=== PATIENT | female | born 1950 | race Caucasian/White ===

== ENCOUNTER 2021-10-03 06:30 | Outpatient (CLI) | payer MEDICARE, OTHER, SELFPAY | END 2021-10-03 06:31 | disposition home or self-care (01) | PROVIDERS: PCP Internal Medicine; Visit Provider Family Medicine | DX: M54.16 Radiculopathy, lumbar region (principal); M51.36 Other intervertebral disc degeneration, lumbar region | CPT/HCPCS: 64483; J1100; Q9966 ==

== ENCOUNTER 2021-10-13 13:42 | Outpatient (CLI) | payer MEDICARE, OTHER, SELFPAY ==
[2021-10-13 15:04] LABS: Cholesterol* 183 mg/dL (90-199)
[2021-10-13 15:05] LABS: HDL Cholesterol* 56 mg/dL (>=50); LDL Cholesterol Calculated 109 mg/dL (<100); Triglycerides* 91 mg/dL (40-149)
== END 2021-10-13 13:43 | disposition home or self-care (01) ==
LOC: NFLDREF 13:42
PROVIDERS: PCP Internal Medicine; Visit Provider Internal Medicine
DX: Z13.6 Encounter for screening for cardiovascular disorders (principal)
CPT/HCPCS: 80061

== ENCOUNTER 2021-12-29 12:54 | Outpatient (CLI) | payer MEDICARE, OTHER, SELFPAY ==
--- OUTSIDE RECORDS SUMMARY | 2022-01-02 14:24 | XMS_ITS | Encounter Summary ---
:1950 Author Organization [facility] Address [address] [place] [address] Care Team Providers Name Role Phone Unavailable Primary Care Provider Unavailable Reason for Visit Radiation Therapy (Routine) - Closed Specialty Diagnoses / Procedures Referred By Contact Refer red To Contact Diagnoses Malignant Neoplasm Of Lung Upper Lobe Or Bronchus Left (HCC) Aleta Santana M.D. [facility] Procedures Prior Auth Rad Tx [place] IMRT COMPLEX [address] [place] [phone] Referral ID Status Reason Start Date Expiration Date Visits Requ ested Visits Authorized [id number] Closed 12/23/2020 12/11/2021 30 30 Encounter Details Date Type Department Care Team Description 01/23/2021 Hospital Encounter Department of Radiation John Santana I., Oncology [place] [address] [place] [address] 1821 [place] [phone] [phone] Social History Tobacco Use Types Packs/Day Years Used Date Smoking Tobacco: Never Assessed Alcohol Habits Answer Date Recorded How often do you have a drink containing alcohol? Never 12/24/2020 How many drinks containing alcohol do you have on a typical Not asked day when you are drinking? How often do you have six or more drinks on one occasion? No t asked Social Isolation Answer Date Recorded In a typical week, how many times do you More than three josé es a week 12/24/2020 talk on the phone with family, friends, or neighbors? How often do you get together with friends Once a week 12/24/2020 or relatives? How often do you attend temple or More than 4 times per year 12/24/2020 episcopalian services? Do you belong to any clubs or No 12/24/2020 organizations such as temple groups, unions, fraternal or athletic groups, or school groups? How often do you attend meetings of the Never 12/24/2020 clubs or organizations you belong to? Are you now , , , 12/24/2020 , never or living with a partner? Physical Activity Answer Date Recorded On average, how many days per week do you engage in moderate to 3 days 12/24/2020 strenuous exercise (like walking fast, running, jogging, dancing, swimming, biking, or other activities that cause a light or heavy sweat)? On average, how many minutes do you engage in exercise at th is 20 min 12/24/2020 level? Stress Answer Date Recorded Do you feel stress - tense, restless, nervous, or anxious, N ot at all 12/24/2020 or unable to sleep at night because your mind is troubled all the time - these days? Financial Resource Strain Answer Date Recorded How hard is it for you to pay for the very basics like Not h noreen at all 12/24/2020 food, housing, medical care, and heating? Food Insecurity Answer Date Recorded Within the past 12 months, you worried that your food would Never true 12/24/2020 run out before you got money to buy more. Within the past 12 months, the food you bought just didn't N ever true 12/24/2020 last and you didn't have money to get more. Transportation Needs Answer Date Recorded In the past 12 months, has lack of transportation kept you f rom No 12/24/2020 medical appointments or from getting medications? In the past 12 months, has lack of transportation kept you f rom No 12/24/2020 meetings, work, or getting things needed for daily living? Housing Stability Answer Date Recorded In the last 12 months, was there a time when you were not ab le No 12/24/2020 to pay the mortgage or rent on time? In the last 12 months, how many places have you lived? 1 12/24/2020 In the last 12 months, was there a time when you did not hav e a No 12/24/[address] to sleep or slept in a half-way (including now)? Education Answer Date Recorded What is the highest level of school Associate degree: [employer], 12/20/2020 you have completed or the highest technical, or vocational p heather degree you have received? Sex Assigned at Date Recorded Female 12/06/2020 4:25 PM CDT documented as of this encounter Medications at Time of Discharge Medication Sig Dispensed Refills Start Date End Date amoxicillin (AMOXIL) 500 mg 0 12/13/19 21 capsule dexAMETHasone (DECADRON) 4 Currently taking qd 0 12/19/2020 mg tablet odstfvqoqdtmamy-btmazqjhp-f Apply 15 mL to the 480 mL 0 01/16/2021 ntacid (MAGIC MOUTHWASH) mouth or throat 4 1:1:1 (four) times a day before meals and bedtime. Swish and swallow. ibuprofen (ADVIL,MOTRIN) Take 800 mg by 0 014 200 mg tablet mouth. lidocaine-prilocaine (EMLA) 0 12/25/19 21 2.5-2.5 % cream LORazepam (ATIVAN) 0.5 mg 0 12/18/2020 tablet multivitamin (multivitamin) Take 1 tablet by 0 tablet mouth daily. prochlorperazine 0 12/18/2020 (COMPAZINE) 5 mg tablet sennosides (senna) 8.6 mg Take 8.6 mg by mouth 0 tablet daily. documented as of this encounter Plan of Treatment Not on filedocumented as of this encounter Visit Diagnoses Not on filedocumented in this encounter
--- OUTSIDE RECORDS SUMMARY | 2022-01-02 14:24 | XMS_ITS | Encounter Summary ---
:1950 Author Organization [facility] Address [address] [place] [address] Care Team Providers Name Role Phone Unavailable Primary Care Provider Unavailable Reason for Visit Radiation Therapy (Routine) - Closed Specialty Diagnoses / Procedures Referred By Contact Refer red To Contact Diagnoses Malignant Neoplasm Of Lung Upper Lobe Or Bronchus Left (HCC) Aleta Santana M.D. [facility] Procedures Prior Auth Rad Tx [place] IMRT COMPLEX [address] [place] [phone] Referral ID Status Reason Start Date Expiration Date Visits Requ ested Visits Authorized [id number] Closed 12/23/2020 12/11/2021 30 30 Encounter Details Date Type Department Care Team Description 01/14/2021 Hospital Encounter Department of Radiation John Santana I., [place]cology [place] [address] [place] [address] 1821 [place] [phone] Social History Tobacco Use Types Packs/Day Years [...] or relatives? How often do you attend voodoo or More than 4 times per year 12/24/2020 moravian services? Do you belong to any clubs or No 12/24/2020 organizations such as voodoo groups, unions, fraternal or athletic groups, or [...] place to sleep or slept in a assisted (including now)? Education Answer Date Recorded What [...] Currently taking qd 0 12/19/2020 mg tablet ibuprofen (ADVIL,MOTRIN) Take 800 mg by 0 [...]
--- OUTSIDE RECORDS SUMMARY | 2022-01-02 14:24 | XMS_ITS | Encounter Summary ---
:1950 Author Organization [facility] Address [address] [place] [address] Care Team Providers Name Role Phone Unavailable Primary Care Provider Unavailable Reason for Visit Radiation Therapy (Routine) - Closed Specialty Diagnoses / Procedures Referred By Contact Refer red To Contact Diagnoses Malignant Neoplasm Of Lung Upper Lobe Or Bronchus Left (HCC) Aleta Santana M.D. [facility] Procedures Prior Auth Rad Tx [place] IMRT COMPLEX [address] [place] [phone] Referral ID Status Reason Start Date Expiration Date Visits Requ ested Visits Authorized [id number] Closed 12/23/2020 12/11/2021 30 30 Encounter Details Date Type Department Care Team Description 01/29/2021 Hospital Encounter Department of Radiation John Santana I., [place]cology [place] [address] [place] [address] 1821 [place] [phone] Social History Tobacco Use Types Packs/Day Years [...] or relatives? How often do you attend adventism or More than 4 times per year 12/24/2020 christian services? Do you belong to any clubs or No 12/24/2020 organizations such as adventism groups, unions, fraternal or athletic groups, or [...] place to sleep or slept in a retirement (including now)? Education Answer Date Recorded What [...] Currently taking qd 0 12/19/2020 mg tablet xxfinutyeuxhbfv-kcumlqjdh-h Apply 15 mL to the 480 mL [...]
--- OUTSIDE RECORDS SUMMARY | 2022-01-02 14:24 | XMS_ITS | Encounter Summary ---
:1950 Author Organization [facility] Address [address] [place] [address] Care Team Providers Name Role Phone Unavailable Primary Care Provider Unavailable Reason for Visit Radiation Therapy (Routine) - Closed Specialty Diagnoses / Procedures Referred By Contact Refer red To Contact Diagnoses Malignant Neoplasm Of Lung Upper Lobe Or Bronchus Left (HCC) Aleta Santana M.D. [facility] Procedures Prior Auth Rad Tx [place] IMRT COMPLEX [address] [place] [phone] Referral ID Status Reason Start Date Expiration Date Visits Requ ested Visits Authorized [id number] Closed 12/23/2020 12/11/2021 30 30 Encounter Details Date Type Department Care Team Description 01/31/2021 Hospital Encounter Department of Radiation John Santana I., [place]cology [place] [address] [place] [address] 1821 [place] [phone] [phone] Social History Tobacco Use Types Packs/Day Years [...] or relatives? How often do you attend anabaptist or More than 4 times per year 12/24/2020 jew services? Do you belong to any clubs or No 12/24/2020 organizations such as anabaptist groups, unions, fraternal or athletic groups, or [...] place to sleep or slept in a intermediate (including now)? Education Answer Date Recorded What [...] Currently taking qd 0 12/19/2020 mg tablet csucdbzykecxgmt-tblsikkae-g Apply 15 mL to the 480 mL [...]
--- OUTSIDE RECORDS SUMMARY | 2022-01-02 14:24 | XMS_ITS | Encounter Summary ---
:1950 Author Organization [facility] Address [address] [place] [address] Care Team Providers Name Role Phone Unavailable Primary Care Provider Unavailable Reason for Referral Radiation Therapy (Routine) - Closed Specialty Diagnoses / Procedures Referred By Contact Refer red To Contact Diagnoses Malignant Neoplasm Of Lung Upper Lobe Or Bronchus Left (HCC) Aleta Santana M.D. [facility] Procedures Management Visit [address] [place] [phone] Referral ID Status Reason Start Date Expiration Date Visits Requ ested Visits Authorized [id number] Closed 12/11/2020 12/11/2021 10 10 Reason for Visit Radiation Therapy (Routine) - Closed Specialty Diagnoses / Procedures Referred By Contact Refer red To Contact Diagnoses Malignant Neoplasm Of Lung Upper Lobe Or Bronchus Left (HCC) Altea Santana M.D. [facility] Procedures Management Visit [address] [place] [phone] Referral ID Status Reason Start Date Expiration Date Visits Requ ested Visits Authorized [id number] Closed 12/11/2020 12/11/2021 10 10 Encounter Details Date Type Department Care Team Description 01/16/2021 Hospital Encounter Department of Aleta Santana Neoplasm Radiation Oncology [place] Of Lung Upper Lobe in [place], [address] [facility] Or Bronchus Left [place], [place] (HCC) [address] [facility] [address] [place], [place] [phone] (Work) [phone] Social History Tobacco Use Types Packs/Day Years [...] or relatives? How often do you attend mosque or More than 4 times per year 12/24/2020 mormon services? Do you belong to any clubs or No 12/24/2020 organizations such as mosque groups, unions, fraternal or athletic groups, or [...] place to sleep or slept in a nursing home (including now)? Education Answer Date Recorded What [...] Currently taking qd 0 12/19/2020 mg tablet tllkpobnazqdexq-xtknzbjca-x Apply 15 mL to the 480 mL [...] tablet daily. documented as of this encounter Progress Notes Aleta Santana M.D. - 01/16/2021 3:30 PM CDT ATTESTATION FOR MANAGEMENT VISIT I saw and evaluated the patient and participated in the hayes portions of the service as noted below. I reviewed the documentation of Ms. Minnie Love RN and agree with the findings and plan. The patient appears well on exam. We will continue with radiation as planned and monitor weekly. She will try Magic Mouthwash and if this doesn't help she will let us know tomorrow. Aleta Santana M.D., 01/16/2021 SUBJECTIVE REASON FOR VISIT Evaluation for side effects while receiving radiation treatment for 1. 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 Santana HISTORY OF PRESENT ILLNESS Maria Del Carmen Wells is a 70 y.o. female with metastatic non small cell lung cancer, metastatic to brain. She is now undergoing radiotherapy to the tumor in the left upper lung and hilum. She is receiving concurrent paclitaxel and carboplatin weekly under the care of Dr. Box at [facility]. Treatment Course: 1x L lung Plan ID Fractions Dose / Fraction (cGy) Dose Treated (cGy) Dose Planned (cGy) First Treatment Last Treatment Elapsed Days F1 L lung 200 3800 6000 12/23/2020 01/16/2021 Course Summary 12/23/2020 01/16/2021 24 The patient was seen and examined today with Dr. Santana. The patient reports an increase in heart burn that is keeping her from getting a good night rest. When she is awake in the night she tries to take TUMS but has noticed that this is not helping any longer. She does not know how many TUMS she takes and reports that she has a bowl at her bedside and takes them as needed. She continues to have hiccups with the heartburn as well. She rates esophagal pain at a 4 out of 10. She denies nausea, vomiting, neurological changes, shortness of breath, fevers or chills. She is taking tylenol once in the morning for back/shoulder pain. She has started a soft blanddiet and is now adding protein shakes. PATIENT REPORTED SYMPTOM SCREEN PAIN (Scale: 0 = no pain; 10 = worst pain you can imagine): 4 OBJECTIVE PHYSICAL EXAM General: Alert and oriented in no apparent distress. 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 Santana to help with the heartburn. Dr. Santana will send prescription for Magic Mouthwash to patients preferred pharmacy. Patient was encouraged to take the Magic Mouthwash prior to meals and at bedtime to help with the heartburn as well. She can trial 1000 mg of Extra Strength Tylenol every 6 hours as needed (wait 30 minutes and then have her meal) for more optimal pain improvement. She was encouaged to continue to drink fluids throughout the day and supplemental shakes as needed to meet caloric needs. Patient was also encouraged to continue light exercise for 30 minutes a day and limit length of naps to help with more restful night time sleep. Chemotherapy was administered today. She will contact us with any questions or concerns. We will continue with radiation treatment as planned. Signed by: Minnie Love R.N. 01/16/2021 4:15 PM CDT documented in this encounter Plan of Treatment Scheduled Orders Name Type Priority Associated Diagnoses Order S chedule Management Visit Radiation Oncology Routine Malignant Neoplasm Once for 1 Of Lung Upper Lobe Occurrenc es starting Or Bronchus Left 01/16/2021 until (HCC) 01/16/2021 documented as of this encounter Visit Diagnoses Diagnosis 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
--- OUTSIDE RECORDS SUMMARY | 2022-01-02 14:24 | XMS_ITS ---
:1950 Author Organization [facility] Address [address] [place] [address] Care Team Providers Name Role Phone Unavailable Primary Care Provider Unavailable Active Problems Problem Noted Date Malignant Neoplasm Of Lung Upper Lobe Or Bronchus Left 12/10/2020 Cancer Staging: Clinical stage from 11/05: Stage IV (cT2a, cN2, cM1) - Unsigned Current Oncology Plans No current plan information found. Past Plans No past plan information found. Radiation Treatments Plan Last Treated Elapsed Days Fractions Prescribed Prescribed Total On Treated Fraction Dose Dose F1 L lung 01/31/2021 39 30 of 30 200 cGy 6,000 cGy Reference Point Last Treated On Elapsed Days Session Dose Total Dos e [id number] 01/31/2021 39 200 cGy 6,000 cGy
--- OUTSIDE RECORDS SUMMARY | 2022-01-02 14:24 | XMS_ITS | Encounter Summary ---
:1950 Author Organization [facility] Address [address] [place] [address] Care Team Providers Name Role Phone Unavailable Primary Care Provider Unavailable Reason for Visit Radiation Therapy (Routine) - Closed Specialty Diagnoses / Procedures Referred By Contact Refer red To Contact Diagnoses Malignant Neoplasm Of Lung Upper Lobe Or Bronchus Left (HCC) Aleta Santana M.D. [facility] Procedures Prior Auth Rad Tx [place] IMRT COMPLEX [address] [place] [phone] Referral ID Status Reason Start Date Expiration Date Visits Requ ested Visits Authorized [id number] Closed 12/23/2020 12/11/2021 30 30 Encounter Details Date Type Department Care Team Description 01/24/2021 Hospital Encounter Department of Radiation John Santana I., [place]cology [place] [address] [place] [address] 1821 [place] [phone] [phone] Social History Tobacco Use Types Packs/Day Years [...] or relatives? How often do you attend confucianist or More than 4 times per year 12/24/2020 baptist services? Do you belong to any clubs or No 12/24/2020 organizations such as confucianist groups, unions, fraternal or athletic groups, or [...] Currently taking qd 0 12/19/2020 mg tablet waicpwxtkbptgbv-vzgejafup-v Apply 15 mL to the 480 mL [...]
--- OUTSIDE RECORDS SUMMARY | 2022-01-02 14:24 | XMS_ITS | Encounter Summary ---
:1950 Author Organization [facility] Address [address] [place] [address] Care Team Providers Name Role Phone Unavailable Primary Care Provider Unavailable Reason for Visit Radiation Therapy (Routine) - Closed Specialty Diagnoses / Procedures Referred By Contact Refer red To Contact Diagnoses Malignant Neoplasm Of Lung Upper Lobe Or Bronchus Left (HCC) Aleta Santana M.D. [facility] Procedures Prior Auth Rad Tx [place] IMRT COMPLEX [address] [place] [phone] Referral ID Status Reason Start Date Expiration Date Visits Requ ested Visits Authorized [id number] Closed 12/23/2020 12/11/2021 30 30 Encounter Details Date Type Department Care Team Description 01/17/2021 Hospital Encounter Department of Radiation John Santana I., [place] [address] [place] [address] 1821 [place] [phone] [phone] Social History Tobacco Use Types Packs/Day Years [...] or relatives? How often do you attend zoroastrianism or More than 4 times per year 12/24/2020 sabianist services? Do you belong to any clubs or No 12/24/2020 organizations such as zoroastrianism groups, unions, fraternal or athletic groups, or [...] place to sleep or slept in a long-term (including now)? Education Answer Date Recorded What [...] Currently taking qd 0 12/19/2020 mg tablet [id number]-stqdgqntd-e Apply 15 mL to the 480 mL [...]
--- OUTSIDE RECORDS SUMMARY | 2022-01-02 14:24 | XMS_ITS | Encounter Summary ---
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 [facility] Procedures Prior Auth Rad Tx [place] IMRT COMPLEX [address] [place] [phone] Referral ID Status Reason Start Date Expiration Date Visits Requ ested Visits Authorized [id number] Closed 12/23/2020 12/11/2021 30 30 Encounter Details Date Type Department Care Team Description 01/10/2021 Hospital Encounter Department of Radiation John Santana I., [place] [address] [place] [address] 1821 [place] [phone] [phone] Social History Tobacco Use Types Packs/Day Years [...] or relatives? How often do you attend sabianist or More than 4 times per year 12/24/2020 pentecostalism services? Do you belong to any clubs or No 12/24/2020 organizations such as sabianist groups, unions, fraternal or athletic groups, or [...] place to sleep or slept in a chcf (including now)? Education Answer Date Recorded What [...]
--- OUTSIDE RECORDS SUMMARY | 2022-01-02 14:24 | XMS_ITS | Encounter Summary ---
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 [facility] Procedures Management Visit [address] [place] [phone] Referral ID Status Reason Start Date Expiration Date Visits Requ ested Visits Authorized [id number] Closed 12/11/2020 12/11/2021 10 10 Encounter Details Date Type Department Care Team Description 01/14/2021 Hospital Encounter Department of Aleta Santana Neoplasm Radiation Oncology Catalina Muhammad Of Lung Upper Lobe in [place], [address] [place] [address] Or Bronchus Left [place], [place] (HCC) [address] [facility] [address] [place], [place] [phone] (Work) [phone] Social History Tobacco Use Types Packs/Day Years [...] or relatives? How often do you attend mu-ism or More than 4 times per year 12/24/2020 nondenominational services? Do you belong to any clubs or No 12/24/2020 organizations such as mu-ism groups, unions, fraternal or athletic groups, or [...] place to sleep or slept in a prison (including now)? Education Answer Date Recorded What is the highest level of school Associate degree: [employer], 12/20/2020 you have completed or the highest technical, or vocational p heather degree you have received? Sex Assigned at Date Recorded Female 12/06/2020 4:25 PM CDT documented as of this encounter Last Filed Vital Signs Vital Sign Reading Time Taken Comments Blood Pressure 115/60 01/14/2021 11:04 AM CDT Pulse 57 01/14/2021 11:04 AM CDT Temperature 36.2 ??C (97.1 ??F) 01/14/2021 11:04 AM CDT Respiratory Rate - - Oxygen Saturation - - Inhaled Oxygen Concentration - - Weight 89.2 kg (196 lb 10.4 oz) 01/14/2021 11:04 AM CDT Height - - Body Mass Index 35.06 12/11/2020 2:01 PM CDT documented in this encounter Medications at Time of Discharge [...] encounter Progress Notes Aleta Santana M.D. - 01/14/2021 11:00 AM CDT ATTESTATION FOR MANAGEMENT VISIT I saw and evaluated the patient and participated in the hayes portions of the service as noted below. I reviewed the documentation of Ms. Pat Hendrickson RN and agree with the findings and plan. The patient appears well on exam. We will continue with radiation as planned and monitor weekly. Aleta Santana M.D., 01/14/2021 SUBJECTIVE REASON FOR VISIT Evaluation for side [...] under the care of Dr. Box at [facility]. Treatment Course: 1x L lung Plan ID Fractions Dose / Fraction (cGy) Dose Treated (cGy) Dose Planned (cGy) First Treatment Last Treatment Elapsed Days F1 L lung 200 3400 6000 12/23/2020 01/14/2021 Course Summary 12/23/2020 01/14/2021 The patient was seen and examined today with Dr. Santana. The patient reports 0 out of 10 headache that is focused behind the right eye. Headache has improvedoverall since starting Dexamethasone. She is now down 2 mg daily. She denies nausea, vomiting, neurological changes, shortness of breath, fevers or chills.. She notices occasional heartburn/hiccups that is being well managed with TUMS. She rates esophagal pain at a 3 out of 10. She is not taking pain medicine at this time. She is cutting her food well, chewing well and taking in softer foods. She does report decrease in bilateral hand strength over the past few weeks. PATIENT REPORTED SYMPTOM SCREEN FATIGUE (Scale: 0 = no fatigue; 10 = worst fatigue you can imagine): 3 PAIN (Scale: 0 = no pain; 10 = worst pain you can imagine): ok OVERALL QUALITY OF LIFE (Scale: 0 = as bad as can be; 10 = as good as can be): 10 OBJECTIVE BP 115/60 (BP Location: Right arm, Patient Position: Sitting, Cuff Size: Small) Pulse (!) 57 Temp 36.2 ??C (Temporal) Wt 89.2 kg BMI 35.06 kg/m?? PHYSICAL EXAM General: Alert and oriented in no apparent distress. ASSESSMENT / PLAN #1 Stage IV (cT2a, [...] 2021 along with weekly paclitaxel and carboplatin Patient's weight remains stable. She can trial 1000 mg of Extra Strength Tylenol every 6 hours as needed (wait 30 minutes and then have her meal) for more optimal pain improvement. Chemotherapy is administered on . She will contact us with any questions or concerns. We will continue with radiation treatment as planned. Signed by: Pat Hendrickson R.N. 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
--- OUTSIDE RECORDS SUMMARY | 2022-01-02 14:24 | XMS_ITS | Encounter Summary ---
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 [facility] Procedures Management Visit [address] [place] [address] [phone] Referral ID Status Reason Start Date Expiration Date Visits Requ ested Visits Authorized [id number] Closed 12/11/2020 12/11/2021 10 10 Encounter Details Date Type Department Care Team Description 01/29/2021 Hospital Encounter Department of Aleta Santana Neoplasm Radiation Oncology Catalina Muhammad Of Lung Upper Lobe in [place], [address] [place] [address] Or Bronchus Left [place], [place] (HCC) 1821 [facility] [address] [place], [place] [phone] (Work) [phone] Social History Tobacco Use Types Packs/Day Years [...] or relatives? How often do you attend evangelical or More than 4 times per year 12/24/2020 gnosticism services? Do you belong to any clubs or No 12/24/2020 organizations such as evangelical groups, unions, fraternal or athletic groups, or [...] Sign Reading Time Taken Comments Blood Pressure 131/67 01/29/2021 11:10 AM CINDER CRUSHER OPERATOR Pulse 71 01/29/2021 11:10 AM CINDER CRUSHER OPERATOR Temperature 36.3 ??C (97.3 ??F) 01/29/2021 11:10 AM CINDER CRUSHER OPERATOR Respiratory Rate - - Oxygen Saturation - - Inhaled Oxygen Concentration - - Weight 91.7 kg (202 lb 2.6 oz) 01/29/2021 11:10 AM CINDER CRUSHER OPERATOR Height - - Body Mass Index 36.05 12/11/2020 2:01 PM CDT documented in this encounter Medications at Time of Discharge Medication Sig Dispensed Refills Start Date End Date amoxicillin (AMOXIL) 500 mg 0 12/13/19 21 capsule dexAMETHasone (DECADRON) 4 Currently taking qd 0 12/19/2020 mg tablet qlqwcphpggbzoyk-oexojuahu-s Apply 15 mL to the 480 mL [...] encounter Progress Notes Aleta Santana M.D. - 01/29/2021 11:00 AM CST ATTESTATION FOR MANAGEMENT VISIT I saw and evaluated the patient and participated in the hayes portions of the service as noted below. I reviewed the documentation of Ms. Pat Hendrickson RN and agree with the findings and plan. The patient appears well on exam. We will continue with radiation as planned and we anticipate that she will complete this treatment. We anticipate that Maria Del Carmen Wells will complete radiation treatment as planned without interruptions. The course of treatment was tolerated well. The patient experienced toxicities of grade 1 esophagitis and fatigue during radiation treatment. Follow-up will be with Dr. Box. We will leave follow-ups with me on an as needed basis. Their questions were answered, and they were comfortable with this plan. Aleta Santana M.D., 01/29/2021 SUBJECTIVE REASON FOR VISIT Evaluation for side effects while receiving radiation treatment for 1. 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 Santana. HISTORY OF PRESENT ILLNESS Maria Del Carmen Wells is a 70 y.o. female with metastatic non small cell lung cancer, metastatic to brain. She is now undergoing radiotherapy to the tumor in the left upper lung and hilum. She is receiving concurrent paclitaxel and carboplatin weekly under the care of Dr. Box at [facility]. Treatment Course: 1x L lung Plan ID Fractions Dose / Fraction (cGy) Dose Treated (cGy) Dose Planned (cGy) First Treatment Last Treatment Elapsed Days F1 L lung 200 5600 6000 12/23/2020 01/29/2021 37 Course Summary 12/23/2020 01/29/2021 37 Her oncologic history was reviewed with the patient and her son and is as follows: 1. October 03, 2020 through October 06, 2020: ??The patient presented to the [facility] ED with a2 day history of painful red swollen right neck and cheek. ??CT scan of the neck demonstrated findings most compatible with extensive right-sided parotitis. ??There was also a spiculated mass within the left upper lobe measuring 21 x 26 mm, concerning for neoplasm. ??She was treated with IV vancomycinand ceftriaxone. ??She was discharged on oral antibiotics, Augmentin. 2. October 05, 2020: ??CT scan of the chest demonstrated a 2.4 x 2 cm soft tissue density nodule with spiculated margin in the left upper lobe. ??5 mm triangular shaped nodular density along the minor fissure. ??4 mm noncalcified subpleural nodule in the posterior lateral right lower lobe. ??Few mildly enlarged left hilar lymph nodes measuring up to 12 mm. ??No other enlarged lymph nodes. ??2.5 cm left renal cyst. ?? 3. October 11, 2020: ??PET-CT scan demonstrated an FDG avid spiculated nodule in the periphery left upper lobe tethering the visceral pleural measuring 2.2 x 1.5 cm (SUV max 13.2) with FDG avid left interlobar station 11/12L (SUV mas 17.4) and subaortic station 5 (SUV max 11.7) lymph nodes suspicious forleft upper lobe primary lung neoplasm with lymph node metastases. 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 4. October 23, 2020: ??Bronchoscopy was performed by Dr. Sheldon Dominguez. ??The trachea was of normal caliber. ??The bethanie was sharp. ??The tracheobronchial tree was examined and the bronchial mucosa and anatomy were normal. ??There were no lesions or secretions. ??Lymph node survey with EBUS was performed. ??EBUS- TBNA x 3 to a well-defined 1cm station 11R node, EBUS-TBNA x 4 to a 1.5cm oblong station7 node, EBUS-TBNA x 8 to a deep GIANACRLO station 11L node. ??Radial EBUS used to confirm lymph node position and also localize the GIANCARLO mass and BAL GIANCARLO done. ??Cytology of the left upper lobe of the lung demonstrated rare atypical cells, favor reactive bronchial epithelial cells. ??Cytology of the station 11R and station 7 lymph nodes was negative for malignancy. ??Cytology of the station 11L lymph node demonstrated non-small cell carcinoma. ??TTF-1 was negative. ??P40 was positive in a subset of tumor cells. ??Bronoalveolar lavage was negative for malignant cells. 5. November 05, 2020:?Pulmonary function testing demonstrated FEV1 of 2.33 (118% predicted), FVC 3.08 (112% predicted), and DLCO 22.0 (65% predicted). 6. November 05, 2020: ??MRI of the brain demonstrated a ring-enhancing lesion within the posterior aspect of the right superior frontal gyrus which measured up to 12 mm. ??Central cystic/necrotic change.??Mild surrounding vasogenic edema. ??No other enhancing intracranial lesions. 7. November 08, 2020: ??MRI of the brain demonstrated the ring-enhancing lesion within the posterior aspect of the right superior frontal gyrus measuring 13 x 13 x 12 mm, not significantly changed. ??No new enhancing intracranial lesions. ?? 8. November 26, 2020 through November 29, 2020: ??Stereotactic radiation treatment to the right frontal brain lesion to a dose of 2700 cGy in 3 fractions under the care of Dr. Miguel Wei at [facility]. 9. December 04, 2020: ??Medical Oncology appointment with Dr. Oziel Box who discussed that the hypermetabolic lymph node initially read as a station 5 sub aortic lymph node was further reviewed at tumor Board and it appears to be a station 12L lymph node instead. ??Therefore, the patient has T2a N1 disease according to their board ??He felt that the patient would benefit more from definitive chemoradiation followed by adjuvant durvalumab instead of surgery followed by adjuvant chemotherapy. ??Referral to Radiation Oncology in [place]. ??The patient will keep her appointment next week with Dr. Valadez to discuss surgery. ??If chemoradiation is pursued, would offer weekly carbo/Taxol during radiation followed by adjuvant durvalumab x 1 year. ??Would also consider a CT-guided biopsy of the primary tumor to obtain more tissue for PD-L1 and NGS testing. 10. December 09, 2000: Follow-up visit with Dr. Valadez who per patient agreed with a non-surgical approach. I have not seen his note. 11. December 12, 2020: ??PET/CT scan scheduled for tomorrow. 12. December 23, 2020 anticipated through January 31, 2021: Patient treated with intensity modulatedradiotherapy to the tumor in the left tumor in the left upper lung and hilum to a dose of 6000 cGy in 30 fractions. The patient was seen and examined today with Dr. Santana. Patient is taking Magic Mouthwash at bedtime and Prilosec daily and reports that this calms down heartburn significantly. She reports mild dysphagia. Patient denies constipation, diarrhea, esophagitis,fevers, chills, nausea, vomiting, shortness of breath or skin changes to the chest region. She is eating and drinking quite well. Her notices that patient has a dry cough at night time. She hasnoticed nocturia 3-4 times a night that past few weeks. She has increased her fluid intake significantly since starting chemotherapy. She denies hematuria, dysuria or foul smelling urine. She does notice intermittent brief headaches to the back of her head that she manages with 3 Ibuprofen every other day. She notes that Dr. Box discontinued her Dexamethasone last week. Fuentes rates her headache april 5 out of 10. PATIENT REPORTED SYMPTOM SCREEN PAIN (Scale: 0 = no pain; 10 = worst pain you can imagine): 5 FATIGUE: 5 QUALITY OF LIFE: 9 OBJECTIVE Vitals: 01/29/21 1110 BP: 131/67 Pulse: 71 Temp: 36.3 ??C PHYSICAL EXAM General: Alert and oriented in [...] with weekly paclitaxel and carboplatin Patient's weight is stable. She has blood work and chemotherapy administration on . She will have her last dose of chemotherapy and visit with her Medical Oncology team tomorrow. Patient will follow up with Medical Oncology going forward. We will not order formal follow up in Radiation Oncology Clinic. I reviewed potential late term side effect of radiation pneumonitis today with patient. Acute side effects from radiation therapy should start to heal in the coming weeks. She will contact uswith any questions or concerns. We will continue with radiation treatment as planned. Patient stateda full understanding to the plan of care discussed today. Toxicities reviewed with Dr. Santana today. Signed by: Pat Hendrickson R.N. 01/29/2021 12:39 PM CINDER CRUSHER OPERATOR ER CRUSHER OPERATOR documented in this encounter Miscellaneous Notes Addendum Note - Nadira Capone, C.N.A. 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
--- OUTSIDE RECORDS SUMMARY | 2022-01-02 14:24 | XMS_ITS | Encounter Summary ---
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 [facility] Procedures Prior Auth Rad Tx [place] IMRT COMPLEX [address] [place] [phone] Referral ID Status Reason Start Date Expiration Date Visits Requ ested Visits Authorized [id number] Closed 12/23/2020 12/11/2021 30 30 Encounter Details Date Type Department Care Team Description 01/28/2021 Hospital Encounter Department of Radiation John Santana I., [place] [address] [place] [address] 1821 [place] [phone] Social History Tobacco Use Types Packs/Day Years [...] or relatives? How often do you attend sikhism or More than 4 times per year 12/24/2020 adventist services? Do you belong to any clubs or No 12/24/2020 organizations such as sikhism groups, unions, fraternal or athletic groups, or [...] place to sleep or slept in a alf (including now)? Education Answer Date Recorded What [...] Currently taking qd 0 12/19/2020 mg tablet dahtziwbwdkirie-orioyarpy-y Apply 15 mL to the 480 mL [...]
--- OUTSIDE RECORDS SUMMARY | 2022-01-02 14:24 | XMS_ITS | Encounter Summary ---
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 [facility] Procedures Prior Auth Rad Tx [place] IMRT COMPLEX [address] [place] [phone] Referral ID Status Reason Start Date Expiration Date Visits Requ ested Visits Authorized [id number] Closed 12/23/2020 12/11/2021 30 30 Encounter Details Date Type Department Care Team Description 01/21/2021 Hospital Encounter Department of Radiation John Santana I., [place] [address] [place] [address] 1821 [place] [phone] Social History Tobacco Use Types Packs/Day Years [...] or relatives? How often do you attend jewish or More than 4 times per year 12/24/2020 denominational services? Do you belong to any clubs or No 12/24/2020 organizations such as jewish groups, unions, fraternal or athletic groups, or [...] place to sleep or slept in a mcc (including now)? Education Answer Date Recorded What [...] Currently taking qd 0 12/19/2020 mg tablet xgilpgkhxfvvhfb-ojlsbmwhs-n Apply 15 mL to the 480 mL [...]
--- OUTSIDE RECORDS SUMMARY | 2022-01-02 14:24 | XMS_ITS | Encounter Summary ---
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 [facility] Procedures Prior Auth Rad Tx [place] IMRT COMPLEX [address] [place] [phone] Referral ID Status Reason Start Date Expiration Date Visits Requ ested Visits Authorized [id number] Closed 12/23/2020 12/11/2021 30 30 Encounter Details Date Type Department Care Team Description 01/13/2021 Hospital Encounter Department of Radiation John Santana I., [place] [address] [place] [address] 1821 [place] [phone] [phone] Social History Tobacco Use Types Packs/Day Years [...] or relatives? How often do you attend congregation or More than 4 times per year 12/24/2020 restorationism services? Do you belong to any clubs or No 12/24/2020 organizations such as congregation groups, unions, fraternal or athletic groups, or [...]
--- OUTSIDE RECORDS SUMMARY | 2022-01-02 14:24 | XMS_ITS | Encounter Summary ---
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 [facility] Procedures Management Visit [address] [place] [address] [phone] Referral ID Status Reason Start Date Expiration Date Visits Requ ested Visits Authorized [id number] Closed 12/11/2020 12/11/2021 10 10 Encounter Details Date Type Department Care Team Description 01/21/2021 Hospital Encounter Department of Susan Santana M.D. [address] [place] [phone] Malignant Neoplasm Radiation Oncology Jj Sheldon M.D. [address] [place] [address] Of Lung Upper Lobe in [place], Or Bronchus L [place] ([facility]) [address] [place] [address] Social History Tobacco Use Types Packs/Day Years [...] or relatives? How often do you attend worship or More than 4 times per year 12/24/2020 catholic services? Do you belong to any clubs or No 12/24/2020 organizations such as worship groups, unions, fraternal or athletic groups, or [...] or the highest technical, or vocational p [facility] degree you have received? Sex Assigned at Date Recorded Female 12/06/2020 4:25 PM CDT documented as of this encounter Last Filed Vital Signs Vital Sign Reading Time Taken Comments Blood Pressure 111/57 01/21/2021 10:57 AM STRIPPER MACHINE OPERATOR Pulse 68 01/21/2021 10:57 AM STRIPPER MACHINE OPERATOR Temperature 36.6 ??C (97.8 ??F) 01/21/2021 10:57 AM STRIPPER MACHINE OPERATOR Respiratory Rate - - Oxygen Saturation 98% 01/21/2021 10:57 AM STRIPPER MACHINE OPERATOR at res t Inhaled Oxygen Concentration - - Weight 91.8 kg (202 lb 6.1 oz) 01/21/2021 10:57 AM STRIPPER MACHINE OPERATOR Height - - Body Mass Index 36.08 12/11/2020 2:01 PM CDT documented in this encounter Medications at Time of Discharge Medication Sig Dispensed Refills Start Date End Date amoxicillin (AMOXIL) 500 mg 0 12/13/19 21 capsule dexAMETHasone (DECADRON) 4 Currently taking qd 0 12/19/2020 mg tablet [id number]-[id number]-n Apply 15 mL to the 480 mL [...] documented as of this encounter Progress Notes Jj Sheldon M.D. - 01/21/2021 11:00 AM CST SUBJECTIVE REASON FOR VISIT Evaluation for side effects while receiving radiation treatment for 1. 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 Sheldon HISTORY OF PRESENT ILLNESS Maria Del Carmen Wells is a 70 y.o. female with metastatic non small cell lung cancer, metastatic to brain. She is now undergoing radiotherapy to the tumor in the left upper lung and hilum. She is receiving concurrent paclitaxel and carboplatin weekly under the care of Dr. Box at [facility]. Treatment Course: 1x L lung Plan ID Fractions Dose / Fraction (cGy) Dose Treated (cGy) Dose Planned (cGy) First Treatment Last Treatment Elapsed Days F1 L lung 200 4400 6000 12/23/2020 01/21/2021 29 Course Summary 12/23/2020 01/21/2021 The patient was seen and examined today with Dr. Sheldon. Patient is taking Magic Mouthwash at bedtime and reports that she no longer experiences heartburn/esophageal pain at night time. She is not taking Tylenol. She feels her heartburn is completing diet related. She denies fevers, chills, nausea, vomiting, shortness of breath, cough or skin changes to thechest region. She is eating and drinking quite well and notices increase in appetite. PATIENT REPORTED SYMPTOM SCREEN PAIN (Scale: 0 = no pain; 10 = worst pain you can imagine): 0 FATIGUE: 5 QUALITY OF LIFE: 7 OBJECTIVE PHYSICAL EXAM General: Alert and oriented in no apparent distress. Skin: slight erythema toned skin the mid back region. ASSESSMENT / PLAN #1 Stage IV (cT2a, [...] and chemotherapy administration on . She will contact us with any questions or concerns. We will continue with radiation treatment as planned. Signed by: Pat Hendrickson R.N. 01/21/2021 12:15 PM STRIPPER MACHINE OPERATOR I saw and evaluated the patient and participated in the hayes portions of the service. I reviewed the documentation of Pat Hendrickson R.N. and agree with the findings and plan. The patient appears well onexam. She is tolerating treatment well. She will continue with treatment as planned. Signed by: Jj Sheldon M.D. 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
--- OUTSIDE RECORDS SUMMARY | 2022-01-02 14:24 | XMS_ITS | Encounter Summary ---
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 [facility] Procedures Management Visit [address] [place] [phone] Referral ID Status Reason Start Date Expiration Date Visits Requ ested Visits Authorized [id number] Closed 12/11/2020 12/11/2021 10 10 Encounter Details Date Type Department Care Team Description 01/08/2021 - Hospital Encounter Department of Leenstra, Malignan t Neoplasm 01/09/2021 Radiation Oncology Jj Car M.D. Of Lung Upper Lobe in [place], [address] [facility] Or Bronchus Left [place], [place] (HCC) [address] [facility] [address] [place], [place] [phone] (Work) [phone] Social History Tobacco Use Types Packs/Day Years [...] or relatives? How often do you attend protestant or More than 4 times per year 12/24/2020 gnosticist services? Do you belong to any clubs or No 12/24/2020 organizations such as protestant groups, unions, fraternal or athletic groups, or [...] Sign Reading Time Taken Comments Blood Pressure 124/70 01/08/2021 11:35 AM CDT Pulse 62 01/08/2021 11:35 AM CDT Temperature 36.2 ??C (97.2 ??F) 01/08/2021 11:35 AM CDT Respiratory Rate - - Oxygen Saturation - - Inhaled Oxygen Concentration - - Weight 86.9 kg (191 lb 9.3 oz) 01/08/2021 11:35 AM CDT Height - - Body Mass Index 34.16 12/11/2020 2:01 PM CDT documented in this [...] encounter Progress Notes Jj Sheldon M.D. - 01/08/2021 11:15 AM CDT SUBJECTIVE REASON FOR VISIT Evaluation for side [...] under the care of Dr. Box at [facility]. Treatment Course: 1x L lung Plan ID Fractions Dose / Fraction (cGy) Dose Treated (cGy) Dose Planned (cGy) First Treatment Last Treatment Elapsed Days F1 L lung 200 2600 6000 12/23/2020 01/08/2021 16 Course Summary 12/23/2020 01/08/2021 16 The patient was seen and examined today with Dr. Sheldon. The patient reports 0 out of 10 headache that is focused behind the right eye. Headache has improvedsince starting Dexamethasone last Wednesday. She is not taking Tylenol or Ibuprofen. Dr. Box has prescribed 2 mg of Dex twice a day. She denies nausea, vomiting, neurological changes, shortness of breath, fevers or chills or swallowing changes. She notices occasional heartburn/hiccups that is being well managed with TUMS. PATIENT REPORTED SYMPTOM SCREEN FATIGUE (Scale: 0 = no fatigue; 10 = worst fatigue you can imagine): 4 PAIN (Scale: 0 = no pain; 10 = worst pain you can imagine): 0 OVERALL QUALITY OF LIFE (Scale: 0 = as bad as can be; 10 = as good as can be): 9 OBJECTIVE BP 124/70 (BP Location: Right arm, Patient Position: Sitting, Cuff Size: Small) Pulse 62 Temp 36.2 ??C (Temporal) Wt 86.9 kg BMI 34.16 kg/m?? PHYSICAL EXAM General: Alert and oriented [...] 2021 along with weekly paclitaxel and carboplatin Dr. Sheldon and I are encouraged to hear patient's right sided orbital headache has improved. Dr. Santana will review follow up plan with patient when she is back in office. Chemotherapy is administered on . She will contact us with any questions or concerns. We will continue with radiation treatment as planned. Signed by: Pat Hendrickson R.N. 01/08/2021 11:56 AM CDT I saw and evaluated the patient and participated in the hayes portions of the service. I reviewed the documentation of Pat Hendrickson R.N. and agree with the findings and plan. The patient appears well onexam. She is tolerating treatment well. She is remaining abstinent from smoking. I encouraged her inthis regard. She will continue with treatment as planned. Signed by: Jj Sheldon M.D. 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
--- OUTSIDE RECORDS SUMMARY | 2022-01-02 14:24 | XMS_ITS | Clinical Summary ---
:1950 Author Organization [facility] Address [address] [place] [address] Care Team Providers Name Role Phone Unavailable Primary Care Provider Unavailable Source Comments Patient records contain information from all sites at [facility]. For routine questions regarding patient records, call [phone] during business hours, M-F 8:00 AM - 5:00 PM Central Time. Record requests for emergency care only can be directed to [phone] at any time.[facility] Allergies Active Allergy Reactions Severity Noted Date Comments Ciprofloxacin Rash Medium 12/15/2017 Nitrofurantoin Monohyd/M-Cryst Hives Medium 09/09/2020 Penicillins Diarrhea Low 06/09/2006 Medications Medication Sig Dispensed Refills Start Date End Date Status ibuprofen (ADVIL,MOTRIN) Take 800 mg by 0 09/22/2013 Active 200 mg tablet mouth. multivitamin Take 1 tablet by 0 Active (multivitamin) tablet mouth daily. dexAMETHasone (DECADRON) Currently taking 0 12/20/19 21 Active 4 mg tablet qd LORazepam (ATIVAN) 0.5 0 12/18/2020 Active mg tablet prochlorperazine 0 12/18/2020 Ac tive (COMPAZINE) 5 mg tablet amoxicillin (AMOXIL) 500 0 12/12/2020 Active mg capsule lidocaine-prilocaine 0 12/24/2020 Active (EMLA) 2.5-2.5 % cream sennosides (senna) 8.6 Take 8.6 mg by 0 Active mg tablet mouth daily. diphenhydramine-lidocain Apply 15 mL to 480 mL 0 01/16/2021 Active e-antacid (MAGIC the mouth or MOUTHWASH) 1:1:1 throat 4 (four) times a day before meals and bedtime. Swish and swallow. Active Problems Problem Noted Date Malignant Neoplasm Of Lung Upper Lobe Or Bronchus Left 12/10/2020 Cancer Staging: Clinical stage from 11/05: Stage IV (cT2a, cN2, cM1) - Unsigned Social History Tobacco Use Types Packs/Day Years [...] or relatives? How often do you attend catholic or More than 4 times per year 12/24/2020 moravian services? Do you belong to any clubs or No 12/24/2020 organizations such as catholic groups, unions, fraternal or athletic groups, or [...] Date Recorded Female 12/06/2020 4:25 PM CDT Last Filed Vital Signs Vital Sign Reading Time Taken Comments Blood Pressure 131/67 01/29/2021 11:10 AM CHARGE HISTOTECHNOLOGIST Pulse 71 01/29/2021 11:10 AM CHARGE HISTOTECHNOLOGIST Temperature 36.3 ??C (97.3 ??F) 01/29/2021 11:10 AM CHARGE HISTOTECHNOLOGIST Respiratory Rate - - Oxygen Saturation 98% 01/21/2021 10:57 AM CHARGE HISTOTECHNOLOGIST at res t Inhaled Oxygen Concentration - - Weight 91.7 kg (202 lb 2.6 oz) 01/29/2021 11:10 AM CHARGE HISTOTECHNOLOGIST Height 159.5 cm (5' 2.8) 12/11/2020 2:01 PM CDT Body Mass Index 36.05 12/11/2020 2:01 PM CDT Plan of Treatment Health Maintenance Due Date Last Done Comments Bone Density Scan (Osteoporosis 1950 Screen) CT Colonography 1950 Cologuard 1950 Colonoscopy 1950 Colorectal Cancer Screening 1950 FIT 1950 Hepatitis C Screening 1950 Mammogram 1950 Zoster Vaccines (1 of 2) 02/20/1968 Fasting Glucose for Diabetes 12/15/2020 12/15/2017 Screening COVID-19 Vaccine (4 - Booster for 02/11/2021 12/17/2020, , Pfizer series) 05/17/2020 Depression Screening (Annual 03/15/2021 PHQ-2) Fall Risk Screen (Annual) 03/15/2021 Influenza Vaccine (#1) 2021 12/16/2020, 12/28/2019, 12/15/2017, Additional history exists DTaP,Tdap,and Td Vaccines (3 - Td 10/15/2030 10/15/2020, or Tdap) Pneumococcal vaccine (65+ years) Completed 12/15/2017, Insurance Payer Benefit Plan / Subscriber ID Effective Phone Address T ype Group Dates MEDICARE MEDICARE A AND [id number] 2015-Prese [address] [place] [address] MEDICA MEDICA PRIME [id number] 2020-Prese [phone] [address] [employer] [address] [place] [address]
--- OUTSIDE RECORDS SUMMARY | 2022-01-02 14:24 | XMS_ITS | Encounter Summary ---
:1950 Author Organization [facility] Address [address] [place] [address] Care Team Providers Name Role Phone Unavailable Primary Care Provider Unavailable Encounter Details Date Type Department Care Team Description 01/31/2021 Documentation Department of Radiation Aleta Santana I., [facility] [place] [address] [facility] [address] [place] [phone] (Wo rk) Social History Tobacco Use Types Packs/Day Years [...] or relatives? How often do you attend hinduism or More than 4 times per year 12/24/2020 protestant services? Do you belong to any clubs or No 12/24/2020 organizations such as hinduism groups, unions, fraternal or athletic groups, or [...] place to sleep or slept in a correction (including now)? Education Answer Date Recorded What is the highest level of school Associate degree: bear jorge, 12/20/2020 you have completed or the highest technical, or vocational p heather degree you have received? Sex Assigned at Date Recorded Female 12/06/2020 4:25 PM CDT documented as of this encounter Miscellaneous Notes Radiation Completion Notes - Julissa Ornelas, R.N. - 01/31/2021 11:59 PM SOLDER TECHNICIAN DIAGNOSIS: 1. 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 Treatment Intent: Curative Concomitant Therapy: Chemotherapy Single Plan Treatment Course: 1x L lung Plan ID Fractions Dose / Fraction (cGy) Dose Treated (cGy) Dose Planned (cGy) First Treatment Last Treatment Elapsed Days F1 L lung 200 6000 6000 12/23/2020 01/31/2021 39 Course Summary 12/23/2020 01/31/2021 39 Radiation Modality: Photons CLINICAL SUMMARY Maria Del Carmen Wells completed radiation treatment as planned without interruptions. The course of treatment was tolerated well. The patient experienced toxicities of grade 1 esophagitis and fatigue duringradiation treatment. TREATMENT RESPONSE: Response to treatment will be determined by post-treatment imaging and/or laboratory work. RECOMMENDED FOLLOW UP: Primary Medical Oncologist. Follow-up will be with Dr. 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
--- OUTSIDE RECORDS SUMMARY | 2022-01-02 14:24 | XMS_ITS | Encounter Summary ---
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 [facility] Procedures Prior Auth Rad Tx [place] IMRT COMPLEX [address] [place] [phone] Referral ID Status Reason Start Date Expiration Date Visits Requ ested Visits Authorized [id number] Closed 12/23/2020 12/11/2021 30 30 Encounter Details Date Type Department Care Team Description 01/15/2021 Hospital Encounter Department of Radiation John Santana I., [place] [address] [place] [address] 1821 [place] [phone] [phone] Social History Tobacco Use Types Packs/Day Years [...] More than 4 times per year 12/24/2020 samaritan services? Do you belong to any clubs [...]
--- OUTSIDE RECORDS SUMMARY | 2022-01-02 14:24 | XMS_ITS | Encounter Summary ---
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 [facility] Procedures Prior Auth Rad Tx [place] IMRT COMPLEX [address] [place] [phone] Referral ID Status Reason Start Date Expiration Date Visits Requ ested Visits Authorized [id number] Closed 12/23/2020 12/11/2021 30 30 Encounter Details Date Type Department Care Team Description 01/30/2021 Hospital Encounter Department of Radiation John Santana I., [place]cology [place] [address] [place] [address] 1821 [place] [phone] [phone] Social History Tobacco Use Types Packs/Day Years [...] or relatives? How often do you attend denominational or More than 4 times per year 12/24/2020 latter-day services? Do you belong to any clubs or No 12/24/2020 organizations such as denominational groups, unions, fraternal or athletic groups, or [...] place to sleep or slept in a residential (including now)? Education Answer Date Recorded What [...] Currently taking qd 0 12/19/2020 mg tablet [id number]-[id number]-[id number] Apply 15 mL to the 480 mL [...]
--- OUTSIDE RECORDS SUMMARY | 2022-01-02 14:24 | XMS_ITS | Encounter Summary ---
:[address] 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 [facility] Procedures Prior Auth Rad Tx [place] IMRT COMPLEX [address] [place] [phone] Referral ID Status Reason Start Date Expiration Date Visits Requ ested Visits Authorized [id number] Closed 12/23/2020 12/11/2021 30 30 Encounter Details Date Type Department Care Team Description 01/09/2021 Hospital Encounter Department of Radiation John Santana I., [place] [address] [place] [address] 1821 [place] [phone] [phone] Social History Tobacco Use Types Packs/Day Years [...] or relatives? How often do you attend yarsani or More than 4 times per year 12/24/2020 congregation services? Do you belong to any clubs or No 12/24/2020 organizations such as yarsani groups, unions, fraternal or athletic groups, or [...] place to sleep or slept in a fci (including now)? Education Answer Date Recorded What [...]
--- OUTSIDE RECORDS SUMMARY | 2022-01-02 14:24 | XMS_ITS | Encounter Summary ---
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 [facility] Procedures Prior Auth Rad Tx [place] IMRT COMPLEX [address] [place] [phone] Referral ID Status Reason Start Date Expiration Date Visits Requ ested Visits Authorized [id number] Closed 12/23/2020 12/11/2021 30 30 Encounter Details Date Type Department Care Team Description 01/16/2021 Hospital Encounter Department of Radiation John Santana I., [place] [address] [place] [address] 1821 [place] [phone] [phone] Social History Tobacco Use Types Packs/Day Years [...] More than 4 times per year 12/24/2020 restoration services? Do you belong to any clubs [...] place to sleep or slept in a usp (including now)? Education Answer Date Recorded What [...]
--- OUTSIDE RECORDS SUMMARY | 2022-01-02 14:24 | XMS_ITS | Encounter Summary ---
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 [facility] Procedures Prior Auth Rad Tx [place] IMRT COMPLEX [address] [place] [phone] Referral ID Status Reason Start Date Expiration Date Visits Requ ested Visits Authorized [id number] Closed 12/23/2020 12/11/2021 30 30 Encounter Details Date Type Department Care Team Description 01/20/2021 Hospital Encounter Department of Radiation John Santana I., Oncology in [place] [address] [place] [address] 1821 [place] [phone] [phone] Social History Tobacco Use Types Packs/Day Years [...] or relatives? How often do you attend latter-day or More than 4 times per year 12/24/2020 gnosticist services? Do you belong to any clubs or No 12/24/2020 organizations such as latter-day groups, unions, fraternal or athletic groups, or [...] Currently taking qd 0 12/19/2020 mg tablet udpsuynckawghfw-qqieevrpk-m Apply 15 mL to the 480 mL [...]
--- OUTSIDE RECORDS SUMMARY | 2022-01-02 14:24 | XMS_ITS | Encounter Summary ---
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 [facility] Procedures Prior Auth Rad Tx [place] IMRT COMPLEX [address] [place] [phone] Referral ID Status Reason Start Date Expiration Date Visits Requ ested Visits Authorized [id number] Closed 12/23/2020 12/11/2021 30 30 Encounter Details Date Type Department Care Team Description 01/22/2021 Hospital Encounter Department of Radiation John Santana I., Oncology in [place] [address] [place] [address] 1821 [place] [phone] [phone] Social History Tobacco Use Types Packs/Day Years [...] or relatives? How often do you attend cheondoism or More than 4 times per year 12/24/2020 confucianist services? Do you belong to any clubs or No 12/24/2020 organizations such as cheondoism groups, unions, fraternal or athletic groups, or [...] Currently taking qd 0 12/19/2020 mg tablet aejbwvmnyltywfg-nslgpgqum-b Apply 15 mL to the 480 mL [...]
--- OUTSIDE RECORDS SUMMARY | 2022-01-02 14:24 | XMS_ITS | Encounter Summary ---
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 [facility] Procedures Prior Auth Rad Tx [place] IMRT COMPLEX [address] [place] [phone] Referral ID Status Reason Start Date Expiration Date Visits Requ ested Visits Authorized [id number] Closed 12/23/2020 12/11/2021 30 30 Encounter Details Date Type Department Care Team Description 01/27/2021 Hospital Encounter Department of Radiation John Santana I., [place]cology [place] [address] [place] [address] 1821 [place] [phone] [phone] Social History Tobacco Use Types Packs/Day Years [...] More than 4 times per year 12/24/2020 bahai services? Do you belong to any clubs [...] Currently taking qd 0 12/19/2020 mg tablet qyrxfiyahxssmse-bormhpbvh-r Apply 15 mL to the 480 mL [...]
--- OUTSIDE RECORDS SUMMARY | 2022-01-02 14:25 | XMS_ITS | Encounter Summary ---
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 [facility] Procedures Prior Auth Rad Tx [place] IMRT COMPLEX [address] [place] [phone] Referral ID Status Reason Start Date Expiration Date Visits Requ ested Visits Authorized [id number] Closed 12/23/2020 12/11/2021 30 30 Encounter Details Date Type Department Care Team Description 12/31/2020 Hospital Encounter Department of Radiation John Santana I., Oncology in [place] [address] [place] [address] 1821 [place] [phone] [phone] Social History Tobacco Use Types Packs/Day Years [...] or relatives? How often do you attend lutheran or More than 4 times per year 12/24/2020 restorationism services? Do you belong to any clubs or No 12/24/2020 organizations such as lutheran groups, unions, fraternal or athletic groups, or [...]
--- OUTSIDE RECORDS SUMMARY | 2022-01-02 14:25 | XMS_ITS | Encounter Summary ---
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 [facility] Procedures Prior Auth Rad Tx [place] IMRT COMPLEX [address] [place] [phone] Referral ID Status Reason Start Date Expiration Date Visits Requ ested Visits Authorized [id number] Closed 12/23/2020 12/11/2021 30 30 Encounter Details Date Type Department Care Team Description 12/27/2020 Hospital Encounter Department of Radiation John Santana I., [place]cology [place] [address] [place] [address] 1821 [place] [phone] [phone] Social History Tobacco Use Types Packs/Day Years [...] or relatives? How often do you attend scientology or More than 4 times per year 12/24/2020 yazdanism services? Do you belong to any clubs or No 12/24/2020 organizations such as scientology groups, unions, fraternal or athletic groups, or [...] the highest level of school Associate degree: uriahgi jorge, 12/20/2020 you have completed or the [...] prochlorperazine 0 12/18/2020 (COMPAZINE) 5 mg tablet documented as of this encounter Plan of Treatment Not on filedocumented as of this encounter Visit Diagnoses Not on filedocumented in this encounter
--- OUTSIDE RECORDS SUMMARY | 2022-01-02 14:25 | XMS_ITS | Encounter Summary ---
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 [facility] Procedures Prior Auth Rad Tx [place] IMRT COMPLEX [address] [place] [phone] Referral ID Status Reason Start Date Expiration Date Visits Requ ested Visits Authorized [id number] Closed 12/23/2020 12/11/2021 30 30 Encounter Details Date Type Department Care Team Description 12/30/2020 Hospital Encounter Department of Radiation John Santana I., Oncology in [place] [address] [place] [address] 1821 [place] [phone] Social History Tobacco Use Types Packs/Day Years [...] or relatives? How often do you attend nondenominational or More than 4 times per year 12/24/2020 islam services? Do you belong to any clubs or No 12/24/2020 organizations such as nondenominational groups, unions, fraternal or athletic groups, or [...]
--- OUTSIDE RECORDS SUMMARY | 2022-01-02 14:25 | XMS_ITS | Encounter Summary ---
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 [facility] Procedures Prior Auth Rad Tx [place] IMRT COMPLEX [address] [place] [phone] Referral ID Status Reason Start Date Expiration Date Visits Requ ested Visits Authorized [id number] Closed 12/23/2020 12/11/2021 30 30 Encounter Details Date Type Department Care Team Description 12/26/2020 Hospital Encounter Department of Radiation John Santana I., Oncology in [place] [address] [place] [address] 1821 [place] [phone] Social History Tobacco Use Types Packs/Day Years [...]
--- OUTSIDE RECORDS SUMMARY | 2022-01-02 14:25 | XMS_ITS | Encounter Summary ---
:1950 Author Organization [facility] Address [address] [place] [address] Care Team Providers Name Role Phone Unavailable Primary Care Provider Unavailable Reason for Referral Specialty Diagnoses / Procedures Referred By Contact Refer red To Contact Aleta Santana M.D. [facility] Region [address] [place] [address] [phone] Referral ID Status Reason Start Date Expiration Date Visits Requ ested Visits Authorized Encounter Details Date Type Department Care Team Description 12/27/2020 Hospital Encounter Department of Susan Santana M.D. [address] [place] [phone] Malignant Neoplasm Radiation Oncology Pat Hendrickson RMariel [address] [place] [address] [phone] Of Lung Upper Lobe in [place], Or Bronchus L [facility] ([facility]) 1821 [place] [address] Social History Tobacco Use Types Packs/Day Years [...] or relatives? How often do you attend roman catholic or More than 4 times per year 12/24/2020 adventist services? Do you belong to any clubs or No 12/24/2020 organizations such as roman catholic groups, unions, fraternal or athletic groups, [...] place to sleep or slept in a custodial (including now)? Education Answer Date Recorded What is the highest level of school Associate degree: bear jorge, 12/20/2020 you have completed or the highest technical, or vocational p heather degree you have received? Sex Assigned at Date Recorded Female 12/06/2020 4:25 PM CDT documented as of this encounter Last Filed Vital Signs Vital Sign Reading Time Taken Comments Blood Pressure - - Pulse - - Temperature - - Respiratory Rate - - Oxygen Saturation - - Inhaled Oxygen Concentration - - Weight 86.4 kg (190 lb 7.6 oz) 12/27/2020 1:00 PM CDT Height - - Body Mass Index 33.96 12/11/2020 2:01 PM CDT documented in this [...] as of this encounter Plan of Treatment Scheduled Referrals Name Type Priority Associated Order Schedule Diagnoses Radiation Oncology Outpatient Referral Routine Malignant Neopl asm Once for 1 - Nurse education Of Lung Upper Lobe Occu rrences starting visit (clinic) Or Bronchus Left until (HCC) 12/27/2020 documented as of this encounter Visit Diagnoses Diagnosis 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
--- OUTSIDE RECORDS SUMMARY | 2022-01-02 14:25 | XMS_ITS | Encounter Summary ---
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 [facility] Procedures Prior Auth Rad Tx [place] IMRT COMPLEX [address] [place] [phone] Referral ID Status Reason Start Date Expiration Date Visits Requ ested Visits Authorized [id number] Closed 12/23/2020 12/11/2021 30 30 Encounter Details Date Type Department Care Team Description 01/01/2021 Hospital Encounter Department of Radiation John Santana I., Oncology in [place] [address] [place] [address] 1821 [place] [phone] [phone] Social History Tobacco Use Types Packs/Day Years [...] More than 4 times per year 12/24/2020 jain services? Do you belong to any clubs [...] place to sleep or slept in a senior living (including now)? Education Answer Date Recorded What [...]
--- OUTSIDE RECORDS SUMMARY | 2022-01-02 14:25 | XMS_ITS | Encounter Summary ---
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 [facility] Region Procedures Management Visit [address] [place] [phone] Referral ID Status Reason Start Date Expiration Date Visits Requ ested Visits Authorized [id number] Closed 12/11/2020 12/11/2021 10 10 Encounter Details Date Type Department Care Team Description 12/24/2020 Hospital Encounter Department of Aleta Santana Neoplasm Radiation Oncology [place] Of Lung Upper Lobe in [place], 200 [facility] [facility] Or Bronchus Left [place], [place] (HCC) 1821 [facility] [address] [place], [place] [phone] (Work) [phone] Social History Tobacco Use Types Packs/Day Years [...] or relatives? How often do you attend bahai or More than 4 times per year 12/24/2020 taoist services? Do you belong to any clubs or No 12/24/2020 organizations such as bahai groups, unions, fraternal or athletic groups, or [...] Pressure - - Pulse - - Temperature 36 ??C (96.8 ??F) 12/24/2020 3:07 PM CDT Respiratory Rate - - Oxygen Saturation - - Inhaled Oxygen Concentration - - Weight 88 kg (194 lb 0.1 oz) 12/24/2020 3:07 PM CDT Height - - Body Mass Index 34.59 12/11/2020 2:01 PM CDT documented in this encounter Medications at Time of Discharge Medication Sig Dispensed Refills Start Date End Date dexAMETHasone (DECADRON) 4 Currently taking qd 0 12/19/2020 mg tablet ibuprofen (ADVIL,MOTRIN) Take 800 mg by 0 014 200 mg tablet mouth. LORazepam (ATIVAN) 0.5 mg 0 12/18/2020 tablet multivitamin (multivitamin) Take 1 tablet by 0 tablet mouth daily. prochlorperazine 0 12/18/2020 (COMPAZINE) 5 mg tablet amoxicillin (AMOXIL) 500 mg 0 12/13/19 21 capsule lidocaine-prilocaine (EMLA) 0 12/25/19 21 2.5-2.5 % cream documented as of this encounter Progress Notes Aleta Santana M.D. - 12/24/2020 3:30 PM CDT ATTESTATION FOR MANAGEMENT VISIT I saw and evaluated the patient and participated in the hayes portions of the service as noted below. I reviewed the documentation of Ms. Pat Hendricksno RN and agree with the findings and plan. The patient appears well on exam. We will continue with radiation as planned and monitor weekly. Aleta Santana M.D., 12/24/2020 SUBJECTIVE REASON FOR VISIT Evaluation for side effects while receiving radiation treatment for 1. 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 HISTORY OF PRESENT ILLNESS Maria Del Carmen [place] is a 70 y.o. female with metastatic non small cell lung cancer, metastatic to brain. She is now undergoing radiotherapy to the tumor in the left upper lung and hilum. She is receiving concurrent paclitaxel and carboplatin weekly under the care of Dr. Box at [facility]. Treatment Course: 1x L lung Plan ID Fractions Dose / Fraction (cGy) Dose Treated (cGy) Dose Planned (cGy) First Treatment Last Treatment Elapsed Days F1 L lung [phone] 12/23/2020 12/24/2020 1 Course Summary 12/23/2020 12/24/2020 1 The patient was seen and examined today with Dr. Santana. The patient reports feeling that her a tooth to the right upper mouth has broken and is now scheduled to see her Dentist this afternoon. Medical Oncology nursing staff instructed patient that tooth should not be pulled. Patient denies vision or hearing changes, sore throat, fevers, chills, memory changes or seizure activity. She does report intermittent 10 second headache type pain behind right eye that last for 10 seconds. This pain seems to have increased in the last week. Currently the pain is rated at a 0 out of 10. PATIENT REPORTED SYMPTOM SCREEN FATIGUE (Scale: 0 = no fatigue; 10 = worst fatigue you can imagine): PAIN (Scale: 0 = no pain; 10 = worst pain you can imagine): 0 OVERALL QUALITY OF LIFE (Scale: 0 = as bad as can be; 10 = as good as can be): OBJECTIVE Temp 36 ??C (Temporal) Wt 88 kg BMI 34.59 kg/m?? PHYSICAL EXAM General: Alert and oriented [...] hilum initiated on December 23, 2020; anticipated date of completion is on January 31, 2021 along with weekly paclitaxel and carboplatin The patient is tolerating radiation treatment well overall. Patient plans to follow up with Dr. Wei([facility]) to further discuss headache symptoms. Patient has Dentist appointment later this afternoon. Chemotherapy was administered earlier today. She will contact us with any que stions or concerns. We will continue with radiation treatment as planned. Signed by: Pat Hendrickson R.N. 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
--- OUTSIDE RECORDS SUMMARY | 2022-01-02 14:25 | XMS_ITS | Encounter Summary ---
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 [facility] Procedures Prior Auth Rad Tx [place] IMRT COMPLEX [address] [place] [phone] Referral ID Status Reason Start Date Expiration Date Visits Requ ested Visits Authorized [id number] Closed 12/23/2020 12/11/2021 30 30 Encounter Details Date Type Department Care Team Description 01/08/2021 Hospital Encounter Department of Radiation John Santana I., Oncology in [place] [address] [place] [address] 1821 [place] [phone] [phone] Social History Tobacco Use Types Packs/Day Years [...] or relatives? How often do you attend pentecostalism or More than 4 times per year 12/24/2020 pentecostal services? Do you belong to any clubs or No 12/24/2020 organizations such as pentecostalism groups, unions, fraternal or athletic groups, or [...]
--- OUTSIDE RECORDS SUMMARY | 2022-01-02 14:25 | XMS_ITS | Encounter Summary ---
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 [facility] Procedures Prior Auth Rad Tx [place] IMRT COMPLEX [address] [place] [phone] Referral ID Status Reason Start Date Expiration Date Visits Requ ested Visits Authorized [id number] Closed 12/23/2020 12/11/2021 30 30 Encounter Details Date Type Department Care Team Description 01/02/2021 Hospital Encounter Department of Radiation John Santana I., Oncology [place] [address] [place] [address] 1821 [place] [phone] [phone] Social History Tobacco Use Types Packs/Day Years [...] or relatives? How often do you attend episcopalian or More than 4 times per year 12/24/2020 mormon services? Do you belong to any clubs or No 12/24/2020 organizations such as episcopalian groups, unions, fraternal or athletic groups, or [...] place to sleep or slept in a care home (including now)? Education Answer Date Recorded [...]
--- OUTSIDE RECORDS SUMMARY | 2022-01-02 14:25 | XMS_ITS | Encounter Summary ---
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 [facility] Procedures Prior Auth Rad Tx [place] IMRT COMPLEX [address] [place] [phone] Referral ID Status Reason Start Date Expiration Date Visits Requ ested Visits Authorized [id number] Closed 12/23/2020 12/11/2021 30 30 Encounter Details Date Type Department Care Team Description 12/25/2020 Hospital Encounter Department of Radiation John Santana I., [place]cology [place] [address] [place] [address] 1821 [place] [phone] [phone] Social History Tobacco Use Types Packs/Day Years [...] More than 4 times per year 12/24/2020 methodist services? Do you belong to any clubs [...]
--- OUTSIDE RECORDS SUMMARY | 2022-01-02 14:25 | XMS_ITS | Encounter Summary ---
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 [facility] Procedures Prior Auth Rad Tx [place] IMRT COMPLEX [address] [place] [phone] Referral ID Status Reason Start Date Expiration Date Visits Requ ested Visits Authorized [id number] Closed 12/23/2020 12/11/2021 30 30 Encounter Details Date Type Department Care Team Description 01/07/2021 Hospital Encounter Department of Radiation John Santana I., [place] [address] [place] [address] 1821 [place] [phone] Social History Tobacco Use Types Packs/Day Years [...] or relatives? How often do you attend methodist or More than 4 times per year 12/24/2020 adventist services? Do you belong to any clubs or No 12/24/2020 organizations such as methodist groups, unions, fraternal or athletic groups, or [...] place to sleep or slept in a jail (including now)? Education Answer Date Recorded What [...]
--- OUTSIDE RECORDS SUMMARY | 2022-01-02 14:25 | XMS_ITS | Encounter Summary ---
:1950 Author Organization [facility] Address [address] [place] [address] Care Team Providers Name Role Phone Unavailable Primary Care Provider Unavailable Reason for Referral Outpatient (Routine) - Closed Specialty Diagnoses / Procedures Referred By Contact Refer red To Contact Radiation Oncology Aleta Santana [facility] [address] [place] [phone] Referral ID Status Reason Start Date Expiration Date Visits Requ ested Visits Authorized [id number] Closed 12/11/2020 12/11/2021 10 10 Specialty Diagnoses / Procedures Referred By Contact Refer red To Contact Aleta Santana M.D. [facility] [address] [place] [phone] Referral ID Status Reason Start Date Expiration Date Visits Requ ested Visits Authorized Outpatient (Routine) - Closed Specialty Diagnoses / Procedures Referred By Contact Refer red To Contact Social Work Aleta Santana M.D. [facility] [address] [place] [phone] Referral ID Status Reason Start Date Expiration Date Visits Requ ested Visits Authorized [id number] Closed 12/11/2020 12/11/2021 1 1 Radiation Therapy (Routine) - Closed Specialty Diagnoses / Procedures Referred By Contact Refer red To Contact Diagnoses Malignant Neoplasm Of Lung Upper Lobe Or Bronchus Left (HCC) Aleta Santana M.D. [facility] Procedures Management Visit [address] [place] [phone] Referral ID Status Reason Start Date Expiration Date Visits Requ ested Visits Authorized [id number] Closed 12/11/2020 12/11/2021 10 10 Radiation Therapy (Routine) - Closed Specialty Diagnoses / Procedures Referred By Contact Refer red To Contact Diagnoses Malignant Neoplasm Of Lung Upper Lobe Or Bronchus Left (HCC) Aleta Santana M.D. [facility] Procedures Prior Auth Rad Tx [place] IMRT COMPLEX [address] [place] [phone] Referral ID Status Reason Start Date Expiration Date Visits Requ ested Visits Authorized [id number] Closed 12/23/2020 12/11/2021 30 30 Radiation Therapy (Routine) - Closed Specialty Diagnoses / Procedures Referred By Contact Refer red To Contact Diagnoses Malignant Neoplasm Of Lung Upper Lobe Or Bronchus Left (HCC) Aleta Santana M.D. [facility] Procedures Initial Rad Onc Treatment Planning CT Simulation [address] [place] [phone] Referral ID Status Reason Start Date Expiration Date Visits Requ ested Visits Authorized [id number] Closed 12/11/2020 12/11/2021 1 1 Reason for Visit Appointment Request (Routine) - Closed Specialty Diagnoses / Procedures Referred By Contact Refer red To Contact Radiation Oncology Diagnoses Malignant Neoplasm Of Lung Upper Lobe Or Bronchus Left (HCC) Oziel Box M.D. [address] [place] [address] Referral ID Status Reason Start Date Expiration Date Visits Requ ested Visits Authorized [id number] Closed 12/05/2020 12/05/2021 1 1 Encounter Details Date Type Department Care Team Description 12/11/2020 Hospital Encounter Department of Aleta Santana Neoplasm Radiation Oncology [place] Of Lung Upper Lobe in [address] Or Bronchus Left [place], [place] (HCC) (Primary Dx) [address] [facility] [address] [place], [place] [phone] (Work) [phone] Social History Tobacco Use Types Packs/Day Years [...] or relatives? How often do you attend christianity or More than 4 times per year 12/24/2020 amish services? Do you belong to any clubs or No 12/24/2020 organizations such as christianity groups, unions, fraternal or athletic groups, or [...] or slept in a intermediate (including now)? Sex Assigned at Date Recorded Female 12/06/2020 4:25 PM CDT documented as of this encounter Last Filed Vital Signs Vital Sign Reading Time Taken Comments Blood Pressure 116/79 12/11/2020 2:01 PM CDT Pulse 71 12/11/2020 2:01 PM CDT Temperature 36.5 ??C (97.7 ??F) 12/11/2020 2:01 PM CDT Respiratory Rate - - Oxygen Saturation 99% 12/11/2020 2:01 PM CDT at rest Inhaled Oxygen Concentration - - Weight 84.6 kg (186 lb 8.2 oz) 12/11/2020 2:01 PM CDT Height 159.5 cm (5' 2.8) 12/11/2020 2:01 PM CDT Body Mass Index 33.25 12/11/2020 2:01 PM CDT documented in this encounter Medications at Time of Discharge Medication Sig Dispensed Refills Start Date End Date ibuprofen (ADVIL,MOTRIN) Take 800 mg by 0 014 200 mg tablet mouth. multivitamin (multivitamin) Take 1 tablet by 0 tablet mouth daily. documented as of this encounter Consult Notes Aleta Santana M.D. - 12/11/2020 2:00 PM CDT RADIATION ONCOLOGY CONSULTATION SUBJECTIVE REQUESTING PROVIDER Oziel Box M.D., Medical Oncology PRIMARY PROVIDER Dr. Annie Worthington REASON FOR CONSULT Asked to see patient by Dr. Box to render an opinion regarding radiation therapy options for her metastatic non-small cell lung cancer, metastatic to brain. HISTORY OF PRESENT ILLNESS 1. Metastatic non-small cell lung cancer, metastatic to brain Ms. Wells is a very pleasant 70 year old current smoker with a recently diagnosed metastatic non-small cell lung cancer to the brain who has undergone SRT to the solitary brain metastasis and now presents to discuss thoracic radiation therapy options. Her oncologic history was reviewed with the patient and her son and is as follows: 1. October 03, 2020 through October 06, 2020: The patient presented to the [facility] ED with a 2day history of painful red swollen right neck and cheek. CT scan of the neck demonstrated findings most compatible with extensive right- sided parotitis. There was also a spiculated mass within the leftupper lobe measuring 21 x 26 mm, concerning for neoplasm. She was treated with IV vancomycin and ceftriaxone. She was discharged on oral antibiotics, Augmentin. 2. October 05, 2020: CT scan of the chest demonstrated a 2.4 x 2 cm soft tissue density nodule with spiculated margin in the left upper lobe. 5 mm triangular shaped nodular density along the minor fissure. 4 mm noncalcified subpleural nodule in the posterior lateral right lower lobe. Few mildly enlarged left hilar lymph nodes measuring up to 12 mm. No other enlarged lymph nodes. 2.5 cm left renal cyst. 3. October 11, 2020: PET-CT scan demonstrated an FDG avid spiculated nodule in the periphery left upperlobe tethering the visceral pleural measuring 2.2 x 1.5 cm (SUV max 13.2) with FDG avid left interlobar station 11/12L (SUV mas 17.4) and subaortic station 5 (SUV max 11.7) lymph nodes suspicious for left upper lobe primary lung neoplasm with lymph node metastases. FDG avid nodule in the right inferior superficial parotid gland (SUV max 5.3) likely representing a benign parotid neoplasm such as a Warthin's tumor. 4. October 23, 2020: Bronchoscopy was performed by Dr. Sheldon Dominguez. The trachea was of normal caliber. The bethanie was sharp. The tracheobronchial tree was examined and the bronchial mucosa and anatomy were normal. There were no lesions or secretions. Lymph node survey with EBUS was performed. EBUS-TBNA x 3 to a well-defined 1cm station 11R node, EBUS-TBNA x 4 to a 1.5cm oblong station 7 node, EBUS-TBNA x 8 to a deep GIANCARLO station 11L node. Radial EBUS used to confirm lymph node position and also localize the GIANCARLO mass and BAL GIANCARLO done. Cytology of the left upper lobe of the lung demonstrated rare atypical cells, favor reactive bronchial epithelial cells. Cytology of the station 11R and station 7 lymph nodes was negative for malignancy. Cytology of the station 11L lymph node demonstrated non-small cell carcinoma. TTF-1 was negative. P40 was positive in a subset of tumor cells. Bronoalveolar lavagewas negative for malignant cells. 5. November 05, 2020: Pulmonary function testing demonstrated FEV1 of 2.33 (118% predicted), FVC 3.08 (112% predicted), and DLCO 22.0 (65% predicted). 6. November 05, 2020: MRI of the brain demonstrated a ring-enhancing lesion within the posterior aspect of the right superior frontal gyrus which measured up to 12 mm. Central cystic/necrotic change. Mild surrounding vasogenic edema. No other enhancing intracranial lesions. 7. November 08, 2020: MRI of the brain demonstrated the ring-enhancing lesion within the posterior aspect of the right superior frontal gyrus measuring 13 x 13 x 12 mm, not significantly changed. No new enhancing intracranial lesions. 8. November 26, 2020 through November 29, 2020: Stereotactic radiation treatment to the right frontal brain lesion to a dose of 2700 cGy in 3 fractions under the care of Dr. Miguel Wei at [facility] [place]. 9. December 04, 2020: Medical Oncology appointment with Dr. Oziel Box who discussed that the hypermetabolic lymph node initially read as a station 5 sub aortic lymph node [facility] and it appears to be a station 12L lymph node instead. Therefore, the patient has T2a N1 disease according to their board He felt that the patient would benefit more from definitive chemoradiation followed by adjuvant durvalumab instead of surgery followed by adjuvant chemotherapy. Referral to Radiation Oncology in [place]. The patient will keep her appointment next week with Dr. Valadez to discuss surgery. If chemoradiation is pursued, would offer weekly carbo/Taxol during radiation followed by adjuvant durvalumab x 1 year. Would also consider a CT- guided biopsy of the primary tumor to obtain more tissue for PD-L1 and NGS testing. 10. December 09, 2000: Follow-up visit with Dr. Valadez who per patient agreed with a non-surgical approach. I have not seen his note. 10. December 12, 2020: PET/CT scan scheduled for tomorrow. INTERVAL HISTORY The patient reports that she is doing reasonably well. She states that she had no head symptoms prior to the SRT brain treatment. Since the brain treatment she has had 4-5 times daily of a 10-15 sec dull throbbing headache. It is in various places in her head and then goes away. Last evening she had it above her right eye. She hasn't had headaches before. She denies nausea/vomiting, seizures, loss ofconsciousness or focal weakness/numbnes besides a right foot drop which is new for her also. She drags her right foot. She also has noticed that her hand writing is worse. She lives with her son and hehas noticed that her speech isn't the same as it used to be. Her weight has been stable. She has a normal occasional cough with no hemoptysis or fevers/chills. She denies abdominal pain, bowel/bladder changes, or blood in her urine or stool. She has arthritis which mostly bothers her in her knees and hands. The patient has a history of prior radiation therapy as outlined above with her recent SRT brain. Her ECOG performance status is 0. REVIEW OF SYSTEMS Review of systems was negative except as documented above. PATIENT REPORTED SYMPTOM SCREEN FATIGUE (Scale: 0 = no fatigue; 10 = worst fatigue you can imagine): 4 PAIN (Scale: 0 = no pain; 10 = worst pain you can imagine): 2 OVERALL QUALITY OF LIFE (Scale: 0 = as bad as can be; 10 = as good as can be): 10 PAST MEDICAL HISTORY 1. Arthritis, bilateral thumbs 2. Bursitis, hips 3. Salivary duct calculi 4. Urge incontinence 5. Parotitis 6. Non-small cell lung cancer with oligometastatic disease to the brain, as per HPI PAST SURGICAL HISTORY 1. Appendectomy, 1968 2. Cataract removal, bilateral, 2008 3. Cholecystectomy, 1968 4. Knee arthroscopy, right 5. Tonsillectomy, 1960 SOCIAL HISTORY She lives in [place], [place]. She is . She has 4 children. She has 5 grandchildren. She is a current smoker of 5 cigarettes/day. FAMILY HISTORY No family history of cancer in any first degree relatives. OBJECTIVE BP 116/79 (BP Location: Left arm, Patient Position: Sitting, Cuff Size: Regular) Pulse 71 Temp 36.5 ??C (Temporal) Ht 159.5 cm Wt 84.6 kg SpO2 99% Comment: at rest BMI 33.25 kg/m?? PHYSICAL EXAM General: Well-developed, well-nourished and in no apparent distress. Neck: Supple. Lymph: No palpable cervical, supraclavicular, infraclavicular, or axillary adenopathy. Spine: There is no tenderness to palpation of the spine. Lungs: Clear to auscultation bilaterally. Heart: Regular rate and rhythm. Extremities: No clubbing, cyanosis, or edema. Neuro: Alert and oriented X3. CN II-XII grossly intact. Normal strength. Finger to nose and rapid alternating movements intact. She is dragging the right foot. DIAGNOSTICS I have reviewed the available imaging, operative and pathology reports as described above. 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 We had a wilmar,yet compassionate, discussion regarding radiation options for lung cancer. We discussed options assuming that her PET/CT tomorrow shows no evidence of metastatic disease. We discussed her treatment alternatives. My feeling is that it is N2, but it is on the borderline, and I staged her as such. Dr. Talamantes mentioned additional sampling for genetics/PDL1 testing. I would leave this up to Dr. Box. It would not change the radiation recommendations. She will talk more with him on Wednesday about this. I explained to her that some patients with isolated brain metastasis can do better, but usually correlates to the lauryn status and disease burden in the chest. My preference would be for induction chemotherapy prior to definitive radiation therapy, to make sure she does not rapidly develop other metastatic or recurrent other brain metastases in the short term. This would help her avoid the effects ofchest radiotherapy should she rapidly develop other metastatic disease following treatments. If she responds to induction chemotherapy treatment and does not develop other metastatic disease, then we could certainly consider local radiation and/or chemotherapy at that time. She has been offered up front chemo/radiotherapy and I am willing to do this if this is what she ultimately decides to go with given the [facility] board recommendation. I was able to review her casewith our [place] daily lung tumor board meeting on Wednesday and they agreed with my recommendation too. Of course, her PET/CT tomorrow will also help determine her course. I would be happy to see her back when needed. After a full discussion, she is leaning more towards upfront chemotherapy and radiation. We will schedule a simulation for her for early next week with tentative plans to start radiation on December 23, again assuming the PET/CT is negative for new metastatic disease. The patient???s clinical and pathologic scenario was reviewed with the patient in detail. The rationale for radiotherapy was reviewed with the patient and their family. The logistics of radiotherapy simulation were reviewed with the patient utilizing the simulation booklet. We discussed treatment planning and potential strategies for minimizing dose to critical structures. The logistics of radiotherapy treatment were reviewed with the patient. Treatments are administered daily Wednesday through Wednesday,with each treatment lasting approximately 10-20 minutes. Our team approach was reviewed with the patient. We discussed the acute as well as skilled nursing risks, including, but not limited to fatigue, skin erythema, sore throat or esophagitis, blood count changes, small risks of bone fracture, radiation pneumonitis (10-15% risk with a 1% mortality), cardiac disease, and secondary malignancies. We discussed possibly utilizing a breath hold technique if she is able and this improves her plan. I would be happy to see her back for further discussion following the PET/CT. If we decide to go with upfront treatment, I would see her back right away. If she decides to get induction chemotherapy, then I would be happy to see her back after that and restaging. Again, we have tentatively scheduled areturn with me next week. She will get her third COVID booster soon. Her son, with whom she lives, has not been vaccinated butdid have the infection in July. We discussed taking precautions while she is going through treatmentsif he is not willing to get the vaccine. Their questions were answered, and they were comfortable with this plan. My thanks to Eriberto Branham Jacques, Hovda and Elin for the opportunity to participate in this patient's care. EDUCATION Ready to learn, no apparent learning barriers were identified; learning preferences include listening. Explained diagnosis and treatment plan; patient expressed understanding of the content. CONSENT Discussed the risks, benefits, alternatives, and the necessity of other members of the healthcare team participating in the procedure. All questions answered and consent given. I personally spent 75 minutes in care of the patient today. Time includes both non face to face and face to face patient care. Signed by: Aleta Santana M.D. 12/11/2020 3:42 PM CDT Radiation Oncology [facility] [address] [place] [address] documented in this encounter Miscellaneous Notes Addendum Note - Yas Madrigal - 12/11/2020 2:00 PM CDT Encounter addended by: Yas Madrigal on: 12/12/2020 7:46 AM Actions taken: Letter saved documented in this encounter Plan of Treatment Scheduled Orders Name Type Priority Associated Order Schedule Diagnoses Prior Auth Rad Tx Radiation Oncology Routine Malignant Neoplas m Ordered: 12/11/2020 Of Lung Upper Lobe Or Bronchus Left (HCC) Management Visit Radiation Oncology Routine Malignant Neoplasm 10 Occurrences Of Lung Upper Lobe starting 12/11/2020 Or Bronchus Left until 12/11 (HCC) Scheduled Referrals Name Type Priority Associated Order Schedule Diagnoses Social Work office Outpatient Referral Routine Ex pected: 12/11/2020 visit (clinic) (Approximate) , Expires: 2021 Radiation Oncology Outpatient Referral Routine Malignant Neopl asm Expected: 12/11/2020 - Nurse education Of Lung Upper Lobe (Negro roximate), visit (clinic) Or Bronchus Left Expires: 12/11/2021 (HCC) Radiation Oncology Outpatient Referral Routine 10 Occurrences nurse visit starting 2020 (clinic) until 4 documented as of this encounter Results Initial Rad Onc Treatment Planning CT Simulation (12/17/2020 1:54 PM CDT) Specimen (Source) Anatomical Location Collection Method / Collectio n Time Received Time / Laterality Volume Narrative CAMILA CAMPO - 12/17/2020 1:54 PM CDT Sarina Sellers, KUSHAL ? 12/17/2020 ??1:55 PM Initial Rad Onc Treatment Planning CT Si mulation Date/Time: 12/17/2020 1:54 PM Performed by: Aleta Santana M.D. Authorized by: Aleta Santana M.D. Aleta Santana M.D. RADIATION ONCOLOGY ORDERABLE S Performing Organization Address City/State/ZIP Code Phon e Number [facility] na documented in this encounter Visit Diagnoses Diagnosis Malignant Neoplasm Of Lung Upper Lobe Or Bronchus Left (HCC) - Primary 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
--- OUTSIDE RECORDS SUMMARY | 2022-01-02 14:25 | XMS_ITS | Encounter Summary ---
:1950 Author Organization [facility] Address [address] [place] [address] Care Team Providers Name Role Phone Unavailable Primary Care Provider Unavailable Reason for Visit Radiation Therapy (Routine) - Closed Specialty Diagnoses / Procedures Referred By Contact Refer red To Contact Diagnoses Malignant Neoplasm Of Lung Upper Lobe Or Bronchus Left (HCC) Aleta Santana M.D. [facility] Procedures Prior Auth Rad Tx [place] IMRT COMPLEX [address] [place] [phone] Referral ID Status Reason Start Date Expiration Date Visits Requ ested Visits Authorized [id number] Closed 12/23/2020 12/11/2021 30 30 Encounter Details Date Type Department Care Team Description 01/06/2021 Hospital Encounter Department of Radiation John Santana I., [place] [address] [place] [address] 1821 [place] [phone] [phone] Social History Tobacco Use Types Packs/Day Years [...] More than 4 times per year 12/24/2020 anabaptist services? Do you belong to any clubs [...]
--- OUTSIDE RECORDS SUMMARY | 2022-01-02 14:25 | XMS_ITS | Encounter Summary ---
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 [facility] Region Procedures Management Visit [address] [place] [phone] Referral ID Status Reason Start Date Expiration Date Visits Requ ested Visits Authorized [id number] Closed 12/11/2020 12/11/2021 10 10 Encounter Details Date Type Department Care Team Description 12/31/2020 Hospital Encounter Department of Jj Sheldon Neoplasm Radiation Oncology [place] Car Of Lung Upper Lobe in [place], [address] [place] [address] Or Bronchus Left [place], [place] (HCC) 1821 [facility] [address] [place], [place] [phone] [address] (Work) [phone] Social History Tobacco Use Types Packs/Day Years [...] or relatives? How often do you attend orthodoxy or More than 4 times per year 12/24/2020 druze services? Do you belong to any clubs or No 12/24/2020 organizations such as orthodoxy groups, unions, fraternal or athletic groups, or [...] place to sleep or slept in a penitentiary (including now)? Education Answer Date Recorded What is the highest level of school Associate degree: bear jorge, 12/20/2020 you have completed or the highest technical, or vocational nati romero degree you have received? Sex Assigned at Date Recorded Female 12/06/2020 4:25 PM CDT documented as of this encounter Last Filed Vital Signs Vital Sign Reading Time Taken Comments Blood Pressure 122/54 12/31/2020 9:12 AM CDT Pulse 58 12/31/2020 9:12 AM CDT Temperature 35.8 ??C (96.5 ??F) 12/31/2020 9:12 AM CDT Respiratory Rate - - Oxygen Saturation - - Inhaled Oxygen Concentration - - Weight 86.5 kg (190 lb 11.2 oz) 12/31/2020 9:12 AM CDT Height - - Body Mass Index 34 12/11/2020 2:01 PM CDT documented in this [...] mg tablet documented as of this encounter Progress Notes Jj Sheldon M.D. - 12/31/2020 9:00 AM CDT SUBJECTIVE REASON FOR VISIT Evaluation [...] under the care of Dr. Box at [facility]. Treatment Course: 1x L lung Plan ID Fractions Dose / Fraction (cGy) Dose Treated (cGy) Dose Planned (cGy) First Treatment Last Treatment Elapsed Days F1 L lung 200 1200 6000 12/23/2020 12/30/2020 7 Course Summary 12/23/2020 12/30/2020 7 The patient was seen and examined today with Dr. Sheldon. The patient reports 6 out of 10 headache that is focused behind the right eye. Headache is occasional and does not occur everyday. She is not taking any pain medications. She denies nausea, vomiting, neurological changes, vision or hearing changes, shortness of breath, fevers or chills or swallowing changes. She notices an occasional cough with phlegm. PATIENT REPORTED SYMPTOM SCREEN FATIGUE (Scale: 0 = no fatigue; 10 = worst fatigue you can imagine): 5 PAIN (Scale: 0 = no pain; 10 = worst pain you can imagine): 6 OVERALL QUALITY OF LIFE (Scale: 0 = as bad as can be; 10 = as good as can be): 9 OBJECTIVE BP (!) 122/54 (BP Location: Right arm, Patient Position: Sitting, Cuff Size: Small) Pulse (!) 58 Temp (!) 35.8 ??C (Temporal) Wt 86.5 kg BMI 34.00 kg/m?? PHYSICAL EXAM General: Alert and oriented [...] 2021 along with weekly paclitaxel and carboplatin Patient plans to follow up with Dr. Wei ([facility]) to further discuss headache symptoms. Chemotherapy is administered on . She will contact us with any questions or concerns. We will continue with radiation treatment as planned. Signed by: Pat Hendrickson R.N. 12/31/2020 9:29 AM CDT I saw and evaluated the patient and participated in the hayes portions of the service. I reviewed the documentation of Pat Hendrickson R.N. and agree with the findings and plan. The patient appears well onexam. Is experiencing a retro- orbital headache. She is not taking any medications for this. I recommended that she alternate Tylenol and ibuprofen (as long as Dr. Box is okay with her taking ibuprofen). If her headaches persist, we may need to proceed with some imaging. He will continue with treatments as planned Signed by: Jj Sheldon M.D. 12/31/2020 3:54 PM CDT [facility] [address] [place] [address] documented in this encounter Miscellaneous Notes Addendum Note - Jj Sheldon M.D. - 12/31/2020 9:00 AM CDT Encounter addended by: Jj Sheldon M.D. 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
--- OUTSIDE RECORDS SUMMARY | 2022-01-02 14:25 | XMS_ITS | Encounter Summary ---
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 [facility] [place] Procedures Initial Rad Onc Treatment Planning CT Simulation [address] [place] [address] [phone] Referral ID Status Reason Start Date Expiration Date Visits Requ ested Visits Authorized [id number] Closed 12/11/2020 12/11/2021 1 1 Encounter Details Date Type Department Care Team Description 12/17/2020 Hospital Encounter Department of Aleta Santana Neoplasm Radiation Oncology [place] Muhammad Of Lung Upper Lobe in [place], [address] [place] [address] Or Bronchus Left [place], [place] (HCC) 18[address] [facility] [address] [place], [place] [phone] [address] (Work) [phone] Social History Tobacco Use Types Packs/Day Years [...] or relatives? How often do you attend rastafari or More than 4 times per year 12/24/2020 christian services? Do you belong to any clubs or No 12/24/2020 organizations such as rastafari groups, unions, fraternal or athletic groups, or [...] or slept in a penitentiary (including now)? Sex Assigned at Date Recorded Female 12/06/2020 4:25 PM CDT documented as of this encounter Medications at Time of Discharge Medication Sig Dispensed Refills Start Date End Date amoxicillin (AMOXIL) 500 mg 0 12/13/19 21 capsule ibuprofen (ADVIL,MOTRIN) Take 800 mg by 0 014 200 mg tablet mouth. multivitamin (multivitamin) Take 1 tablet by 0 tablet mouth daily. 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 Authorized by: Aleta Santana M.D. Simulation was performed under physician supervision based on physician order in preparation for radiation therapy. Physician was immediately available to provide assistance and direction throughout the procedure. Written consent for treatment was completed or confirmed. The patient was appropriately identified and placed in the treatment position using the necessary immobilization to ensure a reproducible treatment position. Reference gilbert were placed to facilitate marking of isocenter. Area scanned:Chest Contrast used for the simulation procedure: None Patient position:head first supine and arms up Custom immobilization: Vac-sawyer Motion management: 4D CT scan Bolus: No CT guidance: Following positioning of the patient, a series of slices was obtained to be utilized intreatment planning. CT images were transferred to the Eclipse treatment planning system, after a reference isocenter was determined and marked. Segmentation and treatment planning will take place priorto treatment delivery. Patient set up and imaging was appropriate and completed without incident. Assembler Plastic Boat use:No documented in this encounter Plan of Treatment Not on filedocumented as of this encounter Procedures Procedure Name Priority Date/Time Associated Comments Diagnosis INITIAL RAD ONC Routine 12/17/2020 1:54 PM Malignant Neoplasm Results for this TREATMENT PLANNING CDT Of Lung Upper Lobe pro cedure are in CT SIMULATION Or Bronchus Left the result s (HCC) section. documented in this encounter Results Initial Rad Onc Treatment Planning CT Simulation (12/17/2020 1:54 PM CDT) Specimen (Source) Anatomical Location Collection Method / Collectio n Time Received Time / Laterality Volume Narrative JENSEN JAHAIRA - 12/17/2020 1:54 PM CDT Sarina Sellers RTT ? 12/17/2020 ??1:55 PM Initial Rad Onc Treatment Planning CT Si mulation Date/Time: 12/17/2020 1:54 PM Performed by: Aleta Santana M.D. Authorized by: Aleta Santana M.D. Aleta Santana M.D. 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
--- OUTSIDE RECORDS SUMMARY | 2022-01-02 14:25 | XMS_ITS | Encounter Summary ---
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 [facility] Procedures Prior Auth Rad Tx [place] IMRT COMPLEX [address] [place] [phone] Referral ID Status Reason Start Date Expiration Date Visits Requ ested Visits Authorized [id number] Closed 12/23/2020 12/11/2021 30 30 Encounter Details Date Type Department Care Team Description 12/24/2020 Hospital Encounter Department of Radiation John Santana I., [place] [address] [place] [address] 1821 [place] [phone] [phone] Social History Tobacco Use Types Packs/Day Years [...] or relatives? How often do you attend mormonism or More than 4 times per year 12/24/2020 jain services? Do you belong to any clubs or No 12/24/2020 organizations such as mormonism groups, unions, fraternal or athletic groups, or [...]
--- OUTSIDE RECORDS SUMMARY | 2022-01-02 14:25 | XMS_ITS | Encounter Summary ---
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 [facility] Procedures Prior Auth Rad Tx [place] IMRT COMPLEX [address] [place] [phone] Referral ID Status Reason Start Date Expiration Date Visits Requ ested Visits Authorized [id number] Closed 12/23/2020 12/11/2021 30 30 Encounter Details Date Type Department Care Team Description 01/03/2021 Hospital Encounter Department of Radiation John Santana I., [place] [address] [place] [address] 1821 [place] [phone] [phone] Social History Tobacco Use Types Packs/Day Years [...] More than 4 times per year 12/24/2020 cheondoism services? Do you belong to any clubs [...]
--- OUTSIDE RECORDS SUMMARY | 2022-01-02 14:25 | XMS_ITS | Encounter Summary ---
:1950 Author Organization [facility] Address [address] [place] [address] Care Team Providers Name Role Phone Unavailable Primary Care Provider Unavailable Reason for Referral Outpatient (Routine) - Closed Specialty Diagnoses / Procedures Referred By Contact Refer red To Contact Aleta Yo M.D. [facility] Region [address] [place] [phone] Referral ID Status Reason Start Date Expiration Date Visits Requ ested Visits Authorized [id number] Closed 12/11/2020 12/11/2021 1 1 Reason for Visit Outpatient (Routine) - Closed Specialty Diagnoses / Procedures Referred By Contact Refer red To Contact Aleta Yo M.D. [facility] Region [address] [place] [phone] Referral ID Status Reason Start Date Expiration Date Visits Requ ested Visits Authorized [id number] Closed 12/11/2020 12/11/2021 1 1 Encounter Details Date Type Department Care Team Description 12/30/2020 Hospital Encounter Department of Ruby Benavides Malign ant Neoplasm Of Radiation Oncology L.G.S.W. Lung Upper Lobe Or in [place], Bronchus Left (HCC) [place] (Work) (Primary Dx) 18[address] [place] [address] Social History Tobacco Use Types [...] or the highest technical, or vocational p deeram degree you have received? Sex Assigned at [...] mg tablet documented as of this encounter Consult Notes Ruby Benavides L.G.S.W. - 12/30/2020 9:00 AM CDT Psychosocial Assessment SUBJECTIVE DEMOGRAPHIC INFORMATION Referral by: Dr. Santana Person(s) present during interview: [place] Primary care clinic and provider: No primary care provider on file. Primary Language: Croatian REASON FOR CONSULT Initial social work consult for assessment of psychosocial strengths and concerns while undergoing radiation therapy for Malignant Neoplasm of Lung, upper lobe or bronchus left. No past medical history on file. No past surgical history on file. SOCIAL HISTORY Marital Status / Family / Household Status: Support Systems: 5-6 good friends, 4 children and 5 grandchildren Primary caregiver: Son (Shiraz) We have not received permission to contact them. Spirituality / Restoration / Culture: Alfonso Em Employment: retired from [employer] after 20 years employment there Psychosocial Risk Factors impacting the patient: none reported Abuse, Neglect, Maltreatment, Trauma: Current: None reported. Past: None reported. ENVIRONMENTAL SUPPORTS Current Living Situation: Ms. Wells resides in [facility] where son is currently living with her Patient's Home Environment: basement is being remodeled by son FUNCTIONAL STATUS (ADL's and IADL's) It is anticipated that the patient will need assistance with tasks appropriate to the patient's age/development. 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 FINANCES/INSURANCE Primary insurance: MEDICARE A AND B Secondary insurance: MEDICA ADVANCE DIRECTIVES A health care directive has been completed and provided to hospital and health care agent (dtr-Syndi) OBJECTIVE MENTAL HEALTH Mental Health History: Patient reports no mental health history and no current concerns Mental Status Exam: Appearance: Dressed appropriately in street clothing. Well groomed. Good eye contact. Appears statedage. Behavior: Calm and interactive. Cooperation: Cooperative and forthcoming. Appears reliable. Consciousness/Orientation: Alert and oriented to person, place and time. Memory/Attention: Conversationally intact. Fund of knowledge: Consistent with education and experiences as evidenced by vocabulary. Insight: Good. Judgment: Good. Safety: Denies current suicidal or homicidal ideation. No safety concerns. Motivation to pursue treatment: Good. Current psychological symptoms: None noted Other Mental Health Assessments PHQ 2 Score: 0 SUBSTANCE USE Alcohol: no Tobacco: yes currently smoking Ms. Wells reports no history of nor present concerns related to alcohol or other substance use. Current Stressors: none noted Coping skills/strengths: Raya, Family support, Time with friends and Motivation Discussion: Ms. Wells met with this psychiatric social worker supervisor today for an initial social work consult and psychosocial assessment. She was open and forthright in sharing her overall life context and current experience with radiation therapy. She has lived in [place] for many years. Ms. Wells states she is well supported,is feeling as well as possible through her treatment, and is not currently in need of any additionalresources or information. She was receptive to the packet of information offered and intends to review the materials. IMPRESSION Ms. Wells understands her diagnosis, prognosis and recommended treatment, and demonstrates motivation to comply with her treatment plan. She is self- sufficient and able to communicate her own wishes, questions, and concerns. INTERVENTIONS Introduction to medical social work services, assessment of coping, support, and resources, reflective listening, and supportive counseling were provided. Patient is coping well with treatment, is well-supported by family and community resources, and identifies no gaps in resources or need for added services, assistance, or information. She is aware of the availability of social work assistance throughout radiation treatment, and is aware how to request this assistance if any needs or concerns arise. PLAN Written materials regarding medical social work services, online information and support resources, adjustment/coping with treatment, and caregiving were provided. 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
--- OUTSIDE RECORDS SUMMARY | 2022-01-02 14:25 | XMS_ITS | Encounter Summary ---
:1950 Author Organization [facility] Address [address] [place] [address] Care Team Providers Name Role Phone Unavailable Primary Care Provider Unavailable Encounter Details Date Type Department Care Team Description 12/09/2020 Clinical Communication Department of Aleta Santana Radiation Oncology in [place] [facility] 200 [address] [facility] 1821 [place] [phone] Social History Tobacco Use Types Packs/Day Years [...] or relatives? How often do you attend uatsdin or More than 4 times per year 12/24/2020 yazidi services? Do you belong to any clubs or No 12/24/2020 organizations such as uatsdin groups, unions, fraternal or athletic groups, or [...] or slept in a assisted (including now)? Sex Assigned at Date Recorded Female 12/06/2020 4:25 PM CDT documented as of this encounter Miscellaneous Notes Telephone Encounter - Aleta Santana M.D. - 12/09/2020 1:05 PM CDT I received a phone call from Dr. Box about Ms. Wells who I will meet on Wednesday. 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 The subaortic node is now beingcalled a 12R node. He would like to consider CHAR CONVEYOR TENDER followed by [facility]. We discussed obtaining a more recent PET/CT before we embark on curative therapy in the chest. She is still being considered for surgery. I look forward to meeting the patient later this week. documented in this encounter Plan of Treatment Not on filedocumented as of this encounter Visit Diagnoses Not on filedocumented in this encounter
--- OUTSIDE RECORDS SUMMARY | 2022-01-02 14:25 | XMS_ITS | Clinical Summary ---
:1950 Author Organization [facility] ian Affiliates [place] [address] Care Team Providers Name Role Phone Alvino Tracey MD Unavailable Dheeraj Valero Unavailable Staff, Other Clinical Unavailable Unavailable Annie Worthington MD Primary Care Provider Allergies Active Allergy Reactions Severity Noted Date Comments Ciprofloxacin Rash 12/15/2017 Nitrofurantoin Monohyd/M-Cryst Hives 09/09/2020 Penicillins Diarrhea 06/09/2006 Medications Medication Sig Dispensed Refills Start Date End Date Status ibuprofen (ADVIL; Take 4 tablets by 0 09/22/2013 Active MOTRIN) 200 mg tablet mouth every 8 hours if needed. Active Problems Problem Noted Date Osteoarthritis of both hands 12/15/2017 Other bursitis disorders 06/09/2006 Overview: HIPS Urge incontinence 06/09/2006 Encounters Date Type Specialty Care Team Description 10/30/2021 Lab Requisition Antoinette Hsu MD 10/03/2021 Office Visit Ender Adams, Adoreu re (Right L5-S1 TFESI) from Last 3 Months Immunizations Name Administration Dates Next Due COVID-19 vaccine ([employer] 30mcg/0.3mL) PF, 1, 05/17/2020 MDV Influenza, High-dose Inactivated 12/24/2014 Influenza, High-dose Quadrivalent Inactivated 12/28/2019 Influenza, Inactivated IIV3 (Age 65+ Years) Preserv 12/16/19 18 Free Pneumococcal Poly,23-Valent (Pneumovax) 12/15/2017 Pneumococcal conj 13-Valent (Prevnar 13) 11/26/2016 Td (Age >=7 Years) 03/15/1998 Tdap 08/24/2008, 08/24/2008 Family History Medical History Relation Name Comments Hyperlipidemia Brother Alcohol/Drug Father Allergies Father Arthritis Father osteoarthritis Heart Disease Father [place] Hypertension Father Other Father MIGRAINES Cancer-breast Maternal Grandmother Allergies Mother food, colonoscop y with polyps Arthritis Mother RA Osteoporosis Mother Other Sister Crohn's Relation Name Status Comments Brother Father Maternal Grandmother Mother Alive Sister Social History Tobacco Use Types Packs/Day Years Used Date Current Some Day Smoker Cigarettes Smokeless Tobacco: Never Used Tobacco Cessation: Ready to Quit: No; Co unseling Given: Yes Comments: 5 a day Alcohol Use Standard Drinks/Week Comments No 1.7 (1 standard drink = 0.6 oz pure alco hol) Sex Assigned at Date Recorded Not on file Obstetrics History Para Term AB IAB SAB Ectopic Multiple Living Live Births 4 4 4 1 4 Date Outcome GA Total Labor/2nd/3rd Weight Sex Delivery Anes PTL Kathy A 1 A5 Name Clin Labor Term Term Term Term Last Filed Vital Signs Vital Sign Reading Time Taken Comments Blood Pressure 113/56 10/23/2020 10:45 AM CDT Pulse 60 10/23/2020 10:45 AM CDT Temperature 36.4 ??C (97.6 ??F) 10/23/2020 9:35 AM CDT Respiratory Rate 16 10/23/2020 10:45 AM CDT Oxygen Saturation 99% 10/23/2020 10:45 AM CDT Inhaled Oxygen Concentration - - Weight 84.8 kg (187 lb) 10/23/2020 7:45 AM CDT Height 165.1 cm (5' 5) 10/23/2020 7:45 AM CDT Body Mass Index 31.12 10/23/2020 7:45 AM CDT Plan of Treatment Health Maintenance Due Date Last Done Comments Hepatitis C screening for age 1202/19/1967 18-79 Zoster (shingles) series for age 1202/20/1968 50+ (1 of 2) Tetanus booster 08/24/2018 08/24/2008, 08/24/2008, 03/15/1998 BMI (ht and wt on same day) for 12/15/2018 12/15/2017, 01/13, age 18+ 11/26/2016, Additional history exists Depression screening for age 12+ 12/15/2018 12/15/2017, Medicare Wellness for age 65+ 12/15/2018 12/15/2017, 2016 Fecal testing non-DNA 12/20/2018 12/20/2017, 11/27/2016, (FIT,FOBT,iFOBT) for age 45-75 10/05/2014, Addit ional history exists Mammogram for age 45-75 12/21/2018 12/21/2017, 12/15/2017, 11/26/2016, Additional history exists COVID-19 vaccine series (4 - 02/11/2021 12/17/2020, 021, Booster for Pfizer series) 05/17/2020 Influenza for age 65+ 11/13/2021 12/28/2019, 12/15/2017, 12/24/2014 Lipids for age 45-75 11/26/2021 11/26/2016, 08/04/2012, 08/22/2007 Tdap Completed 08/24/2008, 08/24/2008 DEXA/DXA scan for age 65+ Completed 10/05/2014, 06/16/2005 Pneumococcal series for age 65+ Completed 12/15/2017, 11/13 Procedures Procedure Name Priority Date/Time Associated Diagnosis Comme nts LAB TRACKING EVENT Routine 10/29/2021 12:00 PM CDT PATH TISSUE EXAM Routine 10/29/2021 12:00 PM Resu lts for this CDT procedure are i n the results section. AMB EPIDURAL Routine 10/03/2021 12:00 AM Foot drop, r ight Results for this STEROID INJECTION CDT Low back pain, procedur e are in unspecified back the results pain laterality, section. unspecified chronicity, unspecified whether sciatica present from Last 3 Months Results LAB TRACKING EVENT (10/29/2021 12:00 PM CDT) Specimen Anatomical Collection Method Collection Time Receive d Time (Source) Location / / Volume Laterality Other (Other) Client Collect / 10/29/2021 12:00 2021 3:58 Unknown PM CDT PM CDT Antoinette Hsu MD LAB BILL ONLY Performing Organization Address City/State/ZIP Code Phon e Number [employer] [address] [place] [address] LABORATORY-CENTRAL 2000 LABORATORY PATH TISSUE EXAM (10/29/2021 12:00 PM CDT) Component Value Ref Test Analysis Performed At [facility] gist Range Method Time Signature Case Report Pathology Report ?Case: [id number] ? 10/31/2021 [facility] Authorizing Provider: ??Antoinette Hernandez MD ?Collected: ? 10/29/2021 1200 ? 12:14 PM HEALTH Ordering Location: ? [facility] CENTRAL LAB ?Received: ?10/30/2021 1621 ? CDT [place] [facility] Pathologist: ? Itzel Carter MD ? ENTRAL Specimen: ?Left Arm ? LABORATORY Final SKIN, POSTERIOR LEFT UPPER ARM, EXCISION: 10/31/2021 [facility] Electronically Diagnosis 1. Nevus lipomatosus superficialis 12:14 PM HEALTH signed by 2. Negative for malignancy CDT LAB Itzel Levine MD on LABORATORY 10/31/2021 at 12:14 PM Clinical Enlarging mass 10/31/2021 [facility] Information 12:14 PM HEALTH CDT LABORATORY-C ENTRAL LABORATORY Gross A) Received in formalin, lab eled with the patient's name and date of , is a 2.0 x 1.0 x 0.5 cm oriented skin ellipse with a single suture designating superior and a double stich designating post 10/31/2021 [facility] Description erior. The single stitch wi ll be redesignated as 12:00 and the double stitch will be redesignated as 3:00. The skin surface displays a 0.8 x 0.7 cm raised ramires lesion that is less than 0.1 cm from the 3:00 margin. 12:14 PM HEALTH CDT LABORATORY-C The specimen is inked as follows: ENTRAL 12-3 o'clock: Blue LABORATORY 3-6 o'clock: Green 6-9 o'clock: Red 9-12 o'clock: Yellow The specimen is entirely submitted as follows: 1. ??12:00 and 6:00 tips 2-3. Cross sections, lesion in cassette 2 SSS 10/30/2021 Microscopic The final diagnosis is based on microscopic examination of appropriate sections of all specimens. 10/31/2021 [facility] Description 12:14 PM HEALTH CDT LABORATORY-C The epidermis is unremarkabl e. Within the upper dermis there are lobules of mature adipocytes located preferentially around small blood vessels. The presence of multicolored ink is confirmed on tissue sections. ENTRDE LABORATORY Additional 10/31/2021 [facility] Information Interpreted at [facility], Central Laboratory - [address], [place] [address] 12:14 PM HEALTH CDT LABORATORY-C [facility] LABORATORY Specimen Anatomical Collection Method Collection Time Receive d Time (Source) Location / / Volume Laterality Other (Left Arm) 10/29/2021 12:00 022 4:21 PM CDT PM CDT Antoinette Hsu MD PATHOLOGY/CYTOLOGY Performing Organization Address City/State/ZIP Code Phon e Number [employer] [address] [place] [address] LABORATORY-CENTRAL 2000 LABORATORY AMB EPIDURAL STEROID INJECTION (10/03/2021 12:00 AM CDT) Narrative This result has an attachment that is no t available. Ender Adams MD NEUROLOGY ORD from Last 3 Months Insurance Payer Benefit Plan / Subscriber ID Effective Dates Phone Addre ss Type Group MEDICARE PART A MEDICARE PART A [id number] 2014-Present ATTN: CLAIMS - HB USE ONLY HB ONLY [address] [place] [address] MEDICARE PART B MEDICARE PART B [id number] 2015-Present ATTN: CLAIMS - HB USE ONLY HB ONLY [address] [place] [address] MEDICA MR MEDICA PRIME [id number] 2020-Present [address] [address] [place] [address] MEDICA MEDICA PRIME [id number] 2020-Present [address] [address] [place] [address] Advance Directives Documents on File Type Date Recorded Patient Ham Doctor Explanati on Healthcare Directive 10/02/2010 IN HEALTH C ARE DIRECTIVE, [facility], 09/26/10 Latest Code Status on File Code Status Date Activated Date Inactivated Comments Full Code 10/23/2020 8:13 AM 10/23/2020 1:08 PM Code Status Discussion: Per Existing Order Care Teams Dice Spotter Relationship Specialty Start Date End Date Annie Worthington MD PCP - General Internal Medicine 10/16/201999 [place] [address] Alvino Tracey MD Surgery - Orthopedics 09/22/13 Dheeraj Valero Welt Sole Layer 09/22/[address] [place] [address] Staff, Other Clinical Dentistry - General 11/26/16 .
--- OUTSIDE RECORDS SUMMARY | 2022-01-02 14:25 | XMS_ITS | Encounter Summary ---
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 [facility] Procedures Prior Auth Rad Tx [place] IMRT COMPLEX [address] [place] [phone] Referral ID Status Reason Start Date Expiration Date Visits Requ ested Visits Authorized [id number] Closed 12/23/2020 12/11/2021 30 30 Encounter Details Date Type Department Care Team Description 12/23/2020 Hospital Encounter Department of Radiation John Santana I., [place]cology [place] [address] [place] [address] 1821 [place] [phone] [phone] Social History Tobacco Use Types Packs/Day Years [...] or relatives? How often do you attend tenriism or More than 4 times per year 12/24/2020 uatsdin services? Do you belong to any clubs or No 12/24/2020 organizations such as tenriism groups, unions, fraternal or athletic groups, or [...] place to sleep or slept in a halfway (including now)? Education Answer Date Recorded What [...]
== END 2021-12-29 12:55 | disposition home or self-care (01) ==
LOC: NFLDUCREF 01-02 14:22
PROVIDERS: PCP Internal Medicine; Visit Provider Student in an Organized Health Care Education/Training Program
DX: R39.89 Other symptoms and signs involving the genitourinary system (principal); R35.0 Frequency of micturition; N39.0 Urinary tract infection, site not specified
CPT/HCPCS: 87086

== ENCOUNTER 2021-12-31 09:30 | Outpatient (RCR) | payer MEDICARE, OTHER, SELFPAY ==
--- NOTE | 2021-11-04 16:42 | PT.OPEX ---
PT [facility] Out[facility] Eval PT [facility] Outpatient Eval Start: 11/04/21 12:51 Freq: Status: Active Protocol: Document 11/04/21 12:51 GABRIEL (Rec: 11/04/21 16:25 GABRIEL [id number]) E-signed By Nany Kirkland, PT Physical Therapy Outpatient Evaluation Insurance Information Insurance Name Medicare B,[employer] Medical Diagnosis Radiculopathy, low back pain Treating Diagnosis Low back pain, lumbar radiculopathy R side, R sided weakness, antalgic gait, foot drop, impaired balance Referring Emmanuel Bateman Subjective Subjective Maria Del Carmen reports to PT with primary complaint of low back pain with R sided radiculopathy. She received cortisone injection at R L5-S1 on 10/03/21 which provided minimal relief. Currently she is having difficulty sitting or standing for extended periods d/t flare up of low back pain and R LE pain. Pain is usually short lived that she can transition into different positions and not have to rely on pain medication. She is currently not using AD but frequently finds herself furniture walking around the house. She is nervous to have to transition to using a cane. She notes some neuropathy in B feet (R>L) possibly d/t chemotherapy treatments. She is having most amount of pain in the mornings getting out of bed. She reports no falls since initial onset of symptoms about 2 years ago. Goals are to improve walking and balance, standing tolerance, and walking with minimal pain. PMH: R TKA, small cell lung cancer, hypothyroidism, esophageal stricture MRI results indicated: At L5- S1 there is narrowing bilaterally with impingement of the L5 nerve. At L4-L5 on the left side there is also impingement. Date of Last Physician Visit 10/20/21 Date of Next Physician Visit 12/04/21 Precautions Therapy Limitations/Systems Review Not Limited Objective Other/Pertinent Objective Gait: small step length R LE, minimal toe clearance R LE with toe drag ~75% of the time , minimal hip flexion, limited stance time R LE, mid foot strike R LE. Significant improvement in foot clearance and stability with use of SEC Sensation: intact to light touch B LE SL stance: -6 sec L LE level pelvic -4 sec R LE with pelvic drop Hip and knee ROM: WNL and pain free B LE Strength (R/L): -Knee Ext: R: 4-/5, L: 4+/5 -Knee Flex: R: 4/5, L: 4+/5 -Hip Abd: R: 3+/5, L: 4/5 -Hip Ext: R: 4-/5, L: 4+/5 -Hip Flx: R: 4-/5, L: 4+/5 Ankle Strength (R/L): -DF: R: 4+/5, L: 5/5 -PF (uni heel raise): R: unable reps, L: 2 reps -Inv: R: 4/5, L: 5/5 -Chaya: R: 4/5, L: 5/5 SLR: - today Pelvic tilt: minimal pelvic mobility/dissociation initially however improves with cuing Functional Test Performed & Score Oswestry: 18, 36% Assessment Assessment/Impression Patient is a 71 year old female presenting to physical therapy for evaluation and treatment of low back pain with radiculopathy and associated R foot drop. Patient presents with Low back pain, lumbar radiculopathy R side, R sided weakness, antalgic gait, foot drop, impaired balance. These impairments are limiting the patients ability to walk in community safely without AD, sit for as long as she likes, wake without pain, stand for greater than 10 minutes. Patient appears motivated to participate in PT and presents with good prognosis to improve mobility, strength, proprioception and return to functional activities with skilled physical therapy intervention. Primary Functional Limitations walk in community safely without AD, sit for as long as she likes, wake without pain, stand for greater than 10 minutes Plan of Care Rehabilitation Potential Good Physical Therapy Goals In 6 weeks (12/16/21) Pt will be able to stand for > 15 min with <3/10 low back pain in order to cook/do dishes Patient will walk for 15 min, reporting pain < 2/10 in order to ambulate in home and in community. Patient will wake with <3/10 pain in order to improve ability to ambulate to restroom In 12 weeks (01/27/22) Pt will demonstrate at least 4 +/5 strength MMT in R ankle, knee, glut max & glut med to improve dynamic control with SLS activities and gait. Patient will walk for 30 min, reporting pain < 2/10 in order to ambulate in home and in community. Pt will be able to stand for > 30 min with <1/10 low back pain in order to cook/do dishes Pt will exhibit 20% improvement on the Modified Oswestry Outcome measure to demonstrate functional improvement and progress towards goals. Patient will wake with <1/10 pain in order to improve ability to ambulate to restroom Treatment Plan/Direct Interventions Gait Training,Joint Mobilization,Manual Therapy, Neuromuscular Re-ed,Self-Care/ Home Management,Therapeutic Activities,Therapeutic Exercises Frequency/Duration 2x/wk for 4 weeks with additional 1x/wk for 8 weeks prn Patient Will Be Discharged From Therapy Completion of LTG(s), Independent w/HEP, Independently Progressing Evaluation Billing Untimed Code Treatment Minutes 25 Complexity Moderate Certification Information Initial Certification Date 11/04/21 Ending Certification Date 01/27/22 Provider Signature Shows Agreement With POC & Medical Necessity Physician Comment/Change Comment or Changes Physician NPI Number #
== END 2021-12-31 13:54 | disposition home or self-care (01) ==
PROVIDERS: PCP Internal Medicine; Visit Provider Family Medicine
DX: M54.50 Low back pain, unspecified (principal); Z51.89 Encounter for other specified aftercare
CPT/HCPCS: 97110; 97112; 97162; 97535

== ENCOUNTER 2022-01-12 10:03 | Outpatient (CLI) | payer MEDICARE, OTHER, SELFPAY ==
--- OUTSIDE RECORDS SUMMARY | 2022-01-12 10:06 | XMS_ITS ---
:1950 Author Organization [facility] Address [address] [place] [address] Care Team Providers Name Role Phone Unavailable [...] Elapsed Days Session Dose Total Dos e [id number] 01/31/2021 39 200 cGy 6,000 cGy
--- OUTSIDE RECORDS SUMMARY | 2022-01-12 10:06 | XMS_ITS | Encounter Summary ---
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 [facility] Procedures Prior Auth Rad Tx [place] IMRT COMPLEX [address] [place] [phone] Referral ID Status Reason Start Date Expiration Date Visits Requ ested Visits Authorized [id number] Closed 12/23/2020 12/11/2021 30 30 Encounter Details Date Type Department Care Team Description 01/27/2021 Hospital Encounter Department of Radiation John Santana I., Oncology in [place] [address] [place] [address] 1821 [place] [phone] [phone] Social History Tobacco Use Types Packs/Day Years [...] More than 4 times per year 12/24/2020 adventism services? Do you belong to any clubs [...] Currently taking qd 0 12/19/2020 mg tablet tebihgiiqsdqlms-ckjkwcgun-p Apply 15 mL to the 480 mL [...]
--- OUTSIDE RECORDS SUMMARY | 2022-01-12 10:06 | XMS_ITS | Encounter Summary ---
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 [facility] Procedures Prior Auth Rad Tx [place] IMRT COMPLEX [address] [place] [phone] Referral ID Status Reason Start Date Expiration Date Visits Requ ested Visits Authorized [id number] Closed 12/23/2020 12/11/2021 30 30 Encounter Details Date Type Department Care Team Description 01/22/2021 Hospital Encounter Department of Radiation John Santana I., Oncology in [place] [address] [place] [address] 1821 [place] [phone] [phone] Social History Tobacco Use Types Packs/Day Years [...] More than 4 times per year 12/24/2020 orthodoxy services? Do you belong to any clubs [...] place to sleep or slept in a longterm (including now)? Education Answer Date Recorded What [...] Currently taking qd 0 12/19/2020 mg tablet svcmamazgduclqb-lqsgmnemc-f Apply 15 mL to the 480 mL [...]
--- OUTSIDE RECORDS SUMMARY | 2022-01-12 10:06 | XMS_ITS | Encounter Summary ---
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 [facility] Procedures Prior Auth Rad Tx [place] IMRT COMPLEX [address] [place] [phone] Referral ID Status Reason Start Date Expiration Date Visits Requ ested Visits Authorized [id number] Closed 12/23/2020 12/11/2021 30 30 Encounter Details Date Type Department Care Team Description 01/30/2021 Hospital Encounter Department of Radiation John Santana I., [place]cology [place] [address] [place] [address] 1821 [place] [phone] [phone] Social History Tobacco Use Types Packs/Day Years [...] More than 4 times per year 12/24/2020 mosque services? Do you belong to any clubs [...] place to sleep or slept in a group home (including now)? Education Answer Date Recorded [...] Currently taking qd 0 12/19/2020 mg tablet zgzmwudsqxjbqaz-cksrhbkuh-u Apply 15 mL to the 480 mL [...]
--- OUTSIDE RECORDS SUMMARY | 2022-01-12 10:06 | XMS_ITS | Encounter Summary ---
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 [facility] Procedures Prior Auth Rad Tx [place] IMRT COMPLEX [address] [place] [phone] Referral ID Status Reason Start Date Expiration Date Visits Requ ested Visits Authorized [id number] Closed 12/23/2020 12/11/2021 30 30 Encounter Details Date Type Department Care Team Description 01/21/2021 Hospital Encounter Department of Radiation John Santana I., Oncology [place] [address] [place] [address] 1821 [place] [phone] [phone] Social History Tobacco Use Types Packs/Day Years [...] or relatives? How often do you attend christian or More than 4 times per year 12/24/2020 baptism services? Do you belong to any clubs or No 12/24/2020 organizations such as christian groups, unions, fraternal or athletic groups, or [...] Currently taking qd 0 12/19/2020 mg tablet zfsfdxzkfmbadxz-cuhbubssp-z Apply 15 mL to the 480 mL [...]
--- OUTSIDE RECORDS SUMMARY | 2022-01-12 10:06 | XMS_ITS | Encounter Summary ---
:1950 Author Organization [facility] Address [address] [place] [address] Care Team Providers Name Role Phone Unavailable Primary Care Provider Unavailable Encounter Details Date Type Department Care Team Description 01/31/2021 Documentation Department of Radiation [facility] I[facility] [place] 200 [address] [facility] [address] [place] [address] [phone] (Wo rk) Social History Tobacco Use Types [...] More than 4 times per year 12/24/2020 yazidism services? Do you belong to any clubs [...] encounter Miscellaneous Notes Radiation Completion Notes - Julisas Ornelas, R.N. - 01/31/2021 11:59 PM FRAME ASSEMBLER DIAGNOSIS: 1. 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
--- OUTSIDE RECORDS SUMMARY | 2022-01-12 10:06 | XMS_ITS | Encounter Summary ---
:[address] 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 [facility] Procedures Prior Auth Rad Tx [place] IMRT COMPLEX [address] [place] [phone] Referral ID Status Reason Start Date Expiration Date Visits Requ ested Visits Authorized [id number] Closed 12/23/2020 12/11/2021 30 30 Encounter Details Date Type Department Care Team Description 01/28/2021 Hospital Encounter Department of Radiation John Santana I., [place]cology [place] [address] [place] [address] 1821 [place] [phone] [phone] Social History Tobacco Use Types Packs/Day Years [...] Currently taking qd 0 12/19/2020 mg tablet bnunovenhkijpkp-wclkzovso-o Apply 15 mL to the 480 mL [...]
--- OUTSIDE RECORDS SUMMARY | 2022-01-12 10:06 | XMS_ITS | Encounter Summary ---
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 [facility] Procedures Prior Auth Rad Tx [place] IMRT COMPLEX [address] [place] [phone] Referral ID Status Reason Start Date Expiration Date Visits Requ ested Visits Authorized [id number] Closed 12/23/2020 12/11/2021 30 30 Encounter Details Date Type Department Care Team Description 01/24/2021 Hospital Encounter Department of Radiation John Santana I., [place]cology [place] [address] [place] [address] 1821 [place] [phone] [phone] Social History Tobacco Use Types Packs/Day Years [...] Currently taking qd 0 12/19/2020 mg tablet pyccmwynkegmfjy-solgvtilw-s Apply 15 mL to the 480 mL [...]
--- OUTSIDE RECORDS SUMMARY | 2022-01-12 10:06 | XMS_ITS | Clinical Summary ---
:1950 Author Organization [facility] Address [address] [place] [address] Care Team Providers Name Role Phone Unavailable Primary Care Provider Unavailable Source Comments Patient records contain information from all sites at [facility]. For routine questions regarding patient records, call [phone] during business hours, M-F 8:00 AM - 5:00 PM Central Time. Record requests for emergency care only can be directed to [phone] at any time.[facility] Allergies Active Allergy Reactions Severity Noted Date [...] Comments Blood Pressure 131/67 01/29/2021 11:10 AM AIR INTELLIGENCE SPECIALIST Pulse 71 01/29/2021 11:10 AM AIR INTELLIGENCE SPECIALIST Temperature 36.3 ??C (97.3 ??F) 01/29/2021 11:10 AM AIR INTELLIGENCE SPECIALIST Respiratory Rate - - Oxygen Saturation 98% 01/21/2021 10:57 AM AIR INTELLIGENCE SPECIALIST at res t Inhaled Oxygen Concentration - - Weight 91.7 kg (202 lb 2.6 oz) 01/29/2021 11:10 AM AIR INTELLIGENCE SPECIALIST Height 159.5 cm (5' 2.8) 12/11/2020 2:01 [...] ype Group Dates MEDICARE MEDICARE A AND [id number] 2015-Prese [id number] [place] [address] MEDICA MEDICA PRIME [id number] 2020-Prese [phone] [address] [employer] [place] [address]
--- OUTSIDE RECORDS SUMMARY | 2022-01-12 10:06 | XMS_ITS | Encounter Summary ---
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 [facility] Procedures Prior Auth Rad Tx [place] IMRT COMPLEX [address] [place] [phone] Referral ID Status Reason Start Date Expiration Date Visits Requ ested Visits Authorized [id number] Closed 12/23/2020 12/11/2021 30 30 Encounter Details Date Type Department Care Team Description 01/29/2021 Hospital Encounter Department of Radiation John Santana I., [place]cology [place] [address] [place] [address] 1821 [place] [address] [phone] Social History Tobacco Use Types Packs/Day Years [...] More than 4 times per year 12/24/2020 voodoo services? Do you belong to any clubs [...] Currently taking qd 0 12/19/2020 mg tablet jslhhvoyhoizmnh-qkkmphzbm-p Apply 15 mL to the 480 mL [...]
--- OUTSIDE RECORDS SUMMARY | 2022-01-12 10:06 | XMS_ITS | Encounter Summary ---
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 [facility] Procedures Management Visit [address] [place] [address] [phone] Referral ID Status Reason Start Date Expiration Date Visits Requ ested Visits Authorized [id number] Closed 12/11/2020 12/11/2021 10 10 Encounter Details Date Type Department Care Team Description 01/29/2021 Hospital Encounter Department of Aleta Santana Neoplasm Radiation Oncology Catalina Muhammad Of Lung Upper Lobe in [place], [address] [place] [address] Or Bronchus Left [place], [place] (HCC) 1821 [facility] [address] [place], [place] [phone] (Work) [phone] Social History Tobacco Use Types Packs/Day Years [...] More than 4 times per year 12/24/2020 muslim services? Do you belong to any clubs [...] Comments Blood Pressure 131/67 01/29/2021 11:10 AM LIFT SUPERVISOR Pulse 71 01/29/2021 11:10 AM LIFT SUPERVISOR Temperature 36.3 ??C (97.3 ??F) 01/29/2021 11:10 AM LIFT SUPERVISOR Respiratory Rate - - Oxygen Saturation - - Inhaled Oxygen Concentration - - Weight 91.7 kg (202 lb 2.6 oz) 01/29/2021 11:10 AM LIFT SUPERVISOR Height - - Body Mass Index 36.05 12/11/2020 2:01 PM CDT documented in this encounter Medications at Time of Discharge Medication Sig Dispensed Refills Start Date End Date amoxicillin (AMOXIL) 500 mg 0 12/13/19 21 capsule fctwljqbfvxqmtb-jiudmoswt-z Apply 15 mL to the 480 mL [...] 8.6 mg by mouth 0 tablet daily. dexAMETHasone (DECADRON) 4 Currently taking qd 0 12/19/2020 mg tablet documented as of this encounter [...] under the care of Dr. Box at [facility]. Treatment Course: 1x L lung Plan ID [...] 06, 2020: ??The patient presented to the [facility] ED with a2 day history of painful [...] to a deep GIANCARLO station 11L node. ??Radial EBUS used to [...] the care of Dr. Miguel Wei at [facility] [place]. 9. December 04, 2020: ??Medical Oncology appointment [...] adjuvant chemotherapy. ??Referral to Radiation Oncology in [place]. ??The patient will keep her appointment next [...] by: Pat Hendrickson R.N. 01/29/2021 12:39 PM LIFT SUPERVISOR SUPERVISOR documented in this encounter Miscellaneous Notes Addendum Note - Nadira Capone, C.N.A. - 01/29/2021 11:00 AM LIFT SUPERVISOR Encounter addended by: Nadira Capone C.N.AJhony on: 01/30/2021 7:02 AM Actions taken: Letter saved SUPERVISOR documented in this encounter Plan of Treatment [...]
--- OUTSIDE RECORDS SUMMARY | 2022-01-12 10:06 | XMS_ITS | Encounter Summary ---
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 [facility] Procedures Prior Auth Rad Tx [place] IMRT COMPLEX [address] [place] [phone] Referral ID Status Reason Start Date Expiration Date Visits Requ ested Visits Authorized [id number] Closed 12/23/2020 12/11/2021 30 30 Encounter Details Date Type Department Care Team Description 01/20/2021 Hospital Encounter Department of Radiation John Santana I., [place]cology [place] [address] [place] [address] 1821 [place] [phone] [phone] Social History Tobacco Use Types Packs/Day Years [...] or relatives? How often do you attend restorationist or More than 4 times per year 12/24/2020 sabianist services? Do you belong to any clubs or No 12/24/2020 organizations such as restorationist groups, unions, fraternal or athletic groups, or [...] place to sleep or slept in a long term (including now)? Education Answer Date Recorded What [...] Currently taking qd 0 12/19/2020 mg tablet migehwlckqcapga-tpqnuodcp-j Apply 15 mL to the 480 mL [...]
--- OUTSIDE RECORDS SUMMARY | 2022-01-12 10:06 | XMS_ITS | Encounter Summary ---
:1950 Author Organization 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 [facility] Procedures Management Visit [address] [place] [phone] Referral ID Status Reason Start Date Expiration Date Visits Requ ested Visits Authorized [id number] Closed 12/11/2020 12/11/2021 10 10 Encounter Details Date Type Department Care Team Description 01/16/2021 Hospital Encounter Department of Aleta Santana Neoplasm Radiation Oncology Catalina Muhammad Of Lung Upper Lobe in [place], [address] [facility] Or Bronchus Left [place], [place] (HCC) 1821 [facility] [address] [place], [place] [phone] (Work) [phone] Social History Tobacco Use Types Packs/Day Years [...] More than 4 times per year 12/24/2020 sabianism services? Do you belong to any clubs [...] to sleep or slept in a senior care (including now)? Education Answer Date Recorded What [...] Currently taking qd 0 12/19/2020 mg tablet qkeavvvvondejxj-ngwiuxldo-s Apply 15 mL to the 480 mL [...] under the care of Dr. Box at [facility]. Treatment Course: 1x L lung Plan ID [...]
--- OUTSIDE RECORDS SUMMARY | 2022-01-12 10:06 | XMS_ITS | Encounter Summary ---
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 [facility] Procedures Prior Auth Rad Tx [place] IMRT COMPLEX [address] [place] [phone] Referral ID Status Reason Start Date Expiration Date Visits Requ ested Visits Authorized [id number] Closed 12/23/2020 12/11/2021 30 30 Encounter Details Date Type Department Care Team Description 01/31/2021 Hospital Encounter Department of Radiation John Santana I., [place] [address] [place] [address] 1821 [place] [phone] [phone] Social History Tobacco Use Types Packs/Day Years [...] or relatives? How often do you attend jehovah's witness or More than 4 times per year 12/24/2020 sikh services? Do you belong to any clubs or No 12/24/2020 organizations such as jehovah's witness groups, unions, fraternal or athletic groups, or [...] Currently taking qd 0 12/19/2020 mg tablet yrrlduvzspiybcs-hoencrlyt-z Apply 15 mL to the 480 mL [...]
--- OUTSIDE RECORDS SUMMARY | 2022-01-12 10:06 | XMS_ITS | Encounter Summary ---
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 [facility] Procedures Prior Auth Rad Tx [place] IMRT COMPLEX [address] [place] [phone] Referral ID Status Reason Start Date Expiration Date Visits Requ ested Visits Authorized [id number] Closed 12/23/2020 12/11/2021 30 30 Encounter Details Date Type Department Care Team Description 01/16/2021 Hospital Encounter Department of Radiation John Santana I., [place]cology in [place] [address] [place] [address] 1821 [place] [phone] [phone] Social History Tobacco Use Types Packs/Day Years [...] More than 4 times per year 12/24/2020 jehovah's witness services? Do you belong to any clubs [...]
--- OUTSIDE RECORDS SUMMARY | 2022-01-12 10:06 | XMS_ITS | Encounter Summary ---
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 [facility] Procedures Management Visit [address] [place] [address] [phone] Referral ID Status Reason Start Date Expiration Date Visits Requ ested Visits Authorized [id number] Closed 12/11/2020 12/11/2021 10 10 Encounter Details Date Type Department Care Team Description 01/21/2021 Hospital Encounter Department of Susan Santana M.D. [address] [place] [phone] Malignant Neoplasm Radiation Oncology Jj Sheldon M.D. [address] [place] [address] Of Lung Upper Lobe in [place], Or Bronchus L t [place] ([facility]) 1821 [place] [address] Social History Tobacco Use Types Packs/Day Years [...] or the highest technical, or vocational p [facility] degree you have received? Sex Assigned at Date Recorded Female 12/06/2020 4:25 PM CDT documented as of this encounter Last Filed Vital Signs Vital Sign Reading Time Taken Comments Blood Pressure 111/57 01/21/2021 10:57 AM PHYSICIAN EXECUTIVE Pulse 68 01/21/2021 10:57 AM PHYSICIAN EXECUTIVE Temperature 36.6 ??C (97.8 ??F) 01/21/2021 10:57 AM PHYSICIAN EXECUTIVE Respiratory Rate - - Oxygen Saturation 98% 01/21/2021 10:57 AM PHYSICIAN EXECUTIVE at res t Inhaled Oxygen Concentration - - Weight 91.8 kg (202 lb 6.1 oz) 01/21/2021 10:57 AM PHYSICIAN EXECUTIVE Height - - Body Mass Index 36.08 12/11/2020 2:01 PM CDT documented in this encounter Medications at Time of Discharge Medication Sig Dispensed Refills Start Date End Date amoxicillin (AMOXIL) 500 mg 0 12/13/19 21 capsule dexAMETHasone (DECADRON) 4 Currently taking qd 0 12/19/2020 mg tablet edgnssneldkbinz-ptidnbmal-e Apply 15 mL to the 480 mL [...] under the care of Dr. Box at [facility] [place]. Treatment Course: 1x L lung Plan ID [...] by: Pat Hendrickson R.N. 01/21/2021 12:15 PM PHYSICIAN EXECUTIVE I saw and evaluated the patient and participated in the hayes portions of the service. I reviewed the documentation of Pat Hendrickson R.N. and agree with the findings and plan. The patient appears well onexam. She is tolerating treatment well. She will continue with treatment as planned. Signed by: Jj Sheldon M.D. 01/21/2021 2:36 PM PHYSICIAN EXECUTIVE [facility] [address] [place] [address] ICIAN EXECUTIVE documented in this encounter Plan of Treatment [...]
--- OUTSIDE RECORDS SUMMARY | 2022-01-12 10:06 | XMS_ITS | Encounter Summary ---
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 [facility] Procedures Prior Auth Rad Tx [place] IMRT COMPLEX [address] [place] [phone] Referral ID Status Reason Start Date Expiration Date Visits Requ ested Visits Authorized [id number] Closed 12/23/2020 12/11/2021 30 30 Encounter Details Date Type Department Care Team Description 01/23/2021 Hospital Encounter Department of Radiation John Santana I., [place]cology [place] [address] [place] [address] 1821 [place] [phone] [phone] Social History Tobacco Use Types Packs/Day Years [...] or relatives? How often do you attend synagogue or More than 4 times per year 12/24/2020 congregation services? Do you belong to any clubs or No 12/24/2020 organizations such as synagogue groups, unions, fraternal or athletic groups, or [...] place to sleep or slept in a detention (including now)? Education Answer Date Recorded What [...] Currently taking qd 0 12/19/2020 mg tablet mybxhsjszamcwyy-aylfjhivz-j Apply 15 mL to the 480 mL [...]
--- OUTSIDE RECORDS SUMMARY | 2022-01-12 10:06 | XMS_ITS | Encounter Summary ---
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 [facility] Procedures Prior Auth Rad Tx [place] IMRT COMPLEX [address] [place] [phone] Referral ID Status Reason Start Date Expiration Date Visits Requ ested Visits Authorized [id number] Closed 12/23/2020 12/11/2021 30 30 Encounter Details Date Type Department Care Team Description 01/17/2021 Hospital Encounter Department of Radiation John Santana I., [place]cology [place] [address] [place] [address] 1821 [place] [phone] [phone] Social History Tobacco Use Types Packs/Day Years [...] or relatives? How often do you attend mormon or More than 4 times per year 12/24/2020 congregational services? Do you belong to any clubs or No 12/24/2020 organizations such as mormon groups, unions, fraternal or athletic groups, or [...] or the highest technical, or vocational p heathre degree you have received? Sex Assigned at Date Recorded Female 12/06/2020 4:25 PM CDT documented as of this encounter Medications at Time of Discharge Medication Sig Dispensed Refills Start Date End Date amoxicillin (AMOXIL) 500 mg 0 12/13/19 21 capsule dexAMETHasone (DECADRON) 4 Currently taking qd 0 12/19/2020 mg tablet vkjfhaqxpcxhwpj-gtgawsgov-d Apply 15 mL to the 480 mL [...]
--- OUTSIDE RECORDS SUMMARY | 2022-01-12 10:06 | XMS_ITS | Encounter Summary ---
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 [facility] Procedures Prior Auth Rad Tx [place] IMRT COMPLEX [address] [place] [phone] Referral ID Status Reason Start Date Expiration Date Visits Requ ested Visits Authorized [id number] Closed 12/23/2020 12/11/2021 30 30 Encounter Details Date Type Department Care Team Description 01/15/2021 Hospital Encounter Department of Radiation John Santana I., [place]cology in [place] [address] [place] [address] 1821 [place] [phone] [phone] Social History Tobacco Use Types Packs/Day Years [...] or relatives? How often do you attend holiness or More than 4 times per year 12/24/2020 gnosticism services? Do you belong to any clubs or No 12/24/2020 organizations such as holiness groups, unions, fraternal or athletic groups, or [...]
--- OUTSIDE RECORDS SUMMARY | 2022-01-12 10:07 | XMS_ITS | Encounter Summary ---
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 [facility] Procedures Prior Auth Rad Tx [place] IMRT COMPLEX [address] [place] [phone] Referral ID Status Reason Start Date Expiration Date Visits Requ ested Visits Authorized [id number] Closed 12/23/2020 12/11/2021 30 30 Encounter Details Date Type Department Care Team Description 12/26/2020 Hospital Encounter Department of Radiation John Santana I., [place]cology [place] [address] [place] [address] 1821 [place] [phone] [phone] Social History Tobacco Use Types Packs/Day Years [...] More than 4 times per year 12/24/2020 buddhism services? Do you belong to any clubs [...]
--- OUTSIDE RECORDS SUMMARY | 2022-01-12 10:07 | XMS_ITS | Encounter Summary ---
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 [facility] Procedures Prior Auth Rad Tx [place] IMRT COMPLEX [address] [place] [phone] Referral ID Status Reason Start Date Expiration Date Visits Requ ested Visits Authorized [id number] Closed 12/23/2020 12/11/2021 30 30 Encounter Details Date Type Department Care Team Description 12/30/2020 Hospital Encounter Department of Radiation John Santana I., [place]cology [place] [address] [place] [address] 1821 [place] [phone] [phone] Social History Tobacco Use Types Packs/Day Years [...] More than 4 times per year 12/24/2020 taoism services? Do you belong to any clubs [...]
--- OUTSIDE RECORDS SUMMARY | 2022-01-12 10:07 | XMS_ITS | Encounter Summary ---
:[address] 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 [facility] Procedures Management Visit [address] [place] [phone] Referral ID Status Reason Start Date Expiration Date Visits Requ ested Visits Authorized [id number] Closed 12/11/2020 12/11/2021 10 10 Encounter Details Date Type Department Care Team Description 12/24/2020 Hospital Encounter Department of Aleta Santana Neoplasm Radiation Oncology Catalina Muhammad Of Lung Upper Lobe in [place], 200 [address] [facility] Or Bronchus Left [place], [place] (HCC) 1821 [facility] [address] [place], [place] [phone] (Work) [phone] Social History Tobacco Use Types Packs/Day Years [...] More than 4 times per year 12/24/2020 holiness services? Do you belong to any clubs [...] under the care of Dr. Box at [place] [facility] [place]. Treatment Course: 1x L lung Plan ID Fractions Dose / Fraction (cGy) Dose Treated (cGy) Dose Planned (cGy) First Treatment Last Treatment Elapsed Days F1 L lung [phone] 12/23/2020 12/24/2020 1 Course Summary 12/23/2020 12/24/2020 [...] Patient plans to follow up with Dr. Wei([facility]) to further discuss headache symptoms. [...]
--- OUTSIDE RECORDS SUMMARY | 2022-01-12 10:07 | XMS_ITS | Encounter Summary ---
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 [facility] Procedures Prior Auth Rad Tx [place] IMRT COMPLEX [address] [place] [phone] Referral ID Status Reason Start Date Expiration Date Visits Requ ested Visits Authorized [id number] Closed 12/23/2020 12/11/2021 30 30 Encounter Details Date Type Department Care Team Description 12/25/2020 Hospital Encounter Department of Radiation John Santana I., [place]cology in [place] [address] [place] [address] 1821 [place] [phone] [phone] Social History Tobacco Use Types Packs/Day Years [...] place to sleep or slept in a skilled nursing (including now)? Education Answer Date Recorded What [...]
--- OUTSIDE RECORDS SUMMARY | 2022-01-12 10:07 | XMS_ITS | Encounter Summary ---
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 [facility] Procedures Initial Rad Onc Treatment Planning CT Simulation [address] [place] [address] [phone] Referral ID Status Reason Start Date Expiration Date Visits Requ ested Visits Authorized [id number] Closed 12/11/2020 12/11/2021 1 1 Encounter Details Date Type Department Care Team Description 12/17/2020 Hospital Encounter Department of Aleta Santana Neoplasm Radiation Oncology [place] Of Lung Upper Lobe in [place], [address] [place] [address] Or Bronchus Left [place], [place] (HCC) 1821 [facility] [address] [place], [place] [phone] [address] (Work) [phone] Social History Tobacco Use Types Packs/Day Years [...] or relatives? How often do you attend restorationism or More than 4 times per year 12/24/2020 roman catholic services? Do you belong to any clubs or No 12/24/2020 organizations such as restorationism groups, unions, fraternal or athletic groups, or [...] place to sleep or slept in a fpc (including now)? Sex Assigned at Date Recorded [...] imaging was appropriate and completed without incident. 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
--- OUTSIDE RECORDS SUMMARY | 2022-01-12 10:07 | XMS_ITS | Encounter Summary ---
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 [facility] Procedures Prior Auth Rad Tx [place] IMRT COMPLEX [address] [place] [phone] Referral ID Status Reason Start Date Expiration Date Visits Requ ested Visits Authorized [id number] Closed 12/23/2020 12/11/2021 30 30 Encounter Details Date Type Department Care Team Description 01/07/2021 Hospital Encounter Department of Radiation John Santana I., Oncology [place] [address] [place] [address] 1821 [place] [phone] [phone] Social History Tobacco Use Types Packs/Day Years [...] More than 4 times per year 12/24/2020 caodaism services? Do you belong to any clubs [...]
--- OUTSIDE RECORDS SUMMARY | 2022-01-12 10:07 | XMS_ITS | Encounter Summary ---
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 [facility] Procedures Prior Auth Rad Tx [place] IMRT COMPLEX [address] [place] [phone] Referral ID Status Reason Start Date Expiration Date Visits Requ ested Visits Authorized [id number] Closed 12/23/2020 12/11/2021 30 30 Encounter Details Date Type Department Care Team Description 01/08/2021 Hospital Encounter Department of Radiation John Santana I., [place]cology [place] [address] [place] [address] 1821 [place] [phone] [phone] Social History Tobacco Use Types Packs/Day Years [...] or relatives? How often do you attend adventist or More than 4 times per year 12/24/2020 worship services? Do you belong to any clubs or No 12/24/2020 organizations such as adventist groups, unions, fraternal or athletic groups, or [...]
--- OUTSIDE RECORDS SUMMARY | 2022-01-12 10:07 | XMS_ITS | Encounter Summary ---
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 [facility] Procedures Prior Auth Rad Tx [place] IMRT COMPLEX [address] [place] [phone] Referral ID Status Reason Start Date Expiration Date Visits Requ ested Visits Authorized [id number] Closed 12/23/2020 12/11/2021 30 30 Encounter Details Date Type Department Care Team Description 01/03/2021 Hospital Encounter Department of Radiation John Santana I., [place]cology [place] [address] [place] [address] 1821 [place] [phone] [phone] Social History Tobacco Use Types Packs/Day Years [...] or relatives? How often do you attend scientologist or More than 4 times per year 12/24/2020 oriental orthodox services? Do you belong to any clubs or No 12/24/2020 organizations such as scientologist groups, unions, fraternal or athletic groups, or [...] or slept in a fpc (including now)? Education Answer Date Recorded What [...]
--- OUTSIDE RECORDS SUMMARY | 2022-01-12 10:07 | XMS_ITS | Encounter Summary ---
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 [facility] Procedures Prior Auth Rad Tx [place] IMRT COMPLEX [address] [place] [phone] Referral ID Status Reason Start Date Expiration Date Visits Requ ested Visits Authorized [id number] Closed 12/23/2020 12/11/2021 30 30 Encounter Details Date Type Department Care Team Description 12/24/2020 Hospital Encounter Department of Radiation John Santana I., Oncology in [place] [address] [place] [address] 1821 [place] [phone] [phone] Social History Tobacco Use Types Packs/Day Years [...]
--- OUTSIDE RECORDS SUMMARY | 2022-01-12 10:07 | XMS_ITS | Encounter Summary ---
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 [facility] Procedures Prior Auth Rad Tx [place] IMRT COMPLEX [address] [place] [phone] Referral ID Status Reason Start Date Expiration Date Visits Requ ested Visits Authorized [id number] Closed 12/23/2020 12/11/2021 30 30 Encounter Details Date Type Department Care Team Description 01/02/2021 Hospital Encounter Department of Radiation John Santana I., Oncology in [place] [address] [place] [address] 1821 [place] [phone] [phone] Social History Tobacco Use Types Packs/Day Years [...] More than 4 times per year 12/24/2020 restorationist services? Do you belong to any clubs [...]
--- OUTSIDE RECORDS SUMMARY | 2022-01-12 10:07 | XMS_ITS | Encounter Summary ---
:1950 Author Organization [facility] Address [address] [place] [address] Care Team Providers Name Role Phone Unavailable Primary Care Provider Unavailable Encounter Details Date Type Department Care Team Description 12/09/2020 Clinical Communication Department of Aleta Santana Radiation Oncology in [place] [facility] 200 [address] [facility] 1821 [place] [phone] Social History Tobacco Use Types Packs/Day Years [...] or relatives? How often do you attend mandaen or More than 4 times per year 12/24/2020 hindu services? Do you belong to any clubs or No 12/24/2020 organizations such as mandaen groups, unions, fraternal or athletic groups, or [...] or slept in a long-term (including now)? Sex Assigned at Date Recorded [...] 12R node. 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 We discussed obtaining a [...]
--- OUTSIDE RECORDS SUMMARY | 2022-01-12 10:07 | XMS_ITS | Encounter Summary ---
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 [facility] Procedures Prior Auth Rad Tx [place] IMRT COMPLEX [address] [place] [phone] Referral ID Status Reason Start Date Expiration Date Visits Requ ested Visits Authorized [id number] Closed 12/23/2020 12/11/2021 30 30 Encounter Details Date Type Department Care Team Description 01/06/2021 Hospital Encounter Department of Radiation John Santana I., Oncology in [place] [address] [place] [address] 1821 [place] [phone] [phone] Social History Tobacco Use Types Packs/Day Years [...] place to sleep or slept in a [place] [facility] [place] (including now)? Education Answer Date Recorded What [...]
--- OUTSIDE RECORDS SUMMARY | 2022-01-12 10:07 | XMS_ITS | Encounter Summary ---
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 [facility] Region Procedures Management Visit [address] [place] [phone] Referral ID Status Reason Start Date Expiration Date Visits Requ ested Visits Authorized [id number] Closed 12/11/2020 12/11/2021 10 10 Encounter Details Date Type Department Care Team Description 12/31/2020 Hospital Encounter Department of Jj Sheldon Neoplasm Radiation Oncology [place] Car Of Lung Upper Lobe in [place], [address] [place] [address] Or Bronchus Left [place], [place] (HCC) 1821 [facility] [address] [place], [place] [phone] (Work) [phone] Social History Tobacco Use Types Packs/Day Years [...] or relatives? How often do you attend jew or More than 4 times per year 12/24/2020 synagogue services? Do you belong to any clubs or No 12/24/2020 organizations such as jew groups, unions, fraternal or athletic groups, or [...] under the care of Dr. Box at [facility] [place]. Treatment Course: 1x L lung Plan ID Fractions Dose / Fraction (cGy) Dose Treated (cGy) Dose Planned (cGy) First Treatment Last Treatment Elapsed Days F1 L lung 200 1200 6000 12/23/2020 12/30/2020 7 Course Summary 12/23/2020 12/30/2020 7 The patient was seen and examined today with Dr. Shedlon. The patient reports 6 out of 10 [...] Patient plans to follow up with Dr. Wie ([facility]) to further discuss headache symptoms. [...] Jj Sheldon M.D. 12/31/2020 3:54 PM CDT [facility] Radiation Therapy Center [address] [place] [address] documented in this encounter Miscellaneous Notes Addendum [...]
--- OUTSIDE RECORDS SUMMARY | 2022-01-12 10:07 | XMS_ITS | Encounter Summary ---
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 [facility] Procedures Prior Auth Rad Tx [place] IMRT COMPLEX [address] [place] [phone] Referral ID Status Reason Start Date Expiration Date Visits Requ ested Visits Authorized [id number] Closed 12/23/2020 12/11/2021 30 30 Encounter Details Date Type Department Care Team Description 01/13/2021 Hospital Encounter Department of Radiation John Santana I., Oncology in [place] [address] [place] [address] 1821 [place] [phone] [phone] Social History Tobacco Use Types Packs/Day Years [...] or relatives? How often do you attend presybeterian or More than 4 times per year 12/24/2020 roman catholic services? Do you belong to any clubs or No 12/24/2020 organizations such as presybeterian groups, unions, fraternal or athletic groups, or [...]
--- OUTSIDE RECORDS SUMMARY | 2022-01-12 10:07 | XMS_ITS | Encounter Summary ---
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 [facility] Procedures Management Visit [address] [place] [phone] Referral ID Status Reason Start Date Expiration Date Visits Requ ested Visits Authorized [id number] Closed 12/11/2020 12/11/2021 10 10 Encounter Details Date Type Department Care Team Description 01/08/2021 - Hospital Encounter Department of Leenstra, Malignan t Neoplasm 01/09/2021 Radiation Oncology Jj Car M.D. Of Lung Upper Lobe in [place], [address] [facility] Or Bronchus Left [place], [place] (HCC) 1821 [facility] [address] [place], [place] [phone] (Work) [phone] Social History Tobacco Use Types Packs/Day Years [...] More than 4 times per year 12/24/2020 mandaeism services? Do you belong to any clubs [...] under the care of Dr. Box at [facility] [place]. Treatment Course: 1x L lung Plan ID [...] Jj Sheldon M.D. 01/09/2021 6:31 AM CDT [facility] Radiation Therapy Center [address] [place] [address] documented in this encounter Plan of Treatment [...]
--- OUTSIDE RECORDS SUMMARY | 2022-01-12 10:07 | XMS_ITS | Encounter Summary ---
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 [facility] Procedures Prior Auth Rad Tx [place] IMRT COMPLEX [address] [place] [phone] Referral ID Status Reason Start Date Expiration Date Visits Requ ested Visits Authorized [id number] Closed 12/23/2020 12/11/2021 30 30 Encounter Details Date Type Department Care Team Description 12/23/2020 Hospital Encounter Department of Radiation John Santana I., Oncology in [place] [address] [place] [address] 1821 [place] [phone] [phone] Social History Tobacco Use Types Packs/Day Years [...]
--- OUTSIDE RECORDS SUMMARY | 2022-01-12 10:07 | XMS_ITS | Encounter Summary ---
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 [facility] Procedures Prior Auth Rad Tx [place] IMRT COMPLEX [address] [place] [phone] Referral ID Status Reason Start Date Expiration Date Visits Requ ested Visits Authorized [id number] Closed 12/23/2020 12/11/2021 30 30 Encounter Details Date Type Department Care Team Description 12/31/2020 Hospital Encounter Department of Radiation John Santana I., Oncology in [place] [address] [place] [address] 1821 [place] [phone] [phone] Social History Tobacco Use Types Packs/Day Years [...]
--- OUTSIDE RECORDS SUMMARY | 2022-01-12 10:07 | XMS_ITS | Encounter Summary ---
:1950 Author Organization [facility] Address [address] [place] [address] Care Team Providers Name Role Phone Unavailable Primary Care Provider Unavailable Reason for Referral Specialty Diagnoses / Procedures Referred By Contact Refer red To Contact Aleta Santana M.D. [facility] Region [address] [place] [address] [phone] Referral ID Status Reason Start Date Expiration Date Visits Requ ested Visits Authorized Encounter Details Date Type Department Care Team Description 12/27/2020 Hospital Encounter Department of Susan Santana M.D. [address] [place] [address] [phone] Malignant Neoplasm Radiation Oncology Pat Hendrickson [facility] [address] [place] [address] [phone] Of Lung Upper Lobe in [place], Or Bronchus L [facility] 1821 [place] [address] Social History Tobacco Use Types [...] or relatives? How often do you attend judaism or More than 4 times per year 12/24/2020 mosque services? Do you belong to any clubs or No 12/24/2020 organizations such as judaism groups, unions, fraternal or athletic groups, or [...]
--- OUTSIDE RECORDS SUMMARY | 2022-01-12 10:07 | XMS_ITS | Encounter Summary ---
:1950 Author Organization [facility] Address [address] [place] [address] Care Team Providers Name Role Phone Unavailable Primary Care Provider Unavailable Reason for Referral Outpatient (Routine) - Closed Specialty Diagnoses / Procedures Referred By Contact Refer red To Contact Radiation Oncology Aleta Santana [facility] [place] [address] [place] [phone] Referral ID Status Reason Start Date Expiration Date Visits Requ ested Visits Authorized [id number] Closed 12/11/2020 12/11/2021 10 10 Specialty Diagnoses / Procedures Referred By Contact Refer red To Contact Aleta Santana M.D. [facility] [address] [place] [phone] Referral ID Status Reason Start Date Expiration Date Visits Requ ested Visits Authorized Outpatient (Routine) - Closed Specialty Diagnoses / Procedures Referred By Contact Refer red To Contact Social Work Aleta Santana M.D. 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 [address] [place] [address] Referral ID Status Reason Start Date Expiration Date Visits Requ ested Visits Authorized [id number] Closed 12/05/2020 12/05/2021 1 1 Encounter Details Date Type Department Care Team Description 12/11/2020 Hospital Encounter Department of Aleta Santana Neoplasm Radiation Oncology [place] Muhammad Of Lung Upper Lobe in [address] Or Bronchus Left [place], [place] (HCC) (Primary Dx) [address] [facility] [address] [place], [place] [phone] [address] (Work) [phone] Social History Tobacco Use Types Packs/Day Years [...] More than 4 times per year 12/24/2020 faith services? Do you belong to any clubs [...] or slept in a prison (including now)? Sex Assigned at Date Recorded [...] 06, 2020: The patient presented to the [facility] ED with a 2day history [...] the care of Dr. Miguel Wei at [facility] [place]. 9. December 04, 2020: Medical Oncology appointment with Dr. Oziel Box who discussed that the hypermetabolic lymph node initially read as a station 5 sub aortic lymph node [facility] and it appears to be a station 12L lymph node instead. Therefore, the patient has T2a N1 disease according to their board He felt that the patient would benefit more from definitive chemoradiation followed by adjuvant durvalumab instead of surgery followed by adjuvant chemotherapy. Referral to Radiation Oncology in [place]. The patient will keep her appointment next [...] Tonsillectomy, 1961 SOCIAL HISTORY She lives in [place], [place]. She is . She has 4 [...] was able to review her casewith our [facility] daily lung tumor board meeting on Wednesday [...] We discussed the acute as well as assisted risks, including, but not limited to fatigue, [...] M.D. 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
--- OUTSIDE RECORDS SUMMARY | 2022-01-12 10:07 | XMS_ITS | Encounter Summary ---
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 [facility] Procedures Prior Auth Rad Tx [place] IMRT COMPLEX [address] [place] [phone] Referral ID Status Reason Start Date Expiration Date Visits Requ ested Visits Authorized [id number] Closed 12/23/2020 12/11/2021 30 30 Encounter Details Date Type Department Care Team Description 12/27/2020 Hospital Encounter Department of Radiation John Santana I., Oncology in [place] [address] [place] [address] 1821 [place] [phone] [phone] Social History Tobacco Use Types Packs/Day Years [...] or relatives? How often do you attend gnosticist or More than 4 times per year 12/24/2020 pentecostal services? Do you belong to any clubs or No 12/24/2020 organizations such as gnosticist groups, unions, fraternal or athletic groups, or [...]
--- OUTSIDE RECORDS SUMMARY | 2022-01-12 10:07 | XMS_ITS | Encounter Summary ---
:1950 Author Organization [facility] Address [address] [place] [address] Care Team Providers Name Role Phone Unavailable Primary Care Provider Unavailable Reason for Referral Outpatient (Routine) - Closed Specialty Diagnoses / Procedures Referred By Contact Refer red To Contact Aleta Yo M.D. [facility] [address] [place] [phone] Referral ID Status Reason Start Date Expiration Date Visits Requ ested Visits Authorized [id number] Closed 12/11/2020 12/11/2021 1 1 Reason for Visit Outpatient (Routine) - Closed Specialty Diagnoses / Procedures Referred By Contact Refer red To Contact Aleta Yo M.D. [facility] Region [address] [place] [phone] Referral ID Status Reason Start Date Expiration Date Visits Requ ested Visits Authorized [id number] Closed 12/11/2020 12/11/2021 1 1 Encounter Details Date Type Department Care Team Description 12/30/2020 Hospital Encounter Department of Ruby Benavides Malign ant Neoplasm Of Radiation Oncology [facility] Lung Upper Lobe Or in [place], Bronchus Left (HCC) [place] (Work) (Primary Dx) [address] [place] [address] Social History Tobacco Use Types [...] or relatives? How often do you attend buddhist or More than 4 times per year 12/24/2020 advent services? Do you belong to any clubs or No 12/24/2020 organizations such as buddhist groups, unions, fraternal or athletic groups, or [...] primary care provider on file. Primary Language: Estonian REASON FOR CONSULT Initial social work consult [...] received permission to contact them. Spirituality / Congregation / Culture: Alfonso Em Employment: retired from [employer] after 20 years employment there Psychosocial Risk Factors impacting the patient: none reported Abuse, Neglect, Maltreatment, Trauma: Current: None reported. Past: None reported. ENVIRONMENTAL SUPPORTS Current Living Situation: Ms. Wells resides in [facility] where son is currently living with her Patient's Home Environment: basement is being remodeled by son FUNCTIONAL STATUS (ADL's and IADL's) It is anticipated that the patient will need assistance with tasks appropriate to the patient's age/development. 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 Wells met with this dialysis social worker today for an initial social work consult and psychosocial assessment. She was open and forthright in sharing her overall life context and current experience with radiation therapy. She has lived in [place] for many years. Ms. 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
--- OUTSIDE RECORDS SUMMARY | 2022-01-12 10:07 | XMS_ITS | Encounter Summary ---
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 [facility] Procedures Prior Auth Rad Tx [place] IMRT COMPLEX [address] [place] [phone] Referral ID Status Reason Start Date Expiration Date Visits Requ ested Visits Authorized [id number] Closed 12/23/2020 12/11/2021 30 30 Encounter Details Date Type Department Care Team Description 01/01/2021 Hospital Encounter Department of Radiation John Santana I., Oncology in [place] [address] [place] [address] 1821 [place] [phone] [phone] Social History Tobacco Use Types Packs/Day Years [...] More than 4 times per year 12/24/2020 temple services? Do you belong to any clubs [...]
--- OUTSIDE RECORDS SUMMARY | 2022-01-12 10:07 | XMS_ITS | Encounter Summary ---
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 [facility] Region Procedures Management Visit [address] [place] [phone] Referral ID Status Reason Start Date Expiration Date Visits Requ ested Visits Authorized [id number] Closed 12/11/2020 12/11/2021 10 10 Encounter Details Date Type Department Care Team Description 01/14/2021 Hospital Encounter Department of Aleta Santana Neoplasm Radiation Oncology [place] Muhammad Of Lung Upper Lobe in [place], [address] [place] [address] Or Bronchus Left [place], [place] (HCC) [address] [facility] [address] [place], [place] [phone] (Work) [phone] Social History Tobacco Use Types Packs/Day Years [...] under the care of Dr. Box at [facility] [place]. Treatment Course: 1x L lung Plan ID [...]
--- OUTSIDE RECORDS SUMMARY | 2022-01-12 10:07 | XMS_ITS | Encounter Summary ---
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 [facility] Procedures Prior Auth Rad Tx [place] IMRT COMPLEX [address] [place] [phone] Referral ID Status Reason Start Date Expiration Date Visits Requ ested Visits Authorized [id number] Closed 12/23/2020 12/11/2021 30 30 Encounter Details Date Type Department Care Team Description 01/09/2021 Hospital Encounter Department of Radiation John Santana I., Oncology in [place] [address] [place] [address] 1821 [place] [phone] [phone] Social History Tobacco Use Types Packs/Day Years [...] More than 4 times per year 12/24/2020 jainism services? Do you belong to any clubs [...]
--- OUTSIDE RECORDS SUMMARY | 2022-01-12 10:07 | XMS_ITS | Encounter Summary ---
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 [facility] Procedures Prior Auth Rad Tx [place] IMRT COMPLEX [address] [place] [phone] Referral ID Status Reason Start Date Expiration Date Visits Requ ested Visits Authorized [id number] Closed 12/23/2020 12/11/2021 30 30 Encounter Details Date Type Department Care Team Description 01/10/2021 Hospital Encounter Department of Radiation John Santana I., Oncology in [place] [address] [place] [address] 1821 [place] [phone] [phone] Social History Tobacco Use Types Packs/Day Years [...] or relatives? How often do you attend baptism or More than 4 times per year 12/24/2020 scientology services? Do you belong to any clubs or No 12/24/2020 organizations such as baptism groups, unions, fraternal or athletic groups, or [...]
--- OUTSIDE RECORDS SUMMARY | 2022-01-12 10:07 | XMS_ITS | Encounter Summary ---
:[address] 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 [facility] Procedures Prior Auth Rad Tx [place] IMRT COMPLEX [address] [place] [phone] Referral ID Status Reason Start Date Expiration Date Visits Requ ested Visits Authorized [id number] Closed 12/23/2020 12/11/2021 30 30 Encounter Details Date Type Department Care Team Description 01/14/2021 Hospital Encounter Department of Radiation John Santana I., Oncology in [place] [address] [place] [address] 1821 [place] [phone] [phone] Social History Tobacco Use Types Packs/Day Years [...] More than 4 times per year 12/24/2020 rastafari services? Do you belong to any clubs [...]
--- OUTSIDE RECORDS SUMMARY | 2022-01-12 10:07 | XMS_ITS | Clinical Summary ---
:1950 Author Organization [facility] [place] [address] Care Team Providers Name Role Phone Alvino [...] Encounters Date Type Specialty Care Team Description 01/02/2022 Lab Requisition Lupis Edwards PA 10/30/2021 Lab Requisition Antoinette Hsu MD from Last 3 Months Immunizations Name Administration Dates Next Due COVID-19 vaccine (Signaturit 30mcg/0.3mL) PF, 1, 05/17/2020 MDV Influenza, High-dose Inactivated 12/24/2014 Influenza, High-dose Quadrivalent Inactivated 12/28/2019 Influenza, Inactivated IIV3 (Age 65+ Years) Preserv 12/16/19 18 Free Pneumococcal Poly,23-Valent (Pneumovax) 12/15/2017 Pneumococcal conj 13-Valent (Prevnar 13) 11/26/2016 Td (Age >=7 Years) 03/15/1998 Tdap 08/24/2008, 08/24/2008 Family History Medical History Relation Name Comments Hyperlipidemia Brother Alcohol/Drug Father Allergies Father Arthritis Father osteoarthritis Heart Disease Father [place] Hypertension Father Other Father MIGRAINES Cancer-breast Maternal [...] Name Priority Date/Time Associated Diagnosis Comme nts REFERRAL ID/SUSC, Routine 12/29/2021 12:54 PM Res ults for this URINE CDT procedure are i n the results section. LAB TRACKING EVENT Routine 10/29/2021 12:00 PM CDT PATH TISSUE EXAM Routine 10/29/2021 12:00 PM Resu lts for this CDT procedure are i n the results section. from Last 3 Months Results (ABNORMAL) REFERRAL ID/SUSC, URINE (12/29/2021 12:54 PM CDT) [facility] gist Method Time Signature CULTURE RESULT (A) 01/04/2022 [facility] 12:18 PM CDT LABORATORY-JOSE TRAL LABORATORY CULTURE Salmonella 01/04/2022 [facility] species 12:18 PM CDT LABORATORY-JOSE TRAL LABORATORY Specimen Anatomical Collection Method Collection Time Receive d Time (Source) Location / / Volume Laterality Urine Client Collect / 12/29/2021 12:54 022 3:52 Unknown PM CDT PM CDT Organism Antibiotic Method Susceptibility Salmonella species TRIMETHOPRIM/SULF <=1/19: S Salmonella species AMPICILLIN <=2: S Salmonella species CEFTRIAXONE <=1: S Salmonella species CEFTAZIDIME <=1: S Salmonella species CIPROFLOXACIN I Lupis Edwards PA MICROBIOLOGY Performing Organization Address [facility] Phon e Number [facility] [address] [place] [address] LABORATORY-CENTRAL 2000 LABORATORY LAB TRACKING EVENT (10/29/2021 12:00 PM CDT) Specimen Anatomical Collection Method Collection Time Receive d Time (Source) Location / / Volume Laterality Other (Other) Client Collect / 10/29/2021 12:00 2021 3:58 Unknown PM CDT PM CDT Antoinette Hsu MD LAB BILL ONLY Performing Organization Address [facility] Phon e Number [facility] [address] [place] [address] LABORATORY-CENTRAL 2000 LABORATORY PATH TISSUE EXAM (10/29/2021 12:00 PM CDT) Component Value Ref Test Analysis Performed At [facility] gist Range Method Time Signature Case Report Pathology Report ?Case: [id number] ? 10/31/2021 MARIA ANTONIA Authorizing Provider: ??Antoinette Hernandez MD ?Collected: ? 10/29/2021 1200 ? 12:14 PM HEALTH Ordering Location: ? [facility] CENTRAL LAB ?Received: ?10/30/2021 1621 ? CDT LENCHO ARIZMENDIC Pathologist: ? Itzel Carter MD ? ENTRAL Specimen: ?Left Arm ? LABORATORY Final SKIN, POSTERIOR LEFT UPPER ARM, EXCISION: 10/31/2021 [facility] Electronically Diagnosis 1. Nevus lipomatosus superficialis 12:14 PM HEALTH signed by 2. Negative for malignancy CDT LAB ORATORY-C Itzel Carter MD on LABORATORY 10/31/2021 at 12:14 PM [...] multicolored ink is confirmed on tissue sections. ENTRAL LABORATORY Additional 10/31/2021 MARIA ANTONIA Information Interpreted at [facility], Central Laboratory - [address] [place] [address], [place] [address] 12:14 PM HEALTH CDT LABORATORY-C ENTRAL LABORATORY Specimen Anatomical Collection Method Collection Time Receive d Time (Source) Location / / Volume Laterality Other (Left Arm) 10/29/2021 12:00 022 4:21 PM CDT PM CDT Antoinette Hsu MD PATHOLOGY/CYTOLOGY Performing Organization Address City/State/ZIP Code Phon e Number [facility] [address] [place] [address] LABORATORY-CENTRAL 2000 LABORATORY from Last 3 Months Insurance Payer Benefit Plan / Subscriber ID Effective Dates Phone Addre ss Type Group MEDICARE PART A MEDICARE PART A [id number] 2014-Present ATTN: CLAIMS - HB USE ONLY HB ONLY [address] [place] [address] MEDICARE PART B MEDICARE PART B [id number] 2015-Present ATTN: CLAIMS - HB USE ONLY HB ONLY [address] [place] [address] MEDICA MR MEDICA PRIME [id number] 2020-Present [address] [address] [place] [address] MEDICA MEDICA PRIME [id number] 2020-Present [address] [address] [place] [address] Advance Directives Documents on File Type Date 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 10/02/2010 [place] [facility], 09/26/10 Latest Code Status on File Code Status Date Activated Date Inactivated Comments Full Code 10/23/2020 8:13 AM 10/23/2020 1:08 PM Code Status Discussion: Per Existing Order Care Teams Staffing Executive Relationship Specialty Start Date End Date Annie Worthington MD PCP - General Internal Medicine 10/16/[address] [place] [address] Alvino Tracey MD Surgery - Orthopedics 09/22/13 Dheeraj [employer] Traffic Controller 09/22/[address] [place] [address] Staff, Other Clinical Dentistry - General 11/26/16 .
--- NOTE | 2022-01-12 10:15 | CRLHL7_ITS ---
For Patients: As a result of the Century Cures Act, medical imaging exams and procedure reports are released immediately into your electronic medical record. You may view this report before your referring provider. If you have questions, please contact your health care provider. INDICATION: Non-small cell lung cancer follow-up. TECHNIQUE: Brain MRI with contrast. The following sequences were obtained: Sagittal T1 weighted sequence. DWI and ADC mapping sequences. Axial FLAIR and JEANMARIE T2 weighted sequences. Susceptibility weighted or GRE sequence. T1 weighted post-contrast sequence(s). 15 cc of Dotarem gadolinium based contrast agent was used. COMPARISON: Brain MRI from 07/14/2021. FINDINGS: No evidence of acute ischemia. Focus of susceptibility/FLAIR hyperintensity/trace enhancement within the high right posterior frontal convexity, reflecting sequela of prior treated metastasis. No mass or pathologic intracranial enhancement. Scattered FLAIR hyperintensities within the supratentorial white matter and brainstem, typical for chronic microvascular ischemic changes. No hydrocephalus or extra-axial collections. The pituitary gland, parasellar structures and optic chiasm are normal. Tiny focus of encephalomalacia left medial cerebellum, possibly a chronic infarct. All the major intracranial vascular structures demonstrate normal flow-related signal. The orbital contents are normal. No calvarial or skull base marrow signal abnormality. No obstructive sinus disease. No extracranial soft tissue findings. IMPRESSION: 1. No evidence of active intracranial metastatic disease. 2. No acute infarction or other acute intracranial pathology. 3. Treated metastasis within the high right posterior frontal convexity is unchanged in appearance. Dictated by Uvaldo Palm MD @ 01/12/2022 11:52:07 AM (Electronically Signed)
== END 2022-01-12 10:04 | disposition home or self-care (01) ==
LOC: MRI 10:04
PROVIDERS: PCP Internal Medicine; Visit Provider Internal Medicine Hematology & Oncology
DX: C34.12 Malignant neoplasm of upper lobe, left bronchus or lung (principal); R30.0 Dysuria
CPT/HCPCS: 70553; 87086; 87186; A9575

== ENCOUNTER 2022-04-17 09:58 | Outpatient (CLI) | payer MEDICARE, OTHER, SELFPAY ==
--- NOTE | 2022-04-17 10:15 | CRLHL7_ITS ---
For Patients: As a result of the Century Cures Act, medical imaging exams and procedure reports are released immediately into your electronic medical record. You may view this report before your referring provider. If you have questions, please contact your health care provider. Indication: non-small cell lung cancer, brain metastasis Technique: Noncontrast sagittal T1, axial and sagittal FLAIR, T2 turbo spine echo, and diffusion weighted images. Supplemental post contrast T1 weighted axial and coronal sequences are provided after administration of 15 mL gadolinium-based IV contrast. Comparison: 01/12/2022 MRI Findings: The ventricles, sulci and gyri are normal size, shape and contour for age. The midline structures are centrally located with no evidence of shift. There are no suspicious intra or extra-axial fluid collections. No evidence of restricted diffusion to suggest acute ischemia. Stable nonenhancing treated metastasis in the right superior frontal gyrus. Nonenhancing T2 prolongation in the central brian is nonspecific. Expected flow voids in the cavernous carotids and basilar artery. No abnormal contrast enhancement involving the brain parenchyma, meninges, calvarium or skull base. Thinning of the ocular lenses likely due to cataract surgery. Impression: 1. No acute intracranial abnormality. 2. Stable nonenhancing treated metastasis in the right superior frontal gyrus. 3. Stable foci of T2 prolongation in the central brian likely representing chronic microangiopathy changes. 4. No pathologic enhancement to suggest intracranial metastases. Dictated by Melquiades Harvey MD @ 04/17/2022 12:49:05 PM (Electronically Signed)
== END 2022-04-17 09:59 | disposition home or self-care (01) ==
LOC: MRI 09:59
PROVIDERS: PCP Internal Medicine; Visit Provider Internal Medicine Hematology & Oncology
DX: C34.12 Malignant neoplasm of upper lobe, left bronchus or lung (principal); C79.31 Secondary malignant neoplasm of brain
CPT/HCPCS: 70553; A9575

== ENCOUNTER 2022-04-21 13:03 | Outpatient (CLI) | payer MEDICARE, OTHER, SELFPAY ==
--- NOTE | 2022-04-21 13:00 | CRLHL7_ITS ---
For Patients: As a result of the Century Cures Act, medical imaging exams and procedure reports are released immediately into your electronic medical record. You may view this report before your referring provider. If you have questions, please contact your health care provider. Indication: Non-small cell lung cancer. Worsening back pain Technique: Multiplanar, multisequence MRI of the thoracic spine was performed without and with the use of 15 cc Dotarem intravenous contrast. Comparison: None relevant available at the time of interpretation. Findings: The thoracic vertebral body heights are maintained without evidence of fracture. Mild multilevel disc height loss and desiccation. There is no discrete T1 hypointense infiltrative process. Slightly exaggerated upper thoracic kyphosis. No abnormal cord signal. No abnormal enhancement. T7-8: There is a small central disc protrusion with minimal spinal canal narrowing. No neural foraminal narrowing. Mild multilevel spondylosis, without overt evidence of spinal canal or neuroforaminal compromise throughout the remaining thoracic spine. Abnormal signal within the left lung upper lobe may correspond to patient`s reported history of non-small cell lung cancer. Correlate with any prior chest imaging. Impression: 1. No findings to suggest thoracic spine metastases. 2. Mild spondylosis without high-grade spinal canal or neural foraminal narrowing. 3. No abnormal cord signal. No abnormal enhancement. Dictated by Timoteo Perla MD @ 04/22/2022 9:12:10 AM (Electronically Signed) ----- ADDENDUM ----- Addendum Report: Thoracic aorta measurements. : At request of the ordering provider measurements of the thoracic aorta are provided. Measurements are performed on sagittal T2 weighted imaging (series 3). The proximal descending thoracic aorta distal to the origin of the great vessels appears mildly prominent measuring up to 3.1 cm. The distal thoracic aorta measures up to 2.4 cm at the level of T11-T12. Measurements of the ascending aorta and aortic arch are suboptimal due to pulsation artifact and saturation band. Dictated by Timoteo Perla MD @ Apr 22 2022 9:12AM Signed by:Renetta Perla MD @04/22/2022 9:20:46 AM (Electronic Signature)
--- NOTE | 2022-04-21 14:00 | CRLHL7_ITS ---
For Patients: As a result of the Century Cures Act, medical imaging exams and procedure reports are released immediately into your electronic medical record. You may view this report before your referring provider. If you have questions, please contact your health care provider. Indication: [id number] lung carcinoma. Worsening back pain. Technique: Multiplanar, multisequence MRI of the lumbar spine was performed without and with intravenous contrast. Contrast: 15 cc Dotarem. Comparison: Lumbar spine MRI 09/08/2021. Findings: There are 5 lumbar type vertebral segments identified. The vertebral body heights appear maintained without evidence of fracture. There is no discrete T1 hypointense marrow infiltrating process. The conus medullaris terminates at L1-2, normal. Cauda equina appears unremarkable. T12-L1: Minimal disc bulge without spinal canal or neural foraminal narrowing. L1-2: No spinal canal or neural foraminal stenosis. L2-3: Moderate disc height loss and desiccation. Disc bulge coupled with facet hypertrophy resulting in mild spinal canal narrowing. Moderate right and mild left neural foraminal narrowing. Stable. L3-4: Minimal disc bulge without spinal canal narrowing. Moderate left and mild to moderate right neural foraminal narrowing secondary to disc bulge and facet hypertrophy. Ctyl-lp-fznpkjwc facet arthropathy. Stable. L4-5: Grade 1 anterolisthesis, with minimal spine canal narrowing. Moderate to severe left and moderate right neural foraminal narrowing secondary to anterolisthesis, disc bulge and facet hypertrophy. Potential impingement of the exiting left L4 nerve. Severe facet arthropathy. Stable. L5-S1: Moderate disc height loss and desiccation. Disc bulge with superimposed central disc protrusion without spinal canal narrowing. Moderately severe neural foraminal narrowing secondary to disc bulge and facet hypertrophy. Potential impingement of the exiting L5 nerves. Severe facet arthropathy. Stable. Perifacet edema and enhancement at the L3-4 and L4-5 levels. Mild sacroiliac joint osteoarthritis. Extrarenal pelves. Impression: 1. No findings to suggest lumbar spine metastases. 2. At L5-S1, stable moderately severe neural foraminal stenosis with potential impingement of the exiting L5 nerves. 3. At L4-5, stable grade 1 anterolisthesis with moderate to severe left and moderate right neural foraminal narrowing. Potential impingement of the exiting left L4 nerve. 4. At L3-4, stable moderate left and ehvs-ts-wxfbyzjd right neural foraminal narrowing. 5. At L2-3, stable well-defined canal with moderate right and mild left neural foraminal narrowing. 6. Stable multilevel moderate to severe facet arthropathy. Reactive/inflammatory facet arthropathy at the L3-4 and L4-5. Dictated by Timoteo Perla MD @ 04/22/2022 9:20:29 AM (Electronically Signed)
== END 2022-04-21 13:04 | disposition home or self-care (01) ==
PROVIDERS: PCP Internal Medicine; Visit Provider Internal Medicine Hematology & Oncology
DX: C34.12 Malignant neoplasm of upper lobe, left bronchus or lung (principal); M47.814 Spondylosis without myelopathy or radiculopathy, thoracic region; M51.26 Other intervertebral disc displacement, lumbar region; M54.9 Dorsalgia, unspecified
CPT/HCPCS: 72157; 72158; A9575

== ENCOUNTER 2022-09-02 14:36 | Outpatient (CLI) | payer MEDICARE, SELFPAY | END 2022-09-02 14:37 | disposition home or self-care (01) | PROVIDERS: PCP Internal Medicine; Visit Provider Family Medicine | DX: R53.1 Weakness (principal); E03.9 Hypothyroidism, unspecified; E66.9 Obesity, unspecified; R35.0 Frequency of micturition; R53.83 Other fatigue; R25.1 Tremor, unspecified | CPT/HCPCS: 80053; 84443; 87086 ==

== ENCOUNTER 2022-09-30 07:11 | Emergency (ER) | payer MEDICARE, SELFPAY ==
[2022-09-30 07:19] VITALS: BP 130/55; PULSE 61; RESP 20; O2SAT 98; BMI 33.4
--- NOTE | 2022-09-30 07:47 | ED_ITS ---
HPI - General Adult General Chief complaint: Extremity Pain/Injury, Upper Stated complaint: possible broken right arm Time Seen by Provider: 09/30/22 07:27 History of Present Illness HPI narrative: comes to ed with concerns of an injury to right upper arm. was reaching for something in her dresser drawer to get underwear out and fell on the hardwood floor . son lives in the basement, and he immediately came to her aid . he does not think there was any loc. Maria Del Carmen has poor recall of situation and son stated to me what had happened as she had told soon after the event . unable to use right arm. has recent diagnosis of Parkinson's?yesterday 72-year-old woman presenting to the emergency department with a concern of injury. Apparently had been reaching for something in her dresser drawer and fell to the hardwood floor. She was assisted quickly by her son lives in the basement. Right arm pain demonstrating mid right humerus. She denies hitting her head. She does admit she has little bit of a headache. Denies neck or back pain or belly pain. Denies pop palpitations or loss of consciousness. Says she did not sleep very well last night noting yesterday having received a formal diagnosis of Parkinson's. Sounds like this might be related to some tumbling t houghts overnight. Has been falling a little more lately it sounds like particularly on her right knee couple of times. This is postoperative total knee. She thinks she is fine in this regard noting that she ambulated into the emergency department without significant difficulty. Related Data Home Medications Medication Instructions Recorded Confirmed omeprazole 40 mg capsule,delayed 40 mg PO QDAY 10/20/21 09/02/22 release levothyroxine 75 mcg tablet 75 mcg PO DAILY 07/07/22 09/02/22 oxycodone 5 mg tablet 5 mg PO PRN 07/07/22 09/02/22 duloxetine 20 mg capsule,delayed 80 mg PO QDAY 09/02/22 09/02/22 release Allergies Allergy/AdvReac Type Severity Reaction Status Date / Time amoxicillin Allergy Severe Hives Verified 09/02/22 14:14 ciprofloxacin Allergy Mild Hives Verified 09/02/22 14:14 nitrofurantoin Allergy Mild Hives Verified 09/02/22 14:14 penicillin V Allergy Mild Unknown Verified 09/02/22 14:14 Review of Systems Status of ROS: Reports: 6 or more systems reviewed and unremarkable except as noted in History and below [facility] Medical History History of esophageal stricture ?Z87.19 - Personal history of other diseases of the digestive system (ICD-10) History of parotitis ?Z87.19 - Personal history of other diseases of the digestive system (ICD-10) Surgical History 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) ?Z96.659 - Presence of unspecified artificial knee joint (ICD-10) History of tonsillectomy (1960) ?Z90.89 - Acquired absence of other organs (ICD-10) History of bilateral cataract extraction (2008) ?Z98.41 - Cataract extraction status, right eye (ICD-10) ?Z98.42 - Cataract extraction status, left eye (ICD-10) History of cholecystectomy ?Z90.49 - Acquired absence of other specified parts of digestive tract (ICD- 10) H/O right breast biopsy ?Z98.890 - Other specified postprocedural states (ICD-10) History of appendectomy ?Z90.49 - Acquired absence of other specified parts of digestive tract (ICD- 10) Social History Smoking Status: Current some day smoker Do you use any of these nicotine containing products: Vaping Products Second hand tobacco smoke exposure: No How often do you have a drink containing alcohol: never How often do you have six or more drinks on one occasion: Never AUDIT-C Alcohol total score: 0 Non-prescribed substance use: denies use Little interest or pleasure in doing things: not at all Feeling down, depressed, or hopeless: not at all service: No Exam Narrative: Exam Narrative: Pleasant. NAD. Answers questions quickly easily. Head is atraumatic. Cranial nerves 2-12 look to be intact. Neck is supple nontender. Back nontender to palpation. Moving all extremities except for the right arm without apparent difficulty she is well-perfused peripherally. Postoperative scar the anterior right knee. There is no erythema or swelling here. She is quite tender to palpation about the right shoulder and mid humerus. No clavicular tenderness. Good pulses peripherally in the right arm as well. Const: Vital Signs, click to edit/add: Vital Signs - 24 hr 09/30/22 07:19 Pulse Rate [Pulse Oximeter] 61 Respiratory Rate 20 Blood Pressure [Le ft Forearm] 130/55 L Pulse Oximetry 98 Oxygen Delivery Me thod Room Air Documenting provider has reviewed patient's vital signs: yes Course Vital Signs Vital signs: Initial Vital Signs Temperature Source Temporal Artery Scan 09/30/22 07:19 Pulse Rate 61 09/30/22 07:19 Pulse Rhythm Regular 09/30/22 07:19 Respiratory Rate 20 09/30/22 07:19 Blood Pressure 130/55 L 09/30/22 07:19 Blood Pressure Mean 80 09/30/22 07:19 Blood Pressure Position Supine 09/30/22 07:19 Pulse Oximetry 98 09/30/22 07:19 Oxygen Delivery Method Room Air 09/30/22 07:19 Vital Signs Pulse Rate 61 09/30/22 07:19 Respiratory Rate 20 09/30/22 07:19 Blood Pressure 130/55 L 09/30/22 07:19 Pulse Oximetry 98 09/30/22 07:19 Oxygen Delivery Method Room Air 09/30/22 07:19 Pulse Rate 61 09/30/22 07:19 Respiratory Rate 20 09/30/22 07:19 Blood Pressure 130/55 L 09/30/22 07:19 Pulse Oximetry 98 09/30/22 07:19 Oxygen Delivery Method Room Air 09/30/22 07:19 Medical Decision Making MDM Narrative Medical decision making narrative: It appears likely has a humeral head or neck fracture given physical exam. Imaging is pending. She would like something for pain. I would doubt surgical intervention here today and could probably tolerate orals but I would like to give her some pain medication prior to imaging. Ordered for half a mg of Dilaudid IM. It sounds like this was a fall just related to balance difficulty. Given degree of pain demonstrated I am surprised to see on my read that the x- ray is actually unremarkable. Re-examination by myself still has point of maximal pain around the humeral head. No AC joint tenderness no scapular tenderness. Over-read by radiology concurs that x-ray is negative. She has received also 2 tabs of ITS KOOL now as well. Has not quite been long enough where I would assess affectively of Rimforest however still with a great deal of pain. Perhaps she bruised the glenohumeral joint. Offered joint injection. She and her son would like to proceed with that. Cleansed right posterior shoulder for posterior approach with Betadine. Injected with 5 mL Marcaine. Placed in arm sling. Will need to reassess though also for rotator cuff. Today is simply too tender to do a good exam. See patient discharge plan Discharge Plan Discharge Clinical Impression: Acute pain of right shoulder, Fall Patient Disposition: Home w/ Parent or Adult Condition: Stable Additional Instructions: Wear this arm sling for comfort over this next week. Be seen for uncontrolled pain. I would expect your pain to improve over the next couple of days. I would ice your shoulder 2-3 times daily as discussed over the next few days. Can augment your pain medication with Rimforest from [facility] or ibuprofen or napro xen. Follow-up if not improved markedly in a week. Prescriptions: No Action omeprazole 40 mg capsule,delayed release(DR/EC) 40 mg PO QDAY levothyroxine 75 mcg tablet 75 mcg PO DAILY oxycodone 5 mg tablet 5 mg PO PRN duloxetine 20 mg capsule,delayed release(DR/EC) 80 mg PO QDAY Follow Up/Referrals: Annie Worthington MD [Primary Care Provider] - Stand Alone Forms: [email or web address] Info Instructions
--- NOTE | 2022-09-30 07:54 | CRLHL7_ITS ---
For Patients: As a result of the Century Cures Act, medical imaging exams and procedure reports are released immediately into your electronic medical record. You may view this report before your referring provider. If you have questions, please contact your health care provider. INDICATION: Trauma. Fall. Pain. TECHNIQUE: Two views of the right shoulder. FINDINGS: No acute fracture or dislocation. Right-sided Port-A-Cath with its lead tip in the expected location in the superior vena cava. IMPRESSION: Negative right shoulder. Right-sided Port-A-Cath. Dictated by Lucho Danielle MD @ 09/30/2022 8:55:49 AM (Electronically Signed)
[2022-09-30] MEDS: HYDROmorphone 0.5 mg/0.5 ml inj IM (07:59)
[2022-09-30] MEDS: HYDROCODONE-ACETAMIN 5-325 MG 1 TAB 2 TAB PO (08:29)
[2022-09-30] MEDS: BUPIVACAINE 0.25% 30 ML INJECTION (09:09)
== END 2022-09-30 09:32 | disposition home or self-care (01) ==
PROVIDERS: Emergency Provider Family Medicine; PCP Internal Medicine
DX: M25.511 Pain in right shoulder (principal); W19.XXXA Unspecified fall, initial encounter
CPT/HCPCS: 20610; 73030; 96372; 99284; A9270; J0665; J1170

== ENCOUNTER 2022-11-03 14:16 | Outpatient (CLI) | payer MEDICARE, SELFPAY ==
--- NOTE | 2022-11-03 14:30 | CRLHL7_ITS ---
For Patients: As a result of the Century Cures Act, medical imaging exams and procedure reports are released immediately into your electronic medical record. You may view this report before your referring provider. If you have questions, please contact your health care provider. Indication: Lung cancer with intracranial metastases. Technique: Multisequence multiplanar MRI of the head before and following administration of 15 ml of gadolinium-based intravenous contrast. Comparison: None available. Findings: Diffusion weighted imaging demonstrates no evidence of acute or subacute ischemia.Stable nonenhancing treated metastasis in the right superior frontal gyrus. Unchanged T2 prolongation in the central brian, nonspecific but typical small-vessel ischemic change. The ventricles are unchanged in caliber. Flow voids of the larger intracranial arteries are patent. Bone marrow signal intensity of the calvarium is within normal limits. There is evidence of bilateral cataract surgery. The paranasal sinuses and mastoid air cells are predominantly clear. Impression: 1. No acute intracranial abnormality. 2. Stable nonenhancing treated metastasis in the right superior frontal gyrus. 3. No pathologic intracranial enhancement. Dictated by Vlad Nolasco MD @ 11/04/2022 1:16:18 PM (Electronically Signed)
== END 2022-11-03 14:17 | disposition home or self-care (01) ==
LOC: MRI 14:17
PROVIDERS: PCP Internal Medicine; Visit Provider Internal Medicine Hematology & Oncology
DX: C34.12 Malignant neoplasm of upper lobe, left bronchus or lung (principal); C79.31 Secondary malignant neoplasm of brain
CPT/HCPCS: 70553; A9575

== ENCOUNTER 2023-06-07 08:14 | Emergency (ER) | payer MEDICARE, SELFPAY ==
[2023-06-07] VITALS (14 sets, daily range): BP systolic 126–143; BP diastolic 75–83; PULSE 49–57; RESP 18; TEMP 36.5; O2SAT 98–100; BMI 33.3
--- NOTE | 2023-06-07 08:25 | ED.GENADULT ---
HPI - General Adult General Time Seen by Provider: 08:25 Date Seen: 06/07/23 Chief complaint: Shortness of Breath/Dyspnea Stated complaint: shortness of breath/back pain Time Seen by Provider: 06/07/23 08:20 Source: patient, family and RN notes reviewed Mode of arrival: ambulatory Limitations: no limitations History of Present Illness HPI narrative: This 73-year-old female is ambulatory into the ED accompanied by family member with concern of not feeling well, back pain with breathing that has developed. She was in [place] for vacation. On arrival back, she was not feeling well. This has been about 3-4 days per report. When she got home from the airport she was feeling extremely tired and chilled. She karoline a hot bath and then fell asleep. She has had some low-grade fevers, has been monitoring her temperature and the highest it has been is 100.2? F. she has had a dry cough, running a humidifier. She has had some slight diarrhea but no nausea vomiting, no abdominal pain, no urinary symptoms. She denies any sore throat. She has had some sense of nasal congestion. There is a more remote possible exposure to influenza. She certainly could have had exposures traveling that she is unaware of. She has had a history of non-small cell lung cancer that is considered in remission. She denies any history of blood clots. She has felt short of breath with these symptoms, she feels mid back pain with breathing now. She has not felt any chest pain that she is thought was cardiac, no left-sided chest pain. Symptoms are discomfort with breathing. She does admit she feels short of breath. Patient does also have underlying Parkinson's syndrome, does have a routine follow-up with her neurologist in 2 days. Related Data Home Medications Medication Instructions Recorded Confirmed omeprazole 40 mg capsule,delayed 40 mg PO QDAY 10/20/21 06/07/23 release levothyroxine 75 mcg tablet 75 mcg PO DAILY 07/07/22 06/07/23 carbidopa 25 mg-levodopa 100 mg tab PO 06/07/23 tablet carbidopa ER 50 mg-levodopa 200 mg 1 tab PO QPM 06/07/23 06/07/23 tablet,extended release Previous Rx's Medication Instructions Recorded doxycycline monohydrate 100 mg 100 mg PO BID #20 tabs 06/07/23 tablet oxycodone 5 mg tablet 5 mg PO QHS PRN pain #7 tabs 06/07/23 Allergies Allergy/AdvReac Type Severity Reaction Status Date / Time amoxicillin Allergy Severe Hives Verified 06/07/23 10:41 ciprofloxacin Allergy Mild Hives Verified 06/07/23 10:41 nitrofurantoin Allergy Mild Hives Verified 06/07/23 10:41 penicillin V Allergy Mild Unknown Verified 06/07/23 10:41 Review of Systems Status of ROS: Reports: 6 or more systems reviewed and unremarkable except as noted in History and below [facility] History History of esophageal stricture ?Z87.19 - Personal history of other diseases of the digestive system (ICD-10) History of parotitis ?Z87.19 - Personal history of other diseases of the digestive system (ICD-10) Surgical History 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) ?Z96.659 - Presence of unspecified artificial knee joint (ICD-10) History of tonsillectomy (1960) ?Z90.89 - Acquired absence of other organs (ICD-10) History of bilateral cataract extraction (2008) ?Z98.41 - Cataract extraction status, right eye (ICD-10) ?Z98.42 - Cataract extraction status, left eye (ICD-10) History of cholecystectomy ?Z90.49 - Acquired absence of other specified parts of digestive tract (ICD-10) H/O right breast biopsy ?Z98.890 - Other specified postprocedural states (ICD-10) History of appendectomy ?Z90.49 - Acquired absence of other specified parts of digestive tract (ICD-10) Social History Smoking Status: Current some day smoker Do you use any of these nicotine containing products: Vaping Products Second hand tobacco smoke exposure: No How often do you have a drink containing alcohol: never How often do you have six or more drinks on one occasion: Never AUDIT-C Alcohol total score: 0 Non-prescribed substance use: denies use Little interest or pleasure in doing things: not at all Feeling down, depressed, or hopeless: not at all service: No Exam Const: Vital Signs, click to edit/add: Vital Signs - 24 hr 06/07/23 08:17 06/07/23 08:32 06/07/23 08:34 Temperature 97.7 F Pulse Rate 55 L Pulse Rate [Pulse Oximeter] 53 L Respiratory Rate 18 Blood Pressure 126/77 Blood Pressure [Ri ght Upper Arm] 133/75 Pulse Oximetry 98 100 99 Oxygen Delivery Me thod Room Air 06/07/23 08:35 06/07/23 09:00 06/07/23 09:30 Temperature Pulse Rate 53 L 55 L 51 L Pulse Rate [Pulse Oximeter] Respiratory Rate Blood Pressure Blood Pressure [Ri ght Upper Arm] Pulse Oximetry 99 100 100 Oxygen Delivery Me thod 06/07/23 09:32 06/07/23 10:00 06/07/23 10:02 Temperature Pulse Rate 51 L 49 L 50 L Pulse Rate [Pulse Oximeter] Respiratory Rate Blood Pressure 128/83 136/76 Blood Pressure [Ri ght Upper Arm] Pulse Oximetry 100 99 99 Oxygen Delivery Me thod 06/07/23 10:03 06/07/23 10:38 06/07/23 11:00 Temperature Pulse Rate 50 L 57 L 49 L Pulse Rate [Pulse Oximeter] Respiratory Rate Blood Pressure Blood Pressure [Ri ght Upper Arm] Pulse Oximetry 98 99 99 Oxygen Delivery Me thod 06/07/23 11:02 Temperature Pulse Rate 49 L Pulse Rate [Pulse Oximeter] Respiratory Rate Blood Pressure 143/80 H Blood Pressure [Ri ght Upper Arm] Pulse Oximetry 98 Oxygen Delivery Me thod She is a 73-year-old female that it was observed ambulating into exam room 3 with normal gait, no difficulties noted. She is alert, interactive, no apparent distress. Does not appear tachypneic, able to speak in complete sentences, voice sounds normal, no hoarseness noted. Conjugate gaze, pupils are equal round, sclera clear. Symmetrical facial function. Neck supple, no adenopathy, no jugular venous distension noted. Lungs are clear, good air entry, no wheezing crackles. No midline tenderness over back. No rash noted. CV regular rate in rhythm, no murmur, normal S1-S2, no S3-S4. Abdomen is soft, nondistended, nontender, no appreciable organomegaly. She has no lower extremity edema, calves are nontender. Documenting provider has reviewed patient's vital signs: yes Course Course ED Course: This patient is presenting with some shortness of breath, pleuritic type lower thoracic back pain where she points to with breathing on both sides. She has had some low-grade fevers. This would suggest a respiratory infection. We have discussed doing the triple viral swab which will look for COVID, RSV and influenza. Will start with a portable chest x-ray to see if we see any infiltrative type processes such as lobar pneumonia. This will certainly show pleural effusions if there are any. Other cardiac pulmonary manifestations certainly will be considered. She understands we may need to proceed with chest CT. If her D-dimer is significantly elevated, consideration for thromboembolic disease such as pulmonary embolus needs to be entertained. Will do a troponin, monitor her on pulse oximetry here. She is not currently hypoxic. She does look quite stable. Reevaluation(s) Time of Reevaluation #1: 09:42 Reevaluation #1: Did review with patient that her D-dimer is elevated, we reviewed the a infiltrative area seen on the chest x-ray. We did discuss that we will be proceeding with chest CT PE protocol, rule out pulmonary embolus, better define this area on the chest x-ray. Is likely will treat for community-acquired pneumonia but will await the chest CT to confirm this. Still awaiting on labs but we do know that her D-dimer is elevated. We did discuss that infectious etiology could increase inflammation and cause the elevated D-dimer but we need the chest CT PE protocol to rule out pulmonary emboli. She is feeling short of breath. She did have me elevate the head of the bed a little higher, is feeling some discomfort with breathing. We will try a 1000 mg Tylenol, she has tried nothing for her discomfort. We will start here and see if this does help her at all. She is not hypoxic. Time of Reevaluation #2: 11:20 Reevaluation #2: Did review the CT report and brought patient a copy of this. She is to make sure that she provides this to her oncologist. Interval follow-up imaging should be done. However given her fevers, her suppressed white blood count, do think we should treat clinically. She has had radiation to this area of her long and thus the tissue certainly can have some scarring putting her at risk for community-acquired pneumonia. We will cover with antibiotics, give her oral doxycycline as she has a penicillin allergy. She does not require hospitalization, can treat outpatient at this time. Vital Signs Vital signs: Initial Vital Signs Temperature 97.7 F 06/07/23 08:17 Temperature Source Temporal Artery Scan 06/07/23 08:17 Pulse Rate 53 L 06/07/23 08:17 Respiratory Rate 18 06/07/23 08:17 Blood Pressure 133/75 06/07/23 08:17 Blood Pressure Mean 94 06/07/23 08:17 Blood Pressure Position Supine 06/07/23 08:17 Pulse Oximetry 98 06/07/23 08:17 Oxygen Delivery Method Room Air 06/07/23 08:17 Vital Signs Temperature 97.7 F 06/07/23 08:17 Pulse Rate 53 L 06/07/23 08:17 Respiratory Rate 18 06/07/23 08:17 Blood Pressure 133/75 06/07/23 08:17 Pulse Oximetry 98 06/07/23 08:17 Oxygen Delivery Method Room Air 06/07/23 08:17 Temperature 97.7 F 06/07/23 08:17 Pulse Rate 49 L 06/07/23 11:02 Respiratory Rate 18 06/07/23 08:17 Blood Pressure 143/80 H 06/07/23 11:02 Pulse Oximetry 98 06/07/23 11:02 Oxygen Delivery Method Room Air 06/07/23 08:17 Medications Administered Medications: Discontinued Medications Generic Name Dose Route Start Last Admin Trade Name Leonq PRN Reason Stop Dose Admin Acetaminophen 1,000 mg 06/07/23 10:14 06/07/23 10:41 Acetaminophen 500 Mg Tablet PO 06/07/23 10:15 1,000 mg ONCE ONE Administration Medical Decision Making Lab Data Lab results reviewed: Yes I reviewed the patient's lab results Labs: Lab Results 06/07/23 06/07/23 Range/Units 08:33 09:00 WBC 2.68 L (4.50-11.00) K/uL RBC 3.37 L (4.00-5.20) m/uL Hgb 11.2 L (12.0-16.0) gm/dL Hct 33.8 (33.0-51.0) % MCV 100 (80-100) fL MCH 33 (26-34) pg MCHC 33 (32-36) gm/dL RDW Coeff of Cristian 14.0 (11.5-15.5) % Plt Count 181 (140-440) K/uL Neut % (Auto) 35.8 L (42.0-72.0) % Lymph % (Auto) 53.0 H (20-44) % [place] % (Auto) 8.6 (0.0-11.0) % Eos % (Auto) 2.2 (0.0-7.0) % Baso % (Auto) 0.4 (0.0-3.0) % Neut # (Auto) 1.00 L (1.7-7.0) K/uL Lymph # (Auto) 1.40 (0.90-2.90) K/uL [place] # (Auto) 0.20 (0.00-0.90) K/UL Eos # (Auto) 0.10 (0.00-0.50) K/uL Baso # (Auto) 0.00 (0.00-0.30) K/uL Abs Immat Gran (auto) 0.00 (0.00-0.30) K/uL Imm/Tot Granulo (auto) 0.0 % Diff Slide Review Acceptable Review (Acceptable) D-Dimer Quant (PE/DVT) 1.67 H (0.00-0.50) ug/ml VBG pH 7.406 (7.32-7.43) VBG pCO2 41 (40-50) mmHG VBG pO2 31.4 (25-47) mmHG VBG HCO3 26 (21-28) mmol/L Sodium 137 (135-149) mmol/L Potassium 4.1 (3.6-5.1) mmol/L Chloride 107 (96-114) mmol/L Carbon Dioxide 25 (20-32) mmol/L Anion Gap 5 L (7-15) mEq/L BUN 18 (7-30) mg/dL Creatinine 0.7 (0.5-1.5) mg/dL Estimated Creat Clear 44.41 Estimated GFR 91 ml/min Glucose 98 (60-115) mg/dL Lactate 0.7 (0.5-1.9) mmol/L Calcium 8.8 (8.4-10.6) mg/dL Total Bilirubin 0.5 (0.1-1.5) mg/dL AST 22 (12-35) U/L ALT 5 (4-35) U/L Alkaline Phosphatase 59 (40-150) U/L Troponin I < 0.01 L (0.01-0.04) ng/mL C-Reactive Protein 1.1 H (0.5-1.0) mg/dL NT-Pro-B Natriuret Pep 169 pg/mL Total Protein 6.3 (6.0-8.3) g/dL Albumin 3.5 (3.3-5.0) g/dL Procalcitonin 0.07 (<0.50) ng/mL SARS-CoV-2 (PCR) Negative SARS-CoV-2 (Negative) Influenza Type A (PCR) Negative PCR FLU A (Negative) Influenza Type B (PCR) Negative PCR FLU B (Negative) RSV (PCR) Negative PCR RSV (Negative) Imaging Data Chest x-ray: Attestation: I have reviewed the pertinent imaging results. My impression: Do not appreciate any effusion but do see a left upper lobe small consolidative area. No prior chest x-ray to compare to. Will await Radiology over-read. Radiologist's impression: Patient: MARISELA HANNAH Facility:?[facility] Patient ID:?[id number] Site Patient ID:?[id number]. Site :?[id number] Study:?XRay Chest 1 VIEW PORTABLE-06/07/2023 8:45:41 AM Ordering Physician:ROE Final Report: INDICATION: Short of breath, cough, history of lung cancer, possible fever TECHNIQUE: 1 view chest radiograph COMPARISON: None. FINDINGS: Devices: Right IJ chest port distal tip mid SVC. Lung volumes are good. Focal opacity in the left upper lobe. No pleural effusion. No pneumothorax. Heart size is normal. Suspect small hiatal hernia. Normal upper mediastinal contours. IMPRESSION: Small left upper lobe opacity is probably pneumonia with the appropriate clinical symptoms. Recommend follow-up to resolution and patient with a history of lung cancer. Dictated by Sarina Waldron MD @ 06/07/2023 9:02:12 AM (Electronic Signature) Discharge Plan Discharge Clinical Impression: Pneumonia Qualifiers: Pneumonia type: due to unspecified organism Laterality: left Lung location: upper lobe of lung Qualified Code(s): J18.9 - Pneumonia, unspecified organism Patient Disposition: Home, Self-Care Condition: Stable Instructions: Community Acquired Pneumonia (ED) Additional Instructions: Start antibiotic as soon as possible and take as prescribed. Have written for few tablets of oxycodone to help you at bedtime with sleep for discomfort. During the day, can use Tylenol 1000 mg 3 times a day. Need to bring this report of your CT to your oncologist, they can decide if they want to change the timing of your upcoming CTs at all. In the meantime, should you have worsening symptoms such as increasing cough, worsening fevers, becoming more ill, increased shortness of breath or difficulty breathing, do need to be re-evaluated. Activity Level: Activity as Tolerated Prescriptions: New doxycycline monohydrate 100 mg tablet 100 mg PO BID Qty: 20 0RF oxycodone 5 mg tablet 5 mg PO QHS PRN (Reason: pain) Qty: 7 0RF No Action omeprazole 40 mg capsule,delayed release(DR/EC) 40 mg PO QDAY levothyroxine 75 mcg tablet 75 mcg PO DAILY carbidopa-levodopa 50-200 mg tablet extended release 1 tab PO QPM carbidopa-levodopa 25-100 mg tablet PO Follow Up/Referrals: Annie Worthington MD [Primary Care Provider] - Stand Alone Forms: [employer] Info Instructions
--- NOTE | 2023-06-07 08:33 | XR_ITS ---
Patient: MARISELA HANNAH Facility:?[facility] Patient ID:?[id number] Site Patient ID:?[id number]. Site :?1950 Study:?XRay-Chest 1 VIEW PORTABLE-06/07/2023 8:45:41 AM Ordering Physician:ROE Final Report: INDICATION: Short of breath, cough, history of lung cancer, possible fever TECHNIQUE: 1 view chest radiograph COMPARISON: None. FINDINGS: Devices: Right IJ chest port distal tip mid SVC. Lung volumes are good. Focal opacity in the left upper lobe. No pleural effusion. No pneumothorax. Heart size is normal. Suspect small hiatal hernia. Normal upper mediastinal contours. IMPRESSION: Small left upper lobe opacity is probably pneumonia with the appropriate clinical symptoms. Recommend follow-up to resolution and patient with a history of lung cancer. Dictated by Sarina Waldron MD @ 06/07/2023 9:02:12 AM Signed by:?Sarina Waldron MD @06/07/2023 9:02:12 AM (Electronic Signature)
[2023-06-07 09:05] LABS: HCO3 VBG 26 mmol/L (21-28); PCO2 VBG 41 mmHG (40-50); PO2 VBG 31.4 mmHG (25-47); pH VBG 7.406 (7.32-7.43)
[2023-06-07 09:07] LABS: Lactate* 0.7 mmol/L (0.5-1.9)
[2023-06-07 09:14] LABS: Basophils Percent Auto 0.4 % (0.0-3.0); Eosinophils Percent Auto 2.2 % (0.0-7.0); Hematocrit 33.8 % (33.0-51.0); Hemoglobin* 11.2 gm/dL (12.0-16.0); Mean Corpuscular HGB Conc 33 gm/dL (32-36); Mean Corpuscular Hemoglobin 33 pg (26-34); Mean Corpuscular Volume 100 fL (80-100); Monocytes Percent Auto 8.6 % (0.0-11.0); Neutrophils Percent Auto 35.8 % (42.0-72.0); Platelet Count* 181 K/uL (140-440); Red Blood Count 3.37 m/uL (4.00-5.20); White Blood Count* 2.68 K/uL (4.50-11.00)
[2023-06-07 09:24] LABS: Albumin* 3.5 g/dL (3.3-5.0); Chloride* 107 mmol/L (96-114)
[2023-06-07 09:25] LABS: Potassium* 4.1 mmol/L (3.6-5.1); Sodium* 137 mmol/L (135-149)
[2023-06-07 09:27] LABS: Bilirubin Total* 0.5 mg/dL (0.1-1.5); Creatinine* 0.7 mg/dL (0.5-1.5); Est. Creatinine Clearance* 44.41; Estimated Glomerular Filt Rate 91 ml/min
[2023-06-07 09:28] LABS: Alanine Aminotransferase* 5 U/L (4-35); Alkaline Phosphatase* 59 U/L (40-150); Anion Gap 5 mEq/L (7-15); Aspartate Amino Transferase* 22 U/L (12-35); Blood Urea Nitrogen* 18 mg/dL (7-30); Calcium* 8.8 mg/dL (8.4-10.6); Carbon Dioxide* 25 mmol/L (20-32); D Dimer Quantitative* 1.67 ug/ml (0.00-0.50); Glucose* 98 mg/dL (60-115); Total Protein* 6.3 g/dL (6.0-8.3)
[2023-06-07 09:31] LABS: C Reactive Protein* 1.1 mg/dL (0.5-1.0)
--- NOTE | 2023-06-07 09:38 | CT_ITS ---
Patient: MARISELA HANNAH Facility:?[facility] Patient ID:?[id number] Site Patient ID:?[id number]. Site :?06/07/2023 Study:?CT-Chest PE 95CC ISOVUE 370-06/07/2023 10:39:49 AM Ordering Physician:ROE Final Report: INDICATION: Short of breath with elevated D-dimer abnormal chest x-ray COMPARISON: Same-day radiograph, CT 08/20/2021 TECHNIQUE: CT angiogram of the chest, pulmonary embolus protocol. Multiplanar and MIP reformats are included. Contrast: 95 mL Isovue 370 FINDINGS: PE: Well timed bolus. No pulmonary emboli. The main pulmonary artery has a normal caliber. Normal size right heart chambers. No reflux below the diaphragm. Lungs: Expiratory phase imaging. Area of opacification in the left upper lobe corresponds to the abnormality seen radiographically. Extends from the hilum almost all the way to the periphery of the lung and measures 4.8 x 3.2 centimeters on the axial images, but is very flat and linear on sagittal and coronal images. This is the site of a previously treated lung cancer. Soft tissue component has increased substantially compared to this previous examination. Could still be radiation fibrosis but pneumonia and recurrence are both in the differential. Generally low lung volumes with bibasilar atelectasis. 5 millimeter nodule right lower lobe appear similar compared to prior. Limited sensitivity for very small pulmonary nodules due to expiratory phase imaging and volumes. Pleura: No pleural effusion. No pneumothorax. Lymph nodes: No adenopathy. Mediastinum: Normal cardiac chamber size. Scattered atherosclerotic plaques. No pericardial effusion. No mass. Bones: No fracture. No worrisome focal bone lesion. Chest wall: Normal. Upper abdomen: Moderate hiatal hernia. Partially exophytic left renal cyst. Hyperdense contrast excreted into both collecting systems. IMPRESSION: 1. No pulmonary embolism. 2. Favor scarring in the left upper lobe at the site of a previously treated cancer. However there is increased soft tissue since the exam in 2021 and focal recurrence or focal infection are not entirely excluded. Recommend correlation with patient`s symptoms. Consider short interval follow-up. Please note that all CT scans at this facility use dose modulation, iterative reconstruction, and/or weight-based dosing when appropriate to reduce radiation dose to as low as reasonably achievable. Dictated by Sarina Waldron MD @ 06/07/2023 10:56:49 AM Signed by:?Sarina Waldron MD @06/07/2023 10:56:49 AM (Electronic Signature)
[2023-06-07 09:45] LABS: Procalcitonin* 0.07 ng/mL (<0.50)
[2023-06-07 09:49] LABS: NT Pro B Type NatriureticPept* 169 pg/mL; Troponin I* < 0.01 ng/mL (0.01-0.04)
[2023-06-07 09:50] LABS: PCR FLU A Negative PCR FLU A (Negative); PCR FLU B Negative PCR FLU B (Negative); PCR RSV Negative PCR RSV (Negative); SARS PCR* Negative SARS-CoV-2 (Negative)
[2023-06-07 09:59] LABS: Slide Review Reflex Yes
[2023-06-07 10:00] LABS: Slide Review Acceptable Review (Acceptable)
[2023-06-07] MEDS: ACETAMINOPHEN 500 MG TABLET 1000 MG PO (10:41)
[2023-06-07] MEDS: HEPARIN 500 UNIT/5 ML SYRINGE IVF (11:28)
== END 2023-06-07 11:42 | disposition home or self-care (01) ==
PROVIDERS: Emergency Provider Family Medicine; PCP Internal Medicine
DX: J18.9 Pneumonia, unspecified organism (principal)
CPT/HCPCS: 36415; 71045; 71275; 80053; 82803; 83605; 83880; 84145; 84484; 85025; 85379; 86140; 87631; 94761; 99284; 99285; A9270; J1642; Q9967

== ENCOUNTER 2024-02-16 08:44 | Outpatient (CLI) | payer MEDICARE, SELFPAY ==
--- NOTE | 2024-02-16 08:45 | CRLHL7_ITS ---
For Patients: As a result of the Cures Act, medical imaging exams and procedure reports are released immediately into your electronic medical record. You may view this report before your referring provider. If you have questions, please contact your health care provider. INDICATION: Pain and weakness right leg. TECHNIQUE: Four-views study right femur. FINDINGS: Total knee arthroplasty on the right. No evidence of acute fracture involving the femur. No abnormalities involving the right hip. IMPRESSION: 1. Total knee arthroplasty on the right. 2. Normal radiographic examination of the right femur. Dictated by Kenia Quinones MD @ 02/17/2024 8:53:09 AM (Electronically Signed)
--- OUTSIDE RECORDS SUMMARY | 2024-02-16 08:46 | XMS_ITS | Clinical Summary ---
Author Organization [facility] Address [place], [place] [address] Care Team Providers Care Tubing Supervisor Name Role Phone Alvino Tracey MD Unavailable Dheeraj Valero Unavailable [phone] Staff, Other Clinical Unavailable UnavailAnnie Frey MD Primary Care Provider [phone] Allergies Active Allergy Reactions Criticality Noted Date Comments Ciprofloxacin Rash 12/15/2017 Nitrofurantoin Monohyd/M-Cryst Hives 09/09 Penicillins Diarrhea 06/09/2006 Medications Medication Sig Dispensed Refills Start Date End Date Status ibuprofen (ADVIL; MOTRIN) 200 mg tablet Take 4 tablets by mouth every 8 hours if needed. 0 09/22/2013 Active Active Problems Problem Noted Date Diagnosed Date Osteoarthritis of both hands 12/15/2017 Other bursitis disorders 06/09/2006 Overview (06/09/2006): HIPS Urge incontinence 06/09/2006 Immunizations Name Administration Dates Next Due COVID-19 vaccine ([employer] 30mcg/0.3mL) P F, MDV 06/07/2020,05/17/2020 Influenza, High-dose Inactivated 12/24/2014 Influenza, High-dose Quadrivalent Inactivated Influenza, Inactivated IIV3 (Age 65+ Years) Preserv Free 12/15/2017 Pneumococcal Poly,23-Valent (Pneumovax) 12/16/19 18 Pneumococcal conj 13-Valent (Prevnar 13) 017 Td (Age >=7 Years) 03/15/1998 Tdap 08/24/2008,08/24/2008 Family History Medical History Relation Name Comments Hyperlipidemia Brother Alcohol/Drug Father Allergies Father Arthritis Father osteoarthritis Heart Disease Father DE Hypertension Father Other Father MIGRAINES Cancer-breast Maternal Grandmother Allergies Mother food, colonosco py with polyps Arthritis Mother RA Osteoporosis Mother Other Sister Crohn's Relation Name Status Comments Brother Father Maternal Grandmother Mother Alive Sister Social History Tobacco Use Types Packs/Day Years Used Date Smoking Tobacco: Some Days Cigarettes Smokeless Tobacco: Never Tobacco Cessation:Ready to Q uit: No; Counseling Given: Yes Comments:5 a day Alcohol Use Standard Drinks/Week Comments No 1.7 (1 standard drink = 0.6 oz p ure alcohol) PHQ-2 Answer Date Recorded PHQ-2 Score 0 05/14/2018 Social Connections Answer Date Recorded Frequency of Communication with Friends and Fami ly Not on file 03/15/2021 Financial Resource Strain Answer Date R ecorded Difficulty of Paying Living Expenses Not on file 03/15/2021 Difficulty of Paying Living Expenses Not on file 03/15/2021 Sex and Gender Information Value Date Recorded Sex Assigned at Not on file Gender Identity Not on file Sexual Orientation Not on file Obstetrics History Para Term AB IAB SAB Ectopic Multiple Livin g Live Births 4 4 4 1 4 Date Outcome GA Total Labor Labor/2nd/3rd Weight Sex Type Anes PTL Kathy A1 A5 Name Clin Term Term Term Term Last Filed Vital Signs Vital Sign Reading Time Taken Comments Blood Pressure 113/56 10/23/2020 10:45 AM CDT Pulse 60 10/23/2020 10:45 AM CDT Temperature 36.4 C (97.6 F) 10/23/2020 9:35 AM CDT Respiratory Rate 16 10/23/2020 10:45 AM CDT Oxygen Saturation 99% 10/23/2020 10:45 AM CDT Inhaled Oxygen Concentration - - Weight 84.8 kg (187 lb) 10/23/2020 7:45 AM CDT Height 165.1 cm (5' 5) 10/23/2020 7:45 AM CDT Body Mass Index 31.12 10/23/2020 7:45 AM CDT Plan of Treatment Health Maintenance Due Date Last Done Comments Hepatitis C screening for ag e 18-79 1967 Zoster (shingles) series for age 50+ (1 of 2) 1999 Tetanus booster 08/24/2018 08/24/2008, 08/13, 03/15/1998 BMI (ht and wt on same day) for age 18+ 12/15/2018 12/15/2017, 01/25/2017, 11/26/2016, Additional history exists Depression screening for age 12+ 12/15/2018 12/16/19 18, 11/26/2016 Medicare Wellness for age 65+ 12/16/2018 12/15/2017, 11/26/2016 Fecal testing non-DNA (FIT,FOBT,iFOBT) for age 45-75 12/20/2018 12/20/2017, 11/27/2016, 10/05/2014, Additional history exists Mammogram for age 45-75 12/21/2018 12/22/19 18, 12/15/2017, 11/26/2016, Additional history exists Lipids for age 45-75 11/26/2021 11/26/2016, 08/04/2012, 08/22/2007 COVID-19 vaccine series (2023- season) 2023 12/17/2020, 06/07/2020, 05/17/2020 Influenza for age 65+ 11/14/2023 12/28/2019 , 12/15/2017, 12/24/2014 Tdap Completed 08/24/2008, 08/24/2008 DEXA/DXA scan for age 65+ Completed 10/05/2014, 06/2005 Pneumococcal series for age 65+ Completed 8, 11/26/2016 Procedures Procedure Name Priority Date/Time Associated Diagnosis Comments XR MAMMO UNI ADDL VIEWS LEFT Routine 12/21/2017 2:25 PM CDT Abnormal mammogram OCCULT BLOOD IFOBT STOOL Routine 12/20/2017 9:30 AM CDT Screening for colon cancer LIPID PANEL W REFLEX MEASURED LDL Routine 11/26/2016 10:46 AM CDT Lipid screening XR DXA BONE DENSITY 2 SITES AXIAL Routine 10/05/2014 9:10 AM CDT Screening for osteoporosis from Last 3 Months or Most Recently Relevant to Health Maintenance Results * XR MAMMO UNI ADDL VIEWS LEFT (12/21/2017 2:25 PM CDT) Anatomical Region Laterality Modality BREASTS, Breast Left Mammography Impressions 12/22/2017 6:57 AM CDT BI-RADS Category 0: Incomplete: Need Additional Imaging Evaluation and/or Prior Mammograms for Comparison RECOMMENDATION: LEFT breast ultrasound. Sean Kong D.O. Diagnostic Radiologist [email or web address]/nelson / Narrative 12/22/2017 6:57 AM CDT ADDITIONAL VIEWS LEFT BREAST 12/21/2017 CLINICAL HISTORY: Recall for further evaluation of a focal asymmetry at the 3 o'clock anterior to mid-position on screening mammogram 12/15/2017. TECHNIQUE: Spot compression CC (x two), spot compression MLO and ML projections. BREAST COMPOSITION: Fatty. FINDINGS: There is a 5-6 mm mass at the 3 o'clock anterior to mid-position of the LEFT breast. Shani Burrell INSPECTOR RADAR AND ELECTRONICS MAMMO * (ABNORMAL) OCCULT BLOOD IFOBT STOOL [[id number]] (12/20/2017 9:30 AM CDT) STOOL BLOOD ,IFOBT Positive(A ) Negative 12/21/2017 2:24 PM CDT [facility] Stool STOOL SPECIMEN / Unknown Non-Blood / Unknown 12/20/2017 9:30 AM CDT 12/21/2017 2:18 PM CDT Shani Burrell NP LABORATOR Y [facility] [address] [place] [address], * (ABNORMAL) LIPID PANEL W REFLEX MEASURED LDL (11/26/2016 10:46 AM CDT) CHOLESTEROL,TOTAL 202(H) 100 - 199 mg/dL 11/26/2016 5:51 PM CDT [facility]AT[facility] TRIGLYCERIDES 92 <150 mg/dL 11/26/2016 5:[address] [facility] HDL CHOLESTEROL 60 >40 mg/dL 7 5:[address] [facility] NON-HDL CHOLESTEROL 142 <145 mg/dl 11/26/2016 5:[address] [facility] CHOL/HDL RATIO 3.37 <4.50 11/26/2016 5:51 PM CDT [facility] LDL CHOLESTEROL 124 <=130 mg/dL 11/26/2016 5:[address] [facility] PATIENT STATUS FASTING 11/26/2016 5:51 PM CDT [facility] Blood BLOOD SPECIMEN / Unknown Venipuncture / Unknown 11/26/2016 10:46 AM CDT 11/26/2016 10:46 AM CDT Shani Burrell NP CHEMISTRY [facility] [address] [place] [address], * XR DXA BONE DENSITY 2 SITES (10/05/2014 9:10 AM CDT) Anatomical Region Laterality Modality Spine, HIPS, HIPL, HIPR Other Narrative 10/10/2014 9:27 AM CDT Please see scanned document for results of this study. Shani Burrell NP DEXA from Last 3 Months or Most Recently Relevant to Health Maintenance Advance Directives Documents on File Type Date Recorded Patient Recruiting Team Lead Expl anation Healthcare Directive 10/02/2010 [place] [facility] DIRECTIVE, [facility], 09/26/10 * Full Code (Latest Code Status on File) Date Activated Date Inactivated Comments 10/23/2020 8:13 AM 10/23/2020 1:08 PM Question Answer Comments Code Status Discussion: Per Existing Order Care Teams Tubing Supervisor Relationship Specialty Start Date End Date Annie Worthington MD [address] [place] [address] PCP - General Internal Medicine 10/16/20 Alvino Tracey MD Surgery - Orthopedics 09/22/13 Dheeraj Valero [address] [place] [address] Emulsion Operator 09/22/13 Staff, Other Clinical . Dentistry - General 11/26/16
== END 2024-02-16 08:45 | disposition home or self-care (01) ==
PROVIDERS: PCP Internal Medicine; Visit Provider Internal Medicine Hematology & Oncology
DX: M79.604 Pain in right leg (principal); C34.12 Malignant neoplasm of upper lobe, left bronchus or lung; M62.81 Muscle weakness (generalized)
CPT/HCPCS: 73552

== ENCOUNTER 2024-04-03 16:54 | Outpatient (REF) | payer MEDICARE, SELFPAY ==
[2024-04-03 18:21] LABS: Basophils Absolute Auto 0.02 K/uL (0.00-0.30); Basophils Percent Auto 0.4 % (0.0-3.0); Eosinophils Absolute Auto 0.15 K/uL (0.00-0.50); Eosinophils Percent Auto 2.8 % (0.0-7.0); Hematocrit 35.8 % (33.0-51.0); Hemoglobin* 11.6 gm/dL (12.0-16.0); Immature Granulocytes Abs Auto 0.01 K/uL (0.00-0.30); Immature Granulocytes Pct Auto 0.2 %; Lymphocytes Absolute Auto 1.22 K/uL (0.90-2.90); Lymphocytes Percent Auto 22.9 % (20-44); Mean Corpuscular HGB Conc 32 gm/dL (32-36); Mean Corpuscular Hemoglobin 32 pg (26-34); Mean Corpuscular Volume 98 fL (80-100); Monocytes Percent Auto 6.2 % (0.0-11.0); Neutrophils Absolute Auto 3.59 K/uL (1.7-7.0); Neutrophils Percent Auto 67.5 % (42.0-72.0); Platelet Count* 263 K/uL (140-440); RDW Coefficient of Variation % 14.1 % (11.5-15.5); Red Blood Count 3.66 m/uL (4.00-5.20); White Blood Count* 5.32 K/uL (4.50-11.00)
[2024-04-03 18:24] LABS: Slide Review Reflex No
== END 2024-04-03 16:55 | disposition home or self-care (01) ==
LOC: NPINS 16:54
PROVIDERS: PCP Internal Medicine; Referring Provider Internal Medicine Hematology & Oncology; Visit Provider Internal Medicine Hematology & Oncology
DX: C34.12 Malignant neoplasm of upper lobe, left bronchus or lung (principal)
CPT/HCPCS: 85025

== ENCOUNTER 2024-04-27 14:42 | Outpatient (CLI) | payer MEDICARE, SELFPAY | END 2024-04-27 14:43 | disposition home or self-care (01) | PROVIDERS: PCP Internal Medicine; Visit Provider Internal Medicine | DX: R06.09 Other forms of dyspnea (principal); E03.9 Hypothyroidism, unspecified; E66.9 Obesity, unspecified; Z01.818 Encounter for other preprocedural examination | CPT/HCPCS: 80053; 84443; 84484; 85379 ==

== ENCOUNTER 2024-04-28 15:31 | Outpatient (CLI) | payer MEDICARE, SELFPAY | END 2024-04-28 15:32 | disposition home or self-care (01) | LOC: CT 15:33 | PROVIDERS: PCP Internal Medicine; Visit Provider Internal Medicine | DX: R06.09 Other forms of dyspnea (principal); Z85.118 Personal history of other malignant neoplasm of bronchus and lung | CPT/HCPCS: 71275; Q9967 ==

== ENCOUNTER 2024-05-05 13:40 | Outpatient (CLI) | payer MEDICARE, SELFPAY | END 2024-05-05 13:41 | disposition home or self-care (01) | LOC: RAD 13:41 | PROVIDERS: PCP Internal Medicine; Visit Provider Internal Medicine | DX: R06.09 Other forms of dyspnea (principal) | CPT/HCPCS: 93306 ==

== ENCOUNTER 2024-07-07 08:48 | Outpatient (CLI) | payer MEDICARE, SELFPAY ==
[2024-07-07 10:15] LABS: Free T4 Free Thyroxine* 1.27 ng/dL (0.70-1.85)
[2024-07-07 10:51] LABS: Vitamin B12* > 1000 pg/mL (243-894)
[2024-07-08 17:15] LABS: Folate, Serum 13.7 ng/mL (>=5.9)
[2024-07-08 22:58] LABS: Homocysteine, Total 16 umol/L (0-15)
[2024-07-10 08:58] LABS: MMA Vitamin B12 Status 0.15 umol/L (0.00-0.40)
== END 2024-07-07 08:49 | disposition home or self-care (01) ==
LOC: NPINS 08:50
PROVIDERS: PCP Internal Medicine; Visit Provider Nurse Practitioner
DX: G20.A1 Parkinson's disease without dyskinesia, without mention of fluctuations (principal)
CPT/HCPCS: 82607; 82746; 83090; 84439; 84443

== ENCOUNTER 2024-08-27 13:41 | Emergency (ER) | payer MEDICARE, SELFPAY ==
--- OUTSIDE RECORDS SUMMARY | 2022-08-14 07:45 | XMS_ITS | Continuity of Care Document ---
Author Organization [facility] enter Address [address] [place] [id number] Phone Care Team Providers Care Grid Trimmer Name Role Phone [facility] Unavailable Unava ilable Procedures Procedure Date RF Lumb/Sacral Single Level BILATERAL Ju RF Lumb/Sacral 2nd Level RIGHT RF Lumb/Sacral 2nd Level LEFT 3 RF Lumb/Sacral Single Level BILATERAL Ju MAJOR JOINT OR BURSA INJ WITH ULTRASOUND Facet Jt Inj Lumbar LEFT Facet Jt Inj Lumbar RIGHT Facet Inj Lumbar 2nd Level LEFT 023 Facet Inj Lumbar 2nd Level RIGHT 2022 Facet Jt Inj Lumbar LEFT Facet Jt Inj Lumbar RIGHT Facet Inj Lumbar 2nd Level LEFT 023 Facet Inj Lumbar 2nd Level RIGHT 2022 Advance Directives Directive Yes / No Effective Date File Name No Information Encounters Encounter Description Practice Location Reason(s) For Visit Diagnoses Date Provider Providers Copied on Encounter [facility], [address] [place] [address], [id number], [place] tel:[phone] [facility] No Information 3 [facility]. [address] [place] [address], [id number], [place]. tel:[phone] Referring Provider: Shani Quiles, [address] [facility] [place], [address] . tel:[phone] [facility], [address] [place] [address], [id number], tel:[phone] [place] [address] No Information 3 [facility]. [address] [place] [address], [id number], . tel:[phone] Referring Provider: Shani Quiles, [address] [facility] [place], [address] . tel:[phone] [facility], [address] [place] [address], [id number], tel:[phone] [place] [address] No Information 3 [facility]. [address] [place] [address], [id number], . tel:[phone] Referring Provider: Shani Quiles, [address] [facility] [place], [address] . tel:[phone] [facility], [address] [place] [address], [id number], tel:[phone] [place] [address] No Information 3 [facility]. [address] [place] [address], [id number], . tel:[phone] Referring Provider: Shani Quiles, [address] [facility] [place], [address] . tel:[phone] Family History Family Member Type Diagnosis Age At Onset No Information Payers Payer name Insurance type Covered republican ID Jesus moorehaley(s) [facility] MedicareComplete Replacement 16 [id number] Social History Type Description Quantity Date Captured Comments Sex Female Smoking Status No Information Chief Complaint And Reason For Visit No Information Reason For Referral Reason For Referral No Information History Of Present Illness Encounter Date Complaint History Of Prese nt Illness No Information Functional Status Date Functional Assessmen t No Information Instructions Date Instruction Additional Infor mation No Information Assessments Type Assessment Date No Information Patient Care Teams Name Effective Dates (start - stop) Status Members No Information
--- OUTSIDE RECORDS SUMMARY | 2022-08-14 07:45 | XMS_ITS | Continuity of Care Document ---
Author Organization [facility] enter Address [address] [place] [id number] Phone Care Team Providers Care Cutter Brake Lining Name Role Phone [facility] Unavailable Unava ilable Procedures Procedure Date [...] Diagnoses Date Provider Providers Copied on Encounter [facility], [address] [place] [address], [id number], [place] tel:[phone] [facility] No Information 3 [facility]. [address] [place] [address], [id number], [place]. tel:[phone] Referring Provider: Shani Quiles, [address] [facility] [place], [address] . tel:[phone] [facility], [address] [place] [address], [id number], tel:[phone] [place] [address] No Information 3 [facility]. [address] [place] [address], [id number], . tel:[phone] Referring Provider: Shani Quiles, [address] [facility] [place], [address] . tel:[phone] [facility], [address] [place] [address], [id number], tel:[phone] [place] [address] No Information 3 [facility]. [address] [place] [address], [id number], . tel:[phone] Referring Provider: Shani Quiles, [address] [facility] [place], [address] . tel:[phone] [facility], [address] [place] [address], [id number], tel:[phone] [place] [address] No Information 3 [facility]. [address] [place] [address], [id number], . tel:[phone] Referring Provider: Shani Quiles, [address] [facility] [place], [address] . tel:[phone] Family History Family Member Type Diagnosis Age At Onset No Information Payers Payer name Insurance type Covered libertarian ID Jesus moorehaley(s) [facility] MedicareComplete Replacement [id number] Social History Type Description Quantity Date [...]
--- OUTSIDE RECORDS SUMMARY | 2022-08-21 07:44 | XMS_ITS | Continuity of Care Document ---
Author Organization [facility] Address [address] [place] [address] Care Team Providers Care Shift Superintendent Name Role Phone Neo Mena CRNA Unavailable Unavailable Procedures Procedure Date Percutaneous Image guided destruction pr ocedures B Percutaneous Image guided destruction pr ocedures B Percutaneous Image guided destruction pr ocedures B Advance Directives Directive Yes / No Effective Date File Name No Information Encounters Encounter Description Practice Location Reason(s) For Visit Diagnoses Date Provider Providers Copied on Encounter [facility], [address] [place] [address], [id number], [facility] No Information 3 Rajesh Larson. [address] [facility], [place], [place], [id number] , . tel:[phone] Referring Provider: Shani Quiles, [address] [facility] [place], [address] . tel:[phone] [facility], [address] [place] [address], [id number], [facility] No Information 3 Rajesh Larson. [address], [place], [place], [id number] , . [phone] Referring Provider: Shani Quiles, [address] [facility] [place], [address] . tel:[phone] [facility], [address] [place] [address], [id number], [place] [facility] No Information 0 3 Shea Yepez. [facility], [address] [facility] [place], [id number] , . tel:[phone] Referring Provider: Shani Quiles, [address] [facility] [place], [address] . tel:[phone] Family History Family Member Type Diagnosis Age At Onset No Information Payers Payer name Insurance type Covered libertarian ID Authoraudia anupama(s) [employer] MedicareComplete Replacement [id number] Social History Type Description Quantity Date [...]
--- OUTSIDE RECORDS SUMMARY | 2022-08-21 07:44 | XMS_ITS | Continuity of Care Document ---
Author Organization [facility] Address [address] [place] [address] Care Team Providers Care Tire Specialist Name Role Phone Neo Mena CRNA Unavailable Unavailable Procedures Procedure Date Percutaneous Image guided destruction pr ocedures B Percutaneous Image guided destruction pr ocedures B Percutaneous Image guided destruction pr ocedures B Advance Directives Directive Yes / No Effective Date File Name No Information Encounters Encounter Description Practice Location Reason(s) For Visit Diagnoses Date Provider Providers Copied on Encounter [facility], [address] [place] [address], [id number], [facility] No Information 3 Rajesh Larson. [address] [facility], [place], [place], [id number] , . tel:[phone] Referring Provider: Shani Quiles, [address] [facility] [place], [address] . tel:[phone] [facility], [address] [place] [address], [id number], [facility] No Information 3 Rajesh Larson. [address], [place], [place], [id number] , . [phone] Referring Provider: Shani Quiles, [address] [place], [address] . tel:[phone] [facility], [address] [place] [address], [id number], [place] [facility] No Information 0 3 Shea Yepez. [facility], [address] [facility] [place], [id number] , . tel:[phone] Referring Provider: Shani Quiles, [address] [place], [address] . tel:[phone] Family History Family Member Type Diagnosis Age At Onset No Information Payers Payer name Insurance type Covered republican ID Authoraudia anupama(s) A[employer] MedicareComplete Replacement [id number] Social History Type Description Quantity Date [...]
--- OUTSIDE RECORDS SUMMARY | 2022-10-28 04:15 | XMS_ITS | Continuity of Care Document ---
Author Organization [facility] jeanmarie Address [address] [place] [address] Phone Care Team Providers Care Mill Attendant Name Role Phone Will Vlad HERRING Unavailable Unavailabl e Allergies, Adverse Reactions, Alerts Substance Reaction Status Criticality amoxicillin Active No Information ciprofloxacin Active No Information nitrofurantoin Active No Informatio n latex Active No Information PENICILLIN Active No Information Medications Medication Instructions Dosage Effective Dates (start - stop) Status Comments INBRIJA (unknown strength) inhale by inhalation route the contents of 2 capsules (84 mg) as needed, not to exceed a total of 5 doses Not Available - Active carbidopa 25 mg-levodopa 100 mg tablet take 1 tablet by oral route 3 times every day 1 tablet - Active omeprazole 40 mg capsule,delayed release take 1 capsule by oral route every day before a meal 40 MG - Active levothyroxine 50 mcg capsule take 1 capsule by oral route every day 50 MCG - Active duloxetine 20 mg capsule,delayed release TAKE 1 CAPSULE BY MOUTH IN THE MORNING AND 2 CAPSULES IN THE EVENING - No Longer Active oxycodone 5 mg tablet take 1-2 tablet by oral route daily prn - No Longer Active Procedures Procedure Date OFFICE/OUTPATIENT VISIT, EST OFFICE/OUTPATIENT VISIT, EST RF Lumb/Sacral Single Level BILATERAL Ju RF Lumb/Sacral 2nd Level RIGHT 23 RF Lumb/Sacral 2nd Level LEFT 3 RT Major Joint Or Bursa Inj With Ultraso und OFFICE/OUTPATIENT VISIT, EST Facet Jt In Or MBB j Lumbar BILATERAL Ma y Facet Inj Or MBB Lumbar 2nd Level BILATE RAL Facet Jt In Or MBB j Lumbar BILATERAL Ma y- Facet Inj Or MBB Lumbar 2nd Level BILATE RAL Drug Urine Toxology With Chromatography Drug test def 8-14 classes OFFICE/OUTPATIENT VISIT, NEW Advance Directives Directive Yes / No Effective Date File Name No Information Encounters Encounter Description Practice Location Reason(s) For Visit Diagnoses Date Provider Providers Copied on Encounter [facility], [address] [place] [address] [place], [id number] , [place] tel: [phone] [facility] No Information 3 Boris Chu. [address] [place], [id number] , [place]. tel:[phone] OFFICE/OUTPA TIENT VISIT, EST [facility], [address] [place] [address] [place], [id number] , [place] tel:[phone] [facility] Back Pain (chief complaint) CancerDrug-induced polyneuropathyChron ic pain syndromePain in right kneePain in left kneeSpondylosis without myelopathy or radiculopathy, cervical regionSpondylosis without myelopathy or radiculopathy, thoracic regionSpondylosis without myelopathy or radiculopathy, lumbar regionOther snf (current) drug therapyLong term (current) use of opiate analgesicPain in right shoulder 3 [facility] [place]. [address], [place], [id number] , [place]. tel:[phone] Referring Provider: Vlad Chamorro, [address] [place] [address] [place], [address] . tel:[phone] [facility], [address] [place] [address] [place], [id number] , [place] tel:[phone] [facility] [place] No Information 3 Boris Chu. [address] [place], [id number] , [place]. tel: [phone] OFFICE/OUTPA TIENT VISIT, EST [facility], [address], [id number] , [place] tel: [phone] [facility] Back Pain (chief complaint) CancerDrug-induced polyneuropathyChron ic pain syndromePain in right kneePain in left kneeSpondylosis without myelopathy or radiculopathy, cervical regionSpondylosis without myelopathy or radiculopathy, thoracic regionSpondylosis without myelopathy or radiculopathy, lumbar regionOther snf (current) drug therapy 3 Noe Che. [id number] [place] [address] [address], Edwardvaleria coronado [place], [id number] , [place]. tel: [phone] Referring Provider: Vlad Chamorro, [address] [place] [address] [place], [address] . tel:[phone] [facility], [facility] [place], [id number] , [place] tel: [phone] [facility] Spondylosis without myelopathy or radiculopathy, lumbar region 3 Etta Mcleod. [address] [place], [id number] , [place]. tel: [phone] Referring Provider: Vlad Chamorro, [facility] [place], [address] . tel:[phone] [facility], [facility] [place], [id number] , [place] tel: [phone] [facility] Other bursitis of knee, right knee 3 Etta Mcleod. [address] [place], [id number] , [place]. tel: [phone] Referring Provider: Vlad Chamorro, [address] [facility] [place], [address] . tel:[phone] [facility], [address] [place], [id number] , [place] tel: [phone] [facility] [place] Other bursitis of right knee 3 Will Vlad. [address] [place], [id number] , [place]. tel: [phone] OFFICE/OUTPA TIENT VISIT, EST [facility], [facility] [place], [id number] , [place] tel: [phone] [facility] Back Pain (chief complaint) CancerDrug-induced polyneuropathyChron ic pain syndromePain in right kneePain in left kneeSpondylosis without myelopathy or radiculopathy, cervical regionSpondylosis without myelopathy or radiculopathy, thoracic regionSpondylosis without myelopathy or radiculopathy, lumbar regionLong term (current) use of opiate analgesic 3 No[address] Che[address] [place] [address] [address], [place], [id number] , [place]. tel: [phone] Referring Provider: Vlad Chamorro, [address] [place], [place] [address], [address] . tel:[phone] [facility], [address] [place], [id number] , [place] tel: [phone] [facility] Spondylosis without myelopathy or radiculopathy, lumbar region 3 Etta Mcleod. [address] [place], [id number] , [place]. tel: [phone] Referring Provider: Vlad Chamorro, [address] [place] [address] [place], [address] . tel:[phone] [facility], [address] [place], [id number] , [place] tel: [phone] [facility] [place] Spondylosis without myelopathy or radiculopathy, lumbar region 3 Boris Chu. [facility] [place], [id number] , [place]. tel:[phone] [facility], [address] [place] [address] [place], [id number] , [place] tel:[phone] [facility] Spondylosis without myelopathy or radiculopathy, lumbar region May-0 3 Etta Mcleod. [address] [place] [place], [id number] , [place]. tel:[phone] Referring Provider: Vlad Chamorro, [address] [place] [address] [place], [address] . tel:[phone] [facility], [address] [place] [address] [place], [id number] , [place] tel:[phone] [facility] [place] No Information 3 [facility]. [address], [place], [id number] , [place]. tel:[phone] Referring Provider: Vlad Chamorro, [address] [place] [address] [place], [address] . tel:[phone] OFFICE/OUTPA TIENT VISIT, [facility], [facility] [place], [id number] , [place] tel:[phone] [facility] [place] Back Pain (chief complaint) Chronic pain syndromeSpondylosis without myelopathy or radiculopathy, lumbar regionLong term (current) use of opiate analgesicPain in right kneeDrug-induced polyneuropathySpond ylosis without myelopathy or radiculopathy, cervical regionSpondylosis without myelopathy or radiculopathy, thoracic regionPain in left kneeEncounter for therapeutic drug level monitoringCancer 3 [facility]. [address], [place], [id number] , [place]. tel:[phone] Referring Provider: Vlad Chamorro, [address] [place] [address] [place], [address] . tel:[phone] Family History Family Member Type Diagnosis Age At Onset No Information Payers Payer name Insurance type Covered green party ID Jesus altman(s) SCOT MedicareComplete Replacement [id number] Social History Type Description Quantity Date Captured Comments Alcohol Use Details Unknown Caffeine Use Details Unknown Tobacco Use Status No Information Smoking Status No Information Sex Female Chief Complaint And Reason For Visit No Information Reason For Referral Reason For Referral No Information Plan Of Treatment Date Type Action Status Goal LADLE CLEANER Scanned. Due on due Goal TREE PULLER Paperwork. Due on due Goal Creatinine. Due on due Goal Order Annual PT. Due on due Goal OARS. Due on due Goal UDT. Due on due Goal AST (SGOT). Due on due Goal ALT (SGPT). Due on due Goal PHQ-9. Due on du e Goal CT-Colonography. Due on due Goal FIT. Due on due Goal Zoster vaccine ( 1st). Due on due Goal Height. Due on d ue Goal Lipid panel. Due on due Goal Update Social Hi story. Due on due Goal Weight. Due on d ue Goal Review Allergy L ist. Due on due Goal FIT-DNA. Due on due Goal Medication Recon ciliation. Due on due Goal Unhealthy drug u se screening. Due on due Goal Tobacco Use. Due on due Goal Hepatitis C scre ening. Due on due Goal Order Annual PT. Due on due Goal ALT (SGPT). Due on due Goal TREE PULLER Paperwork. Due on due Goal Creatinine. Due on due Goal LADLE CLEANER Scanned. Due on due Goal OARS. Due on due Goal AST (SGOT). Due on due Goal UDT. Due on due Goal Weight. Due on d ue Goal Tobacco Use. Due on due Goal Zoster vaccine ( 1st). Due on due Goal Hepatitis C scre ening. Due on due Goal FIT. Due on due Goal FIT-DNA. Due on due Goal Lipid panel. Due on due Goal CT-Colonography. Due on due Goal Review Allergy L ist. Due on due Goal Update Social Hi story. Due on due Goal Medication Recon ciliation. Due on due Goal Unhealthy drug u se screening. Due on due Goal Height. Due on d ue Goal PHQ-9. Due on du e Goal OARS. Due on due Goal UDT. Due on due Goal TREE PULLER Paperwork. Due on due Goal Creatinine. Due on due Goal ALT (SGPT). Due on due Goal Order Annual PT. Due on due Goal LADLE CLEANER Scanned. Due on due Goal AST (SGOT). Due on due Goal Unhealthy drug u se screening. Due on due Goal Update Social Hi story. Due on due Goal Lipid panel. Due on due Goal FIT. Due on due Goal Review Allergy L ist. Due on due Goal Zoster vaccine ( 1st). Due on due Goal PHQ-9. Due on du e Goal Medication Recon ciliation. Due on due Goal FIT-DNA. Due on due Goal Height. Due on d ue Goal Weight. Due on d ue Goal Tobacco Use. Due on due Goal CT-Colonography. Due on due Goal Hepatitis C scre ening. Due on due Goal TREE PULLER Paperwork. Due on due Goal LADLE CLEANER Scanned. Due on due Goal UDT. Due on due Goal Creatinine. Due on due Goal ALT (SGPT). Due on due Goal Order Annual PT. Due on due Goal OARS. Due on due Goal AST (SGOT). Due on due Goal Zoster vaccine ( 1st). Due on due Goal Medication Recon ciliation. Due on due Goal FIT. Due on due Goal Update Social Hi story. Due on due Goal Hepatitis C scre ening. Due on due Goal CT-Colonography. Due on due Goal Weight. Due on d ue Goal Unhealthy drug u se screening. Due on due Goal PHQ-9. Due on du e Goal Lipid panel. Due on due Goal Tobacco Use. Due on due Goal Review Allergy L ist. Due on due Goal Height. Due on d ue Goal FIT-DNA. Due on due Goal ALT (SGPT). Due on due Goal LADLE CLEANER Scanned. Due on due Goal Order Annual PT. Due on due Goal OARS. Due on due Goal Creatinine. Due on due Goal TREE PULLER Paperwork. Due on due Goal UDT. Due on due Goal AST (SGOT). Due on due Goal FIT-DNA. Due on due Goal Review Allergy L ist. Due on due Goal Height. Due on d ue Goal Update Social Hi story. Due on due Goal Hepatitis C scre ening. Due on due Goal CT-Colonography. Due on due Goal Weight. Due on d ue Goal Zoster vaccine ( 1st). Due on due Goal FIT. Due on due Goal PHQ-9. Due on du e Goal Medication Recon ciliation. Due on due Goal Tobacco Use. Due on due Goal Unhealthy drug u se screening. Due on due Goal Lipid panel. Due on due Goal UDT. Due on due Goal ALT (SGPT). Due on due Goal TREE PULLER Paperwork. Due on due Goal OARS. Due on due Goal AST (SGOT). Due on due Goal LADLE CLEANER Scanned. Due on due Goal Creatinine. Due on due Goal Order Annual PT. Due on due Goal Tobacco Use. Due on due Goal Height. Due on d ue Goal Hepatitis C scre ening. Due on due Goal Zoster vaccine ( 1st). Due on due Goal PHQ-9. Due on du e Goal FIT-DNA. Due on due Goal Medication Recon ciliation. Due on due Goal FIT. Due on due Goal Weight. Due on d ue Goal Review Allergy L ist. Due on due Goal Unhealthy drug u se screening. Due on due Goal Update Social Hi story. Due on due Goal Lipid panel. Due on due Goal CT-Colonography. Due on due Goal ALT (SGPT). Due on due Goal Creatinine. Due on due Goal UDT. Due on due Goal AST (SGOT). Due on due Goal OARS. Due on due Goal LADLE CLEANER Scanned. Due on due Goal Order Annual PT. Due on due Goal TREE PULLER Paperwork. Due on due Goal PHQ-9. Due on du e Goal Height. Due on d ue Goal Hepatitis C scre ening. Due on due Goal Zoster vaccine ( 1st). Due on due Goal Lipid panel. Due on due Goal Unhealthy drug u se screening. Due on due Goal Update Social Hi story. Due on due Goal FIT-DNA. Due on due Goal Weight. Due on d ue Goal Tobacco Use. Due on due Goal Review Allergy L ist. Due on due Goal FIT. Due on due Goal CT-Colonography. Due on due Goal Medication Recon ciliation. Due on due Goal Tobacco Use. Due on due Goal Update Social Hi story. Due on due Goal PHQ-9. Due on du e Goal Lipid panel. Due on due Goal FIT. Due on due Goal Review Allergy L ist. Due on due Goal Unhealthy drug u se screening. Due on due Goal Height. Due on d ue Goal CT-Colonography. Due on due Goal Hepatitis C scre ening. Due on due Goal Zoster vaccine ( 1st). Due on due Goal Weight. Due on d ue Goal Medication Recon ciliation. Due on due Goal FIT-DNA. Due on due Goal ALT (SGPT). Due on due Goal Creatinine. Due on due Goal AST (SGOT). Due on due Goal OARS. Due on due Goal UDT. Due on due Goal TREE PULLER Paperwork. Due on due Goal Order Annual PT. Due on due Goal LADLE CLEANER Scanned. Due on due Goal CT-Colonography. Due on due Goal Hepatitis C scre ening. Due on due Goal Zoster vaccine ( 1st). Due on due Goal Weight. Due on d ue Goal Medication Recon ciliation. Due on due Goal FIT-DNA. Due on due Goal Tobacco Use. Due on due Goal Update Social Hi story. Due on due Goal PHQ-9. Due on du e Goal Lipid panel. Due on due Goal FIT. Due on due Goal Review Allergy L ist. Due on due Goal Unhealthy drug u se screening. Due on due Goal Height. Due on d ue Future Order: Radiology Order X- Ray Exam Of Shoulder Right ([id number]), Ordered on: Ordered History Of Present Illness Encounter Date Complaint History Of Beth nt Illness Back Pain Severity level i s 8. Duration: chronic. The problem is fluctuating. It occurs persistently. The client describes the pain as an ache and sharp. Symptoms are aggravated by lifting, twisting and housework. Symptoms are relieved by ice, lying down, pain meds/drugs, physical therapy, rest, sitting and changing positions. Comments: Maria Del Carmen is a 72 y/o female who presents for follow up and medication refill in the setting of chronic neck, mid back, low back, and BL knee pain (R>L). She is accompanied by her son today who also contributes to her discussion of care. Pain has been fluctuating this month. S/p BL L4-L5, L5-S1 RFA on 08/14/[address] Quiles continues to provide significant benefit. She states she is able to walk better, complete housework easier, and stand for a longer amount of time. Notes increased activity will aggravate the mid back pain.Complains of ongoing headaches which begins behind the R eye and radiates upwards. Reports the episodes occurs 3-4 times a day on some days. Expressed concern with the headaches being related to a possible brain tumor. She states she has an upcoming appointment to obtain an updated Brain MRI at the end of 10/2022.Recently experienced a fall at home which caused pain in the R shoulder. Notes she had difficulty getting up from the floor following the fall along with continued pain afterward. Pain increased to the point where she had to go to the ED. Had obtained an XR with results showing nothing significant and received an injection with minimal relief. According to her son, the injection provided her with enough relief for her to walk out of the ED. Will plan to follow up with her PCP if pain persists. Of note, patient was diagnosed Parkinson's Disease. Have been following up with neurology for further care. Notes she was encouraged by the neurologist to continue taking the Cymbalta. She states she initially wanted to discontinue the medication due to the head sweats but since decreasing the Cymbalta to #2tabs HS, the side effects have improved. Reports current medication regimen provides moderate pain relief and allows for increased functionality. Rates her pain as 10/10 without medications and 8/10 with medications. Continues to utilize Cymbalta 20mg, #1tab in the AM and #2tabs in the PM, with moderate benefit. Denies other side effects from current medication regimen. No other concerns today. Back Pain Severity level i s 6. Duration: chronic. The problem is fluctuating. It occurs persistently. Symptoms are relieved by pain meds/drugs. Comments: Maria Del Carmen is a 72 y/o female who presents for follow up and medication refill in the setting of chronic neck, mid back, low back, and BL knee pain (R>L). She is accompanied by her son today who also contributes to her discussion of care. Pain has been fluctuating this month. Neuropathy in the feet continues to be the most bothersome. Notes she has consulted with oncology regarding the issue and was told the chemotherapy is not causing the neuropathy as it has been awhile since she finished the treatment. Will plan to follow up with neurology.S/p R Pes Anserine Injection on 07/31/[address] Quiles provided 50% relief. Have seen an improvement in tenderness, especially to touch. Her son states her ambulation stays the same despite the decrease in pain. S/p BL L4-L5, L5-S1 RFA on 09/01/[address] Quiles provided significant benefit. Notes her low back pain has improved significantly but BLE pain continues to persist. She states mornings are worse for her with difficulty ambulating and constant stiffness.Patient states worsening of urinary incontinence following the ablation. Have noticed the inability to hold her urge when she sits for a prolonged amount of time or walking to the bathroom. Understands she should follow up with her PCP for the ongoing issue. Reports current medication regimen provides moderate pain relief and allows for increased functionality. Have been utilizing Oxycodone 5mg and Cymbalta 40mg with moderate benefit. Inquires about trialing medications which does not include opioids. Endorses OIC which is managed with stool softeners. Denies other side effects from current medication regimen. No other concerns today. Comments: Maria Del Carmen is a 72 y/o female who presents for follow up after initial consultation and medication refill in the setting of chronic neck, mid back, low back, and BL knee pain (R>L). She is accompanied by her son today who also contributes to her discussion of care. Pain has been fluctuating this month. Neuropathy in the feet with increased burning in the L foot and R knee pain has been the most bothersome. S/p BL L4-L5, L5-S1 Confirmatory RFW on 07/24/[address] Quiles provided significant relief > 80% . Willing to move forward with the RFA at this time in order to see a decrease in low back pain. Per pt report recent CT scan with oncology was negative for cancer ; Brain MRI showed some ischemic changes Reports current medication regimen provides moderate pain relief and allows for increased functionality. Rates her pain as 9/10 without medications and 2/10 with medications. Have been utilizing Percocet 5-325mg and Cymbalta 40mg with moderate benefit. Unsure if the Cymbalta has been effective for her pain. Notes she continues to experience urinary incontinence. Endorses OIC which is managed with stool softeners. Denies other side effects from current medication regimen. No other concerns today. Back Pain Severity level i s 2. Duration: chronic. The problem is worsening. It occurs persistently. The client describes the pain as an ache. Symptoms are relieved by lying down, pain meds/drugs, rest and walking. Comments: Maria Del Carmen is a 72 y/o female who presents in-clinic today for initial consultation in the setting of chronic neck, mid back, low back, and BL knee pain (R>L). She is self-referred. Accompanied by her son, Shiraz, today who also contributes to her discussion of care. Shares the pain began after she received immunotherapy following her treatment of stage 4 metastatic brain cancer. Denies any back pain prior to the therapy. She states she also has R foot drop. Reports history of BL knee replacement which provided relief for several years until after her immunotherapy. Notes imaging for the knees showed nothing significant and was assured by specialists her replacement was intact. She has right knee pain , in medial aspect of the knee. Pain is worse with movement and prolonged standing, and relieved with sitting and medications. Using her walker also helps relieve the pain. Have tried PT through [place] in 2021 with varying degrees of benefit. Notes PT did not help with the R foot drop. She states she was referred to a learning design specialist through [facility] for the ongoing low back pain and was recommended an WILLIAM. Received the injection without any relief for the pain - sounded like an WILLIAM .Currently managed on Oxycodone 5mg (Helpful) and Hydroxyzine with moderate relief. Have been taking the Hydroxyzine for the persistent itching sensation sicne chemo therapy. Notes she typically takes the medication at night and sometimes during the day if the sensation worsens. She states she was previously on Prednisone but was advised to stop it by her oncologist. Reports the Prednisone was extremely beneficial and wished she could still be on it. Patient is interested in medication management through [facility]. She states her oncologist, Dr. Oziel Box, is unwilling to prescribe her Oxycodone long-term as it is not his area of expertise. Notes she is willing to move forward with trying the RFA for better relief of her low back pain. No other concerns today. Back Pain Severity level i s 6. Duration: chronic. The problem is worsening. It occurs persistently. The client describes the pain as an ache, burning and throbbing. Symptoms are aggravated by standing, walking and housework. Symptoms are relieved by heat, lying down, pain meds/drugs, rest and sitting. Functional Status Date Functional Assessmen t No Information Instructions Date Instruction Additional Infor mation No Information Assessments Type Assessment Date No Information Patient Care Teams Name Effective Dates (start - stop) Status Members No Information
--- OUTSIDE RECORDS SUMMARY | 2022-10-28 04:15 | XMS_ITS | Continuity of Care Document ---
Author Organization [facility] jeanmarie Address [address] [place] [address] Phone Care Team Providers Care Tower Watchman Name Role Phone Will Vlad HERRING Unavailable [...] times every day 1 tablet - Active levothyroxine 50 mcg capsule take 1 capsule by oral route every day 50 MCG - Active omeprazole 40 mg capsule,delayed release take 1 capsule by oral route every day before a meal 40 MG - Active oxycodone 5 mg tablet take 1-2 tablet by oral route daily prn - No Longer Active duloxetine 20 mg capsule,delayed release TAKE 1 CAPSULE BY MOUTH IN THE MORNING AND 2 CAPSULES IN THE EVENING - No Longer Active Procedures Procedure Date [...] MBB Lumbar 2nd Level BILATE RAL Drug test def 8-14 classes Drug Urine Toxology With Chromatography OFFICE/OUTPATIENT VISIT, NEW Advance Directives Directive Yes / No Effective Date File Name No Information Encounters Encounter Description Practice Location Reason(s) For Visit Diagnoses Date Provider Providers Copied on Encounter [facility], [address] [place] [address] [place], [id number] , [place] tel: [phone] [facility] [place] No Information 3 Boris Chu. [address] [place], [id number] , [place]. tel:[phone] OFFICE/OUTPA TIENT VISIT, EST [facility], [address] [place] [address] [place], [id number] , [place] tel:[phone] [facility] Back Pain (chief complaint) CancerDrug-induced polyneuropathyChron ic pain syndromePain in right kneePain in left kneeSpondylosis without myelopathy or radiculopathy, cervical regionSpondylosis without myelopathy or radiculopathy, thoracic regionSpondylosis without myelopathy or radiculopathy, lumbar regionOther fpc (current) drug therapyLong term (current) use of opiate analgesicPain in right shoulder 3 [facility] [place]. [address], [place], [id number] , [place]. tel:[phone] Referring Provider: Vlad Chamorro, [address] [place] [address] [place], [address] . tel:[phone] [facility], [address] [place] [address] [place], [id number] , [place] tel:[phone] [facility] [place] No Information 3 Boris Chu. [address] [place], [id number] , [place]. tel: [phone] OFFICE/OUTPA TIENT VISIT, EST [facility], [address], [id number] , [place] tel: [phone] [facility] Back Pain (chief complaint) CancerDrug-induced polyneuropathyChron ic pain syndromePain in right kneePain in left kneeSpondylosis without myelopathy or radiculopathy, cervical regionSpondylosis without myelopathy or radiculopathy, thoracic regionSpondylosis without myelopathy or radiculopathy, lumbar regionOther fpc (current) drug therapy 3 Noe Che. [id number] [place] [address] [address], Edwardvaleria coronado [place], [id number] , [place]. tel: [phone] Referring Provider: Vlad Chamorro, [address] [place] [address] [place], [address] . tel:[phone] [facility], [facility] [place], [id number] , [place] tel: [phone] [facility] Spondylosis without myelopathy or radiculopathy, lumbar region 3 Etta Mcleod. [address] [place], [id number] , [place]. tel: [phone] Referring Provider: Vlad Chamorro, [facility] [place], [address] . tel:[phone] [facility], [facility] [place], [id number] , [place] tel: [phone] [facility] Other bursitis of knee, right knee 3 Etta Mcleod. [address] [place], [id number] , [place]. tel: [phone] Referring Provider: Vlad Chamorro, [address] [facility] [place], [address] . tel:[phone] [facility], [address] [place], [id number] , [place] tel: [phone] [facility] [address] Other bursitis of right knee 3 Will Vlad. [address] [place], [id number] , [place]. tel: [phone] OFFICE/OUTPA TIENT VISIT, EST [facility], [facility] [place], [id number] , [place] tel: [phone] [facility] Back Pain (chief complaint) CancerDrug-induced polyneuropathyChron ic pain syndromePain in right kneePain in left kneeSpondylosis without myelopathy or radiculopathy, cervical regionSpondylosis without myelopathy or radiculopathy, thoracic regionSpondylosis without myelopathy or radiculopathy, lumbar regionLong term (current) use of opiate analgesic 3 No[address] Che[id number] [place] [address] [address], [place], [id number] , [place]. tel: [phone] Referring Provider: Vlad Chamorro, [address] [place], [place] [address], [address] . tel:[phone] [facility], [address] [place], [id number] , [place] tel: [phone] [facility] Spondylosis without myelopathy or radiculopathy, lumbar region 3 Etta Mcleod. [address], [id number] , [place]. tel: [phone] Referring Provider: Vlad Chamorro, [address] [place] [address] [place], [address] . tel:[phone] [facility], [address] [place], [id number] , [place] tel: [phone] [facility] [address] Spondylosis without myelopathy or radiculopathy, lumbar region 3 Boris Chu. [address] [place], [id number] , [place]. tel:[phone] [facility], [address] [place] [address] [place], [id number] , [place] tel:[phone] [facility] Spondylosis without myelopathy or radiculopathy, lumbar region May-0 3 Etta Mcleod. [address] [place], [id number] , [place]. tel:[phone] Referring Provider: Vlad Chamorro, [address] [place] [address] [place], [address] . tel:[phone] [facility], [address] [place] [address] [place], [id number] , [place] tel:[phone] [facility] [place] No Information 3 [facility]. [address], [place], [id number] , [place]. tel:[phone] Referring Provider: Vlad Chamorro, [address] [place] [address] [place], [address] . tel:[phone] OFFICE/OUTPA TIENT VISIT, [facility], [address] [place], [id number] , [place] tel:[phone] [facility] [place] Back Pain (chief complaint) Chronic pain syndromeSpondylosis without myelopathy or radiculopathy, lumbar regionLong term (current) use of opiate analgesicPain in right kneeDrug-induced polyneuropathySpond ylosis without myelopathy or radiculopathy, cervical regionSpondylosis without myelopathy or radiculopathy, thoracic regionPain in left kneeEncounter for therapeutic drug level monitoringCancer 3 [facility]. [address], [place], [id number] , [place]. tel:[phone] Referring Provider: Vlad Chamorro, [address] [place] [address] [place], [address] . tel:[phone] Family History Family Member Type Diagnosis Age At Onset No Information Payers Payer name Insurance type Covered libertarian ID Jesus altman(s) SCOT MedicareComplete Replacement [id number] Social History Type Description Quantity Date Captured Comments Alcohol Use Details Unknown Caffeine Use Details Unknown Tobacco Use Status No Information Smoking Status No Information Sex Female Chief Complaint And Reason For Visit No Information Reason For Referral Reason For Referral No Information Plan Of Treatment Date Type Action Status Goal AST (SGOT). Due on due Goal [...] C scre ening. Due on due Goal UDT. Due on due Goal OARS. Due on due Goal Order Annual PT. Due on due Goal Creatinine. Due on due Goal PASTEURISER OPERATOR Paperwork. Due on due Goal BEATER AND PULPER FEEDER Scanned. Due on due Goal Hepatitis C scre [...] u se screening. Due on due Goal Order Annual PT. Due on due Goal ALT (SGPT). Due on due Goal PASTEURISER OPERATOR Paperwork. Due on due Goal Creatinine. Due on due Goal BEATER AND PULPER FEEDER Scanned. Due on due Goal OARS. Due on due Goal AST (SGOT). Due on due Goal UDT. Due on due Goal Weight. Due on d ue Goal Tobacco Use. Due on due Goal Zoster vaccine ( 1st). Due on due Goal PHQ-9. Due on du e Goal Height. Due on d ue Goal Order Annual PT. Due on due Goal BEATER AND PULPER FEEDER Scanned. Due on due Goal AST (SGOT). Due on due Goal Unhealthy drug u se screening. Due on due Goal Update Social Hi story. Due on due Goal Lipid panel. Due on due Goal FIT. Due on due Goal Review Allergy L ist. Due on due Goal Zoster vaccine ( ). Due on due Goal PHQ-9. Due on du e Goal Medication Recon ciliation. Due on due Goal FIT-DNA. Due on due Goal Height. Due on d ue Goal Weight. Due on d ue Goal Tobacco Use. Due on due Goal CT-Colonography. Due on due Goal Hepatitis C scre ening. Due on due Goal OARS. Due on due Goal UDT. Due on due Goal PASTEURISER OPERATOR Paperwork. Due on due Goal Creatinine. Due on due Goal ALT (SGPT). Due on due Goal PASTEURISER OPERATOR Paperwork. Due on due Goal BEATER AND PULPER FEEDER Scanned. Due on due Goal UDT. Due [...] ue Goal FIT-DNA. Due on due Goal Weight. Due on d ue Goal Unhealthy drug u se screening. Due on due Goal PHQ-9. Due on du e Goal Lipid panel. Due on 023 due Goal Tobacco Use. Due on 023 due Goal Review Allergy L ist. Due [...] Goal Lipid panel. Due on due Goal ALT (SGPT). Due on due Goal BEATER AND PULPER FEEDER Scanned. Due on due Goal Order Annual PT. Due on due Goal OARS. Due on due Goal Creatinine. Due on due Goal PASTEURISER OPERATOR Paperwork. Due on due Goal UDT. Due on due Goal AST (SGOT). Due on due Goal FIT-DNA. Due on due Goal ALT (SGPT). Due on due Goal PASTEURISER OPERATOR Paperwork. Due on due Goal OARS. Due on due Goal AST (SGOT). Due on due Goal BEATER AND PULPER FEEDER Scanned. Due on due Goal Creatinine. Due [...] due Goal CT-Colonography. Due on due Goal UDT. Due on due Goal ALT (SGPT). Due on due Goal UDT. Due on due Goal AST (SGOT). Due on due Goal OARS. Due on due Goal BEATER AND PULPER FEEDER Scanned. Due on due Goal Order Annual PT. Due on due Goal PASTEURISER OPERATOR Paperwork. Due on due Goal PHQ-9. Due [...] Medication Recon ciliation. Due on due Goal Creatinine. Due on due Goal Review Allergy L ist. Due on due Goal Unhealthy drug u se screening. Due on due Goal Height. Due on d ue Goal CT-Colonography. Due on due Goal ALT (SGPT). Due on due Goal Creatinine. Due on due Goal AST (SGOT). Due on due Goal OARS. Due on due Goal UDT. Due on due Goal PASTEURISER OPERATOR Paperwork. Due on due Goal Order Annual PT. Due on due Goal BEATER AND PULPER FEEDER Scanned. Due on due Goal Tobacco Use. Due on due Goal Update Social Hi story. Due on due Goal PHQ-9. Due on du e Goal Lipid panel. Due on due Goal FIT. Due on due Goal Hepatitis C scre ening. Due on due Goal Zoster vaccine ( ). Due on due Goal Weight. Due on d ue Goal Medication Recon ciliation. Due on due Goal FIT-DNA. Due on due Goal Height. Due on d ue Goal Unhealthy drug u se screening. Due on due Goal Review Allergy L ist. Due on due Goal FIT. Due on due Goal Lipid panel. Due on due Goal PHQ-9. Due on du e Goal Update Social Hi story. Due on due Goal Tobacco Use. Due on due Goal FIT-DNA. Due on due Goal Medication Recon ciliation. Due on due Goal Weight. Due on d ue Goal Zoster vaccine ( ). Due on due Goal Hepatitis C scre ening. Due on due Goal CT-Colonography. Due on due Future Order: Radiology Order X- Ray Exam [...] lying down, pain meds/drugs, rest and walking. Back Pain Severity level i s 6. Duration: chronic. The problem is worsening. It occurs persistently. The client describes the pain as an ache, burning and throbbing. Symptoms are aggravated by standing, walking and housework. Symptoms are relieved by heat, lying down, pain meds/drugs, rest and sitting. Comments: Maria Del Carmen is a 72 [...] relieve the pain. Have tried PT through [facility] in 2021 with varying degrees of benefit. Notes PT did not help with the R foot drop. She states she was referred to a human service specialist through [facility] for the ongoing low back pain [...] Patient is interested in medication management through [facility]. She states her oncologist, Dr. Oziel Box, is unwilling to prescribe her Oxycodone long-term as it is not his area of expertise. Notes she is willing to move forward with trying the RFA for better relief of her low back pain. No other concerns today. Functional Status Date Functional Assessmen t No Information Instructions Date Instruction Additional Infor mation No Information Assessments Type Assessment Date No Information Patient Care Teams Name Effective Dates (start - stop) Status Members No Information
--- OUTSIDE RECORDS SUMMARY | 2023-12-29 02:43 | XMS_ITS | Continuity of Care Document ---
Author Organization [facility] Address [address] [address] [place] [address] Phone Care Team Providers Care Pre Algebra Teacher Name Role Phone Raul RUIZ Alyson Unavailable Unavailabl e Allergies, Adverse Reactions, Alerts Substance Reaction Status Criticality amoxicillin Active No Information nitrofurantoin Active No Informatio n adhesive tape Rash Active No Information CIPROFLOXACIN HCL Hives Active No Informa tion PENICILLIN HivesHives Active No Information Medications Medication Instructions Dosage Effective Dates (start - stop) Status Comments omeprazole 40 mg capsule,delayed release take 1 capsule by oral route every day before a meal 40 MG - Active OV needed for refills levothyroxine 50 mcg tablet take 1 tablet by oral route every day 50 MCG - Active Fiber (dextrin) 3 gram/3.5 gram oral powder take 1 dose by oral route every day 1 dose - Active Herbal Medications/Supplemen ts unknown take 2 tablet by oral route every day Prebiotic - Active Procedures Procedure Date Established Level 3 Ugi Endo; W/bx 1/mx Level Iv-surg Path Gross/micro Immunocytochemistry, Each Antibody Ugi Endo; W/insrt Guide Wire New Level 4 Advance Directives Directive Yes / No Effective Date File Name No Information Encounters Encounter Description Practice Location Reason(s) For Visit Diagnoses Date Provider Providers Copied on Encounter [facility], [address] [address], [place], [id number], [place] tel:[phone] [facility] No Information 4 [place] JOSEPH Shields. [address] [facility], [address], [id number], [place]. tel:[phone] [facility], [address] [address], [place], [id number], [place] tel:[phone] [facility] No Information 3 [place] JOSEPH Shields. [address] [facility], [facility] [address], [place], [id number], [place]. tel:[phone] Established Level 3 [facility], [address] [address], [place], [id number], [place] tel:[phone] [facility] GI Symptoms or Concerns (chief complaint) Esophageal dysphagiaGERD without esophagitis 2 [place] JOSEPH Shields. [facility], [address], [id number], [place]. tel:[phone] Oziel Box MD. tel:[phone] erring Provider: Referral Self, USE FOR SELF REFERRALS. [facility], [address] [address], [place], [id number], [place] tel:[phone] [facility] No Information 2 [place] JOSEPH Shields. [address] [place] [address], [address], [id number], [place]. tel:[phone] Oziel Box MD. tel:[phone] [facility], [address] [address], [place], [id number], [place] tel:[phone] [facility] GI Symptoms or Concerns (chief complaint) Schatzki's ringHiatal herniaGastropath yGastritis, unspecified, without bleedingGastriti s, unspecified, without bleedingDiaphrag matic hernia without obstruction or gangreneEsophage al obstruction 2 Lucia Hernandez. [address] [facility], [address], [place], [place], [id number], [place]. tel:[phone] Oziel Box MD. tel:[phone] erring Provider: Referral Self, USE FOR SELF REFERRALS. New Level 4 [facility], [address] [address], [place], [place], [id number], tel:[phone] [facility] GI Symptoms or Concerns (chief complaint) Esophageal dysphagiaOdynoph agia 2 Raul Shields. [address] [facility], [address], [place], [place], [id number], [place]. tel:[phone] Oziel Box MD. tel:[phone] erring Provider: Oziel Box MD, [email or web address], [place], [address]. tel:[phone] [facility], [address] [address], [place], [place], [id number], [place] tel:[phone] No Information No Information Referring Provider: Oziel Box MD, [email or web address], [place], [address]. tel:[phone] Family History Family Member Type Diagnosis Age At Onset Sister Problem (finding) Irritable bowel syndrom e Mother Problem (finding) Alcoholism Sister Problem (finding) Gallbladder disease Daughter Problem (finding) Thyroid disorder Daughter Problem (finding) Gallbladder disease Father Problem (finding) Diverticular disease Mother Problem (finding) GERD Father Problem (finding) Irritable bowel syndrom e Father Problem (finding) Alcoholism Father Problem (finding) Pancreatitis Son Problem (finding) Alcoholism Father Problem (finding) Crohn's disease Sister Problem (finding) Crohn's disease Daughter Problem (finding) Alcoholism Father Problem (finding) Celiac disease Sister Problem (finding) Celiac disease Father Problem (finding) Gallbladder disease Daughter Problem (finding) GERD Sister Problem (finding) Family history of Ulcer ative colitis Immunizations Vaccine Date Status Comments SARS-COV-2 (COVID-19) vaccin e, mRNA, spike protein, LNP, preservative free, 30 mcg/0.3mL dose administered Note: [facility] bi-direct ional interface ; Source: Other Registry influenza, high-dose seasona l, quadrivalent, .7mL dose, preservative free administered Note: [facility] bi-direct ional interface ; Source: Other Registry tetanus toxoid, reduced diphtheria toxoid, and acellular pertussis vaccine, adsorbed administered Note: [employer] b i-directional interface ; Source: Other Registry SARS-COV-2 (COVID-19) vaccin e, mRNA, spike protein, LNP, preservative free, 30 mcg/0.3mL dose administered Note: [facility] bi-direct ional interface ; Source: Other Registry SARS-COV-2 (COVID-19) vaccin e, mRNA, spike protein, LNP, preservative free, 30 mcg/0.3mL dose administered Note: [facility] bi-direct ional interface ; Source: Other Registry influenza, high-dose seasona l, quadrivalent, .7mL dose, preservative free administered Note: [facility] bi-direct ional interface ; Source: Other Registry Seasonal trivalent influenza vaccine, adjuvanted, preservative free administered Note: [facility] bi-direct ional interface ; Source: Other Registry Pneumovax 23 administered Note: [facility] bi-d irectional interface ; Source: Other Registry influenza, high dose seasona l, preservative-free administered Note: [facility] bi-direct ional interface ; Source: Other Registry Prevnar 13 administered Note: [facility] bi-d irectional interface ; Source: Other Registry Influenza, seasonal, injecta ble, preservative free administered Note: [facility] bi-direct ional interface ; Source: Other Registry tetanus toxoid, reduced diphtheria toxoid, and acellular pertussis vaccine, adsorbed administered Note: [employer] b i-directional interface ; Source: Other Registry Payers Payer name Insurance type Covered green party ID Authoriza tion(s) No Information Social History Type Description Quantity Date Captured Comments Sex Female Smoking Status No Information Chief Complaint And Reason For Visit No Information Reason For Referral Reason For Referral No Information Plan Of Treatment Date Type Action Status Referral Ordered: follow-up visit 6 Weeks Appointment date/timeframe: 6 Weeks ordered History Of Present Illness Encounter Date Complaint History Of Prese nt Illness GI Symptoms or Concerns This beata glover is a 71-year-old female seen today for follow-up of reflux and esophageal dysphagia. Past medical history is significant for metastatic lung cancer requiring chest radiation and chemotherapy. 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 She was alone in a private location I last saw patient on September 11, 2021 as a consultation for concern of dysphagia. At that time she had endorse an occasional sore throat with sensation food sticking in the midchest and odynophagia. She had also endorsed heartburn for which she was taking omeprazole to 20 milligrams daily. Following last visit patient underwent upper endoscopy on September [address] Myers. Benign appearing Schatzki ring at the GE junction as well as benign-appearing ring in the upper esophagus were noted. Esophagus was dilated with a 39 [place] savary dilator. Small hiatal hernia was noted and antral erythema was GI Symptoms or Concerns GI Symptoms or Concerns This beata glover is a 71-year-old female seen today at the request of Dr. Oziel Box for concern of dysphagia. Patient was advised of the limitations of a virtual visit and consented to proceed as scheduled. Patient verified that they were in a private place and no other parties were present for the visit. Visit started at 1:46pm and ended at 2:07pm. A total of 21 minutes were spent in conversation. Past medical history is significant for metastatic lung cancer , arthritis and diverticulosis. Patient reports a history of metastatic lung cancer for which she underwent chemo and radiation. She notes she completed radiation in January of 2021. She did developed radiation related esophagitis. She is currently on Imfinzi immunotherapy at this time. She notes she has had several doses of this and she did this developed oral lichen planus and a rash after the 2nd dose. Recently patient reports she has been having an occasional sore throat that comes and goes throughout the day as well as intermittent dysphagia and sensation of food sticking in the mid chest. Also notes some odynophagia that always seems to occur with drinking soda but at other times as well although she has not identified clear triggers. Since her diagnosis of lung cancer she notes she has had more issues with heartburn which is relieved by omeprazole. 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 Regarding the sensation of food sticking in her midchest she notes this happens with both liquids and solids but is intermittent. Changes to her position do not seem to change this symptom. She has not needed to vomit to get food to pass. Patient reports her weight has been a struggle for most of her life. She her weight increased 20 pounds with chemotherapy she subsequently watch what she was eating and was able to drop 30 pounds and recently has gained about 10 pounds. She reports she has had some issues with constipation but notes she is currently managing well with probiotics fiber supplement as well as other homeopathic remedies. She is having a bowel movement daily and denies any melena or hematochezia. She has not had a colonoscopy but states she has has had multiple PET scans so she does not feel this is necessary. Family history is significant for a history of colon cancer in her maternal grandfather although age of diagnosis was unclear. Denies any history of any other GI cancers in her family. Patient is a former smoker she quit in November of 2020. Denies any use of alcohol. She likes to keep herself busy with crocheting. Functional Status Date Functional Assessmen t No Information Instructions Date Instruction Additional Infor aguilar Hiatal Hernia Related to Schat zki's ring NSAIDS List Related to Schat zki's ring Schatzki's Ring Related to Schat zki's ring Assessments Type Assessment Date No Information Patient Care Teams Name Effective Dates (start - stop) Status Members No Information
--- OUTSIDE RECORDS SUMMARY | 2023-12-29 02:43 | XMS_ITS | Continuity of Care Document ---
Author Organization [facility] Address [address] [address] [place] [address] Phone Care Team Providers Care Missile Control Pilot Name Role Phone Raul RUIZ Alyson Unavailable [...] Encounter [facility], [address] [address], [place], [id number], [place] tel:[phone] [facility] No Information 4 [place] JOSEPH Shields. [address] [facility], [address], [id number], [place]. tel:[phone] [facility], [address] [address], [place], [id number], [place] tel:[phone] [facility] No Information 3 [place] JOSEPH Shields. [address] [facility], [facility] [address], [place], [id number], [place]. tel:[phone] Established Level 3 [facility], [address] [address], [place], [id number], [place] tel:[phone] [facility] GI Symptoms or Concerns (chief complaint) Esophageal dysphagiaGERD without esophagitis 2 [place] JOSEPH Shields. [facility], [address], [id number], [place]. tel:[phone] Oziel Box MD. tel:[phone] erring Provider: Referral Self, USE FOR SELF REFERRALS. [facility], [address] [address], [place], [id number], [place] tel:[phone] [facility] No Information 2 [place] JOSEPH Shields. [address] [place] [address], [address], [id number], [place]. tel:[phone] Oizel Box MD. tel:[phone] [facility], [address] [address], [place], [id number], [place] tel:[phone] [facility] GI Symptoms or Concerns (chief complaint) Schatzki's ringHiatal herniaGastropath yGastritis, unspecified, without bleedingGastriti s, unspecified, without bleedingDiaphrag matic hernia without obstruction or gangreneEsophage al obstruction 2 Lucia Hernandez. [address] [facility], [address], [place], [place], [id number], [place]. tel:[phone] Oziel Box MD. tel:[phone] erring Provider: Referral Self, USE FOR SELF REFERRALS. New Level 4 [facility], [address] [address], [place], [place], [id number], tel:[phone] [facility] GI Symptoms or Concerns (chief complaint) Esophageal dysphagiaOdynoph agia 2 Raul Shields. [address] [facility], [address], [place], [place], [id number], [place]. tel:[phone] Oziel Box MD. tel:[phone] erring Provider: Oziel Box MD, [address], [place], [address]. tel:[phone] [facility], [address] [address], [place], [place], [id number], [place] tel:[phone] No Information No Information Referring Provider: Oziel Box MD, [address], [place], [address]. tel:[phone] Family History Family Member Type Diagnosis Age [...] and acellular pertussis vaccine, adsorbed administered Note: [employer] b i-directional interface ; Source: Other Registry [...] and acellular pertussis vaccine, adsorbed administered Note: [employer] b i-directional interface ; Source: Other Registry Payers Payer name Insurance type Covered libertarian ID Authoriza tion(s) No Information Social History [...] noted. Esophagus was dilated with a 39 Nauruan savary dilator. Small hiatal hernia was noted [...]
--- OUTSIDE RECORDS SUMMARY | 2024-07-26 14:15 | XMS_ITS | Encounter Summary ---
Author Organization [facility] Address [address] [place] [id number] Care Team Providers Care Road Crew Member Name Role Phone Annie Worthington Primary Care Provider Feroz Arthur MD Unavailable [phone] Reason for Visit * Reason Comments Follow up Gait imbalance Encounter Details Date Type Department Care Team (Late st Contact Info) Description 07/26/2024 2:15 PM CDT Office Visit [facility] [[email or web address] of Neurology - [address] [place] [phone] Feroz Arthur MD [address] [place] [address] [place] [phone] Parkinson's disease without dyskinesia or fluctuating manifestations (HCC) (Primary Dx); Restless legs syndrome; Abnormality of gait and mobility Social History Tobacco Use Types Packs/Day Years Used Date Smoking Tobacco: Former Cigarettes 1 40 Smokeless Tobacco: Never Alcohol Use Standard Drinks/Week Comments Never 0 (1 standard drink = 0.6 oz pur e alcohol) Comments Unknown Sex and Gender Information Value Date Recorded Sex Assigned at Not on file Legal Sex Female 9:14 AM CDT Gender Identity Not on file Sexual Orientation Not on file documented as of this encounter Progress Notes * Feroz Arthur MD - 07/26/2024 2:15 PM CDT 07/26/2024 Neurology Follow-up Note 2:38 PM ~~~~~~~~~~~~ Feroz Arthur MD Neurology ~~~~~~~~~~~ REPORT OF CONSULTATION Patient Name: Maria Del Carmen Wells : 1950 Primary Care Physician: Annie Worthington Consulting Physician: Feroz Arthur MD History of Present Illness Maria Del Carmen Wells is a 74 year old female with Parkinson's disease who presents with worsening balanceand mobility issues. She experiences increased difficulty with balance and mobility, with a diminished ability to stand for extended periods, often resulting in swaying and a 'bobbling' sensation. Tasks requiring prolonged standing, such as doing dishes, are particularly challenging. Her balance issues have led to increased use of a walker, although she sometimes relies on friends for support when going out. Symptomsworsen as the day progresses, with mornings being relatively better. As the day goes on, she experiences increased fatigue and emotional changes, including feeling 'crabby' and frustrated due to her limitations. She also feels sad when unable to perform tasks she used to do easily. No tremors are reported, but she mentions stiffness and discomfort, particularly in her neck, whichsometimes requires her to take Aleve. Neck pain varies, sometimes requiring up to three doses of Aleve a day. She has been experiencing issues with body temperature regulation, feeling excessively cold or hot, particularly in humid conditions, impacting her ability to spend time outdoors during such weather. Her sleep has improved with the use of melatonin, averaging six hours per night. However, she struggles with getting comfortable in bed or in a chair, affecting her ability to relax and fall asleep. She reports a recent fall, attributed to environmental factors, describing difficulty navigating steps on her patio. She has concerns about her breathing, noting shortness of breath during physical activities like walking to the grocery store. She sometimes needs to stop and take deep breaths or rest. She has been prescribed carbidopa-levodopa four times a day, with an extended-release dose at night, and gabapentin at bedtime. She also takes levothyroxine, melatonin, vitamin D3, vitamin B12, and calcium with vitamin D. PAST MEDICAL HISTORY Past Medical History: Diagnosis Date Arthritis Cancer (HCC) Heartburn Thyroid disorder PAST SURGICAL HISTORY Past Surgical History: Procedure Laterality Date HX EYE SURGERY 2019 HX ORTHOPEDIC SURGERY 2017 ALLERGIES/SENSITIVITIES Allergies Allergen Reactions Ciprofloxacin Rash Nitrofurantoin Monohyd/M-Cryst Hives Penicillins Diarrhea and Hives CURRENT MEDS Current Outpatient Medications: carbidopa-levodopa (SINEMET CR) 50-200 mg oral extended release tablet, TAKE ONE TABLET BY MOUTH EVERY DAY AT BEDTIME., Disp: 90 tablet, Rfl: 3 carbidopa-levodopa (SINEMET) 25-100 mg oral tablet, TAKE 1 tablet BY MOUTH AT 6 am, 10 am, 2 pm, and 6 pm., Disp: 370 tablet, Rfl: 3 escitalopram oxalate (LEXAPRO) 10 mg oral tablet, Take 1 tablet (10 mg) by mouth once daily., Disp:90 tablet, Rfl: 3 gabapentin (NEURONTIN) 300 mg oral capsule, Take 2 capsules (600 mg) by mouth at bedtime, Disp: 180capsule, Rfl: 3 levothyroxine (SYNTHROID) 75 mcg oral tablet, , Disp: , Rfl: SOCIAL HISTORY Social History Socioeconomic History Marital status: Spouse name: Not on file Number of children: Not on file Years of education: Not on file Highest education level: Not on file Occupational History Not on file Tobacco Use Smoking status: Former Current packs/day: 1.00 Average packs/day: 1 pack/day for 40.0 years (40.0 ttl pk-yrs) Types: Cigarettes Smokeless tobacco: Never Vaping Use Vaping status: Never Used Substance and Sexual Activity Alcohol use: Never Drug use: Never Sexual activity: Not Currently Other Topics Concern Not on file Social History Narrative Not on file Social Drivers of Health Financial Resource Strain: High Risk (03/15/2021) Received from [facility] Financial Resource Strain Difficulty of Paying Living Expenses: Not on file Difficulty of Paying Living Expenses: Not on file Food Insecurity: Not on file Transportation Needs: Not on file Physical Activity: Not on file Stress: Not on file Social Connections: Unknown (03/15/2021) Received from [facility] Social Connections Frequency of Communication with Friends and Family: Not on file Intimate Partner Violence: Not on file Housing Stability: Not on file FAMILY HISTORY Family History Problem Relation Name Age of Onset Arthritis Mother Rheumatoid Alcohol Abuse Father Daddy REVIEW OF SYSTEMS: 10 point ROS was otherwise negative. There were no vitals taken for this visit. Physical Exam Patient was well groomed and appeared of appropriate age. HEENT: Pupils were equal and reactive to light and accommodation. Extraocular movements were intact. No mucosal congestion. Neck: The neck was supple. . Neurological examination: Higher mental functions: The patient was awake alert and oriented x3. Speech and language functionswere normal. Cranial nerves examination: Pupils were equal and reactive to light and accommodation. Extraocular movements were intact. There was no disconjugate gaze. There were no facial sensory deficits. There was no facial asymmetry. The tongue and uvula were in the midline. The shoulder shrug was normal. CNII- XII normal. Motor examination: The tone was normal. There is no pronator drift. The strength in the proximal and distal muscle groups in both upper and lower extremities was normal at 5/5. Reflexes were 2/5 bilaterally symmetrical in both upper and lower extremities. Coordination: Finger to nose -normal. There was no dysmetria. Gait: The patient walked with a narrow-based gait. Results DIAGNOSTIC [facility]: (09/2023) No results found for this or any previous visit. No results found. Assessment and Plan: Assessment & Plan Idiopathic Parkinson's disease Symptoms include increased use of walker, balance issues, and fatigue, worsening as the day progresses with stress exacerbating symptoms. No tremors observed. Current medication regimen effectively controls stiffness and tremors. Dyskinesia noted, possibly related to medication timing or stress. Recent fall attributed to environmental factors rather than disease progression. - Continue current carbidopa-levodopa regimen. - Monitor symptoms in relation to medication timing and stress. - Start baclofen at night for neck muscle relaxation and pain relief. - Adjust gabapentin timing to 4-4:30 PM to manage evening symptoms. - Consider Botox injections for cervical dystonia if symptoms persist. Cervical dystonia Neck pain and excessive movement likely due to cervical dystonia, causing pain and discomfort in the neck area. - Start baclofen at night for muscle relaxation and pain relief. - Consider Botox injections if symptoms persist. Mild anxiety and depression Mild anxiety and depression likely exacerbated by Parkinson's disease. Concerns about Lexapro side effects addressed, explaining that side effects are often pre-existing symptoms in study participants, not necessarily caused by the medication. Lexapro expected to help with mood stabilization and anxiety reduction. - Start Lexapro 10 mg daily in the morning after breakfast. - Practice deep breathing exercises for anxiety management. [facility] 2024: Documentation of current mediations reviewed every visit 2. Does patient use tobacco? No 3. Patient has had no falls in calendar year 4. Does patient have Dementia? No I am the single focal point of care for a condition that requires longitudinal relationship and personalized care for condition(s) specified within this medical record. I spent 32 minutes on 07/26/2024 with this patient consisting of activities before, during and after the encounter including time spent: Preparing to see the patient including review of the chart, tests, and/or outside records. Reviewing and verifying information regarding the chief complaint and history already recorded by ancillary staff and/or the patient. Obtaining history and performing medically appropriate evaluation. Counseling the patient regarding the diagnosis, additional diagnostic considerations, possible diagnostic testing, and any potential options for therapy, including conservative/lifestyle measures and pharmacotherapy including risks/benefits, side effects and adverse effects. I also counseled the patient on how to contact me with any questions or concerns, new or worsening symptoms. Ordering medications, tests, and/or procedures, and documenting the chart. Feroz Arthur MD Neurology documented in this encounter Plan of Treatment Not on file documented as of this encounter Visit Diagnoses Diagnosis Parkinson's disease without dyskinesia or fluctuating manifestations (HCC)- Primary Restless legs syndrome Restless legs syndrome (RLS) Abnormality of gait and mobility Abnormality of gait documented in this encounter Care Teams Road Crew Member Relationship Specialty Start Date End Date Annie Worthington [address] [place] [address] PCP - General 09/03/22 Feroz Arthur MD [address] [place] [address] [place] [id number] Neurology 09/03/22 documented as of this encounter
--- OUTSIDE RECORDS SUMMARY | 2024-08-27 13:43 | XMS_ITS ---
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 Name Role Phone Lia Delgado Unavailable Unavailable Allergies and Adverse Reactions Medication/Group Name Reaction Severity Date amoxicillin 08/16/2023 Penicillins 08/16/2023 nitrofurantoin Hives 08/16/2023 ciprofloxacin Hives 08/16/2023 Plan Date Type Value 09/04/2024 APPOINTMENT OV 20 MIN 08/21/2024 APPOINTMENT OUTSIDE TEST 5 M IN 08/14/2024 APPOINTMENT LAB 15 MIN 08/14/2024 APPOINTMENT PORT DRAW 15 MIN 05/01/2024 APPOINTMENT OUTSIDE TEST 5 M IN 02/18/2024 APPOINTMENT OV 20 MIN 02/14/2024 APPOINTMENT OUTSIDE TEST 5 M IN 02/14/2024 APPOINTMENT PORT DRAW 15 MIN 08/16/2023 APPOINTMENT OV 20 MIN 08/11/2023 APPOINTMENT OUTSIDE TEST 5 M IN 08/10/2023 APPOINTMENT OUTSIDE TEST 5 M IN 08/10/2023 APPOINTMENT PORT DRAW 15 MIN 02/12/2023 APPOINTMENT OV 20 MIN 02/08/2023 APPOINTMENT OUTSIDE TEST 5 M IN 02/08/2023 APPOINTMENT OUTSIDE TEST 5 M IN 02/08/2023 APPOINTMENT PORT DRAW 15 MIN 11/13/2022 APPOINTMENT OV 20 MIN 11/03/2022 APPOINTMENT OUTSIDE TEST 5 M IN 11/03/2022 APPOINTMENT PORT DRAW 15 MIN 11/03/2022 APPOINTMENT OUTSIDE TEST 5 M IN 11/03/2022 APPOINTMENT PORT DRAW 15 MIN 08/13/2022 APPOINTMENT OV 20 MIN 07/31/2022 APPOINTMENT OV 20 MIN 07/31/2022 APPOINTMENT OV 20 MIN 05/13/2022 APPOINTMENT CHART CHECK 5 IA N 05/08/2022 APPOINTMENT OV 20 MIN 05/08/2022 APPOINTMENT PORT DRAW 15 MIN 05/06/2022 APPOINTMENT PORT DRAW 15 MIN 05/06/2022 APPOINTMENT OV 30 MIN 04/30/2022 APPOINTMENT PORT DRAW 15 MIN 04/30/2022 APPOINTMENT OV 20 MIN 04/24/2022 APPOINTMENT PORT DRAW 15 MIN 04/24/2022 APPOINTMENT OV 20 MIN 04/23/2022 APPOINTMENT OUTSIDE TEST 5 M IN 04/22/2022 APPOINTMENT OUTSIDE TEST 5 M IN 04/21/2022 APPOINTMENT OUTSIDE TEST 5 M IN 04/21/2022 APPOINTMENT OUTSIDE TEST 5 M IN 04/20/2022 APPOINTMENT OUTSIDE TEST 5 M IN 02/20/2022 APPOINTMENT PORT DRAW 15 MIN 02/20/2022 APPOINTMENT CHART CHECK 5 IA N 01/16/2022 APPOINTMENT PORT DRAW 15 MIN 01/16/2022 APPOINTMENT TREATMENT 2 HR 01/16/2022 APPOINTMENT OV 20 MIN 12/19/2021 APPOINTMENT PORT DRAW 15 MIN 12/19/2021 APPOINTMENT TREATMENT 2 HR 12/19/2021 APPOINTMENT OV 20 MIN 12/16/2021 APPOINTMENT OUTSIDE TEST 5 M IN 11/21/2021 APPOINTMENT TREATMENT 2 HR 11/21/2021 APPOINTMENT OV 20 MIN 11/21/2021 APPOINTMENT PORT DRAW 15 MIN 10/24/2021 APPOINTMENT TREATMENT 2 HR 10/24/2021 APPOINTMENT PORT DRAW 15 MIN 10/24/2021 APPOINTMENT OV 30 MIN 10/02/2021 APPOINTMENT CHART CHECK 5 IA N 10/01/2021 APPOINTMENT OUTSIDE TEST 5 M IN 09/26/2021 APPOINTMENT TREATMENT 2 HR 09/26/2021 APPOINTMENT PORT DRAW 15 MIN 09/26/2021 APPOINTMENT OV 30 MIN 09/26/2021 LABORDER TSH w/ reflex to free T4 09/26/2021 LABORDER CMP 09/26/2021 LABORDER CBC w/ auto diff 10/24/2021 LABORDER CBC w/ auto diff 10/24/2021 LABORDER CMP 10/24/2021 LABORDER TSH w/ reflex to free T4 11/21/2021 LABORDER CMP 11/21/2021 LABORDER TSH w/ reflex to free T4 11/21/2021 LABORDER CBC w/ auto diff 12/19/2021 LABORDER CMP 12/19/2021 LABORDER PET/CT scan, sku ll base/mid thigh 12/19/2021 LABORDER TSH w/ reflex to free T4 12/19/2021 LABORDER CBC w/ auto diff 01/09/2022 LABORDER MRI brain w/ & w /o contrast 01/16/2022 LABORDER CBC w/ auto diff 01/16/2022 LABORDER TSH w/ reflex to free T4 01/16/2022 LABORDER CMP 02/20/2022 LABORDER TSH w/ reflex to free T4 04/18/2022 LABORDER MRI brain w/ & w /o contrast 04/21/2022 LABORDER MRI thoracic spi ne w/ contrast 04/21/2022 LABORDER MRI lumbar spine w/ & w/o contrast 04/23/2022 LABORDER PET/CT scan, sku ll base/mid thigh 05/08/2022 LABORDER CMP 05/08/2022 LABORDER TSH w/ reflex to free T4 05/08/2022 LABORDER CBC w/ auto diff 07/23/2022 LABORDER TSH w/ reflex to free T4 07/23/2022 LABORDER CBC w/ auto diff 07/23/2022 LABORDER MRI brain w/ & w /o contrast 07/23/2022 LABORDER CMP 07/24/2022 LABORDER PET/CT scan, sku ll base/mid thigh 11/02/[address] chest/abdomen /pelvis w/ IV contrast 11/03/2022 LABORDER CMP 11/03/2022 LABORDER CBC w/ auto diff 11/03/2022 LABORDER PET/CT scan, sku ll base/mid thigh 11/03/2022 LABORDER MRI brain w/ & w /o contrast 02/08/[address] chest/abdomen /pelvis w/ IV contrast 02/08/2023 LABORDER CMP 02/08/2023 LABORDER TSH w/ reflex to free T4 02/08/2023 LABORDER MRI brain w/ & w /o contrast 02/08/2023 LABORDER CBC w/ auto diff 08/10/2023 LABORDER CBC w/ auto diff 08/10/2023 LABORDER MRI brain w/ & w /o contrast 08/10/2023 LABORDER CMP 08/10/2023 LABORDER TSH w/ reflex to free T4 08/14/[address] chest/abdomen /pelvis w/ IV contrast 08/27/2023 LABORDER PET/CT scan, sku ll base/mid thigh 01/20/2024 LABORDER X-ray femur, rig ht 02/14/2024 LABORDER CMP 02/14/2024 LABORDER MRI brain w/ & w /o contrast 02/14/[address] chest/abdomen /pelvis w/ IV contrast 02/14/2024 LABORDER CBC w/ auto diff 03/23/2024 LABORDER CBC w/ auto diff 05/01/2024 LABORDER Port removal 07/26/[address] chest/abdomen /pelvis w/ IV contrast 08/14/2024 LABORDER CMP 08/14/2024 LABORDER CBC w/ auto diff 08/18/2024 LABORDER MRI brain w/ & w /o contrast Reason for Visit OUTSIDE TEST 5 MIN Encounters Date Name 09/26/2021 Anemia 09/26/2021 Brain metastasis 09/26/2021 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 09/26/2021 Dysphagia 09/26/2021 Midback pain 09/26/2021 Non-small cell lung cancer (disorder) 09/26/2021 Rash 09/26/2021 Rash Immunizations Date Name Route Dose Instructions Refusal Reason Stat us Flu vaccine - Adult Patient declined/rejected Not Administered Flu vaccine - Adult Patient declined/rejected Not Administered Flu vaccine - Adult Patient declined/rejected Not Administered Diagnostic Results Date Type Test Units Lower Limit Upper Limit Result Flag Comments Status Ordered By Specimen Source Lab Address 09/26 TSH w/ refle x to free T4 TSH uIU/ml 0.32 5.0 1.33 Test performed at [facility] on a [employer] Immunoass ay Analyzer that uses an immunoenz ymometric sandwich assay for analysis. Patient testing should not be performed using multiple methodolo ginaun due to analytica l variation seen between test methodharley amador. FINAL [facility] - [place], [address] [facility] [phone] 0 Phone: () - 09/26 CBC w/ auto diff WBC K/uL 3.0 8.9 4.1 FINAL [facility] - [facility], [address] [facility] [phone] 0 Phone: () - 09/26 CBC w/ auto diff HGB g/dL 11.3 15.2 11.3 FINAL [facility] - [place], [address] [place] [phone] 0 Phone: () - 09/26 CBC w/ auto diff PLT K/uL 113.0 364.0 210 FINAL [facility] - [place], [address] [place] [phone] 0 Phone: () - 09/26 CBC w/ auto diff Dave # (ANC) K/uL 1.6 6.6 2.4 FINAL [facility] - [place], [address] [place] [phone] 0 Phone: () - 09/26 CBC w/ auto diff Dave % % 43.0 74.0 58.2 FINAL [facility] - [place], [address] [place] [id number] 0 Phone: () - 09/26 CBC w/ auto diff IG % % 0.0 0.5 0.2 FINAL [facility] - [place], [address] [place] [phone] 0 Phone: () - 09/26 CBC w/ auto diff IG # K/uL 0.0 0.03 0.01 FINAL [facility] - [place], [address] [place] [id number] 0 Phone: () - 09/26 CBC w/ auto diff LY % % 14.0 41.0 27.0 FINAL [facility] - [place], [address] [place] [phone] 0 Phone: () - 09/26 CBC w/ auto diff MO % % 6.0 15.0 10.5 FINAL [facility] - [place], [address] [place] [phone] 0 Phone: () - 09/26 CBC w/ auto diff EO % % 0.0 7.0 3.6 FINAL [facility] - [place], [address] [place] [phone] 0 Phone: () - 09/26 CBC w/ auto diff BA % % 0.0 2.0 0.5 FINAL [facility] - [place], [address] [place] [phone] 0 Phone: () - 09/26 CBC w/ auto diff LY # K/uL 0.4 3.6 1.1 FINAL [facility] - [place], [address] [place] [id number] 0 Phone: () - 09/26 CBC w/ auto diff MO # K/uL 0.2 1.3 0.4 FINAL [facility] - [place], [address] [place] [id number] 0 Phone: () - 09/26 CBC w/ auto diff EO # K/uL 0.0 0.6 0.2 FINAL [facility] - [place], [address] [place] [phone] 0 Phone: () - 09/26 CBC w/ auto diff BA # K/uL 0.0 0.2 0.0 FINAL [facility] - [place], [address] [place] [id number] 0 Phone: () - 09/26 CBC w/ auto diff NRBC % #/100W BC 0.0 0.2 0.0 FINAL [facility] - [place], [address] [place] [id number] 0 Phone: () - 09/26 CBC w/ auto diff RBC M/uL 3.9 5.1 3.38 Low FINAL [facility] - [place], [address] [place] [id number] 0 Phone: () - 09/26 CBC w/ auto diff HCT % 35.0 48.0 34.3 Low FINAL Oziel angelo [facility] - [place], [facility] [address] [place] [id number] 0 Phone: () - 09/26 CBC w/ auto diff MCV fL 80.0 104.0 101.5 FINAL [facility] angelo [facility] - [place], [facility] [address] [place] [phone] 0 Phone: () - 09/26 CBC w/ auto diff MCH pg 26.0 35.0 33.4 FINAL [facility] - [place], [facility] [address] [place] [phone] 0 Phone: () - 09/26 CBC w/ auto diff MCHC g/dL 30.0 35.0 32.9 FINAL Oziel angelo [facility] - [place], [facility] [address] [place] [phone] 0 Phone: () - 09/26 CBC w/ auto diff MPV fL 9.5 13.4 8.9 Low FINAL Oziel angelo [facility] - [place], [facility] [address] [facility] [place] [phone] 0 Phone: () - 09/26 CBC w/ auto diff RDW % 11.4 16.1 12.60 FINAL Oziel angelo [facility] - [place], [facility] [address] [place] [id number] 0 Phone: () - 09/26 CMP Album in g/dL 3.2 5.2 4.3 FINAL [facility] - [place], [address] [place] [phone] 0 Phone: () - 09/26 CMP Alkal ine phosp hatas e U/L 46.0 116.0 65 FINAL [facility] - [place], [address] [place] [phone] 0 Phone: () - 09/26 CMP ALT/S GPT U/L 7.0 40.0 8 FINAL Oziel angelo [facility], [address] [phone] 0 Phone: () - 09/26 CMP AST/S GOT U/L 13.0 40.0 17 FINAL Oziel angelo [facility] [address] [facility] [address] [phone] 0 Phone: () - 09/26 CMP BUN mg/dL 9.0 23.0 21 FINAL Oziel angelo [place] [address] [id number] 0 Phone: () - 09/26 CMP Calci um mg/dL 8.7 10.4 9.2 FINAL Oziel angelo [place] [address] [id number] 0 Phone: () - 09/26 CMP Chlor vipin mmol/L 96.0 114.0 111 FINAL Oziel angelo [place] [address] [phone] 0 Phone: () - 09/26 CMP CO2 mmol/L 20.0 31.0 23 The expected total allowable error for CO2 is 5.6%. We have seen up to 10% differenc e in values if reported at the end of the 96 hour stability window. Please consider the clinical significa nce of a 2.0-2.5 mmol/L lower reported CO2 value if reported at the end of the 96 hour stability window. FINAL Oziel angelo [facility], [facility] [address] [phone] 0 Phone: () - 09/26 CMP Creat inine mg/dL 0.5 1.2 0.79 FINAL Oziel angelo [place] [address] [phone] 0 Phone: () - 09/26 CMP GFR estim ate ml/min /1.73m ^2 79.1 GFR is calculate d using the CKD-EPI equation. FINAL Oziel angelo [place] [address] [phone] 0 Phone: () - 09/26 CMP Gluco se mg/dL 73.0 126.0 83 FINAL Oziel Box [place] [address] [address] [facility] [address] [facility] [id number] 0 Phone: () - 09/26 CMP Potas sium mmol/L 3.5 5.1 4.4 [facility] [address] [facility] [address] [facility] [phone] 0 Phone: () - 09/26 CMP Sodiu m mmol/L 136.0 145.0 143 FINAL Oziel Box [place] [address] [address] [facility] [address] [facility] [phone] 0 Phone: () - 09/26 CMP Bilir ubin, total mg/dL 0.3 1.2 0.3 FINAL Oziel Box [place] [address] [address] [facility] [address] [phone] 0 Phone: () - 09/26 CMP Total prote in g/dL 5.7 8.2 6.3 FINAL Oziel Box [place] [address] [address] [facility] [address] [phone] 0 Phone: () - 10/24 T4, free panel T4, free ng/dL 0.7 1.8 1.62 Test performed at [facility] on a [employer] Immunoass ay Analyzer that uses an immunoenz ymometric sandwich assay for analysis. Patient testing should not be performed using multiple methodolo ginaun due to analytica l variation seen between test methodharley amador. FINAL Lia Delgado [place] [address] [address] [facility] [address] [place] [phone] 0 Phone: () - 10/24 CMP Album in g/dL 3.2 5.2 4.3 FINAL Lia [place] [address] [address] [facility] [address] [phone] 0 Phone: () - 10/24 CMP Alkal ine phosp hatas e U/L 46.0 116.0 59 FINAL Lia [facility] [address] [facility] [address] [facility] [id number] 0 Phone: () - 10/24 CMP ALT/S GPT U/L 7.0 40.0 12 FINAL [facility], [address] [facility] 100 [facility] [id number] 0 Phone: () - 10/24 CMP AST/S GOT U/L 13.0 40.0 22 FINAL [facility] [address] [facility] [address] [id number] 0 Phone: () - 10/24 CMP BUN mg/dL 9.0 23.0 16 [place] [address] [address] [facility] [address] [phone] 0 Phone: () - 10/24 CMP Calci um mg/dL 8.7 10.4 9.7 [place] [address] [phone] 0 Phone: () - 10/24 CMP Chlor vipin mmol/L 96.0 114.0 110 FINAL [place] [address] [id number] 0 Phone: () - 10/24 CMP CO2 mmol/L 20.0 31.0 23 The expected total allowable error for CO2 is 5.6%. We have seen up to 10% differenc e in values if reported at the end of the 96 hour stability window. Please consider the clinical significa nce of a 2.0-2.5 mmol/L lower reported CO2 value if reported at the end of the 96 hour stability window. FINAL [facility], [facility] [address] [phone] 0 Phone: () - 10/24 CMP Creat inine mg/dL 0.5 1.2 0.83 [place] [address] [phone] 0 Phone: () - 10/24 CMP GFR estim ate ml/min /1.73m ^2 74.5 GFR is calculate d using the CKD-EPI equation. FINAL [place] [address] [address] [facility] [address] [id number] 0 Phone: () - 10/24 CMP Gluco se mg/dL 73.0 126.0 87 FINAL [facility], [address] [facility] [id number] 0 Phone: () - 10/24 CMP Potas sium mmol/L 3.5 5.1 4.4 FINAL [facility] [address] [facility] [id number] 0 Phone: () - 10/24 CMP Sodiu m mmol/L 136.0 145.0 145 FINAL [facility], [address] [facility] [id number] 0 Phone: () - 10/24 CMP Bilir ubin, total mg/dL 0.3 1.2 0.4 FINAL [facility], [address] [facility] [id number] 0 Phone: () - 10/24 CMP Total prote in g/dL 5.7 8.2 6.4 FINAL [facility], [address] [facility] [phone] 0 Phone: () - 10/24 TSH w/ refle x to free T4 TSH uIU/ml 0.32 5.0 0.05 Low Test performed at [facility] on a [employer] Immuno[employer] ay Analyzer that uses an immunoenz ymometric sandwich assay for analysis. Patient testing should not be performed using multiple kathi amador due to analytica l variation seen between test kathi amador. FINAL [facility], [address] [facility] [phone] 0 Phone: () - 10/24 CBC w/ auto diff WBC K/uL 3.0 8.9 5.5 FINAL [facility] [place], [address] [facility] [place] [phone] 0 Phone: () - 10/24 CBC w/ auto diff HGB g/dL 11.3 15.2 12.0 FINAL [facility] [place], [address] [place] [phone] 0 Phone: () - 10/24 CBC w/ auto diff PLT K/uL 113.0 364.0 211 FINAL [facility] - [place], [address] [place] [phone] 0 Phone: () - 10/24 CBC w/ auto diff Dave # (ANC) K/uL 1.6 6.6 3.4 FINAL [facility] - [place], [address] [place] [id number] 0 Phone: () - 10/24 CBC w/ auto diff Dave % % 43.0 74.0 62.4 FINAL [facility] - [place], [address] [place] [id number] 0 Phone: () - 10/24 CBC w/ auto diff IG % % 0.0 0.5 1.1 High FINAL [facility] - [place], [address] [place] [phone] 0 Phone: () - 10/24 CBC w/ auto diff IG # K/uL 0.0 0.03 0.06 High FINAL [facility] - [place], [address] [place] [phone] 0 Phone: () - 10/24 CBC w/ auto diff LY % % 14.0 41.0 22.2 FINAL [facility] - [place], [address] [place] [id number] 0 Phone: () - 10/24 CBC w/ auto diff MO % % 6.0 15.0 10.1 FINAL [facility] - [place], [address] [place] [id number] 0 Phone: () - 10/24 CBC w/ auto diff EO % % 0.0 7.0 3.8 FINAL [facility] - [place], [address] [place] [phone] 0 Phone: () - 10/24 CBC w/ auto diff BA % % 0.0 2.0 0.4 FINAL [facility] - [place], [address] [place] [id number] 0 Phone: () - 10/24 CBC w/ auto diff LY # K/uL 0.4 3.6 1.2 FINAL Lia Tolbert a [facility] - [place], [address] [place] [id number] 0 Phone: () - 10/24 CBC w/ auto diff MO # K/uL 0.2 1.3 0.6 FINAL Lia [facility] - [place], [address] [place] [phone] 0 Phone: () - 10/24 CBC w/ auto diff EO # K/uL 0.0 0.6 0.2 FINAL Lia [facility] - [place], [address] [place] [id number] 0 Phone: () - 10/24 CBC w/ auto diff BA # K/uL 0.0 0.2 0.0 FINAL [facility] - [place], [address] [place] [id number] 0 Phone: () - 10/24 CBC w/ auto diff NRBC % #/100W BC 0.0 0.2 0.0 FINAL [facility] - [place], [address] [place] [phone] 0 Phone: () - 10/24 CBC w/ auto diff RBC M/uL 3.9 5.1 3.62 Low FINAL [facility] - [place], [address] [place] [phone] 0 Phone: () - 10/24 CBC w/ auto diff HCT % 35.0 48.0 35.7 FINAL [facility] - [place], [address] [place] [id number] 0 Phone: () - 10/24 CBC w/ auto diff MCV fL 80.0 104.0 98.6 FINAL [facility] - [place], [address] [place] [phone] 0 Phone: () - 10/24 CBC w/ auto diff MCH pg 26.0 35.0 33.1 FINAL [facility] - [place], [address] [place] [id number] 0 Phone: () - 10/24 CBC w/ auto diff MCHC g/dL 30.0 35.0 33.6 FINAL [facility] - [place], [address] [place] [id number] 0 Phone: () - 10/24 CBC w/ auto diff MPV fL 9.5 13.4 9.1 Low FINAL Lia Tolbert a [facility] - [place], [address] [place] [id number] 0 Phone: () - 10/24 CBC w/ auto diff RDW % 11.4 16.1 12.20 FINAL Lia Tolbert a [facility] - [place], [address] [place] [id number] 0 Phone: () - 11/21 CMP Album in g/dL 3.2 5.2 4.1 FINAL Lia Tilley a [facility], [address] [place] [phone] 0 Phone: () - 11/21 CMP Alkal ine phosp hatas e U/L 46.0 116.0 52 FINAL Lia Tilley a [facility] - [place], [address] [place] [id number] 0 Phone: () - 11/21 CMP ALT/S GPT U/L 7.0 40.0 17 FINAL [facility], [address] [facility] [address] [id number] 0 Phone: () - 11/21 CMP AST/S GOT U/L 13.0 40.0 24 FINAL [facility] [address] [facility] [address] [id number] 0 Phone: () - 11/21 CMP BUN mg/dL 9.0 23.0 14 FINAL [place] [address] [address] [facility] [address] [phone] 0 Phone: () - 11/21 CMP Calci um mg/dL 8.7 10.4 9.3 FINAL [place] [address] [id number] 0 Phone: () - 11/21 CMP Chlor vipin mmol/L 96.0 114.0 111 FINAL [place] [address] [phone] 0 Phone: () - 11/21 CMP CO2 mmol/L 20.0 31.0 24 The expected total allowable error for CO2 is 5.6%. We have seen up to 10% differenc e in values if reported at the end of the 96 hour stability window. Please consider the clinical significa nce of a 2.0-2.5 mmol/L lower reported CO2 value if reported at the end of the 96 hour stability window. FINAL [facility], [facility] [address] [phone] 0 Phone: () - 11/21 CMP Creat inine mg/dL 0.5 1.2 0.79 FINAL [place] [address] [id number] 0 Phone: () - 11/21 CMP GFR estim ate ml/min /1.73m ^2 79.1 GFR is calculate d using the CKD-EPI equation. FINAL [place] [address] [address] [facility] [address] [phone] 0 Phone: () - 11/21 CMP Gluco se mg/dL 73.0 126.0 86 FINAL [facility] [address] [place] [address] [phone] 0 Phone: () - 11/21 CMP Potas sium mmol/L 3.5 5.1 4.5 FINAL [facility] [address] [id number] 0 Phone: () - 11/21 CMP Sodiu m mmol/L 136.0 145.0 144 FINAL [facility] [address] [place] [address] [phone] 0 Phone: () - 11/21 CMP Bilir ubin, total mg/dL [address] [facility] [address] [facility] [address] [phone] 0 Phone: () - 11/21 CMP Total prote in g/dL 5.7 8.2 6.2 FINAL [facility] [address] [facility] [address] [phone] 0 Phone: () - 11/21 T4, free panel T4, free ng/dL 0.7 1.8 1.13 Test performed at [facility] on a [employer] Immun[employer] ay Analyzer that uses an immunoenz ymometric sandwich assay for analysis. Patient testing should not be performed using multiple methodolo gies due to analytica l variation seen between test methodolo gies. FINAL [facility] [address] [facility] [address] [phone] 0 Phone: () - 11/21 TSH w/ refle x to free T4 TSH uIU/ml 0.32 5.0 0.16 Low Test performed at [facility] on a [employer] Immun[employer] Analyzer that uses an immunoenz ymometric sandwich assay for analysis. Patient testing should not be performed using multiple methodolo gies due to analytica l variation seen between test methodolo gies. FINAL [facility], [address] [facility] [address] [place] [address] [phone] 0 Phone: () - 11/21 CBC w/ auto diff WBC K/uL 3.0 8.9 4.1 FINAL Lia Tolbert [facility] - [place], [address] [place] [phone] 0 Phone: () - 11/21 CBC w/ auto diff HGB g/dL 11.3 15.2 11.8 FINAL Lia Tolbert [facility] - [place], [address] [place] [id number] 0 Phone: () - 11/21 CBC w/ auto diff PLT K/uL 113.0 364.0 223 FINAL Lia Tolbert a [facility] - [place], [address] [place] [phone] 0 Phone: () - 11/21 CBC w/ auto diff Dave # (ANC) K/uL 1.6 6.6 2.3 FINAL Lia angelo [facility] - [place] le, [address] [place] [id number] 0 Phone: () - 11/21 CBC w/ auto diff Dave % % 43.0 74.0 56.3 FINAL Lia [facility] [place], [address] [place] [id number] 0 Phone: () - 11/21 CBC w/ auto diff IG % % 0.0 0.5 0.2 FINAL Lia Tolbert a [facility] - [place], [address] [place] [id number] 0 Phone: () - 11/21 CBC w/ auto diff IG # K/uL 0.0 0.03 0.01 FINAL Lia Tolbert [facility] - [place], [address] [place] [id number] 0 Phone: () - 11/21 CBC w/ auto diff LY % % 14.0 41.0 29.0 FINAL Lia Tilleyot a [facility] - [place], [address] [place] [id number] 0 Phone: () - 11/21 CBC w/ auto diff MO % % 6.0 15.0 10.4 FINAL Lia Tolbert a [facility] - [place], [address] [facility] [address] [place] [id number] 0 Phone: () - 11/21 CBC w/ auto diff EO % % 0.0 7.0 3.9 FINAL Lia Tolbert a [facility] - [place], [address] [facility] [address] [place] [id number] 0 Phone: () - 11/21 CBC w/ auto diff BA % % 0.0 2.0 0.2 FINAL Lia Tolbert [facility] - [place], [address] [facility] [address] [place] [id number] 0 Phone: () - 11/21 CBC w/ auto diff LY # K/uL 0.4 3.6 1.2 FINAL [facility] - [place], [address] [facility] [address] [place] [id number] 0 Phone: () - 11/21 CBC w/ auto diff MO # K/uL 0.2 1.3 0.4 FINAL [facility]ia angel[facility] - [place], [address] [facility] [address] [place] [id number] 0 Phone: () - 11/21 CBC w/ auto diff EO # K/uL 0.0 0.6 0.2 FINAL Lia Tolbert a [facility] - [place], [address] [facility] [address] [place] [id number] 0 Phone: () - 11/21 CBC w/ auto diff BA # K/uL 0.0 0.2 0.0 FINAL [facility] - [place], [address] [facility] [address] [place] [id number] 0 Phone: () - 11/21 CBC w/ auto diff NRBC % #/100W BC 0.0 0.2 0.0 FINAL Lia [facility]bert [facility] - [place], [address] [place] [id number] 0 Phone: () - 11/21 CBC w/ auto diff RBC M/uL 3.9 5.1 3.69 Low FINAL [facility] angel[facility] - [place], [address] [place] [id number] 0 Phone: () - 11/21 CBC w/ auto diff HCT % 35.0 48.0 35.6 FINAL [facility] - [place], [address] [place] [id number] 0 Phone: () - 11/21 CBC w/ auto diff MCV fL 80.0 104.0 96.5 FINAL [facility] - [place], [address] [place] [id number] 0 Phone: () - 11/21 CBC w/ auto diff MCH pg 26.0 35.0 32.0 FINAL [facility] - [place], [address] [place] [id number] 0 Phone: () - 11/21 CBC w/ auto diff MCHC g/dL 30.0 35.0 33.1 FINAL [facility] - [place], [address] [place] [id number] 0 Phone: () - 11/21 CBC w/ auto diff MPV fL 9.5 13.4 9.0 Low FINAL [facility] - [place], [address] [place] [id number] 0 Phone: () - 11/21 CBC w/ auto diff RDW % 11.4 16.1 12.40 FINAL [facility] - [place], [address] [place] [id number] 0 Phone: () - 12/19 CBC w/ auto diff WBC K/uL 3.0 8.9 4.9 FINAL Oziel [facility] - [place], [address] [place] [id number] 0 Phone: () - 12/19 CBC w/ auto diff HGB g/dL 11.3 15.2 11.8 FINAL Oziel Tol[facility] - [place], [address] [place] [id number] 0 Phone: () - 12/19 CBC w/ auto diff PLT K/uL 113.0 364.0 218 FINAL Oziel [facility] - [place], [address] [place] [id number] 0 Phone: () - 12/19 CBC w/ auto diff Dave # (ANC) K/uL 1.6 6.6 2.7 FINAL Oziel angel[facility] - [place], [address] [place] [id number] 0 Phone: () - 12/19 CBC w/ auto diff Dave % % 43.0 74.0 55.3 FINAL Oziel [facility]bert [facility] - [place], [address] [place] [id number] 0 Phone: () - 12/19 CBC w/ auto diff IG % % 0.0 0.5 0.2 FINAL Oziel [facility] - [place], [address] [place] [id number] 0 Phone: () - 12/19 CBC w/ auto diff IG # K/uL 0.0 0.03 0.01 FINAL Oziel Tolbert [facility] - [place], [address] [place] [id number] 0 Phone: () - 12/19 CBC w/ auto diff LY % % 14.0 41.0 30.6 FINAL Oziel [facility] - [place], [address] [place] [id number] 0 Phone: () - 12/19 CBC w/ auto diff MO % % 6.0 15.0 9.3 FINAL Oziel Tolbert [facility] - [place], [address] [place] [id number] 0 Phone: () - 12/19 CBC w/ auto diff EO % % 0.0 7.0 4.0 FINAL Oziel [facility] - [place], [address] [place] [id number] 0 Phone: () - 12/19 CBC w/ auto diff BA % % 0.0 2.0 0.6 FINAL [facility] - [place], [address] [place] [id number] 0 Phone: () - 12/19 CBC w/ auto diff LY # K/uL 0.4 3.6 1.5 FINAL [facility] - [place], [address] [place] [id number] 0 Phone: () - 12/19 CBC w/ auto diff MO # K/uL 0.2 1.3 0.5 FINAL Oz[facility] angel[facility] - [place], [address] [place] [id number] 0 Phone: () - 12/19 CBC w/ auto diff EO # K/uL 0.0 0.6 0.2 FINAL Oz[facility] - [place], [address] [place] [id number] 0 Phone: () - 12/19 CBC w/ auto diff BA # K/uL 0.0 0.2 0.0 FINAL Oz[facility] angel[facility] - [place], [address] [place] [id number] 0 Phone: () - 12/19 CBC w/ auto diff NRBC % #/100W BC 0.0 0.2 0.0 FINAL Oziel Tol[facility] - [place], [address] [place] [id number] 0 Phone: () - 12/19 CBC w/ auto diff RBC M/uL 3.9 5.1 3.68 Low FINAL Oz[facility] - [place], [address] [place] [id number] 0 Phone: () - 12/19 CBC w/ auto diff HCT % 35.0 48.0 35.3 FINAL Oz[facility] - [place], [address] [place] [id number] 0 Phone: () - 12/19 CBC w/ auto diff MCV fL 80.0 104.0 95.9 FINAL Oz[facility] - [place], [address] [place] [id number] 0 Phone: () - 12/19 CBC w/ auto diff MCH pg 26.0 35.0 32.1 FINAL Oziel Tolbert [facility] - [place], [address] [place] [id number] 0 Phone: () - 12/19 CBC w/ auto diff MCHC g/dL 30.0 35.0 33.4 FINAL Oziel [facility]il[facility] - [place], [address] [place] [id number] 0 Phone: () - 12/19 CBC w/ auto diff MPV fL 9.5 13.4 9.1 Low FINAL Oziel [facility] - [place], [address] [place] [id number] 0 Phone: () - 12/19 CBC w/ auto diff RDW % 11.4 16.1 13.30 FINAL Oziel [facility] - [place], [address] [place] [id number] 0 Phone: () - 12/19 CMP Album in g/dL 3.2 5.2 4.0 FINAL Oziel Tilleyot a [facility] - [place], [address] [place] [id number] 0 Phone: () - 12/19 CMP Alkal ine phosp hatas e U/L 46.0 116.0 58 FINAL Oziel angelo [facility], [address] [facility] 100 [facility] [id number] 0 Phone: () - 12/19 CMP ALT/S GPT U/L 7.0 40.0 13 FINAL Oziel angelo [facility] [address] [facility] 100 [facility] [id number] 0 Phone: () - 12/19 CMP AST/S GOT U/L 13.0 40.0 24 FINAL Oziel angelo [place] [address] [address] [facility] [address] [id number] 0 Phone: () - 12/19 CMP BUN mg/dL 9.0 23.0 18 FINAL Oziel angelo [place] [address] [id number] 0 Phone: () - 12/19 CMP Calci um mg/dL 8.7 10.4 9.7 FINAL Oziel angelo [place] [address] [id number] 0 Phone: () - 12/19 CMP Chlor vipin mmol/L 96.0 114.0 111 FINAL Oziel angelo [place] [address] [id number] 0 Phone: () - 12/19 CMP CO2 mmol/L 20.0 31.0 23 The expected total allowable error for CO2 is 5.6%. We have seen up to 10% differenc e in values if reported at the end of the 96 hour stability window. Please consider the clinical significa nce of a 2.0-2.5 mmol/L lower reported CO2 value if reported at the end of the 96 hour stability window. FINAL Oziel angelo [facility], [facility] [address] [facility] [address] [id number] 0 Phone: () - 12/19 CMP Creat inine mg/dL 0.5 1.2 0.82 FINAL Oziel angelo [place] [address] [address] [facility] 100 [facility] [id number] 0 Phone: () - 12/19 CMP GFR estim ate ml/min /1.73m ^2 75.6 GFR is calculate d using the CKD-EPI equation. FINAL Oziel angelo [facility], [address] [facility] 100 [facility] [id number] 0 Phone: () - 12/19 CMP Gluco se mg/dL 73.0 126.0 81 FINAL Oziel angelo [facility] [address] [facility] 100 [facility] [id number] 0 Phone: () - 12/19 CMP Potas sium mmol/L 3.5 5.1 4.4 FINAL Oziel angelo [place] [address] [address] [facility] [address] [id number] 0 Phone: () - 12/19 CMP Sodiu m mmol/L 136.0 145.0 144 FINAL Oziel angelo [place] [address] [address] [facility] 100 [facility] [id number] 0 Phone: () - 12/19 CMP Bilir ubin, total mg/dL 0.3 1.2 0.4 FINAL Oziel angelo [place] [address] [address] [facility] [address] [id number] 0 Phone: () - 12/19 CMP Total prote in g/dL 5.7 8.2 6.3 FINAL Oziel angelo [place] [address] [id number] 0 Phone: () - 12/19 TSH w/ refle x to free T4 TSH uIU/ml 0.32 5.0 2.75 Test performed at [facility] on a [employer] Immunoass ay Analyzer that uses an immunoenz ymometric sandwich assay for analysis. Patient testing should not be performed using multiple methodharley amador due to analytica l variation seen between test methodharley amador. FINAL Oziel angelo [place] [address] [address] [facility] [address] [phone] 0 Phone: () - 01/12 [facility] [place] See pin attacher d 01/16 CMP Album in g/dL 3.2 5.2 4.3 FINAL Oziel angelo [place] [address] [address] [facility] [address] [id number] 0 Phone: () - 11/04 /2022 CMP Alkal ine phosp hatas e U/L 46.0 116.0 64 FINAL Oziel angelo [facility], [address] [facility] 100 [facility] [id number] 0 Phone: () - 01/16 CMP ALT/S GPT U/L 7.0 40.0 12 FINAL Oziel angelo [facility] [address] [facility] 100 [facility] [id number] 0 Phone: () - 01/16 CMP AST/S GOT U/L 13.0 40.0 23 FINAL Oziel angelo [place] [address] [address] [facility] [address] [id number] 0 Phone: () - 01/16 CMP BUN mg/dL 9.0 23.0 17 FINAL Oziel angelo [place] [address] [id number] 0 Phone: () - 01/16 CMP Calci um mg/dL 8.7 10.4 9.4 FINAL Oziel angelo [place] [address] [address] [facility] [address] [id number] 0 Phone: () - 01/16 CMP Chlor vipin mmol/L 96.0 114.0 108 FINAL Oziel angelo [place] [address] [id number] 0 Phone: () - 01/16 CMP CO2 mmol/L 20.0 31.0 22 The expected total allowable error for CO2 is 5.6%. We have seen up to 10% differenc e in values if reported at the end of the 96 hour stability window. Please consider the clinical significa nce of a 2.0-2.5 mmol/L lower reported CO2 value if reported at the end of the 96 hour stability window. FINAL Oziel angelo [facility], [facility] [address] [facility] [address] [id number] 0 Phone: () - 01/16 CMP Creat inine mg/dL 0.5 1.2 1.07 FINAL Oziel angelo [facility] [address] [facility] [address] [id number] 0 Phone: () - 01/16 CMP GFR estim ate ml/min /1.73m ^2 54.9 Low GFR is calculate d using the CKD-EPI equation. FINAL Oziel angelo [address] [id number] 0 Phone: () - 01/16 CMP Gluco se mg/dL 73.0 126.0 84 FINAL Oziel angelo [place] [address] [id number] 0 Phone: () - 01/16 CMP Potas sium mmol/L 3.5 5.1 4.4 FINAL Oziel angelo [place] [address] [id number] 0 Phone: () - 01/16 CMP Sodiu m mmol/L 136.0 145.0 141 FINAL Oziel angelo [place] [address] [id number] 0 Phone: () - 01/16 CMP Bilir ubin, total mg/dL 0.3 1.2 0.4 FINAL Oziel angelo [place] [address] [id number] 0 Phone: () - 01/16 CMP Total prote in g/dL 5.7 8.2 6.6 FINAL Oziel angelo [place] [address] [id number] 0 Phone: () - 01/16 TSH w/ refle x to free T4 TSH uIU/ml 0.32 5.0 14.74 High Provider Alert. Notified Vicki by Lynne Flannery on 01/19/2022 at 2:55 PM.Test performed at [facility] on a [employer] ay Analyzer that uses an immunoenz ymometric sandwich assay for analysis. Patient testing should not be performed using multiple kathi amador due to analytica l variation seen between test kathi amador. FINAL Oziel angelo [place] [address] [phone] 0 Phone: () - 01/16 T4, free panel T4, free ng/dL 0.7 1.8 0.75 Test performed at [facility] on a [employer] 2000 Immunoass ay Analyzer that uses an immunoenz ymometric sandwich assay for analysis. Patient testing should not be performed using multiple methodharley amador due to analytica l variation seen between test methodharley amador. FINAL Oziel angelo [facility] - [place], [address] [place] [id number] 0 Phone: () - 01/16 CBC w/ auto diff WBC K/uL 3.0 8.9 4.4 FINAL Oziel angelo [facility] - [place], [address] [place] [id number] 0 Phone: () - 01/16 CBC w/ auto diff HGB g/dL 11.3 15.2 11.9 FINAL Oz[facility] angel[facility] - [place], [address] [place] [id number] 0 Phone: () - 01/16 CBC w/ auto diff PLT K/uL 113.0 364.0 231 FINAL Oziel angel[facility] - [place], [address] [place] [id number] 0 Phone: () - 01/16 CBC w/ auto diff Dave # (ANC) K/uL 1.6 6.6 2.4 FINAL Oz[facility] angel[facility] - [place], [address] [place] [id number] 0 Phone: () - 01/16 CBC w/ auto diff Dave % % 43.0 74.0 54.7 FINAL Oz[facility] angel[facility] - [place], [address] [place] [id number] 0 Phone: () - 01/16 CBC w/ auto diff IG % % 0.0 0.5 0.2 FINAL Oz[facility] angel[facility] - [place], [address] [place] [id number] 0 Phone: () - 01/16 CBC w/ auto diff IG # K/uL 0.0 0.03 0.01 FINAL Oz[facility] angel[facility] - [place], [address] [place] [id number] 0 Phone: () - 01/16 CBC w/ auto diff LY % % 14.0 41.0 31.8 FINAL Oziel Tilleyot a [facility] - [place], [address] [place] [id number] 0 Phone: () - 01/16 CBC w/ auto diff MO % % 6.0 15.0 8.9 FINAL Oziel Tilley[facility] - [place], [address] [place] [id number] 0 Phone: () - 01/16 CBC w/ auto diff EO % % 0.0 7.0 3.9 FINAL Oziel [facility]illey[facility] - [place], [address] [facility] [address] [place] [id number] 0 Phone: () - 01/16 CBC w/ auto diff BA % % 0.0 2.0 0.5 FINAL Oziel [facility] - [place], [address] [facility] [address] [place] [id number] 0 Phone: () - 01/16 CBC w/ auto diff LY # K/uL 0.4 3.6 1.4 FINAL Oz[facility] angel[facility] - [place], [address] [facility] [facility] [address] [place] [id number] 0 Phone: () - 01/16 CBC w/ auto diff MO # K/uL 0.2 1.3 0.4 FINAL Oziel Tilley[facility] - [place], [address] [place] [id number] 0 Phone: () - 01/16 CBC w/ auto diff EO # K/uL 0.0 0.6 0.2 FINAL Oziel Tilley[facility] - [place], [address] [place] [id number] 0 Phone: () - 01/16 CBC w/ auto diff BA # K/uL 0.0 0.2 0.0 FINAL Oziel Tilley[facility] - [place], [address] [place] [id number] 0 Phone: () - 01/16 CBC w/ auto diff NRBC % #/100W BC 0.0 0.2 0.0 FINAL Oziel [facility] - [place], [address] [place] [id number] 0 Phone: () - 01/16 CBC w/ auto diff RBC M/uL 3.9 5.1 3.69 Low FINAL Oziel T[facility] - [place], [address] [place] [id number] 0 Phone: () - 01/16 CBC w/ auto diff HCT % 35.0 48.0 35.0 FINAL Oziel [facility] - [place], [address] [place] [id number] 0 Phone: () - 01/16 CBC w/ auto diff MCV fL 80.0 104.0 94.9 FINAL Oziel Til[facility] - [place], [address] [place] [id number] 0 Phone: () - 01/16 CBC w/ auto diff MCH pg 26.0 35.0 32.2 FINAL Oziel [facility] - [place], [address] [place] [id number] 0 Phone: () - 01/16 CBC w/ auto diff MCHC g/dL 30.0 35.0 34.0 FINAL Oziel Til[facility] - [place], [address] [place] [id number] 0 Phone: () - 01/16 CBC w/ auto diff MPV fL 9.5 13.4 8.8 Low FINAL Oziel Tilley[facility] - [place], [address] [place] [id number] 0 Phone: () - 01/16 CBC w/ auto diff RDW % 11.4 16.1 13.90 FINAL Oziel Tilleyot a [facility] - [place], [address] [facility] [address] [place] [id number] 0 Phone: () - 02/20 TSH w/ refle x to free T4 TSH uIU/ml 0.32 5.0 Sent to Referen ce Lab. Hard copy results availab le only. Test performed at [facility] on a [employer] 2000 Immunoass ay Analyzer that uses an immunoenz ymometric sandwich assay for analysis. Patient testing should not be performed using multiple methodolo gies due to analytica l variation seen between test methodolo gies. FINAL Oziel Tolbert a [facility] - [place], [address] [place] [id number] 0 Phone: () - 02/20 TSH uIU/mL 0.35 4.94 8.74 High In Adults, TSH values between 5.00 and 10.00 uIU/ml do notnecess arily indicate the presence of Hypothyro idism.Cor relation with clinical findings such as presence of goiterand /or Thyropero xidase (TPO) Antibody may be helpful. Formore informati on please refer to MAYELA 2004; 291: 228-238.T est Performed by:[facility] [address] - [facility], [place], [facility] [place] [id number] e : FINAL Oziel Box 02/20 T4, free panel T4, free ng/dL 0.7 1.8 1.01 Test Performed by:[facility] [address] - [facility], [place], [facility], [place] [id number] e [phone] FINAL Oziel Box 05/08 CBC w/ auto diff WBC K/uL 3.0 8.9 7.3 FINAL Oziel angelo [facility] - [place], [address] [facility] [address] [place] [id number] 0 Phone: () - 05/08 CBC w/ auto diff HGB g/dL 11.3 15.2 11.0 Low FINAL Oziel angelo [facility] - [place], [address] [facility] [address] [place] [id number] 0 Phone: () - 05/08 CBC w/ auto diff PLT K/uL 113.0 364.0 210 FINAL Oziel Tilley[facility] a [facility] - [place], [address] [place] [id number] 0 Phone: () - 05/08 CBC w/ auto diff Dave # (ANC) K/uL 1.6 6.6 3.7 FINAL Oziel Tilley[facility] - [place], [address] [place] [id number] 0 Phone: () - 05/08 CBC w/ auto diff Dave % % 43.0 74.0 51.1 FINAL Oziel [facility] - [place], [address] [place] [id number] 0 Phone: () - 05/08 CBC w/ auto diff IG % % 0.0 0.5 0.3 FINAL Oz[facility] - [place], [address] [place] [id number] 0 Phone: () - 05/08 CBC w/ auto diff IG # K/uL 0.0 0.03 0.02 FINAL Oziel [facility] - [place], [address] [place] [id number] 0 Phone: () - 05/08 CBC w/ auto diff LY % % 14.0 41.0 37.9 FINAL [facility] - [place], [address] [place] [id number] 0 Phone: () - 05/08 CBC w/ auto diff MO % % 6.0 15.0 9.2 FINAL Oziel [facility] - [place], [address] [place] [id number] 0 Phone: () - 05/08 CBC w/ auto diff EO % % 0.0 7.0 1.2 FINAL [facility] - [place], [address] [place] [id number] 0 Phone: () - 05/08 CBC w/ auto diff BA % % 0.0 2.0 0.3 FINAL [facility] - [place], [address] [place] [id number] 0 Phone: () - 05/08 CBC w/ auto diff LY # K/uL 0.4 3.6 2.8 FINAL [facility] - [place], [address] [place] [id number] 0 Phone: () - 05/08 CBC w/ auto diff MO # K/uL 0.2 1.3 0.7 FINAL [facility] - [place], [address] [place] [id number] 0 Phone: () - 05/08 CBC w/ auto diff EO # K/uL 0.0 0.6 0.1 FINAL [facility] - [place], [address] [place] [id number] 0 Phone: () - 05/08 CBC w/ auto diff BA # K/uL 0.0 0.2 0.0 FINAL [facility] - [place], [address] [place] [id number] 0 Phone: () - 05/08 CBC w/ auto diff NRBC % #/100W BC 0.0 0.2 0.0 FINAL [facility] - [place], [address] [place] [id number] 0 Phone: () - 05/08 CBC w/ auto diff RBC M/uL 3.9 5.1 3.27 Low FINAL Oziel [facility] - [place], [address] [place] [id number] 0 Phone: () - 05/08 CBC w/ auto diff HCT % 35.0 48.0 32.1 Low FINAL [facility] - [place], [address] [place] [id number] 0 Phone: () - 05/08 CBC w/ auto diff MCV fL 80.0 104.0 98.2 FINAL Oziel angelo [facility] - [place], [address] [place] [id number] 0 Phone: () - 05/08 CBC w/ auto diff MCH pg 26.0 35.0 33.6 FINAL Oz[facility] angel[facility] - [place], [address] [place] [id number] 0 Phone: () - 05/08 CBC w/ auto diff MCHC g/dL 30.0 35.0 34.3 FINAL Oziel angelo [facility] - [place], [address] [place] [id number] 0 Phone: () - 05/08 CBC w/ auto diff MPV fL 9.5 13.4 9.4 Low FINAL Oziel angel[facility] - [place], [address] [place] [id number] 0 Phone: () - 05/08 CBC w/ auto diff RDW % 11.4 16.1 13.10 FINAL Oz[facility] angel[facility] - [place], [address] [place] [id number] 0 Phone: () - 05/08 CMP Album in g/dL 3.2 5.2 4.0 FINAL Oziel angelo [facility], [address] [place] [id number] 0 Phone: () - 05/08 CMP Alkal ine phosp hatas e U/L 46.0 116.0 56 FINAL Oziel angelo [facility], [address] [place] [id number] 0 Phone: () - 05/08 CMP ALT/S GPT U/L 7.0 40.0 17 FINAL Oziel angelo [facility], [address] [place] [id number] 0 Phone: () - 05/08 CMP AST/S GOT U/L 13.0 40.0 21 FINAL Oziel angelo [facility], [address] [facility] 100 [facility] [id number] 0 Phone: () - 05/08 CMP BUN mg/dL 9.0 23.0 22 FINAL Oziel angelo [place] [address] [address] [facility] 100 [facility] [id number] 0 Phone: () - 05/08 CMP Calci um mg/dL 8.7 10.4 9.3 FINAL Oziel angelo [place] [address] [address] [facility] 100 [facility] [id number] 0 Phone: () - 05/08 CMP Chlor vipin mmol/L 96.0 114.0 112 FINAL Oziel angelo [place] [address] [address] [facility] 100 [facility] [id number] 0 Phone: () - 05/08 CMP CO2 mmol/L 20.0 31.0 23 The expected total allowable error for CO2 is 5.6%. We have seen up to 10% differenc e in values if reported at the end of the 96 hour stability window. Please consider the clinical significa nce of a 2.0-2.5 mmol/L lower reported CO2 value if reported at the end of the 96 hour stability window. FINAL Oziel angelo [place] [address] [id number] 0 Phone: () - 05/08 CMP Creat inine mg/dL 0.5 1.2 0.86 FINAL Oziel angelo [place] [address] [id number] 0 Phone: () - 05/08 CMP GFR estim ate ml/min /1.73m ^2 71.2 GFR is calculate d using the CKD-EPI equation. FINAL Oziel angelo [place] [address] [id number] 0 Phone: () - 05/08 CMP Gluco se mg/dL 73.0 126.0 77 FINAL Oziel angelo [facility] [address] [facility] 100 [facility] [id number] 0 Phone: () - 05/08 CMP Potas sium mmol/L 3.5 5.1 3.9 FINAL Oziel angelo [facility], [address] [facility] [facility] [facility] [id number] 0 Phone: () - 05/08 CMP Sodiu m mmol/L 136.0 145.0 148 High FINAL Oziel angelo [facility], [address] [facility] 100 [facility] [id number] 0 Phone: () - 05/08 CMP Bilir ubin, total mg/dL 0.3 1.2 0.4 FINAL Oziel angelo [facility], [address] [facility] [facility] [address] [facility] [id number] 0 Phone: () - 05/08 CMP Total prote in g/dL 5.7 8.2 6.1 FINAL Oziel angelo [facility] [address] [facility] 100 [facility] [id number] 0 Phone: () - 05/08 TSH w/ refle x to free T4 TSH uIU/ml 0.32 5.0 1.36 Test performed at [facility] on a [employer] Immunoass ay Analyzer that uses an immunoenz ymometric sandwich assay for analysis. Patient testing should not be performed using multiple methodolo ginaun due to analytica l variation seen between test methodolo marjorie. FINAL Oziel angelo [facility], [address] [facility] 100 [facility] [id number] 0 Phone: () - 07/23 [facility] [place] See pin attacher d 07/23 [facility] [place] See pin attacher d 11/03 CBC w/ auto diff WBC K/uL 3.0 8.9 4.7 FINAL Oziel angelo [facility] [place] , [address] [facility] [address] [facility] [place] [id number] 0 Phone: () - 11/03 CBC w/ auto diff HGB g/dL 11.3 15.2 11.6 FINAL Oziel angelo [facility] [place] , [address] [facility] [address] [facility] [place] [id number] 0 Phone: () - 11/03 CBC w/ auto diff PLT K/uL 113.0 364.0 248 FINAL Oziel angelo [facility] [place] , [address] [place] [id number] 0 Phone: () - 11/03 CBC w/ auto diff Dave # (ANC) K/uL 1.6 6.6 2.9 FINAL Oziel Tilleyot a [facility] [place], [address] [place] [id number] 0 Phone: () - 11/03 CBC w/ auto diff Dave % % 43.0 74.0 60.9 FINAL Oziel Tilleyot a [facility] [place], [address] [place] [id number] 0 Phone: () - 11/03 CBC w/ auto diff IG % % 0.0 0.5 0.4 FINAL Oziel Tilleyot a [facility] [place], [address] [place] [id number] 0 Phone: () - 11/03 CBC w/ auto diff IG # K/uL 0.0 0.03 0.02 FINAL Oziel Tilleyot a [facility] [place], [address] [place] [id number] 0 Phone: () - 11/03 CBC w/ auto diff LY % % 14.0 41.0 26.8 FINAL Oziel Tilleyot a [facility] [place], [address] [place] [id number] 0 Phone: () - 11/03 CBC w/ auto diff MO % % 6.0 15.0 8.5 FINAL Oziel Tilleyot a [facility] [place], [address] [place] [id number] 0 Phone: () - 11/03 CBC w/ auto diff EO % % 0.0 7.0 3.0 FINAL Oziel [facility]ley[facility] a [facility] [place], [address] [place] [id number] 0 Phone: () - 11/03 CBC w/ auto diff BA % % 0.0 2.0 0.4 FINAL Oziel T[facility]ley[facility] a [facility] [place], [address] [place] [id number] 0 Phone: () - 11/03 CBC w/ auto diff LY # K/uL 0.4 3.6 1.3 FINAL Oziel Tilleyot a [facility] [place], [address] [place] [id number] 0 Phone: () - 11/03 CBC w/ auto diff MO # K/uL 0.2 1.3 0.4 FINAL Oziel Tilleyot a [facility] [place], [address] [place] [id number] 0 Phone: () - 11/03 CBC w/ auto diff EO # K/uL 0.0 0.6 0.1 FINAL Oziel Tilleyot a [facility] - [place], [address] [place] [id number] 0 Phone: () - 11/03 CBC w/ auto diff BA # K/uL 0.0 0.2 0.0 FINAL Oziel Tolbert a [facility] - [place], [address] [place] [id number] 0 Phone: () - 11/03 CBC w/ auto diff NRBC % #/100W BC 0.0 0.2 0.0 FINAL Oziel angelo [facility] [place], [address] [place] [id number] 0 Phone: () - 11/03 CBC w/ auto diff RBC M/uL 3.9 5.1 3.52 Low FINAL Oziel Tilleyot a [facility] [place], [address] [place] [id number] 0 Phone: () - 11/03 CBC w/ auto diff HCT % 35.0 48.0 34.2 Low FINAL Oziel Tilleyot a [facility] - [place], [address] [place] [id number] 0 Phone: () - 11/03 CBC w/ auto diff MCV fL 80.0 104.0 97.2 FINAL Oziel Box [place] [facility] [place], [address] [place] [id number] 0 Phone: () - 11/03 CBC w/ auto diff MCH pg 26.0 35.0 33.0 FINAL Oziel angelo [facility] [place], [address] [place] [id number] 0 Phone: () - 11/03 CBC w/ auto diff MCHC g/dL 30.0 35.0 33.9 FINAL Oziel angelo [facility] [place], [address] [place] [id number] 0 Phone: () - 11/03 CBC w/ auto diff MPV fL 9.5 13.4 8.7 Low FINAL Oziel angelo [facility] [place], [address] [place] [id number] 0 Phone: () - 11/03 CBC w/ auto diff RDW % 11.4 16.1 14.40 FINAL Oziel angelo [facility] [place], [address] [place] [id number] 0 Phone: () - 11/03 CMP Album in g/dL 3.2 5.2 4.1 FINAL Oziel angelo [facility], [address] [place] [id number] 0 Phone: () - 11/03 CMP Alkal ine phosp hatas e U/L 46.0 116.0 59 FINAL Oziel angelo [facility], [address] [place] [id number] 0 Phone: () - 11/03 CMP ALT/S GPT U/L 7.0 40.0 <7 FINAL Oziel angelo [facility], [address] [place] [id number] 0 Phone: () - 11/03 CMP AST/S GOT U/L 13.0 40.0 24 FINAL Oziel angelo [facility], [address] [place] [id number] 0 Phone: () - 11/03 CMP BUN mg/dL 9.0 23.0 16.0 FINAL Oziel angelo [place] [address] [address] [facility] 100 [facility] [id number] 0 Phone: () - 11/03 CMP Calci um mg/dL 8.7 10.4 9.1 FINAL Oziel angelo [facility] [address] [facility] 100 [facility] [id number] 0 Phone: () - 11/03 CMP Chlor vipin mmol/L 96.0 114.0 105 FINAL Oziel angelo [place] [address] [address] [facility] 100 [facility] [id number] 0 Phone: () - 11/03 CMP CO2 mmol/L 20.0 31.0 24 The expected total allowable error for CO2 is 5.6%. We have seen up to 10% differenc e in values if reported at the end of the 96 hour stability window. Please consider the clinical significa nce of a 2.0-2.5 mmol/L lower reported CO2 value if reported at the end of the 96 hour stability window. FINAL Oziel angelo [place] [address] [id number] 0 Phone: () - 11/03 CMP Creat inine mg/dL 0.5 1.2 0.88 FINAL Oziel angelo [place] [address] [id number] Phone: () - 11/03 CMP GFR estim ate ml/min /1.73m ^2 69.0 GFR is calculate d using the CKD-EPI equation. FINAL Oziel angelo [place] [address] [address] [facility] 100 [facility] [id number] 0 Phone: () - 11/03 CMP Gluco se mg/dL 73.0 126.0 105 FINAL Oziel angelo [place] [address] [address] [facility] 100 [facility] [id number] 0 Phone: () - 11/03 CMP Potas sium mmol/L 3.5 5.1 4.4 FINAL Oziel angelo [place] [address] [facility] [address] [facility] [id number] 0 Phone: () - 11/03 CMP Sodiu m mmol/L 136.0 145.0 139 FINAL Oziel angelo [facility] [place], [address] [facility] [id number] 0 Phone: () - 11/03 CMP Bilir ubin, total mg/dL 0.3 1.2 0.6 FINAL Oziel angelo [facility], [address] [facility] [id number] 0 Phone: () - 11/03 CMP Total prote in g/dL 5.7 8.2 6.6 FINAL Oziel angelo [facility], [address] [facility] [id number] 0 Phone: () - 02/08 CBC w/ auto diff WBC K/uL 3.0 8.9 4.7 FINAL Oziel angelo [facility] [place], [address] [facility] [id number] 0 Phone: () - 02/08 CBC w/ auto diff HGB g/dL 11.3 15.2 11.0 Low FINAL Oziel angelo [facility] [place], [address] [place] [id number] 0 Phone: () - 02/08 CBC w/ auto diff PLT K/uL 113.0 364.0 194 FINAL Oziel angelo [facility] [place], [address] [place] [id number] 0 Phone: () - 02/08 CBC w/ auto diff Dave # (ANC) K/uL 1.6 6.6 2.7 FINAL Oziel angelo [facility] [place], [address] [place] [id number] 0 Phone: () - 02/08 CBC w/ auto diff Dave % % 43.0 74.0 57.2 FINAL Oziel angelo [facility] [place], [address] [place] [id number] 0 Phone: () - 02/08 CBC w/ auto diff IG % % 0.0 0.5 0.4 FINAL Oziel Tilleyot a [facility] [place], [address] [place] [id number] 0 Phone: () - 02/08 CBC w/ auto diff IG # K/uL 0.0 0.03 0.02 FINAL Oziel Tilleyot a [facility] - [place], [address] [place] [id number] 0 Phone: () - 02/08 CBC w/ auto diff LY % % 14.0 41.0 31.6 FINAL Oziel Tilleyot a [facility] [place], [address] [place] [id number] 0 Phone: () - 02/08 CBC w/ auto diff MO % % 6.0 15.0 8.0 FINAL Oziel Tilleyot a [facility] - [place], [address] [place] [id number] 0 Phone: () - 02/08 CBC w/ auto diff EO % % 0.0 7.0 2.2 FINAL Oziel Tilleyot a [facility] - [place], [address] [place] [id number] 0 Phone: () - 02/08 CBC w/ auto diff BA % % 0.0 2.0 0.6 FINAL Oziel Tilleyot a [facility] - [place], [address] [place] [id number] 0 Phone: () - 02/08 CBC w/ auto diff LY # K/uL 0.4 3.6 1.5 FINAL Oziel Tilleyot a [facility] - [place], [address] [place] [id number] 0 Phone: () - 02/08 CBC w/ auto diff MO # K/uL 0.2 1.3 0.4 FINAL Oziel T[facility]ley[facility] a [facility] [place], [address] [place] [id number] 0 Phone: () - 02/08 CBC w/ auto diff EO # K/uL 0.0 0.6 0.1 FINAL Oziel Tilleyot a [facility] - [place], [address] [place] [id number] 0 Phone: () - 02/08 CBC w/ auto diff BA # K/uL 0.0 0.2 0.0 FINAL Oziel Tilleyot a [facility] - [place], [address] [place] [id number] 0 Phone: () - 02/08 CBC w/ auto diff NRBC % #/100W BC 0.0 0.2 0.0 FINAL Oziel Tilleyot a [facility] - [place], [address] [place] [id number] 0 Phone: () - 02/08 CBC w/ auto diff RBC M/uL 3.9 5.1 3.26 Low FINAL Oziel Tilleyot gi [facility] - [place], [address] [place] [id number] 0 Phone: () - 02/08 CBC w/ auto diff HCT % 35.0 48.0 32.9 Low FINAL Oziel angelo [facility] [place], [address] [place] [id number] 0 Phone: () - 02/08 CBC w/ auto diff MCV fL 80.0 104.0 100.9 FINAL Oziel Tilleyot gi [facility] - [place], [address] [place] [id number] 0 Phone: () - 02/08 CBC w/ auto diff MCH pg 26.0 35.0 33.7 FINAL Oziel Tilleyot gi [facility] - [place], [address] [place] [id number] 0 Phone: () - 02/08 CBC w/ auto diff MCHC g/dL 30.0 35.0 33.4 FINAL Oziel Tilleyot a [facility] - [place], [address] [place] [id number] 0 Phone: () - 02/08 CBC w/ auto diff MPV fL 9.5 13.4 9.0 Low FINAL [facility], [address] [facility] [address] [facility] [place] [id number] 0 Phone: () - 02/08 CBC w/ auto diff RDW % 11.4 16.1 13.70 FINAL Oziel angelo [facility] [place], [address] [facility] [address] [facility] [place] [id number] 0 Phone: () - 02/08 TSH w/ refle x to free T4 TSH uIU/ml 0.32 5.0 3.61 Test performed at [facility] on a [employer] Immun[employer] ay Analyzer that uses an immunoenz ymometric sandwich assay for analysis. Patient testing should not be performed using multiple methodolo gies due to analytica l variation seen between test methodolo gies. FINAL Oziel angelo [facility], [address] [facility] [address] [place] [address] [id number] 0 Phone: () - 02/08 CMP Album in g/dL 3.2 5.2 4.0 FINAL Oziel angelo [facility] [address] [facility] [address] [place] [address] [id number] 0 Phone: () - 02/08 CMP Alkal ine phosp hatas e U/L 46.0 116.0 83 FINAL Oziel angelo [place] [address] [address] [facility] [address] [place] [address] [id number] 0 Phone: () - 02/08 CMP ALT/S GPT U/L 7.0 40.0 <7 FINAL Oziel angelo [place] [address] [facility] [id number] 0 Phone: () - 02/08 CMP AST/S GOT U/L 13.0 40.0 23 FINAL Oziel angelo [facility] [address] [place] [address] [id number] 0 Phone: () - 02/08 CMP BUN mg/dL 9.0 23.0 17.0 FINAL Oziel angelo [place] [address] [facility] [id number] 0 Phone: () - 02/08 CMP Calci um mg/dL 8.7 10.4 8.8 FINAL Oziel angelo [facility] [address] [id number] 0 Phone: () - 02/08 CMP Chlor vipin mmol/L 96.0 114.0 109 FINAL Oziel angelo [place] [address] [id number] 0 Phone: () - 02/08 CMP CO2 mmol/L 20.0 31.0 25 The expected total allowable error for CO2 is 5.6%. We have seen up to 10% differenc e in values if reported at the end of the 96 hour stability window. Please consider the clinical significa nce of a 2.0-2.5 mmol/L lower reported CO2 value if reported at the end of the 96 hour stability window. FINAL Oziel angelo [place] [address] [id number] 0 Phone: () - 02/08 CMP Creat inine mg/dL 0.5 1.2 0.86 FINAL Oziel angelo [place] [address] [id number] 0 Phone: () - 02/08 CMP GFR estim ate ml/min /1.73m ^2 70.9 GFR is calculate d using the CKD-EPI equation. FINAL Oziel angelo [place] [address] [id number] 0 Phone: () - 02/08 CMP Gluco se mg/dL 73.0 126.0 84 FINAL Oziel angelo [facility] [address] [facility] [address] [id number] 0 Phone: () - 02/08 CMP Potas sium mmol/L 3.5 5.1 4.5 FINAL Oziel angelo [facility] [address] [facility] [address] [id number] 0 Phone: () - 02/08 CMP Sodiu m mmol/L 136.0 145.0 141 FINAL Oziel angelo [facility] [address] [facility] [id number] 0 Phone: () - 02/08 CMP Bilir ubin, total mg/dL 0.3 1.2 0.3 FINAL Oziel Tolbert a [facility], [address] [facility] [facility] [facility] [id number] 0 Phone: () - 02/08 CMP Total prote in g/dL 5.7 8.2 6.1 FINAL Oziel Tilley a [facility], [address] [facility] [facility] [address] [facility] [id number] 0 Phone: () - 06/06 Misc other lab See pin attacher d 08/09 CMP Album in g/dL 3.5 5.0 4.1 FINAL Oziel Box * [facility], [address] [facility] [id number] 08/09 CMP Alkal ine phosp hatas e U/L 36.0 125.0 66 FINAL Oziel Box * [facility] [address] [facility] [id number] 0 08/09 CMP ALT/S GPT U/L 0.0 34.0 6 FINAL Oziel Box * [facility], [address] [facility] [id number] 0 08/09 CMP AST/S GOT U/L 14.0 36.0 28 FINAL Oziel Box * [facility], [address] [facility] [id number] 0 08/09 CMP BUN mg/dL 7.0 17.0 17.0 FINAL Oziel Box * [facility], [address] [facility] [id number] 0 08/09 CMP Calci um mg/dL 8.4 10.2 9.4 FINAL Oziel Box * [facility], [address] [facility] [id number] 0 08/09 CMP Chlor vipin mmol/L 96.0 107.0 106 [facility], [address] [facility] [id number] 0 08/09 CMP CO2 mmol/L 22.0 30.0 24 The expected total allowable error for CO2 is 5.6%. We have seen up to 10% differenc e in values if reported at the end of the 96 hour stability window. Please consider the clinical significa nce of a 2.0-2.5 mmol/L lower reported CO2 value if reported at the end of the 96 hour stability window. [facility]AL [facility], [facility] [address] [id number] 0 08/09 CMP Creat inine mg/dL 0.66 1.25 0.70 FINAL Oziel Tilley gi [facility], [address] [facility] [id number] 0 08/09 CMP GFR estim ate ml/min /1.73m ^2 90.4 GFR is calculate d using the CKD-EPI equation. [facility], [address] [facility] [id number] 0 08/09 CMP Gluco se mg/dL 74.0 100.0 87 [facility], [address] [facility] [id number] 0 08/09 CMP Potas sium mmol/L 3.5 5.1 4.2 [facility], [address] [facility] [id number] 0 08/09 CMP Sodiu m mmol/L 137.0 145.0 139 FINAL Oziel Box * [facility] [place], [address] [facility] [id number] 0 08/09 CMP Bilir ubin, total mg/dL 0.2 1.3 0.3 FINAL Oziel Box * [facility] [place], [address] [facility] [id number] 0 08/09 CMP Total prote in g/dL 6.3 8.2 6.7 FINAL Oziel Box * [place] [facility] [place], [address] [facility] [id number] 0 08/09 CBC w/ auto diff WBC K/uL 3.0 8.9 3.5 FINAL Oziel Tilleyot a [facility] - [place], [address] [place] [id number] 0 Phone: () - 08/09 CBC w/ auto diff HGB g/dL 11.3 15.2 11.7 FINAL Oziel T[facility]ley[facility] a [facility] - [place], [address] [place] [id number] 0 Phone: () - 08/09 CBC w/ auto diff PLT K/uL 113.0 364.0 196 FINAL Oziel T[facility]ley[facility] a [facility] - [place], [address] [place] [id number] 0 Phone: () - 08/09 CBC w/ auto diff Dave # (ANC) K/uL 1.6 6.6 1.9 FINAL Oziel Tilley[facility] a [facility] [place], [address] [place] [id number] 0 Phone: () - 08/09 CBC w/ auto diff Dave % % 43.0 74.0 52.2 FINAL Oziel T[facility] - [place], [address] [place] [id number] 0 Phone: () - 08/09 CBC w/ auto diff IG % % 0.0 0.5 0.3 FINAL Oziel T[facility]ley[facility] a [facility] - [place], [address] [place] [id number] 0 Phone: () - 08/09 CBC w/ auto diff IG # K/uL 0.0 0.03 0.01 FINAL Oziel Tilley[facility] a [facility] - [place], [address] [place] [id number] 0 Phone: () - 08/09 CBC w/ auto diff LY % % 14.0 41.0 35.0 FINAL Oziel T[facility] a [facility] - [place], [address] [place] [id number] 0 Phone: () - 08/09 CBC w/ auto diff MO % % 6.0 15.0 9.6 FINAL Oziel [facility] - [place], [address] [place] [id number] 0 Phone: () - 08/09 CBC w/ auto diff EO % % 0.0 7.0 2.3 FINAL Oziel [facility] - [place], [address] [place] [id number] 0 Phone: () - 08/09 CBC w/ auto diff BA % % 0.0 2.0 0.6 FINAL Oziel [facility] - [place], [address] [place] [id number] 0 Phone: () - 08/09 CBC w/ auto diff LY # K/uL 0.4 3.6 1.2 FINAL Oziel [facility] - [place], [address] [place] [id number] 0 Phone: () - 08/09 CBC w/ auto diff MO # K/uL 0.2 1.3 0.3 FINAL Oziel [facility] - [place], [address] [place] [id number] 0 Phone: () - 08/09 CBC w/ auto diff EO # K/uL 0.0 0.6 0.1 FINAL Oziel angelo [facility] - [place], [address] [place] [id number] 0 Phone: () - 08/09 CBC w/ auto diff BA # K/uL 0.0 0.2 0.0 FINAL Oziel angelo [facility] - [place], [address] [place] [id number] 0 Phone: () - 08/09 CBC w/ auto diff NRBC % #/100W BC 0.0 0.2 0.0 FINAL Oziel angelo [facility] - [place], [address] [place] [id number] 0 Phone: () - 08/09 CBC w/ auto diff RBC M/uL 3.9 5.1 3.51 Low FINAL Oziel angelo [facility] - [place], [address] [place] [id number] 0 Phone: () - 08/09 CBC w/ auto diff HCT % 35.0 48.0 35.6 FINAL Oziel angelo [facility] - [place], [address] [place] [id number] 0 Phone: () - 08/09 CBC w/ auto diff MCV fL 80.0 104.0 101.4 FINAL Oziel angelo [facility] - [place], [address] [place] [id number] 0 Phone: () - 08/09 CBC w/ auto diff MCH pg 26.0 35.0 33.3 FINAL Oziel Tilley[facility] - [place], [address] [place] [id number] 0 Phone: () - 08/09 CBC w/ auto diff MCHC g/dL 30.0 35.0 32.9 FINAL Oziel [facility] - [place], [address] [place] [id number] 0 Phone: () - 08/09 CBC w/ auto diff MPV fL 9.5 13.4 9.3 Low FINAL Oziel Box [facility] [place], [address] [place] [id number] 0 Phone: () - 08/09 CBC w/ auto diff RDW % 11.4 16.1 13.20 FINAL Oziel Box [facility] [place], [address] [place] [id number] 0 Phone: () - 08/09 TSH w/ refle x to free T4 TSHR- v mIU/ml 0.47 4.68 0.74 FINAL Oziel Box * [facility] [place], [address] [facility] [place] [id number] 0 02/13 CBC w/ auto diff WBC K/uL 3.0 8.9 4.7 FINAL Oziel [facility] - [place], [address] [place] [id number] 0 02/13 CBC w/ auto diff HGB g/dL 11.3 15.2 10.4 Low FINAL Oziel [facility] - [place], [address] [place] [id number] 0 02/13 CBC w/ auto diff PLT K/uL 113.0 364.0 252 FINAL Oziel [facility] - [place], [address] [place] [id number] 0 02/13 CBC w/ auto diff Dave # (ANC) K/uL 1.6 6.6 2.4 FINAL Oziel [facility] - [place], [address] [place] [id number] 0 02/13 CBC w/ auto diff Dave % % 43.0 74.0 51.3 FINAL Oziel [facility] - [place], [address] [place] [id number] 0 02/13 CBC w/ auto diff IG % % 0.0 0.5 0.2 FINAL Oziel [facility] - [place], [address] [place] [id number] 0 02/13 CBC w/ auto diff IG # K/uL 0.0 0.03 0.01 FINAL Oziel [facility] - [place], [address] [place] [id number] 0 02/13 CBC w/ auto diff LY % % 14.0 41.0 33.5 FINAL Oziel [facility] - [place], [address] [place] [id number] 0 02/13 CBC w/ auto diff MO % % 6.0 15.0 8.8 FINAL Oziel [facility] - [place], [address] [place] [id number] 0 02/13 CBC w/ auto diff EO % % 0.0 7.0 5.6 FINAL Oziel [facility] - [place], [address] [place] [id number] 0 02/13 CBC w/ auto diff BA % % 0.0 2.0 0.6 FINAL [facility] [place], [address] [place] [id number] 0 02/13 CBC w/ auto diff LY # K/uL 0.4 3.6 1.6 FINAL [facility] [place], [address] [place] [id number] 0 02/13 CBC w/ auto diff MO # K/uL 0.2 1.3 0.4 FINAL [facility] [place], [address] [place] [id number] 0 02/13 CBC w/ auto diff EO # K/uL 0.0 0.6 0.3 FINAL [facility] [place], [address] [place] [id number] 0 02/13 CBC w/ auto diff BA # K/uL 0.0 0.2 0.0 FINAL [facility] [place], [address] [place] [id number] 0 02/13 CBC w/ auto diff NRBC % #/100W BC 0.0 0.2 0.0 FINAL [facility] [place], [address] [place] [id number] 0 02/13 CBC w/ auto diff RBC M/uL 3.9 5.1 3.24 Low FINAL [facility] [place], [address] [place] [id number] 0 02/13 CBC w/ auto diff HCT % 35.0 48.0 32.3 Low FINAL [facility] [place], [address] [place] [id number] 0 02/13 CBC w/ auto diff MCV fL 80.0 104.0 99.7 FINAL [facility] [place], [address] [place] [id number] 0 02/13 CBC w/ auto diff MCH pg 26.0 35.0 32.1 FINAL [facility] [place], [address] [place] [id number] 0 02/13 CBC w/ auto diff MCHC g/dL 30.0 35.0 32.2 FINAL [facility] [place], [address] [place] [id number] 0 02/13 CBC w/ auto diff MPV fL 9.5 13.4 9.1 Low FINAL [facility] [place], [address] [place] [id number] 0 02/13 CBC w/ auto diff RDW % 11.4 16.1 13.70 FINAL [facility] [place], [address] [place] [id number] 0 02/13 CMP Album in g/dL 3.5 5.0 3.5 FINAL Oziel Box * [place] [facility] [place], [address] [facility] [id number] 0 02/13 CMP Alkal ine phosp hatas e U/L 36.0 125.0 75 FINAL Oziel Box * [place] [facility] [place], [address] [facility] [id number] 0 02/13 CMP ALT/S GPT U/L 0.0 34.0 <4 Repeate d FINAL Oziel Box * [place] [facility] [place], [address] [facility] [id number] 0 02/13 CMP AST/S GOT U/L 14.0 36.0 17 FINAL Oziel Box * [place] [facility] [place], [address] [facility] [id number] 0 02/13 CMP BUN mg/dL 7.0 17.0 18.0 High FINAL [facility] Card [place] [facility], [address] [facility] [id number] 0 02/13 CMP Calci um mg/dL 8.4 10.2 9.2 FINAL [facility], [address] [facility] [id number] 0 02/13 CMP Chlor vipin mmol/L 96.0 107.0 109 High FINAL [facility] [place] [facility], [address] [facility] [id number] 0 02/13 CMP CO2 mmol/L 22.0 30.0 26 The expected total allowable error for CO2 is 5.6%. We have seen up to 10% differenc e in values if reported at the end of the 96 hour stability window. Please consider the clinical significa nce of a 2.0-2.5 mmol/L lower reported CO2 value if reported at the end of the 96 hour stability window. FINAL [facility], [address] [facility] [id number] 0 02/13 CMP Creat inine mg/dL 0.66 1.25 0.80 FINAL [facility] [place] [facility], [address] [facility] [id number] 0 02/13 CMP GFR estim ate ml/min /1.73m ^2 76.8 GFR is calculate d using the CKD-EPI equation. FINAL [facility] [place] [facility], [address] [facility] [id number] 0 02/13 CMP Gluco se mg/dL 74.0 100.0 84 FINAL [facility] [place] [facility], [address] [facility] [id number] 0 02/13 CMP Potas sium mmol/L 3.5 5.1 4.4 FINAL Oziel Box * [place] [facility] [place], [address] [facility] [id number] 0 02/13 CMP Sodiu m mmol/L 137.0 145.0 137 FINAL Oziel Box * [place] [facility] [place], [address] [facility] [id number] 0 02/13 CMP Bilir ubin, total mg/dL 0.2 1.3 0.5 FINAL Oziel Box * [place] [facility] [place], [address] [facility] [id number] 0 02/13 CMP Total prote in g/dL 6.3 8.2 6.2 Low FINAL Oziel Box * [place] [facility] [place], [address] [facility] [id number] 0 04/03 [facility] [place] See pin attacher d 08/14 CMP Album in g/dL 3.5 5.0 3.7 FINAL Oziel Box * [facility] , [address] [facility] [id number] 0 08/14 CMP Alkal ine phosp hatas e U/L 36.0 125.0 68 FINAL Oziel Box * [place] [facility] [place] [facility] , [address] [facility] [id number] 0 08/14 CMP ALT/S GPT U/L 0.0 34.0 10 FINAL Oziel Box * [place] [facility] [place] [facility] , [address] [facility] [id number] 0 08/14 CMP AST/S GOT U/L 14.0 36.0 28 FINAL Oziel Box * [facility] , [address] [facility] [id number] 0 08/14 CMP BUN mg/dL 7.0 17.0 25.0 High FINAL Oziel Box * [facility] , [address] [facility] [address] [id number] 0 08/14 CMP Calci um mg/dL 8.4 10.2 8.7 FINAL Oziel Box * [facility] , [address] [facility] [address] [id number] 0 08/14 CMP Chlor vipin mmol/L 96.0 107.0 109 High FINAL Oziel Box * [facility] , [facility] [address] [id number] 0 08/14 CMP CO2 mmol/L 22.0 30.0 24 The expected total allowable error for CO2 is 5.6%. We have seen up to 10% differenc e in values if reported at the end of the 96 hour stability window. Please consider the clinical significa nce of a 2.0-2.5 mmol/L lower reported CO2 value if reported at the end of the 96 hour stability window. FINAL Oziel Box * [facility] , [facility]0 [facility] [address] [id number] 0 08/14 CMP Creat inine mg/dL 0.66 1.25 0.90 FINAL Oziel Box * [facility] , [address] [facility] [address] [id number] 0 08/14 CMP GFR estim ate ml/min /1.73m ^2 66.5 GFR is calculate d using the CKD-EPI equation. FINAL Oziel Box * [facility] , [facility]0 [facility] [address] [id number] 0 08/14 CMP Gluco se mg/dL 74.0 100.0 95 FINAL Oziel Box * [facility] , [address] [facility] [address] [id number] 0 08/14 CMP Potas sium mmol/L 3.5 5.1 4.5 FINAL Oziel Box * [facility] , [address] [facility] [id number] 0 08/14 CMP Sodiu m mmol/L 137.0 145.0 137 FINAL Oziel Box * [facility] , [address] [facility] [id number] 0 08/14 CMP Bilir ubin, total mg/dL 0.2 1.3 0.8 FINAL Oziel Box * [facility] , [address] [facility] [id number] 0 08/14 CMP Total prote in g/dL 6.3 8.2 6.5 FINAL Oziel Box * [facility] , [address] [facility] [id number] 0 08/14 CBC w/ auto diff WBC K/uL 3.0 8.9 4.7 FINAL [facility]iel [facility] [place] [facility] , [address] [facility] [id number] 0 08/14 CBC w/ auto diff HGB g/dL 11.3 15.2 11.5 FINAL Oziel Box [place] [facility] [place] [facility] , [address] [facility] [id number] 0 08/14 CBC w/ auto diff PLT K/uL 113.0 364.0 211 FINAL Oziel Box [place] [facility] [place] [facility] , [address] [facility] [id number] 0 08/14 CBC w/ auto diff Dave # (ANC) K/uL 1.6 6.6 2.9 FINAL Oziel Box [place] [facility] [place] [facility] , [address] [place] [id number] 0 08/14 CBC w/ auto diff Dave % % 43.0 74.0 61.3 FINAL Oziel Box [place] [facility] [place] [facility] , [address] [place] [id number] 0 08/14 CBC w/ auto diff IG % % 0.0 0.5 0.2 FINAL Oziel Box [place] [facility] [place] [facility] , [address] [place] [id number] 0 08/14 CBC w/ auto diff IG # K/uL 0.0 0.03 0.01 FINAL Oziel Box [place] [facility] [place] [facility] , [address] [place] [id number] 0 08/14 CBC w/ auto diff LY % % 14.0 41.0 25.6 FINAL Oziel Box [place] [facility] [place] [facility] , [address] [place] [id number] 0 08/14 CBC w/ auto diff MO % % 6.0 15.0 8.7 FINAL Oziel Box [place] [facility] [place] [facility] , [address] [place] [id number] 0 08/14 CBC w/ auto diff EO % % 0.0 7.0 3.8 FINAL Oziel Box [place] [facility] [place] [facility] , [address] [place] [id number] 0 08/14 CBC w/ auto diff BA % % 0.0 2.0 0.4 FINAL Oziel Box [place] [facility] [place] [facility] , [address] [place] [id number] 0 08/14 CBC w/ auto diff LY # K/uL 0.4 3.6 1.2 FINAL Oziel Box [place] [facility] [place] [facility] , [address] [place] [id number] 0 08/14 CBC w/ auto diff MO # K/uL 0.2 1.3 0.4 FINAL Oziel Box [place] [facility] [place] [facility] , [address] [place] [id number] 0 08/14 CBC w/ auto diff EO # K/uL 0.0 0.6 0.2 FINAL Oziel Box [place] [facility] [place] [facility] , [address] [place] [id number] 0 08/14 CBC w/ auto diff BA # K/uL 0.0 0.2 0.0 FINAL Oziel Box [place] [facility] [place] [facility] , [address] [place] [id number] 0 08/14 CBC w/ auto diff NRBC % #/100W BC 0.0 0.2 0.0 FINAL Oziel Box [place] [facility] [place] [facility] , [address] [place] [id number] 0 08/14 CBC w/ auto diff RBC M/uL 3.9 5.1 3.60 Low FINAL Oziel Box [place] [facility] [place] [facility] , [address] [place] [id number] 0 08/14 CBC w/ auto diff HCT % 35.0 48.0 35.2 FINAL Oziel Box [place] [facility] [place] [facility] , [address] [place] [id number] 0 08/14 CBC w/ auto diff MCV fL 80.0 104.0 97.8 FINAL Oziel Box [place] [facility] [place] [facility] , [address] [place] [id number] 0 08/14 CBC w/ auto diff MCH pg 26.0 35.0 31.9 [facility] , [address] [facility] [address] [place] [id number] 0 08/14 CBC w/ auto diff MCHC g/dL 30.0 35.0 32.7 [facility] , [address] [facility] [address] [facility] [id number] 0 08/14 CBC w/ auto diff MPV fL 9.5 13.4 9.0 Low [facility] , [address] [facility] [address] [facility] [id number] 0 08/14 CBC w/ auto diff RDW % 11.4 16.1 13.60 [facility] , [address] [facility] [address] [facility] [id number] 0 Medications Date Name Route Dose Frequency Instructions Start Date End Date Status Vitamin [id number] Acid Oral 500 mcg-400 mcg daily active Docusate Sodium Oral QD active Cholecalcifer ol Oral QD active Calcium Carbonate Oral QD active Carbidopa-Lev odopa Oral 25 mg-100 mg PO 1.5 tablet TID active Gabapentin Oral QD active 09/25 levothyroxine sodium 0.075 MG Oral Tablet 2023 active 01/11 levothyroxine sodium 0.075 MG Oral Tablet 2022 active 05/21 levothyroxine sodium 0.075 MG Oral Tablet 2022 active 04/03 levothyroxine sodium 0.075 MG Oral Tablet 2022 active 01/16 Hydrocortison e IV intravenously 100.0 mg Re-initiate treatment only upon physician approval. 2021 active 01/16 diphenhydrami ne hydrochloride 0.5 MG/ML Injectable Solution intravenously 50.0 mg Re-initiate treatment only upon physician approval. 2021 active 01/16 1 ML epinephrine 1 MG/ML Injection intramuscular ly 0.3 mg once Re-initiate treatment only upon physician approval. 2021 active 01/16 famotidine 10 MG/ML Injectable Solution intravenously 20.0 mg Re-initiate treatment only upon physician approval. 2021 active 01/16 Methylprednis olone IV intravenously 125.0 mg Re-initiate treatment only upon physician approval. 2021 active 12/19 1 ML epinephrine 1 MG/ML Injection intramuscular ly 0.3 mg once Re-initiate treatment only upon physician approval. 2021 active 12/19 famotidine 10 MG/ML Injectable Solution intravenously 20.0 mg Re-initiate treatment only upon physician approval. 2021 active 12/19 diphenhydrami ne hydrochloride 0.5 MG/ML Injectable Solution intravenously 50.0 mg Re-initiate treatment only upon physician approval. 2021 active 12/19 Hydrocortison e IV intravenously 100.0 mg Re-initiate treatment only upon physician approval. 2021 active 12/19 Methylprednis olone IV intravenously 125.0 mg Re-initiate treatment only upon physician approval. 2021 active 11/21 famotidine 10 MG/ML Injectable Solution intravenously 20.0 mg Re-initiate treatment only upon physician approval. 2021 active 11/21 diphenhydrami ne hydrochloride 0.5 MG/ML Injectable Solution intravenously 50.0 mg Re-initiate treatment only upon physician approval. 2021 active 11/21 Hydrocortison e IV intravenously 100.0 mg Re-initiate treatment only upon physician approval. 2021 active 11/21 1 ML epinephrine 1 MG/ML Injection intramuscular ly 0.3 mg once Re-initiate treatment only upon physician approval. 2021 active 11/21 Methylprednis olone IV intravenously 125.0 mg Re-initiate treatment only upon physician approval. 2021 active 10/24 Methylprednis olone IV intravenously 125.0 mg Re-initiate treatment only upon physician approval. 2021 active 10/24 Hydrocortison e IV intravenously 100.0 mg Re-initiate treatment only upon physician approval. 2021 active 10/24 1 ML epinephrine 1 MG/ML Injection intramuscular ly 0.3 mg once Re-initiate treatment only upon physician approval. 2021 active 10/24 famotidine 10 MG/ML Injectable Solution intravenously 20.0 mg Re-initiate treatment only upon physician approval. 2021 active 10/24 diphenhydrami ne hydrochloride 0.5 MG/ML Injectable Solution intravenously 50.0 mg Re-initiate treatment only upon physician approval. 2021 active 09/26 1 ML epinephrine 1 MG/ML Injection intramuscular ly 0.3 mg once Re-initiate treatment only upon physician approval. 2021 active 09/26 Hydrocortison e IV intravenously 100.0 mg Re-initiate treatment only upon physician approval. 2021 active 09/26 famotidine 10 MG/ML Injectable Solution intravenously 20.0 mg Re-initiate treatment only upon physician approval. 2021 active 09/26 Methylprednis olone IV intravenously 125.0 mg Re-initiate treatment only upon physician approval. 2021 active 09/26 diphenhydrami ne hydrochloride 0.5 MG/ML Injectable Solution intravenously 50.0 mg Re-initiate treatment only upon physician approval. 2021 active 08/27 diphenhydrami ne hydrochloride 0.5 MG/ML Injectable Solution intravenously 50.0 mg Re-initiate treatment only upon physician approval. 2021 active 08/27 famotidine 10 MG/ML Injectable Solution intravenously 20.0 mg Re-initiate treatment only upon physician approval. 2021 active 08/27 Methylprednis olone IV intravenously 125.0 mg Re-initiate treatment only upon physician approval. 2021 active 08/27 Hydrocortison e IV intravenously 100.0 mg Re-initiate treatment only upon physician approval. 2021 active 08/27 1 ML epinephrine 1 MG/ML Injection intramuscular ly 0.3 mg once Re-initiate treatment only upon physician approval. 2021 active 07/30 Methylprednis olone IV intravenously 125.0 mg Re-initiate treatment only upon physician approval. 2021 active 07/30 famotidine 10 MG/ML Injectable Solution intravenously 20.0 mg Re-initiate treatment only upon physician approval. 2021 active 07/30 diphenhydrami ne hydrochloride 0.5 MG/ML Injectable Solution intravenously 50.0 mg Re-initiate treatment only upon physician approval. 2021 active 07/30 Hydrocortison e IV intravenously 100.0 mg Re-initiate treatment only upon physician approval. 2021 active 07/30 1 ML epinephrine 1 MG/ML Injection intramuscular ly 0.3 mg once Re-initiate treatment only upon physician approval. 2021 active 07/02 famotidine 10 MG/ML Injectable Solution intravenously 20.0 mg Re-initiate treatment only upon physician approval. 2021 active 07/02 Hydrocortison e IV intravenously 100.0 mg Re-initiate treatment only upon physician approval. 2021 active 07/02 1 ML epinephrine 1 MG/ML Injection intramuscular ly 0.3 mg once Re-initiate treatment only upon physician approval. 2021 active 07/02 diphenhydrami ne hydrochloride 0.5 MG/ML Injectable Solution intravenously 50.0 mg Re-initiate treatment only upon physician approval. 2021 active 07/02 Methylprednis olone IV intravenously 125.0 mg Re-initiate treatment only upon physician approval. 2021 active 05/28 Methylprednis olone IV intravenously 125.0 mg Re-initiate treatment only upon physician approval. 2021 active 05/28 1 ML epinephrine 1 MG/ML Injection intramuscular ly 0.3 mg once Re-initiate treatment only upon physician approval. 2021 active 05/28 Hydrocortison e IV intravenously 100.0 mg Re-initiate treatment only upon physician approval. 2021 active 05/28 famotidine 10 MG/ML Injectable Solution intravenously 20.0 mg Re-initiate treatment only upon physician approval. 2021 active 05/28 2.4 ML durvalumab 50 MG/ML Injection [Imfinzi] intravenously 1500.0 mg once Dilute with NS or D5W to a final concentration of 1 to 15 mg/mL. Administer through a 0.2 or 0.22 micron, low-protein binding filter. 2021 active 05/28 diphenhydrami ne hydrochloride 0.5 MG/ML Injectable Solution intravenously 50.0 mg Re-initiate treatment only upon physician approval. 2021 active 04/30 famotidine 10 MG/ML Injectable Solution intravenously 20.0 mg Re-initiate treatment only upon physician approval. 2021 active 04/30 diphenhydrami ne hydrochloride 0.5 MG/ML Injectable Solution intravenously 50.0 mg Re-initiate treatment only upon physician approval. 2021 active 04/30 Hydrocortison e IV intravenously 100.0 mg Re-initiate treatment only upon physician approval. 2021 active 04/30 Methylprednis olone IV intravenously 125.0 mg Re-initiate treatment only upon physician approval. 2021 active 04/30 1 ML epinephrine 1 MG/ML Injection intramuscular ly 0.3 mg once Re-initiate treatment only upon physician approval. 2021 active 03/17 diphenhydrami ne hydrochloride 0.5 MG/ML Injectable Solution intravenously 50.0 mg Re-initiate treatment only upon physician approval. 2021 active 03/17 1 ML epinephrine 1 MG/ML Injection intramuscular ly 0.3 mg once Re-initiate treatment only upon physician approval. 2021 active 03/17 famotidine 10 MG/ML Injectable Solution intravenously 20.0 mg Re-initiate treatment only upon physician approval. 2021 active 03/17 Hydrocortison e IV intravenously 100.0 mg Re-initiate treatment only upon physician approval. 2021 active 03/17 Methylprednis olone IV intravenously 125.0 mg Re-initiate treatment only upon physician approval. 2021 active 02/17 1 ML epinephrine 1 MG/ML Injection intramuscular ly 0.3 mg once Re-initiate treatment only upon physician approval. 2020 active 02/17 famotidine 10 MG/ML Injectable Solution intravenously 20.0 mg Re-initiate treatment only upon physician approval. 2020 active 02/17 Hydrocortison e IV intravenously 100.0 mg Re-initiate treatment only upon physician approval. 2020 active 02/17 diphenhydrami ne hydrochloride 0.5 MG/ML Injectable Solution intravenously 50.0 mg Re-initiate treatment only upon physician approval. 2020 active 02/17 Methylprednis olone IV intravenously 125.0 mg Re-initiate treatment only upon physician approval. 2020 active 02/06 1 ML epinephrine 1 MG/ML Injection intramuscular ly 0.3 mg once Re-initiate treatment only upon physician approval. 02/06 on hold 02/06 Famotidine IV intravenously 20.0 mg once 02/06 on hold 02/06 methylprednis olone 2000 MG Injection intravenously 125.0 mg Re-initiate treatment only upon physician approval. 02/06 on hold 02/06 Palonosetron IV intravenously 0.25 mg once 02/06 on hold 02/06 famotidine 10 MG/ML Injectable Solution intravenously 20.0 mg Re-initiate treatment only upon physician approval. 02/06 on hold 02/06 carboplatin 10 MG/ML Injectable Solution intravenously 190.0 mg once Dilute in D5W or NS.Carboplatin is an irritant. 02/06 on hold 02/06 diphenhydrami ne hydrochloride 0.5 MG/ML Injectable Solution intravenously 25.0 mg once 02/06 on hold 02/06 paclitaxel 6 MG/ML Injectable Solution intravenously 78.0 mg once Final product concentration must be 0.3-1.2 mg/mL.Administ er using [id number] ining equipment and through an in-line 0.22 micron filter.Paclita xel is a vascular irritant. 02/06 on hold 02/06 hydrocortison e 100 MG Injection intravenously 100.0 mg Re-initiate treatment only upon physician approval. 02/06 on hold 02/06 diphenhydrami ne hydrochloride 0.5 MG/ML Injectable Solution intravenously 50.0 mg Re-initiate treatment only upon physician approval. 02/06 on hold 01/30 1 ML epinephrine 1 MG/ML Injection intramuscular ly 0.3 mg once Re-initiate treatment only upon physician approval. 2020 active 01/30 diphenhydrami ne hydrochloride 0.5 MG/ML Injectable Solution intravenously 50.0 mg Re-initiate treatment only upon physician approval. 2020 active 01/30 famotidine 10 MG/ML Injectable Solution intravenously 20.0 mg Re-initiate treatment only upon physician approval. 2020 active 01/30 methylprednis olone 2000 MG Injection intravenously 125.0 mg Re-initiate treatment only upon physician approval. 2020 active 01/30 hydrocortison e 100 MG Injection intravenously 100.0 mg Re-initiate treatment only upon physician approval. 2020 active 01/23 hydrocortison e 100 MG Injection intravenously 100.0 mg Re-initiate treatment only upon physician approval. 2020 active 01/23 1 ML epinephrine 1 MG/ML Injection intramuscular ly 0.3 mg once Re-initiate treatment only upon physician approval. 2020 active 01/23 diphenhydrami ne hydrochloride 0.5 MG/ML Injectable Solution intravenously 50.0 mg Re-initiate treatment only upon physician approval. 2020 active 01/23 famotidine 10 MG/ML Injectable Solution intravenously 20.0 mg Re-initiate treatment only upon physician approval. 2020 active 01/23 methylprednis olone 2000 MG Injection intravenously 125.0 mg Re-initiate treatment only upon physician approval. 2020 active 01/16 hydrocortison e 100 MG Injection intravenously 100.0 mg Re-initiate treatment only upon physician approval. 2020 active 01/16 famotidine 10 MG/ML Injectable Solution intravenously 20.0 mg Re-initiate treatment only upon physician approval. 2020 active 01/16 diphenhydrami ne hydrochloride 0.5 MG/ML Injectable Solution intravenously 50.0 mg Re-initiate treatment only upon physician approval. 2020 active 01/16 methylprednis olone 2000 MG Injection intravenously 125.0 mg Re-initiate treatment only upon physician approval. 2020 active 01/16 1 ML epinephrine 1 MG/ML Injection intramuscular ly 0.3 mg once Re-initiate treatment only upon physician approval. 2020 active 01/09 1 ML epinephrine 1 MG/ML Injection intramuscular ly 0.3 mg once Re-initiate treatment only upon physician approval. 2020 active 01/09 famotidine 10 MG/ML Injectable Solution intravenously 20.0 mg Re-initiate treatment only upon physician approval. 2020 active 01/09 hydrocortison e 100 MG Injection intravenously 100.0 mg Re-initiate treatment only upon physician approval. 2020 active 01/09 methylprednis olone 2000 MG Injection intravenously 125.0 mg Re-initiate treatment only upon physician approval. 2020 active 01/09 diphenhydrami ne hydrochloride 0.5 MG/ML Injectable Solution intravenously 50.0 mg Re-initiate treatment only upon physician approval. 2020 active 01/02 famotidine 10 MG/ML Injectable Solution intravenously 20.0 mg Re-initiate treatment only upon physician approval. 2020 active 01/02 methylprednis olone 2000 MG Injection intravenously 125.0 mg Re-initiate treatment only upon physician approval. 2020 active 01/02 hydrocortison e 100 MG Injection intravenously 100.0 mg Re-initiate treatment only upon physician approval. 2020 active 01/02 diphenhydrami ne hydrochloride 0.5 MG/ML Injectable Solution intravenously 50.0 mg Re-initiate treatment only upon physician approval. 2020 active 01/02 1 ML epinephrine 1 MG/ML Injection intramuscular ly 0.3 mg once Re-initiate treatment only upon physician approval. 2020 active 12/24 lidocaine 25 MG/ML / prilocaine 25 MG/ML Topical Cream topically 1.0 application once 2020 active 12/24 1 ML epinephrine 1 MG/ML Injection intramuscular ly 0.3 mg once Re-initiate treatment only upon physician approval. 2020 active 12/24 hydrocortison e 100 MG Injection intravenously 100.0 mg Re-initiate treatment only upon physician approval. 2020 active 12/24 methylprednis olone 2000 MG Injection intravenously 125.0 mg Re-initiate treatment only upon physician approval. 2020 active 12/24 famotidine 10 MG/ML Injectable Solution intravenously 20.0 mg Re-initiate treatment only upon physician approval. 2020 active 12/24 diphenhydrami ne hydrochloride 0.5 MG/ML Injectable Solution intravenously 50.0 mg Re-initiate treatment only upon physician approval. 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 Hypothyroidism (disorder) Active Dysphagia Active Rash Active Rash Active Midback pain Active Vital Signs Date Type Value 09/26/2021 BMI 33.28 09/26/2021 Height 65.00 09/26/2021 Weight 200.00 09/26/2021 Pain Scale 0.00 09/26/2021 BSA 1.98 09/26/2021 Oxygen Saturation 98.00 09/26/2021 Respiratory Rate 16.00 09/26/2021 Heart Beat 62.00 09/26/2021 Body Temperature 96.70 09/26/2021 Intravascular Systolic 114 09/26/2021 Intravascular Diastolic 78 10/24/2021 BMI 33.28 10/24/2021 BSA 1.98 10/24/2021 Height 65.00 10/24/2021 Weight 200.00 10/24/2021 Pain Scale 0.00 10/24/2021 Intravascular Systolic 138 10/24/2021 Intravascular Diastolic 84 10/24/2021 Oxygen Saturation 97.00 10/24/2021 Respiratory Rate 20.00 10/24/2021 Heart Beat 65.00 10/24/2021 Body Temperature 96.90 11/21/2021 BSA 2.00 11/21/2021 BMI 34.28 11/21/2021 Height 65.00 11/21/2021 Weight 206.00 11/21/2021 Body Temperature 97.30 11/21/2021 Intravascular Systolic 158 11/21/2021 Intravascular Diastolic 88 11/21/2021 Oxygen Saturation 98.00 11/21/2021 Respiratory Rate 16.00 11/21/2021 Heart Beat 68.00 11/21/2021 Pain Scale 0.00 12/19/2021 BSA 2.02 12/19/2021 BMI 34.88 12/19/2021 Height 65.00 12/19/2021 Weight 209.60 12/19/2021 Pain Scale 0.00 12/19/2021 Intravascular Systolic 118 12/19/2021 Intravascular Diastolic 82 12/19/2021 Oxygen Saturation 97.00 12/19/2021 Respiratory Rate 16.00 12/19/2021 Body Temperature 96.70 12/19/2021 Heart Beat 64.00 01/16/2022 BMI 35.25 01/16/2022 Height 65.00 01/16/2022 Weight 211.80 01/16/2022 Pain Scale 0.00 01/16/2022 BSA 2.03 01/16/2022 Oxygen Saturation 95.00 01/16/2022 Respiratory Rate 16.00 01/16/2022 Heart Beat 63.00 01/16/2022 Body Temperature 97.70 01/16/2022 Intravascular Systolic 118 01/16/2022 Intravascular Diastolic 82 05/08/2022 BSA 2.03 05/08/2022 BMI 35.58 05/08/2022 Height 65.00 05/08/2022 Weight 213.80 05/08/2022 Pain Scale 5.00 05/08/2022 Intravascular Systolic 138 05/08/2022 Intravascular Diastolic 86 05/08/2022 Oxygen Saturation 98.00 05/08/2022 Respiratory Rate 16.00 05/08/2022 Body Temperature 100.20 05/08/2022 Heart Beat 68.00 08/13/2022 Body Temperature 96.80 08/13/2022 Heart Beat 67.00 08/13/2022 Respiratory Rate 16.00 08/13/2022 Oxygen Saturation 98.00 08/13/2022 Intravascular Systolic 118 08/13/2022 Intravascular Diastolic 76 08/13/2022 Pain Scale 0.00 08/13/2022 Weight 213.40 08/13/2022 Height 65.00 08/13/2022 BMI 35.51 08/13/2022 BSA 2.03 11/13/2022 Body Temperature 96.90 11/13/2022 Heart Beat 77.00 11/13/2022 Respiratory Rate 16.00 11/13/2022 Oxygen Saturation 98.00 11/13/2022 BSA 2.06 11/13/2022 Pain Scale 0.00 11/13/2022 Weight 220.80 11/13/2022 Height 65.00 11/13/2022 BMI 36.74 11/13/2022 Intravascular Systolic 126 11/13/2022 Intravascular Diastolic 72 02/12/2023 BSA 2.09 02/12/2023 BMI 37.81 02/12/2023 Height 65.00 02/12/2023 Weight 227.20 02/12/2023 Pain Scale 0.00 02/12/2023 Intravascular Systolic 158 02/12/2023 Intravascular Diastolic 68 02/12/2023 Oxygen Saturation 99.00 02/12/2023 Respiratory Rate 16.00 02/12/2023 Body Temperature 96.40 02/12/2023 Heart Beat 70.00 08/16/2023 Body Temperature 98.00 08/16/2023 Heart Beat 82.00 08/16/2023 BSA 1.98 08/16/2023 BMI 33.28 08/16/2023 Height 65.00 08/16/2023 Weight 200.00 08/16/2023 Pain Scale 5.00 08/16/2023 Intravascular Systolic 110 08/16/2023 Intravascular Diastolic 70 08/16/2023 Oxygen Saturation 99.00 08/16/2023 Respiratory Rate 16.00 02/18/2024 BMI 32.28 02/18/2024 Body Temperature 96.60 02/18/2024 Heart Beat 81.00 02/18/2024 Respiratory Rate 16.00 02/18/2024 BSA 1.95 02/18/2024 Intravascular Systolic 134 02/18/2024 Intravascular Diastolic 82 02/18/2024 Pain Scale 0.00 02/18/2024 Weight 194.00 02/18/2024 Height 65.00 02/18/2024 Oxygen Saturation 98.00
--- OUTSIDE RECORDS SUMMARY | 2024-08-27 13:43 | XMS_ITS | Referral Summary ---
Author Organization [facility] Address [address] [place] [id number] Care Team Providers Care Bar Examiner Name Role Phone Annie Worthington Primary Care Provider Feroz Arthur MD Unavailable [phone] Encounters Date Type Department Care Team Description 07/26/2024 2:15 PM CDT Office Visit [address] [place] [address] [phone] Feroz Arthur MD Parkinson's disease without dyskinesia or fluctuating manifestations (HCC) (Primary Dx); Restless legs syndrome; Abnormality of gait and mobility 07/11/2024 Order-Scan [address] [place] [address] [phone] Renetta Parsons APRN, SOLUTION ARCHITECT 07/07/2024 Order-Scan [address] [place] [phone] Renetta Parsons APRN, SOLUTION ARCHITECT 06/05/2024 3:30 PM CDT Office Visit [address] [place] [address] [phone] Renetta Parsons APRN, SOLUTION ARCHITECT Parkinson's disease without dyskinesia or fluctuating manifestations (HCC) (Primary Dx) from Last 3 Months Allergies Active Allergy Reactions Criticality Noted Date Comments Ciprofloxacin Rash Medium 12/15/2017 Nitrofurantoin Monohyd/M-Cryst Hives Medium 09/09 Penicillins Diarrhea,Hives Low 06/09/2006 Medications levothyroxine (SYNTHROID) 75 mcg oral tablet 07/30/2022 Act charles gabapentin (NEURONTIN) 300 mg oral capsule Take 2 capsules (600 mg) by mouth at bedtime 180 capsule 3 06/05/2024 Active carbidopa-levod opa (SINEMET) 25-100 mg oral tablet TAKE 1 tablet BY MOUTH AT 6 am, 10 am, 2 pm, and 6 pm. 370 tablet 3 06/21/2024 Active carbidopa-levod opa (SINEMET CR) 50-200 mg oral extended release tablet TAKE ONE TABLET BY MOUTH EVERY DAY AT BEDTIME. 90 tablet 3 06/21/2024 Active escitalopram oxalate (LEXAPRO) 10 mg oral tablet Take 1 tablet (10 mg) by mouth once daily. 90 tablet 3 07/17/2024 Active baclofen (LIORESAL) 10 mg oral tablet Take 1 tablet at night 90 tablet 3 07/26/2024 Active Active Problems Problem Noted Date Diagnosed Date Anemia 06/05/2024 Unspecified mental disorder due to known physiological condition 11/09/2023 Pain in thoracic spine 11/09/2023 Lower urinary tract infectious disease Dysphagia 11/09/2023 Drug-induced neutropenia 11/09/2023 Rash 11/09/2023 Dermatitis medicamentosa 11/09/2023 Counseling, unspecified 11/09/2023 Lichen planus 09/23/2023 Neck pain 09/23/2023 Hypothyroidism 09/29/2022 Hilar lymphadenopathy 09/29/2022 Lung mass 09/29/2022 Osteoarthritis of both hands 12/15/2017 Urge incontinence 06/09/2006 Resolved Problems Problem Noted Date Diagnosed Date Resolved Date Non-small cell lung cancer 09/23/2023 0 09/23/2023 Malignant neoplasm metastatic to brain 09/29/2022 11/30/2022 Social History Tobacco Use Types Packs/Day Years Used Date Smoking Tobacco: Former Cigarettes 1 40 Smokeless Tobacco: Never Tobacco Cessation:Counseling Given: Not Answered Alcohol Use Standard Drinks/Week Comments Never 0 (1 standard drink = 0.6 oz pur e alcohol) Comments Unknown Sex and Gender Information Value Date Recorded Sex Assigned at Not on file Legal Sex Female 9:14 AM CDT Gender Identity Not on file Sexual Orientation Not on file Last Filed Vital Signs Vital Sign Reading Time Taken Comments Blood Pressure - - Pulse - - Temperature - - Respiratory Rate - - Oxygen Saturation - - Inhaled Oxygen Concentration - - Weight 91.2 kg (201 lb) 09/29/2022 11:21 AM CDT Height 165.1 cm (5' 5) 09/29/2022 11:21 AM CDT Body Mass Index 33.45 09/29/2022 11:21 AM CDT Plan of Treatment Not on file Procedures Procedure Name Priority Date/Time Associated Diagnosis Comments SCANNED LAB Routine 07/07/2024 2:15 PM CDT SCANNED LAB Routine 07/07/2024 1:16 PM CDT from Last 3 Months Results * SCANNED LAB (07/07/2024 2:15 PM CDT) Only the most recent of2 resultswithin the time period is included. us Renetta Parsons APRN, SOLUTION ARCHITECT MICROBIOLOGY ORDERA BLE Final Result from Last 3 Months Insurance [employer] Care Teams Bar Examiner Relationship Specialty Start Date End Date Annie Worthington [address] [place] [address] PCP - General 09/03/22 Feroz Arthur MD [address] [facility] [address] [place] [address] Neurology 09/03/22
--- OUTSIDE RECORDS SUMMARY | 2024-08-27 13:43 | XMS_ITS | CCD ---
Author Name Interface, [id number] lity Address [address] [facility] [address] [address] Organization [facility] Address [address] 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 Name Role Phone Oziel Box Unavailable Care Plan Date Type Value 09/04/2024 APPOINTMENT OV 20 MIN 08/21/2024 APPOINTMENT OUTSIDE TEST 5 M IN 08/14/2024 APPOINTMENT PORT DRAW 15 MIN 08/14/2024 APPOINTMENT LAB 15 MIN 05/01/2024 APPOINTMENT OUTSIDE TEST 5 M IN 02/18/2024 APPOINTMENT OV 20 MIN 02/14/2024 APPOINTMENT PORT DRAW 15 MIN 02/14/2024 APPOINTMENT OUTSIDE TEST 5 M IN 10/09/2020 LABORDER PET/CT scan, sku ll base/mid thigh 11/04/2020 LABORDER MRI brain w/ & w /o contrast 11/06/2020 LABORDER Chest x-ray, PA and lateral 11/08/2020 LABORDER MRI brain w/ & w /o contrast 12/09/2020 LABORDER PET/CT scan, sku ll base/mid thigh 12/09/2020 LABORDER PET/CT scan, who le body 09/24/2021 LABORDER MRI brain w/ & w /o contrast 01/20/2024 LABORDER X-ray femur, rig ht 02/14/[address] chest/abdomen /pelvis w/ IV contrast 02/14/2024 LABORDER CMP 02/14/2024 LABORDER CBC w/ auto diff 02/14/2024 LABORDER MRI brain w/ & w /o contrast 03/23/2024 LABORDER CBC w/ auto diff 05/01/2024 LABORDER Port removal 07/26/[address] chest/abdomen /pelvis w/ IV contrast 08/14/2024 LABORDER CBC w/ auto diff 08/14/2024 LABORDER CMP 08/18/2024 LABORDER MRI brain w/ & w /o contrast Reason for Visit OUTSIDE TEST 5 MIN Encounters Date Name 08/14/2024 Non-small cell lung cancer (disorder) 09/04/2024 OV 20 MIN 08/21/2024 OUTSIDE TEST 5 MIN 08/14/2024 LAB 15 MIN Functional Status Date Name Score 10/24/2021 ECOG performance status - grade 0 0 09/26/2021 ECOG performance status - grade 0 0 07/02/2021 Karnofsky performance status 100 04/14/2021 ECOG performance status - grade 0 0 01/30/2021 ECOG performance status - grade 0 0 01/16/2021 ECOG performance status - grade 0 0 01/02/2021 ECOG performance status - grade 0 0 Immunizations Date Name Route Dose Instructions Refusal Reason Stat us Flu vaccine - Adult Patient declined/rejected Not Administered Diagnostic Results Date Type Test Units Lower Limit Upper Limit Result Flag Comments Status Ordered By Specimen Source Lab Address 04/03 [facility] other lab See veterinary practitioner d 08/14 CBC w/ auto diff Dave # (ANC) K/uL 1.6 6.6 2.9 [facility] , [address] [place] [phone] 08/14 CBC w/ auto diff IG % % 0.0 0.5 0.2 [facility] [place] [facility] , [address] [place] [phone] 08/14 CBC w/ auto diff MO # K/uL 0.2 1.3 0.4 [facility] [place] [facility] , [address] [place] [phone] 08/14 CBC w/ auto diff MCV fL 80.0 104.0 97.8 [facility] [place] [facility] , [address] [place] [id number] 0 08/14 CBC w/ auto diff IG # K/uL 0.0 0.03 0.01 FINAL Oziel Box [place] [facility] [place] [facility] , [address] [place] [id number] 0 08/14 CBC w/ auto diff MO % % 6.0 15.0 8.7 FINAL Oziel Box [place] [facility] [place] [facility] , [address] [place] [phone] 0 08/14 CBC w/ auto diff EO # K/uL 0.0 0.6 0.2 FINAL Oziel Box [place] [facility] [place] [facility] , [address] [place] [id number] 0 08/14 CBC w/ auto diff EO % % 0.0 7.0 3.8 FINAL Oziel Box [place] [facility] [place] [facility] , [address] [place] [id number] 0 08/14 CBC w/ auto diff RBC M/uL 3.9 5.1 3.60 Low FINAL Oziel Box [place] [facility] [place] [facility] , [address] [place] [id number] 0 08/14 CBC w/ auto diff MPV fL 9.5 13.4 9.0 Low FINAL Oziel Box [place] [facility] [place] [facility] , [address] [place] [id number] 0 08/14 CBC w/ auto diff WBC K/uL 3.0 8.9 4.7 FINAL Oziel Box [place] [facility] [place] [facility] , [address] [place] [id number] 0 08/14 CBC w/ auto diff PLT K/uL 113.0 364.0 211 FINAL Oziel Box [place] [facility] [place] [facility] , [address] [place] [id number] 0 08/14 CBC w/ auto diff BA % % 0.0 2.0 0.4 FINAL Oziel Box [place] [facility] [place] [facility] , [address] [place] [id number] 0 08/14 CBC w/ auto diff BA # K/uL 0.0 0.2 0.0 FINAL Oziel Box [place] [facility] [place] [facility] , [address] [place] [id number] 0 08/14 CBC w/ auto diff HGB g/dL 11.3 15.2 11.5 FINAL Oziel Box [place] [facility] [place] [facility] , [address] [place] [id number] 0 08/14 CBC w/ auto diff RDW % 11.4 16.1 13.60 FINAL Oziel Box [place] [facility] [place] [facility] , [address] [place] [id number] 0 08/14 CBC w/ auto diff LY % % 14.0 41.0 25.6 FINAL Oziel Box [place] [facility] [place] [facility] , [address] [place] [id number] 0 08/14 CBC w/ auto diff LY # K/uL 0.4 3.6 1.2 FINAL Oziel Box [place] [facility] [place] [facility] , [address] [place] [id number] 0 08/14 CBC w/ auto diff MCH pg 26.0 35.0 31.9 FINAL Oziel Box [place] [facility] [place] [facility] , [address] [place] [id number] 0 08/14 CBC w/ auto diff MCHC g/dL 30.0 35.0 32.7 FINAL Oziel Box [facility] , [address] [facility] [phone] 0 08/14 CBC w/ auto diff NRBC % #/100W BC 0.0 0.2 0.0 FINAL Oziel Box [facility] , [address] [facility] [id number] 08/14 CBC w/ auto diff HCT % 35.0 48.0 35.2 FINAL Oziel Box [facility] , [address] [facility] [id number] 08/14 CBC w/ auto diff Dave % % 43.0 74.0 61.3 FINAL Oziel Box [facility] , [address] [facility] [id number] 0 08/14 CMP Alkal ine phosp hatas e U/L 36.0 125.0 68 FINAL Oziel Box * [facility] , [address] [facility] [address] [facility] [address] [facility] [address] [facility] [address] [id number] 08/14 CMP ALT/S GPT U/L 0.0 34.0 10 FINAL Oziel Box * [facility] , [address] [facility] [address] [facility] [address] [id number] 08/14 CMP Calci um mg/dL 8.4 10.2 8.7 FINAL Oziel Box * [facility] , [address] [facility] [address] [facility] [address] [facility] [address] [facility] [address] [id number] 0 08/14 CMP GFR estim ate ml/min /1.73m ^2 66.5 GFR is calculate d using the CKD-EPI equation. FINAL Oziel Box * [facility] , [address] [facility] [address] [id number] 0 08/14 CMP CO2 mmol/L 22.0 30.0 [...] hour stability window. FINAL Oziel Box * [facility] , [facility] [facility] [address] [id number] 0 08/14 CMP Gluco se mg/dL 74.0 100.0 95 FINAL Oziel Box * [facility] , [facility] [facility] [address] [id number] 0 08/14 CMP Chlor vipin mmol/L 96.0 107.0 109 High FINAL Oziel Box * [facility] , [facility] [facility] [address] [id number] 08/14 CMP Total prote in g/dL 6.3 8.2 6.5 FINAL Oziel Box * [facility] , [facility] [facility] [address] [id number] 08/14 CMP BUN mg/dL 7.0 17.0 25.0 High FINAL Oziel Box * [facility] , [address] [facility] [address] [id number] 08/14 CMP Creat inine mg/dL 0.66 1.25 0.90 FINAL Oziel Box * [facility] , [facility] [facility] [address] [id number] 0 08/14 CMP AST/S GOT U/L 14.0 36.0 28 FINAL Oziel Box * [facility] , [facility] [facility] [address] [id number] 08/14 CMP Album in g/dL 3.5 5.0 3.7 FINAL Oziel Box * [facility] , [facility] [facility] [address] [id number] 08/14 CMP Bilir ubin, total mg/dL 0.2 1.3 0.8 FINAL Oziel Box * [facility] , [facility] [facility] [address] [id number] 0 08/14 CMP Sodiu m mmol/L 137.0 145.0 137 FINAL Oziel Box * [facility] , [facility] [facility] [address] [id number] 0 08/14 CMP Potas sium mmol/L 3.5 5.1 4.5 FINAL Oizel Box * [facility] , [facility] [address] [id number] Medications Date Name Route Dose Frequency Instructions Start Date End Date Status Vitamin E83-Yrodj Acid Oral 500 mcg-400 mcg daily active Sennosides Oral orally 1.0 tablet daily inactive Zinc Oral po 1.0 daily inactiv e Cephalexin Oral Star ting for 10 days for UTI inactive Gabapentin Oral QD a ctive Calcium Carbonate Oral QD active Clindamycin Oral BID inactive Multivitamins Oral Tablet daily inactive Prednisone Oral daily 40mg daily stopped Magnesium Oxide Oral daily stopped Probiotics Oral daily i nactive Ascorbic Acid Oral 1.0 daily inactive Carbidopa-Levodop a Oral 25 mg-100 mg PO 1.5 tablet TID active Cholecalciferol Oral QD active Docusate Sodium Oral QD active Omeprazole Oral Delayed Release Capsule po daily stopped Cholecalciferol Oral 50.0 hcristos;ly inactive Duloxetine Oral Delayed Release PO 1.0 capsule,d elayed release(D R/EC) daily inactive Multivitamins Oral Tablet inactive Nicotine Transdermal Patch 21 mg/24 hr inactive Magnesium Citrate Oral 800.0 mg daily inactive Turmeric (Curcumin) Oral 1000.0 inac tive Trazodone Oral 100.0 mg daily @HS inactive Omeprazole Oral Delayed Release Tablet po 1.0 daily 40mg. inactive Probiotics Oral i nactive Acetaminophen Oral capsule Q8H prn stopped Ibuprofen Oral po prn st opped Diphenhydramine Oral PRN inactive 2023 levothyroxine sodium 0.075 MG Oral Tablet 024 active 2013 Ibuprofen Oral Oral 800.0 mg 014 active Problems Diagnosis Status Date of Diagnosi [...] Rash Active Rash Active Midback pain Active Procedures Date Category Name Instructions Status 01/20/2024 Physician Order X-ray femur, right New pa in and weakness in her right leg. Ordered 02/14/2024 Physician Order MRI brain w/ & w /o contrast h/o brain metastasis due to lung cancer, compare to Brain MRI from 07/2023 Ordered 02/14/[address] chest/abdomen/pelvis w/ IV contrast oligometastatic lung cancer treated with chemoradiation, compare to PET from 07/[address] from 05/2023 Ordered 02/18/2024 Physician Order RTC MD Ordered 05/01/2024 Physician Order Port removal Ordered 07/26/[address] chest/abdomen/pelvis w/ IV contrast metastatic lung cancer surveillance currently GI Ordered 08/18/2024 Physician Order RTC MD Ordered 08/18/2024 Physician Order MRI brain w/ & w /o contrast metastatic lung cancer, [employer] surveillance Ordered Social History Date Name Value 02/18/2024 Smoking Status Former smoker 08/14/2024 Sex Female Vital Signs Date Type Value 02/18/2024 Height 65.00 02/18/2024 Weight 194.00 02/18/2024 Intravascular Systolic 134 02/18/2024 Intravascular Diastolic 82 02/18/2024 Respiratory Rate 16.00 02/18/2024 Heart Beat 81.00 02/18/2024 Body Temperature 96.60 02/18/2024 Pain Scale 0.00 02/18/2024 Oxygen Saturation 98.00 02/18/2024 BMI 32.28
--- OUTSIDE RECORDS SUMMARY | 2024-08-27 13:43 | XMS_ITS ---
Author Name Interface, [id number] lity Address [address] [place] [address] [address] [address] [facility] Address [address] [facility] [address] [address] Care Team Providers Care Glucose And Syrup Weigher Name Role Phone Oziel Box Unavailable Allergies and Adverse Reactions Medication/Group Name Reaction Severity Date amoxicillin 08/16/2023 Penicillins 08/16/2023 nitrofurantoin Hives 08/16/2023 ciprofloxacin Hives 08/16/2023 Plan Date Type Value 09/04/2024 APPOINTMENT OV 20 MIN 08/21/2024 APPOINTMENT OUTSIDE TEST 5 M IN 08/14/2024 APPOINTMENT LAB 15 MIN 08/14/2024 APPOINTMENT PORT DRAW 15 MIN 05/01/2024 APPOINTMENT OUTSIDE TEST 5 M IN 02/18/2024 APPOINTMENT OV 20 MIN 03/23/2024 LABORDER CBC w/ auto diff 05/01/2024 LABORDER Port removal 07/26/[address] chest/abdomen /pelvis w/ IV contrast 08/14/2024 LABORDER CMP 08/14/2024 LABORDER CBC w/ auto diff 08/18/2024 LABORDER MRI brain w/ & w /o contrast Reason for Visit OUTSIDE TEST 5 MIN Encounters Date Name 02/18/2024 Anemia 02/18/2024 Brain metastasis 02/18/2024 Drug-induced rash 02/18/2024 Hypothyroidism (diso rder) 02/18/2024 Non-small cell lung cancer (disorder) Immunizations Date Name Route Dose Instructions Refusal Reason Stat us Flu vaccine - Adult Patient declined/rejected Not Administered Diagnostic Results Date Type Test Units Lower Limit Upper Limit Result Flag Comments Status Ordered By Specimen Source Lab Address 04/03 Misc other lab See director of planning d 08/14 CBC w/ auto diff WBC K/uL 3.0 8.9 4.7 FINAL Oziel Box [place] [facility] [place] [facility] , [address] [place] [phone] 0 08/14 CBC w/ auto diff HGB g/dL 11.3 15.2 11.5 FINAL Oziel Box [place] [facility] [place] [facility] , [address] [place] [phone] 0 08/14 CBC w/ auto diff PLT K/uL 113.0 364.0 211 FINAL Oziel Box [place] [facility] [place] [facility] , [address] [place] [phone] 0 08/14 CBC w/ auto diff Dave # (ANC) K/uL 1.6 6.6 2.9 FINAL Oziel Box [place] [facility] [place] [facility] , [address] [place] [phone] 0 08/14 CBC w/ auto diff Dave % % 43.0 74.0 61.3 FINAL Oziel Box [place] [facility] [place] [facility] , [address] [place] [phone] 0 08/14 CBC w/ auto diff IG % % 0.0 0.5 0.2 FINAL Oziel Box [place] [facility] [place] [facility] , [address] [place] [phone] 0 08/14 CBC w/ auto diff IG # K/uL 0.0 0.03 0.01 FINAL Oziel Box [place] [facility] [place] [facility] , [address] [place] [id number] 0 08/14 CBC w/ auto diff LY % % 14.0 41.0 25.6 FINAL Oziel Box [place] [facility] [place] [facility] , [address] [place] [phone] 0 08/14 CBC w/ auto diff MO % % 6.0 15.0 8.7 FINAL Oziel Box [place] [facility] [place] [facility] , [address] [place] [id number] 0 08/14 CBC w/ auto diff EO % % 0.0 7.0 3.8 FINAL Oziel Box [place] [facility] [place] [facility] , [address] [place] [id number] 0 08/14 CBC w/ auto diff BA % % 0.0 2.0 0.4 FINAL Oziel Box [place] [facility] [place] [facility] , [address] [place] [id number] 0 08/14 CBC w/ auto diff LY # K/uL 0.4 3.6 1.2 FINAL Oziel Box [place] [facility] [place] [facility] , [address] [place] [id number] 0 08/14 CBC w/ auto diff MO # K/uL 0.2 1.3 0.4 FINAL Oziel Box [place] [facility] [place] [facility] , [address] [place] [id number] 0 08/14 CBC w/ auto diff EO # K/uL 0.0 0.6 0.2 FINAL Oziel Box [place] [facility] [place] [facility] , [address] [place] [id number] 0 08/14 CBC w/ auto diff BA # K/uL 0.0 0.2 0.0 FINAL Oziel Box [place] [facility] [place] [facility] , [address] [place] [id number] 0 08/14 CBC w/ auto diff NRBC % #/100W BC 0.0 0.2 0.0 FINAL Oziel Box [place] [facility] [place] [facility] , [address] [place] [phone] 0 08/14 CBC w/ auto diff RBC M/uL 3.9 5.1 3.60 Low FINAL Oziel Box [place] [facility] [place] [facility] , [address] [place] [phone] 0 08/14 CBC w/ auto diff HCT % 35.0 48.0 35.2 FINAL Oziel Box [place] [facility] [place] [facility] , [address] [place] [phone] 0 08/14 CBC w/ auto diff MCV fL 80.0 104.0 97.8 FINAL Oziel Box [place] [facility] [place] [facility] , [address] [place] [id number] 0 08/14 CBC w/ auto diff MCH pg 26.0 35.0 31.9 FINAL Oziel Box [place] [facility] [place] [facility] , [address] [place] [id number] 0 08/14 CBC w/ auto diff MCHC g/dL 30.0 35.0 32.7 FINAL Oziel Box [place] [facility] [place] [facility] , [address] [place] [phone] 0 08/14 CBC w/ auto diff MPV fL 9.5 13.4 9.0 Low FINAL Oziel Box [place] [facility] [place] [facility] , [address] [place] [id number] 0 08/14 CBC w/ auto diff RDW % 11.4 16.1 13.60 FINAL Oziel Box [place] [facility] [place] [facility] , [address] [place] [id number] 0 08/14 CMP Album in g/dL 3.5 5.0 3.7 FINAL Oziel Box * [facility] , [address] [facility] [id number] 0 08/14 CMP Alkal ine phosp hatas e U/L 36.0 125.0 68 FINAL Oziel Box * [facility] , [address] [facility] [id number] 0 08/14 CMP ALT/S GPT U/L 0.0 34.0 10 FINAL Oziel Box * [facility] , [address] [facility] [address] [id number] 0 08/14 CMP AST/S GOT U/L 14.0 36.0 28 FINAL Oziel Box * [facility] , [address] [id number] 0 08/14 CMP BUN mg/dL 7.0 17.0 25.0 High FINAL Oziel Box * [facility] , [address] [facility] [address] [facility] [id number] 0 08/14 CMP Calci um mg/dL 8.4 10.2 8.7 FINAL Oziel Box * [facility] , [address] [facility] [address] [id number] 0 08/14 CMP Chlor vipin mmol/L 96.0 107.0 109 High FINAL Oziel Box * [facility] , [address] [facility] [address] [facility] [id number] 0 08/14 CMP CO2 mmol/L 22.0 30.0 [...] hour stability window. FINAL Oziel Box * [facility] , [facility] [address] [id number] 0 08/14 CMP Creat inine mg/dL 0.66 1.25 0.90 FINAL Oziel Box * [facility] , [facility] [address] [id number] 0 08/14 CMP GFR estim ate ml/min /1.73m ^2 66.5 GFR is calculate d using the CKD-EPI equation. FINAL Oziel Box * [facility] , [facility] [address] [id number] 0 08/14 CMP Gluco se mg/dL 74.0 100.0 95 FINAL Oziel Box * [facility] , [facility] [address] [id number] 0 08/14 CMP Potas sium mmol/L 3.5 5.1 4.5 FINAL Oziel Box * [facility] , [facility] [address] [id number] 0 08/14 CMP Sodiu m mmol/L 137.0 145.0 137 FINAL Oziel Box * [facility] , [address] [facility] [address] [id number] 0 08/14 CMP Bilir ubin, total mg/dL 0.2 1.3 0.8 FINAL Oziel Box * [facility] , [facility] [address] [id number] 0 08/14 CMP Total prote in g/dL 6.3 8.2 6.5 FINAL Oziel Box * [facility] , [facility] [address] [phone] 0 Medications Date Name Route Dose Frequency Instructions Start Date End Date Status Vitamin J17-Iaqsq Acid Oral 500 mcg-400 mcg daily active [...] concentration must be 0.3-1.2 mg/mL.Administ er using Tkq-RJEE-kuaob ining equipment and through an in-line 0.22 [...] pain Active Vital Signs Date Type Value 02/18/2024 Body Temperature 96.60 02/18/2024 Heart Beat 81.00 02/18/2024 Respiratory Rate 16.00 02/18/2024 Oxygen Saturation 98.00 02/18/2024 BSA 1.95 02/18/2024 Pain Scale 0.00 02/18/2024 Weight 194.00 02/18/2024 Height 65.00 02/18/2024 BMI 32.28 02/18/2024 Intravascular Systolic 134 02/18/2024 Intravascular Diastolic 82 Notes Section * Med Onc Follow-up Note (Amended) Patient Name: MARISELA HANNAH Date Of : 1950 Today's Provider:?Oziel Box MD Date of Service:?02/18/2024 Attending Physician:?Oziel Box (Hematology/Oncology) Referring Provider: ? HEMATOLOGY/ MEDICAL ONCOLOGY FOLLOW UP VISIT Reason for Visit Surveillance visit for oligometastatic non-small cell lung cancer Assessment 1.?? Non-small cell lung cancer - Biopsy-proven hilar lymph node metastases and a solitary brain metastasis not causing any neurologic symptoms. -??Her solitary brain metastasis was treated with stereotactic radiation therapy, completed November 29, 2020. - NGS testing showed no targetable mutation.?? PD-L1 expression 20% -Started chemoradiation with weekly carboplatin/paclitaxel on December 23. Completed January 31, 2021.? -Started adjuvant durvalumab in early February 2021, completed January 2022. -CT scan from 01/2024 negative for recurrent disease - Brain MRI 01/2024 also negative - 3 years out from completing chemoradiation 2.?? Solitary brain metastasis???treated with stereotactic radiation therapy, completed November 29, 2020 -Brain MRI 01/2024 showed no recurrent disease 3. Tobacco abuse - Quit in 09/2020 4. Dysphagia - Started after completing radiation therapy - likely due to esophagitis/esophageal stricture caused by radiation - (09/11/21) seen by [facility]??and underwent??upper endoscopy with dilatation, much improvement with eating and drinking. ??She was also found to have gastritis, for which she was started on a PPI 5. Hypothyroidism - Could be immunotherapy induced - On Synthroid 6. Parkinson's disease - Now on Sinemet 7.?? Right lateral hip pain/right leg pain - Right femur X-ray negative - Tenderness over trochanteric bursa concerning for trochanteric bursitis 8.?? Anemia - Incidentally noted - Hgb 10.4, unclear etiology Plan 1.?? Continue with surveillance from lung cancer standpoint 2.?? Return to clinic in 6 months for follow-up 3.?? Brain MRI prior to return 4.?? CT CAP prior to return 5.?? Continue Synthroid for hypothyroidism.?? Defer to PCP for further management. 6.?? Continue to follow up with neurology for Parkinson's disease 7.?The patient's right hip pain and right leg pain are unrelated to??history of metastatic lung cancer.?? She does have??trochanteric bursitis based on exam. ??Would defer to??PCP for management. ??May benefit from??steroid injection 8.?? PORT removal 9.?? Will ask her PCP to recheck CBC w/ diff in 1 mo.?? If still anemic, would perform further workup at that time. Advanced Care Planning Not discussed at this visit. Pain Scale on Today's Visit Not recorded on today's visit Pain Plan on Today's Visit No pain plan indicated for today's visit Smoking Status Smoking Tobacco : Former smoker; Smokeless Tobacco : Never used smokeless tobacco; Vaping : Never vaped Depression Screening Tool Status Was not screened Reason: Patient Refused; Screening Date: 02/18/2024 History of Present Illness This is a very pleasant 73-year-old lady who was admitted to the hospital in late September 2020 for recurrent right-sided parotitis. Through imaging studies, she was incidentally found to have a 2.4 cm mass in the left upper lobe tethering the visceral pleura, as well as additional small pulmonary nodules up to 5 mm in the right lung. In addition, there was mild left hilar adenopathy. Her parotitis resolved with antibiotics, and she was referred to me for evaluation. We performed a PET/CT for further evaluation, which demonstrated the left upper lobe lung nodule was hypermetabolic, with SUV max of 13.2. 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 The station 7 and station 11 R lymph nodes were negative for malignancy. Biopsy of the primary tumor was attempted during the procedure, and this showed rare atypical cells, likely from poor sampling.?? Station 12 LN was not sampled. Met with Dr. Valadez, and decided to pursue surgery which would involve pneumonectomy Surgery was already scheduled, but unfortunately her brain MRI performed on November 05, 2020 showed a ring-enhancing lesion within the posterior aspect of the right superior frontal gyrus measuring 12mm. The patient was asymptomatic. Surgery was aborted.?Discussed case with neurosurgery. The brain metastasis was very close to the motor cortex, and therefore radiation therapy was preferred over surgery. She went on to receive right frontal brain SRT, 2700 cGy over 3 fractions, completed November 29, 2020. PET/CT 12/12/2020 shows stable findings compared to September 2020 The patient started chemoradiation with weekly carboplatin and paclitaxel on December 23, 2020.?Completed chemoradiation January 30, 2021 Started Durvalumab in early February 2021. Repeat CT CAP 04/2021 showed an excellent response in the primary tumor and resolution of hilar adenopathy. ??No new metastatic disease. ??Brain metastasis has responded very well to stereotactic radiation therapy. ??No new brain metastasis. Repeat CT CAP 07/2021 showed mild enlargement of the primary tumor as well as 2 new opacities aroundthe primary tumor--radiation pneumonitis vs disease progression. ??Brain MRI negative.?? Decided toobserve and obtain short interval repeat CT. CT CAP 08/2021 continues to show evolving radiographic changes in the left lung, which could still be evolving radiation changes, but cannot rule out recurrent disease. PET/CT 12/2021 showed no new findings.?? Brain MRI negative PET/CT 04/2022 negative.?? Brain MRI showed no new findings.?? Interval History The patient returns to clinic today for a follow-up visit.?? She has been experiencing??right lateral hip pain??as well as right leg pain. ??This has??made it more difficult for her to walk.?? She has also been experiencing??more balance issues.?? Energy level and appetite are relatively stable. Review of Systems Remaining 14 point comprehensive review of systems within normal limits. NCCN Distress Thermometer and Problem List were collected and documented in the patient chart.?? Remarkable symptoms and concerns were discussed with the patient.?? Any additional follow-up is indicated in the plan. Past Medical and Surgical History Unremarkable except for recurrent parotitis Current Medications Medication List Name Date Ibuprofen Oral 02/18/2024 Calcium Carbonate Oral 02/18/2024 Docusate Sodium Oral 02/18/2024 Vitamin P00-Bwgca Acid Oral 500 mcg-400 mcg 11/13/2022 Levothyroxine 09/26/2023 Gabapentin Oral 02/18/2024 Vitamin D3 (Cholecalciferol Oral) 2023 Lidocaine-Prilocaine Topical Cream 2.5 % -2.5 % 12/24/2020 Carbidopa-Levodopa Oral 25 mg-100 mg 03/2022 Allergies Penicillins, amoxicillin, ciprofloxacin and nitrofurantoin Family History Maternal grandparents with pancreatic cancer and colon cancer Social History Current smoker, trying to quit. Currently smoking half a pack a day Vital Signs Blood pressure: Not recorded on visit, Pulse: Not recorded on visit, Temperature: Not recorded on visit, Respirations: Not recorded on visit, O2 sat: Not recorded on visit, Pain Scale: Not recorded on visit, Height: Not recorded on visit, Weight: Not recorded on visit, BSA: Not recorded on visit, BMI: Not recorded on visit Covid-19 vaccine (Pfizer) (04/14/2021), Elsewhere; Covid-19 vaccine (Pfizer) (12/18/2020), Elsewhere; Covid-19 vaccine (Pfizer) (10/09/2020), Elsewhere; Flu vaccine - Adult (02/18/2024), Patient declined/rejected; Flu vaccine - Adult (05/08/2022), Patient declined/rejected; Flu vaccine - Adult (02/12/2023), Patient declined/rejected; Flu vaccine - Adult (12/18/2020), Elsewhere Performance Status ECOG or Karnofsky ECO Normal activity. Fully active, able to carry on all pre-disease performance without restriction. (Date: 10/24/2021) Karnofsky: 100% Normal, no complaints, no evidence of disease. (Date: 07/02/2021) Physical Exam General: Awake, alert, and oriented. ?? Skin: No rash noted Eyes: ?? Sclera anicteric. ?? Lymphatics: No palpable lymphadenopathy Lungs: Clear Heart: Regular rate and rhythm. ??No murmurs Abdomen: ??Soft, nontender, nondistended. ?? Extremities: ??Well perfused, trace edema MSK: Tenderness over right trochanteric bursa Genetics/Molecular/Biomarkers * Non-small cell lung cancer (disorder) ( Stage Date: Unknown, Stage IIIB (N2, M0) Histopathologic Type: Adenocarcinoma; ) Additional Labs, Imaging, and Other Studies Lab Results CBC Lab Results 02/14/2024 08/10/2023 06/07/2023 02/08/2023 11/04/1907/23/2022 CBC WBC x 10^3/uL 4.7 3.5 4.7 4.7 RBC x 10^6/uL 3.24 (L) 3.51 (L) 3.26 (L) 3.52 (L) NRBC % /100 wbc 0.0 0.0 0.0 0.0 HGB g/dL 10.4 (L) 11.7 11.0 (L) 11.6 HCT % 32.3 (L) 35.6 32.9 (L) 34.2 (L) MCV fL 99.7 101.4 100.9 97.2 MCH pg 32.1 33.3 33.7 33.0 MCHC g/dL 32.2 32.9 33.4 33.9 RDW % 13.70 13.20 13.70 14.40 PLT x 10^3/uL 252 196 194 248 MPV fL 9.1 (L) 9.3 (L) 9.0 (L) 8.7 (L) Dave % 51.3 52.2 57.2 60.9 LY % 33.5 35.0 31.6 26.8 MO % 8.8 9.6 8.0 8.5 EO % 5.6 2.3 2.2 3.0 IG % 0.2 0.3 0.4 0.4 Dave # (ANC) x 10^3/uL 2.4 1.9 2.7 2.9 BA % 0.6 0.6 0.6 0.4 MO # x 10^3/uL 0.4 0.3 0.4 0.4 EO # x 10^3/uL 0.3 0.1 0.1 0.1 BA # x 10^3/uL 0.0 0.0 0.0 0.0 IG # x 10^3/uL 0.01 0.01 0.02 0.02 LY # x 10^3/uL 1.6 1.2 1.5 1.3 Chemistries Lab Results 02/14/2024 08/10/2023 06/07/2023 02/08/2023 11/04/1907/23/2022 Chemistries Glucose mg/dL 84 87 84 105 BUN mg/dL 18.0 (H) 17.0 17.0 16.0 Creatinine mg/dL 0.80 0.70 0.86 0.88 Sodium mmol/L 137 139 141 139 Potassium mmol/L 4.4 4.2 4.5 4.4 Chloride mmol/L 109 (H) 106 109 105 CO2 mmol/L 26 24 25 24 Calcium mg/dL 9.2 9.4 8.8 9.1 Albumin g/dL 3.5 4.1 4.0 4.1 Total protein g/dL 6.2 (L) 6.7 6.1 6.6 Bilirubin, total mg/dL 0.5 0.3 0.3 0.6 Alkaline phosphatase U/L 75 66 83 59 AST/SGOT U/L 17 28 23 24 ALT/SGPT U/L <4 Repeated 6 <7 <7 GFR estimate mL/min/1.73m2 76.8 90.4 70.9 69.0 ? Surveys/Consents/Other Discussions Oziel Box MD CC: FAX Annie Santana MD Electronically signed by Oziel Box MD 02/21/2024 11:02 PERFUSIONIST
--- OUTSIDE RECORDS SUMMARY | 2024-08-27 13:43 | XMS_ITS | Clinical Summary ---
Author Organization [facility] Address [address] [place] [address] Care Team Providers Care Highway Inspector Name Role Phone Annie Worthington Primary Care Provider Feroz Arthur MD Unavailable [phone] Allergies Active Allergy Reactions Criticality Noted Date [...] Malignant neoplasm metastatic to brain 09/29/2022 11/30/2022 Encounters Date Type Department Care Team Description 07/26/2024 2:15 PM CDT Office Visit [address] [phone] Feroz Arthur MD Parkinson's disease without dyskinesia or fluctuating manifestations (HCC) (Primary Dx); Restless legs syndrome; Abnormality of gait and mobility 07/11/2024 Order-Scan [address] [phone] Renetta Parsons APRN, SPINDLE PLUMBER 07/07/2024 Order-Scan [address] [phone] Renetta Parsons APRN, SPINDLE PLUMBER 06/05/2024 3:30 PM CDT Office Visit [address] [place] [phone] Renetta Parsons APRN, [employer]LE [employer]UMBER Parkinson's disease without dyskinesia or fluctuating manifestations (HCC) (Primary Dx) from Last 3 Months Family History Medical History Relation Comments Alcohol Abuse Father Arthritis Mother Relation Status Comments Father Mother Social History Tobacco Use Types Packs/Day Years [...] 09/29/2022 11:21 AM CDT Plan of Treatment Health Maintenance Due Date Last Done Comments Colonoscopy 1950 Hepatitis C Screening 1950 Lipid Screening 1950 Medicare Wellness Visit 1950 Depression Assessment (PHQ-2) 1951 Yearly Review of HCD 1999 Zoster Vaccine (1 of 2) 1999 Osteoporosis Screening 10/05/2016 10/05/2014 Mammogram Screening 12/22/2019 12/21/2017, 12/15/2017, 11/26/2016, Additional history exists Thyroid-Stimulating Hormone (TSH) 02/20/2023 02/20/2022 COVID-19 Vaccine ( season) 2023 12/17/2020, 06/07/2020, 05/17/2020 RSV Vaccines (1 - 1-dose 75+ series) 02/20/2024 Influenza Vaccine (Season Ended) 2024 12/16/2020, 12/28/2019, 12/15/2017, Additional history exists Adult Tetanus Booster 10/15/2030 10/15/2020 , 08/24/2008, 03/15/1998 Pneumococcal 50+ Years Completed 12/15/2017, 2016 Meningococcal B Vaccine Aged Out No l onger eligible based on patient's age to complete this topic Procedures Procedure Name Priority Date/Time Associated Diagnosis Comments SCANNED LAB Routine 07/07/2024 2:15 PM CDT SCANNED LAB Routine 07/07/2024 1:16 PM CDT from Last 3 Months Results * SCANNED LAB (07/07/2024 2:15 PM CDT) Only the most recent of2 resultswithin the time period is included. us Renetta Parsons APRN, SPINDLE PLUMBER MICROBIOLOGY ORDERA BLE Final Result from Last 3 Months Insurance [facility] MEDICARE ADVANTAGE Care Teams Highway Inspector Relationship Specialty Start Date End Date Annie [address] [place] [address] PCP - General 09/03/22 Feroz Arthur MD [address] [place] [address] [address] [place] [address] Neurology 09/03/22
--- OUTSIDE RECORDS SUMMARY | 2024-08-27 13:44 | XMS_ITS ---
Author Name Interface, [id number] lity Address [address] [address] [facility] Oncology Address [address] [address] Care Team Providers Care Harness Builder Name Role Phone Diane Ramon Unavailable Allergies and Adverse Reactions Medication/Group Name [...] 20 MIN 05/13/2022 APPOINTMENT CHART CHECK 5 ND N 05/08/2022 APPOINTMENT OV 20 MIN 05/08/2022 [...] 15 MIN 02/20/2022 APPOINTMENT CHART CHECK 5 ND N 01/16/2022 APPOINTMENT PORT DRAW 15 MIN [...] 15 MIN 10/24/2021 APPOINTMENT OV 30 MIN 10/24/2021 LABORDER TSH w/ reflex to free T4 10/24/2021 LABORDER CBC w/ auto diff 10/24/2021 LABORDER CMP 11/21/2021 LABORDER CBC w/ auto diff 11/21/2021 LABORDER CMP 11/21/2021 LABORDER TSH w/ reflex to free T4 12/19/2021 LABORDER CMP 12/19/2021 LABORDER PET/CT scan, [...] scan, sku ll base/mid thigh 05/08/2022 LABORDER TSH w/ reflex to free T4 05/08/2022 LABORDER CMP 05/08/2022 LABORDER CBC w/ auto diff 07/23/2022 LABORDER CMP 07/23/2022 LABORDER MRI brain w/ & w /o contrast 07/23/2022 LABORDER CBC w/ auto diff 07/23/2022 LABORDER TSH w/ reflex to free T4 07/24/2022 LABORDER PET/CT scan, sku ll base/mid thigh 11/02/[address] chest/abdomen /pelvis w/ IV contrast 11/03/2022 LABORDER MRI brain w/ & w /o contrast 11/03/2022 LABORDER PET/CT scan, sku ll base/mid thigh 11/03/2022 LABORDER CMP 11/03/2022 LABORDER CBC w/ auto diff 02/08/[address] chest/abdomen /pelvis w/ IV contrast 02/08/2023 LABORDER CMP 02/08/2023 LABORDER TSH w/ reflex to free T4 02/08/2023 LABORDER MRI brain w/ & w /o contrast 02/08/2023 LABORDER CBC w/ auto diff 08/10/2023 LABORDER MRI brain w/ & w /o contrast 08/10/2023 LABORDER CBC w/ auto diff 08/10/2023 LABORDER TSH w/ reflex to free T4 08/10/2023 LABORDER CMP 08/14/[address] chest/abdomen /pelvis w/ IV contrast 08/27/2023 LABORDER PET/CT scan, sku ll base/mid thigh 01/20/2024 LABORDER X-ray femur, rig ht 02/14/2024 LABORDER MRI brain w/ & w /o contrast 02/14/2024 LABORDER CBC w/ auto diff 02/14/[address] chest/abdomen /pelvis w/ IV contrast 02/14/2024 LABORDER CMP 03/23/2024 LABORDER CBC w/ auto diff 05/01/2024 LABORDER Port removal 07/26/[address] chest/abdomen /pelvis w/ IV contrast 08/14/2024 LABORDER CBC w/ auto diff 08/14/2024 LABORDER CMP 08/18/2024 LABORDER MRI brain w/ & w /o contrast Reason for Visit OUTSIDE TEST 5 MIN Encounters Date Name 10/24/2021 Anemia 10/24/2021 Midback pain 10/24/2021 Non-small cell lung cancer (disorder) 10/24/2021 Rash 10/24/2021 Rash Immunizations Date Name Route Dose Instructions Refusal Reason Stat us Flu vaccine - Adult Patient declined/rejected Not Administered Flu vaccine - Adult Patient declined/rejected Not Administered Flu vaccine - Adult Patient declined/rejected Not Administered Diagnostic Results Date Type Test Units Lower Limit Upper Limit Result Flag Comments Status Ordered By Specimen Source Lab Address 10/24 CBC w/ auto diff WBC K/uL 3.0 8.9 5.5 FINAL [facility] [place], [address] [facility] [address] [facility] [phone] 0 Phone: () - 10/24 CBC w/ auto diff HGB g/dL 11.3 15.2 12.0 FINAL [facility]ia [facility] - [place], [address] [place] [address] d [address] [facility] [phone] 0 Phone: () - 10/24 CBC w/ auto diff PLT K/uL 113.0 364.0 211 FINAL [facility]ia [facility] - [place], [address] [facility] [address] [facility] [id number] 0 Phone: () - 10/24 CBC w/ auto diff Dave # (ANC) K/uL 1.6 6.6 3.4 FINAL [facility] - [place], [address] [facility] [address] [facility] [phone] 0 Phone: () - 10/24 CBC w/ auto diff Dave % % 43.0 74.0 62.4 FINAL [facility] - [place], [address] [place] [phone] 0 Phone: () - 10/24 CBC w/ auto diff IG % % 0.0 0.5 1.1 High FINAL [facility] - [place], [address] [facility] [address] [place] [phone] 0 Phone: () - 10/24 CBC w/ auto diff IG # K/uL 0.0 0.03 0.06 High FINAL [facility] - [place], [address] [facility] [address] [place] [phone] 0 Phone: () - 10/24 CBC w/ auto diff LY % % 14.0 41.0 22.2 FINAL [facility] - [place], [address] [facility] [address] [place] [id number] 0 Phone: () - 10/24 CBC w/ auto diff MO % % 6.0 15.0 10.1 FINAL [facility] - [place], [address] [facility] [address] [place] [id number] 0 Phone: () - 10/24 CBC w/ auto diff EO % % 0.0 7.0 3.8 FINAL [facility] - [place], [address] [facility] [address] [place] [phone] 0 Phone: () - 10/24 CBC w/ auto diff BA % % 0.0 2.0 0.4 FINAL [facility] - [place], [address] [facility] [address] [place] [phone] 0 Phone: () - 10/24 CBC w/ auto diff LY # K/uL 0.4 3.6 1.2 FINAL [facility] - [place], [address] [facility] [address] [place] [phone] 0 Phone: () - 10/24 CBC w/ auto diff MO # K/uL 0.2 1.3 0.6 FINAL [facility] - [place], [address] [place] [phone] 0 Phone: () - 10/24 CBC w/ auto diff EO # K/uL 0.0 0.6 0.2 FINAL [facility] - [place], [address] [place] [phone] 0 Phone: () - 10/24 CBC w/ auto diff BA # K/uL 0.0 0.2 0.0 FINAL [facility] - [place], [address] [place] [id number] 0 Phone: () - 10/24 CBC w/ auto diff NRBC % #/100W BC 0.0 0.2 0.0 FINAL [facility] - [place], [address] [place] [phone] 0 Phone: () - 10/24 CBC w/ auto diff RBC M/uL 3.9 5.1 3.62 Low FINAL [facility] - [place], [address] [place] [phone] 0 Phone: () - 10/24 CBC w/ auto diff HCT % 35.0 48.0 35.7 FINAL [facility] - [place], [address] [place] [phone] 0 Phone: () - 10/24 CBC w/ auto diff MCV fL 80.0 104.0 98.6 FINAL [facility] - [place], [address] [place] [phone] 0 Phone: () - 10/24 CBC w/ auto diff MCH pg 26.0 35.0 33.1 FINAL [facility] - [place], [address] [place] [phone] 0 Phone: () - 10/24 CBC w/ auto diff MCHC g/dL 30.0 35.0 33.6 FINAL Lia angelo [facility] - [place], [address] [place] [phone] 0 Phone: () - 10/24 CBC w/ auto diff MPV fL 9.5 13.4 9.1 Low FINAL Lia angelo [facility] - [place], [address] [place] [id number] 0 Phone: () - 10/24 CBC w/ auto diff RDW % 11.4 16.1 12.20 FINAL Lia angelo [facility] - [place], [address] [place] [phone] 0 Phone: () - 10/24 TSH w/ refle x to free T4 TSH uIU/ml 0.32 5.0 0.05 Low Test performed at [facility] on a Ign[employer] Immunoass ay Analyzer that uses an immunoenz ymometric sandwich assay for analysis. Patient testing should not be performed using multiple methodolo ginaun due to analytica l variation seen between test methodharley amador. FINAL Lia Delgado [facility], [address] [place] [phone] 0 Phone: () - 10/24 CMP Album in g/dL 3.2 5.2 4.3 FINAL Lia [facility] [address] [facility] [id number] 0 Phone: () - 10/24 CMP Alkal ine phosp hatas e U/L 46.0 116.0 59 FINAL [facility], [address] [place] [id number] 0 Phone: () - 10/24 CMP ALT/S GPT U/L 7.0 40.0 12 FINAL [facility] [address] [facility] [id number] 0 Phone: () - 10/24 CMP AST/S GOT U/L 13.0 40.0 22 FINAL [facility], [address] [place] [id number] 0 Phone: () - 10/24 CMP BUN mg/dL 9.0 23.0 16 FINAL [place] [address] [address] [facility] 100 [facility] [phone] 0 Phone: () - 10/24 CMP Calci um mg/dL 8.7 10.4 9.7 FINAL [place] [address] [address] [facility] 100 [facility] [id number] 0 Phone: () - 10/24 CMP Chlor vipin mmol/L 96.0 114.0 110 FINAL [place] [address] [address] [facility] 100 [facility] [phone] 0 Phone: () - 10/24 CMP CO2 [...] of the 96 hour stability window. FINAL [place] [address] [phone] 0 Phone: () - 10/24 CMP Creat inine mg/dL 0.5 1.2 0.83 FINAL [place] [address] [address] [facility] 100 [facility] [id number] 0 Phone: () - 10/24 CMP GFR estim ate ml/min /1.73m ^2 74.5 GFR is calculate d using the CKD-EPI equation. FINAL [place] [address] [address] [facility] [address] [facility] [id number] 0 Phone: () - 10/24 CMP Gluco se mg/dL 73.0 126.0 87 [facility] [address] [facility] 100 [facility] [id number] 0 Phone: () - 10/24 CMP Potas sium mmol/L 3.5 5.1 4.4 [place] [address] [address] [facility] [address] [facility] [id number] 0 Phone: () - 10/24 CMP Sodiu m mmol/L 136.0 145.0 145 FINAL Lia [facility], [address] [facility] 100 [facility] [phone] 0 Phone: () - 10/24 CMP Bilir ubin, total mg/dL 0.3 1.2 0.4 FINAL [facility] [address] [facility] [address] [facility] [id number] 0 Phone: () - 10/24 CMP Total prote in g/dL 5.7 8.2 6.4 FINAL [place] [address] [facility] 100 [facility] [phone] 0 Phone: () - 10/24 T4, free panel T4, free ng/dL 0.7 1.8 1.62 Test performed at [facility] on a Venustech 2000 Immunoass ay Analyzer that uses an immunoenz ymometric sandwich assay for analysis. Patient testing should not be performed using multiple methodolo gies due to analytica l variation seen between test methodolo gies. FINAL [facility] [address] [facility] [address] [facility] [id number] 0 Phone: () - 11/21 TSH w/ refle x to free T4 TSH uIU/ml 0.32 5.0 0.16 Low Test performed at [facility] on a [employer] 2000 Immunoass ay Analyzer that uses an immunoenz ymometric sandwich assay for analysis. Patient testing should not be performed using multiple methodolo gies due to analytica l variation seen between test methodolo gies. FINAL [facility], [address] [facility] [address] [facility] [phone] 0 Phone: () - 11/21 CBC w/ auto diff WBC K/uL 3.0 8.9 4.1 [facility] le, [address] [facility] [phone] 0 Phone: () - 11/21 CBC w/ auto diff HGB g/dL 11.3 15.2 11.8 FINAL [facility] - [place], [address] [place] [id number] 0 Phone: () - 11/21 CBC w/ auto diff PLT K/uL 113.0 364.0 223 FINAL [facility] - [place], [address] [place] [id number] 0 Phone: () - 11/21 CBC w/ auto diff Dave # (ANC) K/uL 1.6 6.6 2.3 FINAL [facility] - [place], [address] [place] [phone] 0 Phone: () - 11/21 CBC w/ auto diff Dave % % 43.0 74.0 56.3 FINAL [facility] - [place], [address] [place] [id number] 0 Phone: () - 11/21 CBC w/ auto diff IG % % 0.0 0.5 0.2 FINAL [facility] - [place], [address] [place] [id number] 0 Phone: () - 11/21 CBC w/ auto diff IG # K/uL 0.0 0.03 0.01 FINAL [facility] - [place], [address] [place] [id number] 0 Phone: () - 11/21 CBC w/ auto diff LY % % 14.0 41.0 29.0 FINAL [facility] - [place], [address] [place] [id number] 0 Phone: () - 11/21 CBC w/ auto diff MO % % 6.0 15.0 10.4 FINAL [facility] - [place], [address] [place] [phone] 0 Phone: () - 09/09 /2022 CBC w/ auto diff EO % % 0.0 7.0 3.9 FINAL [facility] [place], [address] [place] [id number] 0 Phone: () - 11/21 CBC w/ auto diff BA % % 0.0 2.0 0.2 FINAL [facility] - [place], [address] [place] [id number] 0 Phone: () - 11/21 CBC w/ auto diff LY # K/uL 0.4 3.6 1.2 FINAL [facility] - [place], [address] [place] [id number] 0 Phone: () - 11/21 CBC w/ auto diff MO # K/uL 0.2 1.3 0.4 FINAL [facility] - [place], [address] [place] [id number] 0 Phone: () - 11/21 CBC w/ auto diff EO # K/uL 0.0 0.6 0.2 FINAL [facility] - [place], [address] [place] [phone] 0 Phone: () - 11/21 CBC w/ auto diff BA # K/uL 0.0 0.2 0.0 FINAL [facility] - [place], [address] [place] [id number] 0 Phone: () - 11/21 CBC w/ auto diff NRBC % #/100W BC 0.0 0.2 0.0 FINAL [facility] - [place], [address] [place] [id number] 0 Phone: () - 11/21 CBC w/ auto diff RBC M/uL 3.9 5.1 3.69 Low FINAL [facility] - [place], [address] [place] [id number] 0 Phone: () - 11/21 CBC w/ auto diff HCT % 35.0 48.0 35.6 FINAL Lia angelo [facility] - [place], [address] [facility] [address] [place] [id number] 0 Phone: () - 11/21 CBC w/ auto diff MCV fL 80.0 104.0 96.5 FINAL Lia angelo [facility] - [place], [address] [facility] [address] [place] [id number] 0 Phone: () - 11/21 CBC w/ auto diff MCH pg 26.0 35.0 32.0 FINAL Lia angelo [facility] - [place], [address] [place] [address] [address] [place] [phone] 0 Phone: () - 11/21 CBC w/ auto diff MCHC g/dL 30.0 35.0 33.1 FINAL Lia angelo [facility] - [place], [address] [facility] [address] [facility] [place] [id number] 0 Phone: () - 11/21 CBC w/ auto diff MPV fL 9.5 13.4 9.0 Low FINAL Lia angelo [facility] - [place], [address] [facility] [address] [facility] [place] [phone] 0 Phone: () - 11/21 CBC w/ auto diff RDW % 11.4 16.1 12.40 FINAL Lia angelo [facility] - [place], [address] [facility] [address] [facility] [place] [phone] 0 Phone: () - 11/21 CMP Album in g/dL 3.2 5.2 4.1 FINAL Lia Tilley gi Oncology [facility], [address] [facility] [address] [place] [address] [place] [phone] 0 Phone: () - 11/21 CMP Alkal ine phosp hatas e U/L 46.0 116.0 52 FINAL [facility], [address] [place] [address] [place] [id number] 0 Phone: () - 11/21 CMP ALT/S GPT U/L 7.0 40.0 17 FINAL [place] [address] [id number] 0 Phone: () - 11/21 CMP AST/S GOT U/L 13.0 40.0 24 FINAL [facility] [address] [facility] [address] [phone] 0 Phone: () - 11/21 CMP BUN mg/dL 9.0 23.0 14 FINAL [place] [address] [facility] 100 [facility] [phone] 0 Phone: () - 11/21 CMP Calci um mg/dL 8.7 10.4 9.3 [place] [address] [address] [facility] [address] [phone] 0 Phone: () - 11/21 CMP Chlor vipin mmol/L 96.0 114.0 111 FINAL [place] [address] [address] [facility] [address] [id number] 0 Phone: () - 11/21 CMP CO2 [...] of the 96 hour stability window. FINAL [facility], [facility] [address] [facility] [address] [phone] 0 Phone: () - 11/21 CMP Creat inine mg/dL 0.5 1.2 0.79 FINAL [place] [address] [address] [facility] [address] [phone] 0 Phone: () - 11/21 CMP GFR estim ate ml/min /1.73m ^2 79.1 GFR is calculate d using the CKD-EPI equation. [place] [address] [address] [facility] [address] [phone] 0 Phone: () - 11/21 CMP Gluco se mg/dL 73.0 126.0 86 FINAL [facility], [address] [facility] 100 [facility] [id number] 0 Phone: () - 11/21 CMP Potas sium mmol/L 3.5 5.1 4.5 FINAL [facility] [address] [facility] 100 [facility] [id number] 0 Phone: () - 11/21 CMP Sodiu m mmol/L 136.0 145.0 144 FINAL [place] [address] [address] [facility] 100 [facility] [id number] 0 Phone: () - 11/21 CMP Bilir ubin, total mg/dL 0.3 1.2 0.3 FINAL [place] [address] [id number] 0 Phone: () - 11/21 CMP Total prote in g/dL 5.7 8.2 6.2 FINAL [place] [address] [id number] 0 Phone: () - 11/21 T4, free panel T4, free ng/dL 0.7 1.8 1.13 Test performed at [facility] on a [employer] 2000 Immunoass ay Analyzer that uses an immunoenz ymometric sandwich assay for analysis. Patient testing should not be performed using multiple methodharley amador due to analytica l variation seen between test kathi amador. FINAL [facility], [facility] N [facility] [address] [place] [address] [phone] 0 Phone: () - 12/19 CBC w/ auto diff WBC K/uL 3.0 8.9 4.9 FINAL [facility] [employer] [address] [facility] [phone] 0 Phone: () - 12/19 CBC w/ auto diff HGB g/dL 11.3 15.2 11.8 FINAL [facility] [employer] [facility] - [place], [address] [place] [phone] 0 Phone: () - 12/19 CBC w/ auto diff PLT K/uL 113.0 364.0 218 FINAL Oziel Tolbert [facility] - [place], [address] [place] [id number] 0 Phone: () - 12/19 CBC w/ auto diff Dave # (ANC) K/uL 1.6 6.6 2.7 FINAL Oz[facility] - [place], [address] [place] [id number] 0 Phone: () - 12/19 CBC w/ auto diff Dave % % 43.0 74.0 55.3 FINAL Oz[facility] - [place], [address] [place] [id number] 0 Phone: () - 12/19 CBC w/ auto diff IG % % 0.0 0.5 0.2 FINAL Oziel Tolbert [facility] - [place], [address] [place] [id number] 0 Phone: () - 12/19 CBC w/ auto diff IG # K/uL 0.0 0.03 0.01 FINAL Oziel Tolbert [facility] - [place], [address] [place] [phone] 0 Phone: () - 12/19 CBC w/ auto diff LY % % 14.0 41.0 30.6 FINAL Oziel Tol[facility] - [place], [address] [place] [phone] 0 Phone: () - 12/19 CBC w/ auto diff MO % % 6.0 15.0 9.3 FINAL Oziel Tolbert [facility] - [place], [address] [place] [id number] 0 Phone: () - 12/19 CBC w/ auto diff EO % % 0.0 7.0 4.0 FINAL [facility] - [place], [address] [place] [phone] 0 Phone: () - 12/19 CBC w/ auto diff BA % % 0.0 2.0 0.6 FINAL [facility] - [place], [address] [place] [id number] 0 Phone: () - 12/19 CBC w/ auto diff LY # K/uL 0.4 3.6 1.5 FINAL [facility] - [place], [address] [place] [id number] 0 Phone: () - 12/19 CBC w/ auto diff MO # K/uL 0.2 1.3 0.5 FINAL [facility] - [place], [address] [place] [id number] 0 Phone: () - 12/19 CBC w/ auto diff EO # K/uL 0.0 0.6 0.2 FINAL Oziel Tolbert [facility] - [place], [address] [place] [id number] 0 Phone: () - 12/19 CBC w/ auto diff BA # K/uL 0.0 0.2 0.0 FINAL Oziel angelo [facility] - [place], [address] [place] [phone] 0 Phone: () - 12/19 CBC w/ auto diff NRBC % #/100W BC 0.0 0.2 0.0 FINAL Oziel angelo [facility] - [place], [address] [place] [phone] 0 Phone: () - 12/19 CBC w/ auto diff RBC M/uL 3.9 5.1 3.68 Low FINAL Oziel angelo [facility] - [place], [address] [place] [id number] 0 Phone: () - 12/19 CBC w/ auto diff HCT % 35.0 48.0 35.3 FINAL Oziel angelo [facility] - [place], [address] [place] [id number] 0 Phone: () - 12/19 CBC w/ auto diff MCV fL 80.0 104.0 95.9 FINAL Oziel angelo [facility] - [place], [address] [place] [id number] 0 Phone: () - 12/19 CBC w/ auto diff MCH pg 26.0 35.0 32.1 FINAL Oziel angelo [facility] - [place], [address] [place] [phone] 0 Phone: () - 12/19 CBC w/ auto diff MCHC g/dL 30.0 35.0 33.4 FINAL Oziel angelo [facility] - [place], [address] [place] [id number] 0 Phone: () - 12/19 CBC w/ auto diff MPV fL 9.5 13.4 9.1 Low FINAL Oziel angel[facility] - [place], [address] [place] [id number] 0 Phone: () - 12/19 CBC w/ auto diff RDW % 11.4 16.1 13.30 FINAL Oziel angelo [facility] - [place], [address] [place] [id number] 0 Phone: () - 12/19 CMP Album in g/dL 3.2 5.2 4.0 FINAL Oziel angelo [facility] - [place], [address] [place] [id number] 0 Phone: () - 12/19 CMP Alkal ine phosp hatas e U/L 46.0 116.0 58 FINAL Oziel angel[facility] - [place], [address] [place] [id number] 0 Phone: () - 12/19 CMP ALT/S GPT U/L 7.0 40.0 13 FINAL Oziel angelo Oncology [facility], [address] [facility] [phone] 0 Phone: () - 12/19 CMP AST/S GOT U/L 13.0 40.0 24 FINAL Oziel angelo [facility], [address] [facility] 100 [facility] [phone] 0 Phone: () - 12/19 CMP BUN mg/dL 9.0 23.0 18 FINAL Oziel angelo [place] [address] [facility] 100 [facility] [phone] 0 Phone: () - 12/19 CMP Calci um mg/dL 8.7 10.4 9.7 FINAL Oziel angelo [place] [address] [id number] 0 Phone: () - 12/19 CMP Chlor vipin mmol/L 96.0 114.0 111 FINAL Oziel angelo [place] [address] [id number] 0 Phone: () - 12/19 CMP CO2 [...] 96 hour stability window. FINAL Oziel angelo [facility], [facility] [address] [phone] 0 Phone: () - 12/19 CMP Creat inine mg/dL 0.5 1.2 0.82 FINAL Oziel angelo [place] [address] [phone] 0 Phone: () - 12/19 CMP GFR estim ate ml/min /1.73m ^2 75.6 GFR is calculate d using the CKD-EPI equation. FINAL Oziel angelo [place] [address] [phone] 0 Phone: () - 12/19 CMP Gluco se mg/dL 73.0 126.0 81 FINAL Oziel angelo [facility] [address] [facility] 100 [facility] [phone] 0 Phone: () - 12/19 CMP Potas sium mmol/L 3.5 5.1 4.4 FINAL Oziel angelo [facility] [address] [facility] 100 [facility] [phone] 0 Phone: () - 12/19 CMP Sodiu m mmol/L 136.0 145.0 144 FINAL Oziel angelo [facility] [address] [facility] 100 [facility] [phone] 0 Phone: () - 12/19 CMP Bilir ubin, total mg/dL 0.3 1.2 0.4 FINAL Oziel angelo [place] [address] [phone] 0 Phone: () - 12/19 CMP Total prote in g/dL 5.7 8.2 6.3 FINAL Oziel angelo [place] [address] [address] [facility] [address] [id number] 0 Phone: () - 12/19 TSH w/ refle x to free T4 TSH uIU/ml 0.32 5.0 2.75 Test performed at [facility] on a Ignyta Immunoass ay Analyzer that uses an immunoenz ymometric sandwich assay for analysis. Patient testing should not be performed using multiple methodolo ginaun due to analytica l variation seen between test methodharley amador. FINAL Oziel angelo [place] [address] [id number] 0 Phone: () - 01/12 [facility] other lab See pin attacher d 01/16 CMP Album in g/dL 3.2 5.2 4.3 FINAL Oziel angel[place] [address] [address] [facility] [address] [id number] 0 Phone: () - 01/16 CMP Alkal ine phosp hatas e U/L 46.0 116.0 64 FINAL Oziel angelo [facility] [address] [facility] [address] [place] [address] [id number] 0 Phone: () - 01/16 CMP ALT/S GPT U/L 7.0 40.0 12 FINAL Oziel angelo [facility], [address] [facility] [address] [id number] 0 Phone: () - 01/16 CMP AST/S GOT U/L 13.0 40.0 23 FINAL Oziel angelo [facility] [address] [facility] [address] [id number] 0 Phone: () - 01/16 CMP BUN mg/dL 9.0 23.0 17 FINAL Oziel angelo [place] [address] [id number] 0 Phone: () - 01/16 CMP Calci um mg/dL 8.7 10.4 9.4 FINAL Oziel angelo [place] [address] [id number] 0 Phone: () - 01/16 CMP Chlor vipin mmol/L 96.0 114.0 108 FINAL Oziel angelo [place] [address] [id number] 0 Phone: () - 01/16 CMP CO2 [...] 96 hour stability window. FINAL Oziel angelo [place] [address] [id number] 0 Phone: () - 01/16 CMP Creat inine mg/dL 0.5 1.2 1.07 FINAL Oziel angel[place] [address] [address] [facility] [address] [id number] 0 Phone: () - 01/16 CMP GFR estim ate ml/min /1.73m ^2 54.9 Low GFR is calculate d using the CKD-EPI equation. FINAL Oziel angelo [facility], [facility] [address] [id number] 0 Phone: () - 01/16 CMP Gluco se mg/dL 73.0 126.0 84 FINAL Oziel angelo [facility], [address] [facility] [id number] 0 Phone: () - 01/16 CMP Potas sium mmol/L 3.5 5.1 4.4 FINAL Oziel angelo [facility], [address] [facility] [id number] 0 Phone: () - 01/16 CMP Sodiu m mmol/L 136.0 145.0 141 FINAL Oziel angelo [facility] [address] [facility] [id number] 0 Phone: () - 01/16 CMP Bilir ubin, total mg/dL 0.3 1.2 0.4 FINAL Oziel angelo [facility] [address] [facility] [address] [facility] [id number] 0 Phone: () - 01/16 CMP Total prote in g/dL 5.7 8.2 6.6 FINAL Oziel angelo [facility] [address] [facility] [address] [facility] [id number] 0 Phone: () - 01/16 TSH w/ refle x to free T4 TSH uIU/ml 0.32 5.0 14.74 High Provider Alert. Notified Vicki by Lynne Flannery on 01/19/2022 at 2:55 PM.Test performed at [facility] on a Venustech 2000 Immunoass ay Analyzer that uses an immunoenz ymometric sandwich assay for analysis. Patient testing should not be performed using multiple kathi amador due to analytica l variation seen between test kathi amador. FINAL Oziel angelo [facility], [address] [facility] [address] [facility] [id number] 0 Phone: () - 01/16 CBC w/ auto diff WBC K/uL 3.0 8.9 4.4 FINAL Oziel angelo [facility] [place], [address] [facility] [id number] 0 Phone: () - 01/16 CBC w/ auto diff HGB g/dL 11.3 15.2 11.9 FINAL Oziel angelo [facility] [place], [address] [place] [id number] 0 Phone: () - 01/16 CBC w/ auto diff PLT K/uL 113.0 364.0 231 FINAL Oziel T[facility]ley[facility] a [facility] [place], [address] [place] [id number] 0 Phone: () - 01/16 CBC w/ auto diff Dave # (ANC) K/uL 1.6 6.6 2.4 FINAL Oziel Tilley[facility] a [facility] [place], [address] [place] [id number] 0 Phone: () - 01/16 CBC w/ auto diff Dave % % 43.0 74.0 54.7 FINAL Oziel [facility] [place], [address] [place] [id number] 0 Phone: () - 01/16 CBC w/ auto diff IG % % 0.0 0.5 0.2 FINAL Oziel [facility] - [place], [address] [place] [id number] 0 Phone: () - 01/16 CBC w/ auto diff IG # K/uL 0.0 0.03 0.01 FINAL Oziel [facility] [place], [address] [place] [id number] 0 Phone: () - 01/16 CBC w/ auto diff LY % % 14.0 41.0 31.8 FINAL Oziel [facility] - [place], [address] [place] [id number] 0 Phone: () - 01/16 CBC w/ auto diff MO % % 6.0 15.0 8.9 FINAL Oziel [facility] [place], [address] [place] [id number] 0 Phone: () - 01/16 CBC w/ auto diff EO % % 0.0 7.0 3.9 FINAL Oziel [facility] - [place], [address] [place] [id number] 0 Phone: () - 01/16 CBC w/ auto diff BA % % 0.0 2.0 0.5 FINAL Oziel [facility] - [place], [address] [place] [id number] 0 Phone: () - 01/16 CBC w/ auto diff LY # K/uL 0.4 3.6 1.4 FINAL Oziel [facility]ley[facility] - [place], [address] [place] [id number] 0 Phone: () - 01/16 CBC w/ auto diff MO # K/uL 0.2 1.3 0.4 FINAL Oziel T[facility]ley[facility] a [facility] - [place], [address] [place] [id number] 0 Phone: () - 01/16 CBC w/ auto diff EO # K/uL 0.0 0.6 0.2 FINAL Oziel angelo [facility] - [place], [address] [place] [id number] 0 Phone: () - 01/16 CBC w/ auto diff BA # K/uL 0.0 0.2 0.0 FINAL Oziel Tilleyot gi [facility] - [place], [address] [place] [id number] 0 Phone: () - 01/16 CBC w/ auto diff NRBC % #/100W BC 0.0 0.2 0.0 FINAL Oziel Tilley[facility] a [facility] - [place], [address] [place] [id number] 0 Phone: () - 01/16 CBC w/ auto diff RBC M/uL 3.9 5.1 3.69 Low FINAL Oziel angelo [facility] [place], [address] [place] [id number] 0 Phone: () - 01/16 CBC w/ auto diff HCT % 35.0 48.0 35.0 FINAL [facility]iel [facility] [place] [facility] [place], [address] [place] [id number] 0 Phone: () - 01/16 CBC w/ auto diff MCV fL 80.0 104.0 94.9 FINAL Oziel angelo [facility] [place], [address] [place] [id number] 0 Phone: () - 01/16 CBC w/ auto diff MCH pg 26.0 35.0 32.2 FINAL Oziel angelo [facility] [place], [address] [place] [id number] 0 Phone: () - 01/16 CBC w/ auto diff MCHC g/dL 30.0 35.0 34.0 FINAL Oziel angelo [facility] [place], [address] [place] [id number] 0 Phone: () - 01/16 CBC w/ auto diff MPV fL 9.5 13.4 8.8 Low FINAL Oziel angelo [facility] [place], [address] [place] [id number] 0 Phone: () - 01/16 CBC w/ auto diff RDW % 11.4 16.1 13.90 FINAL Oziel angelo [facility] [place], [address] [place] [id number] 0 Phone: () - 01/16 T4, free panel T4, free ng/dL 0.7 1.8 0.75 Test performed at [facility] on a Ignyta Immunoass ay Analyzer that uses an immunoenz ymometric sandwich assay for analysis. Patient testing should not be performed using multiple methodharley amador due to analytica l variation seen between test kathi amador. FINAL Oziel angelo [facility] [place], [address] [place] [id number] 0 Phone: () - 02/20 TSH w/ refle x to free T4 TSH uIU/ml 0.32 5.0 Sent to Refer ce Lab. Hard copy results availab le only. Test performed at [facility] on a Venustech 2000 Immunoass ay Analyzer that uses an immunoenz ymometric sandwich assay for analysis. Patient testing should not be performed using multiple kathi amador due to analytica l variation seen between test kathi amador. FINAL Oziel angelo [facility] [place], [address] [facility] [address] [place] [id number] 0 Phone: () - 02/20 TSH uIU/mL 0.35 4.94 8.74 High In Adults, TSH values between 5.00 and 10.00 uIU/ml do notnecess arily indicate the presence of Hypothyro idism.Cor relation with clinical findings such as presence of goiterand /or Thyropero xidase (TPO) Antibody may be helpful. Formore informati on please refer to MAYELA 2004; 291: 228-238.T est Performed by:[facility] [address] - [facility] [place] [address]Izht e : FINAL Oziel Box 02/20 T4, free panel T4, free ng/dL 0.7 1.8 1.01 Test Performed by:[facility] [address] - [facility] [place], [place] [address]Lqaq e [phone] FINAL Oziel Box 05/08 CBC w/ auto diff WBC K/uL 3.0 8.9 7.3 FINAL Oziel angelo [facility] - [place], [address] [facility] [address] [facility] [place] [id number] 0 Phone: () - 05/08 CBC w/ auto diff HGB g/dL 11.3 15.2 11.0 Low FINAL Oziel angelo [facility] [place], [address] [facility] [address] [place] [id number] 0 Phone: () - 05/08 CBC w/ auto diff PLT K/uL 113.0 364.0 210 FINAL Oziel angelo [facility] [place], [address] [facility] [address] [place] [id number] 0 Phone: () - 05/08 CBC w/ auto diff Dave # (ANC) K/uL 1.6 6.6 3.7 FINAL Oziel [facility] [place] [facility] [place], [address] [place] [id number] 0 Phone: () - 05/08 CBC w/ auto diff Dave % % 43.0 74.0 51.1 FINAL Oziel [facility] - [place], [address] [place] [id number] 0 Phone: () - 05/08 CBC w/ auto diff IG % % 0.0 0.5 0.3 FINAL Oziel [facility] - [place], [address] [place] [id number] 0 Phone: () - 05/08 CBC w/ auto diff IG # K/uL 0.0 0.03 0.02 FINAL Oziel [facility] - [place], [address] [place] [id number] 0 Phone: () - 05/08 CBC w/ auto diff LY % % 14.0 41.0 37.9 FINAL Oziel [facility] - [place], [address] [place] [id number] 0 Phone: () - 05/08 CBC w/ auto diff MO % % 6.0 15.0 9.2 FINAL Oziel [facility] - [place], [address] [place] [id number] 0 Phone: () - 05/08 CBC w/ auto diff EO % % 0.0 7.0 1.2 FINAL Oziel [facility] - [place], [address] [place] [id number] 0 Phone: () - 05/08 CBC w/ auto diff BA % % 0.0 2.0 0.3 FINAL Oziel [facility] - [place], [address] [place] [id number] 0 Phone: () - 05/08 CBC w/ auto diff LY # K/uL 0.4 3.6 2.8 FINAL Oziel angelo [facility] [place], [address] [place] [id number] 0 Phone: () - 05/08 CBC w/ auto diff MO # K/uL 0.2 1.3 0.7 FINAL Oziel [facility] - [place], [address] [place] [id number] 0 Phone: () - 05/08 CBC w/ auto diff EO # K/uL 0.0 0.6 0.1 FINAL Oziel [facility] - [place], [address] [place] [id number] 0 Phone: () - 05/08 CBC w/ auto diff BA # K/uL 0.0 0.2 0.0 FINAL Oziel [facility] - [place], [address] [place] [id number] 0 Phone: () - 05/08 CBC w/ auto diff NRBC % #/100W BC 0.0 0.2 0.0 FINAL Oziel angelo [facility] [place], [address] [place] [id number] 0 Phone: () - 05/08 CBC w/ auto diff RBC M/uL 3.9 5.1 3.27 Low FINAL Oziel angelo [facility] [place], [address] [place] [id number] 0 Phone: () - 05/08 CBC w/ auto diff HCT % 35.0 48.0 32.1 Low FINAL Oziel Tolbert a [facility] - [place], [address] [place] [id number] 0 Phone: () - 05/08 CBC w/ auto diff MCV fL 80.0 104.0 98.2 FINAL Oziel T[facility] - [place], [address] [place] [id number] 0 Phone: () - 05/08 CBC w/ auto diff MCH pg 26.0 35.0 33.6 FINAL Oziel angelo [facility] - [place], [address] [place] [id number] 0 Phone: () - 05/08 CBC w/ auto diff MCHC g/dL 30.0 35.0 34.3 FINAL Oziel angelo [facility] - [place], [address] [place] [id number] 0 Phone: () - 05/08 CBC w/ auto diff MPV fL 9.5 13.4 9.4 Low FINAL Oziel angelo [facility] - [place], [address] [place] [id number] 0 Phone: () - 05/08 CBC w/ auto diff RDW % 11.4 16.1 13.10 FINAL Oziel angelo [facility] - [place], [address] [place] [id number] 0 Phone: () - 05/08 CMP Album in g/dL 3.2 5.2 4.0 FINAL Oziel angelo [facility], [address] [place] [id number] 0 Phone: () - 05/08 CMP Alkal ine phosp hatas e U/L 46.0 116.0 56 FINAL Oziel angelo [facility], [address] [place] [id number] 0 Phone: () - 05/08 CMP ALT/S GPT U/L 7.0 40.0 17 FINAL Oziel angelo [facility], [address] [place] [id number] 0 Phone: () - 05/08 CMP AST/S GOT U/L 13.0 40.0 21 FINAL Oziel angelo [facility], [address] [place] [id number] 0 Phone: () - 05/08 CMP BUN mg/dL 9.0 23.0 22 FINAL Oziel angelo [facility], [address] [place] [id number] 0 Phone: () - 05/08 CMP Calci um mg/dL 8.7 10.4 9.3 FINAL Oziel angelo [place] [address] [id number] 0 Phone: () - 05/08 CMP Chlor vipin mmol/L 96.0 114.0 112 FINAL Oziel angelo [place] [address] [id number] 0 Phone: () - 05/08 CMP CO2 [...] 96 hour stability window. FINAL Oziel angelo [place] [address] [id number] 0 Phone: () - 05/08 CMP Creat inine mg/dL 0.5 1.2 0.86 FINAL Oziel angelo [place] [address] [id number] 0 Phone: () - 05/08 CMP GFR estim ate ml/min /1.73m ^2 71.2 GFR is calculate d using the CKD-EPI equation. FINAL Oziel angelo [place] [address] [id number] 0 Phone: () - 05/08 CMP Gluco se mg/dL 73.0 126.0 77 FINAL Oziel angelo [place] [address] [id number] 0 Phone: () - 05/08 CMP Potas sium mmol/L 3.5 5.1 3.9 FINAL Oziel angelo [place] [address] [id number] 0 Phone: () - 05/08 CMP Sodiu m mmol/L 136.0 145.0 148 High FINAL Oziel angelo [place] [address] [id number] 0 Phone: () - 05/08 CMP Bilir ubin, total mg/dL 0.3 1.2 0.4 FINAL Oziel angelo [place] [address] [id number] 0 Phone: () - 05/08 CMP Total prote in g/dL 5.7 8.2 6.1 FINAL Oziel angelo [place] [address] [id number] 0 Phone: () - 05/08 TSH w/ refle x to free T4 TSH uIU/ml 0.32 5.0 1.36 Test performed at [facility] on a Ignyta Immunoass ay Analyzer that uses an immunoenz ymometric sandwich assay for analysis. Patient testing should not be performed using multiple methodolo gies due to analytica l variation seen between test methodolo ginaun. FINAL Oziel angelo [place] [address] [id number] 0 Phone: () - 07/23 [facility] other lab See pin attacher d 07/23 [facility] other lab See pin attacher d 11/03 CMP Album in g/dL 3.2 5.2 4.1 FINAL Oziel angelo [place] [address] [id number] 0 Phone: () - 11/03 CMP Alkal ine phosp hatas e U/L 46.0 116.0 59 FINAL Oziel angelo [place] [address] [id number] 0 Phone: () - 11/03 CMP ALT/S GPT U/L 7.0 40.0 <7 FINAL Oziel angelo [place] [address] [id number] 0 Phone: () - 11/03 CMP AST/S GOT U/L 13.0 40.0 24 FINAL Oziel angelo [place] [address] [address] [facility] [address] [id number] 0 Phone: () - 11/03 CMP BUN mg/dL 9.0 23.0 16.0 FINAL Oziel angelo [place] [address] [facility] [address] [facility] [id number] 0 Phone: () - 11/03 CMP Calci um mg/dL 8.7 10.4 9.1 FINAL Oziel angelo [place] [address] [id number] 0 Phone: () - 11/03 CMP Chlor vipin mmol/L 96.0 114.0 105 FINAL Oziel angelo [place] [address] [id number] 0 Phone: () - 11/03 CMP CO2 [...] 96 hour stability window. FINAL Oziel angelo [place] [address] [id number] 0 Phone: () - 11/03 CMP Creat inine mg/dL 0.5 1.2 0.88 FINAL Oziel angelo [address] [id number] 0 Phone: () - 11/03 CMP GFR estim ate ml/min /1.73m ^2 69.0 GFR is calculate d using the CKD-EPI equation. FINAL Oziel angelo [place] [address] [id number] 0 Phone: () - 11/03 CMP Gluco se mg/dL 73.0 126.0 105 FINAL Oziel angelo [place] [address] [id number] 0 Phone: () - 11/03 CMP Potas sium mmol/L 3.5 5.1 4.4 FINAL Oziel angelo [place] [address] [id number] 0 Phone: () - 11/03 CMP Sodiu m mmol/L 136.0 145.0 139 FINAL Oziel angelo [facility] - [place], [address] [place] [id number] 0 Phone: () - 11/03 CMP Bilir ubin, total mg/dL 0.3 1.2 0.6 FINAL Oziel angelo [facility] - [place], [address] [place] [id number] 0 Phone: () - 11/03 CMP Total prote in g/dL 5.7 8.2 6.6 FINAL Oziel angelo [facility] - [place], [address] [place] [id number] 0 Phone: () - 11/03 CBC w/ auto diff WBC K/uL 3.0 8.9 4.7 FINAL Oziel angelo [facility] - [place], [address] [facility] [place] [id number] 0 Phone: () - 11/03 CBC w/ auto diff HGB g/dL 11.3 15.2 11.6 FINAL Oziel angelo [facility] - [place], [address] [place] [id number] 0 Phone: () - 11/03 CBC w/ auto diff PLT K/uL 113.0 364.0 248 FINAL Oziel angelo [facility] [place], [address] [place] [id number] 0 Phone: () - 11/03 CBC w/ auto diff Dave # (ANC) K/uL 1.6 6.6 2.9 FINAL Oziel angelo [facility] - [place], [address] [place] [id number] 0 Phone: () - 11/03 CBC w/ auto diff Dave % % 43.0 74.0 60.9 FINAL Oziel angelo [facility] - [place], [address] [place] [id number] 0 Phone: () - 11/03 CBC w/ auto diff IG % % 0.0 0.5 0.4 FINAL [facility] [place] [facility] [place], [address] [place] [id number] 0 Phone: () - 11/03 CBC w/ auto diff IG # K/uL 0.0 0.03 0.02 FINAL Oziel [facility] - [place], [address] [place] [id number] 0 Phone: () - 11/03 CBC w/ auto diff LY % % 14.0 41.0 26.8 FINAL Oziel [facility] - [place], [address] [place] [id number] 0 Phone: () - 11/03 CBC w/ auto diff MO % % 6.0 15.0 8.5 FINAL Oziel [facility] - [place], [address] [place] [id number] 0 Phone: () - 11/03 CBC w/ auto diff EO % % 0.0 7.0 3.0 FINAL Oziel [facility] - [place], [address] [place] [id number] 0 Phone: () - 11/03 CBC w/ auto diff BA % % 0.0 2.0 0.4 FINAL Oziel [facility] - [place], [address] [place] [id number] 0 Phone: () - 11/03 CBC w/ auto diff LY # K/uL 0.4 3.6 1.3 FINAL Oziel [facility] - [place], [address] [place] [id number] 0 Phone: () - 11/03 CBC w/ auto diff MO # K/uL 0.2 1.3 0.4 FINAL Oziel [facility] - [place], [address] [place] [id number] 0 Phone: () - 11/03 CBC w/ auto diff EO # K/uL 0.0 0.6 0.1 FINAL Oziel angelo [facility] - [place], [address] [place] [id number] 0 Phone: () - 11/03 CBC w/ auto diff BA # K/uL 0.0 0.2 0.0 FINAL Oziel Tolbert a [facility] - [place], [address] [place] [id number] 0 Phone: () - 11/03 CBC w/ auto diff NRBC % #/100W BC 0.0 0.2 0.0 FINAL Oziel [facility] - [place], [address] [place] [id number] 0 Phone: () - 11/03 CBC w/ auto diff RBC M/uL 3.9 5.1 3.52 Low FINAL Oziel Tolbert a [facility] - [place], [address] [place] [id number] 0 Phone: () - 11/03 CBC w/ auto diff HCT % 35.0 48.0 34.2 Low FINAL Oziel angelo [facility] - [place], [address] [place] [id number] 0 Phone: () - 11/03 CBC w/ auto diff MCV fL 80.0 104.0 97.2 FINAL Oziel angelo [facility] - [place], [address] [place] [id number] 0 Phone: () - 11/03 CBC w/ auto diff MCH pg 26.0 35.0 33.0 FINAL Oziel angelo [facility] - [place], [address] [place] [id number] 0 Phone: () - 11/03 CBC w/ auto diff MCHC g/dL 30.0 35.0 33.9 FINAL Oziel [facility] - [place], [address] [place] [id number] 0 Phone: () - 11/03 CBC w/ auto diff MPV fL 9.5 13.4 8.7 Low FINAL Oizel angelo [facility] - [place], [address] [place] [id number] 0 Phone: () - 11/03 CBC w/ auto diff RDW % 11.4 16.1 14.40 FINAL Oziel angelo [facility] - [place], [address] [place] [id number] 0 Phone: () - 02/08 TSH w/ refle x to free T4 TSH uIU/ml 0.32 5.0 3.61 Test performed at [facility] on a [employer] Immunoass ay Analyzer that uses an immunoenz ymometric sandwich assay for analysis. Patient testing should not be performed using multiple methodharley amador due to analytica l variation seen between test methodharley amador. FINAL Oziel angelo [facility] [place], [address] [place] [id number] 0 Phone: () - 02/08 CBC w/ auto diff WBC K/uL 3.0 8.9 4.7 FINAL Oziel angelo [facility] - [place], [address] [place] [id number] 0 Phone: () - 02/08 CBC w/ auto diff HGB g/dL 11.3 15.2 11.0 Low FINAL Oziel angelo [facility] - [place], [address] [place] [id number] 0 Phone: () - 02/08 CBC w/ auto diff PLT K/uL 113.0 364.0 194 FINAL Oziel angelo [facility] - [place], [address] [place] [id number] 0 Phone: () - 02/08 CBC w/ auto diff Dave # (ANC) K/uL 1.6 6.6 2.7 FINAL Oziel angelo [facility] - [place], [address] [place] [id number] 0 Phone: () - 02/08 CBC w/ auto diff Dave % % 43.0 74.0 57.2 FINAL [facility] [place] [facility] [place], [address] [place] [id number] 0 Phone: () - 02/08 CBC w/ auto diff IG % % 0.0 0.5 0.4 FINAL Oziel [facility] [place], [address] [place] [id number] 0 Phone: () - 02/08 CBC w/ auto diff IG # K/uL 0.0 0.03 0.02 FINAL Oziel [facility] [place], [address] [place] [id number] 0 Phone: () - 02/08 CBC w/ auto diff LY % % 14.0 41.0 31.6 FINAL Oz[facility] - [place], [address] [place] [id number] 0 Phone: () - 02/08 CBC w/ auto diff MO % % 6.0 15.0 8.0 FINAL [facility] - [place], [address] [place] [id number] 0 Phone: () - 02/08 CBC w/ auto diff EO % % 0.0 7.0 2.2 FINAL Oz[facility] - [place], [address] [place] [id number] 0 Phone: () - 02/08 CBC w/ auto diff BA % % 0.0 2.0 0.6 FINAL [facility] - [place], [address] [place] [id number] 0 Phone: () - 02/08 CBC w/ auto diff LY # K/uL 0.4 3.6 1.5 FINAL Oziel [facility] - [place], [address] [place] [id number] 0 Phone: () - 02/08 CBC w/ auto diff MO # K/uL 0.2 1.3 0.4 [facility]AL [facility] [place], [address] [place] [id number] [phone] Phone: () - 02/08 CBC w/ auto diff EO # K/uL 0.0 0.6 0.1 FINAL [facility] [place], [address] [place] [phone] 0 Phone: () - 02/08 CBC w/ auto diff BA # K/uL 0.0 0.2 0.0 FINAL [facility] [place], [address] [place] [phone] Phone: () - 02/08 CBC w/ auto diff NRBC % #/100W BC 0.0 0.2 0.0 FINAL [facility] [place], [address] [place] [id number] 0 Phone: () - 02/08 CBC w/ auto diff RBC M/uL 3.9 5.1 3.26 Low FINAL Oziel angelo [facility] [place], [address] [place] [id number] 0 Phone: () - 02/08 CBC w/ auto diff HCT % 35.0 48.0 32.9 Low FINAL Oziel angel[facility] [place], [address] [place] [id number] 0 Phone: () - 02/08 CBC w/ auto diff MCV fL 80.0 104.0 100.9 FINAL [facility] [place], [address] [place] [id number] 0 Phone: () - 02/08 CBC w/ auto diff MCH pg 26.0 35.0 33.7 FINAL [facility] [place], [address] [place] [id number] 0 Phone: () - 02/08 CBC w/ auto diff MCHC g/dL 30.0 35.0 33.4 FINAL Oziel angel[facility] [place], [address] [place] [id number] 0 Phone: () - 02/08 CBC w/ auto diff MPV fL 9.5 13.4 9.0 Low FINAL Oziel angel[facility] [place], [address] [place] [id number] 0 Phone: () - 02/08 CBC w/ auto diff RDW % 11.4 16.1 13.70 FINAL Oziel angel[facility] [place], [address] [facility] [address] [place] [id number] 0 Phone: () - 02/08 CMP Album in g/dL 3.2 5.2 4.0 FINAL Oziel angelo [facility], [address] [place] [id number] 0 Phone: () - 02/08 CMP Alkal ine phosp hatas e U/L 46.0 116.0 83 FINAL Oziel angelo [facility], [address] [place] [id number] 0 Phone: () - 02/08 CMP ALT/S GPT U/L 7.0 40.0 <7 FINAL Oziel angelo [facility], [address] [place] [id number] 0 Phone: () - 02/08 CMP AST/S GOT U/L 13.0 40.0 23 FINAL Oziel angelo [facility], [address] [place] [id number] 0 Phone: () - 02/08 CMP BUN mg/dL 9.0 23.0 17.0 FINAL Oziel angelo [facility], [address] [place] [id number] 0 Phone: () - 02/08 CMP Calci um mg/dL 8.7 10.4 8.8 FINAL Oziel angelo [facility], [address] [facility] [id number] 0 Phone: () - 02/08 CMP Chlor vipin mmol/L 96.0 114.0 109 FINAL Oziel angelo [facility], [address] [facility] [address] [id number] 0 Phone: () - 02/08 CMP CO2 [...] 96 hour stability window. FINAL Oziel angelo [place] [address] [id number] 0 Phone: () - 02/08 CMP Creat inine mg/dL 0.5 1.2 0.86 FINAL Oziel angelo [place] [address] [id number] 0 Phone: () - 02/08 CMP GFR estim ate ml/min /1.73m ^2 70.9 GFR is calculate d using the CKD-EPI equation. FINAL Oziel angelo [place] [address] [address] [facility] [address] [id number] 0 Phone: () - 02/08 CMP Gluco se mg/dL 73.0 126.0 84 FINAL Oziel angelo [facility] [address] [facility] [address] [id number] 0 Phone: () - 02/08 CMP Potas sium mmol/L 3.5 5.1 4.5 FINAL Oziel angelo [facility] [address] [facility] [address] [id number] 0 Phone: () - 02/08 CMP Sodiu m mmol/L 136.0 145.0 141 FINAL Oziel angelo [place] [address] [address] [facility] [address] [id number] 0 Phone: () - 02/08 CMP Bilir ubin, total mg/dL 0.3 1.2 0.3 FINAL Oziel angelo [facility] [address] [facility] [address] [id number] 0 Phone: () - 02/08 CMP Total prote in g/dL 5.7 8.2 6.1 FINAL [facility] [place], [address] [place] [id number] 0 Phone: () - 06/06 [facility] other lab See pin attacher d 08/09 CBC w/ auto diff WBC K/uL 3.0 8.9 3.5 FINAL [facility]iel Tolbert [facility] [place], [address] [place] [id number] 0 Phone: () - 08/09 CBC w/ auto diff HGB g/dL 11.3 15.2 11.7 FINAL [facility] [place], [address] [place] [id number] 0 Phone: () - 08/09 CBC w/ auto diff PLT K/uL 113.0 364.0 196 FINAL Oziel angel[facility] [place], [address] [place] [id number] 0 Phone: () - 08/09 CBC w/ auto diff Dave # (ANC) K/uL 1.6 6.6 1.9 FINAL Oziel angel[facility] [place], [address] [place] [id number] 0 Phone: () - 08/09 CBC w/ auto diff Dave % % 43.0 74.0 52.2 FINAL Oziel angel[facility] [place], [address] [place] [id number] 0 Phone: () - 08/09 CBC w/ auto diff IG % % 0.0 0.5 0.3 FINAL [facility] [place], [address] [place] [id number] 0 Phone: () - 08/09 CBC w/ auto diff IG # K/uL 0.0 0.03 0.01 FINAL [facility] [place], [address] [place] [id number] 0 Phone: () - 08/09 CBC w/ auto diff LY % % 14.0 41.0 35.0 FINAL [facility] [place], [address] [place] [id number] 0 Phone: () - 08/09 CBC w/ auto diff MO % % 6.0 15.0 9.6 FINAL [facility] [place], [address] [place] [id number] 0 Phone: () - 08/09 CBC w/ auto diff EO % % 0.0 7.0 2.3 FINAL [facility] [place], [address] [place] [id number] 0 Phone: () - 08/09 CBC w/ auto diff BA % % 0.0 2.0 0.6 FINAL Oziel angel[facility] [place], [address] [place] [id number] 0 Phone: () - 08/09 CBC w/ auto diff LY # K/uL 0.4 3.6 1.2 FINAL Oziel angel[facility] [place], [address] [place] [id number] 0 Phone: () - 08/09 CBC w/ auto diff MO # K/uL 0.2 1.3 0.3 FINAL [facility] [place], [address] [place] [id number] 0 Phone: () - 08/09 CBC w/ auto diff EO # K/uL 0.0 0.6 0.1 FINAL Oziel angel[facility] [place], [address] [place] [id number] 0 Phone: () - 08/09 CBC w/ auto diff BA # K/uL 0.0 0.2 0.0 FINAL [facility] [place], [address] [place] [id number] 0 Phone: () - 08/09 CBC w/ auto diff NRBC % #/100W BC 0.0 0.2 0.0 FINAL [facility] [place], [address] [place] [id number] 0 Phone: () - 08/09 CBC w/ auto diff RBC M/uL 3.9 5.1 3.51 Low FINAL [facility] [place], [address] [place] [id number] 0 Phone: () - 08/09 CBC w/ auto diff HCT % 35.0 48.0 35.6 FINAL [facility] [place], [address] [place] [id number] 0 Phone: () - 08/09 CBC w/ auto diff MCV fL 80.0 104.0 101.4 FINAL [facility] [place], [address] [place] [id number] 0 Phone: () - 08/09 CBC w/ auto diff MCH pg 26.0 35.0 33.3 FINAL [facility] [place], [address] [place] [id number] 0 Phone: () - 08/09 CBC w/ auto diff MCHC g/dL 30.0 35.0 32.9 FINAL [facility] [place], [address] [place] [id number] 0 Phone: () - 08/09 CBC w/ auto diff MPV fL 9.5 13.4 9.3 Low FINAL [facility] [place], [address] [place] [id number] 0 Phone: () - 08/09 CBC w/ auto diff RDW % 11.4 16.1 13.20 FINAL [facility] [place], [address] [facility] [place] [id number] 0 Phone: 08/09 CMP Album in g/dL 3.5 5.0 4.1 FINAL Oziel Box * [facility], [address] [facility] [id number] 0 08/09 CMP Alkal ine phosp hatas e U/L 36.0 125.0 66 FINAL Oziel Box * [facility], [address] [facility] [id number] 0 08/09 CMP ALT/S GPT U/L 0.0 34.0 6 FINAL Oziel Box * [facility], [address] [facility] [id number] 0 08/09 CMP AST/S GOT U/L 14.0 36.0 28 FINAL Oziel Box * [facility], [address] [facility] [id number] 0 08/09 CMP BUN mg/dL 7.0 17.0 17.0 FINAL Oziel Box * [facility], [address] [facility] [id number] 0 08/09 CMP Calci um mg/dL 8.4 10.2 9.4 FINAL Oziel Box * [facility], [address] [facility] [id number] 0 08/09 CMP Chlor vipin mmol/L 96.0 107.0 106 FINAL Oziel Isauro * [facility], [address] [facility] [id number] 0 08/09 CMP CO2 mmol/L 22.0 30.0 [...] the 96 hour stability window. FINAL Oziel Tilleyot a [facility], [address] [id number] 0 08/09 CMP Creat inine mg/dL 0.66 1.25 0.70 FINAL Oziel Tilleyot a [facility], [address] [id number] 0 08/09 CMP GFR estim ate ml/min /1.73m ^2 90.4 GFR is calculate d using the CKD-EPI equation. [facility] [address] [id number] 0 08/09 CMP Gluco se mg/dL 74.0 100.0 87 FINAL Oziel Tilleyot a [facility], [address] [id number] 0 08/09 CMP Potas sium mmol/L 3.5 5.1 4.2 FINAL Oziel Tilleyot a [facility], [address] [id number] 0 08/09 CMP Sodiu m mmol/L 137.0 145.0 139 FINAL Oziel Tilleyot a [facility], [address] [id number] 0 08/09 CMP Bilir ubin, total mg/dL 0.2 1.3 0.3 FINAL Oziel Tilleyot a [facility], [address] [id number] 0 08/09 CMP Total prote in g/dL 6.3 8.2 6.7 FINAL Oziel Box * [place] [facility] [place], [address] [facility] [id number] 0 08/09 TSH w/ refle x to free T4 TSHR- v mIU/ml 0.47 4.68 0.74 FINAL Oziel Box * [place] [facility] [place], [address] [facility] [id number] 0 02/13 CBC w/ auto diff WBC K/uL 3.0 8.9 4.7 FINAL Oziel FREEMAN [facility] [place], [address] [place] [id number] 0 02/13 CBC w/ auto diff HGB g/dL 11.3 15.2 10.4 Low FINAL [facility]iel [facility] [place], [address] [place] [id number] 0 02/13 CBC w/ auto diff PLT K/uL 113.0 364.0 252 FINAL Oziel [facility] [place], [address] [place] [id number] 0 02/13 CBC w/ auto diff Dave # (ANC) K/uL 1.6 6.6 2.4 FINAL Oziel [facility] [place], [address] [place] [id number] 0 02/13 CBC w/ auto diff Dave % % 43.0 74.0 51.3 FINAL Oziel [facility] [place], [address] [place] [id number] 0 02/13 CBC w/ auto diff IG % % 0.0 0.5 0.2 FINAL Oziel Box [place] [facility] - [place], [address] [place] [id number] 0 02/13 CBC w/ auto diff IG # K/uL 0.0 0.03 0.01 FINAL Oziel F[facility] [place], [address] [place] [id number] 0 02/13 CBC w/ auto diff LY % % 14.0 41.0 33.5 FINAL Oziel [facility] [place], [address] [place] [id number] 0 02/13 CBC w/ auto diff MO % % 6.0 15.0 8.8 FINAL Oziel [facility] [place], [address] [place] [id number] 0 02/13 CBC w/ auto diff EO % % 0.0 7.0 5.6 FINAL Oziel [facility] [place], [address] [place] [id number] 0 02/13 CBC w/ auto diff BA % % 0.0 2.0 0.6 FINAL Oziel [facility] [place], [address] [place] [id number] 0 02/13 CBC w/ auto diff LY # K/uL 0.4 3.6 1.6 FINAL Oziel [facility] [place], [address] [place] [id number] 0 02/13 CBC w/ auto diff MO # K/uL 0.2 1.3 0.4 FINAL Oziel [facility] [place], [address] [place] [id number] 0 02/13 CBC w/ auto diff EO # K/uL 0.0 0.6 0.3 FINAL Oziel [facility] [place], [address] [place] [id number] 0 02/13 CBC w/ auto diff BA # K/uL 0.0 0.2 0.0 FINAL Oziel [facility] [place], [address] [place] [id number] 0 02/13 CBC w/ auto diff NRBC % #/100W BC 0.0 0.2 0.0 FINAL Oziel [facility] [place], [address] [place] [id number] 0 02/13 CBC w/ auto diff RBC M/uL 3.9 5.1 3.24 Low FINAL Oziel [facility] [place], [address] [place] [id number] 0 02/13 CBC w/ auto diff HCT % 35.0 48.0 32.3 Low FINAL Oziel [facility] [place], [address] [place] [id number] 0 02/13 CBC w/ auto diff MCV fL 80.0 104.0 99.7 FINAL Oziel [facility] [place], [address] [place] [id number] 0 02/13 CBC w/ auto diff MCH pg 26.0 35.0 32.1 FINAL Oziel [facility] [place], [address] [place] [id number] 0 02/13 CBC w/ auto diff MCHC g/dL 30.0 35.0 32.2 FINAL Oziel [facility] [place], [address] [place] [id number] 0 02/13 CBC w/ auto diff MPV fL 9.5 13.4 9.1 Low FINAL Oziel [facility] [place], [address] [place] [id number] 0 02/13 CBC w/ auto diff RDW % 11.4 16.1 13.70 FINAL Oziel [facility] [place], [address] [place] [id number] 0 02/13 CMP Album in g/dL 3.5 5.0 3.5 FINAL Oziel Box * [place] [facility], [address] [facility] [id number] 0 02/13 CMP Alkal ine phosp hatas e U/L 36.0 125.0 75 FINAL Oziel Box * [place] [facility], [address] [facility] [id number] 0 02/13 CMP ALT/S GPT U/L 0.0 34.0 <4 Repeate d FINAL Oziel Box * [place] [facility], [address] [facility] [id number] 0 02/13 CMP AST/S GOT U/L 14.0 36.0 17 FINAL Oziel Box * [place] [facility], [address] [facility] [id number] 0 02/13 CMP BUN mg/dL 7.0 17.0 18.0 High FINAL Oziel Box * [place] [facility], [address] [facility] [id number] 0 02/13 CMP Calci um mg/dL 8.4 10.2 9.2 FINAL Oziel Card [place] [facility], [address] [facility] [id number] 0 02/13 CMP Chlor vipin mmol/L 96.0 107.0 109 High FINAL Oziel Card [place] [facility], [address] [facility] [id number] 0 02/13 CMP CO2 mmol/L 22.0 30.0 [...] the 96 hour stability window. FINAL Oziel Card [facility], [address] [facility] [id number] 0 02/13 CMP Creat inine mg/dL 0.66 1.25 0.80 FINAL Oziel Card [place] [facility], [address] [facility] [id number] 0 02/13 CMP GFR estim ate ml/min /1.73m ^2 76.8 GFR is calculate d using the CKD-EPI equation. FINAL Oziel Card [facility], [address] [facility] [id number] 0 02/13 CMP Gluco se mg/dL 74.0 100.0 84 FINAL Oziel Card [place] [facility], [address] [facility] [id number] 0 02/13 CMP Potas sium mmol/L 3.5 5.1 4.4 FINAL Oziel Card [place] [facility], [address] [facility] [id number] 0 02/13 CMP Sodiu m mmol/L 137.0 145.0 137 FINAL Oziel Box * [place] [facility] [place], [address] [facility] [id number] 0 02/13 CMP Bilir ubin, total mg/dL 0.2 1.3 0.5 FINAL Oziel Box * [place] [facility] [place], [address] [facility] [id number] 02/13 CMP Total prote in g/dL 6.3 8.2 6.2 Low FINAL Oziel Box * [place] [facility] [place], [address] [facility] [id number] 0 04/03 Misc other lab See pin attacher d 08/14 CMP Album in g/dL 3.5 5.0 3.7 FINAL Oziel Box * [facility] , [address] [facility] [id number] 0 08/14 CMP Alkal ine phosp hatas e U/L 36.0 125.0 68 FINAL Oziel Box * [facility] , [address] [facility] [id number] 0 08/14 CMP ALT/S GPT U/L 0.0 34.0 10 FINAL Oziel Box * [place] [facility] , [address] [facility] [id number] 0 08/14 CMP AST/S GOT U/L 14.0 36.0 28 FINAL Oziel Box * [facility] , [address] [facility] [id number] 0 08/14 CMP BUN mg/dL 7.0 17.0 25.0 High FINAL Oziel Box * [facility] , [address] [facility] [id number] 0 08/14 CMP Calci um mg/dL 8.4 10.2 8.7 FINAL Oziel Box * [facility] , [address] [facility] [address] [facility] [id number] 0 08/14 CMP Chlor vipin mmol/L 96.0 107.0 109 High FINAL Oziel Box * [facility] , [address] [facility] [address] [facility] [id number] 0 08/14 CMP CO2 mmol/L 22.0 30.0 [...] hour stability window. FINAL Oziel Box * [facility] , [address] [facility] [address] [facility] [id number] 0 08/14 CMP Creat inine mg/dL 0.66 1.25 0.90 FINAL Oziel Box * [facility] , [address] [id number] 0 08/14 CMP GFR estim ate ml/min /1.73m ^2 66.5 GFR is calculate d using the CKD-EPI equation. FINAL Oziel Box * [facility] , [address] [id number] 0 08/14 CMP Gluco se mg/dL 74.0 100.0 95 FINAL Oziel Box * [facility] , [address] [id number] 0 08/14 CMP Potas sium mmol/L 3.5 5.1 4.5 FINAL Oziel Box * [facility] , [address] [facility] [address] [id number] 0 08/14 CMP Sodiu m mmol/L 137.0 145.0 137 FINAL Oziel Box * [facility] , [address] [facility] [id number] 0 08/14 CMP Bilir ubin, total mg/dL 0.2 1.3 0.8 FINAL Oziel Box * [facility] , [address] [facility] [id number] 0 08/14 CMP Total prote in g/dL 6.3 8.2 6.5 FINAL Oziel Box * [facility] , [address] [facility] [id number] 08/14 CBC w/ auto diff WBC K/uL 3.0 8.9 4.7 FINAL Oziel Box [place] [facility] , [address] [place] [facility] [id number] 0 08/14 CBC w/ auto diff HGB g/dL 11.3 15.2 11.5 FINAL Oziel Box [place] [facility] , [address] [place] [facility] [id number] 0 08/14 CBC w/ auto diff PLT K/uL 113.0 364.0 211 FINAL Oziel Box [place] [facility] [place] [facility] , [address] [place] [facility] [id number] 0 08/14 CBC w/ auto diff Dave # (ANC) K/uL 1.6 6.6 2.9 FINAL Oziel Box [place] [facility] [place] [facility] , [address] [place] [facility] [id number] 0 08/14 CBC w/ auto diff Dave % % 43.0 74.0 61.3 FINAL Oziel Box [place] [facility] [place] [facility] , [address] [place] [id number] 0 08/14 CBC w/ auto diff IG % % 0.0 0.5 0.2 FINAL Oziel Box [place] [facility] [place] [facility] , [address] [place] [id number] 0 08/14 CBC w/ auto diff IG # K/uL 0.0 0.03 0.01 FINAL Oziel Box [place] [facility] [place] [facility] , [address] [place] [id number] 0 08/14 CBC w/ auto diff LY % % 14.0 41.0 25.6 FINAL Oziel Box [place] [facility] , [address] [place] [id number] 0 08/14 CBC w/ auto diff MO % % 6.0 15.0 8.7 FINAL Oziel Box [place] [facility] , [address] [place] [id number] 0 08/14 CBC w/ auto diff EO % % 0.0 7.0 3.8 FINAL Oziel Box [place] [facility] , [address] [place] [id number] 0 08/14 CBC w/ auto diff BA % % 0.0 2.0 0.4 FINAL Oziel Box [place] [facility] [place] [facility] , [address] [place] [id number] 0 08/14 CBC w/ auto diff LY # K/uL 0.4 3.6 1.2 FINAL Oziel Box [place] [facility] [place] [facility] , [address] [place] [id number] 0 08/14 CBC w/ auto diff MO # K/uL 0.2 1.3 0.4 FINAL Oziel Box [place] [facility] [place] [facility] , [address] [place] [id number] 0 08/14 CBC w/ auto diff EO # K/uL 0.0 0.6 0.2 FINAL Oziel Box [place] [facility] [place] [facility] , [address] [place] [id number] 0 08/14 CBC w/ auto diff BA # K/uL 0.0 0.2 0.0 FINAL Oziel Box [place] [facility] [place] [facility] , [address] [place] [id number] 0 08/14 CBC w/ auto diff NRBC % #/100W BC 0.0 0.2 0.0 FINAL Oziel Box [place] [facility] [place] [facility] , [address] [place] [id number] 0 08/14 CBC w/ auto diff RBC M/uL 3.9 5.1 3.60 Low FINAL Oziel Box [place] [facility] [place] [facility] , [address] [place] [id number] 0 08/14 CBC w/ auto diff HCT % 35.0 48.0 35.2 FINAL Oziel Box [place] [facility] [place] [facility] , [address] [place] [id number] 0 08/14 CBC w/ auto diff MCV fL 80.0 104.0 97.8 FINAL Oziel Box [place] [facility] [place] [facility] , [address] [place] [id number] 0 08/14 CBC w/ auto diff MCH pg 26.0 35.0 31.9 FINAL Oziel Box [place] [facility] [place] [facility] , [address] [place] [id number] 0 08/14 CBC w/ auto diff MCHC g/dL 30.0 35.0 32.7 [facility]AL [facility] , [address] [facility] [address] [facility] [id number] 0 08/14 CBC w/ auto diff MPV fL 9.5 13.4 9.0 Low FINAL Oziel Ryan [facility] , [address] [facility] [address] [facility] [id number] 0 08/14 CBC w/ auto diff RDW % 11.4 16.1 13.60 [facility]AL [facility] , [address] [facility] [address] [facility] [id number] 0 Medications Date Name Route Dose Frequency Instructions Start Date End Date Status Vitamin [id number] Acid Oral 500 mcg-400 mcg daily active [...] concentration must be 0.3-1.2 mg/mL.Administ er using [id number] ining equipment and through an in-line 0.22 [...] pain Active Vital Signs Date Type Value 10/24/2021 BMI 33.28 10/24/2021 Height 65.00 10/24/2021 BSA 1.98 10/24/2021 Body Temperature 96.90 10/24/2021 Heart Beat 65.00 10/24/2021 Respiratory Rate 20.00 10/24/2021 Oxygen Saturation 97.00 10/24/2021 Intravascular Systolic 138 10/24/2021 Intravascular Diastolic 84 10/24/2021 Pain Scale 0.00 10/24/2021 Weight 200.00 11/21/2021 Body Temperature 97.30 11/21/2021 BMI 34.28 11/21/2021 Height 65.00 11/21/2021 Weight 206.00 11/21/2021 BSA 2.00 11/21/2021 Intravascular Systolic 158 11/21/2021 Intravascular Diastolic [...]
--- OUTSIDE RECORDS SUMMARY | 2024-08-27 13:44 | XMS_ITS | Clinical Summary ---
Author Organization [facility] Address [address] [place] [id number] Care Team Providers Care Insurance Auditor Name Role Phone Alvino Tracey MD Unavailable Dheeraj Valero Unavailable [phone] Staff, Other Clinical Unavailable UnavailAnnie Frey MD Primary Care Provider [phone] Allergies Active Allergy Reactions Criticality Noted Date Comments Ciprofloxacin Rash 12/15/2017 Nitrofurantoin Monohyd/M-Cryst Hives 09/09 Penicillins Diarrhea 06/09/2006 Medications ibuprofen (ADVIL; MOTRIN) 200 mg tablet Take 4 tablets by mouth every 8 hours if needed. 0 09/22/2013 Active Active Problems Problem Noted Date Diagnosed Date Osteoarthritis of both hands 12/15/2017 Other bursitis disorders 06/09/2006 Overview (06/09/2006): HIPS Urge incontinence 06/09/2006 Immunizations Immunization Administration Dates Next Due COVID-19 vaccine ([employer] 30mcg/0.3mL) [place] Greg[place] 06/07/2020,05/17/2020 Influenza, High-dose Inactivated 12/24/2014 Influenza, High-dose Quadrivalent Inactivated Influenza, Inactivated IIV3 (Age 65+ Years) Preserv Free 12/15/2017 Pneumococcal Poly,23-Valent (Pneumovax) 12/16/19 18 Pneumococcal conj 13-Valent (Prevnar 13) 017 Td (Age >=7 Years) 03/15/1998 Tdap 08/24/2008,08/24/2008 Family History Medical History Relation Name Comments Hyperlipidemia Brother Alcohol/Drug Father Allergies Father Arthritis Father osteoarthritis Heart Disease Father IN Hypertension Father Other Father MIGRAINES Cancer-breast Maternal [...] Paying Living Expenses Not on file 03/15/2021 Comments No Sex and Gender Information Value Date Recorded Sex Assigned at Not on file 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 Gender Identity Not on file Sexual Orientation Not on file Occupation Industry Job Start Date Job End Date Not on file Not on file Not on file Not on file Not on file Not on file Not on file Not on file Obstetrics History Para Term [...] Done Comments Hepatitis C screening for age 18-79 1967 Zoster (shingles) series for age 50+ (1 of 2) 1999 Tetanus booster 08/24/2018 08/24/2008, 08/13, 03/15/1998 BMI (ht and wt on same day) for age 18+ 12/15/2018 12/15/2017, 01/25/2017, 11/26/2016, Additional history exists Depression screening for age 12+ 12/15/2018 12/15/2017, 11/26/2016 Medicare Wellness for age 65+ 12/16/2018 12/15/2017, 11/26/2016 Fecal testing non-DNA (FIT,FOBT,iFOBT) for age 45-75 12/20/2018 12/20/2017, 11/27/2016, 10/05/2014, Additional history exists Lipids for age 45-75 11/26/2021 11/26/2016, 08/04/2012, 08/22/2007 COVID-19 vaccine series ( season) 2023 12/17/2020, 06/07/2020, 05/17/2020 RSV vaccine for adults or (1 - 1-dose 75+ series) 02/20/2024 Influenza Vaccine (Season Ended) 2024 12/15/2017, 12/24/2014 Tdap Completed 08/24/2008, 08/24/2008 DEXA/DXA scan for age 65+ Completed 10/05/2014, 06/2005 Pneumococcal series for age 50+ Completed 12/15/2017, 11/26/2016 Hepatitis B series for 19+ Aged Out N o longer eligible based on patient's age to complete this topic Procedures Procedure Name Priority Date/Time Associated Diagnosis Comments OCCULT BLOOD IFOBT STOOL Routine 12/20/2017 9:30 AM CDT Screening for colon cancer LIPID PANEL W REFLEX MEASURED LDL Routine 11/26/2016 10:46 AM CDT Lipid screening XR DXA BONE DENSITY 2 SITES AXIAL Routine 10/05/2014 9:10 AM CDT Screening for osteoporosis from Last 3 Months or Most Recently Relevant to Health Maintenance Results * (ABNORMAL) OCCULT BLOOD IFOBT STOOL [[id number]] (12/20/2017 9:30 AM CDT) STOOL BLOOD ,IFOBT Positive(A ) Negative 12/21/2017 2:24 PM CDT [facility] Stool STOOL SPECIMEN / Unknown Non-Blood / Unknown 12/20/2017 9:30 AM CDT 12/21/2017 2:18 PM CDT Shani Burrell NP LABORATORY F inal Result [facility] [address] [place] [address], [place] [phone] * (ABNORMAL) LIPID PANEL W REFLEX MEASURED LDL (11/26/2016 10:46 AM CDT) CHOLESTEROL,TOTAL 202(H) 100 - 199 mg/dL 11/26/2016 5:51 PM CDT [facility] TRIGLYCERIDES 92 <150 mg/dL 11/26/2016 5:51 PM CDT [facility] HDL CHOLESTEROL 60 >40 mg/dL 7 5:51 PM CDT [facility] NON-HDL CHOLESTEROL 142 <145 mg/dl 11/26/2016 5:51 PM CDT [facility] CHOL/HDL RATIO 3.37 <4.50 11/26/2016 5:51 PM CDT [facility] LDL CHOLESTEROL 124 <=130 mg/dL 11/26/2016 5:51 PM CDT [facility] PATIENT STATUS FASTING 11/26/2016 5:51 PM CDT [facility] Blood BLOOD SPECIMEN / Unknown Venipuncture / Unknown 11/26/2016 10:46 AM CDT 11/26/2016 10:46 AM CDT us Shani Burrell NP CHEMISTRY F inal Result [facility] [address] [place] [address], [place] * XR DXA BONE DENSITY 2 SITES (10/05/2014 9:10 AM CDT) Anatomical Region Laterality Modality Spine, HIPS, HIPL, HIPR Other Narrative 10/10/2014 9:27 AM CDT Please see scanned document for results of this study. 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, 09/26/10 * Full Code (Latest Code Status on File) Date Activated Date Inactivated Comments 10/23/2020 8:13 AM 10/23/2020 1:08 PM Question Answer Comments Code Status Discussion: Per Existing Order Care Teams Insurance Auditor Relationship Specialty Start Date End Date Annie Worthington MD [address] [place] [phone] PCP - General Internal Medicine 10/16/20 Alvino Tracey MD Surgery - Orthopedics 09/22/13 Dheeraj Valero [address] [place] [id number] Molecular Geneticist 09/22/13 Staff, Other Clinical . Dentistry - General 11/26/16
--- OUTSIDE RECORDS SUMMARY | 2024-08-27 13:45 | XMS_ITS ---
Author Name Interface, I2Whrbvrd lity Address [address] [facility] [address] [address] [facility] Address [address] [facility] [address] [address] Care Team Providers Care Consulting Hr Professional Name Role Phone Jignesh Valadez Unavailable Allergies and Adverse Reactions Medication/Group Name [...] 20 MIN 05/13/2022 APPOINTMENT CHART CHECK 5 AZ N 05/08/2022 APPOINTMENT OV 20 MIN 05/08/2022 [...] 15 MIN 02/20/2022 APPOINTMENT CHART CHECK 5 AZ N 01/16/2022 APPOINTMENT PORT DRAW 15 MIN [...] 30 MIN 10/02/2021 APPOINTMENT CHART CHECK 5 AZ N 10/01/2021 APPOINTMENT OUTSIDE TEST 5 M IN 09/26/2021 APPOINTMENT TREATMENT 2 HR 09/26/2021 APPOINTMENT PORT DRAW 15 MIN 09/26/2021 APPOINTMENT OV 30 MIN 09/08/2021 APPOINTMENT OFFICE FU 20 MIN NO TREATMENT 09/05/2021 APPOINTMENT OUTSIDE TEST 5 M IN 08/27/2021 APPOINTMENT OV 20 MIN 08/27/2021 APPOINTMENT PORT DRAW 15 MIN 08/27/2021 APPOINTMENT TREATMENT 2 HR 07/30/2021 APPOINTMENT TREATMENT 2 HR 07/30/2021 APPOINTMENT PORT DRAW 15 MIN 07/30/2021 APPOINTMENT OV 20 MIN 07/02/2021 APPOINTMENT TREATMENT 4 HR 07/02/2021 APPOINTMENT PORT DRAW 15 MIN 07/02/2021 APPOINTMENT OV 20 MIN 06/25/2021 APPOINTMENT TREATMENT 4 HR 06/25/2021 APPOINTMENT OV 20 MIN 06/25/2021 APPOINTMENT PORT DRAW 15 MIN 05/28/2021 APPOINTMENT TREATMENT 2 HR 05/28/2021 APPOINTMENT OV 20 MIN 05/28/2021 APPOINTMENT PORT DRAW 15 MIN 05/28/2021 APPOINTMENT PBR 15 MIN 04/30/2021 APPOINTMENT TREATMENT 2 HR 04/23/2021 APPOINTMENT OV 20 MIN 04/23/2021 APPOINTMENT TREATMENT 2 HR 04/15/2021 APPOINTMENT OUTSIDE TEST 5 M IN 04/14/2021 APPOINTMENT TREATMENT 2 HR 04/14/2021 APPOINTMENT PORT DRAW 15 MIN 04/14/2021 APPOINTMENT OV 30 MIN 04/14/2021 APPOINTMENT TREATMENT 2 HR 04/14/2021 APPOINTMENT OV 20 MIN 04/14/2021 APPOINTMENT PORT DRAW 15 MIN 04/08/2021 APPOINTMENT CHART CHECK 5 AZ N 04/07/2021 APPOINTMENT OUTSIDE TEST 5 M IN 03/17/2021 APPOINTMENT PORT DRAW 15 MIN 03/17/2021 APPOINTMENT OV 20 MIN 03/17/2021 APPOINTMENT TREATMENT 2 HR 02/17/2021 APPOINTMENT TREATMENT 2 HR 02/17/2021 APPOINTMENT CONVERSION ANCIL MARTY 15 MIN 02/17/2021 APPOINTMENT OV 20 MIN 02/07/2021 APPOINTMENT RCT3 - 156 PD RC CARBO TAXOL - PUSHED D/T HOLIDAY 02/07/2021 APPOINTMENT RCT3 - 156 PD RC CARBO TAXOL - PUSHED D/T HOLIDAY 02/07/2021 APPOINTMENT RCT3 - 156 PD RC CARBO TAXOL - PUSHED D/T HOLIDAY 01/30/2021 APPOINTMENT RCT3 - 156 PD RC CARBO TAXOL - 156 PD RC CARBO TAXOL 01/30/2021 APPOINTMENT RCT3 - 156 PD RC CARBO TAXOL - 156 PD RC CARBO TAXOL 01/30/2021 APPOINTMENT RCT3 - 156 PD RC CARBO TAXOL - 156 PD RC CARBO TAXOL 01/23/2021 APPOINTMENT RCT3 - 156 PD RC CARBO TAXOL - 156 PD RC CARBO TAXOL 01/23/2021 APPOINTMENT RCT3 - 156 PD RC CARBO TAXOL - 156 PD RC CARBO TAXOL 01/23/2021 APPOINTMENT RCT3 - 156 PD RC CARBO TAXOL - 156 PD RC CARBO TAXOL 01/16/2021 APPOINTMENT RCT3 - 156 PD RC CARBO TAXOL - 156 PD RC CARBO TAXOL 01/16/2021 APPOINTMENT RCT3 - 156 PD RC CARBO TAXOL - 156 PD RC CARBO TAXOL 01/16/2021 APPOINTMENT RCT3 - 156 PD RC CARBO TAXOL - 156 PD RC CARBO TAXOL 01/09/2021 APPOINTMENT RCT3 - 156 PD RC CARBO TAXOL - 156 PD RC CARBO TAXOL 01/09/2021 APPOINTMENT RCT3 - 156 PD RC CARBO TAXOL - 156 PD RC CARBO TAXOL 01/09/2021 APPOINTMENT RCT3 - 156 PD RC CARBO TAXOL - 156 PD RC CARBO TAXOL 01/02/2021 APPOINTMENT RCT3 - 156 PD RC CARBO TAXOL - MOVING TO 01/02/2021 APPOINTMENT RCT3 - 156 PD RC CARBO TAXOL - MOVING TO 01/02/2021 APPOINTMENT RCT3 - 156 PD RC CARBO TAXOL - MOVING TO 12/24/2020 APPOINTMENT RCT3 - 156 PD RC CARBO TAXOL - 1ST TX; BUPD FULL 12/24/2020 APPOINTMENT RCT3 - 156 PD RC CARBO TAXOL - 1ST TX; BUPD FULL 12/24/2020 APPOINTMENT RCT3 - 156 PD RC CARBO TAXOL - 1ST TX; BUPD FULL 12/18/2020 APPOINTMENT TMSV - 156 SV VS EE - 156 SV VSEE 12/13/2020 APPOINTMENT RC - 156 RC - 15 6 RC 12/12/2020 APPOINTMENT PET - 156 PET - 12:15 CK-IN 12/10/2020 APPOINTMENT PET - 156 PET - 12:45 CK-IN 12/09/2020 APPOINTMENT RC - 66 S/P BRAI N RADIATION - 66 S/P BRAIN RADIATION 12/09/2020 LABORDER PET/CT scan, who le body 12/09/2020 LABORDER PET/CT scan, sku ll base/mid thigh 12/24/2020 LABORDER CMP 12/24/2020 LABORDER iSTAT creatinine panel 12/24/2020 LABORDER CBC w/ auto diff 01/02/2021 LABORDER CBC w/ auto diff 01/02/2021 LABORDER CMP 01/02/2021 LABORDER iSTAT creatinine panel 01/09/2021 LABORDER CMP 01/09/2021 LABORDER iSTAT creatinine panel 01/09/2021 LABORDER CBC w/ auto diff 01/16/2021 LABORDER CMP 01/16/2021 LABORDER iSTAT creatinine panel 01/16/2021 LABORDER CBC w/ auto diff 01/16/2021 LABORDER CBC w/ auto diff 01/16/2021 LABORDER CMP 01/23/2021 LABORDER CBC w/ auto diff 01/23/2021 LABORDER CMP 01/23/2021 LABORDER CMP 01/23/2021 LABORDER CBC w/ auto diff 01/23/2021 LABORDER iSTAT creatinine panel 01/30/2021 LABORDER iSTAT creatinine panel 01/30/2021 LABORDER CBC w/ auto diff 01/30/2021 LABORDER CBC w/ auto diff 01/30/2021 LABORDER CMP 01/30/2021 LABORDER iSTAT creatinine panel 02/07/2021 LABORDER CBC w/ auto diff 02/07/2021 LABORDER CMP 02/07/2021 LABORDER iSTAT creatinine panel 02/17/2021 LABORDER TSH w/ reflex to free T4 02/17/2021 LABORDER CBC w/ auto diff 02/17/2021 LABORDER CMP 03/17/2021 LABORDER CMP 03/17/2021 LABORDER TSH w/ reflex to free T4 03/17/2021 LABORDER CBC w/ auto diff 04/07/2021 LABORDER MRI cervical spi ne w/ contrast 04/14/2021 LABORDER TSH w/ reflex to free T4 04/14/2021 LABORDER CBC w/ auto diff 04/14/2021 LABORDER CMP 04/15/[address] chest/abdomen /pelvis w/ IV contrast 04/15/2021 LABORDER MRI brain w/ & w /o contrast 04/30/2021 LABORDER Urinalysis with Reflex Panel 05/28/2021 LABORDER TSH w/ reflex to free T4 05/28/2021 LABORDER CBC w/ auto diff 05/28/2021 LABORDER CMP 05/28/2021 LABORDER Herpes simplex v irus type 1/2 qualitative DNA PCR panel 05/30/2021 LABORDER Urinalysis with Reflex Panel 07/02/2021 LABORDER CMP 07/02/2021 LABORDER TSH w/ reflex to free T4 07/02/2021 LABORDER CBC w/ auto diff 07/28/[address] chest/abdomen /pelvis w/ IV contrast 07/28/2021 LABORDER MRI brain w/ & w /o contrast 07/30/2021 LABORDER Hepatitis C anti body panel 07/30/2021 LABORDER TSH w/ reflex to free T4 07/30/2021 LABORDER CBC w/ auto diff 07/30/2021 LABORDER CMP 08/27/2021 LABORDER TSH w/ reflex to free T4 08/27/2021 LABORDER CMP 08/27/[address] chest/abdomen /pelvis w/ IV contrast 08/27/2021 LABORDER CBC w/ auto diff 09/05/2021 LABORDER PET/CT scan, sku ll base/mid thigh 09/24/2021 LABORDER MRI brain w/ & w /o contrast 09/26/2021 LABORDER CBC w/ auto diff 09/26/2021 LABORDER TSH w/ reflex to free T4 09/26/2021 LABORDER CMP 10/24/2021 LABORDER TSH w/ reflex to free T4 10/24/2021 LABORDER CMP 10/24/2021 LABORDER CBC w/ auto diff 11/21/2021 LABORDER CBC w/ auto diff 11/21/2021 LABORDER CMP 11/21/2021 LABORDER TSH w/ reflex to free T4 12/19/2021 LABORDER CBC w/ auto diff 12/19/2021 LABORDER TSH w/ reflex to free T4 12/19/2021 LABORDER CMP 12/19/2021 LABORDER PET/CT scan, sku ll base/mid thigh 01/09/2022 LABORDER MRI brain w/ & w /o contrast 01/16/2022 LABORDER CMP 01/16/2022 LABORDER TSH w/ reflex to free T4 01/16/2022 LABORDER CBC w/ auto diff 02/20/2022 LABORDER TSH w/ reflex to free T4 04/18/2022 LABORDER MRI brain w/ & w /o contrast 04/21/2022 LABORDER MRI thoracic spi ne w/ contrast 04/21/2022 LABORDER MRI lumbar spine w/ & w/o contrast 04/23/2022 LABORDER PET/CT scan, sku ll base/mid thigh 05/08/2022 LABORDER CBC w/ auto diff 05/08/2022 LABORDER CMP 05/08/2022 LABORDER TSH w/ reflex to free T4 07/23/2022 LABORDER TSH w/ reflex to free T4 07/23/2022 LABORDER CBC w/ auto diff 07/23/2022 LABORDER CMP 07/23/2022 LABORDER MRI brain w/ & w /o contrast 07/24/2022 LABORDER PET/CT scan, sku ll base/mid thigh 11/02/[address] chest/abdomen /pelvis w/ IV contrast 11/03/2022 LABORDER CBC w/ auto diff 11/03/2022 LABORDER MRI brain w/ & w /o contrast 11/03/2022 LABORDER CMP 11/03/2022 LABORDER PET/CT scan, sku ll base/mid thigh 02/08/2023 LABORDER CBC w/ auto diff 02/08/2023 LABORDER TSH w/ reflex to free T4 02/08/2023 LABORDER CMP 02/08/2023 LABORDER MRI brain w/ & w /o contrast 02/08/[address] chest/abdomen /pelvis w/ IV contrast 08/10/2023 LABORDER CBC w/ auto diff [...] OUTSIDE TEST 5 MIN Encounters Date Name 12/09/2020 Anemia 12/09/2020 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 12/09/2020 Counseling 12/09/2020 Drug-induced neutrop enia (disorder) 12/09/2020 Drug-induced rash 12/09/2020 Dysphagia 12/09/2020 Hypothyroidism (diso rder) 12/09/2020 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 Midback pain 12/09/2020 Neck pain 12/09/2020 Non-small cell lung cancer (disorder) 12/09/2020 Rash 12/09/2020 Rash 12/09/2020 UTI - Lower urinary tract infection Immunizations Date Name Route Dose Instructions Refusal Reason Stat us Flu vaccine - Adult Patient declined/rejected Not Administered Covid-19 vaccine (Pfizer) Completed Flu vaccine - Adult Comp leted Covid-19 vaccine (Pfizer) Completed Flu vaccine - Adult Patient declined/rejected Not Administered Flu vaccine - Adult Patient declined/rejected Not Administered Diagnostic Results Date Type Test Units Lower Limit Upper Limit Result Flag Comments Status Ordered By Specimen Source Lab Address 12/24 iSTAT creat inine panel Creat inine , iSTAT mg/dl 0.6 1.3 0.7 FINAL [facility], [address] [place] [address] [place] [address] [phone] Phone: () - 12/24 iSTAT creat inine panel GFR estim ate ml/min /1.73m ^2 86.7 GFR is calculate d using the CKD-EPI equation. FINAL Oziel angelo [facility], [address] [place] [address] [address] [facility] [phone] Phone: () - 12/24 CMP Album in g/dL 3.2 5.2 4.3 FINAL Oziel angelo [facility], [facility] [address] [facility] [address] [place] [address] [phone] Phone: () - 12/24 CMP Alkal ine phosp hatas e U/L 46.0 116.0 68 FINAL Oziel angelo [facility], [address] [facility] [address] [place] [address] [phone] Phone: () - 12/24 CMP ALT/S GPT U/L 7.0 40.0 12 FINAL Oziel angelo [facility], [address] [facility] [address] [place] [address] [phone] 0 Phone: () - 12/24 CMP AST/S GOT U/L 13.0 40.0 19 FINAL Oziel angelo [place] [address] [phone] 0 Phone: () - 12/24 CMP BUN mg/dL 9.0 23.0 17 FINAL Oziel angelo [facility] [address] [phone] 0 Phone: () - 12/24 CMP Calci um mg/dL 8.7 10.4 10.0 FINAL Oziel angelo [place] [address] [phone] 0 Phone: () - 12/24 CMP Chlor vipin mmol/L 96.0 114.0 107 FINAL Oziel angelo [place] [address] [phone] 0 Phone: () - 12/24 CMP CO2 mmol/L 20.0 31.0 20 The expected total allowable error for CO2 is 5.6%. We have seen up to 10% differenc e in values if reported at the end of the 96 hour stability window. Please consider the clinical significa nce of a 2.0-2.5 mmol/L lower reported CO2 value if reported at the end of the 96 hour stability window. FINAL Oziel angelo [facility], [facility] [address] [phone] 0 Phone: () - 12/24 CMP Creat inine mg/dL 0.5 1.2 0.85 FINAL Oziel angelo [place] [address] [phone] Phone: () - 12/24 CMP GFR estim ate ml/min /1.73m ^2 68.5 GFR is calculate d using the CKD-EPI equation. FINAL Oziel angelo [place] [address] [phone] 0 Phone: () - 12/24 CMP Gluco se mg/dL 73.0 126.0 207 High FINAL Oziel angelo [place] [address] [phone] 0 Phone: () - 12/24 CMP Potas sium mmol/L 3.5 5.1 4.3 FINAL [facility]iel angelo [facility], [address] [facility] [phone] Phone: () - 12/24 CMP Sodiu m mmol/L 136.0 145.0 139 FINAL Oziel angelo [facility], [address] [facility] [phone] 0 Phone: () - 12/24 CMP Bilir ubin, total mg/dL 0.3 1.2 0.2 Low FINAL [facility]iel angelo [facility], [address] [place] [phone] Phone: () - 12/24 CMP Total prote in g/dL 5.7 8.2 7.1 FINAL Oziel angelo [facility], [address] [facility] [phone] 0 Phone: () - 12/24 CBC w/ auto diff WBC K/uL 3.0 8.9 5.3 FINAL Oziel angelo [facility] - [place], [address] [facility] [place] [phone] 0 Phone: () - 12/24 CBC w/ auto diff HGB g/dL 11.3 15.2 12.5 FINAL [facility] - [place], [address] [facility] [place] [phone] 0 Phone: () - 12/24 CBC w/ auto diff PLT K/uL 113.0 364.0 212 FINAL [facility] - [place], [address] [place] [phone] 0 Phone: () - 12/24 CBC w/ auto diff Dave # (ANC) K/uL 1.6 6.6 4.7 FINAL [facility] - [place], [address] [place] [phone] 0 Phone: () - 12/24 CBC w/ auto diff Dave % % 43.0 74.0 88.2 High FINAL [facility] [facility] - [place], [address] [place] [phone] 0 Phone: () - 12/24 CBC w/ auto diff IG % % 0.0 0.5 0.8 High FINAL [facility] - [place], [address] [place] [phone] 0 Phone: () - 12/24 CBC w/ auto diff IG # K/uL 0.0 0.03 0.04 High FINAL [facility] - [place], [address] [place] [phone] 0 Phone: () - 12/24 CBC w/ auto diff LY % % 14.0 41.0 10.0 Low FINAL [facility] - [place], [address] [place] [phone] 0 Phone: () - 12/24 CBC w/ auto diff MO % % 6.0 15.0 0.8 Low FINAL [facility] - [place], [address] [place] [phone] 0 Phone: () - 12/24 CBC w/ auto diff EO % % 0.0 7.0 0.0 FINAL [facility] - [place], [address] [place] [phone] 0 Phone: () - 12/24 CBC w/ auto diff BA % % 0.0 2.0 0.2 FINAL [facility] - [place], [address] [place] [phone] 0 Phone: () - 12/24 CBC w/ auto diff LY # K/uL 0.4 3.6 0.5 FINAL [facility] - [place], [address] [place] [phone] 0 Phone: () - 12/24 CBC w/ auto diff MO # K/uL 0.2 1.3 0.0 Low FINAL [facility] - [place], [address] [place] [phone] 0 Phone: () - 12/24 CBC w/ auto diff EO # K/uL 0.0 0.6 0.0 FINAL [facility] - [place], [address] [place] [phone] 0 Phone: () - 12/24 CBC w/ auto diff BA # K/uL 0.0 0.2 0.0 FINAL [facility] - [place], [address] [place] [phone] 0 Phone: () - 12/24 CBC w/ auto diff NRBC % #/100W BC 0.0 0.2 0.0 FINAL [facility] - [place], [address] [place] [phone] 0 Phone: () - 12/24 CBC w/ auto diff RBC M/uL 3.9 5.1 3.82 Low FINAL [facility] - [place], [address] [place] [phone] 0 Phone: () - 12/24 CBC w/ auto diff HCT % 35.0 48.0 36.9 FINAL [facility] - [place], [address] [place] [phone] 0 Phone: () - 12/24 CBC w/ auto diff MCV fL 80.0 104.0 96.6 FINAL [facility] - [place], [address] [place] [phone] 0 Phone: () - 12/24 CBC w/ auto diff MCH pg 26.0 35.0 32.7 FINAL [facility] - [place], [address] [place] [phone] 0 Phone: () - 12/24 CBC w/ auto diff MCHC g/dL 30.0 35.0 33.9 FINAL [facility] - [place], [address] [place] [phone] 0 Phone: () - 12/24 CBC w/ auto diff MPV fL 9.5 13.4 9.6 FINAL [facility] - [place], [address] [place] [phone] 0 Phone: () - 12/24 CBC w/ auto diff RDW % 11.4 16.1 12.90 FINAL [facility] - [place], [address] [place] [phone] 0 Phone: () - 01/02 CBC w/ auto diff WBC K/uL 3.0 8.9 4.4 FINAL [facility] - [place], [address] [place] [phone] 0 Phone: () - 01/02 CBC w/ auto diff HGB g/dL 11.3 15.2 11.7 FINAL [facility] - [place], [address] [place] [phone] 0 Phone: () - 01/02 CBC w/ auto diff PLT K/uL 113.0 364.0 209 FINAL [facility] - [place], [address] [place] [phone] 0 Phone: () - 01/02 CBC w/ auto diff Dave # (ANC) K/uL 1.6 6.6 4.0 FINAL [facility] - [place], [address] [place] [phone] 0 Phone: () - 01/02 CBC w/ auto diff Dave % % 43.0 74.0 91.7 High FINAL L[facility] - [place], [address] [place] [phone] 0 Phone: () - 01/02 CBC w/ auto diff IG % % 0.0 0.5 0.7 High FINAL Lia [facility] - [place], [address] [place] [phone] 0 Phone: () - 01/02 CBC w/ auto diff IG # K/uL 0.0 0.03 0.03 FINAL L[facility] - [place], [address] [place] [phone] 0 Phone: () - 01/02 CBC w/ auto diff LY % % 14.0 41.0 6.7 Low FINAL L[facility] - [place], [address] [place] [phone] 0 Phone: () - 01/02 CBC w/ auto diff MO % % 6.0 15.0 0.7 Low FINAL Lia [facility] - [place], [address] [place] [phone] 0 Phone: () - 01/02 CBC w/ auto diff EO % % 0.0 7.0 0.0 FINAL [facility] - [place], [address] [place] [phone] 0 Phone: () - 01/02 CBC w/ auto diff BA % % 0.0 2.0 0.2 FINAL [facility] - [place], [address] [place] [phone] 0 Phone: () - 01/02 CBC w/ auto diff LY # K/uL 0.4 3.6 0.3 Low FINAL [facility] - [place], [address] [place] [phone] 0 Phone: () - 01/02 CBC w/ auto diff MO # K/uL 0.2 1.3 0.0 Low FINAL [facility] - [place], [address] [place] [phone] 0 Phone: () - 01/02 CBC w/ auto diff EO # K/uL 0.0 0.6 0.0 FINAL Lia [facility] - [place], [address] [facility] [address] [place] [phone] 0 Phone: () - 01/02 CBC w/ auto diff BA # K/uL 0.0 0.2 0.0 FINAL Lia [facility] - [place], [address] [facility] [address] [place] [phone] 0 Phone: () - 01/02 CBC w/ auto diff NRBC % #/100W BC 0.0 0.2 0.0 FINAL Lia [facility] - [place], [address] [facility] [address] [place] [phone] 0 Phone: () - 01/02 CBC w/ auto diff RBC M/uL 3.9 5.1 3.56 Low FINAL Lia angelo [facility] - [place], [address] [facility] [address] [place] [phone] 0 Phone: () - 01/02 CBC w/ auto diff HCT % 35.0 48.0 34.2 Low FINAL Lia [facility] - [place], [address] [facility] [address] [place] [phone] 0 Phone: () - 01/02 CBC w/ auto diff MCV fL 80.0 104.0 96.1 FINAL Lia [facility] - [place], [address] [facility] [address] [place] [phone] 0 Phone: () - 01/02 CBC w/ auto diff MCH pg 26.0 35.0 32.9 FINAL Lia [facility] - [place], [address] [facility] [address] [place] [phone] 0 Phone: () - 01/02 CBC w/ auto diff MCHC g/dL 30.0 35.0 34.2 FINAL L[facility] - [place], [address] [place] [phone] 0 Phone: () - 01/02 CBC w/ auto diff MPV fL 9.5 13.4 9.5 FINAL Lia angel[facility] - [place], [address] [place] [phone] 0 Phone: () - 01/02 CBC w/ auto diff RDW % 11.4 16.1 12.80 FINAL [facility]ia angel[facility] - [place], [address] [place] [phone] 0 Phone: () - 01/02 iSTAT creat inine panel Creat inine , iSTAT mg/dl 0.6 1.3 0.8 FINAL Lia angel[facility] - [place], [address] [facility] [address] [place] [phone] 0 Phone: () - 01/02 iSTAT creat inine panel GFR estim ate ml/min /1.73m ^2 73.7 GFR is calculate d using the CKD-EPI equation. FINAL Lia angel[facility] - [place], [address] [facility] [address] [place] [phone] 0 Phone: () - 01/02 CMP Album in g/dL 3.2 5.2 4.2 FINAL Lia angelo [facility], [address] [facility] [address] [facility] [phone] 0 Phone: () - 01/02 CMP Alkal ine phosp hatas e U/L 46.0 116.0 58 FINAL Lia angelo [facility], [address] [facility] [phone] 0 Phone: () - 01/02 CMP ALT/S GPT U/L 7.0 40.0 13 FINAL Lia angelo [facility], [address] [facility] [phone] 0 Phone: () - 01/02 CMP AST/S GOT U/L 13.0 40.0 20 FINAL [place] [address] [phone] 0 Phone: () - 01/02 CMP BUN mg/dL 9.0 23.0 17 FINAL [place] [address] [phone] 0 Phone: () - 01/02 CMP Calci um mg/dL 8.7 10.4 10.7 High FINAL [place] [address] [phone] 0 Phone: () - 01/02 CMP Chlor vipin mmol/L 96.0 114.0 109 FINAL [place] [address] [phone] 0 Phone: () - 01/02 CMP CO2 mmol/L 20.0 31.0 24 The expected total allowable error for CO2 is 5.6%. We have seen up to 10% differenc e in values if reported at the end of the 96 hour stability window. Please consider the clinical significa nce of a 2.0-2.5 mmol/L lower reported CO2 value if reported at the end of the 96 hour stability window. FINAL [place] [address] [phone] 0 Phone: () - 01/02 CMP Creat inine mg/dL 0.5 1.2 0.76 FINAL [place] [address] [phone] 0 Phone: () - 01/02 CMP GFR estim ate ml/min /1.73m ^2 78.4 GFR is calculate d using the CKD-EPI equation. FINAL [place] [address] [phone] 0 Phone: () - 01/02 CMP Gluco se mg/dL 73.0 126.0 122 FINAL [place] [address] [phone] 0 Phone: () - 01/02 CMP Potas sium mmol/L 3.5 5.1 4.4 FINAL Lia Tilley a [facility], [address] [place] [phone] 0 Phone: () - 01/02 CMP Sodiu m mmol/L 136.0 145.0 140 FINAL Lia angelo [facility], [address] [place] [phone] 0 Phone: () - 01/02 CMP Bilir ubin, total mg/dL 0.3 1.2 0.3 FINAL Lia angelo [facility], [address] [place] [phone] 0 Phone: () - 01/02 CMP Total prote in g/dL 5.7 8.2 6.8 FINAL Lia Tilley gi [facility], [address] [place] [phone] 0 Phone: () - 01/09 Smear revie w panel CBC Smear revie w comme nts Consist ent with reporte d results FINAL Lia angel[facility] - [place], [address] [facility] [place] [phone] 0 Phone: () - 01/09 CBC w/ auto diff WBC K/uL 3.0 8.9 4.8 FINAL Lia angel[facility] - [place], [address] [facility] [place] [phone] 0 Phone: () - 01/09 CBC w/ auto diff HGB g/dL 11.3 15.2 11.8 FINAL Lia [facility] - [place], [address] [place] [phone] 0 Phone: () - 01/09 CBC w/ auto diff PLT K/uL 113.0 364.0 165 FINAL Lia [facility] - [place], [address] [place] [phone] 0 Phone: () - 01/09 CBC w/ auto diff Dave # (ANC) K/uL 1.6 6.6 4.4 FINAL [facility] [place], [address] [place] [phone] 0 Phone: () - 01/09 CBC w/ auto diff Dave % % 43.0 74.0 91.5 High FINAL [facility] - [place], [address] [place] [id number] 0 Phone: () - 01/09 CBC w/ auto diff IG % % 0.0 0.5 1.5 High FINAL [facility] [place], [address] [place] [phone] 0 Phone: () - 01/09 CBC w/ auto diff IG # K/uL 0.0 0.03 0.07 High FINAL [facility] [place], [address] [place] [id number] 0 Phone: () - 01/09 CBC w/ auto diff LY % % 14.0 41.0 5.5 Low FINAL [facility] [place], [address] [place] [id number] 0 Phone: () - 01/09 CBC w/ auto diff MO % % 6.0 15.0 1.3 Low FINAL [facility] [place], [address] [place] [id number] 0 Phone: () - 01/09 CBC w/ auto diff EO % % 0.0 7.0 0.0 FINAL [facility] [place], [address] [place] [id number] 0 Phone: () - 01/09 CBC w/ auto diff BA % % 0.0 2.0 0.2 FINAL [facility] [place], [address] [place] [id number] 0 Phone: () - 01/09 CBC w/ auto diff LY # K/uL 0.4 3.6 0.3 Low FINAL [facility] [place], [address] [place] [id number] 0 Phone: () - 01/09 CBC w/ auto diff MO # K/uL 0.2 1.3 0.1 Low FINAL [facility] [place], [address] [place] [id number] 0 Phone: () - 01/09 CBC w/ auto diff EO # K/uL 0.0 0.6 0.0 FINAL [facility] [place], [address] [place] [id number] 0 Phone: () - 01/09 CBC w/ auto diff BA # K/uL 0.0 0.2 0.0 FINAL [facility] [place], [address] [place] [id number] 0 Phone: () - 01/09 CBC w/ auto diff NRBC % #/100W BC 0.0 0.2 0.0 FINAL [facility] [place], [address] [place] [id number] 0 Phone: () - 01/09 CBC w/ auto diff RBC M/uL 3.9 5.1 3.56 Low FINAL [facility] [place], [address] [place] [id number] 0 Phone: () - 01/09 CBC w/ auto diff HCT % 35.0 48.0 34.2 Low FINAL [facility] [place], [address] [place] [id number] 0 Phone: () - 01/09 CBC w/ auto diff MCV fL 80.0 104.0 96.1 FINAL [facility] [place], [address] [place] [id number] 0 Phone: () - 01/09 CBC w/ auto diff MCH pg 26.0 35.0 33.1 FINAL [facility] [place], [address] [facility] [address] [place] [id number] 0 Phone: () - 01/09 CBC w/ auto diff MCHC g/dL 30.0 35.0 34.5 FINAL [facility] [place], [address] [facility] [address] [place] [id number] 0 Phone: () - 01/09 CBC w/ auto diff MPV fL 9.5 13.4 9.4 Low FINAL [facility] [place], [address] [place] [address] [address] [place] [id number] 0 Phone: () - 01/09 CBC w/ auto diff RDW % 11.4 16.1 12.90 FINAL [facility] [place], [address] [facility] [address] [place] [id number] 0 Phone: () - 01/09 CBC w/ auto diff Auto CBC comme nts Slide review to follow FINAL [facility] [place], [address] [place] [address] [address] [place] [id number] 0 Phone: () - 01/09 CMP Album in g/dL 3.2 5.2 4.2 [facility] [address] [place] [address] [id number] 0 Phone: () - 01/09 CMP Alkal ine phosp hatas e U/L 46.0 116.0 65 [facility], [address] [place] [id number] 0 Phone: () - 01/09 CMP ALT/S GPT U/L 7.0 40.0 16 [facility], [address] [place] [id number] 0 Phone: () - 01/09 CMP AST/S GOT U/L 13.0 40.0 19 FINAL [place] [address] [id number] 0 Phone: () - 01/09 CMP BUN mg/dL 9.0 23.0 19 FINAL [place] [address] [id number] 0 Phone: () - 01/09 CMP Calci um mg/dL 8.7 10.4 10.4 FINAL [place] [address] [id number] 0 Phone: () - 01/09 CMP Chlor vipin mmol/L 96.0 114.0 106 FINAL [place] [address] [id number] 0 Phone: () - 01/09 CMP CO2 mmol/L 20.0 31.0 22 The expected total allowable error for CO2 is 5.6%. We have seen up to 10% differenc e in values if reported at the end of the 96 hour stability window. Please consider the clinical significa nce of a 2.0-2.5 mmol/L lower reported CO2 value if reported at the end of the 96 hour stability window. FINAL [place] [address] [phone] 0 Phone: () - 01/09 CMP Creat inine mg/dL 0.5 1.2 0.78 FINAL [place] [address] [id number] 0 Phone: () - 01/09 CMP GFR estim ate ml/min /1.73m ^2 76.0 GFR is calculate d using the CKD-EPI equation. FINAL [place] [address] [id number] 0 Phone: () - 01/09 CMP Gluco se mg/dL 73.0 126.0 129 High FINAL [place] [address] [id number] 0 Phone: () - 01/09 CMP Potas sium mmol/L 3.5 5.1 4.5 FINAL Lia angelo [facility], [address] [facility] [id number] 0 Phone: () - 01/09 CMP Sodiu m mmol/L 136.0 145.0 139 FINAL Lia angelo [facility], [address] [place] [address] [id number] 0 Phone: () - 01/09 CMP Bilir ubin, total mg/dL 0.3 1.2 0.4 FINAL Lia angelo [facility], [address] [facility] [id number] 0 Phone: () - 01/09 CMP Total prote in g/dL 5.7 8.2 6.7 FINAL Lia angelo [facility], [address] [place] [address] [id number] 0 Phone: () - 01/09 iSTAT creat inine panel Creat inine , iSTAT mg/dl 0.6 1.3 0.7 FINAL [facility] [place] , [address] [place] [address] [place] [address] [id number] 0 Phone: () - 01/09 iSTAT creat inine panel GFR estim ate ml/min /1.73m ^2 86.6 GFR is calculate d using the CKD-EPI equation. FINAL [facility] [place] , [address] [place] [address] [id number] 0 Phone: () - 01/16 iSTAT creat inine panel Creat inine , iSTAT mg/dl 0.6 1.3 0.8 FINAL [facility] [place] , [address] [place], [place] [address] [phone] 0 Phone: () - 01/16 iSTAT creat inine panel GFR estim ate ml/min /1.73m ^2 73.7 GFR is calculate d using the CKD-EPI equation. FINAL [facility] [place], [address] [place] [id number] 0 Phone: () - 01/16 Smear revie w panel CBC Smear revie w comme nts Consist ent with reporte d results FINAL [facility] [place], [address] [place] [id number] 0 Phone: () - 01/16 CBC w/ auto diff LY % % 14.0 41.0 4.0 Low FINAL [facility] [place], [address] [place] [id number] 0 Phone: () - 01/16 CBC w/ auto diff MO % % 6.0 15.0 1.6 Low FINAL [facility] [place], [address] [place] [id number] 0 Phone: () - 01/16 CBC w/ auto diff EO % % 0.0 7.0 0.0 FINAL [facility] [place], [address] [place] [id number] 0 Phone: () - 01/16 CBC w/ auto diff BA % % 0.0 2.0 0.2 FINAL [facility] [place], [address] [place] [id number] 0 Phone: () - 01/16 CBC w/ auto diff LY # K/uL 0.4 3.6 0.2 Low FINAL [facility] [place], [address] [place] [id number] 0 Phone: () - 01/16 CBC w/ auto diff MO # K/uL 0.2 1.3 0.1 Low FINAL [facility] [place], [address] [place] [id number] 0 Phone: () - 01/16 CBC w/ auto diff EO # K/uL 0.0 0.6 0.0 FINAL [facility] [place], [address] [place] [id number] 0 Phone: () - 01/16 CBC w/ auto diff BA # K/uL 0.0 0.2 0.0 FINAL [facility] [place], [address] [place] [id number] 0 Phone: () - 01/16 CBC w/ auto diff NRBC % #/100W BC 0.0 0.2 0.0 FINAL [facility] [place], [address] [place] [id number] 0 Phone: () - 01/16 CBC w/ auto diff RBC M/uL 3.9 5.1 3.30 Low FINAL [facility] [place], [address] [place] [id number] 0 Phone: () - 01/16 CBC w/ auto diff HCT % 35.0 48.0 32.8 Low FINAL [facility] [place], [address] [place] [id number] 0 Phone: () - 01/16 CBC w/ auto diff MCV fL 80.0 104.0 99.4 FINAL [facility] [place], [address] [place] [id number] 0 Phone: () - 01/16 CBC w/ auto diff MCH pg 26.0 35.0 33.3 FINAL [facility] [place], [address] [place] [id number] 0 Phone: () - 01/16 CBC w/ auto diff MCHC g/dL 30.0 35.0 33.5 FINAL [facility] [place], [address] [place] [id number] 0 Phone: () - 01/16 CBC w/ auto diff MPV fL 9.5 13.4 9.2 Low FINAL [facility] [place], [address] [place] [id number] 0 Phone: () - 01/16 CBC w/ auto diff RDW % 11.4 16.1 13.90 FINAL [facility] [place], [address] [place] [id number] 0 Phone: () - 01/16 CBC w/ auto diff Auto CBC comme nts Slide review to follow FINAL [facility] [place], [address] [facility] [address] [place] [id number] 0 Phone: () - 01/16 CBC w/ auto diff HGB g/dL 11.3 15.2 11.0 Low FINAL [facility] [place], [address] [facility] [address] [place] [id number] 0 Phone: () - 01/16 CBC w/ auto diff PLT K/uL 113.0 364.0 144 FINAL [facility] [place], [address] [facility] [address] [place] [id number] 0 Phone: () - 01/16 CBC w/ auto diff Dave # (ANC) K/uL 1.6 6.6 4.2 FINAL [facility] [place], [address] [place] [id number] 0 Phone: () - 01/16 CBC w/ auto diff Dave % % 43.0 74.0 92.4 High FINAL [facility] [place], [address] [place] [id number] 0 Phone: () - 01/16 CBC w/ auto diff IG % % 0.0 0.5 1.8 High FINAL [facility] [place], [address] [place] [id number] 0 Phone: () - 01/16 CBC w/ auto diff IG # K/uL 0.0 0.03 0.08 High FINAL Lia angel[facility], [address] [facility] [address] [facility] [place] [id number] 0 Phone: () - 01/16 CBC w/ auto diff WBC K/uL 3.0 8.9 4.5 FINAL [facility]ia angel[facility] [place], [address] [facility] [address] [facility] [place] [id number] 0 Phone: () - 01/16 CMP Album in g/dL 3.2 5.2 3.9 FINAL Lia Delgado [place] [address] [place] [address] [id number] 0 Phone: () - 01/16 CMP Alkal ine phosp hatas e U/L 46.0 116.0 62 FINAL [facility] Delgado [place] [address] [facility] [address] [place] [address] [id number] 0 Phone: () - 01/16 CMP ALT/S GPT U/L 7.0 40.0 19 FINAL [place] [address] [address] [facility] [address] [id number] 0 Phone: () - 01/16 CMP AST/S GOT U/L 13.0 40.0 18 FINAL [place] [address] [place] [address] [id number] 0 Phone: () - 01/16 CMP BUN mg/dL 9.0 23.0 21 FINAL [place] [address] [place] [address] [id number] 0 Phone: () - 01/16 CMP Calci um mg/dL 8.7 10.4 10.3 FINAL [place] [address] [place] [address] [id number] 0 Phone: () - 01/16 CMP Chlor vipin mmol/L 96.0 114.0 108 FINAL [place] [address] [id number] 0 Phone: () - 01/16 CMP CO2 mmol/L 20.0 31.0 23 The expected total allowable error for CO2 is 5.6%. We have seen up to 10% differenc e in values if reported at the end of the 96 hour stability window. Please consider the clinical significa nce of a 2.0-2.5 mmol/L lower reported CO2 value if reported at the end of the 96 hour stability window. FINAL Lia Delgado [address] [id number] 0 Phone: () - 01/16 CMP Creat inine mg/dL 0.5 1.2 0.78 FINAL Lia [address] [phone] 0 Phone: () - 01/16 CMP GFR estim ate ml/min /1.73m ^2 76.0 GFR is calculate d using the CKD-EPI equation. FINAL Lia [address] [phone] 0 Phone: () - 01/16 CMP Gluco se mg/dL 73.0 126.0 138 High FINAL Lia [place] [address] [id number] 0 Phone: () - 01/16 CMP Potas sium mmol/L 3.5 5.1 4.2 FINAL Lia [address] [id number] 0 Phone: () - 01/16 CMP Sodiu m mmol/L 136.0 145.0 [address] [id number] 0 Phone: () - 01/16 CMP Bilir ubin, total mg/dL 0.3 1.2 0.3 FINAL Lia [place] [address] [id number] 0 Phone: () - 01/16 CMP Total prote in g/dL 5.7 8.2 6.3 FINAL [facility] [place], [address] [place] [id number] 0 Phone: () - 01/23 Smear revie w panel CBC Smear revie w comme nts Consist ent with reporte d results FINAL [facility] [place], [address] [place] [id number] 0 Phone: () - 01/23 iSTAT creat inine panel Creat inine , iSTAT mg/dl 0.6 1.3 0.8 FINAL [facility] [place], [address] [place] [id number] 0 Phone: () - 01/23 iSTAT creat inine panel GFR estim ate ml/min /1.73m ^2 73.7 GFR is calculate d using the CKD-EPI equation. FINAL [facility] [place], [address] [place] [id number] 0 Phone: () - 01/23 CBC w/ auto diff WBC K/uL 3.0 8.9 2.4 Low FINAL [facility] [place], [address] [place] [id number] 0 Phone: () - 01/23 CBC w/ auto diff HGB g/dL 11.3 15.2 10.4 Low FINAL [facility] [place], [address] [place] [id number] 0 Phone: () - 01/23 CBC w/ auto diff PLT K/uL 113.0 364.0 109 Low FINAL [facility] [place], [address] [place] [id number] 0 Phone: () - 01/23 CBC w/ auto diff Dave # (ANC) K/uL 1.6 6.6 2.2 FINAL [facility] [place], [address] [place] [id number] 0 Phone: () - 01/23 CBC w/ auto diff Dave % % 43.0 74.0 90.0 High FINAL [facility] [place], [address] [place] [id number] 0 Phone: () - 01/23 CBC w/ auto diff IG % % 0.0 0.5 0.8 High FINAL [facility] [place], [address] [place] [id number] 0 Phone: () - 01/23 CBC w/ auto diff IG # K/uL 0.0 0.03 0.02 FINAL [facility] [place], [address] [place] [id number] 0 Phone: () - 01/23 CBC w/ auto diff LY % % 14.0 41.0 7.1 Low FINAL [facility] [place], [address] [place] [id number] 0 Phone: () - 01/23 CBC w/ auto diff MO % % 6.0 15.0 2.1 Low FINAL [facility] [place], [address] [place] [id number] 0 Phone: () - 01/23 CBC w/ auto diff EO % % 0.0 7.0 0.0 FINAL [facility] [place], [address] [place] [id number] 0 Phone: () - 01/23 CBC w/ auto diff BA % % 0.0 2.0 0.0 FINAL [facility] [place], [address] [place] [id number] 0 Phone: () - 01/23 CBC w/ auto diff LY # K/uL 0.4 3.6 0.2 Low FINAL [facility] [place], [address] [place] [id number] 0 Phone: () - 01/23 CBC w/ auto diff MO # K/uL 0.2 1.3 0.1 Low FINAL [facility] [place], [address] [place] [id number] 0 Phone: () - 01/23 CBC w/ auto diff EO # K/uL 0.0 0.6 0.0 FINAL [facility] [place], [address] [place] [id number] 0 Phone: () - 01/23 CBC w/ auto diff BA # K/uL 0.0 0.2 0.0 FINAL [facility] [place], [address] [place] [id number] 0 Phone: () - 01/23 CBC w/ auto diff NRBC % #/100W BC 0.0 0.2 0.0 FINAL [facility] [place], [address] [place] [id number] 0 Phone: () - 01/23 CBC w/ auto diff RBC M/uL 3.9 5.1 3.14 Low FINAL [facility] [place], [address] [place] [id number] 0 Phone: () - 01/23 CBC w/ auto diff HCT % 35.0 48.0 31.4 Low FINAL [facility] [place], [address] [place] [id number] 0 Phone: () - 01/23 CBC w/ auto diff MCV fL 80.0 104.0 100.0 FINAL [facility] [place], [address] [place] [id number] 0 Phone: () - 01/23 CBC w/ auto diff MCH pg 26.0 35.0 33.1 FINAL [facility] [place], [address] [facility] [address] [place] [id number] 0 Phone: () - 01/23 CBC w/ auto diff MCHC g/dL 30.0 35.0 33.1 FINAL [facility] [place], [address] [facility] [address] [place] [id number] 0 Phone: () - 01/23 CBC w/ auto diff MPV fL 9.5 13.4 8.7 Low FINAL [facility] [place], [address] [facility] [address] [place] [id number] 0 Phone: () - 01/23 CBC w/ auto diff RDW % 11.4 16.1 15.00 FINAL [facility] [place], [address] [facility] [address] [place] [id number] 0 Phone: () - 01/23 CBC w/ auto diff Auto CBC comme nts Slide review to follow FINAL [facility] [place], [address] [place] [address] [address] [place] [id number] 0 Phone: () - 01/23 CMP Album in g/dL 3.2 5.2 3.8 FINAL [facility], [address] [facility] [id number] 0 Phone: () - 01/23 CMP Alkal ine phosp hatas e U/L 46.0 116.0 61 FINAL [facility], [address] [place] [id number] 0 Phone: () - 01/23 CMP ALT/S GPT U/L 7.0 40.0 24 FINAL [facility], [address] [place] [id number] 0 Phone: () - 01/23 CMP AST/S GOT U/L 13.0 40.0 21 FINAL [place] [address] [id number] 0 Phone: () - 01/23 CMP BUN mg/dL 9.0 23.0 22 FINAL [facility] [address] [id number] 0 Phone: () - 01/23 CMP Calci um mg/dL 8.7 10.4 9.1 FINAL [place] [address] [id number] 0 Phone: () - 01/23 CMP Chlor vipin mmol/L 96.0 114.0 110 FINAL [place] [address] [id number] 0 Phone: () - 01/23 CMP CO2 mmol/L 20.0 31.0 23 The expected total allowable error for CO2 is 5.6%. We have seen up to 10% differenc e in values if reported at the end of the 96 hour stability window. Please consider the clinical significa nce of a 2.0-2.5 mmol/L lower reported CO2 value if reported at the end of the 96 hour stability window. FINAL [place] [address] [id number] 0 Phone: () - 01/23 CMP Creat inine mg/dL 0.5 1.2 0.74 FINAL [place] [address] [id number] 0 Phone: () - 01/23 CMP GFR estim ate ml/min /1.73m ^2 81.0 GFR is calculate d using the CKD-EPI equation. FINAL [place] [address] [id number] 0 Phone: () - 01/23 CMP Gluco se mg/dL 73.0 126.0 148 High FINAL [place] [address] [id number] 0 Phone: () - 01/23 CMP Potas sium mmol/L 3.5 5.1 4.4 FINAL [facility] [address] [place] [address] [id number] 0 Phone: () - 01/23 CMP Sodiu m mmol/L 136.0 145.0 141 FINAL [facility] [address] [place] [address] [id number] 0 Phone: () - 01/23 CMP Bilir ubin, total mg/dL 0.3 1.2 0.3 FINAL [facility] [address] [place] [address] [id number] 0 Phone: () - 01/23 CMP Total prote in g/dL 5.7 8.2 6.1 FINAL [place] [address] [place] [address] [id number] 0 Phone: () - 01/30 CMP Album in g/dL 3.2 5.2 4.1 FINAL [place] [address] [place] [address] [id number] 0 Phone: () - 01/30 CMP Alkal ine phosp hatas e U/L 46.0 116.0 63 FINAL [place] [address] [place] [address] [id number] 0 Phone: () - 01/30 CMP ALT/S GPT U/L 7.0 40.0 19 FINAL [place] [address] [place] [address] [id number] 0 Phone: () - 01/30 CMP AST/S GOT U/L 13.0 40.0 22 FINAL [place] [address] [place] [address] [id number] 0 Phone: () - 01/30 CMP BUN mg/dL 9.0 23.0 22 FINAL [place] [address] [place] [address] [id number] 0 Phone: () - 01/30 CMP Calci um mg/dL 8.7 10.4 9.8 FINAL [place] [address] [id number] 0 Phone: () - 01/30 CMP Chlor vipin mmol/L 96.0 114.0 111 FINAL [place] [address] [id number] 0 Phone: () - 01/30 CMP CO2 mmol/L 20.0 31.0 21 The expected total allowable error for CO2 is 5.6%. We have seen up to 10% differenc e in values if reported at the end of the 96 hour stability window. Please consider the clinical significa nce of a 2.0-2.5 mmol/L lower reported CO2 value if reported at the end of the 96 hour stability window. FINAL [place] [address] [id number] 0 Phone: () - 01/30 CMP Creat inine mg/dL 0.5 1.2 0.73 FINAL [place] [address] [id number] 0 Phone: () - 01/30 CMP GFR estim ate ml/min /1.73m ^2 82.3 GFR is calculate d using the CKD-EPI equation. FINAL [place] [address] [id number] 0 Phone: () - 01/30 CMP Gluco se mg/dL 73.0 126.0 122 FINAL [place] [address] [id number] 0 Phone: () - 01/30 CMP Potas sium mmol/L 3.5 5.1 4.8 [place] [address] [id number] 0 Phone: () - 01/30 CMP Sodiu m mmol/L 136.0 145.0 140 FINAL [place] [address] [address] [facility] [address] [id number] 0 Phone: () - 01/30 CMP Bilir ubin, total mg/dL 0.3 1.2 0.3 FINAL [facility], [address] [facility] [id number] 0 Phone: () - 01/30 CMP Total prote in g/dL 5.7 8.2 6.7 FINAL [facility], [address] [facility] [id number] 0 Phone: () - 01/30 CBC w/ auto diff WBC K/uL 3.0 8.9 2.3 Low FINAL [facility] [place], [address] [place] [id number] 0 Phone: () - 01/30 CBC w/ auto diff HGB g/dL 11.3 15.2 11.0 Low FINAL [facility] [place], [address] [place] [id number] 0 Phone: () - 01/30 CBC w/ auto diff PLT K/uL 113.0 364.0 103 Low FINAL [facility] [place], [address] [place] [id number] 0 Phone: () - 01/30 CBC w/ auto diff Dave # (ANC) K/uL 1.6 6.6 2.1 FINAL [facility] [place], [address] [place] [id number] 0 Phone: () - 01/30 CBC w/ auto diff Dave % % 43.0 74.0 89.6 High FINAL [facility] [place], [address] [place] [id number] 0 Phone: () - 01/30 CBC w/ auto diff IG % % 0.0 0.5 0.9 High FINAL [facility] [place], [address] [place] [id number] 0 Phone: () - 01/30 CBC w/ auto diff IG # K/uL 0.0 0.03 0.02 FINAL [facility] [place], [address] [place] [id number] 0 Phone: () - 01/30 CBC w/ auto diff LY % % 14.0 41.0 7.3 Low FINAL [facility] [place], [address] [facility] [address] [place] [id number] 0 Phone: () - 01/30 CBC w/ auto diff MO % % 6.0 15.0 2.2 Low FINAL [facility] [place], [address] [facility] [address] [place] [id number] 0 Phone: () - 01/30 CBC w/ auto diff EO % % 0.0 7.0 0.0 FINAL [facility] [place], [address] [facility] [address] [place] [id number] [phone] Phone: () - 01/30 CBC w/ auto diff BA % % 0.0 2.0 0.0 FINAL [facility] - [place], [address] [facility] [address] [place] [id number] 0 Phone: () - 01/30 CBC w/ auto diff LY # K/uL 0.4 3.6 0.2 Low FINAL [facility] - [place], [address] [facility] [address] [place] [phone] 0 Phone: () - 01/30 CBC w/ auto diff MO # K/uL 0.2 1.3 0.1 Low FINAL [facility] - [place], [address] [facility] [address] [place] [id number] 0 Phone: () - 01/30 CBC w/ auto diff EO # K/uL 0.0 0.6 0.0 FINAL [facility] - [place], [address] [place] [id number] 0 Phone: () - 01/30 CBC w/ auto diff BA # K/uL 0.0 0.2 0.0 FINAL [facility] - [place], [address] [place] [id number] 0 Phone: () - 01/30 CBC w/ auto diff NRBC % #/100W BC 0.0 0.2 0.0 FINAL [facility] - [place], [address] [place] [id number] 0 Phone: () - 01/30 CBC w/ auto diff RBC M/uL 3.9 5.1 3.23 Low FINAL [facility] - [place], [address] [place] [id number] 0 Phone: () - 01/30 CBC w/ auto diff HCT % 35.0 48.0 32.4 Low FINAL [facility] - [place], [address] [place] [id number] 0 Phone: () - 01/30 CBC w/ auto diff MCV fL 80.0 104.0 100.3 FINAL [facility] - [place], [address] [place] [id number] 0 Phone: () - 01/30 CBC w/ auto diff MCH pg 26.0 35.0 34.1 FINAL [facility] - [place], [address] [place] [id number] 0 Phone: () - 01/30 CBC w/ auto diff MCHC g/dL 30.0 35.0 34.0 FINAL [facility] - [place], [address] [place] [id number] 0 Phone: () - 01/30 CBC w/ auto diff MPV fL 9.5 13.4 9.2 Low FINAL [facility] - [place], [address] [place] [id number] 0 Phone: () - 01/30 CBC w/ auto diff RDW % 11.4 16.1 14.80 FINAL [facility] - [place], [address] [place] [id number] 0 Phone: () - 01/30 CBC w/ auto diff Auto CBC comme nts Slide review to follow FINAL [facility] - [place], [address] [place] [id number] 0 Phone: () - 01/30 Smear revie w panel CBC Smear revie w comme nts Consist ent with reporte d results FINAL [facility] - [place], [address] [place] [id number] 0 Phone: () - 01/30 iSTAT creat inine panel Creat inine , iSTAT mg/dl 0.6 1.3 0.7 FINAL [facility] - [place], [address] [place] [id number] 0 Phone: () - 01/30 iSTAT creat inine panel GFR estim ate ml/min /1.73m ^2 86.6 GFR is calculate d using the CKD-EPI equation. FINAL [facility] - [place], [address] [place] [id number] 0 Phone: () - 02/17 CMP Album in g/dL 3.2 5.2 3.9 FINAL [facility], [address] [place] [id number] 0 Phone: () - 02/17 CMP Alkal ine phosp hatas e U/L 46.0 116.0 57 FINAL [facility] - [place], [address] [place] [id number] 0 Phone: () - 02/17 CMP ALT/S GPT U/L 7.0 40.0 13 FINAL Oz[facility] [address] [facility] [address] [id number] 0 Phone: () - 02/17 CMP AST/S GOT U/L 13.0 40.0 19 FINAL [facility] [address] [facility] [address] [id number] 0 Phone: () - 02/17 CMP BUN mg/dL 9.0 23.0 13 FINAL Oziel angelo [place] [address] [facility] [address] [id number] 0 Phone: () - 02/17 CMP Calci um mg/dL 8.7 10.4 9.3 FINAL Oziel angelo [place] [address] [id number] 0 Phone: () - 02/17 CMP Chlor vipin mmol/L 96.0 114.0 111 FINAL Oziel angelo [place] [address] [id number] 0 Phone: () - 02/17 CMP CO2 mmol/L 20.0 31.0 22 The [...] 96 hour stability window. FINAL Oziel angelo [place] [address] [id number] 0 Phone: () - 02/17 CMP Creat inine mg/dL 0.5 1.2 0.88 FINAL Oziel angelo [place] [address] [id number] 0 Phone: () - 02/17 CMP GFR estim ate ml/min /1.73m ^2 65.6 GFR is calculate d using the CKD-EPI equation. FINAL Oziel angelo [place] [address] [id number] 0 Phone: () - 02/17 CMP Gluco se mg/dL 73.0 126.0 63 Low FINAL Oziel angelo [facility], [address] [facility] [id number] 0 Phone: () - 02/17 CMP Potas sium mmol/L 3.5 5.1 4.2 FINAL Oziel angelo [facility], [address] [place] [address] [phone] 0 Phone: () - 02/17 CMP Sodiu m mmol/L 136.0 145.0 143 FINAL Oziel angelo [facility], [address] [facility] [id number] 0 Phone: () - 02/17 CMP Bilir ubin, total mg/dL 0.3 1.2 0.3 FINAL Oziel angelo [facility] [address] [place] [address] [id number] 0 Phone: () - 02/17 CMP Total prote in g/dL 5.7 8.2 6.4 FINAL Oziel angelo [facility], [address] [place] [address] [id number] 0 Phone: () - 02/17 TSH w/ refle x to free T4 TSH uIU/ml 0.32 5.0 3.46 Test performed at [facility] on a [employer] Immunoass ay Analyzer that uses an immunoenz ymometric sandwich assay for analysis. Patient testing should not be performed using multiple methodharley amador due to analytica l variation seen between test methodharley amador. FINAL Oziel angelo [facility], [address] [facility] [id number] 0 Phone: () - 02/17 CBC w/ auto diff WBC K/uL 3.0 8.9 3.7 FINAL [facility] - [place], [address] [facility] [place] [id number] 0 Phone: () - 02/17 CBC w/ auto diff HGB g/dL 11.3 15.2 10.2 Low FINAL [facility], [address] [place] [id number] 0 Phone: () - 02/17 CBC w/ auto diff PLT K/uL 113.0 364.0 213 FINAL [facility] - [place], [address] [place] [id number] 0 Phone: () - 02/17 CBC w/ auto diff Dave # (ANC) K/uL 1.6 6.6 2.1 FINAL [facility] - [place], [address] [place] [id number] 0 Phone: () - 02/17 CBC w/ auto diff Dave % % 43.0 74.0 57.4 FINAL Oziel aneglo [facility] - [place], [address] [place] [id number] 0 Phone: () - 02/17 CBC w/ auto diff IG % % 0.0 0.5 0.8 High FINAL [facility] - [place], [address] [place] [id number] 0 Phone: () - 02/17 CBC w/ auto diff IG # K/uL 0.0 0.03 0.03 FINAL [facility] - [place], [address] [place] [id number] 0 Phone: () - 02/17 CBC w/ auto diff LY % % 14.0 41.0 21.7 FINAL [facility] - [place], [address] [place] [id number] 0 Phone: () - 02/17 CBC w/ auto diff MO % % 6.0 15.0 18.5 High FINAL [facility] - [place], [address] [place] [id number] 0 Phone: () - 02/17 CBC w/ auto diff EO % % 0.0 7.0 1.1 FINAL [facility] - [place], [address] [place] [id number] 0 Phone: () - 02/17 CBC w/ auto diff BA % % 0.0 2.0 0.5 FINAL [facility] - [place], [address] [place] [id number] 0 Phone: () - 02/17 CBC w/ auto diff LY # K/uL 0.4 3.6 0.8 FINAL [facility] - [place], [address] [facility] [address] [place] [id number] 0 Phone: () - 02/17 CBC w/ auto diff MO # K/uL 0.2 1.3 0.7 FINAL [facility] - [place], [address] [facility] [address] [place] [id number] 0 Phone: () - 02/17 CBC w/ auto diff EO # K/uL 0.0 0.6 0.0 FINAL [facility] - [place], [address] [facility] [address] [place] [id number] 0 Phone: () - 02/17 CBC w/ auto diff BA # K/uL 0.0 0.2 0.0 FINAL [facility] - [place], [address] [facility] [address] [place] [id number] 0 Phone: () - 02/17 CBC w/ auto diff NRBC % #/100W BC 0.0 0.2 0.0 FINAL [facility] - [place], [address] [place] [id number] 0 Phone: () - 02/17 CBC w/ auto diff RBC M/uL 3.9 5.1 2.96 Low FINAL [facility] - [place], [address] [place] [id number] 0 Phone: () - 02/17 CBC w/ auto diff HCT % 35.0 48.0 30.3 Low FINAL [facility] - [place], [address] [place] [id number] 0 Phone: () - 02/17 CBC w/ auto diff MCV fL 80.0 104.0 102.4 FINAL [facility] - [place], [address] [place] [id number] 0 Phone: () - 02/17 CBC w/ auto diff MCH pg 26.0 35.0 34.5 FINAL [facility] - [place], [address] [place] [id number] 0 Phone: () - 02/17 CBC w/ auto diff MCHC g/dL 30.0 35.0 33.7 FINAL [facility] - [place], [address] [place] [id number] 0 Phone: () - 02/17 CBC w/ auto diff MPV fL 9.5 13.4 8.5 Low FINAL [facility] - [place], [address] [place] [id number] 0 Phone: () - 02/17 CBC w/ auto diff RDW % 11.4 16.1 17.40 High FINAL [facility] - [place], [address] [place] [id number] 0 Phone: () - 03/17 CBC w/ auto diff WBC K/uL 3.0 8.9 4.5 FINAL [facility] - [place], [address] [place] [id number] 0 Phone: () - 03/17 CBC w/ auto diff HGB g/dL 11.3 15.2 11.6 FINAL [facility] - [place], [address] [place] [id number] 0 Phone: () - 03/17 CBC w/ auto diff PLT K/uL 113.0 364.0 213 FINAL [facility] - [place], [address] [place] [id number] 0 Phone: () - 03/17 CBC w/ auto diff Dave # (ANC) K/uL 1.6 6.6 2.6 FINAL [facility] - [place], [address] [place] [id number] 0 Phone: () - 03/17 CBC w/ auto diff Dave % % 43.0 74.0 57.9 FINAL [facility] - [place], [address] [place] [id number] 0 Phone: () - 03/17 CBC w/ auto diff IG % % 0.0 0.5 0.4 FINAL [facility] - [place], [address] [place] [id number] 0 Phone: () - 03/17 CBC w/ auto diff IG # K/uL 0.0 0.03 0.02 FINAL [facility] - [place], [address] [place] [id number] 0 Phone: () - 03/17 CBC w/ auto diff LY % % 14.0 41.0 22.1 FINAL [facility] - [place], [address] [place] [id number] 0 Phone: () - 03/17 CBC w/ auto diff MO % % 6.0 15.0 12.9 FINAL [facility] - [place], [address] [place] [id number] 0 Phone: () - 03/17 CBC w/ auto diff EO % % 0.0 7.0 5.8 FINAL [facility] - [place], [address] [place] [id number] 0 Phone: () - 03/17 CBC w/ auto diff BA % % 0.0 2.0 0.9 FINAL [facility] - [place], [address] [place] [id number] 0 Phone: () - 03/17 CBC w/ auto diff LY # K/uL 0.4 3.6 1.0 FINAL [facility] - [place], [address] [place] [id number] 0 Phone: () - 03/17 CBC w/ auto diff MO # K/uL 0.2 1.3 0.6 FINAL [facility] - [place], [address] [place] [id number] 0 Phone: () - 03/17 CBC w/ auto diff EO # K/uL 0.0 0.6 0.3 FINAL [facility] - [place], [address] [place] [id number] 0 Phone: () - 03/17 CBC w/ auto diff BA # K/uL 0.0 0.2 0.0 FINAL [facility] - [place], [address] [place] [id number] 0 Phone: () - 03/17 CBC w/ auto diff NRBC % #/100W BC 0.0 0.2 0.0 FINAL [facility] - [place], [address] [place] [id number] 0 Phone: () - 03/17 CBC w/ auto diff RBC M/uL 3.9 5.1 3.26 Low FINAL [facility] - [place], [address] [place] [id number] 0 Phone: () - 03/17 CBC w/ auto diff HCT % 35.0 48.0 34.1 Low FINAL [facility] - [place], [address] [place] [id number] 0 Phone: () - 03/17 CBC w/ auto diff MCV fL 80.0 104.0 104.6 High FINAL [facility] - [place], [address] [place] [id number] 0 Phone: () - 03/17 CBC w/ auto diff MCH pg 26.0 35.0 35.6 High FINAL [facility] - [place], [address] [place] [id number] 0 Phone: () - 03/17 CBC w/ auto diff MCHC g/dL 30.0 35.0 34.0 FINAL [facility] - [place], [address] [place] [id number] 0 Phone: () - 03/17 CBC w/ auto diff MPV fL 9.5 13.4 8.6 Low FINAL [facility] - [place], [address] [place] [id number] 0 Phone: () - 03/17 CBC w/ auto diff RDW % 11.4 16.1 15.20 FINAL [facility] - [place], [address] [place] [id number] 0 Phone: () - 03/17 CMP Album in g/dL 3.2 5.2 4.1 FINAL Oziel angelo [facility], [address] [place] [id number] 0 Phone: () - 03/17 CMP Alkal ine phosp hatas e U/L 46.0 116.0 54 FINAL Oz[facility] angel[facility] - [place], [address] [place] [id number] 0 Phone: () - 03/17 CMP ALT/S GPT U/L 7.0 40.0 12 FINAL Oziel angelo [facility], [address] [place] [id number] 0 Phone: () - 03/17 CMP AST/S GOT U/L 13.0 40.0 20 FINAL Oziel angelo [facility], [address] [place] [id number] 0 Phone: () - 03/17 CMP BUN mg/dL 9.0 23.0 20 FINAL Oziel angelo [place] [address] [address] [facility] 100 [facility] [id number] 0 Phone: () - 03/17 CMP Calci um mg/dL 8.7 10.4 9.8 FINAL Oziel angelo [facility] [address] [facility] [facility] 100 [facility] [id number] 0 Phone: () - 03/17 CMP Chlor vipin mmol/L 96.0 114.0 109 FINAL Oziel angelo [facility] [address] [facility] 100 [facility] [id number] 0 Phone: () - 03/17 CMP CO2 mmol/L 20.0 31.0 24 The [...] 96 hour stability window. FINAL Oziel angelo [place] [address] [id number] 0 Phone: () - 03/17 CMP Creat inine mg/dL 0.5 1.2 0.90 FINAL Oziel angelo [place] [address] [id number] 0 Phone: () - 03/17 CMP GFR estim ate ml/min /1.73m ^2 63.8 GFR is calculate d using the CKD-EPI equation. FINAL Oziel angelo [place] [address] [facility] [address] [id number] 0 Phone: () - 03/17 CMP Gluco se mg/dL 73.0 126.0 87 FINAL Oziel angelo [place] [address] [facility] [address] [id number] 0 Phone: () - 03/17 CMP Potas sium mmol/L 3.5 5.1 4.4 FINAL Oziel angelo [place] [address] [facility] [facility] [facility] [id number] 0 Phone: () - 03/17 CMP Sodiu m mmol/L 136.0 145.0 142 FINAL Oziel angelo [facility], [address] [facility] 100 [facility] [id number] 0 Phone: () - 03/17 CMP Bilir ubin, total mg/dL 0.3 1.2 0.5 FINAL Oziel angelo [facility], [address] [facility] 100 [facility] [id number] 0 Phone: () - 03/17 CMP Total prote in g/dL 5.7 8.2 6.7 FINAL Oziel angelo [facility] [address] [id number] 0 Phone: () - 03/17 TSH w/ refle x to free T4 TSH uIU/ml 0.32 5.0 3.06 Test performed at [facility] on a [employer] Immunoass ay Analyzer that uses an immunoenz ymometric sandwich assay for analysis. Patient testing should not be performed using multiple methodolo ginaun due to analytica l variation seen between test methodharley amador. FINAL Oziel angelo [facility], [address] [id number] 0 Phone: () - 04/14 CMP Album in g/dL 3.2 5.2 4.3 FINAL Oziel angel[facility] [address] [facility] [address] [id number] 0 Phone: () - 04/14 CMP Alkal ine phosp hatas e U/L 46.0 116.0 58 FINAL Oziel angelo [facility], [address] [facility] [id number] 0 Phone: () - 04/14 CMP ALT/S GPT U/L 7.0 40.0 10 FINAL Oziel angelo [facility], [address] [facility] 100 [facility] [id number] 0 Phone: () - 04/14 CMP AST/S GOT U/L 13.0 40.0 21 FINAL Oziel angelo [facility], [address] [facility] 100 [facility] [id number] 0 Phone: () - 04/14 CMP BUN mg/dL 9.0 23.0 16 FINAL Oziel angelo [place] [address] [id number] 0 Phone: () - 04/14 CMP Calci um mg/dL 8.7 10.4 10.0 FINAL Oziel angelo [place] [address] [id number] 0 Phone: () - 04/14 CMP Chlor vipin mmol/L 96.0 114.0 109 FINAL Oziel angelo [place] [address] [id number] 0 Phone: () - 04/14 CMP CO2 mmol/L 20.0 31.0 24 The [...] 96 hour stability window. FINAL Oziel angelo [place] [address] [id number] 0 Phone: () - 04/14 CMP Creat inine mg/dL 0.5 1.2 0.88 FINAL Oziel angelo [place] [address] [id number] 0 Phone: () - 04/14 CMP GFR estim ate ml/min /1.73m ^2 65.6 GFR is calculate d using the CKD-EPI equation. FINAL Oziel angelo [place] [address] [id number] 0 Phone: () - 04/14 CMP Gluco se mg/dL 73.0 126.0 92 FINAL Oziel angelo [place] [address] [id number] 0 Phone: () - 04/14 CMP Potas sium mmol/L 3.5 5.1 4.4 FINAL Oziel angelo [place] [address] [place] [id number] 0 Phone: () - 04/14 CMP Sodiu m mmol/L 136.0 145.0 142 FINAL [facility] angel[facility], [address] [facility] [id number] 0 Phone: () - 04/14 CMP Bilir ubin, total mg/dL 0.3 1.2 0.5 FINAL Oziel angelo [facility], [address] [facility] [id number] 0 Phone: () - 04/14 CMP Total prote in g/dL 5.7 8.2 6.9 FINAL Oziel angelo [facility], [address] [facility] [id number] 0 Phone: () - 04/14 CBC w/ auto diff WBC K/uL 3.0 8.9 5.0 FINAL [facility] angel[facility] - [place], [address] [facility] [id number] 0 Phone: () - 04/14 CBC w/ auto diff HGB g/dL 11.3 15.2 12.4 FINAL [facility] - [place], [address] [place] [facility] [id number] 0 Phone: () - 04/14 CBC w/ auto diff PLT K/uL 113.0 364.0 202 FINAL [facility] angel[facility] - [place], [address] [place] [id number] 0 Phone: () - 04/14 CBC w/ auto diff Dave # (ANC) K/uL 1.6 6.6 3.4 FINAL [facility] - [place], [address] [place] [id number] 0 Phone: () - 04/14 CBC w/ auto diff Dave % % 43.0 74.0 67.0 FINAL [facility] - [place], [address] [place] [id number] 0 Phone: () - 04/14 CBC w/ auto diff IG % % 0.0 0.5 0.2 FINAL [facility] - [place], [address] [place] [id number] 0 Phone: () - 04/14 CBC w/ auto diff IG # K/uL 0.0 0.03 0.01 FINAL [facility] - [place], [address] [place] [id number] 0 Phone: () - 04/14 CBC w/ auto diff LY % % 14.0 41.0 22.0 FINAL [facility] - [place], [address] [place] [id number] 0 Phone: () - 04/14 CBC w/ auto diff MO % % 6.0 15.0 8.4 FINAL [facility] - [place], [address] [place] [id number] 0 Phone: () - 04/14 CBC w/ auto diff EO % % 0.0 7.0 2.0 FINAL [facility] - [place], [address] [place] [id number] 0 Phone: () - 04/14 CBC w/ auto diff BA % % 0.0 2.0 0.4 FINAL [facility] - [place], [address] [place] [id number] 0 Phone: () - 04/14 CBC w/ auto diff LY # K/uL 0.4 3.6 1.1 FINAL [facility] - [place], [address] [place] [id number] 0 Phone: () - 04/14 CBC w/ auto diff MO # K/uL 0.2 1.3 0.4 FINAL [facility] - [place], [address] [place] [id number] 0 Phone: () - 04/14 CBC w/ auto diff EO # K/uL 0.0 0.6 0.1 FINAL [facility] angel[facility] - [place], [address] [place] [id number] 0 Phone: () - 04/14 CBC w/ auto diff BA # K/uL 0.0 0.2 0.0 FINAL [facility] - [place], [address] [place] [id number] 0 Phone: () - 04/14 CBC w/ auto diff NRBC % #/100W BC 0.0 0.2 0.0 FINAL [facility] - [place], [address] [place] [id number] 0 Phone: () - 04/14 CBC w/ auto diff RBC M/uL 3.9 5.1 3.58 Low FINAL [facility] - [place], [address] [place] [id number] 0 Phone: () - 04/14 CBC w/ auto diff HCT % 35.0 48.0 36.8 FINAL [facility] - [place], [address] [place] [id number] 0 Phone: () - 04/14 CBC w/ auto diff MCV fL 80.0 104.0 102.8 FINAL [facility] - [place], [address] [place] [id number] 0 Phone: () - 04/14 CBC w/ auto diff MCH pg 26.0 35.0 34.6 FINAL [facility] - [place], [address] [place] [id number] 0 Phone: () - 04/14 CBC w/ auto diff MCHC g/dL 30.0 35.0 33.7 FINAL [facility] - [place], [address] [place] [id number] 0 Phone: () - 04/14 CBC w/ auto diff MPV fL 9.5 13.4 9.4 Low FINAL [facility] - [place], [address] [facility] [address] [place] [id number] 0 Phone: () - 04/14 CBC w/ auto diff RDW % 11.4 16.1 12.10 FINAL [facility] - [place], [address] [place] [address] d [address] [place] [id number] 0 Phone: () - 04/14 TSH w/ refle x to free T4 TSH uIU/ml 0.32 5.0 0.79 Test performed at [facility] on a [employer] Immunoass ay Analyzer that uses an immunoenz ymometric sandwich assay for analysis. Patient testing should not be performed using multiple methodolo ginaun due to analytica l variation seen between test methodharley amador. FINAL [facility] - [place], [address] [place] [id number] 0 Phone: () - 04/14 [facility] other lab See patrol conductor d 04/30 UA Micro scopi c WBC (ua) 0.0 2.0 21-50 Abnor mal FINAL [facility] - [place], [address] [place] [address] d [address] [place] [id number] 0 Phone: () - 04/30 UA Micro scopi c RBC (ua) 0.0 2.0 3-5 Abnor mal FINAL [facility] - [place], [address] [facility] [address] [place] [id number] 0 Phone: () - 04/30 UA Micro scopi c Epith elial cells (ua) Moderat e 6-10 Abnor mal FINAL [facility] - [place], [address] [place], [place] [address]et [facility] [address] [place] [id number] 0 Phone: () - 04/30 UA Micro scopi c Bacte aniya (ua) Few Abnor mal FINAL Oz[facility] angel[facility] - [place], [facility] [address] [place] [id number] 0 Phone: () - 04/30 UA Micro scopi c Mucus (ua) Negativ e FINAL [facility] - [place], [address] [place] [id number] 0 Phone: () - 04/30 UA Micro scopi c Casts , urine None FINAL [facility] - [place], [address] [place] [id number] 0 Phone: () - 04/30 UA Micro scopi c Cryst als (ua) None FINAL [facility] - [place], [address] [place] [id number] 0 Phone: () - 04/30 UA Micro scopi c UA comme nt 1 Micro Positiv e-Cultu re Ordered Microsc opic perform ed on un-spun urine FINAL [facility] - [place], [address] [place] [id number] 0 Phone: () - 04/30 Color (ua) Yellow FINAL [facility] [place], [address] [place] [id number] 0 Phone: () - 04/30 Appea serena (ua) Cloudy Abnor mal FINAL [facility] [place], [address] [place] [id number] 0 Phone: () - 04/30 Gluco se (ua), qual Negativ e FINAL [facility] [place], [address] [place] [id number] 0 Phone: () - 04/30 Bilir ubin (ua) Negativ e FINAL [facility] [place], [address] [place] [id number] 0 Phone: () - 04/30 Urina lysis , aceto ne or keton e rodriguez s measu remen t Negativ e FINAL [facility] [place], [address] [place] [id number] 0 Phone: () - 04/30 Speci fic gravi ty (ua) 1.005 1.02 1.020 FINAL [facility] [place], [address] [place] [id number] 0 Phone: () - 04/30 Blood (ua) 3+-Larg e Abnor mal FINAL [facility] [place], [address] [place] [id number] 0 Phone: () - 04/30 pH (ua) 5.0 8.0 6.0 FINAL [facility] - [place], [address] [place] [id number] 0 Phone: () - 04/30 Prote in (ua) 1+ Abnor mal FINAL [facility] [place], [address] [place] [id number] 0 Phone: () - 04/30 Urobi linog en (ua) 0.2 1.0 0.2 FINAL [facility] [place], [address] [place] [id number] 0 Phone: () - 04/30 Nitri te (ua) Negativ e FINAL [facility] [place], [address] [place] [id number] 0 Phone: () - 04/30 Leuko cyte peter ase (ua), qual 2+-Mode rate Abnor mal FINAL [facility] [place], [address] [place] [id number] 0 Phone: () - 04/30 UA comme nt 1 Dipstic k Positiv e-Micro Ordered FINAL [facility] [place], [address] [place] [id number] 0 Phone: () - 04/30 Urine cultu re panel Final repor t, urine cultu re SEE RESULTS BELOW SOURCE: Urine VoidBacte aniya Identific ation in Isolate by Culture:5 0,000-100 ,000 CFU/mL of multiple organisms , probable contamina ntsTest Performed by:[facility] [address] - [facility] [place], [place] [address]Kone e : FINAL Oziel Box 05/28 CBC w/ auto diff WBC K/uL 3.0 8.9 6.9 FINAL [facility] [place], [address] [place] [id number] 0 Phone: () - 05/28 CBC w/ auto diff HGB g/dL 11.3 15.2 13.0 FINAL [facility] [place], [address] [place] [id number] 0 Phone: () - 05/28 CBC w/ auto diff PLT K/uL 113.0 364.0 183 FINAL [facility] [place], [address] [place] [id number] 0 Phone: () - 05/28 CBC w/ auto diff Dave # (ANC) K/uL 1.6 6.6 6.0 FINAL [facility] [place], [address] [place] [id number] 0 Phone: () - 05/28 CBC w/ auto diff Dave % % 43.0 74.0 86.6 High FINAL [facility] [place], [address] [place] [id number] 0 Phone: () - 05/28 CBC w/ auto diff IG % % 0.0 0.5 0.4 FINAL [facility] [place], [address] [place] [id number] 0 Phone: () - 05/28 CBC w/ auto diff IG # K/uL 0.0 0.03 0.03 FINAL [facility] [place], [address] [place] [id number] 0 Phone: () - 05/28 CBC w/ auto diff LY % % 14.0 41.0 9.1 Low FINAL [facility] [place], [address] [place] [id number] 0 Phone: () - 05/28 CBC w/ auto diff MO % % 6.0 15.0 3.5 Low FINAL [facility] [place], [address] [place] [id number] 0 Phone: () - 05/28 CBC w/ auto diff EO % % 0.0 7.0 0.1 FINAL [facility] [place], [address] [place] [id number] 0 Phone: () - 05/28 CBC w/ auto diff BA % % 0.0 2.0 0.3 FINAL [facility] [place], [address] [place] [id number] 0 Phone: () - 05/28 CBC w/ auto diff LY # K/uL 0.4 3.6 0.6 FINAL [facility] [place], [address] [place] [id number] 0 Phone: () - 05/28 CBC w/ auto diff MO # K/uL 0.2 1.3 0.2 FINAL [facility] [place], [address] [place] [id number] 0 Phone: () - 05/28 CBC w/ auto diff EO # K/uL 0.0 0.6 0.0 FINAL [facility] [place], [address] [place] [id number] 0 Phone: () - 05/28 CBC w/ auto diff BA # K/uL 0.0 0.2 0.0 FINAL [facility] [place], [address] [place] [id number] 0 Phone: () - 05/28 CBC w/ auto diff NRBC % #/100W BC 0.0 0.2 0.0 FINAL [facility] [place], [address] [place] [id number] 0 Phone: () - 05/28 CBC w/ auto diff RBC M/uL 3.9 5.1 3.83 Low FINAL [facility] [place], [address] [place] [id number] 0 Phone: () - 05/28 CBC w/ auto diff HCT % 35.0 48.0 38.6 FINAL [facility] [place], [address] [place] [id number] 0 Phone: () - 05/28 CBC w/ auto diff MCV fL 80.0 104.0 100.8 FINAL [facility] [place], [address] [place] [id number] 0 Phone: () - 05/28 CBC w/ auto diff MCH pg 26.0 35.0 33.9 FINAL [facility] [place], [address] [place] [id number] 0 Phone: () - 05/28 CBC w/ auto diff MCHC g/dL 30.0 35.0 33.7 FINAL [facility] [place], [address] [place] [id number] 0 Phone: () - 05/28 CBC w/ auto diff MPV fL 9.5 13.4 9.0 Low FINAL [facility] [place], [address] [place] [id number] 0 Phone: () - 05/28 CBC w/ auto diff RDW % 11.4 16.1 12.10 FINAL [facility] [place], [address] [facility] [place] [id number] 0 Phone: () - 05/28 CMP Alkal ine phosp hatas e U/L 46.0 116.0 45 Low FINAL [facility] angel[facility], [address] [facility] [id number] 0 Phone: () - 05/28 CMP ALT/S GPT U/L 7.0 40.0 26 FINAL [facility] angel[facility], [address] [facility] [id number] 0 Phone: () - 05/28 CMP AST/S GOT U/L 13.0 40.0 24 FINAL [facility] angel[facility], [address] [facility] [id number] 0 Phone: () - 05/28 CMP BUN mg/dL 9.0 23.0 18 FINAL Oziel angel[facility], [address] [facility] [id number] 0 Phone: () - 05/28 CMP Calci um mg/dL 8.7 10.4 9.8 FINAL Oziel angel[facility], [address] [facility] [id number] 0 Phone: () - 05/28 CMP Chlor vipin mmol/L 96.0 114.0 108 FINAL [facility] angel[facility], [address] [facility] [id number] 0 Phone: () - 05/28 CMP CO2 mmol/L 20.0 31.0 23 The [...] 96 hour stability window. FINAL [facility] angel[facility], [address] [id number] 0 Phone: () - 05/28 CMP Creat inine mg/dL 0.5 1.2 0.98 FINAL [facility] angel[facility] [place] [address] [id number] 0 Phone: () - 05/28 CMP GFR estim ate ml/min /1.73m ^2 61.2 GFR is calculate d using the CKD-EPI equation. FINAL [facility] angel[facility] [place] [address] [id number] 0 Phone: () - 05/28 CMP Gluco se mg/dL 73.0 126.0 111 FINAL [facility] angel[facility] [place] [address] [id number] 0 Phone: () - 05/28 CMP Potas sium mmol/L 3.5 5.1 4.5 FINAL [facility] angelo [place] [address] [id number] 0 Phone: () - 05/28 CMP Sodiu m mmol/L 136.0 145.0 144 FINAL [facility] angelo [place] [address] [id number] 0 Phone: () - 05/28 CMP Bilir ubin, total mg/dL 0.3 1.2 0.4 FINAL [facility] angel[facility] [place] [address] [id number] 0 Phone: () - 05/28 CMP Total prote in g/dL 5.7 8.2 6.3 FINAL [facility] [place] [address] [id number] 0 Phone: () - 05/28 CMP Album in g/dL 3.2 5.2 4.2 FINAL [facility] angel[facility] [place] [address] [id number] 0 Phone: () - 05/28 TSH w/ refle x to free T4 TSH uIU/ml 0.32 5.0 1.08 Test performed at [facility] on a [employer] 2000 Immunoass ay Analyzer that uses an immunoenz ymometric sandwich assay for analysis. Patient testing should not be performed using multiple kathi amador due to analytica l variation seen between test methodharley amador. FINAL [facility]iel angel[facility] [place] [address] [id number] 0 Phone: () - 05/28 Speci men Sourc e Oral FINAL [facility]iel Box 05/28 HSV 1, PCR Negativ e FINAL [facility] Box 05/28 HSV 2, PCR Negativ e --------- --------- -ADDITION AL INFORMATI ON------- --------- ---This test was developed and its performan ce character isticsdet ermined by [facility] in a manner consisten t with CLIArequi rements. This test has not been cleared or approved bythe U.S. Food and Drug Administr ation.Farrah t Performed by:[facility] [place] [id number] Director: Kenneth Alvarenga M.D. Ph.D.; CLIA# [id number] FINAL [facility] Box 05/30 [facility] other lab See attache hughes 07/02 CMP Album in g/dL 3.2 5.2 4.2 FINAL Oziel angelo [place] [address] [id number] 0 Phone: () - 07/02 CMP Alkal ine phosp hatas e U/L 46.0 116.0 52 FINAL [facility] [address] [facility] 100 [facility] [id number] 0 Phone: () - 07/02 CMP ALT/S GPT U/L 7.0 40.0 18 FINAL [facility] angelo [place] [address] [address] [facility] 100 [facility] [id number] 0 Phone: () - 07/02 CMP AST/S GOT U/L 13.0 40.0 22 FINAL Oziel angel[facility] [address] [facility] [id number] 0 Phone: () - 07/02 CMP BUN mg/dL 9.0 23.0 23 FINAL Oziel angelo [place] [address] [id number] 0 Phone: () - 07/02 CMP Calci um mg/dL 8.7 10.4 9.9 FINAL [facility] angel[facility] [address] [id number] 0 Phone: () - 07/02 CMP Chlor vipin mmol/L 96.0 114.0 110 FINAL Oziel angelo [place] [address] [address] [facility] 100 [facility] [id number] 0 Phone: () - 07/02 CMP CO2 mmol/L 20.0 31.0 23 The [...] 96 hour stability window. FINAL [facility]iel angel[facility] [place] [address] [id number] 0 Phone: () - 07/02 CMP Creat inine mg/dL 0.5 1.2 1.02 FINAL [facility] angel[facility] [place] [address] [id number] 0 Phone: () - 07/02 CMP GFR estim ate ml/min /1.73m ^2 58.3 Low GFR is calculate d using the CKD-EPI equation. FINAL Oziel angelo [place] [address] [id number] 0 Phone: () - 07/02 CMP Gluco se mg/dL 73.0 126.0 72 Low FINAL [facility] [place] [address] [address] [facility] 100 [facility] [id number] 0 Phone: () - 07/02 CMP Potas sium mmol/L 3.5 5.1 4.2 FINAL [facility] [place] [address] [address] [facility] [address] [facility] [id number] 0 Phone: () - 07/02 CMP Sodiu m mmol/L 136.0 145.0 145 FINAL [facility], [address] [facility] [id number] 0 Phone: () - 07/02 CMP Bilir ubin, total mg/dL 0.3 1.2 0.5 FINAL [facility], [address] [facility] [id number] 0 Phone: () - 07/02 CMP Total prote in g/dL 5.7 8.2 6.5 FINAL [facility], [address] [facility] [id number] 0 Phone: () - 07/02 CBC w/ auto diff WBC K/uL 3.0 8.9 5.0 FINAL [facility] [place], [address] [facility] [id number] 0 Phone: () - 07/02 CBC w/ auto diff HGB g/dL 11.3 15.2 12.6 FINAL [facility] [place], [address] [place] [id number] 0 Phone: () - 07/02 CBC w/ auto diff PLT K/uL 113.0 364.0 232 FINAL [facility] [place], [address] [place] [id number] 0 Phone: () - 07/02 CBC w/ auto diff Dave # (ANC) K/uL 1.6 6.6 3.2 FINAL [facility] [place], [address] [place] [id number] 0 Phone: () - 07/02 CBC w/ auto diff Dave % % 43.0 74.0 63.5 FINAL [facility] [place], [address] [place] [id number] 0 Phone: () - 07/02 CBC w/ auto diff IG % % 0.0 0.5 0.2 FINAL [facility] [place], [address] [place] [id number] 0 Phone: () - 07/02 CBC w/ auto diff IG # K/uL 0.0 0.03 0.01 FINAL [facility] [place], [address] [place] [id number] 0 Phone: () - 07/02 CBC w/ auto diff LY % % 14.0 41.0 24.1 FINAL [facility] [place], [address] [place] [id number] 0 Phone: () - 07/02 CBC w/ auto diff MO % % 6.0 15.0 9.4 FINAL [facility] [place], [address] [place] [id number] 0 Phone: () - 07/02 CBC w/ auto diff EO % % 0.0 7.0 2.2 FINAL [facility] [place], [address] [place] [id number] 0 Phone: () - 07/02 CBC w/ auto diff BA % % 0.0 2.0 0.6 FINAL [facility] [place], [address] [place] [id number] 0 Phone: () - 07/02 CBC w/ auto diff LY # K/uL 0.4 3.6 1.2 FINAL [facility] [place], [address] [place] [id number] 0 Phone: () - 07/02 CBC w/ auto diff MO # K/uL 0.2 1.3 0.5 FINAL [facility] [place], [address] [place] [id number] 0 Phone: () - 07/02 CBC w/ auto diff EO # K/uL 0.0 0.6 0.1 FINAL [facility] [place], [address] [place] [id number] 0 Phone: () - 07/02 CBC w/ auto diff BA # K/uL 0.0 0.2 0.0 FINAL [facility] [place], [address] [place] [id number] 0 Phone: () - 07/02 CBC w/ auto diff NRBC % #/100W BC 0.0 0.2 0.0 FINAL [facility] [place], [address] [place] [id number] 0 Phone: () - 07/02 CBC w/ auto diff RBC M/uL 3.9 5.1 3.86 Low FINAL [facility] [place], [address] [place] [id number] 0 Phone: () - 07/02 CBC w/ auto diff HCT % 35.0 48.0 37.7 FINAL [facility] [place], [address] [place] [id number] 0 Phone: () - 07/02 CBC w/ auto diff MCV fL 80.0 104.0 97.7 FINAL [facility] [place], [address] [place] [id number] 0 Phone: () - 07/02 CBC w/ auto diff MCH pg 26.0 35.0 32.6 FINAL [facility] [place], [address] [place] [id number] 0 Phone: () - 07/02 CBC w/ auto diff MCHC g/dL 30.0 35.0 33.4 FINAL [facility] [place], [address] [place] [id number] 0 Phone: () - 07/02 CBC w/ auto diff MPV fL 9.5 13.4 9.0 Low FINAL [facility] [place], [address] [facility] [address] [facility] [id number] 0 Phone: () - 07/02 CBC w/ auto diff RDW % 11.4 16.1 13.10 FINAL [facility] [place], [address] [facility] [address] [facility] [place] [id number] 0 Phone: () - 07/02 T4, free panel T4, free ng/dL 0.7 1.8 0.86 Test performed at [facility] on a [employer] 2000 Immunoass ay Analyzer that uses an immunoenz ymometric sandwich assay for analysis. Patient testing should not be performed using multiple methodolo gies due to analytica l variation seen between test methodolo gies. FINAL [facility], [address] [facility] [address] [facility] [id number] 0 Phone: () - 07/02 TSH w/ refle x to free T4 TSH uIU/ml 0.32 5.0 6.12 High Test performed at [facility] on a [employer] 2000 Immunoass ay Analyzer that uses an immunoenz ymometric sandwich assay for analysis. Patient testing should not be performed using multiple methodolo gies due to analytica l variation seen between test methodolo gies. FINAL [facility] angel[facility], [address] [facility] [address] [facility] [id number] 0 Phone: () - 07/30 CBC w/ auto diff WBC K/uL 3.0 8.9 6.0 FINAL [facility] [place], [address] [facility] [address] [facility] [place] [id number] 0 Phone: () - 07/30 CBC w/ auto diff HGB g/dL 11.3 15.2 11.2 Low FINAL [facility] [place], [address] [facility] [address] [facility] [place] [id number] 0 Phone: () - 07/30 CBC w/ auto diff PLT K/uL 113.0 364.0 220 FINAL [facility] [place] [facility] [place], [address] [place] [id number] 0 Phone: () - 07/30 CBC w/ auto diff Dave # (ANC) K/uL 1.6 6.6 5.0 FINAL [facility] [place], [address] [place] [id number] 0 Phone: () - 07/30 CBC w/ auto diff Dave % % 43.0 74.0 84.4 High FINAL [facility] [place], [address] [place] [id number] 0 Phone: () - 07/30 CBC w/ auto diff IG % % 0.0 0.5 0.2 FINAL [facility] [place], [address] [place] [id number] 0 Phone: () - 07/30 CBC w/ auto diff IG # K/uL 0.0 0.03 0.01 FINAL [facility] [place], [address] [place] [id number] 0 Phone: () - 07/30 CBC w/ auto diff LY % % 14.0 41.0 10.4 Low FINAL [facility] [place], [address] [place] [id number] 0 Phone: () - 07/30 CBC w/ auto diff MO % % 6.0 15.0 4.4 Low FINAL [facility] [place], [address] [place] [id number] 0 Phone: () - 07/30 CBC w/ auto diff EO % % 0.0 7.0 0.3 FINAL [facility] [place], [address] [place] [id number] 0 Phone: () - 07/30 CBC w/ auto diff BA % % 0.0 2.0 0.3 FINAL [facility] [place], [address] [place] [id number] 0 Phone: () - 07/30 CBC w/ auto diff LY # K/uL 0.4 3.6 0.6 FINAL [facility] [place], [address] [place] [id number] 0 Phone: () - 07/30 CBC w/ auto diff MO # K/uL 0.2 1.3 0.3 FINAL [facility] [place], [address] [place] [id number] 0 Phone: () - 07/30 CBC w/ auto diff EO # K/uL 0.0 0.6 0.0 FINAL [facility] [place], [address] [place] [id number] 0 Phone: () - 07/30 CBC w/ auto diff BA # K/uL 0.0 0.2 0.0 FINAL [facility] [place], [address] [place] [id number] 0 Phone: () - 07/30 CBC w/ auto diff NRBC % #/100W BC 0.0 0.2 0.0 FINAL [facility] [place], [address] [place] [id number] 0 Phone: () - 07/30 CBC w/ auto diff RBC M/uL 3.9 5.1 3.39 Low FINAL [facility] [place], [address] [place] [id number] 0 Phone: () - 07/30 CBC w/ auto diff HCT % 35.0 48.0 34.0 Low FINAL [facility] [place], [address] [place] [id number] 0 Phone: () - 07/30 CBC w/ auto diff MCV fL 80.0 104.0 100.3 FINAL [facility] angel[facility] - [place], [address] [place] [id number] 0 Phone: () - 07/30 CBC w/ auto diff MCH pg 26.0 35.0 33.0 FINAL [facility] angel[facility] - [place], [address] [place] [id number] 0 Phone: () - 07/30 CBC w/ auto diff MCHC g/dL 30.0 35.0 32.9 FINAL [facility] - [place], [address] [place] [id number] 0 Phone: () - 07/30 CBC w/ auto diff MPV fL 9.5 13.4 9.0 Low FINAL [facility] - [place], [address] [place] [id number] 0 Phone: () - 07/30 CBC w/ auto diff RDW % 11.4 16.1 14.60 FINAL [facility] - [place], [address] [place] [id number] 0 Phone: () - 07/30 TSH w/ refle x to free T4 TSH uIU/ml 0.32 5.0 4.12 Test performed at [facility] on a [employer] 2000 Immunoass ay Analyzer that uses an immunoenz ymometric sandwich assay for analysis. Patient testing should not be performed using multiple methodolo gies due to analytica l variation seen between test methodolo gies. FINAL Oziel angelo On[facility], [address] [place] [id number] 0 Phone: () - 07/30 CMP Album in g/dL 3.2 5.2 4.3 FINAL Oziel angelo [facility], [address] [place] [id number] 0 Phone: () - 07/30 CMP Alkal ine phosp hatas e U/L 46.0 116.0 66 FINAL Oziel angelo [facility], [address] [facility] [address] [facility] [id number] 0 Phone: () - 07/30 CMP ALT/S GPT U/L 7.0 40.0 15 FINAL Oziel angelo [facility], [address] [facility] 100 [facility] [id number] 0 Phone: () - 07/30 CMP AST/S GOT U/L 13.0 40.0 22 FINAL Oziel angelo [place] [address] [address] [facility] 100 [facility] [id number] 0 Phone: () - 07/30 CMP BUN mg/dL 9.0 23.0 18 FINAL Oziel angelo [place] [address] [address] [facility] 100 [facility] [id number] 0 Phone: () - 07/30 CMP Calci um mg/dL 8.7 10.4 9.7 FINAL Oziel angelo [place] [address] [address] [facility] 100 [facility] [id number] 0 Phone: () - 07/30 CMP Chlor vipin mmol/L 96.0 114.0 110 FINAL Oziel angelo [facility], [address] [facility] 100 [facility] [id number] 0 Phone: () - 07/30 CMP CO2 mmol/L 20.0 31.0 24 The [...] 96 hour stability window. FINAL Oziel angelo [facility], [address] [facility] [address] [facility] [id number] 0 Phone: () - 07/30 CMP Creat inine mg/dL 0.5 1.2 0.94 FINAL Oziel angelo [facility] [address] [facility] 100 [facility] [id number] 0 Phone: () - 07/30 CMP GFR estim ate ml/min /1.73m ^2 64.3 GFR is calculate d using the CKD-EPI equation. FINAL Oziel angelo [facility], [address] [id number] 0 Phone: () - 07/30 CMP Gluco se mg/dL 73.0 126.0 108 FINAL Oziel angelo [facility] [address] [facility] 100 [facility] [id number] 0 Phone: () - 07/30 CMP Potas sium mmol/L 3.5 5.1 4.6 FINAL Oziel angelo [facility] [address] [id number] 0 Phone: () - 07/30 CMP Sodiu m mmol/L 136.0 145.0 143 FINAL Oziel angelo [place] [address] [id number] 0 Phone: () - 07/30 CMP Bilir ubin, total mg/dL 0.3 1.2 0.3 FINAL Oziel angelo [facility] [address] [id number] 0 Phone: () - 07/30 CMP Total prote in g/dL 5.7 8.2 6.4 FINAL Oziel angelo [place] [address] [id number] 0 Phone: () - 07/30 Hepat itis C antib taylor panel HCV Ab, S Negativ e Signal-to -cutoff ratio is <1.00.Farrah t Performed by:[address] Director: Kenneth Alvarenga M.D. Ph.D.; CLIA# [id number] FINAL Oziel Box 08/27 TSH w/ refle x to free T4 TSH uIU/ml 0.32 5.0 6.32 High [facility] performed [facility] [facility] on a [employer] ay Analyzer that uses an immunoenz ymometric sandwich assay for analysis. Patient testing should not be performed using multiple methodharley amador due to analytica l variation seen between test methodharley amador. FINAL Oziel angelo [facility], [facility] [address] [phone] 0 Phone: () - 08/27 CBC w/ auto diff WBC K/uL 3.0 8.9 4.4 FINAL Oziel [facility] - [place], [address] [place] [id number] 0 Phone: () - 08/27 CBC w/ auto diff HGB g/dL 11.3 15.2 10.5 Low FINAL Oziel [facility] - [place], [address] [place] [id number] 0 Phone: () - 08/27 CBC w/ auto diff PLT K/uL 113.0 364.0 226 FINAL Oziel Tilleyot a [facility] - [place], [address] [place] [id number] 0 Phone: () - 08/27 CBC w/ auto diff Dave # (ANC) K/uL 1.6 6.6 2.5 FINAL Oziel angelo [facility] - [place], [address] [place] [id number] 0 Phone: () - 08/27 CBC w/ auto diff Dave % % 43.0 74.0 56.5 FINAL Oziel angelo [facility] - [place], [address] [place] [id number] 0 Phone: () - 08/27 CBC w/ auto diff IG % % 0.0 0.5 0.2 FINAL Oziel angelo [facility] - [place], [address] [place] [id number] 0 Phone: () - 08/27 CBC w/ auto diff IG # K/uL 0.0 0.03 0.01 FINAL Oziel [facility] - [place], [address] [place] [id number] 0 Phone: () - 08/27 CBC w/ auto diff LY % % 14.0 41.0 29.6 FINAL Oziel [facility] - [place], [address] [place] [id number] 0 Phone: () - 08/27 CBC w/ auto diff MO % % 6.0 15.0 9.3 FINAL Oziel angelo [facility] - [place], [address] [place] [id number] 0 Phone: () - 08/27 CBC w/ auto diff EO % % 0.0 7.0 3.9 FINAL Oziel angelo [facility] - [place], [address] [place] [id number] 0 Phone: () - 08/27 CBC w/ auto diff BA % % 0.0 2.0 0.5 FINAL Oziel angelo [facility] - [place], [address] [facility] [address] [place] [id number] 0 Phone: () - 08/27 CBC w/ auto diff LY # K/uL 0.4 3.6 1.3 FINAL Oziel angelo [facility] - [place], [address] [facility] [address] [place] [id number] 0 Phone: () - 08/27 CBC w/ auto diff MO # K/uL 0.2 1.3 0.4 FINAL Oziel angelo [facility] - [place], [address] [place] [id number] 0 Phone: () - 08/27 CBC w/ auto diff EO # K/uL 0.0 0.6 0.2 FINAL Oziel angelo [facility] - [place], [address] [place] [id number] 0 Phone: () - 08/27 CBC w/ auto diff BA # K/uL 0.0 0.2 0.0 FINAL Oziel angelo [facility] - [place], [address] [place] [id number] 0 Phone: () - 08/27 CBC w/ auto diff NRBC % #/100W BC 0.0 0.2 0.0 FINAL Oziel angelo [facility] - [place], [address] [place] [id number] 0 Phone: () - 08/27 CBC w/ auto diff RBC M/uL 3.9 5.1 3.17 Low FINAL Oziel Tolbert a [facility] - [place], [address] [place] [id number] 0 Phone: () - 08/27 CBC w/ auto diff HCT % 35.0 48.0 32.0 Low FINAL Oziel [facility] - [place], [address] [facility] [address] [place] [id number] 0 Phone: () - 08/27 CBC w/ auto diff MCV fL 80.0 104.0 100.9 FINAL Oziel angelo [facility] - [place], [address] [facility] [address] [place] [id number] 0 Phone: () - 08/27 CBC w/ auto diff MCH pg 26.0 35.0 33.1 FINAL Oziel angelo [facility] - [place], [address] [facility] [address] [place] [id number] 0 Phone: () - 08/27 CBC w/ auto diff MCHC g/dL 30.0 35.0 32.8 FINAL Oziel angelo [facility] - [place], [address] [facility] [address] [place] [id number] 0 Phone: () - 08/27 CBC w/ auto diff MPV fL 9.5 13.4 9.1 Low FINAL Oziel angelo [facility] - [place], [address] [place] [id number] 0 Phone: () - 08/27 CBC w/ auto diff RDW % 11.4 16.1 13.80 FINAL Oziel angelo [facility] - [place], [address] [place] [id number] 0 Phone: () - 08/27 CMP Album in g/dL 3.2 5.2 4.0 FINAL Oziel Tilley[facility] a [facility] - [place], [address] [place] [id number] 0 Phone: () - 08/27 CMP Alkal ine phosp hatas e U/L 46.0 116.0 71 FINAL Oziel angelo [facility], [address] [facility] [address] [id number] 0 Phone: () - 08/27 CMP ALT/S GPT U/L 7.0 40.0 11 FINAL Oziel angelo [facility] [address] [facility] [address] [id number] 0 Phone: () - 08/27 CMP AST/S GOT U/L 13.0 40.0 18 FINAL Oziel angelo [place] [address] [address] [facility] [address] [id number] 0 Phone: () - 08/27 CMP BUN mg/dL 9.0 23.0 16 FINAL Oziel angelo [place] [address] [id number] 0 Phone: () - 08/27 CMP Calci um mg/dL 8.7 10.4 9.5 FINAL Oziel angelo [place] [address] [address] [facility] [address] [id number] 0 Phone: () - 08/27 CMP Chlor vipin mmol/L 96.0 114.0 110 FINAL Oziel angelo [facility], [facility] N [address] [id number] 0 Phone: () - 08/27 CMP CO2 mmol/L 20.0 31.0 24 The [...] 96 hour stability window. FINAL Oziel angelo [facility], [facility] N [facility] [address] [id number] 0 Phone: () - 08/27 CMP Creat inine mg/dL 0.5 1.2 0.84 FINAL Oziel angelo [facility], [facility] N [facility] [address] [id number] 0 Phone: () - 08/27 CMP GFR estim ate ml/min /1.73m ^2 73.5 GFR is calculate d using the CKD-EPI equation. FINAL Oziel angelo [place] [address] [id number] 0 Phone: () - 08/27 CMP Gluco se mg/dL 73.0 126.0 84 FINAL Oziel angelo [place] [address] [id number] 0 Phone: () - 08/27 CMP Potas sium mmol/L 3.5 5.1 4.4 FINAL Oziel angelo [place] [address] [id number] 0 Phone: () - 08/27 CMP Sodiu m mmol/L 136.0 145.0 142 FINAL Oziel angelo [place] [address] [id number] 0 Phone: () - 08/27 CMP Bilir ubin, total mg/dL 0.3 1.2 0.3 FINAL Oziel angelo [place] [address] [id number] 0 Phone: () - 08/27 CMP Total prote in g/dL 5.7 8.2 6.1 FINAL Oziel angelo [place] [address] [id number] 0 Phone: () - 08/27 T4, free panel T4, free ng/dL 0.7 1.8 0.69 Low Test performed at [facility] on a [employer] Immun[employer] ay Analyzer that uses an immunoenz ymometric sandwich assay for analysis. Patient testing should not be performed using multiple kathi amador due to analytica l variation seen between test kathi amador. FINAL Oziel angelo [place] [address] [id number] 0 Phone: () - 09/26 TSH w/ refle x to free T4 TSH uIU/ml 0.32 5.0 1.33 Test performed at [facility] on a [employer] Immun[employer] ay Analyzer that uses an immunoenz ymometric sandwich assay for analysis. Patient testing should not be performed using multiple methodharley amador due to analytica l variation seen between test methodharley amador. FINAL Oziel angelo [place] [address] [id number] 0 Phone: () - 09/26 CMP Album in g/dL 3.2 5.2 4.3 FINAL Oziel angelo [address] [id number] 0 Phone: () - 09/26 CMP Alkal ine phosp hatas e U/L 46.0 116.0 65 FINAL Oziel angelo [address] [id number] 0 Phone: () - 09/26 CMP ALT/S GPT U/L 7.0 40.0 8 FINAL Oziel angelo [address] [id number] 0 Phone: () - 09/26 CMP AST/S GOT U/L 13.0 40.0 17 FINAL Oziel angelo [place] [address] [id number] 0 Phone: () - 09/26 CMP BUN mg/dL 9.0 23.0 21 FINAL Oziel angelo [place] [address] [id number] 0 Phone: () - 09/26 CMP Calci um mg/dL 8.7 10.4 9.2 FINAL Oziel angelo [place] [address] [id number] 0 Phone: () - 09/26 CMP Chlor vipin mmol/L 96.0 114.0 111 FINAL Oziel angelo [address] [id number] 0 Phone: () - 09/26 CMP CO2 [...] 96 hour stability window. FINAL Oziel angelo [place] [address] [id number] 0 Phone: () - 09/26 CMP Creat inine mg/dL 0.5 1.2 0.79 FINAL Oziel angelo [place] [address] [id number] 0 Phone: () - 09/26 CMP GFR estim ate ml/min /1.73m ^2 79.1 GFR is calculate d using the CKD-EPI equation. FINAL Oziel angelo [address] [id number] 0 Phone: () - 09/26 CMP Gluco se mg/dL 73.0 126.0 83 FINAL Oziel angelo [place] [address] [id number] 0 Phone: () - 09/26 CMP Potas sium mmol/L 3.5 5.1 4.4 FINAL Oziel angelo [place] [address] [id number] 0 Phone: () - 09/26 CMP Sodiu m mmol/L 136.0 145.0 143 FINAL Oziel angelo [place] [address] [id number] 0 Phone: () - 09/26 CMP Bilir ubin, total mg/dL 0.3 1.2 0.3 FINAL Oziel angelo [place] [address] [id number] 0 Phone: () - 09/26 CMP Total prote in g/dL 5.7 8.2 6.3 FINAL Oziel angelo [place] [address] [address] [facility] [address] [id number] 0 Phone: () - 09/26 CBC w/ auto diff WBC K/uL 3.0 8.9 4.1 FINAL Oziel angelo [facility], [address] [place] [id number] 0 Phone: () - 09/26 CBC w/ auto diff HGB g/dL 11.3 15.2 11.3 FINAL Oziel Tilleyot a [facility] - [place], [address] [place] [id number] 0 Phone: () - 09/26 CBC w/ auto diff PLT K/uL 113.0 364.0 210 FINAL Oziel Tilleyot a [facility] - [place], [address] [place] [id number] 0 Phone: () - 09/26 CBC w/ auto diff Dave # (ANC) K/uL 1.6 6.6 2.4 FINAL Oziel angelo [facility] - [place], [address] [place] [id number] 0 Phone: () - 09/26 CBC w/ auto diff Dave % % 43.0 74.0 58.2 FINAL Oziel angelo [facility] - [place], [address] [place] [id number] 0 Phone: () - 09/26 CBC w/ auto diff IG % % 0.0 0.5 0.2 FINAL Oziel angelo [facility] - [place], [address] [place] [id number] 0 Phone: () - 09/26 CBC w/ auto diff IG # K/uL 0.0 0.03 0.01 FINAL Oziel Tilleyot a [facility] - [place], [address] [place] [id number] 0 Phone: () - 09/26 CBC w/ auto diff LY % % 14.0 41.0 27.0 FINAL Oziel Tilleyot a [facility] - [place], [address] [place] [id number] 0 Phone: () - 09/26 CBC w/ auto diff MO % % 6.0 15.0 10.5 FINAL Oziel Tilleyot a [facility] - [place], [address] [place] [id number] 0 Phone: () - 09/26 CBC w/ auto diff EO % % 0.0 7.0 3.6 FINAL Oziel Tilleyot a [facility] - [place], [address] [place] [id number] 0 Phone: () - 09/26 CBC w/ auto diff BA % % 0.0 2.0 0.5 FINAL Oziel Tilleyot a [facility] - [place], [address] [place] [id number] 0 Phone: () - 09/26 CBC w/ auto diff LY # K/uL 0.4 3.6 1.1 FINAL Oziel Tolbert a [facility] - [place], [address] [place] [id number] 0 Phone: () - 09/26 CBC w/ auto diff MO # K/uL 0.2 1.3 0.4 FINAL Oziel Tilleyot a [facility] - [place], [address] [place] [id number] 0 Phone: () - 09/26 CBC w/ auto diff EO # K/uL 0.0 0.6 0.2 FINAL Oziel Tilleyot a [facility] - [place], [address] [place] [id number] 0 Phone: () - 09/26 CBC w/ auto diff BA # K/uL 0.0 0.2 0.0 FINAL Oziel Tilleyot a [facility] - [place], [address] [place] [id number] 0 Phone: () - 09/26 CBC w/ auto diff NRBC % #/100W BC 0.0 0.2 0.0 FINAL Oziel Tilleyot a [facility] - [place], [address] [place] [id number] 0 Phone: () - 09/26 CBC w/ auto diff RBC M/uL 3.9 5.1 3.38 Low FINAL Oziel Box [place] a [facility] - [place], [address] [place] [id number] 0 Phone: () - 09/26 CBC w/ auto diff HCT % 35.0 48.0 34.3 Low FINAL Oziel angelo [facility] - [place], [address] [place] [id number] 0 Phone: () - 09/26 CBC w/ auto diff MCV fL 80.0 104.0 101.5 FINAL Oziel angelo [facility] - [place], [address] [place] [id number] 0 Phone: () - 09/26 CBC w/ auto diff MCH pg 26.0 35.0 33.4 FINAL Oziel angelo [facility] - [place], [address] [place] [id number] 0 Phone: () - 09/26 CBC w/ auto diff MCHC g/dL 30.0 35.0 32.9 FINAL Oziel angelo [facility] - [place], [address] [place] [id number] 0 Phone: () - 09/26 CBC w/ auto diff MPV fL 9.5 13.4 8.9 Low FINAL Oziel angelo [facility] - [place], [address] [place] [id number] 0 Phone: () - 09/26 CBC w/ auto diff RDW % 11.4 16.1 12.60 FINAL Oziel angelo [facility] - [place], [address] [place] [id number] 0 Phone: () - 10/24 T4, free panel T4, free ng/dL 0.7 1.8 1.62 Test performed at [facility] on a [employer] ay Analyzer that uses an immunoenz ymometric sandwich assay for analysis. Patient testing should not be performed using multiple kathi amador due to analytica l variation seen between test methodharley amador. FINAL Lia Delgado [facility] - [place], [address] [id number] 0 Phone: () - 10/24 CMP Album in g/dL 3.2 5.2 4.3 FINAL Lia Delgado [place] [address] [address] [facility] [address] [id number] 0 Phone: () - 10/24 CMP Alkal ine phosp hatas e U/L 46.0 116.0 59 FINAL Lia [place] [address] [address] [facility] [address] [id number] 0 Phone: () - 10/24 CMP ALT/S GPT U/L 7.0 40.0 12 FINAL [place] [address] [address] [facility] [address] [id number] 0 Phone: () - 10/24 CMP AST/S GOT U/L 13.0 40.0 22 FINAL [place] [address] [address] [facility] [address] [id number] 0 Phone: () - 10/24 CMP BUN mg/dL 9.0 23.0 16 FINAL Lia [place] [address] [address] [facility] [address] [id number] 0 Phone: () - 10/24 CMP Calci um mg/dL 8.7 10.4 9.7 FINAL [place] [address] [address] [facility] [address] [id number] 0 Phone: () - 10/24 CMP Chlor vipin mmol/L 96.0 114.0 110 FINAL [facility] [address] [id number] 0 Phone: () - 10/24 CMP CO2 [...] of the 96 hour stability window. FINAL [place] [address] [id number] 0 Phone: () - 10/24 CMP Creat inine mg/dL 0.5 1.2 0.83 FINAL Lia [address] [id number] 0 Phone: () - 10/24 CMP GFR estim ate ml/min /1.73m ^2 74.5 GFR is calculate d using the CKD-EPI equation. FINAL [address] [id number] 0 Phone: () - 10/24 CMP Gluco se mg/dL 73.0 126.0 [address] [id number] 0 Phone: () - 10/24 CMP Potas sium mmol/L 3.5 5.1 4.[address] [id number] 0 Phone: () - 10/24 CMP Sodiu m mmol/L 136.0 145.0 [address]AL [address] [id number] 0 Phone: () - 10/24 CMP Bilir ubin, total mg/dL 0.3 1.2 0.[address] [id number] 0 Phone: () - 10/24 CMP Total prote in g/dL 5.7 8.2 6.[address] [id number] 0 Phone: () - 10/24 TSH w/ refle x to free T4 TSH uIU/ml 0.32 5.0 0.05 Low Test performed at [facility] on a [employer] 2000 Immunoass ay Analyzer that uses an immunoenz ymometric sandwich assay for analysis. Patient testing should not be performed using multiple kathi amador due to analytica l variation seen between test kathi amador. FINAL Lia Tilleyot a [facility] - [place], [address] [place] [id number] 0 Phone: () - 10/24 CBC w/ auto diff WBC K/uL 3.0 8.9 5.5 FINAL Lia T[facility] a [facility] - [place], [address] [place] [id number] 0 Phone: () - 10/24 CBC w/ auto diff HGB g/dL 11.3 15.2 12.0 FINAL Lia Tolbert a [facility] - [place], [address] [place] [id number] 0 Phone: () - 10/24 CBC w/ auto diff PLT K/uL 113.0 364.0 211 FINAL Lia T[facility]leyot a [facility] - [place], [address] [place] [id number] 0 Phone: () - 10/24 CBC w/ auto diff Dave # (ANC) K/uL 1.6 6.6 3.4 FINAL Lia Tolbert a [facility] - [place], [address] [place] [id number] 0 Phone: () - 10/24 CBC w/ auto diff Dave % % 43.0 74.0 62.4 FINAL Lia Tolbert a [facility] - [place], [address] [place] [id number] 0 Phone: () - 10/24 CBC w/ auto diff IG % % 0.0 0.5 1.1 High FINAL Lia T[facility]leyot a [facility] - [place], [address] [place] [id number] 0 Phone: () - 10/24 CBC w/ auto diff IG # K/uL 0.0 0.03 0.06 High FINAL Lia Tilleyot a [facility] - [place], [address] [place] [id number] 0 Phone: () - 10/24 CBC w/ auto diff LY % % 14.0 41.0 22.2 FINAL Lia T[facility]ot a [facility] - [place], [address] [place] [id number] 0 Phone: () - 10/24 CBC w/ auto diff MO % % 6.0 15.0 10.1 FINAL Lia T[facility]ot a [facility] - [place], [address] [place] [id number] 0 Phone: () - 10/24 CBC w/ auto diff EO % % 0.0 7.0 3.8 FINAL Lia T[facility] a [facility] - [place], [address] [place] [id number] 0 Phone: () - 10/24 CBC w/ auto diff BA % % 0.0 2.0 0.4 FINAL Lia T[facility] - [place], [address] [place] [id number] 0 Phone: () - 10/24 CBC w/ auto diff LY # K/uL 0.4 3.6 1.2 FINAL Lia T[facility] a [facility] - [place], [address] [place] [id number] 0 Phone: () - 10/24 CBC w/ auto diff MO # K/uL 0.2 1.3 0.6 FINAL Lia T[facility] a [facility] - [place], [address] [place] [id number] 0 Phone: () - 10/24 CBC w/ auto diff EO # K/uL 0.0 0.6 0.2 FINAL Lia [facility] - [place], [address] [place] [id number] 0 Phone: () - 10/24 CBC w/ auto diff BA # K/uL 0.0 0.2 0.0 FINAL Lia [facility] - [place], [address] [place] [id number] 0 Phone: () - 10/24 CBC w/ auto diff NRBC % #/100W BC 0.0 0.2 0.0 FINAL Lia angelo [facility] - [place], [address] [facility] [address] [place] [id number] 0 Phone: () - 10/24 CBC w/ auto diff RBC M/uL 3.9 5.1 3.62 Low FINAL Lia angelo [facility] - [place], [address] [facility] [facility] [address] [place] [id number] 0 Phone: () - 10/24 CBC w/ auto diff HCT % 35.0 48.0 35.7 FINAL Lia angelo [facility] - [place], [address] [facility] [address] [place] [id number] 0 Phone: () - 10/24 CBC w/ auto diff MCV fL 80.0 104.0 98.6 FINAL Lia angelo [facility] - [place], [address] [facility] [address] [place] [id number] 0 Phone: () - 10/24 CBC w/ auto diff MCH pg 26.0 35.0 33.1 FINAL Lia angelo [facility] - [place], [address] [facility] [address] [place] [id number] 0 Phone: () - 10/24 CBC w/ auto diff MCHC g/dL 30.0 35.0 33.6 FINAL Lia angelo [facility] - [place], [address] [address] [place] [id number] 0 Phone: () - 10/24 CBC w/ auto diff MPV fL 9.5 13.4 9.1 Low FINAL Lia angelo [facility] - [place], [address] [place] [id number] 0 Phone: () - 10/24 CBC w/ auto diff RDW % 11.4 16.1 12.20 FINAL Lia [facility] - [place], [address] [place] [id number] 0 Phone: () - 11/21 TSH w/ refle x to free T4 TSH uIU/ml 0.32 5.0 0.16 Low Test performed at [facility] on a [employer] Immun[employer] ay Analyzer that uses an immunoenz ymometric sandwich assay for analysis. Patient testing should not be performed using multiple methodharley amador due to analytica l variation seen between test methodharley amador. FINAL Lia Tilley gi [facility] - [place], [address] [place] [id number] 0 Phone: () - 11/21 CBC w/ auto diff WBC K/uL 3.0 8.9 4.1 FINAL Lia angelo [facility] - [place], [address] [place] [address] [address] [place] [facility] [id number] 0 Phone: () - 11/21 CBC w/ auto diff HGB g/dL 11.3 15.2 11.8 FINAL Lia angelo [facility] - [place], [address] [place] [address] [address] [place] [facility] [id number] 0 Phone: () - 11/21 CBC w/ auto diff PLT K/uL 113.0 364.0 223 FINAL Lia angelo [facility] - [place], [address] [place] [address] [address] [place] [facility] [id number] 0 Phone: () - 11/21 CBC w/ auto diff Dave # (ANC) K/uL 1.6 6.6 2.3 FINAL Lia angelo [facility] - [place], [address] [place] [address] [facility] [address] [place] [facility] [id number] 0 Phone: () - 11/21 CBC w/ auto diff Dave % % 43.0 74.0 56.3 FINAL Lia angelo [facility] - [place], [address] [place] [address] d [address] [place] [facility] [id number] 0 Phone: () - 11/21 CBC w/ auto diff IG % % 0.0 0.5 0.2 FINAL Lia Tilley gi [facility] - [place], [address] [place] [address] [facility] [address] [place] [facility] [id number] 0 Phone: () - 11/21 CBC w/ auto diff IG # K/uL 0.0 0.03 0.01 FINAL Lia angelo [facility] - [place], [address] [facility] [address] [place] [id number] 0 Phone: () - 11/21 CBC w/ auto diff LY % % 14.0 41.0 29.0 FINAL Lia angelo [facility] - [place], [address] [facility] [address] [place] [id number] 0 Phone: () - 11/21 CBC w/ auto diff MO % % 6.0 15.0 10.4 FINAL Lia angelo [facility] - [place], [address] [facility] [address] [place] [id number] 0 Phone: () - 11/21 CBC w/ auto diff EO % % 0.0 7.0 3.9 FINAL Lia angelo [facility] - [place], [address] [facility] [address] [place] [id number] 0 Phone: () - 11/21 CBC w/ auto diff BA % % 0.0 2.0 0.2 FINAL Lia angelo [facility] - [place], [address] [facility] [address] [place] [id number] 0 Phone: () - 11/21 CBC w/ auto diff LY # K/uL 0.4 3.6 1.2 FINAL Lia Tolbert a [facility] - [place], [address] [facility] [address] [place] [id number] 0 Phone: () - 11/21 CBC w/ auto diff MO # K/uL 0.2 1.3 0.4 FINAL Lia angelo [facility] - [place], [address] [facility] [address] [place] [id number] 0 Phone: () - 11/21 CBC w/ auto diff EO # K/uL 0.0 0.6 0.2 FINAL Lia Tolbert a [facility] - [place], [address] [place] [id number] 0 Phone: () - 11/21 CBC w/ auto diff BA # K/uL 0.0 0.2 0.0 FINAL Lia Tolbert [facility] - [place], [address] [place] [id number] 0 Phone: () - 11/21 CBC w/ auto diff NRBC % #/100W BC 0.0 0.2 0.0 FINAL Lia Tolbert [facility] - [place], [address] [place] [id number] 0 Phone: () - 11/21 CBC w/ auto diff RBC M/uL 3.9 5.1 3.69 Low FINAL Lia Tolbert [facility] - [place], [address] [place] [id number] 0 Phone: () - 11/21 CBC w/ auto diff HCT % 35.0 48.0 35.6 FINAL Lia Tolbert [facility] - [place], [address] [place] [id number] 0 Phone: () - 11/21 CBC w/ auto diff MCV fL 80.0 104.0 96.5 FINAL Lia Tolbert [facility] - [place], [address] [place] [id number] 0 Phone: () - 11/21 CBC w/ auto diff MCH pg 26.0 35.0 32.0 FINAL Lia Tolbert a [facility] - [place], [address] [place] [id number] 0 Phone: () - 11/21 CBC w/ auto diff MCHC g/dL 30.0 35.0 33.1 FINAL Lia Tolbert a [facility] - [place], [address] [place] [id number] 0 Phone: () - 11/21 CBC w/ auto diff MPV fL 9.5 13.4 9.0 Low FINAL [facility] [address] [facility] [place] [id number] 0 Phone: () - 11/21 CBC w/ auto diff RDW % 11.4 16.1 12.40 FINAL [facility], [address] [facility] [place] [id number] 0 Phone: () - 11/21 T4, free panel T4, free ng/dL 0.7 1.8 1.13 Test performed at [facility] on a [employer] ay Analyzer that uses an immunoenz ymometric sandwich assay for analysis. Patient testing should not be performed using multiple methodharley amador due to analytica l variation seen between test methodharley amador. FINAL [facility] [address] [place] [address] [phone] 0 Phone: () - 11/21 CMP Album in g/dL 3.2 5.2 4.1 FINAL [place] [address] [address] [facility] [address] [id number] [phone] Phone: () - 11/21 CMP Alkal ine phosp hatas e U/L 46.0 116.0 52 FINAL [place] [address] [address] [facility] [address] [id number] [phone] Phone: () - 11/21 CMP ALT/S GPT U/L 7.0 40.0 17 FINAL [place] [address] [address] [facility] [address] [place] [address] [id number] [phone] Phone: () - 11/21 CMP AST/S GOT U/L 13.0 40.0 24 FINAL [place] [address] [address] [facility] [address] [place] [address] [id number] 0 Phone: () - 11/21 CMP BUN mg/dL 9.0 23.0 14 FINAL [facility] [address] [place] [address] [id number] 0 Phone: () - 11/21 CMP Calci um mg/dL 8.7 10.4 9.3 FINAL Lia [place] [address] [id number] 0 Phone: () - 11/21 CMP Chlor vipin mmol/L 96.0 114.0 111 [facility] [place] [address] [id number] 0 Phone: () - 11/21 CMP CO2 [...] of the 96 hour stability window. FINAL [place] [address] [id number] 0 Phone: () - 11/21 CMP Creat inine mg/dL 0.5 1.2 0.79 [place] [address] [id number] 0 Phone: () - 11/21 CMP GFR estim ate ml/min /1.73m ^2 79.1 GFR is calculate d using the CKD-EPI equation. [place] [address] [id number] 0 Phone: () - 11/21 CMP Gluco se mg/dL 73.0 126.0 86 [place] [address] [id number] 0 Phone: () - 11/21 CMP Potas sium mmol/L 3.5 5.1 4.5 [place] [address] [id number] 0 Phone: () - 11/21 CMP Sodiu m mmol/L 136.0 145.0 144 [place] [address] [id number] 0 Phone: () - 11/21 CMP Bilir ubin, total mg/dL 0.3 1.2 0.3 FINAL [facility] [place], [address] [place] [id number] 0 Phone: () - 11/21 CMP Total prote in g/dL 5.7 8.2 6.2 FINAL Lia [facility] [place], [address] [place] [id number] 0 Phone: () - 12/19 CBC w/ auto diff WBC K/uL 3.0 8.9 4.9 FINAL Oziel [facility] - [place], [address] [place] [id number] 0 Phone: () - 12/19 CBC w/ auto diff HGB g/dL 11.3 15.2 11.8 FINAL Oziel angelo [facility] - [place], [address] [place] [id number] 0 Phone: () - 12/19 CBC w/ auto diff PLT K/uL 113.0 364.0 218 FINAL Oziel [facility] - [place], [address] [place] [id number] 0 Phone: () - 12/19 CBC w/ auto diff Dave # (ANC) K/uL 1.6 6.6 2.7 FINAL Oziel [facility]ley[facility] gi [facility] - [place], [address] [place] [id number] 0 Phone: () - 12/19 CBC w/ auto diff Dave % % 43.0 74.0 55.3 FINAL Oziel [facility] - [place], [address] [place] [id number] 0 Phone: () - 12/19 CBC w/ auto diff IG % % 0.0 0.5 0.2 FINAL Oziel [facility] - [place], [address] [place] [id number] 0 Phone: () - 12/19 CBC w/ auto diff IG # K/uL 0.0 0.03 0.01 FINAL Oziel [facility] - [place], [address] [place] [id number] 0 Phone: () - 12/19 CBC w/ auto diff LY % % 14.0 41.0 30.6 FINAL Oziel [facility] - [place], [address] [place] [id number] 0 Phone: () - 12/19 CBC w/ auto diff MO % % 6.0 15.0 9.3 FINAL Oziel [facility] - [place], [address] [place] [id number] 0 Phone: () - 12/19 CBC w/ auto diff EO % % 0.0 7.0 4.0 FINAL Oziel [facility] - [place], [address] [place] [id number] 0 Phone: () - 12/19 CBC w/ auto diff BA % % 0.0 2.0 0.6 FINAL Oziel [facility] - [place], [address] [place] [id number] 0 Phone: () - 12/19 CBC w/ auto diff LY # K/uL 0.4 3.6 1.5 FINAL Oziel [facility] - [place], [address] [place] [id number] 0 Phone: () - 12/19 CBC w/ auto diff MO # K/uL 0.2 1.3 0.5 FINAL Oziel [facility] - [place], [address] [place] [id number] 0 Phone: () - 12/19 CBC w/ auto diff EO # K/uL 0.0 0.6 0.2 FINAL Oz[facility] - [place], [address] [place] [id number] 0 Phone: () - 12/19 CBC w/ auto diff BA # K/uL 0.0 0.2 0.0 FINAL Oz[facility] - [place], [address] [place] [id number] 0 Phone: () - 12/19 CBC w/ auto diff NRBC % #/100W BC 0.0 0.2 0.0 FINAL Oz[facility] - [place], [address] [place] [id number] 0 Phone: () - 12/19 CBC w/ auto diff RBC M/uL 3.9 5.1 3.68 Low FINAL Oziel [facility] - [place], [address] [place] [id number] 0 Phone: () - 12/19 CBC w/ auto diff HCT % 35.0 48.0 35.3 FINAL [facility] - [place], [address] [place] [id number] 0 Phone: () - 12/19 CBC w/ auto diff MCV fL 80.0 104.0 95.9 FINAL Oz[facility] - [place], [address] [place] [id number] 0 Phone: () - 12/19 CBC w/ auto diff MCH pg 26.0 35.0 32.1 FINAL Oziel angelo [facility] - [place], [address] [place] [id number] 0 Phone: () - 12/19 CBC w/ auto diff MCHC g/dL 30.0 35.0 33.4 FINAL Oz[facility] - [place], [address] [place] [id number] 0 Phone: () - 12/19 CBC w/ auto diff MPV fL 9.5 13.4 9.1 Low FINAL Oziel [facility] - [place], [address] [place] [id number] 0 Phone: () - 12/19 CBC w/ auto diff RDW % 11.4 16.1 13.30 FINAL Oziel angelo [facility], [address] [facility] [id number] 0 Phone: () - 12/19 TSH w/ refle x to free T4 TSH uIU/ml 0.32 5.0 2.75 Test performed at [facility] on a [employer] Immunoass ay Analyzer that uses an immunoenz ymometric sandwich assay for analysis. Patient testing should not be performed using multiple methodolo gies due to analytica l variation seen between test methodolo gies. FINAL Oziel angelo [place] [address] [address] [facility] [address] [place] [address] [id number] 0 Phone: () - 12/19 CMP Album in g/dL 3.2 5.2 4.0 FINAL Oziel angelo [place] [address] [address] [facility] [address] [place] [address] [id number] 0 Phone: () - 12/19 CMP Alkal ine phosp hatas e U/L 46.0 116.0 58 FINAL Oziel angelo [facility], [address] [facility] [address] [place] [address] [id number] 0 Phone: () - 12/19 CMP ALT/S GPT U/L 7.0 40.0 13 FINAL Oziel angelo [facility] [address] [facility] [address] [place] [address] [id number] 0 Phone: () - 12/19 CMP AST/S GOT U/L 13.0 40.0 24 FINAL Oziel angelo [facility] [address] [facility] [address] [place] [address] [id number] 0 Phone: () - 12/19 CMP BUN mg/dL 9.0 23.0 18 FINAL Oziel angelo [place] [address] [address] [facility] [address] [id number] 0 Phone: () - 12/19 CMP Calci um mg/dL 8.7 10.4 9.7 FINAL Oziel angelo [place] [address] [address] [facility] [address] [place] [address] [id number] 0 Phone: () - 12/19 CMP Chlor vipin mmol/L 96.0 114.0 111 FINAL Oziel angelo [facility] [address] [id number] 0 Phone: () - 12/19 CMP CO2 [...] 96 hour stability window. FINAL Oziel angelo [place] [address] [id number] 0 Phone: () - 12/19 CMP Creat inine mg/dL 0.5 1.2 0.82 FINAL Oizel angelo [place] [address] [id number] 0 Phone: () - 12/19 CMP GFR estim ate ml/min /1.73m ^2 75.6 GFR is calculate d using the CKD-EPI equation. FINAL Oziel angelo [place] [address] [id number] 0 Phone: () - 12/19 CMP Gluco se mg/dL 73.0 126.0 81 FINAL Oziel angelo [facility] [address] [facility] [address] [id number] 0 Phone: () - 12/19 CMP Potas sium mmol/L 3.5 5.1 4.4 FINAL Oziel angelo [place] [address] [address] [facility] [address] [id number] 0 Phone: () - 12/19 CMP Sodiu m mmol/L 136.0 145.0 144 FINAL Oziel angelo [place] [address] [address] [facility] [address] [id number] 0 Phone: () - 12/19 CMP Bilir ubin, total mg/dL 0.3 1.2 0.4 FINAL Oziel angelo [facility] [address] [facility] [address] [id number] 0 Phone: () - 12/19 CMP Total prote in g/dL 5.7 8.2 6.3 FINAL Oziel [facility] [place], [address] [place] [id number] 0 Phone: () - 01/12 [facility] other lab See patrol conductor d 01/16 CBC w/ auto diff WBC K/uL 3.0 8.9 4.4 FINAL Oziel Tolbert [facility] - [place], [address] [place] [id number] 0 Phone: () - 01/16 CBC w/ auto diff HGB g/dL 11.3 15.2 11.9 FINAL Oziel [facility]bert [facility] - [place], [address] [place] [id number] 0 Phone: () - 01/16 CBC w/ auto diff PLT K/uL 113.0 364.0 231 FINAL Oziel angelo [facility] - [place], [address] [place] [id number] 0 Phone: () - 01/16 CBC w/ auto diff Dave # (ANC) K/uL 1.6 6.6 2.4 FINAL Oziel angelo [facility] - [place], [address] [place] [id number] 0 Phone: () - 01/16 CBC w/ auto diff Dave % % 43.0 74.0 54.7 FINAL Oziel angelo [facility] - [place], [address] [place] [id number] 0 Phone: () - 01/16 CBC w/ auto diff IG % % 0.0 0.5 0.2 FINAL Oziel angelo [facility] - [place], [address] [place] [id number] 0 Phone: () - 01/16 CBC w/ auto diff IG # K/uL 0.0 0.03 0.01 FINAL Oziel [facility]bert [facility] - [place], [address] [place] [id number] 0 Phone: () - 01/16 CBC w/ auto diff LY % % 14.0 41.0 31.8 FINAL Oziel [facility] - [place], [address] [place] [id number] 0 Phone: () - 01/16 CBC w/ auto diff MO % % 6.0 15.0 8.9 FINAL Oz[facility] - [place], [address] [place] [id number] 0 Phone: () - 01/16 CBC w/ auto diff EO % % 0.0 7.0 3.9 FINAL [facility] - [place], [address] [place] [id number] 0 Phone: () - 01/16 CBC w/ auto diff BA % % 0.0 2.0 0.5 FINAL Oziel angelo [facility] - [place], [address] [place] [id number] 0 Phone: () - 01/16 CBC w/ auto diff LY # K/uL 0.4 3.6 1.4 FINAL Oziel angelo [facility] - [place], [address] [place] [id number] 0 Phone: () - 01/16 CBC w/ auto diff MO # K/uL 0.2 1.3 0.4 FINAL Oziel angelo [facility] - [place], [address] [place] [id number] 0 Phone: () - 01/16 CBC w/ auto diff EO # K/uL 0.0 0.6 0.2 FINAL Oziel [facility] - [place], [address] [place] [id number] 0 Phone: () - 01/16 CBC w/ auto diff BA # K/uL 0.0 0.2 0.0 FINAL Oziel [facility] - [place], [address] [place] [id number] 0 Phone: () - 01/16 CBC w/ auto diff NRBC % #/100W BC 0.0 0.2 0.0 FINAL Oz[facility] - [place], [address] [place] [id number] 0 Phone: () - 01/16 CBC w/ auto diff RBC M/uL 3.9 5.1 3.69 Low FINAL Oz[facility] - [place], [address] [place] [id number] 0 Phone: () - 01/16 CBC w/ auto diff HCT % 35.0 48.0 35.0 FINAL Oz[facility] - [place], [address] [place] [id number] 0 Phone: () - 01/16 CBC w/ auto diff MCV fL 80.0 104.0 94.9 FINAL [facility] - [place], [address] [place] [id number] 0 Phone: () - 01/16 CBC w/ auto diff MCH pg 26.0 35.0 32.2 FINAL Oz[facility] - [place], [address] [place] [id number] 0 Phone: () - 01/16 CBC w/ auto diff MCHC g/dL 30.0 35.0 34.0 FINAL Oz[facility] - [place], [address] [place] [id number] 0 Phone: () - 01/16 CBC w/ auto diff MPV fL 9.5 13.4 8.8 Low FINAL Oz[facility] - [place], [address] [place] [id number] 0 Phone: () - 01/16 CBC w/ auto diff RDW % 11.4 16.1 13.90 FINAL Oziel [facility] - [place], [address] [facility] [id number] Phone: () - 01/16 CMP Album in g/dL 3.2 5.2 4.3 FINAL Oziel angelo [facility], [address] [facility] [id number] Phone: () - 01/16 CMP Alkal ine phosp hatas e U/L 46.0 116.0 64 FINAL Oziel angelo [facility] [address] [place] [address] [id number] 0 Phone: () - 01/16 CMP ALT/S GPT U/L 7.0 40.0 12 FINAL Oziel angelo [place] [address] [facility] [id number] 0 Phone: () - 01/16 CMP AST/S GOT U/L 13.0 40.0 23 FINAL Oziel angelo [place] [address] [place] [address] [id number] 0 Phone: () - 01/16 CMP BUN mg/dL 9.0 23.0 17 FINAL Oziel angelo [place] [address] [place] [address] [id number] 0 Phone: () - 01/16 CMP Calci um mg/dL 8.7 10.4 9.4 FINAL Oziel angelo [facility] [address] [id number] 0 Phone: () - 01/16 CMP Chlor vipin mmol/L 96.0 114.0 108 FINAL Oziel angelo [facility], [address] [place] [address] [id number] 0 Phone: () - 01/16 CMP CO2 [...] 96 hour stability window. FINAL Oziel [address] [id number] 0 Phone: () - 01/16 CMP Creat inine mg/dL 0.5 1.2 1.07 FINAL Oziel nagelo [address] [id number] 0 Phone: () - 01/16 CMP GFR estim ate ml/min /1.73m ^2 54.9 Low GFR is calculate d using the CKD-EPI equation. FINAL Oziel angelo [address] [id number] 0 Phone: () - 01/16 CMP Gluco se mg/dL 73.0 126.0 84 FINAL Oziel angelo [address] [id number] 0 Phone: () - 01/16 CMP Potas sium mmol/L 3.5 5.1 4.4 FINAL Oziel angelo [address] [id number] 0 Phone: () - 01/16 CMP Sodiu m mmol/L 136.0 145.0 141 FINAL Oziel angelo [address] [id number] 0 Phone: () - 01/16 CMP Bilir ubin, total mg/dL 0.3 1.2 0.4 FINAL Oziel angelo [address] [id number] 0 Phone: () - 01/16 CMP Total prote in g/dL 5.7 8.2 6.6 FINAL Oziel angelo [address] [id number] [phone] Phone: () - 01/16 TSH w/ refle x to free T4 TSH uIU/ml 0.32 5.0 14.74 High Provider Alert. Notified Vicki by Lynne Flannery on 01/19/2022 at 2:55 PM.Test performed at [facility] on a Shay[employer] Foods[employer] ay Analyzer that uses an immunoenz ymometric sandwich assay for analysis. Patient testing should not be performed using multiple methodolo gies due to analytica l variation seen between test methodolo gies. FINAL Oziel angelo [facility] [place], [address] [facility] [id number] 0 Phone: () - 01/16 T4, free panel T4, free ng/dL 0.7 1.8 0.75 Test performed at [facility] on a [employer] 2000 Immunoass ay Analyzer that uses an immunoenz ymometric sandwich assay for analysis. Patient testing should not be performed using multiple methodolo gies due to analytica l variation seen between test methodolo gies. FINAL Oziel angelo [facility] [place], [address] [facility] [id number] 0 Phone: () - 02/20 TSH w/ refle x to free T4 TSH uIU/ml 0.32 5.0 Sent to [facility] Lab. Hard copy results availab le only. Test performed at [facility] on a [employer] 2000 Immunoass ay Analyzer that uses an immunoenz ymometric sandwich assay for analysis. Patient testing should not be performed using multiple methodolo gies due to analytica l variation seen between test methodolo gies. FINAL Oziel angelo [facility] [place], [address] [facility] [id number] 0 Phone: () - 02/20 T4, free panel T4, free ng/dL 0.7 1.8 1.01 Test Performed by:[facility] [address] - [facility] [place] [id number] e [phone] FINAL Oziel Box 02/20 TSH uIU/mL 0.35 4.94 8.74 High In Adults, TSH values between 5.00 and 10.00 uIU/ml do notnecess arily indicate the presence of Hypothyro idism.Cor relation with clinical findings such as presence of goiterand /or Thyropero xidase (TPO) Antibody may be helpful. Formore informati on please refer to MAYELA 2004; 291: 228-238.T est Performed by:[facility] [address] - [facility] [place] [id number] e : FINAL Oziel Box 05/08 CMP Album in g/dL 3.2 5.2 4.0 FINAL Oziel angelo [facility], [address] [place] [address] [id number] 0 Phone: () - 05/08 CMP Alkal ine phosp hatas e U/L 46.0 116.0 56 FINAL Oziel angelo [facility], [address] [facility] [id number] 0 Phone: () - 05/08 CMP ALT/S GPT U/L 7.0 40.0 17 FINAL Oziel angelo [facility] [address] [id number] 0 Phone: () - 05/08 CMP AST/S GOT U/L 13.0 40.0 21 FINAL Oziel angelo [facility] [address] [id number] 0 Phone: () - 05/08 CMP BUN mg/dL 9.0 23.0 22 FINAL Oziel angelo [facility] [address] [facility] [address] [id number] 0 Phone: () - 05/08 CMP Calci um mg/dL 8.7 10.4 9.3 FINAL Oziel angelo [facility] [address] [facility] [address] [id number] 0 Phone: () - 05/08 CMP Chlor vipin mmol/L 96.0 114.0 112 FINAL Oziel angelo [facility] [address] [facility] [address] [id number] 0 Phone: () - 05/08 CMP CO2 [...] 96 hour stability window. FINAL Oziel angelo [facility], [address] [place] [address] [id number] 0 Phone: () - 05/08 CMP Creat inine mg/dL 0.5 1.2 0.86 FINAL Oziel angelo [place] [address] [address] [facility] [address] [place] [address] [id number] 0 Phone: () - 05/08 CMP GFR estim ate ml/min /1.73m ^2 71.2 GFR is calculate d using the CKD-EPI equation. FINAL Oziel angelo [place] [address] [id number] 0 Phone: () - 05/08 CMP Gluco se mg/dL 73.0 126.0 77 FINAL Oziel angelo [place] [address] [address] [facility] [address] [place] [address] [id number] 0 Phone: () - 05/08 CMP Potas sium mmol/L 3.5 5.1 3.9 FINAL Oziel angelo [place] [address] [id number] 0 Phone: () - 05/08 CMP Sodiu m mmol/L 136.0 145.0 148 High FINAL Oziel angelo [place] [address] [address] [facility] [address] [place] [address] [id number] 0 Phone: () - 05/08 CMP Bilir ubin, total mg/dL 0.3 1.2 0.4 FINAL Oziel angelo [place] [address] [address] [facility] [address] [place] [address] [id number] 0 Phone: () - 05/08 CMP Total prote in g/dL 5.7 8.2 6.1 FINAL Oziel angelo [place] [address] [address] [facility] [address] [place] [address] [id number] 0 Phone: () - 05/08 CBC w/ auto diff WBC K/uL 3.0 8.9 7.3 FINAL Oziel angelo [facility] - [place], [address] [place] [id number] 0 Phone: () - 05/08 CBC w/ auto diff HGB g/dL 11.3 15.2 11.0 Low FINAL Oziel angelo [facility] - [place], [address] [place] [id number] 0 Phone: () - 05/08 CBC w/ auto diff PLT K/uL 113.0 364.0 210 FINAL Oziel Tilleyot [facility] - [place], [address] [place] [id number] 0 Phone: () - 05/08 CBC w/ auto diff Dave # (ANC) K/uL 1.6 6.6 3.7 FINAL Oziel [facility] - [place], [address] [place] [id number] 0 Phone: () - 05/08 CBC w/ auto diff Dave % % 43.0 74.0 51.1 FINAL Oziel [facility] - [place], [address] [place] [id number] 0 Phone: () - 05/08 CBC w/ auto diff IG % % 0.0 0.5 0.3 FINAL Oziel angelo [facility] - [place], [address] [place] [id number] 0 Phone: () - 05/08 CBC w/ auto diff IG # K/uL 0.0 0.03 0.02 FINAL Oziel Tolbert a [facility] - [place], [address] [place] [id number] 0 Phone: () - 05/08 CBC w/ auto diff LY % % 14.0 41.0 37.9 FINAL Oziel [facility] - [place], [address] [place] [id number] 0 Phone: () - 05/08 CBC w/ auto diff MO % % 6.0 15.0 9.2 FINAL Oziel [facility] - [place], [address] [place] [id number] 0 Phone: () - 05/08 CBC w/ auto diff EO % % 0.0 7.0 1.2 FINAL Oziel [facility] - [place], [address] [place] [id number] 0 Phone: () - 05/08 CBC w/ auto diff BA % % 0.0 2.0 0.3 FINAL Oziel angelo [facility] - [place], [address] [place] [id number] 0 Phone: () - 05/08 CBC w/ auto diff LY # K/uL 0.4 3.6 2.8 FINAL Oziel angelo [facility] - [place], [address] [place] [id number] 0 Phone: () - 05/08 CBC w/ auto diff MO # K/uL 0.2 1.3 0.7 FINAL Oziel angelo [facility] - [place], [address] [place] [id number] 0 Phone: () - 05/08 CBC w/ auto diff EO # K/uL 0.0 0.6 0.1 FINAL Oziel angelo [facility] - [place], [address] [place] [id number] 0 Phone: () - 05/08 CBC w/ auto diff BA # K/uL 0.0 0.2 0.0 FINAL Oziel angelo [facility] - [place], [address] [place] [id number] 0 Phone: () - 05/08 CBC w/ auto diff NRBC % #/100W BC 0.0 0.2 0.0 FINAL Oziel angelo [facility] - [place], [address] [place] [id number] 0 Phone: () - 05/08 CBC w/ auto diff RBC M/uL 3.9 5.1 3.27 Low FINAL Oziel angelo [facility] - [place], [address] [place] [id number] 0 Phone: () - 05/08 CBC w/ auto diff HCT % 35.0 48.0 32.1 Low FINAL Oziel angelo [facility] - [place], [address] [place] [id number] 0 Phone: () - 05/08 CBC w/ auto diff MCV fL 80.0 104.0 98.2 FINAL Oziel angelo [facility] - [place], [address] [place] [id number] 0 Phone: () - 05/08 CBC w/ auto diff MCH pg 26.0 35.0 33.6 FINAL Oziel angelo [facility] - [place], [address] [place] [id number] 0 Phone: () - 05/08 CBC w/ auto diff MCHC g/dL 30.0 35.0 34.3 FINAL Oziel angelo [facility] - [place], [address] [place] [id number] 0 Phone: () - 05/08 CBC w/ auto diff MPV fL 9.5 13.4 9.4 Low FINAL Oziel angelo [facility] - [place], [address] [place] [id number] 0 Phone: () - 05/08 CBC w/ auto diff RDW % 11.4 16.1 13.10 FINAL Oziel angelo [facility] - [place], [address] [place] [id number] 0 Phone: () - 05/08 TSH w/ refle x to free T4 TSH uIU/ml 0.32 5.0 1.36 Test performed at [facility] on a [employer] Immun[employer] ay Analyzer that uses an immunoenz ymometric sandwich assay for analysis. Patient testing should not be performed using multiple methodharley amador due to analytica l variation seen between test methodharley amador. FINAL Oziel angelo [facility], [address] [place] [phone] 0 Phone: () - 07/23 [facility] other lab See patrol conductor d 07/23 [facility] other lab See patrol conductor d 11/03 CMP Album in g/dL 3.2 5.2 4.1 FINAL Oziel angelo [facility], [address] [facility] [address] [facility] [id number] 0 Phone: () - 11/03 CMP Alkal ine phosp hatas e U/L 46.0 116.0 59 FINAL Oziel angelo [facility], [address] [facility] 100 [facility] [id number] 0 Phone: () - 11/03 CMP ALT/S GPT U/L 7.0 40.0 <7 FINAL Oziel angelo [facility], [address] [facility] [facility] 100 [facility] [id number] 0 Phone: () - 11/03 CMP AST/S GOT U/L 13.0 40.0 24 FINAL Oziel angelo [facility], [address] [facility] 100 [facility] [id number] 0 Phone: () - 11/03 CMP BUN mg/dL 9.0 23.0 16.0 FINAL Oziel angelo [facility] [address] [facility] 100 [facility] [id number] 0 Phone: () - 11/03 CMP Calci um mg/dL 8.7 10.4 9.1 FINAL Oziel angelo [facility], [address] [facility] 100 [facility] [id number] 0 Phone: () - 11/03 CMP Chlor vipin mmol/L 96.0 114.0 105 FINAL Oziel angelo [facility], [address] [id number] 0 Phone: () - 11/03 CMP CO2 [...] 96 hour stability window. FINAL Oziel angelo [facility], [address] [facility] [facility] [facility] [id number] 0 Phone: () - 11/03 CMP Creat inine mg/dL 0.5 1.2 0.88 FINAL Oziel angelo [facility], [address] [facility] [address] [id number] 0 Phone: () - 11/03 CMP GFR estim ate ml/min /1.73m ^2 69.0 GFR is calculate d using the CKD-EPI equation. FINAL Oziel angelo [facility] [address] [id number] 0 Phone: () - 11/03 CMP Gluco se mg/dL 73.0 126.0 105 FINAL Oziel angelo [facility] [address] [id number] 0 Phone: () - 11/03 CMP Potas sium mmol/L 3.5 5.1 4.4 FINAL Oziel angelo [facility] [address] [id number] 0 Phone: () - 11/03 CMP Sodiu m mmol/L 136.0 145.0 139 FINAL Oziel angelo [facility] [address] [id number] 0 Phone: () - 11/03 CMP Bilir ubin, total mg/dL 0.3 1.2 0.6 FINAL Oziel angelo [place] [address] [id number] 0 Phone: () - 11/03 CMP Total prote in g/dL 5.7 8.2 6.6 FINAL Oziel angelo [place] [address] [id number] 0 Phone: () - 11/03 CBC w/ auto diff WBC K/uL 3.0 8.9 4.7 FINAL Oziel angelo [facility] [place], [address] [place] [id number] 0 Phone: () - 11/03 CBC w/ auto diff HGB g/dL 11.3 15.2 11.6 FINAL Oziel nagelo [facility] [place], [address] [facility] [place] [id number] 0 Phone: () - 11/03 CBC w/ auto diff PLT K/uL 113.0 364.0 248 FINAL Oziel Tilleyot a [facility] - [place], [address] [place] [id number] 0 Phone: () - 11/03 CBC w/ auto diff Dave # (ANC) K/uL 1.6 6.6 2.9 FINAL Oziel Tilleyot a [facility] - [place], [address] [place] [id number] 0 Phone: () - 11/03 CBC w/ auto diff Dave % % 43.0 74.0 60.9 FINAL Oziel Tilleyot a [facility] - [place], [address] [place] [id number] 0 Phone: () - 11/03 CBC w/ auto diff IG % % 0.0 0.5 0.4 FINAL Oziel Tilleyot a [facility] - [place], [address] [place] [id number] 0 Phone: () - 11/03 CBC w/ auto diff IG # K/uL 0.0 0.03 0.02 FINAL Oziel Tilleyot a [facility] - [place], [address] [place] [id number] 0 Phone: () - 11/03 CBC w/ auto diff LY % % 14.0 41.0 26.8 FINAL Oziel Tilleyot a [facility] - [place], [address] [place] [id number] 0 Phone: () - 11/03 CBC w/ auto diff MO % % 6.0 15.0 8.5 FINAL Oziel iTlleyot a [facility] - [place], [address] [place] [id number] 0 Phone: () - 11/03 CBC w/ auto diff EO % % 0.0 7.0 3.0 FINAL Oziel Tilleyot a [facility] - [place], [address] [place] [id number] 0 Phone: () - 11/03 CBC w/ auto diff BA % % 0.0 2.0 0.4 FINAL Oziel Tilleyot a [facility] - [place], [address] [place] [id number] 0 Phone: () - 11/03 CBC w/ auto diff LY # K/uL 0.4 3.6 1.3 FINAL Oziel Tilleyot a [facility] - [place], [address] [place] [id number] 0 Phone: () - 11/03 CBC w/ auto diff MO # K/uL 0.2 1.3 0.4 FINAL Oziel Tilleyot a [facility] - [place], [address] [place] [id number] 0 Phone: () - 11/03 CBC w/ auto diff EO # K/uL 0.0 0.6 0.1 FINAL Oziel Tilleyot gi [facility] - [place], [address] [place] [id number] 0 Phone: () - 11/03 CBC w/ auto diff BA # K/uL 0.0 0.2 0.0 FINAL Oziel Tilleyot gi [facility] - [place], [address] [place] [id number] 0 Phone: () - 11/03 CBC w/ auto diff NRBC % #/100W BC 0.0 0.2 0.0 FINAL Oziel Tilleyot gi [facility] - [place], [address] [place] [id number] 0 Phone: () - 11/03 CBC w/ auto diff RBC M/uL 3.9 5.1 3.52 Low FINAL Oziel angelo [facility] [place], [address] [place] [id number] 0 Phone: () - 11/03 CBC w/ auto diff HCT % 35.0 48.0 34.2 Low FINAL Oziel Tilleyot gi [facility] - [place], [address] [place] [id number] 0 Phone: () - 11/03 CBC w/ auto diff MCV fL 80.0 104.0 97.2 FINAL Oziel angelo [facility] [place], [facility] [address] [facility] [address] [facility] [place] [id number] 0 Phone: () - 11/03 CBC w/ auto diff MCH pg 26.0 35.0 33.0 FINAL Oziel angelo [facility] [place], [address] [place] [address] [address] [place] [id number] 0 Phone: () - 11/03 CBC w/ auto diff MCHC g/dL 30.0 35.0 33.9 FINAL Oziel angelo [facility] - [place], [facility] [address] [facility] [address] [place] [id number] 0 Phone: () - 11/03 CBC w/ auto diff MPV fL 9.5 13.4 8.7 Low FINAL Oziel angelo [facility] [place], [address] [place] [address] [address] [place] [id number] 0 Phone: () - 11/03 CBC w/ auto diff RDW % 11.4 16.1 14.40 FINAL Oziel angelo [facility] [place], [address] [place] [address] [address] [facility] [place] [id number] 0 Phone: () - 02/08 CMP Album in g/dL 3.2 5.2 4.0 FINAL Oziel angelo [facility], [address] [place] [address] [id number] 0 Phone: () - 02/08 CMP Alkal ine phosp hatas e U/L 46.0 116.0 83 FINAL Oziel angelo [facility], [address] [facility] [id number] 0 Phone: () - 02/08 CMP ALT/S GPT U/L 7.0 40.0 <7 FINAL Oziel angelo [facility], [address] [facility] [id number] 0 Phone: () - 02/08 CMP AST/S GOT U/L 13.0 40.0 23 FINAL Oziel angelo [facility] [address] [facility] 100 [facility] [id number] 0 Phone: () - 02/08 CMP BUN mg/dL 9.0 23.0 17.0 FINAL Oziel angelo [facility] [address] [facility] 100 [facility] [id number] 0 Phone: () - 02/08 CMP Calci um mg/dL 8.7 10.4 8.8 FINAL Oziel angelo [place] [address] [address] [facility] 100 [facility] [id number] 0 Phone: () - 02/08 CMP Chlor vipin mmol/L 96.0 114.0 109 FINAL Oziel angelo [place] [address] [id number] 0 Phone: () - 02/08 CMP CO2 [...] 96 hour stability window. FINAL Oziel angelo [place] [address] [id number] 0 Phone: () - 02/08 CMP Creat inine mg/dL 0.5 1.2 0.86 FINAL Oziel angelo [place] [address] [id number] 0 Phone: () - 02/08 CMP GFR estim ate ml/min /1.73m ^2 70.9 GFR is calculate d using the CKD-EPI equation. FINAL Oziel angelo [place] [address] [id number] 0 Phone: () - 02/08 CMP Gluco se mg/dL 73.0 126.0 84 FINAL Oziel angelo [place] [address] [id number] 0 Phone: () - 02/08 CMP Potas sium mmol/L 3.5 5.1 4.5 FINAL Oziel angelo [facility], [address] [facility] [id number] 0 Phone: () - 02/08 CMP Sodiu m mmol/L 136.0 145.0 141 FINAL Oziel angelo [facility], [address] [facility] [id number] 0 Phone: () - 02/08 CMP Bilir ubin, total mg/dL 0.3 1.2 0.3 FINAL Oziel angelo [facility], [address] [facility] [id number] 0 Phone: () - 02/08 CMP Total prote in g/dL 5.7 8.2 6.1 FINAL Oziel angelo [facility], [address] [facility] [address] [facility] [id number] 0 Phone: () - 02/08 TSH w/ refle x to free T4 TSH uIU/ml 0.32 5.0 3.61 Test performed at [facility] on a [employer] Immunoass ay Analyzer that uses an immunoenz ymometric sandwich assay for analysis. Patient testing should not be performed using multiple methodharley amador due to analytica l variation seen between test methodharley amador. FINAL Oziel angelo [facility], [address] [facility] [facility] [address] [facility] [id number] 0 Phone: () - 02/08 CBC w/ auto diff WBC K/uL 3.0 8.9 4.7 FINAL Oziel angelo [facility] [place], [address] [facility] [address] [facility] [id number] 0 Phone: () - 02/08 CBC w/ auto diff HGB g/dL 11.3 15.2 11.0 Low FINAL Oziel angelo [facility] - [place], [address] [facility] [id number] 0 Phone: () - 02/08 CBC w/ auto diff PLT K/uL 113.0 364.0 194 FINAL Oziel angelo [facility] [place], [address] [facility] [facility] [address] [facility] [id number] 0 Phone: () - 02/08 CBC w/ auto diff Dave # (ANC) K/uL 1.6 6.6 2.7 FINAL Oziel angelo [facility] - [place], [address] [place] [id number] 0 Phone: () - 02/08 CBC w/ auto diff Dave % % 43.0 74.0 57.2 FINAL Oziel Tilleyot gi [facility] - [place], [address] [place] [id number] 0 Phone: () - 02/08 CBC w/ auto diff IG % % 0.0 0.5 0.4 FINAL Oziel Tolbert a [facility] - [place], [address] [place] [id number] 0 Phone: () - 02/08 CBC w/ auto diff IG # K/uL 0.0 0.03 0.02 FINAL Oziel angelo [facility] [place], [address] [place] [id number] 0 Phone: () - 02/08 CBC w/ auto diff LY % % 14.0 41.0 31.6 FINAL Oziel angelo [facility] - [place], [address] [place] [id number] 0 Phone: () - 02/08 CBC w/ auto diff MO % % 6.0 15.0 8.0 FINAL Oziel angelo [facility] [place], [address] [place] [id number] 0 Phone: () - 02/08 CBC w/ auto diff EO % % 0.0 7.0 2.2 FINAL Oziel Tilleyot a [facility] - [place], [address] [place] [id number] 0 Phone: () - 02/08 CBC w/ auto diff BA % % 0.0 2.0 0.6 FINAL Oziel Tilleyot a [facility] - [place], [address] [place] [id number] 0 Phone: () - 02/08 CBC w/ auto diff LY # K/uL 0.4 3.6 1.5 FINAL Oziel angelo [facility] - [place], [address] [place] [id number] 0 Phone: () - 02/08 CBC w/ auto diff MO # K/uL 0.2 1.3 0.4 FINAL Oziel Tolbert a [facility] - [place], [address] [place] [id number] 0 Phone: () - 02/08 CBC w/ auto diff EO # K/uL 0.0 0.6 0.1 FINAL Oziel angelo [facility] - [place], [address] [place] [id number] 0 Phone: () - 02/08 CBC w/ auto diff BA # K/uL 0.0 0.2 0.0 FINAL Oziel angelo [facility] - [place], [address] [place] [id number] 0 Phone: () - 02/08 CBC w/ auto diff NRBC % #/100W BC 0.0 0.2 0.0 FINAL Oziel angelo [facility] [place], [address] [place] [id number] 0 Phone: () - 02/08 CBC w/ auto diff RBC M/uL 3.9 5.1 3.26 Low FINAL Oziel angelo [facility] - [place], [address] [place] [id number] 0 Phone: () - 02/08 CBC w/ auto diff HCT % 35.0 48.0 32.9 Low FINAL Oziel angelo [facility] - [place], [address] [place] [id number] 0 Phone: () - 02/08 CBC w/ auto diff MCV fL 80.0 104.0 100.9 FINAL Oziel Tilleyot a [facility] - [place], [address] [place] [id number] 0 Phone: () - 02/08 CBC w/ auto diff MCH pg 26.0 35.0 33.7 FINAL Oziel Tilleyot a [facility] - [place], [address] [place] [id number] 0 Phone: () - 02/08 CBC w/ auto diff MCHC g/dL 30.0 35.0 33.4 FINAL Oziel Tilleyot a [facility] - [place], [address] [place] [id number] 0 Phone: () - 02/08 CBC w/ auto diff MPV fL 9.5 13.4 9.0 Low FINAL Oziel Tilleyot a [facility] - [place], [address] [place] [id number] 0 Phone: () - 02/08 CBC w/ auto diff RDW % 11.4 16.1 13.70 FINAL Oziel Tilleyot a [facility] - [place], [address] [facility] [address] [place] [id number] 0 Phone: () - 06/06 [facility] other lab See patrol conductor d 08/09 CMP Album in g/dL 3.5 5.0 4.1 FINAL Oziel Box * [facility] [place], [address] [facility] [place] [id number] 0 08/09 CMP Alkal ine phosp hatas e U/L 36.0 125.0 66 FINAL Oziel Box * [facility] [place], [address] [facility] [place] [id number] 0 08/09 CMP ALT/S GPT U/L 0.0 34.0 6 FINAL Oziel Box * [place] [facility] [place], [address] [facility] [place] [id number] 0 08/09 CMP AST/S GOT U/L 14.0 36.0 28 FINAL Oziel Tilleyot a [facility], [address] [facility] [id number] 0 08/09 CMP BUN mg/dL 7.0 17.0 17.0 FINAL Oziel Tilleyot a [facility], [address] [id number] 0 08/09 CMP Calci um mg/dL 8.4 10.2 9.4 FINAL Oziel Tilleyot a [facility], [address] [id number] 0 08/09 CMP Chlor vipin mmol/L 96.0 107.0 106 [facility], [address] [id number] 0 08/09 CMP CO2 mmol/L 22.0 30.0 [...] the 96 hour stability window. FINAL [facility], [address] [facility] [id number] 0 08/09 CMP Creat inine mg/dL 0.66 1.25 0.70 FINAL Oziel Tilleyot a [facility], [address] [facility] [id number] 0 08/09 CMP GFR estim ate ml/min /1.73m ^2 90.4 GFR is calculate d using the CKD-EPI equation. FINAL Oziel Tilleyot [facility], [address] [facility] [id number] 0 08/09 CMP Gluco se mg/dL 74.0 100.0 87 FINAL Oziel Box * [facility], [address] [id number] 0 08/09 CMP Potas sium mmol/L 3.5 5.1 4.2 FINAL Oziel Box * [facility], [address] [id number] 0 08/09 CMP Sodiu m mmol/L 137.0 145.0 139 FINAL Oziel Box * [place] [facility], [address] [facility] [address] [id number] 0 08/09 CMP Bilir ubin, total mg/dL 0.2 1.3 0.3 FINAL Oziel Box * [facility], [address] [id number] 0 08/09 CMP Total prote in g/dL 6.3 8.2 6.7 FINAL Oziel Box * [facility], [address] [facility] [address] [id number] 0 08/09 CBC w/ auto diff WBC K/uL 3.0 8.9 3.5 FINAL Oziel Tilleyot a [facility] - [place], [address] [place] [facility] [id number] 0 Phone: () - 08/09 CBC w/ auto diff HGB g/dL 11.3 15.2 11.7 FINAL Oziel Tilleyot a [facility] - [place], [address] [place] [id number] 0 Phone: () - 08/09 CBC w/ auto diff PLT K/uL 113.0 364.0 196 FINAL Oziel Tilleyot a [facility] - [place], [address] [place] [id number] 0 Phone: () - 08/09 CBC w/ auto diff Dave # (ANC) K/uL 1.6 6.6 1.9 FINAL Oziel Tilleyot a [facility] - [place], [address] [place] [id number] 0 Phone: () - 08/09 CBC w/ auto diff Dave % % 43.0 74.0 52.2 FINAL Oziel Tilleyot a [facility] - [place], [address] [place] [id number] 0 Phone: () - 08/09 CBC w/ auto diff IG % % 0.0 0.5 0.3 FINAL Oziel Tilleyot a [facility] - [place], [address] [place] [id number] 0 Phone: () - 08/09 CBC w/ auto diff IG # K/uL 0.0 0.03 0.01 FINAL Oziel Tilleyot a [facility] - [place], [address] [place] [id number] 0 Phone: () - 08/09 CBC w/ auto diff LY % % 14.0 41.0 35.0 FINAL Oziel angelo [facility] - [place], [address] [place] [id number] 0 Phone: () - 08/09 CBC w/ auto diff MO % % 6.0 15.0 9.6 FINAL Oziel Tilleyot a [facility] - [place], [address] [place] [id number] 0 Phone: () - 08/09 CBC w/ auto diff EO % % 0.0 7.0 2.3 FINAL Oziel Tilleyot a [facility] - [place], [address] [place] [id number] 0 Phone: () - 08/09 CBC w/ auto diff BA % % 0.0 2.0 0.6 FINAL Oziel Tilleyot a [facility] - [place], [address] [place] [id number] 0 Phone: () - 08/09 CBC w/ auto diff LY # K/uL 0.4 3.6 1.2 FINAL Oziel Tilleyot a [facility] - [place], [address] [place] [id number] 0 Phone: () - 08/09 CBC w/ auto diff MO # K/uL 0.2 1.3 0.3 FINAL Oziel Tilleyot a [facility] - [place], [address] [place] [id number] 0 Phone: () - 08/09 CBC w/ auto diff EO # K/uL 0.0 0.6 0.1 FINAL Oziel Tolbert a [facility] - [place], [address] [place] [id number] 0 Phone: () - 08/09 CBC w/ auto diff BA # K/uL 0.0 0.2 0.0 FINAL Oziel angelo [facility] - [place], [address] [place] [id number] 0 Phone: () - 08/09 CBC w/ auto diff NRBC % #/100W BC 0.0 0.2 0.0 FINAL Oziel angelo [facility] - [place], [address] [place] [id number] 0 Phone: () - 08/09 CBC w/ auto diff RBC M/uL 3.9 5.1 3.51 Low FINAL Oziel Tolbert a [facility] - [place], [address] [place] [id number] 0 Phone: () - 08/09 CBC w/ auto diff HCT % 35.0 48.0 35.6 FINAL Oziel Tillyeot a [facility] - [place], [address] [place] [id number] 0 Phone: () - 08/09 CBC w/ auto diff MCV fL 80.0 104.0 101.4 FINAL Oziel Tilleyot a [facility] - [place], [address] [place] [id number] 0 Phone: () - 08/09 CBC w/ auto diff MCH pg 26.0 35.0 33.3 FINAL Oziel Tilleyot a [facility] - [place], [address] [place] [id number] 0 Phone: () - 08/09 CBC w/ auto diff MCHC g/dL 30.0 35.0 32.9 FINAL Oziel Tilleyot a [facility] - [place], [address] [place] [id number] 0 Phone: () - 08/09 CBC w/ auto diff MPV fL 9.5 13.4 9.3 Low FINAL Oziel Tilleyot a [facility] - [place], [address] [place] [id number] 0 Phone: () - 08/09 CBC w/ auto diff RDW % 11.4 16.1 13.20 FINAL Oziel Tilleyot a [facility] - [place], [address] [place] [id number] 0 Phone: () - 08/09 TSH w/ refle x to free T4 TSHR- v mIU/ml 0.47 4.68 0.74 FINAL Oziel Box * [facility] [place], [address] [facility] [place] [id number] 0 02/13 CBC w/ auto diff WBC K/uL 3.0 8.9 4.7 FINAL Oziel FRE[facility]AN [facility] - [place], [address] [place] [id number] 0 02/13 CBC w/ auto diff HGB g/dL 11.3 15.2 10.4 Low FINAL Oziel FREEMAN [facility] - [place], [address] [place] [id number] 0 02/13 CBC w/ auto diff PLT K/uL 113.0 364.0 252 FINAL Oziel FREEMAN [facility] - [place], [address] [place] [id number] 0 02/13 CBC w/ auto diff Dave # (ANC) K/uL 1.6 6.6 2.4 FINAL Oziel FREEMAN [facility] - [place], [address] [place] [id number] 0 02/13 CBC w/ auto diff Dave % % 43.0 74.0 51.3 FINAL Oziel FREEMAN [facility] - [place], [address] [place] [id number] 0 02/13 CBC w/ auto diff IG % % 0.0 0.5 0.2 FINAL Oziel FREEMAN [facility] - [place], [address] [place] [id number] 0 02/13 CBC w/ auto diff IG # K/uL 0.0 0.03 0.01 FINAL Oziel FRE[facility] - [place], [address] [place] [id number] 0 02/13 CBC w/ auto diff LY % % 14.0 41.0 33.5 FINAL Oziel FREEMAN [facility] - [place], [address] [place] [id number] 0 02/13 CBC w/ auto diff MO % % 6.0 15.0 8.8 FINAL Oziel FREEMAN [facility] - [place], [address] [place] [id number] 0 02/13 CBC w/ auto diff EO % % 0.0 7.0 5.6 FINAL Oziel FRE[facility]AN [facility] - [place], [address] [place] [id number] 0 02/13 CBC w/ auto diff BA % % 0.0 2.0 0.6 FINAL Oziel F[facility]AN [facility] - [place], [address] [place] [id number] 0 02/13 CBC w/ auto diff LY # K/uL 0.4 3.6 1.6 FINAL Oziel FREEMAN [facility] - [place], [address] [place] [id number] 0 02/13 CBC w/ auto diff MO # K/uL 0.2 1.3 0.4 FINAL Oziel [facility] - [place], [address] [place] [id number] 0 02/13 CBC w/ auto diff EO # K/uL 0.0 0.6 0.3 FINAL Oziel [facility] - [place], [address] [place] [id number] 0 02/13 CBC w/ auto diff BA # K/uL 0.0 0.2 0.0 FINAL Oziel FREEMAN [facility] - [place], [address] [place] [id number] 0 02/13 CBC w/ auto diff NRBC % #/100W BC 0.0 0.2 0.0 FINAL Oziel F[facility]EMAN [facility] - [place], [address] [place] [id number] 0 02/13 CBC w/ auto diff RBC M/uL 3.9 5.1 3.24 Low FINAL Oziel FREEMAN [facility] - [place], [address] [place] [id number] 0 02/13 CBC w/ auto diff HCT % 35.0 48.0 32.3 Low FINAL Oziel F[facility]EM[facility] - [place], [address] [place] [id number] 0 02/13 CBC w/ auto diff MCV fL 80.0 104.0 99.7 FINAL Oziel F[facility]EMAN [facility] - [place], [address] [place] [id number] 0 02/13 CBC w/ auto diff MCH pg 26.0 35.0 32.1 FINAL Oziel F[facility] - [place], [address] [place] [id number] 0 02/13 CBC w/ auto diff MCHC g/dL 30.0 35.0 32.2 FINAL Oziel [facility] - [place], [address] [place] [id number] 0 02/13 CBC w/ auto diff MPV fL 9.5 13.4 9.1 Low FINAL Oziel [facility] - [place], [address] [place] [id number] 0 02/13 CBC w/ auto diff RDW % 11.4 16.1 13.70 FINAL Oziel [facility] - [place], [address] [place] [id number] 0 02/13 CMP Album in g/dL 3.5 5.0 3.5 FINAL Oziel Box * [place] [facility] [place], [address] [place] [id number] 0 02/13 CMP Alkal ine phosp hatas e U/L 36.0 125.0 75 FINAL Oziel Box * [place] [facility] [place], [address] [place] [id number] 0 02/13 CMP ALT/S GPT U/L 0.0 34.0 <4 Repeate d FINAL Oziel Box * [place] [facility] [place], [address] [facility] [id number] 0 02/13 CMP AST/S GOT U/L 14.0 36.0 17 FINAL Oziel Box * [facility] [place], [address] [facility] [id number] 0 02/13 CMP BUN mg/dL 7.0 17.0 18.0 High FINAL Oziel Box * [facility] [place], [address] [facility] [id number] 02/13 CMP Calci um mg/dL 8.4 10.2 9.2 FINAL Oziel Box * [facility] [place], [address] [facility] [id number] 02/13 CMP Chlor vipin mmol/L 96.0 107.0 109 High FINAL Oziel Card [facility] On[facility] - [place], [address] [facility] [id number] 0 02/13 CMP CO2 mmol/L 22.0 30.0 [...] hour stability window. FINAL Oziel Box * [facility] - [place], [address] [facility] [id number] 0 02/13 CMP Creat inine mg/dL 0.66 1.25 0.80 FINAL Oziel Box * [facility] - [place], [address] [facility] [id number] 0 02/13 CMP GFR estim ate ml/min /1.73m ^2 76.8 GFR is calculate d using the CKD-EPI equation. FINAL Oziel Box * [facility] - [place], [address] [facility] [id number] 0 02/13 CMP Gluco se mg/dL 74.0 100.0 84 FINAL Oziel Card [facility] - [place], [address] [facility] [id number] 02/13 CMP Potas sium mmol/L 3.5 5.1 4.4 FINAL Oziel Card [facility], [address] [facility] [id number] 0 02/13 CMP Sodiu m mmol/L 137.0 145.0 137 FINAL Oziel Card [facility] - [place], [address] [facility] [id number] 0 02/13 CMP Bilir ubin, total mg/dL 0.2 1.3 0.5 FINAL Oziel Card [place] [facility], [address] [facility] [id number] 0 02/13 CMP Total prote in g/dL 6.3 8.2 6.2 Low FINAL Oziel Box * [place] [facility], [address] [facility] [id number] 0 04/03 Misc other lab See patrol conductor d 08/14 CMP Album in g/dL 3.5 5.0 3.7 FINAL Oziel Box * [place] [facility] , [address] [facility] [id number] 0 08/14 CMP Alkal ine phosp hatas e U/L 36.0 125.0 68 FINAL Oziel Box * [place] [facility] , [address] [facility] [id number] 0 08/14 CMP ALT/S GPT U/L 0.0 34.0 10 FINAL Oziel Box * [facility] , [address] [facility] [id number] 0 08/14 CMP AST/S GOT U/L 14.0 36.0 28 FINAL Oziel Box * [facility] , [address] [facility] [id number] 0 08/14 CMP BUN mg/dL 7.0 17.0 25.0 High FINAL Oziel Box * [facility] , [facility] [address] [id number] 0 08/14 CMP Calci um mg/dL 8.4 10.2 8.7 FINAL Oziel Box * [facility] , [address] [facility] [address] [id number] 0 08/14 CMP Chlor vipin mmol/L 96.0 107.0 109 High FINAL Oziel Box * [facility] , [address] [id number] 0 08/14 CMP CO2 mmol/L 22.0 30.0 [...] hour stability window. FINAL Oziel Box * [facility] , [address] [facility] [address] [id number] 0 08/14 CMP Creat inine mg/dL 0.66 1.25 0.90 FINAL Oziel Box * [facility] , [facility] [facility] [id number] 0 08/14 CMP GFR estim ate ml/min /1.73m ^2 66.5 GFR is calculate d using the CKD-EPI equation. FINAL Oziel Box * [facility] , [address] [facility] [id number] 0 08/14 CMP Gluco se mg/dL 74.0 100.0 95 FINAL Oziel Box * [facility] , [address] [facility] [id number] 0 08/14 CMP Potas sium mmol/L 3.5 5.1 4.5 FINAL Oziel Box * [facility] , [address] [facility] [id number] 0 08/14 CMP Sodiu m mmol/L 137.0 145.0 137 FINAL Oziel Box * [facility] , [address] [facility] [id number] 0 08/14 CMP Bilir ubin, total mg/dL 0.2 1.3 0.8 FINAL Oziel Box * [facility] , [address] [facility] [id number] 0 08/14 CMP Total prote in g/dL 6.3 8.2 6.5 FINAL Oziel Box * [facility] , [address] [facility] [id number] 0 08/14 CBC w/ auto diff WBC K/uL 3.0 8.9 4.7 FINAL Oziel Box [facility] , [address] [place] [address] [facility] [address] [facility] [id number] 0 08/14 CBC w/ auto diff HGB g/dL 11.3 15.2 11.5 FINAL Oziel [place] [facility] , [address] [place] [id number] 0 08/14 CBC w/ auto diff PLT K/uL 113.0 364.0 211 FINAL Oziel Box [place] [facility] , [address] [place] [id number] 0 08/14 CBC w/ auto diff Dave # (ANC) K/uL 1.6 6.6 2.9 FINAL Oziel Box [place] [facility] , [address] [place] [id number] 0 08/14 CBC w/ auto diff Dave % % 43.0 74.0 61.3 FINAL Oziel Box [place] [facility] , [address] [place] [id number] 0 08/14 CBC w/ auto diff IG % % 0.0 0.5 0.2 FINAL Oziel Box [place] [facility] , [address] [place] [id number] 0 08/14 CBC w/ auto diff IG # K/uL 0.0 0.03 0.01 FINAL Oziel Box [place] [facility] , [address] [place] [id number] 0 08/14 CBC w/ auto diff LY % % 14.0 41.0 25.6 FINAL Oziel Box [place] [facility] , [address] [place] [id number] 0 08/14 CBC w/ auto diff MO % % 6.0 15.0 8.7 FINAL Oziel Box [place] [facility] , [address] [place] [id number] 0 08/14 CBC w/ auto diff EO % % 0.0 7.0 3.8 FINAL Oziel Box [place] [facility] , [address] [place] [id number] 0 08/14 CBC w/ auto diff BA % % 0.0 2.0 0.4 FINAL Oziel Box [place] [facility] , [address] [place] [id number] 0 08/14 CBC w/ auto diff LY # K/uL 0.4 3.6 1.2 FINAL Oziel Box [place] [facility] , [address] [place] [id number] 0 08/14 CBC w/ auto diff MO # K/uL 0.2 1.3 0.4 FINAL Oziel Box [place] [facility] , [address] [place] [id number] 0 08/14 CBC w/ auto diff EO # K/uL 0.0 0.6 0.2 FINAL Oziel Box [place] [facility] , [address] [place] [id number] 0 08/14 CBC w/ auto diff BA # K/uL 0.0 0.2 0.0 FINAL Oziel Box [place] [facility] , [address] [place] [id number] 0 08/14 CBC w/ auto diff NRBC % #/100W BC 0.0 0.2 0.0 FINAL Oziel Box [place] [facility] , [address] [place] [id number] 0 08/14 CBC w/ auto diff RBC M/uL 3.9 5.1 3.60 Low FINAL Oziel Box [place] [facility] , [address] [place] [id number] 0 08/14 CBC w/ auto diff HCT % 35.0 48.0 35.2 FINAL Ozile Box [place] [facility] , [address] [place] [id number] 0 08/14 CBC w/ auto diff MCV fL 80.0 104.0 97.8 FINAL Oziel Box [place] [facility] , [address] [place] [id number] 0 08/14 CBC w/ auto diff MCH pg 26.0 35.0 31.9 FINAL Oziel Box [place] [facility] , [address] [place] [id number] 0 08/14 CBC w/ auto diff MCHC g/dL 30.0 35.0 32.7 FINAL Oziel Box [place] [facility] , [address] [place] [id number] 0 08/14 CBC w/ auto diff MPV fL 9.5 13.4 9.0 Low FINAL Oziel Box [place] [facility] , [address] [place] [id number] 0 08/14 CBC w/ auto diff RDW % 11.4 16.1 13.60 FINAL Oziel Box [place] [facility] , [address] [place] [id number] 0 Medications Date Name Route Dose Frequency Instructions Start Date End Date Status Vitamin [id number] Acid Oral 500 mcg-400 mcg daily active [...] concentration must be 0.3-1.2 mg/mL.Administ er using [id number] ining equipment and through an in-line 0.22 [...] pain Active Vital Signs Date Type Value 12/09/2020 Body Temperature 98.40 12/09/2020 Heart Beat 65.00 12/09/2020 Respiratory Rate 16.00 12/09/2020 Oxygen Saturation 96.00 12/09/2020 BSA 1.93 12/09/2020 Pain Scale 0.00 12/09/2020 Weight 187.80 12/09/2020 Height 65.00 12/09/2020 BMI 31.25 12/09/2020 Intravascular Systolic 118 12/09/2020 Intravascular Diastolic 72 12/13/2020 Respiratory Rate 16.00 12/13/2020 Oxygen Saturation 98.00 12/13/2020 Intravascular Systolic 121 12/13/2020 Intravascular Diastolic 71 12/13/2020 Pain Scale 5.00 12/13/2020 Weight 187.00 12/13/2020 Height 65.00 12/13/2020 BMI 31.12 12/13/2020 BSA 1.92 12/13/2020 Body Temperature 96.80 12/13/2020 Heart Beat 62.00 12/18/2020 Pain Scale 0.00 12/18/2020 Height 65.00 12/24/2020 Oxygen Saturation 98.00 12/24/2020 Intravascular Systolic 123 12/24/2020 Intravascular Diastolic 76 12/24/2020 Pain Scale 0.00 12/24/2020 Weight 192.40 12/24/2020 Height 65.00 12/24/2020 BMI 32.02 12/24/2020 BSA 1.95 12/24/2020 Respiratory Rate 18.00 12/24/2020 Body Temperature 98.00 12/24/2020 Heart Beat 71.00 01/02/2021 Weight 195.00 01/02/2021 Pain Scale 3.00 01/02/2021 BMI 32.45 01/02/2021 BSA 1.96 01/02/2021 Body Temperature 96.80 01/02/2021 Heart Beat 63.00 01/02/2021 Oxygen Saturation 99.00 01/02/2021 Intravascular Systolic 118 01/02/2021 Intravascular Diastolic 63 01/02/2021 Height 65.00 01/02/2021 Respiratory Rate 16.00 01/09/2021 Respiratory Rate 16.00 01/09/2021 Oxygen Saturation 97.00 01/09/2021 Intravascular Systolic 121 01/09/2021 Intravascular Diastolic 65 01/09/2021 Pain Scale 2.00 01/09/2021 Body Temperature 97.60 01/09/2021 Height 65.00 01/09/2021 BMI 32.28 01/09/2021 BSA 1.95 01/09/2021 Heart Beat 69.00 01/09/2021 Weight 194.00 01/16/2021 Intravascular Systolic 135 01/16/2021 Intravascular Diastolic 65 01/16/2021 Oxygen Saturation 97.00 01/16/2021 Heart Beat 56.00 01/16/2021 Body Temperature 97.20 01/16/2021 BSA 1.98 01/16/2021 Pain Scale 0.00 01/16/2021 Weight 200.00 01/16/2021 Height 65.00 01/16/2021 BMI 33.28 01/16/2021 Respiratory Rate 16.00 01/23/2021 Oxygen Saturation 98.00 01/23/2021 Respiratory Rate 12.00 01/23/2021 Heart Beat 65.00 01/23/2021 Body Temperature 97.90 01/23/2021 Intravascular Systolic 128 01/23/2021 Intravascular Diastolic 81 01/23/2021 BSA 2.00 01/23/2021 BMI 34.15 01/23/2021 Height 65.00 01/23/2021 Weight 205.20 01/23/2021 Pain Scale 0.00 01/30/2021 Body Temperature 96.50 01/30/2021 Heart Beat 76.00 01/30/2021 Respiratory Rate 16.00 01/30/2021 Oxygen Saturation 98.00 01/30/2021 BSA 1.99 01/30/2021 Height 65.00 01/30/2021 Weight 203.00 01/30/2021 Pain Scale 0.00 01/30/2021 Intravascular Systolic 147 01/30/2021 Intravascular Diastolic 69 01/30/2021 BMI 33.78 02/17/2021 Body Temperature 96.90 02/17/2021 Heart Beat 70.00 02/17/2021 Respiratory Rate 16.00 02/17/2021 Oxygen Saturation 98.00 02/17/2021 Intravascular Systolic 145 02/17/2021 Intravascular Diastolic 71 02/17/2021 Weight 211.00 02/17/2021 Height 65.00 02/17/2021 BMI 35.11 02/17/2021 BSA 2.02 02/17/2021 Pain Scale 0.00 03/17/2021 BSA 2.04 03/17/2021 BMI 35.81 03/17/2021 Height 65.00 03/17/2021 Weight 215.20 03/17/2021 Body Temperature 97.40 03/17/2021 Intravascular Systolic 139 03/17/2021 Intravascular Diastolic 71 03/17/2021 Oxygen Saturation 94.00 03/17/2021 Respiratory Rate 16.00 03/17/2021 Heart Beat 62.00 03/17/2021 Pain Scale 4.00 04/14/2021 BMI 34.61 04/14/2021 BSA 2.01 04/14/2021 Height 65.00 04/14/2021 Weight 208.00 04/14/2021 Pain Scale 5.00 04/14/2021 Intravascular Systolic 138 04/14/2021 Intravascular Diastolic 80 04/14/2021 Oxygen Saturation 98.00 04/14/2021 Respiratory Rate 16.00 04/14/2021 Heart Beat 70.00 04/14/2021 Body Temperature 97.70 04/23/2021 Body Temperature 96.80 04/23/2021 Heart Beat 68.00 04/23/2021 Respiratory Rate 16.00 04/23/2021 Oxygen Saturation 98.00 04/23/2021 BSA 1.98 04/23/2021 Pain Scale 5.00 04/23/2021 Weight 201.00 04/23/2021 Height 65.00 04/23/2021 BMI 33.45 04/23/2021 Intravascular Systolic 112 04/23/2021 Intravascular Diastolic 70 04/30/2021 Body Temperature 97.90 04/30/2021 Heart Beat 61.00 04/30/2021 Respiratory Rate 18.00 04/30/2021 Oxygen Saturation 98.00 04/30/2021 Intravascular Systolic 107 04/30/2021 Intravascular Diastolic 70 04/30/2021 Weight 198.20 04/30/2021 Height 65.00 04/30/2021 BMI 32.98 04/30/2021 BSA 1.97 05/28/2021 BMI 32.88 05/28/2021 Height 65.00 05/28/2021 Weight 197.60 05/28/2021 Pain Scale 0.00 05/28/2021 Body Temperature 98.30 05/28/2021 Intravascular Systolic 128 05/28/2021 Intravascular Diastolic 84 05/28/2021 Oxygen Saturation 98.00 05/28/2021 Respiratory Rate 16.00 05/28/2021 Heart Beat 66.00 05/28/2021 BSA 1.97 07/02/2021 Body Temperature 97.40 07/02/2021 Heart Beat 62.00 07/02/2021 Respiratory Rate 16.00 07/02/2021 Oxygen Saturation 97.00 07/02/2021 Pain Scale 0.00 07/02/2021 Weight 193.00 07/02/2021 Height 65.00 07/02/2021 BMI 32.12 07/02/2021 BSA 1.95 07/02/2021 Intravascular Systolic 116 07/02/2021 Intravascular Diastolic 72 07/30/2021 Body Temperature 98.10 07/30/2021 Heart Beat 63.00 07/30/2021 Respiratory Rate 18.00 07/30/2021 Oxygen Saturation 97.00 07/30/2021 BSA 1.96 07/30/2021 Pain Scale 0.00 07/30/2021 Weight 195.00 07/30/2021 Height 65.00 07/30/2021 BMI 32.45 07/30/2021 Intravascular Systolic 153 07/30/2021 Intravascular Diastolic 70 08/27/2021 BMI 33.38 08/27/2021 Height 65.00 08/27/2021 Weight 200.60 08/27/2021 Pain Scale 5.00 08/27/2021 Intravascular Systolic 110 08/27/2021 Intravascular Diastolic 80 08/27/2021 Oxygen Saturation 99.00 08/27/2021 Respiratory Rate 16.00 08/27/2021 Heart Beat 66.00 08/27/2021 Body Temperature 97.20 08/27/2021 BSA 1.98 09/08/2021 BSA 1.98 09/08/2021 Body Temperature 98.50 09/08/2021 Heart Beat 67.00 09/08/2021 Respiratory Rate 16.00 09/08/2021 Oxygen Saturation 98.00 09/08/2021 Intravascular Systolic 125 09/08/2021 Intravascular Diastolic 82 09/08/2021 Pain Scale 2.00 09/08/2021 Weight 200.60 09/08/2021 Height 65.00 09/08/2021 BMI 33.38 09/26/2021 BSA 1.98 09/26/2021 Body Temperature 96.70 09/26/2021 Heart Beat 62.00 09/26/2021 Respiratory Rate 16.00 09/26/2021 BMI 33.28 09/26/2021 Intravascular Systolic 114 09/26/2021 Intravascular Diastolic 78 09/26/2021 Pain Scale 0.00 09/26/2021 Weight 200.00 09/26/2021 Height 65.00 09/26/2021 Oxygen Saturation 98.00 10/24/2021 Intravascular Systolic 138 10/24/2021 Intravascular Diastolic 84 10/24/2021 Pain Scale 0.00 10/24/2021 Weight 200.00 10/24/2021 Height 65.00 10/24/2021 BMI 33.28 10/24/2021 BSA 1.98 10/24/2021 Body Temperature 96.90 10/24/2021 Heart Beat 65.00 10/24/2021 Respiratory Rate 20.00 10/24/2021 Oxygen Saturation 97.00 11/21/2021 Pain Scale 0.00 11/21/2021 Weight 206.00 11/21/2021 Height 65.00 11/21/2021 BMI 34.28 11/21/2021 BSA 2.00 11/21/2021 Oxygen Saturation 98.00 11/21/2021 Respiratory Rate 16.00 11/21/2021 Heart Beat 68.00 11/21/2021 Body Temperature 97.30 11/21/2021 Intravascular Systolic 158 11/21/2021 Intravascular Diastolic 88 12/19/2021 Oxygen Saturation 97.00 12/19/2021 Respiratory Rate 16.00 12/19/2021 Heart Beat 64.00 12/19/2021 Body Temperature 96.70 12/19/2021 Intravascular Systolic 118 12/19/2021 Intravascular Diastolic 82 12/19/2021 BSA 2.02 12/19/2021 BMI 34.88 12/19/2021 Height 65.00 12/19/2021 Weight 209.60 12/19/2021 Pain Scale 0.00 01/16/2022 BMI 35.25 01/16/2022 Height 65.00 01/16/2022 Weight 211.80 01/16/2022 Pain Scale 0.00 01/16/2022 BSA 2.03 01/16/2022 Heart Beat 63.00 01/16/2022 Respiratory Rate 16.00 01/16/2022 Oxygen Saturation 95.00 01/16/2022 Intravascular Systolic 118 01/16/2022 Intravascular Diastolic 82 01/16/2022 Body Temperature 97.70 05/08/2022 Heart Beat 68.00 05/08/2022 Respiratory Rate 16.00 05/08/2022 Oxygen Saturation 98.00 05/08/2022 Intravascular Systolic 138 05/08/2022 Intravascular Diastolic 86 05/08/2022 Body Temperature 100.20 05/08/2022 Weight 213.80 05/08/2022 Height 65.00 05/08/2022 BMI 35.58 05/08/2022 BSA 2.03 05/08/2022 Pain Scale 5.00 08/13/2022 BSA 2.03 08/13/2022 BMI 35.51 08/13/2022 Height 65.00 08/13/2022 Weight 213.40 08/13/2022 Pain Scale 0.00 08/13/2022 Intravascular Systolic 118 08/13/2022 Intravascular Diastolic 76 08/13/2022 Oxygen Saturation 98.00 08/13/2022 Respiratory Rate 16.00 08/13/2022 Body Temperature 96.80 08/13/2022 Heart Beat 67.00 11/13/2022 BMI 36.74 11/13/2022 BSA 2.06 11/13/2022 Height 65.00 11/13/2022 Weight 220.80 11/13/2022 Pain Scale 0.00 11/13/2022 Intravascular Systolic 126 11/13/2022 Intravascular Diastolic 72 11/13/2022 Oxygen Saturation 98.00 11/13/2022 Respiratory Rate 16.00 11/13/2022 Heart Beat 77.00 11/13/2022 Body Temperature 96.90 02/12/2023 Body Temperature 96.40 02/12/2023 Heart Beat 70.00 02/12/2023 Respiratory Rate 16.00 02/12/2023 Oxygen Saturation 99.00 02/12/2023 BSA 2.09 02/12/2023 Pain Scale 0.00 02/12/2023 Weight 227.20 02/12/2023 Height 65.00 02/12/2023 BMI 37.81 02/12/2023 Intravascular Systolic 158 02/12/2023 Intravascular Diastolic 68 08/16/2023 BMI 33.28 08/16/2023 Height 65.00 08/16/2023 Weight 200.00 08/16/2023 Pain Scale 5.00 08/16/2023 BSA 1.98 08/16/2023 Oxygen Saturation 99.00 08/16/2023 Respiratory Rate 16.00 08/16/2023 Heart Beat 82.00 08/16/2023 Body Temperature 98.00 08/16/2023 Intravascular Systolic 110 08/16/2023 Intravascular Diastolic 70 02/18/2024 BSA 1.95 02/18/2024 BMI 32.28 02/18/2024 Height 65.00 02/18/2024 Weight 194.00 02/18/2024 Pain Scale 0.00 02/18/2024 Intravascular Systolic 134 02/18/2024 Intravascular Diastolic 82 02/18/2024 Oxygen Saturation 98.00 02/18/2024 Respiratory Rate 16.00 02/18/2024 Body Temperature 96.60 02/18/2024 Heart Beat 81.00
[2024-08-27 13:46] VITALS: BP 146/82; PULSE 55; RESP 16; TEMP 36.4; O2SAT 95; BMI 33.3
[2024-08-27 13:58] LABS: Appearance Urine Clear (Clear); Bilirubin Urine Negative (Negative); Blood Urine 1+ (Negative); Color Urine Yellow (Yellow); Glucose Urine Negative (Negative); Ketones Urine Negative (Negative); Leukocyte Esterase Urine 1+ (Negative); Nitrite Urine Negative (Negative); Protein Urine Negative (Negative); Urobilinogen Urine 0.2 (0.2-1.0)
--- NOTE | 2024-08-27 14:01 | ED_ITS ---
HPI - General Adult General Chief complaint: Urogenital Problems, Female Stated complaint: UTI Time Seen by Provider: 08/27/24 13:43 History of Present Illness HPI narrative: This 74-year-old female comes in reporting dysuria symptoms starting about 3 or 4 days ago and worsening recently. She reports increased frequency and pain especially at the end of voiding urine. She does not report any fevers. Related Data Home Medications ?Medication ?Instructions ?Recorded ?Confirmed carbidopa 25 mg-levodopa 100 mg tab PO 06/07/23 tablet carbidopa ER 50 mg-levodopa 200 mg 1 tab PO QPM 04/27/24 tablet,extended release calcium gluconate 60 mg calcium 60 mg PO QDAY 04/27/24 04/27/24 (650 mg) tablet gabapentin 300 mg capsule 300 mg PO QDAY 04/27/2404/15 magnesium 1 tab PO DAILY 04/27/2404/15 mecobalamin (vitamin B12) 1 tab PO DAILY 04/27/2404/15 Previous Rx's ?Medication ?Instructions ?Recorded levothyroxine 75 mcg tablet 75 mcg PO DAILY #90 tabs 0 06/06/24 Allergies Allergy/AdvReac Type Severity Reaction Status Date / Time amoxicillin Allergy Severe Hives Verified 04/27/24 13:58 ciprofloxacin Allergy Mild Hives Verified 04/27/24 13:58 nitrofurantoin Allergy Mild Hives Verified 04/27/24 13:58 penicillin V Allergy Mild Unknown Verified 04/27/24 13:58 Review of Systems Status of ROS: Reports: 10 or more systems reviewed and unremarkable except as noted in History and below Narrative: Constitutional: No fevers, no weight gain or loss. Eyes: No discharge. No vision changes. HENT: No congestion, no sore throat, no ear pain. Cardiovascular: No chest pain, no palpitations. Respiratory: No shortness of breath, no wheezes, no cough. Gastrointestinal: No abdominal pain, no vomiting, no diarrhea. Genitourinary: No hematuria. Dysuria symptoms as described above. Musculoskeletal: Normal range of motion. Skin: No rashes, no pruritis. Neurological: No dizziness, weakness, sensory change, speech change. Endo/Heme/Allergies: No bruising or bleeding. No polydipsia. Pysch: no suicidality, no anxiety, no insomnia. All other systems reviewed and are negative. 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) ?Z96.651 - Presence of right artificial knee joint (ICD-10) History of phacoemulsification of cataract of both eyes with intraocular lens implantation ?Z98.41 - Cataract extraction status, right eye (ICD-10) ?Z98.42 - Cataract extraction status, left eye (ICD-10) ?Z96.1 - Presence of intraocular lens (ICD-10) History of YAG laser capsulotomy of lens of right eye ?Z98.41 - Cataract extraction status, right eye (ICD-10) History of tonsillectomy (1960) ?Z90.89 - Acquired absence of other organs (ICD-10) History of bilateral cataract extraction (2008) ?Z98.41 - Cataract extraction status, right eye (ICD-10) ?Z98.42 - Cataract extraction status, left eye (ICD-10) History of cholecystectomy ?Z90.49 - Acquired absence of other specified parts of digestive tract (ICD- 10) H/O right breast biopsy ?Z98.890 - Other specified postprocedural states (ICD-10) History of appendectomy ?Z90.49 - Acquired absence of other specified parts of digestive tract (ICD- 10) Social History (Updated 04/27/24 @ 15:49 by Annie Guillen ~ [facility]) What is your current living situation?: I presently have a place to live Problems where you live: no known problems In the past 12 months, utilities in danger of being shut off: no In past 12 months, lack of transportation kept you from medical appts, meetings, work, or getting things needed for daily living: no In the past 12 mos, have been you worried that your food would run out before you had money to buy more?: never true In the past 12 mos, the food you bought just didn't last and you didn't have money to buy more?: never true Smoking Status: Current some day smoker Do you use any of these nicotine containing products: Vaping Products Second hand tobacco smoke exposure: No How often do you have a drink containing alcohol: never How often do you have six or more drinks on one occasion: Never AUDIT-C Alcohol total score: 0 Non-prescribed substance use: denies use How often does anyone, including family, friends and others, physically hurt you : never How often does anyone, including family, friends and others, insult or talk down to you: never How often does anyone, including family, friends and others, threaten you with harm: never How often does anyone, including family, friends and others, scream or curse at you: never service: No Exam Narrative: Exam Narrative: Constitutional: Well-developed, well-nourished, no acute distress. HEENT: Normocephalic, atraumatic. Neck: Normal range of motion. Nontender. Supple. Heart: Intact distal pulses. Lungs: No chest discomfort. No wheezes, rhonchi, or rales. Abdomen: Nontender. Back: Normal range of motion. Extremities: Normal range of motion. No injury. Skin: Intact. No rash. Warm. No erythema or pallor. Neurologic: No altered sensation. No weakness. Alert and oriented. Psychiatric: No suicidality. No anxiety or depression. No insomnia. Nursing notes and vitals signs are reviewed. Const: Vital Signs, click to edit/add: Vital Signs - 24 hr 08/27/24 13:46 Temperature 97.5 F L Pulse Rate [Pulse Oximeter] 55 L Respiratory Rate 16 Blood Pressure [Ri ght Upper Arm] 146/82 H Pulse Oximetry 95 Oxygen Delivery Me thod Room Air Course Vital Signs Vital signs: Initial Vital Signs Temperature 97.5 F L 08/27/24 13:46 Temperature Source Temporal Artery Scan 08/27/24 13:46 Pulse Rate 55 L 08/27/24 13:46 Pulse Rhythm Regular 08/27/24 13:46 Respiratory Rate 16 08/27/24 13:46 Blood Pressure 146/82 H 08/27/24 13:46 Blood Pressure Mean 103 08/27/24 13:46 Blood Pressure Position Supine 08/27/24 13:46 Pulse Oximetry 95 08/27/24 13:46 Oxygen Delivery Method Room Air 08/27/24 13:46 Vital Signs Temperature 97.5 F L 08/27/24 13:46 Pulse Rate 55 L 08/27/24 13:46 Respiratory Rate 16 08/27/24 13:46 Blood Pressure 146/82 H 08/27/24 13:46 Pulse Oximetry 95 08/27/24 13:46 Oxygen Delivery Method Room Air 08/27/24 13:46 Temperature 97.5 F L 08/27/24 13:46 Pulse Rate 55 L 08/27/24 13:46 Respiratory Rate 16 08/27/24 13:46 Blood Pressure 146/82 H 08/27/24 13:46 Pulse Oximetry 95 08/27/24 13:46 Oxygen Delivery Method Room Air 08/27/24 13:46 Medical Decision Making [facility] Narrative Medical decision making narrative: This patient has obvious signs of dysuria symptoms with increased frequency and pain when voiding urine. Urinalysis is obtained and shows hematuria and some leukocyte esterase but her white cell count is in normal range and there are no nitrates. The patient's symptoms are strongly suggesting infection that I suspect will show up on the urine culture in the future. The patient did receive [employer] prescription for Keflex. Lab Data Labs: Lab Results 08/27/24 Range/Units 13:54 Urine Color Yellow (Yellow) Urine Appearance Clear (Clear) Urine pH 7.0 (5.0-8.5) Ur Specific [place] 1.020 (1.000-1.030) Urine Protein Negative (Negative) Urine Glucose (UA) Negative (Negative) Urine Ketones Negative (Negative) Urine Blood 1+ A (Negative) Urine Nitrite Negative (Negative) Urine Bilirubin Negative (Negative) Urine Urobilinogen 0.2 (0.2-1.0) Ur Leukocyte Esterase 1+ A (Negative) Urine RBC 10-25 A (0-2) Urine WBC 2-5 (0-5) Ur Squamous Epith Cells None (None-Few) Urine Bacteria Few A (None) Discharge Plan Discharge Clinical Impression: Urinary tract infection Patient Disposition: Home, Self-Care Condition: Stable Additional Instructions: Take medication as prescribed. Drink plenty of fluids. Follow up with MD return persistent or worsening symptoms. Prescriptions: No Action calcium gluconate 60 mg calcium (650 mg) tablet 60 mg PO QDAY mecobalamin (vitamin B12) 1 tab PO DAILY gabapentin 300 mg capsule 300 mg PO QDAY magnesium 1 tab PO DAILY carbidopa-levodopa 50-200 mg tablet extended release 1 tab PO QPM carbidopa-levodopa 25-100 mg tablet PO levothyroxine 75 mcg tablet 75 mcg PO DAILY Qty: 90 3RF Follow Up/Referrals: Annie Worthington MD [Primary Care Provider, Internal Medicine] Stand Alone Forms: [facility] Info Instructions
[2024-08-27 14:10] LABS: Bacteria Urine Few
--- OUTSIDE RECORDS SUMMARY | 2024-08-27 14:31 | XMS_ITS ---
Author Name Interface, S3Wngdcul lity Address [address] [address] [facility] Address [address] [address] Care Team Providers Care Storm Sash Maker Name Role Phone Diane Ramon Unavailable Allergies [...] 20 MIN 05/13/2022 APPOINTMENT CHART CHECK 5 PA N 05/08/2022 APPOINTMENT OV 20 MIN 05/08/2022 [...] 15 MIN 02/20/2022 APPOINTMENT CHART CHECK 5 PA N 01/16/2022 APPOINTMENT PORT DRAW 15 MIN [...] [facility] [place], [address] [facility] [address] [facility] [id number] Phone: () - 10/24 CBC w/ auto diff HGB g/dL 11.3 15.2 12.0 FINAL Lia [facility] [place], [address] [place] [address] d [address] [facility] [id number] 0 Phone: () - 10/24 CBC w/ auto diff PLT K/uL 113.0 364.0 211 FINAL Lia [facility] [place], [address] [facility] [address] [facility] [id number] 0 Phone: () - 10/24 CBC w/ auto diff Dave # (ANC) K/uL 1.6 6.6 3.4 FINAL Lia [facility] [place], [address] [facility] [address] [facility] [id number] 0 Phone: () - 10/24 CBC w/ auto diff Dave % % 43.0 74.0 62.4 FINAL Lia [facility] [place], [address] [place] [id number] 0 Phone: () - 10/24 CBC w/ auto diff IG % % 0.0 0.5 1.1 High FINAL Lia [facility] [place], [address] [facility] [address] [place] [id number] 0 Phone: () - 10/24 CBC w/ auto diff IG # K/uL 0.0 0.03 0.06 High FINAL Lia [facility] [place], [address] [facility] [address] [place] [id number] 0 Phone: () - 10/24 CBC w/ auto diff LY % % 14.0 41.0 22.2 FINAL Lia [facility] [place], [address] [facility] [address] [place] [id number] 0 Phone: () - 10/24 CBC w/ auto diff MO % % 6.0 15.0 10.1 FINAL Lia [facility] [place], [address] [facility] [address] [place] [id number] 0 Phone: () - 10/24 CBC w/ auto diff EO % % 0.0 7.0 3.8 FINAL [facility]ia [facility] [place], [address] [facility] [address] [place] [id number] 0 Phone: () - 10/24 CBC w/ auto diff BA % % 0.0 2.0 0.4 FINAL [facility]ia [facility] [place], [address] [facility] [address] [place] [id number] 0 Phone: () - 10/24 CBC w/ auto diff LY # K/uL 0.4 3.6 1.2 FINAL Lia [facility] - [place], [address] [facility] [address] [place] [id number] 0 Phone: () - 10/24 CBC w/ auto diff MO # K/uL 0.2 1.3 0.6 FINAL Lia [facility] [place], [address] [place] [id number] 0 Phone: () - 10/24 CBC w/ auto diff EO # K/uL 0.0 0.6 0.2 FINAL [facility]ia [facility] [place], [address] [place] [id number] 0 Phone: () - 10/24 CBC w/ auto diff BA # K/uL 0.0 0.2 0.0 FINAL [facility]ia [facility] [place], [address] [place] [id number] 0 Phone: () - 10/24 CBC w/ auto diff NRBC % #/100W BC 0.0 0.2 0.0 FINAL Lia [facility] [place], [address] [place] [id number] 0 Phone: () - 10/24 CBC w/ auto diff RBC M/uL 3.9 5.1 3.62 Low FINAL Lia [facility] - [place], [address] [place] [id number] 0 Phone: () - 10/24 CBC w/ auto diff HCT % 35.0 48.0 35.7 FINAL Lia [facility] [place], [address] [place] [id number] 0 Phone: () - 10/24 CBC w/ auto diff MCV fL 80.0 104.0 98.6 FINAL Lia [facility] [place], [address] [place] [id number] 0 Phone: () - 10/24 CBC w/ auto diff MCH pg 26.0 35.0 33.1 FINAL Lia [facility] [place], [address] [place] [id number] 0 Phone: () - 10/24 CBC w/ auto diff MCHC g/dL 30.0 35.0 33.6 FINAL Lia angelo [facility] - [place], [address] [place] [id number] 0 Phone: () - 10/24 CBC w/ auto diff MPV fL 9.5 13.4 9.1 Low FINAL Lia angelo [facility] - [place], [address] [place] [id number] 0 Phone: () - 10/24 CBC w/ auto diff RDW % 11.4 16.1 12.20 FINAL Lia angelo [facility] - [place], [address] [place] [id number] 0 Phone: () - 10/24 TSH w/ refle x to free T4 TSH uIU/ml 0.32 5.0 0.05 Low Test performed at [facility] on a Cargomatic Immunoass ay Analyzer that uses an immunoenz ymometric sandwich assay for analysis. Patient testing should not be performed using multiple methodolo ginaun due to analytica l variation seen between test methodharley amador. FINAL Lia Delgado [facility], [address] [place] [address] [id number] 0 Phone: () - 10/24 CMP Album in g/dL 3.2 5.2 4.3 FINAL Lia [facility] [address] [facility] [id number] 0 Phone: () - 10/24 CMP Alkal ine phosp hatas e U/L 46.0 116.0 59 FINAL [facility], [address] [place] [id number] 0 Phone: () - 10/24 CMP ALT/S GPT U/L 7.0 40.0 12 FINAL [facility] [address] [facility] [id number] 0 Phone: () - 10/24 CMP AST/S GOT U/L 13.0 40.0 22 FINAL [facility], [address] [place] [id number] 0 Phone: () - 10/24 CMP BUN mg/dL 9.0 23.0 16 FINAL [place] [address] [address] [facility] 100 [facility] [id number] 0 Phone: () - 10/24 CMP Calci um mg/dL 8.7 10.4 9.7 FINAL [place] [address] [address] [facility] 100 [facility] [id number] 0 Phone: () - 10/24 CMP Chlor vipin mmol/L 96.0 114.0 110 FINAL [place] [address] [address] [facility] 100 [facility] [id number] 0 Phone: () - 10/24 CMP CO2 [...] of the 96 hour stability window. FINAL [place] [address] [id number] 0 Phone: () - 10/24 CMP Creat inine mg/dL 0.5 1.2 0.83 FINAL [place] [address] [facility] 100 [facility] [id number] 0 Phone: () - 10/24 CMP GFR estim ate ml/min /1.73m ^2 74.5 GFR is calculate d using the CKD-EPI equation. FINAL [place] [address] [facility] [address] [facility] [id number] 0 Phone: () - 10/24 CMP Gluco se mg/dL 73.0 126.0 87 [facility] [address] [facility] 100 [facility] [id number] 0 Phone: () - 10/24 CMP Potas sium mmol/L 3.5 5.1 4.4 [place] [address] [facility] [address] [facility] [id number] 0 Phone: () - 10/24 CMP Sodiu m mmol/L 136.0 145.0 145 FINAL Lia [facility], [address] [facility] 100 [facility] [id number] 0 Phone: () - 10/24 CMP Bilir ubin, total mg/dL 0.3 1.2 0.4 FINAL [facility] [address] [facility] [address] [facility] [id number] 0 Phone: () - 10/24 CMP Total prote in g/dL 5.7 8.2 6.4 FINAL [place] [address] [address] [facility] 100 [facility] [id number] 0 Phone: () - 10/24 T4, free panel T4, free ng/dL 0.7 1.8 1.62 Test performed at [facility] on a IActionable 2000 Immunoass ay Analyzer that uses an immunoenz ymometric sandwich assay for analysis. Patient testing should not be performed using multiple methodolo gies due to analytica l variation seen between test methodolo gies. FINAL [facility] [address] [facility] [address] [facility] [id number] 0 Phone: () - 11/21 TSH w/ refle x to free T4 TSH uIU/ml 0.32 5.0 0.16 Low Test performed at [facility] on a IActionable 2000 Immunoass ay Analyzer that uses an immunoenz ymometric sandwich assay for analysis. Patient testing should not be performed using multiple methodolo gies due to analytica l variation seen between test methodolo gies. FINAL [facility], [address] [facility] [address] [facility] [id number] 0 Phone: () - 11/21 CBC w/ auto diff WBC K/uL 3.0 8.9 4.1 [facility], [address] [facility] [id number] 0 Phone: () - 11/21 CBC w/ auto diff HGB g/dL 11.3 15.2 11.8 FINAL Lia [facility] [place], [address] [place] [id number] 0 Phone: () - 11/21 CBC w/ auto diff PLT K/uL 113.0 364.0 223 FINAL Lia [facility] [place], [address] [place] [id number] 0 Phone: () - 11/21 CBC w/ auto diff Dave # (ANC) K/uL 1.6 6.6 2.3 FINAL Lia [facility] [place], [address] [place] [id number] 0 Phone: () - 11/21 CBC w/ auto diff Dave % % 43.0 74.0 56.3 FINAL Lia [facility] [place], [address] [place] [id number] 0 Phone: () - 11/21 CBC w/ auto diff IG % % 0.0 0.5 0.2 FINAL [facility] [place], [address] [place] [id number] 0 Phone: () - 11/21 CBC w/ auto diff IG # K/uL 0.0 0.03 0.01 FINAL L[facility] [place], [address] [place] [id number] 0 Phone: () - 11/21 CBC w/ auto diff LY % % 14.0 41.0 29.0 FINAL Lia [facility] [place], [address] [place] [id number] 0 Phone: () - 11/21 CBC w/ auto diff MO % % 6.0 15.0 10.4 FINAL [facility] [place], [address] [place] [id number] 0 Phone: () - 09/09 /2022 CBC w/ auto diff EO % % 0.0 7.0 3.9 FINAL [facility] [place], [address] [place] [id number] 0 Phone: () - 11/21 CBC w/ auto diff BA % % 0.0 2.0 0.2 FINAL Lia [facility] [place], [address] [place] [id number] 0 Phone: () - 11/21 CBC w/ auto diff LY # K/uL 0.4 3.6 1.2 FINAL Lia [facility] [place], [address] [place] [id number] 0 Phone: () - 11/21 CBC w/ auto diff MO # K/uL 0.2 1.3 0.4 FINAL Lia [facility] [place], [address] [place] [id number] 0 Phone: () - 11/21 CBC w/ auto diff EO # K/uL 0.0 0.6 0.2 FINAL Lia [facility] [place], [address] [place] [id number] 0 Phone: () - 11/21 CBC w/ auto diff BA # K/uL 0.0 0.2 0.0 FINAL Lia [facility] [place], [address] [place] [id number] 0 Phone: () - 11/21 CBC w/ auto diff NRBC % #/100W BC 0.0 0.2 0.0 FINAL Lia [facility] [place], [address] [place] [id number] 0 Phone: () - 11/21 CBC w/ auto diff RBC M/uL 3.9 5.1 3.69 Low FINAL Lia [facility] [place], [address] [place] [id number] 0 Phone: () - 11/21 CBC w/ auto diff HCT % 35.0 48.0 35.6 FINAL Lia angelo [facility] - [place], [address] [facility] [address] [place] [id number] 0 Phone: () - 11/21 CBC w/ auto diff MCV fL 80.0 104.0 96.5 FINAL Lia angelo [facility] - [place], [address] [facility] [address] [place] [id number] 0 Phone: () - 11/21 CBC w/ auto diff MCH pg 26.0 35.0 32.0 FINAL Lia angelo [facility] - [place], [address] [place] [address] [address] [place] [id number] 0 Phone: () - 11/21 CBC w/ auto diff MCHC g/dL 30.0 35.0 33.1 FINAL Lia angelo [facility] - [place], [address] [facility] [address] [facility] [place] [id number] 0 Phone: () - 11/21 CBC w/ auto diff MPV fL 9.5 13.4 9.0 Low FINAL Lia angelo [facility] - [place], [address] [facility] [address] [facility] [place] [id number] 0 Phone: () - 11/21 CBC w/ auto diff RDW % 11.4 16.1 12.40 FINAL Lia angelo [facility] - [place], [address] [facility] [address] [facility] [place] [id number] 0 Phone: () - 11/21 CMP Album in g/dL 3.2 5.2 4.1 FINAL Lia Tilley gi On[facility], [address] [facility] [address] [place] [address] [place] [id number] 0 Phone: () - 11/21 CMP Alkal ine phosp hatas e U/L 46.0 116.0 52 [facility], [address] [place] [address] [place] [id number] 0 Phone: () - 11/21 CMP ALT/S GPT U/L 7.0 40.0 17 FINAL [place] [address] [id number] 0 Phone: () - 11/21 CMP AST/S GOT U/L 13.0 40.0 24 FINAL [facility] [address] [facility] [address] [id number] 0 Phone: () - 11/21 CMP BUN mg/dL 9.0 23.0 14 FINAL [place] [address] [facility] 100 [facility] [id number] 0 Phone: () - 11/21 CMP Calci um mg/dL 8.7 10.4 9.3 [place] [address] [address] [facility] [address] [id number] 0 Phone: () - 11/21 CMP Chlor vipin mmol/L 96.0 114.0 111 FINAL [place] [address] [address] [facility] [address] [id number] 0 Phone: () - 11/21 CMP CO2 [...] of the 96 hour stability window. FINAL [facility], [facility] [address] [facility] [address] [id number] 0 Phone: () - 11/21 CMP Creat inine mg/dL 0.5 1.2 0.79 FINAL [place] [address] [address] [facility] [address] [id number] 0 Phone: () - 11/21 CMP GFR estim ate ml/min /1.73m ^2 79.1 GFR is calculate d using the CKD-EPI equation. [place] [address] [address] [facility] [address] [id number] 0 Phone: () - 11/21 CMP Gluco se mg/dL 73.0 126.0 86 FINAL [facility], [address] [facility] 100 [facility] [id number] 0 Phone: () - 11/21 CMP Potas sium mmol/L 3.5 5.1 4.5 FINAL [facility] [address] [facility] 100 [facility] [id number] 0 Phone: () - 11/21 CMP Sodiu m mmol/L 136.0 145.0 144 FINAL [place] [address] [address] [facility] 100 [facility] [id number] 0 Phone: () - 11/21 CMP Bilir ubin, total mg/dL 0.3 1.2 0.3 FINAL [place] [address] [id number] 0 Phone: () - 11/21 CMP Total prote in g/dL 5.7 8.2 6.2 FINAL [place] [address] [id number] 0 Phone: () - 11/21 T4, free panel T4, free ng/dL 0.7 1.8 1.13 Test performed at [facility] on a IActionable 2000 Immunoass ay Analyzer that uses an immunoenz ymometric sandwich assay for analysis. Patient testing should not be performed using multiple methodharley amador due to analytica l variation seen between test kathi amador. FINAL [facility], [facility] [address] [facility] [address] [place] [address] [id number] 0 Phone: () - 12/19 CBC w/ auto diff WBC K/uL 3.0 8.9 4.9 FINAL Oziel Box [facility], [address] [facility] [id number] 0 Phone: () - 12/19 CBC w/ auto diff HGB g/dL 11.3 15.2 11.8 FINAL Oziel Box [facility] - [place], [address] [place] [id number] 0 Phone: () - 12/19 CBC w/ auto diff PLT K/uL 113.0 364.0 218 FINAL Oziel Tolbert [facility] - [place], [address] [place] [id number] 0 Phone: () - 12/19 CBC w/ auto diff Dave # (ANC) K/uL 1.6 6.6 2.7 FINAL Oziel [facility] - [place], [address] [place] [id number] 0 Phone: () - 12/19 CBC w/ auto diff Dave % % 43.0 74.0 55.3 FINAL Oziel [facility] - [place], [address] [place] [id number] 0 Phone: () - 12/19 CBC w/ auto diff IG % % 0.0 0.5 0.2 FINAL Oziel Tolbert [facility] - [place], [address] [place] [id number] 0 Phone: () - 12/19 CBC w/ auto diff IG # K/uL 0.0 0.03 0.01 FINAL Oziel Tolbert [facility] - [place], [address] [place] [id number] 0 Phone: () - 12/19 CBC w/ auto diff LY % % 14.0 41.0 30.6 FINAL Oziel Tolbert [facility] - [place], [address] [place] [id number] 0 Phone: () - 12/19 CBC w/ auto diff MO % % 6.0 15.0 9.3 FINAL Oziel Tolbert [facility] - [place], [address] [place] [id number] 0 Phone: () - 12/19 CBC w/ auto diff EO % % 0.0 7.0 4.0 FINAL Oziel [facility] - [place], [address] [place] [id number] 0 Phone: () - 12/19 CBC w/ auto diff BA % % 0.0 2.0 0.6 FINAL Oziel [facility] - [place], [address] [place] [id number] 0 Phone: () - 12/19 CBC w/ auto diff LY # K/uL 0.4 3.6 1.5 FINAL Oziel [facility] - [place], [address] [place] [id number] 0 Phone: () - 12/19 CBC w/ auto diff MO # K/uL 0.2 1.3 0.5 FINAL Oziel [facility] - [place], [address] [place] [id number] 0 Phone: () - 12/19 CBC w/ auto diff EO # K/uL 0.0 0.6 0.2 FINAL Oziel Tolbert [facility] - [place], [address] [place] [id number] 0 Phone: () - 12/19 CBC w/ auto diff BA # K/uL 0.0 0.2 0.0 FINAL Oziel angelo [facility] - [place], [address] [place] [id number] 0 Phone: () - 12/19 CBC w/ auto diff NRBC % #/100W BC 0.0 0.2 0.0 FINAL Oziel angelo [facility] - [place], [address] [place] [id number] 0 Phone: () - 12/19 CBC w/ auto diff RBC M/uL 3.9 5.1 3.68 Low FINAL Oziel angelo [facility] - [place], [address] [place] [id number] 0 Phone: () - 12/19 CBC w/ auto diff HCT % 35.0 48.0 35.3 FINAL Oziel angelo [facility] - [place], [address] [place] [id number] 0 Phone: () - 12/19 CBC w/ auto diff MCV fL 80.0 104.0 95.9 FINAL Oziel angelo [facility] - [place], [address] [place] [id number] 0 Phone: () - 12/19 CBC w/ auto diff MCH pg 26.0 35.0 32.1 FINAL Oziel angelo [facility] - [place], [address] [place] [id number] 0 Phone: () - 12/19 CBC w/ auto diff MCHC g/dL 30.0 35.0 33.4 FINAL Oziel angelo [facility] - [place], [address] [place] [id number] 0 Phone: () - 12/19 CBC w/ auto diff MPV fL 9.5 13.4 9.1 Low FINAL Oziel angelo [facility] - [place], [address] [place] [id number] 0 Phone: () - 12/19 CBC w/ auto diff RDW % 11.4 16.1 13.30 FINAL Oziel angelo [facility] - [place], [address] [place] [id number] 0 Phone: () - 12/19 CMP Album in g/dL 3.2 5.2 4.0 FINAL Oziel angelo [facility] - [place], [address] [place] [id number] 0 Phone: () - 12/19 CMP Alkal ine phosp hatas e U/L 46.0 116.0 58 FINAL Oziel angelo [facility] - [place], [address] [place] [id number] 0 Phone: () - 12/19 CMP ALT/S GPT U/L 7.0 40.0 13 FINAL Oziel angelo Oncology [facility], [address] [facility] [id number] 0 Phone: () - 12/19 CMP AST/S GOT U/L 13.0 40.0 24 FINAL Oziel angelo [facility], [address] [facility] 100 [facility] [id number] 0 Phone: () - 12/19 CMP BUN mg/dL 9.0 23.0 18 FINAL Oziel angelo [place] [address] [address] [facility] 100 [facility] [id number] 0 Phone: () - 12/19 CMP Calci um mg/dL 8.7 10.4 9.7 FINAL Oziel angelo [place] [address] [id number] 0 Phone: () - 12/19 CMP Chlor vipin mmol/L 96.0 114.0 111 FINAL Oziel angelo [place] [address] [id number] 0 Phone: () - 12/19 CMP CO2 [...] 96 hour stability window. FINAL Oziel angelo [facility], [facility] N [address] [id number] 0 Phone: () - 12/19 CMP Creat inine mg/dL 0.5 1.2 0.82 FINAL Oziel angelo [place] [address] [id number] 0 Phone: () - 12/19 CMP GFR estim ate ml/min /1.73m ^2 75.6 GFR is calculate d using the CKD-EPI equation. FINAL Oziel angelo [place] [address] [id number] 0 Phone: () - 12/19 CMP Gluco se mg/dL 73.0 126.0 81 FINAL Oziel angelo [facility] [address] [facility] 100 [facility] [id number] 0 Phone: () - 12/19 CMP Potas sium mmol/L 3.5 5.1 4.4 FINAL Oziel angelo [facility] [address] [facility] 100 [facility] [id number] 0 Phone: () - 12/19 CMP Sodiu m mmol/L 136.0 145.0 144 FINAL Oziel angelo [facility] [address] [facility] 100 [facility] [id number] 0 Phone: () - 12/19 CMP Bilir ubin, total mg/dL 0.3 1.2 0.4 FINAL Oziel angelo [place] [address] [id number] 0 Phone: () - 12/19 CMP Total prote in g/dL 5.7 8.2 6.3 FINAL Oziel angelo [place] [address] [address] [facility] [address] [id number] 0 Phone: () - 12/19 TSH w/ refle x to free T4 TSH uIU/ml 0.32 5.0 2.75 Test performed at [facility] on a [employer] Immunoass ay Analyzer that uses an immunoenz ymometric sandwich assay for analysis. Patient testing should not be performed using multiple methodolo ginaun due to analytica l variation seen between test methodharley amador. FINAL Oziel angelo [place] [address] [id number] 0 Phone: () - 01/12 [facility] [place] See budget controller d 01/16 CMP Album in g/dL 3.2 5.2 4.3 FINAL Oziel angelo [place] [address] [address] [facility] [address] [id number] 0 Phone: () - 01/16 CMP Alkal ine phosp hatas e U/L 46.0 116.0 64 FINAL Oziel angelo [facility] [address] [facility] [address] [place] [address] [id number] 0 Phone: () - 01/16 CMP ALT/S GPT U/L 7.0 40.0 12 FINAL Oziel angelo [facility], [address] [facility] [address] [id number] 0 Phone: () - 01/16 CMP AST/S GOT U/L 13.0 40.0 23 FINAL Oziel angeol [facility] [address] [facility] [address] [id number] 0 Phone: () - 01/16 CMP BUN mg/dL 9.0 23.0 17 FINAL Oziel angelo [place] [address] [id number] 0 Phone: () - 01/16 CMP Calci um mg/dL 8.7 10.4 9.4 FINAL Oziel angelo [place] [address] [id number] 0 Phone: () - 01/16 CMP Chlor vipin mmol/L 96.0 114.0 108 FINAL Oziel angelo [place] [address] [id number] 0 Phone: () - 01/16 CMP CO2 [...] 96 hour stability window. FINAL Oziel angelo [place] [address] [id number] 0 Phone: () - 01/16 CMP Creat inine mg/dL 0.5 1.2 1.07 FINAL Oziel angelo [place] [address] [address] [facility] [address] [id number] 0 Phone: () - 01/16 CMP GFR estim ate ml/min /1.73m ^2 54.9 Low GFR is calculate d using the CKD-EPI equation. FINAL Oziel angelo [facility], [facility] N [address] [id number] 0 Phone: () - 01/16 CMP Gluco se mg/dL 73.0 126.0 84 FINAL Oziel angelo [facility], [address] [facility] [id number] 0 Phone: () - 01/16 CMP Potas sium mmol/L 3.5 5.1 4.4 FINAL Oziel angelo [facility], [address] [facility] [id number] 0 Phone: () - 01/16 CMP Sodiu m mmol/L 136.0 145.0 141 FINAL Oziel angelo [facility] [address] [facility] [id number] 0 Phone: () - 01/16 CMP Bilir ubin, total mg/dL 0.3 1.2 0.4 FINAL Oziel angelo [facility] [address] [facility] [id number] 0 Phone: () - 01/16 CMP Total prote in g/dL 5.7 8.2 6.6 FINAL Oziel angelo [facility] [address] [facility] [id number] Phone: () - 01/16 TSH w/ refle x to free T4 TSH uIU/ml 0.32 5.0 14.74 High Provider Alert. Notified Vicki by Lynne Flannery on 01/19/2022 at 2:55 PM.Test performed at [facility] on a IActionable 2000 Immunoass ay Analyzer that uses an immunoenz ymometric sandwich assay for analysis. Patient testing should not be performed using multiple kathi amador due to analytica l variation seen between test kathi amador. FINAL Oziel angelo [facility], [address] [facility] [id number] 0 Phone: () - 01/16 CBC w/ auto diff WBC K/uL 3.0 8.9 4.4 FINAL Oziel angelo [facility] [place], [address] [facility] [id number] 0 Phone: () - 01/16 CBC w/ auto diff HGB g/dL 11.3 15.2 11.9 FINAL Oziel angelo [facility] [place], [address] [place] [id number] 0 Phone: () - 01/16 CBC w/ auto diff PLT K/uL 113.0 364.0 231 FINAL Oziel Tilley[facility] [place], [address] [place] [id number] 0 Phone: () - 01/16 CBC w/ auto diff Dave # (ANC) K/uL 1.6 6.6 2.4 FINAL Oziel Tilley[facility] a [facility] [place], [address] [place] [id number] 0 Phone: () - 01/16 CBC w/ auto diff Dave % % 43.0 74.0 54.7 FINAL Oziel Tilley[facility] a [facility] [place], [address] [place] [id number] 0 Phone: () - 01/16 CBC w/ auto diff IG % % 0.0 0.5 0.2 FINAL Oziel T[facility] [place], [address] [place] [id number] 0 Phone: () - 01/16 CBC w/ auto diff IG # K/uL 0.0 0.03 0.01 FINAL Oziel Tilley[facility] a [facility] [place], [address] [place] [id number] 0 Phone: () - 01/16 CBC w/ auto diff LY % % 14.0 41.0 31.8 FINAL Oziel [facility] [place], [address] [place] [id number] 0 Phone: () - 01/16 CBC w/ auto diff MO % % 6.0 15.0 8.9 FINAL Oziel T[facility] [place], [address] [place] [id number] 0 Phone: () - 01/16 CBC w/ auto diff EO % % 0.0 7.0 3.9 FINAL Oziel [facility] [place], [address] [place] [id number] 0 Phone: () - 01/16 CBC w/ auto diff BA % % 0.0 2.0 0.5 FINAL Oziel [facility] [place], [address] [place] [id number] 0 Phone: () - 01/16 CBC w/ auto diff LY # K/uL 0.4 3.6 1.4 FINAL Oziel T[facility] [place], [address] [place] [id number] 0 Phone: () - 01/16 CBC w/ auto diff MO # K/uL 0.2 1.3 0.4 FINAL Oziel T[facility] a [facility] [place], [address] [place] [id number] 0 Phone: () - 01/16 CBC w/ auto diff EO # K/uL 0.0 0.6 0.2 FINAL Oziel angelo [facility] [place], [address] [place] [id number] 0 Phone: () - 01/16 CBC w/ auto diff BA # K/uL 0.0 0.2 0.0 FINAL Oziel Tilleyot gi [facility] [place], [address] [place] [id number] 0 Phone: () - 01/16 CBC w/ auto diff NRBC % #/100W BC 0.0 0.2 0.0 FINAL Oziel Tilley[facility] [place], [address] [place] [id number] 0 Phone: () - 01/16 CBC w/ auto diff RBC M/uL 3.9 5.1 3.69 Low FINAL Oziel angelo [facility] [place], [address] [place] [id number] 0 Phone: () - 01/16 CBC w/ auto diff HCT % 35.0 48.0 35.0 FINAL [facility] [place], [address] [place] [id number] 0 Phone: () - 01/16 CBC w/ auto diff MCV fL 80.0 104.0 94.9 FINAL Oziel angelo [facility] [place], [address] [place] [id number] 0 Phone: () - 01/16 CBC w/ auto diff MCH pg 26.0 35.0 32.2 FINAL Oziel angelo [facility] [place], [address] [place] [id number] 0 Phone: () - 01/16 CBC w/ auto diff MCHC g/dL 30.0 35.0 34.0 FINAL Oziel angelo [facility] [place], [address] [place] [id number] 0 Phone: () - 01/16 CBC w/ auto diff MPV fL 9.5 13.4 8.8 Low FINAL Oziel angelo [facility] [place], [address] [place] [id number] 0 Phone: () - 01/16 CBC w/ auto diff RDW % 11.4 16.1 13.90 FINAL Oziel angelo [facility] [place], [address] [place] [id number] 0 Phone: () - 01/16 T4, free panel T4, free ng/dL 0.7 1.8 0.75 Test performed at [facility] on a Cargomatic Immunoass ay Analyzer that uses an immunoenz ymometric sandwich assay for analysis. Patient testing should not be performed using multiple methodharley amador due to analytica l variation seen between test kathi amador. FINAL Oziel angelo [facility] [place], [address] [place] [id number] 0 Phone: () - 02/20 TSH w/ refle x to free T4 TSH uIU/ml 0.32 5.0 Sent to Refer ce Lab. Hard copy results availab le only. Test performed at [facility] on a IActionable 2000 Immunoass ay Analyzer that uses an immunoenz ymometric sandwich assay for analysis. Patient testing should not be performed using multiple kathi amador due to analytica l variation seen between test kathi amador. FINAL Oziel angelo [facility] [place], [address] [place] [id number] 0 Phone: () - 02/20 TSH uIU/mL 0.35 4.94 8.74 High In Adults, TSH values between 5.00 and 10.00 uIU/ml do notnecess arily indicate the presence of Hypothyro idism.Cor relation with clinical findings such as presence of goiterand /or Thyropero xidase (TPO) Antibody may be helpful. Formore informati on please refer to MAYELA 2004; 291: 228-238.T est Performed by:[facility] [address] - [facility] [place] [address]Ffxy e [phone] FINAL Oziel Box 02/20 T4, free panel T4, free ng/dL 0.7 1.8 1.01 Test Performed by:[facility] [address] - [facility] [place], [place] [address]Uslb e : FINAL Oziel Box 05/08 CBC w/ auto diff WBC K/uL 3.0 8.9 7.3 FINAL Oziel angelo [facility] [place], [address] [facility] [place] [id number] 0 Phone: () - 05/08 CBC w/ auto diff HGB g/dL 11.3 15.2 11.0 Low FINAL Oziel angelo [facility] [place], [address] [address] [place] [id number] 0 Phone: () - 05/08 CBC w/ auto diff PLT K/uL 113.0 364.0 210 FINAL Oziel angelo [facility] [place], [address] [place] [id number] 0 Phone: () - 05/08 CBC w/ auto diff Dave # (ANC) K/uL 1.6 6.6 3.7 FINAL [facility] [place] [facility] [place], [address] [place] [id number] 0 Phone: () - 05/08 CBC w/ auto diff Dave % % 43.0 74.0 51.1 FINAL Oziel [facility] [place], [address] [place] [id number] 0 Phone: () - 05/08 CBC w/ auto diff IG % % 0.0 0.5 0.3 FINAL Oziel [facility] [place], [address] [place] [id number] 0 Phone: () - 05/08 CBC w/ auto diff IG # K/uL 0.0 0.03 0.02 FINAL Oziel [facility] [place], [address] [place] [id number] 0 Phone: () - 05/08 CBC w/ auto diff LY % % 14.0 41.0 37.9 FINAL Oziel [facility] [place], [address] [place] [id number] 0 Phone: () - 05/08 CBC w/ auto diff MO % % 6.0 15.0 9.2 FINAL Oziel [facility] [place], [address] [place] [id number] 0 Phone: () - 05/08 CBC w/ auto diff EO % % 0.0 7.0 1.2 FINAL Oziel [facility] [place], [address] [place] [id number] 0 Phone: () - 05/08 CBC w/ auto diff BA % % 0.0 2.0 0.3 FINAL Oziel [facility] [place], [address] [place] [id number] 0 Phone: () - 05/08 CBC w/ auto diff LY # K/uL 0.4 3.6 2.8 FINAL Oziel angelo [facility] [place], [address] [place] [id number] 0 Phone: () - 05/08 CBC w/ auto diff MO # K/uL 0.2 1.3 0.7 FINAL Oziel [facility] [place], [address] [place] [id number] 0 Phone: () - 05/08 CBC w/ auto diff EO # K/uL 0.0 0.6 0.1 FINAL Oziel [facility] [place], [address] [place] [id number] 0 Phone: () - 05/08 CBC w/ auto diff BA # K/uL 0.0 0.2 0.0 FINAL Oziel [facility] [place], [address] [place] [id number] 0 Phone: () - 05/08 CBC w/ auto diff NRBC % #/100W BC 0.0 0.2 0.0 FINAL Oziel angelo [facility] [place], [address] [place] [id number] 0 Phone: () - 05/08 CBC w/ auto diff RBC M/uL 3.9 5.1 3.27 Low FINAL Oziel angelo [facility] [place], [address] [place] [id number] 0 Phone: () - 05/08 CBC w/ auto diff HCT % 35.0 48.0 32.1 Low FINAL Oziel Tolbert a [facility] - [place], [address] [place] [id number] 0 Phone: () - 05/08 CBC w/ auto diff MCV fL 80.0 104.0 98.2 FINAL Oziel [facility] [place], [address] [place] [id number] 0 Phone: () - 05/08 CBC w/ auto diff MCH pg 26.0 35.0 33.6 FINAL Oziel angelo [facility] [place], [address] [place] [id number] 0 Phone: () - 05/08 CBC w/ auto diff MCHC g/dL 30.0 35.0 34.3 FINAL Oziel angelo [facility] [place], [address] [place] [id number] 0 Phone: () - 05/08 CBC w/ auto diff MPV fL 9.5 13.4 9.4 Low FINAL Oziel angelo [facility] [place], [address] [place] [id number] 0 Phone: () - 05/08 CBC w/ auto diff RDW % 11.4 16.1 13.10 FINAL Oziel angelo [facility] [place], [address] [place] [id number] 0 Phone: () - 05/08 CMP Album in g/dL 3.2 5.2 4.0 FINAL Oziel angelo [facility], [address] [place] [id number] 0 Phone: () - 05/08 CMP Alkal ine phosp hatas e U/L 46.0 116.0 56 FINAL Oziel angelo [facility], [address] [place] [id number] 0 Phone: () - 05/08 CMP ALT/S GPT U/L 7.0 40.0 17 FINAL Oziel angelo [facility], [address] [place] [id number] 0 Phone: () - 05/08 CMP AST/S GOT U/L 13.0 40.0 21 FINAL Oziel angelo [facility], [address] [place] [id number] 0 Phone: () - 05/08 CMP BUN mg/dL 9.0 23.0 22 FINAL Oziel angelo [facility], [address] [place] [id number] 0 Phone: () - 05/08 CMP Calci um mg/dL 8.7 10.4 9.3 FINAL Oziel angelo [place] [address] [id number] 0 Phone: () - 05/08 CMP Chlor vipin mmol/L 96.0 114.0 112 FINAL Oziel angelo [place] [address] [id number] 0 Phone: () - 05/08 CMP CO2 [...] 96 hour stability window. FINAL Oziel angelo [place] [address] [id number] 0 Phone: () - 05/08 CMP Creat inine mg/dL 0.5 1.2 0.86 FINAL Oziel angelo [place] [address] [id number] 0 Phone: () - 05/08 CMP GFR estim ate ml/min /1.73m ^2 71.2 GFR is calculate d using the CKD-EPI equation. FINAL Oziel angelo [place] [address] [id number] 0 Phone: () - 05/08 CMP Gluco se mg/dL 73.0 126.0 77 FINAL Oziel angelo [place] [address] [id number] 0 Phone: () - 05/08 CMP Potas sium mmol/L 3.5 5.1 3.9 FINAL Oziel angelo [place] [address] [id number] 0 Phone: () - 05/08 CMP Sodiu m mmol/L 136.0 145.0 148 High FINAL Oziel angelo [place] [address] [id number] 0 Phone: () - 05/08 CMP Bilir ubin, total mg/dL 0.3 1.2 0.4 FINAL Oziel angelo [place] [address] [id number] 0 Phone: () - 05/08 CMP Total prote in g/dL 5.7 8.2 6.1 FINAL Oziel angelo [place] [address] [id number] 0 Phone: () - 05/08 TSH w/ refle x to free T4 TSH uIU/ml 0.32 5.0 1.36 Test performed at [facility] on a Cargomatic Immunoass ay Analyzer that uses an immunoenz ymometric sandwich assay for analysis. Patient testing should not be performed using multiple methodolo gies due to analytica l variation seen between test methodolo ginaun. FINAL Oziel angelo [place] [address] [id number] 0 Phone: () - 07[place]23 [facility] [place] See budget controller d 07[place]23 [facility] [place] [place] See budget controller d 11/03 CMP Album in g/dL 3.2 5.2 4.1 FINAL Oziel angelo [place] [address] [id number] 0 Phone: () - 11/03 CMP Alkal ine phosp hatas e U/L 46.0 116.0 59 FINAL Oziel angelo [place] [address] [id number] 0 Phone: () - 11/03 CMP ALT/S GPT U/L 7.0 40.0 <7 FINAL Oziel angelo [place] [address] [id number] 0 Phone: () - 11/03 CMP AST/S GOT U/L 13.0 40.0 24 FINAL Oziel angelo [place] [address] [id number] 0 Phone: () - 11/03 CMP BUN mg/dL 9.0 23.0 16.0 FINAL Oziel angelo [place] [address] [address] [facility] [address] [facility] [id number] 0 Phone: () - 11/03 CMP Calci um mg/dL 8.7 10.4 9.1 FINAL Oziel angelo [place] [address] [id number] 0 Phone: () - 11/03 CMP Chlor vipin mmol/L 96.0 114.0 105 FINAL Oziel angelo [place] [address] [id number] 0 Phone: () - 11/03 CMP CO2 [...] 96 hour stability window. FINAL Oziel angelo [place] [address] [id number] 0 Phone: () - 11/03 CMP Creat inine mg/dL 0.5 1.2 0.88 FINAL Oziel angelo [address] [id number] 0 Phone: () - 11/03 CMP GFR estim ate ml/min /1.73m ^2 69.0 GFR is calculate d using the CKD-EPI equation. FINAL Oziel angelo [place] [address] [id number] 0 Phone: () - 11/03 CMP Gluco se mg/dL 73.0 126.0 105 FINAL Oziel angelo [place] [address] [id number] 0 Phone: () - 11/03 CMP Potas sium mmol/L 3.5 5.1 4.4 FINAL Oziel angelo [place] [address] [id number] 0 Phone: () - 11/03 CMP Sodiu m mmol/L 136.0 145.0 139 FINAL Oziel angelo [facility] [place], [address] [place] [id number] 0 Phone: () - 11/03 CMP Bilir ubin, total mg/dL 0.3 1.2 0.6 FINAL Oziel angelo [facility] [place], [address] [place] [id number] 0 Phone: () - 11/03 CMP Total prote in g/dL 5.7 8.2 6.6 FINAL Oziel angelo [facility] [place], [address] [place] [id number] 0 Phone: () - 11/03 CBC w/ auto diff WBC K/uL 3.0 8.9 4.7 FINAL Oziel angelo [facility] [place], [address] [facility] [place] [id number] 0 Phone: () - 11/03 CBC w/ auto diff HGB g/dL 11.3 15.2 11.6 FINAL Oziel angelo [facility] [place], [address] [place] [id number] 0 Phone: () - 11/03 CBC w/ auto diff PLT K/uL 113.0 364.0 248 FINAL Oziel angleo [facility] [place], [address] [place] [id number] 0 Phone: () - 11/03 CBC w/ auto diff Dave # (ANC) K/uL 1.6 6.6 2.9 FINAL Oziel angelo [facility] [place], [address] [place] [id number] 0 Phone: () - 11/03 CBC w/ auto diff Dave % % 43.0 74.0 60.9 FINAL Oziel angelo [facility] [place], [address] [place] [id number] 0 Phone: () - 11/03 CBC w/ auto diff IG % % 0.0 0.5 0.4 FINAL [facility] [place] [facility] [place], [address] [place] [id number] 0 Phone: () - 11/03 CBC w/ auto diff IG # K/uL 0.0 0.03 0.02 FINAL Oziel T[facility]leyot [facility] - [place], [address] [place] [id number] 0 Phone: () - 11/03 CBC w/ auto diff LY % % 14.0 41.0 26.8 FINAL Oziel [facility]ley[facility] [place], [address] [place] [id number] 0 Phone: () - 11/03 CBC w/ auto diff MO % % 6.0 15.0 8.5 FINAL Oziel [facility] [place], [address] [place] [id number] 0 Phone: () - 11/03 CBC w/ auto diff EO % % 0.0 7.0 3.0 FINAL Oziel [facility] [place], [address] [place] [id number] 0 Phone: () - 11/03 CBC w/ auto diff BA % % 0.0 2.0 0.4 FINAL Oziel [facility] [place], [address] [place] [id number] 0 Phone: () - 11/03 CBC w/ auto diff LY # K/uL 0.4 3.6 1.3 FINAL Oziel [facility] - [place], [address] [place] [id number] 0 Phone: () - 11/03 CBC w/ auto diff MO # K/uL 0.2 1.3 0.4 FINAL Oziel [facility] [place], [address] [place] [id number] 0 Phone: () - 11/03 CBC w/ auto diff EO # K/uL 0.0 0.6 0.1 FINAL Oziel angelo [facility] [place], [address] [place] [id number] 0 Phone: () - 11/03 CBC w/ auto diff BA # K/uL 0.0 0.2 0.0 FINAL Oziel Tolbert a [facility] - [place], [address] [place] [id number] 0 Phone: () - 11/03 CBC w/ auto diff NRBC % #/100W BC 0.0 0.2 0.0 FINAL Oizel Tilleyot a [facility] - [place], [address] [place] [id number] 0 Phone: () - 11/03 CBC w/ auto diff RBC M/uL 3.9 5.1 3.52 Low FINAL Oziel Tolbert a [facility] - [place], [address] [place] [id number] 0 Phone: () - 11/03 CBC w/ auto diff HCT % 35.0 48.0 34.2 Low FINAL Oziel angelo [facility] [place], [address] [place] [id number] 0 Phone: () - 11/03 CBC w/ auto diff MCV fL 80.0 104.0 97.2 FINAL Oziel angelo [facility] [place], [address] [place] [id number] 0 Phone: () - 11/03 CBC w/ auto diff MCH pg 26.0 35.0 33.0 FINAL Oziel angelo [facility] [place], [address] [place] [id number] 0 Phone: () - 11/03 CBC w/ auto diff MCHC g/dL 30.0 35.0 33.9 FINAL Oziel T[facility]ley[facility] - [place], [address] [place] [id number] 0 Phone: () - 11/03 CBC w/ auto diff MPV fL 9.5 13.4 8.7 Low FINAL Oziel angelo [facility] [place], [address] [place] [id number] 0 Phone: () - 11/03 CBC w/ auto diff RDW % 11.4 16.1 14.40 FINAL Oziel angelo [facility] [place], [address] [place] [id number] 0 Phone: () - 02/08 TSH w/ refle x to free T4 TSH uIU/ml 0.32 5.0 3.61 Test performed at [facility] on a [employer] Immunoass ay Analyzer that uses an immunoenz ymometric sandwich assay for analysis. Patient testing should not be performed using multiple methodharley amador due to analytica l variation seen between test methodharley amador. FINAL Oziel angelo [facility] - [place], [address] [place] [id number] 0 Phone: () - 02/08 CBC w/ auto diff WBC K/uL 3.0 8.9 4.7 FINAL Oziel angelo [facility] - [place], [address] [place] [id number] 0 Phone: () - 02/08 CBC w/ auto diff HGB g/dL 11.3 15.2 11.0 Low FINAL Oziel angelo [facility] - [place], [address] [place] [id number] 0 Phone: () - 02/08 CBC w/ auto diff PLT K/uL 113.0 364.0 194 FINAL Oziel angelo [facility] - [place], [address] [place] [id number] 0 Phone: () - 02/08 CBC w/ auto diff Dave # (ANC) K/uL 1.6 6.6 2.7 FINAL Oziel angelo [facility] - [place], [address] [place] [id number] 0 Phone: () - 02/08 CBC w/ auto diff Dave % % 43.0 74.0 57.2 FINAL [facility] [place] [facility] [place], [address] [place] [id number] 0 Phone: () - 02/08 CBC w/ auto diff IG % % 0.0 0.5 0.4 FINAL Oziel [facility] - [place], [address] [place] [id number] 0 Phone: () - 02/08 CBC w/ auto diff IG # K/uL 0.0 0.03 0.02 FINAL Oziel [facility] - [place], [address] [place] [id number] 0 Phone: () - 02/08 CBC w/ auto diff LY % % 14.0 41.0 31.6 FINAL Oziel [facility] - [place], [address] [place] [id number] 0 Phone: () - 02/08 CBC w/ auto diff MO % % 6.0 15.0 8.0 FINAL Oziel [facility] - [place], [address] [place] [id number] 0 Phone: () - 02/08 CBC w/ auto diff EO % % 0.0 7.0 2.2 FINAL Oziel T[facility]ley[facility] - [place], [address] [place] [id number] 0 Phone: () - 02/08 CBC w/ auto diff BA % % 0.0 2.0 0.6 FINAL Oziel [facility] - [place], [address] [place] [id number] 0 Phone: () - 02/08 CBC w/ auto diff LY # K/uL 0.4 3.6 1.5 FINAL Oziel T[facility] - [place], [address] [place] [id number] 0 Phone: () - 02/08 CBC w/ auto diff MO # K/uL 0.2 1.3 0.4 FINAL Oziel Tolbert a [facility] - [place], [address] [place] [id number] 0 Phone: () - 02/08 CBC w/ auto diff EO # K/uL 0.0 0.6 0.1 FINAL Oziel T[facility]leyot a [facility] - [place], [address] [place] [id number] 0 Phone: () - 02/08 CBC w/ auto diff BA # K/uL 0.0 0.2 0.0 FINAL zOiel Tilleyot a [facility] - [place], [address] [place] [id number] 0 Phone: () - 02/08 CBC w/ auto diff NRBC % #/100W BC 0.0 0.2 0.0 FINAL Oziel T[facility] - [place], [address] [place] [id number] 0 Phone: () - 02/08 CBC w/ auto diff RBC M/uL 3.9 5.1 3.26 Low FINAL Oziel angelo [facility] - [place], [address] [place] [id number] 0 Phone: () - 02/08 CBC w/ auto diff HCT % 35.0 48.0 32.9 Low FINAL Oziel angelo [facility] - [place], [address] [place] [id number] 0 Phone: () - 02/08 CBC w/ auto diff MCV fL 80.0 104.0 100.9 FINAL Oziel T[facility]ley[facility] - [place], [address] [place] [id number] 0 Phone: () - 02/08 CBC w/ auto diff MCH pg 26.0 35.0 33.7 FINAL Oziel [facility]ley[facility] - [place], [address] [place] [id number] 0 Phone: () - 02/08 CBC w/ auto diff MCHC g/dL 30.0 35.0 33.4 FINAL Oziel angelo [facility] - [place], [address] [place] [id number] 0 Phone: () - 02/08 CBC w/ auto diff MPV fL 9.5 13.4 9.0 Low FINAL Oziel angelo [facility] - [place], [address] [place] [id number] 0 Phone: () - 02/08 CBC w/ auto diff RDW % 11.4 16.1 13.70 FINAL Oziel angeol [facility] - [place], [address] [facility] [address] [place] [id number] 0 Phone: () - 02/08 CMP Album in g/dL 3.2 5.2 4.0 FINAL Oziel angelo [facility], [address] [place] [address] [id number] 0 Phone: () - 02/08 CMP Alkal ine phosp hatas e U/L 46.0 116.0 83 FINAL Oziel angelo [facility], [address] [place] [id number] 0 Phone: () - 02/08 CMP ALT/S GPT U/L 7.0 40.0 <7 FINAL Oziel angelo [facility], [address] [place] [id number] 0 Phone: () - 02/08 CMP AST/S GOT U/L 13.0 40.0 23 FINAL Oziel angelo [facility], [address] [place] [id number] 0 Phone: () - 02/08 CMP BUN mg/dL 9.0 23.0 17.0 FINAL Oziel angelo [facility], [address] [place] [id number] 0 Phone: () - 02/08 CMP Calci um mg/dL 8.7 10.4 8.8 FINAL Oziel angelo [facility], [address] [facility] [id number] 0 Phone: () - 02/08 CMP Chlor vipin mmol/L 96.0 114.0 109 FINAL Oziel angelo [facility], [address] [facility] [address] [id number] 0 Phone: () - 02/08 CMP CO2 [...] 96 hour stability window. FINAL Oziel angelo [place] [address] [id number] 0 Phone: () - 02/08 CMP Creat inine mg/dL 0.5 1.2 0.86 FINAL Oziel angelo [place] [address] [id number] 0 Phone: () - 02/08 CMP GFR estim ate ml/min /1.73m ^2 70.9 GFR is calculate d using the CKD-EPI equation. FINAL Oziel angelo [place] [address] [address] [facility] [address] [id number] 0 Phone: () - 02/08 CMP Gluco se mg/dL 73.0 126.0 84 FINAL Oziel angelo [facility] [address] [facility] [address] [id number] 0 Phone: () - 02/08 CMP Potas sium mmol/L 3.5 5.1 4.5 FINAL Oziel angelo [facility] [address] [facility] [address] [id number] 0 Phone: () - 02/08 CMP Sodiu m mmol/L 136.0 145.0 141 FINAL Oziel angelo [place] [address] [address] [facility] [address] [id number] 0 Phone: () - 02/08 CMP Bilir ubin, total mg/dL 0.3 1.2 0.3 FINAL Oziel angelo [facility] [address] [facility] [address] [id number] 0 Phone: () - 02/08 CMP Total prote in g/dL 5.7 8.2 6.1 FINAL Oziel [facility] [place], [address] [place] [id number] 0 Phone: () - 06/06 [facility] [place] See budget controller d 08/09 CBC w/ auto diff WBC K/uL 3.0 8.9 3.5 FINAL Oziel Tolbert [facility] - [place], [address] [place] [id number] 0 Phone: () - 08/09 CBC w/ auto diff HGB g/dL 11.3 15.2 11.7 FINAL Oziel Tolbert [facility] - [place], [address] [place] [id number] 0 Phone: () - 08/09 CBC w/ auto diff PLT K/uL 113.0 364.0 196 FINAL Oziel angelo [facility] - [place], [address] [place] [id number] 0 Phone: () - 08/09 CBC w/ auto diff Dave # (ANC) K/uL 1.6 6.6 1.9 FINAL Oziel angelo [facility] - [place], [address] [place] [id number] 0 Phone: () - 08/09 CBC w/ auto diff Dave % % 43.0 74.0 52.2 FINAL Oziel angelo [facility] - [place], [address] [place] [id number] 0 Phone: () - 08/09 CBC w/ auto diff IG % % 0.0 0.5 0.3 FINAL Oziel Tolbert [facility] - [place], [address] [place] [id number] 0 Phone: () - 08/09 CBC w/ auto diff IG # K/uL 0.0 0.03 0.01 FINAL Oziel [facility] - [place], [address] [place] [id number] 0 Phone: () - 08/09 CBC w/ auto diff LY % % 14.0 41.0 35.0 FINAL Oziel Tolbert [facility] - [place], [address] [place] [id number] 0 Phone: () - 08/09 CBC w/ auto diff MO % % 6.0 15.0 9.6 FINAL Oziel Tilley[facility] - [place], [address] [place] [id number] 0 Phone: () - 08/09 CBC w/ auto diff EO % % 0.0 7.0 2.3 FINAL Oziel Tolbert [facility] - [place], [address] [place] [id number] 0 Phone: () - 08/09 CBC w/ auto diff BA % % 0.0 2.0 0.6 FINAL Oziel angelo [facility] - [place], [address] [place] [id number] 0 Phone: () - 08/09 CBC w/ auto diff LY # K/uL 0.4 3.6 1.2 FINAL Oziel angelo [facility] - [place], [address] [place] [id number] 0 Phone: () - 08/09 CBC w/ auto diff MO # K/uL 0.2 1.3 0.3 FINAL Oziel Tolbert [facility] - [place], [address] [place] [id number] 0 Phone: () - 08/09 CBC w/ auto diff EO # K/uL 0.0 0.6 0.1 FINAL Oziel angelo [facility] - [place], [address] [place] [id number] 0 Phone: () - 08/09 CBC w/ auto diff BA # K/uL 0.0 0.2 0.0 FINAL Oziel T[facility] - [place], [address] [place] [id number] 0 Phone: () - 08/09 CBC w/ auto diff NRBC % #/100W BC 0.0 0.2 0.0 FINAL Oziel [facility] - [place], [address] [place] [id number] 0 Phone: () - 08/09 CBC w/ auto diff RBC M/uL 3.9 5.1 3.51 Low FINAL Oziel [facility] - [place], [address] [place] [id number] 0 Phone: () - 08/09 CBC w/ auto diff HCT % 35.0 48.0 35.6 FINAL Oziel [facility] - [place], [address] [place] [id number] 0 Phone: () - 08/09 CBC w/ auto diff MCV fL 80.0 104.0 101.4 FINAL Oziel [facility] - [place], [address] [place] [id number] 0 Phone: () - 08/09 CBC w/ auto diff MCH pg 26.0 35.0 33.3 FINAL Oziel [facility] - [place], [address] [place] [id number] 0 Phone: () - 08/09 CBC w/ auto diff MCHC g/dL 30.0 35.0 32.9 FINAL Oziel [facility] - [place], [address] [place] [id number] 0 Phone: () - 08/09 CBC w/ auto diff MPV fL 9.5 13.4 9.3 Low FINAL Oziel [facility] [place], [address] [place] [id number] 0 Phone: () - 08/09 CBC w/ auto diff RDW % 11.4 16.1 13.20 FINAL Oziel [facility] - [place], [address] [facility] [place] [place] [id number] 0 Phone: 08/09 CMP Album in g/dL 3.5 5.0 4.1 FINAL Oziel Box * [facility], [address] [facility] [id number] 0 08/09 CMP Alkal ine phosp hatas e U/L 36.0 125.0 66 FINAL Oziel Box * [place], [address] [facility] [id number] 0 08/09 CMP ALT/S GPT U/L 0.0 34.0 6 FINAL Oziel Box * [facility], [address] [facility] [id number] 0 08/09 CMP AST/S GOT U/L 14.0 36.0 28 FINAL Oziel Box * [place] [facility], [address] [facility] [id number] 0 08/09 CMP BUN mg/dL 7.0 17.0 17.0 FINAL Oziel Box * [facility], [address] [facility] [id number] 0 08/09 CMP Calci um mg/dL 8.4 10.2 9.4 FINAL Oziel Box * [place] [facility], [address] [facility] [id number] 0 08/09 CMP Chlor vipin mmol/L 96.0 107.0 106 FINAL Oziel Isauro * [place] [facility], [address] [facility] [id number] 0 08/09 CMP CO2 mmol/L 22.0 30.0 [...] hour stability window. FINAL Oziel Tilleyot a [facility], [address] [id number] 0 08/09 CMP Creat inine mg/dL 0.66 1.25 0.70 FINAL Oziel Tilleyot a [facility], [address] [id number] 0 08/09 CMP GFR estim ate ml/min /1.73m ^2 90.4 GFR is calculate d using the CKD-EPI equation. [facility] [address] [id number] 0 08/09 CMP Gluco se mg/dL 74.0 100.0 87 FINAL Oziel Tilleyot a [facility], [address] [id number] 0 08/09 CMP Potas sium mmol/L 3.5 5.1 4.2 FINAL Oziel Tilleyot a [facility], [address] [id number] 0 08/09 CMP Sodiu m mmol/L 137.0 145.0 139 FINAL Oziel Tilleyot a [facility], [address] [id number] 0 08/09 CMP Bilir ubin, total mg/dL 0.2 1.3 0.3 FINAL Oziel Tilleyot a [facility], [address] [id number] 0 08/09 CMP Total prote in g/dL 6.3 8.2 6.7 FINAL Oziel Box * [place] [facility] [place], [address] [facility] [id number] 0 08/09 TSH w/ refle x to free T4 TSHR- v mIU/ml 0.47 4.68 0.74 FINAL Oziel Box * [place] [facility] [place], [address] [facility] [id number] 0 02/13 CBC w/ auto diff WBC K/uL 3.0 8.9 4.7 FINAL Oziel FREEMAN [facility] - [place], [address] [place] [id number] 0 02/13 CBC w/ auto diff HGB g/dL 11.3 15.2 10.4 Low FINAL Oziel FREEMAN [facility] - [place], [address] [place] [id number] 0 02/13 CBC w/ auto diff PLT K/uL 113.0 364.0 252 FINAL Oziel FREEMAN [facility] - [place], [address] [place] [id number] 0 02/13 CBC w/ auto diff Dave # (ANC) K/uL 1.6 6.6 2.4 FINAL Oziel FREEMAN [facility] - [place], [address] [place] [id number] 0 02/13 CBC w/ auto diff Dave % % 43.0 74.0 51.3 FINAL Oziel FREEMAN [facility] - [place], [address] [place] [id number] 0 02/13 CBC w/ auto diff IG % % 0.0 0.5 0.2 FINAL Oziel Box [place] [facility] - [place], [address] [place] [id number] 0 02/13 CBC w/ auto diff IG # K/uL 0.0 0.03 0.01 FINAL Oziel FREEMAN [facility] - [place], [address] [place] [id number] 0 02/13 CBC w/ auto diff LY % % 14.0 41.0 33.5 FINAL Oziel FREEMAN [facility] - [place], [address] [place] [id number] 0 02/13 CBC w/ auto diff MO % % 6.0 15.0 8.8 FINAL Oziel FREEMAN [facility] - [place], [address] [place] [id number] 0 02/13 CBC w/ auto diff EO % % 0.0 7.0 5.6 FINAL Oziel FREEMAN [facility] - [place], [address] [place] [id number] 0 02/13 CBC w/ auto diff BA % % 0.0 2.0 0.6 FINAL Oziel FREEMAN [facility] - [place], [address] [place] [id number] 0 02/13 CBC w/ auto diff LY # K/uL 0.4 3.6 1.6 FINAL Oziel FREEMAN [facility] - [place], [address] [place] [id number] 0 02/13 CBC w/ auto diff MO # K/uL 0.2 1.3 0.4 FINAL Oziel FREEMAN [facility] - [place], [address] [place] [id number] 0 02/13 CBC w/ auto diff EO # K/uL 0.0 0.6 0.3 FINAL Oziel FREEMAN [facility] - [place], [address] [place] [id number] 0 02/13 CBC w/ auto diff BA # K/uL 0.0 0.2 0.0 FINAL Oziel FREEMAN [facility] - [place], [address] [place] [id number] 0 02/13 CBC w/ auto diff NRBC % #/100W BC 0.0 0.2 0.0 FINAL Oziel FREEMAN [facility] - [place], [address] [place] [id number] 0 02/13 CBC w/ auto diff RBC M/uL 3.9 5.1 3.24 Low FINAL Oziel FREEMAN [facility] - [place], [address] [place] [id number] 0 02/13 CBC w/ auto diff HCT % 35.0 48.0 32.3 Low FINAL Oziel FREEMAN [facility] - [place], [address] [place] [id number] 0 02/13 CBC w/ auto diff MCV fL 80.0 104.0 99.7 FINAL Oziel FREEMAN [facility] - [place], [address] [place] [id number] 0 02/13 CBC w/ auto diff MCH pg 26.0 35.0 32.1 FINAL Oziel FREEMAN [facility] - [place], [address] [place] [id number] 0 02/13 CBC w/ auto diff MCHC g/dL 30.0 35.0 32.2 FINAL Oziel FREEMAN [facility] - [place], [address] [place] [id number] 0 02/13 CBC w/ auto diff MPV fL 9.5 13.4 9.1 Low FINAL Oziel FREEMAN [facility] - [place], [address] [place] [id number] 0 02/13 CBC w/ auto diff RDW % 11.4 16.1 13.70 FINAL Oziel FREEMAN [facility] - [place], [address] [place] [id number] 0 02/13 CMP Album in g/dL 3.5 5.0 3.5 FINAL Oziel Box * [place] [facility], [address] [facility] [id number] 0 02/13 CMP Alkal ine phosp hatas e U/L 36.0 125.0 75 FINAL Oziel Box * [place] [facility], [address] [facility] [id number] 0 02/13 CMP ALT/S GPT U/L 0.0 34.0 <4 Repeate d FINAL Oziel Box * [place] [facility], [address] [facility] [id number] 0 02/13 CMP AST/S GOT U/L 14.0 36.0 17 FINAL Oziel Box * [place] [facility], [address] [facility] [id number] 0 02/13 CMP BUN mg/dL 7.0 17.0 18.0 High FINAL Oziel Box * [place] [facility], [address] [facility] [id number] 0 02/13 CMP Calci um mg/dL 8.4 10.2 9.2 FINAL Oziel Card [place] [facility], [address] [facility] [id number] 0 02/13 CMP Chlor vipin mmol/L 96.0 107.0 109 High FINAL Oziel Card [place] [facility], [address] [facility] [id number] 0 02/13 CMP CO2 mmol/L 22.0 30.0 [...] 96 hour stability window. FINAL Oziel Card [facility], [address] [facility] [id number] 0 02/13 CMP Creat inine mg/dL 0.66 1.25 0.80 FINAL Oziel Card [place] [facility], [address] [facility] [id number] 0 02/13 CMP GFR estim ate ml/min /1.73m ^2 76.8 GFR is calculate d using the CKD-EPI equation. FINAL Oziel Card [facility], [address] [facility] [id number] 0 02/13 CMP Gluco se mg/dL 74.0 100.0 84 FINAL Oziel Card [place] [facility], [address] [facility] [id number] 0 02/13 CMP Potas sium mmol/L 3.5 5.1 4.4 FINAL Oziel Card [place] [facility], [address] [facility] [id number] 0 02/13 CMP Sodiu m mmol/L 137.0 145.0 137 FINAL Oziel Box * [place] [facility] [place], [address] [facility] [id number] 0 02/13 CMP Bilir ubin, total mg/dL 0.2 1.3 0.5 FINAL Oziel Box * [place] [facility] [place], [address] [facility] [id number] 0 02/13 CMP Total prote in g/dL 6.3 8.2 6.2 Low FINAL Oziel Box * [place] [facility] [place], [address] [facility] [id number] 0 04/03 Misc other lab See budget controller d 08/14 CMP Album in g/dL 3.5 5.0 3.7 FINAL Oziel Box * [facility] , [address] [facility] [id number] 0 08/14 CMP Alkal ine phosp hatas e U/L 36.0 125.0 68 FINAL Oziel Box * [facility] , [address] [facility] [id number] 0 08/14 CMP ALT/S GPT U/L 0.0 34.0 10 FINAL Oziel Box * [place] [facility] , [address] [facility] [id number] 0 08/14 CMP AST/S GOT U/L 14.0 36.0 28 FINAL Oziel Box * [facility] , [address] [facility] [id number] 0 08/14 CMP BUN mg/dL 7.0 17.0 25.0 High FINAL Oziel Box * [facility] , [address] [facility] [id number] 0 08/14 CMP Calci um mg/dL 8.4 10.2 8.7 FINAL Oziel Box * [facility] , [address] [facility] [address] [facility] [id number] 0 08/14 CMP Chlor vipin mmol/L 96.0 107.0 109 High FINAL Oziel Box * [facility] , [address] [facility] [address] [facility] [id number] 0 08/14 CMP CO2 mmol/L 22.0 30.0 [...] hour stability window. FINAL Oziel Box * [facility] , [address] [facility] [address] [facility] [id number] 0 08/14 CMP Creat inine mg/dL 0.66 1.25 0.90 FINAL Oziel Box * [facility] , [address] [id number] 0 08/14 CMP GFR estim ate ml/min /1.73m ^2 66.5 GFR is calculate d using the CKD-EPI equation. FINAL Oziel Box * [facility] , [address] [id number] 0 08/14 CMP Gluco se mg/dL 74.0 100.0 95 FINAL Oziel Box * [facility] , [address] [id number] 0 08/14 CMP Potas sium mmol/L 3.5 5.1 4.5 FINAL Oziel Box * [facility] , [address] [facility] [address] [id number] 0 08/14 CMP Sodiu m mmol/L 137.0 145.0 137 FINAL Oziel Box * [facility] , [address] [facility] [id number] 0 08/14 CMP Bilir ubin, total mg/dL 0.2 1.3 0.8 FINAL Oziel Box * [facility] , [address] [facility] [id number] 0 08/14 CMP Total prote in g/dL 6.3 8.2 6.5 FINAL Oziel Box * [facility] , [address] [facility] [id number] 0 08/14 CBC w/ auto diff WBC K/uL 3.0 8.9 4.7 FINAL Oziel Box [place] [facility] , [address] [place] [facility] [id number] 0 08/14 CBC w/ auto diff HGB g/dL 11.3 15.2 11.5 FINAL Oziel Box [place] [facility] , [address] [place] [facility] [id number] 0 08/14 CBC w/ auto diff PLT K/uL 113.0 364.0 211 FINAL Oziel Box [place] [facility] , [address] [place] [facility] [id number] 0 08/14 CBC w/ auto diff Dave # (ANC) K/uL 1.6 6.6 2.9 FINAL Oziel Box [place] [facility] [place] [facility] , [address] [place] [facility] [id number] 0 08/14 CBC w/ auto diff Dave % % 43.0 74.0 61.3 FINAL Oziel Box [place] [facility] [place] [facility] , [address] [place] [id number] 0 08/14 CBC w/ auto diff IG % % 0.0 0.5 0.2 FINAL Oziel Box [place] [facility] , [address] [place] [id number] 0 08/14 CBC w/ auto diff IG # K/uL 0.0 0.03 0.01 FINAL Oziel Box [place] [facility] , [address] [place] [id number] 0 08/14 CBC w/ auto diff LY % % 14.0 41.0 25.6 FINAL Oziel Box [place] [facility] , [address] [place] [id number] 0 08/14 CBC w/ auto diff MO % % 6.0 15.0 8.7 FINAL Oziel Box [place] [facility] , [address] [place] [id number] 0 08/14 CBC w/ auto diff EO % % 0.0 7.0 3.8 FINAL Oziel Box [place] [facility] , [address] [place] [id number] 0 08/14 CBC w/ auto diff BA % % 0.0 2.0 0.4 FINAL Oziel Box [place] [facility] , [address] [place] [id number] 0 08/14 CBC w/ auto diff LY # K/uL 0.4 3.6 1.2 FINAL Oziel Box [place] [facility] , [address] [place] [id number] 0 08/14 CBC w/ auto diff MO # K/uL 0.2 1.3 0.4 FINAL Oziel Box [place] [facility] , [address] [place] [id number] 0 08/14 CBC w/ auto diff EO # K/uL 0.0 0.6 0.2 FINAL Oziel Box [place] [facility] , [address] [place] [id number] 0 08/14 CBC w/ auto diff BA # K/uL 0.0 0.2 0.0 FINAL Oziel Box [place] [facility] , [address] [place] [id number] 0 08/14 CBC w/ auto diff NRBC % #/100W BC 0.0 0.2 0.0 FINAL Oziel Box [place] [facility] , [address] [place] [id number] 0 08/14 CBC w/ auto diff RBC M/uL 3.9 5.1 3.60 Low FINAL Oziel Box [place] [facility] , [address] [place] [id number] 0 08/14 CBC w/ auto diff HCT % 35.0 48.0 35.2 FINAL Oziel Box [place] [facility] , [address] [place] [id number] 0 08/14 CBC w/ auto diff MCV fL 80.0 104.0 97.8 FINAL Oziel Box [place] [facility] [place] [facility] , [address] [place] [id number] 0 08/14 CBC w/ auto diff MCH pg 26.0 35.0 31.9 FINAL Oziel Box [place] [facility] , [address] [place] [id number] 0 08/14 CBC w/ auto diff MCHC g/dL 30.0 35.0 32.7 [facility] , [address] [address] [facility] [id number] 0 08/14 CBC w/ auto diff MPV fL 9.5 13.4 9.0 Low FINAL Oziel Ryan [facility] , [address] [facility] [address] [facility] [id number] 0 08/14 CBC w/ auto diff RDW % 11.4 16.1 13.60 [facility] , [address] [facility] [address] [facility] [id number] Medications Date Name Route Dose Frequency Instructions Start Date End Date Status Vitamin Z09-Nwnfi Acid Oral 500 mcg-400 mcg daily active [...] concentration must be 0.3-1.2 mg/mL.Administ er using [id number] ining equipment and through an in-line 0.22 [...]
--- OUTSIDE RECORDS SUMMARY | 2024-08-27 14:32 | XMS_ITS ---
Author Name Interface, [id number] lity Address [address] [facility] [address] [address] [facility] Address [address] [facility] [address] [address] Care Team Providers Care Cell Stripper Final Name Role Phone Jignesh Valadez Unavailable Allergies [...] 30 MIN 10/02/2021 APPOINTMENT CHART CHECK 5 PA N 10/01/2021 APPOINTMENT OUTSIDE TEST 5 M [...] 15 MIN 04/08/2021 APPOINTMENT CHART CHECK 5 PA N 04/07/2021 APPOINTMENT OUTSIDE TEST 5 M [...] 0.6 1.3 0.7 FINAL Oziel angelo On[facility], [address] [place] [address] [place] [address] [phone] Phone: () - 12/24 iSTAT creat inine panel GFR estim ate ml/min /1.73m ^2 86.7 GFR is calculate d using the CKD-EPI equation. FINAL Oziel angelo [facility], [address] [place] [address] [address] [facility] [phone] Phone: () - 12/24 CMP Album in g/dL 3.2 5.2 4.3 FINAL Oziel angelo [facility], [facility] [address] [facility] [address] [place] [address] [place] [address] [phone] 0 Phone: () - 12/24 CMP Alkal ine phosp hatas e U/L 46.0 116.0 68 FINAL Oziel angelo [facility], [address] [facility] [address] [place] [address] [place] [address] [phone] 0 Phone: () - 12/24 CMP ALT/S GPT U/L 7.0 40.0 12 FINAL Oziel angelo [facility], [address] [facility] [address] [place] [address] [place] [address] [id number] 0 Phone: () - 12/24 CMP AST/S GOT U/L 13.0 40.0 19 FINAL Oziel angelo [place] [address] [id number] 0 Phone: () - 12/24 CMP BUN mg/dL 9.0 23.0 17 FINAL Oziel angelo [facility] [address] [id number] 0 Phone: () - 12/24 CMP Calci um mg/dL 8.7 10.4 10.0 FINAL Oziel angelo [place] [address] [id number] 0 Phone: () - 12/24 CMP Chlor vipin mmol/L 96.0 114.0 107 FINAL Oziel angelo [place] [address] [id number] 0 Phone: () - 12/24 CMP CO2 [...] 96 hour stability window. FINAL Oziel angelo [facility], [facility] [address] [id number] 0 Phone: () - 12/24 CMP Creat inine mg/dL 0.5 1.2 0.85 FINAL Oziel angelo [place] [address] [id number] 0 Phone: () - 12/24 CMP GFR estim ate ml/min /1.73m ^2 68.5 GFR is calculate d using the CKD-EPI equation. FINAL Oziel angelo [place] [address] [id number] 0 Phone: () - 12/24 CMP Gluco se mg/dL 73.0 126.0 207 High FINAL Oziel angelo [place] [address] [id number] 0 Phone: () - 12/24 CMP Potas sium mmol/L 3.5 5.1 4.3 FINAL Oziel angelo [facility], [address] [facility] [id number] 0 Phone: () - 12/24 CMP Sodiu m mmol/L 136.0 145.0 139 FINAL Oziel angelo [facility], [address] [facility] [id number] 0 Phone: () - 12/24 CMP Bilir ubin, total mg/dL 0.3 1.2 0.2 Low FINAL Oziel angelo [facility], [address] [place] [id number] 0 Phone: () - 12/24 CMP Total prote in g/dL 5.7 8.2 7.1 FINAL Oziel angelo [facility], [address] [facility] [id number] 0 Phone: () - 12/24 CBC w/ auto diff WBC K/uL 3.0 8.9 5.3 FINAL Oziel angelo [facility] - [place], [address] [place] [facility] [place] [phone] 0 Phone: () - 12/24 CBC w/ auto diff HGB g/dL 11.3 15.2 12.5 FINAL Oziel angelo [facility] - [place], [address] [place] [facility] [place] [phone] 0 Phone: () - 12/24 CBC w/ auto diff PLT K/uL 113.0 364.0 212 FINAL Oziel angelo [facility] - [place], [address] [place] [id number] 0 Phone: () - 12/24 CBC w/ auto diff Dave # (ANC) K/uL 1.6 6.6 4.7 FINAL Oziel angelo [facility] - [place], [address] [place] [id number] 0 Phone: () - 12/24 CBC w/ auto diff Dave % % 43.0 74.0 88.2 High FINAL Oziel [facility] [place] [facility] - [place], [address] [place] [id number] 0 Phone: () - 12/24 CBC w/ auto diff IG % % 0.0 0.5 0.8 High FINAL Oziel Tilleyot a [facility] - [place], [address] [place] [id number] 0 Phone: () - 12/24 CBC w/ auto diff IG # K/uL 0.0 0.03 0.04 High FINAL Oziel Tilleyot a [facility] - [place], [address] [place] [id number] 0 Phone: () - 12/24 CBC w/ auto diff LY % % 14.0 41.0 10.0 Low FINAL Oziel Tilleyot a [facility] - [place], [address] [place] [id number] 0 Phone: () - 12/24 CBC w/ auto diff MO % % 6.0 15.0 0.8 Low FINAL Oziel Tilleyot a [facility] - [place], [address] [place] [id number] 0 Phone: () - 12/24 CBC w/ auto diff EO % % 0.0 7.0 0.0 FINAL Oziel Tilleyot a [facility] - [place], [address] [place] [phone] 0 Phone: () - 12/24 CBC w/ auto diff BA % % 0.0 2.0 0.2 FINAL Oziel Tilleyot a [facility] - [place], [address] [place] [id number] 0 Phone: () - 12/24 CBC w/ auto diff LY # K/uL 0.4 3.6 0.5 FINAL Oziel Tilleyot a [facility] - [place], [address] [place] [id number] 0 Phone: () - 12/24 CBC w/ auto diff MO # K/uL 0.2 1.3 0.0 Low FINAL Oziel Tilleyot a [facility] - [place], [address] [place] [id number] 0 Phone: () - 12/24 CBC w/ auto diff EO # K/uL 0.0 0.6 0.0 FINAL Oziel Tilleyot a [facility] - [place], [address] [place] [id number] 0 Phone: () - 12/24 CBC w/ auto diff BA # K/uL 0.0 0.2 0.0 FINAL Oziel T[facility]leyot a [facility] - [place], [address] [place] [id number] 0 Phone: () - 12/24 CBC w/ auto diff NRBC % #/100W BC 0.0 0.2 0.0 FINAL Oziel Tilleyot a [facility] - [place], [address] [place] [id number] 0 Phone: () - 12/24 CBC w/ auto diff RBC M/uL 3.9 5.1 3.82 Low FINAL Oziel Tilleyot a [facility] - [place], [address] [place] [id number] 0 Phone: () - 12/24 CBC w/ auto diff HCT % 35.0 48.0 36.9 FINAL Oziel Tilleyot a [facility] - [place], [address] [place] [id number] 0 Phone: () - 12/24 CBC w/ auto diff MCV fL 80.0 104.0 96.6 FINAL Oziel Tilleyot a [facility] - [place], [address] [place] [phone] 0 Phone: () - 12/24 CBC w/ auto diff MCH pg 26.0 35.0 32.7 FINAL Oziel Tilleyot a [facility] - [place], [address] [place] [phone] 0 Phone: () - 12/24 CBC w/ auto diff MCHC g/dL 30.0 35.0 33.9 FINAL Oziel T[facility]leyot a [facility] - [place], [address] [place] [id number] 0 Phone: () - 12/24 CBC w/ auto diff MPV fL 9.5 13.4 9.6 FINAL Oziel T[facility]leyot a [facility] - [place], [address] [place] [id number] 0 Phone: () - 12/24 CBC w/ auto diff RDW % 11.4 16.1 12.90 FINAL Oziel Tilleyot a [facility] - [place], [address] [place] [phone] 0 Phone: () - 01/02 CBC w/ auto diff WBC K/uL 3.0 8.9 4.4 FINAL Lia Tilleyot a [facility] - [place], [address] [place] [id number] 0 Phone: () - 01/02 CBC w/ auto diff HGB g/dL 11.3 15.2 11.7 FINAL Lia Tilleyot a [facility] - [place], [address] [place] [id number] 0 Phone: () - 01/02 CBC w/ auto diff PLT K/uL 113.0 364.0 209 FINAL Lia Tilleyot a [facility] - [place], [address] [place] [id number] 0 Phone: () - 01/02 CBC w/ auto diff Dave # (ANC) K/uL 1.6 6.6 4.0 FINAL Lia Tilleyot a [facility] - [place], [address] [place] [phone] 0 Phone: () - 01/02 CBC w/ auto diff Dave % % 43.0 74.0 91.7 High FINAL Lia Tilleyot a [facility] - [place], [address] [place] [phone] 0 Phone: () - 01/02 CBC w/ auto diff IG % % 0.0 0.5 0.7 High FINAL Lia Tilleyot a [facility] - [place], [address] [place] [id number] 0 Phone: () - 01/02 CBC w/ auto diff IG # K/uL 0.0 0.03 0.03 FINAL Lia Tilleyot a [facility] - [place], [address] [place] [id number] 0 Phone: () - 01/02 CBC w/ auto diff LY % % 14.0 41.0 6.7 Low FINAL Lia T[facility]leyot a [facility] - [place], [address] [place] [id number] 0 Phone: () - 01/02 CBC w/ auto diff MO % % 6.0 15.0 0.7 Low FINAL Lia Tilleyot a [facility] - [place], [address] [place] [id number] 0 Phone: () - 01/02 CBC w/ auto diff EO % % 0.0 7.0 0.0 FINAL Lia Tilleyot a [facility] - [place], [address] [place] [id number] 0 Phone: () - 01/02 CBC w/ auto diff BA % % 0.0 2.0 0.2 FINAL Lia Tilleyot a [facility] - [place], [address] [place] [id number] 0 Phone: () - 01/02 CBC w/ auto diff LY # K/uL 0.4 3.6 0.3 Low FINAL Lia Tilleyot a [facility] - [place], [address] [place] [id number] 0 Phone: () - 01/02 CBC w/ auto diff MO # K/uL 0.2 1.3 0.0 Low FINAL Lia T[facility]leyot a [facility] - [place], [address] [place] [id number] 0 Phone: () - 01/02 CBC w/ auto diff EO # K/uL 0.0 0.6 0.0 FINAL Lia Tolbert a [facility] - [place], [address] [facility] [address] [place] [id number] 0 Phone: () - 01/02 CBC w/ auto diff BA # K/uL 0.0 0.2 0.0 FINAL Lia Tolbert a [facility] - [place], [address] [facility] [address] [place] [id number] 0 Phone: () - 01/02 CBC w/ auto diff NRBC % #/100W BC 0.0 0.2 0.0 FINAL Lia Tolbert a [facility] - [place], [address] [facility] [address] [place] [id number] 0 Phone: () - 01/02 CBC w/ auto diff RBC M/uL 3.9 5.1 3.56 Low FINAL Lia angelo On[facility] - [place], [address] [facility] [address] [place] [id number] 0 Phone: () - 01/02 CBC w/ auto diff HCT % 35.0 48.0 34.2 Low FINAL Lia Tolbert a [facility] - [place], [address] [facility] [address] [place] [id number] 0 Phone: () - 01/02 CBC w/ auto diff MCV fL 80.0 104.0 96.1 FINAL Lia Tolbert a [facility] - [place], [address] [facility] [address] [place] [phone] 0 Phone: () - 01/02 CBC w/ auto diff MCH pg 26.0 35.0 32.9 FINAL Lia Tolbert a [facility] - [place], [address] [facility] [facility] [address] [place] [id number] 0 Phone: () - 01/02 CBC w/ auto diff MCHC g/dL 30.0 35.0 34.2 FINAL Lia Tilleyot a [facility] - [place], [address] [facility] [address] [place] [id number] 0 Phone: () - 01/02 CBC w/ auto diff MPV fL 9.5 13.4 9.5 FINAL Lia angelo [facility] - [place], [address] [facility] [address] [place] [id number] 0 Phone: () - 01/02 CBC w/ auto diff RDW % 11.4 16.1 12.80 FINAL Lia angelo [facility] - [place], [address] [facility] [address] [place] [id number] 0 Phone: () - 01/02 iSTAT creat inine panel Creat inine , iSTAT mg/dl 0.6 1.3 0.8 FINAL Lia angelo [facility] - [place], [address] [facility] [address] [place] [id number] 0 Phone: () - 01/02 iSTAT creat inine panel GFR estim ate ml/min /1.73m ^2 73.7 GFR is calculate d using the CKD-EPI equation. FINAL Lia angelo [facility] - [place], [address] [facility] [address] [place] [id number] 0 Phone: () - 01/02 CMP Album in g/dL 3.2 5.2 4.2 FINAL Lia angelo [facility], [address] [facility] [address] [place] [address] [facility] [id number] 0 Phone: () - 01/02 CMP Alkal ine phosp hatas e U/L 46.0 116.0 58 FINAL Lia angelo On[facility], [address] [facility] [id number] 0 Phone: () - 01/02 CMP ALT/S GPT U/L 7.0 40.0 13 FINAL Lia angelo [facility], [address] [facility] [id number] 0 Phone: () - 01/02 CMP AST/S GOT U/L 13.0 40.0 20 FINAL [place] [address] [id number] 0 Phone: () - 01/02 CMP BUN mg/dL 9.0 23.0 17 FINAL [place] [address] [id number] 0 Phone: () - 01/02 CMP Calci um mg/dL 8.7 10.4 10.7 High FINAL [place] [address] [id number] 0 Phone: () - 01/02 CMP Chlor vipin mmol/L 96.0 114.0 109 FINAL [place] [address] [id number] 0 Phone: () - 01/02 CMP CO2 [...] of the 96 hour stability window. FINAL [place] [address] [id number] 0 Phone: () - 01/02 CMP Creat inine mg/dL 0.5 1.2 0.76 FINAL [place] [address] [id number] 0 Phone: () - 01/02 CMP GFR estim ate ml/min /1.73m ^2 78.4 GFR is calculate d using the CKD-EPI equation. FINAL [place] [address] [phone] 0 Phone: () - 01/02 CMP Gluco se mg/dL 73.0 126.0 122 FINAL [place] [address] [id number] 0 Phone: () - 01/02 CMP Potas sium mmol/L 3.5 5.1 4.4 FINAL Lia Tilley a On[facility], [address] [place] [id number] 0 Phone: () - 01/02 CMP Sodiu m mmol/L 136.0 145.0 140 FINAL Lia angelo On[facility], [address] [place] [id number] 0 Phone: () - 01/02 CMP Bilir ubin, total mg/dL 0.3 1.2 0.3 FINAL Lia angelo [facility], [address] [place] [id number] 0 Phone: () - 01/02 CMP Total prote in g/dL 5.7 8.2 6.8 FINAL Lia Tilley gi [facility], [address] [place] [id number] 0 Phone: () - 01/09 Smear revie w panel CBC Smear revie w comme nts Consist ent with reporte d results FINAL Lia angelo [facility] - [place], [address] [facility] [place] [id number] 0 Phone: () - 01/09 CBC w/ auto diff WBC K/uL 3.0 8.9 4.8 FINAL Lia angelo [facility] - [place], [address] [facility] [place] [id number] 0 Phone: () - 01/09 CBC w/ auto diff HGB g/dL 11.3 15.2 11.8 FINAL Lia Tolbert a [facility] - [place], [address] [place] [id number] 0 Phone: () - 01/09 CBC w/ auto diff PLT K/uL 113.0 364.0 165 FINAL Lia Tilley a [facility] - [place], [address] [place] [id number] 0 Phone: () - 01/09 CBC w/ auto diff Dave # (ANC) K/uL 1.6 6.6 4.4 FINAL Lia [place] [facility] - [place], [address] [place] [id number] 0 Phone: () - 01/09 CBC w/ auto diff Dave % % 43.0 74.0 91.5 High FINAL Lia Tilleyot a [facility] - [place], [address] [place] [id number] 0 Phone: () - 01/09 CBC w/ auto diff IG % % 0.0 0.5 1.5 High FINAL Lia T[facility]leyot a [facility] - [place], [address] [place] [id number] 0 Phone: () - 01/09 CBC w/ auto diff IG # K/uL 0.0 0.03 0.07 High FINAL Lia T[facility]ley[facility] a [facility] - [place], [address] [place] [id number] 0 Phone: () - 01/09 CBC w/ auto diff LY % % 14.0 41.0 5.5 Low FINAL Lia [facility]ley[facility] a [facility] - [place], [address] [place] [id number] 0 Phone: () - 01/09 CBC w/ auto diff MO % % 6.0 15.0 1.3 Low FINAL Lia T[facility]ley[facility] a [facility] - [place], [address] [place] [id number] 0 Phone: () - 01/09 CBC w/ auto diff EO % % 0.0 7.0 0.0 FINAL Lia Tilleyot a [facility] - [place], [address] [place] [id number] 0 Phone: () - 01/09 CBC w/ auto diff BA % % 0.0 2.0 0.2 FINAL Lia T[facility]leyot a [facility] - [place], [address] [place] [id number] 0 Phone: () - 01/09 CBC w/ auto diff LY # K/uL 0.4 3.6 0.3 Low FINAL Lia T[facility]ley[facility] a [facility] - [place], [address] [place] [id number] 0 Phone: () - 01/09 CBC w/ auto diff MO # K/uL 0.2 1.3 0.1 Low FINAL Lia T[facility]ley[facility] a [facility] - [place], [address] [place] [id number] 0 Phone: () - 01/09 CBC w/ auto diff EO # K/uL 0.0 0.6 0.0 FINAL Lia T[facility]ley[facility] a [facility] - [place], [address] [place] [id number] 0 Phone: () - 01/09 CBC w/ auto diff BA # K/uL 0.0 0.2 0.0 FINAL Lia [facility] a [facility] - [place], [address] [place] [id number] 0 Phone: () - 01/09 CBC w/ auto diff NRBC % #/100W BC 0.0 0.2 0.0 FINAL Lia T[facility]ley[facility] a [facility] - [place], [address] [place] [id number] 0 Phone: () - 01/09 CBC w/ auto diff RBC M/uL 3.9 5.1 3.56 Low FINAL Lia T[facility]ley[facility] a [facility] - [place], [address] [place] [id number] 0 Phone: () - 01/09 CBC w/ auto diff HCT % 35.0 48.0 34.2 Low FINAL Lia T[facility]ley[facility] a [facility] - [place], [address] [place] [id number] 0 Phone: () - 01/09 CBC w/ auto diff MCV fL 80.0 104.0 96.1 FINAL Lia Tilleyot a [facility] - [place], [address] [place] [id number] 0 Phone: () - 01/09 CBC w/ auto diff MCH pg 26.0 35.0 33.1 FINAL Lia angelo [facility] - [place], [address] [facility] [address] [place] [id number] 0 Phone: () - 01/09 CBC w/ auto diff MCHC g/dL 30.0 35.0 34.5 FINAL Lia angelo [facility] - [place], [address] [facility] [address] [place] [id number] 0 Phone: () - 01/09 CBC w/ auto diff MPV fL 9.5 13.4 9.4 Low FINAL Lia angelo [facility] - [place], [address] [place] [address] [address] [place] [id number] 0 Phone: () - 01/09 CBC w/ auto diff RDW % 11.4 16.1 12.90 FINAL Lia angelo [facility] - [place], [address] [facility] [address] [place] [id number] 0 Phone: () - 01/09 CBC w/ auto diff Auto CBC comme nts Slide review to follow FINAL Lia angelo [facility] - [place], [address] [place] [address] [address] [place] [id number] 0 Phone: () - 01/09 CMP Album in g/dL 3.2 5.2 4.2 [facility], [address] [place] [address] [id number] 0 Phone: () - 01/09 CMP Alkal ine phosp hatas e U/L 46.0 116.0 65 [facility], [address] [place] [id number] 0 Phone: () - 01/09 CMP ALT/S GPT U/L 7.0 40.0 16 [facility], [address] [place] [id number] 0 Phone: () - 01/09 CMP AST/S GOT U/L 13.0 40.0 19 FINAL [place] [address] [id number] 0 Phone: () - 01/09 CMP BUN mg/dL 9.0 23.0 19 FINAL [place] [address] [id number] 0 Phone: () - 01/09 CMP Calci um mg/dL 8.7 10.4 10.4 FINAL [place] [address] [id number] 0 Phone: () - 01/09 CMP Chlor vipin mmol/L 96.0 114.0 106 FINAL [place] [address] [id number] 0 Phone: () - 01/09 CMP CO2 [...] of the 96 hour stability window. FINAL [place] [address] [id number] 0 Phone: () - 01/09 CMP Creat inine mg/dL 0.5 1.2 0.78 FINAL [place] [address] [id number] 0 Phone: () - 01/09 CMP GFR estim ate ml/min /1.73m ^2 76.0 GFR is calculate d using the CKD-EPI equation. FINAL [place] [address] [id number] 0 Phone: () - 01/09 CMP Gluco se mg/dL 73.0 126.0 129 High FINAL [place] [address] [id number] 0 Phone: () - 01/09 CMP Potas sium mmol/L 3.5 5.1 4.5 FINAL Lia angelo [facility], [address] [facility] [id number] 0 Phone: () - 01/09 CMP Sodiu m mmol/L 136.0 145.0 139 FINAL Lia angelo [facility], [address] [place] [address] [id number] 0 Phone: () - 01/09 CMP Bilir ubin, total mg/dL 0.3 1.2 0.4 FINAL Lia angelo [facility], [address] [facility] [id number] 0 Phone: () - 01/09 CMP Total prote in g/dL 5.7 8.2 6.7 FINAL Lia angelo [facility], [address] [place] [address] [id number] 0 Phone: () - 01/09 iSTAT creat inine panel Creat inine , iSTAT mg/dl 0.6 1.3 0.7 FINAL Lia angelo [facility] - [place] , [address] [place] [address] [place] [address] [id number] 0 Phone: () - 01/09 iSTAT creat inine panel GFR estim ate ml/min /1.73m ^2 86.6 GFR is calculate d using the CKD-EPI equation. FINAL iLa angelo [facility] - [place] , [address] [facility] [address] [place] [address] [phone] 0 Phone: () - 01/16 iSTAT creat inine panel Creat inine , iSTAT mg/dl 0.6 1.3 0.8 FINAL Lia angelo [facility] - [place] , [address] [place], [place] [address] [id number] 0 Phone: () - 01/16 iSTAT creat inine panel GFR estim ate ml/min /1.73m ^2 73.7 GFR is calculate d using the CKD-EPI equation. FINAL Lia [place] [facility] [place], [address] [place] [id number] 0 Phone: () - 01/16 Smear revie w panel CBC Smear revie w comme nts Consist ent with reporte d results FINAL Lia T[facility]leyot a [facility] - [place], [address] [place] [id number] 0 Phone: () - 01/16 CBC w/ auto diff LY % % 14.0 41.0 4.0 Low FINAL Lia T[facility]ley[facility] a [facility] - [place], [address] [place] [id number] 0 Phone: () - 01/16 CBC w/ auto diff MO % % 6.0 15.0 1.6 Low FINAL Lia T[facility] a [facility] - [place], [address] [place] [id number] 0 Phone: () - 01/16 CBC w/ auto diff EO % % 0.0 7.0 0.0 FINAL Lia [facility] - [place], [address] [place] [id number] 0 Phone: () - 01/16 CBC w/ auto diff BA % % 0.0 2.0 0.2 FINAL Lia [facility] a [facility] - [place], [address] [place] [id number] 0 Phone: () - 01/16 CBC w/ auto diff LY # K/uL 0.4 3.6 0.2 Low FINAL Lia T[facility] a [facility] - [place], [address] [place] [id number] 0 Phone: () - 01/16 CBC w/ auto diff MO # K/uL 0.2 1.3 0.1 Low FINAL Lia [facility] a [facility] - [place], [address] [place] [id number] 0 Phone: () - 01/16 CBC w/ auto diff EO # K/uL 0.0 0.6 0.0 FINAL Lia [facility] - [place], [address] [place] [id number] 0 Phone: () - 01/16 CBC w/ auto diff BA # K/uL 0.0 0.2 0.0 FINAL Lia Tolbert a [facility] - [place], [address] [place] [id number] 0 Phone: () - 01/16 CBC w/ auto diff NRBC % #/100W BC 0.0 0.2 0.0 FINAL Lia Tilleyot a [facility] - [place], [address] [place] [id number] 0 Phone: () - 01/16 CBC w/ auto diff RBC M/uL 3.9 5.1 3.30 Low FINAL Lia T[facility]leyot a [facility] - [place], [address] [place] [id number] 0 Phone: () - 01/16 CBC w/ auto diff HCT % 35.0 48.0 32.8 Low FINAL Lia angelo [facility] - [place], [address] [place] [id number] 0 Phone: () - 01/16 CBC w/ auto diff MCV fL 80.0 104.0 99.4 FINAL Lia T[facility]leyot a [facility] - [place], [address] [place] [id number] 0 Phone: () - 01/16 CBC w/ auto diff MCH pg 26.0 35.0 33.3 FINAL Lia [facility] - [place], [address] [place] [id number] 0 Phone: () - 01/16 CBC w/ auto diff MCHC g/dL 30.0 35.0 33.5 FINAL Lia T[facility]ley[facility] - [place], [address] [place] [id number] 0 Phone: () - 01/16 CBC w/ auto diff MPV fL 9.5 13.4 9.2 Low FINAL Lia T[facility]leyot a [facility] - [place], [address] [facility] [address] [place] [id number] 0 Phone: () - 01/16 CBC w/ auto diff RDW % 11.4 16.1 13.90 FINAL [facility] [place], [address] [facility] [address] [place] [id number] 0 Phone: () - 01/16 CBC w/ auto diff Auto CBC comme nts Slide review to follow FINAL [facility] [place], [address] [facility] [address] [place] [id number] 0 Phone: () - 01/16 CBC w/ auto diff HGB g/dL 11.3 15.2 11.0 Low FINAL [facility] [place], [address] [facility] [address] [place] [id number] 0 Phone: () - 01/16 CBC w/ auto diff PLT K/uL 113.0 364.0 144 FINAL [facility] [place], [address] [facility] [address] [address] [place] [id number] 0 Phone: () - 01/16 CBC w/ auto diff Dave # (ANC) K/uL 1.6 6.6 4.2 FINAL Lia [facility] - [place], [address] [facility] [address] [place] [id number] 0 Phone: () - 01/16 CBC w/ auto diff Dave % % 43.0 74.0 92.4 High FINAL Lia [facility] - [place], [address] [place] [id number] 0 Phone: () - 01/16 CBC w/ auto diff IG % % 0.0 0.5 1.8 High FINAL Lai [facility] - [place], [address] [place] [id number] 0 Phone: () - 01/16 CBC w/ auto diff IG # K/uL 0.0 0.03 0.08 High FINAL Lia angelo [facility], [address] [facility] [address] [facility] [place] [id number] 0 Phone: () - 01/16 CBC w/ auto diff WBC K/uL 3.0 8.9 4.5 FINAL Lia angelo [facility] [place], [address] [facility] [address] [facility] [place] [id number] 0 Phone: () - 01/16 CMP Album in g/dL 3.2 5.2 3.9 FINAL Lia Delgado [place] [address] [place] [address] [id number] 0 Phone: () - 01/16 CMP Alkal ine phosp hatas e U/L 46.0 116.0 62 FINAL Lia Delgado [place] [address] [address] [facility] [address] [place] [address] [place] [address] [id number] 0 Phone: () - 01/16 CMP ALT/S GPT U/L 7.0 40.0 19 FINAL [place] [address] [address] [facility] [address] [place] [address] [id number] 0 Phone: () - 01/16 CMP AST/S GOT U/L 13.0 40.0 18 FINAL [place] [address] [place] [address] [id number] 0 Phone: () - 01/16 CMP BUN mg/dL 9.0 23.0 21 FINAL [place] [address] [place] [address] [id number] 0 Phone: () - 01/16 CMP Calci um mg/dL 8.7 10.4 10.3 FINAL [place] [address] [place] [address] [id number] 0 Phone: () - 01/16 CMP Chlor vipin mmol/L 96.0 114.0 108 FINAL [place] [address] [id number] 0 Phone: () - 01/16 CMP CO2 [...] 96 hour stability window. FINAL Lia Delgado [address] [id number] 0 Phone: () - 01/16 CMP Creat inine mg/dL 0.5 1.2 0.78 FINAL Lia [address] [id number] 0 Phone: () - 01/16 CMP GFR estim ate ml/min /1.73m ^2 76.0 GFR is calculate d using the CKD-EPI equation. FINAL Lia [address] [id number] 0 Phone: () - 01/16 CMP Gluco se mg/dL 73.0 126.0 138 High FINAL Lia [place] [address] [id number] 0 Phone: () - 01/16 CMP Potas sium mmol/L 3.5 5.1 4.2 FINAL Lia [address] [id number] 0 Phone: () - 01/16 CMP Sodiu m mmol/L 136.0 145.0 [address] [id number] 0 Phone: () - 01/16 CMP Bilir ubin, total mg/dL 0.3 1.2 0.3 FINAL Lia [place] [address] [id number] 0 Phone: () - 01/16 CMP Total prote in g/dL 5.7 8.2 6.3 FINAL Lia Tolbert a [facility] - [place], [address] [place] [id number] 0 Phone: () - 01/23 Smear revie w panel CBC Smear revie w comme nts Consist ent with reporte d results FINAL Lia angelo [facility] - [place], [address] [place] [id number] 0 Phone: () - 01/23 iSTAT creat inine panel Creat inine , iSTAT mg/dl 0.6 1.3 0.8 FINAL Lia angelo [facility] - [place], [address] [facility] [address] [place] [id number] 0 Phone: () - 01/23 iSTAT creat inine panel GFR estim ate ml/min /1.73m ^2 73.7 GFR is calculate d using the CKD-EPI equation. FINAL Lia angelo [facility] - [place], [address] [place] [id number] 0 Phone: () - 01/23 CBC w/ auto diff WBC K/uL 3.0 8.9 2.4 Low FINAL Lia angelo [facility] - [place], [address] [place] [id number] 0 Phone: () - 01/23 CBC w/ auto diff HGB g/dL 11.3 15.2 10.4 Low FINAL Lia Tolbert a [facility] - [place], [address] [place] [id number] 0 Phone: () - 01/23 CBC w/ auto diff PLT K/uL 113.0 364.0 109 Low FINAL Lia angelo [facility] - [place], [address] [place] [id number] 0 Phone: () - 01/23 CBC w/ auto diff Dave # (ANC) K/uL 1.6 6.6 2.2 FINAL Lia Danny [place] [facility] - [place], [address] [place] [id number] 0 Phone: () - 01/23 CBC w/ auto diff Dave % % 43.0 74.0 90.0 High FINAL Lia [facility] - [place], [address] [place] [id number] 0 Phone: () - 01/23 CBC w/ auto diff IG % % 0.0 0.5 0.8 High FINAL Lia [facility] - [place], [address] [place] [id number] 0 Phone: () - 01/23 CBC w/ auto diff IG # K/uL 0.0 0.03 0.02 FINAL Lia [facility] - [place], [address] [place] [id number] 0 Phone: () - 01/23 CBC w/ auto diff LY % % 14.0 41.0 7.1 Low FINAL Lia [facility] - [place], [address] [place] [id number] 0 Phone: () - 01/23 CBC w/ auto diff MO % % 6.0 15.0 2.1 Low FINAL Lia [facility] - [place], [address] [place] [id number] 0 Phone: () - 01/23 CBC w/ auto diff EO % % 0.0 7.0 0.0 FINAL Lia [facility] - [place], [address] [place] [id number] 0 Phone: () - 01/23 CBC w/ auto diff BA % % 0.0 2.0 0.0 FINAL Lia [facility] - [place], [address] [place] [id number] 0 Phone: () - 01/23 CBC w/ auto diff LY # K/uL 0.4 3.6 0.2 Low FINAL Lia [facility] - [place], [address] [place] [id number] 0 Phone: () - 01/23 CBC w/ auto diff MO # K/uL 0.2 1.3 0.1 Low FINAL Lia [facility] - [place], [address] [place] [id number] 0 Phone: () - 01/23 CBC w/ auto diff EO # K/uL 0.0 0.6 0.0 FINAL Lia [facility] - [place], [address] [place] [id number] 0 Phone: () - 01/23 CBC w/ auto diff BA # K/uL 0.0 0.2 0.0 FINAL Lia [facility] - [place], [address] [place] [id number] 0 Phone: () - 01/23 CBC w/ auto diff NRBC % #/100W BC 0.0 0.2 0.0 FINAL Lia [facility] - [place], [address] [place] [id number] 0 Phone: () - 01/23 CBC w/ auto diff RBC M/uL 3.9 5.1 3.14 Low FINAL Lia [facility] - [place], [address] [place] [id number] 0 Phone: () - 01/23 CBC w/ auto diff HCT % 35.0 48.0 31.4 Low FINAL Lia [facility] - [place], [address] [place] [id number] 0 Phone: () - 01/23 CBC w/ auto diff MCV fL 80.0 104.0 100.0 FINAL Lia [facility] - [place], [address] [place] [id number] 0 Phone: () - 01/23 CBC w/ auto diff MCH pg 26.0 35.0 33.1 FINAL Lia [facility] - [place], [address] [facility] [address] [place] [id number] 0 Phone: () - 01/23 CBC w/ auto diff MCHC g/dL 30.0 35.0 33.1 FINAL Lia [facility] - [place], [address] [facility] [address] [place] [id number] 0 Phone: () - 01/23 CBC w/ auto diff MPV fL 9.5 13.4 8.7 Low FINAL Lia [facility] - [place], [address] [facility] [address] [place] [id number] 0 Phone: () - 01/23 CBC w/ auto diff RDW % 11.4 16.1 15.00 FINAL Lia [facility] - [place], [address] [facility] [address] [place] [id number] 0 Phone: () - 01/23 CBC w/ auto diff Auto CBC comme nts Slide review to follow FINAL Lia Tolbert a [facility] - [place], [address] [place] [address] [address] [place] [id number] 0 Phone: () - 01/23 CMP Album in g/dL 3.2 5.2 3.8 FINAL Lia Tilley a [facility], [address] [facility] [id number] 0 Phone: () - 01/23 CMP Alkal ine phosp hatas e U/L 46.0 116.0 61 FINAL Lia Tilley a [facility], [address] [place] [id number] 0 Phone: () - 01/23 CMP ALT/S GPT U/L 7.0 40.0 24 FINAL Lia Tilley a [facility], [address] [place] [id number] 0 Phone: () - 01/23 CMP AST/S GOT U/L 13.0 40.0 21 FINAL [place] [address] [id number] 0 Phone: () - 01/23 CMP BUN mg/dL 9.0 23.0 22 FINAL [facility] [address] [id number] 0 Phone: () - 01/23 CMP Calci um mg/dL 8.7 10.4 9.1 FINAL [place] [address] [id number] 0 Phone: () - 01/23 CMP Chlor vipin mmol/L 96.0 114.0 110 FINAL [place] [address] [id number] 0 Phone: () - 01/23 CMP CO2 [...] of the 96 hour stability window. FINAL [place] [address] [id number] 0 Phone: () - 01/23 CMP Creat inine mg/dL 0.5 1.2 0.74 FINAL [place] [address] [id number] 0 Phone: () - 01/23 CMP GFR estim ate ml/min /1.73m ^2 81.0 GFR is calculate d using the CKD-EPI equation. FINAL [place] [address] [id number] 0 Phone: () - 01/23 CMP Gluco se mg/dL 73.0 126.0 148 High FINAL [place] [address] [id number] 0 Phone: () - 01/23 CMP Potas sium mmol/L 3.5 5.1 4.4 FINAL [facility] [address] [place] [address] [id number] 0 Phone: () - 01/23 CMP Sodiu m mmol/L 136.0 145.0 141 FINAL [facility] [address] [place] [address] [id number] 0 Phone: () - 01/23 CMP Bilir ubin, total mg/dL 0.3 1.2 0.3 FINAL [facility] [address] [place] [address] [id number] 0 Phone: () - 01/23 CMP Total prote in g/dL 5.7 8.2 6.1 FINAL [place] [address] [place] [address] [id number] 0 Phone: () - 01/30 CMP Album in g/dL 3.2 5.2 4.1 FINAL [place] [address] [place] [address] [id number] 0 Phone: () - 01/30 CMP Alkal ine phosp hatas e U/L 46.0 116.0 63 FINAL [place] [address] [place] [address] [id number] 0 Phone: () - 01/30 CMP ALT/S GPT U/L 7.0 40.0 19 FINAL [place] [address] [place] [address] [id number] 0 Phone: () - 01/30 CMP AST/S GOT U/L 13.0 40.0 22 FINAL [place] [address] [place] [address] [id number] 0 Phone: () - 01/30 CMP BUN mg/dL 9.0 23.0 22 FINAL [place] [address] [place] [address] [id number] 0 Phone: () - 01/30 CMP Calci um mg/dL 8.7 10.4 9.8 FINAL [place] [address] [id number] 0 Phone: () - 01/30 CMP Chlor vipin mmol/L 96.0 114.0 111 FINAL [place] [address] [id number] 0 Phone: () - 01/30 CMP CO2 [...] of the 96 hour stability window. FINAL [place] [address] [id number] 0 Phone: () - 01/30 CMP Creat inine mg/dL 0.5 1.2 0.73 FINAL [place] [address] [id number] 0 Phone: () - 01/30 CMP GFR estim ate ml/min /1.73m ^2 82.3 GFR is calculate d using the CKD-EPI equation. FINAL [place] [address] [id number] 0 Phone: () - 01/30 CMP Gluco se mg/dL 73.0 126.0 122 FINAL [place] [address] [id number] 0 Phone: () - 01/30 CMP Potas sium mmol/L 3.5 5.1 4.8 [place] [address] [id number] 0 Phone: () - 01/30 CMP Sodiu m mmol/L 136.0 145.0 140 FINAL [place] [address] [address] [facility] [address] [place] [address] [id number] 0 Phone: () - 01/30 CMP Bilir ubin, total mg/dL 0.3 1.2 0.3 FINAL Lia Tilleyot a On[facility], [address] [facility] [id number] 0 Phone: () - 01/30 CMP Total prote in g/dL 5.7 8.2 6.7 FINAL Lia [facility] a [facility], [address] [facility] [id number] 0 Phone: () - 01/30 CBC w/ auto diff WBC K/uL 3.0 8.9 2.3 Low FINAL Lia [facility] - [place], [address] [place] [id number] 0 Phone: () - 01/30 CBC w/ auto diff HGB g/dL 11.3 15.2 11.0 Low FINAL Lia [facility] - [place], [address] [place] [id number] 0 Phone: () - 01/30 CBC w/ auto diff PLT K/uL 113.0 364.0 103 Low FINAL Lia [facility] - [place], [address] [place] [id number] 0 Phone: () - 01/30 CBC w/ auto diff Dave # (ANC) K/uL 1.6 6.6 2.1 FINAL Lia [facility] - [place], [address] [place] [id number] 0 Phone: () - 01/30 CBC w/ auto diff Dave % % 43.0 74.0 89.6 High FINAL Lia [facility] - [place], [address] [place] [id number] 0 Phone: () - 01/30 CBC w/ auto diff IG % % 0.0 0.5 0.9 High FINAL Lia [facility] - [place], [address] [place] [id number] 0 Phone: () - 01/30 CBC w/ auto diff IG # K/uL 0.0 0.03 0.02 FINAL L[facility] - [place], [address] [facility] [address] [place] [id number] 0 Phone: () - 01/30 CBC w/ auto diff LY % % 14.0 41.0 7.3 Low FINAL Lia [facility] - [place], [address] [facility] [address] [place] [id number] 0 Phone: () - 01/30 CBC w/ auto diff MO % % 6.0 15.0 2.2 Low FINAL Lia [facility] - [place], [address] [facility] [address] [place] [id number] 0 Phone: () - 01/30 CBC w/ auto diff EO % % 0.0 7.0 0.0 FINAL Lia [facility] - [place], [address] [facility] [address] [place] [id number] 0 Phone: () - 01/30 CBC w/ auto diff BA % % 0.0 2.0 0.0 FINAL Lia [facility] - [place], [address] [facility] [address] [place] [id number] 0 Phone: () - 01/30 CBC w/ auto diff LY # K/uL 0.4 3.6 0.2 Low FINAL Lia [facility] - [place], [address] [facility] [address] [place] [id number] 0 Phone: () - 01/30 CBC w/ auto diff MO # K/uL 0.2 1.3 0.1 Low FINAL Lia [facility] - [place], [address] [facility] [address] [place] [id number] 0 Phone: () - 01/30 CBC w/ auto diff EO # K/uL 0.0 0.6 0.0 FINAL Lia T[facility] a [facility] - [place], [address] [place] [id number] 0 Phone: () - 01/30 CBC w/ auto diff BA # K/uL 0.0 0.2 0.0 FINAL Lia T[facility] - [place], [address] [place] [id number] 0 Phone: () - 01/30 CBC w/ auto diff NRBC % #/100W BC 0.0 0.2 0.0 FINAL Lia [facility] - [place], [address] [place] [id number] 0 Phone: () - 01/30 CBC w/ auto diff RBC M/uL 3.9 5.1 3.23 Low FINAL Lia Tolbert a [facility] - [place], [address] [place] [id number] 0 Phone: () - 01/30 CBC w/ auto diff HCT % 35.0 48.0 32.4 Low FINAL Lia Tolbert a [facility] - [place], [address] [place] [id number] 0 Phone: () - 01/30 CBC w/ auto diff MCV fL 80.0 104.0 100.3 FINAL Lia Tolbert a [facility] - [place], [address] [place] [id number] 0 Phone: () - 01/30 CBC w/ auto diff MCH pg 26.0 35.0 34.1 FINAL Lia Tolbert a [facility] - [place], [address] [place] [id number] 0 Phone: () - 01/30 CBC w/ auto diff MCHC g/dL 30.0 35.0 34.0 FINAL Lia [facility] - [place], [address] [place] [id number] 0 Phone: () - 01/30 CBC w/ auto diff MPV fL 9.5 13.4 9.2 Low FINAL Lia angelo [facility] - [place], [address] [place] [id number] 0 Phone: () - 01/30 CBC w/ auto diff RDW % 11.4 16.1 14.80 FINAL Lia angelo [facility] - [place], [address] [place] [id number] 0 Phone: () - 01/30 CBC w/ auto diff Auto CBC comme nts Slide review to follow FINAL Lia angelo [facility] - [place], [address] [place] [id number] 0 Phone: () - 01/30 Smear revie w panel CBC Smear revie w comme nts Consist ent with reporte d results FINAL Lia angelo [facility] - [place], [address] [place] [id number] 0 Phone: () - 01/30 iSTAT creat inine panel Creat inine , iSTAT mg/dl 0.6 1.3 0.7 FINAL Lia angelo [facility] - [place], [address] [place] [id number] 0 Phone: () - 01/30 iSTAT creat inine panel GFR estim ate ml/min /1.73m ^2 86.6 GFR is calculate d using the CKD-EPI equation. FINAL Lia angelo [facility] - [place], [address] [facility] [address] [place] [id number] 0 Phone: () - 02/17 CMP Album in g/dL 3.2 5.2 3.9 FINAL Oziel angelo On[facility], [address] [facility] [address] [place] [address] [place] [id number] 0 Phone: () - 02/17 CMP Alkal ine phosp hatas e U/L 46.0 116.0 57 FINAL Oziel Tilleyot a [facility] - [place], [address] [place] [id number] 0 Phone: () - 02/17 CMP ALT/S GPT U/L 7.0 40.0 13 FINAL Oziel angelo [facility] [address] [facility] [address] [place] [address] [id number] 0 Phone: () - 02/17 CMP AST/S GOT U/L 13.0 40.0 19 FINAL Oziel angelo [facility] [address] [facility] [address] [place] [address] [id number] 0 Phone: () - 02/17 CMP BUN mg/dL 9.0 23.0 13 FINAL Oziel angelo [place] [address] [address] [facility] [address] [place] [address] [id number] 0 Phone: () - 02/17 CMP Calci um mg/dL 8.7 10.4 9.3 FINAL Oziel angelo [place] [address] [id number] 0 Phone: () - 02/17 CMP Chlor vipin mmol/L 96.0 114.0 111 FINAL Oziel angelo [place] [address] [id number] 0 Phone: () - 02/17 CMP CO2 [...] 96 hour stability window. FINAL Oziel angelo [place] [address] [id number] 0 Phone: () - 02/17 CMP Creat inine mg/dL 0.5 1.2 0.88 FINAL Oziel angelo [place] [address] [id number] 0 Phone: () - 02/17 CMP GFR estim ate ml/min /1.73m ^2 65.6 GFR is calculate d using the CKD-EPI equation. FINAL Oziel angelo [place] [address] [id number] 0 Phone: () - 02/17 CMP Gluco se mg/dL 73.0 126.0 63 Low FINAL Oziel angelo [facility], [address] [facility] [id number] 0 Phone: () - 02/17 CMP Potas sium mmol/L 3.5 5.1 4.2 FINAL Oziel angelo [facility], [address] [place] [address] [id number] 0 Phone: () - 02/17 CMP Sodiu m mmol/L 136.0 145.0 143 FINAL Oziel angelo [facility], [address] [facility] [id number] 0 Phone: () - 02/17 CMP Bilir ubin, total mg/dL 0.3 1.2 0.3 FINAL zOiel angelo [facility] [address] [facility] [address] [place] [address] [place] [address] [id number] 0 Phone: () - 02/17 CMP Total prote in g/dL 5.7 8.2 6.4 FINAL Oziel angelo [facility], [address] [facility] [address] [place] [address] [place] [address] [id number] 0 Phone: () - 02/17 TSH w/ refle x to free T4 TSH uIU/ml 0.32 5.0 3.46 Test performed at [facility] on a Mantex Immunoass ay Analyzer that uses an immunoenz ymometric sandwich assay for analysis. Patient testing should not be performed using multiple methodharley amador due to analytica l variation seen between test methodharley amador. FINAL Oziel angelo [facility], [address] [facility] [address] [place] [address] [facility] [id number] 0 Phone: () - 02/17 CBC w/ auto diff WBC K/uL 3.0 8.9 3.7 FINAL Oziel angelo [facility] - [place], [address] [facility] [address] [facility] [place] [id number] 0 Phone: () - 02/17 CBC w/ auto diff HGB g/dL 11.3 15.2 10.2 Low FINAL [facility], [address] [facility] [facility] [address] [place] [id number] 0 Phone: () - 02/17 CBC w/ auto diff PLT K/uL 113.0 364.0 213 FINAL Oziel angelo [facility] - [place], [address] [place] [id number] 0 Phone: () - 02/17 CBC w/ auto diff Dave # (ANC) K/uL 1.6 6.6 2.1 FINAL Oziel angelo [facility] - [place], [address] [place] [id number] 0 Phone: () - 02/17 CBC w/ auto diff Dave % % 43.0 74.0 57.4 FINAL Oziel angelo [facility] - [place], [address] [place] [id number] 0 Phone: () - 02/17 CBC w/ auto diff IG % % 0.0 0.5 0.8 High FINAL Oziel angelo [facility] - [place], [address] [facility] [facility] [address] [place] [id number] 0 Phone: () - 02/17 CBC w/ auto diff IG # K/uL 0.0 0.03 0.03 FINAL Oziel angelo [facility] - [place], [address] [place] [id number] 0 Phone: () - 02/17 CBC w/ auto diff LY % % 14.0 41.0 21.7 FINAL Oziel angelo [facility] - [place], [address] [place] [id number] 0 Phone: () - 02/17 CBC w/ auto diff MO % % 6.0 15.0 18.5 High FINAL Oziel angelo [facility] - [place], [address] [place] [id number] 0 Phone: () - 02/17 CBC w/ auto diff EO % % 0.0 7.0 1.1 FINAL Oziel angelo [facility] - [place], [address] [place] [id number] 0 Phone: () - 02/17 CBC w/ auto diff BA % % 0.0 2.0 0.5 FINAL Oziel angelo [facility] - [place], [address] [facility] [address] [place] [id number] 0 Phone: () - 02/17 CBC w/ auto diff LY # K/uL 0.4 3.6 0.8 FINAL Oziel T[facility]leyot a [facility] - [place], [address] [facility] [address] [place] [id number] 0 Phone: () - 02/17 CBC w/ auto diff MO # K/uL 0.2 1.3 0.7 FINAL Oziel Tolbert a [facility] - [place], [address] [facility] [address] [place] [id number] 0 Phone: () - 02/17 CBC w/ auto diff EO # K/uL 0.0 0.6 0.0 FINAL Oziel angelo [facility] - [place], [address] [facility] [address] [place] [id number] 0 Phone: () - 02/17 CBC w/ auto diff BA # K/uL 0.0 0.2 0.0 FINAL Oziel angelo [facility] - [place], [address] [facility] [address] [place] [id number] 0 Phone: () - 02/17 CBC w/ auto diff NRBC % #/100W BC 0.0 0.2 0.0 FINAL Oziel [facility] - [place], [address] [facility] [facility] [address] [place] [id number] 0 Phone: () - 02/17 CBC w/ auto diff RBC M/uL 3.9 5.1 2.96 Low FINAL Oziel angelo [facility] - [place], [address] [place] [id number] 0 Phone: () - 02/17 CBC w/ auto diff HCT % 35.0 48.0 30.3 Low FINAL Oziel [facility] - [place], [address] [place] [id number] 0 Phone: () - 02/17 CBC w/ auto diff MCV fL 80.0 104.0 102.4 FINAL Oziel [facility] - [place], [address] [place] [id number] 0 Phone: () - 02/17 CBC w/ auto diff MCH pg 26.0 35.0 34.5 FINAL Oziel [facility] - [place], [address] [place] [id number] 0 Phone: () - 02/17 CBC w/ auto diff MCHC g/dL 30.0 35.0 33.7 FINAL Oziel [facility] - [place], [address] [place] [id number] 0 Phone: () - 02/17 CBC w/ auto diff MPV fL 9.5 13.4 8.5 Low FINAL Oziel Tolbert a [facility] - [place], [address] [place] [id number] 0 Phone: () - 02/17 CBC w/ auto diff RDW % 11.4 16.1 17.40 High FINAL Oziel angelo [facility] - [place], [address] [place] [id number] 0 Phone: () - 03/17 CBC w/ auto diff WBC K/uL 3.0 8.9 4.5 FINAL Oziel [facility] - [place], [address] [place] [id number] 0 Phone: () - 03/17 CBC w/ auto diff HGB g/dL 11.3 15.2 11.6 FINAL Oziel Tilleyot gi [facility] - [place], [address] [place] [id number] 0 Phone: () - 03/17 CBC w/ auto diff PLT K/uL 113.0 364.0 213 FINAL Oziel [facility] - [place], [address] [place] [id number] 0 Phone: () - 03/17 CBC w/ auto diff Dave # (ANC) K/uL 1.6 6.6 2.6 FINAL [facility] [place], [address] [place] [phone] Phone: () - 03/17 CBC w/ auto diff Dave % % 43.0 74.0 57.9 FINAL [facility] [place], [address] [place] [phone] Phone: () - 03/17 CBC w/ auto diff IG % % 0.0 0.5 0.4 FINAL [facility] [place], [address] [place] [phone] Phone: () - 03/17 CBC w/ auto diff IG # K/uL 0.0 0.03 0.02 FINAL [facility] [place], [address] [place] [id number] 0 Phone: () - 03/17 CBC w/ auto diff LY % % 14.0 41.0 22.1 FINAL [facility] [place], [address] [place] [id number] 0 Phone: () - 03/17 CBC w/ auto diff MO % % 6.0 15.0 12.9 FINAL [facility] [place], [address] [place] [id number] 0 Phone: () - 03/17 CBC w/ auto diff EO % % 0.0 7.0 5.8 FINAL [facility] [place], [address] [place] [id number] 0 Phone: () - 03/17 CBC w/ auto diff BA % % 0.0 2.0 0.9 FINAL [facility] [place], [address] [place] [id number] 0 Phone: () - 03/17 CBC w/ auto diff LY # K/uL 0.4 3.6 1.0 FINAL [facility] [place], [address] [place] [id number] 0 Phone: () - 03/17 CBC w/ auto diff MO # K/uL 0.2 1.3 0.6 FINAL [facility] [place], [address] [place] [id number] 0 Phone: () - 03/17 CBC w/ auto diff EO # K/uL 0.0 0.6 0.3 FINAL [facility] [place], [address] [place] [id number] 0 Phone: () - 03/17 CBC w/ auto diff BA # K/uL 0.0 0.2 0.0 FINAL [facility] [place], [address] [place] [id number] 0 Phone: () - 03/17 CBC w/ auto diff NRBC % #/100W BC 0.0 0.2 0.0 FINAL [facility] [place], [address] [place] [id number] 0 Phone: () - 03/17 CBC w/ auto diff RBC M/uL 3.9 5.1 3.26 Low FINAL [facility] [place], [address] [place] [id number] 0 Phone: () - 03/17 CBC w/ auto diff HCT % 35.0 48.0 34.1 Low FINAL [facility] [place], [address] [place] [id number] 0 Phone: () - 03/17 CBC w/ auto diff MCV fL 80.0 104.0 104.6 High FINAL [facility] [place], [address] [place] [id number] 0 Phone: () - 03/17 CBC w/ auto diff MCH pg 26.0 35.0 35.6 High FINAL [facility] [place], [address] [place] [id number] 0 Phone: () - 03/17 CBC w/ auto diff MCHC g/dL 30.0 35.0 34.0 FINAL [facility] [place], [address] [place] [id number] 0 Phone: () - 03/17 CBC w/ auto diff MPV fL 9.5 13.4 8.6 Low FINAL [facility] [place], [address] [place] [id number] 0 Phone: () - 03/17 CBC w/ auto diff RDW % 11.4 16.1 15.20 FINAL [facility] [place], [address] [place] [id number] 0 Phone: () - 03/17 CMP Album in g/dL 3.2 5.2 4.1 FINAL [facility], [address] [place] [id number] 0 Phone: () - 03/17 CMP Alkal ine phosp hatas e U/L 46.0 116.0 54 FINAL [facility] - [place], [address] [place] [id number] 0 Phone: () - 03/17 CMP ALT/S GPT U/L 7.0 40.0 12 FINAL [facility], [address] [place] [id number] 0 Phone: () - 03/17 CMP AST/S GOT U/L 13.0 40.0 20 FINAL [facility], [address] [place] [id number] 0 Phone: () - 03/17 CMP BUN mg/dL 9.0 23.0 20 FINAL [facility] [place] [address] [address] [facility] 100 [facility] [id number] 0 Phone: () - 03/17 CMP Calci um mg/dL 8.7 10.4 9.8 FINAL [facility] [address] [facility] [address] [place] [facility] 100 [facility] [id number] 0 Phone: () - 03/17 CMP Chlor vipin mmol/L 96.0 114.0 109 FINAL [facility] [address] [facility] [address] [place] [facility] 100 [facility] [id number] 0 Phone: () - 03/17 CMP CO2 [...] 96 hour stability window. FINAL [facility] angel[facility] [place] [address] [id number] 0 Phone: () - 03/17 CMP Creat inine mg/dL 0.5 1.2 0.90 FINAL [facility] [place] [address] [id number] 0 Phone: () - 03/17 CMP GFR estim ate ml/min /1.73m ^2 63.8 GFR is calculate d using the CKD-EPI equation. FINAL [facility] [place] [address] [address] [facility] [address] [place] [address] [id number] 0 Phone: () - 03/17 CMP Gluco se mg/dL 73.0 126.0 87 FINAL [facility] [place] [address] [address] [facility] [address] [place] [address] [id number] 0 Phone: () - 03/17 CMP Potas sium mmol/L 3.5 5.1 4.4 FINAL [facility] angelo [place] [address] [address] [facility] [address] [place] [address] [facility] [id number] 0 Phone: () - 03/17 CMP Sodiu m mmol/L 136.0 145.0 142 FINAL [facility] angel[facility], [address] [facility] [address] [place] [facility] 100 [facility] [id number] 0 Phone: () - 03/17 CMP Bilir ubin, total mg/dL 0.3 1.2 0.5 FINAL [facility], [address] [facility] [address] [place] [facility] 100 [facility] [id number] 0 Phone: () - 03/17 CMP Total prote in g/dL 5.7 8.2 6.7 FINAL [facility] [address] [id number] 0 Phone: () - 03/17 TSH w/ refle x to free T4 TSH uIU/ml 0.32 5.0 3.06 Test performed at [facility] on a Mantex Immunoass ay Analyzer that uses an immunoenz ymometric sandwich assay for analysis. Patient testing should not be performed using multiple methodolo ginaun due to analytica l variation seen between test methodharley amador. FINAL [facility] angel[facility], [address] [id number] 0 Phone: () - 04/14 CMP Album in g/dL 3.2 5.2 4.3 FINAL [facility] [address] [facility] [address] [place] [address] [id number] 0 Phone: () - 04/14 CMP Alkal ine phosp hatas e U/L 46.0 116.0 58 FINAL [facility], [address] [facility] [address] [place] [address] [id number] 0 Phone: () - 04/14 CMP ALT/S GPT U/L 7.0 40.0 10 FINAL [facility], [address] [facility] [address] [place] [facility] 100 [facility] [id number] 0 Phone: () - 04/14 CMP AST/S GOT U/L 13.0 40.0 21 FINAL [facility], [address] [facility] [address] [place] [facility] 100 [facility] [id number] 0 Phone: () - 04/14 CMP BUN mg/dL 9.0 23.0 16 FINAL [facility] angel[facility] [place] [address] [id number] 0 Phone: () - 04/14 CMP Calci um mg/dL 8.7 10.4 10.0 FINAL [facility] angel[facility] [place] [address] [id number] 0 Phone: () - 04/14 CMP Chlor vipin mmol/L 96.0 114.0 109 FINAL [facility] [place] [address] [id number] 0 Phone: () - 04/14 CMP CO2 [...] 96 hour stability window. FINAL [facility] [place] [address] [id number] 0 Phone: () - 04/14 CMP Creat inine mg/dL 0.5 1.2 0.88 FINAL [facility] [place] [address] [id number] 0 Phone: () - 04/14 CMP GFR estim ate ml/min /1.73m ^2 65.6 GFR is calculate d using the CKD-EPI equation. FINAL [facility] angel[facility] [place] [address] [id number] 0 Phone: () - 04/14 CMP Gluco se mg/dL 73.0 126.0 92 FINAL [facility] [place] [address] [id number] 0 Phone: () - 04/14 CMP Potas sium mmol/L 3.5 5.1 4.4 FINAL [facility] [place] [address] [place] [id number] 0 Phone: () - 04/14 CMP Sodiu m mmol/L 136.0 145.0 142 FINAL [facility], [address] [facility] [id number] 0 Phone: () - 04/14 CMP Bilir ubin, total mg/dL 0.3 1.2 0.5 FINAL [facility], [address] [facility] [id number] 0 Phone: () - 04/14 CMP Total prote in g/dL 5.7 8.2 6.9 FINAL [facility], [address] [facility] [id number] 0 Phone: () - 04/14 CBC w/ auto diff WBC K/uL 3.0 8.9 5.0 FINAL [facility] [place], [address] [facility] [id number] 0 Phone: () - 04/14 CBC w/ auto diff HGB g/dL 11.3 15.2 12.4 FINAL [facility] [place], [address] [place] [facility] [id number] 0 Phone: () - 04/14 CBC w/ auto diff PLT K/uL 113.0 364.0 202 FINAL [facility] [place], [address] [place] [id number] 0 Phone: () - 04/14 CBC w/ auto diff Dave # (ANC) K/uL 1.6 6.6 3.4 FINAL [facility] [place], [address] [place] [id number] 0 Phone: () - 04/14 CBC w/ auto diff Dave % % 43.0 74.0 67.0 FINAL [facility] [place], [address] [place] [id number] 0 Phone: () - 04/14 CBC w/ auto diff IG % % 0.0 0.5 0.2 FINAL [facility] [place], [address] [place] [id number] 0 Phone: () - 04/14 CBC w/ auto diff IG # K/uL 0.0 0.03 0.01 FINAL [facility] [place], [address] [place] [id number] 0 Phone: () - 04/14 CBC w/ auto diff LY % % 14.0 41.0 22.0 FINAL [facility] [place], [address] [place] [id number] 0 Phone: () - 04/14 CBC w/ auto diff MO % % 6.0 15.0 8.4 FINAL [facility] [place], [address] [place] [id number] 0 Phone: () - 04/14 CBC w/ auto diff EO % % 0.0 7.0 2.0 FINAL [facility] [place], [address] [place] [id number] 0 Phone: () - 04/14 CBC w/ auto diff BA % % 0.0 2.0 0.4 FINAL [facility] [place], [address] [place] [id number] 0 Phone: () - 04/14 CBC w/ auto diff LY # K/uL 0.4 3.6 1.1 FINAL [facility] [place], [address] [place] [id number] 0 Phone: () - 04/14 CBC w/ auto diff MO # K/uL 0.2 1.3 0.4 FINAL [facility] [place], [address] [place] [id number] 0 Phone: () - 04/14 CBC w/ auto diff EO # K/uL 0.0 0.6 0.1 FINAL [facility] [place], [address] [place] [id number] 0 Phone: () - 04/14 CBC w/ auto diff BA # K/uL 0.0 0.2 0.0 FINAL [facility] [place], [address] [place] [id number] 0 Phone: () - 04/14 CBC w/ auto diff NRBC % #/100W BC 0.0 0.2 0.0 FINAL [facility] [place], [address] [place] [id number] 0 Phone: () - 04/14 CBC w/ auto diff RBC M/uL 3.9 5.1 3.58 Low FINAL [facility] [place], [address] [place] [id number] 0 Phone: () - 04/14 CBC w/ auto diff HCT % 35.0 48.0 36.8 FINAL [facility] [place], [address] [place] [id number] 0 Phone: () - 04/14 CBC w/ auto diff MCV fL 80.0 104.0 102.8 FINAL [facility] [place], [address] [place] [id number] 0 Phone: () - 04/14 CBC w/ auto diff MCH pg 26.0 35.0 34.6 FINAL [facility] [place], [address] [place] [id number] 0 Phone: () - 04/14 CBC w/ auto diff MCHC g/dL 30.0 35.0 33.7 FINAL [facility] [place], [address] [place] [id number] 0 Phone: () - 04/14 CBC w/ auto diff MPV fL 9.5 13.4 9.4 Low FINAL [facility] [place], [address] [facility] [address] [place] [id number] 0 Phone: () - 04/14 CBC w/ auto diff RDW % 11.4 16.1 12.10 FINAL [facility] [place], [address] [place] [address] d [address] [place] [id number] 0 Phone: () - 04/14 TSH w/ refle x to free T4 TSH uIU/ml 0.32 5.0 0.79 Test performed at [facility] on a Mantex Immunoass ay Analyzer that uses an immunoenz ymometric sandwich assay for analysis. Patient testing should not be performed using multiple methodolo ginaun due to analytica l variation seen between test methodharley amador. 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 d 04/30 UA Micro scopi c WBC (ua) 0.0 2.0 21-50 Abnor mal FINAL [facility] [place], [address] [place] [address] d [address] [place] [id number] 0 Phone: () - 04/30 UA Micro scopi c RBC (ua) 0.0 2.0 3-5 Abnor mal FINAL [facility] [place], [address] [facility] [address] [place] [id number] 0 Phone: () - 04/30 UA Micro scopi c Epith elial cells (ua) Moderat e 6-10 Abnor mal FINAL [facility] [place], [address] [place], [place] [address]et [facility] [address] [place] [id number] 0 Phone: () - 04/30 UA Micro scopi c Bacte aniya (ua) Few Abnor mal FINAL [facility] [place], [facility] [address] [place] [id number] 0 Phone: () - 04/30 UA Micro scopi c Mucus (ua) Negativ e FINAL [facility] [place], [address] [place] [id number] 0 Phone: () - 04/30 UA Micro scopi c Casts , urine None FINAL [facility] [place], [address] [place] [id number] 0 Phone: () - 04/30 UA Micro scopi c Cryst als (ua) None FINAL [facility] [place], [address] [place] [id number] 0 Phone: () - 04/30 UA Micro scopi c UA comme nt 1 Micro Positiv e-Cultu re Ordered Microsc opic perform ed on un-spun urine FINAL [facility] [place], [address] [place] [id number] 0 Phone: () - 04/30 Color (ua) Yellow FINAL [facility] [place], [address] [place] [id number] 0 Phone: () - 04/30 Appea serena (ua) Cloudy Abnor mal FINAL [facility] [place], [address] [place] [id number] 0 Phone: () - 04/30 Gluco se (ua), qual Negativ e FINAL [facility] [place], [address] [place] [id number] 0 Phone: () - 04/30 Bilir ubin (ua) Negativ e FINAL [facility] [place], [address] [place] [id number] 0 Phone: () - 04/30 Urina lysis , aceto ne or keton e rodriguez s measu remen t Negativ e FINAL [facility] [place], [address] [place] [id number] 0 Phone: () - 04/30 Speci fic gravi ty (ua) 1.005 1.02 1.020 FINAL [facility] [place], [address] [place] [id number] 0 Phone: () - 04/30 Blood (ua) 3+-Larg e Abnor mal FINAL [facility] [place], [address] [place] [id number] 0 Phone: () - 04/30 pH (ua) 5.0 8.0 6.0 FINAL [facility] - [place], [address] [place] [id number] 0 Phone: () - 04/30 Prote in (ua) 1+ Abnor mal FINAL [facility] [place], [address] [place] [id number] 0 Phone: () - 04/30 Urobi linog en (ua) 0.2 1.0 0.2 FINAL [facility] [place], [address] [place] [id number] 0 Phone: () - 04/30 Nitri te (ua) Negativ e FINAL [facility] [place], [address] [place] [id number] 0 Phone: () - 04/30 Leuko cyte peter ase (ua), qual 2+-Mode rate Abnor mal FINAL [facility] [place], [address] [place] [id number] 0 Phone: () - 04/30 UA comme nt 1 Dipstic k Positiv e-Micro Ordered FINAL [facility] [place], [address] [place] [id number] 0 Phone: () - 04/30 Urine cultu re panel Final repor t, urine cultu re SEE RESULTS BELOW SOURCE: Urine VoidBacte aniya Identific ation in Isolate by Culture:5 0,000-100 ,000 CFU/mL of multiple organisms , probable contamina ntsTest Performed by:[facility] [address] - [facility] [place], [place] [address]Ugga e [phone] FINAL [facility]iel Box 05/28 CBC w/ auto diff WBC K/uL 3.0 8.9 6.9 FINAL [facility] [place], [address] [place] [id number] 0 Phone: () - 05/28 CBC w/ auto diff HGB g/dL 11.3 15.2 13.0 FINAL [facility] [place], [address] [place] [id number] 0 Phone: () - 05/28 CBC w/ auto diff PLT K/uL 113.0 364.0 183 FINAL [facility] [place], [address] [place] [id number] 0 Phone: () - 05/28 CBC w/ auto diff Dave # (ANC) K/uL 1.6 6.6 6.0 FINAL [facility] [place], [address] [place] [id number] 0 Phone: () - 05/28 CBC w/ auto diff Dave % % 43.0 74.0 86.6 High FINAL [facility] [place], [address] [place] [id number] 0 Phone: () - 05/28 CBC w/ auto diff IG % % 0.0 0.5 0.4 FINAL [facility] [place], [address] [place] [id number] 0 Phone: () - 05/28 CBC w/ auto diff IG # K/uL 0.0 0.03 0.03 FINAL [facility] [place], [address] [place] [id number] 0 Phone: () - 05/28 CBC w/ auto diff LY % % 14.0 41.0 9.1 Low FINAL [facility] [place], [address] [place] [id number] 0 Phone: () - 05/28 CBC w/ auto diff MO % % 6.0 15.0 3.5 Low FINAL [facility] [place], [address] [place] [id number] 0 Phone: () - 05/28 CBC w/ auto diff EO % % 0.0 7.0 0.1 FINAL [facility] [place], [address] [place] [id number] 0 Phone: () - 05/28 CBC w/ auto diff BA % % 0.0 2.0 0.3 FINAL [facility] [place], [address] [place] [id number] 0 Phone: () - 05/28 CBC w/ auto diff LY # K/uL 0.4 3.6 0.6 FINAL [facility] [place], [address] [place] [id number] 0 Phone: () - 05/28 CBC w/ auto diff MO # K/uL 0.2 1.3 0.2 FINAL [facility] [place], [address] [place] [id number] 0 Phone: () - 05/28 CBC w/ auto diff EO # K/uL 0.0 0.6 0.0 FINAL [facility] - [place], [address] [place] [id number] 0 Phone: () - 05/28 CBC w/ auto diff BA # K/uL 0.0 0.2 0.0 FINAL [facility] - [place], [address] [place] [id number] 0 Phone: () - 05/28 CBC w/ auto diff NRBC % #/100W BC 0.0 0.2 0.0 FINAL [facility] - [place], [address] [place] [id number] 0 Phone: () - 05/28 CBC w/ auto diff RBC M/uL 3.9 5.1 3.83 Low FINAL [facility] - [place], [address] [place] [id number] 0 Phone: () - 05/28 CBC w/ auto diff HCT % 35.0 48.0 38.6 FINAL [facility] - [place], [address] [place] [id number] 0 Phone: () - 05/28 CBC w/ auto diff MCV fL 80.0 104.0 100.8 FINAL [facility] - [place], [address] [place] [id number] 0 Phone: () - 05/28 CBC w/ auto diff MCH pg 26.0 35.0 33.9 FINAL [facility] - [place], [address] [place] [id number] 0 Phone: () - 05/28 CBC w/ auto diff MCHC g/dL 30.0 35.0 33.7 FINAL [facility] - [place], [address] [place] [id number] 0 Phone: () - 05/28 CBC w/ auto diff MPV fL 9.5 13.4 9.0 Low FINAL [facility] - [place], [address] [place] [id number] 0 Phone: () - 05/28 CBC w/ auto diff RDW % 11.4 16.1 12.10 FINAL [facility] [place], [address] [facility] [place] [id number] 0 Phone: () - 05/28 CMP Alkal ine phosp hatas e U/L 46.0 116.0 45 Low FINAL Oziel angelo [facility], [address] [facility] [id number] 0 Phone: () - 05/28 CMP ALT/S GPT U/L 7.0 40.0 26 FINAL Oziel angelo [facility], [address] [facility] [id number] 0 Phone: () - 05/28 CMP AST/S GOT U/L 13.0 40.0 24 FINAL Oziel angelo [facility], [address] [facility] [id number] 0 Phone: () - 05/28 CMP BUN mg/dL 9.0 23.0 18 FINAL Oziel angelo [facility], [address] [facility] [id number] 0 Phone: () - 05/28 CMP Calci um mg/dL 8.7 10.4 9.8 FINAL Oziel angelo [facility], [address] [facility] [id number] 0 Phone: () - 05/28 CMP Chlor vipin mmol/L 96.0 114.0 108 FINAL Oziel angelo [facility], [address] [facility] [id number] 0 Phone: () - 05/28 CMP CO2 [...] 96 hour stability window. FINAL Oziel angelo [facility], [address] [id number] 0 Phone: () - 05/28 CMP Creat inine mg/dL 0.5 1.2 0.98 FINAL Oziel angelo [place] [address] [id number] 0 Phone: () - 05/28 CMP GFR estim ate ml/min /1.73m ^2 61.2 GFR is calculate d using the CKD-EPI equation. FINAL Oziel angelo [place] [address] [id number] 0 Phone: () - 05/28 CMP Gluco se mg/dL 73.0 126.0 111 FINAL Oziel angelo [place] [address] [id number] 0 Phone: () - 05/28 CMP Potas sium mmol/L 3.5 5.1 4.5 FINAL Oziel angelo [place] [address] [id number] 0 Phone: () - 05/28 CMP Sodiu m mmol/L 136.0 145.0 144 FINAL Oziel angelo [place] [address] [id number] 0 Phone: () - 05/28 CMP Bilir ubin, total mg/dL 0.3 1.2 0.4 FINAL Oziel angelo [place] [address] [id number] 0 Phone: () - 05/28 CMP Total prote in g/dL 5.7 8.2 6.3 FINAL Oziel angelo [place] [address] [id number] 0 Phone: () - 05/28 CMP Album in g/dL 3.2 5.2 4.2 FINAL Oziel angelo [place] [address] [id number] 0 Phone: () - 05/28 TSH w/ refle x to free T4 TSH uIU/ml 0.32 5.0 1.08 Test performed at [facility] on a Tosoh 2000 Immunoass ay Analyzer that uses an immunoenz ymometric sandwich assay for analysis. Patient testing should not be performed using multiple kathi amador due to analytica l variation seen between test methodharley amador. FINAL Oziel angelo [place] [address] [id number] 0 Phone: () - 05/28 Speci men Sourc e Oral FINAL Oziel Box 05/28 HSV 1, PCR Negativ e FINAL [facility] 05/28 HSV 2, PCR Negativ e --------- --------- -ADDITION AL INFORMATI ON------- --------- ---This test was developed and its performan ce character isticsdet ermined by [facility] in a manner consisten t with CLIArequi rements. This test has not been cleared or approved bythe U.S. Food and Drug Administr ation.Farrah t Performed by:[facility] [place] [id number] Director: Kenneth Alvarenga M.D. Ph.D.; CLIA# [id number] FINAL [facility] 05/30 [facility] [place] other lab See attache hughes 07/02 CMP Album in g/dL 3.2 5.2 4.2 FINAL Oziel angelo [place] [address] [id number] 0 Phone: () - 07/02 CMP Alkal ine phosp hatas e U/L 46.0 116.0 52 FINAL Oziel angelo [facility] [address] [facility] [place] [facility] 100 [facility] [id number] 0 Phone: () - 07/02 CMP ALT/S GPT U/L 7.0 40.0 18 FINAL Oziel angelo [place] [address] [address] [facility] [place] [facility] 100 [facility] [id number] 0 Phone: () - 07/02 CMP AST/S GOT U/L 13.0 40.0 22 FINAL Oziel angelo [facility] [address] [facility] [facility] [id number] 0 Phone: () - 07/02 CMP BUN mg/dL 9.0 23.0 23 FINAL Oziel angelo [place] [address] [id number] 0 Phone: () - 07/02 CMP Calci um mg/dL 8.7 10.4 9.9 FINAL Oziel angelo [facility] [address] [id number] 0 Phone: () - 07/02 CMP Chlor vipin mmol/L 96.0 114.0 110 FINAL Oziel angelo [place] [address] [address] [facility] 100 [facility] [id number] 0 Phone: () - 07/02 CMP CO2 [...] 96 hour stability window. FINAL Oziel angelo [place] [address] [id number] 0 Phone: () - 07/02 CMP Creat inine mg/dL 0.5 1.2 1.02 FINAL Oziel angelo [place] [address] [id number] 0 Phone: () - 07/02 CMP GFR estim ate ml/min /1.73m ^2 58.3 Low GFR is calculate d using the CKD-EPI equation. FINAL Oziel angelo [place] [address] [id number] 0 Phone: () - 07/02 CMP Gluco se mg/dL 73.0 126.0 72 Low FINAL Oziel angelo [place] [address] [address] [facility] [address] [place] [facility] 100 [facility] [place] [id number] 0 Phone: () - 07/02 CMP Potas sium mmol/L 3.5 5.1 4.2 FINAL Oziel aneglo [place] [address] [address] [facility] [address] [place] [address] [facility] [place] [id number] 0 Phone: () - 07/02 CMP Sodiu m mmol/L 136.0 145.0 145 FINAL Oziel angelo [facility], [address] [facility] [place] [id number] 0 Phone: () - 07/02 CMP Bilir ubin, total mg/dL 0.3 1.2 0.5 FINAL Oziel angelo [facility], [address] [facility] [place] [id number] 0 Phone: () - 07/02 CMP Total prote in g/dL 5.7 8.2 6.5 FINAL Oziel angelo [facility], [address] [facility] [id number] 0 Phone: () - 07/02 CBC w/ auto diff WBC K/uL 3.0 8.9 5.0 FINAL Oziel angelo [facility] [place], [address] [facility] [id number] 0 Phone: () - 07/02 CBC w/ auto diff HGB g/dL 11.3 15.2 12.6 FINAL Oziel angelo [facility] - [place], [address] [place] [id number] 0 Phone: () - 07/02 CBC w/ auto diff PLT K/uL 113.0 364.0 232 FINAL Oziel angelo [facility] - [place], [address] [place] [id number] 0 Phone: () - 07/02 CBC w/ auto diff Dave # (ANC) K/uL 1.6 6.6 3.2 FINAL Oziel angelo [facility] - [place], [address] [place] [id number] 0 Phone: () - 07/02 CBC w/ auto diff Dave % % 43.0 74.0 63.5 FINAL Oziel angelo [facility] - [place], [address] [place] [id number] 0 Phone: () - 07/02 CBC w/ auto diff IG % % 0.0 0.5 0.2 FINAL Oziel Tilleyot a [facility] - [place], [address] [place] [id number] 0 Phone: () - 07/02 CBC w/ auto diff IG # K/uL 0.0 0.03 0.01 FINAL Oziel Tilleyot a [facility] - [place], [address] [place] [id number] 0 Phone: () - 07/02 CBC w/ auto diff LY % % 14.0 41.0 24.1 FINAL Oziel Tilleyot a [facility] - [place], [address] [place] [id number] 0 Phone: () - 07/02 CBC w/ auto diff MO % % 6.0 15.0 9.4 FINAL Oziel Tilleyot a [facility] - [place], [address] [place] [id number] 0 Phone: () - 07/02 CBC w/ auto diff EO % % 0.0 7.0 2.2 FINAL Oziel Tilleyot a [facility] - [place], [address] [place] [id number] 0 Phone: () - 07/02 CBC w/ auto diff BA % % 0.0 2.0 0.6 FINAL Oziel Tilleyot a [facility] - [place], [address] [place] [id number] 0 Phone: () - 07/02 CBC w/ auto diff LY # K/uL 0.4 3.6 1.2 FINAL Oziel Tilleyot a [facility] - [place], [address] [place] [id number] 0 Phone: () - 07/02 CBC w/ auto diff MO # K/uL 0.2 1.3 0.5 FINAL Oziel Tilleyot a [facility] - [place], [address] [place] [id number] 0 Phone: () - 07/02 CBC w/ auto diff EO # K/uL 0.0 0.6 0.1 FINAL Oziel Tilleyot a [facility] - [place], [address] [place] [id number] 0 Phone: () - 07/02 CBC w/ auto diff BA # K/uL 0.0 0.2 0.0 FINAL Oziel Tilleyot a [facility] - [place], [address] [place] [id number] 0 Phone: () - 07/02 CBC w/ auto diff NRBC % #/100W BC 0.0 0.2 0.0 FINAL Oziel Tilleyot gi [facility] - [place], [address] [place] [id number] 0 Phone: () - 07/02 CBC w/ auto diff RBC M/uL 3.9 5.1 3.86 Low FINAL Oziel Tilleyot gi [facility] - [place], [address] [place] [id number] 0 Phone: () - 07/02 CBC w/ auto diff HCT % 35.0 48.0 37.7 FINAL Oziel angelo [facility] - [place], [address] [place] [id number] 0 Phone: () - 07/02 CBC w/ auto diff MCV fL 80.0 104.0 97.7 FINAL Oziel Tilleyot gi [facility] - [place], [address] [place] [id number] 0 Phone: () - 07/02 CBC w/ auto diff MCH pg 26.0 35.0 32.6 FINAL Oziel Tilleyot gi [facility] - [place], [address] [place] [id number] 0 Phone: () - 07/02 CBC w/ auto diff MCHC g/dL 30.0 35.0 33.4 FINAL Oziel Tilleyot a [facility] - [place], [address] [place] [id number] 0 Phone: () - 07/02 CBC w/ auto diff MPV fL 9.5 13.4 9.0 Low FINAL Oziel angelo [facility] - [place], [address] [facility] [address] [place] [place] [id number] 0 Phone: () - 07/02 CBC w/ auto diff RDW % 11.4 16.1 13.10 FINAL Oziel angelo [facility] - [place], [address] [facility] [address] [facility] [place] [id number] 0 Phone: () - 07/02 T4, free panel T4, free ng/dL 0.7 1.8 0.86 Test performed at [facility] on a Appota 2000 Immunoass ay Analyzer that uses an immunoenz ymometric sandwich assay for analysis. Patient testing should not be performed using multiple methodolo gies due to analytica l variation seen between test methodolo gies. FINAL Oziel angelo [facility], [address] [facility] [address] [facility] [place] [id number] 0 Phone: () - 07/02 TSH w/ refle x to free T4 TSH uIU/ml 0.32 5.0 6.12 High Test performed at [facility] on a [employer] 2000 Immunoass ay Analyzer that uses an immunoenz ymometric sandwich assay for analysis. Patient testing should not be performed using multiple methodolo gies due to analytica l variation seen between test methodolo gies. FINAL Oziel angelo [facility], [address] [facility] [address] [facility] [place] [id number] 0 Phone: () - 07/30 CBC w/ auto diff WBC K/uL 3.0 8.9 6.0 FINAL Oziel angelo [facility] - [place], [address] [facility] [address] [facility] [place] [id number] 0 Phone: () - 07/30 CBC w/ auto diff HGB g/dL 11.3 15.2 11.2 Low FINAL Oziel angelo [facility] - [place], [address] [facility] [address] [place] [facility] [place] [id number] 0 Phone: () - 07/30 CBC w/ auto diff PLT K/uL 113.0 364.0 220 FINAL Oziel Box [place] [facility] - [place], [address] [place] [id number] 0 Phone: () - 07/30 CBC w/ auto diff Dave # (ANC) K/uL 1.6 6.6 5.0 FINAL Oziel Tilleyot a [facility] - [place], [address] [place] [id number] 0 Phone: () - 07/30 CBC w/ auto diff Dave % % 43.0 74.0 84.4 High FINAL Oziel Tilleyot a [facility] - [place], [address] [place] [id number] 0 Phone: () - 07/30 CBC w/ auto diff IG % % 0.0 0.5 0.2 FINAL Oziel Tilleyot a [facility] - [place], [address] [place] [id number] 0 Phone: () - 07/30 CBC w/ auto diff IG # K/uL 0.0 0.03 0.01 FINAL Oziel Tilleyot a [facility] - [place], [address] [place] [id number] 0 Phone: () - 07/30 CBC w/ auto diff LY % % 14.0 41.0 10.4 Low FINAL Oziel Tilleyot a [facility] - [place], [address] [place] [id number] 0 Phone: () - 07/30 CBC w/ auto diff MO % % 6.0 15.0 4.4 Low FINAL Oziel Tilleyot a [facility] - [place], [address] [place] [id number] 0 Phone: () - 07/30 CBC w/ auto diff EO % % 0.0 7.0 0.3 FINAL Oziel Tilleyot a [facility] - [place], [address] [place] [id number] 0 Phone: () - 07/30 CBC w/ auto diff BA % % 0.0 2.0 0.3 FINAL Oziel Tilleyot a [facility] - [place], [address] [place] [id number] 0 Phone: () - 07/30 CBC w/ auto diff LY # K/uL 0.4 3.6 0.6 FINAL Oziel Tilleyot a [facility] - [place], [address] [place] [id number] 0 Phone: () - 07/30 CBC w/ auto diff MO # K/uL 0.2 1.3 0.3 FINAL Oziel Tilleyot a [facility] - [place], [address] [place] [id number] 0 Phone: () - 07/30 CBC w/ auto diff EO # K/uL 0.0 0.6 0.0 FINAL Oziel Tilleyot a [facility] - [place], [address] [place] [id number] 0 Phone: () - 07/30 CBC w/ auto diff BA # K/uL 0.0 0.2 0.0 FINAL Oziel Tilleyot a [facility] - [place], [address] [place] [id number] 0 Phone: () - 07/30 CBC w/ auto diff NRBC % #/100W BC 0.0 0.2 0.0 FINAL Oziel Tilleyot a [facility] - [place], [address] [place] [id number] 0 Phone: () - 07/30 CBC w/ auto diff RBC M/uL 3.9 5.1 3.39 Low FINAL Oziel Tilleyot a [facility] - [place], [address] [place] [id number] 0 Phone: () - 07/30 CBC w/ auto diff HCT % 35.0 48.0 34.0 Low FINAL Oziel Tilleyot a [facility] - [place], [address] [place] [id number] 0 Phone: () - 07/30 CBC w/ auto diff MCV fL 80.0 104.0 100.3 FINAL Oziel angelo [facility] - [place], [address] [place] [id number] 0 Phone: () - 07/30 CBC w/ auto diff MCH pg 26.0 35.0 33.0 FINAL Oziel angelo [facility] - [place], [address] [place] [id number] 0 Phone: () - 07/30 CBC w/ auto diff MCHC g/dL 30.0 35.0 32.9 FINAL Oziel angelo [facility] - [place], [address] [place] [id number] 0 Phone: () - 07/30 CBC w/ auto diff MPV fL 9.5 13.4 9.0 Low FINAL Oziel angelo [facility] - [place], [address] [place] [id number] 0 Phone: () - 07/30 CBC w/ auto diff RDW % 11.4 16.1 14.60 FINAL Oziel angelo [facility] - [place], [address] [place] [id number] 0 Phone: () - 07/30 TSH w/ refle x to free T4 TSH uIU/ml 0.32 5.0 4.12 Test performed at [facility] on a [employer] 2000 Immunoass ay Analyzer that uses an immunoenz ymometric sandwich assay for analysis. Patient testing should not be performed using multiple methodolo gies due to analytica l variation seen between test methodolo gies. FINAL Oziel angelo [facility], [address] [place] [id number] 0 Phone: () - 07/30 CMP Album in g/dL 3.2 5.2 4.3 FINAL Oziel angelo [facility], [address] [place] [id number] 0 Phone: () - 07/30 CMP Alkal ine phosp hatas e U/L 46.0 116.0 66 FINAL Oziel angelo [facility], [address] [facility] [address] [place] [address] [facility] [place] [id number] 0 Phone: () - 07/30 CMP ALT/S GPT U/L 7.0 40.0 15 FINAL Oziel angelo [facility], [address] [facility] [address] [place] [facility] 100 [facility] [place] [id number] 0 Phone: () - 07/30 CMP AST/S GOT U/L 13.0 40.0 22 FINAL Oziel angelo [place] [address] [address] [facility] [address] [place] [facility] 100 [facility] [place] [id number] 0 Phone: () - 07/30 CMP BUN mg/dL 9.0 23.0 18 FINAL Oziel angelo [place] [address] [address] [facility] 100 [facility] [place] [id number] 0 Phone: () - 07/30 CMP Calci um mg/dL 8.7 10.4 9.7 FINAL Oziel angelo [place] [address] [address] [facility] [address] [place] [facility] 100 [facility] [place] [id number] 0 Phone: () - 07/30 CMP Chlor vipin mmol/L 96.0 114.0 110 FINAL Oziel angelo [facility], [address] [facility] [address] [place] [facility] 100 [facility] [place] [id number] 0 Phone: () - 07/30 CMP CO2 [...] 96 hour stability window. FINAL Oziel angelo [facility], [address] [facility] [address] [place] [address] [facility] [place] [id number] 0 Phone: () - 07/30 CMP Creat inine mg/dL 0.5 1.2 0.94 FINAL Oziel angelo [facility] [address] [facility] [address] [place] [facility] 100 [facility] [place] [id number] 0 Phone: () - 07/30 CMP GFR estim ate ml/min /1.73m ^2 64.3 GFR is calculate d using the CKD-EPI equation. FINAL Oziel angelo [facility], [address] [id number] 0 Phone: () - 07/30 CMP Gluco se mg/dL 73.0 126.0 108 FINAL Oziel angelo [facility] [address] [facility] 100 [facility] [place] [id number] 0 Phone: () - 07/30 CMP Potas sium mmol/L 3.5 5.1 4.6 FINAL Oziel angelo [facility] [address] [id number] 0 Phone: () - 07/30 CMP Sodiu m mmol/L 136.0 145.0 143 FINAL Oziel angelo [place] [address] [id number] 0 Phone: () - 07/30 CMP Bilir ubin, total mg/dL 0.3 1.2 0.3 FINAL Oziel angelo [facility] [address] [id number] 0 Phone: () - 07/30 CMP Total prote in g/dL 5.7 8.2 6.4 FINAL Oziel angelo [place] [address] [id number] 0 Phone: () - 07/30 Hepat itis C antib taylor panel HCV Ab, S Negativ e Signal-to -cutoff ratio is <1.00.Farrah t Performed by:[address] Director: Kenneth Alvarenga M.D. Ph.D.; CLIA# [id number] FINAL Oziel Box 08/27 TSH w/ refle x to free T4 TSH uIU/ml 0.32 5.0 6.32 High Test performed at [facility] on a Mantex Immunoass ay Analyzer that uses an immunoenz ymometric sandwich assay for analysis. Patient testing should not be performed using multiple methodharley amador due to analytica l variation seen between test methodharley amador. FINAL Oziel angelo [facility], [facility] [address] [id number] 0 Phone: () - 08/27 CBC w/ auto diff WBC K/uL 3.0 8.9 4.4 FINAL Oziel Tilleyot gi [facility] - [place], [address] [place] [id number] 0 Phone: () - 08/27 CBC w/ auto diff HGB g/dL 11.3 15.2 10.5 Low FINAL Oziel Tilleyot gi [facility] - [place], [address] [place] [id number] 0 Phone: () - 08/27 CBC w/ auto diff PLT K/uL 113.0 364.0 226 FINAL Oziel Tilleyot a [facility] - [place], [address] [place] [id number] 0 Phone: () - 08/27 CBC w/ auto diff Dave # (ANC) K/uL 1.6 6.6 2.5 FINAL Oziel angelo [facility] - [place], [address] [place] [id number] 0 Phone: () - 08/27 CBC w/ auto diff Dave % % 43.0 74.0 56.5 FINAL Oziel angelo [facility] - [place], [address] [place] [id number] 0 Phone: () - 08/27 CBC w/ auto diff IG % % 0.0 0.5 0.2 FINAL Oziel angelo [facility] - [place], [address] [place] [id number] 0 Phone: () - 08/27 CBC w/ auto diff IG # K/uL 0.0 0.03 0.01 FINAL Oziel Tilleyot gi [facility] - [place], [address] [place] [id number] 0 Phone: () - 08/27 CBC w/ auto diff LY % % 14.0 41.0 29.6 FINAL Oziel Tilleyot a [facility] - [place], [address] [place] [id number] 0 Phone: () - 08/27 CBC w/ auto diff MO % % 6.0 15.0 9.3 FINAL Oziel angelo [facility] - [place], [address] [place] [id number] 0 Phone: () - 08/27 CBC w/ auto diff EO % % 0.0 7.0 3.9 FINAL Oziel angelo [facility] - [place], [address] [place] [id number] 0 Phone: () - 08/27 CBC w/ auto diff BA % % 0.0 2.0 0.5 FINAL Oziel angelo [facility] - [place], [address] [facility] [address] [place] [id number] 0 Phone: () - 08/27 CBC w/ auto diff LY # K/uL 0.4 3.6 1.3 FINAL Oziel angelo [facility] - [place], [address] [facility] [address] [place] [id number] 0 Phone: () - 08/27 CBC w/ auto diff MO # K/uL 0.2 1.3 0.4 FINAL Oziel angelo [facility] [place], [address] [facility] [address] [place] [id number] 0 Phone: () - 08/27 CBC w/ auto diff EO # K/uL 0.0 0.6 0.2 FINAL Oziel angelo [facility] - [place], [address] [place] [id number] 0 Phone: () - 08/27 CBC w/ auto diff BA # K/uL 0.0 0.2 0.0 FINAL Oziel angelo [facility] - [place], [address] [place] [id number] 0 Phone: () - 08/27 CBC w/ auto diff NRBC % #/100W BC 0.0 0.2 0.0 FINAL Oziel angelo [facility] - [place], [address] [place] [id number] 0 Phone: () - 08/27 CBC w/ auto diff RBC M/uL 3.9 5.1 3.17 Low FINAL Oziel Tolbert a [facility] - [place], [address] [place] [id number] 0 Phone: () - 08/27 CBC w/ auto diff HCT % 35.0 48.0 32.0 Low FINAL Oziel Tilleyot a [facility] - [place], [address] [facility] [address] [place] [id number] 0 Phone: () - 08/27 CBC w/ auto diff MCV fL 80.0 104.0 100.9 FINAL Oziel angelo [facility] - [place], [address] [facility] [address] [place] [id number] 0 Phone: () - 08/27 CBC w/ auto diff MCH pg 26.0 35.0 33.1 FINAL Oziel angelo [facility] - [place], [address] [facility] [facility] [address] [place] [id number] 0 Phone: () - 08/27 CBC w/ auto diff MCHC g/dL 30.0 35.0 32.8 FINAL Oziel angelo [facility] - [place], [address] [facility] [facility] [address] [place] [id number] 0 Phone: () - 08/27 CBC w/ auto diff MPV fL 9.5 13.4 9.1 Low FINAL Oziel angelo [facility] - [place], [address] [place] [id number] 0 Phone: () - 08/27 CBC w/ auto diff RDW % 11.4 16.1 13.80 FINAL Oziel angelo [facility] - [place], [address] [place] [id number] 0 Phone: () - 08/27 CMP Album in g/dL 3.2 5.2 4.0 FINAL Oziel Tilleyot a [facility] - [place], [address] [place] [id number] 0 Phone: () - 08/27 CMP Alkal ine phosp hatas e U/L 46.0 116.0 71 FINAL Oziel angelo [facility], [address] [facility] [address] [place] [address] [id number] 0 Phone: () - 08/27 CMP ALT/S GPT U/L 7.0 40.0 11 FINAL Oziel angelo [facility] [address] [facility] [address] [place] [address] [id number] 0 Phone: () - 08/27 CMP AST/S GOT U/L 13.0 40.0 18 FINAL Oziel angelo [place] [address] [address] [facility] [address] [place] [address] [id number] 0 Phone: () - 08/27 CMP BUN mg/dL 9.0 23.0 16 FINAL Oziel angelo [place] [address] [id number] 0 Phone: () - 08/27 CMP Calci um mg/dL 8.7 10.4 9.5 FINAL Oziel angelo [place] [address] [address] [facility] [address] [place] [address] [id number] 0 Phone: () - 08/27 CMP Chlor vipin mmol/L 96.0 114.0 110 FINAL Oziel angelo [facility], [facility] N [address] [id number] 0 Phone: () - 08/27 CMP CO2 [...] 96 hour stability window. FINAL Oziel angelo [facility], [facility] N [facility] [address] [place] [address] [id number] 0 Phone: () - 08/27 CMP Creat inine mg/dL 0.5 1.2 0.84 FINAL Oziel angelo [facility], [facility] N [facility] [address] [place] [address] [id number] 0 Phone: () - 08/27 CMP GFR estim ate ml/min /1.73m ^2 73.5 GFR is calculate d using the CKD-EPI equation. FINAL Oziel angelo [place] [address] [id number] 0 Phone: () - 08/27 CMP Gluco se mg/dL 73.0 126.0 84 FINAL Oziel angelo [place] [address] [id number] 0 Phone: () - 08/27 CMP Potas sium mmol/L 3.5 5.1 4.4 FINAL Oziel angelo [place] [address] [id number] 0 Phone: () - 08/27 CMP Sodiu m mmol/L 136.0 145.0 142 FINAL Oziel angelo [place] [address] [id number] 0 Phone: () - 08/27 CMP Bilir ubin, total mg/dL 0.3 1.2 0.3 FINAL Oziel angelo [place] [address] [id number] 0 Phone: () - 08/27 CMP Total prote in g/dL 5.7 8.2 6.1 FINAL Oziel angelo [place] [address] [id number] 0 Phone: () - 08/27 T4, free panel T4, free ng/dL 0.7 1.8 0.69 Low Test performed at [facility] on a Mantex Immunoass ay Analyzer that uses an immunoenz ymometric sandwich assay for analysis. Patient testing should not be performed using multiple kathi amador due to analytica l variation seen between test kathi amador. FINAL Oziel angelo [place] [address] [id number] 0 Phone: () - 09/26 TSH w/ refle x to free T4 TSH uIU/ml 0.32 5.0 1.33 Test performed at [facility] on a Mantex Immunoass ay Analyzer that uses an immunoenz ymometric sandwich assay for analysis. Patient testing should not be performed using multiple methodharley amador due to analytica l variation seen between test methodharley amador. FINAL Oziel angelo [place] [address] [id number] 0 Phone: () - 09/26 CMP Album in g/dL 3.2 5.2 4.3 FINAL Oziel angelo [address] [id number] 0 Phone: () - 09/26 CMP Alkal ine phosp hatas e U/L 46.0 116.0 65 FINAL Oziel angelo [address] [id number] 0 Phone: () - 09/26 CMP ALT/S GPT U/L 7.0 40.0 8 FINAL Oziel angelo [address] [id number] 0 Phone: () - 09/26 CMP AST/S GOT U/L 13.0 40.0 17 FINAL Oziel angelo [place] [address] [id number] 0 Phone: () - 09/26 CMP BUN mg/dL 9.0 23.0 21 FINAL Oziel angelo [place] [address] [id number] 0 Phone: () - 09/26 CMP Calci um mg/dL 8.7 10.4 9.2 FINAL Oziel angelo [place] [address] [id number] 0 Phone: () - 09/26 CMP Chlor vipin mmol/L 96.0 114.0 111 FINAL Oziel angelo [address] [id number] 0 Phone: () - 09/26 CMP CO2 [...] 96 hour stability window. FINAL Oziel angelo [place] [address] [id number] 0 Phone: () - 09/26 CMP Creat inine mg/dL 0.5 1.2 0.79 FINAL Oziel angelo [place] [address] [id number] 0 Phone: () - 09/26 CMP GFR estim ate ml/min /1.73m ^2 79.1 GFR is calculate d using the CKD-EPI equation. FINAL Oziel angelo [address] [id number] 0 Phone: () - 09/26 CMP Gluco se mg/dL 73.0 126.0 83 FINAL Oziel angelo [place] [address] [id number] 0 Phone: () - 09/26 CMP Potas sium mmol/L 3.5 5.1 4.4 FINAL Oziel angelo [place] [address] [id number] 0 Phone: () - 09/26 CMP Sodiu m mmol/L 136.0 145.0 143 FINAL Oziel angelo [place] [address] [id number] 0 Phone: () - 09/26 CMP Bilir ubin, total mg/dL 0.3 1.2 0.3 FINAL Oziel angelo [place] [address] [id number] 0 Phone: () - 09/26 CMP Total prote in g/dL 5.7 8.2 6.3 FINAL Oziel angelo [place] [address] [address] [facility] [address] [place] [address] [id number] 0 Phone: () - 09/26 CBC w/ auto diff WBC K/uL 3.0 8.9 4.1 FINAL Oziel angelo [facility], [address] [place] [id number] 0 Phone: () - 09/26 CBC w/ auto diff HGB g/dL 11.3 15.2 11.3 FINAL Oziel Tilleyot a [facility] - [place], [address] [place] [id number] 0 Phone: () - 09/26 CBC w/ auto diff PLT K/uL 113.0 364.0 210 FINAL Oziel T[facility]ley[facility] - [place], [address] [place] [id number] 0 Phone: () - 09/26 CBC w/ auto diff Dave # (ANC) K/uL 1.6 6.6 2.4 FINAL Oziel angelo [facility] - [place], [address] [place] [id number] 0 Phone: () - 09/26 CBC w/ auto diff Dave % % 43.0 74.0 58.2 FINAL Oziel angelo [facility] - [place], [address] [place] [id number] 0 Phone: () - 09/26 CBC w/ auto diff IG % % 0.0 0.5 0.2 FINAL Oziel angelo [facility] - [place], [address] [place] [id number] 0 Phone: () - 09/26 CBC w/ auto diff IG # K/uL 0.0 0.03 0.01 FINAL Oziel Tilleyot a [facility] - [place], [address] [address] [place] [id number] 0 Phone: () - 09/26 CBC w/ auto diff LY % % 14.0 41.0 27.0 FINAL [facility] [place], [address] [place] [id number] 0 Phone: () - 09/26 CBC w/ auto diff MO % % 6.0 15.0 10.5 FINAL [facility] - [place], [address] [place] [id number] 0 Phone: () - 09/26 CBC w/ auto diff EO % % 0.0 7.0 3.6 FINAL [facility] [place], [address] [place] [id number] 0 Phone: () - 09/26 CBC w/ auto diff BA % % 0.0 2.0 0.5 FINAL [facility] - [place], [address] [place] [id number] 0 Phone: () - 09/26 CBC w/ auto diff LY # K/uL 0.4 3.6 1.1 FINAL [facility] - [place], [address] [place] [id number] 0 Phone: () - 09/26 CBC w/ auto diff MO # K/uL 0.2 1.3 0.4 FINAL [facility] - [place], [address] [place] [id number] 0 Phone: () - 09/26 CBC w/ auto diff EO # K/uL 0.0 0.6 0.2 FINAL [facility] - [place], [address] [place] [id number] 0 Phone: () - 09/26 CBC w/ auto diff BA # K/uL 0.0 0.2 0.0 FINAL [facility] - [place], [address] [place] [id number] 0 Phone: () - 09/26 CBC w/ auto diff NRBC % #/100W BC 0.0 0.2 0.0 FINAL [facility] - [place], [address] [place] [id number] 0 Phone: () - 09/26 CBC w/ auto diff RBC M/uL 3.9 5.1 3.38 Low FINAL [facility] [place] [facility] - [place], [address] [place] [id number] 0 Phone: () - 09/26 CBC w/ auto diff HCT % 35.0 48.0 34.3 Low FINAL [facility] - [place], [address] [place] [id number] 0 Phone: () - 09/26 CBC w/ auto diff MCV fL 80.0 104.0 101.5 FINAL [facility] - [place], [address] [place] [id number] 0 Phone: () - 09/26 CBC w/ auto diff MCH pg 26.0 35.0 33.4 FINAL [facility] - [place], [address] [place] [id number] 0 Phone: () - 09/26 CBC w/ auto diff MCHC g/dL 30.0 35.0 32.9 FINAL [facility] - [place], [address] [place] [id number] 0 Phone: () - 09/26 CBC w/ auto diff MPV fL 9.5 13.4 8.9 Low FINAL [facility] - [place], [address] [place] [id number] 0 Phone: () - 09/26 CBC w/ auto diff RDW % 11.4 16.1 12.60 FINAL [facility] - [place], [address] [place] [id number] 0 Phone: () - 10/24 T4, free panel T4, free ng/dL 0.7 1.8 1.62 Test performed at [facility] on a SurroundsMeass ay Analyzer that uses an immunoenz ymometric sandwich assay for analysis. Patient testing should not be performed using multiple kathi amador due to analytica l variation seen between test methodharley amador. FINAL Lia Delgado [facility] - [place], [address] [id number] 0 Phone: () - 10/24 CMP Album in g/dL 3.2 5.2 4.3 FINAL Lia Delgado [place] [address] [address] [facility] [place] [address] [id number] 0 Phone: () - 10/24 CMP Alkal ine phosp hatas e U/L 46.0 116.0 59 FINAL Lia [place] [address] [address] [facility] [place] [address] [id number] 0 Phone: () - 10/24 CMP ALT/S GPT U/L 7.0 40.0 12 FINAL [place] [address] [address] [facility] [address] [place] [address] [id number] 0 Phone: () - 10/24 CMP AST/S GOT U/L 13.0 40.0 22 FINAL [place] [address] [address] [facility] [address] [place] [address] [id number] 0 Phone: () - 10/24 CMP BUN mg/dL 9.0 23.0 16 FINAL Lia [place] [address] [address] [facility] [address] [place] [address] [id number] 0 Phone: () - 10/24 CMP Calci um mg/dL 8.7 10.4 9.7 FINAL [place] [address] [address] [facility] [address] [place] [address] [id number] 0 Phone: () - 10/24 CMP Chlor vipin mmol/L 96.0 114.0 110 FINAL [facility] [address] [id number] 0 Phone: () - 10/24 CMP CO2 [...] of the 96 hour stability window. FINAL [place] [address] [id number] 0 Phone: () - 10/24 CMP Creat inine mg/dL 0.5 1.2 0.83 FINAL Lia [address] [id number] 0 Phone: () - 10/24 CMP GFR estim ate ml/min /1.73m ^2 74.5 GFR is calculate d using the CKD-EPI equation. FINAL [address] [id number] 0 Phone: () - 10/24 CMP Gluco se mg/dL 73.0 126.0 [address] [id number] 0 Phone: () - 10/24 CMP Potas sium mmol/L 3.5 5.1 4.[address] [id number] 0 Phone: () - 10/24 CMP Sodiu m mmol/L 136.0 145.0 [address] [id number] 0 Phone: () - 10/24 CMP Bilir ubin, total mg/dL 0.3 1.2 0.[address] [id number] 0 Phone: () - 10/24 CMP Total prote in g/dL 5.7 8.2 6.[address] [id number] 0 Phone: () - 10/24 TSH w/ refle x to free T4 TSH uIU/ml 0.32 5.0 0.05 Low Test performed at [facility] on a [employer] 2000 Immunoass ay Analyzer that uses an immunoenz ymometric sandwich assay for analysis. Patient testing should not be performed using multiple kathi amador due to analytica l variation seen between test kathi amador. FINAL [facility] - [place], [address] [place] [id number] 0 Phone: () - 10/24 CBC w/ auto diff WBC K/uL 3.0 8.9 5.5 FINAL [facility] - [place], [address] [place] [id number] 0 Phone: () - 10/24 CBC w/ auto diff HGB g/dL 11.3 15.2 12.0 FINAL [facility] - [place], [address] [place] [id number] 0 Phone: () - 10/24 CBC w/ auto diff PLT K/uL 113.0 364.0 211 FINAL [facility] - [place], [address] [place] [id number] 0 Phone: () - 10/24 CBC w/ auto diff Dave # (ANC) K/uL 1.6 6.6 3.4 FINAL [facility] - [place], [address] [place] [id number] 0 Phone: () - 10/24 CBC w/ auto diff Dave % % 43.0 74.0 62.4 FINAL [facility] - [place], [address] [place] [id number] 0 Phone: () - 10/24 CBC w/ auto diff IG % % 0.0 0.5 1.1 High FINAL [facility] - [place], [address] [place] [id number] 0 Phone: () - 10/24 CBC w/ auto diff IG # K/uL 0.0 0.03 0.06 High FINAL [facility] - [place], [address] [place] [id number] 0 Phone: () - 10/24 CBC w/ auto diff LY % % 14.0 41.0 22.2 FINAL [facility] - [place], [address] [place] [id number] 0 Phone: () - 10/24 CBC w/ auto diff MO % % 6.0 15.0 10.1 FINAL [facility] - [place], [address] [place] [id number] 0 Phone: () - 10/24 CBC w/ auto diff EO % % 0.0 7.0 3.8 FINAL [facility] - [place], [address] [place] [id number] 0 Phone: () - 10/24 CBC w/ auto diff BA % % 0.0 2.0 0.4 FINAL [facility] - [place], [address] [place] [id number] 0 Phone: () - 10/24 CBC w/ auto diff LY # K/uL 0.4 3.6 1.2 FINAL [facility] - [place], [address] [place] [id number] 0 Phone: () - 10/24 CBC w/ auto diff MO # K/uL 0.2 1.3 0.6 FINAL [facility] - [place], [address] [place] [id number] 0 Phone: () - 10/24 CBC w/ auto diff EO # K/uL 0.0 0.6 0.2 FINAL [facility] - [place], [address] [place] [id number] 0 Phone: () - 10/24 CBC w/ auto diff BA # K/uL 0.0 0.2 0.0 FINAL [facility] - [place], [address] [place] [id number] 0 Phone: () - 10/24 CBC w/ auto diff NRBC % #/100W BC 0.0 0.2 0.0 FINAL [facility] - [place], [address] [facility] [address] [place] [id number] 0 Phone: () - 10/24 CBC w/ auto diff RBC M/uL 3.9 5.1 3.62 Low FINAL Lia [facility] - [place], [address] [facility] [address] [facility] [address] [place] [id number] 0 Phone: () - 10/24 CBC w/ auto diff HCT % 35.0 48.0 35.7 FINAL Lia angel[facility] - [place], [address] [facility] [address] [place] [id number] 0 Phone: () - 10/24 CBC w/ auto diff MCV fL 80.0 104.0 98.6 FINAL Lia [facility] - [place], [address] [facility] [address] [place] [id number] 0 Phone: () - 10/24 CBC w/ auto diff MCH pg 26.0 35.0 33.1 FINAL Lia angel[facility] - [place], [address] [facility] [address] [place] [id number] 0 Phone: () - 10/24 CBC w/ auto diff MCHC g/dL 30.0 35.0 33.6 FINAL Lia [facility] - [place], [address] [facility] [address] [place] [id number] 0 Phone: () - 10/24 CBC w/ auto diff MPV fL 9.5 13.4 9.1 Low FINAL Lia angel[facility] - [place], [address] [place] [id number] 0 Phone: () - 10/24 CBC w/ auto diff RDW % 11.4 16.1 12.20 FINAL [facility] - [place], [address] [place] [id number] 0 Phone: () - 11/21 TSH w/ refle x to free T4 TSH uIU/ml 0.32 5.0 0.16 Low Test performed at [facility] on a Mantex Immunoass ay Analyzer that uses an immunoenz ymometric sandwich assay for analysis. Patient testing should not be performed using multiple methodharley amador due to analytica l variation seen between test methodharley amador. FINAL Lia [facility] - [place], [address] [place] [id number] 0 Phone: () - 11/21 CBC w/ auto diff WBC K/uL 3.0 8.9 4.1 FINAL Lia angel[facility] - [place], [address] [place] [address] [address] [place] [facility] [id number] 0 Phone: () - 11/21 CBC w/ auto diff HGB g/dL 11.3 15.2 11.8 FINAL Lia angel[facility] - [place], [address] [place] [address] [address] [place] [facility] [id number] 0 Phone: () - 11/21 CBC w/ auto diff PLT K/uL 113.0 364.0 223 FINAL Lia angel[facility] - [place], [address] [place] [address] [address] [place] [facility] [id number] 0 Phone: () - 11/21 CBC w/ auto diff Dave # (ANC) K/uL 1.6 6.6 2.3 FINAL Lia angel[facility] - [place], [address] [place] [address] [facility] [address] [place] [facility] [id number] 0 Phone: () - 11/21 CBC w/ auto diff Dave % % 43.0 74.0 56.3 FINAL Lia angel[facility] - [place], [address] [place] [address] d [address] [place] [facility] [id number] 0 Phone: () - 11/21 CBC w/ auto diff IG % % 0.0 0.5 0.2 FINAL Lia T[facility] - [place], [address] [place] [address] [facility] [address] [place] [facility] [id number] 0 Phone: () - 11/21 CBC w/ auto diff IG # K/uL 0.0 0.03 0.01 FINAL Lia angel[facility] - [place], [address] [facility] [address] [place] [id number] 0 Phone: () - 11/21 CBC w/ auto diff LY % % 14.0 41.0 29.0 FINAL Lia angel[facility] - [place], [address] [facility] [address] [place] [id number] 0 Phone: () - 11/21 CBC w/ auto diff MO % % 6.0 15.0 10.4 FINAL Lia angel[facility] - [place], [address] [facility] [address] [place] [id number] 0 Phone: () - 11/21 CBC w/ auto diff EO % % 0.0 7.0 3.9 FINAL Lia angel[facility] - [place], [address] [facility] [address] [place] [id number] 0 Phone: () - 11/21 CBC w/ auto diff BA % % 0.0 2.0 0.2 FINAL Lia angel[facility] - [place], [address] [facility] [address] [place] [id number] 0 Phone: () - 11/21 CBC w/ auto diff LY # K/uL 0.4 3.6 1.2 FINAL Lia [facility] - [place], [address] [facility] [address] [place] [id number] 0 Phone: () - 11/21 CBC w/ auto diff MO # K/uL 0.2 1.3 0.4 FINAL Lia angel[facility] - [place], [address] [facility] [address] [place] [id number] 0 Phone: () - 11/21 CBC w/ auto diff EO # K/uL 0.0 0.6 0.2 FINAL L[facility] - [place], [address] [place] [id number] 0 Phone: () - 11/21 CBC w/ auto diff BA # K/uL 0.0 0.2 0.0 FINAL Lia [facility] - [place], [address] [place] [id number] 0 Phone: () - 11/21 CBC w/ auto diff NRBC % #/100W BC 0.0 0.2 0.0 FINAL L[facility] - [place], [address] [place] [id number] 0 Phone: () - 11/21 CBC w/ auto diff RBC M/uL 3.9 5.1 3.69 Low FINAL iLa [facility] - [place], [address] [place] [id number] 0 Phone: () - 11/21 CBC w/ auto diff HCT % 35.0 48.0 35.6 FINAL Lia [facility] - [place], [address] [place] [id number] 0 Phone: () - 11/21 CBC w/ auto diff MCV fL 80.0 104.0 96.5 FINAL Lia [facility] - [place], [address] [place] [id number] 0 Phone: () - 11/21 CBC w/ auto diff MCH pg 26.0 35.0 32.0 FINAL Lia [facility] - [place], [address] [place] [id number] 0 Phone: () - 11/21 CBC w/ auto diff MCHC g/dL 30.0 35.0 33.1 FINAL Lia [facility] - [place], [address] [place] [id number] 0 Phone: () - 11/21 CBC w/ auto diff MPV fL 9.5 13.4 9.0 Low FINAL [facility] [address] [facility] [place] [id number] 0 Phone: () - 11/21 CBC w/ auto diff RDW % 11.4 16.1 12.40 FINAL [facility], [address] [facility] [address] [facility] [place] [id number] 0 Phone: () - 11/21 T4, free panel T4, free ng/dL 0.7 1.8 1.13 Test performed at [facility] on a Mantex Immunoass ay Analyzer that uses an immunoenz ymometric sandwich assay for analysis. Patient testing should not be performed using multiple methodharley amador due to analytica l variation seen between test methodharley amador. FINAL [facility] [address] [facility] [address] [place] [address] [id number] 0 Phone: () - 11/21 CMP Album in g/dL 3.2 5.2 4.1 FINAL [place] [address] [address] [facility] [place] [address] [id number] 0 Phone: () - 11/21 CMP Alkal ine phosp hatas e U/L 46.0 116.0 52 FINAL [place] [address] [address] [facility] [place] [address] [id number] 0 Phone: () - 11/21 CMP ALT/S GPT U/L 7.0 40.0 17 FINAL [place] [address] [address] [facility] [place] [address] [place] [address] [id number] 0 Phone: () - 11/21 CMP AST/S GOT U/L 13.0 40.0 24 FINAL [place] [address] [address] [facility] [place] [address] [place] [address] [id number] 0 Phone: () - 11/21 CMP BUN mg/dL 9.0 23.0 14 FINAL [facility] [address] [place] [address] [id number] 0 Phone: () - 11/21 CMP Calci um mg/dL 8.7 10.4 9.3 FINAL Lia [place] [address] [id number] 0 Phone: () - 11/21 CMP Chlor vipin mmol/L 96.0 114.0 111 [facility] [place] [address] [id number] 0 Phone: () - 11/21 CMP CO2 [...] of the 96 hour stability window. FINAL [place] [address] [id number] 0 Phone: () - 11/21 CMP Creat inine mg/dL 0.5 1.2 0.79 [place] [address] [id number] 0 Phone: () - 11/21 CMP GFR estim ate ml/min /1.73m ^2 79.1 GFR is calculate d using the CKD-EPI equation. [place] [address] [id number] 0 Phone: () - 11/21 CMP Gluco se mg/dL 73.0 126.0 86 [place] [address] [id number] 0 Phone: () - 11/21 CMP Potas sium mmol/L 3.5 5.1 4.5 [place] [address] [id number] 0 Phone: () - 11/21 CMP Sodiu m mmol/L 136.0 145.0 144 [place] [address] [id number] 0 Phone: () - 11/21 CMP Bilir ubin, total mg/dL 0.3 1.2 0.3 FINAL [facility] - [place], [address] [place] [id number] 0 Phone: () - 11/21 CMP Total prote in g/dL 5.7 8.2 6.2 FINAL L[facility] - [place], [address] [place] [id number] 0 Phone: () - 12/19 CBC w/ auto diff WBC K/uL 3.0 8.9 4.9 FINAL [facility] - [place], [address] [place] [id number] 0 Phone: () - 12/19 CBC w/ auto diff HGB g/dL 11.3 15.2 11.8 FINAL Oziel angel[facility] - [place], [address] [place] [id number] 0 Phone: () - 12/19 CBC w/ auto diff PLT K/uL 113.0 364.0 218 FINAL [facility] - [place], [address] [place] [id number] 0 Phone: () - 12/19 CBC w/ auto diff Dave # (ANC) K/uL 1.6 6.6 2.7 FINAL [facility] - [place], [address] [place] [id number] 0 Phone: () - 12/19 CBC w/ auto diff Dave % % 43.0 74.0 55.3 FINAL [facility] - [place], [address] [place] [id number] 0 Phone: () - 12/19 CBC w/ auto diff IG % % 0.0 0.5 0.2 FINAL [facility] - [place], [address] [place] [id number] 0 Phone: () - 12/19 CBC w/ auto diff IG # K/uL 0.0 0.03 0.01 FINAL [facility] - [place], [address] [place] [id number] 0 Phone: () - 12/19 CBC w/ auto diff LY % % 14.0 41.0 30.6 FINAL [facility] - [place], [address] [place] [id number] 0 Phone: () - 12/19 CBC w/ auto diff MO % % 6.0 15.0 9.3 FINAL [facility] - [place], [address] [place] [id number] 0 Phone: () - 12/19 CBC w/ auto diff EO % % 0.0 7.0 4.0 FINAL [facility] - [place], [address] [place] [id number] 0 Phone: () - 12/19 CBC w/ auto diff BA % % 0.0 2.0 0.6 FINAL [facility] - [place], [address] [place] [id number] 0 Phone: () - 12/19 CBC w/ auto diff LY # K/uL 0.4 3.6 1.5 FINAL [facility] - [place], [address] [place] [id number] 0 Phone: () - 12/19 CBC w/ auto diff MO # K/uL 0.2 1.3 0.5 FINAL Oz[facility] - [place], [address] [place] [id number] 0 Phone: () - 12/19 CBC w/ auto diff EO # K/uL 0.0 0.6 0.2 FINAL [facility] - [place], [address] [place] [id number] 0 Phone: () - 12/19 CBC w/ auto diff BA # K/uL 0.0 0.2 0.0 FINAL Oz[facility] - [place], [address] [place] [id number] 0 Phone: () - 12/19 CBC w/ auto diff NRBC % #/100W BC 0.0 0.2 0.0 FINAL Oz[facility] - [place], [address] [place] [id number] 0 Phone: () - 12/19 CBC w/ auto diff RBC M/uL 3.9 5.1 3.68 Low FINAL Oz[facility] - [place], [address] [place] [id number] 0 Phone: () - 12/19 CBC w/ auto diff HCT % 35.0 48.0 35.3 FINAL Oz[facility] - [place], [address] [place] [id number] 0 Phone: () - 12/19 CBC w/ auto diff MCV fL 80.0 104.0 95.9 FINAL Oz[facility] - [place], [address] [place] [id number] 0 Phone: () - 12/19 CBC w/ auto diff MCH pg 26.0 35.0 32.1 FINAL Oziel angelo [facility] - [place], [address] [place] [id number] 0 Phone: () - 12/19 CBC w/ auto diff MCHC g/dL 30.0 35.0 33.4 FINAL Oziel [facility] - [place], [address] [place] [id number] 0 Phone: () - 12/19 CBC w/ auto diff MPV fL 9.5 13.4 9.1 Low FINAL Oziel [facility] - [place], [address] [place] [id number] 0 Phone: () - 12/19 CBC w/ auto diff RDW % 11.4 16.1 13.30 FINAL Oziel angelo [facility], [address] [facility] [id number] 0 Phone: () - 12/19 TSH w/ refle x to free T4 TSH uIU/ml 0.32 5.0 2.75 Test performed at [facility] on a Mantex Immunoass ay Analyzer that uses an immunoenz ymometric sandwich assay for analysis. Patient testing should not be performed using multiple methodolo gies due to analytica l variation seen between test methodolo gies. FINAL Oziel angelo [place] [address] [address] [facility] [address] [place] [address] [id number] 0 Phone: () - 12/19 CMP Album in g/dL 3.2 5.2 4.0 FINAL Oziel angelo [place] [address] [address] [facility] [address] [place] [address] [id number] 0 Phone: () - 12/19 CMP Alkal ine phosp hatas e U/L 46.0 116.0 58 FINAL Oziel angelo [facility], [address] [facility] [place] [address] [place] [address] [id number] 0 Phone: () - 12/19 CMP ALT/S GPT U/L 7.0 40.0 13 FINAL Oziel angelo [facility] [address] [facility] [place] [address] [place] [address] [id number] 0 Phone: () - 12/19 CMP AST/S GOT U/L 13.0 40.0 24 FINAL Oziel angelo [facility] [address] [facility] [place] [address] [place] [address] [id number] 0 Phone: () - 12/19 CMP BUN mg/dL 9.0 23.0 18 FINAL Oziel angelo [place] [address] [address] [facility] [place] [address] [id number] 0 Phone: () - 12/19 CMP Calci um mg/dL 8.7 10.4 9.7 FINAL Oziel angelo [place] [address] [address] [facility] [place] [address] [place] [address] [id number] 0 Phone: () - 12/19 CMP Chlor vipin mmol/L 96.0 114.0 111 FINAL Oziel angelo [facility] [address] [id number] 0 Phone: () - 12/19 CMP CO2 [...] 96 hour stability window. FINAL Oziel angelo [place] [address] [id number] 0 Phone: () - 12/19 CMP Creat inine mg/dL 0.5 1.2 0.82 FINAL Oziel angelo [place] [address] [id number] 0 Phone: () - 12/19 CMP GFR estim ate ml/min /1.73m ^2 75.6 GFR is calculate d using the CKD-EPI equation. FINAL Oziel angelo [place] [address] [id number] 0 Phone: () - 12/19 CMP Gluco se mg/dL 73.0 126.0 81 FINAL Oziel angelo [facility] [address] [facility] [place] [address] [id number] 0 Phone: () - 12/19 CMP Potas sium mmol/L 3.5 5.1 4.4 FINAL Oziel angelo [place] [address] [address] [facility] [place] [address] [id number] 0 Phone: () - 12/19 CMP Sodiu m mmol/L 136.0 145.0 144 FINAL Oziel angelo [place] [address] [address] [facility] [place] [address] [id number] 0 Phone: () - 12/19 CMP Bilir ubin, total mg/dL 0.3 1.2 0.4 FINAL Oziel angelo [facility] [address] [facility] [place] [address] [id number] 0 Phone: () - 12/19 CMP Total prote in g/dL 5.7 8.2 6.3 FINAL Oziel [facility] - [place], [address] [place] [id number] 0 Phone: () - 01/12 [facility] [place] [facility] other lab 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 d 01/16 CBC w/ auto diff WBC K/uL 3.0 8.9 4.4 FINAL Oziel [facility] - [place], [address] [place] [id number] 0 Phone: () - 01/16 CBC w/ auto diff HGB g/dL 11.3 15.2 11.9 FINAL Oziel [facility] - [place], [address] [place] [id number] 0 Phone: () - 01/16 CBC w/ auto diff PLT K/uL 113.0 364.0 231 FINAL Oziel angelo [facility] - [place], [address] [place] [id number] 0 Phone: () - 01/16 CBC w/ auto diff Dave # (ANC) K/uL 1.6 6.6 2.4 FINAL Oziel angelo [facility] - [place], [address] [place] [id number] 0 Phone: () - 01/16 CBC w/ auto diff Dave % % 43.0 74.0 54.7 FINAL [facility] [place], [address] [place] [id number] 0 Phone: () - 01/16 CBC w/ auto diff IG % % 0.0 0.5 0.2 FINAL [facility] [place], [address] [place] [id number] 0 Phone: () - 01/16 CBC w/ auto diff IG # K/uL 0.0 0.03 0.01 FINAL [facility] [place], [address] [place] [id number] 0 Phone: () - 01/16 CBC w/ auto diff LY % % 14.0 41.0 31.8 FINAL [facility] [place], [address] [place] [id number] 0 Phone: () - 01/16 CBC w/ auto diff MO % % 6.0 15.0 8.9 FINAL [facility] [place], [address] [place] [id number] 0 Phone: () - 01/16 CBC w/ auto diff EO % % 0.0 7.0 3.9 FINAL [facility] [place], [address] [place] [id number] 0 Phone: () - 01/16 CBC w/ auto diff BA % % 0.0 2.0 0.5 FINAL [facility] [place], [address] [place] [id number] 0 Phone: () - 01/16 CBC w/ auto diff LY # K/uL 0.4 3.6 1.4 FINAL [facility] [place], [address] [place] [id number] 0 Phone: () - 01/16 CBC w/ auto diff MO # K/uL 0.2 1.3 0.4 FINAL [facility] [place], [address] [place] [id number] 0 Phone: () - 01/16 CBC w/ auto diff EO # K/uL 0.0 0.6 0.2 FINAL [facility] [place], [address] [place] [id number] 0 Phone: () - 01/16 CBC w/ auto diff BA # K/uL 0.0 0.2 0.0 FINAL [facility] [place], [address] [place] [id number] 0 Phone: () - 01/16 CBC w/ auto diff NRBC % #/100W BC 0.0 0.2 0.0 FINAL [facility] [place], [address] [place] [id number] 0 Phone: () - 01/16 CBC w/ auto diff RBC M/uL 3.9 5.1 3.69 Low FINAL [facility] [place], [address] [place] [id number] 0 Phone: () - 01/16 CBC w/ auto diff HCT % 35.0 48.0 35.0 FINAL [facility] [place], [address] [place] [id number] 0 Phone: () - 01/16 CBC w/ auto diff MCV fL 80.0 104.0 94.9 FINAL [facility] [place], [address] [place] [id number] 0 Phone: () - 01/16 CBC w/ auto diff MCH pg 26.0 35.0 32.2 FINAL [facility] [place], [address] [place] [phone] 0 Phone: () - 01/16 CBC w/ auto diff MCHC g/dL 30.0 35.0 34.0 FINAL [facility] [place], [address] [place] [id number] 0 Phone: () - 01/16 CBC w/ auto diff MPV fL 9.5 13.4 8.8 Low FINAL [facility] [place], [address] [place] [id number] 0 Phone: () - 01/16 CBC w/ auto diff RDW % 11.4 16.1 13.90 FINAL [facility] [place], [address] [facility] [id number] 0 Phone: () - 01/16 CMP Album in g/dL 3.2 5.2 4.3 FINAL [facility] angel[facility], [address] [facility] [id number] 0 Phone: () - 01/16 CMP Alkal ine phosp hatas e U/L 46.0 116.0 64 FINAL [facility]iel angel[facility] [address] [place] [address] [id number] 0 Phone: () - 01/16 CMP ALT/S GPT U/L 7.0 40.0 12 FINAL Oziel angelo [place] [address] [facility] [id number] 0 Phone: () - 01/16 CMP AST/S GOT U/L 13.0 40.0 23 FINAL Oziel angelo [place] [address] [place] [address] [id number] 0 Phone: () - 01/16 CMP BUN mg/dL 9.0 23.0 17 FINAL Oziel angelo [place] [address] [place] [address] [id number] 0 Phone: () - 01/16 CMP Calci um mg/dL 8.7 10.4 9.4 FINAL Oziel angel[facility] [address] [id number] 0 Phone: () - 01/16 CMP Chlor vipin mmol/L 96.0 114.0 108 FINAL Oziel angelo [facility], [address] [place] [address] [id number] 0 Phone: () - 01/16 CMP CO2 [...] 96 hour stability window. FINAL [facility] [address] [id number] 0 Phone: () - 01/16 CMP Creat inine mg/dL 0.5 1.2 1.07 FINAL Oziel angelo [address] [id number] 0 Phone: () - 01/16 CMP GFR estim ate ml/min /1.73m ^2 54.9 Low GFR is calculate d using the CKD-EPI equation. FINAL Oziel angelo [address] [id number] 0 Phone: () - 01/16 CMP Gluco se mg/dL 73.0 126.0 84 FINAL Oziel angelo [address] [id number] 0 Phone: () - 01/16 CMP Potas sium mmol/L 3.5 5.1 4.4 FINAL Oziel angelo [address] [id number] 0 Phone: () - 01/16 CMP Sodiu m mmol/L 136.0 145.0 141 FINAL Oziel angelo [address] [id number] 0 Phone: () - 01/16 CMP Bilir ubin, total mg/dL 0.3 1.2 0.4 FINAL Oziel angelo [address] [id number] 0 Phone: () - 01/16 CMP Total prote in g/dL 5.7 8.2 6.6 FINAL Oziel angelo [address] [id number] 0 Phone: () - 01/16 TSH w/ refle x to free T4 TSH uIU/ml 0.32 5.0 14.74 High Provider Alert. Notified Vicki by Lynne Flannery on 01/19/2022 at 2:55 PM.Test performed at [facility] on a SurroundsMeass ay Analyzer that uses an immunoenz ymometric sandwich assay for analysis. Patient testing should not be performed using multiple methodolo gies due to analytica l variation seen between test methodolo gies. FINAL [facility] [place], [address] [facility] [id number] 0 Phone: () - 01/16 T4, free panel T4, free ng/dL 0.7 1.8 0.75 Test performed at [facility] on a TosSocialStay 2000 Immunoass ay Analyzer that uses an immunoenz ymometric sandwich assay for analysis. Patient testing should not be performed using multiple methodolo gies due to analytica l variation seen between test methodolo gies. FINAL [facility] [place], [address] [facility] [id number] 0 Phone: () - 02/20 TSH w/ refle x to free T4 TSH uIU/ml 0.32 5.0 Sent to [facility] ce Lab. Hard copy results availab le only. Test performed at [facility] on a TosSocialStay 2000 Immunoass ay Analyzer that uses an immunoenz ymometric sandwich assay for analysis. Patient testing should not be performed using multiple methodolo gies due to analytica l variation seen between test methodolo gies. FINAL [facility] [place], [address] [facility] [id number] 0 Phone: () - 02/20 T4, free panel T4, free ng/dL 0.7 1.8 1.01 Test Performed by:[facility] [address] - [facility] [place] [id number] e : FINAL Oziel Box 02/20 TSH uIU/mL 0.35 4.94 8.74 High In Adults, TSH values between 5.00 and 10.00 uIU/ml do notnecess arily indicate the presence of Hypothyro idism.Cor relation with clinical findings such as presence of goiterand /or Thyropero xidase (TPO) Antibody may be helpful. Formore informati on please refer to MAYELA 2004; 291: 228-238.T est Performed by:[facility] [address] - [facility] [place] [id number] e [phone] FINAL [facility]iel Box 05/08 CMP Album in g/dL 3.2 5.2 4.0 FINAL Oziel angelo [facility], [address] [place] [address] [id number] 0 Phone: () - 05/08 CMP Alkal ine phosp hatas e U/L 46.0 116.0 56 FINAL Oziel angelo [facility], [address] [facility] [id number] 0 Phone: () - 05/08 CMP ALT/S GPT U/L 7.0 40.0 17 FINAL Oziel angelo [facility] [address] [id number] 0 Phone: () - 05/08 CMP AST/S GOT U/L 13.0 40.0 21 FINAL Oziel angel[facility] [address] [id number] 0 Phone: () - 05/08 CMP BUN mg/dL 9.0 23.0 22 FINAL Oziel angelo [facility] [address] [facility] [address] [place] [address] [id number] 0 Phone: () - 05/08 CMP Calci um mg/dL 8.7 10.4 9.3 FINAL Oziel angelo [facility] [address] [facility] [address] [place] [address] [id number] 0 Phone: () - 05/08 CMP Chlor vipin mmol/L 96.0 114.0 112 FINAL Oziel angelo [facility] [address] [facility] [address] [place] [address] [id number] 0 Phone: () - 05/08 CMP CO2 [...] 96 hour stability window. FINAL Oziel angelo [facility], [address] [place] [address] [id number] 0 Phone: () - 05/08 CMP Creat inine mg/dL 0.5 1.2 0.86 FINAL Oziel angelo [place] [address] [address] [facility] [address] [place] [address] [place] [address] [id number] 0 Phone: () - 05/08 CMP GFR estim ate ml/min /1.73m ^2 71.2 GFR is calculate d using the CKD-EPI equation. FINAL Oziel angelo [place] [address] [id number] 0 Phone: () - 05/08 CMP Gluco se mg/dL 73.0 126.0 77 FINAL Oziel nagelo [place] [address] [address] [facility] [address] [place] [address] [place] [address] [id number] 0 Phone: () - 05/08 CMP Potas sium mmol/L 3.5 5.1 3.9 FINAL Oziel angelo [place] [address] [id number] 0 Phone: () - 05/08 CMP Sodiu m mmol/L 136.0 145.0 148 High FINAL Oziel angelo [place] [address] [address] [facility] [address] [place] [address] [place] [address] [id number] 0 Phone: () - 05/08 CMP Bilir ubin, total mg/dL 0.3 1.2 0.4 FINAL Oziel angelo [place] [address] [address] [facility] [address] [place] [address] [id number] 0 Phone: () - 05/08 CMP Total prote in g/dL 5.7 8.2 6.1 FINAL Oziel angelo [place] [address] [address] [facility] [address] [place] [address] [place] [address] [id number] 0 Phone: () - 05/08 CBC w/ auto diff WBC K/uL 3.0 8.9 7.3 FINAL [facility] [place], [address] [place] [id number] 0 Phone: () - 05/08 CBC w/ auto diff HGB g/dL 11.3 15.2 11.0 Low FINAL [facility] [place], [address] [place] [id number] 0 Phone: () - 05/08 CBC w/ auto diff PLT K/uL 113.0 364.0 210 FINAL [facility] [place], [address] [place] [id number] 0 Phone: () - 05/08 CBC w/ auto diff Dave # (ANC) K/uL 1.6 6.6 3.7 FINAL [facility] [place], [address] [place] [id number] 0 Phone: () - 05/08 CBC w/ auto diff Dave % % 43.0 74.0 51.1 FINAL [facility] [place], [address] [place] [id number] 0 Phone: () - 05/08 CBC w/ auto diff IG % % 0.0 0.5 0.3 FINAL [facility] [place], [address] [place] [id number] 0 Phone: () - 05/08 CBC w/ auto diff IG # K/uL 0.0 0.03 0.02 FINAL [facility] [place], [address] [place] [id number] 0 Phone: () - 05/08 CBC w/ auto diff LY % % 14.0 41.0 37.9 FINAL [facility] [place], [address] [place] [id number] 0 Phone: () - 05/08 CBC w/ auto diff MO % % 6.0 15.0 9.2 FINAL [facility] [place], [address] [place] [id number] 0 Phone: () - 05/08 CBC w/ auto diff EO % % 0.0 7.0 1.2 FINAL [facility] [place], [address] [place] [id number] 0 Phone: () - 05/08 CBC w/ auto diff BA % % 0.0 2.0 0.3 FINAL [facility] [place], [address] [place] [id number] 0 Phone: () - 05/08 CBC w/ auto diff LY # K/uL 0.4 3.6 2.8 FINAL [facility] [place], [address] [place] [id number] 0 Phone: () - 05/08 CBC w/ auto diff MO # K/uL 0.2 1.3 0.7 FINAL [facility] [place], [address] [place] [id number] 0 Phone: () - 05/08 CBC w/ auto diff EO # K/uL 0.0 0.6 0.1 FINAL [facility] [place], [address] [place] [id number] 0 Phone: () - 05/08 CBC w/ auto diff BA # K/uL 0.0 0.2 0.0 FINAL [facility] [place], [address] [place] [id number] 0 Phone: () - 05/08 CBC w/ auto diff NRBC % #/100W BC 0.0 0.2 0.0 FINAL [facility] [place], [address] [place] [id number] 0 Phone: () - 05/08 CBC w/ auto diff RBC M/uL 3.9 5.1 3.27 Low FINAL [facility] [place], [address] [place] [id number] 0 Phone: () - 05/08 CBC w/ auto diff HCT % 35.0 48.0 32.1 Low FINAL [facility] [place], [address] [place] [id number] 0 Phone: () - 05/08 CBC w/ auto diff MCV fL 80.0 104.0 98.2 FINAL [facility] [place], [address] [place] [id number] 0 Phone: () - 05/08 CBC w/ auto diff MCH pg 26.0 35.0 33.6 FINAL [facility] [place], [address] [facility] [address] [address] [place] [id number] 0 Phone: () - 05/08 CBC w/ auto diff MCHC g/dL 30.0 35.0 34.3 FINAL [facility] [place], [address] [facility] [address] [place] [id number] 0 Phone: () - 05/08 CBC w/ auto diff MPV fL 9.5 13.4 9.4 Low FINAL [facility] [place], [address] [facility] [address] [place] [id number] 0 Phone: () - 05/08 CBC w/ auto diff RDW % 11.4 16.1 13.10 FINAL [facility] [place], [address] [facility] [address] [place] [id number] 0 Phone: () - 05/08 TSH w/ refle x to free T4 TSH uIU/ml 0.32 5.0 1.36 Test performed at [facility] on a Mantex Immunoass ay Analyzer that uses an immunoenz ymometric sandwich assay for analysis. Patient testing should not be performed using multiple methodharley amador due to analytica l variation seen between test methodharley amador. FINAL [facility], [address] [place] [id number] 0 Phone: () - 07/23 [facility] other lab 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 d 07/23 [facility] other lab 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 d 11/03 CMP Album in g/dL 3.2 5.2 4.1 FINAL Oziel angelo [facility], [address] [facility] [address] [place] [address] [facility] [id number] 0 Phone: () - 11/03 CMP Alkal ine phosp hatas e U/L 46.0 116.0 59 FINAL Oziel angelo [facility], [address] [facility] [address] [place] [facility] 100 [facility] [id number] 0 Phone: () - 11/03 CMP ALT/S GPT U/L 7.0 40.0 <7 FINAL Oziel angelo [facility], [address] [facility] [address] [place] [facility] 100 [facility] [id number] 0 Phone: () - 11/03 CMP AST/S GOT U/L 13.0 40.0 24 FINAL Oziel angelo [facility], [address] [facility] [address] [place] [facility] 100 [facility] [id number] 0 Phone: () - 11/03 CMP BUN mg/dL 9.0 23.0 16.0 FINAL Oziel angelo [facility] [address] [facility] [address] [place] [facility] 100 [facility] [id number] 0 Phone: () - 11/03 CMP Calci um mg/dL 8.7 10.4 9.1 FINAL Oziel angelo [facility], [address] [facility] [address] [place] [facility] 100 [facility] [id number] 0 Phone: () - 11/03 CMP Chlor vipin mmol/L 96.0 114.0 105 FINAL Oziel angelo [facility], [address] [id number] 0 Phone: () - 11/03 CMP CO2 [...] 96 hour stability window. FINAL Oziel angelo [facility], [address] [facility] [address] [place] [address] [facility] [id number] 0 Phone: () - 11/03 CMP Creat inine mg/dL 0.5 1.2 0.88 FINAL Oziel angelo [facility], [address] [facility] [address] [place] [address] [id number] 0 Phone: () - 11/03 CMP GFR estim ate ml/min /1.73m ^2 69.0 GFR is calculate d using the CKD-EPI equation. FINAL Oziel angelo [facility] [address] [id number] 0 Phone: () - 11/03 CMP Gluco se mg/dL 73.0 126.0 105 FINAL zOiel angelo [facility] [address] [id number] 0 Phone: () - 11/03 CMP Potas sium mmol/L 3.5 5.1 4.4 FINAL Oziel angelo [facility] [address] [id number] 0 Phone: () - 11/03 CMP Sodiu m mmol/L 136.0 145.0 139 FINAL Oziel angelo [facility] [address] [id number] 0 Phone: () - 11/03 CMP Bilir ubin, total mg/dL 0.3 1.2 0.6 FINAL Oziel angelo [place] [address] [id number] 0 Phone: () - 11/03 CMP Total prote in g/dL 5.7 8.2 6.6 FINAL Oziel angelo [place] [address] [id number] 0 Phone: () - 11/03 CBC w/ auto diff WBC K/uL 3.0 8.9 4.7 FINAL [facility] [place], [address] [place] [id number] 0 Phone: () - 11/03 CBC w/ auto diff HGB g/dL 11.3 15.2 11.6 FINAL [facility] [place], [address] [facility] [place] [id number] 0 Phone: () - 11/03 CBC w/ auto diff PLT K/uL 113.0 364.0 248 FINAL [facility] [place], [address] [place] [id number] 0 Phone: () - 11/03 CBC w/ auto diff Dave # (ANC) K/uL 1.6 6.6 2.9 FINAL [facility] [place], [address] [place] [id number] 0 Phone: () - 11/03 CBC w/ auto diff Dave % % 43.0 74.0 60.9 FINAL [facility] [place], [address] [place] [id number] 0 Phone: () - 11/03 CBC w/ auto diff IG % % 0.0 0.5 0.4 FINAL [facility] [place], [address] [place] [id number] 0 Phone: () - 11/03 CBC w/ auto diff IG # K/uL 0.0 0.03 0.02 FINAL [facility] [place], [address] [place] [id number] 0 Phone: () - 11/03 CBC w/ auto diff LY % % 14.0 41.0 26.8 FINAL [facility] [place], [address] [place] [id number] 0 Phone: () - 11/03 CBC w/ auto diff MO % % 6.0 15.0 8.5 FINAL [facility] [place], [address] [place] [id number] 0 Phone: () - 11/03 CBC w/ auto diff EO % % 0.0 7.0 3.0 FINAL [facility] [place], [address] [place] [id number] 0 Phone: () - 11/03 CBC w/ auto diff BA % % 0.0 2.0 0.4 FINAL [facility] [place], [address] [place] [id number] 0 Phone: () - 11/03 CBC w/ auto diff LY # K/uL 0.4 3.6 1.3 FINAL [facility] [place], [address] [place] [id number] 0 Phone: () - 11/03 CBC w/ auto diff MO # K/uL 0.2 1.3 0.4 FINAL [facility] [place], [address] [place] [id number] 0 Phone: () - 11/03 CBC w/ auto diff EO # K/uL 0.0 0.6 0.1 FINAL [facility] [place], [address] [place] [id number] 0 Phone: () - 11/03 CBC w/ auto diff BA # K/uL 0.0 0.2 0.0 FINAL [facility] [place], [address] [place] [id number] 0 Phone: () - 11/03 CBC w/ auto diff NRBC % #/100W BC 0.0 0.2 0.0 FINAL [facility] [place], [address] [place] [id number] 0 Phone: () - 11/03 CBC w/ auto diff RBC M/uL 3.9 5.1 3.52 Low FINAL [facility] [place], [address] [place] [id number] 0 Phone: () - 11/03 CBC w/ auto diff HCT % 35.0 48.0 34.2 Low FINAL [facility] [place], [address] [place] [id number] 0 Phone: () - 11/03 CBC w/ auto diff MCV fL 80.0 104.0 97.2 FINAL [facility] [place], [facility] [address] [facility] [address] [place] [facility] [place] [id number] 0 Phone: () - 11/03 CBC w/ auto diff MCH pg 26.0 35.0 33.0 FINAL [facility] [place], [address] [place] [address] [facility] [address] [place] [id number] 0 Phone: () - 11/03 CBC w/ auto diff MCHC g/dL 30.0 35.0 33.9 FINAL [facility] [place], [facility] [address] [facility] [address] [place] [id number] 0 Phone: () - 11/03 CBC w/ auto diff MPV fL 9.5 13.4 8.7 Low FINAL [facility]iel angle[facility] - [place], [address] [place] [address] [address] [place] [id number] 0 Phone: () - 11/03 CBC w/ auto diff RDW % 11.4 16.1 14.40 FINAL [facility] [place], [address] [place] [address] d [address] [facility] [place] [id number] 0 Phone: () - 02/08 CMP Album in g/dL 3.2 5.2 4.0 FINAL [facility], [address] [place] [address] [id number] 0 Phone: () - 02/08 CMP Alkal ine phosp hatas e U/L 46.0 116.0 83 FINAL [facility], [address] [facility] [id number] 0 Phone: () - 02/08 CMP ALT/S GPT U/L 7.0 40.0 <7 FINAL [facility], [address] [facility] [id number] 0 Phone: () - 02/08 CMP AST/S GOT U/L 13.0 40.0 23 FINAL Oziel angelo [facility] [address] [facility] 100 [facility] [id number] 0 Phone: () - 02/08 CMP BUN mg/dL 9.0 23.0 17.0 FINAL Oziel angelo [facility] [address] [facility] 100 [facility] [id number] 0 Phone: () - 02/08 CMP Calci um mg/dL 8.7 10.4 8.8 FINAL Oziel angelo [place] [address] [address] [facility] 100 [facility] [id number] 0 Phone: () - 02/08 CMP Chlor vipin mmol/L 96.0 114.0 109 FINAL Oziel angelo [place] [address] [id number] 0 Phone: () - 02/08 CMP CO2 [...] 96 hour stability window. FINAL Oziel angelo [place] [address] [id number] 0 Phone: () - 02/08 CMP Creat inine mg/dL 0.5 1.2 0.86 FINAL Oziel angelo [place] [address] [id number] 0 Phone: () - 02/08 CMP GFR estim ate ml/min /1.73m ^2 70.9 GFR is calculate d using the CKD-EPI equation. FINAL Oziel angelo [place] [address] [id number] 0 Phone: () - 02/08 CMP Gluco se mg/dL 73.0 126.0 84 FINAL Oziel angelo [place] [address] [id number] 0 Phone: () - 02/08 CMP Potas sium mmol/L 3.5 5.1 4.5 FINAL [facility], [address] [facility] [id number] 0 Phone: () - 02/08 CMP Sodiu m mmol/L 136.0 145.0 141 FINAL Oziel angelo [facility], [address] [facility] [id number] 0 Phone: () - 02/08 CMP Bilir ubin, total mg/dL 0.3 1.2 0.3 FINAL Oziel angelo [facility], [address] [facility] [id number] 0 Phone: () - 02/08 CMP Total prote in g/dL 5.7 8.2 6.1 FINAL Oziel angelo [facility], [address] [facility] [address] [place] [address] [facility] [id number] 0 Phone: () - 02/08 TSH w/ refle x to free T4 TSH uIU/ml 0.32 5.0 3.61 Test performed at [facility] on a Mantex Immunoass ay Analyzer that uses an immunoenz ymometric sandwich assay for analysis. Patient testing should not be performed using multiple methodharley amador due to analytica l variation seen between test methodharley amador. FINAL Oziel angelo [facility], [address] [facility] [address] [place] [address] [facility] [id number] 0 Phone: () - 02/08 CBC w/ auto diff WBC K/uL 3.0 8.9 4.7 FINAL [facility] [place], [address] [facility] [address] [place] [id number] 0 Phone: () - 02/08 CBC w/ auto diff HGB g/dL 11.3 15.2 11.0 Low FINAL [facility] - [place], [address] [facility] [address] [facility] [id number] 0 Phone: () - 02/08 CBC w/ auto diff PLT K/uL 113.0 364.0 194 FINAL [facility] - [place], [address] [facility] [address] [facility] [id number] 0 Phone: () - 02/08 CBC w/ auto diff Dave # (ANC) K/uL 1.6 6.6 2.7 FINAL Oziel angelo [facility] - [place], [address] [place] [id number] 0 Phone: () - 02/08 CBC w/ auto diff Dave % % 43.0 74.0 57.2 FINAL Oziel Tilleyot gi [facility] - [place], [address] [place] [id number] 0 Phone: () - 02/08 CBC w/ auto diff IG % % 0.0 0.5 0.4 FINAL Oziel Tolbert a [facility] - [place], [address] [place] [id number] 0 Phone: () - 02/08 CBC w/ auto diff IG # K/uL 0.0 0.03 0.02 FINAL Oziel angelo [facility] - [place], [address] [place] [id number] 0 Phone: () - 02/08 CBC w/ auto diff LY % % 14.0 41.0 31.6 FINAL Oziel angelo [facility] - [place], [address] [place] [id number] 0 Phone: () - 02/08 CBC w/ auto diff MO % % 6.0 15.0 8.0 FINAL Oziel angelo [facility] - [place], [address] [place] [id number] 0 Phone: () - 02/08 CBC w/ auto diff EO % % 0.0 7.0 2.2 FINAL Oziel Tilleyot a [facility] - [place], [address] [place] [id number] 0 Phone: () - 02/08 CBC w/ auto diff BA % % 0.0 2.0 0.6 FINAL Oziel Tilleyot a [facility] - [place], [address] [place] [id number] 0 Phone: () - 02/08 CBC w/ auto diff LY # K/uL 0.4 3.6 1.5 FINAL Oziel angelo [facility] - [place], [address] [place] [id number] 0 Phone: () - 02/08 CBC w/ auto diff MO # K/uL 0.2 1.3 0.4 FINAL Oziel Tolbert a [facility] - [place], [address] [place] [id number] 0 Phone: () - 02/08 CBC w/ auto diff EO # K/uL 0.0 0.6 0.1 FINAL Oziel angelo [facility] - [place], [address] [place] [id number] 0 Phone: () - 02/08 CBC w/ auto diff BA # K/uL 0.0 0.2 0.0 FINAL Oziel angelo [facility] - [place], [address] [place] [id number] 0 Phone: () - 02/08 CBC w/ auto diff NRBC % #/100W BC 0.0 0.2 0.0 FINAL Oziel angelo [facility] - [place], [address] [place] [id number] 0 Phone: () - 02/08 CBC w/ auto diff RBC M/uL 3.9 5.1 3.26 Low FINAL Oziel angel[facility] - [place], [address] [place] [id number] 0 Phone: () - 02/08 CBC w/ auto diff HCT % 35.0 48.0 32.9 Low FINAL Oziel angelo [facility] - [place], [address] [place] [id number] 0 Phone: () - 02/08 CBC w/ auto diff MCV fL 80.0 104.0 100.9 FINAL Oziel Tilleyot a [facility] - [place], [address] [place] [id number] 0 Phone: () - 02/08 CBC w/ auto diff MCH pg 26.0 35.0 33.7 FINAL Oziel Tilleyot a [facility] - [place], [address] [place] [id number] 0 Phone: () - 02/08 CBC w/ auto diff MCHC g/dL 30.0 35.0 33.4 FINAL Oziel Tilleyot a [facility] - [place], [address] [place] [id number] 0 Phone: () - 02/08 CBC w/ auto diff MPV fL 9.5 13.4 9.0 Low FINAL Oziel Tilleyot a [facility] - [place], [address] [place] [id number] 0 Phone: () - 02/08 CBC w/ auto diff RDW % 11.4 16.1 13.70 FINAL Oziel Tilleyot a [facility] - [place], [address] [facility] [address] [place] [id number] 0 Phone: () - 06/06 [facility] [place] other lab 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 d 08/09 CMP Album in g/dL 3.5 5.0 4.1 FINAL Oziel Box * [facility] [place], [address] [facility] [place] [id number] 0 08/09 CMP Alkal ine phosp hatas e U/L 36.0 125.0 66 FINAL Oziel Box * [facility] [place], [address] [facility] [place] [id number] 0 08/09 CMP ALT/S GPT U/L 0.0 34.0 6 FINAL Oziel Box * [place] [facility] [place], [address] [facility] [place] [id number] 0 08/09 CMP AST/S GOT U/L 14.0 36.0 28 FINAL Oziel Tilleyot a [facility], [address] [facility] [id number] 0 08/09 CMP BUN mg/dL 7.0 17.0 17.0 FINAL Oziel Tilleyot a [facility], [address] [id number] 0 08/09 CMP Calci um mg/dL 8.4 10.2 9.4 FINAL Oziel Tilleyot a [facility], [address] [id number] 0 08/09 CMP Chlor vipin mmol/L 96.0 107.0 106 [facility], [address] [id number] 0 08/09 CMP CO2 mmol/L 22.0 30.0 [...] the 96 hour stability window. [facility]AL [facility], [address] [facility] [id number] 0 08/09 CMP Creat inine mg/dL 0.66 1.25 0.70 FINAL Oziel Tilleyot a [facility], [address] [facility] [id number] 0 08/09 CMP GFR estim ate ml/min /1.73m ^2 90.4 GFR is calculate d using the CKD-EPI equation. FINAL Oziel Tilleyot [facility], [address] [facility] [id number] 0 08/09 CMP Gluco se mg/dL 74.0 100.0 87 FINAL Oziel Box * [facility], [address] [id number] 0 08/09 CMP Potas sium mmol/L 3.5 5.1 4.2 FINAL Oziel Box * [place] [facility], [address] [id number] 0 08/09 CMP Sodiu m mmol/L 137.0 145.0 139 FINAL Oziel Box * [place] [facility], [address] [address] [id number] 0 08/09 CMP Bilir ubin, total mg/dL 0.2 1.3 0.3 FINAL Oziel Box * [facility], [address] [id number] 0 08/09 CMP Total prote in g/dL 6.3 8.2 6.7 FINAL Oziel Box * [place] [facility], [address] [address] [id number] 0 08/09 CBC w/ auto diff WBC K/uL 3.0 8.9 3.5 FINAL Oziel Tilleyot a [facility] - [place], [address] [place] [facility] [id number] 0 Phone: () - 08/09 CBC w/ auto diff HGB g/dL 11.3 15.2 11.7 FINAL Oziel Tilleyot a [facility] - [place], [address] [place] [id number] 0 Phone: () - 08/09 CBC w/ auto diff PLT K/uL 113.0 364.0 196 FINAL Oziel Tilleyot a [facility] - [place], [address] [place] [id number] 0 Phone: () - 08/09 CBC w/ auto diff Dave # (ANC) K/uL 1.6 6.6 1.9 FINAL Oziel Tilleyot a [facility] - [place], [address] [place] [id number] 0 Phone: () - 08/09 CBC w/ auto diff Dave % % 43.0 74.0 52.2 FINAL Oziel Tilleyot a [facility] - [place], [address] [place] [id number] 0 Phone: () - 08/09 CBC w/ auto diff IG % % 0.0 0.5 0.3 FINAL Oziel Tilleyot a [facility] - [place], [address] [place] [id number] 0 Phone: () - 08/09 CBC w/ auto diff IG # K/uL 0.0 0.03 0.01 FINAL Oziel Tilleyot a [facility] - [place], [address] [place] [id number] 0 Phone: () - 08/09 CBC w/ auto diff LY % % 14.0 41.0 35.0 FINAL Oziel angelo [facility] - [place], [address] [place] [id number] 0 Phone: () - 08/09 CBC w/ auto diff MO % % 6.0 15.0 9.6 FINAL Oziel Tilleyot a [facility] - [place], [address] [place] [id number] 0 Phone: () - 08/09 CBC w/ auto diff EO % % 0.0 7.0 2.3 FINAL Oziel Tilleyot a [facility] - [place], [address] [place] [id number] 0 Phone: () - 08/09 CBC w/ auto diff BA % % 0.0 2.0 0.6 FINAL Oziel Tilleyot a [facility] - [place], [address] [place] [id number] 0 Phone: () - 08/09 CBC w/ auto diff LY # K/uL 0.4 3.6 1.2 FINAL Oziel Tilleyot a [facility] - [place], [address] [place] [id number] 0 Phone: () - 08/09 CBC w/ auto diff MO # K/uL 0.2 1.3 0.3 FINAL Oziel Tilleyot a [facility] - [place], [address] [place] [id number] 0 Phone: () - 08/09 CBC w/ auto diff EO # K/uL 0.0 0.6 0.1 FINAL Oziel Tolbert a [facility] - [place], [address] [place] [id number] 0 Phone: () - 08/09 CBC w/ auto diff BA # K/uL 0.0 0.2 0.0 FINAL Oziel angelo [facility] - [place], [address] [place] [id number] 0 Phone: () - 08/09 CBC w/ auto diff NRBC % #/100W BC 0.0 0.2 0.0 FINAL Oziel angelo [facility] - [place], [address] [place] [id number] 0 Phone: () - 08/09 CBC w/ auto diff RBC M/uL 3.9 5.1 3.51 Low FINAL Oziel Tolbert a [facility] - [place], [address] [place] [id number] 0 Phone: () - 08/09 CBC w/ auto diff HCT % 35.0 48.0 35.6 FINAL Oziel Tilleyot a [facility] - [place], [address] [place] [id number] 0 Phone: () - 08/09 CBC w/ auto diff MCV fL 80.0 104.0 101.4 FINAL Oziel Tilleyot a [facility] - [place], [address] [place] [id number] 0 Phone: () - 08/09 CBC w/ auto diff MCH pg 26.0 35.0 33.3 FINAL Oziel Tilleyot a [facility] - [place], [address] [place] [id number] 0 Phone: () - 08/09 CBC w/ auto diff MCHC g/dL 30.0 35.0 32.9 FINAL Oziel Tilleyot a [facility] - [place], [address] [place] [id number] 0 Phone: () - 08/09 CBC w/ auto diff MPV fL 9.5 13.4 9.3 Low FINAL Oziel Tilleyot a [facility] - [place], [address] [place] [id number] 0 Phone: () - 08/09 CBC w/ auto diff RDW % 11.4 16.1 13.20 FINAL Oziel Tilleyot a [facility] - [place], [address] [place] [id number] 0 Phone: () - 08/09 TSH w/ refle x to free T4 TSHR- v mIU/ml 0.47 4.68 0.74 FINAL Oziel Box * [facility] [place], [address] [facility] [place] [id number] 0 02/13 CBC w/ auto diff WBC K/uL 3.0 8.9 4.7 FINAL Oziel FREEMAN [facility] - [place], [address] [place] [id number] 0 02/13 CBC w/ auto diff HGB g/dL 11.3 15.2 10.4 Low FINAL Oziel FREEMAN [facility] - [place], [address] [place] [id number] 0 02/13 CBC w/ auto diff PLT K/uL 113.0 364.0 252 FINAL Oziel FREEMAN [facility] - [place], [address] [place] [id number] 0 02/13 CBC w/ auto diff Dave # (ANC) K/uL 1.6 6.6 2.4 FINAL Oziel FREEMAN [facility] - [place], [address] [place] [id number] 0 02/13 CBC w/ auto diff Dave % % 43.0 74.0 51.3 FINAL Oziel FREEMAN [facility] - [place], [address] [place] [id number] 0 02/13 CBC w/ auto diff IG % % 0.0 0.5 0.2 FINAL Oziel FREEAMN [facility] - [place], [address] [place] [id number] 0 02/13 CBC w/ auto diff IG # K/uL 0.0 0.03 0.01 FINAL Oziel FREEMAN [facility] - [place], [address] [place] [id number] 0 02/13 CBC w/ auto diff LY % % 14.0 41.0 33.5 FINAL Oziel FREEMAN [facility] - [place], [address] [place] [id number] 0 02/13 CBC w/ auto diff MO % % 6.0 15.0 8.8 FINAL Oziel FREEMAN [facility] - [place], [address] [place] [id number] 0 02/13 CBC w/ auto diff EO % % 0.0 7.0 5.6 FINAL Oziel FREEMAN [facility] - [place], [address] [place] [id number] 0 02/13 CBC w/ auto diff BA % % 0.0 2.0 0.6 FINAL Oziel FREEMAN [facility] - [place], [address] [place] [id number] 0 02/13 CBC w/ auto diff LY # K/uL 0.4 3.6 1.6 FINAL zOiel FREEMAN On[facility] - [place], [address] [place] [id number] 0 02/13 CBC w/ auto diff MO # K/uL 0.2 1.3 0.4 FINAL Oziel FREEMAN [facility] - [place], [address] [place] [id number] 0 02/13 CBC w/ auto diff EO # K/uL 0.0 0.6 0.3 FINAL Oziel FREEMAN [facility] - [place], [address] [place] [id number] 0 02/13 CBC w/ auto diff BA # K/uL 0.0 0.2 0.0 FINAL Oziel FREEMAN [facility] - [place], [address] [place] [id number] 0 02/13 CBC w/ auto diff NRBC % #/100W BC 0.0 0.2 0.0 FINAL Oziel FREEMAN [facility] - [place], [address] [place] [id number] 0 02/13 CBC w/ auto diff RBC M/uL 3.9 5.1 3.24 Low FINAL Oziel FREEMAN [facility] - [place], [address] [place] [id number] 0 02/13 CBC w/ auto diff HCT % 35.0 48.0 32.3 Low FINAL Oziel FREEMAN [facility] - [place], [address] [place] [id number] 0 02/13 CBC w/ auto diff MCV fL 80.0 104.0 99.7 FINAL Oziel FREEMAN [facility] - [place], [address] [place] [id number] 0 02/13 CBC w/ auto diff MCH pg 26.0 35.0 32.1 FINAL Oziel FREEMAN [facility] - [place], [address] [place] [id number] 0 02/13 CBC w/ auto diff MCHC g/dL 30.0 35.0 32.2 FINAL Oziel FREEMAN [facility] - [place], [address] [place] [id number] 0 02/13 CBC w/ auto diff MPV fL 9.5 13.4 9.1 Low FINAL Oziel FREEMAN [facility] - [place], [address] [place] [id number] 0 02/13 CBC w/ auto diff RDW % 11.4 16.1 13.70 FINAL Oziel FREEMAN [facility] - [place], [address] [place] [id number] 0 02/13 CMP Album in g/dL 3.5 5.0 3.5 FINAL Oziel Box * [place] [facility] [place], [address] [place] [id number] 0 02/13 CMP Alkal ine phosp hatas e U/L 36.0 125.0 75 FINAL Oziel Box * [place] [facility] [place], [address] [place] [id number] 0 02/13 CMP ALT/S GPT U/L 0.0 34.0 <4 Repeate d FINAL Oziel Box * [place] [facility] [place], [address] [facility] [id number] 0 02/13 CMP AST/S GOT U/L 14.0 36.0 17 FINAL Oziel Box * [place] [facility] [place], [address] [facility] [id number] 0 02/13 CMP BUN mg/dL 7.0 17.0 18.0 High FINAL Oziel Box * [place] [facility] [place], [address] [facility] [id number] 0 02/13 CMP Calci um mg/dL 8.4 10.2 9.2 FINAL Oziel Box * [place] [facility] [place], [address] [facility] [id number] 0 02/13 CMP Chlor vipin mmol/L 96.0 107.0 109 High FINAL [place]iel Card [place] [facility] [place], [address] [facility] [id number] 0 02/13 CMP CO2 mmol/L 22.0 30.0 [...] hour stability window. FINAL Oziel Box * [place] [facility] [place], [address] [facility] [id number] 0 02/13 CMP Creat inine mg/dL 0.66 1.25 0.80 FINAL Oziel Box * [place] [facility] [place], [address] [facility] [id number] 0 02/13 CMP GFR estim ate ml/min /1.73m ^2 76.8 GFR is calculate d using the CKD-EPI equation. FINAL Oziel Box * [place] [facility] [place], [address] [facility] [id number] 0 02/13 CMP Gluco se mg/dL 74.0 100.0 84 FINAL [place]iel Card [place] [facility] [place], [address] [facility] [id number] 0 02/13 CMP Potas sium mmol/L 3.5 5.1 4.4 FINAL [place] Card [place] [facility], [address] [facility] [id number] 0 02/13 CMP Sodiu m mmol/L 137.0 145.0 137 FINAL [place] Card [place] [facility] [place], [address] [facility] [id number] 0 02/13 CMP Bilir ubin, total mg/dL 0.2 1.3 0.5 FINAL [place] Card [place] [facility], [address] [facility] [id number] 0 02/13 CMP Total prote in g/dL 6.3 8.2 6.2 Low FINAL Oziel Box * [place] [facility], [address] [facility] [id number] 0 04/03 Misc other lab 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 , [address] [address] [facility] [id number] 0 08/14 CMP AST/S GOT U/L 14.0 36.0 28 FINAL Oziel Box * [facility] , [address] [address] [facility] [id number] 0 08/14 CMP BUN mg/dL 7.0 17.0 25.0 High FINAL Oziel Box * [facility] , [facility] [address] [id number] 0 08/14 CMP Calci um mg/dL 8.4 10.2 8.7 FINAL Oziel Box * [facility] , [address] [facility] [address] [id number] 0 08/14 CMP Chlor vipin mmol/L 96.0 107.0 109 High FINAL Oziel Box * [facility] , [address] [address] [id number] 0 08/14 CMP CO2 mmol/L 22.0 30.0 [...] hour stability window. FINAL Oziel Box * [facility] , [address] [facility] [address] [id number] 0 08/14 CMP Creat inine mg/dL 0.66 1.25 0.90 FINAL Oziel Box * [facility] On[facility] , [facility] [facility] [id number] 0 08/14 CMP GFR estim ate ml/min /1.73m ^2 66.5 GFR is calculate d using the CKD-EPI equation. FINAL Oziel Box * [facility] Oncology , [address] [facility] [id number] 0 08/14 CMP Gluco se mg/dL 74.0 100.0 95 FINAL Oziel Box * [facility] On[facility] , [address] [facility] [id number] 0 08/14 CMP Potas sium mmol/L 3.5 5.1 4.5 FINAL Oziel Box * [facility] Oncology , [address] [facility] [id number] 0 08/14 CMP Sodiu m mmol/L 137.0 145.0 137 FINAL Oziel Box * [facility] , [address] [facility] [id number] 0 08/14 CMP Bilir ubin, total mg/dL 0.2 1.3 0.8 FINAL Oziel Box * [facility] On[facility] , [address] [facility] [id number] 0 08/14 CMP Total prote in g/dL 6.3 8.2 6.5 FINAL Oziel Box * [facility] , [address] [address] [facility] [id number] 0 08/14 CBC w/ auto diff WBC K/uL 3.0 8.9 4.7 FINAL Oziel Box [facility] , [address] [place] [address] [facility] [address] [facility] [id number] 0 08/14 CBC w/ auto diff HGB g/dL 11.3 15.2 11.5 FINAL Oziel [place] [facility] , [address] [place] [id number] 0 08/14 CBC w/ auto diff PLT K/uL 113.0 364.0 211 FINAL Oziel Box [place] [facility] , [address] [place] [id number] 0 08/14 CBC w/ auto diff Dave # (ANC) K/uL 1.6 6.6 2.9 FINAL Oziel Box [place] [facility] , [address] [place] [id number] 0 08/14 CBC w/ auto diff Dave % % 43.0 74.0 61.3 FINAL Oziel Box [place] [facility] , [address] [place] [id number] 0 08/14 CBC w/ auto diff IG % % 0.0 0.5 0.2 FINAL Oziel Box [place] [facility] , [address] [place] [id number] 0 08/14 CBC w/ auto diff IG # K/uL 0.0 0.03 0.01 FINAL Oziel Box [place] [facility] , [address] [place] [id number] 0 08/14 CBC w/ auto diff LY % % 14.0 41.0 25.6 FINAL Oziel Box [place] [facility] , [address] [place] [id number] 0 08/14 CBC w/ auto diff MO % % 6.0 15.0 8.7 FINAL Oziel Box [place] [facility] , [address] [place] [id number] 0 08/14 CBC w/ auto diff EO % % 0.0 7.0 3.8 FINAL Oziel Box [place] [facility] , [address] [place] [id number] 0 08/14 CBC w/ auto diff BA % % 0.0 2.0 0.4 FINAL Oziel Box [place] [facility] , [address] [place] [id number] 0 08/14 CBC w/ auto diff LY # K/uL 0.4 3.6 1.2 FINAL Oziel Box [place] [facility] , [address] [place] [id number] 0 08/14 CBC w/ auto diff MO # K/uL 0.2 1.3 0.4 FINAL Oziel Box [place] [facility] , [address] [place] [id number] 0 08/14 CBC w/ auto diff EO # K/uL 0.0 0.6 0.2 FINAL Oziel Box [place] [facility] , [address] [place] [id number] 0 08/14 CBC w/ auto diff BA # K/uL 0.0 0.2 0.0 FINAL Oziel Box [place] [facility] , [address] [place] [id number] 0 08/14 CBC w/ auto diff NRBC % #/100W BC 0.0 0.2 0.0 FINAL Oziel Box [place] [facility] , [address] [place] [id number] 0 08/14 CBC w/ auto diff RBC M/uL 3.9 5.1 3.60 Low FINAL Oziel Box [place] [facility] , [address] [place] [id number] 0 08/14 CBC w/ auto diff HCT % 35.0 48.0 35.2 FINAL Oziel Box [place] [facility] , [address] [place] [id number] 0 08/14 CBC w/ auto diff MCV fL 80.0 104.0 97.8 FINAL Oziel Box [place] [facility] , [address] [place] [id number] 0 08/14 CBC w/ auto diff MCH pg 26.0 35.0 31.9 FINAL Oziel Box [place] [facility] , [address] [place] [id number] 0 08/14 CBC w/ auto diff MCHC g/dL 30.0 35.0 32.7 FINAL Oziel Box [place] [facility] , [address] [place] [id number] 0 08/14 CBC w/ auto diff MPV fL 9.5 13.4 9.0 Low FINAL Oziel Box [place] [facility] , [address] [facility] [address] [place] [id number] 0 08/14 CBC w/ auto diff RDW % 11.4 16.1 13.60 FINAL Oziel Box [place] [facility] , [address] [place] [id number] 0 Medications Date Name Route Dose Frequency Instructions Start Date End Date Status Vitamin P25-Gkttk Acid Oral 500 mcg-400 mcg daily active [...] concentration must be 0.3-1.2 mg/mL.Administ er using [id number] ining equipment and through an in-line 0.22 [...]
--- OUTSIDE RECORDS SUMMARY | 2024-08-27 14:33 | XMS_ITS ---
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 Name Role Phone Oziel Box Unavailable Allergies [...] Lab Address 04/03 Misc other lab See surgical services tech d 08/14 CBC w/ auto diff WBC K/uL 3.0 8.9 4.7 FINAL Oziel Box [place] [facility] [place] [facility] , [address] [place] [id number] 0 08/14 CBC w/ auto diff HGB g/dL 11.3 15.2 11.5 FINAL Oziel Box [place] [facility] [place] [facility] , [address] [place] [id number] 0 08/14 CBC w/ auto diff PLT K/uL 113.0 364.0 211 FINAL Oziel Box [place] [facility] [place] [facility] , [address] [place] [id number] 0 08/14 CBC w/ auto diff Dave # (ANC) K/uL 1.6 6.6 2.9 FINAL Oziel Box [place] [facility] [place] [facility] , [address] [place] [id number] 0 08/14 CBC w/ auto diff Dave % % 43.0 74.0 61.3 FINAL Oziel Box [place] [facility] [place] [facility] , [address] [place] [id number] 0 08/14 CBC w/ auto diff IG % % 0.0 0.5 0.2 FINAL Oziel Box [place] [facility] [place] [facility] , [address] [place] [id number] 0 08/14 CBC w/ auto diff IG # K/uL 0.0 0.03 0.01 FINAL Oziel Box [place] [facility] [place] [facility] , [address] [place] [id number] 0 08/14 CBC w/ auto diff LY % % 14.0 41.0 25.6 FINAL Oziel Box [place] [facility] [place] [facility] , [address] [place] [id number] 0 08/14 CBC w/ auto diff MO % % 6.0 15.0 8.7 FINAL Oziel Box [place] [facility] [place] [facility] , [address] [place] [id number] 0 08/14 CBC w/ auto diff EO % % 0.0 7.0 3.8 FINAL Oziel Box [place] [facility] [place] [facility] , [address] [place] [id number] 0 08/14 CBC w/ auto diff BA % % 0.0 2.0 0.4 FINAL Oziel Box [place] [facility] [place] [facility] , [address] [place] [id number] 0 08/14 CBC w/ auto diff LY # K/uL 0.4 3.6 1.2 FINAL Oziel Box [place] [facility] [place] [facility] , [address] [place] [id number] 0 08/14 CBC w/ auto diff MO # K/uL 0.2 1.3 0.4 FINAL Oziel Box [place] [facility] [place] [facility] , [address] [place] [id number] 0 08/14 CBC w/ auto diff EO # K/uL 0.0 0.6 0.2 FINAL Oziel Box [place] [facility] [place] [facility] , [address] [place] [id number] 0 08/14 CBC w/ auto diff BA # K/uL 0.0 0.2 0.0 FINAL Oziel Box [place] [facility] [place] [facility] , [address] [place] [id number] 0 08/14 CBC w/ auto diff NRBC % #/100W BC 0.0 0.2 0.0 FINAL Oziel Box [place] [facility] [place] [facility] , [address] [place] [id number] 0 08/14 CBC w/ auto diff RBC M/uL 3.9 5.1 3.60 Low FINAL Oziel Box [place] [facility] [place] [facility] , [address] [place] [id number] 0 08/14 CBC w/ auto diff HCT % 35.0 48.0 35.2 FINAL Oziel Box [place] [facility] [place] [facility] , [address] [place] [id number] 0 08/14 CBC w/ auto diff MCV fL 80.0 104.0 97.8 FINAL Oziel Box [place] [facility] [place] [facility] , [address] [place] [id number] 0 08/14 CBC w/ auto diff MCH pg 26.0 35.0 31.9 FINAL Oziel Box [place] [facility] [place] [facility] , [address] [place] [id number] 0 08/14 CBC w/ auto diff MCHC g/dL 30.0 35.0 32.7 FINAL Oziel Box [place] [facility] [place] [facility] , [address] [place] [id number] 0 08/14 CBC w/ auto diff MPV fL 9.5 13.4 9.0 Low FINAL Oziel Box [place] [facility] [place] [facility] , [address] [place] [id number] 0 08/14 CBC w/ auto diff RDW % 11.4 16.1 13.60 FINAL Oziel Box [place] [facility] [place] [facility] , [address] [place] [id number] 0 08/14 CMP Album in g/dL 3.5 5.0 3.7 FINAL Oziel Box * [facility] , [address] [facility] [address] [facility] [id number] 0 08/14 CMP Alkal ine phosp hatas e U/L 36.0 125.0 68 FINAL Oziel Box * [facility] , [address] [facility] [address] [facility] [id number] 0 08/14 CMP ALT/S GPT U/L 0.0 34.0 10 FINAL Oziel Box * [facility] , [address] [facility] [address] [id number] 0 08/14 CMP AST/S GOT U/L 14.0 36.0 28 FINAL Oziel Box * [facility] , [address] [facility] [address] [id number] 0 08/14 CMP BUN mg/dL 7.0 17.0 25.0 High FINAL Oziel Box * [facility] , [address] [facility] [address] [facility] [id number] 0 08/14 CMP Calci um mg/dL 8.4 10.2 8.7 FINAL Oziel Box * [facility] , [address] [facility] [address] [id number] 0 08/14 CMP Chlor vipin mmol/L 96.0 107.0 109 High FINAL Oziel Box * [facility] , [address] [facility] [address] [facility] [id number] 0 08/14 CMP CO2 mmol/L 22.0 30.0 [...] hour stability window. FINAL Oziel Box * [facility] , [facility] [address] [id number] 0 08/14 CMP Creat inine mg/dL 0.66 1.25 0.90 FINAL Oziel Box * [facility] , [facility] [address] [id number] 0 08/14 CMP GFR estim ate ml/min /1.73m ^2 66.5 GFR is calculate d using the CKD-EPI equation. FINAL Oziel Box * [facility] , [facility] [address] [id number] 0 08/14 CMP Gluco se mg/dL 74.0 100.0 95 FINAL Oziel Box * [facility] , [facility] [address] [id number] 0 08/14 CMP Potas sium mmol/L 3.5 5.1 4.5 FINAL Oziel Box * [facility] , [facility] [address] [id number] 0 08/14 CMP Sodiu m mmol/L 137.0 145.0 137 FINAL Oziel Box * [facility] , [address] [facility] [address] [id number] 0 08/14 CMP Bilir ubin, total mg/dL 0.2 1.3 0.8 FINAL Oziel Box * [facility] , [facility] [address] [id number] 0 08/14 CMP Total prote in g/dL 6.3 8.2 6.5 FINAL Oziel Box * [facility] , [facility] [address] [id number] 0 Medications Date Name Route Dose Frequency Instructions Start Date End Date Status Vitamin B49-Olltr Acid Oral 500 mcg-400 mcg daily active [...] concentration must be 0.3-1.2 mg/mL.Administ er using [employer] ining equipment and through an in-line 0.22 [...] Oral 02/18/2024 Docusate Sodium Oral 02/18/2024 Vitamin S26-Ecsge Acid Oral 500 mcg-400 mcg 11/13/2022 Levothyroxine [...] signed by Oziel Box MD 02/21/2024 11:02 [employer]CH[employer] DES[employer]
--- OUTSIDE RECORDS SUMMARY | 2024-08-27 14:33 | XMS_ITS ---
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 Patient testing should not be performed using multiple methodolo ginaun due to analytica l variation seen between test methodharley amador. FINAL [facility] - [place], [address] [facility] [id number] [phone] Phone: () - 09/26 CBC w/ auto diff WBC K/uL 3.0 8.9 4.1 FINAL [facility] - [facility], [address] [facility] [id number] 0 Phone: () - 09/26 CBC w/ auto diff HGB g/dL 11.3 15.2 11.3 FINAL [facility] - [place], [address] [place] [id number] 0 Phone: () - 09/26 CBC w/ auto diff PLT K/uL 113.0 364.0 210 FINAL [facility] - [place], [address] [place] [id number] 0 Phone: () - 09/26 CBC w/ auto diff Dave # (ANC) K/uL 1.6 6.6 2.4 FINAL [facility] - [place], [address] [place] [id number] 0 Phone: () - 09/26 CBC w/ auto diff Dave % % 43.0 74.0 58.2 FINAL [facility] - [place], [address] [place] [id number] 0 Phone: () - 09/26 CBC w/ auto diff IG % % 0.0 0.5 0.2 FINAL [facility] - [place], [address] [place] [id number] 0 Phone: () - 09/26 CBC w/ auto diff IG # K/uL 0.0 0.03 0.01 FINAL [facility] - [place], [address] [place] [id number] 0 Phone: () - 09/26 CBC w/ auto diff LY % % 14.0 41.0 27.0 FINAL [facility] - [place], [address] [place] [id number] 0 Phone: () - 09/26 CBC w/ auto diff MO % % 6.0 15.0 10.5 FINAL [facility] - [place], [address] [place] [id number] 0 Phone: () - 09/26 CBC w/ auto diff EO % % 0.0 7.0 3.6 FINAL [facility] - [place], [address] [place] [phone] 0 Phone: () - 09/26 CBC w/ auto diff BA % % 0.0 2.0 0.5 FINAL [facility] - [place], [address] [place] [phone] 0 Phone: () - 09/26 CBC w/ auto diff LY # K/uL 0.4 3.6 1.1 FINAL [facility] - [place], [address] [place] [id number] 0 Phone: () - 09/26 CBC w/ auto diff MO # K/uL 0.2 1.3 0.4 FINAL [facility] - [place], [address] [place] [id number] 0 Phone: () - 09/26 CBC w/ auto diff EO # K/uL 0.0 0.6 0.2 FINAL [facility] - [place], [address] [place] [id number] 0 Phone: () - 09/26 CBC w/ auto diff BA # K/uL 0.0 0.2 0.0 FINAL Oizel [facility] - [place], [address] [place] [id number] 0 Phone: () - 09/26 CBC w/ auto diff NRBC % #/100W BC 0.0 0.2 0.0 FINAL [facility] - [place], [address] [place] [id number] 0 Phone: () - 09/26 CBC w/ auto diff RBC M/uL 3.9 5.1 3.38 Low FINAL [facility] - [place], [address] [place] [id number] 0 Phone: () - 09/26 CBC w/ auto diff HCT % 35.0 48.0 34.3 Low FINAL Oziel angelo [facility] - [place], [facility] [address] [place] [id number] 0 Phone: () - 09/26 CBC w/ auto diff MCV fL 80.0 104.0 101.5 FINAL [facility]iel angel[facility] - [place], [facility] [address] [place] [id number] 0 Phone: () - 09/26 CBC w/ auto diff MCH pg 26.0 35.0 33.4 FINAL [facility] - [place], [facility] [address] [place] [id number] 0 Phone: () - 09/26 CBC w/ auto diff MCHC g/dL 30.0 35.0 32.9 FINAL Oziel angelo [facility] - [place], [facility] [address] [place] [id number] 0 Phone: () - 09/26 CBC w/ auto diff MPV fL 9.5 13.4 8.9 Low FINAL Oziel angel[facility] - [place], [facility] [address] [facility] [place] [id number] 0 Phone: () - 09/26 CBC w/ auto diff RDW % 11.4 16.1 12.60 FINAL Oziel angel[facility] - [place], [facility] [address] [place] [id number] 0 Phone: () - 09/26 CMP Album in g/dL 3.2 5.2 4.3 FINAL [facility] - [place], [address] [place] [id number] 0 Phone: () - 09/26 CMP Alkal ine phosp hatas e U/L 46.0 116.0 65 FINAL [facility] - [place], [address] [place] [id number] 0 Phone: () - 09/26 CMP ALT/S GPT U/L 7.0 40.0 8 FINAL Oziel angelo [facility], [address] [id number] 0 Phone: () - 09/26 CMP AST/S GOT U/L 13.0 40.0 17 FINAL Oziel angelo [facility] [address] [facility] [address] [id number] 0 Phone: () - 09/26 CMP BUN mg/dL 9.0 23.0 21 FINAL Oziel angelo [place] [address] [id number] 0 Phone: () - 09/26 CMP Calci um mg/dL 8.7 10.4 9.2 FINAL Oziel angelo [place] [address] [phone] 0 Phone: () - 09/26 CMP Chlor vipin mmol/L 96.0 114.0 111 FINAL Oziel angelo [place] [address] [id number] 0 Phone: () - 09/26 CMP CO2 [...] 96 hour stability window. FINAL Oziel angelo [facility], [facility] [address] [id number] 0 Phone: () - 09/26 CMP Creat inine mg/dL 0.5 1.2 0.79 FINAL Oziel angelo [place] [address] [id number] 0 Phone: () - 09/26 CMP GFR estim ate ml/min /1.73m ^2 79.1 GFR is calculate d using the CKD-EPI equation. FINAL Oziel angelo [place] [address] [id number] 0 Phone: () - 09/26 CMP Gluco se mg/dL 73.0 126.0 83 FINAL Oziel Box [place] [address] [address] [facility] [address] [facility] [id number] 0 Phone: () - 09/26 CMP Potas sium mmol/L 3.5 5.1 4.4 FINAL [facility] [address] [facility] [address] [facility] [id number] 0 Phone: () - 09/26 CMP Sodiu m mmol/L 136.0 145.0 143 FINAL Oziel [place] [address] [address] [facility] [address] [facility] [id number] 0 Phone: () - 09/26 CMP Bilir ubin, total mg/dL 0.3 1.2 0.3 FINAL Oziel [place] [address] [address] [facility] [address] [id number] 0 Phone: () - 09/26 CMP Total prote in g/dL 5.7 8.2 6.3 FINAL Oziel [place] [address] [address] [facility] [address] [id number] 0 Phone: () - 10/24 T4, free panel T4, free ng/dL 0.7 1.8 1.62 Test performed at [facility] on a [employer] Immun[employer] ay Analyzer that uses an immunoenz ymometric sandwich assay for analysis. Patient testing should not be performed using multiple methodolo ginaun due to analytica l variation seen between test methodharley amador. FINAL Lia Delgado [place] [address] [address] [facility] [address] [place] [address] [phone] 0 Phone: () - 10/24 CMP Album in g/dL 3.2 5.2 4.3 FINAL iLa [place] [address] [address] [facility] [address] [id number] 0 Phone: () - 10/24 CMP Alkal ine phosp hatas e U/L 46.0 116.0 59 FINAL Lia [facility] [address] [facility] [id number] 0 Phone: () - 10/24 CMP ALT/S GPT U/L 7.0 40.0 12 FINAL [facility], [address] [facility] [address] [facility] [id number] 0 Phone: () - 10/24 CMP AST/S GOT U/L 13.0 40.0 22 FINAL [facility] [address] [facility] [address] [id number] 0 Phone: () - 10/24 CMP BUN mg/dL 9.0 23.0 16 [place] [address] [address] [facility] [address] [id number] 0 Phone: () - 10/24 CMP Calci um mg/dL 8.7 10.4 9.7 [place] [address] [id number] 0 Phone: () - 10/24 CMP Chlor vipin mmol/L 96.0 114.0 110 FINAL [place] [address] [id number] 0 Phone: () - 10/24 CMP CO2 [...] of the 96 hour stability window. FINAL [facility], [facility] N [address] [id number] 0 Phone: () - 10/24 CMP Creat inine mg/dL 0.5 1.2 0.83 [place] [address] [id number] 0 Phone: () - 10/24 CMP GFR estim ate ml/min /1.73m ^2 74.5 GFR is calculate d using the CKD-EPI equation. FINAL [place] [address] [address] [facility] [address] [id number] 0 Phone: () - 10/24 CMP Gluco se mg/dL 73.0 126.0 87 FINAL [facility], [address] [facility] [id number] 0 Phone: () - 10/24 CMP Potas sium mmol/L 3.5 5.1 4.4 FINAL [facility] [address] [facility] [id number] 0 Phone: () - 10/24 CMP Sodiu m mmol/L 136.0 145.0 145 FINAL [facility], [address] [facility] [id number] 0 Phone: () - 10/24 CMP Bilir ubin, total mg/dL 0.3 1.2 0.4 FINAL [facility], [address] [facility] [id number] 0 Phone: () - 10/24 CMP Total prote in g/dL 5.7 8.2 6.4 FINAL [facility], [address] [facility] [id number] 0 Phone: () - 10/24 TSH w/ refle x to free T4 TSH uIU/ml 0.32 5.0 0.05 Low Test performed at [facility] on a [employer] 2000 Immunoass ay Analyzer that uses an immunoenz ymometric sandwich assay for analysis. Patient testing should not be performed using multiple kathi amador due to analytica l variation seen between test kathi amador. FINAL [facility], [address] [facility] [id number] 0 Phone: () - 10/24 CBC w/ auto diff WBC K/uL 3.0 8.9 5.5 FINAL [facility] [place], [address] [facility] [place] [id number] 0 Phone: () - 10/24 CBC w/ auto diff HGB g/dL 11.3 15.2 12.0 FINAL [facility] [place], [address] [place] [id number] 0 Phone: () - 10/24 CBC w/ auto diff PLT K/uL 113.0 364.0 211 FINAL Lia [facility] - [place], [address] [place] [id number] 0 Phone: () - 10/24 CBC w/ auto diff Dave # (ANC) K/uL 1.6 6.6 3.4 FINAL Lia [facility] - [place], [address] [place] [id number] 0 Phone: () - 10/24 CBC w/ auto diff Dave % % 43.0 74.0 62.4 FINAL [facility] - [place], [address] [place] [id number] 0 Phone: () - 10/24 CBC w/ auto diff IG % % 0.0 0.5 1.1 High FINAL L[facility] - [place], [address] [place] [id number] 0 Phone: () - 10/24 CBC w/ auto diff IG # K/uL 0.0 0.03 0.06 High FINAL Lai [facility] - [place], [address] [place] [id number] 0 Phone: () - 10/24 CBC w/ auto diff LY % % 14.0 41.0 22.2 FINAL [facility] - [place], [address] [place] [id number] 0 Phone: () - 10/24 CBC w/ auto diff MO % % 6.0 15.0 10.1 FINAL Lia [facility] - [place], [address] [place] [id number] 0 Phone: () - 10/24 CBC w/ auto diff EO % % 0.0 7.0 3.8 FINAL [facility] - [place], [address] [place] [id number] 0 Phone: () - 10/24 CBC w/ auto diff BA % % 0.0 2.0 0.4 FINAL [facility] - [place], [address] [place] [id number] 0 Phone: () - 10/24 CBC w/ auto diff LY # K/uL 0.4 3.6 1.2 FINAL Lia [facility] - [place], [address] [place] [id number] 0 Phone: () - 10/24 CBC w/ auto diff MO # K/uL 0.2 1.3 0.6 FINAL Lia [facility] - [place], [address] [place] [id number] 0 Phone: () - 10/24 CBC w/ auto diff EO # K/uL 0.0 0.6 0.2 FINAL Lia [facility] - [place], [address] [place] [id number] 0 Phone: () - 10/24 CBC w/ auto diff BA # K/uL 0.0 0.2 0.0 FINAL [facility] - [place], [address] [place] [id number] 0 Phone: () - 10/24 CBC w/ auto diff NRBC % #/100W BC 0.0 0.2 0.0 FINAL [facility] - [place], [address] [place] [id number] 0 Phone: () - 10/24 CBC w/ auto diff RBC M/uL 3.9 5.1 3.62 Low FINAL [facility] - [place], [address] [place] [id number] 0 Phone: () - 10/24 CBC w/ auto diff HCT % 35.0 48.0 35.7 FINAL [facility] - [place], [address] [place] [id number] 0 Phone: () - 10/24 CBC w/ auto diff MCV fL 80.0 104.0 98.6 FINAL [facility] - [place], [address] [place] [id number] 0 Phone: () - 10/24 CBC w/ auto diff MCH pg 26.0 35.0 33.1 FINAL [facility] - [place], [address] [place] [id number] 0 Phone: () - 10/24 CBC w/ auto diff MCHC g/dL 30.0 35.0 33.6 FINAL [facility] - [place], [address] [place] [id number] 0 Phone: () - 10/24 CBC w/ auto diff MPV fL 9.5 13.4 9.1 Low FINAL Lia Tolbert [facility] - [place], [address] [place] [id number] 0 Phone: () - 10/24 CBC w/ auto diff RDW % 11.4 16.1 12.20 FINAL Lia Tolbert [facility] - [place], [address] [place] [id number] 0 Phone: () - 11/21 CMP Album in g/dL 3.2 5.2 4.1 FINAL Lia Tilley a Oncology [facility], [address] [place] [id number] 0 Phone: () - 11/21 CMP Alkal ine phosp hatas e U/L 46.0 116.0 52 FINAL Lia [facility] - [place], [address] [place] [id number] 0 Phone: () - 11/21 CMP ALT/S GPT U/L 7.0 40.0 17 FINAL [facility], [address] [facility] [address] [id number] 0 Phone: () - 11/21 CMP AST/S GOT U/L 13.0 40.0 24 FINAL [facility] [address] [facility] [address] [id number] 0 Phone: () - 11/21 CMP BUN mg/dL 9.0 23.0 14 FINAL [place] [address] [address] [facility] [address] [id number] 0 Phone: () - 11/21 CMP Calci um mg/dL 8.7 10.4 9.3 FINAL [place] [address] [id number] 0 Phone: () - 11/21 CMP Chlor vipin mmol/L 96.0 114.0 111 FINAL [place] [address] [id number] 0 Phone: () - 11/21 CMP CO2 [...] of the 96 hour stability window. FINAL [facility], [facility] N [address] [id number] 0 Phone: () - 11/21 CMP Creat inine mg/dL 0.5 1.2 0.79 FINAL [place] [address] [id number] 0 Phone: () - 11/21 CMP GFR estim ate ml/min /1.73m ^2 79.1 GFR is calculate d using the CKD-EPI equation. FINAL [place] [address] [address] [facility] [address] [id number] 0 Phone: () - 11/21 CMP Gluco se mg/dL 73.0 126.0 86 FINAL [facility] [address] [place] [address] [id number] 0 Phone: () - 11/21 CMP Potas sium mmol/L 3.5 5.1 4.5 FINAL [facility] [address] [id number] 0 Phone: () - 11/21 CMP Sodiu m mmol/L 136.0 145.0 144 FINAL [facility] [address] [place] [address] [id number] 0 Phone: () - 11/21 CMP Bilir ubin, total mg/dL 0.3 1.2 0.3 [facility] [address] [facility] [address] [id number] 0 Phone: () - 11/21 CMP Total prote in g/dL 5.7 8.2 6.2 FINAL [facility] [address] [facility] [address] [id number] 0 Phone: () - 11/21 T4, free panel T4, free ng/dL 0.7 1.8 1.13 Test performed at [facility] on a [employer] 2000 Immunoass ay Analyzer that uses an immunoenz ymometric sandwich assay for analysis. Patient testing should not be performed using multiple methodolo gies due to analytica l variation seen between test methodolo gies. FINAL [facility] [address] [facility] [address] [id number] 0 Phone: () - 11/21 TSH w/ refle x to free T4 TSH uIU/ml 0.32 5.0 0.16 Low Test performed at [facility] on a [employer] 2000 Immunoass ay Analyzer that uses an immunoenz ymometric sandwich assay for analysis. Patient testing should not be performed using multiple methodolo gies due to analytica l variation seen between test methodolo gies. FINAL [facility], [address] [place] [address] [id number] 0 Phone: () - 11/21 CBC w/ auto diff WBC K/uL 3.0 8.9 4.1 FINAL Lia [facility] - [place], [address] [place] [id number] 0 Phone: () - 11/21 CBC w/ auto diff HGB g/dL 11.3 15.2 11.8 FINAL Lia [facility] - [place], [address] [place] [id number] 0 Phone: () - 11/21 CBC w/ auto diff PLT K/uL 113.0 364.0 223 FINAL Lia [facility] - [place], [address] [place] [id number] 0 Phone: () - 11/21 CBC w/ auto diff Dave # (ANC) K/uL 1.6 6.6 2.3 FINAL Lia angelo [facility] - [place], [address] [place] [id number] 0 Phone: () - 11/21 CBC w/ auto diff Dave % % 43.0 74.0 56.3 FINAL Lia angelo [facility] - [place], [address] [place] [id number] 0 Phone: () - 11/21 CBC w/ auto diff IG % % 0.0 0.5 0.2 FINAL Lia [facility] - [place], [address] [place] [id number] 0 Phone: () - 11/21 CBC w/ auto diff IG # K/uL 0.0 0.03 0.01 FINAL L[facility] - [place], [address] [place] [id number] 0 Phone: () - 11/21 CBC w/ auto diff LY % % 14.0 41.0 29.0 FINAL [facility] - [place], [address] [place] [id number] 0 Phone: () - 11/21 CBC w/ auto diff MO % % 6.0 15.0 10.4 FINAL Lia [facility] - [place], [address] [facility] [address] [place] [id number] 0 Phone: () - 11/21 CBC w/ auto diff EO % % 0.0 7.0 3.9 FINAL Lia [facility] - [place], [address] [facility] [address] [place] [id number] 0 Phone: () - 11/21 CBC w/ auto diff BA % % 0.0 2.0 0.2 FINAL Lia [facility] - [place], [address] [facility] [address] [place] [id number] 0 Phone: () - 11/21 CBC w/ auto diff LY # K/uL 0.4 3.6 1.2 FINAL [facility]ia [facility] - [place], [address] [facility] [address] [place] [id number] 0 Phone: () - 11/21 CBC w/ auto diff MO # K/uL 0.2 1.3 0.4 FINAL Lia angelo [facility] - [place], [address] [facility] [address] [place] [id number] 0 Phone: () - 11/21 CBC w/ auto diff EO # K/uL 0.0 0.6 0.2 FINAL Lia [facility] - [place], [address] [facility] [address] [place] [id number] 0 Phone: () - 11/21 CBC w/ auto diff BA # K/uL 0.0 0.2 0.0 FINAL Lia angel[facility] - [place], [address] [facility] [address] [place] [id number] 0 Phone: () - 11/21 CBC w/ auto diff NRBC % #/100W BC 0.0 0.2 0.0 FINAL Lia [facility] - [place], [address] [place] [id number] 0 Phone: () - 11/21 CBC w/ auto diff RBC M/uL 3.9 5.1 3.69 Low FINAL Lia angel[facility] - [place], [address] [place] [id number] 0 Phone: () - 11/21 CBC w/ auto diff HCT % 35.0 48.0 35.6 FINAL Lia angelo [facility] - [place], [address] [place] [id number] 0 Phone: () - 11/21 CBC w/ auto diff MCV fL 80.0 104.0 96.5 FINAL Lia angel[facility] - [place], [address] [place] [id number] 0 Phone: () - 11/21 CBC w/ auto diff MCH pg 26.0 35.0 32.0 FINAL Lia angelo [facility] - [place], [address] [place] [id number] 0 Phone: () - 11/21 CBC w/ auto diff MCHC g/dL 30.0 35.0 33.1 FINAL Lia angelo [facility] - [place], [address] [place] [id number] 0 Phone: () - 11/21 CBC w/ auto diff MPV fL 9.5 13.4 9.0 Low FINAL Lia angelo [facility] - [place], [address] [place] [id number] 0 Phone: () - 11/21 CBC w/ auto diff RDW % 11.4 16.1 12.40 FINAL Lia angelo [facility] - [place], [address] [place] [id number] 0 Phone: () - 12/19 CBC w/ auto diff WBC K/uL 3.0 8.9 4.9 FINAL Oziel [facility] - [place], [address] [place] [id number] 0 Phone: () - 12/19 CBC w/ auto diff HGB g/dL 11.3 15.2 11.8 FINAL Oziel Tolbert [facility] - [place], [address] [place] [id number] 0 Phone: () - 12/19 CBC w/ auto diff PLT K/uL 113.0 364.0 218 FINAL [facility]el [facility] - [place], [address] [place] [id number] 0 Phone: () - 12/19 CBC w/ auto diff Dave # (ANC) K/uL 1.6 6.6 2.7 FINAL Oziel angel[facility] - [place], [address] [place] [id number] 0 Phone: () - 12/19 CBC w/ auto diff Dave % % 43.0 74.0 55.3 FINAL Oziel Tolbert [facility] - [place], [address] [place] [id number] 0 Phone: () - 12/19 CBC w/ auto diff IG % % 0.0 0.5 0.2 FINAL Oziel [facility] - [place], [address] [place] [id number] 0 Phone: () - 12/19 CBC w/ auto diff IG # K/uL 0.0 0.03 0.01 FINAL Oziel [facility] - [place], [address] [place] [id number] 0 Phone: () - 12/19 CBC w/ auto diff LY % % 14.0 41.0 30.6 FINAL Oziel [facility] - [place], [address] [place] [id number] 0 Phone: () - 12/19 CBC w/ auto diff MO % % 6.0 15.0 9.3 FINAL Oziel [facility] - [place], [address] [place] [id number] 0 Phone: () - 12/19 CBC w/ auto diff EO % % 0.0 7.0 4.0 FINAL [facility] - [place], [address] [place] [id number] 0 Phone: () - 12/19 CBC w/ auto diff BA % % 0.0 2.0 0.6 FINAL [facility] - [place], [address] [place] [id number] 0 Phone: () - 12/19 CBC w/ auto diff LY # K/uL 0.4 3.6 1.5 FINAL [facility] - [place], [address] [place] [id number] 0 Phone: () - 12/19 CBC w/ auto diff MO # K/uL 0.2 1.3 0.5 FINAL [facility] - [place], [address] [place] [id number] 0 Phone: () - 12/19 CBC w/ auto diff EO # K/uL 0.0 0.6 0.2 FINAL [facility] - [place], [address] [place] [id number] 0 Phone: () - 12/19 CBC w/ auto diff BA # K/uL 0.0 0.2 0.0 FINAL Oz[facility] angel[facility] - [place], [address] [place] [id number] 0 Phone: () - 12/19 CBC w/ auto diff NRBC % #/100W BC 0.0 0.2 0.0 FINAL Oziel [facility] - [place], [address] [place] [id number] 0 Phone: () - 12/19 CBC w/ auto diff RBC M/uL 3.9 5.1 3.68 Low FINAL Oz[facility] - [place], [address] [place] [id number] 0 Phone: () - 12/19 CBC w/ auto diff HCT % 35.0 48.0 35.3 FINAL [facility] - [place], [address] [place] [id number] 0 Phone: () - 12/19 CBC w/ auto diff MCV fL 80.0 104.0 95.9 FINAL [facility] - [place], [address] [place] [id number] 0 Phone: () - 12/19 CBC w/ auto diff MCH pg 26.0 35.0 32.1 FINAL Oziel [facility] - [place], [address] [place] [id number] 0 Phone: () - 12/19 CBC w/ auto diff MCHC g/dL 30.0 35.0 33.4 FINAL [facility] - [place], [address] [place] [id number] 0 Phone: () - 12/19 CBC w/ auto diff MPV fL 9.5 13.4 9.1 Low FINAL [facility] - [place], [address] [address] [place] [id number] 0 Phone: () - 12/19 CBC w/ auto diff RDW % 11.4 16.1 13.30 FINAL [facility] [place], [address] [place] [phone] 0 Phone: () - 12/19 CMP Album in g/dL 3.2 5.2 4.0 FINAL [facility] [place], [address] [place] [id number] 0 Phone: () - 12/19 CMP Alkal ine phosp hatas e U/L 46.0 116.0 58 FINAL [facility]iel [facility], [address] [facility] [address] [facility] [id number] 0 Phone: () - 12/19 CMP ALT/S GPT U/L 7.0 40.0 13 FINAL Oziel angelo [facility] [address] [facility] [address] [facility] [id number] 0 Phone: () - 12/19 CMP AST/S GOT U/L 13.0 40.0 24 FINAL Oziel angelo [place] [address] [address] [facility] [address] [id number] 0 Phone: () - 12/19 CMP BUN mg/dL 9.0 23.0 18 FINAL Oziel angelo [place] [address] [id number] 0 Phone: () - 12/19 CMP Calci um mg/dL 8.7 10.4 9.7 FINAL Oziel angelo [place] [address] [id number] 0 Phone: () - 12/19 CMP Chlor vipin mmol/L 96.0 114.0 111 FINAL Oziel angelo [place] [address] [id number] 0 Phone: () - 12/19 CMP CO2 [...] 96 hour stability window. FINAL Oz[facility], [facility] [address] [facility] [address] [id number] 0 Phone: () - 12/19 CMP Creat inine mg/dL 0.5 1.2 0.82 FINAL Oziel angelo [place] [address] [address] [facility] [address] [facility] [id number] 0 Phone: () - 12/19 CMP GFR estim ate ml/min /1.73m ^2 75.6 GFR is calculate d using the CKD-EPI equation. FINAL Oziel angel[facility], [address] [facility] [address] [facility] [phone] 0 Phone: () - 12/19 CMP Gluco se mg/dL 73.0 126.0 81 FINAL Oziel angelo [facility] [address] [facility] [address] [facility] [id number] 0 Phone: () - 12/19 CMP Potas sium mmol/L 3.5 5.1 4.4 FINAL Oziel angelo [place] [address] [address] [facility] [address] [id number] 0 Phone: () - 12/19 CMP Sodiu m mmol/L 136.0 145.0 144 FINAL Oziel angelo [place] [address] [address] [facility] [address] [facility] [id number] 0 Phone: () - 12/19 CMP Bilir ubin, total mg/dL 0.3 1.2 0.4 FINAL Oziel angelo [place] [address] [address] [facility] [address] [id number] 0 Phone: () - 12/19 CMP Total prote in g/dL 5.7 8.2 6.3 FINAL Oziel angelo [place] [address] [id number] 0 Phone: () - 12/19 TSH w/ refle x to free T4 TSH uIU/ml 0.32 5.0 2.75 Test performed at [facility] on a [employer] Immun[employer] ay Analyzer that uses an immunoenz ymometric sandwich assay for analysis. Patient testing should not be performed using multiple methodharley amador due to analytica l variation seen between test methodharley amador. FINAL Oziel angelo [place] [address] [address] [facility] [address] [id number] 0 Phone: () - 01/12 [facility] other lab 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 d 01/16 CMP Album in g/dL 3.2 5.2 4.3 FINAL Oziel angelo [place] [address] [address] [facility] [address] [id number] 0 Phone: () - 11/04 /2022 CMP Alkal ine phosp hatas e U/L 46.0 116.0 64 FINAL Oziel angel[facility], [address] [facility] [address] [facility] [id number] 0 Phone: () - 01/16 CMP ALT/S GPT U/L 7.0 40.0 12 FINAL Oziel angelo [facility] [address] [facility] [address] [facility] [id number] 0 Phone: () - 01/16 CMP AST/S GOT U/L 13.0 40.0 23 FINAL Oziel angelo [place] [address] [address] [facility] [address] [id number] 0 Phone: () - 01/16 CMP BUN mg/dL 9.0 23.0 17 FINAL Oziel angelo [place] [address] [id number] 0 Phone: () - 01/16 CMP Calci um mg/dL 8.7 10.4 9.4 FINAL Oziel angelo [place] [address] [address] [facility] [address] [id number] 0 Phone: () - 01/16 CMP Chlor vipin mmol/L 96.0 114.0 108 FINAL Oziel angelo [place] [address] [id number] 0 Phone: () - 01/16 CMP CO2 [...] 96 hour stability window. FINAL [facility], [facility] [address] [facility] [address] [id number] 0 Phone: () - 01/16 CMP Creat inine mg/dL 0.5 1.2 1.07 FINAL Oziel angelo [facility] [address] [facility] [address] [id number] 0 Phone: () - 01/16 CMP GFR estim ate ml/min /1.73m ^2 54.9 Low GFR is calculate d using the CKD-EPI equation. FINAL Oziel angelo [address] [id number] 0 Phone: () - 01/16 CMP Gluco se mg/dL 73.0 126.0 84 FINAL Oziel angelo [place] [address] [id number] 0 Phone: () - 01/16 CMP Potas sium mmol/L 3.5 5.1 4.4 FINAL Oziel angelo [place] [address] [id number] 0 Phone: () - 01/16 CMP Sodiu m mmol/L 136.0 145.0 141 FINAL Oziel angelo [place] [address] [id number] 0 Phone: () - 01/16 CMP Bilir ubin, total mg/dL 0.3 1.2 0.4 FINAL Oziel angelo [place] [address] [id number] 0 Phone: () - 01/16 CMP Total prote in g/dL 5.7 8.2 6.6 FINAL Oziel angelo [place] [address] [id number] 0 Phone: () - 01/16 TSH w/ refle x to free T4 TSH uIU/ml 0.32 5.0 14.74 High Provider Alert. Notified Vicki by Lynne Flannery on 01/19/2022 at 2:55 PM.Test performed at [facility] on a [employer] ay Analyzer that uses an immunoenz ymometric sandwich assay for analysis. Patient testing should not be performed using multiple kathi amador due to analytica l variation seen between test kathi amador. FINAL Oziel angelo [place] [address] [id number] 0 Phone: () - 01/16 T4, free panel T4, free ng/dL 0.7 1.8 0.75 Test performed at [facility] on a [employer] 2000 Immunoass ay Analyzer that uses an immunoenz ymometric sandwich assay for analysis. Patient testing should not be performed using multiple methodharley amador due to analytica l variation seen between test methodharley amador. FINAL [facility] - [place], [address] [place] [phone] 0 Phone: () - 01/16 CBC w/ auto diff WBC K/uL 3.0 8.9 4.4 FINAL [facility] - [place], [address] [place] [id number] 0 Phone: () - 01/16 CBC w/ auto diff HGB g/dL 11.3 15.2 11.9 FINAL [facility] - [place], [address] [place] [id number] 0 Phone: () - 01/16 CBC w/ auto diff PLT K/uL 113.0 364.0 231 FINAL [facility] - [place], [address] [place] [id number] 0 Phone: () - 01/16 CBC w/ auto diff Dave # (ANC) K/uL 1.6 6.6 2.4 FINAL [facility] - [place], [address] [place] [id number] 0 Phone: () - 01/16 CBC w/ auto diff Dave % % 43.0 74.0 54.7 FINAL [facility] - [place], [address] [place] [id number] 0 Phone: () - 01/16 CBC w/ auto diff IG % % 0.0 0.5 0.2 FINAL [facility] - [place], [address] [place] [id number] 0 Phone: () - 01/16 CBC w/ auto diff IG # K/uL 0.0 0.03 0.01 FINAL [facility] - [place], [address] [place] [id number] 0 Phone: () - 01/16 CBC w/ auto diff LY % % 14.0 41.0 31.8 FINAL [facility] [place], [address] [place] [id number] 0 Phone: () - 01/16 CBC w/ auto diff MO % % 6.0 15.0 8.9 FINAL [facility] [place], [address] [place] [id number] 0 Phone: () - 01/16 CBC w/ auto diff EO % % 0.0 7.0 3.9 FINAL [facility] [place], [address] [facility] [address] [place] [id number] 0 Phone: () - 01/16 CBC w/ auto diff BA % % 0.0 2.0 0.5 FINAL [facility] - [place], [address] [facility] [address] [place] [id number] 0 Phone: () - 01/16 CBC w/ auto diff LY # K/uL 0.4 3.6 1.4 FINAL [facility] - [place], [address] [facility] [address] [place] [id number] 0 Phone: () - 01/16 CBC w/ auto diff MO # K/uL 0.2 1.3 0.4 FINAL [facility] - [place], [address] [place] [id number] 0 Phone: () - 01/16 CBC w/ auto diff EO # K/uL 0.0 0.6 0.2 FINAL [facility] - [place], [address] [place] [id number] 0 Phone: () - 01/16 CBC w/ auto diff BA # K/uL 0.0 0.2 0.0 FINAL [facility] - [place], [address] [place] [id number] 0 Phone: () - 01/16 CBC w/ auto diff NRBC % #/100W BC 0.0 0.2 0.0 FINAL [facility] - [place], [address] [place] [id number] 0 Phone: () - 01/16 CBC w/ auto diff RBC M/uL 3.9 5.1 3.69 Low FINAL [facility] - [place], [address] [place] [id number] 0 Phone: () - 01/16 CBC w/ auto diff HCT % 35.0 48.0 35.0 FINAL [facility] - [place], [address] [place] [id number] 0 Phone: () - 01/16 CBC w/ auto diff MCV fL 80.0 104.0 94.9 FINAL [facility] - [place], [address] [place] [id number] 0 Phone: () - 01/16 CBC w/ auto diff MCH pg 26.0 35.0 32.2 FINAL [facility] - [place], [address] [place] [id number] 0 Phone: () - 01/16 CBC w/ auto diff MCHC g/dL 30.0 35.0 34.0 FINAL [facility] - [place], [address] [place] [id number] 0 Phone: () - 01/16 CBC w/ auto diff MPV fL 9.5 13.4 8.8 Low FINAL [facility] - [place], [address] [place] [id number] 0 Phone: () - 01/16 CBC w/ auto diff RDW % 11.4 16.1 13.90 FINAL [facility] [place], [address] [facility] [address] [place] [id number] 0 Phone: () - 02/20 TSH w/ refle x to free T4 TSH uIU/ml 0.32 5.0 Sent to Referen ce Lab. Hard copy results availab le only. Test performed at [facility] on a [employer] 2000 Immunoass ay Analyzer that uses an immunoenz ymometric sandwich assay for analysis. Patient testing should not be performed using multiple methodolo gies due to analytica l variation seen between test methodolo gies. FINAL [facility] - [place], [address] [place] [id number] 0 Phone: () - 02/20 TSH uIU/mL 0.35 4.94 8.74 High In Adults, TSH values between 5.00 and 10.00 uIU/ml do notnecess arily indicate the presence of Hypothyro idism.Cor relation with clinical findings such as presence of goiterand /or Thyropero xidase (TPO) Antibody may be helpful. Formore informati on please refer to MAYELA 2004; 291: 228-238.T est Performed by:[facility] [address] - [facility], [place] [id number] e : FINAL Oziel Box 02/20 T4, free panel T4, free ng/dL 0.7 1.8 1.01 Test Performed by:[facility] [address] - [facility], [place] [address]Jaqu e : FINAL Oziel Box 05/08 CBC w/ auto diff WBC K/uL 3.0 8.9 7.3 FINAL [facility] - [place], [address] [facility] [address] [address] [place] [id number] 0 Phone: () - 05/08 CBC w/ auto diff HGB g/dL 11.3 15.2 11.0 Low FINAL [facility] - [place], [address] [facility] [address] [place] [id number] 0 Phone: () - 05/08 CBC w/ auto diff PLT K/uL 113.0 364.0 210 FINAL [facility] - [place], [address] [place] [id number] 0 Phone: () - 05/08 CBC w/ auto diff Dave # (ANC) K/uL 1.6 6.6 3.7 FINAL [facility] - [place], [address] [place] [id number] 0 Phone: () - 05/08 CBC w/ auto diff Dave % % 43.0 74.0 51.1 FINAL [facility] - [place], [address] [place] [id number] 0 Phone: () - 05/08 CBC w/ auto diff IG % % 0.0 0.5 0.3 FINAL [facility] - [place], [address] [place] [id number] 0 Phone: () - 05/08 CBC w/ auto diff IG # K/uL 0.0 0.03 0.02 FINAL [facility] - [place], [address] [place] [id number] 0 Phone: () - 05/08 CBC w/ auto diff LY % % 14.0 41.0 37.9 FINAL [facility] - [place], [address] [place] [id number] 0 Phone: () - 05/08 CBC w/ auto diff MO % % 6.0 15.0 9.2 FINAL [facility] - [place], [address] [place] [id number] 0 Phone: () - 05/08 CBC w/ auto diff EO % % 0.0 7.0 1.2 FINAL [facility] - [place], [address] [place] [id number] 0 Phone: () - 05/08 CBC w/ auto diff BA % % 0.0 2.0 0.3 FINAL [facility] - [place], [address] [place] [id number] 0 Phone: () - 05/08 CBC w/ auto diff LY # K/uL 0.4 3.6 2.8 FINAL [facility] - [place], [address] [place] [id number] 0 Phone: () - 05/08 CBC w/ auto diff MO # K/uL 0.2 1.3 0.7 FINAL [facility] - [place], [address] [place] [id number] 0 Phone: () - 05/08 CBC w/ auto diff EO # K/uL 0.0 0.6 0.1 FINAL [facility] - [place], [address] [place] [id number] 0 Phone: () - 05/08 CBC w/ auto diff BA # K/uL 0.0 0.2 0.0 FINAL [facility] - [place], [address] [place] [id number] 0 Phone: () - 05/08 CBC w/ auto diff NRBC % #/100W BC 0.0 0.2 0.0 FINAL [facility] - [place], [address] [place] [id number] 0 Phone: () - 05/08 CBC w/ auto diff RBC M/uL 3.9 5.1 3.27 Low FINAL [facility] - [place], [address] [place] [id number] 0 Phone: () - 05/08 CBC w/ auto diff HCT % 35.0 48.0 32.1 Low FINAL [facility] - [place], [address] [place] [id number] 0 Phone: () - 05/08 CBC w/ auto diff MCV fL 80.0 104.0 98.2 FINAL [facility] - [place], [address] [place] [id number] 0 Phone: () - 05/08 CBC w/ auto diff MCH pg 26.0 35.0 33.6 FINAL [facility] - [place], [address] [place] [id number] 0 Phone: () - 05/08 CBC w/ auto diff MCHC g/dL 30.0 35.0 34.3 FINAL [facility] - [place], [address] [place] [id number] 0 Phone: () - 05/08 CBC w/ auto diff MPV fL 9.5 13.4 9.4 Low FINAL [facility] - [place], [address] [place] [id number] 0 Phone: () - 05/08 CBC w/ auto diff RDW % 11.4 16.1 13.10 FINAL [facility] - [place], [address] [place] [id number] 0 Phone: () - 05/08 CMP Album in g/dL 3.2 5.2 4.0 FINAL [facility], [address] [place] [id number] 0 Phone: () - 05/08 CMP Alkal ine phosp hatas e U/L 46.0 116.0 56 FINAL [facility], [address] [place] [id number] 0 Phone: () - 05/08 CMP ALT/S GPT U/L 7.0 40.0 17 FINAL [facility], [address] [place] [id number] 0 Phone: () - 05/08 CMP AST/S GOT U/L 13.0 40.0 21 FINAL [facility], [address] [facility] [address] [facility] [id number] 0 Phone: () - 05/08 CMP BUN mg/dL 9.0 23.0 22 FINAL Oziel angelo [place] [address] [address] [facility] [address] [facility] [id number] 0 Phone: () - 05/08 CMP Calci um mg/dL 8.7 10.4 9.3 FINAL Oziel angelo [place] [address] [address] [facility] [address] [facility] [id number] 0 Phone: () - 05/08 CMP Chlor vipin mmol/L 96.0 114.0 112 FINAL Oziel angelo [place] [address] [address] [facility] [address] [facility] [id number] 0 Phone: () - 05/08 CMP CO2 [...] 96 hour stability window. FINAL Oziel angelo [place] [address] [id number] 0 Phone: () - 05/08 CMP Creat inine mg/dL 0.5 1.2 0.86 FINAL Oziel angelo [place] [address] [id number] 0 Phone: () - 05/08 CMP GFR estim ate ml/min /1.73m ^2 71.2 GFR is calculate d using the CKD-EPI equation. FINAL Oziel angelo [place] [address] [id number] 0 Phone: () - 05/08 CMP Gluco se mg/dL 73.0 126.0 77 FINAL Oziel angelo [facility] [address] [facility] [address] [facility] [id number] 0 Phone: () - 05/08 CMP Potas sium mmol/L 3.5 5.1 3.9 FINAL Oz[facility], [address] [facility] [id number] 0 Phone: () - 05/08 CMP Sodiu m mmol/L 136.0 145.0 148 High FINAL Oziel angelo [facility], [address] [facility] [address] [facility] [id number] 0 Phone: () - 05/08 CMP Bilir ubin, total mg/dL 0.3 1.2 0.4 FINAL Oz[facility] angelo [facility], [address] [facility] [id number] 0 Phone: () - 05/08 CMP Total prote in g/dL 5.7 8.2 6.1 FINAL Oziel angelo [facility] [address] [facility] [address] [facility] [address] [facility] [id number] 0 Phone: () - 05/08 TSH w/ refle x to free T4 TSH uIU/ml 0.32 5.0 1.36 Test performed at [facility] on a [employer] ay Analyzer that uses an immunoenz ymometric sandwich assay for analysis. Patient testing should not be performed using multiple methodolo ginaun due to analytica l variation seen between test methodolo marjorie. FINAL Oziel angelo [facility], [address] [facility] [address] [facility] [id number] 0 Phone: () - 07/23 [facility] other lab 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 d 07/23 [facility] other lab 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 d 11/03 CBC w/ auto diff WBC K/uL 3.0 8.9 4.7 FINAL [facility] - [place] , [address] [facility] [address] [facility] [place] [id number] 0 Phone: () - 11/03 CBC w/ auto diff HGB g/dL 11.3 15.2 11.6 FINAL [facility] - [place] , [address] [facility] [address] [facility] [place] [id number] 0 Phone: () - 11/03 CBC w/ auto diff PLT K/uL 113.0 364.0 248 FINAL [facility] - [place] , [address] [place] [id number] 0 Phone: () - 11/03 CBC w/ auto diff Dave # (ANC) K/uL 1.6 6.6 2.9 FINAL [facility] - [place], [address] [place] [id number] 0 Phone: () - 11/03 CBC w/ auto diff Dave % % 43.0 74.0 60.9 FINAL [facility] - [place], [address] [place] [id number] 0 Phone: () - 11/03 CBC w/ auto diff IG % % 0.0 0.5 0.4 FINAL [facility] - [place], [address] [place] [id number] 0 Phone: () - 11/03 CBC w/ auto diff IG # K/uL 0.0 0.03 0.02 FINAL [facility] - [place], [address] [place] [id number] 0 Phone: () - 11/03 CBC w/ auto diff LY % % 14.0 41.0 26.8 FINAL [facility] - [place], [address] [place] [id number] 0 Phone: () - 11/03 CBC w/ auto diff MO % % 6.0 15.0 8.5 FINAL [facility] - [place], [address] [place] [id number] 0 Phone: () - 11/03 CBC w/ auto diff EO % % 0.0 7.0 3.0 FINAL [facility] - [place], [address] [place] [id number] 0 Phone: () - 11/03 CBC w/ auto diff BA % % 0.0 2.0 0.4 FINAL [facility] - [place], [address] [place] [id number] 0 Phone: () - 11/03 CBC w/ auto diff LY # K/uL 0.4 3.6 1.3 FINAL [facility] - [place], [address] [place] [id number] 0 Phone: () - 11/03 CBC w/ auto diff MO # K/uL 0.2 1.3 0.4 FINAL [facility] - [place], [address] [place] [id number] 0 Phone: () - 11/03 CBC w/ auto diff EO # K/uL 0.0 0.6 0.1 FINAL [facility] - [place], [address] [place] [id number] 0 Phone: () - 11/03 CBC w/ auto diff BA # K/uL 0.0 0.2 0.0 FINAL [facility] - [place], [address] [place] [id number] 0 Phone: () - 11/03 CBC w/ auto diff NRBC % #/100W BC 0.0 0.2 0.0 FINAL [facility] - [place], [address] [place] [id number] 0 Phone: () - 11/03 CBC w/ auto diff RBC M/uL 3.9 5.1 3.52 Low FINAL [facility] - [place], [address] [place] [id number] 0 Phone: () - 11/03 CBC w/ auto diff HCT % 35.0 48.0 34.2 Low FINAL [facility] - [place], [address] [place] [id number] 0 Phone: () - 11/03 CBC w/ auto diff MCV fL 80.0 104.0 97.2 FINAL [facility] [facility] [place], [address] [place] [id number] 0 Phone: () - 11/03 CBC w/ auto diff MCH pg 26.0 35.0 33.0 FINAL [facility] - [place], [address] [place] [id number] 0 Phone: () - 11/03 CBC w/ auto diff MCHC g/dL 30.0 35.0 33.9 FINAL [facility] - [place], [address] [place] [id number] 0 Phone: () - 11/03 CBC w/ auto diff MPV fL 9.5 13.4 8.7 Low FINAL [facility] - [place], [address] [place] [id number] 0 Phone: () - 11/03 CBC w/ auto diff RDW % 11.4 16.1 14.40 FINAL [facility] - [place], [address] [place] [id number] 0 Phone: () - 11/03 CMP Album in g/dL 3.2 5.2 4.1 FINAL Oziel angelo [facility], [address] [place] [id number] 0 Phone: () - 11/03 CMP Alkal ine phosp hatas e U/L 46.0 116.0 59 FINAL [facility], [address] [place] [id number] 0 Phone: () - 11/03 CMP ALT/S GPT U/L 7.0 40.0 <7 FINAL Oz[facility], [address] [place] [id number] 0 Phone: () - 11/03 CMP AST/S GOT U/L 13.0 40.0 24 FINAL [facility], [address] [place] [id number] 0 Phone: () - 11/03 CMP BUN mg/dL 9.0 23.0 16.0 FINAL Oziel angelo [place] [address] [address] [facility] [address] [facility] [id number] 0 Phone: () - 11/03 CMP Calci um mg/dL 8.7 10.4 9.1 FINAL Oziel angelo [facility] [address] [facility] [address] [facility] [id number] 0 Phone: () - 11/03 CMP Chlor vipin mmol/L 96.0 114.0 105 FINAL Oziel angelo [place] [address] [address] [facility] [address] [facility] [id number] 0 Phone: () - 11/03 CMP CO2 [...] 96 hour stability window. FINAL Oziel angelo [place] [address] [id number] 0 Phone: () - 11/03 CMP Creat inine mg/dL 0.5 1.2 0.88 FINAL Oziel angelo [place] [address] [id number] 0 Phone: () - 11/03 CMP GFR estim ate ml/min /1.73m ^2 69.0 GFR is calculate d using the CKD-EPI equation. FINAL Oziel angelo [place] [address] [address] [facility] [address] [facility] [id number] 0 Phone: () - 11/03 CMP Gluco se mg/dL 73.0 126.0 105 FINAL Oziel angelo [place] [address] [address] [facility] [address] [facility] [id number] 0 Phone: () - 11/03 CMP Potas sium mmol/L 3.5 5.1 4.4 FINAL Oziel angelo [place] [address] [address] [facility] [address] [facility] [address] [facility] [id number] 0 Phone: () - 11/03 CMP Sodiu m mmol/L 136.0 145.0 139 FINAL [facility] - [place], [address] [facility] [id number] 0 Phone: () - 11/03 CMP Bilir ubin, total mg/dL 0.3 1.2 0.6 FINAL Oz[facility] angel[facility], [address] [facility] [id number] 0 Phone: () - 11/03 CMP Total prote in g/dL 5.7 8.2 6.6 FINAL [facility], [address] [facility] [id number] 0 Phone: () - 02/08 CBC w/ auto diff WBC K/uL 3.0 8.9 4.7 FINAL [facility] - [place], [address] [facility] [id number] 0 Phone: () - 02/08 CBC w/ auto diff HGB g/dL 11.3 15.2 11.0 Low FINAL [facility] [place] le, [address] [place] [id number] 0 Phone: () - 02/08 CBC w/ auto diff PLT K/uL 113.0 364.0 194 FINAL Oziel angel[facility] - [place], [address] [place] [phone] 0 Phone: () - 02/08 CBC w/ auto diff Dave # (ANC) K/uL 1.6 6.6 2.7 FINAL [facility] angel[facility] - [place], [address] [place] [id number] 0 Phone: () - 02/08 CBC w/ auto diff Dave % % 43.0 74.0 57.2 FINAL Oziel angelo [facility] - [place], [address] [place] [id number] 0 Phone: () - 02/08 CBC w/ auto diff IG % % 0.0 0.5 0.4 FINAL Oziel Tilleyot a [facility] - [place], [address] [place] [id number] 0 Phone: () - 02/08 CBC w/ auto diff IG # K/uL 0.0 0.03 0.02 FINAL [facility]iel [facility] - [place], [address] [place] [id number] 0 Phone: () - 02/08 CBC w/ auto diff LY % % 14.0 41.0 31.6 FINAL [facility]iel T[facility]ley[facility] - [place], [address] [place] [id number] 0 Phone: () - 02/08 CBC w/ auto diff MO % % 6.0 15.0 8.0 FINAL [facility]iel Tilley[facility] a [facility] - [place], [address] [place] [id number] 0 Phone: () - 02/08 CBC w/ auto diff EO % % 0.0 7.0 2.2 FINAL [facility]iel T[facility] - [place], [address] [place] [id number] 0 Phone: () - 02/08 CBC w/ auto diff BA % % 0.0 2.0 0.6 FINAL Oziel T[facility] - [place], [address] [place] [id number] 0 Phone: () - 02/08 CBC w/ auto diff LY # K/uL 0.4 3.6 1.5 FINAL Oziel [facility]ley[facility] - [place], [address] [place] [id number] 0 Phone: () - 02/08 CBC w/ auto diff MO # K/uL 0.2 1.3 0.4 FINAL [facility]iel [facility] - [place], [address] [place] [id number] 0 Phone: () - 02/08 CBC w/ auto diff EO # K/uL 0.0 0.6 0.1 FINAL Oziel [facility] - [place], [address] [place] [id number] 0 Phone: () - 02/08 CBC w/ auto diff BA # K/uL 0.0 0.2 0.0 FINAL Oziel [facility] - [place], [address] [place] [id number] 0 Phone: () - 02/08 CBC w/ auto diff NRBC % #/100W BC 0.0 0.2 0.0 FINAL [facility] - [place], [address] [place] [id number] 0 Phone: () - 02/08 CBC w/ auto diff RBC M/uL 3.9 5.1 3.26 Low FINAL [facility]iel T[facility]ley[facility] gi [facility] - [place], [address] [place] [id number] 0 Phone: () - 02/08 CBC w/ auto diff HCT % 35.0 48.0 32.9 Low FINAL [facility] angel[facility] - [place], [address] [place] [id number] 0 Phone: () - 02/08 CBC w/ auto diff MCV fL 80.0 104.0 100.9 FINAL [facility] - [place], [address] [place] [id number] 0 Phone: () - 02/08 CBC w/ auto diff MCH pg 26.0 35.0 33.7 FINAL [facility] - [place], [address] [place] [id number] 0 Phone: () - 02/08 CBC w/ auto diff MCHC g/dL 30.0 35.0 33.4 FINAL [facility] - [place], [address] [place] [id number] 0 Phone: () - 02/08 CBC w/ auto diff MPV fL 9.5 13.4 9.0 Low FINAL [facility], [address] [facility] [place] [id number] 0 Phone: () - 02/08 CBC w/ auto diff RDW % 11.4 16.1 13.70 FINAL Oziel angelo [facility] [place], [address] [facility] [place] [id number] 0 Phone: () - 02/08 TSH w/ refle x to free T4 TSH uIU/ml 0.32 5.0 3.61 Test performed at [facility] on a [employer] Immun[employer] ay Analyzer that uses an immunoenz ymometric sandwich assay for analysis. Patient testing should not be performed using multiple methodolo gies due to analytica l variation seen between test methodolo gies. FINAL Oziel angelo [facility], [address] [place] [phone] 0 Phone: () - 02/08 CMP Album in g/dL 3.2 5.2 4.0 FINAL Oziel angelo [facility] [address] [place] [id number] 0 Phone: () - 02/08 CMP Alkal ine phosp hatas e U/L 46.0 116.0 83 FINAL Oziel angelo [place] [address] [place] [phone] Phone: () - 02/08 CMP ALT/S GPT U/L 7.0 40.0 <7 FINAL Oziel angelo [place] [address] [facility] [id number] 0 Phone: () - 02/08 CMP AST/S GOT U/L 13.0 40.0 23 FINAL Oziel angelo [facility] [address] [place] [address] [id number] 0 Phone: () - 02/08 CMP BUN mg/dL 9.0 23.0 17.0 FINAL Oziel angelo [place] [address] [facility] [id number] 0 Phone: () - 02/08 CMP Calci um mg/dL 8.7 10.4 8.8 FINAL Oziel angelo [facility] [address] [id number] Phone: () - 02/08 CMP Chlor vipin mmol/L 96.0 114.0 109 FINAL Oziel angelo [place] [address] [id number] 0 Phone: () - 02/08 CMP CO2 [...] 96 hour stability window. FINAL Oziel angelo [place] [address] [id number] 0 Phone: () - 02/08 CMP Creat inine mg/dL 0.5 1.2 0.86 FINAL Oziel angelo [place] [address] [id number] 0 Phone: () - 02/08 CMP GFR estim ate ml/min /1.73m ^2 70.9 GFR is calculate d using the CKD-EPI equation. FINAL Oziel angelo [place] [address] [id number] 0 Phone: () - 02/08 CMP Gluco se mg/dL 73.0 126.0 84 FINAL Oziel angelo [facility] [address] [id number] 0 Phone: () - 02/08 CMP Potas sium mmol/L 3.5 5.1 4.5 FINAL Oziel angelo [facility] [address] [id number] 0 Phone: () - 02/08 CMP Sodiu m mmol/L 136.0 145.0 141 FINAL Oziel angelo [facility] [address] [facility] [id number] 0 Phone: () - 02/08 CMP Bilir ubin, total mg/dL 0.3 1.2 0.3 FINAL Oziel Tolbert a [facility], [address] [facility] [id number] 0 Phone: () - 02/08 CMP Total prote in g/dL 5.7 8.2 6.1 FINAL Oziel Tilley a [facility], [address] [facility] [id number] 0 Phone: () - 06/06 Misc other lab 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 d 08/09 CMP Album in g/dL 3.5 5.0 4.1 FINAL Oziel Box * [facility], [address] [facility] [id number] 0 08/09 CMP Alkal ine phosp hatas e U/L 36.0 125.0 66 FINAL Oziel Box * [facility], [address] [facility] [id number] 0 08/09 CMP ALT/S GPT U/L 0.0 34.0 6 FINAL Oziel Box * [facility], [address] [facility] [id number] 0 08/09 CMP AST/S GOT U/L 14.0 36.0 28 FINAL Oziel Box * [facility], [address] [facility] [id number] 0 08/09 CMP BUN mg/dL 7.0 17.0 17.0 FINAL Oziel Box * [facility], [address] [facility] [id number] 0 08/09 CMP Calci um mg/dL 8.4 10.2 9.4 FINAL Oziel Box * [facility], [address] [facility] [id number] 0 08/09 CMP Chlor vipin mmol/L 96.0 107.0 106 FINAL [facility], [address] [facility] [id number] 0 08/09 CMP CO2 mmol/L 22.0 30.0 [...] the 96 hour stability window. FINAL [facility], [facility] [address] [id number] 0 08/09 CMP Creat inine mg/dL 0.66 1.25 0.70 FINAL Oziel Tilley gi [facility], [address] [facility] [id number] 0 08/09 CMP GFR estim ate ml/min /1.73m ^2 90.4 GFR is calculate d using the CKD-EPI equation. FINAL [facility], [address] [facility] [id number] 0 08/09 CMP Gluco se mg/dL 74.0 100.0 87 FINAL [facility], [address] [facility] [id number] 0 08/09 CMP Potas sium mmol/L 3.5 5.1 4.2 FINAL [facility], [address] [facility] [id number] 0 08/09 CMP Sodiu m mmol/L 137.0 145.0 139 FINAL Oziel Box * [place] [place], [address] [facility] [id number] 0 08/09 CMP Bilir ubin, total mg/dL 0.2 1.3 0.3 FINAL Oziel Box * [place] [facility] [place], [address] [facility] [id number] 0 08/09 CMP Total prote in g/dL 6.3 8.2 6.7 FINAL Oziel Box * [place] [facility] [place], [address] [facility] [id number] 08/09 CBC w/ auto diff WBC K/uL 3.0 8.9 3.5 FINAL Oziel T[facility]ley[facility] - [place], [address] [place] [id number] 0 Phone: () - 08/09 CBC w/ auto diff HGB g/dL 11.3 15.2 11.7 FINAL [facility] - [place], [address] [place] [id number] 0 Phone: () - 08/09 CBC w/ auto diff PLT K/uL 113.0 364.0 196 FINAL Oziel [facility] - [place], [address] [place] [id number] 0 Phone: () - 08/09 CBC w/ auto diff Dave # (ANC) K/uL 1.6 6.6 1.9 FINAL Oziel T[facility] - [place], [address] [place] [id number] 0 Phone: () - 08/09 CBC w/ auto diff Dave % % 43.0 74.0 52.2 FINAL [facility] - [place], [address] [place] [id number] 0 Phone: () - 08/09 CBC w/ auto diff IG % % 0.0 0.5 0.3 FINAL [facility] - [place], [address] [place] [id number] 0 Phone: () - 08/09 CBC w/ auto diff IG # K/uL 0.0 0.03 0.01 FINAL [facility] - [place], [address] [place] [id number] 0 Phone: () - 08/09 CBC w/ auto diff LY % % 14.0 41.0 35.0 FINAL [facility] - [place], [address] [place] [id number] 0 Phone: () - 08/09 CBC w/ auto diff MO % % 6.0 15.0 9.6 FINAL [facility] T[facility] - [place], [address] [place] [id number] 0 Phone: () - 08/09 CBC w/ auto diff EO % % 0.0 7.0 2.3 FINAL Oziel T[facility]ley[facility] - [place], [address] [place] [id number] 0 Phone: () - 08/09 CBC w/ auto diff BA % % 0.0 2.0 0.6 FINAL Oziel T[facility]ley[facility] - [place], [address] [place] [id number] 0 Phone: () - 08/09 CBC w/ auto diff LY # K/uL 0.4 3.6 1.2 FINAL Oz[facility] T[facility] - [place], [address] [place] [id number] 0 Phone: () - 08/09 CBC w/ auto diff MO # K/uL 0.2 1.3 0.3 FINAL Oziel Tilley[facility] a [facility] - [place], [address] [place] [id number] 0 Phone: () - 08/09 CBC w/ auto diff EO # K/uL 0.0 0.6 0.1 FINAL Oziel angelo [facility] - [place], [address] [place] [id number] 0 Phone: () - 08/09 CBC w/ auto diff BA # K/uL 0.0 0.2 0.0 FINAL Oziel angelo [facility] - [place], [address] [place] [id number] 0 Phone: () - 08/09 CBC w/ auto diff NRBC % #/100W BC 0.0 0.2 0.0 FINAL Oz[facility] angel[facility] - [place], [address] [place] [id number] 0 Phone: () - 08/09 CBC w/ auto diff RBC M/uL 3.9 5.1 3.51 Low FINAL Oz[facility] angel[facility] - [place], [address] [place] [id number] 0 Phone: () - 08/09 CBC w/ auto diff HCT % 35.0 48.0 35.6 FINAL Oz[facility] angel[facility] - [place], [address] [place] [id number] 0 Phone: () - 08/09 CBC w/ auto diff MCV fL 80.0 104.0 101.4 FINAL Oz[facility] angel[facility] - [place], [address] [place] [id number] 0 Phone: () - 08/09 CBC w/ auto diff MCH pg 26.0 35.0 33.3 FINAL Oziel Tilleyot gi [facility] - [place], [address] [place] [id number] 0 Phone: () - 08/09 CBC w/ auto diff MCHC g/dL 30.0 35.0 32.9 FINAL Oziel Tilley[facility] a [facility] - [place], [address] [place] [id number] 0 Phone: () - 08/09 CBC w/ auto diff MPV fL 9.5 13.4 9.3 Low FINAL Oziel Box [place] [facility] [place], [address] [place] [id number] 0 Phone: () - 08/09 CBC w/ auto diff RDW % 11.4 16.1 13.20 FINAL Oziel Box [place] [facility] [place], [address] [place] [id number] 0 Phone: () - 08/09 TSH w/ refle x to free T4 TSHR- v mIU/ml 0.47 4.68 0.74 FINAL Oziel Box * [place] [facility] [place], [address] [facility] [place] [id number] 0 02/13 CBC w/ auto diff WBC K/uL 3.0 8.9 4.7 FINAL Oziel FREEMAN [facility] - [place], [address] [place] [id number] 0 02/13 CBC w/ auto diff HGB g/dL 11.3 15.2 10.4 Low FINAL Oziel FREEMAN [facility] - [place], [address] [place] [id number] 0 02/13 CBC w/ auto diff PLT K/uL 113.0 364.0 252 FINAL Oziel FREEMAN [facility] - [place], [address] [place] [id number] 0 02/13 CBC w/ auto diff Dave # (ANC) K/uL 1.6 6.6 2.4 FINAL Oziel FRE[facility] - [place], [address] [place] [id number] 0 02/13 CBC w/ auto diff Dave % % 43.0 74.0 51.3 FINAL Oziel FREEM[facility] - [place], [address] [place] [id number] 0 02/13 CBC w/ auto diff IG % % 0.0 0.5 0.2 FINAL Oziel FRE[facility] - [place], [address] [place] [id number] 0 02/13 CBC w/ auto diff IG # K/uL 0.0 0.03 0.01 FINAL Oziel FREEM[facility] - [place], [address] [place] [id number] 0 02/13 CBC w/ auto diff LY % % 14.0 41.0 33.5 FINAL Oziel FREEMAN [facility] - [place], [address] [place] [id number] 0 02/13 CBC w/ auto diff MO % % 6.0 15.0 8.8 FINAL Oziel FREEM[facility] - [place], [address] [place] [id number] 0 02/13 CBC w/ auto diff EO % % 0.0 7.0 5.6 FINAL Oziel FREEMAN [facility] - [place], [address] [place] [id number] 0 02/13 CBC w/ auto diff BA % % 0.0 2.0 0.6 FINAL Oziel FREEMAN [facility] - [place], [address] [place] [id number] 0 02/13 CBC w/ auto diff LY # K/uL 0.4 3.6 1.6 FINAL Oziel FREEM[facility] - [place], [address] [place] [id number] 0 02/13 CBC w/ auto diff MO # K/uL 0.2 1.3 0.4 FINAL Oziel FRE[facility] - [place], [address] [place] [id number] 0 02/13 CBC w/ auto diff EO # K/uL 0.0 0.6 0.3 FINAL Oziel FRE[facility] - [place], [address] [place] [id number] 0 02/13 CBC w/ auto diff BA # K/uL 0.0 0.2 0.0 FINAL Oziel FRE[facility] - [place], [address] [place] [id number] 0 02/13 CBC w/ auto diff NRBC % #/100W BC 0.0 0.2 0.0 FINAL Oziel FRE[facility] - [place], [address] [place] [id number] 0 02/13 CBC w/ auto diff RBC M/uL 3.9 5.1 3.24 Low FINAL Oziel FRE[facility] - [place], [address] [place] [id number] 0 02/13 CBC w/ auto diff HCT % 35.0 48.0 32.3 Low FINAL Oziel FREEM[facility] - [place], [address] [place] [id number] 0 02/13 CBC w/ auto diff MCV fL 80.0 104.0 99.7 FINAL Oziel F[facility] - [place], [address] [place] [id number] 0 02/13 CBC w/ auto diff MCH pg 26.0 35.0 32.1 FINAL Oziel F[facility] - [place], [address] [place] [id number] 0 02/13 CBC w/ auto diff MCHC g/dL 30.0 35.0 32.2 FINAL Oziel F[facility] - [place], [address] [place] [id number] 0 02/13 CBC w/ auto diff MPV fL 9.5 13.4 9.1 Low FINAL Oziel FRE[facility] - [place], [address] [place] [id number] 0 02/13 CBC w/ auto diff RDW % 11.4 16.1 13.70 FINAL Oziel FRE[facility] - [place], [address] [place] [id number] 0 02/13 CMP Album in g/dL 3.5 5.0 3.5 FINAL Oziel Box * [place] [facility] [place], [address] [facility] [id number] 0 02/13 CMP Alkal ine phosp hatas e U/L 36.0 125.0 75 FINAL Oziel Box * [place] [facility] [place], [address] [facility] [id number] 0 02/13 CMP ALT/S GPT U/L 0.0 34.0 <4 Repeate d FINAL Oziel Box * [place] [facility] [place], [address] [facility] [id number] 0 02/13 CMP AST/S GOT U/L 14.0 36.0 17 FINAL Oziel Box * [place] [facility] [place], [address] [facility] [id number] 0 02/13 CMP BUN mg/dL 7.0 17.0 18.0 High FINAL Oziel Card [place] [facility], [address] [facility] [id number] 0 02/13 CMP Calci um mg/dL 8.4 10.2 9.2 FINAL Oziel FREEMAN [facility], [address] [facility] [id number] 0 02/13 CMP Chlor vipin mmol/L 96.0 107.0 109 High FINAL [place] Card [place] [facility], [address] [facility] [id number] 0 02/13 CMP CO2 mmol/L 22.0 30.0 [...] hour stability window. FINAL Oziel FREEMAN [facility], [address] [facility] [id number] 0 02/13 CMP Creat inine mg/dL 0.66 1.25 0.80 FINAL [place] Card [place] [facility], [address] [facility] [id number] 0 02/13 CMP GFR estim ate ml/min /1.73m ^2 76.8 GFR is calculate d using the CKD-EPI equation. FINAL [place] Card [place] [facility], [address] [facility] [id number] 0 02/13 CMP Gluco se mg/dL 74.0 100.0 84 FINAL [place] [facility], [address] [facility] [id number] 0 02/13 CMP Potas sium mmol/L 3.5 5.1 4.4 FINAL Oziel Box * [place] [facility] [place], [address] [facility] [id number] 0 02/13 CMP Sodiu m mmol/L 137.0 145.0 137 FINAL Oziel Box * [place] [facility] [place], [address] [facility] [id number] 0 02/13 CMP Bilir ubin, total mg/dL 0.2 1.3 0.5 FINAL Oziel Box * [place] [facility] [place], [address] [facility] [id number] 0 02/13 CMP Total prote in g/dL 6.3 8.2 6.2 Low FINAL Oziel Box * [place] [facility] [place], [address] [facility] [id number] 0 04/03 [facility] other lab 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 d 08/14 CMP Album in g/dL 3.5 5.0 3.7 FINAL Oziel Box * [facility] , [address] [facility] [id number] 0 08/14 CMP Alkal ine phosp hatas e U/L 36.0 125.0 68 FINAL Oziel Box * [place] [facility] [place] [facility] , [address] [facility] [id number] 0 08/14 CMP ALT/S GPT U/L 0.0 34.0 10 FINAL Oziel Box * [place] [facility] [place] [facility] , [address] [facility] [id number] 0 08/14 CMP AST/S GOT U/L 14.0 36.0 28 FINAL Oziel Box * [facility] , [address] [facility] [id number] 0 08/14 CMP BUN mg/dL 7.0 17.0 25.0 High FINAL Oziel Box * [facility] , [address] [facility] [address] [id number] 0 08/14 CMP Calci um mg/dL 8.4 10.2 8.7 FINAL Oziel Box * [facility] , [address] [facility] [address] [id number] 0 08/14 CMP Chlor vipin mmol/L 96.0 107.0 109 High FINAL Oziel Box * [facility] , [facility] [address] [id number] 0 08/14 CMP CO2 mmol/L 22.0 30.0 [...] hour stability window. FINAL Oziel Box * [facility] , [facility] [address] [id number] 0 08/14 CMP Creat inine mg/dL 0.66 1.25 0.90 FINAL Oziel Box * [facility] , [address] [facility] [address] [id number] 0 08/14 CMP GFR estim ate ml/min /1.73m ^2 66.5 GFR is calculate d using the CKD-EPI equation. FINAL Oziel Box * [facility] , [facility] [address] [id number] 0 08/14 CMP Gluco se mg/dL 74.0 100.0 95 FINAL Oziel Box * [facility] , [address] [facility] [address] [id number] 0 08/14 CMP Potas sium mmol/L 3.5 5.1 4.5 FINAL Oziel Box * [facility] , [address] [facility] [id number] 0 08/14 CMP Sodiu m mmol/L 137.0 145.0 137 FINAL Oziel Box * [facility] , [address] [facility] [id number] 0 08/14 CMP Bilir ubin, total mg/dL 0.2 1.3 0.8 FINAL Oziel Box * [facility] , [address] [facility] [id number] 0 08/14 CMP Total prote in g/dL 6.3 8.2 6.5 FINAL Oziel Box * [facility] , [address] [facility] [id number] 0 08/14 CBC w/ auto diff WBC K/uL 3.0 8.9 4.7 FINAL Oziel Box [facility] [place] [facility] , [address] [facility] [id number] 0 08/14 CBC w/ auto diff HGB g/dL 11.3 15.2 11.5 FINAL Oziel Box [place] [facility] [place] [facility] , [address] [facility] [id number] 0 08/14 CBC w/ auto diff PLT K/uL 113.0 364.0 211 FINAL Oziel Box [place] [facility] [place] [facility] , [address] [facility] [id number] 0 08/14 CBC w/ auto diff Dave # (ANC) K/uL 1.6 6.6 2.9 FINAL Oziel Box [place] [facility] [place] [facility] , [address] [place] [id number] 0 08/14 CBC w/ auto diff Dave % % 43.0 74.0 61.3 FINAL Oziel Box [place] [facility] [place] [facility] , [address] [place] [id number] 0 08/14 CBC w/ auto diff IG % % 0.0 0.5 0.2 FINAL Oziel Box [place] [facility] [place] [facility] , [address] [place] [id number] 0 08/14 CBC w/ auto diff IG # K/uL 0.0 0.03 0.01 FINAL Oziel Box [place] [facility] [place] [facility] , [address] [place] [id number] 0 08/14 CBC w/ auto diff LY % % 14.0 41.0 25.6 FINAL Oziel Box [place] [facility] [place] [facility] , [address] [place] [id number] 0 08/14 CBC w/ auto diff MO % % 6.0 15.0 8.7 FINAL [facility] [place] [facility] , [address] [place] [id number] 0 08/14 CBC w/ auto diff EO % % 0.0 7.0 3.8 FINAL [facility] [place] [facility] , [address] [place] [id number] 0 08/14 CBC w/ auto diff BA % % 0.0 2.0 0.4 FINAL [facility] [place] [facility] , [address] [place] [id number] 0 08/14 CBC w/ auto diff LY # K/uL 0.4 3.6 1.2 FINAL [facility] [place] [facility] , [address] [place] [id number] 0 08/14 CBC w/ auto diff MO # K/uL 0.2 1.3 0.4 FINAL [facility] [place] [facility] , [address] [place] [id number] 0 08/14 CBC w/ auto diff EO # K/uL 0.0 0.6 0.2 FINAL [facility] [place] [facility] , [address] [place] [id number] 0 08/14 CBC w/ auto diff BA # K/uL 0.0 0.2 0.0 FINAL [facility] [place] [facility] , [address] [place] [id number] 0 08/14 CBC w/ auto diff NRBC % #/100W BC 0.0 0.2 0.0 FINAL [facility] [place] [facility] , [address] [place] [id number] 0 08/14 CBC w/ auto diff RBC M/uL 3.9 5.1 3.60 Low FINAL [facility] [place] [facility] , [address] [place] [id number] 0 08/14 CBC w/ auto diff HCT % 35.0 48.0 35.2 FINAL [facility] [place] [facility] , [address] [place] [id number] 0 08/14 CBC w/ auto diff MCV fL 80.0 104.0 97.8 FINAL [facility] [place] [facility] , [address] [place] [id number] 0 08/14 CBC w/ auto diff MCH pg 26.0 35.0 31.9 [facility]AL [facility] , [address] [facility] [address] [place] [id number] 0 08/14 CBC w/ auto diff MCHC g/dL 30.0 35.0 32.7 [facility] , [address] [facility] [address] [facility] [id number] 0 08/14 CBC w/ auto diff MPV fL 9.5 13.4 9.0 Low [facility] , [address] [facility] [address] [facility] [id number] [phone] 08/14 CBC w/ auto diff RDW % 11.4 16.1 13.60 [facility] , [address] [facility] [address] [facility] [id number] Medications Date Name Route Dose Frequency Instructions Start Date End Date Status Vitamin X84-Xgejn Acid Oral 500 mcg-400 mcg daily active [...] concentration must be 0.3-1.2 mg/mL.Administ er using [id number] ining equipment and through an in-line 0.22 [...]
--- OUTSIDE RECORDS SUMMARY | 2024-08-27 14:33 | XMS_ITS ---
Author Name Interface, [id number] lity Address [address] [facility] [address] [address] [facility] Oncology Address [address] [facility] [address] [address] Care Team Providers Care Mosaic Tile Maker Name Role Phone Jignesh Valadez Unavailable Allergies [...] 20 MIN 05/13/2022 APPOINTMENT CHART CHECK 5 HI N 05/08/2022 APPOINTMENT OV 20 MIN 05/08/2022 [...] 15 MIN 02/20/2022 APPOINTMENT CHART CHECK 5 HI N 01/16/2022 APPOINTMENT PORT DRAW 15 MIN [...] 30 MIN 10/02/2021 APPOINTMENT CHART CHECK 5 HI N 10/01/2021 APPOINTMENT OUTSIDE TEST 5 M [...] 15 MIN 04/08/2021 APPOINTMENT CHART CHECK 5 HI N 04/07/2021 APPOINTMENT OUTSIDE TEST 5 M [...] 0.6 1.3 0.7 FINAL Oziel angelo Oncology [facility], [address] [place] [address] [place] [address] [phone] Phone: () - 12/24 iSTAT creat inine panel GFR estim ate ml/min /1.73m ^2 86.7 GFR is calculate d using the CKD-EPI equation. FINAL Oziel angelo [facility], [address] [place] [address] [address] [facility] [id number] [phone] Phone: () - 12/24 CMP Album in g/dL 3.2 5.2 4.3 FINAL Oziel angelo [facility], [facility] [address] [facility] [address] [place] [address] [phone] Phone: () - 12/24 CMP Alkal ine phosp hatas e U/L 46.0 116.0 68 FINAL Oziel angelo [facility], [address] [facility] [address] [place] [address] [id number] [phone] Phone: () - 12/24 CMP ALT/S GPT U/L 7.0 40.0 12 FINAL Oziel angelo [facility], [address] [facility] [address] [place] [address] [id number] 0 Phone: () - 12/24 CMP AST/S GOT U/L 13.0 40.0 19 FINAL Oziel angelo [place] [address] [id number] 0 Phone: () - 12/24 CMP BUN mg/dL 9.0 23.0 17 FINAL Oziel angelo [facility] [address] [id number] 0 Phone: () - 12/24 CMP Calci um mg/dL 8.7 10.4 10.0 FINAL Oziel angelo [place] [address] [id number] 0 Phone: () - 12/24 CMP Chlor vipin mmol/L 96.0 114.0 107 FINAL Oziel angelo [place] [address] [phone] 0 Phone: () - 12/24 CMP CO2 [...] 96 hour stability window. FINAL Oziel angelo [facility], [facility] [address] [phone] 0 Phone: () - 12/24 CMP Creat inine mg/dL 0.5 1.2 0.85 FINAL Oziel angelo [place] [address] [id number] 0 Phone: () - 12/24 CMP GFR estim ate ml/min /1.73m ^2 68.5 GFR is calculate d using the CKD-EPI equation. FINAL Oziel angelo [place] [address] [id number] 0 Phone: () - 12/24 CMP Gluco se mg/dL 73.0 126.0 207 High FINAL Oziel angelo [place] [address] [id number] 0 Phone: () - 12/24 CMP Potas sium mmol/L 3.5 5.1 4.3 FINAL Oziel angelo Oncology [facility], [address] [facility] [id number] 0 Phone: () - 12/24 CMP Sodiu m mmol/L 136.0 145.0 139 FINAL Oziel angelo Oncology [facility], [address] [facility] [id number] 0 Phone: () - 12/24 CMP Bilir ubin, total mg/dL 0.3 1.2 0.2 Low FINAL Oziel angelo Oncology [facility], [address] [place] [id number] 0 Phone: () - 12/24 CMP Total prote in g/dL 5.7 8.2 7.1 FINAL Oziel angelo Oncology [facility], [address] [facility] [id number] 0 Phone: () - 12/24 CBC w/ auto diff WBC K/uL 3.0 8.9 5.3 FINAL Oziel angelo On[facility] - [place], [address] [facility] [place] [phone] 0 Phone: () - 12/24 CBC w/ auto diff HGB g/dL 11.3 15.2 12.5 FINAL Oziel angelo Oncology - [place], [address] [facility] [place] [id number] 0 Phone: () - 12/24 CBC w/ auto diff PLT K/uL 113.0 364.0 212 FINAL Oziel angelo On[facility] - [place], [address] [place] [id number] 0 Phone: () - 12/24 CBC w/ auto diff Dave # (ANC) K/uL 1.6 6.6 4.7 FINAL Oziel angelo Oncology - [place], [address] [place] [id number] 0 Phone: () - 12/24 CBC w/ auto diff Dave % % 43.0 74.0 88.2 High FINAL Oziel Box [place] [facility] - [place], [address] [place] [phone] 0 Phone: () - 12/24 CBC w/ auto diff IG % % 0.0 0.5 0.8 High FINAL Oziel T[place]leyot a [facility] - [place], [address] [place] [id number] 0 Phone: () - 12/24 CBC w/ auto diff IG # K/uL 0.0 0.03 0.04 High FINAL Oziel Tilleyot a [facility] - [place], [address] [place] [id number] 0 Phone: () - 12/24 CBC w/ auto diff LY % % 14.0 41.0 10.0 Low FINAL Oziel T[facility]leyot a [facility] - [place], [address] [place] [id number] 0 Phone: () - 12/24 CBC w/ auto diff MO % % 6.0 15.0 0.8 Low FINAL Oziel Tilleyot a [facility] - [place], [address] [place] [id number] 0 Phone: () - 12/24 CBC w/ auto diff EO % % 0.0 7.0 0.0 FINAL Oziel Tilleyot a [facility] - [place], [address] [place] [id number] 0 Phone: () - 12/24 CBC w/ auto diff BA % % 0.0 2.0 0.2 FINAL Oziel T[facility]leyot a [facility] - [place], [address] [place] [id number] 0 Phone: () - 12/24 CBC w/ auto diff LY # K/uL 0.4 3.6 0.5 FINAL Oziel T[facility]leyot a [facility] - [place], [address] [place] [id number] 0 Phone: () - 12/24 CBC w/ auto diff MO # K/uL 0.2 1.3 0.0 Low FINAL Oziel Tilleyot a [facility] - [place], [address] [place] [id number] 0 Phone: () - 12/24 CBC w/ auto diff EO # K/uL 0.0 0.6 0.0 FINAL Oziel Tilleyot a [facility] - [place], [address] [place] [id number] 0 Phone: () - 12/24 CBC w/ auto diff BA # K/uL 0.0 0.2 0.0 FINAL Oziel Tilleyot a [facility] - [place], [address] [place] [id number] 0 Phone: () - 12/24 CBC w/ auto diff NRBC % #/100W BC 0.0 0.2 0.0 FINAL Oziel Tilleyot a [facility] - [place], [address] [place] [id number] 0 Phone: () - 12/24 CBC w/ auto diff RBC M/uL 3.9 5.1 3.82 Low FINAL Oziel Tilleyot a [facility] - [place], [address] [place] [id number] 0 Phone: () - 12/24 CBC w/ auto diff HCT % 35.0 48.0 36.9 FINAL Oziel Tilleyot a [facility] - [place], [address] [place] [id number] 0 Phone: () - 12/24 CBC w/ auto diff MCV fL 80.0 104.0 96.6 FINAL Oziel Tilleyot a [facility] - [place], [address] [place] [id number] 0 Phone: () - 12/24 CBC w/ auto diff MCH pg 26.0 35.0 32.7 FINAL Oziel Tilleyot a [facility] - [place], [address] [place] [phone] 0 Phone: () - 12/24 CBC w/ auto diff MCHC g/dL 30.0 35.0 33.9 FINAL Oziel T[facility]leyot a [facility] - [place], [address] [place] [id number] 0 Phone: () - 12/24 CBC w/ auto diff MPV fL 9.5 13.4 9.6 FINAL Oziel Tilleyot a [facility] - [place], [address] [place] [id number] 0 Phone: () - 12/24 CBC w/ auto diff RDW % 11.4 16.1 12.90 FINAL Oziel Tilleyot a [facility] - [place], [address] [place] [phone] 0 Phone: () - 01/02 CBC w/ auto diff WBC K/uL 3.0 8.9 4.4 FINAL Lia Tilleyot a [facility] - [place], [address] [place] [id number] 0 Phone: () - 01/02 CBC w/ auto diff HGB g/dL 11.3 15.2 11.7 FINAL Lia Tilleyot a [facility] - [place], [address] [place] [id number] 0 Phone: () - 01/02 CBC w/ auto diff PLT K/uL 113.0 364.0 209 FINAL Lia Tilleyot a [facility] - [place], [address] [place] [id number] 0 Phone: () - 01/02 CBC w/ auto diff Dave # (ANC) K/uL 1.6 6.6 4.0 FINAL Lia Tilleyot a [facility] - [place], [address] [place] [id number] 0 Phone: () - 01/02 CBC w/ auto diff Dave % % 43.0 74.0 91.7 High FINAL Lia Tilleyot a [facility] - [place], [address] [place] [id number] 0 Phone: () - 01/02 CBC w/ auto diff IG % % 0.0 0.5 0.7 High FINAL Lia Tilleyot a [facility] - [place], [address] [place] [id number] 0 Phone: () - 01/02 CBC w/ auto diff IG # K/uL 0.0 0.03 0.03 FINAL Lia Tilleyot a [facility] - [place], [address] [place] [id number] 0 Phone: () - 01/02 CBC w/ auto diff LY % % 14.0 41.0 6.7 Low FINAL Lia Tilleyot a [facility] - [place], [address] [place] [id number] 0 Phone: () - 01/02 CBC w/ auto diff MO % % 6.0 15.0 0.7 Low FINAL Lia Tilleyot a [facility] - [place], [address] [place] [id number] 0 Phone: () - 01/02 CBC w/ auto diff EO % % 0.0 7.0 0.0 FINAL Lia Tilleyot a [facility] - [place], [address] [place] [id number] 0 Phone: () - 01/02 CBC w/ auto diff BA % % 0.0 2.0 0.2 FINAL Lia Tilleyot a [facility] - [place], [address] [place] [id number] 0 Phone: () - 01/02 CBC w/ auto diff LY # K/uL 0.4 3.6 0.3 Low FINAL Lia Tilleyot a [facility] - [place], [address] [place] [id number] 0 Phone: () - 01/02 CBC w/ auto diff MO # K/uL 0.2 1.3 0.0 Low FINAL Lia Tilleyot a [facility] - [place], [address] [place] [id number] 0 Phone: () - 01/02 CBC w/ auto diff EO # K/uL 0.0 0.6 0.0 FINAL Lia Tolbert a Oncology - [place], [address] [facility] [address] [place] [id number] 0 Phone: () - 01/02 CBC w/ auto diff BA # K/uL 0.0 0.2 0.0 FINAL Lia Tolbert a On[facility] - [place], [address] [facility] [address] [place] [id number] 0 Phone: () - 01/02 CBC w/ auto diff NRBC % #/100W BC 0.0 0.2 0.0 FINAL Lia Tolbert a On[facility] - [place], [address] [facility] [address] [place] [id number] 0 Phone: () - 01/02 CBC w/ auto diff RBC M/uL 3.9 5.1 3.56 Low FINAL Lia angelo Oncology - [place], [address] [facility] [address] [place] [id number] 0 Phone: () - 01/02 CBC w/ auto diff HCT % 35.0 48.0 34.2 Low FINAL Lia Tolbert a Oncology - [place], [address] [facility] [address] [place] [id number] 0 Phone: () - 01/02 CBC w/ auto diff MCV fL 80.0 104.0 96.1 FINAL Lia Tolbert a Oncology - [place], [address] [facility] [address] [place] [id number] 0 Phone: () - 01/02 CBC w/ auto diff MCH pg 26.0 35.0 32.9 FINAL Lia Tolbert a On[facility] - [place], [address] [facility] [address] [place] [id number] 0 Phone: () - 01/02 CBC w/ auto diff MCHC g/dL 30.0 35.0 34.2 FINAL Lia Tilleyot a On[facility] - [place], [address] [facility] [address] [place] [id number] 0 Phone: () - 01/02 CBC w/ auto diff MPV fL 9.5 13.4 9.5 FINAL Lia angelo Oncology - [place], [address] [facility] [address] [place] [id number] 0 Phone: () - 01/02 CBC w/ auto diff RDW % 11.4 16.1 12.80 FINAL Lia angelo Oncology - [place], [address] [facility] [address] [place] [id number] 0 Phone: () - 01/02 iSTAT creat inine panel Creat inine , iSTAT mg/dl 0.6 1.3 0.8 FINAL Lia angelo Oncology - [place], [address] [facility] [address] [place] [id number] 0 Phone: () - 01/02 iSTAT creat inine panel GFR estim ate ml/min /1.73m ^2 73.7 GFR is calculate d using the CKD-EPI equation. FINAL Lia angelo On[facility] - [place], [address] [facility] [address] [place] [id number] 0 Phone: () - 01/02 CMP Album in g/dL 3.2 5.2 4.2 FINAL Lia angelo [facility], [address] [facility] [address] [facility] [id number] 0 Phone: () - 01/02 CMP Alkal ine phosp hatas e U/L 46.0 116.0 58 FINAL Lia angelo Oncology [facility], [address] [facility] [id number] 0 Phone: () - 01/02 CMP ALT/S GPT U/L 7.0 40.0 13 FINAL Lia angelo Oncology [facility], [address] [facility] [id number] 0 Phone: () - 01/02 CMP AST/S GOT U/L 13.0 40.0 20 FINAL [place] [address] [id number] 0 Phone: () - 01/02 CMP BUN mg/dL 9.0 23.0 17 FINAL [place] [address] [id number] 0 Phone: () - 01/02 CMP Calci um mg/dL 8.7 10.4 10.7 High FINAL [place] [address] [id number] 0 Phone: () - 01/02 CMP Chlor vipin mmol/L 96.0 114.0 109 FINAL [place] [address] [id number] 0 Phone: () - 01/02 CMP CO2 [...] of the 96 hour stability window. FINAL [place] [address] [id number] 0 Phone: () - 01/02 CMP Creat inine mg/dL 0.5 1.2 0.76 FINAL [place] [address] [id number] 0 Phone: () - 01/02 CMP GFR estim ate ml/min /1.73m ^2 78.4 GFR is calculate d using the CKD-EPI equation. FINAL [place] [address] [id number] 0 Phone: () - 01/02 CMP Gluco se mg/dL 73.0 126.0 122 FINAL [place] [address] [id number] 0 Phone: () - 01/02 CMP Potas sium mmol/L 3.5 5.1 4.4 FINAL Lia Tilley a Oncology [facility], [address] [place] [id number] 0 Phone: () - 01/02 CMP Sodiu m mmol/L 136.0 145.0 140 FINAL Lia angelo Oncology [facility], [address] [place] [id number] 0 Phone: () - 01/02 CMP Bilir ubin, total mg/dL 0.3 1.2 0.3 FINAL Lia angelo [facility], [address] [place] [id number] 0 Phone: () - 01/02 CMP Total prote in g/dL 5.7 8.2 6.8 FINAL Lia Tilley gi [facility], [address] [place] [id number] 0 Phone: () - 01/09 Smear revie w panel CBC Smear revie w comme nts Consist ent with reporte d results FINAL Lia angelo Oncology - [place], [address] [facility] [place] [id number] 0 Phone: () - 01/09 CBC w/ auto diff WBC K/uL 3.0 8.9 4.8 FINAL Lia angelo Oncology - [place], [address] [facility] [place] [id number] 0 Phone: () - 01/09 CBC w/ auto diff HGB g/dL 11.3 15.2 11.8 FINAL Lia Tolbert a Oncology - [place], [address] [place] [id number] 0 Phone: () - 01/09 CBC w/ auto diff PLT K/uL 113.0 364.0 165 FINAL Lia Tilley a Oncology - [place], [address] [place] [id number] 0 Phone: () - 01/09 CBC w/ auto diff Dave # (ANC) K/uL 1.6 6.6 4.4 FINAL Lia [place] [facility] - [place], [address] [place] [id number] 0 Phone: () - 01/09 CBC w/ auto diff Dave % % 43.0 74.0 91.5 High FINAL Lia T[place]ley[place] a [facility] - [place], [address] [place] [id number] 0 Phone: () - 01/09 CBC w/ auto diff IG % % 0.0 0.5 1.5 High FINAL Lia T[place]leyot a On[facility] - [place], [address] [place] [id number] 0 Phone: () - 01/09 CBC w/ auto diff IG # K/uL 0.0 0.03 0.07 High FINAL Lia T[place] a Oncology - [place], [address] [place] [id number] 0 Phone: () - 01/09 CBC w/ auto diff LY % % 14.0 41.0 5.5 Low FINAL Lia T[place]leyot a [facility] - [place], [address] [place] [id number] 0 Phone: () - 01/09 CBC w/ auto diff MO % % 6.0 15.0 1.3 Low FINAL Lia T[place]ley[place] a [facility] - [place], [address] [place] [id number] 0 Phone: () - 01/09 CBC w/ auto diff EO % % 0.0 7.0 0.0 FINAL Lia Tilleyot a [facility] - [place], [address] [place] [id number] 0 Phone: () - 01/09 CBC w/ auto diff BA % % 0.0 2.0 0.2 FINAL Lia Tilleyot a [facility] - [place], [address] [place] [id number] 0 Phone: () - 01/09 CBC w/ auto diff LY # K/uL 0.4 3.6 0.3 Low FINAL Lia Tilleyot a [facility] - [place], [address] [place] [id number] 0 Phone: () - 01/09 CBC w/ auto diff MO # K/uL 0.2 1.3 0.1 Low FINAL Lia T[place]ley[place] a [facility] - [place], [address] [place] [id number] 0 Phone: () - 01/09 CBC w/ auto diff EO # K/uL 0.0 0.6 0.0 FINAL Lia T[place]ley[place] a [facility] - [place], [address] [place] [id number] 0 Phone: () - 01/09 CBC w/ auto diff BA # K/uL 0.0 0.2 0.0 FINAL Lia T[place]ley[place] a [facility] - [place], [address] [place] [id number] 0 Phone: () - 01/09 CBC w/ auto diff NRBC % #/100W BC 0.0 0.2 0.0 FINAL Lia Tilleyot a [facility] - [place], [address] [place] [id number] 0 Phone: () - 01/09 CBC w/ auto diff RBC M/uL 3.9 5.1 3.56 Low FINAL Lia Tilleyot a [facility] - [place], [address] [place] [id number] 0 Phone: () - 01/09 CBC w/ auto diff HCT % 35.0 48.0 34.2 Low FINAL Lia Tilleyot a [facility] - [place], [address] [place] [id number] 0 Phone: () - 01/09 CBC w/ auto diff MCV fL 80.0 104.0 96.1 FINAL Lia Tilleyot a [facility] - [place], [address] [place] [id number] 0 Phone: () - 01/09 CBC w/ auto diff MCH pg 26.0 35.0 33.1 FINAL Lia angelo Oncology - [place], [address] [facility] [address] [place] [id number] 0 Phone: () - 01/09 CBC w/ auto diff MCHC g/dL 30.0 35.0 34.5 FINAL Lia angelo Oncology - [place], [address] [facility] [address] [place] [id number] 0 Phone: () - 01/09 CBC w/ auto diff MPV fL 9.5 13.4 9.4 Low FINAL Lia angelo Oncology - [place], [address] [place] [address] [address] [place] [id number] 0 Phone: () - 01/09 CBC w/ auto diff RDW % 11.4 16.1 12.90 FINAL Lia angelo Oncology - [place], [address] [facility] [address] [place] [id number] 0 Phone: () - 01/09 CBC w/ auto diff Auto CBC comme nts Slide review to follow FINAL Lia angelo Oncology - [place], [address] [place] [address] [address] [place] [id number] 0 Phone: () - 01/09 CMP Album in g/dL 3.2 5.2 4.2 [facility], [address] [place] [address] [id number] 0 Phone: () - 01/09 CMP Alkal ine phosp hatas e U/L 46.0 116.0 65 [facility], [address] [place] [id number] 0 Phone: () - 01/09 CMP ALT/S GPT U/L 7.0 40.0 16 [facility], [address] [place] [id number] 0 Phone: () - 01/09 CMP AST/S GOT U/L 13.0 40.0 19 FINAL [place] [address] [id number] 0 Phone: () - 01/09 CMP BUN mg/dL 9.0 23.0 19 FINAL [place] [address] [id number] 0 Phone: () - 01/09 CMP Calci um mg/dL 8.7 10.4 10.4 FINAL [place] [address] [id number] 0 Phone: () - 01/09 CMP Chlor vipin mmol/L 96.0 114.0 106 FINAL [place] [address] [id number] 0 Phone: () - 01/09 CMP CO2 [...] of the 96 hour stability window. FINAL [place] [address] [id number] 0 Phone: () - 01/09 CMP Creat inine mg/dL 0.5 1.2 0.78 FINAL [place] [address] [id number] 0 Phone: () - 01/09 CMP GFR estim ate ml/min /1.73m ^2 76.0 GFR is calculate d using the CKD-EPI equation. FINAL [place] [address] [id number] 0 Phone: () - 01/09 CMP Gluco se mg/dL 73.0 126.0 129 High FINAL [place] [address] [id number] 0 Phone: () - 01/09 CMP Potas sium mmol/L 3.5 5.1 4.5 FINAL Lia angelo [facility], [address] [facility] [id number] 0 Phone: () - 01/09 CMP Sodiu m mmol/L 136.0 145.0 139 FINAL Lia angelo [facility], [address] [place] [address] [id number] 0 Phone: () - 01/09 CMP Bilir ubin, total mg/dL 0.3 1.2 0.4 FINAL Lia angelo [facility], [address] [facility] [id number] 0 Phone: () - 01/09 CMP Total prote in g/dL 5.7 8.2 6.7 FINAL Lia angelo [facility], [address] [place] [address] [id number] 0 Phone: () - 01/09 iSTAT creat inine panel Creat inine , iSTAT mg/dl 0.6 1.3 0.7 FINAL Lia angelo [facility] - [place] , [address] [place] [address] [place] [address] [id number] 0 Phone: () - 01/09 iSTAT creat inine panel GFR estim ate ml/min /1.73m ^2 86.6 GFR is calculate d using the CKD-EPI equation. FINAL Lia angelo [facility] - [place] , [address] [facility] [address] [place] [address] [phone] 0 Phone: () - 01/16 iSTAT creat inine panel Creat inine , iSTAT mg/dl 0.6 1.3 0.8 FINAL iLa angelo On[facility] - [place] , [address] [place], [place] [address] [address] [id number] 0 Phone: () - 01/16 iSTAT creat inine panel GFR estim ate ml/min /1.73m ^2 73.7 GFR is calculate d using the CKD-EPI equation. FINAL Lia [place] [facility] - [place], [address] [place] [id number] 0 Phone: () - 01/16 Smear revie w panel CBC Smear revie w comme nts Consist ent with reporte d results FINAL Lia Tilleyot a [facility] - [place], [address] [place] [id number] 0 Phone: () - 01/16 CBC w/ auto diff LY % % 14.0 41.0 4.0 Low FINAL Lia T[facility]ley[facility] a [facility] - [place], [address] [place] [id number] 0 Phone: () - 01/16 CBC w/ auto diff MO % % 6.0 15.0 1.6 Low FINAL Lia [facility] a [facility] - [place], [address] [place] [id number] 0 Phone: () - 01/16 CBC w/ auto diff EO % % 0.0 7.0 0.0 FINAL Lia T[facility]ley[facility] a [facility] - [place], [address] [place] [id number] 0 Phone: () - 01/16 CBC w/ auto diff BA % % 0.0 2.0 0.2 FINAL Lia T[facility]ley[facility] a [facility] - [place], [address] [place] [id number] 0 Phone: () - 01/16 CBC w/ auto diff LY # K/uL 0.4 3.6 0.2 Low FINAL Lia T[facility] a [facility] - [place], [address] [place] [id number] 0 Phone: () - 01/16 CBC w/ auto diff MO # K/uL 0.2 1.3 0.1 Low FINAL Lia T[facility]ley[facility] a [facility] - [place], [address] [place] [id number] 0 Phone: () - 01/16 CBC w/ auto diff EO # K/uL 0.0 0.6 0.0 FINAL Lia T[facility]ley[facility] a [facility] - [place], [address] [place] [id number] 0 Phone: () - 01/16 CBC w/ auto diff BA # K/uL 0.0 0.2 0.0 FINAL Lia Tolbert a On[facility] - [place], [address] [place] [id number] 0 Phone: () - 01/16 CBC w/ auto diff NRBC % #/100W BC 0.0 0.2 0.0 FINAL Lia Tilleyot a [facility] - [place], [address] [place] [id number] 0 Phone: () - 01/16 CBC w/ auto diff RBC M/uL 3.9 5.1 3.30 Low FINAL Lia T[facility]ley[facility] a [facility] - [place], [address] [place] [id number] 0 Phone: () - 01/16 CBC w/ auto diff HCT % 35.0 48.0 32.8 Low FINAL Lia angelo [facility] - [place], [address] [place] [id number] 0 Phone: () - 01/16 CBC w/ auto diff MCV fL 80.0 104.0 99.4 FINAL Lia T[facility]leyot a [facility] - [place], [address] [place] [id number] 0 Phone: () - 01/16 CBC w/ auto diff MCH pg 26.0 35.0 33.3 FINAL Lia [facility] a [facility] - [place], [address] [place] [id number] 0 Phone: () - 01/16 CBC w/ auto diff MCHC g/dL 30.0 35.0 33.5 FINAL [facility] [place], [address] [place] [id number] 0 Phone: () - 01/16 CBC w/ auto diff MPV fL 9.5 13.4 9.2 Low FINAL [facility] [place], [address] [facility] [address] [place] [id number] 0 Phone: () - 01/16 CBC w/ auto diff RDW % 11.4 16.1 13.90 FINAL [facility] [place], [address] [facility] [address] [place] [phone] Phone: () - 01/16 CBC w/ auto diff Auto CBC comme nts Slide review to follow FINAL [facility] [place], [address] [facility] [address] [place] [id number] 0 Phone: () - 01/16 CBC w/ auto diff HGB g/dL 11.3 15.2 11.0 Low FINAL Lia Tolbert a [facility] - [place], [address] [facility] [address] [place] [id number] 0 Phone: () - 01/16 CBC w/ auto diff PLT K/uL 113.0 364.0 144 FINAL Lia Tol[facility] - [place], [address] [facility] [address] [place] [id number] 0 Phone: () - 01/16 CBC w/ auto diff Dave # (ANC) K/uL 1.6 6.6 4.2 FINAL Lia Tilleyot a [facility] - [place], [address] [facility] [address] [place] [id number] 0 Phone: () - 01/16 CBC w/ auto diff Dave % % 43.0 74.0 92.4 High FINAL Lia Tilleyot a [facility] - [place], [address] [place] [id number] 0 Phone: () - 01/16 CBC w/ auto diff IG % % 0.0 0.5 1.8 High FINAL Lia Tilleyot a [facility] - [place], [address] [place] [id number] 0 Phone: () - 01/16 CBC w/ auto diff IG # K/uL 0.0 0.03 0.08 High FINAL Lia angelo [facility] [place], [facility] [address] [facility] [place] [id number] 0 Phone: () - 01/16 CBC w/ auto diff WBC K/uL 3.0 8.9 4.5 FINAL Lia angelo [facility] [place], [address] [facility] [address] [facility] [place] [id number] 0 Phone: () - 01/16 CMP Album in g/dL 3.2 5.2 3.9 FINAL Lia Delgado [place] [address] [place] [address] [id number] Phone: () - 01/16 CMP Alkal ine phosp hatas e U/L 46.0 116.0 62 FINAL Lia Delgado [place] [address] [facility] [address] [place] [address] [id number] 0 Phone: () - 01/16 CMP ALT/S GPT U/L 7.0 40.0 19 FINAL [place] [address] [facility] [address] [id number] 0 Phone: () - 01/16 CMP AST/S GOT U/L 13.0 40.0 18 FINAL [place] [address] [place] [address] [id number] 0 Phone: () - 01/16 CMP BUN mg/dL 9.0 23.0 21 FINAL [place] [address] [place] [address] [id number] 0 Phone: () - 01/16 CMP Calci um mg/dL 8.7 10.4 10.3 FINAL [place] [address] [place] [address] [id number] 0 Phone: () - 01/16 CMP Chlor vipin mmol/L 96.0 114.0 108 FINAL [place] [address] [id number] 0 Phone: () - 01/16 CMP CO2 [...] 96 hour stability window. FINAL Lia Delgado [address] [id number] 0 Phone: () - 01/16 CMP Creat inine mg/dL 0.5 1.2 0.78 FINAL Lia [address] [id number] 0 Phone: () - 01/16 CMP GFR estim ate ml/min /1.73m ^2 76.0 GFR is calculate d using the CKD-EPI equation. FINAL Lia [address] [id number] 0 Phone: () - 01/16 CMP Gluco se mg/dL 73.0 126.0 138 High FINAL Lia [place] [address] [id number] 0 Phone: () - 01/16 CMP Potas sium mmol/L 3.5 5.1 4.2 FINAL Lia [address] [id number] 0 Phone: () - 01/16 CMP Sodiu m mmol/L 136.0 145.0 [address] [id number] 0 Phone: () - 01/16 CMP Bilir ubin, total mg/dL 0.3 1.2 0.3 FINAL Lia [place] [address] [id number] 0 Phone: () - 01/16 CMP Total prote in g/dL 5.7 8.2 6.3 FINAL Lia Tolbert [facility] - [place], [address] [place] [id number] 0 Phone: () - 01/23 Smear revie w panel CBC Smear revie w comme nts Consist ent with reporte d results FINAL Lia angelo [facility] - [place], [address] [place] [id number] 0 Phone: () - 01/23 iSTAT creat inine panel Creat inine , iSTAT mg/dl 0.6 1.3 0.8 FINAL Lia angelo [facility] - [place], [address] [facility] [address] [place] [id number] 0 Phone: () - 01/23 iSTAT creat inine panel GFR estim ate ml/min /1.73m ^2 73.7 GFR is calculate d using the CKD-EPI equation. FINAL Lia angelo [facility] - [place], [address] [place] [phone] 0 Phone: () - 01/23 CBC w/ auto diff WBC K/uL 3.0 8.9 2.4 Low FINAL Lia angelo [facility] - [place], [address] [place] [id number] 0 Phone: () - 01/23 CBC w/ auto diff HGB g/dL 11.3 15.2 10.4 Low FINAL Lia Tolbert [facility] - [place], [address] [place] [id number] 0 Phone: () - 01/23 CBC w/ auto diff PLT K/uL 113.0 364.0 109 Low FINAL Lia angelo [facility] - [place], [address] [place] [id number] 0 Phone: () - 01/23 CBC w/ auto diff Dave # (ANC) K/uL 1.6 6.6 2.2 FINAL Lia Danny [place] [facility] - [place], [address] [place] [id number] 0 Phone: () - 01/23 CBC w/ auto diff Dave % % 43.0 74.0 90.0 High FINAL Lia Tilleyot a [facility] - [place], [address] [place] [id number] 0 Phone: () - 01/23 CBC w/ auto diff IG % % 0.0 0.5 0.8 High FINAL Lia T[facility]ley[facility] - [place], [address] [place] [id number] 0 Phone: () - 01/23 CBC w/ auto diff IG # K/uL 0.0 0.03 0.02 FINAL Lia T[facility] - [place], [address] [place] [id number] 0 Phone: () - 01/23 CBC w/ auto diff LY % % 14.0 41.0 7.1 Low FINAL Lia [facility] - [place], [address] [place] [id number] 0 Phone: () - 01/23 CBC w/ auto diff MO % % 6.0 15.0 2.1 Low FINAL Lia T[facility] - [place], [address] [place] [id number] 0 Phone: () - 01/23 CBC w/ auto diff EO % % 0.0 7.0 0.0 FINAL Lia [facility] - [place], [address] [place] [id number] 0 Phone: () - 01/23 CBC w/ auto diff BA % % 0.0 2.0 0.0 FINAL Lia T[facility] - [place], [address] [place] [id number] 0 Phone: () - 01/23 CBC w/ auto diff LY # K/uL 0.4 3.6 0.2 Low FINAL Lia Tilley[facility] - [place], [address] [place] [id number] 0 Phone: () - 01/23 CBC w/ auto diff MO # K/uL 0.2 1.3 0.1 Low FINAL Lia T[facility] - [place], [address] [place] [id number] 0 Phone: () - 01/23 CBC w/ auto diff EO # K/uL 0.0 0.6 0.0 FINAL Lia T[facility] - [place], [address] [place] [id number] 0 Phone: () - 01/23 CBC w/ auto diff BA # K/uL 0.0 0.2 0.0 FINAL Lia T[facility] - [place], [address] [place] [id number] 0 Phone: () - 01/23 CBC w/ auto diff NRBC % #/100W BC 0.0 0.2 0.0 FINAL Lia Tilleyot a [facility] - [place], [address] [place] [id number] 0 Phone: () - 01/23 CBC w/ auto diff RBC M/uL 3.9 5.1 3.14 Low FINAL Lia T[facility] - [place], [address] [place] [id number] 0 Phone: () - 01/23 CBC w/ auto diff HCT % 35.0 48.0 31.4 Low FINAL Lia Tilleyot [facility] - [place], [address] [place] [id number] 0 Phone: () - 01/23 CBC w/ auto diff MCV fL 80.0 104.0 100.0 FINAL Lia Tilleyot a [facility] - [place], [address] [place] [id number] 0 Phone: () - 01/23 CBC w/ auto diff MCH pg 26.0 35.0 33.1 FINAL Lia Tilley[facility] - [place], [address] [facility] [address] [place] [id number] 0 Phone: () - 01/23 CBC w/ auto diff MCHC g/dL 30.0 35.0 33.1 FINAL Lia Tilley[facility] - [place], [address] [facility] [address] [place] [id number] 0 Phone: () - 01/23 CBC w/ auto diff MPV fL 9.5 13.4 8.7 Low FINAL Lia Tilley[facility] - [place], [address] [facility] [address] [place] [id number] 0 Phone: () - 01/23 CBC w/ auto diff RDW % 11.4 16.1 15.00 FINAL Lia Til[facility] - [place], [address] [facility] [address] [place] [id number] 0 Phone: () - 01/23 CBC w/ auto diff Auto CBC comme nts Slide review to follow FINAL Lia Tolbert [facility] - [place], [address] [place] [address] [address] [place] [id number] 0 Phone: () - 01/23 CMP Album in g/dL 3.2 5.2 3.8 FINAL Lia Tilley a Oncology [facility], [address] [facility] [id number] Phone: () - 01/23 CMP Alkal ine phosp hatas e U/L 46.0 116.0 61 FINAL Lia Tilley a Oncology [facility], [address] [place] [id number] 0 Phone: () - 01/23 CMP ALT/S GPT U/L 7.0 40.0 24 FINAL Lia Tilley a Oncology [facility], [address] [place] [id number] 0 Phone: () - 01/23 CMP AST/S GOT U/L 13.0 40.0 21 FINAL [place] [address] [id number] 0 Phone: () - 01/23 CMP BUN mg/dL 9.0 23.0 22 FINAL [facility] [address] [id number] 0 Phone: () - 01/23 CMP Calci um mg/dL 8.7 10.4 9.1 FINAL [place] [address] [id number] 0 Phone: () - 01/23 CMP Chlor vipin mmol/L 96.0 114.0 110 FINAL [place] [address] [id number] 0 Phone: () - 01/23 CMP CO2 [...] of the 96 hour stability window. FINAL [place] [address] [id number] 0 Phone: () - 01/23 CMP Creat inine mg/dL 0.5 1.2 0.74 FINAL [place] [address] [id number] 0 Phone: () - 01/23 CMP GFR estim ate ml/min /1.73m ^2 81.0 GFR is calculate d using the CKD-EPI equation. FINAL [place] [address] [id number] 0 Phone: () - 01/23 CMP Gluco se mg/dL 73.0 126.0 148 High FINAL [place] [address] [id number] 0 Phone: () - 01/23 CMP Potas sium mmol/L 3.5 5.1 4.4 FINAL [facility] [address] [place] [address] [id number] 0 Phone: () - 01/23 CMP Sodiu m mmol/L 136.0 145.0 141 FINAL [facility] [address] [place] [address] [id number] 0 Phone: () - 01/23 CMP Bilir ubin, total mg/dL 0.3 1.2 0.3 FINAL [facility] [address] [place] [address] [id number] 0 Phone: () - 01/23 CMP Total prote in g/dL 5.7 8.2 6.1 FINAL [place] [address] [place] [address] [id number] Phone: () - 01/30 CMP Album in g/dL 3.2 5.2 4.1 FINAL [place] [address] [place] [address] [id number] 0 Phone: () - 01/30 CMP Alkal ine phosp hatas e U/L 46.0 116.0 63 FINAL [place] [address] [place] [address] [id number] 0 Phone: () - 01/30 CMP ALT/S GPT U/L 7.0 40.0 19 FINAL [place] [address] [place] [address] [id number] 0 Phone: () - 01/30 CMP AST/S GOT U/L 13.0 40.0 22 FINAL [place] [address] [place] [address] [id number] 0 Phone: () - 01/30 CMP BUN mg/dL 9.0 23.0 22 FINAL [place] [address] [place] [address] [id number] 0 Phone: () - 01/30 CMP Calci um mg/dL 8.7 10.4 9.8 FINAL [place] [address] [id number] 0 Phone: () - 01/30 CMP Chlor vipin mmol/L 96.0 114.0 111 FINAL [place] [address] [id number] 0 Phone: () - 01/30 CMP CO2 [...] of the 96 hour stability window. FINAL [place] [address] [id number] 0 Phone: () - 01/30 CMP Creat inine mg/dL 0.5 1.2 0.73 FINAL [place] [address] [id number] 0 Phone: () - 01/30 CMP GFR estim ate ml/min /1.73m ^2 82.3 GFR is calculate d using the CKD-EPI equation. FINAL [place] [address] [id number] 0 Phone: () - 01/30 CMP Gluco se mg/dL 73.0 126.0 122 FINAL [place] [address] [id number] 0 Phone: () - 01/30 CMP Potas sium mmol/L 3.5 5.1 4.8 [place] [address] [id number] 0 Phone: () - 01/30 CMP Sodiu m mmol/L 136.0 145.0 140 FINAL [place] [address] [address] [facility] [address] [id number] 0 Phone: () - 01/30 CMP Bilir ubin, total mg/dL 0.3 1.2 0.3 FINAL Lia Tilleyot a Oncology [facility], [address] [facility] [id number] 0 Phone: () - 01/30 CMP Total prote in g/dL 5.7 8.2 6.7 FINAL Lia Tilleyot a Oncology [facility], [address] [facility] [id number] 0 Phone: () - 01/30 CBC w/ auto diff WBC K/uL 3.0 8.9 2.3 Low FINAL Lia T[facility]ley[facility] a [facility] - [place], [address] [place] [id number] 0 Phone: () - 01/30 CBC w/ auto diff HGB g/dL 11.3 15.2 11.0 Low FINAL Lia Tilleyot a [facility] - [place], [address] [place] [id number] 0 Phone: () - 01/30 CBC w/ auto diff PLT K/uL 113.0 364.0 103 Low FINAL Lia Tilley[facility] a [facility] - [place], [address] [place] [id number] 0 Phone: () - 01/30 CBC w/ auto diff Dave # (ANC) K/uL 1.6 6.6 2.1 FINAL Lia T[facility] - [place], [address] [place] [id number] 0 Phone: () - 01/30 CBC w/ auto diff Dave % % 43.0 74.0 89.6 High FINAL Lia T[facility] - [place], [address] [place] [id number] 0 Phone: () - 01/30 CBC w/ auto diff IG % % 0.0 0.5 0.9 High FINAL Lia T[facility] - [place], [address] [place] [id number] 0 Phone: () - 01/30 CBC w/ auto diff IG # K/uL 0.0 0.03 0.02 FINAL Lia T[facility] - [place], [address] [facility] [address] [place] [id number] 0 Phone: () - 01/30 CBC w/ auto diff LY % % 14.0 41.0 7.3 Low FINAL Lia Tilleyot a [facility] - [place], [address] [facility] [address] [place] [id number] 0 Phone: () - 01/30 CBC w/ auto diff MO % % 6.0 15.0 2.2 Low FINAL Lia Tilleyot a [facility] - [place], [address] [facility] [address] [place] [id number] 0 Phone: () - 01/30 CBC w/ auto diff EO % % 0.0 7.0 0.0 FINAL Lia T[facility]leyot a [facility] - [place], [address] [facility] [address] [place] [id number] 0 Phone: () - 01/30 CBC w/ auto diff BA % % 0.0 2.0 0.0 FINAL Lia Tilley[facility] a [facility] - [place], [address] [facility] [address] [place] [id number] 0 Phone: () - 01/30 CBC w/ auto diff LY # K/uL 0.4 3.6 0.2 Low FINAL Lia Tilleyot a [facility] - [place], [address] [facility] [address] [place] [id number] 0 Phone: () - 01/30 CBC w/ auto diff MO # K/uL 0.2 1.3 0.1 Low FINAL Lia Tilleyot a [facility] - [place], [address] [facility] [address] [place] [id number] 0 Phone: () - 01/30 CBC w/ auto diff EO # K/uL 0.0 0.6 0.0 FINAL Lia Tilleyot a [facility] - [place], [address] [place] [id number] 0 Phone: () - 01/30 CBC w/ auto diff BA # K/uL 0.0 0.2 0.0 FINAL Lia Tilleyot a [facility] - [place], [address] [place] [id number] 0 Phone: () - 01/30 CBC w/ auto diff NRBC % #/100W BC 0.0 0.2 0.0 FINAL Lia T[facility]ley[facility] a [facility] - [place], [address] [place] [id number] 0 Phone: () - 01/30 CBC w/ auto diff RBC M/uL 3.9 5.1 3.23 Low FINAL Lia Tolbert a [facility] - [place], [address] [place] [id number] 0 Phone: () - 01/30 CBC w/ auto diff HCT % 35.0 48.0 32.4 Low FINAL Lia Tolbert [facility] - [place], [address] [place] [id number] 0 Phone: () - 01/30 CBC w/ auto diff MCV fL 80.0 104.0 100.3 FINAL Lia Tolbert [facility] - [place], [address] [place] [id number] 0 Phone: () - 01/30 CBC w/ auto diff MCH pg 26.0 35.0 34.1 FINAL Lia Tolbert [facility] - [place], [address] [place] [id number] 0 Phone: () - 01/30 CBC w/ auto diff MCHC g/dL 30.0 35.0 34.0 FINAL Lia Tilleyot a [facility] - [place], [address] [place] [id number] 0 Phone: () - 01/30 CBC w/ auto diff MPV fL 9.5 13.4 9.2 Low FINAL Lia angelo [facility] - [place], [address] [place] [id number] 0 Phone: () - 01/30 CBC w/ auto diff RDW % 11.4 16.1 14.80 FINAL Lia angelo [facility] - [place], [address] [place] [id number] 0 Phone: () - 01/30 CBC w/ auto diff Auto CBC comme nts Slide review to follow FINAL Lia angelo [facility] - [place], [address] [place] [id number] 0 Phone: () - 01/30 Smear revie w panel CBC Smear revie w comme nts Consist ent with reporte d results FINAL Lia angelo [facility] - [place], [address] [place] [id number] 0 Phone: () - 01/30 iSTAT creat inine panel Creat inine , iSTAT mg/dl 0.6 1.3 0.7 FINAL Lia angelo [facility] - [place], [address] [place] [id number] 0 Phone: () - 01/30 iSTAT creat inine panel GFR estim ate ml/min /1.73m ^2 86.6 GFR is calculate d using the CKD-EPI equation. FINAL Lia angelo [facility] - [place], [address] [facility] [address] [place] [id number] 0 Phone: () - 02/17 CMP Album in g/dL 3.2 5.2 3.9 FINAL Oziel angelo Oncology [facility], [address] [facility] [address] [place] [id number] 0 Phone: () - 02/17 CMP Alkal ine phosp hatas e U/L 46.0 116.0 57 FINAL Oziel Tilleyot a [facility] - [place], [address] [place] [id number] 0 Phone: () - 02/17 CMP ALT/S GPT U/L 7.0 40.0 13 FINAL Oziel angelo [facility] [address] [facility] [address] [id number] 0 Phone: () - 02/17 CMP AST/S GOT U/L 13.0 40.0 19 FINAL Oziel angelo [facility] [address] [facility] [address] [id number] 0 Phone: () - 02/17 CMP BUN mg/dL 9.0 23.0 13 FINAL Oziel angelo [place] [address] [address] [facility] [address] [id number] 0 Phone: () - 02/17 CMP Calci um mg/dL 8.7 10.4 9.3 FINAL Oziel angelo [place] [address] [id number] 0 Phone: () - 02/17 CMP Chlor vipin mmol/L 96.0 114.0 111 FINAL Oziel angelo [place] [address] [id number] 0 Phone: () - 02/17 CMP CO2 [...] 96 hour stability window. FINAL Oziel angelo [place] [address] [id number] 0 Phone: () - 02/17 CMP Creat inine mg/dL 0.5 1.2 0.88 FINAL Oziel angelo [place] [address] [id number] 0 Phone: () - 02/17 CMP GFR estim ate ml/min /1.73m ^2 65.6 GFR is calculate d using the CKD-EPI equation. FINAL Oziel angelo [place] [address] [id number] 0 Phone: () - 02/17 CMP Gluco se mg/dL 73.0 126.0 63 Low FINAL Oziel angelo [facility], [address] [facility] [id number] 0 Phone: () - 02/17 CMP Potas sium mmol/L 3.5 5.1 4.2 FINAL Oziel angelo [facility], [address] [place] [address] [id number] 0 Phone: () - 02/17 CMP Sodiu m mmol/L 136.0 145.0 143 FINAL Oziel angelo [facility], [address] [facility] [id number] 0 Phone: () - 02/17 CMP Bilir ubin, total mg/dL 0.3 1.2 0.3 FINAL Oziel angelo [facility] [address] [facility] [address] [place] [address] [id number] 0 Phone: () - 02/17 CMP Total prote in g/dL 5.7 8.2 6.4 FINAL Oziel angelo [facility], [address] [facility] [address] [place] [address] [id number] 0 Phone: () - 02/17 TSH w/ refle x to free T4 TSH uIU/ml 0.32 5.0 3.46 Test performed at [facility] on a [employer] Immunoass ay Analyzer that uses an immunoenz ymometric sandwich assay for analysis. Patient testing should not be performed using multiple methodharley amador due to analytica l variation seen between test methodharley amador. FINAL Oziel angelo [facility], [address] [facility] [address] [facility] [id number] 0 Phone: () - 02/17 CBC w/ auto diff WBC K/uL 3.0 8.9 3.7 FINAL Oziel angelo [facility] - [place], [address] [facility] [address] [facility] [place] [id number] 0 Phone: () - 02/17 CBC w/ auto diff HGB g/dL 11.3 15.2 10.2 Low FINAL [facility], [address] [facility] [address] [place] [id number] 0 Phone: () - 02/17 CBC w/ auto diff PLT K/uL 113.0 364.0 213 FINAL Oziel angelo [facility] - [place], [address] [place] [id number] 0 Phone: () - 02/17 CBC w/ auto diff Dave # (ANC) K/uL 1.6 6.6 2.1 FINAL Oziel angelo [facility] - [place], [address] [place] [id number] 0 Phone: () - 02/17 CBC w/ auto diff Dave % % 43.0 74.0 57.4 FINAL Oziel angelo [facility] - [place], [address] [place] [id number] 0 Phone: () - 02/17 CBC w/ auto diff IG % % 0.0 0.5 0.8 High FINAL Oziel angelo [facility] - [place], [address] [facility] [address] [place] [id number] 0 Phone: () - 02/17 CBC w/ auto diff IG # K/uL 0.0 0.03 0.03 FINAL Oziel angelo [facility] - [place], [address] [place] [id number] 0 Phone: () - 02/17 CBC w/ auto diff LY % % 14.0 41.0 21.7 FINAL Oziel angelo [facility] - [place], [address] [place] [id number] 0 Phone: () - 02/17 CBC w/ auto diff MO % % 6.0 15.0 18.5 High FINAL Oziel angelo [facility] - [place], [address] [place] [id number] 0 Phone: () - 02/17 CBC w/ auto diff EO % % 0.0 7.0 1.1 FINAL Oziel angelo [facility] - [place], [address] [place] [id number] 0 Phone: () - 02/17 CBC w/ auto diff BA % % 0.0 2.0 0.5 FINAL Oziel angelo [facility] - [place], [address] [facility] [address] [place] [id number] 0 Phone: () - 02/17 CBC w/ auto diff LY # K/uL 0.4 3.6 0.8 FINAL Oziel Tilleyot a [facility] - [place], [address] [facility] [address] [place] [id number] 0 Phone: () - 02/17 CBC w/ auto diff MO # K/uL 0.2 1.3 0.7 FINAL Oziel Tolbert a [facility] - [place], [address] [facility] [address] [place] [id number] 0 Phone: () - 02/17 CBC w/ auto diff EO # K/uL 0.0 0.6 0.0 FINAL Oziel angelo [facility] - [place], [address] [facility] [address] [place] [id number] 0 Phone: () - 02/17 CBC w/ auto diff BA # K/uL 0.0 0.2 0.0 FINAL Oziel angelo [facility] - [place], [address] [facility] [address] [place] [id number] 0 Phone: () - 02/17 CBC w/ auto diff NRBC % #/100W BC 0.0 0.2 0.0 FINAL Oziel [facility] - [place], [address] [facility] [address] [place] [id number] 0 Phone: () - 02/17 CBC w/ auto diff RBC M/uL 3.9 5.1 2.96 Low FINAL Oziel angelo [facility] - [place], [address] [place] [id number] 0 Phone: () - 02/17 CBC w/ auto diff HCT % 35.0 48.0 30.3 Low FINAL Oziel [facility] - [place], [address] [place] [id number] 0 Phone: () - 02/17 CBC w/ auto diff MCV fL 80.0 104.0 102.4 FINAL Oziel [facility] - [place], [address] [place] [id number] 0 Phone: () - 02/17 CBC w/ auto diff MCH pg 26.0 35.0 34.5 FINAL Oziel [facility] - [place], [address] [place] [id number] 0 Phone: () - 02/17 CBC w/ auto diff MCHC g/dL 30.0 35.0 33.7 FINAL Oziel [facility] - [place], [address] [place] [id number] 0 Phone: () - 02/17 CBC w/ auto diff MPV fL 9.5 13.4 8.5 Low FINAL Oziel Tolbert a [facility] - [place], [address] [place] [id number] 0 Phone: () - 02/17 CBC w/ auto diff RDW % 11.4 16.1 17.40 High FINAL Oziel angelo [facility] - [place], [address] [place] [id number] 0 Phone: () - 03/17 CBC w/ auto diff WBC K/uL 3.0 8.9 4.5 FINAL Oziel [facility] - [place], [address] [place] [id number] [phone] Phone: () - 03/17 CBC w/ auto diff HGB g/dL 11.3 15.2 11.6 FINAL [facility] [place], [address] [place] [id number] 0 Phone: () - 03/17 CBC w/ auto diff PLT K/uL 113.0 364.0 213 FINAL [facility] [place], [address] [place] [phone] Phone: () - 03/17 CBC w/ auto diff Dave # (ANC) K/uL 1.6 6.6 2.6 FINAL [facility] [place], [address] [place] [id number] 0 Phone: () - 03/17 CBC w/ auto diff Dave % % 43.0 74.0 57.9 FINAL [facility] [place], [address] [place] [id number] 0 Phone: () - 03/17 CBC w/ auto diff IG % % 0.0 0.5 0.4 FINAL [facility] [place], [address] [place] [id number] 0 Phone: () - 03/17 CBC w/ auto diff IG # K/uL 0.0 0.03 0.02 FINAL [facility] [place], [address] [place] [id number] 0 Phone: () - 03/17 CBC w/ auto diff LY % % 14.0 41.0 22.1 FINAL [facility] [place], [address] [place] [id number] 0 Phone: () - 03/17 CBC w/ auto diff MO % % 6.0 15.0 12.9 FINAL [facility] [place], [address] [place] [id number] 0 Phone: () - 03/17 CBC w/ auto diff EO % % 0.0 7.0 5.8 FINAL [facility] [place], [address] [place] [id number] 0 Phone: () - 03/17 CBC w/ auto diff BA % % 0.0 2.0 0.9 FINAL [facility] [place], [address] [place] [id number] 0 Phone: () - 03/17 CBC w/ auto diff LY # K/uL 0.4 3.6 1.0 FINAL [facility] [place], [address] [place] [id number] 0 Phone: () - 03/17 CBC w/ auto diff MO # K/uL 0.2 1.3 0.6 FINAL [facility] [place], [address] [place] [id number] 0 Phone: () - 03/17 CBC w/ auto diff EO # K/uL 0.0 0.6 0.3 FINAL [facility] [place], [address] [place] [id number] 0 Phone: () - 03/17 CBC w/ auto diff BA # K/uL 0.0 0.2 0.0 FINAL [facility] [place], [address] [place] [id number] 0 Phone: () - 03/17 CBC w/ auto diff NRBC % #/100W BC 0.0 0.2 0.0 FINAL [facility] [place], [address] [place] [id number] 0 Phone: () - 03/17 CBC w/ auto diff RBC M/uL 3.9 5.1 3.26 Low FINAL [facility] [place], [address] [place] [id number] 0 Phone: () - 03/17 CBC w/ auto diff HCT % 35.0 48.0 34.1 Low FINAL [facility] [place], [address] [place] [id number] 0 Phone: () - 03/17 CBC w/ auto diff MCV fL 80.0 104.0 104.6 High FINAL [facility] [place], [address] [place] [id number] 0 Phone: () - 03/17 CBC w/ auto diff MCH pg 26.0 35.0 35.6 High FINAL [facility] [place], [address] [place] [id number] 0 Phone: () - 03/17 CBC w/ auto diff MCHC g/dL 30.0 35.0 34.0 FINAL [facility] [place], [address] [place] [id number] 0 Phone: () - 03/17 CBC w/ auto diff MPV fL 9.5 13.4 8.6 Low FINAL [facility] [place], [address] [place] [id number] 0 Phone: () - 03/17 CBC w/ auto diff RDW % 11.4 16.1 15.20 FINAL [facility] [place], [address] [place] [id number] 0 Phone: () - 03/17 CMP Album in g/dL 3.2 5.2 4.1 FINAL [facility], [address] [place] [id number] 0 Phone: () - 03/17 CMP Alkal ine phosp hatas e U/L 46.0 116.0 54 FINAL [facility] [place], [address] [place] [id number] 0 Phone: () - 03/17 CMP ALT/S GPT U/L 7.0 40.0 12 FINAL [facility], [address] [place] [id number] 0 Phone: () - 03/17 CMP AST/S GOT U/L 13.0 40.0 20 FINAL [facility], [address] [place] [id number] 0 Phone: () - 03/17 CMP BUN mg/dL 9.0 23.0 20 FINAL [facility] [place] [address] [address] [facility] 100 [facility] [id number] 0 Phone: () - 03/17 CMP Calci um mg/dL 8.7 10.4 9.8 FINAL [facility] [address] [facility] 100 [facility] [id number] 0 Phone: () - 03/17 CMP Chlor vipin mmol/L 96.0 114.0 109 FINAL [facility] [address] [facility] 100 [facility] [id number] 0 Phone: () - 03/17 CMP CO2 [...] 96 hour stability window. FINAL [facility] [place] [address] [id number] 0 Phone: () - 03/17 CMP Creat inine mg/dL 0.5 1.2 0.90 FINAL [facility] [place] [address] [id number] 0 Phone: () - 03/17 CMP GFR estim ate ml/min /1.73m ^2 63.8 GFR is calculate d using the CKD-EPI equation. FINAL [facility] [place] [address] [facility] [address] [id number] 0 Phone: () - 03/17 CMP Gluco se mg/dL 73.0 126.0 87 FINAL [facility] [place] [address] [facility] [address] [id number] 0 Phone: () - 03/17 CMP Potas sium mmol/L 3.5 5.1 4.4 FINAL [facility] [place] [address] [facility] [address] [facility] [id number] 0 Phone: () - 03/17 CMP Sodiu m mmol/L 136.0 145.0 142 FINAL [facility], [address] [facility] 100 [facility] [id number] 0 Phone: () - 03/17 CMP Bilir ubin, total mg/dL 0.3 1.2 0.5 FINAL [facility], [address] [facility] 100 [facility] [id number] 0 Phone: () - 03/17 CMP Total prote in g/dL 5.7 8.2 6.7 FINAL [facility] [address] [id number] 0 Phone: () - 03/17 TSH w/ refle x to free T4 TSH uIU/ml 0.32 5.0 3.06 Test performed at [facility] on a HOMETRAX Immunoass ay Analyzer that uses an immunoenz ymometric sandwich assay for analysis. Patient testing should not be performed using multiple methodolo ginaun due to analytica l variation seen between test methodharley amador. FINAL [facility], [address] [id number] 0 Phone: () - 04/14 CMP Album in g/dL 3.2 5.2 4.3 FINAL [facility] [address] [facility] [address] [id number] 0 Phone: () - 04/14 CMP Alkal ine phosp hatas e U/L 46.0 116.0 58 FINAL [facility], [address] [facility] [address] [id number] 0 Phone: () - 04/14 CMP ALT/S GPT U/L 7.0 40.0 10 FINAL [facility], [address] [facility] 100 [facility] [id number] 0 Phone: () - 04/14 CMP AST/S GOT U/L 13.0 40.0 21 FINAL [facility], [address] [facility] 100 [facility] [id number] 0 Phone: () - 04/14 CMP BUN mg/dL 9.0 23.0 16 FINAL [facility] [place] [address] [id number] 0 Phone: () - 04/14 CMP Calci um mg/dL 8.7 10.4 10.0 FINAL [facility] [place] [address] [id number] 0 Phone: () - 04/14 CMP Chlor vipin mmol/L 96.0 114.0 109 FINAL [facility] [place] [address] [id number] 0 Phone: () - 04/14 CMP CO2 [...] 96 hour stability window. FINAL [facility] [place] [address] [id number] 0 Phone: () - 04/14 CMP Creat inine mg/dL 0.5 1.2 0.88 FINAL [facility] [place] [address] [id number] 0 Phone: () - 04/14 CMP GFR estim ate ml/min /1.73m ^2 65.6 GFR is calculate d using the CKD-EPI equation. FINAL [facility] [place] [address] [id number] 0 Phone: () - 04/14 CMP Gluco se mg/dL 73.0 126.0 92 FINAL [facility] [place] [address] [id number] 0 Phone: () - 04/14 CMP Potas sium mmol/L 3.5 5.1 4.4 FINAL [facility] [place] [address] [place] [id number] 0 Phone: () - 04/14 CMP Sodiu m mmol/L 136.0 145.0 142 FINAL [facility], [address] [facility] [id number] 0 Phone: () - 04/14 CMP Bilir ubin, total mg/dL 0.3 1.2 0.5 FINAL [facility], [address] [facility] [id number] 0 Phone: () - 04/14 CMP Total prote in g/dL 5.7 8.2 6.9 FINAL [facility], [address] [facility] [id number] 0 Phone: () - 04/14 CBC w/ auto diff WBC K/uL 3.0 8.9 5.0 FINAL [facility] [place], [address] [facility] [id number] 0 Phone: () - 04/14 CBC w/ auto diff HGB g/dL 11.3 15.2 12.4 FINAL [facility] [place], [address] [place] [facility] [id number] 0 Phone: () - 04/14 CBC w/ auto diff PLT K/uL 113.0 364.0 202 FINAL [facility] [place], [address] [place] [id number] 0 Phone: () - 04/14 CBC w/ auto diff Dave # (ANC) K/uL 1.6 6.6 3.4 FINAL [facility] [place], [address] [place] [id number] 0 Phone: () - 04/14 CBC w/ auto diff Dave % % 43.0 74.0 67.0 FINAL [facility] [place], [address] [place] [id number] 0 Phone: () - 04/14 CBC w/ auto diff IG % % 0.0 0.5 0.2 FINAL [facility] [place], [address] [place] [id number] 0 Phone: () - 04/14 CBC w/ auto diff IG # K/uL 0.0 0.03 0.01 FINAL [facility] [place], [address] [place] [id number] 0 Phone: () - 04/14 CBC w/ auto diff LY % % 14.0 41.0 22.0 FINAL [facility] [place], [address] [place] [id number] 0 Phone: () - 04/14 CBC w/ auto diff MO % % 6.0 15.0 8.4 FINAL [facility] [place], [address] [place] [id number] 0 Phone: () - 04/14 CBC w/ auto diff EO % % 0.0 7.0 2.0 FINAL [facility] [place], [address] [place] [id number] 0 Phone: () - 04/14 CBC w/ auto diff BA % % 0.0 2.0 0.4 FINAL [facility] [place], [address] [place] [id number] 0 Phone: () - 04/14 CBC w/ auto diff LY # K/uL 0.4 3.6 1.1 FINAL [facility] [place], [address] [place] [id number] 0 Phone: () - 04/14 CBC w/ auto diff MO # K/uL 0.2 1.3 0.4 FINAL [facility] [place], [address] [place] [id number] 0 Phone: () - 04/14 CBC w/ auto diff EO # K/uL 0.0 0.6 0.1 FINAL [facility] [place], [address] [place] [id number] 0 Phone: () - 04/14 CBC w/ auto diff BA # K/uL 0.0 0.2 0.0 FINAL [facility] [place], [address] [place] [id number] 0 Phone: () - 04/14 CBC w/ auto diff NRBC % #/100W BC 0.0 0.2 0.0 FINAL [facility] [place], [address] [place] [id number] 0 Phone: () - 04/14 CBC w/ auto diff RBC M/uL 3.9 5.1 3.58 Low FINAL [facility] [place], [address] [place] [id number] 0 Phone: () - 04/14 CBC w/ auto diff HCT % 35.0 48.0 36.8 FINAL [facility] [place], [address] [place] [id number] 0 Phone: () - 04/14 CBC w/ auto diff MCV fL 80.0 104.0 102.8 FINAL [facility] [place], [address] [place] [id number] 0 Phone: () - 04/14 CBC w/ auto diff MCH pg 26.0 35.0 34.6 FINAL [facility] [place], [address] [place] [id number] 0 Phone: () - 04/14 CBC w/ auto diff MCHC g/dL 30.0 35.0 33.7 FINAL [facility] [place], [address] [place] [id number] 0 Phone: () - 04/14 CBC w/ auto diff MPV fL 9.5 13.4 9.4 Low FINAL [facility] [place], [address] [facility] [address] [place] [id number] 0 Phone: () - 04/14 CBC w/ auto diff RDW % 11.4 16.1 12.10 FINAL [facility] [place], [address] [place] [address] d [address] [place] [id number] 0 Phone: () - 04/14 TSH w/ refle x to free T4 TSH uIU/ml 0.32 5.0 0.79 Test performed at [facility] on a HOMETRAX Immunoass ay Analyzer that uses an immunoenz ymometric sandwich assay for analysis. Patient testing should not be performed using multiple methodolo ginaun due to analytica l variation seen between test methodharley amador. 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 04/30 UA Micro scopi c WBC (ua) 0.0 2.0 21-50 Abnor mal FINAL [facility] [place], [address] [place] [address] d [address] [place] [id number] 0 Phone: () - 04/30 UA Micro scopi c RBC (ua) 0.0 2.0 3-5 Abnor mal FINAL [facility] [place], [address] [facility] [address] [place] [id number] 0 Phone: () - 04/30 UA Micro scopi c Epith elial cells (ua) Moderat e 6-10 Abnor mal FINAL [facility] [place], [address] [place], [place] [address] [facility] [address] [place] [id number] 0 Phone: () - 04/30 UA Micro scopi c Bacte aniya (ua) Few Abnor mal FINAL [facility] [place], [facility] [address] [place] [id number] 0 Phone: () - 04/30 UA Micro scopi c Mucus (ua) Negativ e FINAL [facility] [place], [address] [place] [id number] 0 Phone: () - 04/30 UA Micro scopi c Casts , urine None FINAL [facility] [place], [address] [place] [id number] 0 Phone: () - 04/30 UA Micro scopi c Cryst als (ua) None FINAL [facility] [place], [address] [place] [id number] 0 Phone: () - 04/30 UA Micro scopi c UA comme nt 1 Micro Positiv e-Cultu re Ordered Microsc opic perform ed on un-spun urine FINAL [facility] [place], [address] [place] [id number] 0 Phone: () - 04/30 Color (ua) Yellow FINAL [facility] [place], [address] [place] [id number] 0 Phone: () - 04/30 Appea serena (ua) Cloudy Abnor mal FINAL [facility] [place], [address] [place] [id number] 0 Phone: () - 04/30 Gluco se (ua), qual Negativ e FINAL [facility] [place], [address] [place] [id number] 0 Phone: () - 04/30 Bilir ubin (ua) Negativ e FINAL [facility] [place], [address] [place] [id number] 0 Phone: () - 04/30 Urina lysis , aceto ne or keton e rodriguez s measu remen t Negativ e FINAL [facility] [place], [address] [place] [id number] 0 Phone: () - 04/30 Speci fic gravi ty (ua) 1.005 1.02 1.020 FINAL [facility] [place], [address] [place] [id number] 0 Phone: () - 04/30 Blood (ua) 3+-Larg e Abnor mal FINAL [facility] [place], [address] [place] [id number] 0 Phone: () - 04/30 pH (ua) 5.0 8.0 6.0 FINAL [facility] [place], [address] [place] [id number] 0 Phone: () - 04/30 Prote in (ua) 1+ Abnor mal FINAL [facility] [place], [address] [place] [id number] 0 Phone: () - 04/30 Urobi linog en (ua) 0.2 1.0 0.2 FINAL [facility] [place], [address] [place] [id number] 0 Phone: () - 04/30 Nitri te (ua) Negativ e FINAL [facility] [place], [address] [place] [id number] 0 Phone: () - 04/30 Leuko cyte peter ase (ua), qual 2+-Mode rate Abnor mal FINAL [facility] [place], [address] [place] [id number] 0 Phone: () - 04/30 UA comme nt 1 Dipstic k Positiv e-Micro Ordered FINAL [facility] [place], [address] [place] [id number] 0 Phone: () - 04/30 Urine cultu re panel Final repor t, urine cultu re SEE RESULTS BELOW SOURCE: Urine VoidBacte aniya Identific ation in Isolate by Culture:5 0,000-100 ,000 CFU/mL of multiple organisms , probable contamina ntsTest Performed by:[facility] [address] - [facility] [place] [place] [address]Ulmi e : FINAL Oziel Box 05/28 CBC w/ auto diff WBC K/uL 3.0 8.9 6.9 FINAL [facility] [place], [address] [place] [id number] 0 Phone: () - 05/28 CBC w/ auto diff HGB g/dL 11.3 15.2 13.0 FINAL [facility] [place], [address] [place] [id number] 0 Phone: () - 05/28 CBC w/ auto diff PLT K/uL 113.0 364.0 183 FINAL [facility] [place], [address] [place] [id number] 0 Phone: () - 05/28 CBC w/ auto diff Dave # (ANC) K/uL 1.6 6.6 6.0 FINAL [facility] [place], [address] [place] [id number] 0 Phone: () - 05/28 CBC w/ auto diff Dave % % 43.0 74.0 86.6 High FINAL [facility] [place], [address] [place] [id number] 0 Phone: () - 05/28 CBC w/ auto diff IG % % 0.0 0.5 0.4 FINAL [facility] [place], [address] [place] [id number] 0 Phone: () - 05/28 CBC w/ auto diff IG # K/uL 0.0 0.03 0.03 FINAL [facility] [place], [address] [place] [id number] 0 Phone: () - 05/28 CBC w/ auto diff LY % % 14.0 41.0 9.1 Low FINAL [facility] [place], [address] [place] [id number] 0 Phone: () - 05/28 CBC w/ auto diff MO % % 6.0 15.0 3.5 Low FINAL [facility] [place], [address] [place] [id number] 0 Phone: () - 05/28 CBC w/ auto diff EO % % 0.0 7.0 0.1 FINAL [facility] [place], [address] [place] [id number] 0 Phone: () - 05/28 CBC w/ auto diff BA % % 0.0 2.0 0.3 FINAL [facility] [place], [address] [place] [id number] 0 Phone: () - 05/28 CBC w/ auto diff LY # K/uL 0.4 3.6 0.6 FINAL [facility] [place], [address] [place] [id number] 0 Phone: () - 05/28 CBC w/ auto diff MO # K/uL 0.2 1.3 0.2 FINAL [facility] [place], [address] [place] [id number] 0 Phone: () - 05/28 CBC w/ auto diff EO # K/uL 0.0 0.6 0.0 FINAL [facility] [place], [address] [place] [id number] 0 Phone: () - 05/28 CBC w/ auto diff BA # K/uL 0.0 0.2 0.0 FINAL [facility] [place], [address] [place] [id number] 0 Phone: () - 05/28 CBC w/ auto diff NRBC % #/100W BC 0.0 0.2 0.0 FINAL [facility] - [place], [address] [place] [id number] 0 Phone: () - 05/28 CBC w/ auto diff RBC M/uL 3.9 5.1 3.83 Low FINAL [facility] - [place], [address] [place] [id number] 0 Phone: () - 05/28 CBC w/ auto diff HCT % 35.0 48.0 38.6 FINAL [facility] - [place], [address] [place] [id number] 0 Phone: () - 05/28 CBC w/ auto diff MCV fL 80.0 104.0 100.8 FINAL [facility] - [place], [address] [place] [id number] 0 Phone: () - 05/28 CBC w/ auto diff MCH pg 26.0 35.0 33.9 FINAL [facility] - [place], [address] [place] [id number] 0 Phone: () - 05/28 CBC w/ auto diff MCHC g/dL 30.0 35.0 33.7 FINAL [facility] - [place], [address] [place] [id number] 0 Phone: () - 05/28 CBC w/ auto diff MPV fL 9.5 13.4 9.0 Low FINAL [facility] [place], [address] [place] [id number] 0 Phone: () - 05/28 CBC w/ auto diff RDW % 11.4 16.1 12.10 FINAL [facility] [place], [address] [facility] [place] [id number] 0 Phone: () - 05/28 CMP Alkal ine phosp hatas e U/L 46.0 116.0 45 Low FINAL Oziel angelo [facility], [address] [facility] [id number] 0 Phone: () - 05/28 CMP ALT/S GPT U/L 7.0 40.0 26 FINAL Oziel angel[facility], [address] [facility] [id number] 0 Phone: () - 05/28 CMP AST/S GOT U/L 13.0 40.0 24 FINAL Oziel angel[facility], [address] [facility] [id number] 0 Phone: () - 05/28 CMP BUN mg/dL 9.0 23.0 18 FINAL Oziel angelo [facility], [address] [facility] [id number] 0 Phone: () - 05/28 CMP Calci um mg/dL 8.7 10.4 9.8 FINAL Oziel angelo [facility], [address] [facility] [id number] 0 Phone: () - 05/28 CMP Chlor vipin mmol/L 96.0 114.0 108 FINAL Oziel angelo [facility], [address] [facility] [id number] 0 Phone: () - 05/28 CMP CO2 [...] 96 hour stability window. FINAL Oziel angelo [facility], [address] [id number] 0 Phone: () - 05/28 CMP Creat inine mg/dL 0.5 1.2 0.98 FINAL Oziel angelo [place] [address] [id number] 0 Phone: () - 05/28 CMP GFR estim ate ml/min /1.73m ^2 61.2 GFR is calculate d using the CKD-EPI equation. FINAL Oziel angelo [place] [address] [id number] 0 Phone: () - 05/28 CMP Gluco se mg/dL 73.0 126.0 111 FINAL Oziel angelo [place] [address] [id number] 0 Phone: () - 05/28 CMP Potas sium mmol/L 3.5 5.1 4.5 FINAL Oziel angelo [place] [address] [id number] 0 Phone: () - 05/28 CMP Sodiu m mmol/L 136.0 145.0 144 FINAL Oz[facility] angelo [place] [address] [id number] 0 Phone: () - 05/28 CMP Bilir ubin, total mg/dL 0.3 1.2 0.4 FINAL Oziel angelo [place] [address] [id number] 0 Phone: () - 05/28 CMP Total prote in g/dL 5.7 8.2 6.3 FINAL Oziel angelo [place] [address] [id number] 0 Phone: () - 05/28 CMP Album in g/dL 3.2 5.2 4.2 FINAL Oziel angelo [place] [address] [id number] 0 Phone: () - 05/28 TSH w/ refle x to free T4 TSH uIU/ml 0.32 5.0 1.08 Test performed at [facility] on a Tosoh 2000 Immunoass ay Analyzer that uses an immunoenz ymometric sandwich assay for analysis. Patient testing should not be performed using multiple kathi amador due to analytica l variation seen between test methodharley amador. FINAL Oziel angelo [place] [address] [id number] 0 Phone: () - 05/28 Speci men Sourc e Oral FINAL Oziel Box 05/28 HSV 1, PCR Negativ e FINAL [facility] Box 05/28 HSV 2, PCR Negativ e --------- --------- -ADDITION AL INFORMATI ON------- --------- ---This test was developed and its performan ce character isticsdet ermined by [facility] in a manner consisten t with CLIArequi rements. This test has not been cleared or approved bythe U.S. Food and Drug Administr ation.Farrah t Performed by:[facility] [place] [id number] Director: Kenneth Alvarenga M.D. Ph.D.; CLIA# [id number] FINAL [facility] Box 05/30 [facility] other lab See attache hughes 07/02 CMP Album in g/dL 3.2 5.2 4.2 FINAL Oziel angelo [place] [address] [id number] 0 Phone: () - 07/02 CMP Alkal ine phosp hatas e U/L 46.0 116.0 52 FINAL Oziel angelo [facility] [address] [facility] 100 [facility] [id number] [phone] Phone: () - 07/02 CMP ALT/S GPT U/L 7.0 40.0 18 FINAL Oziel angelo [place] [address] [address] [facility] 100 [facility] [id number] 0 Phone: () - 07/02 CMP AST/S GOT U/L 13.0 40.0 22 FINAL Oziel angelo [facility] [address] [facility] [id number] 0 Phone: () - 07/02 CMP BUN mg/dL 9.0 23.0 23 FINAL Oziel angelo [place] [address] [id number] 0 Phone: () - 07/02 CMP Calci um mg/dL 8.7 10.4 9.9 FINAL Oziel angelo [facility] [address] [id number] 0 Phone: () - 07/02 CMP Chlor vipin mmol/L 96.0 114.0 110 FINAL Oziel angelo [place] [address] [address] [facility] 100 [facility] [id number] 0 Phone: () - 07/02 CMP CO2 [...] 96 hour stability window. FINAL Oziel angelo [place] [address] [id number] 0 Phone: () - 07/02 CMP Creat inine mg/dL 0.5 1.2 1.02 FINAL Oziel angelo [place] [address] [id number] 0 Phone: () - 07/02 CMP GFR estim ate ml/min /1.73m ^2 58.3 Low GFR is calculate d using the CKD-EPI equation. FINAL Oziel angelo [place] [address] [id number] 0 Phone: () - 07/02 CMP Gluco se mg/dL 73.0 126.0 72 Low FINAL Oziel angelo [place] [address] [address] [facility] 100 [facility] [id number] 0 Phone: () - 07/02 CMP Potas sium mmol/L 3.5 5.1 4.2 FINAL Oziel angelo [place] [address] [address] [facility] [address] [facility] [id number] 0 Phone: () - 07/02 CMP Sodiu m mmol/L 136.0 145.0 145 FINAL Oziel angelo On[facility], [address] [facility] [id number] 0 Phone: () - 07/02 CMP Bilir ubin, total mg/dL 0.3 1.2 0.5 FINAL zOiel angelo Oncology [facility], [address] [facility] [id number] 0 Phone: () - 07/02 CMP Total prote in g/dL 5.7 8.2 6.5 FINAL Oziel angelo Oncology [facility], [address] [facility] [id number] 0 Phone: () - 07/02 CBC w/ auto diff WBC K/uL 3.0 8.9 5.0 FINAL Oziel angelo [facility] - [place], [address] [facility] [id number] 0 Phone: () - 07/02 CBC w/ auto diff HGB g/dL 11.3 15.2 12.6 FINAL Oziel angelo [facility] - [place], [address] [place] [id number] 0 Phone: () - 07/02 CBC w/ auto diff PLT K/uL 113.0 364.0 232 FINAL Oziel angelo [facility] - [place], [address] [place] [id number] 0 Phone: () - 07/02 CBC w/ auto diff Dave # (ANC) K/uL 1.6 6.6 3.2 FINAL Oziel angelo [facility] - [place], [address] [place] [id number] 0 Phone: () - 07/02 CBC w/ auto diff Dave % % 43.0 74.0 63.5 FINAL Oziel angelo [facility] - [place], [address] [place] [id number] 0 Phone: () - 07/02 CBC w/ auto diff IG % % 0.0 0.5 0.2 FINAL Oziel Tilleyot a [facility] - [place], [address] [place] [id number] 0 Phone: () - 07/02 CBC w/ auto diff IG # K/uL 0.0 0.03 0.01 FINAL Oziel T[facility]ley[facility] a [facility] - [place], [address] [place] [id number] 0 Phone: () - 07/02 CBC w/ auto diff LY % % 14.0 41.0 24.1 FINAL Oziel Tilleyot a [facility] - [place], [address] [place] [id number] 0 Phone: () - 07/02 CBC w/ auto diff MO % % 6.0 15.0 9.4 FINAL Oziel T[facility]ley[facility] a [facility] - [place], [address] [place] [id number] 0 Phone: () - 07/02 CBC w/ auto diff EO % % 0.0 7.0 2.2 FINAL Oziel [facility] a [facility] - [place], [address] [place] [id number] 0 Phone: () - 07/02 CBC w/ auto diff BA % % 0.0 2.0 0.6 FINAL Oziel T[facility]ley[facility] a [facility] - [place], [address] [place] [id number] 0 Phone: () - 07/02 CBC w/ auto diff LY # K/uL 0.4 3.6 1.2 FINAL Oziel T[facility] a [facility] - [place], [address] [place] [id number] 0 Phone: () - 07/02 CBC w/ auto diff MO # K/uL 0.2 1.3 0.5 FINAL Oziel [facility] a [facility] - [place], [address] [place] [id number] 0 Phone: () - 07/02 CBC w/ auto diff EO # K/uL 0.0 0.6 0.1 FINAL Oziel [facility] a [facility] - [place], [address] [place] [id number] 0 Phone: () - 07/02 CBC w/ auto diff BA # K/uL 0.0 0.2 0.0 FINAL Oziel T[facility]ley[facility] a [facility] - [place], [address] [place] [id number] 0 Phone: () - 07/02 CBC w/ auto diff NRBC % #/100W BC 0.0 0.2 0.0 FINAL Oziel Tilleyot gi [facility] - [place], [address] [place] [id number] 0 Phone: () - 07/02 CBC w/ auto diff RBC M/uL 3.9 5.1 3.86 Low FINAL Oziel Tilley[facility] gi [facility] - [place], [address] [place] [id number] 0 Phone: () - 07/02 CBC w/ auto diff HCT % 35.0 48.0 37.7 FINAL Oziel angelo [facility] - [place], [address] [place] [id number] 0 Phone: () - 07/02 CBC w/ auto diff MCV fL 80.0 104.0 97.7 FINAL Oziel Tilleyot gi [facility] - [place], [address] [place] [id number] 0 Phone: () - 07/02 CBC w/ auto diff MCH pg 26.0 35.0 32.6 FINAL Oziel Tilley[facility] gi [facility] - [place], [address] [place] [id number] 0 Phone: () - 07/02 CBC w/ auto diff MCHC g/dL 30.0 35.0 33.4 FINAL Oziel Tilley[facility] a [facility] - [place], [address] [place] [id number] 0 Phone: () - 07/02 CBC w/ auto diff MPV fL 9.5 13.4 9.0 Low FINAL Oziel angelo [facility] - [place], [address] [facility] [address] [facility] [place] [id number] 0 Phone: () - 07/02 CBC w/ auto diff RDW % 11.4 16.1 13.10 FINAL Oziel angelo [facility] - [place], [address] [facility] [address] [facility] [place] [id number] 0 Phone: () - 07/02 T4, free panel T4, free ng/dL 0.7 1.8 0.86 Test performed at [facility] on a [employer] 2000 Immunoass ay Analyzer that uses an immunoenz ymometric sandwich assay for analysis. Patient testing should not be performed using multiple methodolo gies due to analytica l variation seen between test methodolo gies. FINAL Oziel angelo Oncology [facility], [address] [facility] [address] [facility] [id number] 0 Phone: () - 07/02 TSH w/ refle x to free T4 TSH uIU/ml 0.32 5.0 6.12 High Test performed at [facility] on a [employer] 2000 Immunoass ay Analyzer that uses an immunoenz ymometric sandwich assay for analysis. Patient testing should not be performed using multiple methodolo gies due to analytica l variation seen between test methodolo gies. FINAL Oziel angelo Oncology [facility], [address] [facility] [address] [facility] [id number] 0 Phone: () - 07/30 CBC w/ auto diff WBC K/uL 3.0 8.9 6.0 FINAL Oziel angelo [facility] - [place], [address] [facility] [address] [facility] [place] [id number] 0 Phone: () - 07/30 CBC w/ auto diff HGB g/dL 11.3 15.2 11.2 Low FINAL Oziel angelo [facility] - [place], [address] [facility] [address] [facility] [place] [id number] 0 Phone: () - 07/30 CBC w/ auto diff PLT K/uL 113.0 364.0 220 FINAL Oziel Box [place] [facility] - [place], [address] [place] [id number] 0 Phone: () - 07/30 CBC w/ auto diff Dave # (ANC) K/uL 1.6 6.6 5.0 FINAL Oziel Tilleyot a [facility] - [place], [address] [place] [id number] 0 Phone: () - 07/30 CBC w/ auto diff Dave % % 43.0 74.0 84.4 High FINAL Oziel Tilley[facility] a [facility] - [place], [address] [place] [id number] 0 Phone: () - 07/30 CBC w/ auto diff IG % % 0.0 0.5 0.2 FINAL Oziel Tilley[facility] a [facility] - [place], [address] [place] [id number] 0 Phone: () - 07/30 CBC w/ auto diff IG # K/uL 0.0 0.03 0.01 FINAL Oziel Tilley[facility] a [facility] - [place], [address] [place] [id number] 0 Phone: () - 07/30 CBC w/ auto diff LY % % 14.0 41.0 10.4 Low FINAL Oziel Tilley[facility] a [facility] - [place], [address] [place] [id number] 0 Phone: () - 07/30 CBC w/ auto diff MO % % 6.0 15.0 4.4 Low FINAL Oziel Tilley[facility] a [facility] - [place], [address] [place] [id number] 0 Phone: () - 07/30 CBC w/ auto diff EO % % 0.0 7.0 0.3 FINAL Oziel [facility] a [facility] - [place], [address] [place] [id number] 0 Phone: () - 07/30 CBC w/ auto diff BA % % 0.0 2.0 0.3 FINAL Oziel T[facility]ley[facility] a [facility] - [place], [address] [place] [id number] 0 Phone: () - 07/30 CBC w/ auto diff LY # K/uL 0.4 3.6 0.6 FINAL Oziel [facility] a [facility] - [place], [address] [place] [id number] 0 Phone: () - 07/30 CBC w/ auto diff MO # K/uL 0.2 1.3 0.3 FINAL Oziel T[facility] a [facility] - [place], [address] [place] [id number] 0 Phone: () - 07/30 CBC w/ auto diff EO # K/uL 0.0 0.6 0.0 FINAL Oziel T[facility] a [facility] - [place], [address] [place] [id number] 0 Phone: () - 07/30 CBC w/ auto diff BA # K/uL 0.0 0.2 0.0 FINAL Oziel T[facility]ley[facility] a [facility] - [place], [address] [place] [id number] 0 Phone: () - 07/30 CBC w/ auto diff NRBC % #/100W BC 0.0 0.2 0.0 FINAL Oziel T[facility] a [facility] - [place], [address] [place] [id number] 0 Phone: () - 07/30 CBC w/ auto diff RBC M/uL 3.9 5.1 3.39 Low FINAL Oziel Tilley[facility] a [facility] - [place], [address] [place] [id number] 0 Phone: () - 07/30 CBC w/ auto diff HCT % 35.0 48.0 34.0 Low FINAL Oziel Tilley[facility] a [facility] - [place], [address] [place] [id number] 0 Phone: () - 07/30 CBC w/ auto diff MCV fL 80.0 104.0 100.3 FINAL Oziel angelo [facility] - [place], [address] [place] [id number] 0 Phone: () - 07/30 CBC w/ auto diff MCH pg 26.0 35.0 33.0 FINAL Oziel angelo [facility] - [place], [address] [place] [id number] 0 Phone: () - 07/30 CBC w/ auto diff MCHC g/dL 30.0 35.0 32.9 FINAL Oziel angelo [facility] - [place], [address] [place] [id number] 0 Phone: () - 07/30 CBC w/ auto diff MPV fL 9.5 13.4 9.0 Low FINAL Oziel angelo [facility] - [place], [address] [place] [id number] 0 Phone: () - 07/30 CBC w/ auto diff RDW % 11.4 16.1 14.60 FINAL Oziel angelo [facility] - [place], [address] [place] [id number] 0 Phone: () - 07/30 TSH w/ refle x to free T4 TSH uIU/ml 0.32 5.0 4.12 Test performed at [facility] on a [employer] 2000 Immunoass ay Analyzer that uses an immunoenz ymometric sandwich assay for analysis. Patient testing should not be performed using multiple methodolo gies due to analytica l variation seen between test methodolo gies. FINAL Oziel angelo Oncology [facility], [address] [place] [id number] 0 Phone: () - 07/30 CMP Album in g/dL 3.2 5.2 4.3 FINAL Oziel angelo [facility], [address] [place] [id number] 0 Phone: () - 07/30 CMP Alkal ine phosp hatas e U/L 46.0 116.0 66 FINAL Oziel angelo [facility], [address] [facility] [address] [facility] [id number] 0 Phone: () - 07/30 CMP ALT/S GPT U/L 7.0 40.0 15 FINAL Oziel angelo [facility], [address] [facility] 100 [facility] [id number] 0 Phone: () - 07/30 CMP AST/S GOT U/L 13.0 40.0 22 FINAL Oziel angelo [place] [address] [address] [facility] 100 [facility] [id number] 0 Phone: () - 07/30 CMP BUN mg/dL 9.0 23.0 18 FINAL Oziel angelo [place] [address] [address] [facility] 100 [facility] [id number] 0 Phone: () - 07/30 CMP Calci um mg/dL 8.7 10.4 9.7 FINAL Oziel angelo [place] [address] [address] [facility] 100 [facility] [id number] 0 Phone: () - 07/30 CMP Chlor vipin mmol/L 96.0 114.0 110 FINAL Oziel angelo [facility], [address] [facility] 100 [facility] [id number] 0 Phone: () - 07/30 CMP CO2 [...] 96 hour stability window. FINAL Oziel angelo [facility], [address] [facility] [address] [facility] [id number] 0 Phone: () - 07/30 CMP Creat inine mg/dL 0.5 1.2 0.94 FINAL Oziel angelo [facility] [address] [facility] 100 [facility] [id number] 0 Phone: () - 07/30 CMP GFR estim ate ml/min /1.73m ^2 64.3 GFR is calculate d using the CKD-EPI equation. FINAL Oziel angelo [facility], [address] [id number] 0 Phone: () - 07/30 CMP Gluco se mg/dL 73.0 126.0 108 FINAL Oziel angelo [facility] [address] [facility] 100 [facility] [id number] 0 Phone: () - 07/30 CMP Potas sium mmol/L 3.5 5.1 4.6 FINAL Oziel angelo [facility] [address] [id number] 0 Phone: () - 07/30 CMP Sodiu m mmol/L 136.0 145.0 143 FINAL Oziel angelo [place] [address] [id number] 0 Phone: () - 07/30 CMP Bilir ubin, total mg/dL 0.3 1.2 0.3 FINAL Oziel angelo [facility] [address] [id number] 0 Phone: () - 07/30 CMP Total prote in g/dL 5.7 8.2 6.4 FINAL Oziel angelo [place] [address] [id number] 0 Phone: () - 07/30 Hepat itis C antib taylor panel HCV Ab, S Negativ e Signal-to -cutoff ratio is <1.00.Farrah t Performed by:[address] Director: Kenneth Alvarenga M.D. Ph.D.; CLIA# [id number] FINAL Oziel Box 08/27 TSH w/ refle x to free T4 TSH uIU/ml 0.32 5.0 6.32 High Test performed at [facility] on a HOM[employer] Immunoass ay Analyzer that uses an immunoenz ymometric sandwich assay for analysis. Patient testing should not be performed using multiple methodharley amador due to analytica l variation seen between test methodharley amador. FINAL Oziel angelo [facility], [facility] [address] [id number] 0 Phone: () - 08/27 CBC w/ auto diff WBC K/uL 3.0 8.9 4.4 FINAL Oziel Tilley[facility] gi [facility] - [place], [address] [place] [id number] 0 Phone: () - 08/27 CBC w/ auto diff HGB g/dL 11.3 15.2 10.5 Low FINAL Oziel T[facility] - [place], [address] [place] [id number] 0 Phone: () - 08/27 CBC w/ auto diff PLT K/uL 113.0 364.0 226 FINAL Oziel Tilley[facility] a [facility] - [place], [address] [place] [id number] 0 Phone: () - 08/27 CBC w/ auto diff Dave # (ANC) K/uL 1.6 6.6 2.5 FINAL Oziel angelo [facility] - [place], [address] [place] [id number] 0 Phone: () - 08/27 CBC w/ auto diff Dave % % 43.0 74.0 56.5 FINAL Oziel angelo [facility] - [place], [address] [place] [id number] 0 Phone: () - 08/27 CBC w/ auto diff IG % % 0.0 0.5 0.2 FINAL Oziel angelo [facility] - [place], [address] [place] [id number] 0 Phone: () - 08/27 CBC w/ auto diff IG # K/uL 0.0 0.03 0.01 FINAL Oziel [facility] - [place], [address] [place] [id number] 0 Phone: () - 08/27 CBC w/ auto diff LY % % 14.0 41.0 29.6 FINAL Oziel [facility] a [facility] - [place], [address] [place] [id number] 0 Phone: () - 08/27 CBC w/ auto diff MO % % 6.0 15.0 9.3 FINAL Oziel angelo [facility] - [place], [address] [place] [id number] 0 Phone: () - 08/27 CBC w/ auto diff EO % % 0.0 7.0 3.9 FINAL Oziel angelo [facility] - [place], [address] [place] [id number] 0 Phone: () - 08/27 CBC w/ auto diff BA % % 0.0 2.0 0.5 FINAL Oziel angelo [facility] - [place], [address] [facility] [address] [place] [id number] 0 Phone: () - 08/27 CBC w/ auto diff LY # K/uL 0.4 3.6 1.3 FINAL Oziel angelo [facility] - [place], [address] [facility] [address] [place] [id number] 0 Phone: () - 08/27 CBC w/ auto diff MO # K/uL 0.2 1.3 0.4 FINAL Oziel angelo [facility] - [place], [address] [facility] [address] [place] [id number] 0 Phone: () - 08/27 CBC w/ auto diff EO # K/uL 0.0 0.6 0.2 FINAL Oziel angelo [facility] - [place], [address] [place] [id number] 0 Phone: () - 08/27 CBC w/ auto diff BA # K/uL 0.0 0.2 0.0 FINAL Oziel angelo [facility] - [place], [address] [place] [id number] 0 Phone: () - 08/27 CBC w/ auto diff NRBC % #/100W BC 0.0 0.2 0.0 FINAL Oziel angelo [facility] - [place], [address] [place] [id number] 0 Phone: () - 08/27 CBC w/ auto diff RBC M/uL 3.9 5.1 3.17 Low FINAL Oziel Tol[place] a [facility] - [place], [address] [place] [id number] 0 Phone: () - 08/27 CBC w/ auto diff HCT % 35.0 48.0 32.0 Low FINAL Oziel [facility] a [facility] - [place], [address] [facility] [address] [place] [id number] 0 Phone: () - 08/27 CBC w/ auto diff MCV fL 80.0 104.0 100.9 FINAL Oziel angelo [facility] - [place], [address] [facility] [address] [place] [id number] 0 Phone: () - 08/27 CBC w/ auto diff MCH pg 26.0 35.0 33.1 FINAL Oziel angelo [facility] - [place], [address] [facility] [address] [place] [id number] 0 Phone: () - 08/27 CBC w/ auto diff MCHC g/dL 30.0 35.0 32.8 FINAL Oziel angelo [facility] - [place], [address] [facility] [address] [place] [id number] 0 Phone: () - 08/27 CBC w/ auto diff MPV fL 9.5 13.4 9.1 Low FINAL Oziel angelo [facility] - [place], [address] [place] [id number] 0 Phone: () - 08/27 CBC w/ auto diff RDW % 11.4 16.1 13.80 FINAL Oziel angelo [facility] - [place], [address] [place] [id number] 0 Phone: () - 08/27 CMP Album in g/dL 3.2 5.2 4.0 FINAL Oziel Tilley[facility] a [facility] - [place], [address] [place] [id number] 0 Phone: () - 08/27 CMP Alkal ine phosp hatas e U/L 46.0 116.0 71 FINAL Oziel angelo [facility], [address] [facility] [address] [id number] 0 Phone: () - 08/27 CMP ALT/S GPT U/L 7.0 40.0 11 FINAL Oziel angelo [facility] [address] [facility] [address] [id number] 0 Phone: () - 08/27 CMP AST/S GOT U/L 13.0 40.0 18 FINAL Oziel angelo [place] [address] [address] [facility] [address] [id number] 0 Phone: () - 08/27 CMP BUN mg/dL 9.0 23.0 16 FINAL Oziel angelo [place] [address] [id number] 0 Phone: () - 08/27 CMP Calci um mg/dL 8.7 10.4 9.5 FINAL Oziel angelo [place] [address] [address] [facility] [address] [id number] 0 Phone: () - 08/27 CMP Chlor vipin mmol/L 96.0 114.0 110 FINAL Oziel angelo [facility], [facility] N [address] [id number] 0 Phone: () - 08/27 CMP CO2 [...] 96 hour stability window. FINAL Oziel angelo [facility], [facility] N [facility] [address] [id number] 0 Phone: () - 08/27 CMP Creat inine mg/dL 0.5 1.2 0.84 FINAL Oziel angelo [facility], [facility] N [facility] [address] [id number] 0 Phone: () - 08/27 CMP GFR estim ate ml/min /1.73m ^2 73.5 GFR is calculate d using the CKD-EPI equation. FINAL Oziel angelo [place] [address] [id number] 0 Phone: () - 08/27 CMP Gluco se mg/dL 73.0 126.0 84 FINAL Oziel angelo [place] [address] [id number] 0 Phone: () - 08/27 CMP Potas sium mmol/L 3.5 5.1 4.4 FINAL Oziel angelo [place] [address] [id number] 0 Phone: () - 08/27 CMP Sodiu m mmol/L 136.0 145.0 142 FINAL Oziel angelo [place] [address] [id number] 0 Phone: () - 08/27 CMP Bilir ubin, total mg/dL 0.3 1.2 0.3 FINAL Oziel angelo [place] [address] [id number] 0 Phone: () - 08/27 CMP Total prote in g/dL 5.7 8.2 6.1 FINAL Oziel angelo [place] [address] [id number] 0 Phone: () - 08/27 T4, free panel T4, free ng/dL 0.7 1.8 0.69 Low Test performed at [facility] on a HOM[employer] Immunoass ay Analyzer that uses an immunoenz ymometric sandwich assay for analysis. Patient testing should not be performed using multiple kathi amador due to analytica l variation seen between test kathi amador. FINAL Oziel angelo [place] [address] [id number] 0 Phone: () - 09/26 TSH w/ refle x to free T4 TSH uIU/ml 0.32 5.0 1.33 Test performed at [facility] on a [employer] Immunoass ay Analyzer that uses an immunoenz ymometric sandwich assay for analysis. Patient testing should not be performed using multiple methodharley amador due to analytica l variation seen between test methodharley amador. FINAL Oziel angelo [place] [address] [id number] 0 Phone: () - 09/26 CMP Album in g/dL 3.2 5.2 4.3 FINAL Oziel angelo [address] [id number] 0 Phone: () - 09/26 CMP Alkal ine phosp hatas e U/L 46.0 116.0 65 FINAL Oziel angelo [address] [id number] 0 Phone: () - 09/26 CMP ALT/S GPT U/L 7.0 40.0 8 FINAL Oziel angelo [address] [id number] 0 Phone: () - 09/26 CMP AST/S GOT U/L 13.0 40.0 17 FINAL Oziel angelo [place] [address] [id number] 0 Phone: () - 09/26 CMP BUN mg/dL 9.0 23.0 21 FINAL Oziel angelo [place] [address] [id number] 0 Phone: () - 09/26 CMP Calci um mg/dL 8.7 10.4 9.2 FINAL Oziel angelo [place] [address] [id number] 0 Phone: () - 09/26 CMP Chlor vipin mmol/L 96.0 114.0 111 FINAL Oziel angelo [address] [id number] 0 Phone: () - 09/26 CMP CO2 [...] 96 hour stability window. FINAL Oziel angelo [place] [address] [id number] 0 Phone: () - 09/26 CMP Creat inine mg/dL 0.5 1.2 0.79 FINAL Oziel angelo [place] [address] [id number] 0 Phone: () - 09/26 CMP GFR estim ate ml/min /1.73m ^2 79.1 GFR is calculate d using the CKD-EPI equation. FINAL Oziel angelo [address] [id number] 0 Phone: () - 09/26 CMP Gluco se mg/dL 73.0 126.0 83 FINAL Oziel angelo [place] [address] [id number] 0 Phone: () - 09/26 CMP Potas sium mmol/L 3.5 5.1 4.4 FINAL Oziel angelo [place] [address] [id number] 0 Phone: () - 09/26 CMP Sodiu m mmol/L 136.0 145.0 143 FINAL Oziel angelo [place] [address] [id number] 0 Phone: () - 09/26 CMP Bilir ubin, total mg/dL 0.3 1.2 0.3 FINAL Oziel angelo [place] [address] [id number] 0 Phone: () - 09/26 CMP Total prote in g/dL 5.7 8.2 6.3 FINAL Oziel angelo [place] [address] [address] [facility] [address] [id number] 0 Phone: () - 09/26 CBC w/ auto diff WBC K/uL 3.0 8.9 4.1 FINAL Oziel angelo [facility], [address] [place] [id number] 0 Phone: () - 09/26 CBC w/ auto diff HGB g/dL 11.3 15.2 11.3 FINAL Oziel [facility] [place], [address] [place] [id number] 0 Phone: () - 09/26 CBC w/ auto diff PLT K/uL 113.0 364.0 210 FINAL Oziel [facility] - [place], [address] [place] [id number] 0 Phone: () - 09/26 CBC w/ auto diff Dave # (ANC) K/uL 1.6 6.6 2.4 FINAL Oziel angelo [facility] - [place], [address] [address] [place] [id number] 0 Phone: () - 09/26 CBC w/ auto diff Dave % % 43.0 74.0 58.2 FINAL [facility] [place], [address] [place] [id number] 0 Phone: () - 09/26 CBC w/ auto diff IG % % 0.0 0.5 0.2 FINAL [facility] - [place], [address] [place] [id number] 0 Phone: () - 09/26 CBC w/ auto diff IG # K/uL 0.0 0.03 0.01 FINAL [facility] - [place], [address] [place] [id number] 0 Phone: () - 09/26 CBC w/ auto diff LY % % 14.0 41.0 27.0 FINAL [facility] - [place], [address] [place] [id number] 0 Phone: () - 09/26 CBC w/ auto diff MO % % 6.0 15.0 10.5 FINAL [facility] - [place], [address] [place] [id number] 0 Phone: () - 09/26 CBC w/ auto diff EO % % 0.0 7.0 3.6 FINAL [facility] - [place], [address] [place] [id number] 0 Phone: () - 09/26 CBC w/ auto diff BA % % 0.0 2.0 0.5 FINAL [facility] - [place], [address] [place] [id number] 0 Phone: () - 09/26 CBC w/ auto diff LY # K/uL 0.4 3.6 1.1 FINAL Oziel Tolbert a [facility] - [place], [address] [place] [id number] 0 Phone: () - 09/26 CBC w/ auto diff MO # K/uL 0.2 1.3 0.4 FINAL [facility] - [place], [address] [place] [id number] 0 Phone: () - 09/26 CBC w/ auto diff EO # K/uL 0.0 0.6 0.2 FINAL [facility] [place], [address] [place] [id number] 0 Phone: () - 09/26 CBC w/ auto diff BA # K/uL 0.0 0.2 0.0 FINAL [facility] - [place], [address] [place] [id number] 0 Phone: () - 09/26 CBC w/ auto diff NRBC % #/100W BC 0.0 0.2 0.0 FINAL [facility] - [place], [address] [place] [id number] 0 Phone: () - 09/26 CBC w/ auto diff RBC M/uL 3.9 5.1 3.38 Low FINAL [facility] [place] [facility] [place], [address] [place] [id number] 0 Phone: () - 09/26 CBC w/ auto diff HCT % 35.0 48.0 34.3 Low FINAL [facility] - [place], [address] [place] [id number] 0 Phone: () - 09/26 CBC w/ auto diff MCV fL 80.0 104.0 101.5 FINAL [facility] [place], [address] [place] [id number] 0 Phone: () - 09/26 CBC w/ auto diff MCH pg 26.0 35.0 33.4 FINAL [facility] - [place], [address] [place] [id number] 0 Phone: () - 09/26 CBC w/ auto diff MCHC g/dL 30.0 35.0 32.9 FINAL [facility] - [place], [address] [place] [id number] 0 Phone: () - 09/26 CBC w/ auto diff MPV fL 9.5 13.4 8.9 Low FINAL [facility] - [place], [address] [place] [id number] 0 Phone: () - 09/26 CBC w/ auto diff RDW % 11.4 16.1 12.60 FINAL [facility] - [place], [address] [place] [id number] 0 Phone: () - 10/24 T4, free panel T4, free ng/dL 0.7 1.8 1.62 Test performed at [facility] on a Nimbus Discoveryass ay Analyzer that uses an immunoenz ymometric sandwich assay for analysis. Patient testing should not be performed using multiple kathi amador due to analytica l variation seen between test methodharley amador. FINAL Lia Delgado [facility] [place], [address] [id number] 0 Phone: () - 10/24 CMP Album in g/dL 3.2 5.2 4.3 FINAL Lia Delgado [place] [address] [address] [facility] [address] [id number] 0 Phone: () - 10/24 CMP Alkal ine phosp hatas e U/L 46.0 116.0 59 FINAL Lia [place] [address] [address] [facility] [address] [id number] 0 Phone: () - 10/24 CMP ALT/S GPT U/L 7.0 40.0 12 FINAL [place] [address] [address] [facility] [address] [id number] 0 Phone: () - 10/24 CMP AST/S GOT U/L 13.0 40.0 22 FINAL [place] [address] [address] [facility] [address] [id number] 0 Phone: () - 10/24 CMP BUN mg/dL 9.0 23.0 16 FINAL Lia [place] [address] [address] [facility] [address] [id number] 0 Phone: () - 10/24 CMP Calci um mg/dL 8.7 10.4 9.7 FINAL [place] [address] [address] [facility] [address] [id number] 0 Phone: () - 10/24 CMP Chlor vipin mmol/L 96.0 114.0 110 FINAL [facility] [address] [id number] 0 Phone: () - 10/24 CMP CO2 [...] of the 96 hour stability window. FINAL [place] [address] [id number] 0 Phone: () - 10/24 CMP Creat inine mg/dL 0.5 1.2 0.83 FINAL Lia [address] [id number] 0 Phone: () - 10/24 CMP GFR estim ate ml/min /1.73m ^2 74.5 GFR is calculate d using the CKD-EPI equation. FINAL [address] [id number] 0 Phone: () - 10/24 CMP Gluco se mg/dL 73.0 126.0 [address] [id number] 0 Phone: () - 10/24 CMP Potas sium mmol/L 3.5 5.1 4.[address] [id number] 0 Phone: () - 10/24 CMP Sodiu m mmol/L 136.0 145.0 [address] [id number] 0 Phone: () - 10/24 CMP Bilir ubin, total mg/dL 0.3 1.2 0.[address] [id number] 0 Phone: () - 10/24 CMP Total prote in g/dL 5.7 8.2 6.[address] [id number] 0 Phone: () - 10/24 TSH w/ refle x to free T4 TSH uIU/ml 0.32 5.0 0.05 Low Test performed at [facility] on a Clinip[employer] 2000 Immunoass ay Analyzer that uses an immunoenz ymometric sandwich assay for analysis. Patient testing should not be performed using multiple kathi amador due to analytica l variation seen between test kathi amador. FINAL [facility] - [place], [address] [place] [id number] 0 Phone: () - 10/24 CBC w/ auto diff WBC K/uL 3.0 8.9 5.5 FINAL [facility] - [place], [address] [place] [id number] 0 Phone: () - 10/24 CBC w/ auto diff HGB g/dL 11.3 15.2 12.0 FINAL Lia Tolbert [facility] - [place], [address] [place] [id number] 0 Phone: () - 10/24 CBC w/ auto diff PLT K/uL 113.0 364.0 211 FINAL [facility] - [place], [address] [place] [id number] 0 Phone: () - 10/24 CBC w/ auto diff Dave # (ANC) K/uL 1.6 6.6 3.4 FINAL Lia [facility] - [place], [address] [place] [id number] 0 Phone: () - 10/24 CBC w/ auto diff Dave % % 43.0 74.0 62.4 FINAL Lia [facility] - [place], [address] [place] [id number] 0 Phone: () - 10/24 CBC w/ auto diff IG % % 0.0 0.5 1.1 High FINAL [facility] - [place], [address] [place] [id number] 0 Phone: () - 10/24 CBC w/ auto diff IG # K/uL 0.0 0.03 0.06 High FINAL [facility] - [place], [address] [place] [id number] 0 Phone: () - 10/24 CBC w/ auto diff LY % % 14.0 41.0 22.2 FINAL [facility] - [place], [address] [place] [id number] 0 Phone: () - 10/24 CBC w/ auto diff MO % % 6.0 15.0 10.1 FINAL [facility] - [place], [address] [place] [id number] 0 Phone: () - 10/24 CBC w/ auto diff EO % % 0.0 7.0 3.8 FINAL [facility] - [place], [address] [place] [id number] 0 Phone: () - 10/24 CBC w/ auto diff BA % % 0.0 2.0 0.4 FINAL [facility] - [place], [address] [place] [id number] 0 Phone: () - 10/24 CBC w/ auto diff LY # K/uL 0.4 3.6 1.2 FINAL iLa [facility] - [place], [address] [place] [id number] 0 Phone: () - 10/24 CBC w/ auto diff MO # K/uL 0.2 1.3 0.6 FINAL [facility] - [place], [address] [place] [id number] 0 Phone: () - 10/24 CBC w/ auto diff EO # K/uL 0.0 0.6 0.2 FINAL [facility] - [place], [address] [place] [id number] 0 Phone: () - 10/24 CBC w/ auto diff BA # K/uL 0.0 0.2 0.0 FINAL [facility] - [place], [address] [place] [id number] 0 Phone: () - 10/24 CBC w/ auto diff NRBC % #/100W BC 0.0 0.2 0.0 FINAL [facility] - [place], [address] [facility] [address] [place] [id number] 0 Phone: () - 10/24 CBC w/ auto diff RBC M/uL 3.9 5.1 3.62 Low FINAL [facility] - [place], [address] [facility] [address] [place] [id number] 0 Phone: () - 10/24 CBC w/ auto diff HCT % 35.0 48.0 35.7 FINAL [facility] - [place], [address] [facility] [address] [place] [id number] 0 Phone: () - 10/24 CBC w/ auto diff MCV fL 80.0 104.0 98.6 FINAL [facility] - [place], [address] [facility] [address] [place] [id number] 0 Phone: () - 10/24 CBC w/ auto diff MCH pg 26.0 35.0 33.1 FINAL [facility] - [place], [address] [facility] [address] [place] [id number] 0 Phone: () - 10/24 CBC w/ auto diff MCHC g/dL 30.0 35.0 33.6 FINAL [facility] - [place], [address] [facility] [address] [place] [id number] 0 Phone: () - 10/24 CBC w/ auto diff MPV fL 9.5 13.4 9.1 Low FINAL [facility] - [place], [address] [place] [id number] 0 Phone: () - 10/24 CBC w/ auto diff RDW % 11.4 16.1 12.20 FINAL Lia [facility] - [place], [address] [place] [id number] 0 Phone: () - 11/21 TSH w/ refle x to free T4 TSH uIU/ml 0.32 5.0 0.16 Low Test performed at [facility] on a HOMETRAX Immunoass ay Analyzer that uses an immunoenz ymometric sandwich assay for analysis. Patient testing should not be performed using multiple methodharley amador due to analytica l variation seen between test methodharley amador. FINAL Lia Tilley [facility] - [place], [address] [place] [id number] 0 Phone: () - 11/21 CBC w/ auto diff WBC K/uL 3.0 8.9 4.1 FINAL [facility] - [place], [address] [place] [address] [address] [place] [facility] [id number] 0 Phone: () - 11/21 CBC w/ auto diff HGB g/dL 11.3 15.2 11.8 FINAL [facility] - [place], [address] [place] [address] [address] [place] [facility] [id number] 0 Phone: () - 11/21 CBC w/ auto diff PLT K/uL 113.0 364.0 223 FINAL [facility] - [place], [address] [place] [address] [address] [place] [facility] [id number] 0 Phone: () - 11/21 CBC w/ auto diff Dave # (ANC) K/uL 1.6 6.6 2.3 FINAL [facility] - [place], [address] [place] [address] [facility] [address] [place] [facility] [id number] 0 Phone: () - 11/21 CBC w/ auto diff Dave % % 43.0 74.0 56.3 FINAL [facility] - [place], [address] [place] [address] d [address] [place] [facility] [id number] 0 Phone: () - 11/21 CBC w/ auto diff IG % % 0.0 0.5 0.2 FINAL Lia Tilley [facility] - [place], [address] [place] [address] [facility] [address] [place] [facility] [id number] 0 Phone: () - 11/21 CBC w/ auto diff IG # K/uL 0.0 0.03 0.01 FINAL [facility] - [place], [address] [facility] [address] [place] [id number] 0 Phone: () - 11/21 CBC w/ auto diff LY % % 14.0 41.0 29.0 FINAL [facility] - [place], [address] [facility] [address] [place] [id number] 0 Phone: () - 11/21 CBC w/ auto diff MO % % 6.0 15.0 10.4 FINAL [facility] - [place], [address] [facility] [address] [place] [id number] 0 Phone: () - 11/21 CBC w/ auto diff EO % % 0.0 7.0 3.9 FINAL [facility] - [place], [address] [facility] [address] [place] [id number] 0 Phone: () - 11/21 CBC w/ auto diff BA % % 0.0 2.0 0.2 FINAL [facility]ia [facility] - [place], [address] [facility] [address] [place] [id number] 0 Phone: () - 11/21 CBC w/ auto diff LY # K/uL 0.4 3.6 1.2 FINAL Lia Tol[facility] - [place], [address] [facility] [address] [place] [id number] 0 Phone: () - 11/21 CBC w/ auto diff MO # K/uL 0.2 1.3 0.4 FINAL [facility] - [place], [address] [facility] [address] [place] [id number] 0 Phone: () - 11/21 CBC w/ auto diff EO # K/uL 0.0 0.6 0.2 FINAL Lia [facility] - [place], [address] [place] [id number] 0 Phone: () - 11/21 CBC w/ auto diff BA # K/uL 0.0 0.2 0.0 FINAL Lia [facility] - [place], [address] [place] [id number] 0 Phone: () - 11/21 CBC w/ auto diff NRBC % #/100W BC 0.0 0.2 0.0 FINAL Lia [facility] - [place], [address] [place] [id number] 0 Phone: () - 11/21 CBC w/ auto diff RBC M/uL 3.9 5.1 3.69 Low FINAL Lia [facility] - [place], [address] [place] [id number] 0 Phone: () - 11/21 CBC w/ auto diff HCT % 35.0 48.0 35.6 FINAL Lia [facility] - [place], [address] [place] [id number] 0 Phone: () - 11/21 CBC w/ auto diff MCV fL 80.0 104.0 96.5 FINAL Lia [facility] - [place], [address] [place] [id number] 0 Phone: () - 11/21 CBC w/ auto diff MCH pg 26.0 35.0 32.0 FINAL Lia [facility] - [place], [address] [place] [id number] 0 Phone: () - 11/21 CBC w/ auto diff MCHC g/dL 30.0 35.0 33.1 FINAL Lia [facility] - [place], [address] [place] [id number] 0 Phone: () - 11/21 CBC w/ auto diff MPV fL 9.5 13.4 9.0 Low FINAL [facility] [address] [facility] [place] [id number] 0 Phone: () - 11/21 CBC w/ auto diff RDW % 11.4 16.1 12.40 FINAL [facility] [address] [facility] [address] [facility] [place] [id number] 0 Phone: () - 11/21 T4, free panel T4, free ng/dL 0.7 1.8 1.13 Test performed at [facility] on a HOMETRAX Immunoass ay Analyzer that uses an immunoenz ymometric sandwich assay for analysis. Patient testing should not be performed using multiple methodharley amador due to analytica l variation seen between test methodharley amador. FINAL [facility] [address] [facility] [address] [place] [id number] 0 Phone: () - 11/21 CMP Album in g/dL 3.2 5.2 4.1 FINAL [place] [address] [address] [facility] [address] [id number] 0 Phone: () - 11/21 CMP Alkal ine phosp hatas e U/L 46.0 116.0 52 FINAL [place] [address] [address] [facility] [address] [id number] 0 Phone: () - 11/21 CMP ALT/S GPT U/L 7.0 40.0 17 FINAL [place] [address] [address] [facility] [address] [place] [address] [id number] 0 Phone: () - 11/21 CMP AST/S GOT U/L 13.0 40.0 24 FINAL [place] [address] [address] [facility] [address] [place] [address] [id number] 0 Phone: () - 11/21 CMP BUN mg/dL 9.0 23.0 14 FINAL [facility] [address] [place] [address] [id number] 0 Phone: () - 11/21 CMP Calci um mg/dL 8.7 10.4 9.3 FINAL Lia [place] [address] [id number] 0 Phone: () - 11/21 CMP Chlor vipin mmol/L 96.0 114.0 111 [facility] [place] [address] [id number] 0 Phone: () - 11/21 CMP CO2 [...] of the 96 hour stability window. FINAL [place] [address] [id number] 0 Phone: () - 11/21 CMP Creat inine mg/dL 0.5 1.2 0.79 [place] [address] [id number] 0 Phone: () - 11/21 CMP GFR estim ate ml/min /1.73m ^2 79.1 GFR is calculate d using the CKD-EPI equation. [place] [address] [id number] 0 Phone: () - 11/21 CMP Gluco se mg/dL 73.0 126.0 86 [place] [address] [id number] 0 Phone: () - 11/21 CMP Potas sium mmol/L 3.5 5.1 4.5 [place] [address] [id number] 0 Phone: () - 11/21 CMP Sodiu m mmol/L 136.0 145.0 144 [place] [address] [id number] 0 Phone: () - 11/21 CMP Bilir ubin, total mg/dL 0.3 1.2 0.3 FINAL [facility] - [place], [address] [place] [id number] 0 Phone: () - 11/21 CMP Total prote in g/dL 5.7 8.2 6.2 FINAL L[facility] - [place], [address] [place] [id number] 0 Phone: () - 12/19 CBC w/ auto diff WBC K/uL 3.0 8.9 4.9 FINAL Oziel [facility] - [place], [address] [place] [id number] 0 Phone: () - 12/19 CBC w/ auto diff HGB g/dL 11.3 15.2 11.8 FINAL [facility] - [place], [address] [place] [id number] 0 Phone: () - 12/19 CBC w/ auto diff PLT K/uL 113.0 364.0 218 FINAL Oziel [facility] - [place], [address] [place] [id number] 0 Phone: () - 12/19 CBC w/ auto diff Dave # (ANC) K/uL 1.6 6.6 2.7 FINAL [facility] - [place], [address] [place] [id number] 0 Phone: () - 12/19 CBC w/ auto diff Dave % % 43.0 74.0 55.3 FINAL Oz[facility] - [place], [address] [place] [id number] 0 Phone: () - 12/19 CBC w/ auto diff IG % % 0.0 0.5 0.2 FINAL Oz[facility] - [place], [address] [place] [id number] 0 Phone: () - 12/19 CBC w/ auto diff IG # K/uL 0.0 0.03 0.01 FINAL Oziel [facility] - [place], [address] [place] [id number] 0 Phone: () - 12/19 CBC w/ auto diff LY % % 14.0 41.0 30.6 FINAL Oz[facility] - [place], [address] [place] [id number] 0 Phone: () - 12/19 CBC w/ auto diff MO % % 6.0 15.0 9.3 FINAL Oz[facility] - [place], [address] [place] [id number] 0 Phone: () - 12/19 CBC w/ auto diff EO % % 0.0 7.0 4.0 FINAL Oz[facility] - [place], [address] [place] [id number] 0 Phone: () - 12/19 CBC w/ auto diff BA % % 0.0 2.0 0.6 FINAL Oz[facility] - [place], [address] [place] [id number] 0 Phone: () - 12/19 CBC w/ auto diff LY # K/uL 0.4 3.6 1.5 FINAL Oz[facility] - [place], [address] [place] [id number] 0 Phone: () - 12/19 CBC w/ auto diff MO # K/uL 0.2 1.3 0.5 FINAL Oz[facility] - [place], [address] [place] [id number] 0 Phone: () - 12/19 CBC w/ auto diff EO # K/uL 0.0 0.6 0.2 FINAL Oz[facility] - [place], [address] [place] [id number] 0 Phone: () - 12/19 CBC w/ auto diff BA # K/uL 0.0 0.2 0.0 FINAL Oz[facility] - [place], [address] [place] [id number] 0 Phone: () - 12/19 CBC w/ auto diff NRBC % #/100W BC 0.0 0.2 0.0 FINAL Oziel [facility] - [place], [address] [place] [id number] 0 Phone: () - 12/19 CBC w/ auto diff RBC M/uL 3.9 5.1 3.68 Low FINAL Oziel [facility] - [place], [address] [place] [id number] 0 Phone: () - 12/19 CBC w/ auto diff HCT % 35.0 48.0 35.3 FINAL Oz[facility] [place], [address] [place] [id number] 0 Phone: () - 12/19 CBC w/ auto diff MCV fL 80.0 104.0 95.9 FINAL Oz[facility] - [place], [address] [place] [id number] 0 Phone: () - 12/19 CBC w/ auto diff MCH pg 26.0 35.0 32.1 FINAL [facility] - [place], [address] [place] [id number] 0 Phone: () - 12/19 CBC w/ auto diff MCHC g/dL 30.0 35.0 33.4 FINAL Oz[facility] - [place], [address] [place] [id number] 0 Phone: () - 12/19 CBC w/ auto diff MPV fL 9.5 13.4 9.1 Low FINAL Oziel [facility] - [place], [address] [place] [id number] 0 Phone: () - 12/19 CBC w/ auto diff RDW % 11.4 16.1 13.30 FINAL Oziel angelo [facility], [address] [facility] [id number] 0 Phone: () - 12/19 TSH w/ refle x to free T4 TSH uIU/ml 0.32 5.0 2.75 Test performed at [facility] on a HOMETRAX Immunoass ay Analyzer that uses an immunoenz ymometric sandwich assay for analysis. Patient testing should not be performed using multiple methodolo gies due to analytica l variation seen between test methodolo gies. FINAL Oziel angelo [place] [address] [address] [facility] [address] [place] [address] [id number] 0 Phone: () - 12/19 CMP Album in g/dL 3.2 5.2 4.0 FINAL Oziel angelo [place] [address] [address] [facility] [address] [place] [address] [id number] 0 Phone: () - 12/19 CMP Alkal ine phosp hatas e U/L 46.0 116.0 58 FINAL Oziel angelo [facility], [address] [facility] [address] [place] [address] [id number] 0 Phone: () - 12/19 CMP ALT/S GPT U/L 7.0 40.0 13 FINAL Oziel angelo [facility] [address] [facility] [address] [place] [address] [id number] 0 Phone: () - 12/19 CMP AST/S GOT U/L 13.0 40.0 24 FINAL Oziel angelo [facility] [address] [facility] [address] [place] [address] [id number] 0 Phone: () - 12/19 CMP BUN mg/dL 9.0 23.0 18 FINAL Oziel angelo [place] [address] [address] [facility] [address] [id number] 0 Phone: () - 12/19 CMP Calci um mg/dL 8.7 10.4 9.7 FINAL Oziel angelo [place] [address] [address] [facility] [address] [place] [address] [id number] 0 Phone: () - 12/19 CMP Chlor vipin mmol/L 96.0 114.0 111 FINAL Oziel angelo [facility] [address] [id number] 0 Phone: () - 12/19 CMP CO2 [...] 96 hour stability window. FINAL Oziel angelo [place] [address] [id number] 0 Phone: () - 12/19 CMP Creat inine mg/dL 0.5 1.2 0.82 FINAL Oziel angelo [place] [address] [id number] 0 Phone: () - 12/19 CMP GFR estim ate ml/min /1.73m ^2 75.6 GFR is calculate d using the CKD-EPI equation. FINAL Oziel angelo [place] [address] [id number] 0 Phone: () - 12/19 CMP Gluco se mg/dL 73.0 126.0 81 FINAL Oziel angelo [facility] [address] [facility] [address] [id number] 0 Phone: () - 12/19 CMP Potas sium mmol/L 3.5 5.1 4.4 FINAL Oziel angelo [place] [address] [address] [facility] [address] [id number] 0 Phone: () - 12/19 CMP Sodiu m mmol/L 136.0 145.0 144 FINAL Oziel angelo [place] [address] [address] [facility] [address] [id number] 0 Phone: () - 12/19 CMP Bilir ubin, total mg/dL 0.3 1.2 0.4 FINAL Oziel angelo [facility] [address] [facility] [address] [id number] 0 Phone: () - 12/19 CMP Total prote in g/dL 5.7 8.2 6.3 FINAL Oziel [facility] [place], [address] [place] [id number] 0 Phone: () - 01/12 [facility] 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 01/16 CBC w/ auto diff WBC K/uL 3.0 8.9 4.4 FINAL Oziel [facility] - [place], [address] [place] [id number] 0 Phone: () - 01/16 CBC w/ auto diff HGB g/dL 11.3 15.2 11.9 FINAL Oziel [facility] - [place], [address] [place] [id number] 0 Phone: () - 01/16 CBC w/ auto diff PLT K/uL 113.0 364.0 231 FINAL [facility] - [place], [address] [place] [id number] 0 Phone: () - 01/16 CBC w/ auto diff Dave # (ANC) K/uL 1.6 6.6 2.4 FINAL [facility] [place], [address] [place] [id number] 0 Phone: () - 01/16 CBC w/ auto diff Dave % % 43.0 74.0 54.7 FINAL [facility] [place], [address] [place] [id number] 0 Phone: () - 01/16 CBC w/ auto diff IG % % 0.0 0.5 0.2 FINAL [facility] [place], [address] [place] [id number] 0 Phone: () - 01/16 CBC w/ auto diff IG # K/uL 0.0 0.03 0.01 FINAL [facility] [place], [address] [place] [id number] 0 Phone: () - 01/16 CBC w/ auto diff LY % % 14.0 41.0 31.8 FINAL [facility] [place], [address] [place] [id number] 0 Phone: () - 01/16 CBC w/ auto diff MO % % 6.0 15.0 8.9 FINAL [facility] [place], [address] [place] [id number] 0 Phone: () - 01/16 CBC w/ auto diff EO % % 0.0 7.0 3.9 FINAL [facility] [place], [address] [place] [id number] 0 Phone: () - 01/16 CBC w/ auto diff BA % % 0.0 2.0 0.5 FINAL [facility] [place], [address] [place] [id number] 0 Phone: () - 01/16 CBC w/ auto diff LY # K/uL 0.4 3.6 1.4 FINAL [facility] [place], [address] [place] [id number] 0 Phone: () - 01/16 CBC w/ auto diff MO # K/uL 0.2 1.3 0.4 FINAL [facility] [place], [address] [place] [id number] 0 Phone: () - 01/16 CBC w/ auto diff EO # K/uL 0.0 0.6 0.2 FINAL [facility] [place], [address] [place] [id number] 0 Phone: () - 01/16 CBC w/ auto diff BA # K/uL 0.0 0.2 0.0 FINAL [facility] [place], [address] [place] [id number] 0 Phone: () - 01/16 CBC w/ auto diff NRBC % #/100W BC 0.0 0.2 0.0 FINAL [facility] [place], [address] [place] [id number] 0 Phone: () - 01/16 CBC w/ auto diff RBC M/uL 3.9 5.1 3.69 Low FINAL [facility] [place], [address] [place] [id number] 0 Phone: () - 01/16 CBC w/ auto diff HCT % 35.0 48.0 35.0 FINAL [facility] [place], [address] [place] [id number] 0 Phone: () - 01/16 CBC w/ auto diff MCV fL 80.0 104.0 94.9 FINAL [facility] [place], [address] [place] [id number] 0 Phone: () - 01/16 CBC w/ auto diff MCH pg 26.0 35.0 32.2 FINAL [facility] [place], [address] [place] [id number] 0 Phone: () - 01/16 CBC w/ auto diff MCHC g/dL 30.0 35.0 34.0 FINAL [facility] [place], [address] [place] [id number] 0 Phone: () - 01/16 CBC w/ auto diff MPV fL 9.5 13.4 8.8 Low FINAL [facility] [place], [address] [place] [id number] 0 Phone: () - 01/16 CBC w/ auto diff RDW % 11.4 16.1 13.90 FINAL [facility] [place], [address] [facility] [id number] 0 Phone: () - 01/16 CMP Album in g/dL 3.2 5.2 4.3 FINAL [facility], [address] [facility] [id number] 0 Phone: () - 01/16 CMP Alkal ine phosp hatas e U/L 46.0 116.0 64 FINAL [facility] angel[facility] [address] [place] [address] [id number] 0 Phone: () - 01/16 CMP ALT/S GPT U/L 7.0 40.0 12 FINAL [facility] angel[facility] [place] [address] [facility] [id number] 0 Phone: () - 01/16 CMP AST/S GOT U/L 13.0 40.0 23 FINAL [facility]iel angel[facility] [place] [address] [place] [address] [id number] 0 Phone: () - 01/16 CMP BUN mg/dL 9.0 23.0 17 FINAL [facility]iel angel[facility] [place] [address] [place] [address] [id number] 0 Phone: () - 01/16 CMP Calci um mg/dL 8.7 10.4 9.4 FINAL [facility]iel angel[facility] [address] [id number] 0 Phone: () - 01/16 CMP Chlor vipin mmol/L 96.0 114.0 108 FINAL [facility] angel[facility], [address] [place] [address] [id number] 0 Phone: () - 01/16 CMP CO2 [...] 96 hour stability window. FINAL [facility] [address] [id number] 0 Phone: () - 01/16 CMP Creat inine mg/dL 0.5 1.2 1.07 FINAL Oziel angelo [address] [id number] 0 Phone: () - 01/16 CMP GFR estim ate ml/min /1.73m ^2 54.9 Low GFR is calculate d using the CKD-EPI equation. FINAL Oziel angelo [address] [id number] 0 Phone: () - 01/16 CMP Gluco se mg/dL 73.0 126.0 84 FINAL Oziel angelo [address] [id number] 0 Phone: () - 01/16 CMP Potas sium mmol/L 3.5 5.1 4.4 FINAL Ozeil angelo [address] [id number] 0 Phone: () - 01/16 CMP Sodiu m mmol/L 136.0 145.0 141 FINAL Oziel angelo [address] [id number] 0 Phone: () - 01/16 CMP Bilir ubin, total mg/dL 0.3 1.2 0.4 FINAL Oziel angelo [address] [id number] 0 Phone: () - 01/16 CMP Total prote in g/dL 5.7 8.2 6.6 FINAL Oziel angelo [address] [id number] 0 Phone: () - 01/16 TSH w/ refle x to free T4 TSH uIU/ml 0.32 5.0 14.74 High Provider Alert. Notified Vicki by Lynne Flannery on 01/19/2022 at 2:55 PM.Test performed at [facility] on a Nimb[employer] Discoveryass ay Analyzer that uses an immunoenz ymometric sandwich assay for analysis. Patient testing should not be performed using multiple methodolo gies due to analytica l variation seen between test methodolo gies. FINAL [facility] [place], [address] [facility] [id number] 0 Phone: () - 01/16 T4, free panel T4, free ng/dL 0.7 1.8 0.75 Test performed at [facility] on a [employer] 2000 Immunoass ay Analyzer that uses an immunoenz ymometric sandwich assay for analysis. Patient testing should not be performed using multiple methodolo gies due to analytica l variation seen between test methodolo gies. FINAL [facility] [place], [address] [facility] [id number] 0 Phone: () - 02/20 TSH w/ refle x to free T4 TSH uIU/ml 0.32 5.0 Sent to [facility] Lab. Hard copy results availab le only. Test performed at [facility] on a [employer] 2000 Immunoass ay Analyzer that uses an immunoenz ymometric sandwich assay for analysis. Patient testing should not be performed using multiple methodolo gies due to analytica l variation seen between test methodolo gies. FINAL [facility] [place], [address] [facility] [id number] 0 Phone: () - 02/20 T4, free panel T4, free ng/dL 0.7 1.8 1.01 Test Performed by:[facility] [address] - [facility] [place] [id number] e : FINAL Oziel Box 02/20 TSH uIU/mL 0.35 4.94 8.74 High In Adults, TSH values between 5.00 and 10.00 uIU/ml do notnecess arily indicate the presence of Hypothyro idism.Cor relation with clinical findings such as presence of goiterand /or Thyropero xidase (TPO) Antibody may be helpful. Formore informati on please refer to MAYELA 2004; 291: 228-238.T est Performed by:[facility] [address] - [facility] [place] [id number] e : FINAL Oziel Box 05/08 CMP Album in g/dL 3.2 5.2 4.0 FINAL Oziel angel[facility], [address] [place] [address] [id number] 0 Phone: () - 05/08 CMP Alkal ine phosp hatas e U/L 46.0 116.0 56 FINAL Oziel angel[facility], [address] [facility] [id number] 0 Phone: () - 05/08 CMP ALT/S GPT U/L 7.0 40.0 17 FINAL Oziel angel[facility] [address] [id number] 0 Phone: () - 05/08 CMP AST/S GOT U/L 13.0 40.0 21 FINAL Oziel angel[facility] [address] [id number] 0 Phone: () - 05/08 CMP BUN mg/dL 9.0 23.0 22 FINAL [facility] [address] [facility] [address] [id number] 0 Phone: () - 05/08 CMP Calci um mg/dL 8.7 10.4 9.3 FINAL [facility] [address] [facility] [address] [id number] 0 Phone: () - 05/08 CMP Chlor vipin mmol/L 96.0 114.0 112 FINAL [facility] [address] [facility] [address] [id number] 0 Phone: () - 05/08 CMP CO2 [...] 96 hour stability window. FINAL Oziel angel[facility], [address] [place] [address] [id number] 0 Phone: () - 05/08 CMP Creat inine mg/dL 0.5 1.2 0.86 FINAL [facility] [place] [address] [facility] [address] [place] [address] [id number] 0 Phone: () - 05/08 CMP GFR estim ate ml/min /1.73m ^2 71.2 GFR is calculate d using the CKD-EPI equation. FINAL Oziel angelo [place] [address] [id number] 0 Phone: () - 05/08 CMP Gluco se mg/dL 73.0 126.0 77 FINAL [facility] [place] [address] [facility] [address] [place] [address] [id number] 0 Phone: () - 05/08 CMP Potas sium mmol/L 3.5 5.1 3.9 FINAL Oziel angelo [place] [address] [id number] 0 Phone: () - 05/08 CMP Sodiu m mmol/L 136.0 145.0 148 High FINAL [facility] [place] [address] [facility] [address] [place] [address] [id number] 0 Phone: () - 05/08 CMP Bilir ubin, total mg/dL 0.3 1.2 0.4 FINAL Oziel angelo [place] [address] [facility] [address] [place] [address] [id number] 0 Phone: () - 05/08 CMP Total prote in g/dL 5.7 8.2 6.1 FINAL [facility] angelo [place] [address] [facility] [address] [place] [address] [id number] 0 Phone: () - 05/08 CBC w/ auto diff WBC K/uL 3.0 8.9 7.3 FINAL [facility] [place], [address] [place] [id number] 0 Phone: () - 05/08 CBC w/ auto diff HGB g/dL 11.3 15.2 11.0 Low FINAL [facility] [place], [address] [place] [id number] 0 Phone: () - 05/08 CBC w/ auto diff PLT K/uL 113.0 364.0 210 FINAL [facility] [place], [address] [place] [id number] 0 Phone: () - 05/08 CBC w/ auto diff Dave # (ANC) K/uL 1.6 6.6 3.7 FINAL [facility] [place], [address] [place] [id number] 0 Phone: () - 05/08 CBC w/ auto diff Dave % % 43.0 74.0 51.1 FINAL [facility] [place], [address] [place] [id number] 0 Phone: () - 05/08 CBC w/ auto diff IG % % 0.0 0.5 0.3 FINAL [facility] [place], [address] [place] [id number] 0 Phone: () - 05/08 CBC w/ auto diff IG # K/uL 0.0 0.03 0.02 FINAL [facility] [place], [address] [place] [id number] 0 Phone: () - 05/08 CBC w/ auto diff LY % % 14.0 41.0 37.9 FINAL [facility] [place], [address] [place] [id number] 0 Phone: () - 05/08 CBC w/ auto diff MO % % 6.0 15.0 9.2 FINAL [facility] [place], [address] [place] [id number] 0 Phone: () - 05/08 CBC w/ auto diff EO % % 0.0 7.0 1.2 FINAL [facility] [place], [address] [place] [id number] 0 Phone: () - 05/08 CBC w/ auto diff BA % % 0.0 2.0 0.3 FINAL [facility] [place], [address] [place] [id number] 0 Phone: () - 05/08 CBC w/ auto diff LY # K/uL 0.4 3.6 2.8 FINAL [facility] [place], [address] [place] [id number] 0 Phone: () - 05/08 CBC w/ auto diff MO # K/uL 0.2 1.3 0.7 FINAL [facility] [place], [address] [place] [id number] 0 Phone: () - 05/08 CBC w/ auto diff EO # K/uL 0.0 0.6 0.1 FINAL [facility] [place], [address] [place] [id number] 0 Phone: () - 05/08 CBC w/ auto diff BA # K/uL 0.0 0.2 0.0 FINAL [facility] [place], [address] [place] [id number] 0 Phone: () - 05/08 CBC w/ auto diff NRBC % #/100W BC 0.0 0.2 0.0 FINAL [facility] [place], [address] [place] [id number] 0 Phone: () - 05/08 CBC w/ auto diff RBC M/uL 3.9 5.1 3.27 Low FINAL [facility] [place], [address] [place] [id number] 0 Phone: () - 05/08 CBC w/ auto diff HCT % 35.0 48.0 32.1 Low FINAL [facility] [place], [address] [place] [id number] 0 Phone: () - 05/08 CBC w/ auto diff MCV fL 80.0 104.0 98.2 FINAL [facility] [place], [address] [place] [id number] 0 Phone: () - 05/08 CBC w/ auto diff MCH pg 26.0 35.0 33.6 FINAL [facility] [place], [address] [facility] [address] [place] [id number] 0 Phone: () - 05/08 CBC w/ auto diff MCHC g/dL 30.0 35.0 34.3 FINAL [facility] [place], [address] [facility] [address] [place] [id number] 0 Phone: () - 05/08 CBC w/ auto diff MPV fL 9.5 13.4 9.4 Low FINAL [facility] [place], [address] [facility] [address] [place] [id number] 0 Phone: () - 05/08 CBC w/ auto diff RDW % 11.4 16.1 13.10 FINAL [facility] [place], [address] [facility] [address] [place] [id number] 0 Phone: () - 05/08 TSH w/ refle x to free T4 TSH uIU/ml 0.32 5.0 1.36 Test performed at [facility] on a [employer] Immunoass ay Analyzer that uses an immunoenz ymometric sandwich assay for analysis. Patient testing should not be performed using multiple methodharley amador due to analytica l variation seen between test methodharley amador. FINAL [facility], [address] [place] [id number] 0 Phone: () - 07/23 [facility] 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 07/23 [facility] 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 11/03 CMP Album in g/dL 3.2 5.2 4.1 FINAL Oziel angelo [facility], [address] [facility] [address] [facility] [id number] 0 Phone: () - 11/03 CMP Alkal ine phosp hatas e U/L 46.0 116.0 59 FINAL Oziel angelo [facility], [address] [facility] 100 [facility] [id number] 0 Phone: () - 11/03 CMP ALT/S GPT U/L 7.0 40.0 <7 FINAL Oziel angelo [facility], [address] [facility] 100 [facility] [id number] 0 Phone: () - 11/03 CMP AST/S GOT U/L 13.0 40.0 24 FINAL Oziel angelo [facility], [address] [facility] 100 [facility] [id number] 0 Phone: () - 11/03 CMP BUN mg/dL 9.0 23.0 16.0 FINAL Oziel angelo [facility] [address] [facility] 100 [facility] [id number] 0 Phone: () - 11/03 CMP Calci um mg/dL 8.7 10.4 9.1 FINAL Oziel angelo [facility], [address] [facility] 100 [facility] [id number] 0 Phone: () - 11/03 CMP Chlor vipin mmol/L 96.0 114.0 105 FINAL Oziel angelo [facility], [address] [id number] 0 Phone: () - 11/03 CMP CO2 [...] 96 hour stability window. FINAL Oziel angelo [facility], [address] [facility] [address] [facility] [id number] 0 Phone: () - 11/03 CMP Creat inine mg/dL 0.5 1.2 0.88 FINAL Oziel angel[facility], [address] [facility] [address] [id number] 0 Phone: () - 11/03 CMP GFR estim ate ml/min /1.73m ^2 69.0 GFR is calculate d using the CKD-EPI equation. FINAL Oziel angelo [facility] [address] [id number] 0 Phone: () - 11/03 CMP Gluco se mg/dL 73.0 126.0 105 FINAL Oziel angelo [facility] [address] [id number] 0 Phone: () - 11/03 CMP Potas sium mmol/L 3.5 5.1 4.4 FINAL Oziel angelo [facility] [address] [id number] 0 Phone: () - 11/03 CMP Sodiu m mmol/L 136.0 145.0 139 FINAL Oziel angelo [facility] [address] [id number] 0 Phone: () - 11/03 CMP Bilir ubin, total mg/dL 0.3 1.2 0.6 FINAL Oziel angelo [place] [address] [id number] 0 Phone: () - 11/03 CMP Total prote in g/dL 5.7 8.2 6.6 FINAL Oziel angelo [place] [address] [id number] 0 Phone: () - 11/03 CBC w/ auto diff WBC K/uL 3.0 8.9 4.7 FINAL [facility] [place], [address] [place] [id number] 0 Phone: () - 11/03 CBC w/ auto diff HGB g/dL 11.3 15.2 11.6 FINAL [facility] [place], [address] [facility] [place] [id number] 0 Phone: () - 11/03 CBC w/ auto diff PLT K/uL 113.0 364.0 248 FINAL [facility] [place], [address] [place] [id number] 0 Phone: () - 11/03 CBC w/ auto diff Dave # (ANC) K/uL 1.6 6.6 2.9 FINAL [facility] [place], [address] [place] [id number] 0 Phone: () - 11/03 CBC w/ auto diff Dave % % 43.0 74.0 60.9 FINAL [facility] [place], [address] [place] [id number] 0 Phone: () - 11/03 CBC w/ auto diff IG % % 0.0 0.5 0.4 FINAL [facility] [place], [address] [place] [id number] 0 Phone: () - 11/03 CBC w/ auto diff IG # K/uL 0.0 0.03 0.02 FINAL [facility] [place], [address] [place] [id number] 0 Phone: () - 11/03 CBC w/ auto diff LY % % 14.0 41.0 26.8 FINAL [facility] [place], [address] [place] [id number] 0 Phone: () - 11/03 CBC w/ auto diff MO % % 6.0 15.0 8.5 FINAL [facility] [place], [address] [place] [id number] 0 Phone: () - 11/03 CBC w/ auto diff EO % % 0.0 7.0 3.0 FINAL [facility] [place], [address] [place] [id number] 0 Phone: () - 11/03 CBC w/ auto diff BA % % 0.0 2.0 0.4 FINAL [facility] [place], [address] [place] [id number] 0 Phone: () - 11/03 CBC w/ auto diff LY # K/uL 0.4 3.6 1.3 FINAL [facility] [place], [address] [place] [id number] 0 Phone: () - 11/03 CBC w/ auto diff MO # K/uL 0.2 1.3 0.4 FINAL [facility] [place], [address] [place] [id number] 0 Phone: () - 11/03 CBC w/ auto diff EO # K/uL 0.0 0.6 0.1 FINAL [facility] [place], [address] [place] [id number] 0 Phone: () - 11/03 CBC w/ auto diff BA # K/uL 0.0 0.2 0.0 FINAL [facility] [place], [address] [place] [id number] 0 Phone: () - 11/03 CBC w/ auto diff NRBC % #/100W BC 0.0 0.2 0.0 FINAL [facility] [place], [address] [place] [id number] 0 Phone: () - 11/03 CBC w/ auto diff RBC M/uL 3.9 5.1 3.52 Low FINAL [facility] [place], [address] [place] [id number] 0 Phone: () - 11/03 CBC w/ auto diff HCT % 35.0 48.0 34.2 Low FINAL [facility] [place], [address] [place] [id number] 0 Phone: () - 11/03 CBC w/ auto diff MCV fL 80.0 104.0 97.2 FINAL [facility] - [place], [facility] [address] [facility] [address] [facility] [place] [id number] 0 Phone: () - 11/03 CBC w/ auto diff MCH pg 26.0 35.0 33.0 FINAL [facility] [place], [address] [place] [address] [facility] [address] [place] [id number] 0 Phone: () - 11/03 CBC w/ auto diff MCHC g/dL 30.0 35.0 33.9 FINAL [facility] [place], [facility] [address] [facility] [address] [place] [id number] 0 Phone: () - 11/03 CBC w/ auto diff MPV fL 9.5 13.4 8.7 Low FINAL [facility] [place], [address] [place] [address] [address] [place] [id number] 0 Phone: () - 11/03 CBC w/ auto diff RDW % 11.4 16.1 14.40 FINAL [facility] [place], [address] [place] [address] [address] [facility] [place] [id number] 0 Phone: () - 02/08 CMP Album in g/dL 3.2 5.2 4.0 FINAL [facility] angel[facility], [address] [place] [address] [id number] 0 Phone: () - 02/08 CMP Alkal ine phosp hatas e U/L 46.0 116.0 83 FINAL [facility], [address] [facility] [id number] 0 Phone: () - 02/08 CMP ALT/S GPT U/L 7.0 40.0 <7 FINAL [facility], [address] [facility] [id number] 0 Phone: () - 02/08 CMP AST/S GOT U/L 13.0 40.0 23 FINAL Oziel angelo [facility] [address] [facility] 100 [facility] [id number] 0 Phone: () - 02/08 CMP BUN mg/dL 9.0 23.0 17.0 FINAL Oziel angelo [facility] [address] [facility] 100 [facility] [id number] 0 Phone: () - 02/08 CMP Calci um mg/dL 8.7 10.4 8.8 FINAL Oziel angelo [place] [address] [facility] 100 [facility] [id number] 0 Phone: () - 02/08 CMP Chlor vipin mmol/L 96.0 114.0 109 FINAL Oziel angelo [place] [address] [id number] 0 Phone: () - 02/08 CMP CO2 [...] 96 hour stability window. FINAL Oziel angelo [place] [address] [id number] 0 Phone: () - 02/08 CMP Creat inine mg/dL 0.5 1.2 0.86 FINAL Oziel angelo [place] [address] [id number] 0 Phone: () - 02/08 CMP GFR estim ate ml/min /1.73m ^2 70.9 GFR is calculate d using the CKD-EPI equation. FINAL Oziel angelo [place] [address] [id number] 0 Phone: () - 02/08 CMP Gluco se mg/dL 73.0 126.0 84 FINAL Oziel angelo [place] [address] [id number] 0 Phone: () - 02/08 CMP Potas sium mmol/L 3.5 5.1 4.5 FINAL [facility], [address] [facility] [id number] 0 Phone: () - 02/08 CMP Sodiu m mmol/L 136.0 145.0 141 FINAL Oziel angelo [facility], [address] [facility] [id number] 0 Phone: () - 02/08 CMP Bilir ubin, total mg/dL 0.3 1.2 0.3 FINAL Oziel angelo [facility], [address] [facility] [id number] 0 Phone: () - 02/08 CMP Total prote in g/dL 5.7 8.2 6.1 FINAL Oziel angelo [facility], [address] [facility] [address] [facility] [id number] 0 Phone: () - 02/08 TSH w/ refle x to free T4 TSH uIU/ml 0.32 5.0 3.61 Test performed at [facility] on a [employer] Immuno[employer] ay Analyzer that uses an immunoenz ymometric sandwich assay for analysis. Patient testing should not be performed using multiple methodharley amador due to analytica l variation seen between test methodharley amador. FINAL Oziel angelo [facility], [address] [facility] [address] [facility] [id number] 0 Phone: () - 02/08 CBC w/ auto diff WBC K/uL 3.0 8.9 4.7 FINAL [facility] [place], [address] [facility] [address] [facility] [id number] 0 Phone: () - 02/08 CBC w/ auto diff HGB g/dL 11.3 15.2 11.0 Low FINAL Oziel angelo Oncology - [place], [address] [facility] [address] [facility] [id number] 0 Phone: () - 02/08 CBC w/ auto diff PLT K/uL 113.0 364.0 194 FINAL Oziel angelo Oncology - [place], [address] [facility] [address] [facility] [id number] 0 Phone: () - 02/08 CBC w/ auto diff Dave # (ANC) K/uL 1.6 6.6 2.7 FINAL Oziel angelo Oncology - [place], [address] [place] [id number] 0 Phone: () - 02/08 CBC w/ auto diff Dave % % 43.0 74.0 57.2 FINAL Oziel Tilleyot gi Oncology - [place], [address] [place] [id number] 0 Phone: () - 02/08 CBC w/ auto diff IG % % 0.0 0.5 0.4 FINAL Oziel Tolbert a Oncology - [place], [address] [place] [id number] 0 Phone: () - 02/08 CBC w/ auto diff IG # K/uL 0.0 0.03 0.02 FINAL Oziel angelo Oncology - [place], [address] [place] [id number] 0 Phone: () - 02/08 CBC w/ auto diff LY % % 14.0 41.0 31.6 FINAL Oziel angelo Oncology - [place], [address] [place] [id number] 0 Phone: () - 02/08 CBC w/ auto diff MO % % 6.0 15.0 8.0 FINAL Oziel angelo Oncology - [place], [address] [place] [id number] 0 Phone: () - 02/08 CBC w/ auto diff EO % % 0.0 7.0 2.2 FINAL Oziel Tilleyot a Oncology - [place], [address] [place] [id number] 0 Phone: () - 02/08 CBC w/ auto diff BA % % 0.0 2.0 0.6 FINAL Oziel Tilleyot a Oncology - [place], [address] [place] [id number] 0 Phone: () - 02/08 CBC w/ auto diff LY # K/uL 0.4 3.6 1.5 FINAL Oziel angelo Oncology - [place], [address] [place] [id number] 0 Phone: () - 02/08 CBC w/ auto diff MO # K/uL 0.2 1.3 0.4 FINAL Oziel Tolbert a Oncology - [place], [address] [place] [id number] 0 Phone: () - 02/08 CBC w/ auto diff EO # K/uL 0.0 0.6 0.1 FINAL Oziel angelo Oncology - [place], [address] [place] [id number] 0 Phone: () - 02/08 CBC w/ auto diff BA # K/uL 0.0 0.2 0.0 FINAL Oziel angelo Oncology - [place], [address] [place] [id number] 0 Phone: () - 02/08 CBC w/ auto diff NRBC % #/100W BC 0.0 0.2 0.0 FINAL Oziel angelo Oncology - [place], [address] [place] [id number] 0 Phone: () - 02/08 CBC w/ auto diff RBC M/uL 3.9 5.1 3.26 Low FINAL Oziel angelo Oncology - [place], [address] [place] [id number] 0 Phone: () - 02/08 CBC w/ auto diff HCT % 35.0 48.0 32.9 Low FINAL Oziel angelo Oncology - [place], [address] [place] [id number] 0 Phone: () - 02/08 CBC w/ auto diff MCV fL 80.0 104.0 100.9 FINAL Oziel Tilleyot a Oncology - [place], [address] [place] [id number] 0 Phone: () - 02/08 CBC w/ auto diff MCH pg 26.0 35.0 33.7 FINAL Oziel Tilleyot a Oncology - [place], [address] [place] [id number] 0 Phone: () - 02/08 CBC w/ auto diff MCHC g/dL 30.0 35.0 33.4 FINAL Oziel Tilleyot a Oncology - [place], [address] [place] [id number] 0 Phone: () - 02/08 CBC w/ auto diff MPV fL 9.5 13.4 9.0 Low FINAL Oziel Tilleyot a Oncology - [place], [address] [place] [id number] 0 Phone: () - 02/08 CBC w/ auto diff RDW % 11.4 16.1 13.70 FINAL Oziel Tilleyot a Oncology - [place], [address] [facility] [address] [place] [id number] 0 Phone: () - 06/06 [facility] [place] 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 08/09 CMP Album in g/dL 3.5 5.0 4.1 FINAL Oziel Box * [place] [facility] - [place], [address] [facility] [place] [id number] 0 08/09 CMP Alkal ine phosp hatas e U/L 36.0 125.0 66 FINAL Oziel Box * [facility] - [place], [address] [facility] [place] [id number] 0 08/09 CMP ALT/S GPT U/L 0.0 34.0 6 FINAL Oziel Box * [place] [facility] - [place], [address] [facility] [place] [id number] 0 08/09 CMP AST/S GOT U/L 14.0 36.0 28 FINAL Oziel Tilleyot a Oncology [facility], [address] [facility] [id number] 0 08/09 CMP BUN mg/dL 7.0 17.0 17.0 FINAL Oziel Tilleyot a [facility], [address] [id number] 0 08/09 CMP Calci um mg/dL 8.4 10.2 9.4 FINAL Oziel Tilleyot a [facility], [address] [id number] 0 08/09 CMP Chlor vipin mmol/L 96.0 107.0 106 [facility]AL [facility], [address] [id number] 0 08/09 CMP CO2 mmol/L 22.0 30.0 [...] the 96 hour stability window. FINAL [facility], [address] [facility] [id number] 0 08/09 CMP Creat inine mg/dL 0.66 1.25 0.70 FINAL Oziel Tilleyot a [facility], [address] [facility] [id number] 0 08/09 CMP GFR estim ate ml/min /1.73m ^2 90.4 GFR is calculate d using the CKD-EPI equation. FINAL Oziel Tilleyot [facility], [address] [facility] [id number] 0 08/09 CMP Gluco se mg/dL 74.0 100.0 87 FINAL Oziel Box * [place] [facility], [address] [id number] 0 08/09 CMP Potas sium mmol/L 3.5 5.1 4.2 FINAL Oziel Box * [place] [facility], [address] [id number] 0 08/09 CMP Sodiu m mmol/L 137.0 145.0 139 FINAL Oziel Box * [place] [facility], [address] [id number] 0 08/09 CMP Bilir ubin, total mg/dL 0.2 1.3 0.3 FINAL Oziel Box * [place] [facility], [address] [id number] 0 08/09 CMP Total prote in g/dL 6.3 8.2 6.7 FINAL Oziel Box * [place] [facility], [address] [id number] 0 08/09 CBC w/ auto diff WBC K/uL 3.0 8.9 3.5 FINAL Oziel Tilleyot a Oncology - [place], [address] [place] [facility] [id number] 0 Phone: () - 08/09 CBC w/ auto diff HGB g/dL 11.3 15.2 11.7 FINAL Oziel Tilleyot a Oncology - [place], [address] [place] [id number] 0 Phone: () - 08/09 CBC w/ auto diff PLT K/uL 113.0 364.0 196 FINAL Oziel Tilleyot a Oncology - [place], [address] [place] [id number] 0 Phone: () - 08/09 CBC w/ auto diff Dave # (ANC) K/uL 1.6 6.6 1.9 FINAL Oziel Tilleyot a Oncology - [place], [address] [place] [id number] 0 Phone: () - 08/09 CBC w/ auto diff Dave % % 43.0 74.0 52.2 FINAL Oziel Tilleyot a Oncology - [place], [address] [place] [id number] 0 Phone: () - 08/09 CBC w/ auto diff IG % % 0.0 0.5 0.3 FINAL Oziel Tilleyot a Oncology - [place], [address] [place] [id number] 0 Phone: () - 08/09 CBC w/ auto diff IG # K/uL 0.0 0.03 0.01 FINAL Oziel Tilleyot a Oncology - [place], [address] [place] [id number] 0 Phone: () - 08/09 CBC w/ auto diff LY % % 14.0 41.0 35.0 FINAL Oziel angelo Oncology - [place], [address] [place] [id number] 0 Phone: () - 08/09 CBC w/ auto diff MO % % 6.0 15.0 9.6 FINAL Oziel Tilleyot a Oncology - [place], [address] [place] [id number] 0 Phone: () - 08/09 CBC w/ auto diff EO % % 0.0 7.0 2.3 FINAL Oziel Tilleyot a Oncology - [place], [address] [place] [id number] 0 Phone: () - 08/09 CBC w/ auto diff BA % % 0.0 2.0 0.6 FINAL Oziel Tilleyot a Oncology - [place], [address] [place] [id number] 0 Phone: () - 08/09 CBC w/ auto diff LY # K/uL 0.4 3.6 1.2 FINAL Oziel Tilleyot a Oncology - [place], [address] [place] [id number] 0 Phone: () - 08/09 CBC w/ auto diff MO # K/uL 0.2 1.3 0.3 FINAL Oziel Tilleyot a Oncology - [place], [address] [place] [id number] 0 Phone: () - 08/09 CBC w/ auto diff EO # K/uL 0.0 0.6 0.1 FINAL Oziel Tolbert a Oncology - [place], [address] [place] [id number] 0 Phone: () - 08/09 CBC w/ auto diff BA # K/uL 0.0 0.2 0.0 FINAL Oziel angelo Oncology - [place], [address] [place] [id number] 0 Phone: () - 08/09 CBC w/ auto diff NRBC % #/100W BC 0.0 0.2 0.0 FINAL Oziel angelo Oncology - [place], [address] [place] [id number] 0 Phone: () - 08/09 CBC w/ auto diff RBC M/uL 3.9 5.1 3.51 Low FINAL Oziel Tolbert a Oncology - [place], [address] [place] [id number] 0 Phone: () - 08/09 CBC w/ auto diff HCT % 35.0 48.0 35.6 FINAL Oziel Tilleyot a Oncology - [place], [address] [place] [id number] 0 Phone: () - 08/09 CBC w/ auto diff MCV fL 80.0 104.0 101.4 FINAL Oziel Tilleyot a Oncology - [place], [address] [place] [id number] 0 Phone: () - 08/09 CBC w/ auto diff MCH pg 26.0 35.0 33.3 FINAL Oziel Tilleyot a Oncology - [place], [address] [place] [id number] 0 Phone: () - 08/09 CBC w/ auto diff MCHC g/dL 30.0 35.0 32.9 FINAL Oziel Tilleyot a Oncology - [place], [address] [place] [id number] 0 Phone: () - 08/09 CBC w/ auto diff MPV fL 9.5 13.4 9.3 Low FINAL Oziel Tilleyot a Oncology - [place], [address] [place] [id number] 0 Phone: () - 08/09 CBC w/ auto diff RDW % 11.4 16.1 13.20 FINAL Oziel Tilleyot a Oncology - [place], [address] [place] [id number] 0 Phone: () - 08/09 TSH w/ refle x to free T4 TSHR- v mIU/ml 0.47 4.68 0.74 FINAL Oziel Box * [place] [facility] - [place], [address] [facility] [place] [id number] 0 02/13 CBC w/ auto diff WBC K/uL 3.0 8.9 4.7 FINAL Oziel FREEMAN Oncology - [place], [address] [place] [id number] 0 02/13 CBC w/ auto diff HGB g/dL 11.3 15.2 10.4 Low FINAL Oziel FREEMAN Oncology - [place], [address] [place] [id number] 0 02/13 CBC w/ auto diff PLT K/uL 113.0 364.0 252 FINAL Oziel FREEMAN Oncology - [place], [address] [place] [id number] 0 02/13 CBC w/ auto diff Dave # (ANC) K/uL 1.6 6.6 2.4 FINAL Oziel FREEMAN Oncology - [place], [address] [place] [id number] 0 02/13 CBC w/ auto diff Dave % % 43.0 74.0 51.3 FINAL Oziel FREEMAN Oncology - [place], [address] [place] [id number] 0 02/13 CBC w/ auto diff IG % % 0.0 0.5 0.2 FINAL Oziel FREEMAN Oncology - [place], [address] [place] [id number] 0 02/13 CBC w/ auto diff IG # K/uL 0.0 0.03 0.01 FINAL Oziel FREEMAN Oncology - [place], [address] [place] [id number] 0 02/13 CBC w/ auto diff LY % % 14.0 41.0 33.5 FINAL Oziel FREEMAN Oncology - [place], [address] [place] [id number] 0 02/13 CBC w/ auto diff MO % % 6.0 15.0 8.8 FINAL Oziel FREEMAN Oncology - [place], [address] [place] [id number] 0 02/13 CBC w/ auto diff EO % % 0.0 7.0 5.6 FINAL Oziel FREEMAN Oncology - [place], [address] [place] [id number] 0 02/13 CBC w/ auto diff BA % % 0.0 2.0 0.6 FINAL Oziel FREEMAN Oncology - [place], [address] [place] [id number] 0 02/13 CBC w/ auto diff LY # K/uL 0.4 3.6 1.6 FINAL Oziel FREEMAN Oncology - [place], [address] [place] [id number] 0 02/13 CBC w/ auto diff MO # K/uL 0.2 1.3 0.4 FINAL Oziel FREEMAN Oncology - [place], [address] [place] [id number] 0 02/13 CBC w/ auto diff EO # K/uL 0.0 0.6 0.3 FINAL Oizel FREEMAN Oncology - [place], [address] [place] [id number] 0 02/13 CBC w/ auto diff BA # K/uL 0.0 0.2 0.0 FINAL Oziel FREEMAN Oncology - [place], [address] [place] [id number] 0 02/13 CBC w/ auto diff NRBC % #/100W BC 0.0 0.2 0.0 FINAL Oziel FREEMAN Oncology - [place], [address] [place] [id number] 0 02/13 CBC w/ auto diff RBC M/uL 3.9 5.1 3.24 Low FINAL Oziel FREEMAN Oncology - [place], [address] [place] [id number] 0 02/13 CBC w/ auto diff HCT % 35.0 48.0 32.3 Low FINAL Oziel FREEMAN Oncology - [place], [address] [place] [id number] 0 02/13 CBC w/ auto diff MCV fL 80.0 104.0 99.7 FINAL Oziel FREEMAN On[facility] - [place], [address] [place] [id number] 0 02/13 CBC w/ auto diff MCH pg 26.0 35.0 32.1 FINAL Oziel FREEMAN On[facility] - [place], [address] [place] [id number] 0 02/13 CBC w/ auto diff MCHC g/dL 30.0 35.0 32.2 FINAL Oziel FREEMAN On[facility] - [place], [address] [place] [id number] 0 02/13 CBC w/ auto diff MPV fL 9.5 13.4 9.1 Low FINAL Oziel FREEMAN On[facility] - [place], [address] [place] [id number] 0 02/13 CBC w/ auto diff RDW % 11.4 16.1 13.70 FINAL Oziel FREEMAN On[facility] - [place], [address] [place] [id number] 0 02/13 CMP Album in g/dL 3.5 5.0 3.5 FINAL Oziel Box * [place] [facility] [place], [address] [place] [id number] 0 02/13 CMP Alkal ine phosp hatas e U/L 36.0 125.0 75 FINAL Oziel Box * [place] [facility] [place], [address] [place] [id number] 0 02/13 CMP ALT/S GPT U/L 0.0 34.0 <4 Repeate d FINAL Oziel Box * [place] [facility] [place], [address] [facility] [id number] 0 02/13 CMP AST/S GOT U/L 14.0 36.0 17 FINAL Oziel Box * [place] [facility] [place], [address] [facility] [id number] 0 02/13 CMP BUN mg/dL 7.0 17.0 18.0 High FINAL Oziel Box * [place] [facility] - [place], [address] [facility] [id number] 0 02/13 CMP Calci um mg/dL 8.4 10.2 9.2 FINAL Oziel Box * [place] [facility] [place], [address] [facility] [id number] 0 02/13 CMP Chlor vipin mmol/L 96.0 107.0 109 High FINAL Oziel Card [place] [facility] - [place], [address] [facility] [id number] 0 02/13 CMP CO2 mmol/L 22.0 30.0 [...] hour stability window. FINAL Oziel Box * [place] [facility] [place], [address] [facility] [id number] 0 02/13 CMP Creat inine mg/dL 0.66 1.25 0.80 FINAL Oziel Box * [place] [facility] [place], [address] [facility] [id number] 0 02/13 CMP GFR estim ate ml/min /1.73m ^2 76.8 GFR is calculate d using the CKD-EPI equation. FINAL Oziel Box * [place] [facility] [place], [address] [facility] [id number] 0 02/13 CMP Gluco se mg/dL 74.0 100.0 84 FINAL Oziel Card [place] [facility] [place], [address] [facility] [id number] 0 02/13 CMP Potas sium mmol/L 3.5 5.1 4.4 FINAL [place]iel Card [place] [facility], [address] [facility] [id number] 0 02/13 CMP Sodiu m mmol/L 137.0 145.0 137 FINAL Oziel Card [place] [facility] [place], [address] [facility] [id number] 0 02/13 CMP Bilir ubin, total mg/dL 0.2 1.3 0.5 FINAL [place]iel Card [place] [facility], [address] [facility] [id number] 0 02/13 CMP Total prote in g/dL 6.3 8.2 6.2 Low FINAL Oziel Box * [place] [facility], [address] [facility] [id number] 0 04/03 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 [facility] [id number] 0 08/14 CMP AST/S GOT U/L 14.0 36.0 28 FINAL Oziel Box * [facility] , [address] [facility] [id number] 0 08/14 CMP BUN mg/dL 7.0 17.0 25.0 High FINAL Oziel Box * [facility] , [facility] [address] [id number] 0 08/14 CMP Calci um mg/dL 8.4 10.2 8.7 FINAL Oziel Box * [facility] , [address] [facility] [address] [id number] 0 08/14 CMP Chlor vipin mmol/L 96.0 107.0 109 High FINAL Oziel Box * [facility] , [address] [id number] 0 08/14 CMP CO2 mmol/L 22.0 30.0 [...] hour stability window. FINAL Oziel Box * [facility] , [address] [facility] [address] [id number] 0 08/14 CMP Creat inine mg/dL 0.66 1.25 0.90 FINAL Oziel Box * [facility] , [facility] [facility] [id number] 0 08/14 CMP GFR estim ate ml/min /1.73m ^2 66.5 GFR is calculate d using the CKD-EPI equation. FINAL Oziel Box * [facility] Oncology , [address] [facility] [id number] 0 08/14 CMP Gluco se mg/dL 74.0 100.0 95 FINAL Oziel Box * [facility] , [address] [facility] [id number] 0 08/14 CMP Potas sium mmol/L 3.5 5.1 4.5 FINAL Oziel Box * [facility] Oncology , [address] [facility] [id number] 0 08/14 CMP Sodiu m mmol/L 137.0 145.0 137 FINAL Oziel Box * [facility] Oncology , [address] [facility] [id number] 0 08/14 CMP Bilir ubin, total mg/dL 0.2 1.3 0.8 FINAL Oziel Box * [facility] On[facility] , [address] [facility] [id number] 0 08/14 CMP Total prote in g/dL 6.3 8.2 6.5 FINAL Oziel Box * [facility] , [address] [facility] [id number] 0 08/14 CBC w/ auto diff WBC K/uL 3.0 8.9 4.7 FINAL Oziel Box [facility] , [address] [place] [address] [facility] [address] [facility] [id number] 0 08/14 CBC w/ auto diff HGB g/dL 11.3 15.2 11.5 FINAL Oziel [place] - [place] [facility] , [address] [place] [id number] 0 08/14 CBC w/ auto diff PLT K/uL 113.0 364.0 211 FINAL Oziel Box [place] [facility] , [address] [place] [id number] 0 08/14 CBC w/ auto diff Dave # (ANC) K/uL 1.6 6.6 2.9 FINAL Oziel Box [place] [facility] , [address] [place] [id number] 0 08/14 CBC w/ auto diff Dave % % 43.0 74.0 61.3 FINAL Oziel Box [place] [facility] , [address] [place] [id number] 0 08/14 CBC w/ auto diff IG % % 0.0 0.5 0.2 FINAL Oziel Box [place] [facility] , [address] [place] [id number] 0 08/14 CBC w/ auto diff IG # K/uL 0.0 0.03 0.01 FINAL Oziel Box [place] [facility] , [address] [place] [id number] 0 08/14 CBC w/ auto diff LY % % 14.0 41.0 25.6 FINAL Oziel Box [place] [facility] , [address] [place] [id number] 0 08/14 CBC w/ auto diff MO % % 6.0 15.0 8.7 FINAL Oziel Box [place] [facility] , [address] [place] [id number] 0 08/14 CBC w/ auto diff EO % % 0.0 7.0 3.8 FINAL Oziel Box [place] [facility] , [address] [place] [id number] 0 08/14 CBC w/ auto diff BA % % 0.0 2.0 0.4 FINAL Oziel Box [place] [facility] , [address] [place] [id number] 0 08/14 CBC w/ auto diff LY # K/uL 0.4 3.6 1.2 FINAL Oziel Box [place] [facility] , [address] [place] [id number] 0 08/14 CBC w/ auto diff MO # K/uL 0.2 1.3 0.4 FINAL Oziel Box [place] [facility] , [address] [place] [id number] 0 08/14 CBC w/ auto diff EO # K/uL 0.0 0.6 0.2 FINAL Oziel Box [place] [facility] , [address] [place] [id number] 0 08/14 CBC w/ auto diff BA # K/uL 0.0 0.2 0.0 FINAL Oziel Box [place] [facility] , [address] [place] [id number] 0 08/14 CBC w/ auto diff NRBC % #/100W BC 0.0 0.2 0.0 FINAL Oziel Box [place] [facility] , [address] [place] [id number] 0 08/14 CBC w/ auto diff RBC M/uL 3.9 5.1 3.60 Low FINAL Oziel Box [place] [facility] , [address] [place] [id number] 0 08/14 CBC w/ auto diff HCT % 35.0 48.0 35.2 FINAL Oziel Box [place] [facility] , [address] [place] [id number] 0 08/14 CBC w/ auto diff MCV fL 80.0 104.0 97.8 FINAL Oziel Box [place] [facility] , [address] [place] [id number] 0 08/14 CBC w/ auto diff MCH pg 26.0 35.0 31.9 FINAL Oziel Box [place] [facility] , [address] [place] [id number] 0 08/14 CBC w/ auto diff MCHC g/dL 30.0 35.0 32.7 FINAL Oziel Box [place] [facility] , [address] [place] [id number] 0 08/14 CBC w/ auto diff MPV fL 9.5 13.4 9.0 Low FINAL Oziel Box [place] [facility] , [address] [address] [place] [id number] 0 08/14 CBC w/ auto diff RDW % 11.4 16.1 13.60 FINAL Oziel Box [place] [facility] , [address] [place] [id number] 0 Medications Date Name Route Dose Frequency Instructions Start Date End Date Status Vitamin [id number] Acid Oral 500 mcg-400 mcg daily active [...] concentration must be 0.3-1.2 mg/mL.Administ er using [id number] ining equipment and through an in-line 0.22 [...]
--- OUTSIDE RECORDS SUMMARY | 2024-08-27 14:33 | XMS_ITS | CCD ---
Author Name Interface, [id number] lity Address [address] [place], [place] [address] [address] [facility] Address [address] [address] Care Team Providers Care Hospice Admitting Clerk Name Role Phone Oziel Box Unavailable Unavailable Care Plan Reason for Visit Encounters Functional Status Immunizations Diagnostic Results Medications Problems Procedures Social History Vital Signs
--- OUTSIDE RECORDS SUMMARY | 2024-08-27 14:34 | XMS_ITS ---
Author Name Interface, [id number] lity Address [address] [address] [facility] Oncology Address [address] [address] Care Team Providers Care Electrical Engineering Intern Name Role Phone Lia Delgado Unavailable Unavailable [...] 20 MIN 05/13/2022 APPOINTMENT CHART CHECK 5 OK N 05/08/2022 APPOINTMENT OV 20 MIN 05/08/2022 [...] 15 MIN 02/20/2022 APPOINTMENT CHART CHECK 5 OK N 01/16/2022 APPOINTMENT PORT DRAW 15 MIN [...] 30 MIN 10/02/2021 APPOINTMENT CHART CHECK 5 OK N 10/01/2021 APPOINTMENT OUTSIDE TEST 5 M [...] uIU/ml 0.32 5.0 1.33 Test performed at [facility] on a [employer] Immunoass ay Analyzer that uses an immunoenz ymometric sandwich assay for analysis. Patient testing should not be performed using multiple methodolo ginaun due to analytica l variation seen between test methodharley amador. FINAL [facility] - [place], [address] [facility] [id number] [phone] Phone: () - 09/26 CBC w/ auto diff WBC K/uL 3.0 8.9 4.1 FINAL [facility] - [facility], [address] [facility] [phone] 0 Phone: () - 09/26 CBC w/ auto diff HGB g/dL 11.3 15.2 11.3 FINAL [facility] - [place], [address] [place] [id number] 0 Phone: () - 09/26 CBC w/ auto diff PLT K/uL 113.0 364.0 210 FINAL [facility] - [place], [address] [place] [id number] 0 Phone: () - 09/26 CBC w/ auto diff Dave # (ANC) K/uL 1.6 6.6 2.4 FINAL [facility] - [place], [address] [place] [id number] 0 Phone: () - 09/26 CBC w/ auto diff Dave % % 43.0 74.0 58.2 FINAL [facility] - [place], [address] [place] [id number] 0 Phone: () - 09/26 CBC w/ auto diff IG % % 0.0 0.5 0.2 FINAL [facility] - [place], [address] [place] [id number] 0 Phone: () - 09/26 CBC w/ auto diff IG # K/uL 0.0 0.03 0.01 FINAL [facility] - [place], [address] [place] [id number] 0 Phone: () - 09/26 CBC w/ auto diff LY % % 14.0 41.0 27.0 FINAL [facility] - [place], [address] [place] [id number] 0 Phone: () - 09/26 CBC w/ auto diff MO % % 6.0 15.0 10.5 FINAL [facility] - [place], [address] [place] [id number] 0 Phone: () - 09/26 CBC w/ auto diff EO % % 0.0 7.0 3.6 FINAL [facility] - [place], [address] [place] [id number] 0 Phone: () - 09/26 CBC w/ auto diff BA % % 0.0 2.0 0.5 FINAL [facility] - [place], [address] [place] [id number] 0 Phone: () - 09/26 CBC w/ auto diff LY # K/uL 0.4 3.6 1.1 FINAL [facility] - [place], [address] [place] [id number] 0 Phone: () - 09/26 CBC w/ auto diff MO # K/uL 0.2 1.3 0.4 FINAL [facility] - [place], [address] [place] [id number] 0 Phone: () - 09/26 CBC w/ auto diff EO # K/uL 0.0 0.6 0.2 FINAL [facility] - [place], [address] [place] [id number] 0 Phone: () - 09/26 CBC w/ auto diff BA # K/uL 0.0 0.2 0.0 FINAL [facility] - [place], [address] [place] [id number] 0 Phone: () - 09/26 CBC w/ auto diff NRBC % #/100W BC 0.0 0.2 0.0 FINAL [facility] - [place], [address] [place] [id number] 0 Phone: () - 09/26 CBC w/ auto diff RBC M/uL 3.9 5.1 3.38 Low FINAL [facility] - [place], [address] [place] [id number] 0 Phone: () - 09/26 CBC w/ auto diff HCT % 35.0 48.0 34.3 Low FINAL Oziel angelo [facility] - [place], [address] [place] [id number] 0 Phone: () - 09/26 CBC w/ auto diff MCV fL 80.0 104.0 101.5 FINAL Oziel angelo [facility] - [place], [facility] [address] [place] [id number] 0 Phone: () - 09/26 CBC w/ auto diff MCH pg 26.0 35.0 33.4 FINAL [facility] - [place], [facility] [address] [place] [id number] 0 Phone: () - 09/26 CBC w/ auto diff MCHC g/dL 30.0 35.0 32.9 FINAL Oziel angelo [facility] - [place], [facility] [address] [place] [id number] 0 Phone: () - 09/26 CBC w/ auto diff MPV fL 9.5 13.4 8.9 Low FINAL Oziel angelo [facility] - [place], [facility] [address] [facility] [place] [id number] 0 Phone: () - 09/26 CBC w/ auto diff RDW % 11.4 16.1 12.60 FINAL Oziel angelo [facility] - [place], [facility] [address] [place] [id number] 0 Phone: () - 09/26 CMP Album in g/dL 3.2 5.2 4.3 FINAL [facility] - [place], [address] [place] [id number] 0 Phone: () - 09/26 CMP Alkal ine phosp hatas e U/L 46.0 116.0 65 FINAL [facility] - [place], [address] [place] [id number] 0 Phone: () - 09/26 CMP ALT/S GPT U/L 7.0 40.0 8 FINAL Oziel angelo [facility], [address] [id number] 0 Phone: () - 09/26 CMP AST/S GOT U/L 13.0 40.0 17 FINAL Oziel angelo [facility] [address] [facility] [address] [id number] 0 Phone: () - 09/26 CMP BUN mg/dL 9.0 23.0 21 FINAL Oziel angelo [place] [address] [id number] 0 Phone: () - 09/26 CMP Calci um mg/dL 8.7 10.4 9.2 FINAL Oziel angelo [place] [address] [id number] 0 Phone: () - 09/26 CMP Chlor vipin mmol/L 96.0 114.0 111 FINAL Oziel angelo [place] [address] [id number] 0 Phone: () - 09/26 CMP CO2 [...] 96 hour stability window. FINAL Oziel angelo [facility], [facility] N [address] [id number] 0 Phone: () - 09/26 CMP Creat inine mg/dL 0.5 1.2 0.79 FINAL Oziel agnelo [place] [address] [id number] 0 Phone: () - 09/26 CMP GFR estim ate ml/min /1.73m ^2 79.1 GFR is calculate d using the CKD-EPI equation. FINAL Oziel angelo [place] [address] [id number] 0 Phone: () - 09/26 CMP Gluco se mg/dL 73.0 126.0 83 FINAL Oziel Box [place] [address] [address] [facility] [address] [facility] [id number] 0 Phone: () - 09/26 CMP Potas sium mmol/L 3.5 5.1 4.4 [facility] [address] [facility] 100 [facility] [id number] 0 Phone: () - 09/26 CMP Sodiu m mmol/L 136.0 145.0 143 FINAL Oziel Box [place] [address] [address] [facility] 100 [facility] [id number] 0 Phone: () - 09/26 CMP Bilir ubin, total mg/dL 0.3 1.2 0.3 FINAL Oziel Box [place] [address] [address] [facility] [address] [id number] 0 Phone: () - 09/26 CMP Total prote in g/dL 5.7 8.2 6.3 FINAL Oziel Box [place] [address] [address] [facility] [address] [id number] 0 Phone: () - 10/24 T4, free panel T4, free ng/dL 0.7 1.8 1.62 Test performed at [facility] on a [employer] Immunoass ay Analyzer that uses an immunoenz ymometric sandwich assay for analysis. Patient testing should not be performed using multiple methodolo ginaun due to analytica l variation seen between test methodharley amador. FINAL Lia Delgado [place] [address] [address] [facility] [address] [place] [phone] 0 Phone: () - 10/24 CMP Album in g/dL 3.2 5.2 4.3 FINAL Lia [place] [address] [address] [facility] [address] [id number] 0 Phone: () - 10/24 CMP Alkal ine phosp hatas e U/L 46.0 116.0 59 FINAL Lia [facility] [address] [facility] [address] [facility] [id number] 0 Phone: () - 10/24 CMP ALT/S GPT U/L 7.0 40.0 12 FINAL [facility], [address] [facility] 100 [facility] [id number] 0 Phone: () - 10/24 CMP AST/S GOT U/L 13.0 40.0 22 FINAL [facility] [address] [facility] [address] [id number] 0 Phone: () - 10/24 CMP BUN mg/dL 9.0 23.0 16 [place] [address] [address] [facility] [address] [id number] 0 Phone: () - 10/24 CMP Calci um mg/dL 8.7 10.4 9.7 [place] [address] [id number] 0 Phone: () - 10/24 CMP Chlor vipin mmol/L 96.0 114.0 110 FINAL [place] [address] [id number] 0 Phone: () - 10/24 CMP CO2 [...] of the 96 hour stability window. FINAL [facility], [facility] N [address] [id number] 0 Phone: () - 10/24 CMP Creat inine mg/dL 0.5 1.2 0.83 [place] [address] [id number] 0 Phone: () - 10/24 CMP GFR estim ate ml/min /1.73m ^2 74.5 GFR is calculate d using the CKD-EPI equation. FINAL [place] [address] [address] [facility] [address] [id number] 0 Phone: () - 10/24 CMP Gluco se mg/dL 73.0 126.0 87 FINAL [facility], [address] [facility] [id number] 0 Phone: () - 10/24 CMP Potas sium mmol/L 3.5 5.1 4.4 FINAL [facility] [address] [facility] [id number] 0 Phone: () - 10/24 CMP Sodiu m mmol/L 136.0 145.0 145 FINAL [facility], [address] [facility] [id number] 0 Phone: () - 10/24 CMP Bilir ubin, total mg/dL 0.3 1.2 0.4 FINAL [facility], [address] [facility] [id number] 0 Phone: () - 10/24 CMP Total prote in g/dL 5.7 8.2 6.4 FINAL [facility], [address] [facility] [id number] 0 Phone: () - 10/24 TSH w/ refle x to free T4 TSH uIU/ml 0.32 5.0 0.05 Low Test performed at [facility] on a [employer] Immun[employer] ay Analyzer that uses an immunoenz ymometric sandwich assay for analysis. Patient testing should not be performed using multiple kathi amador due to analytica l variation seen between test kathi amador. FINAL [facility], [address] [facility] [id number] 0 Phone: () - 10/24 CBC w/ auto diff WBC K/uL 3.0 8.9 5.5 FINAL [facility] [place], [address] [facility] [place] [id number] 0 Phone: () - 10/24 CBC w/ auto diff HGB g/dL 11.3 15.2 12.0 FINAL [facility] [place], [address] [place] [id number] 0 Phone: () - 10/24 CBC w/ auto diff PLT K/uL 113.0 364.0 211 FINAL Lia [facility] - [place], [address] [place] [id number] 0 Phone: () - 10/24 CBC w/ auto diff Dave # (ANC) K/uL 1.6 6.6 3.4 FINAL [facility] - [place], [address] [place] [id number] 0 Phone: () - 10/24 CBC w/ auto diff Dave % % 43.0 74.0 62.4 FINAL [facility] - [place], [address] [place] [id number] 0 Phone: () - 10/24 CBC w/ auto diff IG % % 0.0 0.5 1.1 High FINAL [facility] - [place], [address] [place] [id number] 0 Phone: () - 10/24 CBC w/ auto diff IG # K/uL 0.0 0.03 0.06 High FINAL [facility] - [place], [address] [place] [id number] 0 Phone: () - 10/24 CBC w/ auto diff LY % % 14.0 41.0 22.2 FINAL [facility] - [place], [address] [place] [id number] 0 Phone: () - 10/24 CBC w/ auto diff MO % % 6.0 15.0 10.1 FINAL [facility] - [place], [address] [place] [id number] 0 Phone: () - 10/24 CBC w/ auto diff EO % % 0.0 7.0 3.8 FINAL [facility] - [place], [address] [place] [id number] 0 Phone: () - 10/24 CBC w/ auto diff BA % % 0.0 2.0 0.4 FINAL [facility] - [place], [address] [place] [id number] 0 Phone: () - 10/24 CBC w/ auto diff LY # K/uL 0.4 3.6 1.2 FINAL Lia Tolbert [facility] - [place], [address] [place] [id number] 0 Phone: () - 10/24 CBC w/ auto diff MO # K/uL 0.2 1.3 0.6 FINAL Lia Tolbert [facility] - [place], [address] [place] [id number] 0 Phone: () - 10/24 CBC w/ auto diff EO # K/uL 0.0 0.6 0.2 FINAL Lia [facility] - [place], [address] [place] [id number] 0 Phone: () - 10/24 CBC w/ auto diff BA # K/uL 0.0 0.2 0.0 FINAL [facility] - [place], [address] [place] [id number] 0 Phone: () - 10/24 CBC w/ auto diff NRBC % #/100W BC 0.0 0.2 0.0 FINAL [facility] - [place], [address] [place] [id number] 0 Phone: () - 10/24 CBC w/ auto diff RBC M/uL 3.9 5.1 3.62 Low FINAL [facility] - [place], [address] [place] [id number] 0 Phone: () - 10/24 CBC w/ auto diff HCT % 35.0 48.0 35.7 FINAL [facility] - [place], [address] [place] [id number] 0 Phone: () - 10/24 CBC w/ auto diff MCV fL 80.0 104.0 98.6 FINAL [facility] - [place], [address] [place] [id number] 0 Phone: () - 10/24 CBC w/ auto diff MCH pg 26.0 35.0 33.1 FINAL [facility] - [place], [address] [place] [id number] 0 Phone: () - 10/24 CBC w/ auto diff MCHC g/dL 30.0 35.0 33.6 FINAL [facility] - [place], [address] [place] [id number] 0 Phone: () - 10/24 CBC w/ auto diff MPV fL 9.5 13.4 9.1 Low FINAL Lia Tolbert a [facility] - [place], [address] [place] [id number] 0 Phone: () - 10/24 CBC w/ auto diff RDW % 11.4 16.1 12.20 FINAL Lia Tolbert [facility] - [place], [address] [place] [id number] 0 Phone: () - 11/21 CMP Album in g/dL 3.2 5.2 4.1 FINAL Lia Tilley a Oncology [facility], [address] [place] [id number] 0 Phone: () - 11/21 CMP Alkal ine phosp hatas e U/L 46.0 116.0 52 FINAL Lia Tilley a [facility] - [place], [address] [place] [id number] 0 Phone: () - 11/21 CMP ALT/S GPT U/L 7.0 40.0 17 FINAL [facility], [address] [facility] [address] [id number] 0 Phone: () - 11/21 CMP AST/S GOT U/L 13.0 40.0 24 FINAL [facility] [address] [facility] [address] [id number] 0 Phone: () - 11/21 CMP BUN mg/dL 9.0 23.0 14 FINAL [place] [address] [address] [facility] [address] [id number] 0 Phone: () - 11/21 CMP Calci um mg/dL 8.7 10.4 9.3 FINAL [place] [address] [id number] 0 Phone: () - 11/21 CMP Chlor vipin mmol/L 96.0 114.0 111 FINAL [place] [address] [id number] 0 Phone: () - 11/21 CMP CO2 [...] of the 96 hour stability window. FINAL [facility], [facility] N [address] [id number] 0 Phone: () - 11/21 CMP Creat inine mg/dL 0.5 1.2 0.79 FINAL [place] [address] [id number] 0 Phone: () - 11/21 CMP GFR estim ate ml/min /1.73m ^2 79.1 GFR is calculate d using the CKD-EPI equation. FINAL [place] [address] [address] [facility] [address] [id number] 0 Phone: () - 11/21 CMP Gluco se mg/dL 73.0 126.0 86 FINAL [facility] [address] [place] [address] [id number] 0 Phone: () - 11/21 CMP Potas sium mmol/L 3.5 5.1 4.5 FINAL [facility] [address] [id number] 0 Phone: () - 11/21 CMP Sodiu m mmol/L 136.0 145.0 144 FINAL [facility] [address] [place] [address] [id number] 0 Phone: () - 11/21 CMP Bilir ubin, total mg/dL 0.3 1.2 0.3 [facility] [address] [facility] [address] [id number] 0 Phone: () - 11/21 CMP Total prote in g/dL 5.7 8.2 6.2 FINAL [facility] [address] [facility] [address] [id number] 0 Phone: () - 11/21 T4, free panel T4, free ng/dL 0.7 1.8 1.13 Test performed at [facility] on a [employer] Analyzer that uses an [employer]enz ymometric sandwich assay for analysis. Patient testing should not be performed using multiple methodolo gies due to analytica l variation seen between test methodolo gies. FINAL [facility] [address] [facility] [address] [id number] 0 Phone: () - 11/21 TSH w/ refle x to free T4 TSH uIU/ml 0.32 5.0 0.16 Low Test performed at [facility] on a [employer] Analyzer that uses an [employer]enz ymometric sandwich assay for analysis. Patient testing should not be performed using multiple methodolo gies due to analytica l variation seen between test methodolo gies. FINAL [facility], [address] [facility] [address] [place] [address] [id number] 0 Phone: () - 11/21 CBC w/ auto diff WBC K/uL 3.0 8.9 4.1 FINAL Lia [facility] - [place], [address] [place] [id number] 0 Phone: () - 11/21 CBC w/ auto diff HGB g/dL 11.3 15.2 11.8 FINAL Lia [facility]bert [facility] - [place], [address] [place] [id number] 0 Phone: () - 11/21 CBC w/ auto diff PLT K/uL 113.0 364.0 223 FINAL Lia [facility] - [place], [address] [place] [id number] 0 Phone: () - 11/21 CBC w/ auto diff Dave # (ANC) K/uL 1.6 6.6 2.3 FINAL Lia angelo [facility] - [place], [address] [place] [id number] 0 Phone: () - 11/21 CBC w/ auto diff Dave % % 43.0 74.0 56.3 FINAL Lia angelo [facility] - [place], [address] [place] [id number] 0 Phone: () - 11/21 CBC w/ auto diff IG % % 0.0 0.5 0.2 FINAL L[facility] - [place], [address] [place] [id number] 0 Phone: () - 11/21 CBC w/ auto diff IG # K/uL 0.0 0.03 0.01 FINAL Lia [facility] - [place], [address] [place] [id number] 0 Phone: () - 11/21 CBC w/ auto diff LY % % 14.0 41.0 29.0 FINAL [facility] - [place], [address] [place] [id number] 0 Phone: () - 11/21 CBC w/ auto diff MO % % 6.0 15.0 10.4 FINAL Lia [facility]bert [facility] - [place], [address] [facility] [place] [id number] 0 Phone: () - 11/21 CBC w/ auto diff EO % % 0.0 7.0 3.9 FINAL Lia [facility] - [place], [address] [facility] [address] [place] [id number] 0 Phone: () - 11/21 CBC w/ auto diff BA % % 0.0 2.0 0.2 FINAL Lia Tolbert [facility] - [place], [address] [facility] [address] [place] [id number] 0 Phone: () - 11/21 CBC w/ auto diff LY # K/uL 0.4 3.6 1.2 FINAL Lia angelo [facility] - [place], [address] [facility] [address] [facility] [address] [place] [id number] 0 Phone: () - 11/21 CBC w/ auto diff MO # K/uL 0.2 1.3 0.4 FINAL Lia angelo [facility] - [place], [address] [facility] [address] [place] [id number] 0 Phone: () - 11/21 CBC w/ auto diff EO # K/uL 0.0 0.6 0.2 FINAL Lia [facility]bert [facility] - [place], [address] [facility] [address] [place] [id number] 0 Phone: () - 11/21 CBC w/ auto diff BA # K/uL 0.0 0.2 0.0 FINAL Lia angelo [facility] - [place], [address] [facility] [address] [place] [id number] 0 Phone: () - 11/21 CBC w/ auto diff NRBC % #/100W BC 0.0 0.2 0.0 FINAL Lia [facility] - [place], [address] [place] [id number] 0 Phone: () - 11/21 CBC w/ auto diff RBC M/uL 3.9 5.1 3.69 Low FINAL Lia angelo [facility] - [place], [address] [place] [id number] 0 Phone: () - 11/21 CBC w/ auto diff HCT % 35.0 48.0 35.6 FINAL Lia angelo [facility] - [place], [address] [place] [id number] 0 Phone: () - 11/21 CBC w/ auto diff MCV fL 80.0 104.0 96.5 FINAL Lia angelo [facility] - [place], [address] [place] [id number] 0 Phone: () - 11/21 CBC w/ auto diff MCH pg 26.0 35.0 32.0 FINAL Lia angelo [facility] - [place], [address] [place] [id number] 0 Phone: () - 11/21 CBC w/ auto diff MCHC g/dL 30.0 35.0 33.1 FINAL Lia angelo [facility] - [place], [address] [place] [id number] 0 Phone: () - 11/21 CBC w/ auto diff MPV fL 9.5 13.4 9.0 Low FINAL Lia angelo [facility] - [place], [address] [place] [id number] 0 Phone: () - 11/21 CBC w/ auto diff RDW % 11.4 16.1 12.40 FINAL Lia angelo [facility] - [place], [address] [place] [id number] 0 Phone: () - 12/19 CBC w/ auto diff WBC K/uL 3.0 8.9 4.9 FINAL Oziel [facility] - [place], [address] [place] [id number] 0 Phone: () - 12/19 CBC w/ auto diff HGB g/dL 11.3 15.2 11.8 FINAL Oziel Tolbert [facility] - [place], [address] [place] [id number] 0 Phone: () - 12/19 CBC w/ auto diff PLT K/uL 113.0 364.0 218 FINAL Oziel [facility] - [place], [address] [place] [id number] 0 Phone: () - 12/19 CBC w/ auto diff Dave # (ANC) K/uL 1.6 6.6 2.7 FINAL Oziel angelo [facility] - [place], [address] [place] [id number] 0 Phone: () - 12/19 CBC w/ auto diff Dave % % 43.0 74.0 55.3 FINAL Oziel Tolbert [facility] - [place], [address] [place] [id number] 0 Phone: () - 12/19 CBC w/ auto diff IG % % 0.0 0.5 0.2 FINAL Oziel Tolbert [facility] - [place], [address] [place] [id number] 0 Phone: () - 12/19 CBC w/ auto diff IG # K/uL 0.0 0.03 0.01 FINAL Oziel Tolbert [facility] - [place], [address] [place] [id number] 0 Phone: () - 12/19 CBC w/ auto diff LY % % 14.0 41.0 30.6 FINAL Oziel [facility] - [place], [address] [place] [id number] 0 Phone: () - 12/19 CBC w/ auto diff MO % % 6.0 15.0 9.3 FINAL Oziel [facility] - [place], [address] [place] [id number] 0 Phone: () - 12/19 CBC w/ auto diff EO % % 0.0 7.0 4.0 FINAL [facility] - [place], [address] [place] [id number] 0 Phone: () - 12/19 CBC w/ auto diff BA % % 0.0 2.0 0.6 FINAL [facility] - [place], [address] [place] [id number] 0 Phone: () - 12/19 CBC w/ auto diff LY # K/uL 0.4 3.6 1.5 FINAL [facility] - [place], [address] [place] [id number] 0 Phone: () - 12/19 CBC w/ auto diff MO # K/uL 0.2 1.3 0.5 FINAL Oziel angelo [facility] - [place], [address] [place] [id number] 0 Phone: () - 12/19 CBC w/ auto diff EO # K/uL 0.0 0.6 0.2 FINAL Oziel angelo [facility] - [place], [address] [place] [id number] 0 Phone: () - 12/19 CBC w/ auto diff BA # K/uL 0.0 0.2 0.0 FINAL Oziel angelo [facility] - [place], [address] [place] [id number] 0 Phone: () - 12/19 CBC w/ auto diff NRBC % #/100W BC 0.0 0.2 0.0 FINAL Oziel [facility] - [place], [address] [place] [id number] 0 Phone: () - 12/19 CBC w/ auto diff RBC M/uL 3.9 5.1 3.68 Low FINAL [facility] - [place], [address] [place] [id number] 0 Phone: () - 12/19 CBC w/ auto diff HCT % 35.0 48.0 35.3 FINAL [facility] - [place], [address] [place] [id number] 0 Phone: () - 12/19 CBC w/ auto diff MCV fL 80.0 104.0 95.9 FINAL Oziel [facility] - [place], [address] [place] [id number] 0 Phone: () - 12/19 CBC w/ auto diff MCH pg 26.0 35.0 32.1 FINAL [facility] - [place], [address] [place] [id number] 0 Phone: () - 12/19 CBC w/ auto diff MCHC g/dL 30.0 35.0 33.4 FINAL [facility] - [place], [address] [place] [id number] 0 Phone: () - 12/19 CBC w/ auto diff MPV fL 9.5 13.4 9.1 Low FINAL [facility] - [place], [address] [place] [phone] 0 Phone: () - 12/19 CBC w/ auto diff RDW % 11.4 16.1 13.30 FINAL [facility] - [place], [address] [place] [id number] 0 Phone: () - 12/19 CMP Album in g/dL 3.2 5.2 4.0 FINAL [facility] [place], [address] [place] [id number] 0 Phone: () - 12/19 CMP Alkal ine phosp hatas e U/L 46.0 116.0 58 FINAL Oziel angelo [facility], [address] [facility] 100 [facility] [id number] 0 Phone: () - 12/19 CMP ALT/S GPT U/L 7.0 40.0 13 FINAL Oziel angelo [facility] [address] [facility] 100 [facility] [id number] 0 Phone: () - 12/19 CMP AST/S GOT U/L 13.0 40.0 24 FINAL Oziel angelo [place] [address] [address] [facility] [address] [id number] 0 Phone: () - 12/19 CMP BUN mg/dL 9.0 23.0 18 FINAL Oziel angelo [place] [address] [id number] 0 Phone: () - 12/19 CMP Calci um mg/dL 8.7 10.4 9.7 FINAL Oziel angelo [place] [address] [id number] 0 Phone: () - 12/19 CMP Chlor vipin mmol/L 96.0 114.0 111 FINAL Oziel angelo [place] [address] [id number] 0 Phone: () - 12/19 CMP CO2 [...] 96 hour stability window. FINAL Oziel angelo [facility], [facility] [address] [facility] [address] [id number] 0 Phone: () - 12/19 CMP Creat inine mg/dL 0.5 1.2 0.82 FINAL Oziel angelo [place] [address] [address] [facility] 100 [facility] [id number] 0 Phone: () - 12/19 CMP GFR estim ate ml/min /1.73m ^2 75.6 GFR is calculate d using the CKD-EPI equation. FINAL Oziel angelo [facility], [address] [facility] 100 [facility] [id number] 0 Phone: () - 12/19 CMP Gluco se mg/dL 73.0 126.0 81 FINAL Oziel angelo [facility] [address] [facility] 100 [facility] [id number] 0 Phone: () - 12/19 CMP Potas sium mmol/L 3.5 5.1 4.4 FINAL Oziel angelo [place] [address] [address] [facility] [address] [id number] 0 Phone: () - 12/19 CMP Sodiu m mmol/L 136.0 145.0 144 FINAL Oziel angelo [place] [address] [address] [facility] 100 [facility] [id number] 0 Phone: () - 12/19 CMP Bilir ubin, total mg/dL 0.3 1.2 0.4 FINAL Oziel angelo [place] [address] [address] [facility] [address] [id number] 0 Phone: () - 12/19 CMP Total prote in g/dL 5.7 8.2 6.3 FINAL Oziel angelo [place] [address] [id number] 0 Phone: () - 12/19 TSH w/ refle x to free T4 TSH uIU/ml 0.32 5.0 2.75 Test performed at [facility] on a [employer] Immunoass ay Analyzer that uses an immunoenz ymometric sandwich assay for analysis. Patient testing should not be performed using multiple methodharley amador due to analytica l variation seen between test methodharley amador. FINAL Oziel angelo [place] [address] [address] [facility] [address] [id number] 0 Phone: () - 01/12 [facility] [place] See pediatric physical therapy assistant d 01/16 CMP Album in g/dL 3.2 5.2 4.3 FINAL Oziel angelo [place] [address] [address] [facility] [address] [id number] 0 Phone: () - 11/04 /2022 CMP Alkal ine phosp hatas e U/L 46.0 116.0 64 FINAL Oziel angelo [facility], [address] [facility] 100 [facility] [id number] 0 Phone: () - 01/16 CMP ALT/S GPT U/L 7.0 40.0 12 FINAL Oziel angelo [facility] [address] [facility] 100 [facility] [id number] 0 Phone: () - 01/16 CMP AST/S GOT U/L 13.0 40.0 23 FINAL Oziel angelo [place] [address] [address] [facility] [address] [id number] 0 Phone: () - 01/16 CMP BUN mg/dL 9.0 23.0 17 FINAL Oziel angelo [place] [address] [id number] 0 Phone: () - 01/16 CMP Calci um mg/dL 8.7 10.4 9.4 FINAL Oziel angelo [place] [address] [address] [facility] [address] [id number] 0 Phone: () - 01/16 CMP Chlor vipin mmol/L 96.0 114.0 108 FINAL Oziel angelo [place] [address] [id number] 0 Phone: () - 01/16 CMP CO2 [...] 96 hour stability window. FINAL Oziel angelo [facility], [facility] [address] [facility] [address] [id number] 0 Phone: () - 01/16 CMP Creat inine mg/dL 0.5 1.2 1.07 FINAL Oziel angelo [facility] [address] [facility] [address] [id number] 0 Phone: () - 01/16 CMP GFR estim ate ml/min /1.73m ^2 54.9 Low GFR is calculate d using the CKD-EPI equation. FINAL Oziel angelo [address] [id number] 0 Phone: () - 01/16 CMP Gluco se mg/dL 73.0 126.0 84 FINAL Oziel angelo [place] [address] [id number] 0 Phone: () - 01/16 CMP Potas sium mmol/L 3.5 5.1 4.4 FINAL Oziel angelo [place] [address] [id number] 0 Phone: () - 01/16 CMP Sodiu m mmol/L 136.0 145.0 141 FINAL Oziel angelo [place] [address] [id number] 0 Phone: () - 01/16 CMP Bilir ubin, total mg/dL 0.3 1.2 0.4 FINAL Oziel angelo [place] [address] [id number] 0 Phone: () - 01/16 CMP Total prote in g/dL 5.7 8.2 6.6 FINAL Oziel angelo [place] [address] [id number] 0 Phone: () - 01/16 TSH w/ refle x to free T4 TSH uIU/ml 0.32 5.0 14.74 High Provider Alert. Notified Vicki by Lynne Flannery on 01/19/2022 at 2:55 PM.Test performed at [facility] on a [employer] ay Analyzer that uses an immunoenz ymometric sandwich assay for analysis. Patient testing should not be performed using multiple kathi amador due to analytica l variation seen between test kathi amador. FINAL Oziel angelo [place] [address] [id number] 0 Phone: () - 01/16 T4, free panel T4, free ng/dL 0.7 1.8 0.75 Test performed at [facility] on a [employer] 2000 Immunoass ay Analyzer that uses an immunoenz ymometric sandwich assay for analysis. Patient testing should not be performed using multiple methodharley amador due to analytica l variation seen between test methodharley amador. FINAL Oziel angel[facility] - [place], [address] [place] [id number] 0 Phone: () - 01/16 CBC w/ auto diff WBC K/uL 3.0 8.9 4.4 FINAL Oziel angelo [facility] - [place], [address] [place] [id number] 0 Phone: () - 01/16 CBC w/ auto diff HGB g/dL 11.3 15.2 11.9 FINAL Oziel angel[facility] - [place], [address] [place] [id number] 0 Phone: () - 01/16 CBC w/ auto diff PLT K/uL 113.0 364.0 231 FINAL Oziel angelo [facility] - [place], [address] [place] [id number] 0 Phone: () - 01/16 CBC w/ auto diff Dave # (ANC) K/uL 1.6 6.6 2.4 FINAL Oziel angel[facility] - [place], [address] [place] [id number] 0 Phone: () - 01/16 CBC w/ auto diff Dave % % 43.0 74.0 54.7 FINAL Oz[facility] angel[facility] - [place], [address] [place] [id number] 0 Phone: () - 01/16 CBC w/ auto diff IG % % 0.0 0.5 0.2 FINAL Oz[facility] angel[facility] - [place], [address] [place] [id number] 0 Phone: () - 01/16 CBC w/ auto diff IG # K/uL 0.0 0.03 0.01 FINAL Oziel angel[facility] - [place], [address] [place] [id number] 0 Phone: () - 01/16 CBC w/ auto diff LY % % 14.0 41.0 31.8 FINAL [facility] - [place], [address] [place] [id number] 0 Phone: () - 01/16 CBC w/ auto diff MO % % 6.0 15.0 8.9 FINAL [facility] - [place], [address] [place] [id number] 0 Phone: () - 01/16 CBC w/ auto diff EO % % 0.0 7.0 3.9 FINAL [facility] - [place], [address] [place] [id number] 0 Phone: () - 01/16 CBC w/ auto diff BA % % 0.0 2.0 0.5 FINAL [facility] - [place], [address] [facility] [address] [place] [id number] 0 Phone: () - 01/16 CBC w/ auto diff LY # K/uL 0.4 3.6 1.4 FINAL Oziel angel[facility] - [place], [address] [place] [id number] 0 Phone: () - 01/16 CBC w/ auto diff MO # K/uL 0.2 1.3 0.4 FINAL [facility] - [place], [address] [place] [id number] 0 Phone: () - 01/16 CBC w/ auto diff EO # K/uL 0.0 0.6 0.2 FINAL [facility] - [place], [address] [place] [id number] 0 Phone: () - 01/16 CBC w/ auto diff BA # K/uL 0.0 0.2 0.0 FINAL [facility] - [place], [address] [place] [id number] 0 Phone: () - 01/16 CBC w/ auto diff NRBC % #/100W BC 0.0 0.2 0.0 FINAL [facility] - [place], [address] [place] [id number] 0 Phone: () - 01/16 CBC w/ auto diff RBC M/uL 3.9 5.1 3.69 Low FINAL [facility] - [place], [address] [place] [id number] 0 Phone: () - 01/16 CBC w/ auto diff HCT % 35.0 48.0 35.0 FINAL [facility] - [place], [address] [place] [id number] 0 Phone: () - 01/16 CBC w/ auto diff MCV fL 80.0 104.0 94.9 FINAL [facility] - [place], [address] [place] [id number] 0 Phone: () - 01/16 CBC w/ auto diff MCH pg 26.0 35.0 32.2 FINAL [facility] - [place], [address] [place] [id number] 0 Phone: () - 01/16 CBC w/ auto diff MCHC g/dL 30.0 35.0 34.0 FINAL [facility] - [place], [address] [place] [id number] 0 Phone: () - 01/16 CBC w/ auto diff MPV fL 9.5 13.4 8.8 Low FINAL [facility] - [place], [address] [place] [id number] 0 Phone: () - 01/16 CBC w/ auto diff RDW % 11.4 16.1 13.90 FINAL [facility] - [place], [address] [facility] [address] [place] [id number] 0 Phone: () - 02/20 TSH w/ refle x to free T4 TSH uIU/ml 0.32 5.0 Sent to Referen ce Lab. Hard copy results availab le only. Test performed at [facility] on a [employer] 2000 Immunoass ay Analyzer that uses an immunoenz ymometric sandwich assay for analysis. Patient testing should not be performed using multiple methodolo gies due to analytica l variation seen between test methodolo gies. FINAL [facility] - [place], [address] [place] [id number] 0 Phone: () - 02/20 TSH uIU/mL 0.35 4.94 8.74 High In Adults, TSH values between 5.00 and 10.00 uIU/ml do notnecess arily indicate the presence of Hypothyro idism.Cor relation with clinical findings such as presence of goiterand /or Thyropero xidase (TPO) Antibody may be helpful. Formore informati on please refer to MAYELA 2004; 291: 228-238.T est Performed by:[employer] [facility] [address] - [facility], [place] [id number] e [phone] FINAL Oziel Box 02/20 T4, free panel T4, free ng/dL 0.7 1.8 1.01 Test Performed by:[employer] [facility] [address] - [facility], [place] [address]Uhxj e [phone] FINAL Oziel Box 05/08 CBC w/ auto diff WBC K/uL 3.0 8.9 7.3 FINAL Oziel angelo [facility] - [place], [address] [facility] [address] [place] [id number] 0 Phone: () - 05/08 CBC w/ auto diff HGB g/dL 11.3 15.2 11.0 Low FINAL Oziel angel[facility] - [place], [address] [facility] [address] [place] [id number] 0 Phone: () - 05/08 CBC w/ auto diff PLT K/uL 113.0 364.0 210 FINAL [facility] - [place], [address] [place] [id number] 0 Phone: () - 05/08 CBC w/ auto diff Dave # (ANC) K/uL 1.6 6.6 3.7 FINAL [facility] - [place], [address] [place] [id number] 0 Phone: () - 05/08 CBC w/ auto diff Dave % % 43.0 74.0 51.1 FINAL [facility] - [place], [address] [place] [id number] 0 Phone: () - 05/08 CBC w/ auto diff IG % % 0.0 0.5 0.3 FINAL [facility] - [place], [address] [place] [id number] 0 Phone: () - 05/08 CBC w/ auto diff IG # K/uL 0.0 0.03 0.02 FINAL [facility] - [place], [address] [place] [id number] 0 Phone: () - 05/08 CBC w/ auto diff LY % % 14.0 41.0 37.9 FINAL Ozeil [facility] - [place], [address] [place] [id number] 0 Phone: () - 05/08 CBC w/ auto diff MO % % 6.0 15.0 9.2 FINAL [facility] - [place], [address] [place] [id number] 0 Phone: () - 05/08 CBC w/ auto diff EO % % 0.0 7.0 1.2 FINAL [facility] - [place], [address] [place] [id number] 0 Phone: () - 05/08 CBC w/ auto diff BA % % 0.0 2.0 0.3 FINAL [facility] - [place], [address] [place] [id number] 0 Phone: () - 05/08 CBC w/ auto diff LY # K/uL 0.4 3.6 2.8 FINAL [facility] - [place], [address] [place] [id number] 0 Phone: () - 05/08 CBC w/ auto diff MO # K/uL 0.2 1.3 0.7 FINAL [facility] - [place], [address] [place] [id number] 0 Phone: () - 05/08 CBC w/ auto diff EO # K/uL 0.0 0.6 0.1 FINAL [facility] - [place], [address] [place] [id number] 0 Phone: () - 05/08 CBC w/ auto diff BA # K/uL 0.0 0.2 0.0 FINAL [facility] - [place], [address] [place] [id number] 0 Phone: () - 05/08 CBC w/ auto diff NRBC % #/100W BC 0.0 0.2 0.0 FINAL [facility] - [place], [address] [place] [id number] 0 Phone: () - 05/08 CBC w/ auto diff RBC M/uL 3.9 5.1 3.27 Low FINAL [facility] - [place], [address] [place] [id number] 0 Phone: () - 05/08 CBC w/ auto diff HCT % 35.0 48.0 32.1 Low FINAL [facility] - [place], [address] [place] [id number] 0 Phone: () - 05/08 CBC w/ auto diff MCV fL 80.0 104.0 98.2 FINAL Oziel angel[facility] - [place], [address] [place] [id number] 0 Phone: () - 05/08 CBC w/ auto diff MCH pg 26.0 35.0 33.6 FINAL Oz[facility] angel[facility] - [place], [address] [place] [id number] 0 Phone: () - 05/08 CBC w/ auto diff MCHC g/dL 30.0 35.0 34.3 FINAL Oziel angel[facility] - [place], [address] [place] [id number] 0 Phone: () - 05/08 CBC w/ auto diff MPV fL 9.5 13.4 9.4 Low FINAL Oz[facility] angel[facility] - [place], [address] [place] [id number] 0 Phone: () - 05/08 CBC w/ auto diff RDW % 11.4 16.1 13.10 FINAL [facility] angel[facility] - [place], [address] [place] [id number] 0 Phone: () - 05/08 CMP Album in g/dL 3.2 5.2 4.0 FINAL Oziel angelo On[facility], [address] [place] [id number] 0 Phone: () - 05/08 CMP Alkal ine phosp hatas e U/L 46.0 116.0 56 FINAL Oziel angelo [facility], [address] [place] [id number] 0 Phone: () - 05/08 CMP ALT/S GPT U/L 7.0 40.0 17 FINAL Oziel angelo [facility], [address] [place] [id number] 0 Phone: () - 05/08 CMP AST/S GOT U/L 13.0 40.0 21 FINAL Oziel angelo [facility], [address] [facility] 100 [facility] [id number] 0 Phone: () - 05/08 CMP BUN mg/dL 9.0 23.0 22 FINAL Oziel angelo [place] [address] [address] [facility] 100 [facility] [id number] 0 Phone: () - 05/08 CMP Calci um mg/dL 8.7 10.4 9.3 FINAL Oziel angelo [place] [address] [address] [facility] 100 [facility] [id number] 0 Phone: () - 05/08 CMP Chlor vipin mmol/L 96.0 114.0 112 FINAL Oziel angelo [place] [address] [address] [facility] 100 [facility] [id number] 0 Phone: () - 05/08 CMP CO2 [...] 96 hour stability window. FINAL Oziel angelo [place] [address] [id number] 0 Phone: () - 05/08 CMP Creat inine mg/dL 0.5 1.2 0.86 FINAL Oziel angelo [place] [address] [id number] 0 Phone: () - 05/08 CMP GFR estim ate ml/min /1.73m ^2 71.2 GFR is calculate d using the CKD-EPI equation. FINAL Oziel angelo [place] [address] [id number] 0 Phone: () - 05/08 CMP Gluco se mg/dL 73.0 126.0 77 FINAL Oziel angelo [facility] [address] [facility] 100 [facility] [id number] 0 Phone: () - 05/08 CMP Potas sium mmol/L 3.5 5.1 3.9 FINAL Oziel angelo [facility], [address] [facility] [address] [facility] [facility] [id number] 0 Phone: () - 05/08 CMP Sodiu m mmol/L 136.0 145.0 148 High FINAL Oziel angelo [facility], [address] [facility] 100 [facility] [id number] 0 Phone: () - 05/08 CMP Bilir ubin, total mg/dL 0.3 1.2 0.4 FINAL Oziel angelo [facility], [address] [facility] [address] [facility] [facility] [id number] 0 Phone: () - 05/08 CMP Total prote in g/dL 5.7 8.2 6.1 FINAL Oziel angelo [facility] [address] [facility] 100 [facility] [id number] 0 Phone: () - 05/08 TSH w/ refle x to free T4 TSH uIU/ml 0.32 5.0 1.36 Test performed at [facility] on a [employer] Immunoass ay Analyzer that uses an immunoenz ymometric sandwich assay for analysis. Patient testing should not be performed using multiple methodolo ginaun due to analytica l variation seen between test methodolo marjorie. FINAL Oziel angelo [facility], [address] [facility] 100 [facility] [id number] 0 Phone: () - 07/23 [facility] [place] See pediatric physical therapy assistant d 07/23 [facility] [place] other lab See pediatric physical therapy assistant d 11/03 CBC w/ auto diff WBC K/uL 3.0 8.9 4.7 FINAL Oziel angel[facility] - [place] , [address] [facility] [address] [facility] [place] [id number] 0 Phone: () - 11/03 CBC w/ auto diff HGB g/dL 11.3 15.2 11.6 FINAL Oziel angel[facility] - [place] , [address] [facility] [address] [facility] [place] [id number] 0 Phone: () - 11/03 CBC w/ auto diff PLT K/uL 113.0 364.0 248 FINAL Oziel angelo [facility] - [place] , [address] [place] [id number] 0 Phone: () - 11/03 CBC w/ auto diff Dave # (ANC) K/uL 1.6 6.6 2.9 FINAL [facility] - [place], [address] [place] [id number] 0 Phone: () - 11/03 CBC w/ auto diff Dave % % 43.0 74.0 60.9 FINAL [facility] - [place], [address] [place] [id number] 0 Phone: () - 11/03 CBC w/ auto diff IG % % 0.0 0.5 0.4 FINAL [facility] - [place], [address] [place] [id number] 0 Phone: () - 11/03 CBC w/ auto diff IG # K/uL 0.0 0.03 0.02 FINAL [facility] - [place], [address] [place] [id number] 0 Phone: () - 11/03 CBC w/ auto diff LY % % 14.0 41.0 26.8 FINAL [facility] - [place], [address] [place] [id number] 0 Phone: () - 11/03 CBC w/ auto diff MO % % 6.0 15.0 8.5 FINAL [facility] - [place], [address] [place] [id number] 0 Phone: () - 11/03 CBC w/ auto diff EO % % 0.0 7.0 3.0 FINAL [facility] - [place], [address] [place] [id number] 0 Phone: () - 11/03 CBC w/ auto diff BA % % 0.0 2.0 0.4 FINAL [facility] - [place], [address] [place] [id number] 0 Phone: () - 11/03 CBC w/ auto diff LY # K/uL 0.4 3.6 1.3 FINAL [facility] - [place], [address] [place] [id number] 0 Phone: () - 11/03 CBC w/ auto diff MO # K/uL 0.2 1.3 0.4 FINAL [facility] - [place], [address] [place] [id number] 0 Phone: () - 11/03 CBC w/ auto diff EO # K/uL 0.0 0.6 0.1 FINAL [facility] - [place], [address] [place] [id number] 0 Phone: () - 11/03 CBC w/ auto diff BA # K/uL 0.0 0.2 0.0 FINAL [facility] - [place], [address] [place] [id number] 0 Phone: () - 11/03 CBC w/ auto diff NRBC % #/100W BC 0.0 0.2 0.0 FINAL Oziel angel[facility] - [place], [address] [place] [id number] 0 Phone: () - 11/03 CBC w/ auto diff RBC M/uL 3.9 5.1 3.52 Low FINAL [facility] - [place], [address] [place] [id number] 0 Phone: () - 11/03 CBC w/ auto diff HCT % 35.0 48.0 34.2 Low FINAL [facility] - [place], [address] [place] [id number] 0 Phone: () - 11/03 CBC w/ auto diff MCV fL 80.0 104.0 97.2 FINAL [facility] [place] [facility] [place], [address] [place] [id number] 0 Phone: () - 11/03 CBC w/ auto diff MCH pg 26.0 35.0 33.0 FINAL Oziel angel[facility] - [place], [address] [place] [id number] 0 Phone: () - 11/03 CBC w/ auto diff MCHC g/dL 30.0 35.0 33.9 FINAL Oz[facility] - [place], [address] [place] [id number] 0 Phone: () - 11/03 CBC w/ auto diff MPV fL 9.5 13.4 8.7 Low FINAL [facility] - [place], [address] [place] [id number] 0 Phone: () - 11/03 CBC w/ auto diff RDW % 11.4 16.1 14.40 FINAL Oziel angel[facility] - [place], [address] [place] [id number] 0 Phone: () - 11/03 CMP Album in g/dL 3.2 5.2 4.1 FINAL Oziel angelo On[facility], [address] [place] [id number] 0 Phone: () - 11/03 CMP Alkal ine phosp hatas e U/L 46.0 116.0 59 FINAL Oziel angelo [facility], [address] [place] [id number] 0 Phone: () - 11/03 CMP ALT/S GPT U/L 7.0 40.0 <7 FINAL Oziel angelo [facility], [address] [place] [id number] 0 Phone: () - 11/03 CMP AST/S GOT U/L 13.0 40.0 24 FINAL Oziel angelo [facility], [address] [place] [id number] 0 Phone: () - 11/03 CMP BUN mg/dL 9.0 23.0 16.0 FINAL Oziel angelo [place] [address] [address] [facility] 100 [facility] [id number] 0 Phone: () - 11/03 CMP Calci um mg/dL 8.7 10.4 9.1 FINAL Oziel angelo [facility] [address] [facility] 100 [facility] [id number] 0 Phone: () - 11/03 CMP Chlor vipin mmol/L 96.0 114.0 105 FINAL Oziel angelo [place] [address] [address] [facility] 100 [facility] [id number] 0 Phone: () - 11/03 CMP CO2 [...] 96 hour stability window. FINAL Oziel angelo [place] [address] [phone] 0 Phone: () - 11/03 CMP Creat inine mg/dL 0.5 1.2 0.88 FINAL Oziel angelo [place] [address] [id number] 0 Phone: () - 11/03 CMP GFR estim ate ml/min /1.73m ^2 69.0 GFR is calculate d using the CKD-EPI equation. FINAL Oziel angelo [place] [address] [address] [facility] 100 [facility] [id number] 0 Phone: () - 11/03 CMP Gluco se mg/dL 73.0 126.0 105 FINAL Oziel angelo [place] [address] [address] [facility] 100 [facility] [id number] 0 Phone: () - 11/03 CMP Potas sium mmol/L 3.5 5.1 4.4 FINAL Oziel angelo [place] [address] [facility] [address] [facility] [id number] 0 Phone: () - 11/03 CMP Sodiu m mmol/L 136.0 145.0 139 FINAL Oziel angelo [facility] [place], [address] [facility] [id number] 0 Phone: () - 11/03 CMP Bilir ubin, total mg/dL 0.3 1.2 0.6 FINAL Oziel angelo Oncology [facility], [address] [facility] [id number] 0 Phone: () - 11/03 CMP Total prote in g/dL 5.7 8.2 6.6 FINAL Oziel angelo Oncology [facility], [address] [facility] [id number] 0 Phone: () - 02/08 CBC w/ auto diff WBC K/uL 3.0 8.9 4.7 FINAL Oziel angelo [facility] [place], [address] [facility] [id number] 0 Phone: () - 02/08 CBC w/ auto diff HGB g/dL 11.3 15.2 11.0 Low FINAL Oziel angelo [facility] - [place], [address] [place] [id number] 0 Phone: () - 02/08 CBC w/ auto diff PLT K/uL 113.0 364.0 194 FINAL Oziel angelo [facility] - [place], [address] [place] [id number] 0 Phone: () - 02/08 CBC w/ auto diff Dave # (ANC) K/uL 1.6 6.6 2.7 FINAL Oziel angelo [facility] - [place], [address] [place] [id number] 0 Phone: () - 02/08 CBC w/ auto diff Dave % % 43.0 74.0 57.2 FINAL Oziel angelo [facility] - [place], [address] [place] [id number] 0 Phone: () - 02/08 CBC w/ auto diff IG % % 0.0 0.5 0.4 FINAL Oziel Tilleyot a [facility] - [place], [address] [place] [id number] 0 Phone: () - 02/08 CBC w/ auto diff IG # K/uL 0.0 0.03 0.02 FINAL Oziel Tilleyot a [facility] - [place], [address] [place] [id number] 0 Phone: () - 02/08 CBC w/ auto diff LY % % 14.0 41.0 31.6 FINAL Oziel Tilleyot a [facility] - [place], [address] [place] [id number] 0 Phone: () - 02/08 CBC w/ auto diff MO % % 6.0 15.0 8.0 FINAL Oziel Tilleyot a [facility] - [place], [address] [place] [id number] 0 Phone: () - 02/08 CBC w/ auto diff EO % % 0.0 7.0 2.2 FINAL Oziel Tilleyot a [facility] - [place], [address] [place] [id number] 0 Phone: () - 02/08 CBC w/ auto diff BA % % 0.0 2.0 0.6 FINAL Oziel Tilleyot a [facility] - [place], [address] [place] [id number] 0 Phone: () - 02/08 CBC w/ auto diff LY # K/uL 0.4 3.6 1.5 FINAL Oziel Tilleyot a [facility] - [place], [address] [place] [id number] 0 Phone: () - 02/08 CBC w/ auto diff MO # K/uL 0.2 1.3 0.4 FINAL Oziel Tilleyot a [facility] - [place], [address] [place] [id number] 0 Phone: () - 02/08 CBC w/ auto diff EO # K/uL 0.0 0.6 0.1 FINAL Oziel Tilleyot a [facility] - [place], [address] [place] [id number] 0 Phone: () - 02/08 CBC w/ auto diff BA # K/uL 0.0 0.2 0.0 FINAL Oziel Tilleyot a [facility] - [place], [address] [place] [id number] 0 Phone: () - 02/08 CBC w/ auto diff NRBC % #/100W BC 0.0 0.2 0.0 FINAL Oziel Tilleyot a [facility] - [place], [address] [place] [id number] 0 Phone: () - 02/08 CBC w/ auto diff RBC M/uL 3.9 5.1 3.26 Low FINAL Oziel Tilleyot gi [facility] - [place], [address] [place] [id number] 0 Phone: () - 02/08 CBC w/ auto diff HCT % 35.0 48.0 32.9 Low FINAL Oziel angelo [facility] - [place], [address] [place] [id number] 0 Phone: () - 02/08 CBC w/ auto diff MCV fL 80.0 104.0 100.9 FINAL Oziel Tilleyot gi [facility] - [place], [address] [place] [id number] 0 Phone: () - 02/08 CBC w/ auto diff MCH pg 26.0 35.0 33.7 FINAL Oziel Tilleyot gi [facility] - [place], [address] [place] [id number] 0 Phone: () - 02/08 CBC w/ auto diff MCHC g/dL 30.0 35.0 33.4 FINAL Oziel Tilleyot a [facility] - [place], [address] [place] [id number] 0 Phone: () - 02/08 CBC w/ auto diff MPV fL 9.5 13.4 9.0 Low FINAL Oziel [facility]o [facility], [address] [facility] [address] [facility] [place] [id number] 0 Phone: () - 02/08 CBC w/ auto diff RDW % 11.4 16.1 13.70 FINAL Oziel angelo Oncology [facility], [address] [facility] [address] [facility] [place] [id number] 0 Phone: () - 02/08 TSH w/ refle x to free T4 TSH uIU/ml 0.32 5.0 3.61 Test performed at [facility] on a [employer] Immuno[employer] ay Analyzer that uses an immunoenz ymometric sandwich assay for analysis. Patient testing should not be performed using multiple methodolo gies due to analytica l variation seen between test methodolo gies. FINAL Oziel angelo [facility], [address] [facility] [place] [address] [phone] 0 Phone: () - 02/08 CMP Album in g/dL 3.2 5.2 4.0 FINAL Oziel angelo [facility] [address] [facility] [address] [place] [address] [phone] 0 Phone: () - 02/08 CMP Alkal ine phosp hatas e U/L 46.0 116.0 83 FINAL Oziel angelo [place] [address] [facility] [address] [place] [address] [id number] 0 Phone: () - 02/08 CMP ALT/S GPT U/L 7.0 40.0 <7 FINAL Oziel angelo [place] [address] [facility] [id number] 0 Phone: () - 02/08 CMP AST/S GOT U/L 13.0 40.0 23 FINAL Oziel angelo [facility] [address] [place] [address] [id number] 0 Phone: () - 02/08 CMP BUN mg/dL 9.0 23.0 17.0 FINAL Oziel angelo [place] [address] [facility] [id number] 0 Phone: () - 02/08 CMP Calci um mg/dL 8.7 10.4 8.8 FINAL Oziel angelo [facility] [address] [id number] 0 Phone: () - 02/08 CMP Chlor vipin mmol/L 96.0 114.0 109 FINAL Oziel angelo [place] [address] [id number] 0 Phone: () - 02/08 CMP CO2 [...] 96 hour stability window. FINAL Oziel angelo [place] [address] [id number] 0 Phone: () - 02/08 CMP Creat inine mg/dL 0.5 1.2 0.86 FINAL Oziel angelo [place] [address] [id number] 0 Phone: () - 02/08 CMP GFR estim ate ml/min /1.73m ^2 70.9 GFR is calculate d using the CKD-EPI equation. FINAL Oziel angelo [place] [address] [id number] 0 Phone: () - 02/08 CMP Gluco se mg/dL 73.0 126.0 84 FINAL Oziel angelo [facility] [address] [facility] [address] [id number] 0 Phone: () - 02/08 CMP Potas sium mmol/L 3.5 5.1 4.5 FINAL Oziel angelo [facility] [address] [facility] [address] [id number] 0 Phone: () - 02/08 CMP Sodiu m mmol/L 136.0 145.0 141 FINAL Oziel angelo [facility] [address] [facility] [id number] 0 Phone: () - 02/08 CMP Bilir ubin, total mg/dL 0.3 1.2 0.3 FINAL Oziel Tolbert a [facility], [address] [facility] [address] [facility] [id number] 0 Phone: () - 02/08 CMP Total prote in g/dL 5.7 8.2 6.1 FINAL Oziel Tilley a [facility], [address] [facility] [address] [facility] [id number] 0 Phone: () - 06/06 Misc other lab See pediatric physical therapy assistant d 08/09 CMP Album in g/dL 3.5 5.0 4.1 FINAL Oziel Box * [facility], [address] [facility] [id number] 0 08/09 CMP Alkal ine phosp hatas e U/L 36.0 125.0 66 FINAL Oziel Box * [facility], [address] [facility] [id number] 0 08/09 CMP ALT/S GPT U/L 0.0 34.0 6 FINAL Oziel Box * [facility], [address] [facility] [id number] 0 08/09 CMP AST/S GOT U/L 14.0 36.0 28 FINAL Oziel Box * [facility], [address] [facility] [id number] 0 08/09 CMP BUN mg/dL 7.0 17.0 17.0 FINAL Oziel Box * [facility], [address] [facility] [id number] 0 08/09 CMP Calci um mg/dL 8.4 10.2 9.4 FINAL Oziel Box * [facility], [address] [facility] [id number] 0 08/09 CMP Chlor vipin mmol/L 96.0 107.0 106 FINAL [facility], [address] [facility] [id number] 0 08/09 CMP CO2 mmol/L 22.0 30.0 [...] the 96 hour stability window. FINAL Oziel [facility], [facility] [address] [id number] 0 08/09 CMP Creat inine mg/dL 0.66 1.25 0.70 FINAL Oziel Tilley gi [facility], [address] [facility] [id number] 0 08/09 CMP GFR estim ate ml/min /1.73m ^2 90.4 GFR is calculate d using the CKD-EPI equation. FINAL Oziel [facility], [address] [facility] [id number] 0 08/09 CMP Gluco se mg/dL 74.0 100.0 87 FINAL [facility], [address] [facility] [id number] 0 08/09 CMP Potas sium mmol/L 3.5 5.1 4.2 FINAL Oziel [facility], [address] [facility] [id number] 0 08/09 CMP Sodiu m mmol/L 137.0 145.0 139 FINAL Oziel Box * [place] [facility] [place], [address] [facility] [id number] 0 08/09 CMP Bilir ubin, total mg/dL 0.2 1.3 0.3 FINAL Oziel Box * [place] [facility] [place], [address] [facility] [id number] 0 08/09 CMP Total prote in g/dL 6.3 8.2 6.7 FINAL Oziel Box * [place] [facility] [place], [address] [facility] [id number] 0 08/09 CBC w/ auto diff WBC K/uL 3.0 8.9 3.5 FINAL Oziel Tilleyot a [facility] - [place], [address] [place] [id number] 0 Phone: () - 08/09 CBC w/ auto diff HGB g/dL 11.3 15.2 11.7 FINAL Oziel Tilleyot a [facility] - [place], [address] [place] [id number] 0 Phone: () - 08/09 CBC w/ auto diff PLT K/uL 113.0 364.0 196 FINAL Oziel Tilleyot a [facility] - [place], [address] [place] [id number] 0 Phone: () - 08/09 CBC w/ auto diff Dave # (ANC) K/uL 1.6 6.6 1.9 FINAL Oziel Tilleyot a [facility] - [place], [address] [place] [id number] 0 Phone: () - 08/09 CBC w/ auto diff Dave % % 43.0 74.0 52.2 FINAL Oziel Tilleyot a [facility] - [place], [address] [place] [id number] 0 Phone: () - 08/09 CBC w/ auto diff IG % % 0.0 0.5 0.3 FINAL Oziel Tilleyot a [facility] - [place], [address] [place] [id number] 0 Phone: () - 08/09 CBC w/ auto diff IG # K/uL 0.0 0.03 0.01 FINAL Oziel Tilleyot a [facility] - [place], [address] [place] [id number] 0 Phone: () - 08/09 CBC w/ auto diff LY % % 14.0 41.0 35.0 FINAL Oziel Tilleyot a [facility] - [place], [address] [place] [id number] 0 Phone: () - 08/09 CBC w/ auto diff MO % % 6.0 15.0 9.6 FINAL Oziel Tilleyot a [facility] - [place], [address] [place] [id number] 0 Phone: () - 08/09 CBC w/ auto diff EO % % 0.0 7.0 2.3 FINAL Oziel Tilleyot a [facility] - [place], [address] [place] [id number] 0 Phone: () - 08/09 CBC w/ auto diff BA % % 0.0 2.0 0.6 FINAL Oziel Tilleyot a [facility] - [place], [address] [place] [id number] 0 Phone: () - 08/09 CBC w/ auto diff LY # K/uL 0.4 3.6 1.2 FINAL Oziel Tilleyot a [facility] - [place], [address] [place] [id number] 0 Phone: () - 08/09 CBC w/ auto diff MO # K/uL 0.2 1.3 0.3 FINAL Oziel Tilleyot a [facility] - [place], [address] [place] [id number] 0 Phone: () - 08/09 CBC w/ auto diff EO # K/uL 0.0 0.6 0.1 FINAL Oziel angelo [facility] - [place], [address] [place] [id number] 0 Phone: () - 08/09 CBC w/ auto diff BA # K/uL 0.0 0.2 0.0 FINAL Oziel angelo [facility] - [place], [address] [place] [id number] 0 Phone: () - 08/09 CBC w/ auto diff NRBC % #/100W BC 0.0 0.2 0.0 FINAL Oziel angelo [facility] - [place], [address] [place] [id number] 0 Phone: () - 08/09 CBC w/ auto diff RBC M/uL 3.9 5.1 3.51 Low FINAL Oziel angelo [facility] - [place], [address] [place] [id number] 0 Phone: () - 08/09 CBC w/ auto diff HCT % 35.0 48.0 35.6 FINAL Oziel angelo [facility] - [place], [address] [place] [id number] 0 Phone: () - 08/09 CBC w/ auto diff MCV fL 80.0 104.0 101.4 FINAL Oziel angelo [facility] - [place], [address] [place] [id number] 0 Phone: () - 08/09 CBC w/ auto diff MCH pg 26.0 35.0 33.3 FINAL Oziel Tilleyot gi [facility] - [place], [address] [place] [id number] 0 Phone: () - 08/09 CBC w/ auto diff MCHC g/dL 30.0 35.0 32.9 FINAL Oziel Tilleyot a [facility] - [place], [address] [place] [id number] 0 Phone: () - 08/09 CBC w/ auto diff MPV fL 9.5 13.4 9.3 Low FINAL Oziel Box [place] [facility] [place], [address] [place] [id number] 0 Phone: () - 08/09 CBC w/ auto diff RDW % 11.4 16.1 13.20 FINAL Oziel Box [place] [facility] [place], [address] [place] [id number] 0 Phone: () - 08/09 TSH w/ refle x to free T4 TSHR- v mIU/ml 0.47 4.68 0.74 FINAL Oziel Box * [place] [facility] [place], [address] [facility] [place] [id number] 0 02/13 CBC w/ auto diff WBC K/uL 3.0 8.9 4.7 FINAL Oziel FREEMAN [facility] - [place], [address] [place] [id number] 0 02/13 CBC w/ auto diff HGB g/dL 11.3 15.2 10.4 Low FINAL Oziel FREEMAN [facility] - [place], [address] [place] [id number] 0 02/13 CBC w/ auto diff PLT K/uL 113.0 364.0 252 FINAL Oziel FREEMAN [facility] - [place], [address] [place] [id number] 0 02/13 CBC w/ auto diff Dave # (ANC) K/uL 1.6 6.6 2.4 FINAL Oziel FREEMAN [facility] - [place], [address] [place] [id number] 0 02/13 CBC w/ auto diff Dave % % 43.0 74.0 51.3 FINAL Oziel FREEMAN [facility] - [place], [address] [place] [id number] 0 02/13 CBC w/ auto diff IG % % 0.0 0.5 0.2 FINAL Oziel FREEMAN [facility] - [place], [address] [place] [id number] 0 02/13 CBC w/ auto diff IG # K/uL 0.0 0.03 0.01 FINAL Oziel FREEMAN [facility] - [place], [address] [place] [id number] 0 02/13 CBC w/ auto diff LY % % 14.0 41.0 33.5 FINAL Oziel FREEMAN [facility] - [place], [address] [place] [id number] 0 02/13 CBC w/ auto diff MO % % 6.0 15.0 8.8 FINAL Oziel FREEMAN [facility] - [place], [address] [place] [id number] 0 02/13 CBC w/ auto diff EO % % 0.0 7.0 5.6 FINAL Oziel FREEMAN [facility] - [place], [address] [place] [id number] 0 02/13 CBC w/ auto diff BA % % 0.0 2.0 0.6 FINAL Oziel FREEMAN [facility] - [place], [address] [place] [id number] 0 02/13 CBC w/ auto diff LY # K/uL 0.4 3.6 1.6 FINAL Oziel FREEMAN [facility] - [place], [address] [place] [id number] 0 02/13 CBC w/ auto diff MO # K/uL 0.2 1.3 0.4 FINAL Oziel FREEMAN [facility] - [place], [address] [place] [id number] 0 02/13 CBC w/ auto diff EO # K/uL 0.0 0.6 0.3 FINAL Oziel FREEMAN [facility] - [place], [address] [place] [id number] 0 02/13 CBC w/ auto diff BA # K/uL 0.0 0.2 0.0 FINAL Oziel FREEMAN [facility] - [place], [address] [place] [id number] 0 02/13 CBC w/ auto diff NRBC % #/100W BC 0.0 0.2 0.0 FINAL Oziel FREEMAN [facility] - [place], [address] [place] [id number] 0 02/13 CBC w/ auto diff RBC M/uL 3.9 5.1 3.24 Low FINAL Oziel FREEMAN [facility] - [place], [address] [place] [id number] 0 02/13 CBC w/ auto diff HCT % 35.0 48.0 32.3 Low FINAL Oziel FREEMAN [facility] - [place], [address] [place] [id number] 0 02/13 CBC w/ auto diff MCV fL 80.0 104.0 99.7 FINAL Oziel FREEMAN [facility] - [place], [address] [place] [id number] 0 02/13 CBC w/ auto diff MCH pg 26.0 35.0 32.1 FINAL Oziel FREEMAN [facility] - [place], [address] [place] [id number] 0 02/13 CBC w/ auto diff MCHC g/dL 30.0 35.0 32.2 FINAL Oziel FREEMAN [facility] - [place], [address] [place] [id number] 0 02/13 CBC w/ auto diff MPV fL 9.5 13.4 9.1 Low FINAL Oziel FREEMAN [facility] - [place], [address] [place] [id number] 0 02/13 CBC w/ auto diff RDW % 11.4 16.1 13.70 FINAL Oziel FREEMAN [facility] - [place], [address] [place] [id number] 0 02/13 CMP Album in g/dL 3.5 5.0 3.5 FINAL Oziel Box * [place] [facility] [place], [address] [facility] [id number] 0 02/13 CMP Alkal ine phosp hatas e U/L 36.0 125.0 75 FINAL Oziel Box * [place] [facility] [place], [address] [facility] [id number] 0 02/13 CMP ALT/S GPT U/L 0.0 34.0 <4 Repeate d FINAL Oziel Box * [place] [facility] [place], [address] [facility] [id number] 0 02/13 CMP AST/S GOT U/L 14.0 36.0 17 FINAL Oziel Box * [place] [facility] [place], [address] [facility] [id number] 0 02/13 CMP BUN mg/dL 7.0 17.0 18.0 High FINAL Oziel Card [place] [facility], [address] [facility] [id number] 0 02/13 CMP Calci um mg/dL 8.4 10.2 9.2 FINAL Oziel FREEMAN Oncology [facility], [address] [facility] [id number] 0 02/13 CMP Chlor vipin mmol/L 96.0 107.0 109 High FINAL Oziel Card [place] [facility], [address] [facility] [id number] 0 02/13 CMP CO2 mmol/L 22.0 30.0 [...] hour stability window. FINAL Oziel FREEMAN On[facility], [address] [facility] [id number] 0 02/13 CMP Creat inine mg/dL 0.66 1.25 0.80 FINAL Oziel Card [place] [facility], [address] [facility] [id number] 0 02/13 CMP GFR estim ate ml/min /1.73m ^2 76.8 GFR is calculate d using the CKD-EPI equation. FINAL Oziel Card [place] [facility], [address] [facility] [id number] 0 02/13 CMP Gluco se mg/dL 74.0 100.0 84 FINAL Oziel Card [place] [facility], [address] [facility] [id number] 0 02/13 CMP Potas sium mmol/L 3.5 5.1 4.4 FINAL Oziel Box * [place] [facility] [place], [address] [facility] [id number] 0 02/13 CMP Sodiu m mmol/L 137.0 145.0 137 FINAL Oziel Box * [place] [facility] [place], [address] [facility] [id number] 0 02/13 CMP Bilir ubin, total mg/dL 0.2 1.3 0.5 FINAL Oziel Box * [place] [facility] [place], [address] [facility] [id number] 0 02/13 CMP Total prote in g/dL 6.3 8.2 6.2 Low FINAL Oziel Box * [place] [facility] [place], [address] [facility] [id number] 0 04/03 [facility] other lab See pediatric physical therapy assistant d 08/14 CMP Album in g/dL 3.5 5.0 3.7 FINAL Oziel Box * [facility] , [address] [facility] [id number] 0 08/14 CMP Alkal ine phosp hatas e U/L 36.0 125.0 68 FINAL Oziel Box * [facility] [place] [facility] [place] [facility] , [address] [facility] [id number] 08/14 CMP ALT/S GPT U/L 0.0 34.0 10 FINAL Oziel Box * [place] [facility] [place] [facility] , [address] [facility] [id number] 0 08/14 CMP AST/S GOT U/L 14.0 36.0 28 FINAL Oziel Box * [facility] , [address] [facility] [id number] 0 08/14 CMP BUN mg/dL 7.0 17.0 25.0 High FINAL Oziel Box * [facility] , [address] [facility] [address] [id number] 0 08/14 CMP Calci um mg/dL 8.4 10.2 8.7 FINAL Oziel Box * [facility] , [address] [facility] [address] [id number] 0 08/14 CMP Chlor vipin mmol/L 96.0 107.0 109 High FINAL Oziel Box * [facility] [address] [id number] 0 08/14 CMP CO2 mmol/L 22.0 30.0 [...] the 96 hour stability window. FINAL Oziel Bxo * [facility] , [facility] [address] [id number] 0 08/14 CMP Creat inine mg/dL 0.66 1.25 0.90 FINAL Oziel Box * [facility] , [address] [facility] [address] [id number] 0 08/14 CMP GFR estim ate ml/min /1.73m ^2 66.5 GFR is calculate d using the CKD-EPI equation. FINAL Oziel Box * [facility] , [facility] [address] [id number] 0 08/14 CMP Gluco se mg/dL 74.0 100.0 95 FINAL Oziel Box * [facility] , [address] [facility] [address] [id number] 0 08/14 CMP Potas sium mmol/L 3.5 5.1 4.5 FINAL Oziel Box * [facility] , [address] [facility] [id number] 0 08/14 CMP Sodiu m mmol/L 137.0 145.0 137 FINAL Oziel Box * [facility] , [address] [facility] [id number] 0 08/14 CMP Bilir ubin, total mg/dL 0.2 1.3 0.8 FINAL Oziel Box * [facility] , [address] [facility] [id number] 0 08/14 CMP Total prote in g/dL 6.3 8.2 6.5 FINAL Oziel Box * [facility] [place] [facility] , [address] [facility] [id number] 0 08/14 CBC w/ auto diff WBC K/uL 3.0 8.9 4.7 FINAL Oziel Box [facility] [place] [facility] , [address] [facility] [id number] 0 08/14 CBC w/ auto diff HGB g/dL 11.3 15.2 11.5 FINAL Ozeil Box [place] [facility] , [address] [facility] [id number] 0 08/14 CBC w/ auto diff PLT K/uL 113.0 364.0 211 FINAL Oziel Box [place] [facility] , [address] [facility] [id number] 0 08/14 CBC w/ auto diff Dave # (ANC) K/uL 1.6 6.6 2.9 FINAL Oziel Box [place] [facility] , [address] [place] [id number] 0 08/14 CBC w/ auto diff Dave % % 43.0 74.0 61.3 FINAL Oziel Box [place] [facility] , [address] [place] [id number] 0 08/14 CBC w/ auto diff IG % % 0.0 0.5 0.2 FINAL Oziel Box [place] [facility] , [address] [place] [id number] 0 08/14 CBC w/ auto diff IG # K/uL 0.0 0.03 0.01 FINAL Oziel Box [place] [facility] , [address] [place] [id number] 0 08/14 CBC w/ auto diff LY % % 14.0 41.0 25.6 FINAL Oziel Box [place] [facility] , [address] [place] [id number] 0 08/14 CBC w/ auto diff MO % % 6.0 15.0 8.7 FINAL Oziel Box [place] [facility] , [address] [place] [id number] 0 08/14 CBC w/ auto diff EO % % 0.0 7.0 3.8 FINAL Oziel Box [place] [facility] , [address] [place] [id number] 0 08/14 CBC w/ auto diff BA % % 0.0 2.0 0.4 FINAL Oziel Box [place] [facility] , [address] [place] [id number] 0 08/14 CBC w/ auto diff LY # K/uL 0.4 3.6 1.2 FINAL Oziel Box [place] [facility] , [address] [place] [id number] 0 08/14 CBC w/ auto diff MO # K/uL 0.2 1.3 0.4 FINAL Oziel Box [place] [facility] , [address] [place] [id number] 0 08/14 CBC w/ auto diff EO # K/uL 0.0 0.6 0.2 FINAL Oziel Box [place] [facility] , [address] [place] [id number] 0 08/14 CBC w/ auto diff BA # K/uL 0.0 0.2 0.0 FINAL Oziel Box [place] [facility] , [address] [place] [id number] 0 08/14 CBC w/ auto diff NRBC % #/100W BC 0.0 0.2 0.0 FINAL Oziel Box [place] [facility] , [address] [place] [id number] 0 08/14 CBC w/ auto diff RBC M/uL 3.9 5.1 3.60 Low FINAL Oziel Box [place] [facility] , [address] [place] [id number] 0 08/14 CBC w/ auto diff HCT % 35.0 48.0 35.2 FINAL Oziel Box [place] [facility] , [address] [place] [id number] 0 08/14 CBC w/ auto diff MCV fL 80.0 104.0 97.8 FINAL Oziel Box [place] [facility] , [address] [place] [id number] 0 08/14 CBC w/ auto diff MCH pg 26.0 35.0 31.9 [facility]AL [facility] , [address] [facility] [address] [place] [id number] 0 08/14 CBC w/ auto diff MCHC g/dL 30.0 35.0 32.7 FINAL [facility] , [address] [facility] [address] [facility] [id number] 0 08/14 CBC w/ auto diff MPV fL 9.5 13.4 9.0 Low FINAL [facility] , [address] [facility] [address] [facility] [id number] 0 08/14 CBC w/ auto diff RDW % 11.4 16.1 13.60 FINAL [facility] , [address] [facility] [address] [facility] [id number] 0 Medications Date Name Route Dose Frequency Instructions Start Date End Date Status Vitamin A42-Dvnad Acid Oral 500 mcg-400 mcg daily active [...] concentration must be 0.3-1.2 mg/mL.Administ er using [id number]-segpa ining equipment and through an in-line 0.22 [...]
--- OUTSIDE RECORDS SUMMARY | 2024-08-27 14:34 | XMS_ITS ---
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 Role Phone Oziel Box Unavailable Allergies [...] Lab Address 04/03 Misc other lab See balance weigher d 08/14 CBC w/ auto diff WBC K/uL 3.0 8.9 4.7 FINAL Oziel Box [place] [facility] , [address] [place] [id number] 0 08/14 CBC w/ auto diff HGB g/dL 11.3 15.2 11.5 FINAL Oziel Box [place] [facility] , [address] [place] [id number] 0 08/14 CBC w/ auto diff PLT K/uL 113.0 364.0 211 FINAL Oziel Box [place] [facility] , [address] [place] [id number] 0 08/14 CBC w/ auto diff Dave # (ANC) K/uL 1.6 6.6 2.9 FINAL Oziel Box [place] [facility] , [address] [place] [id number] 0 08/14 CBC w/ auto diff Dave % % 43.0 74.0 61.3 FINAL Oziel Box [place] [facility] , [address] [place] [id number] 0 08/14 CBC w/ auto diff IG % % 0.0 0.5 0.2 FINAL Oziel Box [place] [facility] , [address] [place] [id number] 0 08/14 CBC w/ auto diff IG # K/uL 0.0 0.03 0.01 FINAL Oziel Box [place] [facility] , [address] [place] [id number] 0 08/14 CBC w/ auto diff LY % % 14.0 41.0 25.6 FINAL Oziel Box [place] [facility] , [address] [place] [id number] 0 08/14 CBC w/ auto diff MO % % 6.0 15.0 8.7 FINAL Oziel Box [place] [facility] , [address] [place] [id number] 0 08/14 CBC w/ auto diff EO % % 0.0 7.0 3.8 FINAL Oziel Box [place] [facility] , [address] [place] [id number] 0 08/14 CBC w/ auto diff BA % % 0.0 2.0 0.4 FINAL Oziel Box [place] [facility] , [address] [place] [id number] 0 08/14 CBC w/ auto diff LY # K/uL 0.4 3.6 1.2 FINAL Oziel Box [place] [facility] , [address] [place] [id number] 0 08/14 CBC w/ auto diff MO # K/uL 0.2 1.3 0.4 FINAL Oziel Box [place] [facility] , [address] [place] [id number] 0 08/14 CBC w/ auto diff EO # K/uL 0.0 0.6 0.2 FINAL Oziel Box [place] [facility] , [address] [place] [id number] 0 08/14 CBC w/ auto diff BA # K/uL 0.0 0.2 0.0 FINAL Oziel Box [place] [facility] , [address] [place] [id number] 0 08/14 CBC w/ auto diff NRBC % #/100W BC 0.0 0.2 0.0 FINAL Oziel Box [place] [facility] , [address] [place] [id number] 0 08/14 CBC w/ auto diff RBC M/uL 3.9 5.1 3.60 Low FINAL Oziel Box [place] [facility] , [address] [place] [id number] 0 08/14 CBC w/ auto diff HCT % 35.0 48.0 35.2 FINAL Oziel Box [place] [facility] , [address] [place] [id number] 0 08/14 CBC w/ auto diff MCV fL 80.0 104.0 97.8 FINAL Oziel Box [place] [facility] , [address] [place] [id number] 0 08/14 CBC w/ auto diff MCH pg 26.0 35.0 31.9 FINAL Oziel Box [place] [facility] , [address] [place] [id number] 0 08/14 CBC w/ auto diff MCHC g/dL 30.0 35.0 32.7 FINAL Oziel Box [place] [facility] , [address] [place] [id number] 0 08/14 CBC w/ auto diff MPV fL 9.5 13.4 9.0 Low FINAL Oziel Box [place] [facility] , [address] [place] [id number] 0 08/14 CBC w/ auto diff RDW % 11.4 16.1 13.60 FINAL Oziel Box [place] [facility] , [address] [place] [id number] 0 08/14 CMP Album in g/dL 3.5 5.0 3.7 FINAL Oziel Box * [facility] , [address] [facility] [id number] 0 08/14 CMP Alkal ine phosp hatas e U/L 36.0 125.0 68 FINAL Oziel Box * [facility] , [address] [facility] [id number] 0 08/14 CMP ALT/S GPT U/L 0.0 34.0 10 FINAL Oziel Box * [facility] , [address] [facility] [address] [id number] 0 08/14 CMP AST/S GOT U/L 14.0 36.0 28 FINAL Oziel Box * [facility] , [address] [id number] 0 08/14 CMP BUN mg/dL 7.0 17.0 25.0 High FINAL Oziel Box * [facility] , [address] [facility] [id number] 0 08/14 CMP Calci um mg/dL 8.4 10.2 8.7 FINAL Oziel Box * [facility] , [address] [id number] 0 08/14 CMP Chlor vipin mmol/L 96.0 107.0 109 High FINAL Oziel Box * [facility] , [address] [facility] [id number] 0 08/14 CMP CO2 mmol/L 22.0 30.0 [...] hour stability window. FINAL Oziel Box * [facility] , [facility] [address] [id number] 0 08/14 CMP Creat inine mg/dL 0.66 1.25 0.90 FINAL Oziel Box * [facility] , [facility] [address] [id number] 0 08/14 CMP GFR estim ate ml/min /1.73m ^2 66.5 GFR is calculate d using the CKD-EPI equation. FINAL Oziel Box * [facility] , [facility] [address] [id number] 0 08/14 CMP Gluco se mg/dL 74.0 100.0 95 FINAL Oziel Box * [facility] , [facility] [address] [id number] 0 08/14 CMP Potas sium mmol/L 3.5 5.1 4.5 FINAL Oziel Box * [facility] , [facility] [address] [id number] 0 08/14 CMP Sodiu m mmol/L 137.0 145.0 137 FINAL Oziel Box * [facility] , [address] [facility] [address] [id number] 0 08/14 CMP Bilir ubin, total mg/dL 0.2 1.3 0.8 FINAL Oziel Box * [facility] , [facility] [address] [id number] 0 08/14 CMP Total prote in g/dL 6.3 8.2 6.5 FINAL Oziel Box * [facility] , [facility] [address] [id number] Medications Date Name Route Dose Frequency Instructions Start Date End Date Status Vitamin E77-Ykdkl Acid Oral 500 mcg-400 mcg daily active [...] concentration must be 0.3-1.2 mg/mL.Administ er using Hjf-WCCC-dconj ining equipment and through an in-line 0.22 [...] Oral 02/18/2024 Docusate Sodium Oral 02/18/2024 Vitamin X17-Kpyxx Acid Oral 500 mcg-400 mcg 11/13/2022 Levothyroxine [...] signed by Oziel Box MD 02/21/2024 11:02 JUVENILE OFFICER
--- OUTSIDE RECORDS SUMMARY | 2024-08-27 14:35 | XMS_ITS | CCD ---
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
--- OUTSIDE RECORDS SUMMARY | 2024-08-27 14:35 | XMS_ITS ---
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 Name Role Phone Diane Ramon Unavailable Allergies [...] 20 MIN 05/13/2022 APPOINTMENT CHART CHECK 5 MD N 05/08/2022 APPOINTMENT OV 20 MIN 05/08/2022 [...] 15 MIN 02/20/2022 APPOINTMENT CHART CHECK 5 MD N 01/16/2022 APPOINTMENT PORT DRAW 15 MIN [...] [facility] [place], [address] [facility] [address] [facility] [phone] Phone: () - 10/24 CBC w/ auto diff HGB g/dL 11.3 15.2 12.0 FINAL Lia [facility] [place], [address] [place] [address] d [address] [facility] [phone] 0 Phone: () - 10/24 CBC w/ auto diff PLT K/uL 113.0 364.0 211 FINAL Lia [facility] [place], [address] [facility] [address] [facility] [id number] 0 Phone: () - 10/24 CBC w/ auto diff Dave # (ANC) K/uL 1.6 6.6 3.4 FINAL Lia [facility] - [place], [address] [facility] [address] [facility] [phone] 0 Phone: () - 10/24 CBC w/ auto diff Dave % % 43.0 74.0 62.4 FINAL Lia [facility] - [place], [address] [place] [phone] 0 Phone: () - 10/24 CBC w/ auto diff IG % % 0.0 0.5 1.1 High FINAL Lia [facility] [place], [address] [facility] [address] [place] [phone] 0 Phone: () - 10/24 CBC w/ auto diff IG # K/uL 0.0 0.03 0.06 High FINAL Lia [facility] [place], [address] [facility] [address] [place] [id number] 0 Phone: () - 10/24 CBC w/ auto diff LY % % 14.0 41.0 22.2 FINAL Lia [facility] - [place], [address] [facility] [address] [place] [id number] 0 Phone: () - 10/24 CBC w/ auto diff MO % % 6.0 15.0 10.1 FINAL Lia [facility] - [place], [address] [facility] [address] [place] [id number] 0 Phone: () - 10/24 CBC w/ auto diff EO % % 0.0 7.0 3.8 FINAL Lia [facility] [place], [address] [facility] [address] [place] [id number] 0 Phone: () - 10/24 CBC w/ auto diff BA % % 0.0 2.0 0.4 FINAL Lai [facility] [place], [address] [facility] [address] [place] [phone] 0 Phone: () - 10/24 CBC w/ auto diff LY # K/uL 0.4 3.6 1.2 FINAL Lia [facility] [place], [address] [facility] [address] [place] [id number] 0 Phone: () - 10/24 CBC w/ auto diff MO # K/uL 0.2 1.3 0.6 FINAL Lia [facility] [place], [address] [place] [phone] 0 Phone: () - 10/24 CBC w/ auto diff EO # K/uL 0.0 0.6 0.2 FINAL Lia [facility] - [place], [address] [place] [id number] 0 Phone: () - 10/24 CBC w/ auto diff BA # K/uL 0.0 0.2 0.0 FINAL Lia [facility] [place], [address] [place] [id number] 0 Phone: () - 10/24 CBC w/ auto diff NRBC % #/100W BC 0.0 0.2 0.0 FINAL Lia [facility] [place], [address] [place] [phone] 0 Phone: () - 10/24 CBC w/ auto diff RBC M/uL 3.9 5.1 3.62 Low FINAL Lia [facility] - [place], [address] [place] [phone] 0 Phone: () - 10/24 CBC w/ auto diff HCT % 35.0 48.0 35.7 FINAL Lia [facility] [place], [address] [place] [id number] 0 Phone: () - 10/24 CBC w/ auto diff MCV fL 80.0 104.0 98.6 FINAL Lia [facility] [place], [address] [place] [id number] 0 Phone: () - 10/24 CBC w/ auto diff MCH pg 26.0 35.0 33.1 FINAL Lia [facility] - [place], [address] [place] [id number] 0 Phone: () - 10/24 CBC w/ auto diff MCHC g/dL 30.0 35.0 33.6 FINAL Lia angelo [facility] - [place], [address] [place] [id number] 0 Phone: () - 10/24 CBC w/ auto diff MPV fL 9.5 13.4 9.1 Low FINAL Lia aneglo [facility] - [place], [address] [place] [phone] 0 Phone: () - 10/24 CBC w/ auto diff RDW % 11.4 16.1 12.20 FINAL Lia angelo [facility] - [place], [address] [place] [id number] 0 Phone: () - 10/24 TSH w/ refle x to free T4 TSH uIU/ml 0.32 5.0 0.05 Low Test performed at [facility] on a echoecho Immunoass ay Analyzer that uses an immunoenz ymometric sandwich assay for analysis. Patient testing should not be performed using multiple methodolo ginaun due to analytica l variation seen between test methodharley amador. FINAL Lia Delgado [facility], [address] [place] [address] [phone] 0 Phone: () - 10/24 CMP Album in g/dL 3.2 5.2 4.3 FINAL Lia [facility] [address] [facility] [id number] 0 Phone: () - 10/24 CMP Alkal ine phosp hatas e U/L 46.0 116.0 59 FINAL [facility], [address] [place] [id number] 0 Phone: () - 10/24 CMP ALT/S GPT U/L 7.0 40.0 12 FINAL [facility] [address] [facility] [id number] 0 Phone: () - 10/24 CMP AST/S GOT U/L 13.0 40.0 22 FINAL [facility], [address] [place] [id number] 0 Phone: () - 10/24 CMP BUN mg/dL 9.0 23.0 16 FINAL [place] [address] 100 [facility] [id number] 0 Phone: () - 10/24 CMP Calci um mg/dL 8.7 10.4 9.7 FINAL [place] [address] [facility] 100 [facility] [id number] 0 Phone: () - 10/24 CMP Chlor vipin mmol/L 96.0 114.0 110 FINAL [place] [address] [facility] 100 [facility] [id number] 0 Phone: () - 10/24 CMP CO2 [...] of the 96 hour stability window. FINAL [place] [address] [id number] 0 Phone: () - 10/24 CMP Creat inine mg/dL 0.5 1.2 0.83 FINAL [place] [address] [facility] [address] 100 [facility] [id number] 0 Phone: () - 10/24 CMP GFR estim ate ml/min /1.73m ^2 74.5 GFR is calculate d using the CKD-EPI equation. FINAL [place] [address] [facility] [id number] 0 Phone: () - 10/24 CMP Gluco se mg/dL 73.0 126.0 87 [facility] [address] [facility] 100 [facility] [id number] 0 Phone: () - 10/24 CMP Potas sium mmol/L 3.5 5.1 4.4 [place] [address] [facility] [id number] 0 Phone: () - 10/24 CMP Sodiu m mmol/L 136.0 145.0 145 FINAL Lia [facility], [address] [facility] 100 [facility] [id number] 0 Phone: () - 10/24 CMP Bilir ubin, total mg/dL 0.3 1.2 0.4 FINAL [facility] [address] [facility] [id number] 0 Phone: () - 10/24 CMP Total prote in g/dL 5.7 8.2 6.4 FINAL [place] [address] [facility] 100 [facility] [id number] 0 Phone: () - 10/24 T4, free panel T4, free ng/dL 0.7 1.8 1.62 Test performed at [facility] on a [employer] 2000 Immunoass ay Analyzer that uses an immunoenz ymometric sandwich assay for analysis. Patient testing should not be performed using multiple methodolo gies due to analytica l variation seen between test methodolo gies. FINAL [facility] [address] [facility] [id number] 0 Phone: () - 11/21 TSH w/ refle x to free T4 TSH uIU/ml 0.32 5.0 0.16 Low Test performed at [facility] on a [employer] 2000 Immunoass ay Analyzer that uses an immunoenz ymometric sandwich assay for analysis. Patient testing should not be performed using multiple methodolo gies due to analytica l variation seen between test methodolo gies. FINAL [facility], [address] [facility] [id number] 0 Phone: () - 11/21 CBC w/ auto diff WBC K/uL 3.0 8.9 4.1 [facility], [address] [facility] [id number] 0 Phone: () - 11/21 CBC w/ auto diff HGB g/dL 11.3 15.2 11.8 FINAL Lia [facility] [place], [address] [place] [id number] 0 Phone: () - 11/21 CBC w/ auto diff PLT K/uL 113.0 364.0 223 FINAL Lia [facility] [place], [address] [place] [id number] 0 Phone: () - 11/21 CBC w/ auto diff Dave # (ANC) K/uL 1.6 6.6 2.3 FINAL Lia [facility] [place], [address] [place] [id number] 0 Phone: () - 11/21 CBC w/ auto diff Dave % % 43.0 74.0 56.3 FINAL Lia [facility] [place], [address] [place] [id number] 0 Phone: () - 11/21 CBC w/ auto diff IG % % 0.0 0.5 0.2 FINAL Lia [facility] [place], [address] [place] [phone] 0 Phone: () - 11/21 CBC w/ auto diff IG # K/uL 0.0 0.03 0.01 FINAL Lia [facility] [place], [address] [place] [id number] 0 Phone: () - 11/21 CBC w/ auto diff LY % % 14.0 41.0 29.0 FINAL Lia [facility] [place], [address] [place] [id number] 0 Phone: () - 11/21 CBC w/ auto diff MO % % 6.0 15.0 10.4 FINAL Lia [facility] [place], [address] [place] [id number] 0 Phone: () - 09/09 /2022 CBC w/ auto diff EO % % 0.0 7.0 3.9 FINAL Lia [facility] [place], [address] [place] [id number] 0 Phone: () - 11/21 CBC w/ auto diff BA % % 0.0 2.0 0.2 FINAL Lia [facility] [place], [address] [place] [id number] 0 Phone: () - 11/21 CBC w/ auto diff LY # K/uL 0.4 3.6 1.2 FINAL Lia [facility] [place], [address] [place] [id number] 0 Phone: () - 11/21 CBC w/ auto diff MO # K/uL 0.2 1.3 0.4 FINAL Lia [facility] [place], [address] [place] [id number] 0 Phone: () - 11/21 CBC w/ auto diff EO # K/uL 0.0 0.6 0.2 FINAL Lia [facility] [place], [address] [place] [id number] 0 Phone: () - 11/21 CBC w/ auto diff BA # K/uL 0.0 0.2 0.0 FINAL Lia [facility] [place], [address] [place] [id number] 0 Phone: () - 11/21 CBC w/ auto diff NRBC % #/100W BC 0.0 0.2 0.0 FINAL Lia [facility] [place], [address] [place] [id number] 0 Phone: () - 11/21 CBC w/ auto diff RBC M/uL 3.9 5.1 3.69 Low FINAL Lia [facility] [place], [address] [place] [id number] 0 Phone: () - 11/21 CBC w/ auto diff HCT % 35.0 48.0 35.6 FINAL Lia angelo [facility] - [place], [address] [facility] [address] [place] [id number] 0 Phone: () - 11/21 CBC w/ auto diff MCV fL 80.0 104.0 96.5 FINAL Lai angelo [facility] - [place], [address] [facility] [address] [place] [id number] 0 Phone: () - 11/21 CBC w/ auto diff MCH pg 26.0 35.0 32.0 FINAL Lia angelo [facility] - [place], [address] [place] [address] [address] [place] [id number] 0 Phone: () - 11/21 CBC w/ auto diff MCHC g/dL 30.0 35.0 33.1 FINAL Lia angelo [facility] - [place], [address] [facility] [address] [facility] [place] [id number] 0 Phone: () - 11/21 CBC w/ auto diff MPV fL 9.5 13.4 9.0 Low FINAL Lia angelo [facility] - [place], [address] [facility] [address] [facility] [place] [id number] 0 Phone: () - 11/21 CBC w/ auto diff RDW % 11.4 16.1 12.40 FINAL Lia angelo [facility] - [place], [address] [facility] [address] [facility] [place] [id number] 0 Phone: () - 11/21 CMP Album in g/dL 3.2 5.2 4.1 FINAL Lia Tilley gi Oncology [facility], [address] [place] [address] [place] [id number] 0 Phone: () - 11/21 CMP Alkal ine phosp hatas e U/L 46.0 116.0 52 FINAL [facility], [address] [place] [address] [place] [id number] 0 Phone: () - 11/21 CMP ALT/S GPT U/L 7.0 40.0 17 FINAL [place] [address] [id number] 0 Phone: () - 11/21 CMP AST/S GOT U/L 13.0 40.0 24 FINAL [facility] [address] [id number] 0 Phone: () - 11/21 CMP BUN mg/dL 9.0 23.0 14 FINAL [place] [address] [facility] 100 [facility] [id number] 0 Phone: () - 11/21 CMP Calci um mg/dL 8.7 10.4 9.3 [place] [address] [facility] [address] [id number] 0 Phone: () - 11/21 CMP Chlor vipin mmol/L 96.0 114.0 111 FINAL [place] [address] [facility] [address] [id number] 0 Phone: () - 11/21 CMP CO2 [...] of the 96 hour stability window. FINAL [facility], [facility] [address] [id number] 0 Phone: () - 11/21 CMP Creat inine mg/dL 0.5 1.2 0.79 FINAL [place] [address] [facility] [address] [id number] 0 Phone: () - 11/21 CMP GFR estim ate ml/min /1.73m ^2 79.1 GFR is calculate d using the CKD-EPI equation. [place] [address] [facility] [address] [phone] 0 Phone: () - 11/21 CMP Gluco se mg/dL 73.0 126.0 86 FINAL [facility], [address] [facility] 100 [facility] [id number] 0 Phone: () - 11/21 CMP Potas sium mmol/L 3.5 5.1 4.5 FINAL [facility] [address] [facility] 100 [facility] [id number] 0 Phone: () - 11/21 CMP Sodiu m mmol/L 136.0 145.0 144 FINAL [place] [address] [facility] 100 [facility] [id number] 0 Phone: () - 11/21 CMP Bilir ubin, total mg/dL 0.3 1.2 0.3 FINAL [place] [address] [id number] 0 Phone: () - 11/21 CMP Total prote in g/dL 5.7 8.2 6.2 FINAL [place] [address] [id number] 0 Phone: () - 11/21 T4, free panel T4, free ng/dL 0.7 1.8 1.13 Test performed at [facility] on a [employer] 2000 Immunoass ay Analyzer that uses an immunoenz ymometric sandwich assay for analysis. Patient testing should not be performed using multiple methodharley amador due to analytica l variation seen between test kathi amador. FINAL [facility], [facility] [address] [facility] [address] [place] [address] [id number] 0 Phone: () - 12/19 CBC w/ auto diff WBC K/uL 3.0 8.9 4.[address] [facility], [address] [facility] [id number] 0 Phone: () - 12/19 CBC w/ auto diff HGB g/dL 11.3 15.2 11.[address] [facility] - [place], [address] [place] [id number] 0 Phone: () - 12/19 CBC w/ auto diff PLT K/uL 113.0 364.0 218 FINAL Oziel Tolbert a [facility] - [place], [address] [place] [id number] 0 Phone: () - 12/19 CBC w/ auto diff Dave # (ANC) K/uL 1.6 6.6 2.7 FINAL Oziel [facility] - [place], [address] [place] [id number] 0 Phone: () - 12/19 CBC w/ auto diff Dave % % 43.0 74.0 55.3 FINAL Oziel [facility] - [place], [address] [place] [id number] 0 Phone: () - 12/19 CBC w/ auto diff IG % % 0.0 0.5 0.2 FINAL Oziel Tolbert a [facility] - [place], [address] [place] [id number] 0 Phone: () - 12/19 CBC w/ auto diff IG # K/uL 0.0 0.03 0.01 FINAL Oziel Tolbert a [facility] - [place], [address] [place] [id number] 0 Phone: () - 12/19 CBC w/ auto diff LY % % 14.0 41.0 30.6 FINAL Oziel Tolbert a [facility] - [place], [address] [place] [id number] 0 Phone: () - 12/19 CBC w/ auto diff MO % % 6.0 15.0 9.3 FINAL Oziel Tolbert a [facility] - [place], [address] [place] [phone] 0 Phone: () - 12/19 CBC w/ auto diff EO % % 0.0 7.0 4.0 FINAL Oziel T[facility]ley[facility] a [facility] - [place], [address] [place] [id number] 0 Phone: () - 12/19 CBC w/ auto diff BA % % 0.0 2.0 0.6 FINAL Oziel [facility] - [place], [address] [place] [id number] 0 Phone: () - 12/19 CBC w/ auto diff LY # K/uL 0.4 3.6 1.5 FINAL Oziel [facility] - [place], [address] [place] [id number] 0 Phone: () - 12/19 CBC w/ auto diff MO # K/uL 0.2 1.3 0.5 FINAL Oziel [facility] - [place], [address] [place] [id number] 0 Phone: () - 12/19 CBC w/ auto diff EO # K/uL 0.0 0.6 0.2 FINAL Oziel Tolbert a [facility] - [place], [address] [place] [id number] 0 Phone: () - 12/19 CBC w/ auto diff BA # K/uL 0.0 0.2 0.0 FINAL Oziel angelo [facility] - [place], [address] [place] [id number] 0 Phone: () - 12/19 CBC w/ auto diff NRBC % #/100W BC 0.0 0.2 0.0 FINAL Oziel angelo [facility] - [place], [address] [place] [id number] 0 Phone: () - 12/19 CBC w/ auto diff RBC M/uL 3.9 5.1 3.68 Low FINAL Oziel angelo [facility] - [place], [address] [place] [id number] 0 Phone: () - 12/19 CBC w/ auto diff HCT % 35.0 48.0 35.3 FINAL Oziel angelo [facility] - [place], [address] [place] [id number] 0 Phone: () - 12/19 CBC w/ auto diff MCV fL 80.0 104.0 95.9 FINAL Oziel angelo [facility] - [place], [address] [place] [id number] 0 Phone: () - 12/19 CBC w/ auto diff MCH pg 26.0 35.0 32.1 FINAL Oziel angelo [facility] - [place], [address] [place] [id number] 0 Phone: () - 12/19 CBC w/ auto diff MCHC g/dL 30.0 35.0 33.4 FINAL Oziel angelo [facility] - [place], [address] [place] [id number] 0 Phone: () - 12/19 CBC w/ auto diff MPV fL 9.5 13.4 9.1 Low FINAL Oziel angelo [facility] - [place], [address] [place] [id number] 0 Phone: () - 12/19 CBC w/ auto diff RDW % 11.4 16.1 13.30 FINAL Oziel angelo [facility] - [place], [address] [place] [id number] 0 Phone: () - 12/19 CMP Album in g/dL 3.2 5.2 4.0 FINAL Oziel angelo [facility] - [place], [address] [place] [id number] 0 Phone: () - 12/19 CMP Alkal ine phosp hatas e U/L 46.0 116.0 58 FINAL Oziel angelo [facility] - [place], [address] [place] [phone] 0 Phone: () - 12/19 CMP ALT/S GPT U/L 7.0 40.0 13 FINAL Oziel angelo Oncology [facility], [address] [facility] [id number] 0 Phone: () - 12/19 CMP AST/S GOT U/L 13.0 40.0 24 FINAL Oziel angelo [facility], [address] [facility] 100 [facility] [id number] 0 Phone: () - 12/19 CMP BUN mg/dL 9.0 23.0 18 FINAL Oziel angelo [place] [address] [facility] 100 [facility] [id number] 0 Phone: () - 12/19 CMP Calci um mg/dL 8.7 10.4 9.7 FINAL Oziel angelo [place] [address] [id number] 0 Phone: () - 12/19 CMP Chlor vipin mmol/L 96.0 114.0 111 FINAL Oziel angelo [place] [address] [id number] 0 Phone: () - 12/19 CMP CO2 [...] 96 hour stability window. FINAL Oziel angelo [facility], [facility] [address] [phone] 0 Phone: () - 12/19 CMP Creat inine mg/dL 0.5 1.2 0.82 FINAL Oziel angelo [place] [address] [id number] 0 Phone: () - 12/19 CMP GFR estim ate ml/min /1.73m ^2 75.6 GFR is calculate d using the CKD-EPI equation. FINAL Oziel angelo [place] [address] [id number] 0 Phone: () - 12/19 CMP Gluco se mg/dL 73.0 126.0 81 FINAL Oziel angelo [facility] [address] [facility] 100 [facility] [phone] 0 Phone: () - 12/19 CMP Potas sium mmol/L 3.5 5.1 4.4 FINAL Oziel angelo [facility] [address] [facility] 100 [facility] [id number] 0 Phone: () - 12/19 CMP Sodiu m mmol/L 136.0 145.0 144 FINAL Oziel angelo [facility] [address] [facility] 100 [facility] [phone] 0 Phone: () - 12/19 CMP Bilir ubin, total mg/dL 0.3 1.2 0.4 FINAL Oziel angelo [place] [address] [id number] 0 Phone: () - 12/19 CMP Total prote in g/dL 5.7 8.2 6.3 FINAL Oziel angelo [place] [address] [facility] [address] [id number] 0 Phone: () - 12/19 TSH w/ refle x to free T4 TSH uIU/ml 0.32 5.0 2.75 Test performed at [facility] on a echoecho Immunoass ay Analyzer that uses an immunoenz ymometric sandwich assay for analysis. Patient testing should not be performed using multiple methodolo ginaun due to analytica l variation seen between test methodharley amador. 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 01/16 CMP Album in g/dL 3.2 5.2 4.3 FINAL Oziel angelo [place] [address] [facility] [address] [phone] 0 Phone: () - 01/16 CMP Alkal ine phosp hatas e U/L 46.0 116.0 64 FINAL Oziel angelo [facility] [address] [place] [address] [id number] 0 Phone: () - 01/16 CMP ALT/S GPT U/L 7.0 40.0 12 FINAL Oziel angelo [facility], [address] [id number] 0 Phone: () - 01/16 CMP AST/S GOT U/L 13.0 40.0 23 FINAL Oziel angelo [facility] [address] [facility] [address] [id number] 0 Phone: () - 01/16 CMP BUN mg/dL 9.0 23.0 17 FINAL Oziel angelo [place] [address] [id number] 0 Phone: () - 01/16 CMP Calci um mg/dL 8.7 10.4 9.4 FINAL Oziel angelo [place] [address] [id number] 0 Phone: () - 01/16 CMP Chlor vipin mmol/L 96.0 114.0 108 FINAL Oziel angelo [place] [address] [id number] 0 Phone: () - 01/16 CMP CO2 [...] 96 hour stability window. FINAL Oziel angelo [place] [address] [phone] 0 Phone: () - 01/16 CMP Creat inine mg/dL 0.5 1.2 1.07 FINAL Oziel angelo [place] [address] [facility] [address] [id number] 0 Phone: () - 01/16 CMP GFR estim ate ml/min /1.73m ^2 54.9 Low GFR is calculate d using the CKD-EPI equation. FINAL Oziel angelo [facility], [facility] N [address] [phone] 0 Phone: () - 01/16 CMP Gluco se mg/dL 73.0 126.0 84 FINAL Oziel angelo [facility], [address] [facility] [id number] 0 Phone: () - 01/16 CMP Potas sium mmol/L 3.5 5.1 4.4 FINAL Oziel angelo [facility], [address] [facility] [phone] 0 Phone: () - 01/16 CMP Sodiu m mmol/L 136.0 145.0 141 FINAL Oziel angelo [facility] [address] [address] [facility] [phone] Phone: () - 01/16 CMP Bilir ubin, total mg/dL 0.3 1.2 0.4 FINAL Oziel angelo [facility] [address] [facility] [id number] [phone] Phone: () - 01/16 CMP Total prote in g/dL 5.7 8.2 6.6 FINAL Oziel angelo [facility] [address] [facility] [id number] 0 Phone: () - 01/16 TSH w/ refle x to free T4 TSH uIU/ml 0.32 5.0 14.74 High Provider Alert. Notified Vicki by Lynne Flannery on 01/19/2022 at 2:55 PM.Test performed at [facility] on a [employer] 2000 Immunoass ay Analyzer that uses an immunoenz ymometric sandwich assay for analysis. Patient testing should not be performed using multiple kathi amador due to analytica l variation seen between test kathi amador. FINAL Oziel angelo [facility], [address] [facility] [id number] 0 Phone: () - 01/16 CBC w/ auto diff WBC K/uL 3.0 8.9 4.4 FINAL Oziel angelo [facility] [place], [address] [facility] [id number] 0 Phone: () - 01/16 CBC w/ auto diff HGB g/dL 11.3 15.2 11.9 FINAL Oziel angelo [facility] - [place], [address] [place] [id number] 0 Phone: () - 01/16 CBC w/ auto diff PLT K/uL 113.0 364.0 231 FINAL Oziel Tilleyot a [facility] - [place], [address] [place] [id number] 0 Phone: () - 01/16 CBC w/ auto diff Dave # (ANC) K/uL 1.6 6.6 2.4 FINAL Oziel Tilleyot a [facility] - [place], [address] [place] [id number] 0 Phone: () - 01/16 CBC w/ auto diff Dave % % 43.0 74.0 54.7 FINAL Oziel Tilleyot a [facility] - [place], [address] [place] [id number] 0 Phone: () - 01/16 CBC w/ auto diff IG % % 0.0 0.5 0.2 FINAL Oziel Tilleyot a [facility] [place], [address] [place] [id number] 0 Phone: () - 01/16 CBC w/ auto diff IG # K/uL 0.0 0.03 0.01 FINAL Oziel Tilleyot a [facility] - [place], [address] [place] [id number] 0 Phone: () - 01/16 CBC w/ auto diff LY % % 14.0 41.0 31.8 FINAL Oziel Tilleyot a [facility] [place], [address] [place] [id number] 0 Phone: () - 01/16 CBC w/ auto diff MO % % 6.0 15.0 8.9 FINAL Oziel Tilleyot a [facility] [place], [address] [place] [id number] 0 Phone: () - 01/16 CBC w/ auto diff EO % % 0.0 7.0 3.9 FINAL Oziel Tilleyot a [facility] [place], [address] [place] [id number] 0 Phone: () - 01/16 CBC w/ auto diff BA % % 0.0 2.0 0.5 FINAL Oziel Tilleyot a [facility] [place], [address] [place] [id number] 0 Phone: () - 01/16 CBC w/ auto diff LY # K/uL 0.4 3.6 1.4 FINAL Oziel Tilleyot a [facility] [place], [address] [place] [id number] 0 Phone: () - 01/16 CBC w/ auto diff MO # K/uL 0.2 1.3 0.4 FINAL Oziel Tilleyot a [facility] [place], [address] [place] [id number] 0 Phone: () - 01/16 CBC w/ auto diff EO # K/uL 0.0 0.6 0.2 FINAL Oziel angelo [facility] [place], [address] [place] [id number] 0 Phone: () - 01/16 CBC w/ auto diff BA # K/uL 0.0 0.2 0.0 FINAL Oziel Tilleyot gi [facility] [place], [address] [place] [id number] 0 Phone: () - 01/16 CBC w/ auto diff NRBC % #/100W BC 0.0 0.2 0.0 FINAL Oziel Tilleyot a [facility] - [place], [address] [place] [id number] 0 Phone: () - 01/16 CBC w/ auto diff RBC M/uL 3.9 5.1 3.69 Low FINAL Oziel angelo [facility] [place], [address] [place] [id number] 0 Phone: () - 01/16 CBC w/ auto diff HCT % 35.0 48.0 35.0 FINAL [facility]iel [facility] [place] [facility] [place], [address] [place] [id number] 0 Phone: () - 01/16 CBC w/ auto diff MCV fL 80.0 104.0 94.9 FINAL Oziel angelo [facility] [place], [address] [place] [id number] 0 Phone: () - 01/16 CBC w/ auto diff MCH pg 26.0 35.0 32.2 FINAL Oziel angelo [facility] [place], [address] [place] [id number] 0 Phone: () - 01/16 CBC w/ auto diff MCHC g/dL 30.0 35.0 34.0 FINAL Oziel angelo [facility] [place], [address] [place] [id number] 0 Phone: () - 01/16 CBC w/ auto diff MPV fL 9.5 13.4 8.8 Low FINAL Oziel angelo [facility] - [place], [address] [place] [id number] 0 Phone: () - 01/16 CBC w/ auto diff RDW % 11.4 16.1 13.90 FINAL Oziel angelo [facility] - [place], [address] [place] [id number] 0 Phone: () - 01/16 T4, free panel T4, free ng/dL 0.7 1.8 0.75 Test performed at [facility] on a echoecho Immunoass ay Analyzer that uses an immunoenz ymometric sandwich assay for analysis. Patient testing should not be performed using multiple methodharley amador due to analytica l variation seen between test kathi amador. FINAL Oziel angelo [facility] - [place], [address] [place] [id number] 0 Phone: () - 02/20 TSH w/ refle x to free T4 TSH uIU/ml 0.32 5.0 Sent to Refer ce Lab. Hard copy results availab le only. Test performed at [facility] on a [employer] 2000 Immunoass ay Analyzer that uses an immunoenz ymometric sandwich assay for analysis. Patient testing should not be performed using multiple kathi amador due to analytica l variation seen between test kathi amador. FINAL Oziel angelo [facility] - [place], [address] [place] [id number] 0 Phone: () - 02/20 TSH uIU/mL 0.35 4.94 8.74 High In Adults, TSH values between 5.00 and 10.00 uIU/ml do notnecess arily indicate the presence of Hypothyro idism.Cor relation with clinical findings such as presence of goiterand /or Thyropero xidase (TPO) Antibody may be helpful. Formore informati on please refer to MAYELA 2004; 291: 228-238.T est Performed by:[facility] [address] - [facility] [place], [place] [address]Flpi e : FINAL Oziel Box 02/20 T4, free panel T4, free ng/dL 0.7 1.8 1.01 Test Performed by:[facility] [address] - [facility] [place] [address]Igeh e : FINAL Oziel Box 05/08 CBC w/ auto diff WBC K/uL 3.0 8.9 7.3 FINAL Oziel angelo [facility] - [place], [address] [facility] [address] [facility] [place] [id number] 0 Phone: () - 05/08 CBC w/ auto diff HGB g/dL 11.3 15.2 11.0 Low FINAL Oziel angelo [facility] [place], [address] [facility] [address] [place] [id number] 0 Phone: () - 05/08 CBC w/ auto diff PLT K/uL 113.0 364.0 210 FINAL Oziel angelo [facility] [place], [address] [place] [id number] 0 Phone: () - 05/08 CBC w/ auto diff Dave # (ANC) K/uL 1.6 6.6 3.7 FINAL [facility]iel [facility] [place] [facility] [place], [address] [place] [id number] 0 Phone: () - 05/08 CBC w/ auto diff Dave % % 43.0 74.0 51.1 FINAL Oziel Tilleyot a [facility] - [place], [address] [place] [id number] 0 Phone: () - 05/08 CBC w/ auto diff IG % % 0.0 0.5 0.3 FINAL Oziel Tilleyot a [facility] - [place], [address] [place] [id number] 0 Phone: () - 05/08 CBC w/ auto diff IG # K/uL 0.0 0.03 0.02 FINAL Oziel Tilleyot a [facility] - [place], [address] [place] [id number] 0 Phone: () - 05/08 CBC w/ auto diff LY % % 14.0 41.0 37.9 FINAL Oziel Tilleyot a [facility] [place], [address] [place] [id number] 0 Phone: () - 05/08 CBC w/ auto diff MO % % 6.0 15.0 9.2 FINAL Oziel Tilleyot a [facility] - [place], [address] [place] [id number] 0 Phone: () - 05/08 CBC w/ auto diff EO % % 0.0 7.0 1.2 FINAL Oziel Tilleyot a [facility] [place], [address] [place] [id number] 0 Phone: () - 05/08 CBC w/ auto diff BA % % 0.0 2.0 0.3 FINAL Oziel Tilleyot a [facility] - [place], [address] [place] [id number] 0 Phone: () - 05/08 CBC w/ auto diff LY # K/uL 0.4 3.6 2.8 FINAL Oziel angelo [facility] [place], [address] [place] [id number] 0 Phone: () - 05/08 CBC w/ auto diff MO # K/uL 0.2 1.3 0.7 FINAL Oziel Tilleyot a [facility] [place], [address] [place] [id number] 0 Phone: () - 05/08 CBC w/ auto diff EO # K/uL 0.0 0.6 0.1 FINAL Oziel Tilley[facility] a [facility] [place], [address] [place] [id number] 0 Phone: () - 05/08 CBC w/ auto diff BA # K/uL 0.0 0.2 0.0 FINAL Oziel Tilley[facility] [place], [address] [place] [id number] 0 Phone: () - 05/08 CBC w/ auto diff NRBC % #/100W BC 0.0 0.2 0.0 FINAL Oziel angelo [facility] [place], [address] [place] [id number] 0 Phone: () - 05/08 CBC w/ auto diff RBC M/uL 3.9 5.1 3.27 Low FINAL Oziel angelo [facility] [place], [address] [place] [id number] 0 Phone: () - 05/08 CBC w/ auto diff HCT % 35.0 48.0 32.1 Low FINAL Oziel Tolbert a [facility] - [place], [address] [place] [id number] 0 Phone: () - 05/08 CBC w/ auto diff MCV fL 80.0 104.0 98.2 FINAL Oziel Tilleyot a [facility] [place], [address] [place] [id number] 0 Phone: () - 05/08 CBC w/ auto diff MCH pg 26.0 35.0 33.6 FINAL Oziel angelo [facility] [place], [address] [place] [id number] 0 Phone: () - 05/08 CBC w/ auto diff MCHC g/dL 30.0 35.0 34.3 FINAL Oziel angelo [facility] [place], [address] [place] [id number] 0 Phone: () - 05/08 CBC w/ auto diff MPV fL 9.5 13.4 9.4 Low FINAL Oziel angelo [facility] [place], [address] [place] [id number] 0 Phone: () - 05/08 CBC w/ auto diff RDW % 11.4 16.1 13.10 FINAL Oziel angelo [facility] - [place], [address] [place] [id number] 0 Phone: () - 05/08 CMP Album in g/dL 3.2 5.2 4.0 FINAL Oziel angelo [facility], [address] [place] [id number] 0 Phone: () - 05/08 CMP Alkal ine phosp hatas e U/L 46.0 116.0 56 FINAL Oziel angelo [facility], [address] [place] [id number] 0 Phone: () - 05/08 CMP ALT/S GPT U/L 7.0 40.0 17 FINAL Oziel angelo [facility], [address] [place] [id number] 0 Phone: () - 05/08 CMP AST/S GOT U/L 13.0 40.0 21 FINAL Oziel angelo [facility], [address] [place] [id number] 0 Phone: () - 05/08 CMP BUN mg/dL 9.0 23.0 22 FINAL Oziel angelo [facility], [address] [place] [id number] 0 Phone: () - 05/08 CMP Calci um mg/dL 8.7 10.4 9.3 FINAL Oziel angelo [place] [address] [id number] 0 Phone: () - 05/08 CMP Chlor vipin mmol/L 96.0 114.0 112 FINAL Oziel angelo [place] [address] [id number] 0 Phone: () - 05/08 CMP CO2 [...] 96 hour stability window. FINAL Oziel angelo [place] [address] [id number] 0 Phone: () - 05/08 CMP Creat inine mg/dL 0.5 1.2 0.86 FINAL Oziel angelo [place] [address] [id number] 0 Phone: () - 05/08 CMP GFR estim ate ml/min /1.73m ^2 71.2 GFR is calculate d using the CKD-EPI equation. FINAL Oziel angelo [place] [address] [id number] 0 Phone: () - 05/08 CMP Gluco se mg/dL 73.0 126.0 77 FINAL Oziel angelo [place] [address] [id number] 0 Phone: () - 05/08 CMP Potas sium mmol/L 3.5 5.1 3.9 FINAL Oziel angelo [place] [address] [id number] 0 Phone: () - 05/08 CMP Sodiu m mmol/L 136.0 145.0 148 High FINAL Oziel angelo [place] [address] [id number] 0 Phone: () - 05/08 CMP Bilir ubin, total mg/dL 0.3 1.2 0.4 FINAL Oziel angelo [place] [address] [id number] 0 Phone: () - 05/08 CMP Total prote in g/dL 5.7 8.2 6.1 FINAL Oziel angelo [place] [address] [id number] 0 Phone: () - 05/08 TSH w/ refle x to free T4 TSH uIU/ml 0.32 5.0 1.36 Test performed at [facility] on a echoecho Immunoass ay Analyzer that uses an immunoenz ymometric sandwich assay for analysis. Patient testing should not be performed using multiple methodolo gies due to analytica l variation seen between test methodolo ginaun. FINAL Oziel angelo [place] [address] [id number] 0 Phone: () - 07[place]23 [facility] [place] See focused factory manager d 07[place]23 [facility] [place] See focused factory manager d 11/03 CMP Album in g/dL 3.2 5.2 4.1 FINAL Oziel angelo [place] [address] [id number] 0 Phone: () - 11/03 CMP Alkal ine phosp hatas e U/L 46.0 116.0 59 FINAL Oziel angelo [place] [address] [id number] 0 Phone: () - 11/03 CMP ALT/S GPT U/L 7.0 40.0 <7 FINAL Oziel angelo [place] [address] [id number] 0 Phone: () - 11/03 CMP AST/S GOT U/L 13.0 40.0 24 FINAL Oziel angelo [place] [address] [id number] 0 Phone: () - 11/03 CMP BUN mg/dL 9.0 23.0 16.0 FINAL Oziel angelo [place] [address] [facility] [address] [facility] [id number] 0 Phone: () - 11/03 CMP Calci um mg/dL 8.7 10.4 9.1 FINAL Oziel angelo [place] [address] [id number] 0 Phone: () - 11/03 CMP Chlor vipin mmol/L 96.0 114.0 105 FINAL Oziel angelo [place] [address] [id number] 0 Phone: () - 11/03 CMP CO2 [...] 96 hour stability window. FINAL Oziel angelo [place] [address] [id number] 0 Phone: () - 11/03 CMP Creat inine mg/dL 0.5 1.2 0.88 FINAL Oziel angelo [address] [id number] 0 Phone: () - 11/03 CMP GFR estim ate ml/min /1.73m ^2 69.0 GFR is calculate d using the CKD-EPI equation. FINAL Oziel angelo [place] [address] [id number] 0 Phone: () - 11/03 CMP Gluco se mg/dL 73.0 126.0 105 FINAL Oziel angelo [place] [address] [id number] 0 Phone: () - 11/03 CMP Potas sium mmol/L 3.5 5.1 4.4 FINAL Oziel angelo [place] [address] [id number] 0 Phone: () - 11/03 CMP Sodiu m mmol/L 136.0 145.0 139 FINAL Oziel angelo [facility] - [place], [address] [place] [id number] 0 Phone: () - 11/03 CMP Bilir ubin, total mg/dL 0.3 1.2 0.6 FINAL Oziel angelo [facility] - [place], [address] [place] [id number] 0 Phone: () - 11/03 CMP Total prote in g/dL 5.7 8.2 6.6 FINAL Oziel angelo [facility] - [place], [address] [place] [id number] 0 Phone: () - 11/03 CBC w/ auto diff WBC K/uL 3.0 8.9 4.7 FINAL Oziel angelo [facility] - [place], [address] [facility] [place] [id number] 0 Phone: () - 11/03 CBC w/ auto diff HGB g/dL 11.3 15.2 11.6 FINAL Oziel angelo [facility] - [place], [address] [place] [id number] 0 Phone: () - 11/03 CBC w/ auto diff PLT K/uL 113.0 364.0 248 FINAL Oziel angelo [facility] [place], [address] [place] [id number] 0 Phone: () - 11/03 CBC w/ auto diff Dave # (ANC) K/uL 1.6 6.6 2.9 FINAL Oziel angelo [facility] - [place], [address] [place] [id number] 0 Phone: () - 11/03 CBC w/ auto diff Dave % % 43.0 74.0 60.9 FINAL Oziel angelo [facility] [place], [address] [place] [id number] 0 Phone: () - 11/03 CBC w/ auto diff IG % % 0.0 0.5 0.4 FINAL [facility] [place] [facility] [place], [address] [place] [id number] 0 Phone: () - 11/03 CBC w/ auto diff IG # K/uL 0.0 0.03 0.02 FINAL Oziel Tilleyot a [facility] - [place], [address] [place] [id number] 0 Phone: () - 11/03 CBC w/ auto diff LY % % 14.0 41.0 26.8 FINAL Oziel Tilleyot a [facility] [place], [address] [place] [id number] 0 Phone: () - 11/03 CBC w/ auto diff MO % % 6.0 15.0 8.5 FINAL Oziel T[facility]ley[facility] a [facility] [place], [address] [place] [id number] 0 Phone: () - 11/03 CBC w/ auto diff EO % % 0.0 7.0 3.0 FINAL Oziel Tilleyot a [facility] [place], [address] [place] [id number] 0 Phone: () - 11/03 CBC w/ auto diff BA % % 0.0 2.0 0.4 FINAL Oziel Tilleyot a [facility] [place], [address] [place] [id number] 0 Phone: () - 11/03 CBC w/ auto diff LY # K/uL 0.4 3.6 1.3 FINAL Oziel Tilleyot a [facility] [place], [address] [place] [id number] 0 Phone: () - 11/03 CBC w/ auto diff MO # K/uL 0.2 1.3 0.4 FINAL Oziel Tilleyot a [facility] - [place], [address] [place] [id number] 0 Phone: () - 11/03 CBC w/ auto diff EO # K/uL 0.0 0.6 0.1 FINAL Oziel angelo [facility] [place], [address] [place] [id number] 0 Phone: () - 11/03 CBC w/ auto diff BA # K/uL 0.0 0.2 0.0 FINAL Oziel Tolbert a [facility] - [place], [address] [place] [id number] 0 Phone: () - 11/03 CBC w/ auto diff NRBC % #/100W BC 0.0 0.2 0.0 FINAL Oziel Tilleyot a [facility] [place], [address] [place] [id number] 0 Phone: () - 11/03 CBC w/ auto diff RBC M/uL 3.9 5.1 3.52 Low FINAL Oziel Tolbert a [facility] - [place], [address] [place] [id number] 0 Phone: () - 11/03 CBC w/ auto diff HCT % 35.0 48.0 34.2 Low FINAL Oziel angelo [facility] - [place], [address] [place] [id number] 0 Phone: () - 11/03 CBC w/ auto diff MCV fL 80.0 104.0 97.2 FINAL Oziel angelo [facility] - [place], [address] [place] [id number] 0 Phone: () - 11/03 CBC w/ auto diff MCH pg 26.0 35.0 33.0 FINAL Oziel angelo [facility] - [place], [address] [place] [id number] 0 Phone: () - 11/03 CBC w/ auto diff MCHC g/dL 30.0 35.0 33.9 FINAL Oziel Tilleyot a [facility] - [place], [address] [place] [id number] 0 Phone: () - 11/03 CBC w/ auto diff MPV fL 9.5 13.4 8.7 Low FINAL Oziel angelo [facility] - [place], [address] [place] [id number] 0 Phone: () - 11/03 CBC w/ auto diff RDW % 11.4 16.1 14.40 FINAL Oziel angelo [facility] - [place], [address] [place] [id number] 0 Phone: () - 02/08 TSH w/ refle x to free T4 TSH uIU/ml 0.32 5.0 3.61 Test performed at [facility] on a echoecho Immunoass ay Analyzer that uses an immunoenz ymometric sandwich assay for analysis. Patient testing should not be performed using multiple methodharley amador due to analytica l variation seen between test methodharley amador. FINAL Oziel angelo [facility] - [place], [address] [place] [id number] 0 Phone: () - 02/08 CBC w/ auto diff WBC K/uL 3.0 8.9 4.7 FINAL Oziel angelo [facility] - [place], [address] [place] [id number] 0 Phone: () - 02/08 CBC w/ auto diff HGB g/dL 11.3 15.2 11.0 Low FINAL Oziel angelo [facility] - [place], [address] [place] [id number] 0 Phone: () - 02/08 CBC w/ auto diff PLT K/uL 113.0 364.0 194 FINAL Oziel angelo [facility] - [place], [address] [place] [id number] 0 Phone: () - 02/08 CBC w/ auto diff Dave # (ANC) K/uL 1.6 6.6 2.7 FINAL Oziel angelo [facility] - [place], [address] [place] [id number] 0 Phone: () - 02/08 CBC w/ auto diff Dave % % 43.0 74.0 57.2 FINAL [facility] [place] [facility] [place], [address] [place] [id number] 0 Phone: () - 02/08 CBC w/ auto diff IG % % 0.0 0.5 0.4 FINAL Oziel T[facility]ley[facility] - [place], [address] [place] [id number] 0 Phone: () - 02/08 CBC w/ auto diff IG # K/uL 0.0 0.03 0.02 FINAL Oziel T[facility] - [place], [address] [place] [id number] 0 Phone: () - 02/08 CBC w/ auto diff LY % % 14.0 41.0 31.6 FINAL Oziel T[facility] - [place], [address] [place] [id number] 0 Phone: () - 02/08 CBC w/ auto diff MO % % 6.0 15.0 8.0 FINAL Oziel Tilleyot a [facility] - [place], [address] [place] [id number] 0 Phone: () - 02/08 CBC w/ auto diff EO % % 0.0 7.0 2.2 FINAL Oziel [facility] - [place], [address] [place] [id number] 0 Phone: () - 02/08 CBC w/ auto diff BA % % 0.0 2.0 0.6 FINAL Oziel [facility] - [place], [address] [place] [id number] 0 Phone: () - 02/08 CBC w/ auto diff LY # K/uL 0.4 3.6 1.5 FINAL Oziel T[facility] - [place], [address] [place] [id number] 0 Phone: () - 02/08 CBC w/ auto diff MO # K/uL 0.2 1.3 0.4 FINAL Oziel Tolbert a [facility] - [place], [address] [place] [id number] 0 Phone: () - 02/08 CBC w/ auto diff EO # K/uL 0.0 0.6 0.1 FINAL Oziel T[facility]ley[facility] - [place], [address] [place] [id number] 0 Phone: () - 02/08 CBC w/ auto diff BA # K/uL 0.0 0.2 0.0 FINAL Oziel Tilleyot a [facility] - [place], [address] [place] [id number] 0 Phone: () - 02/08 CBC w/ auto diff NRBC % #/100W BC 0.0 0.2 0.0 FINAL Oziel Tilleyot a [facility] - [place], [address] [place] [id number] 0 Phone: () - 02/08 CBC w/ auto diff RBC M/uL 3.9 5.1 3.26 Low FINAL Oziel angelo [facility] - [place], [address] [place] [id number] 0 Phone: () - 02/08 CBC w/ auto diff HCT % 35.0 48.0 32.9 Low FINAL Oziel angelo [facility] - [place], [address] [place] [id number] 0 Phone: () - 02/08 CBC w/ auto diff MCV fL 80.0 104.0 100.9 FINAL Oziel T[facility]leyot a [facility] - [place], [address] [place] [id number] 0 Phone: () - 02/08 CBC w/ auto diff MCH pg 26.0 35.0 33.7 FINAL Oziel T[facility]leyot a [facility] - [place], [address] [place] [id number] 0 Phone: () - 02/08 CBC w/ auto diff MCHC g/dL 30.0 35.0 33.4 FINAL Oziel angelo [facility] - [place], [address] [place] [id number] 0 Phone: () - 02/08 CBC w/ auto diff MPV fL 9.5 13.4 9.0 Low FINAL Oziel angelo [facility] - [place], [address] [place] [id number] 0 Phone: () - 02/08 CBC w/ auto diff RDW % 11.4 16.1 13.70 FINAL Oziel angelo [facility] [place], [address] [facility] [address] [place] [id number] 0 Phone: () - 02/08 CMP Album in g/dL 3.2 5.2 4.0 FINAL Oziel angelo [facility], [address] [place] [address] [phone] 0 Phone: () - 02/08 CMP Alkal ine phosp hatas e U/L 46.0 116.0 83 FINAL Oziel angelo [facility], [address] [place] [id number] 0 Phone: () - 02/08 CMP ALT/S GPT U/L 7.0 40.0 <7 FINAL Oziel angelo [facility], [address] [place] [id number] 0 Phone: () - 02/08 CMP AST/S GOT U/L 13.0 40.0 23 FINAL Oziel angelo [facility], [address] [place] [id number] 0 Phone: () - 02/08 CMP BUN mg/dL 9.0 23.0 17.0 FINAL Oziel angelo [facility], [address] [place] [id number] 0 Phone: () - 02/08 CMP Calci um mg/dL 8.7 10.4 8.8 FINAL Oziel angelo [facility], [address] [facility] [id number] 0 Phone: () - 02/08 CMP Chlor vipin mmol/L 96.0 114.0 109 FINAL Oziel angelo [facility], [address] [facility] [address] [id number] 0 Phone: () - 02/08 CMP CO2 [...] 96 hour stability window. FINAL Oziel angelo [place] [address] [id number] 0 Phone: () - 02/08 CMP Creat inine mg/dL 0.5 1.2 0.86 FINAL Oziel angelo [place] [address] [id number] 0 Phone: () - 02/08 CMP GFR estim ate ml/min /1.73m ^2 70.9 GFR is calculate d using the CKD-EPI equation. FINAL Oziel angelo [place] [address] [facility] [address] [id number] 0 Phone: () - 02/08 CMP Gluco se mg/dL 73.0 126.0 84 FINAL Oziel angelo [facility] [address] [facility] [address] [id number] 0 Phone: () - 02/08 CMP Potas sium mmol/L 3.5 5.1 4.5 FINAL Oziel angelo [facility] [address] [facility] [address] [id number] 0 Phone: () - 02/08 CMP Sodiu m mmol/L 136.0 145.0 141 FINAL Oziel angelo [place] [address] [facility] [address] [id number] 0 Phone: () - 02/08 CMP Bilir ubin, total mg/dL 0.3 1.2 0.3 FINAL Oziel angelo [facility] [address] [facility] [address] [id number] 0 Phone: () - 02/08 CMP Total prote in g/dL 5.7 8.2 6.1 FINAL Oziel Tilleyot [facility] - [place], [address] [place] [id number] 0 Phone: () - 06/06 [facility] [place] See focused factory manager d 08/09 CBC w/ auto diff WBC K/uL 3.0 8.9 3.5 FINAL Oziel Tolbert a [facility] - [place], [address] [place] [id number] 0 Phone: () - 08/09 CBC w/ auto diff HGB g/dL 11.3 15.2 11.7 FINAL Oziel Tolbert a [facility] - [place], [address] [place] [id number] 0 Phone: () - 08/09 CBC w/ auto diff PLT K/uL 113.0 364.0 196 FINAL Oziel angelo [facility] - [place], [address] [place] [id number] 0 Phone: () - 08/09 CBC w/ auto diff Dave # (ANC) K/uL 1.6 6.6 1.9 FINAL Oziel angelo [facility] - [place], [address] [place] [id number] 0 Phone: () - 08/09 CBC w/ auto diff Dave % % 43.0 74.0 52.2 FINAL Oziel angelo [facility] - [place], [address] [place] [id number] 0 Phone: () - 08/09 CBC w/ auto diff IG % % 0.0 0.5 0.3 FINAL Oziel Tolbert a [facility] - [place], [address] [place] [id number] 0 Phone: () - 08/09 CBC w/ auto diff IG # K/uL 0.0 0.03 0.01 FINAL Oziel Tilleyot a [facility] - [place], [address] [place] [id number] 0 Phone: () - 08/09 CBC w/ auto diff LY % % 14.0 41.0 35.0 FINAL Oziel Tolbert a [facility] - [place], [address] [place] [id number] 0 Phone: () - 08/09 CBC w/ auto diff MO % % 6.0 15.0 9.6 FINAL Oziel Tilleyot a [facility] - [place], [address] [place] [id number] 0 Phone: () - 08/09 CBC w/ auto diff EO % % 0.0 7.0 2.3 FINAL Oziel Tolbert a [facility] - [place], [address] [place] [id number] 0 Phone: () - 08/09 CBC w/ auto diff BA % % 0.0 2.0 0.6 FINAL Oziel angelo On[facility] - [place], [address] [place] [id number] 0 Phone: () - 08/09 CBC w/ auto diff LY # K/uL 0.4 3.6 1.2 FINAL Oziel angelo On[facility] - [place], [address] [place] [id number] 0 Phone: () - 08/09 CBC w/ auto diff MO # K/uL 0.2 1.3 0.3 FINAL Oziel Tolbert a [facility] - [place], [address] [place] [id number] 0 Phone: () - 08/09 CBC w/ auto diff EO # K/uL 0.0 0.6 0.1 FINAL Oziel angelo [facility] - [place], [address] [place] [id number] 0 Phone: () - 08/09 CBC w/ auto diff BA # K/uL 0.0 0.2 0.0 FINAL Oziel Tilleyot a [facility] - [place], [address] [place] [id number] 0 Phone: () - 08/09 CBC w/ auto diff NRBC % #/100W BC 0.0 0.2 0.0 FINAL Oziel Tilleyot a [facility] - [place], [address] [place] [id number] 0 Phone: () - 08/09 CBC w/ auto diff RBC M/uL 3.9 5.1 3.51 Low FINAL Oziel Tilleyot a [facility] - [place], [address] [place] [id number] 0 Phone: () - 08/09 CBC w/ auto diff HCT % 35.0 48.0 35.6 FINAL Oziel Tilley[facility] - [place], [address] [place] [id number] 0 Phone: () - 08/09 CBC w/ auto diff MCV fL 80.0 104.0 101.4 FINAL Oziel Tilleyot a [facility] - [place], [address] [place] [id number] 0 Phone: () - 08/09 CBC w/ auto diff MCH pg 26.0 35.0 33.3 FINAL Oziel Tilley[facility] a [facility] - [place], [address] [place] [id number] 0 Phone: () - 08/09 CBC w/ auto diff MCHC g/dL 30.0 35.0 32.9 FINAL Oziel Tilley[facility] a [facility] - [place], [address] [place] [id number] 0 Phone: () - 08/09 CBC w/ auto diff MPV fL 9.5 13.4 9.3 Low FINAL Oziel Tilleyot a [facility] - [place], [address] [place] [id number] 0 Phone: () - 08/09 CBC w/ auto diff RDW % 11.4 16.1 13.20 FINAL Oziel Tilleyot a [facility] - [place], [address] [facility] [place] [id number] 0 Phone: 08/09 CMP Album in g/dL 3.5 5.0 4.1 FINAL zOiel Box * [facility], [address] [facility] [id number] 0 08/09 CMP Alkal ine phosp hatas e U/L 36.0 125.0 66 FINAL Oziel Box * [facility], [address] [facility] [id number] 0 08/09 CMP ALT/S GPT U/L 0.0 34.0 6 FINAL Oziel Box * [facility], [address] [facility] [id number] 0 08/09 CMP AST/S GOT U/L 14.0 36.0 28 FINAL Oziel Box * [facility] [facility], [address] [facility] [id number] 0 08/09 CMP BUN mg/dL 7.0 17.0 17.0 FINAL Oziel Box * [facility], [address] [facility] [id number] 0 08/09 CMP Calci um mg/dL 8.4 10.2 9.4 FINAL Oziel Box * [place] [facility], [address] [facility] [id number] 0 08/09 CMP Chlor vipin mmol/L 96.0 107.0 106 FINAL Oziel Isauro * [place] [facility], [address] [facility] [id number] 0 08/09 CMP CO2 mmol/L 22.0 30.0 [...] hour stability window. FINAL Oziel Tilleyot a [facility], [address] [id number] 0 08/09 CMP Creat inine mg/dL 0.66 1.25 0.70 FINAL Oziel Tilleyot a [facility], [address] [id number] 0 08/09 CMP GFR estim ate ml/min /1.73m ^2 90.4 GFR is calculate d using the CKD-EPI equation. FINAL [facility], [address] [id number] 0 08/09 CMP Gluco se mg/dL 74.0 100.0 87 FINAL Oziel Tilleyot a [facility], [address] [id number] 0 08/09 CMP Potas sium mmol/L 3.5 5.1 4.2 FINAL Oziel Tilleyot a [facility], [address] [id number] 0 08/09 CMP Sodiu m mmol/L 137.0 145.0 139 FINAL Oziel Tilleyot a [facility], [address] [id number] 0 08/09 CMP Bilir ubin, total mg/dL 0.2 1.3 0.3 FINAL Oziel Tilleyot a [facility], [address] [id number] 0 08/09 CMP Total prote in g/dL 6.3 8.2 6.7 FINAL Oziel Box * [place] [facility] [place], [address] [facility] [id number] 0 08/09 TSH w/ refle x to free T4 TSHR- v mIU/ml 0.47 4.68 0.74 FINAL Oziel Box * [place] [facility] [place], [address] [facility] [id number] 0 02/13 CBC w/ auto diff WBC K/uL 3.0 8.9 4.7 FINAL Oziel FREEMAN [facility] - [place], [address] [place] [id number] 0 02/13 CBC w/ auto diff HGB g/dL 11.3 15.2 10.4 Low FINAL Oziel FREEMAN [facility] - [place], [address] [place] [id number] 0 02/13 CBC w/ auto diff PLT K/uL 113.0 364.0 252 FINAL Oziel FREEMAN [facility] - [place], [address] [place] [id number] 0 02/13 CBC w/ auto diff Dave # (ANC) K/uL 1.6 6.6 2.4 FINAL Oziel FREEMAN [facility] - [place], [address] [place] [id number] 0 02/13 CBC w/ auto diff Dave % % 43.0 74.0 51.3 FINAL Oziel FREEMAN [facility] - [place], [address] [place] [id number] 0 02/13 CBC w/ auto diff IG % % 0.0 0.5 0.2 FINAL Oziel Box [place] [facility] - [place], [address] [place] [id number] 0 02/13 CBC w/ auto diff IG # K/uL 0.0 0.03 0.01 FINAL Oziel FREEMAN [facility] - [place], [address] [place] [id number] 0 02/13 CBC w/ auto diff LY % % 14.0 41.0 33.5 FINAL Oziel FREEMAN [facility] - [place], [address] [place] [id number] 0 02/13 CBC w/ auto diff MO % % 6.0 15.0 8.8 FINAL Oziel FREEMAN [facility] - [place], [address] [place] [id number] 0 02/13 CBC w/ auto diff EO % % 0.0 7.0 5.6 FINAL Oziel FREEMAN [facility] - [place], [address] [place] [id number] 0 02/13 CBC w/ auto diff BA % % 0.0 2.0 0.6 FINAL Oziel FREEMAN [facility] - [place], [address] [place] [id number] 0 02/13 CBC w/ auto diff LY # K/uL 0.4 3.6 1.6 FINAL Oziel FREEMAN [facility] - [place], [address] [place] [id number] 0 02/13 CBC w/ auto diff MO # K/uL 0.2 1.3 0.4 FINAL Oziel FREEMAN [facility] - [place], [address] [place] [id number] 0 02/13 CBC w/ auto diff EO # K/uL 0.0 0.6 0.3 FINAL Oziel FREEMAN [facility] - [place], [address] [place] [id number] 0 02/13 CBC w/ auto diff BA # K/uL 0.0 0.2 0.0 FINAL Oziel FREEMAN [facility] - [place], [address] [place] [id number] 0 02/13 CBC w/ auto diff NRBC % #/100W BC 0.0 0.2 0.0 FINAL Oziel FREEMAN [facility] - [place], [address] [place] [id number] 0 02/13 CBC w/ auto diff RBC M/uL 3.9 5.1 3.24 Low FINAL Oziel FREEMAN [facility] - [place], [address] [place] [id number] 0 02/13 CBC w/ auto diff HCT % 35.0 48.0 32.3 Low FINAL Oziel FREEMAN [facility] - [place], [address] [place] [id number] 0 02/13 CBC w/ auto diff MCV fL 80.0 104.0 99.7 FINAL Oziel FREEMAN [facility] - [place], [address] [place] [id number] 0 02/13 CBC w/ auto diff MCH pg 26.0 35.0 32.1 FINAL Oziel FREEMAN [facility] - [place], [address] [place] [id number] 0 02/13 CBC w/ auto diff MCHC g/dL 30.0 35.0 32.2 FINAL Oziel FREEMAN [facility] - [place], [address] [place] [id number] 0 02/13 CBC w/ auto diff MPV fL 9.5 13.4 9.1 Low FINAL Oziel FREEMAN [facility] - [place], [address] [place] [id number] 0 02/13 CBC w/ auto diff RDW % 11.4 16.1 13.70 FINAL Oziel FREEMAN [facility] - [place], [address] [place] [id number] 0 02/13 CMP Album in g/dL 3.5 5.0 3.5 FINAL Oziel Box * [place] [facility], [address] [facility] [id number] 0 02/13 CMP Alkal ine phosp hatas e U/L 36.0 125.0 75 FINAL Oziel Box * [place] [facility], [address] [facility] [id number] 0 02/13 CMP ALT/S GPT U/L 0.0 34.0 <4 Repeate d FINAL Oziel Box * [place] [facility], [address] [facility] [id number] 0 02/13 CMP AST/S GOT U/L 14.0 36.0 17 FINAL Oziel Box * [place] [facility], [address] [facility] [id number] 0 02/13 CMP BUN mg/dL 7.0 17.0 18.0 High FINAL Oziel Box * [place] [facility], [address] [facility] [id number] 0 02/13 CMP Calci um mg/dL 8.4 10.2 9.2 FINAL Oziel Card [place] [facility], [address] [facility] [id number] 0 02/13 CMP Chlor vipin mmol/L 96.0 107.0 109 High FINAL Oziel Card [place] [facility], [address] [facility] [id number] 0 02/13 CMP CO2 mmol/L 22.0 30.0 [...] 96 hour stability window. FINAL Oziel Card [facility], [address] [facility] [id number] 0 02/13 CMP Creat inine mg/dL 0.66 1.25 0.80 FINAL Oziel Card [place] [facility], [address] [facility] [id number] 0 02/13 CMP GFR estim ate ml/min /1.73m ^2 76.8 GFR is calculate d using the CKD-EPI equation. FINAL Oziel Card [facility], [address] [facility] [id number] 0 02/13 CMP Gluco se mg/dL 74.0 100.0 84 FINAL Oziel Card [place] [facility], [address] [facility] [id number] 0 02/13 CMP Potas sium mmol/L 3.5 5.1 4.4 FINAL Oziel Card [place] [facility], [address] [facility] [id number] 0 02/13 CMP Sodiu m mmol/L 137.0 145.0 137 FINAL Oziel Box * [place] [facility] [place], [address] [facility] [id number] 0 02/13 CMP Bilir ubin, total mg/dL 0.2 1.3 0.5 FINAL Oziel Box * [place] [facility] [place], [address] [facility] [id number] 0 02/13 CMP Total prote in g/dL 6.3 8.2 6.2 Low FINAL Oziel Box * [place] [facility] [place], [address] [facility] [id number] 0 04/03 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 08/14 CMP Album in g/dL 3.5 5.0 3.7 FINAL Oziel Box * [facility] , [address] [facility] [id number] 0 08/14 CMP Alkal ine phosp hatas e U/L 36.0 125.0 68 FINAL Oziel Box * [facility] , [address] [facility] [id number] 0 08/14 CMP ALT/S GPT U/L 0.0 34.0 10 FINAL Oziel Box * [place] [facility] , [address] [facility] [id number] 0 08/14 CMP AST/S GOT U/L 14.0 36.0 28 FINAL Oziel Box * [facility] , [address] [facility] [id number] 0 08/14 CMP BUN mg/dL 7.0 17.0 25.0 High FINAL Oziel Box * [facility] , [address] [facility] [id number] 0 08/14 CMP Calci um mg/dL 8.4 10.2 8.7 FINAL Oziel Box * [facility] , [address] [facility] [place] [place] [address] [facility] [id number] 0 08/14 CMP Chlor vipin mmol/L 96.0 107.0 109 High FINAL Oziel Box * [facility] , [address] [facility] [place] [place] [address] [facility] [id number] 0 08/14 CMP CO2 mmol/L 22.0 30.0 [...] stability window. FINAL Oziel Box * [facility] , [address] [facility] [place] [place] [address] [facility] [id number] 0 08/14 CMP Creat inine mg/dL 0.66 1.25 0.90 FINAL Oziel Box * [facility] , [address] [id number] 0 08/14 CMP GFR estim ate ml/min /1.73m ^2 66.5 GFR is calculate d using the CKD-EPI equation. FINAL Oziel Box * [facility] , [address] [id number] 0 08/14 CMP Gluco se mg/dL 74.0 100.0 95 FINAL Oziel Box * [facility] , [address] [id number] 0 08/14 CMP Potas sium mmol/L 3.5 5.1 4.5 FINAL Oziel Box * [facility] , [address] [facility] [place] [place] [address] [id number] 0 08/14 CMP Sodiu m mmol/L 137.0 145.0 137 FINAL Oziel Box * [facility] , [address] [facility] [id number] 0 08/14 CMP Bilir ubin, total mg/dL 0.2 1.3 0.8 FINAL Oziel Box * [facility] , [address] [facility] [id number] 0 08/14 CMP Total prote in g/dL 6.3 8.2 6.5 FINAL Oziel Box * [facility] , [address] [facility] [id number] 0 08/14 CBC w/ auto diff WBC K/uL 3.0 8.9 4.7 FINAL Oziel Box [place] [facility] , [address] [place] [facility] [id number] 0 08/14 CBC w/ auto diff HGB g/dL 11.3 15.2 11.5 FINAL Oziel Box [place] [facility] , [address] [place] [facility] [id number] 0 08/14 CBC w/ auto diff PLT K/uL 113.0 364.0 211 FINAL Oziel Box [place] [facility] , [address] [place] [facility] [id number] 0 08/14 CBC w/ auto diff Dave # (ANC) K/uL 1.6 6.6 2.9 FINAL Oziel Box [place] [facility] , [address] [place] [facility] [id number] 0 08/14 CBC w/ auto diff Dave % % 43.0 74.0 61.3 FINAL Oziel Box [place] [facility] , [address] [place] [id number] 0 08/14 CBC w/ auto diff IG % % 0.0 0.5 0.2 FINAL Oziel Box [place] [facility] , [address] [place] [id number] 0 08/14 CBC w/ auto diff IG # K/uL 0.0 0.03 0.01 FINAL Oziel Box [place] [facility] , [address] [place] [id number] 0 08/14 CBC w/ auto diff LY % % 14.0 41.0 25.6 FINAL Oziel Box [place] [facility] , [address] [place] [id number] 0 08/14 CBC w/ auto diff MO % % 6.0 15.0 8.7 FINAL Oziel Box [place] [facility] , [address] [place] [id number] 0 08/14 CBC w/ auto diff EO % % 0.0 7.0 3.8 FINAL Oziel Box [place] [facility] , [address] [place] [id number] 0 08/14 CBC w/ auto diff BA % % 0.0 2.0 0.4 FINAL Oziel Box [place] [facility] , [address] [place] [id number] 0 08/14 CBC w/ auto diff LY # K/uL 0.4 3.6 1.2 FINAL Oziel Box [place] [facility] , [address] [place] [id number] 0 08/14 CBC w/ auto diff MO # K/uL 0.2 1.3 0.4 FINAL Oziel Box [place] [facility] , [address] [place] [id number] 0 08/14 CBC w/ auto diff EO # K/uL 0.0 0.6 0.2 FINAL Oziel Box [place] [facility] , [address] [place] [id number] 0 08/14 CBC w/ auto diff BA # K/uL 0.0 0.2 0.0 FINAL Oziel Box [place] [facility] , [address] [place] [id number] 0 08/14 CBC w/ auto diff NRBC % #/100W BC 0.0 0.2 0.0 FINAL Oziel Box [place] [facility] , [address] [place] [id number] 0 08/14 CBC w/ auto diff RBC M/uL 3.9 5.1 3.60 Low FINAL Oziel Box [place] [facility] , [address] [place] [id number] 0 08/14 CBC w/ auto diff HCT % 35.0 48.0 35.2 FINAL Oziel Box [place] [facility] , [address] [place] [id number] 0 08/14 CBC w/ auto diff MCV fL 80.0 104.0 97.8 FINAL Oziel Box [place] [facility] , [address] [place] [id number] 0 08/14 CBC w/ auto diff MCH pg 26.0 35.0 31.9 FINAL Oziel Box [place] [facility] , [address] [place] [id number] 0 08/14 CBC w/ auto diff MCHC g/dL 30.0 35.0 32.7 FINAL [facility] , [address] [facility] [facility] [address] [facility] [id number] 0 08/14 CBC w/ auto diff MPV fL 9.5 13.4 9.0 Low FINAL Oziel Ryan [facility] , [address] [facility] [id number] 0 08/14 CBC w/ auto diff RDW % 11.4 16.1 13.60 FINAL [facility] , [address] [facility] [id number] Medications Date Name Route Dose Frequency Instructions Start Date End Date Status Vitamin B21-Itiiz Acid Oral 500 mcg-400 mcg daily active [...] concentration must be 0.3-1.2 mg/mL.Administ er using [id number] ining equipment and through an in-line 0.22 [...]
== END 2024-08-27 14:35 | disposition home or self-care (01) ==
LOC: ED 14:29
PROVIDERS: Emergency Provider Emergency Medicine Emergency Medical Services; PCP Internal Medicine
DX: N39.0 Urinary tract infection, site not specified (principal)
CPT/HCPCS: 81001; 81003; 87086; 99282; 99283; 99284

== ENCOUNTER 2024-09-14 12:35 | Outpatient (CLI) | payer MEDICARE, SELFPAY | END 2024-09-14 12:36 | disposition home or self-care (01) | LOC: NFLDREF 09-19 01:36 | PROVIDERS: PCP Internal Medicine; Referring Provider Internal Medicine; Visit Provider Nurse Practitioner Family | DX: R30.0 Dysuria (principal); R35.0 Frequency of micturition; R50.9 Fever, unspecified | CPT/HCPCS: 87086 ==

== ENCOUNTER 2024-09-18 08:36 | Emergency (ER) | payer MEDICARE, SELFPAY ==
[2024-09-18 08:39] VITALS: BP 138/75; PULSE 57; RESP 18; TEMP 35.8; O2SAT 100; BMI 33.3
--- OUTSIDE RECORDS SUMMARY | 2024-09-18 08:40 | XMS_ITS | Referral Summary ---
Author Organization [facility] Address [address] [place] [id number] Care Team Providers Care Imaging Center Manager Name Role Phone Annie Worthington Primary Care Provider Feroz Arthur MD Unavailable [phone] Encounters Date Type Department Care Team Description 07/26/2024 2:15 PM CDT Office Visit [address] [place] [phone] Feroz Arthur MD Parkinson's disease without dyskinesia or fluctuating manifestations (HCC) (Primary Dx); Restless legs syndrome; Abnormality of gait and mobility 07/11/2024 Order-Scan [address] [place] [address] [phone] Renetta Parsons APRN, [employer] 07/07/2024 Order-Scan [address] [place] [phone] Renetta Parsons APRN, [employer] from Last 3 Months Allergies Active Allergy [...] period is included. us Renetta Parsons APRN, [employer] MICROBIOLOGY ORDERA BLE Final Result from Last 3 Months Insurance [facility] MEDICARE ADVANTAGE Care Teams Imaging Center Manager Relationship Specialty Start Date End Date Annie Worthington [address] [place] [address] PCP - General 09/03/22 Feroz Arthur MD [address] [facility] [address] [place] [address] Neurology 09/03/22
--- OUTSIDE RECORDS SUMMARY | 2024-09-18 08:40 | XMS_ITS | CCD ---
Author Name Interface, [id number] lity Address [address] [address] [facility] Address [address] [facility] [address] [address] Care Team Providers Care Ict Managers Name Role Phone Oziel Box MD Unavailable Unavailable Allergies and Adverse Reactions Medication/Group Name Reaction Severity Date amoxicillin 09/04/2024 Penicillins 09/04/2024 ciprofloxacin Hives 09/04/2024 nitrofurantoin Hives 09/04/2024 Care Plan Date Type Value 02/28/2025 APPOINTMENT OUTSIDE TEST 5 M IN 09/04/2024 APPOINTMENT OV 20 MIN 08/21/2024 APPOINTMENT OUTSIDE TEST 5 M IN 08/14/2024 APPOINTMENT LAB 15 MIN 08/14/2024 APPOINTMENT PORT DRAW 15 MIN 05/01/2024 APPOINTMENT OUTSIDE TEST 5 M IN 02/18/2024 APPOINTMENT OV 20 MIN 02/14/2024 APPOINTMENT OUTSIDE TEST 5 M IN 02/14/2024 APPOINTMENT PORT DRAW 15 MIN 01/20/2024 LABORDER X-ray femur, rig ht 02/14/2024 LABORDER CBC w/ auto diff 02/14/2024 LABORDER CMP 02/14/[address] chest/abdomen /pelvis w/ IV contrast 02/14/2024 LABORDER MRI brain w/ & w /o contrast 03/23/2024 LABORDER CBC w/ auto diff 05/01/2024 LABORDER Port removal 07/26/[address] chest/abdomen /pelvis w/ IV contrast 08/14/2024 LABORDER CMP 08/14/2024 LABORDER CBC w/ auto diff 08/18/2024 LABORDER MRI brain w/ & w /o contrast 09/05/2024 LABORDER Port removal 03/06/2025 LABORDER MRI brain w/ & w /o contrast 03/06/2025 LABORDER CMP 03/06/[address] chest/abdomen /pelvis w/ IV contrast 03/06/2025 LABORDER CBC w/ auto diff Reason for Visit OV 20 MIN Encounters Date Name 02/28/2025 OUTSIDE TEST 5 MIN 09/04/2024 Brain metastasis 09/04/2024 Non-small cell lung cancer (disorder) 08/21/2024 OUTSIDE TEST 5 MIN Functional Status Date Name Score 10/24/2021 ECOG performance status - grade 0 0 01/16/2021 ECOG performance status - grade 0 0 01/30/2021 ECOG performance status - grade 0 0 07/02/2021 Karnofsky performance status 100 01/02/2021 ECOG performance status - grade 0 0 04/14/2021 ECOG performance status - grade 0 0 09/26/2021 ECOG performance status - grade 0 0 Immunizations Date Name Route Dose Instructions Refusal Reason Stat us Flu vaccine - Adult Patient declined/rejected Not Administered Diagnostic Results Date Type Test Units Lower Limit Upper Limit Result Flag Comments Status Ordered By Specimen Source Lab Address 04/03 [facility] [place] 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 d 08/14 CBC w/ auto diff Dave # (ANC) K/uL 1.6 6.6 2.9 [facility]AL [facility] [address] [place] [address] d [address] [place] [facility] [id number] 0 08/14 CBC w/ auto diff IG % % 0.0 0.5 0.2 FINAL [facility] , [address] [facility] [address] [place] [id number] 0 08/14 CBC w/ auto diff MO # K/uL 0.2 1.3 0.4 FINAL Oziel Box [facility] , [address] [facility] [facility] [address] [place] [facility] [id number] 0 08/14 CBC w/ auto diff MCV fL 80.0 104.0 97.8 FINAL [facility] , [facility] [address] [place] [id number] 0 08/14 CBC w/ auto diff IG # K/uL 0.0 0.03 0.01 FINAL Oziel Box [place] [facility] [place] [facility] , [address] [place] [id number] 0 08/14 CBC w/ auto diff MO % % 6.0 15.0 8.7 FINAL Oziel Box [place] [facility] [place] [facility] , [address] [place] [id number] 0 08/14 CBC w/ auto diff EO # K/uL 0.0 0.6 0.2 FINAL Oziel Box [place] [facility] [place] [facility] , [address] [place] [id number] 0 08/14 CBC w/ auto diff EO % % 0.0 7.0 3.8 FINAL Oziel Box [place] [facility] [place] [facility] , [address] [place] [id number] 0 08/14 CBC w/ auto diff RBC M/uL 3.9 5.1 3.60 Low FINAL Oziel Box [place] [facility] [place] [facility] , [address] [place] [id number] 0 08/14 CBC w/ auto diff MPV fL 9.5 13.4 9.0 Low FINAL Oziel Box [place] [facility] [place] [facility] , [address] [place] [id number] 0 08/14 CBC w/ auto diff WBC K/uL 3.0 8.9 4.7 FINAL Oziel Box [place] [facility] [place] [facility] , [address] [place] [id number] 0 08/14 CBC w/ auto diff PLT K/uL 113.0 364.0 211 FINAL Ozile Box [place] [facility] [place] [facility] , [address] [place] [id number] 0 08/14 CBC w/ auto diff BA % % 0.0 2.0 0.4 FINAL Oziel Box [place] [facility] [place] [facility] , [address] [place] [id number] 0 08/14 CBC w/ auto diff BA # K/uL 0.0 0.2 0.0 FINAL Oziel Box [place] [facility] [place] [facility] , [address] [place] [id number] 0 08/14 CBC w/ auto diff HGB g/dL 11.3 15.2 11.5 FINAL Oziel Box [place] [facility] [place] [facility] , [address] [place] [id number] 0 08/14 CBC w/ auto diff RDW % 11.4 16.1 13.60 FINAL Oziel Box [place] [facility] [place] [facility] , [address] [place] [id number] 0 08/14 CBC w/ auto diff LY % % 14.0 41.0 25.6 FINAL Oziel Box [place] [facility] [place] [facility] , [address] [place] [id number] 0 08/14 CBC w/ auto diff LY # K/uL 0.4 3.6 1.2 FINAL Oziel Box [place] [facility] [place] [facility] , [address] [place] [id number] 0 08/14 CBC w/ auto diff MCH pg 26.0 35.0 31.9 FINAL Oziel Box [place] [facility] [place] [facility] , [address] [place] [id number] 0 08/14 CBC w/ auto diff MCHC g/dL 30.0 35.0 32.7 FINAL Oziel Box [facility] , [address] [facility] [address] [facility] [id number] 0 08/14 CBC w/ auto diff NRBC % #/100W BC 0.0 0.2 0.0 FINAL Oziel Box [facility] , [address] [facility] [id number] 0 08/14 CBC w/ auto diff HCT % 35.0 48.0 35.2 FINAL Oziel Box [facility] , [address] [facility] [address] [facility] [id number] 0 08/14 CBC w/ auto diff Dave % % 43.0 74.0 61.3 FINAL Oziel Box [facility] , [address] [facility] [id number] 0 08/14 CMP Alkal ine phosp hatas e U/L 36.0 125.0 68 FINAL Oizel Box * [facility] , [address] [id number] 0 08/14 CMP ALT/S GPT U/L 0.0 34.0 10 FINAL Oziel Box * [facility] , [address] [facility] [address] [facility] [id number] 0 08/14 CMP Calci um mg/dL 8.4 10.2 8.7 FINAL Oziel Box * [facility] , [address] [facility] [address] [id number] 0 08/14 CMP GFR estim ate ml/min /1.73m ^2 66.5 GFR is calculate d using the CKD-EPI equation. FINAL Oziel Box * [facility] , [address] [facility] [address] [facility] [id number] 0 08/14 CMP CO2 mmol/L 22.0 30.0 [...] hour stability window. FINAL Oziel Box * [facility] , [facility] [facility] [address] [facility] [id number] 0 08/14 CMP Gluco se mg/dL 74.0 100.0 95 FINAL Oziel Box * [facility] , [facility] [address] [id number] 0 08/14 CMP Chlor vipin mmol/L 96.0 107.0 109 High FINAL Oziel Box * [facility] , [address] [facility] [address] [id number] 0 08/14 CMP Total prote in g/dL 6.3 8.2 6.5 FINAL Oziel Box * [facility] , [address] [facility] [address] [id number] 0 08/14 CMP BUN mg/dL 7.0 17.0 25.0 High FINAL Oziel Box * [facility] , [address] [facility] [address] [id number] 0 08/14 CMP Creat inine mg/dL 0.66 1.25 0.90 FINAL Oziel Box * [facility] , [address] [facility] [address] [id number] 0 08/14 CMP AST/S GOT U/L 14.0 36.0 28 FINAL Oziel Box * [facility] , [facility] [address] [id number] 0 08/14 CMP Album in g/dL 3.5 5.0 3.7 FINAL Oziel Box * [facility] , [address] [facility] [address] [id number] 0 08/14 CMP Bilir ubin, total mg/dL 0.2 1.3 0.8 FINAL Oziel Box * [facility] , [facility] [address] [id number] 0 08/14 CMP Sodiu m mmol/L 137.0 145.0 137 FINAL Oziel Box * [facility] , [facility] [address] [id number] 0 08/14 CMP Potas sium mmol/L 3.5 5.1 4.5 FINAL Oziel Box * [facility] , [facility] [address] [id number] Medications Date Name Route Dose Frequency Instructions Start Date End Date Status Cephalexin Oral Star ting for 10 days for UTI inactive Zinc Oral po 1.0 daily inactiv e Sennosides Oral orally 1.0 tablet daily inactive Gabapentin Oral QD a ctive Vitamin V70-Olmpx Acid Oral 500 mcg-400 mcg daily active Docusate Sodium Oral QD inactive Baclofen Oral daily act charles Calcium Carbonate Oral QD active Clindamycin Oral BID inactive Multivitamins Oral Tablet daily inactive Prednisone Oral daily 40mg daily stopped Magnesium Oxide Oral daily stopped Probiotics Oral daily i nactive Ascorbic Acid Oral 1.0 daily inactive Cholecalciferol Oral QD active Omeprazole Oral Delayed Release Capsule po daily stopped Carbidopa-Levodop a Oral 25 mg-100 mg PO 1.5 tablet TID active Cholecalciferol Oral 50.0 christos;ly inactive Duloxetine Oral Delayed Release PO 1.0 [...] prn st opped Diphenhydramine Oral PRN inactive Escitalopram Oral daily active 2023 levothyroxine sodium 0.075 MG Oral Tablet 024 active 2013 Ibuprofen Oral Oral 800.0 mg 014 active Problems Diagnosis Status Date of Diagnosis Resolution Date Non-small cell lung cancer (disorder) Active Lung [...] her right leg. Ordered 02/14/[address] chest/abdomen/pelvis w/ IV contrast oligometastatic lung cancer treated with chemoradiation, compare to PET from 07/[address] from 05/2023 Ordered 02/14/2024 Physician Order MRI brain w/ & w /o contrast h/o brain metastasis due to lung cancer, compare to Brain MRI from 07/2023 Ordered 02/18/2024 Physician Order RTC MD Ordered 05/01/2024 Physician Order Port removal Ordered 07/26/[address] chest/abdomen/pelvis w/ IV contrast metastatic lung cancer surveillance currently GI Ordered 08/18/2024 Physician Order MRI brain w/ & w /o contrast metastatic lung cancer, CLINICAL REGISTERED NURSE surveillance Ordered 08/18/2024 Physician Order RTC Ordered 09/05/2024 Physician Order Port removal Ordered 03/06/2025 Physician Order RTC MD Ordered 03/06/[address] chest/abdomen/pelvis w/ IV contrast h/o oligometastatic lung cancer, now GI. Needs continued surveillance Ordered 03/06/2025 Physician Order MRI brain w/ & w /o contrast h/o oligometastatic lung cancer, now GI. Needs continued surveillance Ordered Social History Date Name Value 02/18/2024 Smoking Status Former smoker 09/05/2024 Sex Female Visits Date Type Value 02/28/2025 OUTSIDE TEST 5 MIN Vital Signs Date Type Value 02/18/2024 Body Temperature 96.60 02/18/2024 Heart Beat 81.00 02/18/2024 BSA 1.95 02/18/2024 BMI 32.28 02/18/2024 Height 65.00 02/18/2024 Weight 194.00 02/18/2024 Pain Scale 0.00 02/18/2024 Intravascular Systolic 134 02/18/2024 Intravascular Diastolic 82 02/18/2024 Oxygen Saturation 98.00 02/18/2024 Respiratory Rate 16.00 09/04/2024 Body Temperature 98.70 09/04/2024 BSA 2.06 09/04/2024 BMI 36.56 09/04/2024 Height 65.00 09/04/2024 Intravascular Systolic 132 09/04/2024 Intravascular Diastolic 70 09/04/2024 Pain Scale 0.00 09/04/2024 Oxygen Saturation 98.00 09/04/2024 Respiratory Rate 16.00 09/04/2024 Heart Beat 64.00 09/04/2024 Weight 219.70 Notes Section * Med Onc Follow-up Note Patient Name: MARISELA HANNAH Date Of : 1950 Today's Provider:?Oziel Box MD Date of Service:?09/04/2024 Attending Physician:?Oziel Box (Hematology/Oncology) Referring Provider: ? HEMATOLOGY/ MEDICAL ONCOLOGY FOLLOW UP VISIT Reason for Visit Surveillance visit for oligometastatic non-small cell lung cancer Assessment 1.? Non-small cell lung cancer - Biopsy-proven hilar lymph node metastases and a solitary brain metastasis not causing any neurologic symptoms. -?Her solitary brain metastasis was treated with stereotactic radiation therapy, completed November 29, 2020. - NGS testing showed no targetable mutation.? PD-L1 expression 20% -Started chemoradiation with weekly carboplatin/paclitaxel on December 23. Completed January 31, 2021.? -Started adjuvant durvalumab in early February 2021, completed January 2022. -PET/CT negative for recurrent disease - Brain MRI negative - 3 1/2 years out from completing chemoradiation 2.? Solitary brain metastasis?treated with stereotactic radiation therapy, completed November 29, 2020 -Brain MR showed no recurrent disease 3. Tobacco abuse - Quit in 09/2020 4. Dysphagia - Started after completing radiation therapy - likely due to esophagitis/esophageal stricture caused by radiation - (09/11/21) seen by [facility]?and underwent?upper endoscopy with dilatation, much improvement witheating and drinking. ?She was also found to have gastritis, for which she was started on a PPI 5. Hypothyroidism - Could be immunotherapy induced - On Synthroid - Managed by PCP 6. Parkinson's disease - Now on Sinemet Plan 1.? Continue with surveillance from lung cancer standpoint 2.? Return to clinic in 6 months for follow-up 3.? Brain MRI prior to return 4.? CT CAP prior to return 5.? Continue Synthroid for hypothyroidism.? Defer to PCP for further management. 6.? Continue to follow up with neurology for Parkinson's disease Advanced Care Planning Not discussed at this visit. Pain Scale on Today's Visit Not recorded on today's visit Pain Plan on Today's Visit No pain plan indicated for today's visit Smoking Status Smoking Tobacco : Former smoker; Smokeless Tobacco : Never used smokeless tobacco; Vaping : Never vaped Depression Screening Tool Status Was screened; Outcome positive: No; Screening Date: 09/04/2024; Screening Tool: PRIME MD-PHQ2; Total depression score: 1 History of Present Illness This is a [...] SUV max of 13.2. There was also a?hypermetabolic station 11 L lymph node and a hypermetabolic subaortic station 5 lymph node (later read as a station 12 L lymph node), concerning for metastatic disease.?There was also an FDG avid nodule in the right parotid gland, inthe setting of parotitis, likely representing a benign [...] showed rare atypical cells, likely from poor sampling.? Station 12 LN was not sampled. Met [...] primary tumor and resolution of hilar adenopathy. ?No new metastatic disease. ?Brain metastasis has responded very well to stereotactic radiation therapy. ?No new brain metastasis. Repeat CT CAP 07/2021 showed mild enlargement of the primary tumor as well as 2 new opacities aroundthe primary tumor--radiation pneumonitis vs disease progression. ?Brain MRI negative.? Decided to observe and obtain short interval repeat CT. CT CAP 08/2021 continues to show evolving radiographic changes in the left lung, which could still be evolving radiation changes, but cannot rule out recurrent disease. PET/CT 12/2021 showed no new findings.? Brain MRI negative PET/CT 04/2022 negative.? Brain MRI showed no new findings.? Interval History The patient returns to clinic today for follow-up visit.? She does not report any?persistent new symptoms. ?Over the past week, she has been?feeling slightly more short of breath, associated with a dry cough.? No new neurologic symptoms.? Unfortunately, she still has her port in place. ?She tell me she did not pass her physical due to?mild hypertension Review of Systems Remaining 14 point comprehensive review of systems within normal limits. NCCN Distress Thermometer and Problem List were collected and documented in the patient chart.? Remarkable symptoms and concerns were discussed with the patient.? Any additional follow-up is indicated in the plan. Past Medical and Surgical History Unchanged Current Medications Medication List Name Date Vitamin D3 (Cholecalciferol Oral) 2023 Vitamin Q82-Zclsj Acid Oral 500 mcg-400 mcg 11/13/2022 Gabapentin Oral 02/18/2024 Calcium Carbonate Oral 02/18/2024 Ibuprofen Oral 02/18/2024 Lexapro (Escitalopram Oral) 09/04/2024 Levothyroxine 09/26/2023 Baclofen Oral 09/04/2024 Carbidopa-Levodopa Oral 25 mg-100 mg 03/2022 Allergies Penicillins, amoxicillin, ciprofloxacin and nitrofurantoin Family History Maternal grandparents with pancreatic cancer and colon cancer Social History Current smoker, trying to quit. Currently smoking half a pack a day Vital Signs Blood pressure: 132/70, Pulse: 64, Temperature: 98.7 F, Respirations: 16, O2 sat: 98%, Pain Scale: 0, Height: 65 in, Weight: 219.7 lb, BSA: 2.06, BMI: 36.56 kg/m2 Covid-19 vaccine (Pfizer) (12/18/2020), Elsewhere; Covid-19 vaccine (Pfizer) (10/09/2020), Elsewhere; Covid-19 vaccine (Pfizer) (04/14/2021), Elsewhere; Flu vaccine - Adult (02/18/2024), Patient [...] Physical Exam General: Awake, alert, and oriented. ? Skin: No rash noted Eyes: ? Sclera anicteric. ? Lymphatics: No palpable lymphadenopathy Lungs: Clear Genetics/Molecular/Biomarkers * Non-small cell lung cancer (disorder) ( Stage Date: Unknown, Stage IIIB (N2, M0) Histopathologic Type: Adenocarcinoma; ) Additional Labs, Imaging, and Other Studies Lab Results CBC Lab Results 08/14/2024 04/03/2024 02/14/2024 08/10/2023 06/07/1902/08/2023 CBC WBC x 10^3/uL 4.7 4.7 3.5 4.7 RBC x 10^6/uL 3.60 (L) 3.24 (L) 3.51 (L) 3.26 (L) NRBC % /100 wbc 0.0 0.0 0.0 0.0 HGB g/dL 11.5 10.4 (L) 11.7 11.0 (L) HCT % 35.2 32.3 (L) 35.6 32.9 (L) MCV fL 97.8 99.7 101.4 100.9 MCH pg 31.9 32.1 33.3 33.7 MCHC g/dL 32.7 32.2 32.9 33.4 RDW % 13.60 13.70 13.20 13.70 PLT x 10^3/uL 211 252 196 194 MPV fL 9.0 (L) 9.1 (L) 9.3 (L) 9.0 (L) Dave % 61.3 51.3 52.2 57.2 LY % 25.6 33.5 35.0 31.6 MO % 8.7 8.8 9.6 8.0 EO % 3.8 5.6 2.3 2.2 IG % 0.2 0.2 0.3 0.4 Dave # (ANC) x 10^3/uL 2.9 2.4 1.9 2.7 BA % 0.4 0.6 0.6 0.6 MO # x 10^3/uL 0.4 0.4 0.3 0.4 EO # x 10^3/uL 0.2 0.3 0.1 0.1 BA # x 10^3/uL 0.0 0.0 0.0 0.0 IG # x 10^3/uL 0.01 0.01 0.01 0.02 LY # x 10^3/uL 1.2 1.6 1.2 1.5 Chemistries Lab Results 08/14/2024 04/03/2024 02/14/2024 08/10/2023 06/07/19 24 02/08/2023 Chemistries Glucose mg/dL 95 84 87 84 BUN mg/dL 25.0 (H) 18.0 (H) 17.0 17.0 Creatinine mg/dL 0.90 0.80 0.70 0.86 Sodium mmol/L 137 137 139 141 Potassium mmol/L 4.5 4.4 4.2 4.5 Chloride mmol/L 109 (H) 109 (H) 106 109 CO2 mmol/L 24 26 24 25 Calcium mg/dL 8.7 9.2 9.4 8.8 Albumin g/dL 3.7 3.5 4.1 4.0 Total protein g/dL 6.5 6.2 (L) 6.7 6.1 Bilirubin, total mg/dL 0.8 0.5 0.3 0.3 Alkaline phosphatase U/L 68 75 66 83 AST/SGOT U/L 28 17 28 23 ALT/SGPT U/L 10 <4 Repeated 6 <7 GFR estimate mL/min/1.73m2 66.5 76.8 90.4 70.9 ? Surveys/Consents/Other Discussions Oziel Box MD CC: FAX Annie Santana MD Electronically signed by Oziel Box MD 09/05/2024 09:15 CDT * Med Onc Follow-up Note (Amended) Patient Name: MARISELA HANNAH Date Of : 1950 Today's Provider:?Oziel Box MD Date of Service:?02/18/2024 Attending Physician:?Oziel Box (Hematology/Oncology) Referring Provider: ? HEMATOLOGY/ MEDICAL ONCOLOGY FOLLOW UP VISIT Reason for Visit Surveillance visit for oligometastatic non-small cell lung cancer Assessment 1.? Non-small cell lung cancer - Biopsy-proven hilar lymph node metastases and a solitary brain metastasis not causing any neurologic symptoms. -?Her solitary brain metastasis was treated with stereotactic radiation therapy, completed November 29, 2020. - NGS testing showed no targetable mutation.? PD-L1 expression 20% -Started chemoradiation with weekly carboplatin/paclitaxel on December 23. Completed January 31, 2021.? -Started adjuvant durvalumab in early February 2021, completed January 2022. -CT scan from 01/2024 negative for recurrent disease - Brain MRI 01/2024 also negative - 3 years out from completing chemoradiation 2.? Solitary brain metastasis?treated with stereotactic radiation therapy, completed November 29, 2020 -Brain MRI 01/2024 showed no recurrent disease 3. Tobacco abuse - Quit in 09/2020 4. Dysphagia - Started after completing radiation therapy - likely due to esophagitis/esophageal stricture caused by radiation - (09/11/21) seen by [facility]?and underwent?upper endoscopy with dilatation, much improvement witheating and drinking. ?She was also found to have gastritis, for which she was started on a PPI 5. Hypothyroidism - Could be immunotherapy induced - On Synthroid 6. Parkinson's disease - Now on Sinemet 7.? Right lateral hip pain/right leg pain - Right femur X-ray negative - Tenderness over trochanteric bursa concerning for trochanteric bursitis 8.? Anemia - Incidentally noted - Hgb 10.4, unclear etiology Plan 1.? Continue with surveillance from lung cancer standpoint 2.? Return to clinic in 6 months for follow-up 3.? Brain MRI prior to return 4.? CT CAP prior to return 5.? Continue Synthroid for hypothyroidism.? Defer to PCP for further management. 6.? Continue to follow up with neurology for Parkinson's disease 7.?The patient's right hip pain and right leg pain are unrelated to?history of metastaticlung cancer.? She does have?trochanteric bursitis based on exam. ?Would defer to?PCP for management. ?May benefit from?steroid injection 8.? PORT removal 9.? Will ask her PCP to recheck CBC w/ diff in 1 mo.? If still anemic, would perform further workup [...] SUV max of 13.2. There was also a?hypermetabolic station 11 L lymph node and a hypermetabolic subaortic station 5 lymph node (later read as a station 12 L lymph node), concerning for metastatic disease.?There was also an FDG avid nodule in the right parotid gland, inthe setting of parotitis, likely representing a benign [...] showed rare atypical cells, likely from poor sampling.? Station 12 LN was not sampled. Met [...] primary tumor and resolution of hilar adenopathy. ?No new metastatic disease. ?Brain metastasis has responded very well to stereotactic radiation therapy. ?No new brain metastasis. Repeat CT CAP 07/2021 showed mild enlargement of the primary tumor as well as 2 new opacities aroundthe primary tumor--radiation pneumonitis vs disease progression. ?Brain MRI negative.? Decided to observe and obtain short interval repeat CT. CT CAP 08/2021 continues to show evolving radiographic changes in the left lung, which could still be evolving radiation changes, but cannot rule out recurrent disease. PET/CT 12/2021 showed no new findings.? Brain MRI negative PET/CT 04/2022 negative.? Brain MRI showed no new findings.? Interval History The patient returns to clinic today for a follow-up visit.? She has been experiencing?right lateral hip pain?as well as right leg pain. ?This has?made it more difficult for her to walk.? She has also been experiencing?more balance issues.? Energy level and appetite are relati vely stable. Review of Systems Remaining 14 point comprehensive review of systems within normal limits. NCCN Distress Thermometer and Problem List were collected and documented in the patient chart.? Remarkable symptoms and concerns were discussed with the patient.? Any additional follow-up is indicated in the plan. Past Medical and Surgical History Unremarkable except for recurrent parotitis Current Medications Medication List Name Date Ibuprofen Oral 02/18/2024 Calcium Carbonate Oral 02/18/2024 Docusate Sodium Oral 02/18/2024 Vitamin M19-Urwie Acid Oral 500 mcg-400 mcg 11/13/2022 Levothyroxine [...] Physical Exam General: Awake, alert, and oriented. ? Skin: No rash noted Eyes: ? Sclera anicteric. ? Lymphatics: No palpable lymphadenopathy Lungs: Clear Heart: Regular rate and rhythm. ?No murmurs Abdomen: ?Soft, nontender, nondistended. ? Extremities: ?Well perfused, trace edema MSK: Tenderness over right [...] signed by Oziel Box MD 02/21/2024 11:02 ADMINISTRATIVE RESIDENT
--- OUTSIDE RECORDS SUMMARY | 2024-09-18 08:40 | XMS_ITS | Clinical Summary ---
Author Organization [facility] Address [address] [place] [id number] Care Team Providers Care General Road Production Manager Name Role Phone Annie Worthington Primary Care Provider Feroz Arthur MD Unavailable [phone] Allergies Active Allergy Reactions Criticality Noted Date [...] Description 07/26/2024 2:15 PM CDT Office Visit [address] [place] [phone] Feroz Arthur MD Parkinson's disease without dyskinesia or fluctuating manifestations (HCC) (Primary Dx); Restless legs syndrome; Abnormality of gait and mobility 07/11/2024 Order-Scan [address] [place] [phone] Renetta Parsons APRN, MILLING PLANER OPERATOR 07/07/2024 Order-Scan [address] [place] [phone] Renetta Parsons APRN, MILLING PLANER OPERATOR from Last 3 Months Family History Medical [...] Hormone (TSH) 02/20/2023 02/20/2022 COVID-19 Vaccine ( - 2023- season) 2023 12/17/2020, 06/07/2020, 05/17/2020 RSV Vaccines (1 - 1-dose 75+ series) 02/20/2024 Influenza Vaccine (#1) 2024 , 12/28/2019, 12/15/2017, Additional history exists Adult Tetanus [...] time period is included. us Renetta Parsons MANAGEMENT AIDE, MILLING PLANER OPERATOR MICROBIOLOGY ORDERA BLE Final Result from Last 3 Months Insurance [facility] MEDICARE ADVANTAGE Care Teams General Road Production Manager Relationship Specialty Start Date End Date Annie Worthington [address] [place] [id number] PCP - General 09/03/22 Feroz Arthur MD [address] [place] [address] [address] [place] [address] Neurology 09/03/22
--- OUTSIDE RECORDS SUMMARY | 2024-09-18 08:40 | XMS_ITS ---
Author Name Interface, [id number] lity Address [address] [facility] [address] [address] [facility] On[facility] Address [address] [facility] [address] [address] Allergies and Adverse Reactions Medication/Group Name Reaction Severity Date amoxicillin 09/04/2024 Penicillins 09/04/2024 ciprofloxacin Hives 09/04/2024 nitrofurantoin Hives 09/04/2024 Plan Date Type Value 02/28/2025 APPOINTMENT OUTSIDE [...] 20 MIN 05/13/2022 APPOINTMENT CHART CHECK 5 [place] N 05/08/2022 APPOINTMENT OV 20 MIN 05/08/2022 [...] 15 MIN 02/20/2022 APPOINTMENT CHART CHECK 5 [place] N 01/16/2022 APPOINTMENT PORT DRAW 15 MIN [...] 30 MIN 10/02/2021 APPOINTMENT CHART CHECK 5 [place] N 10/01/2021 APPOINTMENT OUTSIDE TEST 5 M [...] 15 MIN 04/08/2021 APPOINTMENT CHART CHECK 5 [place] N 04/07/2021 APPOINTMENT OUTSIDE TEST 5 M [...] auto diff 01/02/2021 LABORDER CMP 01/02/2021 LABORDER CBC w/ auto diff 01/02/2021 LABORDER iSTAT creatinine panel 01/09/2021 LABORDER CMP 01/09/2021 LABORDER CBC w/ auto diff 01/09/2021 LABORDER iSTAT creatinine panel 01/16/2021 LABORDER CMP 01/16/2021 LABORDER CBC w/ auto diff 01/16/2021 LABORDER CMP 01/16/2021 LABORDER CBC w/ auto diff 01/16/2021 LABORDER iSTAT creatinine panel 01/23/2021 LABORDER CMP 01/23/2021 LABORDER CBC w/ auto diff 01/23/2021 LABORDER iSTAT creatinine panel 01/23/2021 LABORDER CBC w/ auto diff 01/23/2021 LABORDER CMP 01/30/2021 LABORDER CMP 01/30/2021 LABORDER CBC w/ auto diff 01/30/2021 LABORDER iSTAT creatinine panel 01/30/2021 LABORDER CBC w/ auto diff 01/30/2021 LABORDER iSTAT creatinine panel 02/07/2021 LABORDER CMP 02/07/2021 LABORDER CBC w/ auto diff 02/07/2021 LABORDER iSTAT creatinine panel 02/17/2021 LABORDER CMP 02/17/2021 LABORDER CBC w/ auto diff 02/17/2021 LABORDER TSH w/ reflex to free T4 03/17/2021 LABORDER CMP 03/17/2021 LABORDER CBC w/ auto diff 03/17/2021 LABORDER TSH w/ reflex to free T4 04/07/2021 LABORDER MRI cervical spi ne w/ contrast 04/14/2021 LABORDER CMP 04/14/2021 LABORDER CBC w/ auto diff 04/14/2021 LABORDER TSH w/ reflex to free T4 04/15/2021 LABORDER MRI brain w/ & w /o contrast 04/15/[address] chest/abdomen /pelvis w/ IV contrast 04/30/2021 LABORDER Urinalysis with Reflex Panel 05/28/2021 LABORDER Herpes simplex v irus type 1/2 qualitative DNA PCR panel 05/28/2021 LABORDER CMP 05/28/2021 LABORDER CBC w/ auto diff 05/28/2021 LABORDER TSH w/ reflex to free T4 05/30/2021 LABORDER Urinalysis with Reflex Panel 07/02/2021 LABORDER CMP 07/02/2021 LABORDER CBC w/ auto diff 07/02/2021 LABORDER TSH w/ reflex to free T4 07/28/2021 LABORDER MRI brain w/ & w /o contrast 07/28/[address] chest/abdomen /pelvis w/ IV contrast 07/30/2021 LABORDER CMP 07/30/2021 LABORDER CBC w/ auto diff 07/30/2021 LABORDER TSH w/ reflex to free T4 07/30/2021 LABORDER Hepatitis C anti body panel 08/27/2021 LABORDER CBC w/ auto diff 08/27/2021 LABORDER TSH w/ reflex to free T4 08/27/2021 LABORDER CMP 08/27/[address] chest/abdomen /pelvis w/ IV contrast 09/05/2021 LABORDER PET/CT scan, sku ll base/mid thigh 09/24/2021 LABORDER MRI brain w/ & w /o contrast 09/26/2021 LABORDER CMP 09/26/2021 LABORDER CBC w/ auto diff 09/26/2021 LABORDER TSH w/ reflex to free T4 10/24/2021 LABORDER TSH w/ reflex to free T4 10/24/2021 LABORDER CBC w/ auto diff 10/24/2021 LABORDER CMP 11/21/2021 LABORDER CBC w/ auto diff 11/21/2021 LABORDER CMP 11/21/2021 LABORDER TSH w/ reflex to free T4 12/19/2021 LABORDER PET/CT scan, sku ll base/mid thigh 12/19/2021 LABORDER CMP 12/19/2021 LABORDER TSH w/ reflex to free [...] chest/abdomen /pelvis w/ IV contrast 11/03/2022 LABORDER PET/CT scan, sku ll base/mid thigh 11/03/2022 LABORDER CBC w/ auto diff 11/03/2022 LABORDER CMP 11/03/2022 LABORDER MRI brain w/ & w /o contrast 02/08/2023 LABORDER MRI brain w/ & w /o contrast 02/08/[address] chest/abdomen /pelvis w/ IV contrast 02/08/2023 LABORDER CMP 02/08/2023 LABORDER TSH w/ reflex to free T4 02/08/2023 LABORDER CBC w/ auto diff 08/10/2023 [...] Visit OV 20 MIN Encounters Date Name 12/09/2020 Anemia 12/09/2020 [...] Ordered By Specimen Source Lab Address 12/24 CMP Album in g/dL 3.2 5.2 4.3 [facility]AL [facility] [employer] [address] [phone] 0 Phone: () - 12/24 CMP Alkal ine phosp hatas e U/L 46.0 116.0 68 FINAL [place] [address] [address] [facility] [address] [phone] 0 Phone: () - 12/24 CMP ALT/S GPT U/L 7.0 40.0 12 FINAL [place] [address] [facility] [address] [place] [phone] Phone: () - 12/24 CMP AST/S GOT U/L 13.0 40.0 19 [facility] [address] [facility] [address] [phone] 0 Phone: () - 12/24 CMP BUN mg/dL 9.0 23.0 17 FINAL [facility], [address] [facility] [address] [phone] 0 Phone: () - 12/24 CMP Calci um mg/dL 8.7 10.4 10.0 FINAL Oziel angelo [place] [address] [phone] 0 Phone: () - 12/24 CMP Chlor vipin mmol/L 96.0 114.0 107 FINAL Oziel angelo [place] [address] [phone] 0 Phone: () - 12/24 CMP CO2 [...] 96 hour stability window. FINAL Oziel angelo [place] [address] [phone] 0 Phone: () - 12/24 CMP Creat inine mg/dL 0.5 1.2 0.85 FINAL Oziel angelo [place] [address] [phone] 0 Phone: () - 12/24 CMP GFR estim ate ml/min /1.73m ^2 68.5 GFR is calculate d using the CKD-EPI equation. FINAL Oziel angelo [place] [address] [phone] 0 Phone: () - 12/24 CMP Gluco se mg/dL 73.0 126.0 207 High FINAL Oziel angelo [place] [address] [address] [facility] [address] [phone] Phone: () - 12/24 CMP Potas sium mmol/L 3.5 5.1 4.3 FINAL Oziel angelo [place] [address] [phone] 0 Phone: () - 12/24 CMP Sodiu m mmol/L 136.0 145.0 139 FINAL Oziel angelo [facility] [address] [place] [address] [place] [phone] 0 Phone: () - 12/24 CMP Bilir ubin, total mg/dL 0.3 1.2 0.2 Low FINAL Oziel angelo [facility] - [place], [address] [place] [phone] 0 Phone: () - 12/24 CMP Total prote in g/dL 5.7 8.2 7.1 FINAL Oziel angelo [facility] - [place], [address] [place] [phone] 0 Phone: () - 12/24 iSTAT creat inine panel Creat inine , iSTAT mg/dl 0.6 1.3 0.7 FINAL Oziel angelo [facility] - [place], [address] [place] [phone] 0 Phone: () - 12/24 iSTAT creat inine panel GFR estim ate ml/min /1.73m ^2 86.7 GFR is calculate d using the CKD-EPI equation. FINAL Oziel angelo [facility] - [place], [address] [place] [phone] 0 Phone: () - 12/24 CBC w/ auto diff WBC K/uL 3.0 8.9 5.3 FINAL Oziel angelo [facility] - [place], [address] [place] [phone] 0 Phone: () - 12/24 CBC w/ auto diff HGB g/dL 11.3 15.2 12.5 FINAL Oziel angelo [facility] - [place], [address] [place] [phone] 0 Phone: () - 12/24 CBC w/ auto diff PLT K/uL 113.0 364.0 212 FINAL Oziel angelo [facility] - [place], [address] [place] [phone] 0 Phone: () - 12/24 CBC w/ auto diff Dave # (ANC) K/uL 1.6 6.6 4.7 FINAL [facility] [place] [facility] - [place], [address] [place] [phone] 0 Phone: () - 12/24 CBC w/ auto diff Dave % % 43.0 74.0 88.2 High FINAL [facility]iel [facility] - [place], [address] [place] [phone] 0 Phone: () - 12/24 CBC w/ auto diff IG % % 0.0 0.5 0.8 High FINAL [facility] - [place], [address] [place] [phone] 0 Phone: () - 12/24 CBC w/ auto diff IG # K/uL 0.0 0.03 0.04 High FINAL [facility]iel [facility] - [place], [address] [place] [phone] 0 Phone: () - 12/24 CBC w/ auto diff LY % % 14.0 41.0 10.0 Low FINAL [facility] - [place], [address] [place] [phone] 0 Phone: () - 12/24 CBC w/ auto diff MO % % 6.0 15.0 0.8 Low FINAL Oziel [facility] - [place], [address] [place] [phone] 0 Phone: () - 12/24 CBC w/ auto diff EO % % 0.0 7.0 0.0 FINAL [facility] - [place], [address] [place] [phone] 0 Phone: () - 12/24 CBC w/ auto diff BA % % 0.0 2.0 0.2 FINAL [facility] - [place], [address] [place] [phone] 0 Phone: () - 12/24 CBC w/ auto diff LY # K/uL 0.4 3.6 0.5 FINAL [facility] - [place], [address] [place] [phone] 0 Phone: () - 12/24 CBC w/ auto diff MO # K/uL 0.2 1.3 0.0 Low FINAL [facility] - [place], [address] [place] [phone] 0 Phone: () - 12/24 CBC w/ auto diff EO # K/uL 0.0 0.6 0.0 FINAL [facility] - [place], [address] [place] [phone] 0 Phone: () - 12/24 CBC w/ auto diff BA # K/uL 0.0 0.2 0.0 FINAL [facility] - [place], [address] [place] [phone] 0 Phone: () - 12/24 CBC w/ auto diff NRBC % #/100W BC 0.0 0.2 0.0 FINAL [facility] - [place], [address] [place] [phone] 0 Phone: () - 12/24 CBC w/ auto diff RBC M/uL 3.9 5.1 3.82 Low FINAL [facility] - [place], [address] [place] [phone] 0 Phone: () - 12/24 CBC w/ auto diff HCT % 35.0 48.0 36.9 FINAL [facility] [facility] - [place], [address] [place] [id number] 0 Phone: () - 12/24 CBC w/ auto diff MCV fL 80.0 104.0 96.6 FINAL [facility] - [place], [address] [place] [phone] 0 Phone: () - 12/24 CBC w/ auto diff MCH pg 26.0 35.0 32.7 FINAL [facility] - [place], [address] [place] [phone] 0 Phone: () - 12/24 CBC w/ auto diff MCHC g/dL 30.0 35.0 33.9 FINAL [facility] - [place], [address] [place] [phone] 0 Phone: () - 12/24 CBC w/ auto diff MPV fL 9.5 13.4 9.6 FINAL [facility] - [place], [address] [place] [phone] 0 Phone: () - 12/24 CBC w/ auto diff RDW % 11.4 16.1 12.90 FINAL [facility] - [place], [address] [place] [id number] 0 Phone: () - 01/02 CBC w/ auto diff WBC K/uL 3.0 8.9 4.4 FINAL Lia [facility] - [place], [address] [place] [phone] 0 Phone: () - 01/02 CBC w/ auto diff HGB g/dL 11.3 15.2 11.7 FINAL Lia [facility] - [place], [address] [place] [phone] 0 Phone: () - 01/02 CBC w/ auto diff PLT K/uL 113.0 364.0 209 FINAL L[facility] - [place], [address] [place] [phone] 0 Phone: () - 01/02 CBC w/ auto diff Dave # (ANC) K/uL 1.6 6.6 4.0 FINAL [facility] [facility] - [place], [address] [place] [phone] 0 Phone: () - 01/02 CBC w/ auto diff Dave % % 43.0 74.0 91.7 High FINAL [facility] - [place], [address] [place] [id number] 0 Phone: () - 01/02 CBC w/ auto diff IG % % 0.0 0.5 0.7 High FINAL [facility] - [place], [address] [place] [phone] 0 Phone: () - 01/02 CBC w/ auto diff IG # K/uL 0.0 0.03 0.03 FINAL [facility] - [place], [address] [facility] [address] [place] [id number] 0 Phone: () - 01/02 CBC w/ auto diff LY % % 14.0 41.0 6.7 Low FINAL Lia [facility] [facility] - [place], [address] [facility] [address] [place] [phone] 0 Phone: () - 01/02 CBC w/ auto diff MO % % 6.0 15.0 0.7 Low FINAL Lia [facility] [facility] - [place], [address] [facility] [address] [place] [phone] 0 Phone: () - 01/02 CBC w/ auto diff EO % % 0.0 7.0 0.0 FINAL [facility] [facility] - [place], [address] [place] [phone] 0 Phone: () - 01/02 CBC w/ auto diff BA % % 0.0 2.0 0.2 FINAL L[facility] - [place], [address] [place] [id number] 0 Phone: () - 01/02 CBC w/ auto diff LY # K/uL 0.4 3.6 0.3 Low FINAL Lia [facility] - [place], [address] [place] [phone] 0 Phone: () - 01/02 CBC w/ auto diff MO # K/uL 0.2 1.3 0.0 Low FINAL Lia Tolbert a [facility] - [place], [address] [facility] [address] [place] [id number] 0 Phone: () - 01/02 CBC w/ auto diff EO # K/uL 0.0 0.6 0.0 FINAL Lia Tolbert a [facility] - [place], [address] [facility] [address] [place] [phone] 0 Phone: () - 01/02 CBC w/ auto diff BA # K/uL 0.0 0.2 0.0 FINAL Lia [facility] [facility] - [place], [address] [facility] [address] [place] [phone] 0 Phone: () - 01/02 CBC w/ auto diff NRBC % #/100W BC 0.0 0.2 0.0 FINAL Lia angelo [facility] - [place], [address] [facility] [address] [place] [phone] 0 Phone: () - 01/02 CBC w/ auto diff RBC M/uL 3.9 5.1 3.56 Low FINAL Lia Tolbert a [facility] - [place], [address] [facility] [address] [place] [phone] 0 Phone: () - 01/02 CBC w/ auto diff HCT % 35.0 48.0 34.2 Low FINAL Lia [facility] - [place], [address] [facility] [address] [place] [phone] 0 Phone: () - 01/02 CBC w/ auto diff MCV fL 80.0 104.0 96.1 FINAL Lia [facility] - [place], [address] [facility] [address] [place] [phone] 0 Phone: () - 01/02 CBC w/ auto diff MCH pg 26.0 35.0 32.9 FINAL Lia [facility] - [place], [address] [place] [id number] 0 Phone: () - 01/02 CBC w/ auto diff MCHC g/dL 30.0 35.0 34.2 FINAL Lia angelo [facility] - [place], [address] [facility] [address] [place] [id number] 0 Phone: () - 01/02 CBC w/ auto diff MPV fL 9.5 13.4 9.5 FINAL Lia angelo [facility] - [place], [address] [facility] [address] [place] [phone] 0 Phone: () - 01/02 CBC w/ auto diff RDW % 11.4 16.1 12.80 FINAL Lia angelo [facility] - [place], [address] [facility] [address] [place] [phone] 0 Phone: () - 01/02 iSTAT creat inine panel Creat inine , iSTAT mg/dl 0.6 1.3 0.8 FINAL Lia angelo [facility] - [place], [address] [facility] [address] [place] [phone] 0 Phone: () - 01/02 iSTAT creat inine panel GFR estim ate ml/min /1.73m ^2 73.7 GFR is calculate d using the CKD-EPI equation. FINAL Lia angelo [facility] - [place], [address] [facility] [address] [place] [phone] 0 Phone: () - 01/02 CMP Album in g/dL 3.2 5.2 4.2 FINAL Lia angelo Oncology [facility], [address] [place] [id number] 0 Phone: () - 01/02 CMP Alkal ine phosp hatas e U/L 46.0 116.0 58 FINAL Lia angelo Oncology [facility], [address] [place] [phone] 0 Phone: () - 01/02 CMP ALT/S GPT U/L 7.0 40.0 13 FINAL [facility] [address] [facility] [address] [facility] [phone] 0 Phone: () - 01/02 CMP AST/S GOT U/L 13.0 40.0 20 FINAL [facility] [address] [facility] [address] [phone] 0 Phone: () - 01/02 CMP BUN mg/dL 9.0 23.0 17 FINAL [place] [address] [address] [facility] [address] [id number] 0 Phone: () - 01/02 CMP Calci um mg/dL 8.7 10.4 10.7 High FINAL [place] [address] [phone] 0 Phone: () - 01/02 CMP Chlor vipin mmol/L 96.0 114.0 109 FINAL [place] [address] [id number] 0 Phone: () - 01/02 CMP CO2 [...] of the 96 hour stability window. FINAL [place] [address] [phone] 0 Phone: () - 01/02 CMP Creat inine mg/dL 0.5 1.2 0.76 FINAL [place] [address] [id number] 0 Phone: () - 01/02 CMP GFR estim ate ml/min /1.73m ^2 78.4 GFR is calculate d using the CKD-EPI equation. FINAL [place] [address] [phone] 0 Phone: () - 01/02 CMP Gluco se mg/dL 73.0 126.0 122 FINAL [facility], [address] [facility] [id number] 0 Phone: () - 01/02 CMP Potas sium mmol/L 3.5 5.1 4.4 FINAL [facility], [address] [facility] [phone] 0 Phone: () - 01/02 CMP Sodiu m mmol/L 136.0 145.0 140 FINAL [facility], [address] [facility] [id number] 0 Phone: () - 01/02 CMP Bilir ubin, total mg/dL 0.3 1.2 0.[address] [facility], [address] [facility] [phone] 0 Phone: () - 01/02 CMP Total prote in g/dL 5.7 8.2 6.[address] [facility], [address] [facility] [id number] 0 Phone: () - 01/09 Smear revie w panel CBC Smear revie w comme nts Consist ent with reporte d results FINAL Lia Delgado [facility] - [place] , [address] [address] [facility] [phone] 0 Phone: () - 01/09 CBC w/ auto diff WBC K/uL 3.0 8.9 4.8 FINAL [facility] [place], [address] [facility] [place] [id number] 0 Phone: () - 01/09 CBC w/ auto diff HGB g/dL 11.3 15.2 11.8 FINAL Lia Delgado [facility] - [place], [address] [place], [place] [address] [facility] [place] [phone] 0 Phone: () - 01/09 CBC w/ auto diff PLT K/uL 113.0 364.0 165 FINAL Liagi Tilleyot a [facility] - [place], [address] [place] [phone] 0 Phone: () - 01/09 CBC w/ auto diff Dave # (ANC) K/uL 1.6 6.6 4.4 FINAL Lia [facility] a [facility] - [place], [address] [place] [phone] 0 Phone: () - 01/09 CBC w/ auto diff Dave % % 43.0 74.0 91.5 High FINAL Lia [facility] - [place], [address] [place] [phone] 0 Phone: () - 01/09 CBC w/ auto diff IG % % 0.0 0.5 1.5 High FINAL Lia [facility] [facility] - [place], [address] [place] [phone] 0 Phone: () - 01/09 CBC w/ auto diff IG # K/uL 0.0 0.03 0.07 High FINAL L[facility] - [place], [address] [place] [phone] 0 Phone: () - 01/09 CBC w/ auto diff LY % % 14.0 41.0 5.5 Low FINAL Lia [facility] - [place], [address] [place] [id number] 0 Phone: () - 01/09 CBC w/ auto diff MO % % 6.0 15.0 1.3 Low FINAL Lia [facility] - [place], [address] [place] [id number] 0 Phone: () - 01/09 CBC w/ auto diff EO % % 0.0 7.0 0.0 FINAL [facility] - [place], [address] [place] [phone] 0 Phone: () - 01/09 CBC w/ auto diff BA % % 0.0 2.0 0.2 FINAL L[facility] - [place], [address] [place] [phone] 0 Phone: () - 01/09 CBC w/ auto diff LY # K/uL 0.4 3.6 0.3 Low FINAL Lia [facility] - [place], [address] [place] [phone] 0 Phone: () - 01/09 CBC w/ auto diff MO # K/uL 0.2 1.3 0.1 Low FINAL Lia [facility] - [place], [address] [place] [phone] 0 Phone: () - 01/09 CBC w/ auto diff EO # K/uL 0.0 0.6 0.0 FINAL Lia [facility] - [place], [address] [place] [id number] 0 Phone: () - 01/09 CBC w/ auto diff BA # K/uL 0.0 0.2 0.0 FINAL Lia [facility] a [facility] - [place], [address] [place] [id number] 0 Phone: () - 01/09 CBC w/ auto diff NRBC % #/100W BC 0.0 0.2 0.0 FINAL Lia [facility] a [facility] - [place], [address] [place] [id number] 0 Phone: () - 01/09 CBC w/ auto diff RBC M/uL 3.9 5.1 3.56 Low FINAL Lia T[facility]ley[facility] a [facility] - [place], [address] [place] [phone] 0 Phone: () - 01/09 CBC w/ auto diff HCT % 35.0 48.0 34.2 Low FINAL Lia T[facility] a [facility] - [place], [address] [place] [phone] 0 Phone: () - 01/09 CBC w/ auto diff MCV fL 80.0 104.0 96.1 FINAL Lia T[facility]ley[facility] a [facility] - [place], [address] [facility] [address] [place] [phone] 0 Phone: () - 01/09 CBC w/ auto diff MCH pg 26.0 35.0 33.1 FINAL Lia angelo [facility] - [place], [address] [facility] [address] [place] [phone] 0 Phone: () - 01/09 CBC w/ auto diff MCHC g/dL 30.0 35.0 34.5 FINAL Lia Tilleyot a [facility] - [place], [address] [facility] [address] [place] [phone] 0 Phone: () - 01/09 CBC w/ auto diff MPV fL 9.5 13.4 9.4 Low FINAL Lia angelo [facility] - [place], [address] [facility] [address] [place] [phone] 0 Phone: () - 01/09 CBC w/ auto diff RDW % 11.4 16.1 12.90 FINAL Lia angelo [facility] - [place], [address] [facility] [address] [place] [id number] 0 Phone: () - 01/09 CBC w/ auto diff Auto CBC comme nts Slide review to follow FINAL Lia Tolbert a [facility] - [place], [address] [facility] [address] [place] [phone] 0 Phone: () - 01/09 CMP Album in g/dL 3.2 5.2 4.2 FINAL Lia Tilley a Oncology [facility], [address] [facility] [address] [place] [phone] 0 Phone: () - 01/09 CMP Alkal ine phosp hatas e U/L 46.0 116.0 65 FINAL Lia Tilley a Oncology [facility], [address] [place] [phone] 0 Phone: () - 01/09 CMP ALT/S GPT U/L 7.0 40.0 16 FINAL [place] [address] [address] [facility] 100 [facility] [id number] 0 Phone: () - 01/09 CMP AST/S GOT U/L 13.0 40.0 19 FINAL [facility] [address] [facility] [address] [id number] 0 Phone: () - 01/09 CMP BUN mg/dL 9.0 23.0 19 FINAL [place] [address] [address] [facility] [address] [id number] 0 Phone: () - 01/09 CMP Calci um mg/dL 8.7 10.4 10.4 FINAL [place] [address] [address] [facility] [address] [phone] 0 Phone: () - 01/09 CMP Chlor vipin mmol/L 96.0 114.0 106 FINAL [place] [address] [address] [facility] [address] [phone] 0 Phone: () - 01/09 CMP CO2 [...] of the 96 hour stability window. FINAL [facility], [employer] [address] [phone] 0 Phone: () - 01/09 CMP Creat inine mg/dL 0.5 1.2 0.78 FINAL [place] [address] [id number] 0 Phone: () - 01/09 CMP GFR estim ate ml/min /1.73m ^2 76.0 GFR is calculate d using the CKD-EPI equation. FINAL [place] [address] [address] [facility] [address] [phone] 0 Phone: () - 01/09 CMP Gluco se mg/dL 73.0 126.0 129 High FINAL Lia [facility], [address] [place] [phone] 0 Phone: () - 01/09 CMP Potas sium mmol/L 3.5 5.1 4.5 FINAL [facility], [address] [place] [address] [phone] 0 Phone: () - 01/09 CMP Sodiu m mmol/L 136.0 145.0 139 FINAL [facility], [address] [place] [phone] 0 Phone: () - 01/09 CMP Bilir ubin, total mg/dL 0.3 1.2 0.4 FINAL [facility], [address] [facility] [address] [place] [address] [phone] Phone: () - 01/09 CMP Total prote in g/dL 5.7 8.2 6.7 FINAL [facility], [address] [place] [address] [phone] 0 Phone: () - 01/09 iSTAT creat inine panel Creat inine , iSTAT mg/dl 0.6 1.3 0.7 FINAL Liagi Delgado [facility], [address] [facility] [address] [place] [address] [phone] 0 Phone: () - 01/09 iSTAT creat inine panel GFR estim ate ml/min /1.73m ^2 86.6 GFR is calculate d using the CKD-EPI equation. FINAL [facility], [address] [place] [address] [place] [address] [phone] 0 Phone: () - 01/16 iSTAT creat inine panel Creat inine , iSTAT mg/dl 0.6 1.3 0.8 FINAL [facility], [address] [place] [address] [place] [phone] 0 Phone: () - 01/16 iSTAT creat inine panel GFR estim ate ml/min /1.73m ^2 73.7 GFR is calculate d using the CKD-EPI equation. FINAL [facility] [place], [address] [place] [phone] 0 Phone: () - 01/16 Smear revie w panel CBC Smear revie w comme nts Consist ent with reporte d results FINAL [facility] [place], [address] [place] [id number] 0 Phone: () - 01/16 CBC w/ auto diff LY % % 14.0 41.0 4.0 Low FINAL [facility] [place], [address] [place] [id number] 0 Phone: () - 01/16 CBC w/ auto diff MO % % 6.0 15.0 1.6 Low FINAL [facility] [place], [address] [place] [id number] 0 Phone: () - 01/16 CBC w/ auto diff EO % % 0.0 7.0 0.0 FINAL [facility] [place], [address] [place] [id number] 0 Phone: () - 01/16 CBC w/ auto diff BA % % 0.0 2.0 0.2 FINAL [facility] [place], [address] [place] [phone] 0 Phone: () - 01/16 CBC w/ auto diff LY # K/uL 0.4 3.6 0.2 Low FINAL [facility] [place], [address] [place] [id number] 0 Phone: () - 01/16 CBC w/ auto diff MO # K/uL 0.2 1.3 0.1 Low FINAL [facility] [place], [address] [place] [id number] 0 Phone: () - 01/16 CBC w/ auto diff EO # K/uL 0.0 0.6 0.0 FINAL [facility] [place], [address] [place] [id number] 0 Phone: () - 01/16 CBC w/ auto diff BA # K/uL 0.0 0.2 0.0 FINAL [facility] [place], [address] [place] [id number] 0 Phone: () - 01/16 CBC w/ auto diff NRBC % #/100W BC 0.0 0.2 0.0 FINAL [facility] [place], [address] [place] [id number] 0 Phone: () - 01/16 CBC w/ auto diff RBC M/uL 3.9 5.1 3.30 Low FINAL [facility] [place], [address] [place] [id number] 0 Phone: () - 01/16 CBC w/ auto diff HCT % 35.0 48.0 32.8 Low FINAL [facility] [place], [address] [place] [id number] 0 Phone: () - 01/16 CBC w/ auto diff MCV fL 80.0 104.0 99.4 FINAL [facility] [place], [address] [place] [phone] 0 Phone: () - 01/16 CBC w/ auto diff MCH pg 26.0 35.0 33.3 FINAL [facility] [place], [address] [place] [id number] 0 Phone: () - 01/16 CBC w/ auto diff MCHC g/dL 30.0 35.0 33.5 FINAL [facility] [place], [address] [place] [id number] 0 Phone: () - 01/16 CBC w/ auto diff MPV fL 9.5 13.4 9.2 Low FINAL [facility] [place], [address] [facility] [address] [place] [id number] 0 Phone: () - 01/16 CBC w/ auto diff RDW % 11.4 16.1 13.90 FINAL [facility] [place], [address] [facility] [address] [place] [id number] 0 Phone: () - 01/16 CBC w/ auto diff Auto CBC comme nts Slide review to follow FINAL [facility] [place], [address] [facility] [address] [place] [phone] 0 Phone: () - 01/16 CBC w/ auto diff Dave # (ANC) K/uL 1.6 6.6 4.2 FINAL [facility] [place], [address] [facility] [address] [place] [id number] 0 Phone: () - 01/16 CBC w/ auto diff HGB g/dL 11.3 15.2 11.0 Low FINAL [facility] [place], [address] [facility] [address] [place] [phone] 0 Phone: () - 01/16 CBC w/ auto diff PLT K/uL 113.0 364.0 144 FINAL [facility] [place], [address] [place] [id number] 0 Phone: () - 01/16 CBC w/ auto diff Dave % % 43.0 74.0 92.4 High FINAL [facility] [place], [address] [place] [id number] 0 Phone: () - 01/16 CBC w/ auto diff IG % % 0.0 0.5 1.8 High FINAL [facility], [address] [facility] [address] [facility] [place] [phone] 0 Phone: () - 01/16 CBC w/ auto diff IG # K/uL 0.0 0.03 0.08 High FINAL [facility], [address] [facility] [address] [facility] [place] [id number] 0 Phone: () - 01/16 CBC w/ auto diff WBC K/uL 3.0 8.9 4.5 FINAL Lia angelo [facility], [address] [facility] [address] [facility] [id number] 0 Phone: () - 01/16 CMP Album in g/dL 3.2 5.2 3.9 FINAL [place] [address] [address] [facility] [address] [place] [address] [id number] 0 Phone: () - 01/16 CMP Alkal ine phosp hatas e U/L 46.0 116.0 62 FINAL Lia Delgado [place] [address] [id number] 0 Phone: () - 01/16 CMP ALT/S GPT U/L 7.0 40.0 19 FINAL Lia Delgado [place] [address] [id number] 0 Phone: () - 01/16 CMP AST/S GOT U/L 13.0 40.0 18 FINAL [place] [address] [address] [facility] [address] [id number] 0 Phone: () - 01/16 CMP BUN mg/dL 9.0 23.0 21 FINAL [place] [address] [address] [facility] [address] [place] [address] [id number] 0 Phone: () - 01/16 CMP Calci um mg/dL 8.7 10.4 10.3 FINAL [place]ia [place] [address] [id number] 0 Phone: () - 01/16 CMP Chlor vipin mmol/L 96.0 114.0 108 FINAL Lia [place] [address] [id number] 0 Phone: () - 01/16 CMP CO2 [...] of the 96 hour stability window. FINAL [place] [address] [id number] 0 Phone: () - 01/16 CMP Creat inine mg/dL 0.5 1.2 0.78 FINAL [place] [address] [id number] 0 Phone: () - 01/16 CMP GFR estim ate ml/min /1.73m ^2 76.0 GFR is calculate d using the CKD-EPI equation. FINAL [place] [address] [id number] 0 Phone: () - 01/16 CMP Gluco se mg/dL 73.0 126.0 138 High FINAL [place] [address] [id number] 0 Phone: () - 01/16 CMP Potas sium mmol/L 3.5 5.1 4.2 FINAL [place] [address] [id number] 0 Phone: () - 01/16 CMP Sodiu m mmol/L 136.0 145.0 140 FINAL [place] [address] [id number] 0 Phone: () - 01/16 CMP Bilir ubin, total mg/dL 0.3 1.2 0.3 FINAL [facility] [place], [address] [place] [id number] 0 Phone: () - 01/16 CMP Total prote in g/dL 5.7 8.2 6.3 FINAL [facility] [place], [address] [place] [id number] 0 Phone: () - 01/23 Smear revie w panel CBC Smear revie w comme nts Consist ent with reporte d results FINAL [facility] [place], [address] [place] [phone] 0 Phone: () - 01/23 iSTAT creat inine panel Creat inine , iSTAT mg/dl 0.6 1.3 0.8 FINAL [facility] [place], [address] [place] [id number] 0 Phone: () - 01/23 iSTAT creat inine panel GFR estim ate ml/min /1.73m ^2 73.7 GFR is calculate d using the CKD-EPI equation. FINAL [facility] [place], [address] [place] [id number] 0 Phone: () - 01/23 CBC w/ auto diff WBC K/uL 3.0 8.9 2.4 Low FINAL [facility] [place], [address] [place] [id number] 0 Phone: () - 01/23 CBC w/ auto diff HGB g/dL 11.3 15.2 10.4 Low FINAL [facility] [place], [address] [place] [id number] 0 Phone: () - 01/23 CBC w/ auto diff PLT K/uL 113.0 364.0 109 Low FINAL Lia angel[facility] [place], [address] [place] [id number] 0 Phone: () - 01/23 CBC w/ auto diff Dave # (ANC) K/uL 1.6 6.6 2.2 FINAL [facility] [place], [address] [place] [id number] 0 Phone: () - 01/23 CBC w/ auto diff Dave % % 43.0 74.0 90.0 High FINAL [facility] [place], [address] [place] [id number] 0 Phone: () - 01/23 CBC w/ auto diff IG % % 0.0 0.5 0.8 High FINAL [facility] [place], [address] [place] [id number] 0 Phone: () - 01/23 CBC w/ auto diff IG # K/uL 0.0 0.03 0.02 FINAL [facility] [place], [address] [place] [id number] 0 Phone: () - 01/23 CBC w/ auto diff LY % % 14.0 41.0 7.1 Low FINAL [facility] [place], [address] [place] [id number] 0 Phone: () - 01/23 CBC w/ auto diff MO % % 6.0 15.0 2.1 Low FINAL [facility] [place], [address] [place] [id number] 0 Phone: () - 01/23 CBC w/ auto diff EO % % 0.0 7.0 0.0 FINAL [facility] [place], [address] [place] [id number] 0 Phone: () - 01/23 CBC w/ auto diff BA % % 0.0 2.0 0.0 FINAL [facility]ia [facility] [place] [facility] [place], [address] [place] [id number] 0 Phone: () - 01/23 CBC w/ auto diff LY # K/uL 0.4 3.6 0.2 Low FINAL [facility] [place], [address] [place] [id number] 0 Phone: () - 01/23 CBC w/ auto diff MO # K/uL 0.2 1.3 0.1 Low FINAL [facility] [place], [address] [place] [id number] 0 Phone: () - 01/23 CBC w/ auto diff EO # K/uL 0.0 0.6 0.0 FINAL [facility] [place], [address] [place] [id number] 0 Phone: () - 01/23 CBC w/ auto diff BA # K/uL 0.0 0.2 0.0 FINAL [facility] [place], [address] [place] [id number] 0 Phone: () - 01/23 CBC w/ auto diff NRBC % #/100W BC 0.0 0.2 0.0 FINAL [facility] [place], [address] [place] [id number] 0 Phone: () - 01/23 CBC w/ auto diff RBC M/uL 3.9 5.1 3.14 Low FINAL [facility] [place], [address] [place] [id number] 0 Phone: () - 01/23 CBC w/ auto diff HCT % 35.0 48.0 31.4 Low FINAL [facility] [place], [address] [place] [id number] 0 Phone: () - 01/23 CBC w/ auto diff MCV fL 80.0 104.0 100.0 FINAL [facility] [place], [address] [facility] [address] [place] [id number] 0 Phone: () - 01/23 CBC w/ auto diff MCH pg 26.0 35.0 33.1 FINAL [facility] [place], [address] [facility] [address] [place] [id number] 0 Phone: () - 01/23 CBC w/ auto diff MCHC g/dL 30.0 35.0 33.1 FINAL [facility] [place], [address] [facility] [address] [place] [id number] 0 Phone: () - 01/23 CBC w/ auto diff MPV fL 9.5 13.4 8.7 Low FINAL [facility] [place], [address] [facility] [address] [place] [id number] 0 Phone: () - 01/23 CBC w/ auto diff RDW % 11.4 16.1 15.00 FINAL [facility] [place], [address] [facility] [address] [place] [id number] 0 Phone: () - 01/23 CBC w/ auto diff Auto CBC comme nts Slide review to follow FINAL [facility]ia [facility] [place], [address] [facility] [address] [place] [id number] 0 Phone: () - 01/23 CMP Album in g/dL 3.2 5.2 3.8 FINAL Lia Tilley [facility] [place], [address] [place] [id number] 0 Phone: () - 01/23 CMP Alkal ine phosp hatas e U/L 46.0 116.0 61 FINAL Lia Tilley [facility] [place], [address] [place] [id number] 0 Phone: () - 01/23 CMP ALT/S GPT U/L 7.0 40.0 24 FINAL [facility], [address] [facility] [address] [facility] [id number] 0 Phone: () - 01/23 CMP AST/S GOT U/L 13.0 40.0 21 FINAL [facility] [address] [facility] [address] [id number] 0 Phone: () - 01/23 CMP BUN mg/dL 9.0 23.0 22 FINAL [place] [address] [address] [facility] [address] [id number] 0 Phone: () - 01/23 CMP Calci um mg/dL 8.7 10.4 9.1 FINAL [place] [address] [id number] 0 Phone: () - 01/23 CMP Chlor vipin mmol/L 96.0 114.0 110 FINAL [place] [address] [id number] 0 Phone: () - 01/23 CMP CO2 [...] of the 96 hour stability window. FINAL [place] [address] [id number] 0 Phone: () - 01/23 CMP Creat inine mg/dL 0.5 1.2 0.74 FINAL [place] [address] [id number] 0 Phone: () - 01/23 CMP GFR estim ate ml/min /1.73m ^2 81.0 GFR is calculate d using the CKD-EPI equation. FINAL [place] [address] [address] [facility] [address] [id number] 0 Phone: () - 01/23 CMP Gluco se mg/dL 73.0 126.0 148 High [facility], [address] [facility] [id number] 0 Phone: () - 01/23 CMP Potas sium mmol/L 3.5 5.1 4.4 FINAL [facility], [address] [facility] [id number] 0 Phone: () - 01/23 CMP Sodiu m mmol/L 136.0 145.0 141 FINAL [facility], [address] [facility] [id number] 0 Phone: () - 01/23 CMP Bilir ubin, total mg/dL 0.3 1.2 0.3 FINAL [facility], [address] [facility] [id number] 0 Phone: () - 01/23 CMP Total prote in g/dL 5.7 8.2 6.1 FINAL [facility], [address] [facility] [id number] 0 Phone: () - 01/30 Smear revie w panel CBC Smear revie w comme nts Consist ent with reporte d results FINAL Lia angelo [facility] [place], [address] [facility] [place] [id number] 0 Phone: () - 01/30 iSTAT creat inine panel Creat inine , iSTAT mg/dl 0.6 1.3 0.7 FINAL [facility]ia Tilley [facility] [place], [address] [place] [id number] 0 Phone: () - 01/30 iSTAT creat inine panel GFR estim ate ml/min /1.73m ^2 86.6 GFR is calculate d using the CKD-EPI equation. FINAL [facility] T[facility] [place], [address] [place] [id number] 0 Phone: () - 01/30 CMP Album in g/dL 3.2 5.2 4.1 FINAL [facility], [address] [address] [place] [address] [id number] 0 Phone: () - 01/30 CMP Alkal ine phosp hatas e U/L 46.0 116.0 63 FINAL [facility] [address] [place] [address] [id number] 0 Phone: () - 01/30 CMP ALT/S GPT U/L 7.0 40.0 19 FINAL [place] [address] [facility] [id number] 0 Phone: () - 01/30 CMP AST/S GOT U/L 13.0 40.0 22 FINAL [place] [address] [place] [address] [id number] 0 Phone: () - 01/30 CMP BUN mg/dL 9.0 23.0 22 FINAL [place] [address] [place] [address] [id number] 0 Phone: () - 01/30 CMP Calci um mg/dL 8.7 10.4 9.8 FINAL [place] [address] [id number] 0 Phone: () - 01/30 CMP Chlor vipin mmol/L 96.0 114.0 111 FINAL [place] [address] [id number] 0 Phone: () - 01/30 CMP CO2 [...] of the 96 hour stability window. FINAL [facility], [address] [address] [place] [address] [id number] 0 Phone: () - 01/30 CMP Creat inine mg/dL 0.5 1.2 0.73 FINAL [place] [address] [address] [facility] [address] [place] [address] [id number] 0 Phone: () - 01/30 CMP GFR estim ate ml/min /1.73m ^2 82.3 GFR is calculate d using the CKD-EPI equation. FINAL [place] [address] [address] [facility] [address] [facility] [id number] 0 Phone: () - 01/30 CMP Gluco se mg/dL 73.0 126.0 122 FINAL [place] [address] [address] [facility] [address] [place] [address] [id number] 0 Phone: () - 01/30 CMP Potas sium mmol/L 3.5 5.1 4.8 FINAL [place] [address] [address] [facility] [address] [place] [address] [id number] 0 Phone: () - 01/30 CMP Sodiu m mmol/L 136.0 145.0 140 FINAL [facility], [address] [facility] [address] [place] [address] [id number] 0 Phone: () - 01/30 CMP Bilir ubin, total mg/dL 0.3 1.2 0.3 FINAL [facility] [address] [facility] [address] [place] [address] [id number] 0 Phone: () - 01/30 CMP Total prote in g/dL 5.7 8.2 6.7 FINAL [place] [address] [address] [facility] [address] [place] [address] [id number] 0 Phone: () - 01/30 CBC w/ auto diff WBC K/uL 3.0 8.9 2.3 Low FINAL Lia [facility], [address] [facility] [id number] 0 Phone: () - 01/30 CBC w/ auto diff HGB g/dL 11.3 15.2 11.0 Low FINAL Lia Danny [place] [facility] [place], [address] [place] [id number] 0 Phone: () - 01/30 CBC w/ auto diff PLT K/uL 113.0 364.0 103 Low FINAL [facility] [place], [address] [place] [id number] 0 Phone: () - 01/30 CBC w/ auto diff Dave # (ANC) K/uL 1.6 6.6 2.1 FINAL [facility] [place], [address] [place] [id number] 0 Phone: () - 01/30 CBC w/ auto diff Dave % % 43.0 74.0 89.6 High FINAL [facility] [place], [address] [place] [id number] 0 Phone: () - 01/30 CBC w/ auto diff IG % % 0.0 0.5 0.9 High FINAL [facility] [place], [address] [place] [id number] 0 Phone: () - 01/30 CBC w/ auto diff IG # K/uL 0.0 0.03 0.02 FINAL [facility] [place], [address] [place] [id number] 0 Phone: () - 01/30 CBC w/ auto diff LY % % 14.0 41.0 7.3 Low FINAL [facility] [place], [address] [place] [id number] 0 Phone: () - 01/30 CBC w/ auto diff MO % % 6.0 15.0 2.2 Low FINAL [facility] [place], [address] [place] [id number] 0 Phone: () - 01/30 CBC w/ auto diff EO % % 0.0 7.0 0.0 FINAL [facility] [place], [address] [place] [id number] 0 Phone: () - 01/30 CBC w/ auto diff BA % % 0.0 2.0 0.0 FINAL [facility] [place], [address] [place] [id number] 0 Phone: () - 01/30 CBC w/ auto diff LY # K/uL 0.4 3.6 0.2 Low FINAL [facility] [place], [address] [place] [id number] 0 Phone: () - 01/30 CBC w/ auto diff MO # K/uL 0.2 1.3 0.1 Low FINAL [facility] [place], [address] [place] [id number] 0 Phone: () - 01/30 CBC w/ auto diff EO # K/uL 0.0 0.6 0.0 FINAL [facility] [place], [address] [place] [id number] 0 Phone: () - 01/30 CBC w/ auto diff BA # K/uL 0.0 0.2 0.0 FINAL [facility] [place], [address] [place] [id number] 0 Phone: () - 01/30 CBC w/ auto diff NRBC % #/100W BC 0.0 0.2 0.0 FINAL [facility] [place], [address] [place] [id number] 0 Phone: () - 01/30 CBC w/ auto diff RBC M/uL 3.9 5.1 3.23 Low FINAL Lia [facility] [place], [address] [place] [id number] 0 Phone: () - 01/30 CBC w/ auto diff HCT % 35.0 48.0 32.4 Low FINAL L[facility] [place], [address] [facility] [address] [place] [id number] 0 Phone: () - 01/30 CBC w/ auto diff MCV fL 80.0 104.0 100.3 FINAL [facility] [place], [address] [place] [address] [address] [place] [id number] 0 Phone: () - 01/30 CBC w/ auto diff MCH pg 26.0 35.0 34.1 FINAL [facility] angel[facility] [place], [address] [place] [address] [address] [place] [id number] 0 Phone: () - 01/30 CBC w/ auto diff MCHC g/dL 30.0 35.0 34.0 FINAL [facility] angel[facility] [place], [address] [facility] [address] [place] [id number] 0 Phone: () - 01/30 CBC w/ auto diff MPV fL 9.5 13.4 9.2 Low FINAL [facility] [place], [address] [place] [address] [address] [place] [id number] 0 Phone: () - 01/30 CBC w/ auto diff RDW % 11.4 16.1 14.80 FINAL [facility] [place], [address] [place] [address] [address] [place] [id number] 0 Phone: () - 01/30 CBC w/ auto diff Auto CBC comme nts Slide review to follow FINAL Lia Tolbert [facility] - [place], [address] [place] [address] [address] [place] [id number] 0 Phone: () - 02/17 CMP Album in g/dL 3.2 5.2 3.9 FINAL Oziel Isauro [facility] [place], [address] [place] [id number] 0 Phone: () - 02/17 CMP Alkal ine phosp hatas e U/L 46.0 116.0 57 FINAL Oziel angelo [place] [address] [address] [facility] [address] [id number] Phone: () - 02/17 CMP ALT/S GPT U/L 7.0 40.0 13 FINAL Oziel angelo [place] [address] [id number] 0 Phone: () - 02/17 CMP AST/S GOT U/L 13.0 40.0 19 FINAL Oziel angelo [place] [address] [address] [facility] [address] [id number] 0 Phone: () - 02/17 CMP BUN mg/dL 9.0 23.0 13 FINAL Oziel angelo [place] [address] [id number] 0 Phone: () - 02/17 CMP Calci um mg/dL 8.7 10.4 9.3 FINAL Oziel angelo [place] [address] [address] [facility] [address] [id number] 0 Phone: () - 02/17 CMP Chlor vipin mmol/L 96.0 114.0 111 FINAL Oziel angelo [place] [address] [id number] 0 Phone: () - 02/17 CMP CO2 [...] 96 hour stability window. FINAL Oziel angelo [facility], [employer] [address] [facility] [address] [id number] 0 Phone: () - 02/17 CMP Creat inine mg/dL 0.5 1.2 0.88 FINAL Oziel angelo [place] [address] [address] [facility] [address] [id number] 0 Phone: () - 02/17 CMP GFR estim ate ml/min /1.73m ^2 65.6 GFR is calculate d using the CKD-EPI equation. FINAL Oziel angelo [facility], [employer] [address] [id number] 0 Phone: () - 02/17 CMP Gluco se mg/dL 73.0 126.0 63 Low FINAL Oziel angelo [place] [address] [id number] 0 Phone: () - 02/17 CMP Potas sium mmol/L 3.5 5.1 4.2 FINAL Oziel angelo [place] [address] [id number] 0 Phone: () - 02/17 CMP Sodiu m mmol/L 136.0 145.0 143 FINAL Oziel angelo [place] [address] [id number] 0 Phone: () - 02/17 CMP Bilir ubin, total mg/dL 0.3 1.2 0.3 FINAL Oziel angelo [place] [address] [id number] 0 Phone: () - 02/17 CMP Total prote in g/dL 5.7 8.2 6.4 FINAL Oziel angelo [place] [address] [id number] 0 Phone: () - 02/17 TSH w/ refle x to free T4 TSH uIU/ml 0.32 5.0 3.46 Test performed at [facility] on a [employer] Immunoass ay Analyzer that uses an immunoenz ymometric sandwich assay for analysis. Patient testing should not be performed using multiple kathi amador due to analytica l variation seen between test kathi amador. FINAL Oziel angelo [place] [address] [phone] 0 Phone: () - 02/17 CBC w/ auto diff WBC K/uL 3.0 8.9 3.7 FINAL Oziel angelo [facility], [address] [address] [facility] [id number] Phone: () - 02/17 CBC w/ auto diff HGB g/dL 11.3 15.2 10.2 Low FINAL [facility]iel angel[facility] [place], [address] [place] [id number] 0 Phone: () - 02/17 CBC w/ auto diff PLT K/uL 113.0 364.0 213 FINAL [facility] angel[facility] - [place], [address] [place] [id number] 0 Phone: () - 02/17 CBC w/ auto diff Dave # (ANC) K/uL 1.6 6.6 2.1 FINAL [facility] angel[facility] [place], [address] [facility] [address] [place] [id number] 0 Phone: () - 02/17 CBC w/ auto diff Dave % % 43.0 74.0 57.4 FINAL [facility] angel[facility] [place], [address] [facility] [address] [place] [id number] 0 Phone: () - 02/17 CBC w/ auto diff IG % % 0.0 0.5 0.8 High FINAL [facility]iel angel[facility] - [place], [address] [place] [id number] 0 Phone: () - 02/17 CBC w/ auto diff IG # K/uL 0.0 0.03 0.03 FINAL [facility]iel angel[facility] - [place], [address] [place] [id number] 0 Phone: () - 02/17 CBC w/ auto diff LY % % 14.0 41.0 21.7 FINAL [facility]iel angel[facility] - [place], [address] [place] [id number] 0 Phone: () - 02/17 CBC w/ auto diff MO % % 6.0 15.0 18.5 High FINAL Oziel Tilleyot gi [facility] - [place], [address] [place] [id number] 0 Phone: () - 02/17 CBC w/ auto diff EO % % 0.0 7.0 1.1 FINAL [facility]iel angel[facility] [place], [address] [facility] [address] [place] [id number] 0 Phone: () - 02/17 CBC w/ auto diff BA % % 0.0 2.0 0.5 FINAL Oziel angelo [facility] - [place], [address] [facility] [address] [place] [id number] 0 Phone: () - 02/17 CBC w/ auto diff LY # K/uL 0.4 3.6 0.8 FINAL Oziel angelo [facility] - [place], [address] [facility] [address] [place] [id number] 0 Phone: () - 02/17 CBC w/ auto diff MO # K/uL 0.2 1.3 0.7 FINAL [facility]iel angel[facility] - [place], [address] [facility] [address] [place] [id number] 0 Phone: () - 02/17 CBC w/ auto diff EO # K/uL 0.0 0.6 0.0 FINAL [facility] angel[facility] - [place], [address] [facility] [address] [place] [id number] 0 Phone: () - 02/17 CBC w/ auto diff BA # K/uL 0.0 0.2 0.0 FINAL [facility] angel[facility] - [place], [address] [facility] [address] [place] [id number] 0 Phone: () - 02/17 CBC w/ auto diff NRBC % #/100W BC 0.0 0.2 0.0 FINAL [facility]iel angel[facility] - [place], [address] [facility] [address] [place] [id number] 0 Phone: () - 02/17 CBC w/ auto diff RBC M/uL 3.9 5.1 2.96 Low FINAL Oziel Tolbert a [facility] - [place], [address] [place] [id number] 0 Phone: () - 02/17 CBC w/ auto diff HCT % 35.0 48.0 30.3 Low FINAL Oziel Tilleyot a [facility] - [place], [address] [place] [id number] 0 Phone: () - 02/17 CBC w/ auto diff MCV fL 80.0 104.0 102.4 FINAL [facility]iel Tilleyot a [facility] - [place], [address] [place] [id number] 0 Phone: () - 02/17 CBC w/ auto diff MCH pg 26.0 35.0 34.5 FINAL [facility]iel Tilleyot [facility] - [place], [address] [place] [id number] 0 Phone: () - 02/17 CBC w/ auto diff MCHC g/dL 30.0 35.0 33.7 FINAL [facility] Tilley[facility] - [place], [address] [place] [id number] 0 Phone: () - 02/17 CBC w/ auto diff MPV fL 9.5 13.4 8.5 Low FINAL [facility]iel Til[facility] - [place], [address] [place] [id number] 0 Phone: () - 02/17 CBC w/ auto diff RDW % 11.4 16.1 17.40 High FINAL [facility]iel Til[facility] - [place], [address] [place] [id number] 0 Phone: () - 03/17 CBC w/ auto diff WBC K/uL 3.0 8.9 4.5 FINAL [facility] Tilley[facility] - [place], [address] [place] [id number] 0 Phone: () - 03/17 CBC w/ auto diff HGB g/dL 11.3 15.2 11.6 FINAL [facility]il[facility] - [place], [address] [place] [id number] 0 Phone: () - 03/17 CBC w/ auto diff PLT K/uL 113.0 364.0 213 FINAL [facility] Til[facility] - [place], [address] [place] [id number] 0 Phone: () - 03/17 CBC w/ auto diff Dave # (ANC) K/uL 1.6 6.6 2.6 FINAL [facility] Tilley[facility] - [place], [address] [place] [id number] 0 Phone: () - 03/17 CBC w/ auto diff Dave % % 43.0 74.0 57.9 FINAL [facility]iel Tilley[facility] a [facility] - [place], [address] [place] [id number] 0 Phone: () - 03/17 CBC w/ auto diff IG % % 0.0 0.5 0.4 FINAL Oziel Tolbert a [facility] - [place], [address] [place] [id number] 0 Phone: () - 03/17 CBC w/ auto diff IG # K/uL 0.0 0.03 0.02 FINAL Ozeil Tilleyot a [facility] - [place], [address] [place] [id number] 0 Phone: () - 03/17 CBC w/ auto diff LY % % 14.0 41.0 22.1 FINAL Oziel Tolbert a [facility] - [place], [address] [place] [id number] 0 Phone: () - 03/17 CBC w/ auto diff MO % % 6.0 15.0 12.9 FINAL [facility]iel Tilleyot a [facility] - [place], [address] [place] [id number] 0 Phone: () - 03/17 CBC w/ auto diff EO % % 0.0 7.0 5.8 FINAL [facility] Tilley[facility] a [facility] - [place], [address] [place] [id number] 0 Phone: () - 03/17 CBC w/ auto diff BA % % 0.0 2.0 0.9 FINAL [facility]iel Tilley[facility] a [facility] - [place], [address] [place] [id number] 0 Phone: () - 03/17 CBC w/ auto diff LY # K/uL 0.4 3.6 1.0 FINAL [facility]iel Tilleyot a [facility] - [place], [address] [place] [id number] 0 Phone: () - 03/17 CBC w/ auto diff MO # K/uL 0.2 1.3 0.6 FINAL [facility]iel Tilleyot a [facility] - [place], [address] [place] [id number] 0 Phone: () - 03/17 CBC w/ auto diff EO # K/uL 0.0 0.6 0.3 FINAL [facility]iel Tilleyot a [facility] - [place], [address] [place] [id number] 0 Phone: () - 03/17 CBC w/ auto diff BA # K/uL 0.0 0.2 0.0 FINAL Oziel Tilleyot a [facility] - [place], [address] [place] [id number] 0 Phone: () - 03/17 CBC w/ auto diff NRBC % #/100W BC 0.0 0.2 0.0 FINAL [facility]iel Tilley[facility] a [facility] - [place], [address] [place] [id number] 0 Phone: () - 03/17 CBC w/ auto diff RBC M/uL 3.9 5.1 3.26 Low FINAL [facility]iel Til[facility] a [facility] - [place], [address] [place] [id number] 0 Phone: () - 03/17 CBC w/ auto diff HCT % 35.0 48.0 34.1 Low FINAL [facility] angel[facility] - [place], [address] [place] [id number] 0 Phone: () - 03/17 CBC w/ auto diff MCV fL 80.0 104.0 104.6 High FINAL [facility] [place], [address] [place] [id number] 0 Phone: () - 03/17 CBC w/ auto diff MCH pg 26.0 35.0 35.6 High FINAL [facility] angel[facility] - [place], [address] [place] [id number] 0 Phone: () - 03/17 CBC w/ auto diff MCHC g/dL 30.0 35.0 34.0 FINAL Oziel angel[facility] - [place], [address] [place] [id number] 0 Phone: () - 03/17 CBC w/ auto diff MPV fL 9.5 13.4 8.6 Low FINAL [facility] - [place], [address] [place] [id number] 0 Phone: () - 03/17 CBC w/ auto diff RDW % 11.4 16.1 15.20 FINAL [facility] - [place], [address] [place] [id number] 0 Phone: () - 03/17 CMP Album in g/dL 3.2 5.2 4.1 FINAL [facility] - [place], [address] [place] [id number] 0 Phone: () - 03/17 CMP Alkal ine phosp hatas e U/L 46.0 116.0 54 FINAL Oziel Tilleyot gi [facility] - [place], [address] [place] [id number] 0 Phone: () - 03/17 CMP ALT/S GPT U/L 7.0 40.0 12 FINAL Oziel Tolbert a [facility] - [place], [address] [facility] [id number] 0 Phone: () - 03/17 CMP AST/S GOT U/L 13.0 40.0 20 FINAL Oziel angelo [place] [address] [address] [facility] 100 [facility] [id number] 0 Phone: () - 03/17 CMP BUN mg/dL 9.0 23.0 20 FINAL Oziel angelo [place] [address] [address] [facility] 100 [facility] [id number] 0 Phone: () - 03/17 CMP Calci um mg/dL 8.7 10.4 9.8 FINAL Oziel angelo [place] [address] [id number] 0 Phone: () - 03/17 CMP Chlor vipin mmol/L 96.0 114.0 109 FINAL Oziel angelo [place] [address] [id number] 0 Phone: () - 03/17 CMP CO2 [...] 96 hour stability window. FINAL Oziel angelo [place] [address] [id number] 0 Phone: () - 03/17 CMP Creat inine mg/dL 0.5 1.2 0.90 FINAL Oziel angelo [place] [address] [id number] 0 Phone: () - 03/17 CMP GFR estim ate ml/min /1.73m ^2 63.8 GFR is calculate d using the CKD-EPI equation. FINAL Oziel angelo [place] [address] [id number] 0 Phone: () - 03/17 CMP Gluco se mg/dL 73.0 126.0 87 FINAL [facility] [address] [facility] [address] [id number] 0 Phone: () - 03/17 CMP Potas sium mmol/L 3.5 5.1 4.4 FINAL Oziel angelo [facility] [address] [facility] 100 [facility] [id number] 0 Phone: () - 03/17 CMP Sodiu m mmol/L 136.0 145.0 142 FINAL Oziel angelo [place] [address] [address] [facility] [address] [id number] 0 Phone: () - 03/17 CMP Bilir ubin, total mg/dL 0.3 1.2 0.5 FINAL Oziel angelo [place] [address] [id number] 0 Phone: () - 03/17 CMP Total prote in g/dL 5.7 8.2 6.7 FINAL Oziel angelo [place] [address] [id number] 0 Phone: () - 03/17 TSH w/ refle x to free T4 TSH uIU/ml 0.32 5.0 3.06 Test performed at [facility] on a [employer] Immunoass ay Analyzer that uses an immunoenz ymometric sandwich assay for analysis. Patient testing should not be performed using multiple methodolo gies due to analytica l variation seen between test methodolo ginaun. FINAL Oziel angelo [place] [address] [id number] 0 Phone: () - 04/14 CMP Album in g/dL 3.2 5.2 4.3 FINAL Oziel angelo [place] [address] [address] [facility] [address] [id number] 0 Phone: () - 04/14 CMP Alkal ine phosp hatas e U/L 46.0 116.0 58 FINAL Oziel angelo [place] [address] [address] [facility] [address] [id number] 0 Phone: () - 04/14 CMP ALT/S GPT U/L 7.0 40.0 10 FINAL Oziel angelo [place] [address] [address] [facility] 100 [facility] [id number] 0 Phone: () - 04/14 CMP AST/S GOT U/L 13.0 40.0 21 FINAL Oziel angelo [place] [address] [address] [facility] 100 [facility] [id number] 0 Phone: () - 04/14 CMP BUN mg/dL 9.0 23.0 16 FINAL Oziel angelo [place] [address] [id number] 0 Phone: () - 04/14 CMP Calci um mg/dL 8.7 10.4 10.0 FINAL Oziel angelo [place] [address] [id number] 0 Phone: () - 04/14 CMP Chlor vipin mmol/L 96.0 114.0 109 FINAL Oziel angelo [place] [address] [id number] 0 Phone: () - 04/14 CMP CO2 [...] 96 hour stability window. FINAL Oziel angelo [place] [address] [id number] 0 Phone: () - 04/14 CMP Creat inine mg/dL 0.5 1.2 0.88 FINAL Oziel angelo [place] [address] [id number] 0 Phone: () - 04/14 CMP GFR estim ate ml/min /1.73m ^2 65.6 GFR is calculate d using the CKD-EPI equation. FINAL Oziel angelo [place] [address] [id number] 0 Phone: () - 04/14 CMP Gluco se mg/dL 73.0 126.0 92 FINAL Oziel angelo [place] [address] [facility] [id number] 0 Phone: () - 04/14 CMP Potas sium mmol/L 3.5 5.1 4.4 FINAL Oziel angelo [facility], [address] [facility] [id number] 0 Phone: () - 04/14 CMP Sodiu m mmol/L 136.0 145.0 142 FINAL Oziel angelo [facility], [address] [facility] [id number] 0 Phone: () - 04/14 CMP Bilir ubin, total mg/dL 0.3 1.2 0.5 FINAL Oziel angelo [facility], [address] [facility] [address] [facility] [id number] 0 Phone: () - 04/14 CMP Total prote in g/dL 5.7 8.2 6.9 FINAL Oziel angelo [facility], [address] [facility] [address] [facility] [id number] 0 Phone: () - 04/14 CBC w/ auto diff WBC K/uL 3.0 8.9 5.0 FINAL Oziel angel[facility] [place], [address] [facility] [id number] 0 Phone: () - 04/14 CBC w/ auto diff HGB g/dL 11.3 15.2 12.4 FINAL [facility]iel angel[facility] [place], [address] [facility] [id number] 0 Phone: () - 04/14 CBC w/ auto diff PLT K/uL 113.0 364.0 202 FINAL Oziel angelo [facility] [place], [address] [facility] [place] [id number] 0 Phone: () - 04/14 CBC w/ auto diff Dave # (ANC) K/uL 1.6 6.6 3.4 FINAL Oziel angel[facility] [place], [address] [facility] [id number] 0 Phone: () - 04/14 CBC w/ auto diff Dave % % 43.0 74.0 67.0 FINAL Oziel Tilleyot a [facility] - [place], [address] [place] [id number] 0 Phone: () - 04/14 CBC w/ auto diff IG % % 0.0 0.5 0.2 FINAL Oziel Tilleyot a [facility] - [place], [address] [place] [id number] 0 Phone: () - 04/14 CBC w/ auto diff IG # K/uL 0.0 0.03 0.01 FINAL Oziel Tilleyot a [facility] - [place], [address] [place] [id number] 0 Phone: () - 04/14 CBC w/ auto diff LY % % 14.0 41.0 22.0 FINAL Oziel Tilleyot a [facility] - [place], [address] [place] [id number] 0 Phone: () - 04/14 CBC w/ auto diff MO % % 6.0 15.0 8.4 FINAL Oziel Tilleyot gi [facility] - [place], [address] [place] [id number] 0 Phone: () - 04/14 CBC w/ auto diff EO % % 0.0 7.0 2.0 FINAL Oziel Tilleyot [facility] - [place], [address] [place] [id number] 0 Phone: () - 04/14 CBC w/ auto diff BA % % 0.0 2.0 0.4 FINAL Oziel Tilleyot a [facility] - [place], [address] [place] [id number] 0 Phone: () - 04/14 CBC w/ auto diff LY # K/uL 0.4 3.6 1.1 FINAL Oziel Tilleyot a [facility] - [place], [address] [place] [id number] 0 Phone: () - 04/14 CBC w/ auto diff MO # K/uL 0.2 1.3 0.4 FINAL [facility] angel[facility] - [place], [address] [place] [id number] 0 Phone: () - 04/14 CBC w/ auto diff EO # K/uL 0.0 0.6 0.1 FINAL Oziel angel[facility] - [place], [address] [place] [id number] 0 Phone: () - 04/14 CBC w/ auto diff BA # K/uL 0.0 0.2 0.0 FINAL Oziel angelo [facility] - [place], [address] [place] [id number] 0 Phone: () - 04/14 CBC w/ auto diff NRBC % #/100W BC 0.0 0.2 0.0 FINAL Oziel angel[facility] - [place], [address] [place] [id number] 0 Phone: () - 04/14 CBC w/ auto diff RBC M/uL 3.9 5.1 3.58 Low FINAL Oziel angel[facility] - [place], [address] [place] [id number] 0 Phone: () - 04/14 CBC w/ auto diff HCT % 35.0 48.0 36.8 FINAL Oziel angel[facility] - [place], [address] [place] [id number] 0 Phone: () - 04/14 CBC w/ auto diff MCV fL 80.0 104.0 102.8 FINAL Oziel angelo [facility] - [place], [address] [place] [id number] 0 Phone: () - 04/14 CBC w/ auto diff MCH pg 26.0 35.0 34.6 FINAL Oziel angelo [facility] - [place], [address] [place] [id number] 0 Phone: () - 04/14 CBC w/ auto diff MCHC g/dL 30.0 35.0 33.7 FINAL Oziel angelo [facility] - [place], [facility] [address] [facility] [address] [place] [id number] 0 Phone: () - 04/14 CBC w/ auto diff MPV fL 9.5 13.4 9.4 Low FINAL Oziel Tolbert a [facility] - [place], [facility] [address] [facility] d [address] [place] [id number] 0 Phone: () - 04/14 CBC w/ auto diff RDW % 11.4 16.1 12.10 FINAL Oziel angelo [facility] - [place], [address] [place] [address] d [address] [place] [id number] 0 Phone: () - 04/14 TSH w/ refle x to free T4 TSH uIU/ml 0.32 5.0 0.79 Test performed at [facility] on a [employer] Immunoass ay Analyzer that uses an immunoenz ymometric sandwich assay for analysis. Patient testing should not be performed using multiple methodolo ginaun due to analytica l variation seen between test methodolo gies. FINAL Oziel angelo [facility] - [place], [address] [place] [id number] 0 Phone: () - 04/14 [facility] other lab See wood heel attacher d 04/30 UA Micro scopi c WBC (ua) 0.0 2.0 21-50 Abnor mal FINAL Oziel angelo [facility] - [place], [address] [place] [address] d [address] [place] [id number] 0 Phone: () - 04/30 UA Micro scopi c RBC (ua) 0.0 2.0 3-5 Abnor mal FINAL Oziel angel[facility] - [place], [facility] [address] [facility] [address] [place] [id number] 0 Phone: () - 04/30 UA Micro scopi c Epith elial cells (ua) Moderat e 6-10 Abnor mal FINAL Oziel angel[facility] - [place], [facility] [address] [place] [id number] 0 Phone: () - 04/30 UA Micro scopi c Bacte aniya (ua) Few Abnor mal FINAL Oziel Tilleyot a [facility] - [place], [address] [place] [id number] 0 Phone: () - 04/30 UA Micro scopi c Mucus (ua) Negativ e FINAL Oziel Tilleyot a [facility] - [place], [address] [place] [id number] 0 Phone: () - 04/30 UA Micro scopi c Casts , urine None FINAL Oziel Tilleyot a [facility] - [place], [address] [place] [id number] 0 Phone: () - 04/30 UA Micro scopi c Cryst als (ua) None FINAL Oziel Tilleyot a [facility] - [place], [address] [place] [id number] 0 Phone: () - 04/30 UA Micro scopi c UA comme nt 1 Micro Positiv e-Cultu re Ordered Microsc opic perform ed on un-spun urine FINAL Oziel Tilley[facility] - [place], [address] [place] [id number] 0 Phone: () - 04/30 Color (ua) Yellow FINAL Oziel Tilleyot [facility] - [place], [address] [place] [id number] 0 Phone: () - 04/30 Appea serena (ua) Cloudy Abnor mal FINAL Oziel [facility]ley[facility] - [place], [address] [place] [id number] 0 Phone: () - 04/30 Gluco se (ua), qual Negativ e FINAL Oziel [facility] - [place], [address] [place] [id number] 0 Phone: () - 04/30 Bilir ubin (ua) Negativ e FINAL Oziel [facility] - [place], [address] [place] [id number] 0 Phone: () - 04/30 Urina lysis , aceto ne or keton e rodriguez s measu remen t Negativ e FINAL Oziel [facility] - [place], [address] [place] [id number] 0 Phone: () - 04/30 Speci fic gravi ty (ua) 1.005 1.02 1.020 FINAL Oziel [facility] - [place], [address] [place] [id number] 0 Phone: () - 04/30 Blood (ua) 3+-Larg e Abnor mal FINAL Oziel [facility] - [place], [address] [place] [id number] 0 Phone: () - 04/30 pH (ua) 5.0 8.0 6.0 FINAL Oziel Tilleyot [facility] - [place], [address] [place] [id number] 0 Phone: () - 04/30 Prote in (ua) 1+ Abnor mal FINAL Oziel T[facility]ley[facility] - [place], [address] [place] [id number] 0 Phone: () - 04/30 Urobi linog en (ua) 0.2 1.0 0.2 FINAL Oziel [facility] - [place], [address] [place] [id number] 0 Phone: () - 04/30 Nitri te (ua) Negativ e FINAL Oziel [facility] - [place], [address] [place] [id number] 0 Phone: () - 04/30 Leuko cyte peter ase (ua), qual 2+-Mode rate Abnor mal FINAL Oziel T[facility]ley[facility] - [place], [address] [place] [id number] 0 Phone: () - 04/30 UA comme nt 1 Dipstic k Positiv e-Micro Ordered FINAL Oziel angelo [facility] - [place], [address] [place] [id number] 0 Phone: () - 04/30 Urine cultu re panel Final repor t, urine cultu re SEE RESULTS BELOW SOURCE: Urine VoidBacte aniya Identific ation in Isolate by Culture:5 0,000-100 ,000 CFU/mL of multiple organisms , probable contamina ntsTest Performed by:[facility] [address] - [facility] [place], [place] [address]Kesu e : FINAL Oziel Box 05/28 CBC w/ auto diff WBC K/uL 3.0 8.9 6.9 FINAL Oziel angelo [facility] - [place], [address] [place] [id number] 0 Phone: () - 05/28 CBC w/ auto diff HGB g/dL 11.3 15.2 13.0 FINAL Oziel angelo [facility] - [place], [address] [place] [id number] 0 Phone: () - 05/28 CBC w/ auto diff PLT K/uL 113.0 364.0 183 FINAL Oziel angelo [facility] - [place], [address] [place] [id number] 0 Phone: () - 05/28 CBC w/ auto diff Dave # (ANC) K/uL 1.6 6.6 6.0 FINAL Oziel angelo [facility] - [place], [address] [place] [id number] 0 Phone: () - 05/28 CBC w/ auto diff Dave % % 43.0 74.0 86.6 High FINAL Oziel [facility] - [place], [address] [place] [id number] 0 Phone: () - 05/28 CBC w/ auto diff IG % % 0.0 0.5 0.4 FINAL Oziel [facility] - [place], [address] [place] [id number] 0 Phone: () - 05/28 CBC w/ auto diff IG # K/uL 0.0 0.03 0.03 FINAL Oziel [facility] - [place], [address] [place] [id number] 0 Phone: () - 05/28 CBC w/ auto diff LY % % 14.0 41.0 9.1 Low FINAL Oziel [facility] - [place], [address] [place] [id number] 0 Phone: () - 05/28 CBC w/ auto diff MO % % 6.0 15.0 3.5 Low FINAL Oz[facility] - [place], [address] [place] [id number] 0 Phone: () - 05/28 CBC w/ auto diff EO % % 0.0 7.0 0.1 FINAL [facility] - [place], [address] [place] [id number] 0 Phone: () - 05/28 CBC w/ auto diff BA % % 0.0 2.0 0.3 FINAL [facility] - [place], [address] [place] [id number] 0 Phone: () - 05/28 CBC w/ auto diff LY # K/uL 0.4 3.6 0.6 FINAL [facility] - [place], [address] [place] [id number] 0 Phone: () - 05/28 CBC w/ auto diff MO # K/uL 0.2 1.3 0.2 FINAL [facility] - [place], [address] [place] [id number] 0 Phone: () - 05/28 CBC w/ auto diff EO # K/uL 0.0 0.6 0.0 FINAL Oziel angelo [facility] - [place], [address] [place] [id number] 0 Phone: () - 05/28 CBC w/ auto diff BA # K/uL 0.0 0.2 0.0 FINAL Oziel angelo [facility] - [place], [address] [place] [id number] 0 Phone: () - 05/28 CBC w/ auto diff NRBC % #/100W BC 0.0 0.2 0.0 FINAL Oziel angelo [facility] - [place], [address] [place] [id number] 0 Phone: () - 05/28 CBC w/ auto diff RBC M/uL 3.9 5.1 3.83 Low FINAL Oziel angelo [facility] - [place], [address] [place] [id number] 0 Phone: () - 05/28 CBC w/ auto diff HCT % 35.0 48.0 38.6 FINAL Oz[facility] angel[facility] - [place], [address] [place] [id number] 0 Phone: () - 05/28 CBC w/ auto diff MCV fL 80.0 104.0 100.8 FINAL [facility] [place] [place], [address] [place] [id number] 0 Phone: () - 05/28 CBC w/ auto diff MCH pg 26.0 35.0 33.9 FINAL Oziel angelo [facility] - [place], [address] [place] [id number] 0 Phone: () - 05/28 CBC w/ auto diff MCHC g/dL 30.0 35.0 33.7 FINAL Oziel Tilleyot a [facility] - [place], [address] [place] [id number] 0 Phone: () - 05/28 CBC w/ auto diff MPV fL 9.5 13.4 9.0 Low FINAL [facility], [address] [facility] [address] [facility] [place] [place] [phone] 0 Phone: () - 05/28 CBC w/ auto diff RDW % 11.4 16.1 12.10 FINAL [facility], [address] [facility] [address] [facility] [id number] 0 Phone: () - 05/28 CMP Alkal ine phosp hatas e U/L 46.0 116.0 45 Low FINAL Oziel angelo [place] [address] [place] [id number] 0 Phone: () - 05/28 CMP ALT/S GPT U/L 7.0 40.0 26 FINAL Oziel angelo [place] [address] [place] [address] [id number] 0 Phone: () - 05/28 CMP AST/S GOT U/L 13.0 40.0 24 FINAL Oziel angelo [place] [address] [address] [facility] [address] [id number] 0 Phone: () - 05/28 CMP BUN mg/dL 9.0 23.0 18 FINAL Oziel angelo [place] [address] [address] [facility] [address] [id number] 0 Phone: () - 05/28 CMP Calci um mg/dL 8.7 10.4 9.8 FINAL Oziel angelo [place] [address] [address] [facility] [address] [id number] 0 Phone: () - 05/28 CMP Chlor vipin mmol/L 96.0 114.0 108 FINAL Oziel angelo [place] [address] [address] [facility] [address] [id number] 0 Phone: () - 05/28 CMP CO2 [...] 96 hour stability window. FINAL Oziel angelo [place] [address] [id number] 0 Phone: () - 05/28 CMP Creat inine mg/dL 0.5 1.2 0.98 FINAL Oziel angelo [address] [id number] 0 Phone: () - 05/28 CMP GFR estim ate ml/min /1.73m ^2 61.2 GFR is calculate d using the CKD-EPI equation. FINAL Oziel angelo [address] [id number] 0 Phone: () - 05/28 CMP Gluco se mg/dL 73.0 126.0 111 FINAL Oziel angelo [address] [id number] 0 Phone: () - 05/28 CMP Potas sium mmol/L 3.5 5.1 4.5 FINAL Oziel angelo [address] [id number] 0 Phone: () - 05/28 CMP Sodiu m mmol/L 136.0 145.0 144 FINAL Oziel angelo [address] [id number] 0 Phone: () - 05/28 CMP Bilir ubin, total mg/dL 0.3 1.2 0.4 FINAL Oziel angelo [address] [id number] 0 Phone: () - 05/28 CMP Total prote in g/dL 5.7 8.2 6.3 FINAL Oziel angelo [place] [address] [id number] 0 Phone: () - 05/28 CMP Album in g/dL 3.2 5.2 4.2 FINAL Oziel angelo [address] [facility] [id number] 0 Phone: () - 05/28 TSH w/ refle x to free T4 TSH uIU/ml 0.32 5.0 1.08 Test performed at [facility] on a [employer] 2000 Immunoass ay Analyzer that uses an immunoenz ymometric sandwich assay for analysis. Patient testing should not be performed using multiple methodolo gies due to analytica l variation seen between test methodolo gies. FINAL Oziel angelo Oncology - [facility] [address] [facility] [address] [facility] [phone] 0 Phone: () - 05/28 Speci men Sourc e Oral FINAL Oziel Box 05/28 HSV 1, PCR Negativ e FINAL Oziel Box 05/28 HSV 2, PCR Negativ e --------- --------- -ADDITION AL INFORMATI ON------- --------- ---This test was developed and its performan ce character isticsdet ermined by [facility] in a manner consisten t with [facility] center[facility] rements. This test has not been cleared or approved bythe U.S. Food and Drug Administr ation.Farrah t Performed by:[facility] [place] [id number] Director: Kenneth Alvarenga M.D. Ph.D.; CLIA# [id number] FINAL Oziel Box 05/30 [facility] other lab See attache hughes 07/02 T4, free panel T4, free ng/dL 0.7 1.8 0.86 Test performed at [facility] on a [employer] 2000 Immunoass ay Analyzer that uses an immunoenz ymometric sandwich assay for analysis. Patient testing should not be performed using multiple methodolo gies due to analytica l variation seen between test methodolo gies. FINAL Oziel angelo [facility] - [place], [address] [facility] [address] [facility] [id number] 0 Phone: () - 07/02 TSH w/ refle x to free T4 TSH uIU/ml 0.32 5.0 6.12 High Test performed at [facility] on a [employer] 2000 Immunoass ay Analyzer that uses an immunoenz ymometric sandwich assay for analysis. Patient testing should not be performed using multiple methodharley amador due to analytica l variation seen between test methodharley amador. FINAL Oziel angelo [facility] - [place], [address] [place] [id number] 0 Phone: () - 07/02 CBC w/ auto diff WBC K/uL 3.0 8.9 5.0 FINAL Oziel angelo [facility] - [place], [address] [place] [id number] 0 Phone: () - 07/02 CBC w/ auto diff HGB g/dL 11.3 15.2 12.6 FINAL Oziel angelo [facility] - [place], [address] [place] [id number] 0 Phone: () - 07/02 CBC w/ auto diff PLT K/uL 113.0 364.0 232 FINAL Oziel angelo [facility] - [place], [address] [place] [id number] 0 Phone: () - 07/02 CBC w/ auto diff Dave # (ANC) K/uL 1.6 6.6 3.2 FINAL Oziel angelo [facility] - [place], [address] [place] [id number] 0 Phone: () - 07/02 CBC w/ auto diff Dave % % 43.0 74.0 63.5 FINAL Oziel angelo [facility] - [place], [address] [place] [id number] 0 Phone: () - 07/02 CBC w/ auto diff IG % % 0.0 0.5 0.2 FINAL Oziel angelo [facility] - [place], [address] [place] [id number] 0 Phone: () - 07/02 CBC w/ auto diff IG # K/uL 0.0 0.03 0.01 FINAL Oziel angelo [facility] - [place], [address] [place] [id number] 0 Phone: () - 07/02 CBC w/ auto diff LY % % 14.0 41.0 24.1 FINAL Oziel angelo [facility] - [place], [address] [place] [id number] 0 Phone: () - 07/02 CBC w/ auto diff MO % % 6.0 15.0 9.4 FINAL Oziel angelo [facility] - [place], [address] [place] [id number] 0 Phone: () - 07/02 CBC w/ auto diff EO % % 0.0 7.0 2.2 FINAL Oziel angelo [facility] - [place], [address] [place] [id number] 0 Phone: () - 07/02 CBC w/ auto diff BA % % 0.0 2.0 0.6 FINAL Oziel angelo [facility] - [place], [address] [place] [id number] 0 Phone: () - 07/02 CBC w/ auto diff LY # K/uL 0.4 3.6 1.2 FINAL Oziel angelo [facility] - [place], [address] [place] [id number] 0 Phone: () - 07/02 CBC w/ auto diff MO # K/uL 0.2 1.3 0.5 FINAL Oziel angelo [facility] - [place], [address] [place] [id number] 0 Phone: () - 07/02 CBC w/ auto diff EO # K/uL 0.0 0.6 0.1 FINAL Oziel angelo [facility] - [place], [address] [place] [id number] 0 Phone: () - 07/02 CBC w/ auto diff BA # K/uL 0.0 0.2 0.0 FINAL Oziel Tilleyot a [facility] - [place], [address] [place] [id number] 0 Phone: () - 07/02 CBC w/ auto diff NRBC % #/100W BC 0.0 0.2 0.0 FINAL Oziel Tilleyot a [facility] - [place], [address] [place] [id number] 0 Phone: () - 07/02 CBC w/ auto diff RBC M/uL 3.9 5.1 3.86 Low FINAL Oziel Tilleyot a [facility] - [place], [address] [place] [id number] 0 Phone: () - 07/02 CBC w/ auto diff HCT % 35.0 48.0 37.7 FINAL Oziel Tilleyot a [facility] - [place], [address] [place] [id number] 0 Phone: () - 07/02 CBC w/ auto diff MCV fL 80.0 104.0 97.7 FINAL Oziel Tilleyot a [facility] - [place], [address] [place] [id number] 0 Phone: () - 07/02 CBC w/ auto diff MCH pg 26.0 35.0 32.6 FINAL Oziel Tilleyot a [facility] - [place], [address] [place] [id number] 0 Phone: () - 07/02 CBC w/ auto diff MCHC g/dL 30.0 35.0 33.4 FINAL Oziel Tilleyot a [facility] - [place], [address] [place] [id number] 0 Phone: () - 07/02 CBC w/ auto diff MPV fL 9.5 13.4 9.0 Low FINAL Oziel Tilleyot a [facility] - [place], [address] [place] [id number] 0 Phone: () - 07/02 CBC w/ auto diff RDW % 11.4 16.1 13.10 FINAL Oziel Tilleyot a [facility] - [place], [address] [facility] [place] [id number] 0 Phone: () - 07/02 CMP Album in g/dL 3.2 5.2 4.2 FINAL Oziel angelo [facility], [address] [place] [address] [id number] 0 Phone: () - 07/02 CMP Alkal ine phosp hatas e U/L 46.0 116.0 52 FINAL Oziel angelo [facility] [address] [facility] [address] [place] [address] [id number] 0 Phone: () - 07/02 CMP ALT/S GPT U/L 7.0 40.0 18 FINAL Oziel angelo [place] [address] [id number] 0 Phone: () - 07/02 CMP AST/S GOT U/L 13.0 40.0 22 FINAL Oziel angelo [place] [address] [address] [facility] [address] [id number] 0 Phone: () - 07/02 CMP BUN mg/dL 9.0 23.0 23 FINAL Oziel angelo [facility] [address] [facility] [address] [id number] 0 Phone: () - 07/02 CMP Calci um mg/dL 8.7 10.4 9.9 FINAL Oziel angelo [facility] [address] [facility] [address] [id number] 0 Phone: () - 07/02 CMP Chlor vipin mmol/L 96.0 114.0 110 FINAL Oziel angelo [facility], [address] [facility] [address] [id number] 0 Phone: () - 07/02 CMP CO2 [...] 96 hour stability window. FINAL Oziel angelo [facility], [address] [id number] 0 Phone: () - 07/02 CMP Creat inine mg/dL 0.5 1.2 1.02 FINAL Oziel angelo [place] [address] [id number] 0 Phone: () - 07/02 CMP GFR estim ate ml/min /1.73m ^2 58.3 Low GFR is calculate d using the CKD-EPI equation. FINAL Oziel angelo [address] [id number] 0 Phone: () - 07/02 CMP Gluco se mg/dL 73.0 126.0 72 Low FINAL Oziel angelo [address] [id number] 0 Phone: () - 07/02 CMP Potas sium mmol/L 3.5 5.1 4.2 FINAL Oziel angelo [address] [id number] 0 Phone: () - 07/02 CMP Sodiu m mmol/L 136.0 145.0 145 FINAL Oziel angelo [place] [address] [id number] 0 Phone: () - 07/02 CMP Bilir ubin, total mg/dL 0.3 1.2 0.5 FINAL Oziel angelo [place] [address] [id number] 0 Phone: () - 07/02 CMP Total prote in g/dL 5.7 8.2 6.5 FINAL Oziel angelo [place] [address] [id number] 0 Phone: () - 07/30 TSH w/ refle x to free T4 TSH uIU/ml 0.32 5.0 4.12 Test performed at [facility] on a [employer] Immunoass ay Analyzer that uses an immunoenz ymometric sandwich assay for analysis. Patient testing should not be performed using multiple kathi amador due to analytica l variation seen between test kathi amador. FINAL Oziel Box [place] [address] [facility] [address] [facility] [id number] 0 Phone: () - 07/30 CMP Album in g/dL 3.2 5.2 4.3 FINAL Oziel angelo [facility] [address] [facility] 100 [facility] [id number] 0 Phone: () - 07/30 CMP Alkal ine phosp hatas e U/L 46.0 116.0 66 FINAL Oziel angelo [place] [address] [facility] [id number] 0 Phone: () - 07/30 CMP ALT/S GPT U/L 7.0 40.0 15 FINAL Oziel angelo [place] [address] [address] [facility] [address] [id number] 0 Phone: () - 07/30 CMP AST/S GOT U/L 13.0 40.0 22 FINAL Oziel angelo [place] [address] [address] [facility] [address] [id number] 0 Phone: () - 07/30 CMP BUN mg/dL 9.0 23.0 18 FINAL Oziel angelo [place] [address] [id number] 0 Phone: () - 07/30 CMP Calci um mg/dL 8.7 10.4 9.7 FINAL Oziel angelo [facility] [address] [facility] [address] [id number] 0 Phone: () - 07/30 CMP Chlor vipin mmol/L 96.0 114.0 110 FINAL Oziel angelo [facility] [address] [id number] 0 Phone: () - 07/30 CMP CO2 [...] 96 hour stability window. FINAL Oziel angelo [facility], [address] [facility] [address] [id number] 0 Phone: () - 07/30 CMP Creat inine mg/dL 0.5 1.2 0.94 FINAL Oziel angelo [place] [address] [id number] 0 Phone: () - 07/30 CMP GFR estim ate ml/min /1.73m ^2 64.3 GFR is calculate d using the CKD-EPI equation. FINAL Oziel angelo [place] [address] [id number] 0 Phone: () - 07/30 CMP Gluco se mg/dL 73.0 126.0 108 FINAL Oziel angelo [place] [address] [id number] 0 Phone: () - 07/30 CMP Potas sium mmol/L 3.5 5.1 4.6 FINAL Oziel angelo [place] [address] [id number] 0 Phone: () - 07/30 CMP Sodiu m mmol/L 136.0 145.0 143 FINAL Oziel angelo [place] [address] [id number] 0 Phone: () - 07/30 CMP Bilir ubin, total mg/dL 0.3 1.2 0.3 FINAL Oziel angelo [place] [address] [id number] 0 Phone: () - 07/30 CMP Total prote in g/dL 5.7 8.2 6.4 FINAL Oziel angelo [place] [address] [id number] 0 Phone: () - 07/30 CBC w/ auto diff WBC K/uL 3.0 8.9 6.0 FINAL Oziel angelo [facility], [address] [facility] [id number] 0 Phone: () - 07/30 CBC w/ auto diff HGB g/dL 11.3 15.2 11.2 Low FINAL Oziel [facility] [place] [facility] - [place], [address] [place] [id number] 0 Phone: () - 07/30 CBC w/ auto diff PLT K/uL 113.0 364.0 220 FINAL Oziel Tilleyot a [facility] - [place], [address] [place] [id number] 0 Phone: () - 07/30 CBC w/ auto diff Dave # (ANC) K/uL 1.6 6.6 5.0 FINAL Oziel Tilleyot a [facility] - [place], [address] [place] [id number] 0 Phone: () - 07/30 CBC w/ auto diff Dave % % 43.0 74.0 84.4 High FINAL Oziel Tilleyot a [facility] - [place], [address] [place] [id number] 0 Phone: () - 07/30 CBC w/ auto diff IG % % 0.0 0.5 0.2 FINAL Oziel Tilleyot a [facility] - [place], [address] [place] [id number] 0 Phone: () - 07/30 CBC w/ auto diff IG # K/uL 0.0 0.03 0.01 FINAL Oziel Tilleyot a [facility] - [place], [address] [place] [id number] 0 Phone: () - 07/30 CBC w/ auto diff LY % % 14.0 41.0 10.4 Low FINAL Oziel Tilleyot a [facility] - [place], [address] [place] [id number] 0 Phone: () - 07/30 CBC w/ auto diff MO % % 6.0 15.0 4.4 Low FINAL Oziel Tilleyot a [facility] - [place], [address] [place] [id number] 0 Phone: () - 07/30 CBC w/ auto diff EO % % 0.0 7.0 0.3 FINAL Oziel Tilleyot a [facility] - [place], [address] [place] [id number] 0 Phone: () - 07/30 CBC w/ auto diff BA % % 0.0 2.0 0.3 FINAL Oziel Tilleyot a [facility] - [place], [address] [place] [id number] 0 Phone: () - 07/30 CBC w/ auto diff LY # K/uL 0.4 3.6 0.6 FINAL Oziel Tilleyot a [facility] - [place], [address] [place] [id number] 0 Phone: () - 07/30 CBC w/ auto diff MO # K/uL 0.2 1.3 0.3 FINAL Oziel Tilleyot a [facility] - [place], [address] [place] [id number] 0 Phone: () - 07/30 CBC w/ auto diff EO # K/uL 0.0 0.6 0.0 FINAL Oziel Tilleyot a [facility] - [place], [address] [place] [id number] 0 Phone: () - 07/30 CBC w/ auto diff BA # K/uL 0.0 0.2 0.0 FINAL Oziel Tilleyot a [facility] - [place], [address] [place] [id number] 0 Phone: () - 07/30 CBC w/ auto diff NRBC % #/100W BC 0.0 0.2 0.0 FINAL Oziel Tilley[facility] a [facility] - [place], [address] [place] [id number] 0 Phone: () - 07/30 CBC w/ auto diff RBC M/uL 3.9 5.1 3.39 Low FINAL Oziel Tilley[facility] a [facility] - [place], [address] [place] [id number] 0 Phone: () - 07/30 CBC w/ auto diff HCT % 35.0 48.0 34.0 Low FINAL Oziel angelo [facility] - [place], [address] [place] [id number] 0 Phone: () - 07/30 CBC w/ auto diff MCV fL 80.0 104.0 100.3 FINAL Oziel angelo [facility] - [place], [address] [place] [id number] 0 Phone: () - 07/30 CBC w/ auto diff MCH pg 26.0 35.0 33.0 FINAL Oziel Tilleyot gi [facility] - [place], [address] [place] [id number] 0 Phone: () - 07/30 CBC w/ auto diff MCHC g/dL 30.0 35.0 32.9 FINAL Oziel angelo [facility] - [place], [address] [place] [id number] 0 Phone: () - 07/30 CBC w/ auto diff MPV fL 9.5 13.4 9.0 Low FINAL Oziel angelo [facility] - [place], [address] [place] [id number] 0 Phone: () - 07/30 CBC w/ auto diff RDW % 11.4 16.1 14.60 FINAL Oziel angelo [facility] - [place], [address] [place] [id number] 0 Phone: () - 07/30 Hepat itis C antib taylor panel HCV Ab, S Negativ e Signal-to -cutoff ratio is <1.00.Farrah t Performed by:[facility] [place] [address] [id number] Director: Kenneth Alvarenga M.D. Ph.D.; CLIA# [id number] FINAL Oziel Box 08/27 T4, free panel T4, free ng/dL 0.7 1.8 0.69 Low Test performed at [facility] on a [employer] Immunoass ay Analyzer that uses an immunoenz ymometric sandwich assay for analysis. Patient testing should not be performed using multiple kathi amador due to analytica l variation seen between test methodharley amador. FINAL Oziel angelo [facility] - [place], [address] [place] [id number] 0 Phone: () - 08/27 CBC w/ auto diff WBC K/uL 3.0 8.9 4.4 FINAL Oziel angelo [facility] - [place], [address] [place] [id number] 0 Phone: () - 08/27 CBC w/ auto diff HGB g/dL 11.3 15.2 10.5 Low FINAL Oziel angelo [facility] - [place], [address] [place] [id number] 0 Phone: () - 08/27 CBC w/ auto diff PLT K/uL 113.0 364.0 226 FINAL Oziel angelo [facility] - [place], [address] [place] [id number] 0 Phone: () - 08/27 CBC w/ auto diff Dave # (ANC) K/uL 1.6 6.6 2.5 FINAL Oziel angelo [facility] - [place], [address] [place] [id number] 0 Phone: () - 08/27 CBC w/ auto diff Dave % % 43.0 74.0 56.5 FINAL Oziel angelo [facility] - [place], [address] [place] [id number] 0 Phone: () - 08/27 CBC w/ auto diff IG % % 0.0 0.5 0.2 FINAL Oziel angelo [facility] - [place], [address] [place] [id number] 0 Phone: () - 08/27 CBC w/ auto diff IG # K/uL 0.0 0.03 0.01 FINAL Oziel angelo [facility] - [place], [address] [place] [id number] 0 Phone: () - 08/27 CBC w/ auto diff LY % % 14.0 41.0 29.6 FINAL Oziel T[facility]ley[facility] a [facility] - [place], [address] [place] [id number] 0 Phone: () - 08/27 CBC w/ auto diff MO % % 6.0 15.0 9.3 FINAL Oziel [facility] - [place], [address] [place] [id number] 0 Phone: () - 08/27 CBC w/ auto diff EO % % 0.0 7.0 3.9 FINAL Oziel [facility] - [place], [address] [place] [id number] 0 Phone: () - 08/27 CBC w/ auto diff BA % % 0.0 2.0 0.5 FINAL Oziel [facility] - [place], [address] [place] [id number] 0 Phone: () - 08/27 CBC w/ auto diff LY # K/uL 0.4 3.6 1.3 FINAL Oziel [facility] - [place], [address] [place] [id number] 0 Phone: () - 08/27 CBC w/ auto diff MO # K/uL 0.2 1.3 0.4 FINAL Oziel [facility] - [place], [address] [place] [id number] 0 Phone: () - 08/27 CBC w/ auto diff EO # K/uL 0.0 0.6 0.2 FINAL Oziel [facility] - [place], [address] [place] [id number] 0 Phone: () - 08/27 CBC w/ auto diff BA # K/uL 0.0 0.2 0.0 FINAL Oziel [facility] - [place], [address] [place] [id number] 0 Phone: () - 08/27 CBC w/ auto diff NRBC % #/100W BC 0.0 0.2 0.0 FINAL Oziel [facility] - [place], [address] [place] [id number] 0 Phone: () - 08/27 CBC w/ auto diff RBC M/uL 3.9 5.1 3.17 Low FINAL Oziel [facility] - [place], [address] [place] [id number] 0 Phone: () - 08/27 CBC w/ auto diff HCT % 35.0 48.0 32.0 Low FINAL Oziel Tolbert a [facility] - [place], [address] [place] [id number] 0 Phone: () - 08/27 CBC w/ auto diff MCV fL 80.0 104.0 100.9 FINAL Oziel [facility] - [place], [address] [place] [id number] 0 Phone: () - 08/27 CBC w/ auto diff MCH pg 26.0 35.0 33.1 FINAL Oziel T[facility] - [place], [address] [place] [id number] 0 Phone: () - 08/27 CBC w/ auto diff MCHC g/dL 30.0 35.0 32.8 FINAL Oziel [facility] - [place], [address] [place] [id number] 0 Phone: () - 08/27 CBC w/ auto diff MPV fL 9.5 13.4 9.1 Low FINAL Oziel [facility] - [place], [address] [place] [id number] 0 Phone: () - 08/27 CBC w/ auto diff RDW % 11.4 16.1 13.80 FINAL Oziel [facility] - [place], [address] [place] [id number] 0 Phone: () - 08/27 CMP Album in g/dL 3.2 5.2 4.0 FINAL Oziel angelo [facility], [address] [place] [address] [id number] 0 Phone: () - 08/27 CMP Alkal ine phosp hatas e U/L 46.0 116.0 71 FINAL Oziel angelo [facility] [address] [facility] [address] [id number] 0 Phone: () - 08/27 CMP ALT/S GPT U/L 7.0 40.0 11 FINAL Oziel angelo [place] [address] [address] [facility] [address] [id number] 0 Phone: () - 08/27 CMP AST/S GOT U/L 13.0 40.0 18 FINAL Oziel angelo [place] [address] [address] [facility] [address] [id number] 0 Phone: () - 08/27 CMP BUN mg/dL 9.0 23.0 16 FINAL Oziel angelo [place] [address] [address] [facility] [address] [id number] 0 Phone: () - 08/27 CMP Calci um mg/dL 8.7 10.4 9.5 FINAL Oziel angelo [place] [address] [address] [facility] [address] [id number] 0 Phone: () - 08/27 CMP Chlor vipin mmol/L 96.0 114.0 110 FINAL Oziel angelo [place] [address] [id number] 0 Phone: () - 08/27 CMP CO2 [...] 96 hour stability window. FINAL Oziel angelo [facility], [employer] [address] [id number] 0 Phone: () - 08/27 CMP Creat inine mg/dL 0.5 1.2 0.84 FINAL Oziel angelo [address] [id number] 0 Phone: () - 08/27 CMP GFR estim ate ml/min /1.73m ^2 73.5 GFR is calculate d using the CKD-EPI equation. FINAL Oziel angelo [address] [id number] 0 Phone: () - 08/27 CMP Gluco se mg/dL 73.0 126.0 84 FINAL Oziel angelo [address] [id number] 0 Phone: () - 08/27 CMP Potas sium mmol/L 3.5 5.1 4.4 FINAL Oziel angelo [address] [id number] 0 Phone: () - 08/27 CMP Sodiu m mmol/L 136.0 145.0 142 FINAL Oziel angelo [address] [id number] 0 Phone: () - 08/27 CMP Bilir ubin, total mg/dL 0.3 1.2 0.3 FINAL Oziel angelo [address] [id number] 0 Phone: () - 08/27 CMP Total prote in g/dL 5.7 8.2 6.1 FINAL Oziel angelo [address] [id number] 0 Phone: () - 08/27 TSH w/ refle x to free T4 TSH uIU/ml 0.32 5.0 6.32 High Test performed at [facility] on a [employer] Immunoass ay Analyzer that uses an immunoenz ymometric sandwich assay for analysis. Patient testing should not be performed using multiple methodharley amador due to analytica l variation seen between test methodharley amador. FINAL Oziel angelo [place] [address] [place] [id number] 0 Phone: () - 09/26 TSH w/ refle x to free T4 TSH uIU/ml 0.32 5.0 1.33 Test performed at [facility] on a [employer] 2000 Immunoass ay Analyzer that uses an immunoenz ymometric sandwich assay for analysis. Patient testing should not be performed using multiple methodolo gies due to analytica l variation seen between test methodolo gies. FINAL Oziel angelo [address] [phone] 0 Phone: () - 09/26 CMP Album in g/dL 3.2 5.2 4.3 FINAL Oziel Tolbert [address] [id number] 0 Phone: () - 09/26 CMP Alkal ine phosp hatas e U/L 46.0 116.0 65 FINAL Oziel angelo [address] [id number] 0 Phone: () - 09/26 CMP ALT/S GPT U/L 7.0 40.0 8 FINAL Oziel angelo [place] [address] [id number] 0 Phone: () - 09/26 CMP AST/S GOT U/L 13.0 40.0 17 FINAL Oziel angelo [place] [address] [id number] 0 Phone: () - 09/26 CMP BUN mg/dL 9.0 23.0 21 FINAL Oziel angelo [place] [address] [address] [facility] [address] [id number] 0 Phone: () - 09/26 CMP Calci um mg/dL 8.7 10.4 9.2 FINAL Oziel angelo [place] [address] [id number] 0 Phone: () - 09/26 CMP Chlor vipin mmol/L 96.0 114.0 111 FINAL Oziel angelo [place] [address] [address] [facility] [address] [id number] 0 Phone: () - 09/26 CMP CO2 [...] 96 hour stability window. FINAL Oziel angelo [facility], [address] [id number] 0 Phone: () - 09/26 CMP Creat inine mg/dL 0.5 1.2 0.79 FINAL Oziel angelo [place] [address] [id number] 0 Phone: () - 09/26 CMP GFR estim ate ml/min /1.73m ^2 79.1 GFR is calculate d using the CKD-EPI equation. FINAL zOiel angelo [place] [address] [id number] 0 Phone: () - 09/26 CMP Gluco se mg/dL 73.0 126.0 83 FINAL Oziel angelo [place] [address] [id number] 0 Phone: () - 09/26 CMP Potas sium mmol/L 3.5 5.1 4.4 FINAL Oziel angelo [place] [address] [id number] 0 Phone: () - 09/26 CMP Sodiu m mmol/L 136.0 145.0 143 FINAL Oziel angelo [facility] [address] [facility] [address] [id number] 0 Phone: () - 09/26 CMP Bilir ubin, total mg/dL 0.3 1.2 0.3 FINAL Oziel angelo [facility] [address] [id number] 0 Phone: () - 09/26 CMP Total prote in g/dL 5.7 8.2 6.3 FINAL Oziel angelo [facility] [place], [address] [place] [id number] 0 Phone: () - 09/26 CBC w/ auto diff WBC K/uL 3.0 8.9 4.1 FINAL Ozile angelo [facility] [place], [address] [place] [id number] 0 Phone: () - 09/26 CBC w/ auto diff HGB g/dL 11.3 15.2 11.3 FINAL Oziel angelo [facility] [place], [address] [place] [id number] 0 Phone: () - 09/26 CBC w/ auto diff PLT K/uL 113.0 364.0 210 FINAL Oziel angelo [facility] [place], [address] [place] [id number] 0 Phone: () - 09/26 CBC w/ auto diff Dave # (ANC) K/uL 1.6 6.6 2.4 FINAL Oziel angelo [facility] [place], [address] [place] [id number] 0 Phone: () - 09/26 CBC w/ auto diff Dave % % 43.0 74.0 58.2 FINAL Oziel angelo [facility] [place], [address] [place] [id number] 0 Phone: () - 09/26 CBC w/ auto diff IG % % 0.0 0.5 0.2 FINAL Oziel angelo [facility] [place], [address] [place] [id number] 0 Phone: () - 09/26 CBC w/ auto diff IG # K/uL 0.0 0.03 0.01 FINAL Oziel angelo [facility] - [place], [address] [place] [id number] 0 Phone: () - 09/26 CBC w/ auto diff LY % % 14.0 41.0 27.0 FINAL Oziel Tolbert a [facility] - [place], [address] [place] [id number] 0 Phone: () - 09/26 CBC w/ auto diff MO % % 6.0 15.0 10.5 FINAL Oziel Tilleyot a [facility] - [place], [address] [place] [id number] 0 Phone: () - 09/26 CBC w/ auto diff EO % % 0.0 7.0 3.6 FINAL Oziel Tilleyot a [facility] - [place], [address] [place] [id number] 0 Phone: () - 09/26 CBC w/ auto diff BA % % 0.0 2.0 0.5 FINAL Oziel Tilleyot a [facility] - [place], [address] [place] [id number] 0 Phone: () - 09/26 CBC w/ auto diff LY # K/uL 0.4 3.6 1.1 FINAL Oziel Tilleyot a [facility] [place], [address] [place] [id number] 0 Phone: () - 09/26 CBC w/ auto diff MO # K/uL 0.2 1.3 0.4 FINAL Oziel Tilleyot a [facility] [place], [address] [place] [id number] 0 Phone: () - 09/26 CBC w/ auto diff EO # K/uL 0.0 0.6 0.2 FINAL Oziel Tilleyot a [facility] [place], [address] [place] [id number] 0 Phone: () - 09/26 CBC w/ auto diff BA # K/uL 0.0 0.2 0.0 FINAL Oziel Tilleyot a [facility] [place], [address] [place] [id number] 0 Phone: () - 09/26 CBC w/ auto diff NRBC % #/100W BC 0.0 0.2 0.0 FINAL Oziel Tilleyot a [facility] [place], [address] [place] [id number] 0 Phone: () - 09/26 CBC w/ auto diff RBC M/uL 3.9 5.1 3.38 Low FINAL Oziel Tilleyot a [facility] [place], [address] [place] [id number] 0 Phone: () - 09/26 CBC w/ auto diff HCT % 35.0 48.0 34.3 Low FINAL Oziel Tilleyot a [facility] [place], [address] [place] [id number] 0 Phone: () - 09/26 CBC w/ auto diff MCV fL 80.0 104.0 101.5 FINAL Oziel Tilleyot a [facility] [place], [address] [place] [id number] 0 Phone: () - 09/26 CBC w/ auto diff MCH pg 26.0 35.0 33.4 FINAL Oziel Tilleyot a [facility] - [place], [address] [place] [id number] 0 Phone: () - 09/26 CBC w/ auto diff MCHC g/dL 30.0 35.0 32.9 FINAL Oziel Tilleyot a [facility] [place], [address] [place] [id number] 0 Phone: () - 09/26 CBC w/ auto diff MPV fL 9.5 13.4 8.9 Low FINAL Oziel angelo [facility] - [place], [address] [place] [id number] 0 Phone: () - 09/26 CBC w/ auto diff RDW % 11.4 16.1 12.60 FINAL Ozeil Tilleyot a [facility] - [place], [address] [place] [id number] 0 Phone: () - 10/24 CBC w/ auto diff WBC K/uL 3.0 8.9 5.5 FINAL Lia Tilleyot a [facility] [place], [address] [place] [id number] 0 Phone: () - 10/24 CBC w/ auto diff HGB g/dL 11.3 15.2 12.0 FINAL Lia Tilleyot a [facility] [place], [address] [place] [id number] 0 Phone: () - 10/24 CBC w/ auto diff PLT K/uL 113.0 364.0 211 FINAL Lia Tilleyot a [facility] [place], [address] [place] [id number] 0 Phone: () - 10/24 CBC w/ auto diff Dave # (ANC) K/uL 1.6 6.6 3.4 FINAL Lia Tilleyot a [facility] [place], [address] [place] [id number] 0 Phone: () - 10/24 CBC w/ auto diff Dave % % 43.0 74.0 62.4 FINAL Lia Tolbert a [facility] - [place], [address] [place] [id number] 0 Phone: () - 10/24 CBC w/ auto diff IG % % 0.0 0.5 1.1 High FINAL Lia Tolbert a [facility] - [place], [address] [place] [id number] 0 Phone: () - 10/24 CBC w/ auto diff IG # K/uL 0.0 0.03 0.06 High FINAL Lia Tilleyot a [facility] - [place], [address] [place] [id number] 0 Phone: () - 10/24 CBC w/ auto diff LY % % 14.0 41.0 22.2 FINAL Lia Tilleyot a [facility] [place], [address] [place] [id number] 0 Phone: () - 10/24 CBC w/ auto diff MO % % 6.0 15.0 10.1 FINAL Lia Tilleyot a [facility] - [place], [address] [place] [id number] 0 Phone: () - 10/24 CBC w/ auto diff EO % % 0.0 7.0 3.8 FINAL Lia Tilleyot a [facility] [place], [address] [place] [id number] 0 Phone: () - 10/24 CBC w/ auto diff BA % % 0.0 2.0 0.4 FINAL Lia Tilleyot a [facility] [place], [address] [place] [id number] 0 Phone: () - 10/24 CBC w/ auto diff LY # K/uL 0.4 3.6 1.2 FINAL Lia Tilleyot a [facility] [place], [address] [place] [id number] 0 Phone: () - 10/24 CBC w/ auto diff MO # K/uL 0.2 1.3 0.6 FINAL Lia Tilleyot a [facility] [place], [address] [place] [id number] 0 Phone: () - 10/24 CBC w/ auto diff EO # K/uL 0.0 0.6 0.2 FINAL Lia Tilleyot a [facility] [place], [address] [place] [id number] 0 Phone: () - 10/24 CBC w/ auto diff BA # K/uL 0.0 0.2 0.0 FINAL Lia Tilleyot a [facility] [place], [address] [place] [id number] 0 Phone: () - 10/24 CBC w/ auto diff NRBC % #/100W BC 0.0 0.2 0.0 FINAL Lia Tilleyot a [facility] [place], [address] [place] [id number] 0 Phone: () - 10/24 CBC w/ auto diff RBC M/uL 3.9 5.1 3.62 Low FINAL Lia Tolbert a [facility] - [place], [address] [facility] [address] [place] [id number] 0 Phone: () - 10/24 CBC w/ auto diff HCT % 35.0 48.0 35.7 FINAL Lia Tilleyot gi [facility] - [place], [address] [facility] [address] [place] [id number] 0 Phone: () - 10/24 CBC w/ auto diff MCV fL 80.0 104.0 98.6 FINAL Lia Tilleyot a [facility] [place], [address] [place] [address] d [address] [place] [id number] 0 Phone: () - 10/24 CBC w/ auto diff MCH pg 26.0 35.0 33.1 FINAL Lia angelo [facility] [place], [address] [facility] [address] [place] [id number] 0 Phone: () - 10/24 CBC w/ auto diff MCHC g/dL 30.0 35.0 33.6 FINAL Lia Tilleyot gi [facility] - [place], [address] [facility] [address] [place] [id number] 0 Phone: () - 10/24 CBC w/ auto diff MPV fL 9.5 13.4 9.1 Low FINAL Lia angelo [facility] - [place], [address] [facility] [address] [place] [id number] 0 Phone: () - 10/24 CBC w/ auto diff RDW % 11.4 16.1 12.20 FINAL Lia Tolbert a [facility] - [place], [address] [place] [address] d [address] [place] [id number] 0 Phone: () - 10/24 CMP Album in g/dL 3.2 5.2 4.3 FINAL Lia Tolbert a [facility] - [place], [address] [place] [id number] 0 Phone: () - 10/24 CMP Alkal ine phosp hatas e U/L 46.0 116.0 59 FINAL [facility], [employer] [address] [facility] [id number] 0 Phone: () - 10/24 CMP ALT/S GPT U/L 7.0 40.0 12 FINAL [facility] [address] [facility] 100 [facility] [id number] 0 Phone: () - 10/24 CMP AST/S GOT U/L 13.0 40.0 22 FINAL [place] [address] [facility] 100 [facility] [id number] 0 Phone: () - 10/24 CMP BUN mg/dL 9.0 23.0 16 FINAL [place] [address] [address] [facility] [address] [id number] 0 Phone: () - 10/24 CMP Calci um mg/dL 8.7 10.4 9.7 [place] [address] [address] [facility] [address] [id number] 0 Phone: () - 10/24 CMP Chlor vipin mmol/L 96.0 114.0 110 FINAL [place] [address] [address] [facility] [address] [id number] 0 Phone: () - 10/24 CMP CO2 [...] of the 96 hour stability window. FINAL [facility], [employer] [address] [facility] [address] [place] [address] [id number] 0 Phone: () - 10/24 CMP Creat inine mg/dL 0.5 1.2 0.83 FINAL [facility], [employer] [address] [place] [address] [id number] 0 Phone: () - 10/24 CMP GFR estim ate ml/min /1.73m ^2 74.5 GFR is calculate d using the CKD-EPI equation. FINAL [place] [address] [id number] 0 Phone: () - 10/24 CMP Gluco se mg/dL 73.0 126.0 87 FINAL [place] [address] [address] [facility] 100 [facility] [id number] 0 Phone: () - 10/24 CMP Potas sium mmol/L 3.5 5.1 4.4 FINAL [place] [address] [id number] 0 Phone: () - 10/24 CMP Sodiu m mmol/L 136.0 145.0 145 FINAL [place] [address] [id number] 0 Phone: () - 10/24 CMP Bilir ubin, total mg/dL 0.3 1.2 0.4 FINAL [facility] [address] [id number] 0 Phone: () - 10/24 CMP Total prote in g/dL 5.7 8.2 6.4 FINAL [place] [address] [id number] 0 Phone: () - 10/24 T4, free panel T4, free ng/dL 0.7 1.8 1.62 Test performed at [facility] on a [employer] Immunoass ay Analyzer that uses an immunoenz ymometric sandwich assay for analysis. Patient testing should not be performed using multiple kathi amador due to analytica l variation seen between test kathi amador. FINAL [place] [address] [id number] 0 Phone: () - 10/24 TSH w/ refle x to free T4 TSH uIU/ml 0.32 5.0 0.05 Low Test performed at [facility] on a [employer] 2000 Immunoass ay Analyzer that uses an immunoenz ymometric sandwich assay for analysis. Patient testing should not be performed using multiple methodharley amador due to analytica l variation seen between test methodharley amador. FINAL [place] [address] [id number] 0 Phone: () - 11/21 CMP Album in g/dL 3.2 5.2 4.[address] [id number] 0 Phone: () - 11/21 CMP Alkal ine phosp hatas e U/L 46.0 116.0 [address] [id number] 0 Phone: () - 11/21 CMP ALT/S GPT U/L 7.0 40.0 [address] [id number] 0 Phone: () - 11/21 CMP AST/S GOT U/L 13.0 40.0 24 FINAL [place] [address] [id number] 0 Phone: () - 11/21 CMP BUN mg/dL 9.0 23.0 14 FINAL [place] [address] [id number] 0 Phone: () - 11/21 CMP Calci um mg/dL 8.7 10.4 9.3 FINAL [place] [address] [id number] 0 Phone: () - 11/21 CMP Chlor vipin mmol/L 96.0 114.0 111 FINAL [place] [address] [id number] 0 Phone: () - 11/21 CMP CO2 [...] the 96 hour stability window. FINAL Lia [place] [address] [id number] 0 Phone: () - 11/21 CMP Creat inine mg/dL 0.5 1.2 0.[address] [id number] 0 Phone: () - 11/21 CMP GFR estim ate ml/min /1.73m ^2 79.1 GFR is calculate d using the CKD-EPI equation. FINAL [address] [id number] 0 Phone: () - 11/21 CMP Gluco se mg/dL 73.0 126.0 [address] [id number] 0 Phone: () - 11/21 CMP Potas sium mmol/L 3.5 5.1 4.[address] [id number] 0 Phone: () - 11/21 CMP Sodiu m mmol/L 136.0 145.0 144 FINAL [place] [address] [id number] 0 Phone: () - 11/21 CMP Bilir ubin, total mg/dL 0.3 1.2 0.3 FINAL [place] [address] [id number] 0 Phone: () - 11/21 CMP Total prote in g/dL 5.7 8.2 6.2 FINAL [place] [address] [id number] 0 Phone: () - 11/21 T4, free panel T4, free ng/dL 0.7 1.8 1.13 Test performed at [facility] on a [employer] 2000 Immunoass ay Analyzer that uses an immunoenz ymometric sandwich assay for analysis. Patient testing should not be performed using multiple kathi amador due to analytica l variation seen between test kathi amador. FINAL [facility] - [place], [address] [place] [id number] 0 Phone: () - 11/21 CBC w/ auto diff WBC K/uL 3.0 8.9 4.1 FINAL Lia Tilley gi [facility] [place], [address] [facility] [address] [place] [id number] 0 Phone: () - 11/21 CBC w/ auto diff HGB g/dL 11.3 15.2 11.8 FINAL [facility] [place], [address] [facility] [address] [place] [id number] 0 Phone: () - 11/21 CBC w/ auto diff PLT K/uL 113.0 364.0 223 FINAL Lia Tilley gi [facility] - [place], [address] [facility] [address] [place] [id number] 0 Phone: () - 11/21 CBC w/ auto diff Dave # (ANC) K/uL 1.6 6.6 2.3 FINAL [facility] - [place], [address] [place] [id number] 0 Phone: () - 11/21 CBC w/ auto diff Dave % % 43.0 74.0 56.3 FINAL Lia Tilley gi [facility] - [place], [address] [place] [id number] 0 Phone: () - 11/21 CBC w/ auto diff IG % % 0.0 0.5 0.2 FINAL [facility] - [place], [address] [place] [id number] 0 Phone: () - 11/21 CBC w/ auto diff IG # K/uL 0.0 0.03 0.01 FINAL Lia Tilleyot a [facility] - [place], [address] [place] [id number] 0 Phone: () - 11/21 CBC w/ auto diff LY % % 14.0 41.0 29.0 FINAL Lia Tolbert a [facility] - [place], [address] [place] [id number] 0 Phone: () - 11/21 CBC w/ auto diff MO % % 6.0 15.0 10.4 FINAL Lia Tolbert a [facility] - [place], [address] [place] [id number] 0 Phone: () - 11/21 CBC w/ auto diff EO % % 0.0 7.0 3.9 FINAL Lia Tolbert a [facility] - [place], [address] [place] [id number] 0 Phone: () - 11/21 CBC w/ auto diff BA % % 0.0 2.0 0.2 FINAL Lia Tolbert a [facility] - [place], [address] [place] [id number] 0 Phone: () - 11/21 CBC w/ auto diff LY # K/uL 0.4 3.6 1.2 FINAL Lia Tolbert a [facility] - [place], [address] [place] [id number] 0 Phone: () - 11/21 CBC w/ auto diff MO # K/uL 0.2 1.3 0.4 FINAL Lia Tolbert a [facility] - [place], [address] [place] [id number] 0 Phone: () - 11/21 CBC w/ auto diff EO # K/uL 0.0 0.6 0.2 FINAL Lia Tolbert a [facility] - [place], [address] [place] [id number] 0 Phone: () - 11/21 CBC w/ auto diff BA # K/uL 0.0 0.2 0.0 FINAL Lia Tolbert a [facility] - [place], [address] [place] [id number] 0 Phone: () - 11/21 CBC w/ auto diff NRBC % #/100W BC 0.0 0.2 0.0 FINAL Lia Tolbert a [facility] - [place], [address] [place] [id number] 0 Phone: () - 11/21 CBC w/ auto diff RBC M/uL 3.9 5.1 3.69 Low FINAL Lia Tilleyot a [facility] - [place], [address] [place] [id number] 0 Phone: () - 11/21 CBC w/ auto diff HCT % 35.0 48.0 35.6 FINAL Lia Tolbert a [facility] - [place], [address] [place] [id number] 0 Phone: () - 11/21 CBC w/ auto diff MCV fL 80.0 104.0 96.5 FINAL Lia Tolbert a [facility] - [place], [address] [place] [id number] 0 Phone: () - 11/21 CBC w/ auto diff MCH pg 26.0 35.0 32.0 FINAL Lia Tolbert a [facility] - [place], [address] [place] [id number] 0 Phone: () - 11/21 CBC w/ auto diff RDW % 11.4 16.1 12.40 FINAL Lia Tolbert a [facility] - [place], [address] [place] [id number] 0 Phone: () - 11/21 CBC w/ auto diff MCHC g/dL 30.0 35.0 33.1 FINAL Lia Tilleyot a [facility] - [place], [address] [place] [id number] 0 Phone: () - 11/21 CBC w/ auto diff MPV fL 9.5 13.4 9.0 Low FINAL Lia angelo [facility] - [place], [address] [facility] [address] [place] [id number] 0 Phone: () - 11/21 TSH w/ refle x to free T4 TSH uIU/ml 0.32 5.0 0.16 Low Test performed at [facility] on a [employer] 2000 Immunoass ay Analyzer that uses an immunoenz ymometric sandwich assay for analysis. Patient testing should not be performed using multiple methodolo gies due to analytica l variation seen between test methodolo gies. FINAL Lia angelo [facility] [place], [address] [facility] [address] [facility] [id number] 0 Phone: () - 12/19 TSH w/ refle x to free T4 TSH uIU/ml 0.32 5.0 2.75 Test performed at [facility] on a [employer] 2000 Immunoass ay Analyzer that uses an immunoenz ymometric sandwich assay for analysis. Patient testing should not be performed using multiple methodolo gies due to analytica l variation seen between test methodolo gies. FINAL Oziel angelo [facility] [place], [address] [facility] [address] [facility] [id number] 0 Phone: () - 12/19 CBC w/ auto diff WBC K/uL 3.0 8.9 4.9 FINAL Oziel angelo [facility] [place], [address] [facility] [address] [facility] [place] [id number] 0 Phone: () - 12/19 CBC w/ auto diff HGB g/dL 11.3 15.2 11.8 FINAL Oziel angelo [facility] - [place], [address] [facility] [address] [place] [id number] 0 Phone: () - 12/19 CBC w/ auto diff PLT K/uL 113.0 364.0 218 FINAL Oziel angelo [facility] - [place], [address] [facility] [address] [place] [id number] 0 Phone: () - 12/19 CBC w/ auto diff Dave # (ANC) K/uL 1.6 6.6 2.7 FINAL Oziel Tilleyot a [facility] - [place], [address] [place] [id number] 0 Phone: () - 12/19 CBC w/ auto diff Dave % % 43.0 74.0 55.3 FINAL Oziel Tilleyot a [facility] - [place], [address] [place] [id number] 0 Phone: () - 12/19 CBC w/ auto diff IG % % 0.0 0.5 0.2 FINAL Oziel Tilleyot a [facility] - [place], [address] [place] [id number] 0 Phone: () - 12/19 CBC w/ auto diff IG # K/uL 0.0 0.03 0.01 FINAL Oziel Tilleyot a [facility] - [place], [address] [place] [id number] 0 Phone: () - 12/19 CBC w/ auto diff LY % % 14.0 41.0 30.6 FINAL Oziel Tilleyot a [facility] - [place], [address] [place] [id number] 0 Phone: () - 12/19 CBC w/ auto diff MO % % 6.0 15.0 9.3 FINAL Oziel Tilleyot a [facility] - [place], [address] [place] [id number] 0 Phone: () - 12/19 CBC w/ auto diff EO % % 0.0 7.0 4.0 FINAL Oziel Tilleyot a [facility] - [place], [address] [place] [id number] 0 Phone: () - 12/19 CBC w/ auto diff BA % % 0.0 2.0 0.6 FINAL Oziel Tilleyot a [facility] - [place], [address] [place] [id number] 0 Phone: () - 12/19 CBC w/ auto diff LY # K/uL 0.4 3.6 1.5 FINAL Oziel [facility] - [place], [address] [place] [id number] 0 Phone: () - 12/19 CBC w/ auto diff MO # K/uL 0.2 1.3 0.5 FINAL Oziel [facility] - [place], [address] [place] [id number] 0 Phone: () - 12/19 CBC w/ auto diff EO # K/uL 0.0 0.6 0.2 FINAL Oziel [facility] - [place], [address] [place] [id number] 0 Phone: () - 12/19 CBC w/ auto diff BA # K/uL 0.0 0.2 0.0 FINAL Oziel [facility] - [place], [address] [place] [id number] 0 Phone: () - 12/19 CBC w/ auto diff NRBC % #/100W BC 0.0 0.2 0.0 FINAL Oziel [facility] - [place], [address] [place] [id number] 0 Phone: () - 12/19 CBC w/ auto diff RBC M/uL 3.9 5.1 3.68 Low FINAL Oziel [facility] - [place], [address] [place] [id number] 0 Phone: () - 12/19 CBC w/ auto diff HCT % 35.0 48.0 35.3 FINAL Oziel [facility] - [place], [address] [place] [id number] 0 Phone: () - 12/19 CBC w/ auto diff MCV fL 80.0 104.0 95.9 FINAL Oziel [facility] - [place], [address] [place] [id number] 0 Phone: () - 12/19 CBC w/ auto diff MCH pg 26.0 35.0 32.1 FINAL Oziel angelo [facility] - [place], [address] [place] [id number] 0 Phone: () - 12/19 CBC w/ auto diff MCHC g/dL 30.0 35.0 33.4 FINAL Oziel angelo [facility] - [place], [address] [place] [id number] 0 Phone: () - 12/19 CBC w/ auto diff MPV fL 9.5 13.4 9.1 Low FINAL Oziel angelo [facility] - [place], [address] [place] [id number] 0 Phone: () - 12/19 CBC w/ auto diff RDW % 11.4 16.1 13.30 FINAL Oziel angelo [facility] - [place], [address] [facility] [place] [id number] 0 Phone: () - 12/19 CMP Album in g/dL 3.2 5.2 4.0 FINAL Oziel angelo [facility], [address] [place] [address] [id number] 0 Phone: () - 12/19 CMP Alkal ine phosp hatas e U/L 46.0 116.0 58 FINAL Oziel angelo [facility], [address] [place] [address] [id number] [phone] Phone: () - 12/19 CMP ALT/S GPT U/L 7.0 40.0 13 FINAL Oziel angelo [facility], [address] [place] [id number] 0 Phone: () - 12/19 CMP AST/S GOT U/L 13.0 40.0 24 FINAL Oziel angelo [facility], [address] [place] [id number] 0 Phone: () - 12/19 CMP BUN mg/dL 9.0 23.0 18 FINAL Oziel angelo [facility], [address] [place] [id number] 0 Phone: () - 12/19 CMP Calci um mg/dL 8.7 10.4 9.7 FINAL Oziel angelo [place] [address] [id number] 0 Phone: () - 12/19 CMP Chlor vipin mmol/L 96.0 114.0 111 FINAL Oziel angelo [place] [address] [id number] 0 Phone: () - 12/19 CMP CO2 [...] 96 hour stability window. FINAL Oziel angelo [place] [address] [id number] 0 Phone: () - 12/19 CMP Creat inine mg/dL 0.5 1.2 0.82 FINAL Oziel angelo [place] [address] [id number] 0 Phone: () - 12/19 CMP GFR estim ate ml/min /1.73m ^2 75.6 GFR is calculate d using the CKD-EPI equation. FINAL Oziel angelo [place] [address] [id number] 0 Phone: () - 12/19 CMP Gluco se mg/dL 73.0 126.0 81 FINAL Oziel angelo [place] [address] [address] [facility] [address] [id number] 0 Phone: () - 12/19 CMP Potas sium mmol/L 3.5 5.1 4.4 FINAL Oziel angelo [facility] [address] [facility] [address] [id number] 0 Phone: () - 12/19 CMP Sodiu m mmol/L 136.0 145.0 144 FINAL Oziel angelo [place] [address] [id number] 0 Phone: () - 12/19 CMP Bilir ubin, total mg/dL 0.3 1.2 0.4 FINAL Oziel nagelo [facility] [place], [address] [facility] [address] [place] [id number] 0 Phone: () - 12/19 CMP Total prote in g/dL 5.7 8.2 6.3 FINAL Oziel angelo [facility] [place], [address] [facility] [address] [place] [id number] 0 Phone: () - 01/12 [facility] other lab See wood heel attacher d 01/16 CBC w/ auto diff WBC K/uL 3.0 8.9 4.4 FINAL Oziel angelo [facility] [place], [address] [facility] [address] [place] [id number] 0 Phone: () - 01/16 CBC w/ auto diff HGB g/dL 11.3 15.2 11.9 FINAL Oziel angelo [facility] [place], [address] [facility] [address] [place] [id number] 0 Phone: () - 01/16 CBC w/ auto diff PLT K/uL 113.0 364.0 231 FINAL Oziel angelo [facility] [place], [address] [facility] [address] [place] [id number] 0 Phone: () - 01/16 CBC w/ auto diff Dave # (ANC) K/uL 1.6 6.6 2.4 FINAL Oziel angelo [facility] [place], [address] [place] [id number] 0 Phone: () - 01/16 CBC w/ auto diff Dave % % 43.0 74.0 54.7 FINAL Oziel angelo [facility] [place], [address] [place] [id number] 0 Phone: () - 01/16 CBC w/ auto diff IG % % 0.0 0.5 0.2 FINAL Oziel angelo [facility] [place], [address] [place] [id number] 0 Phone: () - 01/16 CBC w/ auto diff IG # K/uL 0.0 0.03 0.01 FINAL Oziel Tilleyot a [facility] [place], [address] [place] [id number] 0 Phone: () - 01/16 CBC w/ auto diff LY % % 14.0 41.0 31.8 FINAL Oziel Tilleyot a [facility] [place], [address] [place] [id number] 0 Phone: () - 01/16 CBC w/ auto diff MO % % 6.0 15.0 8.9 FINAL Oziel Tilleyot a [facility] [place], [address] [place] [id number] 0 Phone: () - 01/16 CBC w/ auto diff EO % % 0.0 7.0 3.9 FINAL Oziel Tilleyot a [facility] [place], [address] [place] [id number] 0 Phone: () - 01/16 CBC w/ auto diff BA % % 0.0 2.0 0.5 FINAL Oziel Tilleyot a [facility] [place], [address] [place] [id number] 0 Phone: () - 01/16 CBC w/ auto diff LY # K/uL 0.4 3.6 1.4 FINAL Oziel Tilleyot a [facility] [place], [address] [place] [id number] 0 Phone: () - 01/16 CBC w/ auto diff MO # K/uL 0.2 1.3 0.4 FINAL Oziel Tilleyot a [facility] [place], [address] [place] [id number] 0 Phone: () - 01/16 CBC w/ auto diff EO # K/uL 0.0 0.6 0.2 FINAL Oziel Tilleyot a [facility] [place], [address] [place] [id number] 0 Phone: () - 01/16 CBC w/ auto diff BA # K/uL 0.0 0.2 0.0 FINAL Oziel Tilleyot a [facility] [place], [address] [place] [id number] 0 Phone: () - 01/16 CBC w/ auto diff NRBC % #/100W BC 0.0 0.2 0.0 FINAL Oziel Tilleyot a [facility] [place], [address] [place] [id number] 0 Phone: () - 01/16 CBC w/ auto diff RBC M/uL 3.9 5.1 3.69 Low FINAL Oziel Tilleyot a [facility] [place], [address] [place] [id number] 0 Phone: () - 01/16 CBC w/ auto diff HCT % 35.0 48.0 35.0 FINAL Oziel Tilleyot a [facility] [place], [address] [place] [id number] 0 Phone: () - 01/16 CBC w/ auto diff MCV fL 80.0 104.0 94.9 FINAL Oziel Tilleyot a [facility] [place], [address] [place] [id number] 0 Phone: () - 01/16 CBC w/ auto diff MCH pg 26.0 35.0 32.2 FINAL Oziel Tilleyot a [facility] [place], [address] [place] [id number] 0 Phone: () - 01/16 CBC w/ auto diff MCHC g/dL 30.0 35.0 34.0 FINAL Oziel Tilleyot a [facility] [place], [address] [place] [id number] 0 Phone: () - 01/16 CBC w/ auto diff MPV fL 9.5 13.4 8.8 Low FINAL Oziel Tilleyot a [facility] [place], [address] [facility] [id number] 0 Phone: () - 01/16 CBC w/ auto diff RDW % 11.4 16.1 13.90 FINAL Oziel angelo [facility], [address] [facility] [address] [facility] [place] [id number] 0 Phone: () - 01/16 T4, free panel T4, free ng/dL 0.7 1.8 0.75 Test performed at [facility] on a [employer] Immunoass ay Analyzer that uses an immunoenz ymometric sandwich assay for analysis. Patient testing should not be performed using multiple methodolo ginaun due to analytica l variation seen between test methodolo ginaun. FINAL Oziel angelo [place] [address] [id number] 0 Phone: () - 01/16 CMP Album in g/dL 3.2 5.2 4.3 FINAL Oziel angelo [place] [address] [id number] 0 Phone: () - 01/16 CMP Alkal ine phosp hatas e U/L 46.0 116.0 64 FINAL Oziel angelo [place] [address] [id number] 0 Phone: () - 01/16 CMP ALT/S GPT U/L 7.0 40.0 12 FINAL Oziel angelo [place] [address] [id number] 0 Phone: () - 01/16 CMP AST/S GOT U/L 13.0 40.0 23 FINAL Oziel angelo [place] [address] [address] [facility] [address] [place] [address] [id number] 0 Phone: () - 01/16 CMP BUN mg/dL 9.0 23.0 17 FINAL Oziel angeol [place] [address] [address] [facility] [address] [id number] 0 Phone: () - 01/16 CMP Calci um mg/dL 8.7 10.4 9.4 FINAL Oziel angelo [place] [address] [id number] 0 Phone: () - 01/16 CMP Chlor vipin mmol/L 96.0 114.0 108 FINAL Oziel angelo [place] [address] [id number] 0 Phone: () - 01/16 CMP CO2 [...] 96 hour stability window. FINAL Oziel angelo [address] [id number] 0 Phone: () - 01/16 CMP Creat inine mg/dL 0.5 1.2 1.07 FINAL Oziel angelo [address] [id number] 0 Phone: () - 01/16 CMP GFR estim ate ml/min /1.73m ^2 54.9 Low GFR is calculate d using the CKD-EPI equation. FINAL Oziel angelo [address] [id number] 0 Phone: () - 01/16 CMP Gluco se mg/dL 73.0 126.0 84 FINAL Oziel angelo [address] [id number] 0 Phone: () - 01/16 CMP Potas sium mmol/L 3.5 5.1 4.4 FINAL Oziel angelo [address] [id number] 0 Phone: () - 01/16 CMP Sodiu m mmol/L 136.0 145.0 141 FINAL Oziel angelo [place] [address] [id number] 0 Phone: () - 01/16 CMP Bilir ubin, total mg/dL 0.3 1.2 0.4 FINAL Oziel angelo [facility], [address] [facility] [address] [facility] [id number] 0 Phone: () - 01/16 CMP Total prote in g/dL 5.7 8.2 6.6 FINAL Oziel angelo [facility], [address] [facility] [address] [place] [address] [id number] 0 Phone: () - 01/16 TSH w/ refle x to free T4 TSH uIU/ml 0.32 5.0 14.74 High Provider Alert. Notified Vicki by Lynne Flannery on 01/19/2022 at 2:55 PM.Test performed at [facility] on a [employer] Immunoass ay Analyzer that uses an immunoenz ymometric sandwich assay for analysis. Patient testing should not be performed using multiple methodolo gies due to analytica l variation seen between test methodolo gies. FINAL Oziel angelo [facility] [address] [facility] [address] [place] [address] [id number] 0 Phone: () - 02/20 TSH w/ refle x to free T4 TSH uIU/ml 0.32 5.0 Sent to [facility] Lab. Hard copy results availab le only. Test performed at [facility] on a [employer] 2000 Immunoass ay Analyzer that uses an immunoenz ymometric sandwich assay for analysis. Patient testing should not be performed using multiple methodolo gies due to analytica l variation seen between test methodolo gies. FINAL Oziel angelo [facility], [address] [facility] [address] [place] [address] [id number] 0 Phone: () - 02/20 T4, free panel T4, free ng/dL 0.7 1.8 1.01 Test Performed by:[facility] [address] - [facility], [place] [id number] e [phone] FINAL Oziel Box 02/20 TSH uIU/mL 0.35 4.94 8.74 High In Adults, TSH values between 5.00 and 10.00 uIU/ml do notnecess arily indicate the presence of Hypothyro idism.Cor relation with clinical findings such as presence of goiterand /or Thyropero xidase (TPO) Antibody may be helpful. Formore informati on please refer to MAYELA 2004; 291: 228-238.T est Performed by:[facility] [address] - [place] [id number] e [phone] FINAL Oziel Box 05/08 TSH w/ refle x to free T4 TSH uIU/ml 0.32 5.0 1.36 Test performed at [facility] on a [employer] 2000 Immunoass ay Analyzer that uses an immunoenz ymometric sandwich assay for analysis. Patient testing should not be performed using multiple methodolo gies due to analytica l variation seen between test methodolo gies. FINAL Oziel angelo [facility], [address] [facility] [address] [place] [address] [id number] 0 Phone: () - 05/08 CMP Album in g/dL 3.2 5.2 4.0 FINAL Oziel angelo [facility] [address] [facility] [address] [place] [address] [id number] 0 Phone: () - 05/08 CMP Alkal ine phosp hatas e U/L 46.0 116.0 56 FINAL Oziel angelo [facility], [address] [place] [address] [id number] 0 Phone: () - 05/08 CMP ALT/S GPT U/L 7.0 40.0 17 FINAL Oziel angelo [facility], [address] [place] [address] [id number] 0 Phone: () - 05/08 CMP AST/S GOT U/L 13.0 40.0 21 FINAL Oziel angelo [facility], [address] [facility] [address] [place] [address] [id number] 0 Phone: () - 05/08 CMP BUN mg/dL 9.0 23.0 22 FINAL Oziel angelo [facility] [address] [place] [address] [id number] 0 Phone: () - 05/08 CMP Calci um mg/dL 8.7 10.4 9.3 FINAL Oziel angelo [facility] [address] [place] [address] [id number] 0 Phone: () - 05/08 CMP Chlor vipin mmol/L 96.0 114.0 112 FINAL Oziel angelo [facility], [address] [facility] [address] [facility] [id number] 0 Phone: () - 05/08 CMP CO2 [...] 96 hour stability window. FINAL Oziel angelo [facility], [employer] [address] [id number] 0 Phone: () - 05/08 CMP Creat inine mg/dL 0.5 1.2 0.86 FINAL Oziel angelo [place] [address] [id number] 0 Phone: () - 05/08 CMP GFR estim ate ml/min /1.73m ^2 71.2 GFR is calculate d using the CKD-EPI equation. FINAL Oziel angelo [place] [address] [id number] 0 Phone: () - 05/08 CMP Gluco se mg/dL 73.0 126.0 77 FINAL Oziel angelo [facility] [address] [id number] 0 Phone: () - 05/08 CMP Potas sium mmol/L 3.5 5.1 3.9 FINAL Oziel angelo [place] [address] [address] [facility] [address] [id number] 0 Phone: () - 05/08 CMP Sodiu m mmol/L 136.0 145.0 148 High FINAL Oziel angelo [place] [address] [id number] 0 Phone: () - 05/08 CMP Bilir ubin, total mg/dL 0.3 1.2 0.4 FINAL Oziel angelo [facility], [address] [facility] [address] [id number] 0 Phone: () - 05/08 CMP Total prote in g/dL 5.7 8.2 6.1 FINAL Ozeil Tilleyot a [facility] [place], [address] [place] [id number] 0 Phone: () - 05/08 CBC w/ auto diff WBC K/uL 3.0 8.9 7.3 FINAL Oziel Tilleyot a [facility] [place], [address] [place] [id number] 0 Phone: () - 05/08 CBC w/ auto diff HGB g/dL 11.3 15.2 11.0 Low FINAL Oziel Tilleyot a [facility] [place], [address] [place] [id number] 0 Phone: () - 05/08 CBC w/ auto diff PLT K/uL 113.0 364.0 210 FINAL Oziel Tilleyot gi [facility] [place], [address] [place] [id number] 0 Phone: () - 05/08 CBC w/ auto diff Dave # (ANC) K/uL 1.6 6.6 3.7 FINAL Oziel Tilleyot gi [facility] [place], [address] [place] [id number] 0 Phone: () - 05/08 CBC w/ auto diff Dave % % 43.0 74.0 51.1 FINAL Oziel Tilleyot gi [facility] [place], [address] [place] [id number] 0 Phone: () - 05/08 CBC w/ auto diff IG % % 0.0 0.5 0.3 FINAL Oziel Tilleyot a [facility] [place], [address] [place] [id number] 0 Phone: () - 05/08 CBC w/ auto diff IG # K/uL 0.0 0.03 0.02 FINAL Oziel Tilleyot a [facility] [place], [address] [place] [id number] 0 Phone: () - 05/08 CBC w/ auto diff LY % % 14.0 41.0 37.9 FINAL Oziel Tilleyot a [facility] [place], [address] [place] [id number] 0 Phone: () - 05/08 CBC w/ auto diff MO % % 6.0 15.0 9.2 FINAL Oziel Tilleyot a [facility] [place], [address] [place] [id number] 0 Phone: () - 05/08 CBC w/ auto diff EO % % 0.0 7.0 1.2 FINAL Oziel Tilleyot a [facility] [place], [address] [place] [id number] 0 Phone: () - 05/08 CBC w/ auto diff BA % % 0.0 2.0 0.3 FINAL Oziel Tilleyot a [facility] [place], [address] [place] [id number] 0 Phone: () - 05/08 CBC w/ auto diff LY # K/uL 0.4 3.6 2.8 FINAL Oziel Tilleyot a [facility] [place], [address] [place] [id number] 0 Phone: () - 05/08 CBC w/ auto diff MO # K/uL 0.2 1.3 0.7 FINAL Oziel Tilleyot a [facility] [place], [address] [place] [id number] 0 Phone: () - 05/08 CBC w/ auto diff EO # K/uL 0.0 0.6 0.1 FINAL Oziel Tilleyot a [facility] [place], [address] [place] [id number] 0 Phone: () - 05/08 CBC w/ auto diff BA # K/uL 0.0 0.2 0.0 FINAL Oziel Tilleyot a [facility] [place], [address] [place] [id number] 0 Phone: () - 05/08 CBC w/ auto diff NRBC % #/100W BC 0.0 0.2 0.0 FINAL Oziel Tilleyot a [facility] [place], [address] [place] [id number] 0 Phone: () - 05/08 CBC w/ auto diff RBC M/uL 3.9 5.1 3.27 Low FINAL Oziel Tilleyot a [facility] [place], [address] [place] [id number] 0 Phone: () - 05/08 CBC w/ auto diff HCT % 35.0 48.0 32.1 Low FINAL Oziel Tilleyot a [facility] [place], [address] [place] [id number] 0 Phone: () - 05/08 CBC w/ auto diff MCV fL 80.0 104.0 98.2 FINAL Oziel Tilleyot a [facility] [place], [address] [place] [id number] 0 Phone: () - 05/08 CBC w/ auto diff MCH pg 26.0 35.0 33.6 FINAL Oziel Tilleyot gi [facility] [place], [address] [place] [id number] 0 Phone: () - 05/08 CBC w/ auto diff MCHC g/dL 30.0 35.0 34.3 FINAL Oziel Tilleyot a [facility] [place], [address] [place] [id number] 0 Phone: () - 05/08 CBC w/ auto diff MPV fL 9.5 13.4 9.4 Low FINAL Oziel Tilleyot a [facility] [place], [address] [place] [id number] 0 Phone: () - 05/08 CBC w/ auto diff RDW % 11.4 16.1 13.10 FINAL Oziel Tilleyot a [facility] [place], [address] [place] [id number] 0 Phone: () - 07/23 Misc other lab See wood heel attacher d 07/23 Misc other lab See wood heel attacher d 11/03 CMP Album in g/dL 3.2 5.2 4.1 FINAL Oziel angelo [facility], [address] [facility] 100 [facility] [id number] 0 Phone: () - 11/03 CMP Alkal ine phosp hatas e U/L 46.0 116.0 59 FINAL Oziel angelo [facility] [address] [facility] 100 [facility] [id number] 0 Phone: () - 11/03 CMP ALT/S GPT U/L 7.0 40.0 <7 FINAL Oziel angelo [place] [address] [address] [facility] 100 [facility] [id number] 0 Phone: () - 11/03 CMP AST/S GOT U/L 13.0 40.0 24 FINAL Oziel angelo [place] [address] [address] [facility] [address] [id number] 0 Phone: () - 11/03 CMP BUN mg/dL 9.0 23.0 16.0 FINAL Oziel angelo [place] [address] [address] [facility] 100 [facility] [id number] 0 Phone: () - 11/03 CMP Calci um mg/dL 8.7 10.4 9.1 FINAL Oziel angelo [place] [address] [address] [facility] [address] [id number] 0 Phone: () - 11/03 CMP Chlor vipin mmol/L 96.0 114.0 105 FINAL Oziel angelo [place] [address] [id number] 0 Phone: () - 11/03 CMP CO2 [...] 96 hour stability window. FINAL Oziel angelo [facility], [address] [facility] 100 [facility] [id number] 0 Phone: () - 11/03 CMP Creat inine mg/dL 0.5 1.2 0.88 FINAL Oziel angelo [place] [address] [id number] 0 Phone: () - 11/03 CMP GFR estim ate ml/min /1.73m ^2 69.0 GFR is calculate d using the CKD-EPI equation. FINAL Oziel angelo [place] [address] [id number] 0 Phone: () - 11/03 CMP Gluco se mg/dL 73.0 126.0 105 FINAL Oziel angelo [place] [address] [id number] 0 Phone: () - 11/03 CMP Potas sium mmol/L 3.5 5.1 4.4 FINAL Oziel angelo [place] [address] [id number] 0 Phone: () - 11/03 CMP Sodiu m mmol/L 136.0 145.0 139 FINAL Oziel angelo [place] [address] [id number] 0 Phone: () - 11/03 CMP Bilir ubin, total mg/dL 0.3 1.2 0.6 FINAL Oziel angelo [place] [address] [id number] 0 Phone: () - 11/03 CMP Total prote in g/dL 5.7 8.2 6.6 FINAL Oziel angelo [place] [address] [address] [facility] [address] [id number] 0 Phone: () - 11/03 CBC w/ auto diff WBC K/uL 3.0 8.9 4.7 FINAL Oziel angelo [facility], [address] [facility] [id number] 0 Phone: () - 08/22 /2023 CBC w/ auto diff HGB g/dL 11.3 15.2 11.6 FINAL Oziel Tilley[facility] a [facility] [place], [address] [place] [id number] 0 Phone: () - 11/03 CBC w/ auto diff PLT K/uL 113.0 364.0 248 FINAL Oziel Tilley[facility] a [facility] [place], [address] [place] [id number] 0 Phone: () - 11/03 CBC w/ auto diff Dave # (ANC) K/uL 1.6 6.6 2.9 FINAL Oziel [facility] [place], [address] [place] [id number] 0 Phone: () - 11/03 CBC w/ auto diff Dave % % 43.0 74.0 60.9 FINAL Oziel [facility] [place], [address] [place] [id number] 0 Phone: () - 11/03 CBC w/ auto diff IG % % 0.0 0.5 0.4 FINAL Oziel [facility] [place], [address] [place] [id number] 0 Phone: () - 11/03 CBC w/ auto diff IG # K/uL 0.0 0.03 0.02 FINAL Oziel [facility] [place], [address] [place] [id number] 0 Phone: () - 11/03 CBC w/ auto diff LY % % 14.0 41.0 26.8 FINAL Oziel [facility] [place], [address] [place] [id number] 0 Phone: () - 11/03 CBC w/ auto diff MO % % 6.0 15.0 8.5 FINAL Oziel [facility] [place], [address] [place] [id number] 0 Phone: () - 11/03 CBC w/ auto diff EO % % 0.0 7.0 3.0 FINAL Oziel [facility] [place], [address] [place] [id number] 0 Phone: () - 11/03 CBC w/ auto diff BA % % 0.0 2.0 0.4 FINAL Oziel [facility] [place], [address] [place] [id number] 0 Phone: () - 11/03 CBC w/ auto diff LY # K/uL 0.4 3.6 1.3 FINAL Oziel [facility] [place], [address] [place] [id number] 0 Phone: () - 11/03 CBC w/ auto diff MO # K/uL 0.2 1.3 0.4 FINAL Oziel [facility] [place], [address] [place] [id number] 0 Phone: () - 11/03 CBC w/ auto diff EO # K/uL 0.0 0.6 0.1 FINAL Oziel [facility] [place], [address] [place] [id number] 0 Phone: () - 11/03 CBC w/ auto diff BA # K/uL 0.0 0.2 0.0 FINAL Oziel [facility] [place], [address] [place] [id number] 0 Phone: () - 11/03 CBC w/ auto diff NRBC % #/100W BC 0.0 0.2 0.0 FINAL Oziel [facility] [place], [address] [place] [id number] 0 Phone: () - 11/03 CBC w/ auto diff RBC M/uL 3.9 5.1 3.52 Low FINAL Oziel [facility] [place], [address] [place] [id number] 0 Phone: () - 11/03 CBC w/ auto diff HCT % 35.0 48.0 34.2 Low FINAL Oziel [facility] [place], [address] [place] [id number] 0 Phone: () - 11/03 CBC w/ auto diff MCV fL 80.0 104.0 97.2 FINAL [facility] [place], [address] [place] [id number] 0 Phone: () - 11/03 CBC w/ auto diff MCH pg 26.0 35.0 33.0 FINAL Oziel [facility] [place], [address] [place] [id number] 0 Phone: () - 11/03 CBC w/ auto diff MCHC g/dL 30.0 35.0 33.9 FINAL Oziel [facility] [place], [address] [place] [id number] 0 Phone: () - 11/03 CBC w/ auto diff MPV fL 9.5 13.4 8.7 Low FINAL Oziel [facility] [place], [address] [place] [id number] 0 Phone: () - 11/03 CBC w/ auto diff RDW % 11.4 16.1 14.40 FINAL Oziel [facility] [place], [address] [place] [id number] 0 Phone: () - 02/08 CBC w/ auto diff WBC K/uL 3.0 8.9 4.7 FINAL [facility] [place], [address] [place] [id number] 0 Phone: () - 02/08 CBC w/ auto diff HGB g/dL 11.3 15.2 11.0 Low FINAL Oziel [facility] [place], [address] [place] [id number] 0 Phone: () - 02/08 CBC w/ auto diff PLT K/uL 113.0 364.0 194 FINAL Oziel [facility] [place], [address] [place] [id number] 0 Phone: () - 02/08 CBC w/ auto diff Dave # (ANC) K/uL 1.6 6.6 2.7 FINAL Oziel [facility] [place], [address] [place] [id number] 0 Phone: () - 02/08 CBC w/ auto diff Dave % % 43.0 74.0 57.2 FINAL [facility] - [place], [address] [place] [id number] 0 Phone: () - 02/08 CBC w/ auto diff IG % % 0.0 0.5 0.4 FINAL [facility] [place], [address] [place] [id number] 0 Phone: () - 02/08 CBC w/ auto diff IG # K/uL 0.0 0.03 0.02 FINAL [facility] [place], [address] [place] [id number] 0 Phone: () - 02/08 CBC w/ auto diff LY % % 14.0 41.0 31.6 FINAL [facility] [place], [address] [place] [id number] 0 Phone: () - 02/08 CBC w/ auto diff MO % % 6.0 15.0 8.0 FINAL [facility] [place], [address] [place] [id number] 0 Phone: () - 02/08 CBC w/ auto diff EO % % 0.0 7.0 2.2 FINAL [facility] [place], [address] [place] [id number] 0 Phone: () - 02/08 CBC w/ auto diff BA % % 0.0 2.0 0.6 FINAL [facility] [place], [address] [place] [id number] 0 Phone: () - 02/08 CBC w/ auto diff LY # K/uL 0.4 3.6 1.5 FINAL [facility] [place], [address] [place] [id number] 0 Phone: () - 02/08 CBC w/ auto diff MO # K/uL 0.2 1.3 0.4 FINAL [facility] [place], [address] [place] [id number] 0 Phone: () - 02/08 CBC w/ auto diff EO # K/uL 0.0 0.6 0.1 FINAL [facility] [place], [address] [place] [id number] 0 Phone: () - 02/08 CBC w/ auto diff BA # K/uL 0.0 0.2 0.0 FINAL [facility] [place], [address] [place] [id number] 0 Phone: () - 02/08 CBC w/ auto diff NRBC % #/100W BC 0.0 0.2 0.0 FINAL [facility] [place], [address] [place] [id number] 0 Phone: () - 02/08 CBC w/ auto diff RBC M/uL 3.9 5.1 3.26 Low FINAL [facility] [place], [address] [place] [id number] 0 Phone: () - 02/08 CBC w/ auto diff HCT % 35.0 48.0 32.9 Low FINAL [facility] [place], [address] [place] [id number] 0 Phone: () - 02/08 CBC w/ auto diff MCV fL 80.0 104.0 100.9 FINAL [facility] [place], [address] [facility] [address] [place] [id number] 0 Phone: () - 02/08 CBC w/ auto diff MCH pg 26.0 35.0 33.7 FINAL [facility] [place], [address] [facility] [address] [place] [id number] 0 Phone: () - 02/08 CBC w/ auto diff MCHC g/dL 30.0 35.0 33.4 FINAL [facility] [place], [address] [place] [address] d [address] [place] [id number] 0 Phone: () - 02/08 CBC w/ auto diff MPV fL 9.5 13.4 9.0 Low FINAL [facility] [place], [address] [place] [address] d [address] [place] [id number] 0 Phone: () - 02/08 CBC w/ auto diff RDW % 11.4 16.1 13.70 FINAL [facility] [place], [address] [place] [address] d [address] [place] [id number] 0 Phone: () - 02/08 CMP Album in g/dL 3.2 5.2 4.0 FINAL [facility], [address] [place] [id number] 0 Phone: () - 02/08 CMP Alkal ine phosp hatas e U/L 46.0 116.0 83 FINAL [facility], [address] [place] [id number] 0 Phone: () - 02/08 CMP ALT/S GPT U/L 7.0 40.0 <7 FINAL [facility], [address] [place] [id number] 0 Phone: () - 02/08 CMP AST/S GOT U/L 13.0 40.0 23 FINAL [facility] [address] [id number] 0 Phone: () - 02/08 CMP BUN mg/dL 9.0 23.0 17.0 FINAL [facility] [address] [facility] 100 [facility] [id number] 0 Phone: () - 02/08 CMP Calci um mg/dL 8.7 10.4 8.8 FINAL [facility] angelo [place] [address] [id number] 0 Phone: () - 02/08 CMP Chlor vipin mmol/L 96.0 114.0 109 FINAL Oziel angelo [place] [address] [id number] 0 Phone: () - 02/08 CMP CO2 [...] 96 hour stability window. FINAL Oziel angel[facility], [employer] [address] [id number] 0 Phone: () - 02/08 CMP Creat inine mg/dL 0.5 1.2 0.86 FINAL Oziel angelo [place] [address] [id number] 0 Phone: () - 02/08 CMP GFR estim ate ml/min /1.73m ^2 70.9 GFR is calculate d using the CKD-EPI equation. FINAL [facility]iel angelo [place] [address] [id number] 0 Phone: () - 02/08 CMP Gluco se mg/dL 73.0 126.0 84 FINAL Oziel angelo [place] [address] [id number] 0 Phone: () - 02/08 CMP Potas sium mmol/L 3.5 5.1 4.5 FINAL [facility], [address] [facility] [id number] 0 Phone: () - 02/08 CMP Sodiu m mmol/L 136.0 145.0 141 FINAL Oziel angel[facility], [address] [facility] [id number] 0 Phone: () - 02/08 CMP Bilir ubin, total mg/dL 0.3 1.2 0.3 FINAL Oziel angel[facility], [address] [facility] [id number] 0 Phone: () - 02/08 CMP Total prote in g/dL 5.7 8.2 6.1 FINAL [facility]iel angel[facility], [address] [facility] [id number] 0 Phone: () - 02/08 TSH w/ refle x to free T4 TSH uIU/ml 0.32 5.0 3.61 Test performed at [facility] on a SignalSet 2000 Immunoass ay Analyzer that uses an immunoenz ymometric sandwich assay for analysis. Patient testing should not be performed using multiple kathi amador due to analytica l variation seen between test kathi amador. FINAL Oziel angel[facility], [address] [facility] [id number] 0 Phone: () - 06/06 [facility] other lab See wood heel attacher d 08/09 CBC w/ auto diff WBC K/uL 3.0 8.9 3.5 FINAL [facility] [place], [address] [place] [id number] 0 Phone: () - 08/09 CBC w/ auto diff HGB g/dL 11.3 15.2 11.7 FINAL [facility] [place], [address] [place] [id number] 0 Phone: () - 08/09 CBC w/ auto diff PLT K/uL 113.0 364.0 196 FINAL [facility] [place], [address] [place] [id number] 0 Phone: () - 08/09 CBC w/ auto diff Dave # (ANC) K/uL 1.6 6.6 1.9 FINAL [facility] [place], [address] [place] [id number] 0 Phone: () - 08/09 CBC w/ auto diff Dave % % 43.0 74.0 52.2 FINAL [facility] [place], [address] [place] [id number] 0 Phone: () - 08/09 CBC w/ auto diff IG % % 0.0 0.5 0.3 FINAL [facility] [place], [address] [place] [id number] 0 Phone: () - 08/09 CBC w/ auto diff IG # K/uL 0.0 0.03 0.01 FINAL [facility] [place], [address] [place] [id number] 0 Phone: () - 08/09 CBC w/ auto diff LY % % 14.0 41.0 35.0 FINAL [facility] [place], [address] [place] [id number] 0 Phone: () - 08/09 CBC w/ auto diff MO % % 6.0 15.0 9.6 FINAL [facility] [place], [address] [place] [id number] 0 Phone: () - 08/09 CBC w/ auto diff EO % % 0.0 7.0 2.3 FINAL [facility] [place], [address] [place] [id number] 0 Phone: () - 08/09 CBC w/ auto diff BA % % 0.0 2.0 0.6 FINAL [facility] [place] [facility] [place], [address] [place] [id number] 0 Phone: () - 08/09 CBC w/ auto diff LY # K/uL 0.4 3.6 1.2 FINAL [facility] [place], [address] [place] [id number] 0 Phone: () - 08/09 CBC w/ auto diff MO # K/uL 0.2 1.3 0.3 FINAL [facility] [place], [address] [place] [id number] 0 Phone: () - 08/09 CBC w/ auto diff EO # K/uL 0.0 0.6 0.1 FINAL [facility] [place], [address] [place] [id number] 0 Phone: () - 08/09 CBC w/ auto diff BA # K/uL 0.0 0.2 0.0 FINAL [facility] [place], [address] [place] [id number] 0 Phone: () - 08/09 CBC w/ auto diff NRBC % #/100W BC 0.0 0.2 0.0 FINAL [facility] [place], [address] [place] [id number] 0 Phone: () - 08/09 CBC w/ auto diff RBC M/uL 3.9 5.1 3.51 Low FINAL [facility] [place], [address] [place] [id number] 0 Phone: () - 08/09 CBC w/ auto diff HCT % 35.0 48.0 35.6 FINAL [facility] [place], [address] [place] [id number] 0 Phone: () - 08/09 CBC w/ auto diff MCV fL 80.0 104.0 101.4 FINAL [facility] [place], [address] [place] [id number] 0 Phone: () - 08/09 CBC w/ auto diff MCH pg 26.0 35.0 33.3 FINAL [facility] [place], [address] [place] [id number] 0 Phone: () - 08/09 CBC w/ auto diff MCHC g/dL 30.0 35.0 32.9 FINAL [facility] [place], [address] [place] [id number] 0 Phone: () - 08/09 CBC w/ auto diff MPV fL 9.5 13.4 9.3 Low FINAL [facility] [place], [address] [place] [id number] 0 Phone: () - 08/09 CBC w/ auto diff RDW % 11.4 16.1 13.20 FINAL [facility] [place], [address] [place] [id number] 0 Phone: () - 08/09 CMP Album in g/dL 3.5 5.0 4.1 FINAL [facility] * [facility] [place], [address] [facility] [place] [id number] 0 08/09 CMP Alkal ine phosp hatas e U/L 36.0 125.0 66 FINAL [facility]iel Box * [facility] [place], [address] [facility] [place] [id number] 0 08/09 CMP ALT/S GPT U/L 0.0 34.0 6 FINAL [facility]iel Box * [facility] [place], [address] [facility] [place] [id number] 0 08/09 CMP AST/S GOT U/L 14.0 36.0 28 FINAL [facility] T[facility] a [facility], [address] [facility] [id number] 0 08/09 CMP BUN mg/dL 7.0 17.0 17.0 FINAL [facility] a [facility], [address] [id number] 0 08/09 CMP Calci um mg/dL 8.4 10.2 9.4 FINAL [facility], [address] [address] [facility] [id number] 0 08/09 CMP Chlor vipin mmol/L 96.0 107.0 106 FINAL [facility], [address] [id number] 0 08/09 CMP CO2 mmol/L 22.0 30.0 [...] hour stability window. FINAL [facility] a [facility], [address] [id number] 0 08/09 CMP Creat inine mg/dL 0.66 1.25 0.70 FINAL [facility] a [facility], [address] [id number] 0 08/09 CMP GFR estim ate ml/min /1.73m ^2 90.4 GFR is calculate d using the CKD-EPI equation. FINAL [facility]ley[facility] a [facility], [address] [facility] [id number] 0 08/09 CMP Gluco se mg/dL 74.0 100.0 87 FINAL Oziel Box * [facility], [address] [id number] 0 08/09 CMP Potas sium mmol/L 3.5 5.1 4.2 FINAL Oziel Box * [facility], [address] [id number] 0 08/09 CMP Sodiu m mmol/L 137.0 145.0 139 FINAL Oziel Box * [facility], [address] [id number] 0 08/09 CMP Bilir ubin, total mg/dL 0.2 1.3 0.3 FINAL Oziel Box * [facility], [address] [id number] 0 08/09 CMP Total prote in g/dL 6.3 8.2 6.7 FINAL Oziel Box * [facility], [address] [id number] 0 08/09 TSH w/ refle x to free T4 TSHR- v mIU/ml 0.47 4.68 0.74 FINAL Oziel Box * [facility], [address] [id number] 0 02/13 CMP Album in g/dL 3.5 5.0 3.5 FINAL Oziel Box * [place] [facility], [address] [facility] [id number] 0 02/13 CMP Alkal ine phosp hatas e U/L 36.0 125.0 75 FINAL Oziel Box * [place] [facility] [place], [address] [facility] [id number] 0 02/13 CMP ALT/S GPT U/L 0.0 34.0 <4 Repeate d FINAL [facility]iel Box * [place] [facility] [place], [address] [facility] [id number] 0 02/13 CMP AST/S GOT U/L 14.0 36.0 17 FINAL [facility] Card [place] [facility] [place], [address] [facility] [id number] 0 02/13 CMP BUN mg/dL 7.0 17.0 18.0 High FINAL [facility] [place] [facility], [address] [facility] [id number] 0 02/13 CMP Calci um mg/dL 8.4 10.2 9.2 FINAL [facility] [place] [facility], [address] [facility] [id number] 0 02/13 CMP Chlor vipin mmol/L 96.0 107.0 109 High FINAL [facility] Card [place] [facility], [address] [facility] [id number] 0 02/13 CMP CO2 mmol/L 22.0 30.0 [...] 96 hour stability window. FINAL [facility] Card [place] [facility], [address] [facility] [id number] 0 02/13 CMP Creat inine mg/dL 0.66 1.25 0.80 FINAL Oziel Box * [place] [facility] [place], [address] [facility] [id number] 0 02/13 CMP GFR estim ate ml/min /1.73m ^2 76.8 GFR is calculate d using the CKD-EPI equation. FINAL Oziel Box * [place] [facility] [place], [address] [facility] [id number] 0 02/13 CMP Gluco se mg/dL 74.0 100.0 84 FINAL Oziel Box * [place] [facility] [place], [address] [facility] [id number] 0 02/13 CMP Potas sium mmol/L 3.5 5.1 4.4 FINAL Oziel Box * [place] [facility] [place], [address] [facility] [id number] 0 02/13 CMP Sodiu m mmol/L 137.0 145.0 137 FINAL Oziel Box * [place] [facility] [place], [address] [facility] [id number] 0 02/13 CMP Bilir ubin, total mg/dL 0.2 1.3 0.5 FINAL Oziel Box * [place] [facility] [place], [address] [facility] [id number] 0 02/13 CMP Total prote in g/dL 6.3 8.2 6.2 Low FINAL Oziel Box * [place] [facility] [place], [address] [facility] [id number] 0 02/13 CBC w/ auto diff WBC K/uL 3.0 8.9 4.7 FINAL [facility] [place], [address] [place] [id number] 0 02/13 CBC w/ auto diff HGB g/dL 11.3 15.2 10.4 Low FINAL [facility] [place], [address] [place] [id number] 0 02/13 CBC w/ auto diff PLT K/uL 113.0 364.0 252 FINAL [facility] [place], [address] [place] [id number] 0 02/13 CBC w/ auto diff Dave # (ANC) K/uL 1.6 6.6 2.4 FINAL [facility] [place], [address] [place] [id number] 0 02/13 CBC w/ auto diff Dave % % 43.0 74.0 51.3 FINAL [facility] [place], [address] [place] [id number] 0 02/13 CBC w/ auto diff IG % % 0.0 0.5 0.2 FINAL [facility] [place], [address] [place] [id number] 0 02/13 CBC w/ auto diff IG # K/uL 0.0 0.03 0.01 FINAL [facility] [place], [address] [place] [id number] 0 02/13 CBC w/ auto diff LY % % 14.0 41.0 33.5 FINAL [facility] [place], [address] [place] [id number] 0 02/13 CBC w/ auto diff MO % % 6.0 15.0 8.8 FINAL [facility] [place], [address] [place] [id number] 0 02/13 CBC w/ auto diff EO % % 0.0 7.0 5.6 FINAL [facility] [place], [address] [place] [id number] 0 02/13 CBC w/ auto diff BA % % 0.0 2.0 0.6 FINAL [facility] Box [place] [facility] [place], [address] [place] [id number] 0 02/13 CBC w/ auto diff LY # K/uL 0.4 3.6 1.6 FINAL [facility] [place], [address] [place] [id number] 0 02/13 CBC w/ auto diff MO # K/uL 0.2 1.3 0.4 FINAL [facility] [place], [address] [place] [id number] 0 02/13 CBC w/ auto diff EO # K/uL 0.0 0.6 0.3 FINAL [facility] [place], [address] [place] [id number] 0 02/13 CBC w/ auto diff BA # K/uL 0.0 0.2 0.0 FINAL [facility] [place], [address] [place] [id number] 0 02/13 CBC w/ auto diff NRBC % #/100W BC 0.0 0.2 0.0 FINAL [facility] [place], [address] [place] [id number] 0 02/13 CBC w/ auto diff RBC M/uL 3.9 5.1 3.24 Low FINAL [facility] [place], [address] [place] [id number] 0 02/13 CBC w/ auto diff HCT % 35.0 48.0 32.3 Low FINAL [facility] [place], [address] [place] [id number] 0 02/13 CBC w/ auto diff MCV fL 80.0 104.0 99.7 FINAL [facility] [place], [address] [place] [id number] 0 02/13 CBC w/ auto diff MCH pg 26.0 35.0 32.1 FINAL [facility] [place], [address] [place] [id number] 0 02/13 CBC w/ auto diff MCHC g/dL 30.0 35.0 32.2 FINAL [facility] [place], [address] [place] [id number] 0 02/13 CBC w/ auto diff MPV fL 9.5 13.4 9.1 Low FINAL [facility] [place], [address] [place] [id number] 0 02/13 CBC w/ auto diff RDW % 11.4 16.1 13.70 FINAL [facility] [place], [address] [place] [id number] 0 04/03 Misc other lab See wood heel attacher d 08/14 CMP Album in g/dL 3.5 5.0 3.7 FINAL Oziel Box * [place] [facility] [place] [facility] , [address] [facility] [id number] 0 08/14 CMP Alkal ine phosp hatas e U/L 36.0 125.0 68 FINAL Oziel Box * [facility] , [address] [address] [facility] [id number] 0 08/14 CMP ALT/S GPT U/L 0.0 34.0 10 FINAL Oziel Box * [facility] , [address] [facility] [id number] 0 08/14 CMP AST/S GOT U/L 14.0 36.0 28 FINAL Oziel Box * [facility] , [address] [facility] [address] [id number] 0 08/14 CMP BUN mg/dL 7.0 17.0 25.0 High FINAL Oziel Box * [facility] , [address] [facility] [id number] 0 08/14 CMP Calci um mg/dL 8.4 10.2 8.7 FINAL Oziel Box * [facility] , [address] [facility] [facility] [address] [facility] [id number] 0 08/14 CMP Chlor vipin mmol/L 96.0 107.0 109 High FINAL Oziel Box * [facility] , [address] [facility] [id number] 0 08/14 CMP CO2 mmol/L 22.0 30.0 [...] window. FINAL Oziel Box * [facility] , [facility] [address] [facility] [id number] 0 08/14 CMP Creat inine mg/dL 0.66 1.25 0.90 FINAL Oziel Box * [facility] , [address] [facility] [address] [id number] 0 08/14 CMP GFR estim ate ml/min /1.73m ^2 66.5 GFR is calculate d using the CKD-EPI equation. FINAL Oziel Box * [facility] , [address] [facility] [address] [id number] 0 08/14 CMP Gluco se mg/dL 74.0 100.0 95 FINAL Oziel Box * [facility] , [facility] [address] [id number] 0 08/14 CMP Potas sium mmol/L 3.5 5.1 4.5 FINAL Oziel Box * [facility] , [address] [facility] [address] [id number] 0 08/14 CMP Sodiu m mmol/L 137.0 145.0 137 FINAL Oziel Box * [facility] , [address] [facility] [address] [id number] 0 08/14 CMP Bilir ubin, total mg/dL 0.2 1.3 0.8 FINAL Oziel Box * [facility] , [address] [facility] [address] [id number] 0 08/14 CMP Total prote in g/dL 6.3 8.2 6.5 FINAL Oziel Box * [facility] , [address] [facility] [address] [id number] 0 08/14 CBC w/ auto diff WBC K/uL 3.0 8.9 4.7 FINAL Oziel Box [facility] , [address] [place] [id number] 0 08/14 CBC w/ auto diff HGB g/dL 11.3 15.2 11.5 FINAL Oziel Box [place] [facility] [place] [facility] , [address] [place] [id number] 0 08/14 CBC w/ auto diff PLT K/uL 113.0 364.0 211 FINAL Oziel Box [place] [facility] [place] [facility] , [address] [place] [id number] 0 08/14 CBC w/ auto diff Dave # (ANC) K/uL 1.6 6.6 2.9 FINAL Oziel Box [place] [facility] [place] [facility] , [address] [place] [id number] 0 08/14 CBC w/ auto diff Dave % % 43.0 74.0 61.3 FINAL Oziel Box [place] [facility] [place] [facility] , [address] [place] [id number] 0 08/14 CBC w/ auto diff IG % % 0.0 0.5 0.2 FINAL Oziel Box [place] [facility] [place] [facility] , [address] [place] [id number] 0 08/14 CBC w/ auto diff IG # K/uL 0.0 0.03 0.01 FINAL Oziel Box [place] [facility] [place] [facility] , [address] [place] [id number] 0 08/14 CBC w/ auto diff LY % % 14.0 41.0 25.6 FINAL Oziel Box [place] [facility] [place] [facility] , [address] [place] [id number] 0 06/02 /2025 CBC w/ auto diff MO % % 6.0 15.0 8.7 FINAL Oziel Box [place] [facility] [place] [facility] , [address] [place] [id number] 0 08/14 CBC w/ auto diff EO % % 0.0 7.0 3.8 FINAL Oziel Box [place] [facility] [place] [facility] , [address] [place] [id number] 0 08/14 CBC w/ auto diff BA % % 0.0 2.0 0.4 FINAL Oziel Box [place] [facility] [place] [facility] , [address] [place] [id number] 0 08/14 CBC w/ auto diff LY # K/uL 0.4 3.6 1.2 FINAL Oziel Box [place] [facility] [place] [facility] , [address] [place] [id number] 0 08/14 CBC w/ auto diff MO # K/uL 0.2 1.3 0.4 FINAL Oziel Box [place] [facility] [place] [facility] , [address] [place] [id number] [phone] 08/14 CBC w/ auto diff EO # K/uL 0.0 0.6 0.2 FINAL [facility] [place] [facility] , [address] [place] [id number] 0 08/14 CBC w/ auto diff BA # K/uL 0.0 0.2 0.0 FINAL [facility] [place] [facility] , [address] [place] [id number] [phone] 08/14 CBC w/ auto diff NRBC % #/100W BC 0.0 0.2 0.0 FINAL [facility] [place] [facility] , [address] [place] [id number] 0 08/14 CBC w/ auto diff RBC M/uL 3.9 5.1 3.60 Low FINAL [facility] [place] [facility] , [address] [place] [id number] 08/14 CBC w/ auto diff HCT % 35.0 48.0 35.2 FINAL [facility] [place] [facility] , [address] [place] [id number] 08/14 CBC w/ auto diff MCV fL 80.0 104.0 97.8 FINAL [facility] [place] [facility] , [address] [place] [id number] 08/14 CBC w/ auto diff MCH pg 26.0 35.0 31.9 FINAL [facility] [place] [facility] , [address] [place] [id number] 08/14 CBC w/ auto diff MCHC g/dL 30.0 35.0 32.7 FINAL [facility] [place] [facility] , [address] [place] [id number] 08/14 CBC w/ auto diff MPV fL 9.5 13.4 9.0 Low FINAL [facility] [place] [facility] , [address] [place] [id number] 08/14 CBC w/ auto diff RDW % 11.4 16.1 13.60 FINAL [facility] [place] [facility] , [address] [place] [id number] Medications Date Name Route Dose Frequency Instructions Start Date End Date Status Baclofen Oral daily act charles Vitamin Y53-Ocesv Acid Oral 500 mcg-400 mcg daily active Escitalopram Oral daily active Cholecalciferol Oral QD active Carbidopa-Levod opa Oral 25 mg-100 mg PO 1.5 tablet TID active Calcium Carbonate Oral QD activ e Gabapentin Oral QD a ctive 09/25 levothyroxine sodium 0.075 MG Oral Tablet 2023 active 01/11 levothyroxine sodium 0.075 MG Oral Tablet 2022 active 05/21 levothyroxine sodium 0.075 MG Oral Tablet 2022 active 04/03 levothyroxine sodium 0.075 MG Oral Tablet 2022 active 01/16 Hydrocortisone IV intravenously 100.0 mg Re-initiate treatment only upon physician approval. 2021 active 01/16 diphenhydramine hydrochloride 0.5 MG/ML Injectable Solution intravenously 50.0 mg Re-initiate treatment only upon physician approval. 2021 active 01/16 1 ML epinephrine 1 MG/ML Injection intramuscularly 0.3 mg once Re-initiate treatment only upon physician approval. 2021 active 01/16 famotidine 10 MG/ML Injectable Solution intravenously 20.0 mg Re-initiate treatment only upon physician approval. 2021 active 01/16 Methylprednisol one IV intravenously 125.0 mg Re-initiate treatment only upon physician approval. 2021 active 12/19 1 ML epinephrine 1 MG/ML Injection intramuscularly 0.3 mg once Re-initiate treatment only upon physician approval. 2021 active 12/19 famotidine 10 MG/ML Injectable Solution intravenously 20.0 mg Re-initiate treatment only upon physician approval. 2021 active 12/19 diphenhydramine hydrochloride 0.5 MG/ML Injectable Solution intravenously 50.0 mg Re-initiate treatment only upon physician approval. 2021 active 12/19 Hydrocortisone IV intravenously 100.0 mg Re-initiate treatment only upon physician approval. 2021 active 12/19 Methylprednisol one IV intravenously 125.0 mg Re-initiate treatment only upon physician approval. 2021 active 11/21 famotidine 10 MG/ML Injectable Solution intravenously 20.0 mg Re-initiate treatment only upon physician approval. 2021 active 11/21 diphenhydramine hydrochloride 0.5 MG/ML Injectable Solution intravenously 50.0 mg Re-initiate treatment only upon physician approval. 2021 active 11/21 Hydrocortisone IV intravenously 100.0 mg Re-initiate treatment only upon physician approval. 2021 active 11/21 1 ML epinephrine 1 MG/ML Injection intramuscularly 0.3 mg once Re-initiate treatment only upon physician approval. 2021 active 11/21 Methylprednisol one IV intravenously 125.0 mg Re-initiate treatment only upon physician approval. 2021 active 10/24 Methylprednisol one IV intravenously 125.0 mg Re-initiate treatment only upon physician approval. 2021 active 10/24 Hydrocortisone IV intravenously 100.0 mg Re-initiate treatment only upon physician approval. 2021 active 10/24 1 ML epinephrine 1 MG/ML Injection intramuscularly 0.3 mg once Re-initiate treatment only upon physician approval. 2021 active 10/24 famotidine 10 MG/ML Injectable Solution intravenously 20.0 mg Re-initiate treatment only upon physician approval. 2021 active 10/24 diphenhydramine hydrochloride 0.5 MG/ML Injectable Solution intravenously 50.0 mg Re-initiate treatment only upon physician approval. 2021 active 09/26 1 ML epinephrine 1 MG/ML Injection intramuscularly 0.3 mg once Re-initiate treatment only upon physician approval. 2021 active 09/26 Hydrocortisone IV intravenously 100.0 mg Re-initiate treatment only upon physician approval. 2021 active 09/26 famotidine 10 MG/ML Injectable Solution intravenously 20.0 mg Re-initiate treatment only upon physician approval. 2021 active 09/26 Methylprednisol one IV intravenously 125.0 mg Re-initiate treatment only upon physician approval. 2021 active 09/26 diphenhydramine hydrochloride 0.5 MG/ML Injectable Solution intravenously 50.0 mg Re-initiate treatment only upon physician approval. 2021 active 08/27 diphenhydramine hydrochloride 0.5 MG/ML Injectable Solution intravenously 50.0 mg Re-initiate treatment only upon physician approval. 2021 active 08/27 famotidine 10 MG/ML Injectable Solution intravenously 20.0 mg Re-initiate treatment only upon physician approval. 2021 active 08/27 Methylprednisol one IV intravenously 125.0 mg Re-initiate treatment only upon physician approval. 2021 active 08/27 Hydrocortisone IV intravenously 100.0 mg Re-initiate treatment only upon physician approval. 2021 active 08/27 1 ML epinephrine 1 MG/ML Injection intramuscularly 0.3 mg once Re-initiate treatment only upon physician approval. 2021 active 07/30 Methylprednisol one IV intravenously 125.0 mg Re-initiate treatment only upon physician approval. 2021 active 07/30 famotidine 10 MG/ML Injectable Solution intravenously 20.0 mg Re-initiate treatment only upon physician approval. 2021 active 07/30 diphenhydramine hydrochloride 0.5 MG/ML Injectable Solution intravenously 50.0 mg Re-initiate treatment only upon physician approval. 2021 active 07/30 Hydrocortisone IV intravenously 100.0 mg Re-initiate treatment only upon physician approval. 2021 active 07/30 1 ML epinephrine 1 MG/ML Injection intramuscularly 0.3 mg once Re-initiate treatment only upon physician approval. 2021 active 07/02 famotidine 10 MG/ML Injectable Solution intravenously 20.0 mg Re-initiate treatment only upon physician approval. 2021 active 07/02 Hydrocortisone IV intravenously 100.0 mg Re-initiate treatment only upon physician approval. 2021 active 07/02 1 ML epinephrine 1 MG/ML Injection intramuscularly 0.3 mg once Re-initiate treatment only upon physician approval. 2021 active 07/02 diphenhydramine hydrochloride 0.5 MG/ML Injectable Solution intravenously 50.0 mg Re-initiate treatment only upon physician approval. 2021 active 07/02 Methylprednisol one IV intravenously 125.0 mg Re-initiate treatment only upon physician approval. 2021 active 05/28 Methylprednisol one IV intravenously 125.0 mg Re-initiate treatment only upon physician approval. 2021 active 05/28 1 ML epinephrine 1 MG/ML Injection intramuscularly 0.3 mg once Re-initiate treatment only upon physician approval. 2021 active 05/28 Hydrocortisone IV intravenously 100.0 mg Re-initiate treatment only [...] micron, low-protein binding filter. 2021 active 05/28 diphenhydramine hydrochloride 0.5 MG/ML Injectable Solution intravenously 50.0 mg Re-initiate treatment only upon physician approval. 2021 active 04/30 famotidine 10 MG/ML Injectable Solution intravenously 20.0 mg Re-initiate treatment only upon physician approval. 2021 active 04/30 diphenhydramine hydrochloride 0.5 MG/ML Injectable Solution intravenously 50.0 mg Re-initiate treatment only upon physician approval. 2021 active 04/30 Hydrocortisone IV intravenously 100.0 mg Re-initiate treatment only upon physician approval. 2021 active 04/30 Methylprednisol one IV intravenously 125.0 mg Re-initiate treatment only upon physician approval. 2021 active 04/30 1 ML epinephrine 1 MG/ML Injection intramuscularly 0.3 mg once Re-initiate treatment only upon physician approval. 2021 active 03/17 diphenhydramine hydrochloride 0.5 MG/ML Injectable Solution intravenously 50.0 mg Re-initiate treatment only upon physician approval. 2021 active 03/17 1 ML epinephrine 1 MG/ML Injection intramuscularly 0.3 mg once Re-initiate treatment only upon physician approval. 2021 active 03/17 famotidine 10 MG/ML Injectable Solution intravenously 20.0 mg Re-initiate treatment only upon physician approval. 2021 active 03/17 Hydrocortisone IV intravenously 100.0 mg Re-initiate treatment only upon physician approval. 2021 active 03/17 Methylprednisol one IV intravenously 125.0 mg Re-initiate treatment only upon physician approval. 2021 active 02/17 1 ML epinephrine 1 MG/ML Injection intramuscularly 0.3 mg once Re-initiate treatment only upon physician approval. 2020 active 02/17 famotidine 10 MG/ML Injectable Solution intravenously 20.0 mg Re-initiate treatment only upon physician approval. 2020 active 02/17 Hydrocortisone IV intravenously 100.0 mg Re-initiate treatment only upon physician approval. 2020 active 02/17 diphenhydramine hydrochloride 0.5 MG/ML Injectable Solution intravenously 50.0 mg Re-initiate treatment only upon physician approval. 2020 active 02/17 Methylprednisol one IV intravenously 125.0 mg Re-initiate treatment only upon physician approval. 2020 active 02/06 1 ML epinephrine 1 MG/ML Injection intramuscularly 0.3 mg once Re-initiate treatment only upon physician approval. 02/06 on hold 02/06 Famotidine IV intravenously 20.0 mg once 02/06 on hold 02/06 methylprednisol one 2000 MG Injection intravenously 125.0 mg Re-initiate [...] is an irritant. 02/06 on hold 02/06 diphenhydramine hydrochloride 0.5 MG/ML Injectable Solution intravenously 25.0 mg once 02/06 on hold 02/06 paclitaxel 6 MG/ML Injectable Solution intravenously 78.0 mg once Final product concentration must be 0.3-1.2 mg/mL.Administ er using [id number] ining equipment and through an in-line 0.22 micron filter.Paclita xel is a vascular irritant. 02/06 on hold 02/06 hydrocortisone 100 MG Injection intravenously 100.0 mg Re-initiate treatment only upon physician approval. 02/06 on hold 02/06 diphenhydramine hydrochloride 0.5 MG/ML Injectable Solution intravenously 50.0 mg Re-initiate treatment only upon physician approval. 02/06 on hold 01/30 hydrocortisone 100 MG Injection intravenously 100.0 mg Re-initiate treatment only upon physician approval. 2020 active 01/30 famotidine 10 MG/ML Injectable Solution intravenously 20.0 mg Re-initiate treatment only upon physician approval. 2020 active 01/30 diphenhydramine hydrochloride 0.5 MG/ML Injectable Solution intravenously 50.0 mg Re-initiate treatment only upon physician approval. 2020 active 01/30 1 ML epinephrine 1 MG/ML Injection intramuscularly 0.3 mg once Re-initiate treatment only upon physician approval. 2020 active 01/30 methylprednisol one 2000 MG Injection intravenously 125.0 mg Re-initiate treatment only upon physician approval. 2020 active 01/23 methylprednisol one 2000 MG Injection intravenously 125.0 mg Re-initiate treatment only upon physician approval. 2020 active 01/23 famotidine 10 MG/ML Injectable Solution intravenously 20.0 mg Re-initiate treatment only upon physician approval. 2020 active 01/23 diphenhydramine hydrochloride 0.5 MG/ML Injectable Solution intravenously 50.0 mg Re-initiate treatment only upon physician approval. 2020 active 01/23 hydrocortisone 100 MG Injection intravenously 100.0 mg Re-initiate treatment only upon physician approval. 2020 active 01/23 1 ML epinephrine 1 MG/ML Injection intramuscularly 0.3 mg once Re-initiate treatment only upon physician approval. 2020 active 01/16 1 ML epinephrine 1 MG/ML Injection intramuscularly 0.3 mg once Re-initiate treatment only upon physician approval. 2020 active 01/16 methylprednisol one 2000 MG Injection intravenously 125.0 mg Re-initiate treatment only upon physician approval. 2020 active 01/16 diphenhydramine hydrochloride 0.5 MG/ML Injectable Solution intravenously 50.0 mg Re-initiate treatment only upon physician approval. 2020 active 01/16 hydrocortisone 100 MG Injection intravenously 100.0 mg Re-initiate treatment only upon physician approval. 2020 active 01/16 famotidine 10 MG/ML Injectable Solution intravenously 20.0 mg Re-initiate treatment only upon physician approval. 2020 active 01/09 hydrocortisone 100 MG Injection intravenously 100.0 mg Re-initiate treatment only upon physician approval. 2020 active 01/09 methylprednisol one 2000 MG Injection intravenously 125.0 mg Re-initiate treatment only upon physician approval. 2020 active 01/09 1 ML epinephrine 1 MG/ML Injection intramuscularly 0.3 mg once Re-initiate treatment only upon physician approval. 2020 active 01/09 diphenhydramine hydrochloride 0.5 MG/ML Injectable Solution intravenously 50.0 mg Re-initiate treatment only upon physician approval. 2020 active 01/09 famotidine 10 MG/ML Injectable Solution intravenously 20.0 mg Re-initiate treatment only upon physician approval. 2020 active 01/02 hydrocortisone 100 MG Injection intravenously 100.0 mg Re-initiate treatment only upon physician approval. 2020 active 01/02 famotidine 10 MG/ML Injectable Solution intravenously 20.0 mg Re-initiate treatment only upon physician approval. 2020 active 01/02 methylprednisol one 2000 MG Injection intravenously 125.0 mg Re-initiate treatment only upon physician approval. 2020 active 01/02 1 ML epinephrine 1 MG/ML Injection intramuscularly 0.3 mg once Re-initiate treatment only upon physician approval. 2020 active 01/02 diphenhydramine hydrochloride 0.5 MG/ML Injectable Solution intravenously 50.0 mg Re-initiate treatment only upon physician approval. 2020 active 12/24 famotidine 10 MG/ML Injectable Solution intravenously 20.0 mg Re-initiate treatment only upon physician approval. 2020 active 12/24 1 ML epinephrine 1 MG/ML Injection intramuscularly 0.3 mg once Re-initiate treatment only upon physician approval. 2020 active 12/24 methylprednisol one 2000 MG Injection intravenously 125.0 mg Re-initiate treatment only upon physician approval. 2020 active 12/24 hydrocortisone 100 MG Injection intravenously 100.0 mg Re-initiate treatment only upon physician approval. 2020 active 12/24 diphenhydramine hydrochloride 0.5 MG/ML Injectable Solution intravenously 50.0 mg Re-initiate treatment only upon physician approval. 2020 active 09/22 Ibuprofen Oral Oral 800.0 mg 2013 active Problems Diagnosis Status Date of Diagnosis [...] BSA 2.02 02/17/2021 Pain Scale 0.00 03/17/2021 BMI 35.81 03/17/2021 Height 65.00 03/17/2021 Weight 215.20 03/17/2021 Pain Scale 4.00 03/17/2021 BSA 2.04 03/17/2021 Oxygen Saturation 94.00 03/17/2021 Respiratory Rate 16.00 03/17/2021 Heart Beat 62.00 03/17/2021 Body Temperature 97.40 03/17/2021 Intravascular Systolic 139 03/17/2021 Intravascular Diastolic 71 04/14/2021 BSA 2.01 04/14/2021 Body Temperature 97.70 04/14/2021 Heart Beat 70.00 04/14/2021 Respiratory Rate 16.00 04/14/2021 Oxygen Saturation 98.00 04/14/2021 Intravascular Systolic 138 04/14/2021 Intravascular Diastolic 80 04/14/2021 Pain Scale 5.00 04/14/2021 Weight 208.00 04/14/2021 BMI 34.61 04/14/2021 Height 65.00 04/23/2021 BSA 1.98 04/23/2021 BMI 33.45 04/23/2021 Height 65.00 04/23/2021 Weight 201.00 04/23/2021 Pain Scale 5.00 04/23/2021 Intravascular Systolic 112 04/23/2021 Intravascular Diastolic 70 04/23/2021 Oxygen Saturation 98.00 04/23/2021 Respiratory Rate 16.00 04/23/2021 Body Temperature 96.80 04/23/2021 Heart Beat 68.00 04/30/2021 Body Temperature 97.90 04/30/2021 Heart Beat 61.00 04/30/2021 Respiratory Rate 18.00 04/30/2021 Oxygen Saturation 98.00 04/30/2021 BSA 1.97 04/30/2021 Weight 198.20 04/30/2021 Height 65.00 04/30/2021 BMI 32.98 04/30/2021 Intravascular Systolic 107 04/30/2021 Intravascular Diastolic 70 05/28/2021 Body Temperature 98.30 05/28/2021 Heart Beat 66.00 05/28/2021 Respiratory Rate 16.00 05/28/2021 Oxygen Saturation 98.00 05/28/2021 Intravascular Systolic 128 05/28/2021 Intravascular Diastolic 84 05/28/2021 Pain Scale 0.00 05/28/2021 Weight 197.60 05/28/2021 Height 65.00 05/28/2021 BMI 32.88 05/28/2021 BSA 1.97 07/02/2021 Pain Scale 0.00 07/02/2021 Weight 193.00 07/02/2021 Height 65.00 07/02/2021 BMI 32.12 07/02/2021 BSA 1.95 07/02/2021 Oxygen Saturation 97.00 07/02/2021 Respiratory Rate 16.00 07/02/2021 Heart Beat 62.00 07/02/2021 Body Temperature 97.40 07/02/2021 Intravascular Systolic 116 07/02/2021 Intravascular Diastolic 72 07/30/2021 Oxygen Saturation 97.00 07/30/2021 Respiratory Rate 18.00 07/30/2021 Heart Beat 63.00 07/30/2021 Body Temperature 98.10 07/30/2021 Intravascular Systolic 153 07/30/2021 Intravascular Diastolic 70 07/30/2021 BSA 1.96 07/30/2021 BMI 32.45 07/30/2021 Height 65.00 07/30/2021 Weight 195.00 07/30/2021 Pain Scale 0.00 08/27/2021 BMI 33.38 08/27/2021 Height 65.00 08/27/2021 Weight 200.60 08/27/2021 Pain Scale 5.00 08/27/2021 BSA 1.98 08/27/2021 Heart Beat 66.00 08/27/2021 Respiratory Rate 16.00 08/27/2021 Oxygen Saturation 99.00 08/27/2021 Intravascular Systolic 110 08/27/2021 Intravascular Diastolic 80 08/27/2021 Body Temperature 97.20 09/08/2021 Intravascular Systolic 125 09/08/2021 Intravascular Diastolic 82 09/08/2021 Pain Scale 2.00 09/08/2021 Weight 200.60 09/08/2021 Height 65.00 09/08/2021 BMI 33.38 09/08/2021 BSA 1.98 09/08/2021 Body Temperature 98.50 09/08/2021 Heart Beat 67.00 09/08/2021 Respiratory Rate 16.00 09/08/2021 Oxygen Saturation 98.00 09/26/2021 Body Temperature 96.70 09/26/2021 Heart Beat 62.00 09/26/2021 Respiratory Rate 16.00 09/26/2021 Oxygen Saturation 98.00 09/26/2021 BSA 1.98 09/26/2021 Pain Scale 0.00 09/26/2021 Weight 200.00 09/26/2021 Height 65.00 09/26/2021 BMI 33.28 09/26/2021 Intravascular Systolic 114 09/26/2021 Intravascular Diastolic 78 10/24/2021 BMI 33.28 10/24/2021 BSA 1.98 10/24/2021 Height 65.00 10/24/2021 Weight 200.00 10/24/2021 Pain Scale 0.00 10/24/2021 Intravascular Systolic 138 10/24/2021 Intravascular Diastolic 84 10/24/2021 Oxygen Saturation 97.00 10/24/2021 Respiratory Rate 20.00 10/24/2021 Heart Beat 65.00 10/24/2021 Body Temperature 96.90 11/21/2021 BMI 34.28 11/21/2021 Height 65.00 11/21/2021 Weight 206.00 11/21/2021 Pain Scale 0.00 11/21/2021 BSA 2.00 11/21/2021 Oxygen Saturation 98.00 11/21/2021 Respiratory Rate 16.00 11/21/2021 Heart Beat 68.00 11/21/2021 Body Temperature 97.30 11/21/2021 Intravascular Systolic 158 11/21/2021 Intravascular Diastolic 88 12/19/2021 BSA 2.02 12/19/2021 BMI 34.88 12/19/2021 Height 65.00 12/19/2021 Weight 209.60 12/19/2021 Pain Scale 0.00 12/19/2021 Intravascular Systolic 118 12/19/2021 Intravascular Diastolic 82 12/19/2021 Oxygen Saturation 97.00 12/19/2021 Respiratory Rate 16.00 12/19/2021 Body Temperature 96.70 12/19/2021 Heart Beat 64.00 01/16/2022 BSA 2.03 01/16/2022 BMI 35.25 01/16/2022 Height 65.00 01/16/2022 Weight 211.80 01/16/2022 Body Temperature 97.70 01/16/2022 Intravascular Systolic 118 01/16/2022 Intravascular Diastolic 82 01/16/2022 Oxygen Saturation 95.00 01/16/2022 Respiratory Rate 16.00 01/16/2022 Heart Beat 63.00 01/16/2022 Pain Scale 0.00 05/08/2022 Heart Beat 68.00 05/08/2022 Respiratory Rate [...] Body Temperature 96.60 02/18/2024 Heart Beat 81.00 09/04/2024 Body Temperature 98.70 09/04/2024 Heart Beat 64.00 09/04/2024 Respiratory Rate 16.00 09/04/2024 Oxygen Saturation 98.00 09/04/2024 Intravascular Systolic 132 09/04/2024 Intravascular Diastolic 70 09/04/2024 Weight 219.70 09/04/2024 Height 65.00 09/04/2024 BMI 36.56 09/04/2024 BSA 2.06 09/04/2024 Pain Scale 0.00
--- OUTSIDE RECORDS SUMMARY | 2024-09-18 08:40 | XMS_ITS ---
Author Name Interface, [id number] lity Address [address] [address] [facility] Address [address] [address] Allergies and Adverse Reactions Medication/Group Name Reaction Severity Date amoxicillin 09/04/2024 Penicillins 09/04/2024 nitrofurantoin Hives 09/04/2024 ciprofloxacin Hives 09/04/2024 Plan Date Type Value 02/28/2025 APPOINTMENT OUTSIDE TEST 5 M IN 09/04/2024 APPOINTMENT OV 20 MIN 09/05/2024 LABORDER Port removal 03/06/2025 LABORDER MRI brain w/ & w /o contrast 03/06/2025 LABORDER CMP 03/06/[address] chest/abdomen /pelvis w/ IV contrast 03/06/2025 LABORDER CBC w/ auto diff Reason for Visit OV 20 MIN Encounters Date Name 09/04/2024 Brain metastasis 09/04/2024 Non-small cell lung cancer (disorder) Medications Date Name Route Dose Frequency Instructions Start Date End Date Status Baclofen Oral daily act charles Vitamin L97-Mvzrh Acid Oral 500 mcg-400 mcg daily active [...] treatment only upon physician approval. 2021 active 12/06 /2021 1 ML epinephrine 1 MG/ML Injection intramuscularly [...] concentration must be 0.3-1.2 mg/mL.Administ er using [id number] ining equipment and through an in-line 0.22 [...] pain Active Vital Signs Date Type Value 09/04/2024 Body Temperature 98.70 09/04/2024 Heart Beat 64.00 09/04/2024 Respiratory Rate 16.00 09/04/2024 Oxygen Saturation 98.00 09/04/2024 Intravascular Systolic 132 09/04/2024 Intravascular Diastolic 70 09/04/2024 Weight 219.70 09/04/2024 Height 65.00 09/04/2024 BMI 36.56 09/04/2024 BSA 2.06 09/04/2024 Pain Scale 0.00 Notes Section * Med Onc Follow-up Note [...] 3 1/2 years out from completing chemoradiation 2.?? Solitary [...] Parkinson's disease - Now on Sinemet Plan 1.?? Continue with surveillance from lung [...] positive: No; Screening Date: 09/04/2024; Screening Tool: [id number]; Total depression score: 1 History of [...] patient returns to clinic today for follow-up visit.?? She does not report any??persistent new symptoms. ??Over the past week, she has been??feeling slightly more short of breath, associated witha dry cough.?? No new neurologic symptoms.?? Unfortunately, she still has her port in place. ??She tell me she did not pass her physical due to??mild hypertension Review of Systems Remaining 14 point comprehensive review of systems within normal limits. NCCN Distress Thermometer and Problem List were collected and documented in the patient chart.?? Remarkable symptoms and concerns were discussed with the patient.?? Any additional follow-up is indicated in the plan. Past Medical and Surgical History Unchanged Current Medications Medication List Name Date Vitamin D3 (Cholecalciferol Oral) 2023 Vitamin F73-Qgyuk Acid Oral 500 mcg-400 mcg 11/13/2022 Gabapentin [...] ?? Lymphatics: No palpable lymphadenopathy Lungs: Clear Genetics/Molecular/Biomarkers [...] Chemistries Lab Results 08/14/2024 04/03/2024 02/14/2024 08/10/2023 06/07/1902/08/2023 Chemistries Glucose mg/dL 95 84 87 84 BUN mg/dL 25.0 (H) 18.0 (H) 17.0 17.0 Creatinine mg/dL 0.90 0.80 0.70 0.86 Sodium mmol/L 137 137 139 141 Potassium mmol/L 4.5 4.4 4.2 4.5 Chloride mmol/L 109 (H) 109 (H) 106 109 CO2 mmol/L 24 24 25 Calcium mg/dL 8.7 9.2 9.4 [...]
--- OUTSIDE RECORDS SUMMARY | 2024-09-18 08:41 | XMS_ITS | Clinical Summary ---
Author Organization [employer] [facility] Address [address] [place] [address] Care Team Providers Care Kit Planner Name Role Phone Alvino Tracey MD Unavailable Dheeraj Valero Unavailable [phone] Staff, Other Clinical Unavailable UnavailAnnie Frey MD Primary Care Provider [phone] Allergies Active Allergy Reactions Criticality Noted Date [...] Immunization Administration Dates Next Due COVID-19 vaccine (Turbulenz 30mcg/0.3mL) [place] Gregorio 06/07/2020,05/17/2020 Influenza, High-dose Inactivated 12/24/2014 Influenza, High-dose Quadrivalent Inactivated Influenza, Inactivated IIV3 (Age 65+ Years) Preserv Free 12/15/2017 Pneumococcal Poly,23-Valent (Pneumovax) 12/16/19 18 Pneumococcal conj 13-Valent (Prevnar 13) 017 Td (Age >=7 Years) 03/15/1998 Tdap 08/24/2008,08/24/2008 Family History Medical History Relation Name Comments Hyperlipidemia Brother Alcohol/Drug Father Allergies Father Arthritis Father osteoarthritis Heart Disease Father [place] Hypertension Father Other Father MIGRAINES Cancer-breast Maternal [...] on file Legal Sex Female 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 Gender Identity Not on file Sexual Orientation [...] series (2023- season) 2023 12/17/2020, 06/07/2020, 05/17/2020 RSV vaccine for adults or (1 - 1-dose 75+ series) 02/20/2024 Influenza Vaccine (#1) 2024 12/15/2017, 2014 DEXA/DXA scan for age 65+ Completed 10/05/2014, [...] Results * (ABNORMAL) OCCULT BLOOD IFOBT STOOL [[id number]] (12/20/2017 9:30 AM CDT) STOOL BLOOD ,IFOBT Positive(A ) Negative 12/21/2017 2:24 PM CDT [facility] Stool STOOL SPECIMEN / Unknown Non-Blood / Unknown 12/20/2017 9:30 AM CDT 12/21/2017 2:18 PM CDT Shani Burrell NP LABORATORY F inal Result [facility] [address] [place] [address], [place] [phone] * (ABNORMAL) LIPID PANEL W REFLEX MEASURED LDL (11/26/2016 10:46 AM CDT) CHOLESTEROL,TOTAL 202(H) 100 - 199 mg/dL 11/26/2016 5:51 PM CDT [facility] TRAL LABORATORY TRIGLYCERIDES 92 <150 mg/dL 11/26/2016 5:51 PM CDT [facility] HDL CHOLESTEROL 60 >40 mg/dL 7 5:51 PM CDT [facility] NON-HDL CHOLESTEROL 142 <145 mg/dl 11/26/2016 5:51 PM CDT [facility] CHOL/HDL RATIO 3.37 <4.50 11/26/2016 5:51 PM CDT [facility] LDL CHOLESTEROL 124 <=130 mg/dL 11/26/2016 5:51 PM CDT [facility] PATIENT STATUS FASTING 11/26/2016 5:51 PM CDT [facility] Blood BLOOD SPECIMEN / Unknown Venipuncture / Unknown 11/26/2016 10:46 AM CDT 11/26/2016 10:46 AM CDT Shani Burrell NP CHEMISTRY F inal Result [facility] [address] [place] [address], [place] * XR DXA BONE DENSITY 2 SITES (10/05/2014 9:10 AM CDT) Anatomical Region Laterality Modality Spine, HIPS, HIPL, HIPR Other Narrative 10/10/2014 9:27 AM CDT Please see scanned document for results of this study. Shani Burrell NP DEXA F inal Result from Last 3 Months or Most Recently Relevant to Health Maintenance Insurance MEDICARE PART B HB ONLY MEDICA PRIME SOLUTION HB MEDICARE PART A HB ONLY [facility] MR Advance Directives Documents on File Type Date Recorded Patient Senior Sql Database Developer Expl anation Healthcare Directive 10/02/2010 [place] [facility] DIRECTIVE, [facility], 09/26/10 * Full Code (Latest Code Status on File) Date Activated Date Inactivated Comments 10/23/2020 8:13 AM 10/23/2020 1:08 PM Question Answer Comments Code Status Discussion: Per Existing Order Care Teams Kit Planner Relationship Specialty Start Date End Date Annie Worthington MD [address] [place] [address] PCP - General Internal Medicine 10/16/20 Alvino Tracey MD Surgery - Orthopedics 09/22/13 Dheeraj Valero [address] [place] [id number] Snowboarder 09/22/13 Staff, Other Clinical . Dentistry - General 11/26/16
--- OUTSIDE RECORDS SUMMARY | 2024-09-18 08:41 | XMS_ITS ---
Author Name Interface, [id number] lity Address [address] [facility] [address] [address] [facility] Oncology Address [address] [facility] [address] [place] [address] Allergies and Adverse Reactions Medication/Group Name Reaction Severity Date amoxicillin 09/04/2024 Penicillins 09/04/2024 nitrofurantoin Hives 09/04/2024 ciprofloxacin Hives 09/04/2024 Plan Date Type Value 09/04/2024 APPOINTMENT OV [...] & w /o contrast Reason for Visit OV 20 MIN Encounters Date Name 02/18/2024 Anemia 02/18/2024 [...] Lab Address 04/03 Misc other lab See scrubber system attendant d 08/14 CMP Album in g/dL 3.5 5.0 3.7 FINAL Oziel Box * [facility] , [address] [facility] [phone] 0 08/14 CMP Alkal ine phosp hatas e U/L 36.0 125.0 68 FINAL Oziel Box * [facility] , [address] [facility] [id number] 0 08/14 CMP ALT/S GPT U/L 0.0 34.0 10 FINAL Oziel Box * [facility] , [address] [facility] [id number] 0 08/14 CMP AST/S GOT U/L 14.0 36.0 28 FINAL Oziel Box * [facility] , [address] [facility] [id number] 0 08/14 CMP BUN mg/dL 7.0 17.0 25.0 High FINAL Oziel Box * [facility] , [address] [facility] [id number] 0 08/14 CMP Calci um mg/dL 8.4 10.2 8.7 FINAL Oziel Box * [facility] , [address] [facility] [id number] 0 08/14 CMP Chlor vipin mmol/L 96.0 107.0 109 High FINAL Oziel Box * [facility] , [address] [facility] [id number] 0 08/14 CMP CO2 mmol/L 22.0 30.0 [...] hour stability window. FINAL Oziel Box * [facility] , [address] [facility] [id number] 0 08/14 CMP Creat inine mg/dL 0.66 1.25 0.90 FINAL Oziel Box * [facility] , [address] [facility] [id number] 0 08/14 CMP GFR estim ate ml/min /1.73m ^2 66.5 GFR is calculate d using the CKD-EPI equation. FINAL Oziel Box * [facility] , [address] [facility] [id number] 0 08/14 CMP Gluco se mg/dL 74.0 100.0 95 FINAL Oziel Box * [facility] , [address] [facility] [id number] 0 08/14 CMP Potas sium mmol/L 3.5 5.1 4.5 FINAL Oziel Box * [facility] , [address] [facility] [id number] 0 08/14 CMP Sodiu m mmol/L 137.0 145.0 137 FINAL Oziel Box * [facility] , [address] [facility] [id number] 0 08/14 CMP Bilir ubin, total mg/dL 0.2 1.3 0.8 FINAL Oziel Box * [facility] , [address] [facility] [id number] 0 08/14 CMP Total prote in g/dL 6.3 8.2 6.5 FINAL Oziel Box * [facility] , [address] [facility] [id number] 0 08/14 CBC w/ auto diff WBC K/uL 3.0 8.9 4.7 FINAL Oziel Box [place] [facility] [place] [facility] , [address] [place] [id number] 0 08/14 CBC w/ auto diff HGB g/dL 11.3 15.2 11.5 FINAL Oziel Box [place] [facility] [place] [facility] , [address] [place] [id number] 0 08/14 CBC w/ auto diff PLT K/uL 113.0 364.0 211 FINAL Oizel Box [place] [facility] [place] [facility] , [address] [place] [id number] 0 08/14 CBC w/ auto diff Dave # (ANC) K/uL 1.6 6.6 2.9 FINAL Oziel Box [place] [facility] [place] [facility] , [address] [place] [id number] 0 08/14 CBC w/ auto diff Dave % % 43.0 74.0 61.3 FINAL Oziel Box [place] [facility] [place] [facility] , [address] [place] [id number] 0 08/14 CBC w/ auto diff IG % % 0.0 0.5 0.2 FINAL Oziel Box [place] [facility] [place] [facility] , [address] [place] [id number] 0 08/14 CBC w/ auto diff IG # K/uL 0.0 0.03 0.01 FINAL Oziel Box [place] [facility] [place] [facility] , [address] [place] [id number] 0 08/14 CBC w/ auto diff LY % % 14.0 41.0 25.6 FINAL Oziel Box [place] [facility] [place] [facility] , [address] [place] [id number] 0 08/14 CBC w/ auto diff MO % % 6.0 15.0 8.7 FINAL Oziel Box [place] [facility] [place] [facility] , [address] [place] [id number] 0 08/14 CBC w/ auto diff EO % % 0.0 7.0 3.8 FINAL Oziel Box [place] [facility] [place] [facility] , [address] [place] [id number] 0 08/14 CBC w/ auto diff BA % % 0.0 2.0 0.4 FINAL Oziel Box [place] [facility] [place] [facility] , [address] [place] [id number] 0 08/14 CBC w/ auto diff LY # K/uL 0.4 3.6 1.2 FINAL Oziel Box [place] [facility] [place] [facility] , [address] [place] [id number] 0 08/14 CBC w/ auto diff MO # K/uL 0.2 1.3 0.4 FINAL Oziel Box [place] [facility] [place] [facility] , [address] [place] [id number] 0 08/14 CBC w/ auto diff EO # K/uL 0.0 0.6 0.2 FINAL Oziel Box [place] [facility] [place] [facility] , [address] [place] [id number] 0 08/14 CBC w/ auto diff BA # K/uL 0.0 0.2 0.0 FINAL Oziel Box [place] [facility] [place] [facility] , [address] [place] [id number] 0 08/14 CBC w/ auto diff NRBC % #/100W BC 0.0 0.2 0.0 FINAL Oziel Box [place] [facility] [place] [facility] , [address] [place] [id number] 0 08/14 CBC w/ auto diff RBC M/uL 3.9 5.1 3.60 Low FINAL Oziel Box [place] [facility] [place] [facility] , [address] [place] [id number] 0 08/14 CBC w/ auto diff HCT % 35.0 48.0 35.2 FINAL Oziel Box [place] [facility] [place] [facility] , [address] [place] [id number] 0 08/14 CBC w/ auto diff MCV fL 80.0 104.0 97.8 FINAL Oziel Box [place] [facility] [place] [facility] , [address] [place] [phone] 0 08/14 CBC w/ auto diff MCH pg 26.0 35.0 31.9 FINAL Oziel Box [place] [facility] [place] [facility] , [address] [place] [id number] 0 08/14 CBC w/ auto diff MCHC g/dL 30.0 35.0 32.7 FINAL Oziel Box [place] [facility] [place] [facility] , [address] [place] [id number] 0 08/14 CBC w/ auto diff MPV fL 9.5 13.4 9.0 Low FINAL Oziel Box [place] [facility] [place] [facility] , [address] [place] [id number] 0 08/14 CBC w/ auto diff RDW % 11.4 16.1 13.60 FINAL Oziel Box [place] [facility] [place] [facility] , [address] [place] [phone] 0 Medications Date Name Route Dose Frequency Instructions Start Date End Date Status Baclofen Oral daily act charles Vitamin K12-Qsavx Acid Oral 500 mcg-400 mcg daily active [...] concentration must be 0.3-1.2 mg/mL.Administ er using Yyn-QQAH-dkrug ining equipment and through an in-line 0.22 [...] Date Vitamin D3 (Cholecalciferol Oral) 2023 Vitamin D95-Xmgjq Acid Oral 500 mcg-400 mcg 11/13/2022 Gabapentin [...] BSA: 2.06, BMI: 36.56 kg/m2 Covid-19 vaccine ([employer]) (12/18/2020), Elsewhere; Covid-19 vaccine ([employer]) (10/09/2020), Elsewhere; Covid-19 vaccine ([employer]) (04/14/2021), Elsewhere; Flu vaccine - Adult (02/18/2024), [...] Oral 02/18/2024 Docusate Sodium Oral 02/18/2024 Vitamin Z76-Wrcxf Acid Oral 500 mcg-400 mcg 11/13/2022 Levothyroxine [...] signed by Oziel Box MD 02/21/2024 11:02 LEAD 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
--- OUTSIDE RECORDS SUMMARY | 2024-09-18 08:41 | XMS_ITS | CCD ---
Author Name Interface, [id number] lity Address [address] [facility] [address] [address] [facility] Oncology Address [address] [facility] [address] [address] Care Team Providers Care Repairer Screen Crusher Name Role Phone Oziel Box MD Unavailable [...] 0 0 07/02/2021 Karnofsky performance status 100 Immunizations Date Name Route Dose Instructions Refusal Reason Stat us Flu vaccine - Adult Patient declined/rejected Not Administered Diagnostic Results Date Type Test Units Lower Limit Upper Limit Result Flag Comments Status Ordered By Specimen Source Lab Address 04/03 [facility] [place] [place] other lab 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 d 08/14 CBC w/ auto diff Dave # (ANC) K/uL 1.6 6.6 2.9 [facility]AL [facility] , [address] [place] [address] d [address] [place] [id number] 0 08/14 CBC w/ auto diff IG % % 0.0 0.5 0.2 FINAL [facility] , [address] [facility] [address] [place] [id number] 0 08/14 CBC w/ auto diff MO # K/uL 0.2 1.3 0.4 FINAL Oziel Box [facility] , [address] [place] [id number] 0 08/14 CBC w/ auto diff MCV fL 80.0 104.0 97.8 FINAL [facility] , [facility] [address] [place] [id number] 0 08/14 CBC w/ auto diff IG # K/uL 0.0 0.03 0.01 FINAL Oziel Box [place] [facility] [place] [facility] , [address] [place] [id number] 0 08/14 CBC w/ auto diff MO % % 6.0 15.0 8.7 FINAL Oziel Box [place] [facility] [place] [facility] , [address] [place] [id number] 0 08/14 CBC w/ auto diff EO # K/uL 0.0 0.6 0.2 FINAL Oziel Box [place] [facility] [place] [facility] , [address] [place] [id number] 0 08/14 CBC w/ auto diff EO % % 0.0 7.0 3.8 FINAL Oziel Box [place] [facility] [place] [facility] , [address] [place] [id number] 0 08/14 CBC w/ auto diff RBC M/uL 3.9 5.1 3.60 Low FINAL Oziel Box [place] [facility] [place] [facility] , [address] [place] [id number] 0 08/14 CBC w/ auto diff MPV fL 9.5 13.4 9.0 Low FINAL Oziel Box [place] [facility] [place] [facility] , [address] [place] [id number] 0 08/14 CBC w/ auto diff WBC K/uL 3.0 8.9 4.7 FINAL Oziel Box [place] [facility] [place] [facility] , [address] [place] [id number] 0 08/14 CBC w/ auto diff PLT K/uL 113.0 364.0 211 FINAL Oziel Box [place] [facility] [place] [facility] , [address] [place] [id number] 0 08/14 CBC w/ auto diff BA % % 0.0 2.0 0.4 FINAL Oziel Box [place] [facility] [place] [facility] , [address] [place] [id number] 0 08/14 CBC w/ auto diff BA # K/uL 0.0 0.2 0.0 FINAL Oziel Box [place] [facility] [place] [facility] , [address] [place] [id number] 0 08/14 CBC w/ auto diff HGB g/dL 11.3 15.2 11.5 FINAL Oziel Box [place] [facility] [place] [facility] , [address] [place] [id number] 0 08/14 CBC w/ auto diff RDW % 11.4 16.1 13.60 FINAL Oziel Box [place] [facility] [place] [facility] , [address] [place] [id number] 0 08/14 CBC w/ auto diff LY % % 14.0 41.0 25.6 FINAL Oziel Box [place] [facility] [place] [facility] , [address] [place] [id number] 0 08/14 CBC w/ auto diff LY # K/uL 0.4 3.6 1.2 FINAL Oziel Box [place] [facility] [place] [facility] , [address] [place] [id number] 0 08/14 CBC w/ auto diff MCH pg 26.0 35.0 31.9 FINAL Oziel Box [place] [facility] [place] [facility] , [address] [place] [id number] 0 08/14 CBC w/ auto diff MCHC g/dL 30.0 35.0 32.7 FINAL Oziel Box [facility] , [address] [facility] [address] [facility] [id number] 0 08/14 CBC w/ auto diff NRBC % #/100W BC 0.0 0.2 0.0 FINAL Oziel Box [facility] , [address] [facility] [address] [facility] [id number] 0 08/14 CBC w/ auto diff HCT % 35.0 48.0 35.2 FINAL Oziel Box [facility] , [address] [facility] [address] [facility] [id number] 0 08/14 CBC w/ auto diff Dave % % 43.0 74.0 61.3 FINAL Oziel Box [facility] , [address] [facility] [address] [facility] [id number] 0 08/14 CMP Alkal ine phosp hatas e U/L 36.0 125.0 68 FINAL Oziel Box * [facility] , [address] [id number] 0 08/14 CMP ALT/S GPT U/L 0.0 34.0 10 FINAL Oziel Box * [facility] , [address] [facility] [address] [facility] [id number] 0 08/14 CMP Calci um mg/dL 8.4 10.2 8.7 FINAL Oziel Box * [facility] , [address] [facility] [address] [id number] 0 08/14 CMP GFR estim ate ml/min /1.73m ^2 66.5 GFR is calculate d using the CKD-EPI equation. FINAL Oziel Box * [facility] , [address] [facility] [address] [facility] [id number] 0 08/14 CMP CO2 mmol/L 22.0 30.0 [...] [facility] , [facility] [address] [facility] [id number] 0 08/14 CMP Gluco se mg/dL 74.0 100.0 95 FINAL Oziel Box * [facility] , [facility] [address] [id number] 0 08/14 CMP Chlor vipin mmol/L 96.0 107.0 109 High FINAL Oziel Box * [facility] , [address] [facility] [address] [id number] 0 08/14 CMP Total prote in g/dL 6.3 8.2 6.5 FINAL Oziel Box * [facility] , [address] [facility] [address] [id number] 0 08/14 CMP BUN mg/dL 7.0 17.0 25.0 High FINAL Oziel Box * [facility] , [address] [facility] [address] [id number] 0 08/14 CMP Creat inine mg/dL 0.66 1.25 0.90 FINAL Oziel Box * [facility] , [address] [facility] [address] [id number] 0 08/14 CMP AST/S GOT U/L 14.0 36.0 28 FINAL Oziel Box * [facility] , [facility] [address] [id number] 0 08/14 CMP Album in g/dL 3.5 5.0 3.7 FINAL Oziel Box * [facility] , [facility] [address] [id number] 0 08/14 CMP Bilir ubin, total mg/dL 0.2 1.3 0.8 FINAL Oziel Box * [facility] , [facility] [address] [id number] 0 08/14 CMP Sodiu m mmol/L 137.0 145.0 137 FINAL Oziel Box * [facility] , [facility] [address] [id number] 0 08/14 CMP Potas sium mmol/L 3.5 5.1 4.5 FINAL Oziel Box * [facility] , [facility] [address] [id number] 0 Medications Date Name Route Dose Frequency Instructions Start Date End Date Status Gabapentin Oral QD a ctive Diphenhydramine Oral PRN inactive Sennosides Oral orally 1.0 tablet daily inactive Vitamin H60-Bqaqv Acid Oral 500 mcg-400 mcg daily active Cephalexin Oral Star ting for 10 days for UTI inactive Docusate Sodium Oral QD inactive Baclofen Oral daily act charles Calcium Carbonate Oral QD active Clindamycin Oral BID inactive Multivitamins Oral Tablet daily inactive Magnesium Oxide Oral daily stopped Prednisone Oral daily 40mg daily stopped Probiotics Oral daily i nactive [...] inactive Turmeric (Curcumin) Oral 1000.0 inac tive Omeprazole Oral Delayed Release Tablet po 1.0 daily 40mg. inactive Probiotics Oral i nactive Trazodone Oral 100.0 mg daily @HS inactive Acetaminophen Oral capsule Q8H prn stopped Ibuprofen Oral po prn st opped Escitalopram Oral daily active Zinc Oral po 1.0 daily inactiv e 2023 levothyroxine sodium 0.075 MG Oral Tablet [...] from 07/2023 Ordered 02/18/2024 Physician Order RTC Ordered 05/01/2024 Physician Order Port removal Ordered 07/26/[address] chest/abdomen/pelvis w/ IV contrast metastatic lung cancer surveillance currently GI Ordered 08/18/2024 Physician Order MRI brain w/ & w /o contrast metastatic lung cancer, APPRENTICE CARPENTER surveillance Ordered 08/18/2024 Physician Order RTC Ordered 09/05/2024 Physician Order Port removal Ordered 03/06/[address] chest/abdomen/pelvis w/ IV contrast h/o oligometastatic lung cancer, now GI. 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
--- OUTSIDE RECORDS SUMMARY | 2024-09-18 08:41 | XMS_ITS ---
Author Name Interface, [id number] lity Address [address] [facility] [address] [address] [facility] Oncology Address [address] [facility] [address] [address] Allergies and Adverse Reactions Medication/Group Name Reaction [...] Status Baclofen Oral daily act charles Vitamin G60-Zkzty Acid Oral 500 mcg-400 mcg daily active [...] concentration must be 0.3-1.2 mg/mL.Administ er using Rib-MYHD-owclr ining equipment and through an in-line 0.22 [...] Date Vitamin D3 (Cholecalciferol Oral) 2023 Vitamin U08-Aobeg Acid Oral 500 mcg-400 mcg 11/13/2022 Gabapentin [...]
--- OUTSIDE RECORDS SUMMARY | 2024-09-18 08:41 | XMS_ITS ---
Author Name Interface, [id number] l[employer] Address [address] [address] [facility] Address [address] [address] Allergies and Adverse Reactions Medication/Group Name Reaction [...] 20 MIN 05/13/2022 APPOINTMENT CHART CHECK 5 DC N 05/08/2022 APPOINTMENT OV 20 MIN 05/08/2022 [...] 15 MIN 02/20/2022 APPOINTMENT CHART CHECK 5 DC N 01/16/2022 APPOINTMENT PORT DRAW 15 MIN [...] Visit OV 20 MIN Encounters Date Name 10/24/2021 Anemia 10/24/2021 [...] WBC K/uL 3.0 8.9 5.5 FINAL [facility] [place], [address] [place] [facility] [phone] Phone: () - 10/24 CBC w/ auto diff HGB g/dL 11.3 15.2 12.0 FINAL [facility] [place], [address] [place] [facility] [phone] 0 Phone: () - 10/24 CBC w/ auto diff PLT K/uL 113.0 364.0 211 FINAL [facility] [place], [address] [place] [facility] [id number] 0 Phone: () - 10/24 CBC w/ auto diff Dave # (ANC) K/uL 1.6 6.6 3.4 FINAL [facility] [place], [address] [place] [phone] 0 Phone: () - 10/24 CBC w/ auto diff Dave % % 43.0 74.0 62.4 FINAL Lia Tolbert [facility] [place], [address] [address] [place] [id number] 0 Phone: () - 10/24 CBC w/ auto diff IG % % 0.0 0.5 1.1 High FINAL Lia T[facility]leyot a [facility] - [place], [address] [place] [phone] 0 Phone: () - 10/24 CBC w/ auto diff IG # K/uL 0.0 0.03 0.06 High FINAL Lia Tolbert [facility] [place], [address] [place] [phone] 0 Phone: () - 10/24 CBC w/ auto diff LY % % 14.0 41.0 22.2 FINAL Lia Tolbert [facility] [place], [address] [place] [id number] 0 Phone: () - 10/24 CBC w/ auto diff MO % % 6.0 15.0 10.1 FINAL Lia Tolbert [facility] [place], [address] [place] [phone] 0 Phone: () - 10/24 CBC w/ auto diff EO % % 0.0 7.0 3.8 FINAL Lia Tolbert [facility] [place], [address] [place] [phone] 0 Phone: () - 10/24 CBC w/ auto diff BA % % 0.0 2.0 0.4 FINAL Lia Tilleyot a [facility] - [place], [address] [facility] [place] [id number] 0 Phone: () - 10/24 CBC w/ auto diff LY # K/uL 0.4 3.6 1.2 FINAL Lia Tilleyot a [facility] - [place], [address] [place] [phone] 0 Phone: () - 10/24 CBC w/ auto diff MO # K/uL 0.2 1.3 0.6 FINAL Lia Tilleyot a [facility] - [place], [address] [place] [phone] 0 Phone: () - 10/24 CBC w/ auto diff EO # K/uL 0.0 0.6 0.2 FINAL Lia Tilleyot a [facility] - [place], [address] [place] [phone] 0 Phone: () - 10/24 CBC w/ auto diff BA # K/uL 0.0 0.2 0.0 FINAL Lia Tilleyot a [facility] - [place], [address] [place] [id number] 0 Phone: () - 10/24 CBC w/ auto diff NRBC % #/100W BC 0.0 0.2 0.0 FINAL Lia Tolbert [facility] [place], [address] [place] [id number] 0 Phone: () - 10/24 CBC w/ auto diff RBC M/uL 3.9 5.1 3.62 Low FINAL Lia Tolbert [facility] [place], [address] [place] [id number] 0 Phone: () - 10/24 CBC w/ auto diff HCT % 35.0 48.0 35.7 FINAL Lia Tolbert [facility] [place], [address] [place] [id number] 0 Phone: () - 10/24 CBC w/ auto diff MCV fL 80.0 104.0 98.6 FINAL Lia Tilleyot a [facility] - [place], [address] [place] [id number] 0 Phone: () - 10/24 CBC w/ auto diff MCH pg 26.0 35.0 33.1 FINAL Lia Tilley gi [facility] - [place], [address] [facility] [address] [place] [phone] 0 Phone: () - 10/24 CBC w/ auto diff MCHC g/dL 30.0 35.0 33.6 FINAL Lia Tilley gi [facility] - [place], [address] [place] [id number] 0 Phone: () - 10/24 CBC w/ auto diff MPV fL 9.5 13.4 9.1 Low FINAL Lia Tilley gi [facility] - [place], [address] [place] [id number] 0 Phone: () - 10/24 CBC w/ auto diff RDW % 11.4 16.1 12.20 FINAL Lia Tilley gi [facility] - [place], [address] [place] [id number] 0 Phone: () - 10/24 TSH w/ refle x to free T4 TSH uIU/ml 0.32 5.0 0.05 Low Test performed at [facility] on a [email or web address] 2000 Immunoass ay Analyzer that uses an immunoenz ymometric sandwich assay for analysis. Patient testing should not be performed using multiple methodharley amador due to analytica l variation seen between test methodharley amador. FINAL Lia Delgado [facility], [address] [place] [address] [place] [phone] 0 Phone: () - 10/24 CMP Album in g/dL 3.2 5.2 4.3 FINAL Liagi Delgado [facility], [address] [place] [id number] 0 Phone: () - 10/24 CMP Alkal ine phosp hatas e U/L 46.0 116.0 59 FINAL [facility], [address] [place] [id number] 0 Phone: () - 10/24 CMP ALT/S GPT U/L 7.0 40.0 12 FINAL [facility], [address] [facility] [id number] 0 Phone: () - 10/24 CMP AST/S GOT U/L 13.0 40.0 22 FINAL [facility], [address] [facility] 100 [facility] [id number] 0 Phone: () - 10/24 CMP BUN mg/dL 9.0 23.0 16 FINAL [place] [address] [facility] 100 [facility] [id number] 0 Phone: () - 10/24 CMP Calci um mg/dL 8.7 10.4 9.7 FINAL [place] [address] [facility] 100 [facility] [id number] 0 Phone: () - 10/24 CMP Chlor vipin mmol/L 96.0 114.0 110 [place] [address] [id number] 0 Phone: () - 10/24 CMP CO2 [...] of the 96 hour stability window. FINAL [facility], [facility] [address] [id number] 0 Phone: () - 10/24 CMP Creat inine mg/dL 0.5 1.2 0.83 FINAL [facility], [facility] [address] [id number] 0 Phone: () - 10/24 CMP GFR estim ate ml/min /1.73m ^2 74.5 GFR is calculate d using the CKD-EPI equation. [facility], [facility] [address] [facility] 100 [facility] [phone] 0 Phone: () - 10/24 CMP Gluco se mg/dL 73.0 126.0 87 [facility], [address] [id number] 0 Phone: () - 10/24 CMP Potas sium mmol/L 3.5 5.1 4.4 FINAL [facility] [address] [id number] 0 Phone: () - 10/24 CMP Sodiu m mmol/L 136.0 145.0 145 FINAL [facility] [address] [id number] 0 Phone: () - 10/24 CMP Bilir ubin, total mg/dL 0.3 1.2 0.4 [place] [address] [id number] 0 Phone: () - 10/24 CMP Total prote in g/dL 5.7 8.2 6.4 FINAL [place] [address] [id number] 0 Phone: () - 10/24 T4, free panel T4, free ng/dL 0.7 1.8 1.62 Test performed at [facility] on a [email or web address] 2000 Immunoass ay Analyzer that uses an immunoenz ymometric sandwich assay for analysis. Patient testing should not be performed using multiple methodolo gies due to analytica l variation seen between test methodolo gies. FINAL [place] [address] [id number] 0 Phone: () - 11/21 TSH w/ refle x to free T4 TSH uIU/ml 0.32 5.0 0.16 Low Test performed at [facility] on a [email or web address] 2000 Immunoass ay Analyzer that uses an immunoenz ymometric sandwich assay for analysis. Patient testing should not be performed using multiple methodolo gies due to analytica l variation seen between test methodolo gies. FINAL [facility] [address] [id number] 0 Phone: () - 11/21 CBC w/ auto diff WBC K/uL 3.0 8.9 4.1 FINAL [facility] [place], [address] [place] [id number] 0 Phone: () - 11/21 CBC w/ auto diff HGB g/dL 11.3 15.2 11.8 FINAL Lia Tilleyot a [facility] [place], [address] [place] [id number] 0 Phone: () - 11/21 CBC w/ auto diff PLT K/uL 113.0 364.0 223 FINAL Lia Tilleyot a [facility] - [place], [address] [place] [id number] 0 Phone: () - 11/21 CBC w/ auto diff Dave # (ANC) K/uL 1.6 6.6 2.3 FINAL Lia Tolbert [facility] - [place], [address] [place] [id number] 0 Phone: () - 11/21 CBC w/ auto diff Dave % % 43.0 74.0 56.3 FINAL Lia Tolbert [facility] [place], [address] [place] [id number] 0 Phone: () - 11/21 CBC w/ auto diff IG % % 0.0 0.5 0.2 FINAL Lia Tolbert [facility] - [place], [address] [place] [id number] 0 Phone: () - 11/21 CBC w/ auto diff IG # K/uL 0.0 0.03 0.01 FINAL Lia Tilleyot a [facility] - [place], [address] [place] [id number] 0 Phone: () - 11/21 CBC w/ auto diff LY % % 14.0 41.0 29.0 FINAL Lia Tilleyot a [facility] - [place], [address] [place] [id number] 0 Phone: () - 11/21 CBC w/ auto diff MO % % 6.0 15.0 10.4 FINAL Lia Tilleyot a [facility] - [place], [address] [place] [id number] 0 Phone: () - 11/21 CBC w/ auto diff EO % % 0.0 7.0 3.9 FINAL Lia Tilleyot a [facility] - [place], [address] [place] [id number] 0 Phone: () - 11/21 CBC w/ auto diff BA % % 0.0 2.0 0.2 FINAL Lia Tilleyot a [facility] - [place], [address] [place] [id number] 0 Phone: () - 11/21 CBC w/ auto diff LY # K/uL 0.4 3.6 1.2 FINAL Lia Tilleyot a [facility] - [place], [address] [place] [id number] 0 Phone: () - 11/21 CBC w/ auto diff MO # K/uL 0.2 1.3 0.4 FINAL Lia Tilleyot a [facility] - [place], [address] [place] [id number] 0 Phone: () - 11/21 CBC w/ auto diff EO # K/uL 0.0 0.6 0.2 FINAL Lia Tilleyot a [facility] [place], [address] [place] [id number] 0 Phone: () - 11/21 CBC w/ auto diff BA # K/uL 0.0 0.2 0.0 FINAL Lia Tilleyot a [facility] - [place], [address] [place] [id number] 0 Phone: () - 11/21 CBC w/ auto diff NRBC % #/100W BC 0.0 0.2 0.0 FINAL Lia Tilleyot a [facility] - [place], [address] [place] [id number] 0 Phone: () - 11/21 CBC w/ auto diff RBC M/uL 3.9 5.1 3.69 Low FINAL Lia Tilleyot a [facility] - [place], [address] [facility] [facility] [address] [place] [id number] 0 Phone: () - 11/21 CBC w/ auto diff HCT % 35.0 48.0 35.6 FINAL Lia Tilleyot gi [facility] - [place], [address] [place] [id number] 0 Phone: () - 11/21 CBC w/ auto diff MCV fL 80.0 104.0 96.5 FINAL Lia Tilleyot a [facility] - [place], [address] [place] [address] d [address] [place] [id number] 0 Phone: () - 11/21 CBC w/ auto diff MCH pg 26.0 35.0 32.0 FINAL Lia angelo [facility] - [place], [address] [facility] [address] [place] [id number] 0 Phone: () - 11/21 CBC w/ auto diff MCHC g/dL 30.0 35.0 33.1 FINAL Lia angelo [facility] - [place], [address] [facility] [facility] [address] [place] [id number] 0 Phone: () - 11/21 CBC w/ auto diff MPV fL 9.5 13.4 9.0 Low FINAL Lia angelo [facility] - [place], [address] [place] [id number] 0 Phone: () - 11/21 CBC w/ auto diff RDW % 11.4 16.1 12.40 FINAL Lia Tolbert a [facility] - [place], [facility] [address] [place] [id number] 0 Phone: () - 11/21 CMP Album in g/dL 3.2 5.2 4.1 FINAL Lia Tilley a [facility] - [place], [address] [place] [id number] 0 Phone: () - 11/21 CMP Alkal ine phosp hatas e U/L 46.0 116.0 52 FINAL [facility], [address] [facility] [address] [id number] 0 Phone: () - 11/21 CMP ALT/S GPT U/L 7.0 40.0 17 FINAL [place] [address] [address] [facility] [address] [id number] 0 Phone: () - 11/21 CMP AST/S GOT U/L 13.0 40.0 24 FINAL [place] [address] [id number] 0 Phone: () - 11/21 CMP BUN mg/dL 9.0 23.0 14 FINAL [place] [address] [address] [facility] [address] [id number] 0 Phone: () - 11/21 CMP Calci um mg/dL 8.7 10.4 9.3 FINAL [place] [address] [address] [facility] [address] [id number] 0 Phone: () - 11/21 CMP Chlor vipin mmol/L 96.0 114.0 111 FINAL [place] [address] [address] [facility] [address] [id number] 0 Phone: () - 11/21 CMP CO2 [...] of the 96 hour stability window. FINAL [facility], [facility] [address] [place] [address] [phone] 0 Phone: () - 11/21 CMP Creat inine mg/dL 0.5 1.2 0.79 FINAL [place] [address] [id number] 0 Phone: () - 11/21 CMP GFR estim ate ml/min /1.73m ^2 79.1 GFR is calculate d using the CKD-EPI equation. FINAL [place] [address] [id number] 0 Phone: () - 11/21 CMP Gluco se mg/dL 73.0 126.0 86 FINAL [place] [address] [id number] 0 Phone: () - 11/21 CMP Potas sium mmol/L 3.5 5.1 4.[address] [id number] 0 Phone: () - 11/21 CMP Sodiu m mmol/L 136.0 145.0 144 FINAL [place] [address] [id number] 0 Phone: () - 11/21 CMP Bilir ubin, total mg/dL 0.3 1.2 0.3 FINAL [place] [address] [id number] 0 Phone: () - 11/21 CMP Total prote in g/dL 5.7 8.2 6.2 FINAL [place] [address] [id number] 0 Phone: () - 11/21 T4, free panel T4, free ng/dL 0.7 1.8 1.13 Test performed at [facility] on a [email or web address] 2000 Immunoass ay Analyzer that uses an immunoenz ymometric sandwich assay for analysis. Patient testing should not be performed using multiple kathi amador due to analytica l variation seen between test kathi amador. FINAL [place] [address] [id number] 0 Phone: () - 12/19 CBC w/ auto diff WBC K/uL 3.0 8.9 4.9 FINAL [facility] [place] [facility] [place], [address] [place] [id number] 0 Phone: () - 12/19 CBC w/ auto diff HGB g/dL 11.3 15.2 11.8 FINAL Oziel Tilleyot a [facility] - [place], [address] [place] [id number] 0 Phone: () - 12/19 CBC w/ auto diff PLT K/uL 113.0 364.0 218 FINAL Oziel Tilleyot a [facility] - [place], [address] [place] [id number] 0 Phone: () - 12/19 CBC w/ auto diff Dave # (ANC) K/uL 1.6 6.6 2.7 FINAL Oziel Tilleyot a [facility] - [place], [address] [place] [id number] 0 Phone: () - 12/19 CBC w/ auto diff Dave % % 43.0 74.0 55.3 FINAL Oziel Tilleyot a [facility] - [place], [address] [place] [id number] 0 Phone: () - 12/19 CBC w/ auto diff IG % % 0.0 0.5 0.2 FINAL Oziel Tilleyot a [facility] - [place], [address] [place] [id number] 0 Phone: () - 12/19 CBC w/ auto diff IG # K/uL 0.0 0.03 0.01 FINAL Oziel Tilleyot a [facility] [place], [address] [place] [id number] 0 Phone: () - 12/19 CBC w/ auto diff LY % % 14.0 41.0 30.6 FINAL Oziel Tilleyot a [facility] [place], [address] [place] [id number] 0 Phone: () - 12/19 CBC w/ auto diff MO % % 6.0 15.0 9.3 FINAL Oziel Tilleyot a [facility] [place], [address] [place] [id number] 0 Phone: () - 12/19 CBC w/ auto diff EO % % 0.0 7.0 4.0 FINAL Oziel Tolbert a [facility] - [place], [address] [place] [id number] 0 Phone: () - 12/19 CBC w/ auto diff BA % % 0.0 2.0 0.6 FINAL Oziel Tolbert a [facility] - [place], [address] [place] [id number] 0 Phone: () - 12/19 CBC w/ auto diff LY # K/uL 0.4 3.6 1.5 FINAL Oziel Tilleyot a [facility] - [place], [address] [place] [id number] 0 Phone: () - 12/19 CBC w/ auto diff MO # K/uL 0.2 1.3 0.5 FINAL Oziel angelo [facility] - [place], [address] [place] [id number] 0 Phone: () - 12/19 CBC w/ auto diff EO # K/uL 0.0 0.6 0.2 FINAL Oziel angelo [facility] - [place], [address] [place] [id number] 0 Phone: () - 12/19 CBC w/ auto diff BA # K/uL 0.0 0.2 0.0 FINAL Oziel angelo [facility] - [place], [address] [place] [id number] 0 Phone: () - 12/19 CBC w/ auto diff NRBC % #/100W BC 0.0 0.2 0.0 FINAL Oziel Tolbert a [facility] - [place], [address] [place] [id number] 0 Phone: () - 12/19 CBC w/ auto diff RBC M/uL 3.9 5.1 3.68 Low FINAL Oziel angelo [facility] - [place], [address] [place] [id number] 0 Phone: () - 12/19 CBC w/ auto diff HCT % 35.0 48.0 35.3 FINAL Oziel angelo [facility] [place], [address] [place] [id number] 0 Phone: () - 12/19 CBC w/ auto diff MCV fL 80.0 104.0 95.9 FINAL Oziel angelo [facility] [place], [address] [place] [id number] 0 Phone: () - 12/19 CBC w/ auto diff MCH pg 26.0 35.0 32.1 FINAL Oziel angelo [facility] - [place], [address] [place] [id number] 0 Phone: () - 12/19 CBC w/ auto diff MCHC g/dL 30.0 35.0 33.4 FINAL Oziel angelo [facility] - [place], [address] [place] [id number] 0 Phone: () - 12/19 CBC w/ auto diff MPV fL 9.5 13.4 9.1 Low FINAL Oziel angelo [facility] - [place], [address] [place] [phone] 0 Phone: () - 12/19 CBC w/ auto diff RDW % 11.4 16.1 13.30 FINAL Oziel angelo [facility] - [place], [address] [place] [id number] 0 Phone: () - 12/19 CMP Album in g/dL 3.2 5.2 4.0 FINAL Oziel angelo [facility] [place], [address] [place] [id number] 0 Phone: () - 12/19 CMP Alkal ine phosp hatas e U/L 46.0 116.0 58 FINAL Oziel angelo [facility], [address] [facility] 100 [facility] [phone] 0 Phone: () - 12/19 CMP ALT/S GPT U/L 7.0 40.0 13 FINAL Oziel angelo [facility] [address] [facility] 100 [facility] [id number] 0 Phone: () - 12/19 CMP AST/S GOT U/L 13.0 40.0 24 FINAL Oziel angelo [place] [address] [address] [facility] [address] [id number] 0 Phone: () - 12/19 CMP BUN mg/dL 9.0 23.0 18 FINAL Oziel angelo [place] [address] [id number] 0 Phone: () - 12/19 CMP Calci um mg/dL 8.7 10.4 9.7 FINAL Oziel angelo [place] [address] [id number] 0 Phone: () - 12/19 CMP Chlor vipin mmol/L 96.0 114.0 111 FINAL Oziel angelo [facility] [address] [id number] 0 Phone: () - 12/19 CMP CO2 [...] 96 hour stability window. FINAL Oziel angelo [facility], [facility] N [facility] [address] [phone] 0 Phone: () - 12/19 CMP Creat inine mg/dL 0.5 1.2 0.82 FINAL Oziel angelo [place] [address] [address] [facility] [address] [phone] 0 Phone: () - 12/19 CMP GFR estim ate ml/min /1.73m ^2 75.6 GFR is calculate d using the CKD-EPI equation. FINAL Oziel angelo [facility], [address] [facility] 100 [facility] [phone] 0 Phone: () - 12/19 CMP Gluco se mg/dL 73.0 126.0 81 FINAL Oziel angelo [facility] [address] [facility] 100 [facility] [id number] 0 Phone: () - 12/19 CMP Potas sium mmol/L 3.5 5.1 4.4 FINAL Oziel angelo [facility] [address] [facility] 100 [facility] [id number] 0 Phone: () - 12/19 CMP Sodiu m mmol/L 136.0 145.0 144 FINAL Oziel angelo [place] [address] [id number] 0 Phone: () - 12/19 CMP Bilir ubin, total mg/dL 0.3 1.2 0.4 FINAL Oziel angelo [place] [address] [address] [facility] [address] [id number] 0 Phone: () - 12/19 CMP Total prote in g/dL 5.7 8.2 6.3 FINAL Oziel angelo [place] [address] [id number] 0 Phone: () - 12/19 TSH w/ refle x to free T4 TSH uIU/ml 0.32 5.0 2.75 Test performed at [facility] on a [email or web address] 2000 Immunoass ay Analyzer that uses an immunoenz ymometric sandwich assay for analysis. Patient testing should not be performed using multiple methodharley amador due to analytica l variation seen between test kathi amador. FINAL Oziel angelo [facility], [address] [facility] 100 [facility] [phone] 0 Phone: () - 01/12 [facility] other lab See front sight attacher d 01/16 CMP Album in g/dL 3.2 5.2 4.3 FINAL Oziel angelo [facility] [address] [facility] 100 [facility] [id number] 0 Phone: () - 01/16 CMP Alkal ine phosp hatas e U/L 46.0 116.0 64 FINAL Oziel angelo [facility], [address] [facility] 100 [facility] [id number] 0 Phone: () - 01/16 CMP ALT/S GPT U/L 7.0 40.0 12 FINAL Oziel angelo [facility] [address] [facility] 100 [facility] [id number] 0 Phone: () - 01/16 CMP AST/S GOT U/L 13.0 40.0 23 FINAL Oziel angelo [place] [address] [address] [facility] [address] [id number] 0 Phone: () - 01/16 CMP BUN mg/dL 9.0 23.0 17 FINAL Oziel angelo [place] [address] [id number] 0 Phone: () - 01/16 CMP Calci um mg/dL 8.7 10.4 9.4 FINAL Oziel angelo [place] [address] [id number] 0 Phone: () - 01/16 CMP Chlor vipin mmol/L 96.0 114.0 108 FINAL Oziel angelo [place] [address] [id number] 0 Phone: () - 01/16 CMP CO2 [...] 96 hour stability window. FINAL Oziel angelo [place] [address] [address] [facility] [address] [id number] 0 Phone: () - 01/16 CMP Creat inine mg/dL 0.5 1.2 1.07 FINAL Oziel angelo [facility] [address] [facility] 100 [facility] [id number] 0 Phone: () - 01/16 CMP GFR estim ate ml/min /1.73m ^2 54.9 Low GFR is calculate d using the CKD-EPI equation. FINAL Oziel angelo [place] [address] [id number] 0 Phone: () - 01/16 CMP Gluco se mg/dL 73.0 126.0 84 FINAL Oziel angelo [place] [address] [address] [facility] [address] [id number] 0 Phone: () - 01/16 CMP Potas sium mmol/L 3.5 5.1 4.4 FINAL Oziel angelo [place] [address] [id number] 0 Phone: () - 01/16 CMP Sodiu m mmol/L 136.0 145.0 141 FINAL Oziel angelo [place] [address] [id number] 0 Phone: () - 01/16 CMP Bilir ubin, total mg/dL 0.3 1.2 0.4 FINAL Oziel angelo [place] [address] [id number] 0 Phone: () - 01/16 CMP Total prote in g/dL 5.7 8.2 6.6 FINAL Oziel angelo [place] [address] [id number] 0 Phone: () - 01/16 TSH w/ refle x to free T4 TSH uIU/ml 0.32 5.0 14.74 High Provider Alert. Notified Vicki by Lynne Flannery on 01/19/2022 at 2:55 PM.Test performed at [facility] on a [email or web address] 2000 Immunoass ay Analyzer that uses an immunoenz ymometric sandwich assay for analysis. Patient testing should not be performed using multiple kathi amador due to analytica l variation seen between test kathi amador. FINAL Oziel angelo [place] [address] [address] [facility] [address] [id number] 0 Phone: () - 01/16 CBC w/ auto diff WBC K/uL 3.0 8.9 4.4 FINAL Oziel angelo [facility], [address] [place] [id number] 0 Phone: () - 01/16 CBC w/ auto diff HGB g/dL 11.3 15.2 11.9 FINAL Oziel T[facility] a [facility] - [place], [address] [place] [id number] 0 Phone: () - 01/16 CBC w/ auto diff PLT K/uL 113.0 364.0 231 FINAL Oziel [facility] - [place], [address] [place] [id number] 0 Phone: () - 01/16 CBC w/ auto diff Dave # (ANC) K/uL 1.6 6.6 2.4 FINAL Oziel angelo [facility] - [place], [address] [place] [id number] 0 Phone: () - 01/16 CBC w/ auto diff Dave % % 43.0 74.0 54.7 FINAL Oziel Tolbert a [facility] - [place], [address] [place] [id number] 0 Phone: () - 01/16 CBC w/ auto diff IG % % 0.0 0.5 0.2 FINAL Oziel [facility] - [place], [address] [place] [id number] 0 Phone: () - 01/16 CBC w/ auto diff IG # K/uL 0.0 0.03 0.01 FINAL Oziel [facility] - [place], [address] [place] [phone] 0 Phone: () - 01/16 CBC w/ auto diff LY % % 14.0 41.0 31.8 FINAL Oziel [facility] [place], [address] [place] [id number] 0 Phone: () - 01/16 CBC w/ auto diff MO % % 6.0 15.0 8.9 FINAL Oziel [facility] [place], [address] [place] [id number] 0 Phone: () - 01/16 CBC w/ auto diff EO % % 0.0 7.0 3.9 FINAL Oziel [facility] [place], [address] [place] [id number] 0 Phone: () - 01/16 CBC w/ auto diff BA % % 0.0 2.0 0.5 FINAL Oziel [facility] [place], [address] [place] [id number] 0 Phone: () - 01/16 CBC w/ auto diff LY # K/uL 0.4 3.6 1.4 FINAL Oziel Tolbert a [facility] - [place], [address] [place] [id number] 0 Phone: () - 01/16 CBC w/ auto diff MO # K/uL 0.2 1.3 0.4 FINAL Oziel [facility] - [place], [address] [place] [id number] 0 Phone: () - 01/16 CBC w/ auto diff EO # K/uL 0.0 0.6 0.2 FINAL [facility] [place], [address] [place] [id number] 0 Phone: () - 01/16 CBC w/ auto diff BA # K/uL 0.0 0.2 0.0 FINAL Oziel [facility] [place], [address] [place] [id number] 0 Phone: () - 01/16 CBC w/ auto diff NRBC % #/100W BC 0.0 0.2 0.0 FINAL Oziel [facility] [place], [address] [place] [id number] 0 Phone: () - 01/16 CBC w/ auto diff RBC M/uL 3.9 5.1 3.69 Low FINAL Oziel [facility] [place] [facility] [place], [address] [place] [id number] 0 Phone: () - 01/16 CBC w/ auto diff HCT % 35.0 48.0 35.0 FINAL Oziel angelo [facility] - [place], [address] [place] [id number] 0 Phone: () - 01/16 CBC w/ auto diff MCV fL 80.0 104.0 94.9 FINAL Oziel angelo [facility] [place], [address] [place] [id number] 0 Phone: () - 01/16 CBC w/ auto diff MCH pg 26.0 35.0 32.2 FINAL Oziel angelo [facility] - [place], [address] [place] [id number] 0 Phone: () - 01/16 CBC w/ auto diff MCHC g/dL 30.0 35.0 34.0 FINAL Oziel angelo [facility] - [place], [address] [place] [id number] 0 Phone: () - 01/16 CBC w/ auto diff MPV fL 9.5 13.4 8.8 Low FINAL Oziel angelo [facility] - [place], [address] [place] [id number] 0 Phone: () - 01/16 CBC w/ auto diff RDW % 11.4 16.1 13.90 FINAL Oziel angelo [facility] - [place], [address] [place] [id number] 0 Phone: () - 01/16 T4, free panel T4, free ng/dL 0.7 1.8 0.75 Test performed at [facility] on a [employer] ay Analyzer that uses an immunoenz ymometric sandwich assay for analysis. Patient testing should not be performed using multiple methodharley amador due to analytica l variation seen between test methodharley amador. FINAL Oziel Tolbert a [facility] - [place], [address] [place] [id number] 0 Phone: () - 02/20 TSH w/ refle x to free T4 TSH uIU/ml 0.32 5.0 Sent to Refer ce Lab. Hard copy results availab le only. Test performed at [facility] on a [employer] Immunoass ay Analyzer that uses an immunoenz ymometric sandwich assay for analysis. Patient testing should not be performed using multiple methodolo marjorie due to analytica l variation seen between test methodolo ginaun. FINAL Oziel angelo Oncology [facility], [address] [facility] [address] [facility] [id number] 0 Phone: () - 02/20 TSH uIU/mL 0.35 4.94 8.74 High In Adults, TSH values between 5.00 and 10.00 uIU/ml do notnecess arily indicate the presence of Hypothyro idism.Cor relation with clinical findings such as presence of goiterand /or Thyropero xidase (TPO) Antibody may be helpful. Formore informati on please refer to MAYELA 2004; 291: 228-238.T est Performed by:[facility] [address] - [place], [place] [id number] e : FINAL Oziel Box 02/20 T4, free panel T4, free ng/dL 0.7 1.8 1.01 Test Performed by:[facility] [address] - [place], [place] [address]Kxtg e : FINAL Oziel Box 05/08 CBC w/ auto diff WBC K/uL 3.0 8.9 7.3 FINAL Oziel angelo [facility] - [place], [address] [facility] [place] [id number] 0 Phone: () - 05/08 CBC w/ auto diff HGB g/dL 11.3 15.2 11.0 Low FINAL Oziel angelo [facility] - [place], [address] [place] [id number] 0 Phone: () - 05/08 CBC w/ auto diff PLT K/uL 113.0 364.0 210 FINAL Oziel [facility] [place] [facility] [place], [address] [place] [id number] 0 Phone: () - 05/08 CBC w/ auto diff Dave # (ANC) K/uL 1.6 6.6 3.7 FINAL Oziel [facility] - [place], [address] [place] [id number] 0 Phone: () - 05/08 CBC w/ auto diff Dave % % 43.0 74.0 51.1 FINAL Oziel [facility] [place], [address] [place] [id number] 0 Phone: () - 05/08 CBC w/ auto diff IG % % 0.0 0.5 0.3 FINAL Oziel [facility] [place], [address] [place] [id number] 0 Phone: () - 05/08 CBC w/ auto diff IG # K/uL 0.0 0.03 0.02 FINAL Oziel [facility] [place], [address] [place] [id number] 0 Phone: () - 05/08 CBC w/ auto diff LY % % 14.0 41.0 37.9 FINAL Oziel Tolbert [facility] - [place], [address] [place] [id number] 0 Phone: () - 05/08 CBC w/ auto diff MO % % 6.0 15.0 9.2 FINAL Oziel [facility] [place], [address] [place] [id number] 0 Phone: () - 05/08 CBC w/ auto diff EO % % 0.0 7.0 1.2 FINAL Oziel [facility] [place], [address] [place] [id number] 0 Phone: () - 05/08 CBC w/ auto diff BA % % 0.0 2.0 0.3 FINAL Oziel [facility] [place], [address] [place] [id number] 0 Phone: () - 05/08 CBC w/ auto diff LY # K/uL 0.4 3.6 2.8 FINAL Oziel T[facility] [place], [address] [place] [id number] 0 Phone: () - 05/08 CBC w/ auto diff MO # K/uL 0.2 1.3 0.7 FINAL Oziel [facility] [place], [address] [place] [id number] 0 Phone: () - 05/08 CBC w/ auto diff EO # K/uL 0.0 0.6 0.1 FINAL Oziel [facility] [place], [address] [place] [id number] 0 Phone: () - 05/08 CBC w/ auto diff BA # K/uL 0.0 0.2 0.0 FINAL Oziel Tolbert a [facility] [place], [address] [place] [id number] 0 Phone: () - 05/08 CBC w/ auto diff NRBC % #/100W BC 0.0 0.2 0.0 FINAL Oziel [facility] [place], [address] [place] [id number] 0 Phone: () - 05/08 CBC w/ auto diff RBC M/uL 3.9 5.1 3.27 Low FINAL Oziel [facility] [place], [address] [place] [id number] 0 Phone: () - 05/08 CBC w/ auto diff HCT % 35.0 48.0 32.1 Low FINAL Oziel [facility] [place], [address] [place] [id number] 0 Phone: () - 05/08 CBC w/ auto diff MCV fL 80.0 104.0 98.2 FINAL Oziel angelo [facility] [place], [address] [place] [id number] 0 Phone: () - 05/08 CBC w/ auto diff MCH pg 26.0 35.0 33.6 FINAL Oziel angelo [facility] [place], [address] [place] [id number] 0 Phone: () - 05/08 CBC w/ auto diff MCHC g/dL 30.0 35.0 34.3 FINAL Oziel angelo [facility] [place], [address] [place] [id number] 0 Phone: () - 05/08 CBC w/ auto diff MPV fL 9.5 13.4 9.4 Low FINAL Oziel angelo [facility] - [place], [address] [place] [id number] 0 Phone: () - 05/08 CBC w/ auto diff RDW % 11.4 16.1 13.10 FINAL Oziel angelo [facility] [place], [address] [place] [id number] 0 Phone: () - 05/08 CMP Album in g/dL 3.2 5.2 4.0 FINAL Oziel angelo Oncology [facility], [address] [place] [address] [place] [id number] 0 Phone: () - 05/08 CMP Alkal ine phosp hatas e U/L 46.0 116.0 56 FINAL Oziel angelo Oncology [facility], [address] [place] [id number] 0 Phone: () - 05/08 CMP ALT/S GPT U/L 7.0 40.0 17 FINAL Oziel angelo Oncology [facility], [address] [place] [id number] 0 Phone: () - 05/08 CMP AST/S GOT U/L 13.0 40.0 21 FINAL Oziel angelo Oncology [facility], [address] [place] [id number] 0 Phone: () - 05/08 CMP BUN mg/dL 9.0 23.0 22 FINAL Oziel angelo [place] [address] [id number] 0 Phone: () - 05/08 CMP Calci um mg/dL 8.7 10.4 9.3 FINAL Oziel angelo [place] [address] [id number] 0 Phone: () - 05/08 CMP Chlor vipin mmol/L 96.0 114.0 112 FINAL Oziel angelo [place] [address] [id number] 0 Phone: () - 05/08 CMP CO2 [...] 96 hour stability window. FINAL Oziel angelo [place] [address] [id number] 0 Phone: () - 05/08 CMP Creat inine mg/dL 0.5 1.2 0.86 FINAL Oziel angelo [place] [address] [id number] 0 Phone: () - 05/08 CMP GFR estim ate ml/min /1.73m ^2 71.2 GFR is calculate d using the CKD-EPI equation. FINAL Oziel angelo [place] [address] [id number] 0 Phone: () - 05/08 CMP Gluco se mg/dL 73.0 126.0 77 FINAL Oziel angelo [place] [address] [id number] 0 Phone: () - 05/08 CMP Potas sium mmol/L 3.5 5.1 3.9 FINAL Oziel angelo [place] [address] [place] [id number] 0 Phone: () - 05/08 CMP Sodiu m mmol/L 136.0 145.0 148 High FINAL Oziel angelo [facility] [address] [facility] 100 [facility] [id number] 0 Phone: () - 05/08 CMP Bilir ubin, total mg/dL 0.3 1.2 0.4 FINAL Oziel angelo [facility] [address] [facility] 100 [facility] [id number] 0 Phone: () - 05/08 CMP Total prote in g/dL 5.7 8.2 6.1 FINAL Oziel angelo [facility] [address] [facility] 100 [facility] [id number] 0 Phone: () - 05/08 TSH w/ refle x to free T4 TSH uIU/ml 0.32 5.0 1.36 Test performed at [facility] on a [employer] Immun[employer] ay Analyzer that uses an immunoenz ymometric sandwich assay for analysis. Patient testing should not be performed using multiple methodharley amador due to analytica l variation seen between test methodharley amador. FINAL Oziel angelo [facility] [address] [id number] 0 Phone: () - 07/23 [facility] other lab See front sight attacher d 07/23 [facility] other lab See front sight attacher d 11/03 CMP Album in g/dL 3.2 5.2 4.1 FINAL Oziel angelo [place] [address] [facility] 100 [facility] [id number] 0 Phone: () - 11/03 CMP Alkal ine phosp hatas e U/L 46.0 116.0 59 FINAL Oziel angelo [place] [address] [facility] 100 [facility] [id number] 0 Phone: () - 11/03 CMP ALT/S GPT U/L 7.0 40.0 <7 FINAL Oziel angelo [facility] [address] [facility] 100 [facility] [id number] 0 Phone: () - 11/03 CMP AST/S GOT U/L 13.0 40.0 24 FINAL Oziel angelo [facility], [address] [facility] 100 [facility] [id number] 0 Phone: () - 11/03 CMP BUN mg/dL 9.0 23.0 16.0 FINAL Oziel angelo [facility] [address] [facility] 100 [facility] [id number] 0 Phone: () - 11/03 CMP Calci um mg/dL 8.7 10.4 9.1 FINAL Oziel angelo [place] [address] [id number] 0 Phone: () - 11/03 CMP Chlor vipin mmol/L 96.0 114.0 105 FINAL Oziel angelo [place] [address] [id number] 0 Phone: () - 11/03 CMP CO2 [...] 96 hour stability window. FINAL Oziel angelo [facility], [facility] [address] [id number] 0 Phone: () - 11/03 CMP Creat inine mg/dL 0.5 1.2 0.88 FINAL Oziel angelo [place] [address] [id number] 0 Phone: () - 11/03 CMP GFR estim ate ml/min /1.73m ^2 69.0 GFR is calculate d using the CKD-EPI equation. FINAL Oziel angelo [place] [address] [id number] 0 Phone: () - 11/03 CMP Gluco se mg/dL 73.0 126.0 105 FINAL Oziel angelo [place] [address] [id number] 0 Phone: () - 11/03 CMP Potas sium mmol/L 3.5 5.1 4.4 FINAL Oziel angelo [facility] [place], [address] [place] [id number] 0 Phone: () - 11/03 CMP Sodiu m mmol/L 136.0 145.0 139 FINAL Oziel angelo Oncology [facility], [address] [place] [id number] 0 Phone: () - 11/03 CMP Bilir ubin, total mg/dL 0.3 1.2 0.6 FINAL Oziel angelo Oncology [facility], [address] [place] [id number] 0 Phone: () - 11/03 CMP Total prote in g/dL 5.7 8.2 6.6 FINAL Oziel angelo Oncology [facility], [address] [place] [id number] 0 Phone: () - 11/03 CBC w/ auto diff WBC K/uL 3.0 8.9 4.7 FINAL Oziel angelo [facility] - [place] , [address] [facility] [place] [id number] 0 Phone: () - 11/03 CBC w/ auto diff HGB g/dL 11.3 15.2 11.6 FINAL Oziel angelo [facility] - [place] , [address] [facility] [place] [id number] 0 Phone: () - 11/03 CBC w/ auto diff PLT K/uL 113.0 364.0 248 FINAL Oziel angelo [facility] [place], [address] [facility] [place] [id number] 0 Phone: () - 11/03 CBC w/ auto diff Dave # (ANC) K/uL 1.6 6.6 2.9 FINAL Oziel angelo [facility] - [place], [address] [place] [address] [address] [facility] [place] [id number] 0 Phone: () - 11/03 CBC w/ auto diff Dave % % 43.0 74.0 60.9 FINAL [facility] [place] [facility] [place], [address] [place] [id number] 0 Phone: () - 11/03 CBC w/ auto diff IG % % 0.0 0.5 0.4 FINAL Oziel [facility] [place], [address] [place] [id number] 0 Phone: () - 11/03 CBC w/ auto diff IG # K/uL 0.0 0.03 0.02 FINAL Oziel [facility] [place], [address] [place] [id number] 0 Phone: () - 11/03 CBC w/ auto diff LY % % 14.0 41.0 26.8 FINAL Oziel [facility] [place], [address] [place] [id number] 0 Phone: () - 11/03 CBC w/ auto diff MO % % 6.0 15.0 8.5 FINAL Oziel [facility] [place], [address] [place] [id number] 0 Phone: () - 11/03 CBC w/ auto diff EO % % 0.0 7.0 3.0 FINAL Oziel [facility] [place], [address] [place] [id number] 0 Phone: () - 11/03 CBC w/ auto diff BA % % 0.0 2.0 0.4 FINAL Oz[facility] [place], [address] [place] [id number] 0 Phone: () - 11/03 CBC w/ auto diff LY # K/uL 0.4 3.6 1.3 FINAL Oziel [facility] [place], [address] [place] [id number] 0 Phone: () - 11/03 CBC w/ auto diff MO # K/uL 0.2 1.3 0.4 FINAL Oziel [facility] [place], [address] [place] [id number] 0 Phone: () - 11/03 CBC w/ auto diff EO # K/uL 0.0 0.6 0.1 FINAL Oziel Tolbert a [facility] - [place], [address] [place] [id number] 0 Phone: () - 11/03 CBC w/ auto diff BA # K/uL 0.0 0.2 0.0 FINAL Oziel Tolbert a [facility] - [place], [address] [place] [id number] 0 Phone: () - 11/03 CBC w/ auto diff NRBC % #/100W BC 0.0 0.2 0.0 FINAL Oziel Tolbert [facility] [place], [address] [place] [id number] 0 Phone: () - 11/03 CBC w/ auto diff RBC M/uL 3.9 5.1 3.52 Low FINAL Oziel angelo [facility] [place], [address] [place] [id number] 0 Phone: () - 11/03 CBC w/ auto diff HCT % 35.0 48.0 34.2 Low FINAL Oziel angelo [facility] [place], [address] [place] [id number] 0 Phone: () - 11/03 CBC w/ auto diff MCV fL 80.0 104.0 97.2 FINAL Oziel angelo [facility] [place], [address] [place] [id number] 0 Phone: () - 11/03 CBC w/ auto diff MCH pg 26.0 35.0 33.0 FINAL Oziel Tolbert a [facility] [place], [address] [place] [id number] 0 Phone: () - 11/03 CBC w/ auto diff MCHC g/dL 30.0 35.0 33.9 FINAL Oziel angelo [facility] [place], [address] [place] [id number] 0 Phone: () - 11/03 CBC w/ auto diff MPV fL 9.5 13.4 8.7 Low FINAL Oziel angelo [facility] [place], [address] [place] [id number] 0 Phone: () - 11/03 CBC w/ auto diff RDW % 11.4 16.1 14.40 FINAL Oziel angelo [facility] [place], [address] [place] [id number] 0 Phone: () - 02/08 TSH w/ refle x to free T4 TSH uIU/ml 0.32 5.0 3.61 Test performed at [facility] on a [employer] Immun[employer] ay Analyzer that uses an immunoenz ymometric sandwich assay for analysis. Patient testing should not be performed using multiple methodharley amador due to analytica l variation seen between test methodharley amador. FINAL Oziel angelo [facility] - [place], [address] [place] [id number] 0 Phone: () - 02/08 CBC w/ auto diff WBC K/uL 3.0 8.9 4.7 FINAL Oziel angelo [facility] - [place], [address] [place] [id number] 0 Phone: () - 02/08 CBC w/ auto diff HGB g/dL 11.3 15.2 11.0 Low FINAL Oziel angelo [facility] [place], [address] [place] [id number] 0 Phone: () - 02/08 CBC w/ auto diff PLT K/uL 113.0 364.0 194 FINAL Oziel angelo [facility] [place], [address] [place] [id number] 0 Phone: () - 02/08 CBC w/ auto diff Dave # (ANC) K/uL 1.6 6.6 2.7 FINAL [facility] [place] [facility] [place], [address] [place] [id number] 0 Phone: () - 02/08 CBC w/ auto diff Dave % % 43.0 74.0 57.2 FINAL Oziel [facility] [place], [address] [place] [id number] 0 Phone: () - 02/08 CBC w/ auto diff IG % % 0.0 0.5 0.4 FINAL [facility] [place], [address] [place] [id number] 0 Phone: () - 02/08 CBC w/ auto diff IG # K/uL 0.0 0.03 0.02 FINAL Oziel [facility] [place], [address] [place] [id number] 0 Phone: () - 02/08 CBC w/ auto diff LY % % 14.0 41.0 31.6 FINAL Oziel [facility] [place], [address] [place] [id number] 0 Phone: () - 02/08 CBC w/ auto diff MO % % 6.0 15.0 8.0 FINAL Oz[facility] [place], [address] [place] [id number] 0 Phone: () - 02/08 CBC w/ auto diff EO % % 0.0 7.0 2.2 FINAL Oziel [facility] [place], [address] [place] [id number] 0 Phone: () - 02/08 CBC w/ auto diff BA % % 0.0 2.0 0.6 FINAL Oz[facility] [place], [address] [place] [id number] 0 Phone: () - 02/08 CBC w/ auto diff LY # K/uL 0.4 3.6 1.5 FINAL Oz[facility] [place], [address] [place] [id number] 0 Phone: () - 02/08 CBC w/ auto diff MO # K/uL 0.2 1.3 0.4 FINAL [facility] [place], [address] [place] [id number] 0 Phone: () - 02/08 CBC w/ auto diff EO # K/uL 0.0 0.6 0.1 FINAL [facility] [place], [address] [place] [id number] 0 Phone: () - 02/08 CBC w/ auto diff BA # K/uL 0.0 0.2 0.0 FINAL [facility] [place], [address] [place] [id number] 0 Phone: () - 02/08 CBC w/ auto diff NRBC % #/100W BC 0.0 0.2 0.0 FINAL Oziel [facility] [place], [address] [place] [id number] 0 Phone: () - 02/08 CBC w/ auto diff RBC M/uL 3.9 5.1 3.26 Low FINAL Oziel [facility] [place], [address] [place] [id number] 0 Phone: () - 02/08 CBC w/ auto diff HCT % 35.0 48.0 32.9 Low FINAL Oziel [facility] [place], [address] [place] [id number] 0 Phone: () - 02/08 CBC w/ auto diff MCV fL 80.0 104.0 100.9 FINAL Oziel [facility] - [place], [address] [place] [id number] 0 Phone: () - 02/08 CBC w/ auto diff MCH pg 26.0 35.0 33.7 FINAL Oziel angelo [facility] - [place], [address] [place] [id number] 0 Phone: () - 02/08 CBC w/ auto diff MCHC g/dL 30.0 35.0 33.4 FINAL Oziel angelo [facility] - [place], [address] [place] [id number] 0 Phone: () - 02/08 CBC w/ auto diff MPV fL 9.5 13.4 9.0 Low FINAL Oziel angelo [facility] - [place], [address] [place] [id number] 0 Phone: () - 02/08 CBC w/ auto diff RDW % 11.4 16.1 13.70 FINAL Oziel angelo [facility] - [place], [address] [address] [facility] [address] [place] [id number] 0 Phone: () - 02/08 CMP Album in g/dL 3.2 5.2 4.0 FINAL Oziel angelo Oncology [facility], [address] [facility] [id number] 0 Phone: () - 02/08 CMP Alkal ine phosp hatas e U/L 46.0 116.0 83 FINAL Oziel angelo Oncology [facility], [address] [place] [id number] 0 Phone: () - 02/08 CMP ALT/S GPT U/L 7.0 40.0 <7 FINAL Oziel angelo Oncology [facility], [address] [place] [id number] 0 Phone: () - 02/08 CMP AST/S GOT U/L 13.0 40.0 23 FINAL Oziel angelo [facility], [address] [place] [id number] 0 Phone: () - 02/08 CMP BUN mg/dL 9.0 23.0 17.0 FINAL Oziel angelo Oncology [facility], [address] [place] [id number] 0 Phone: () - 02/08 CMP Calci um mg/dL 8.7 10.4 8.8 FINAL Oziel angelo [place] [address] [id number] 0 Phone: () - 02/08 CMP Chlor vipin mmol/L 96.0 114.0 109 FINAL Oziel angelo [place] [address] [id number] 0 Phone: () - 02/08 CMP CO2 [...] 96 hour stability window. FINAL Oziel angelo [place] [address] [id number] Phone: () - 02/08 CMP Creat inine mg/dL 0.5 1.2 0.86 FINAL Oziel angelo [place] [address] [id number] 0 Phone: () - 02/08 CMP GFR estim ate ml/min /1.73m ^2 70.9 GFR is calculate d using the CKD-EPI equation. FINAL Oziel angelo [place] [address] [id number] 0 Phone: () - 02/08 CMP Gluco se mg/dL 73.0 126.0 84 FINAL Oziel angelo [place] [address] [address] [facility] [address] [id number] 0 Phone: () - 02/08 CMP Potas sium mmol/L 3.5 5.1 4.5 FINAL Oziel angelo [place] [address] [id number] 0 Phone: () - 02/08 CMP Sodiu m mmol/L 136.0 145.0 141 FINAL Oziel angelo [place] [address] [address] [facility] [address] [id number] 0 Phone: () - 02/08 CMP Bilir ubin, total mg/dL 0.3 1.2 0.3 FINAL Oziel angelo [facility] - [place], [address] [place] [id number] 0 Phone: () - 02/08 CMP Total prote in g/dL 5.7 8.2 6.1 FINAL Oziel angelo [facility] - [place], [address] [place] [id number] 0 Phone: () - 06/06 [facility] other lab See front sight attacher d 08/09 CBC w/ auto diff WBC K/uL 3.0 8.9 3.5 FINAL Oziel angelo [facility] - [place], [address] [facility] [address] [place] [id number] 0 Phone: () - 08/09 CBC w/ auto diff HGB g/dL 11.3 15.2 11.7 FINAL Oziel angelo [facility] - [place], [address] [facility] [address] [place] [id number] 0 Phone: () - 08/09 CBC w/ auto diff PLT K/uL 113.0 364.0 196 FINAL Oziel angelo [facility] - [place], [address] [place] [id number] 0 Phone: () - 08/09 CBC w/ auto diff Dave # (ANC) K/uL 1.6 6.6 1.9 FINAL Oziel angelo [facility] - [place], [address] [place] [id number] 0 Phone: () - 08/09 CBC w/ auto diff Dave % % 43.0 74.0 52.2 FINAL Oziel angelo [facility] - [place], [address] [place] [id number] 0 Phone: () - 08/09 CBC w/ auto diff IG % % 0.0 0.5 0.3 FINAL Oziel angelo [facility] - [place], [address] [place] [id number] 0 Phone: () - 08/09 CBC w/ auto diff IG # K/uL 0.0 0.03 0.01 FINAL Oziel angelo [facility] - [place], [address] [place] [id number] 0 Phone: () - 08/09 CBC w/ auto diff LY % % 14.0 41.0 35.0 FINAL Oziel angelo [facility] - [place], [address] [place] [id number] 0 Phone: () - 08/09 CBC w/ auto diff MO % % 6.0 15.0 9.6 FINAL Oziel angelo [facility] - [place], [address] [place] [id number] 0 Phone: () - 08/09 CBC w/ auto diff EO % % 0.0 7.0 2.3 FINAL Oziel angelo [facility] - [place], [address] [place] [id number] 0 Phone: () - 08/09 CBC w/ auto diff BA % % 0.0 2.0 0.6 FINAL Oziel angelo [facility] - [place], [address] [place] [id number] 0 Phone: () - 08/09 CBC w/ auto diff LY # K/uL 0.4 3.6 1.2 FINAL Oziel angelo [facility] - [place], [address] [place] [id number] 0 Phone: () - 08/09 CBC w/ auto diff MO # K/uL 0.2 1.3 0.3 FINAL Oziel angelo [facility] - [place], [address] [place] [id number] 0 Phone: () - 08/09 CBC w/ auto diff EO # K/uL 0.0 0.6 0.1 FINAL Oziel angelo [facility] - [place], [address] [place] [id number] 0 Phone: () - 08/09 CBC w/ auto diff BA # K/uL 0.0 0.2 0.0 FINAL Oziel angelo [facility] - [place], [address] [place] [id number] 0 Phone: () - 08/09 CBC w/ auto diff NRBC % #/100W BC 0.0 0.2 0.0 FINAL Oziel angelo [facility] - [place], [address] [place] [id number] 0 Phone: () - 08/09 CBC w/ auto diff RBC M/uL 3.9 5.1 3.51 Low FINAL Oziel angelo [facility] - [place], [address] [place] [id number] 0 Phone: () - 08/09 CBC w/ auto diff HCT % 35.0 48.0 35.6 FINAL Oziel angelo [facility] - [place], [address] [place] [id number] 0 Phone: () - 08/09 CBC w/ auto diff MCV fL 80.0 104.0 101.4 FINAL Oziel angelo [facility] - [place], [address] [place] [id number] 0 Phone: () - 08/09 CBC w/ auto diff MCH pg 26.0 35.0 33.3 FINAL Oziel angelo [facility] - [place], [address] [place] [id number] 0 Phone: () - 08/09 CBC w/ auto diff MCHC g/dL 30.0 35.0 32.9 FINAL Oziel angelo [facility] - [place], [address] [place] [id number] 0 Phone: () - 08/09 CBC w/ auto diff MPV fL 9.5 13.4 9.3 Low FINAL Oziel Tilleyot a [facility] - [place], [address] [facility] [facility] [address] [place] [id number] 0 Phone: () - 08/09 CBC w/ auto diff RDW % 11.4 16.1 13.20 FINAL Oziel Tilleyot a [facility] - [place], [address] [facility] [address] [place] [id number] 0 Phone: () - 08/09 CMP Album in g/dL 3.5 5.0 4.1 FINAL Oziel Box * [place] [facility], [address] [facility] [id number] 0 08/09 CMP Alkal ine phosp hatas e U/L 36.0 125.0 66 FINAL Oziel Box * [place] [facility], [address] [facility] [id number] 0 08/09 CMP ALT/S GPT U/L 0.0 34.0 6 FINAL Oziel Box * [place] [facility], [address] [facility] [id number] 0 08/09 CMP AST/S GOT U/L 14.0 36.0 28 FINAL Oziel Box * [place] [facility], [address] [facility] [id number] 0 08/09 CMP BUN mg/dL 7.0 17.0 17.0 FINAL Oziel Box * [place] [facility], [address] [facility] [id number] 0 08/09 CMP Calci um mg/dL 8.4 10.2 9.4 FINAL Oziel Box * [facility], [address] [facility] [id number] 0 08/09 CMP Chlor vipin mmol/L 96.0 107.0 106 FINAL Oziel Box * [facility], [address] [facility] [id number] 0 08/09 CMP CO2 mmol/L 22.0 30.0 [...] the 96 hour stability window. [facility]AL [facility], [address] [facility] [id number] 0 08/09 CMP Creat inine mg/dL 0.66 1.25 0.70 FINAL [facility], [address] [address] [id number] 0 08/09 CMP GFR estim ate ml/min /1.73m ^2 90.4 GFR is calculate d using the CKD-EPI equation. [facility]AL [facility], [address] [id number] 0 08/09 CMP Gluco se mg/dL 74.0 100.0 87 FINAL Oziel Tilleyot a [facility], [address] [facility] [id number] 0 08/09 CMP Potas sium mmol/L 3.5 5.1 4.2 FINAL Oziel Tilleyot [facility], [address] [facility] [id number] 0 08/09 CMP Sodiu m mmol/L 137.0 145.0 139 FINAL Oziel Tilleyot [facility], [address] [id number] 0 08/09 CMP Bilir ubin, total mg/dL 0.2 1.3 0.3 FINAL Oziel Box * [place] [facility] [place], [address] [facility] [id number] 0 08/09 CMP Total prote in g/dL 6.3 8.2 6.7 FINAL Oziel Box * [place] [facility] [place], [address] [facility] [id number] 0 08/09 TSH w/ refle x to free T4 TSHR- v mIU/ml 0.47 4.68 0.74 FINAL Oziel Box * [place] [facility], [address] [facility] [id number] 0 02/13 CBC w/ auto diff WBC K/uL 3.0 8.9 4.7 FINAL Oziel FREEMAN [facility] - [place], [address] [place] [id number] 0 02/13 CBC w/ auto diff HGB g/dL 11.3 15.2 10.4 Low FINAL Oziel FREEMAN [facility] - [place], [address] [place] [id number] 0 02/13 CBC w/ auto diff PLT K/uL 113.0 364.0 252 FINAL Oziel FREEMAN [facility] - [place], [address] [place] [id number] 0 02/13 CBC w/ auto diff Dave # (ANC) K/uL 1.6 6.6 2.4 FINAL Oziel FREEMAN [facility] - [place], [address] [place] [id number] 0 02/13 CBC w/ auto diff Dave % % 43.0 74.0 51.3 FINAL Oziel FREEMAN [facility] - [place], [address] [place] [id number] 0 02/13 CBC w/ auto diff IG % % 0.0 0.5 0.2 FINAL Oziel FREEMAN [facility] - [place], [address] [place] [id number] 0 02/13 CBC w/ auto diff IG # K/uL 0.0 0.03 0.01 FINAL Oziel FREEMAN [facility] - [place], [address] [place] [id number] 0 02/13 CBC w/ auto diff LY % % 14.0 41.0 33.5 FINAL Oziel FREEMAN [facility] - [place], [address] [place] [id number] 0 02/13 CBC w/ auto diff MO % % 6.0 15.0 8.8 FINAL Oziel FREEMAN [facility] - [place], [address] [place] [id number] 0 02/13 CBC w/ auto diff EO % % 0.0 7.0 5.6 FINAL Oziel FREEMAN [facility] - [place], [address] [place] [id number] 0 02/13 CBC w/ auto diff BA % % 0.0 2.0 0.6 FINAL Oziel FREEMAN [facility] - [place], [address] [place] [id number] 0 02/13 CBC w/ auto diff LY # K/uL 0.4 3.6 1.6 FINAL Oziel FREEMAN [facility] - [place], [address] [place] [id number] 0 02/13 CBC w/ auto diff MO # K/uL 0.2 1.3 0.4 FINAL Oziel FREEMAN [facility] - [place], [address] [place] [id number] 0 02/13 CBC w/ auto diff EO # K/uL 0.0 0.6 0.3 FINAL Oziel FREEMAN [facility] - [place], [address] [place] [id number] 0 02/13 CBC w/ auto diff BA # K/uL 0.0 0.2 0.0 FINAL Oziel FREEMAN [facility] - [place], [address] [place] [id number] 0 02/13 CBC w/ auto diff NRBC % #/100W BC 0.0 0.2 0.0 FINAL Oziel FREEMAN [facility] - [place], [address] [place] [id number] 0 02/13 CBC w/ auto diff RBC M/uL 3.9 5.1 3.24 Low FINAL Oziel FREEMAN [facility] - [place], [address] [place] [id number] 0 02/13 CBC w/ auto diff HCT % 35.0 48.0 32.3 Low FINAL Oziel FREEMAN [facility] - [place], [address] [place] [id number] 0 02/13 CBC w/ auto diff MCV fL 80.0 104.0 99.7 FINAL Oziel FREEMAN [facility] - [place], [address] [place] [id number] 0 02/13 CBC w/ auto diff MCH pg 26.0 35.0 32.1 FINAL Oziel FREEMAN [facility] - [place], [address] [place] [id number] 0 02/13 CBC w/ auto diff MCHC g/dL 30.0 35.0 32.2 FINAL Oziel FREEMAN [facility] - [place], [address] [place] [id number] 0 02/13 CBC w/ auto diff MPV fL 9.5 13.4 9.1 Low FINAL Oziel FREEMAN [facility] - [place], [address] [place] [id number] 0 02/13 CBC w/ auto diff RDW % 11.4 16.1 13.70 FINAL Oziel FREEMAN [facility] - [place], [address] [place] [id number] 0 02/13 CMP Album in g/dL 3.5 5.0 3.5 FINAL Oziel Box * [place] [facility], [address] [facility] [id number] 0 02/13 CMP Alkal ine phosp hatas e U/L 36.0 125.0 75 FINAL Oziel Box * [place] [facility], [address] [facility] [id number] 0 02/13 CMP ALT/S GPT U/L 0.0 34.0 <4 Repeate d FINAL Oziel Box * [place] [facility] [place], [address] [facility] [id number] 0 02/13 CMP AST/S GOT U/L 14.0 36.0 17 FINAL Oziel Box * [place] [facility] [place], [address] [facility] [id number] 0 02/13 CMP BUN mg/dL 7.0 17.0 18.0 High FINAL Oziel Card [place] [facility] [facility], [address] [facility] [id number] 0 02/13 CMP Calci um mg/dL 8.4 10.2 9.2 FINAL [place]iel Card [place] [facility] [facility], [address] [facility] [id number] 0 02/13 CMP Chlor vipin mmol/L 96.0 107.0 109 High FINAL [place]iel Card [place] [facility] [facility], [address] [facility] [id number] 0 02/13 CMP CO2 mmol/L 22.0 30.0 [...] hour stability window. FINAL Oziel FREEMAN Oncology [facility], [address] [facility] [id number] 0 02/13 CMP Creat inine mg/dL 0.66 1.25 0.80 FINAL [place] Card [place] [facility] [facility], [address] [facility] [id number] 0 02/13 CMP GFR estim ate ml/min /1.73m ^2 76.8 GFR is calculate d using the CKD-EPI equation. FINAL [place]iel Card [place] [facility] [facility], [address] [facility] [id number] 0 02/13 CMP Gluco se mg/dL 74.0 100.0 84 FINAL [place]iel Card [place] [facility], [address] [facility] [id number] 0 02/13 CMP Potas sium mmol/L 3.5 5.1 4.4 FINAL Oziel Box * [place] [facility] [place], [address] [facility] [id number] 0 02/13 CMP Sodiu m mmol/L 137.0 145.0 137 FINAL Oziel Box * [place] [facility] [place], [address] [facility] [id number] 0 02/13 CMP Bilir ubin, total mg/dL 0.2 1.3 0.5 FINAL Oziel Box * [place] [facility] [place], [address] [facility] [id number] 0 02/13 CMP Total prote in g/dL 6.3 8.2 6.2 Low FINAL Oziel Box * [place] [facility] [place], [address] [facility] [id number] 0 04/03 [facility] other lab See front sight attacher d 08/14 CMP Album in g/dL 3.5 5.0 3.7 FINAL Oziel Box * [facility] , [address] [facility] [id number] 0 08/14 CMP Alkal ine phosp hatas e U/L 36.0 125.0 68 FINAL Oziel Box * [place] [facility] , [address] [facility] [id number] 0 08/14 CMP ALT/S GPT U/L 0.0 34.0 10 FINAL Oziel Box * [place] [facility] , [address] [facility] [id number] 0 08/14 CMP AST/S GOT U/L 14.0 36.0 28 FINAL Oziel Box * [facility] , [address] [facility] [id number] 0 08/14 CMP BUN mg/dL 7.0 17.0 25.0 High FINAL Oziel Box * [facility] , [address] [facility] [id number] 0 08/14 CMP Calci um mg/dL 8.4 10.2 8.7 FINAL Oziel Box * [facility] , [address] [facility] [id number] 0 08/14 CMP Chlor vipin mmol/L 96.0 107.0 109 High FINAL Oziel Box * [facility] , [address] [facility] [address] [facility] [id number] 0 08/14 CMP CO2 mmol/L 22.0 30.0 [...] hour stability window. FINAL Oziel Box * [facility] , [address] [facility] [address] [facility] [id number] 0 08/14 CMP Creat inine mg/dL 0.66 1.25 0.90 FINAL Oziel Box * [facility] , [address] [facility] [id number] 0 08/14 CMP GFR estim ate ml/min /1.73m ^2 66.5 GFR is calculate d using the CKD-EPI equation. FINAL Oziel Box * [facility] , [address] [id number] 0 08/14 CMP Gluco se mg/dL 74.0 100.0 95 FINAL Oziel Box * [facility] , [address] [facility] [id number] 0 08/14 CMP Potas sium mmol/L 3.5 5.1 4.5 FINAL Oziel Box * [facility] , [address] [facility] [id number] 0 08/14 CMP Sodiu m mmol/L 137.0 145.0 137 FINAL Oziel Box * [facility] , [address] [facility] [id number] 0 08/14 CMP Bilir ubin, total mg/dL 0.2 1.3 0.8 FINAL Oziel Box * [facility] , [address] [facility] [id number] 0 08/14 CMP Total prote in g/dL 6.3 8.2 6.5 FINAL Oziel Box * [facility] , [address] [facility] [id number] 0 08/14 CBC w/ auto diff WBC K/uL 3.0 8.9 4.7 FINAL Oziel Box [place] [facility] , [address] [place] [id number] 0 08/14 CBC w/ auto diff HGB g/dL 11.3 15.2 11.5 FINAL Oziel Box [place] [facility] , [address] [place] [id number] 0 08/14 CBC w/ auto diff PLT K/uL 113.0 364.0 211 FINAL Oziel Box [place] [facility] , [address] [place] [id number] 0 08/14 CBC w/ auto diff Dave # (ANC) K/uL 1.6 6.6 2.9 FINAL Oziel Box [place] [facility] , [address] [place] [id number] 0 08/14 CBC w/ auto diff Dave % % 43.0 74.0 61.3 FINAL Oziel Box [place] [facility] , [address] [place] [id number] 0 08/14 CBC w/ auto diff IG % % 0.0 0.5 0.2 FINAL Oziel Box [place] [facility] , [address] [place] [id number] 0 08/14 CBC w/ auto diff IG # K/uL 0.0 0.03 0.01 FINAL Oziel Box [place] [facility] , [address] [place] [id number] 0 08/14 CBC w/ auto diff LY % % 14.0 41.0 25.6 FINAL Oziel Box [place] [facility] , [address] [place] [id number] 0 08/14 CBC w/ auto diff MO % % 6.0 15.0 8.7 FINAL Oziel Box [place] [facility] , [address] [place] [id number] 0 08/14 CBC w/ auto diff EO % % 0.0 7.0 3.8 FINAL Oziel Box [place] [facility] , [address] [place] [id number] 0 08/14 CBC w/ auto diff BA % % 0.0 2.0 0.4 FINAL Oziel Box [place] [facility] , [address] [place] [id number] 0 08/14 CBC w/ auto diff LY # K/uL 0.4 3.6 1.2 FINAL Oziel Box [place] [facility] , [address] [place] [id number] 0 08/14 CBC w/ auto diff MO # K/uL 0.2 1.3 0.4 FINAL Oziel Box [place] [facility] , [address] [place] [id number] 0 08/14 CBC w/ auto diff EO # K/uL 0.0 0.6 0.2 FINAL Oziel Box [place] [facility] , [address] [place] [id number] 0 08/14 CBC w/ auto diff BA # K/uL 0.0 0.2 0.0 FINAL Oziel Box [place] [facility] , [address] [place] [id number] 0 08/14 CBC w/ auto diff NRBC % #/100W BC 0.0 0.2 0.0 FINAL Oziel Box [place] [facility] , [address] [place] [id number] 0 08/14 CBC w/ auto diff RBC M/uL 3.9 5.1 3.60 Low FINAL Oziel Box [place] [facility] , [address] [place] [id number] 0 08/14 CBC w/ auto diff HCT % 35.0 48.0 35.2 FINAL Oziel Box [place] [facility] , [address] [place] [id number] 0 08/14 CBC w/ auto diff MCV fL 80.0 104.0 97.8 FINAL Oziel Box [place] [facility] , [address] [place] [id number] 0 08/14 CBC w/ auto diff MCH pg 26.0 35.0 31.9 FINAL [facility] , [address] [facility] [address] [facility] [id number] 0 08/14 CBC w/ auto diff MCHC g/dL 30.0 35.0 32.7 FINAL [facility] , [address] [facility] [facility] [id number] 0 08/14 CBC w/ auto diff MPV fL 9.5 13.4 9.0 Low FINAL [facility] , [address] [facility] [facility] [address] [facility] [id number] 0 08/14 CBC w/ auto diff RDW % 11.4 16.1 13.60 FINAL [facility] , [address] [facility] [id number] Medications Date Name Route Dose Frequency Instructions Start Date End Date Status Baclofen Oral daily act charles Vitamin [id number] Acid Oral 500 mcg-400 mcg daily active [...] concentration must be 0.3-1.2 mg/mL.Administ er using [id number] ining equipment and through an in-line 0.22 [...] Active Vital Signs Date Type Value 10/24/2021 BSA 1.98 10/24/2021 BMI 33.28 10/24/2021 Height 65.00 10/24/2021 Weight 200.00 10/24/2021 Body Temperature 96.90 10/24/2021 Intravascular Systolic 138 10/24/2021 Intravascular Diastolic 84 10/24/2021 Oxygen Saturation 97.00 10/24/2021 Respiratory Rate 20.00 10/24/2021 Heart Beat 65.00 10/24/2021 Pain Scale 0.00 11/21/2021 BMI 34.28 11/21/2021 BSA 2.00 11/21/2021 Height 65.00 11/21/2021 Weight 206.00 11/21/2021 Pain Scale 0.00 11/21/2021 Intravascular Systolic 158 11/21/2021 Intravascular Diastolic 88 11/21/2021 Oxygen Saturation 98.00 11/21/2021 Respiratory Rate 16.00 11/21/2021 Heart Beat 68.00 11/21/2021 Body Temperature 97.30 12/19/2021 BSA 2.02 12/19/2021 BMI 34.88 12/19/2021 Height 65.00 12/19/2021 Weight 209.60 12/19/2021 Body Temperature 96.70 12/19/2021 Intravascular Systolic 118 12/19/2021 Intravascular Diastolic 82 12/19/2021 Oxygen Saturation 97.00 12/19/2021 Respiratory Rate 16.00 12/19/2021 Heart Beat 64.00 12/19/2021 Pain Scale 0.00 01/16/2022 BMI 35.25 01/16/2022 BSA 2.03 01/16/2022 Height 65.00 01/16/2022 Weight 211.80 01/16/2022 Pain Scale 0.00 01/16/2022 Intravascular Systolic 118 01/16/2022 Intravascular Diastolic 82 01/16/2022 Oxygen Saturation 95.00 01/16/2022 Respiratory Rate 16.00 01/16/2022 Heart Beat 63.00 01/16/2022 Body Temperature 97.70 05/08/2022 Body Temperature 100.20 05/08/2022 Heart Beat 68.00 05/08/2022 BSA 2.03 05/08/2022 BMI 35.58 05/08/2022 Height 65.00 05/08/2022 Weight 213.80 05/08/2022 Pain Scale 5.00 05/08/2022 Intravascular Systolic 138 05/08/2022 Intravascular Diastolic 86 05/08/2022 Oxygen Saturation 98.00 05/08/2022 Respiratory Rate 16.00 08/13/2022 Body Temperature 96.80 08/13/2022 BMI 35.51 08/13/2022 Height 65.00 08/13/2022 Weight 213.40 08/13/2022 BSA 2.03 08/13/2022 Intravascular Systolic 118 08/13/2022 Intravascular Diastolic 76 08/13/2022 Oxygen Saturation 98.00 08/13/2022 Respiratory Rate 16.00 08/13/2022 Heart Beat 67.00 08/13/2022 Pain Scale 0.00 11/13/2022 Body Temperature 96.90 11/13/2022 Heart Beat 77.00 11/13/2022 Respiratory Rate 16.00 11/13/2022 Oxygen Saturation 98.00 11/13/2022 Intravascular Systolic 126 11/13/2022 Intravascular Diastolic 72 11/13/2022 Pain Scale 0.00 11/13/2022 Weight 220.80 11/13/2022 Height 65.00 11/13/2022 BMI 36.74 11/13/2022 BSA 2.06 02/12/2023 Body Temperature 96.40 02/12/2023 Heart Beat 70.00 02/12/2023 Respiratory Rate 16.00 02/12/2023 Oxygen Saturation 99.00 02/12/2023 BSA 2.09 02/12/2023 Pain Scale 0.00 02/12/2023 Weight 227.20 02/12/2023 Height 65.00 02/12/2023 BMI 37.81 02/12/2023 Intravascular Systolic 158 02/12/2023 Intravascular Diastolic 68 08/16/2023 BMI 33.28 08/16/2023 BSA 1.98 08/16/2023 Height 65.00 08/16/2023 Weight 200.00 08/16/2023 Pain Scale 5.00 08/16/2023 Intravascular Systolic 110 08/16/2023 Intravascular Diastolic 70 08/16/2023 Oxygen Saturation 99.00 08/16/2023 Respiratory Rate 16.00 08/16/2023 Heart Beat 82.00 08/16/2023 Body Temperature 98.00 02/18/2024 Heart Beat 81.00 02/18/2024 Respiratory Rate 16.00 02/18/2024 Oxygen Saturation 98.00 02/18/2024 Intravascular Systolic 134 02/18/2024 Intravascular Diastolic 82 02/18/2024 Body Temperature 96.60 02/18/2024 Weight 194.00 02/18/2024 Height 65.00 02/18/2024 BMI 32.28 02/18/2024 BSA 1.95 02/18/2024 Pain Scale 0.00 09/04/2024 Intravascular Systolic 132 09/04/2024 Intravascular Diastolic 70 09/04/2024 BSA 2.06 09/04/2024 BMI 36.56 09/04/2024 Height 65.00 09/04/2024 Weight 219.70 09/04/2024 Pain Scale 0.00 09/04/2024 Oxygen Saturation 98.00 09/04/2024 Respiratory Rate 16.00 09/04/2024 Body Temperature 98.70 09/04/2024 Heart Beat 64.00
--- OUTSIDE RECORDS SUMMARY | 2024-09-18 08:42 | XMS_ITS ---
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 08/14 CMP Album in g/dL 3.5 5.0 3.7 FINAL Oziel Box * [facility] , [address] [facility] [id number] [phone] 08/14 CMP Alkal ine phosp hatas e U/L 36.0 125.0 68 FINAL Oziel Box * [facility] , [address] [facility] [id number] 0 08/14 CMP ALT/S GPT U/L 0.0 34.0 10 FINAL Oziel Box * [facility] , [address] [facility] [id number] 0 08/14 CMP AST/S GOT U/L 14.0 36.0 28 FINAL Oziel Box * [facility] , [address] [facility] [id number] 08/14 CMP BUN mg/dL 7.0 17.0 25.0 High FINAL Oziel Box * [facility] , [address] [facility] [id number] 0 08/14 CMP Calci um mg/dL 8.4 10.2 8.7 FINAL Oziel Box * [facility] , [address] [facility] [id number] 0 08/14 CMP Chlor vipin mmol/L 96.0 107.0 109 High FINAL Oziel Box * [facility] , [address] [facility] [id number] 0 08/14 CMP CO2 mmol/L 22.0 30.0 [...] hour stability window. FINAL Oziel Box * [facility] , [address] [facility] [id number] 0 08/14 CMP Creat inine mg/dL 0.66 1.25 0.90 FINAL Ozile Box * [facility] , [address] [facility] [id number] 0 08/14 CMP GFR estim ate ml/min /1.73m ^2 66.5 GFR is calculate d using the CKD-EPI equation. FINAL Oziel Box * [facility] , [address] [facility] [id number] 0 08/14 CMP Gluco se mg/dL 74.0 100.0 95 FINAL Oziel Box * [facility] , [address] [facility] [id number] 0 08/14 CMP Potas sium mmol/L 3.5 5.1 4.5 FINAL Oziel Box * [facility] , [address] [facility] [id number] 0 08/14 CMP Sodiu m mmol/L 137.0 145.0 137 FINAL Oziel Box * [facility] , [address] [facility] [id number] 0 08/14 CMP Bilir ubin, total mg/dL 0.2 1.3 0.8 FINAL Oziel Box * [facility] , [address] [facility] [id number] 0 08/14 CMP Total prote in g/dL 6.3 8.2 6.5 FINAL Oziel Box * [facility] , [address] [facility] [id number] 0 08/14 CBC w/ auto diff WBC K/uL 3.0 8.9 4.7 FINAL Oziel Box [place] [facility] [place] [facility] , [address] [place] [id number] 0 08/14 CBC w/ auto diff HGB g/dL 11.3 15.2 11.5 FINAL Oziel Box [place] [facility] [place] [facility] , [address] [place] [id number] 0 08/14 CBC w/ auto diff PLT K/uL 113.0 364.0 211 FINAL Oziel Box [place] [facility] [place] [facility] , [address] [place] [id number] 0 08/14 CBC w/ auto diff Dave # (ANC) K/uL 1.6 6.6 2.9 FINAL Oziel Box [place] [facility] [place] [facility] , [address] [place] [id number] 0 08/14 CBC w/ auto diff Dave % % 43.0 74.0 61.3 FINAL Oziel Box [place] [facility] [place] [facility] , [address] [place] [id number] 0 08/14 CBC w/ auto diff IG % % 0.0 0.5 0.2 FINAL Oziel Box [place] [facility] [place] [facility] , [address] [place] [id number] 0 08/14 CBC w/ auto diff IG # K/uL 0.0 0.03 0.01 FINAL Oziel Box [place] [facility] [place] [facility] , [address] [place] [id number] 0 08/14 CBC w/ auto diff LY % % 14.0 41.0 25.6 FINAL Oziel Box [place] [facility] [place] [facility] , [address] [place] [id number] 0 08/14 CBC w/ auto diff MO % % 6.0 15.0 8.7 FINAL Oziel Box [place] [facility] [place] [facility] , [address] [place] [id number] 0 08/14 CBC w/ auto diff EO % % 0.0 7.0 3.8 FINAL Oziel Box [place] [facility] [place] [facility] , [address] [place] [id number] 0 08/14 CBC w/ auto diff BA % % 0.0 2.0 0.4 FINAL Oziel Box [place] [facility] [place] [facility] , [address] [place] [id number] 0 08/14 CBC w/ auto diff LY # K/uL 0.4 3.6 1.2 FINAL Oziel Box [place] [facility] [place] [facility] , [address] [place] [id number] 0 08/14 CBC w/ auto diff MO # K/uL 0.2 1.3 0.4 FINAL Oziel Box [place] [facility] [place] [facility] , [address] [place] [id number] 0 08/14 CBC w/ auto diff EO # K/uL 0.0 0.6 0.2 FINAL Oziel Box [place] [facility] [place] [facility] , [address] [place] [id number] 0 08/14 CBC w/ auto diff BA # K/uL 0.0 0.2 0.0 FINAL Oziel Box [place] [facility] [place] [facility] , [address] [place] [id number] 0 08/14 CBC w/ auto diff NRBC % #/100W BC 0.0 0.2 0.0 FINAL Oziel Box [place] [facility] [place] [facility] , [address] [place] [id number] 0 08/14 CBC w/ auto diff RBC M/uL 3.9 5.1 3.60 Low FINAL Oziel Box [place] [facility] [place] [facility] , [address] [place] [id number] 0 08/14 CBC w/ auto diff HCT % 35.0 48.0 35.2 FINAL Oziel Box [place] [facility] [place] [facility] , [address] [place] [id number] 0 08/14 CBC w/ auto diff MCV fL 80.0 104.0 97.8 FINAL Oziel Box [place] [facility] [place] [facility] , [address] [place] [id number] 0 08/14 CBC w/ auto diff MCH pg 26.0 35.0 31.9 FINAL Oziel Box [place] [facility] [place] [facility] , [address] [place] [id number] 0 08/14 CBC w/ auto diff MCHC g/dL 30.0 35.0 32.7 FINAL Oziel Box [place] [facility] [place] [facility] , [address] [place] [id number] 0 08/14 CBC w/ auto diff MPV fL 9.5 13.4 9.0 Low FINAL Oziel Box [place] [facility] [place] [facility] , [address] [place] [id number] 0 08/14 CBC w/ auto diff RDW % 11.4 16.1 13.60 FINAL Oziel Box [place] [facility] [place] [facility] , [address] [place] [phone] 0 Medications Date Name Route Dose Frequency Instructions Start Date End Date Status Baclofen Oral daily act charles Vitamin S58-Cjwye Acid Oral 500 mcg-400 mcg daily active [...] concentration must be 0.3-1.2 mg/mL.Administ er using [id number] ining equipment and through an in-line 0.22 [...] Date Vitamin D3 (Cholecalciferol Oral) 2023 Vitamin J78-Zsbby Acid Oral 500 mcg-400 mcg 11/13/2022 Gabapentin [...] BSA: 2.06, BMI: 36.56 kg/m2 Covid-19 vaccine (ChiScan) (12/18/2020), Elsewhere; Covid-19 vaccine (ChiScan) (10/09/2020), Elsewhere; Covid-19 vaccine (ChiScan) (04/14/2021), Elsewhere; Flu vaccine - Adult (02/18/2024), [...] Med Onc Follow-up Note (Amended) Patient Name: MARISEAL HANNAH Date Of : 1950 Today's Provider:?Oziel [...] Oral 02/18/2024 Docusate Sodium Oral 02/18/2024 Vitamin L37-Iqzma Acid Oral 500 mcg-400 mcg 11/13/2022 Levothyroxine [...] signed by Oziel Box MD 02/21/2024 11:02 [employer]ITION 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
--- OUTSIDE RECORDS SUMMARY | 2024-09-18 08:42 | XMS_ITS ---
Author Name Interface, D3Qncncec lity Address [address] [facility] [address] [address] [facility] Oncology Address [address] [facility] [address] [address] Allergies and Adverse Reactions Medication/Group Name Reaction [...] 20 MIN 05/13/2022 APPOINTMENT CHART CHECK 5 WA N 05/08/2022 APPOINTMENT OV 20 MIN 05/08/2022 [...] 15 MIN 02/20/2022 APPOINTMENT CHART CHECK 5 WA N 01/16/2022 APPOINTMENT PORT DRAW 15 MIN [...] 30 MIN 10/02/2021 APPOINTMENT CHART CHECK 5 WA N 10/01/2021 APPOINTMENT OUTSIDE TEST 5 M [...] 15 MIN 04/08/2021 APPOINTMENT CHART CHECK 5 WA N 04/07/2021 APPOINTMENT OUTSIDE TEST 5 M [...] 0.6 1.3 0.7 FINAL Oziel angelo Oncology [facility], [address] [place] [address] [place] [address] [phone] Phone: () - 12/24 iSTAT creat inine panel GFR estim ate ml/min /1.73m ^2 86.7 GFR is calculate d using the CKD-EPI equation. FINAL Oziel angelo Oncology [facility], [address] [place] [address] [place] [address] [phone] Phone: () - 12/24 CMP Album in g/dL 3.2 5.2 4.3 FINAL Oziel angelo Oncology [facility], [facility] [address] [facility] [address] [place] [address] [phone] Phone: () - 12/24 CMP Alkal ine phosp hatas e U/L 46.0 116.0 68 FINAL Oziel Tolbert a Oncology [facility], [address] [facility] [address] [place] [address] [phone] 0 Phone: () - 12/24 CMP ALT/S GPT U/L 7.0 40.0 12 FINAL Oziel angelo [place] [address] [address] [facility] 100 [facility] [phone] 0 Phone: () - 12/24 CMP AST/S GOT U/L 13.0 40.0 19 FINAL Oziel angelo [place] [address] [address] [facility] [address] [phone] Phone: () - 12/24 CMP BUN mg/dL 9.0 23.0 17 FINAL Oziel angelo [place] [address] [address] [facility] [address] [phone] 0 Phone: () - 12/24 CMP Calci um mg/dL 8.7 10.4 10.0 FINAL Oziel angelo [place] [address] [phone] 0 Phone: () - 12/24 CMP Chlor vipin mmol/L 96.0 114.0 107 FINAL Oziel angelo [place] [address] [phone] 0 Phone: () - 12/24 CMP CO2 [...] 96 hour stability window. FINAL Oziel angelo [facility] [place], [facility] [address] [phone] 0 Phone: () - 12/24 CMP Creat inine mg/dL 0.5 1.2 0.85 FINAL Oziel angelo [place] [address] [phone] 0 Phone: () - 12/24 CMP GFR estim ate ml/min /1.73m ^2 68.5 GFR is calculate d using the CKD-EPI equation. FINAL Oziel angelo [place] [address] [address] [facility] [address] [phone] 0 Phone: () - 12/24 CMP Gluco se mg/dL 73.0 126.0 207 High FINAL Oziel angelo [facility] [place], [address] [facility] [phone] 0 Phone: () - 12/24 CMP Potas sium mmol/L 3.5 5.1 4.3 FINAL Oziel angelo [facility] [place], [address] [facility] [phone] 0 Phone: () - 12/24 CMP Sodiu m mmol/L 136.0 145.0 139 FINAL Oziel angelo [facility] [place], [address] [facility] [id number] 0 Phone: () - 12/24 CMP Bilir ubin, total mg/dL 0.3 1.2 0.2 Low FINAL Oziel angelo [facility] [place], [address] [place] [address] [phone] 0 Phone: () - 12/24 CMP Total prote in g/dL 5.7 8.2 7.1 FINAL Oziel angelo [facility] [place], [address] [place] [address] [phone] 0 Phone: () - 12/24 CBC w/ auto diff WBC K/uL 3.0 8.9 5.3 FINAL [facility]iel angel[facility], [address] [facility] [address] [facility] [phone] 0 Phone: () - 12/24 CBC w/ auto diff HGB g/dL 11.3 15.2 12.5 FINAL Oziel angelo Oncology - [place] , [facility] [address] [facility] [address] [facility] [place] [phone] 0 Phone: () - 12/24 CBC w/ auto diff PLT K/uL 113.0 364.0 212 FINAL Oziel angelo [facility], [address] [place], [place] [address] [address] [facility] [phone] 0 Phone: () - 12/24 CBC w/ auto diff Dave # (ANC) K/uL 1.6 6.6 4.7 FINAL Oziel Box [place] Oncology - [place], [address] [place] [phone] 0 Phone: () - 12/24 CBC w/ auto diff Dave % % 43.0 74.0 88.2 High FINAL Oziel Tilleyot a Oncology - [place], [address] [place] [phone] 0 Phone: () - 12/24 CBC w/ auto diff IG % % 0.0 0.5 0.8 High FINAL Oziel Tilleyot a Oncology - [place], [address] [place] [phone] 0 Phone: () - 12/24 CBC w/ auto diff IG # K/uL 0.0 0.03 0.04 High FINAL Oziel Tilleyot a Oncology - [place], [address] [place] [phone] 0 Phone: () - 12/24 CBC w/ auto diff LY % % 14.0 41.0 10.0 Low FINAL Oziel Tilleyot a Oncology - [place], [address] [place] [phone] 0 Phone: () - 12/24 CBC w/ auto diff MO % % 6.0 15.0 0.8 Low FINAL Oziel Tilleyot gi Oncology - [place], [address] [place] [id number] 0 Phone: () - 12/24 CBC w/ auto diff EO % % 0.0 7.0 0.0 FINAL Oziel Tilleyot a Oncology - [place], [address] [place] [phone] 0 Phone: () - 12/24 CBC w/ auto diff BA % % 0.0 2.0 0.2 FINAL Oziel Tilleyot a Oncology - [place], [address] [place] [phone] 0 Phone: () - 12/24 CBC w/ auto diff LY # K/uL 0.4 3.6 0.5 FINAL Oziel Tilleyot a Oncology - [place], [address] [place] [phone] 0 Phone: () - 12/24 CBC w/ auto diff MO # K/uL 0.2 1.3 0.0 Low FINAL Oziel Tilleyot a Oncology - [place], [address] [place] [id number] 0 Phone: () - 12/24 CBC w/ auto diff EO # K/uL 0.0 0.6 0.0 FINAL Oziel Tilleyot a Oncology - [place], [address] [place] [id number] 0 Phone: () - 12/24 CBC w/ auto diff BA # K/uL 0.0 0.2 0.0 FINAL Oziel Tilleyot a Oncology - [place], [address] [place] [phone] 0 Phone: () - 12/24 CBC w/ auto diff NRBC % #/100W BC 0.0 0.2 0.0 FINAL Oziel Tilleyot a Oncology - [place], [address] [place] [id number] 0 Phone: () - 12/24 CBC w/ auto diff RBC M/uL 3.9 5.1 3.82 Low FINAL Oziel Tilleyot a Oncology - [place], [address] [place] [id number] 0 Phone: () - 12/24 CBC w/ auto diff HCT % 35.0 48.0 36.9 FINAL Oziel Tilleyot a Oncology - [place], [address] [place] [phone] 0 Phone: () - 12/24 CBC w/ auto diff MCV fL 80.0 104.0 96.6 FINAL Oziel Tilleyot a Oncology - [place], [address] [place] [phone] 0 Phone: () - 12/24 CBC w/ auto diff MCH pg 26.0 35.0 32.7 FINAL Oziel Tilleyot a Oncology - [place], [address] [place] [phone] 0 Phone: () - 12/24 CBC w/ auto diff MCHC g/dL 30.0 35.0 33.9 FINAL Oziel Tilleyot a Oncology - [place], [address] [place] [phone] 0 Phone: () - 12/24 CBC w/ auto diff MPV fL 9.5 13.4 9.6 FINAL Oziel Tilleyot a Oncology - [place], [address] [place] [id number] 0 Phone: () - 12/24 CBC w/ auto diff RDW % 11.4 16.1 12.90 FINAL Oziel Tilleyot a Oncology - [place], [address] [place] [phone] 0 Phone: () - 01/02 CBC w/ auto diff WBC K/uL 3.0 8.9 4.4 FINAL Lia Tilleyot a Oncology - [place], [address] [place] [id number] 0 Phone: () - 01/02 CBC w/ auto diff HGB g/dL 11.3 15.2 11.7 FINAL Lia Tilleyot a Oncology - [place], [address] [place] [phone] 0 Phone: () - 01/02 CBC w/ auto diff PLT K/uL 113.0 364.0 209 FINAL Lia Tilleyot a Oncology - [place], [address] [place] [phone] 0 Phone: () - 01/02 CBC w/ auto diff Dave # (ANC) K/uL 1.6 6.6 4.0 FINAL Lia Tilleyot a Oncology - [place], [address] [place] [phone] 0 Phone: () - 01/02 CBC w/ auto diff Dave % % 43.0 74.0 91.7 High FINAL Lia Tilleyot a Oncology - [place], [address] [place] [phone] 0 Phone: () - 01/02 CBC w/ auto diff IG % % 0.0 0.5 0.7 High FINAL Lia Tilleyot a Oncology - [place], [address] [place] [phone] 0 Phone: () - 01/02 CBC w/ auto diff IG # K/uL 0.0 0.03 0.03 FINAL Lia Tilleyot a Oncology - [place], [address] [facility] [address] [place] [phone] 0 Phone: () - 01/02 CBC w/ auto diff LY % % 14.0 41.0 6.7 Low FINAL Lia Tilleyot a Oncology - [place], [address] [facility] [address] [place] [phone] 0 Phone: () - 01/02 CBC w/ auto diff MO % % 6.0 15.0 0.7 Low FINAL Lia Tilleyot a Oncology - [place], [address] [facility] [address] [place] [id number] 0 Phone: () - 01/02 CBC w/ auto diff EO % % 0.0 7.0 0.0 FINAL Lia Tilleyot a Oncology - [place], [address] [place] [id number] 0 Phone: () - 01/02 CBC w/ auto diff BA % % 0.0 2.0 0.2 FINAL Lia Tilleyot a Oncology - [place], [address] [place] [phone] 0 Phone: () - 01/02 CBC w/ auto diff LY # K/uL 0.4 3.6 0.3 Low FINAL Lia Tilleyot a Oncology - [place], [address] [place] [phone] 0 Phone: () - 01/02 CBC w/ auto diff MO # K/uL 0.2 1.3 0.0 Low FINAL Lia Tolbert a Oncology - [place], [address] [facility] [address] [place] [phone] 0 Phone: () - 01/02 CBC w/ auto diff EO # K/uL 0.0 0.6 0.0 FINAL Lia Tolbert a Oncology - [place], [address] [facility] [address] [place] [phone] 0 Phone: () - 01/02 CBC w/ auto diff BA # K/uL 0.0 0.2 0.0 FINAL Lia Tilleyot a Oncology - [place], [address] [facility] [address] [place] [phone] 0 Phone: () - 01/02 CBC w/ auto diff NRBC % #/100W BC 0.0 0.2 0.0 FINAL Lia angelo Oncology - [place], [address] [facility] [address] [place] [phone] 0 Phone: () - 01/02 CBC w/ auto diff RBC M/uL 3.9 5.1 3.56 Low FINAL Lia Tolbert a Oncology - [place], [address] [facility] [address] [place] [id number] 0 Phone: () - 01/02 CBC w/ auto diff HCT % 35.0 48.0 34.2 Low FINAL Lia Tilleyot a Oncology - [place], [address] [facility] [address] [place] [phone] 0 Phone: () - 01/02 CBC w/ auto diff MCV fL 80.0 104.0 96.1 FINAL Lia Tilleyot a Oncology - [place], [address] [facility] [address] [place] [phone] 0 Phone: () - 01/02 CBC w/ auto diff MCH pg 26.0 35.0 32.9 FINAL Lia Tilleyot a Oncology - [place], [address] [place] [phone] 0 Phone: () - 01/02 CBC w/ auto diff MCHC g/dL 30.0 35.0 34.2 FINAL Lia angelo Oncology - [place], [address] [facility] [address] [place] [phone] 0 Phone: () - 01/02 CBC w/ auto diff MPV fL 9.5 13.4 9.5 FINAL Lia angelo Oncology - [place], [address] [facility] [address] [place] [id number] 0 Phone: () - 01/02 CBC w/ auto diff RDW % 11.4 16.1 12.80 FINAL Lia angelo Oncology - [place], [address] [facility] [address] [place] [phone] 0 Phone: () - 01/02 iSTAT creat inine panel Creat inine , iSTAT mg/dl 0.6 1.3 0.8 FINAL Lia angelo Oncology - [place], [address] [facility] [address] [place] [phone] 0 Phone: () - 01/02 iSTAT creat inine panel GFR estim ate ml/min /1.73m ^2 73.7 GFR is calculate d using the CKD-EPI equation. FINAL Lia angleo Oncology - [place], [address] [facility] [address] [place] [phone] 0 Phone: () - 01/02 CMP Album in g/dL 3.2 5.2 4.2 FINAL Lia angelo Oncology [facility], [address] [place] [phone] 0 Phone: () - 01/02 CMP Alkal ine phosp hatas e U/L 46.0 116.0 58 FINAL Lia angelo Oncology [facility], [address] [place] [phone] 0 Phone: () - 01/02 CMP ALT/S GPT U/L 7.0 40.0 13 FINAL [facility] [address] [facility] 100 [facility] [phone] 0 Phone: () - 01/02 CMP AST/S GOT U/L 13.0 40.0 20 FINAL [facility] [address] [facility] [address] [id number] 0 Phone: () - 01/02 CMP BUN mg/dL 9.0 23.0 17 FINAL [place] [address] [address] [facility] [address] [id number] 0 Phone: () - 01/02 CMP Calci um mg/dL 8.7 10.4 10.7 High FINAL [place] [address] [id number] 0 Phone: () - 01/02 CMP Chlor vipin mmol/L 96.0 114.0 109 FINAL [place] [address] [phone] Phone: () - 01/02 CMP CO2 [...] of the 96 hour stability window. FINAL [place] [address] [id number] 0 Phone: () - 01/02 CMP Creat inine mg/dL 0.5 1.2 0.76 FINAL [place] [address] [id number] 0 Phone: () - 01/02 CMP GFR estim ate ml/min /1.73m ^2 78.4 GFR is calculate d using the CKD-EPI equation. FINAL [place] [address] [id number] 0 Phone: () - 01/02 CMP Gluco se mg/dL 73.0 126.0 122 [facility], [address] [facility] [phone] 0 Phone: () - 01/02 CMP Potas sium mmol/L 3.5 5.1 4.4 [facility], [address] [facility] [phone] 0 Phone: () - 01/02 CMP Sodiu m mmol/L 136.0 145.0 140 [facility], [address] [facility] [id number] 0 Phone: () - 01/02 CMP Bilir ubin, total mg/dL 0.3 1.2 0.3 FINAL Lia Delgado [facility], [address] [facility] [id number] 0 Phone: () - 01/02 CMP Total prote in g/dL 5.7 8.2 6.8 FINAL Liagi Delgado [facility], [address] [facility] [phone] 0 Phone: () - 01/09 Smear revie w panel CBC Smear revie w comme nts Consist ent with reporte d results FINAL Lia Delgado [facility] Oncology - [place] , [address] [facility] [address] [facility] [phone] 0 Phone: () - 01/09 CBC w/ auto diff WBC K/uL 3.0 8.9 4.8 FINAL [facility] [place], [address] [facility] [place] [phone] 0 Phone: () - 01/09 CBC w/ auto diff HGB g/dL 11.3 15.2 11.8 FINAL Lia Delgado [facility] Oncology - [place], [address] [place], [place] [address] [facility] [place] [phone] 0 Phone: () - 01/09 CBC w/ auto diff PLT K/uL 113.0 364.0 165 FINAL Liagi Tilleyot a Oncology - [place], [address] [place] [phone] 0 Phone: () - 01/09 CBC w/ auto diff Dave # (ANC) K/uL 1.6 6.6 4.4 FINAL Lia Tilleyot a Oncology - [place], [address] [place] [id number] 0 Phone: () - 01/09 CBC w/ auto diff Dave % % 43.0 74.0 91.5 High FINAL Lia Tilleyot a Oncology - [place], [address] [place] [id number] 0 Phone: () - 01/09 CBC w/ auto diff IG % % 0.0 0.5 1.5 High FINAL Lia Tilleyot a Oncology - [place], [address] [place] [phone] 0 Phone: () - 01/09 CBC w/ auto diff IG # K/uL 0.0 0.03 0.07 High FINAL Lia Tilleyot a Oncology - [place], [address] [place] [id number] 0 Phone: () - 01/09 CBC w/ auto diff LY % % 14.0 41.0 5.5 Low FINAL Lia Tilleyot a Oncology - [place], [address] [place] [id number] 0 Phone: () - 01/09 CBC w/ auto diff MO % % 6.0 15.0 1.3 Low FINAL Lia Tilleyot a Oncology - [place], [address] [place] [id number] 0 Phone: () - 01/09 CBC w/ auto diff EO % % 0.0 7.0 0.0 FINAL Lia Tilleyot a Oncology - [place], [address] [place] [phone] 0 Phone: () - 01/09 CBC w/ auto diff BA % % 0.0 2.0 0.2 FINAL Lia Tilleyot a Oncology - [place], [address] [place] [phone] 0 Phone: () - 01/09 CBC w/ auto diff LY # K/uL 0.4 3.6 0.3 Low FINAL Lia Tilleyot a Oncology - [place], [address] [place] [phone] 0 Phone: () - 01/09 CBC w/ auto diff MO # K/uL 0.2 1.3 0.1 Low FINAL Lia Tilleyot a Oncology - [place], [address] [place] [phone] 0 Phone: () - 01/09 CBC w/ auto diff EO # K/uL 0.0 0.6 0.0 FINAL Lia Tilleyot a Oncology - [place], [address] [place] [phone] 0 Phone: () - 01/09 CBC w/ auto diff BA # K/uL 0.0 0.2 0.0 FINAL Lia Tilleyot a Oncology - [place], [address] [place] [phone] 0 Phone: () - 01/09 CBC w/ auto diff NRBC % #/100W BC 0.0 0.2 0.0 FINAL Lia Tilleyot a Oncology - [place], [address] [place] [id number] 0 Phone: () - 01/09 CBC w/ auto diff RBC M/uL 3.9 5.1 3.56 Low FINAL Lia Tilleyot a Oncology - [place], [address] [place] [id number] 0 Phone: () - 01/09 CBC w/ auto diff HCT % 35.0 48.0 34.2 Low FINAL Lia Tilleyot a Oncology - [place], [address] [place] [phone] 0 Phone: () - 01/09 CBC w/ auto diff MCV fL 80.0 104.0 96.1 FINAL Lia Tilleyot a Oncology - [place], [address] [facility] [address] [place] [phone] 0 Phone: () - 01/09 CBC w/ auto diff MCH pg 26.0 35.0 33.1 FINAL Lia angelo Oncology - [place], [address] [facility] [address] [place] [phone] 0 Phone: () - 01/09 CBC w/ auto diff MCHC g/dL 30.0 35.0 34.5 FINAL Lia Tilleyot a Oncology - [place], [address] [facility] [address] [place] [phone] 0 Phone: () - 01/09 CBC w/ auto diff MPV fL 9.5 13.4 9.4 Low FINAL Lia angelo Oncology - [place], [address] [facility] [address] [place] [phone] 0 Phone: () - 01/09 CBC w/ auto diff RDW % 11.4 16.1 12.90 FINAL Lia angelo Oncology - [place], [address] [facility] [address] [place] [phone] 0 Phone: () - 01/09 CBC w/ auto diff Auto CBC comme nts Slide review to follow FINAL Lia Tolbert a Oncology - [place], [address] [facility] [address] [place] [phone] 0 Phone: () - 01/09 CMP Album in g/dL 3.2 5.2 4.2 FINAL Lia Tilley a Oncology [facility], [address] [facility] [address] [place] [phone] 0 Phone: () - 01/09 CMP Alkal ine phosp hatas e U/L 46.0 116.0 65 FINAL Lia Tilley a Oncology [facility], [address] [place] [phone] 0 Phone: () - 01/09 CMP ALT/S GPT U/L 7.0 40.0 16 FINAL [place] [address] [address] [facility] 100 [facility] [id number] 0 Phone: () - 01/09 CMP AST/S GOT U/L 13.0 40.0 19 FINAL [facility] [address] [facility] [address] [id number] 0 Phone: () - 01/09 CMP BUN mg/dL 9.0 23.0 19 FINAL [place] [address] [address] [facility] [address] [phone] 0 Phone: () - 01/09 CMP Calci um mg/dL 8.7 10.4 10.4 FINAL [place] [address] [address] [facility] [address] [id number] 0 Phone: () - 01/09 CMP Chlor vipin mmol/L 96.0 114.0 106 FINAL [place] [address] [address] [facility] [address] [id number] 0 Phone: () - 01/09 CMP CO2 [...] of the 96 hour stability window. FINAL [facility], [facility] N [address] [phone] 0 Phone: () - 01/09 CMP Creat inine mg/dL 0.5 1.2 0.78 FINAL [place] [address] [id number] 0 Phone: () - 01/09 CMP GFR estim ate ml/min /1.73m ^2 76.0 GFR is calculate d using the CKD-EPI equation. FINAL [place] [address] [address] [facility] [address] [id number] 0 Phone: () - 01/09 CMP Gluco se mg/dL 73.0 126.0 129 High FINAL Lia [facility], [address] [place] [address] [id number] 0 Phone: () - 01/09 CMP Potas sium mmol/L 3.5 5.1 4.5 FINAL [facility], [address] [place] [address] [phone] 0 Phone: () - 01/09 CMP Sodiu m mmol/L 136.0 145.0 139 FINAL [facility], [address] [place] [address] [id number] 0 Phone: () - 01/09 CMP Bilir ubin, total mg/dL 0.3 1.2 0.4 FINAL [facility], [address] [facility] [address] [place] [address] [phone] 0 Phone: () - 01/09 CMP Total prote in g/dL 5.7 8.2 6.7 FINAL [facility], [address] [place] [address] [id number] 0 Phone: () - 01/09 iSTAT creat inine panel Creat inine , iSTAT mg/dl 0.6 1.3 0.7 FINAL Liagi Delgado [facility], [address] [facility] [address] [place] [address] [phone] 0 Phone: () - 01/09 iSTAT creat inine panel GFR estim ate ml/min /1.73m ^2 86.6 GFR is calculate d using the CKD-EPI equation. FINAL [facility], [address] [place] [address] [place] [address] [phone] 0 Phone: () - 01/16 iSTAT creat inine panel Creat inine , iSTAT mg/dl 0.6 1.3 0.8 FINAL [facility], [address] [place] [address] [place] [phone] 0 Phone: () - 01/16 iSTAT creat inine panel GFR estim ate ml/min /1.73m ^2 73.7 GFR is calculate d using the CKD-EPI equation. FINAL Lia Tolbert a Oncology - [place], [address] [place] [phone] 0 Phone: () - 01/16 Smear revie w panel CBC Smear revie w comme nts Consist ent with reporte d results FINAL Lia Tolbert a Oncology - [place], [address] [place] [phone] 0 Phone: () - 01/16 CBC w/ auto diff LY % % 14.0 41.0 4.0 Low FINAL Lia Tolbert a Oncology - [place], [address] [place] [phone] 0 Phone: () - 01/16 CBC w/ auto diff MO % % 6.0 15.0 1.6 Low FINAL Lia Tolbert a Oncology - [place], [address] [place] [phone] 0 Phone: () - 01/16 CBC w/ auto diff EO % % 0.0 7.0 0.0 FINAL Lia angelo Oncology - [place], [address] [place] [phone] 0 Phone: () - 01/16 CBC w/ auto diff BA % % 0.0 2.0 0.2 FINAL Lia Tolbert a Oncology - [place], [address] [place] [phone] 0 Phone: () - 01/16 CBC w/ auto diff LY # K/uL 0.4 3.6 0.2 Low FINAL Lia Tolbert a Oncology - [place], [address] [place] [phone] 0 Phone: () - 01/16 CBC w/ auto diff MO # K/uL 0.2 1.3 0.1 Low FINAL Lia Tilleyot a Oncology - [place], [address] [place] [id number] 0 Phone: () - 01/16 CBC w/ auto diff EO # K/uL 0.0 0.6 0.0 FINAL Lia Tilleyot a Oncology - [place], [address] [place] [phone] 0 Phone: () - 01/16 CBC w/ auto diff BA # K/uL 0.0 0.2 0.0 FINAL Lia Tilleyot a Oncology - [place], [address] [place] [phone] 0 Phone: () - 01/16 CBC w/ auto diff NRBC % #/100W BC 0.0 0.2 0.0 FINAL Lia Tilleyot a Oncology - [place], [address] [place] [phone] 0 Phone: () - 01/16 CBC w/ auto diff RBC M/uL 3.9 5.1 3.30 Low FINAL Lia Tilleyot a Oncology - [place], [address] [place] [phone] 0 Phone: () - 01/16 CBC w/ auto diff HCT % 35.0 48.0 32.8 Low FINAL [facility] - [place], [address] [place] [id number] 0 Phone: () - 01/16 CBC w/ auto diff MCV fL 80.0 104.0 99.4 FINAL [facility] [place], [address] [place] [phone] 0 Phone: () - 01/16 CBC w/ auto diff MCH pg 26.0 35.0 33.3 FINAL [facility] [place], [address] [place] [id number] 0 Phone: () - 01/16 CBC w/ auto diff MCHC g/dL 30.0 35.0 33.5 FINAL [facility] [place], [address] [place] [id number] 0 Phone: () - 01/16 CBC w/ auto diff MPV fL 9.5 13.4 9.2 Low FINAL [facility] [place], [address] [place] [id number] 0 Phone: () - 01/16 CBC w/ auto diff RDW % 11.4 16.1 13.90 FINAL [facility] [place], [address] [place] [phone] 0 Phone: () - 01/16 CBC w/ auto diff Auto CBC comme nts Slide review to follow FINAL [facility] [place], [address] [facility] [address] [place] [id number] 0 Phone: () - 01/16 CBC w/ auto diff HGB g/dL 11.3 15.2 11.0 Low FINAL [facility] [place], [address] [facility] [address] [place] [id number] 0 Phone: () - 01/16 CBC w/ auto diff PLT K/uL 113.0 364.0 144 FINAL [facility] [place], [address] [place] [id number] 0 Phone: () - 01/16 CBC w/ auto diff Dave # (ANC) K/uL 1.6 6.6 4.2 FINAL [facility] [place], [address] [place] [id number] 0 Phone: () - 01/16 CBC w/ auto diff Dave % % 43.0 74.0 92.4 High FINAL [facility] [place], [address] [place] [id number] 0 Phone: () - 01/16 CBC w/ auto diff IG % % 0.0 0.5 1.8 High FINAL [facility] [address] [facility] [address] [facility] [place] [id number] 0 Phone: () - 01/16 CBC w/ auto diff IG # K/uL 0.0 0.03 0.08 High FINAL [facility], [address] [facility] [address] [facility] [place] [id number] 0 Phone: () - 01/16 CBC w/ auto diff WBC K/uL 3.0 8.9 4.5 FINAL Lia angelo [facility], [address] [facility] [address] [facility] [id number] 0 Phone: () - 01/16 CMP Album in g/dL 3.2 5.2 3.9 FINAL [place] [address] [facility] [address] [place] [address] [id number] 0 Phone: () - 01/16 CMP Alkal ine phosp hatas e U/L 46.0 116.0 62 FINAL Lia Delgado [place] [address] [id number] 0 Phone: () - 01/16 CMP ALT/S GPT U/L 7.0 40.0 19 FINAL Lia Delgado [place] [address] [id number] 0 Phone: () - 01/16 CMP AST/S GOT U/L 13.0 40.0 18 FINAL [place] [address] [address] [facility] [address] [id number] 0 Phone: () - 01/16 CMP BUN mg/dL 9.0 23.0 21 FINAL [place] [address] [address] [facility] [address] [place] [address] [id number] 0 Phone: () - 01/16 CMP Calci um mg/dL 8.7 10.4 10.3 FINAL [place] [address] [id number] 0 Phone: () - 01/16 CMP Chlor vipin mmol/L 96.0 114.0 108 FINAL [place] [address] [id number] 0 Phone: () - 01/16 CMP CO2 [...] of the 96 hour stability window. FINAL [place] [address] [id number] 0 Phone: () - 01/16 CMP Creat inine mg/dL 0.5 1.2 0.78 FINAL [place] [address] [id number] 0 Phone: () - 01/16 CMP GFR estim ate ml/min /1.73m ^2 76.0 GFR is calculate d using the CKD-EPI equation. FINAL [place] [address] [phone] 0 Phone: () - 01/16 CMP Gluco se mg/dL 73.0 126.0 138 High FINAL [place] [address] [id number] 0 Phone: () - 01/16 CMP Potas sium mmol/L 3.5 5.1 4.2 FINAL [place] [address] [id number] 0 Phone: () - 01/16 CMP Sodiu m mmol/L 136.0 145.0 140 FINAL [place] [address] [id number] 0 Phone: () - 01/16 CMP Bilir ubin, total mg/dL 0.3 1.2 0.3 FINAL [facility] [place], [address] [place] [id number] 0 Phone: () - 01/16 CMP Total prote in g/dL 5.7 8.2 6.3 FINAL [facility] angel[facility] - [place], [address] [place] [id number] 0 Phone: () - 01/23 Smear revie w panel CBC Smear revie w comme nts Consist ent with reporte d results FINAL [facility] angel[facility] - [place], [address] [place] [id number] 0 Phone: () - 01/23 iSTAT creat inine panel Creat inine , iSTAT mg/dl 0.6 1.3 0.8 FINAL [facility] angel[facility] - [place], [address] [place] [id number] 0 Phone: () - 01/23 iSTAT creat inine panel GFR estim ate ml/min /1.73m ^2 73.7 GFR is calculate d using the CKD-EPI equation. FINAL [facility] - [place], [address] [place] [id number] 0 Phone: () - 01/23 CBC w/ auto diff WBC K/uL 3.0 8.9 2.4 Low FINAL [facility] - [place], [address] [place] [id number] 0 Phone: () - 01/23 CBC w/ auto diff HGB g/dL 11.3 15.2 10.4 Low FINAL [facility] - [place], [address] [place] [id number] 0 Phone: () - 01/23 CBC w/ auto diff PLT K/uL 113.0 364.0 109 Low FINAL [facility] - [place], [address] [place] [id number] 0 Phone: () - 01/23 CBC w/ auto diff Dave # (ANC) K/uL 1.6 6.6 2.2 FINAL [facility] [place], [address] [place] [id number] 0 Phone: () - 01/23 CBC w/ auto diff Dave % % 43.0 74.0 90.0 High FINAL [facility] [place], [address] [place] [id number] 0 Phone: () - 01/23 CBC w/ auto diff IG % % 0.0 0.5 0.8 High FINAL [facility] [place], [address] [place] [id number] 0 Phone: () - 01/23 CBC w/ auto diff IG # K/uL 0.0 0.03 0.02 FINAL [facility] [place], [address] [place] [id number] 0 Phone: () - 01/23 CBC w/ auto diff LY % % 14.0 41.0 7.1 Low FINAL [facility] [place], [address] [place] [id number] 0 Phone: () - 01/23 CBC w/ auto diff MO % % 6.0 15.0 2.1 Low FINAL [facility] [place], [address] [place] [id number] 0 Phone: () - 01/23 CBC w/ auto diff EO % % 0.0 7.0 0.0 FINAL [facility] [place], [address] [place] [id number] 0 Phone: () - 01/23 CBC w/ auto diff BA % % 0.0 2.0 0.0 FINAL [facility] [place] [facility] [place], [address] [place] [id number] 0 Phone: () - 01/23 CBC w/ auto diff LY # K/uL 0.4 3.6 0.2 Low FINAL [facility] [place], [address] [place] [id number] 0 Phone: () - 01/23 CBC w/ auto diff MO # K/uL 0.2 1.3 0.1 Low FINAL [facility] [place], [address] [place] [id number] 0 Phone: () - 01/23 CBC w/ auto diff EO # K/uL 0.0 0.6 0.0 FINAL [facility] [place], [address] [place] [id number] 0 Phone: () - 01/23 CBC w/ auto diff BA # K/uL 0.0 0.2 0.0 FINAL [facility] [place], [address] [place] [id number] 0 Phone: () - 01/23 CBC w/ auto diff NRBC % #/100W BC 0.0 0.2 0.0 FINAL [facility] [place], [address] [place] [id number] 0 Phone: () - 01/23 CBC w/ auto diff RBC M/uL 3.9 5.1 3.14 Low FINAL [facility] [place], [address] [place] [id number] 0 Phone: () - 01/23 CBC w/ auto diff HCT % 35.0 48.0 31.4 Low FINAL [facility] [place], [address] [place] [id number] 0 Phone: () - 01/23 CBC w/ auto diff MCV fL 80.0 104.0 100.0 FINAL [facility] [place], [address] [facility] [address] [place] [id number] 0 Phone: () - 01/23 CBC w/ auto diff MCH pg 26.0 35.0 33.1 FINAL [facility] [place], [address] [facility] [address] [place] [id number] 0 Phone: () - 01/23 CBC w/ auto diff MCHC g/dL 30.0 35.0 33.1 FINAL [facility] [place], [address] [facility] [address] [place] [id number] 0 Phone: () - 01/23 CBC w/ auto diff MPV fL 9.5 13.4 8.7 Low FINAL [facility] [place], [address] [facility] [address] [place] [id number] 0 Phone: () - 01/23 CBC w/ auto diff RDW % 11.4 16.1 15.00 FINAL [facility] - [place], [address] [facility] [address] [place] [id number] 0 Phone: () - 01/23 CBC w/ auto diff Auto CBC comme nts Slide review to follow FINAL [facility] - [place], [address] [facility] [address] [place] [id number] 0 Phone: () - 01/23 CMP Album in g/dL 3.2 5.2 3.8 FINAL [facility] - [place], [address] [place] [id number] 0 Phone: () - 01/23 CMP Alkal ine phosp hatas e U/L 46.0 116.0 61 FINAL [facility] - [place], [address] [place] [id number] 0 Phone: () - 01/23 CMP ALT/S GPT U/L 7.0 40.0 24 FINAL [facility], [address] [facility] 100 [facility] [id number] 0 Phone: () - 01/23 CMP AST/S GOT U/L 13.0 40.0 21 FINAL [facility] [address] [facility] [address] [id number] 0 Phone: () - 01/23 CMP BUN mg/dL 9.0 23.0 22 FINAL [place] [address] [address] [facility] [address] [id number] 0 Phone: () - 01/23 CMP Calci um mg/dL 8.7 10.4 9.1 FINAL [place] [address] [id number] 0 Phone: () - 01/23 CMP Chlor vipin mmol/L 96.0 114.0 110 FINAL [place] [address] [id number] 0 Phone: () - 01/23 CMP CO2 [...] of the 96 hour stability window. FINAL [place] [address] [id number] 0 Phone: () - 01/23 CMP Creat inine mg/dL 0.5 1.2 0.74 FINAL [place] [address] [id number] 0 Phone: () - 01/23 CMP GFR estim ate ml/min /1.73m ^2 81.0 GFR is calculate d using the CKD-EPI equation. FINAL [place] [address] [address] [facility] [address] [id number] 0 Phone: () - 01/23 CMP Gluco se mg/dL 73.0 126.0 148 High FINAL [facility], [address] [place] [address] [id number] 0 Phone: () - 01/23 CMP Potas sium mmol/L 3.5 5.1 4.4 FINAL [facility] [address] [place] [address] [id number] 0 Phone: () - 01/23 CMP Sodiu m mmol/L 136.0 145.0 141 FINAL [facility] [address] [place] [address] [id number] 0 Phone: () - 01/23 CMP Bilir ubin, total mg/dL 0.3 1.2 0.3 FINAL [facility] [address] [place] [address] [id number] 0 Phone: () - 01/23 CMP Total prote in g/dL 5.7 8.2 6.1 FINAL [facility] [address] [place] [address] [id number] 0 Phone: () - 01/30 CMP Album in g/dL 3.2 5.2 4.1 FINAL [facility] [address] [place] [address] [id number] 0 Phone: () - 01/30 CMP Alkal ine phosp hatas e U/L 46.0 116.0 63 FINAL [facility], [address] [place] [address] [id number] 0 Phone: () - 01/30 CMP ALT/S GPT U/L 7.0 40.0 19 FINAL [place] [address] [place] [address] [id number] 0 Phone: () - 01/30 CMP AST/S GOT U/L 13.0 40.0 22 FINAL [place] [address] [place] [address] [id number] 0 Phone: () - 01/30 CMP BUN mg/dL 9.0 23.0 22 FINAL [place] [address] [address] [facility] [address] [place] [address] [id number] 0 Phone: () - 01/30 CMP Calci um mg/dL 8.7 10.4 9.8 FINAL [facility] [address] [facility] 100 [facility] [id number] 0 Phone: () - 01/30 CMP Chlor vipin mmol/L 96.0 114.0 111 FINAL [place] [address] [address] [facility] [address] [id number] 0 Phone: () - 01/30 CMP CO2 [...] of the 96 hour stability window. FINAL [place] [address] [address] [facility] [address] [id number] 0 Phone: () - 01/30 CMP Creat inine mg/dL 0.5 1.2 0.73 [place] [address] [address] [facility] [address] [id number] 0 Phone: () - 01/30 CMP GFR estim ate ml/min /1.73m ^2 82.3 GFR is calculate d using the CKD-EPI equation. FINAL [place] [address] [address] [facility] [address] [id number] 0 Phone: () - 01/30 CMP Gluco se mg/dL 73.0 126.0 122 FINAL [facility] [address] [facility] [address] [facility] [id number] 0 Phone: () - 01/30 CMP Potas sium mmol/L 3.5 5.1 4.8 [place] [address] [place] [address] [id number] 0 Phone: () - 01/30 CMP Sodiu m mmol/L 136.0 145.0 140 FINAL [facility], [address] [facility] [address] [facility] [id number] 0 Phone: () - 01/30 CMP Bilir ubin, total mg/dL 0.3 1.2 0.3 FINAL [facility], [address] [facility] [id number] 0 Phone: () - 01/30 CMP Total prote in g/dL 5.7 8.2 6.7 FINAL Lia Tilleyot a [facility] [place], [address] [facility] [address] [facility] [id number] 0 Phone: () - 01/30 CBC w/ auto diff WBC K/uL 3.0 8.9 2.3 Low FINAL [facility] [place], [address] [place] [address] d [address] [place] [facility] [id number] 0 Phone: () - 01/30 CBC w/ auto diff HGB g/dL 11.3 15.2 11.0 Low FINAL [facility] [place], [address] [place] [address] d [address] [place] [facility] [id number] 0 Phone: () - 01/30 CBC w/ auto diff PLT K/uL 113.0 364.0 103 Low FINAL [facility] [place], [address] [place] [address] [facility] [address] [place] [id number] 0 Phone: () - 01/30 CBC w/ auto diff Dave # (ANC) K/uL 1.6 6.6 2.1 FINAL [facility] - [place], [address] [place] [address] d [address] [place] [id number] 0 Phone: () - 01/30 CBC w/ auto diff Dave % % 43.0 74.0 89.6 High FINAL [facility] - [place], [address] [place] [address] [facility] [address] [place] [id number] 0 Phone: () - 01/30 CBC w/ auto diff IG % % 0.0 0.5 0.9 High FINAL [facility] - [place], [address] [place] [id number] 0 Phone: () - 01/30 CBC w/ auto diff IG # K/uL 0.0 0.03 0.02 FINAL [facility] - [place], [address] [facility] [address] [place] [id number] 0 Phone: () - 01/30 CBC w/ auto diff LY % % 14.0 41.0 7.3 Low FINAL [facility] - [place], [address] [facility] [address] [place] [id number] 0 Phone: () - 01/30 CBC w/ auto diff MO % % 6.0 15.0 2.2 Low FINAL [facility] - [place], [address] [facility] [address] [place] [id number] 0 Phone: () - 01/30 CBC w/ auto diff EO % % 0.0 7.0 0.0 FINAL [facility] - [place], [address] [facility] [address] [place] [id number] 0 Phone: () - 01/30 CBC w/ auto diff BA % % 0.0 2.0 0.0 FINAL [facility] - [place], [address] [facility] [address] [place] [id number] 0 Phone: () - 01/30 CBC w/ auto diff LY # K/uL 0.4 3.6 0.2 Low FINAL [facility] - [place], [address] [facility] [address] [place] [id number] 0 Phone: () - 01/30 CBC w/ auto diff MO # K/uL 0.2 1.3 0.1 Low FINAL [facility] - [place], [address] [place] [id number] 0 Phone: () - 01/30 CBC w/ auto diff EO # K/uL 0.0 0.6 0.0 FINAL [facility] - [place], [address] [place] [id number] 0 Phone: () - 01/30 CBC w/ auto diff BA # K/uL 0.0 0.2 0.0 FINAL Lia Tolbert a [facility] - [place], [address] [place] [id number] 0 Phone: () - 01/30 CBC w/ auto diff NRBC % #/100W BC 0.0 0.2 0.0 FINAL [facility] - [place], [address] [place] [id number] 0 Phone: () - 01/30 CBC w/ auto diff RBC M/uL 3.9 5.1 3.23 Low FINAL Lia Tolbert [facility] - [place], [address] [place] [id number] 0 Phone: () - 01/30 CBC w/ auto diff HCT % 35.0 48.0 32.4 Low FINAL Lia Tolbert a [facility] - [place], [address] [place] [id number] 0 Phone: () - 01/30 CBC w/ auto diff MCV fL 80.0 104.0 100.3 FINAL Lia Tolbert a [facility] - [place], [address] [place] [id number] 0 Phone: () - 01/30 CBC w/ auto diff MCH pg 26.0 35.0 34.1 FINAL [facility] - [place], [address] [place] [id number] 0 Phone: () - 01/30 CBC w/ auto diff MCHC g/dL 30.0 35.0 34.0 FINAL Lia angelo [facility] - [place], [address] [place] [id number] 0 Phone: () - 01/30 CBC w/ auto diff MPV fL 9.5 13.4 9.2 Low FINAL Lia angelo [facility] - [place], [address] [place] [id number] 0 Phone: () - 01/30 CBC w/ auto diff RDW % 11.4 16.1 14.80 FINAL Lia angelo [facility] - [place], [address] [place] [id number] 0 Phone: () - 01/30 CBC w/ auto diff Auto CBC comme nts Slide review to follow FINAL Lia angel[facility] - [place], [address] [place] [id number] 0 Phone: () - 01/30 Smear revie w panel CBC Smear revie w comme nts Consist ent with reporte d results FINAL Lia angelo [facility] - [place], [address] [place] [phone] 0 Phone: () - 01/30 iSTAT creat inine panel Creat inine , iSTAT mg/dl 0.6 1.3 0.7 FINAL Lia angelo [facility] - [place], [address] [place] [id number] 0 Phone: () - 01/30 iSTAT creat inine panel GFR estim ate ml/min /1.73m ^2 86.6 GFR is calculate d using the CKD-EPI equation. FINAL Lia angelo [facility] - [place], [address] [place] [id number] 0 Phone: () - 02/17 CMP Album in g/dL 3.2 5.2 3.9 FINAL Oziel Tolbert a [facility] - [place], [address] [place] [id number] 0 Phone: () - 02/17 CMP Alkal ine phosp hatas e U/L 46.0 116.0 57 FINAL Oziel angelo [place] [address] [address] [facility] [address] [id number] 0 Phone: () - 02/17 CMP ALT/S GPT U/L 7.0 40.0 13 FINAL Oziel angelo [place] [address] [id number] 0 Phone: () - 02/17 CMP AST/S GOT U/L 13.0 40.0 19 FINAL Oziel angelo [place] [address] [address] [facility] [address] [id number] 0 Phone: () - 02/17 CMP BUN mg/dL 9.0 23.0 13 FINAL Oziel angelo [place] [address] [id number] 0 Phone: () - 02/17 CMP Calci um mg/dL 8.7 10.4 9.3 FINAL Oziel angelo [place] [address] [address] [facility] [address] [id number] 0 Phone: () - 02/17 CMP Chlor vipin mmol/L 96.0 114.0 111 FINAL Oziel angelo [place] [address] [id number] 0 Phone: () - 02/17 CMP CO2 [...] 96 hour stability window. FINAL Oziel angelo [facility] [place], [facility] N [facility] [address] [id number] 0 Phone: () - 02/17 CMP Creat inine mg/dL 0.5 1.2 0.88 FINAL Oziel angelo [place] [address] [address] [facility] [address] [id number] 0 Phone: () - 02/17 CMP GFR estim ate ml/min /1.73m ^2 65.6 GFR is calculate d using the CKD-EPI equation. FINAL Oziel angelo [facility] [place], [facility] [address] [id number] 0 Phone: () - 02/17 CMP Gluco se mg/dL 73.0 126.0 63 Low FINAL Oziel angelo [place] [address] [id number] 0 Phone: () - 02/17 CMP Potas sium mmol/L 3.5 5.1 4.2 FINAL Oziel angelo [place] [address] [id number] 0 Phone: () - 02/17 CMP Sodiu m mmol/L 136.0 145.0 143 FINAL Oziel angelo [place] [address] [id number] 0 Phone: () - 02/17 CMP Bilir ubin, total mg/dL 0.3 1.2 0.3 FINAL Oziel angelo [place] [address] [id number] 0 Phone: () - 02/17 CMP Total prote in g/dL 5.7 8.2 6.4 FINAL Oziel angelo [place] [address] [id number] 0 Phone: () - 02/17 TSH w/ refle x to free T4 TSH uIU/ml 0.32 5.0 3.46 Test performed at [facility] on a Phone Warrior [employer] ay Analyzer that uses an immunoenz ymometric sandwich assay for analysis. Patient testing should not be performed using multiple kathi amador due to analytica l variation seen between test kathi amador. FINAL Oziel angelo [place] [address] [id number] 0 Phone: () - 02/17 CBC w/ auto diff WBC K/uL 3.0 8.9 3.7 FINAL Oziel angelo [facility], [address] [facility] [id number] 0 Phone: () - 02/17 CBC w/ auto diff HGB g/dL 11.3 15.2 10.2 Low FINAL Oz[facility] angel[facility] [place], [address] [place] [id number] 0 Phone: () - 02/17 CBC w/ auto diff PLT K/uL 113.0 364.0 213 FINAL [facility] [place], [address] [place] [id number] 0 Phone: () - 02/17 CBC w/ auto diff Dave # (ANC) K/uL 1.6 6.6 2.1 FINAL [facility] [place], [address] [facility] [address] [place] [id number] 0 Phone: () - 02/17 CBC w/ auto diff Dave % % 43.0 74.0 57.4 FINAL Oz[facility] angel[facility] - [place], [address] [facility] [address] [place] [id number] 0 Phone: () - 02/17 CBC w/ auto diff IG % % 0.0 0.5 0.8 High FINAL Oz[facility] angel[facility] - [place], [address] [place] [id number] 0 Phone: () - 02/17 CBC w/ auto diff IG # K/uL 0.0 0.03 0.03 FINAL [facility] - [place], [address] [place] [id number] 0 Phone: () - 02/17 CBC w/ auto diff LY % % 14.0 41.0 21.7 FINAL [facility] - [place], [address] [place] [id number] 0 Phone: () - 02/17 CBC w/ auto diff MO % % 6.0 15.0 18.5 High FINAL Oziel Tilleyot gi [facility] - [place], [address] [place] [id number] 0 Phone: () - 02/17 CBC w/ auto diff EO % % 0.0 7.0 1.1 FINAL [facility] - [place], [address] [facility] [address] [place] [id number] 0 Phone: () - 02/17 CBC w/ auto diff BA % % 0.0 2.0 0.5 FINAL Oz[facility] angel[facility] - [place], [address] [facility] [address] [place] [id number] 0 Phone: () - 02/17 CBC w/ auto diff LY # K/uL 0.4 3.6 0.8 FINAL [facility] - [place], [address] [facility] [address] [place] [id number] 0 Phone: () - 02/17 CBC w/ auto diff MO # K/uL 0.2 1.3 0.7 FINAL [facility] - [place], [address] [facility] [address] [place] [id number] 0 Phone: () - 02/17 CBC w/ auto diff EO # K/uL 0.0 0.6 0.0 FINAL Oz[facility] angel[facility] - [place], [address] [place] [id number] 0 Phone: () - 02/17 CBC w/ auto diff BA # K/uL 0.0 0.2 0.0 FINAL [facility] [place], [address] [place] [id number] 0 Phone: () - 02/17 CBC w/ auto diff NRBC % #/100W BC 0.0 0.2 0.0 FINAL [facility] [place], [address] [place] [phone] 0 Phone: () - 02/17 CBC w/ auto diff RBC M/uL 3.9 5.1 2.96 Low FINAL [facility] [place], [address] [place] [id number] Phone: () - 02/17 CBC w/ auto diff HCT % 35.0 48.0 30.3 Low FINAL [facility] [place], [address] [place] [id number] 0 Phone: () - 02/17 CBC w/ auto diff MCV fL 80.0 104.0 102.4 FINAL [facility] [place], [address] [place] [id number] 0 Phone: () - 02/17 CBC w/ auto diff MCH pg 26.0 35.0 34.5 FINAL [facility] [place], [address] [place] [phone] 0 Phone: () - 02/17 CBC w/ auto diff MCHC g/dL 30.0 35.0 33.7 FINAL [facility] [place], [address] [place] [id number] 0 Phone: () - 02/17 CBC w/ auto diff MPV fL 9.5 13.4 8.5 Low FINAL [facility] [place], [address] [place] [id number] 0 Phone: () - 02/17 CBC w/ auto diff RDW % 11.4 16.1 17.40 High FINAL [facility] [place], [address] [place] [id number] 0 Phone: () - 03/17 CBC w/ auto diff WBC K/uL 3.0 8.9 4.5 FINAL [facility] [place], [address] [place] [id number] 0 Phone: () - 03/17 CBC w/ auto diff HGB g/dL 11.3 15.2 11.6 FINAL [facility] [place], [address] [place] [id number] 0 Phone: () - 03/17 CBC w/ auto diff PLT K/uL 113.0 364.0 213 FINAL [facility] [place], [address] [place] [id number] 0 Phone: () - 03/17 CBC w/ auto diff Dave # (ANC) K/uL 1.6 6.6 2.6 FINAL [facility] [place], [address] [place] [id number] 0 Phone: () - 03/17 CBC w/ auto diff Dave % % 43.0 74.0 57.9 FINAL [facility] [place], [address] [place] [id number] 0 Phone: () - 03/17 CBC w/ auto diff IG % % 0.0 0.5 0.4 FINAL [facility] [place], [address] [place] [id number] 0 Phone: () - 03/17 CBC w/ auto diff IG # K/uL 0.0 0.03 0.02 FINAL [facility] [place], [address] [place] [id number] 0 Phone: () - 03/17 CBC w/ auto diff LY % % 14.0 41.0 22.1 FINAL [facility] [place], [address] [place] [id number] 0 Phone: () - 03/17 CBC w/ auto diff MO % % 6.0 15.0 12.9 FINAL [facility] [place], [address] [place] [id number] 0 Phone: () - 03/17 CBC w/ auto diff EO % % 0.0 7.0 5.8 FINAL [facility] [place], [address] [place] [id number] 0 Phone: () - 03/17 CBC w/ auto diff BA % % 0.0 2.0 0.9 FINAL [facility] [place], [address] [place] [id number] 0 Phone: () - 03/17 CBC w/ auto diff LY # K/uL 0.4 3.6 1.0 FINAL [facility] [place], [address] [place] [id number] 0 Phone: () - 03/17 CBC w/ auto diff MO # K/uL 0.2 1.3 0.6 FINAL [facility] [place], [address] [place] [id number] 0 Phone: () - 03/17 CBC w/ auto diff EO # K/uL 0.0 0.6 0.3 FINAL [facility] [place], [address] [place] [id number] 0 Phone: () - 03/17 CBC w/ auto diff BA # K/uL 0.0 0.2 0.0 FINAL [facility] [place], [address] [place] [id number] 0 Phone: () - 03/17 CBC w/ auto diff NRBC % #/100W BC 0.0 0.2 0.0 FINAL [facility] [place], [address] [place] [id number] 0 Phone: () - 03/17 CBC w/ auto diff RBC M/uL 3.9 5.1 3.26 Low FINAL [facility] [place], [address] [place] [id number] 0 Phone: () - 03/17 CBC w/ auto diff HCT % 35.0 48.0 34.1 Low FINAL [facility] [place], [address] [place] [id number] 0 Phone: () - 03/17 CBC w/ auto diff MCV fL 80.0 104.0 104.6 High FINAL [facility] [place], [address] [place] [id number] 0 Phone: () - 03/17 CBC w/ auto diff MCH pg 26.0 35.0 35.6 High FINAL [facility] [place], [address] [place] [id number] 0 Phone: () - 03/17 CBC w/ auto diff MCHC g/dL 30.0 35.0 34.0 FINAL [facility] [place], [address] [place] [id number] 0 Phone: () - 03/17 CBC w/ auto diff MPV fL 9.5 13.4 8.6 Low FINAL [facility] [place], [address] [place] [id number] 0 Phone: () - 03/17 CBC w/ auto diff RDW % 11.4 16.1 15.20 FINAL [facility] [place], [address] [place] [id number] 0 Phone: () - 03/17 CMP Album in g/dL 3.2 5.2 4.1 FINAL [facility] [place], [address] [place] [id number] 0 Phone: () - 03/17 CMP Alkal ine phosp hatas e U/L 46.0 116.0 54 FINAL [facility] [place], [address] [place] [id number] 0 Phone: () - 03/17 CMP ALT/S GPT U/L 7.0 40.0 12 FINAL [facility] [place], [address] [facility] [id number] 0 Phone: () - 03/17 CMP AST/S GOT U/L 13.0 40.0 20 FINAL [facility] [place] [address] [address] [facility] 100 [facility] [id number] 0 Phone: () - 03/17 CMP BUN mg/dL 9.0 23.0 20 FINAL [facility] angelo [place] [address] [address] [facility] 100 [facility] [id number] 0 Phone: () - 03/17 CMP Calci um mg/dL 8.7 10.4 9.8 FINAL [facility] angel[facility] [place] [address] [id number] 0 Phone: () - 03/17 CMP Chlor vipin mmol/L 96.0 114.0 109 FINAL [facility] [place] [address] [id number] 0 Phone: () - 03/17 CMP CO2 [...] 96 hour stability window. FINAL [facility] [place] [address] [id number] 0 Phone: () - 03/17 CMP Creat inine mg/dL 0.5 1.2 0.90 FINAL [facility] [place] [address] [id number] 0 Phone: () - 03/17 CMP GFR estim ate ml/min /1.73m ^2 63.8 GFR is calculate d using the CKD-EPI equation. FINAL [facility] [place] [address] [id number] 0 Phone: () - 03/17 CMP Gluco se mg/dL 73.0 126.0 87 [facility]AL [facility] [address] [facility] [address] [id number] 0 Phone: () - 03/17 CMP Potas sium mmol/L 3.5 5.1 4.4 FINAL [facility] [address] [facility] 100 [facility] [id number] 0 Phone: () - 03/17 CMP Sodiu m mmol/L 136.0 145.0 142 FINAL [facility] [place] [address] [address] [facility] [address] [id number] 0 Phone: () - 03/17 CMP Bilir ubin, total mg/dL 0.3 1.2 0.5 FINAL [facility] [place] [address] [id number] 0 Phone: () - 03/17 CMP Total prote in g/dL 5.7 8.2 6.7 FINAL [facility] [place] [address] [id number] 0 Phone: () - 03/17 TSH w/ refle x to free T4 TSH uIU/ml 0.32 5.0 3.06 Test performed at [facility] on a Phone [employer] Immunoass ay Analyzer that uses an immunoenz ymometric sandwich assay for analysis. Patient testing should not be performed using multiple methodolo gies due to analytica l variation seen between test methodolo ginaun. FINAL [facility] [place] [address] [id number] 0 Phone: () - 04/14 CMP Album in g/dL 3.2 5.2 4.3 FINAL [facility] [place] [address] [address] [facility] [address] [id number] 0 Phone: () - 04/14 CMP Alkal ine phosp hatas e U/L 46.0 116.0 58 FINAL [facility] [place] [address] [address] [facility] [address] [id number] 0 Phone: () - 04/14 CMP ALT/S GPT U/L 7.0 40.0 10 FINAL [facility] [place] [address] [address] [facility] 100 [facility] [id number] 0 Phone: () - 04/14 CMP AST/S GOT U/L 13.0 40.0 21 FINAL [facility] [place] [address] [address] [facility] 100 [facility] [id number] 0 Phone: () - 04/14 CMP BUN mg/dL 9.0 23.0 16 FINAL [facility] [place] [address] [id number] 0 Phone: () - 04/14 CMP Calci um mg/dL 8.7 10.4 10.0 FINAL [facility] [place] [address] [id number] 0 Phone: () - 04/14 CMP Chlor vipin mmol/L 96.0 114.0 109 FINAL [facility] [place] [address] [id number] 0 Phone: () - 04/14 CMP CO2 [...] 96 hour stability window. FINAL [facility] [place] [address] [id number] 0 Phone: () - 04/14 CMP Creat inine mg/dL 0.5 1.2 0.88 FINAL [facility] [place] [address] [id number] 0 Phone: () - 04/14 CMP GFR estim ate ml/min /1.73m ^2 65.6 GFR is calculate d using the CKD-EPI equation. FINAL [facility] [place] [address] [id number] 0 Phone: () - 04/14 CMP Gluco se mg/dL 73.0 126.0 92 FINAL [facility] angelo [place] [address] [facility] [id number] 0 Phone: () - 04/14 CMP Potas sium mmol/L 3.5 5.1 4.4 FINAL Oziel angelo [facility] [place], [address] [facility] [id number] 0 Phone: () - 04/14 CMP Sodiu m mmol/L 136.0 145.0 142 FINAL [facility]iel angel[facility] [place], [address] [facility] [id number] 0 Phone: () - 04/14 CMP Bilir ubin, total mg/dL 0.3 1.2 0.5 FINAL [facility]iel angel[facility] [place], [address] [facility] [address] [facility] [id number] 0 Phone: () - 04/14 CMP Total prote in g/dL 5.7 8.2 6.9 FINAL [facility] angel[facility] [place], [address] [facility] [address] [facility] [id number] 0 Phone: () - 04/14 CBC w/ auto diff WBC K/uL 3.0 8.9 5.0 FINAL [facility] [place], [address] [facility] [id number] 0 Phone: () - 04/14 CBC w/ auto diff HGB g/dL 11.3 15.2 12.4 FINAL [facility] [place], [address] [facility] [id number] 0 Phone: () - 04/14 CBC w/ auto diff PLT K/uL 113.0 364.0 202 FINAL [facility] [place], [address] [facility] [place] [id number] 0 Phone: () - 04/14 CBC w/ auto diff Dave # (ANC) K/uL 1.6 6.6 3.4 FINAL [facility] [place], [address] [facility] [id number] 0 Phone: () - 04/14 CBC w/ auto diff Dave % % 43.0 74.0 67.0 FINAL [facility] [place], [address] [place] [id number] 0 Phone: () - 04/14 CBC w/ auto diff IG % % 0.0 0.5 0.2 FINAL [facility] [place], [address] [place] [id number] 0 Phone: () - 04/14 CBC w/ auto diff IG # K/uL 0.0 0.03 0.01 FINAL [facility] [place], [address] [place] [id number] 0 Phone: () - 04/14 CBC w/ auto diff LY % % 14.0 41.0 22.0 FINAL [facility] [place], [address] [place] [id number] 0 Phone: () - 04/14 CBC w/ auto diff MO % % 6.0 15.0 8.4 FINAL [facility] [place], [address] [place] [id number] 0 Phone: () - 04/14 CBC w/ auto diff EO % % 0.0 7.0 2.0 FINAL [facility] [place], [address] [place] [id number] 0 Phone: () - 04/14 CBC w/ auto diff BA % % 0.0 2.0 0.4 FINAL [facility] [place], [address] [place] [id number] 0 Phone: () - 04/14 CBC w/ auto diff LY # K/uL 0.4 3.6 1.1 FINAL [facility] [place], [address] [place] [id number] 0 Phone: () - 04/14 CBC w/ auto diff MO # K/uL 0.2 1.3 0.4 FINAL [facility] [place], [address] [place] [id number] 0 Phone: () - 04/14 CBC w/ auto diff EO # K/uL 0.0 0.6 0.1 FINAL [facility] [place], [address] [place] [id number] 0 Phone: () - 04/14 CBC w/ auto diff BA # K/uL 0.0 0.2 0.0 FINAL [facility] [place], [address] [place] [id number] 0 Phone: () - 04/14 CBC w/ auto diff NRBC % #/100W BC 0.0 0.2 0.0 FINAL [facility] [place], [address] [place] [id number] 0 Phone: () - 04/14 CBC w/ auto diff RBC M/uL 3.9 5.1 3.58 Low FINAL [facility] [place], [address] [place] [id number] 0 Phone: () - 04/14 CBC w/ auto diff HCT % 35.0 48.0 36.8 FINAL [facility] [place], [address] [place] [id number] 0 Phone: () - 04/14 CBC w/ auto diff MCV fL 80.0 104.0 102.8 FINAL [facility] [place], [address] [place] [id number] 0 Phone: () - 04/14 CBC w/ auto diff MCH pg 26.0 35.0 34.6 FINAL [facility] [place], [address] [place] [id number] 0 Phone: () - 04/14 CBC w/ auto diff MCHC g/dL 30.0 35.0 33.7 FINAL [facility] [place], [facility] [address] [facility] [address] [place] [id number] 0 Phone: () - 04/14 CBC w/ auto diff MPV fL 9.5 13.4 9.4 Low FINAL [facility] [place], [facility] [address] [facility] [address] [place] [id number] 0 Phone: () - 04/14 CBC w/ auto diff RDW % 11.4 16.1 12.10 FINAL [facility] [place], [address] [place] [address] d [address] [place] [id number] 0 Phone: () - 04/14 TSH w/ refle x to free T4 TSH uIU/ml 0.32 5.0 0.79 Test performed at [facility] on a Phone [employer] Immunoass ay Analyzer that uses an immunoenz ymometric sandwich assay for analysis. Patient testing should not be performed using multiple methodolo ginaun due to analytica l variation seen between test methodolo gies. FINAL [facility] - [place], [address] [place] [id number] 0 Phone: () - 04/14 [facility] other lab See chief controller d 04/30 UA Micro scopi c WBC (ua) 0.0 2.0 21-50 Abnor mal FINAL [facility] [place], [address] [place] [address] d [address] [place] [id number] 0 Phone: () - 04/30 UA Micro scopi c RBC (ua) 0.0 2.0 3-5 Abnor mal FINAL [facility] [place], [facility] [address] [address] [place] [id number] 0 Phone: () - 04/30 UA Micro scopi c Epith elial cells (ua) Moderat e 6-10 Abnor mal FINAL [facility] [place], [facility] [address] [place] [id number] 0 Phone: () - 04/30 UA Micro scopi c Bacte aniya (ua) Few Abnor mal FINAL [facility] [place], [address] [place] [id number] 0 Phone: () - 04/30 UA Micro scopi c Mucus (ua) Negativ e FINAL [facility] [place], [address] [place] [id number] 0 Phone: () - 04/30 UA Micro scopi c Casts , urine None FINAL [facility] [place], [address] [place] [id number] 0 Phone: () - 04/30 UA Micro scopi c Cryst als (ua) None FINAL [facility] [place], [address] [place] [id number] 0 Phone: () - 04/30 UA Micro scopi c UA comme nt 1 Micro Positiv e-Cultu re Ordered Microsc opic perform ed on un-spun urine FINAL [facility] [place], [address] [place] [id number] 0 Phone: () - 04/30 Color (ua) Yellow FINAL [facility] [place], [address] [place] [id number] 0 Phone: () - 04/30 Appea serena (ua) Cloudy Abnor mal FINAL [facility] [place], [address] [place] [id number] 0 Phone: () - 04/30 Gluco se (ua), qual Negativ e FINAL [facility] [place], [address] [place] [id number] 0 Phone: () - 04/30 Bilir ubin (ua) Negativ e FINAL [facility] [place], [address] [place] [id number] 0 Phone: () - 04/30 Urina lysis , aceto ne or keton e rodriguez s measu remen t Negativ e FINAL [facility] [place], [address] [place] [id number] 0 Phone: () - 04/30 Speci fic gravi ty (ua) 1.005 1.02 1.020 FINAL [facility] [place], [address] [place] [id number] 0 Phone: () - 04/30 Blood (ua) 3+-Larg e Abnor mal FINAL [facility] [place], [address] [place] [id number] 0 Phone: () - 04/30 pH (ua) 5.0 8.0 6.0 FINAL [facility] [place], [address] [place] [id number] 0 Phone: () - 04/30 Prote in (ua) 1+ Abnor mal FINAL [facility] [place], [address] [place] [id number] 0 Phone: () - 04/30 Urobi linog en (ua) 0.2 1.0 0.2 FINAL [facility] [place], [address] [place] [id number] 0 Phone: () - 04/30 Nitri te (ua) Negativ e FINAL [facility] [place], [address] [place] [id number] 0 Phone: () - 04/30 Leuko cyte peter ase (ua), qual 2+-Mode rate Abnor mal FINAL [facility] [place], [address] [place] [id number] 0 Phone: () - 04/30 UA comme nt 1 Dipstic k Positiv e-Micro Ordered FINAL [facility] [place], [address] [place] [id number] 0 Phone: () - 04/30 Urine cultu re panel Final repor t, urine cultu re SEE RESULTS BELOW SOURCE: Urine VoidBacte aniya Identific ation in Isolate by Culture:5 0,000-100 ,000 CFU/mL of multiple organisms , probable contamina ntsTest Performed by:[facility] [facility] [address] - [facility] [place], [place] [address]Pdxw e [phone] FINAL Oziel Box 05/28 CBC w/ auto diff WBC K/uL 3.0 8.9 6.9 FINAL [facility] - [place], [address] [place] [id number] 0 Phone: () - 05/28 CBC w/ auto diff HGB g/dL 11.3 15.2 13.0 FINAL [facility] - [place], [address] [place] [id number] 0 Phone: () - 05/28 CBC w/ auto diff PLT K/uL 113.0 364.0 183 FINAL [facility] - [place], [address] [place] [id number] 0 Phone: () - 05/28 CBC w/ auto diff Dave # (ANC) K/uL 1.6 6.6 6.0 FINAL [facility] - [place], [address] [place] [id number] 0 Phone: () - 05/28 CBC w/ auto diff Dave % % 43.0 74.0 86.6 High FINAL [facility] [place], [address] [place] [id number] 0 Phone: () - 05/28 CBC w/ auto diff IG % % 0.0 0.5 0.4 FINAL [facility] - [place], [address] [place] [id number] 0 Phone: () - 05/28 CBC w/ auto diff IG # K/uL 0.0 0.03 0.03 FINAL [facility] - [place], [address] [place] [id number] 0 Phone: () - 05/28 CBC w/ auto diff LY % % 14.0 41.0 9.1 Low FINAL [facility] [place], [address] [place] [id number] 0 Phone: () - 05/28 CBC w/ auto diff MO % % 6.0 15.0 3.5 Low FINAL [facility] [place], [address] [place] [id number] 0 Phone: () - 05/28 CBC w/ auto diff EO % % 0.0 7.0 0.1 FINAL [facility] [place], [address] [place] [id number] 0 Phone: () - 05/28 CBC w/ auto diff BA % % 0.0 2.0 0.3 FINAL [facility] [place], [address] [place] [id number] 0 Phone: () - 05/28 CBC w/ auto diff LY # K/uL 0.4 3.6 0.6 FINAL [facility] - [place], [address] [place] [id number] 0 Phone: () - 05/28 CBC w/ auto diff MO # K/uL 0.2 1.3 0.2 FINAL [facility] - [place], [address] [place] [id number] 0 Phone: () - 05/28 CBC w/ auto diff EO # K/uL 0.0 0.6 0.0 FINAL [facility] - [place], [address] [place] [id number] 0 Phone: () - 05/28 CBC w/ auto diff BA # K/uL 0.0 0.2 0.0 FINAL [facility] - [place], [address] [place] [id number] 0 Phone: () - 05/28 CBC w/ auto diff NRBC % #/100W BC 0.0 0.2 0.0 FINAL [facility] - [place], [address] [place] [id number] 0 Phone: () - 05/28 CBC w/ auto diff RBC M/uL 3.9 5.1 3.83 Low FINAL [facility] - [place], [address] [place] [id number] 0 Phone: () - 05/28 CBC w/ auto diff HCT % 35.0 48.0 38.6 FINAL [facility] - [place], [address] [place] [id number] 0 Phone: () - 05/28 CBC w/ auto diff MCV fL 80.0 104.0 100.8 FINAL [facility] - [place], [address] [place] [id number] 0 Phone: () - 05/28 CBC w/ auto diff MCH pg 26.0 35.0 33.9 FINAL [facility] - [place], [address] [place] [id number] 0 Phone: () - 05/28 CBC w/ auto diff MCHC g/dL 30.0 35.0 33.7 FINAL [facility] - [place], [address] [place] [id number] 0 Phone: () - 05/28 CBC w/ auto diff MPV fL 9.5 13.4 9.0 Low FINAL [facility], [address] [facility] [address] [facility] [place] [id number] 0 Phone: () - 05/28 CBC w/ auto diff RDW % 11.4 16.1 12.10 FINAL [facility], [address] [facility] [address] [facility] [id number] 0 Phone: () - 05/28 CMP Alkal ine phosp hatas e U/L 46.0 116.0 45 Low FINAL Oziel angelo [place] [address] [place] [address] [id number] 0 Phone: () - 05/28 CMP ALT/S GPT U/L 7.0 40.0 26 FINAL Oziel angelo [place] [address] [place] [address] [id number] 0 Phone: () - 05/28 CMP AST/S GOT U/L 13.0 40.0 24 FINAL [facility] angel[facility] [place] [address] [address] [facility] [address] [id number] 0 Phone: () - 05/28 CMP BUN mg/dL 9.0 23.0 18 FINAL Oziel angelo [place] [address] [address] [facility] [address] [id number] 0 Phone: () - 05/28 CMP Calci um mg/dL 8.7 10.4 9.8 FINAL Oziel angelo [place] [address] [address] [facility] [address] [id number] 0 Phone: () - 05/28 CMP Chlor vipin mmol/L 96.0 114.0 108 FINAL Oziel angelo [place] [address] [address] [facility] [address] [id number] 0 Phone: () - 05/28 CMP CO2 [...] 96 hour stability window. FINAL Oziel angelo [place] [address] [id number] 0 Phone: () - 05/28 CMP Creat inine mg/dL 0.5 1.2 0.98 FINAL Oziel angelo [address] [id number] 0 Phone: () - 05/28 CMP GFR estim ate ml/min /1.73m ^2 61.2 GFR is calculate d using the CKD-EPI equation. FINAL Oziel angelo [address] [id number] 0 Phone: () - 05/28 CMP Gluco se mg/dL 73.0 126.0 111 FINAL Oziel angelo [address] [id number] Phone: () - 05/28 CMP Potas sium mmol/L 3.5 5.1 4.5 FINAL Oziel angelo [address] [id number] [phone] Phone: () - 05/28 CMP Sod[place] m mmol/L 136.0 145.0 144 FINAL Oziel angelo [address] [id number] [phone] Phone: () - 05/28 CMP Bilir ubin, total mg/dL 0.3 1.2 0.4 FINAL Oziel angelo [address] [id number] Phone: () - 05/28 CMP Total prote in g/dL 5.7 8.2 6.3 FINAL Oziel angelo [place] [address] [id number] [phone] Phone: () - 05/28 CMP Album in g/dL 3.2 5.2 4.2 FINAL Oziel angelo [address] [facility] [id number] Phone: () - 05/28 TSH w/ refle x to free T4 TSH uIU/ml 0.32 5.0 1.08 Test performed at [facility] on a JP3 Measurement 2000 Immunoass ay Analyzer that uses an immunoenz ymometric sandwich assay for analysis. Patient testing should not be performed using multiple methodolo ginaun due to analytica l variation seen between test methodolo ginaun. FINAL Oziel angelo On[facility] [address] [facility] [id number] [phone] Phone: () - 05/28 Speci men Sourc e Oral FINAL Oziel Box 05/28 HSV 1, PCR Negativ e FINAL Oziel Box 05/28 HSV 2, PCR Negativ e --------- --------- -ADDITION AL INFORMATI ON------- --------- ---This test was developed and its performan ce character isticsdet ermined by [facility] in a manner consisten t with CLIArsan jose medical centeri rements. This test has not been cleared or approved bythe U.S. Food and Drug Administr ation.Farrah t Performed by:[facility] [place] [id number] Director: Kenneth Alvarenga M.D. Ph.D.; CLIA# [id number] FINAL Oziel Box 05/30 [facility] other lab See attache hughes 07/02 CMP Album in g/dL 3.2 5.2 4.2 FINAL Oziel angelo [place] [address] [address] [place] [address] [id number] 0 Phone: () - 07/02 CMP Alkal ine phosp hatas e U/L 46.0 116.0 52 FINAL Oziel angelo [facility] [address] [facility] [id number] 0 Phone: () - 07/02 CMP ALT/S GPT U/L 7.0 40.0 18 FINAL Oziel angelo On[facility] [address] [facility] [id number] 0 Phone: () - 07/02 CMP AST/S GOT U/L 13.0 40.0 22 FINAL Oziel angelo [facility] [address] [id number] 0 Phone: () - 07/02 CMP BUN mg/dL 9.0 23.0 23 FINAL Oziel angelo [place] [address] [id number] 0 Phone: () - 07/02 CMP Calci um mg/dL 8.7 10.4 9.9 FINAL Oziel angelo [place] [address] [address] [facility] [address] [phone] 0 Phone: () - 07/02 CMP Chlor vipin mmol/L 96.0 114.0 110 FINAL Oziel angelo [place] [address] [id number] 0 Phone: () - 07/02 CMP CO2 [...] 96 hour stability window. FINAL Oziel angelo [place] [address] [id number] 0 Phone: () - 07/02 CMP Creat inine mg/dL 0.5 1.2 1.02 FINAL Oziel angelo [place] [address] [address] [facility] [address] [id number] 0 Phone: () - 07/02 CMP GFR estim ate ml/min /1.73m ^2 58.3 Low GFR is calculate d using the CKD-EPI equation. FINAL Oziel angelo [place] [address] [id number] 0 Phone: () - 07/02 CMP Gluco se mg/dL 73.0 126.0 72 Low FINAL Oziel angelo [place] [address] [address] [facility] [address] [facility] [id number] 0 Phone: () - 07/02 CMP Potas sium mmol/L 3.5 5.1 4.2 FINAL Oziel angelo Oncology [facility], [address] [facility] [id number] 0 Phone: () - 07/02 CMP Sodiu m mmol/L 136.0 145.0 145 FINAL Oziel angelo Oncology [facility], [address] [facility] [id number] 0 Phone: () - 07/02 CMP Bilir ubin, total mg/dL 0.3 1.2 0.5 FINAL Oziel angelo [facility] [place], [address] [facility] [address] [facility] [id number] 0 Phone: () - 07/02 CMP Total prote in g/dL 5.7 8.2 6.5 FINAL Oziel angelo [facility] [place], [address] [facility] [id number] 0 Phone: () - 07/02 CBC w/ auto diff WBC K/uL 3.0 8.9 5.0 FINAL Oziel angelo [facility] - [place], [address] [facility] [id number] 0 Phone: () - 07/02 CBC w/ auto diff HGB g/dL 11.3 15.2 12.6 FINAL Oziel angelo On[facility] - [place], [address] [facility] [id number] 0 Phone: () - 07/02 CBC w/ auto diff PLT K/uL 113.0 364.0 232 FINAL Oziel angelo [facility] - [place], [address] [facility] [place] [id number] 0 Phone: () - 07/02 CBC w/ auto diff Dave # (ANC) K/uL 1.6 6.6 3.2 FINAL Oziel angelo [facility] - [place], [address] [facility] [place] [phone] 0 Phone: () - 07/02 CBC w/ auto diff Dave % % 43.0 74.0 63.5 FINAL Oziel Tilleyot a [facility] - [place], [address] [place] [id number] 0 Phone: () - 07/02 CBC w/ auto diff IG % % 0.0 0.5 0.2 FINAL Oziel Tilleyot a [facility] - [place], [address] [place] [id number] 0 Phone: () - 07/02 CBC w/ auto diff IG # K/uL 0.0 0.03 0.01 FINAL Oziel Tilleyot a [facility] - [place], [address] [place] [id number] 0 Phone: () - 07/02 CBC w/ auto diff LY % % 14.0 41.0 24.1 FINAL Oziel Tilleyot a [facility] - [place], [address] [place] [id number] 0 Phone: () - 07/02 CBC w/ auto diff MO % % 6.0 15.0 9.4 FINAL Oziel Tilleyot a [facility] - [place], [address] [place] [id number] 0 Phone: () - 07/02 CBC w/ auto diff EO % % 0.0 7.0 2.2 FINAL Oziel Tilley[facility] a [facility] - [place], [address] [place] [id number] 0 Phone: () - 07/02 CBC w/ auto diff BA % % 0.0 2.0 0.6 FINAL Oziel Tilleyot a [facility] - [place], [address] [place] [id number] 0 Phone: () - 07/02 CBC w/ auto diff LY # K/uL 0.4 3.6 1.2 FINAL Oziel Tilleyot a [facility] - [place], [address] [place] [id number] 0 Phone: () - 07/02 CBC w/ auto diff MO # K/uL 0.2 1.3 0.5 FINAL Oziel Tilleyot a [facility] - [place], [address] [place] [id number] 0 Phone: () - 07/02 CBC w/ auto diff EO # K/uL 0.0 0.6 0.1 FINAL Oziel Tilleyot a [facility] - [place], [address] [place] [id number] 0 Phone: () - 07/02 CBC w/ auto diff BA # K/uL 0.0 0.2 0.0 FINAL Oziel Tilleyot a [facility] - [place], [address] [place] [id number] 0 Phone: () - 07/02 CBC w/ auto diff NRBC % #/100W BC 0.0 0.2 0.0 FINAL Oziel Tilleyot a [facility] - [place], [address] [place] [id number] 0 Phone: () - 07/02 CBC w/ auto diff RBC M/uL 3.9 5.1 3.86 Low FINAL Oziel Tilleyot gi [facility] - [place], [address] [place] [id number] 0 Phone: () - 07/02 CBC w/ auto diff HCT % 35.0 48.0 37.7 FINAL Oziel Tilleyot a [facility] - [place], [address] [place] [id number] 0 Phone: () - 07/02 CBC w/ auto diff MCV fL 80.0 104.0 97.7 FINAL Oziel Tilleyot a [facility] - [place], [address] [place] [id number] 0 Phone: () - 07/02 CBC w/ auto diff MCH pg 26.0 35.0 32.6 FINAL Oziel Tilleyot a [facility] - [place], [address] [place] [phone] 0 Phone: () - 07/02 CBC w/ auto diff MCHC g/dL 30.0 35.0 33.4 FINAL Oziel angelo On[facility] - [place], [address] [facility] [address] [facility] [place] [id number] 0 Phone: () - 07/02 CBC w/ auto diff MPV fL 9.5 13.4 9.0 Low FINAL Oziel angelo On[facility] - [place], [address] [facility] [address] [facility] [place] [id number] 0 Phone: () - 07/02 CBC w/ auto diff RDW % 11.4 16.1 13.10 FINAL Oziel angelo On[facility] - [place], [address] [facility] [address] [facility] [place] [id number] 0 Phone: () - 07/02 T4, free panel T4, free ng/dL 0.7 1.8 0.86 Test performed at [facility] on a JP3 Measurement 2000 Immunoass ay Analyzer that uses an immunoenz ymometric sandwich assay for analysis. Patient testing should not be performed using multiple methodolo gies due to analytica l variation seen between test methodolo gies. FINAL Oziel angelo Oncology [facility], [address] [facility] [address] [facility] [id number] 0 Phone: () - 07/02 TSH w/ refle x to free T4 TSH uIU/ml 0.32 5.0 6.12 High Test performed at [facility] on a Phone Warrior Immunoass ay Analyzer that uses an immunoenz ymometric sandwich assay for analysis. Patient testing should not be performed using multiple methodolo gies due to analytica l variation seen between test methodolo gies. FINAL Oziel angelo Oncology [facility], [address] [facility] [id number] 0 Phone: () - 07/30 CBC w/ auto diff WBC K/uL 3.0 8.9 6.0 FINAL Oziel angelo Oncology - [place], [address] [facility] [address] [facility] [place] [id number] 0 Phone: () - 07/30 CBC w/ auto diff HGB g/dL 11.3 15.2 11.2 Low FINAL Oziel Box [place] [facility] - [place], [address] [place] [id number] 0 Phone: () - 07/30 CBC w/ auto diff PLT K/uL 113.0 364.0 220 FINAL Ozile Tilleyot a [facility] - [place], [address] [place] [phone] 0 Phone: () - 07/30 CBC w/ auto diff Dave # (ANC) K/uL 1.6 6.6 5.0 FINAL Oziel Tilleyot a [facility] - [place], [address] [place] [id number] 0 Phone: () - 07/30 CBC w/ auto diff Dave % % 43.0 74.0 84.4 High FINAL Oziel Tilleyot a [facility] - [place], [address] [place] [id number] 0 Phone: () - 07/30 CBC w/ auto diff IG % % 0.0 0.5 0.2 FINAL Oziel Tilleyot a [facility] - [place], [address] [place] [id number] 0 Phone: () - 07/30 CBC w/ auto diff IG # K/uL 0.0 0.03 0.01 FINAL Oziel Tilleyot a [facility] - [place], [address] [place] [id number] 0 Phone: () - 07/30 CBC w/ auto diff LY % % 14.0 41.0 10.4 Low FINAL Oziel Tilley[facility] a [facility] - [place], [address] [place] [id number] 0 Phone: () - 07/30 CBC w/ auto diff MO % % 6.0 15.0 4.4 Low FINAL Oziel Tilleyot a [facility] - [place], [address] [place] [id number] 0 Phone: () - 07/30 CBC w/ auto diff EO % % 0.0 7.0 0.3 FINAL Oziel Tilleyot a [facility] - [place], [address] [place] [id number] 0 Phone: () - 07/30 CBC w/ auto diff BA % % 0.0 2.0 0.3 FINAL Oziel Tilley[facility] a [facility] - [place], [address] [place] [id number] 0 Phone: () - 07/30 CBC w/ auto diff LY # K/uL 0.4 3.6 0.6 FINAL Oziel Tilleyot a [facility] - [place], [address] [place] [id number] 0 Phone: () - 07/30 CBC w/ auto diff MO # K/uL 0.2 1.3 0.3 FINAL Oziel Tilleyot a [facility] - [place], [address] [place] [id number] 0 Phone: () - 07/30 CBC w/ auto diff EO # K/uL 0.0 0.6 0.0 FINAL Oziel Tilleyot a [facility] - [place], [address] [place] [id number] 0 Phone: () - 07/30 CBC w/ auto diff BA # K/uL 0.0 0.2 0.0 FINAL Oziel Tilleyot a [facility] - [place], [address] [place] [id number] 0 Phone: () - 07/30 CBC w/ auto diff NRBC % #/100W BC 0.0 0.2 0.0 FINAL Oziel Tilleyot a [facility] - [place], [address] [place] [id number] 0 Phone: () - 07/30 CBC w/ auto diff RBC M/uL 3.9 5.1 3.39 Low FINAL Oziel Tilleyot a [facility] - [place], [address] [place] [id number] 0 Phone: () - 07/30 CBC w/ auto diff HCT % 35.0 48.0 34.0 Low FINAL Oziel angelo [facility] - [place], [address] [place] [id number] 0 Phone: () - 07/30 CBC w/ auto diff MCV fL 80.0 104.0 100.3 FINAL Oziel angelo On[facility] - [place], [address] [place] [id number] 0 Phone: () - 07/30 CBC w/ auto diff MCH pg 26.0 35.0 33.0 FINAL Oziel angelo On[facility] - [place], [address] [place] [id number] 0 Phone: () - 07/30 CBC w/ auto diff MCHC g/dL 30.0 35.0 32.9 FINAL Oziel angelo [facility] - [place], [address] [place] [id number] 0 Phone: () - 07/30 CBC w/ auto diff MPV fL 9.5 13.4 9.0 Low FINAL Oziel angelo [facility] - [place], [address] [place] [id number] 0 Phone: () - 07/30 CBC w/ auto diff RDW % 11.4 16.1 14.60 FINAL Oziel angelo [facility] - [place], [address] [place] [id number] 0 Phone: () - 07/30 TSH w/ refle x to free T4 TSH uIU/ml 0.32 5.0 4.12 Test performed at [facility] on a JP3 Measurement 2000 Immunoass ay Analyzer that uses an immunoenz ymometric sandwich assay for analysis. Patient testing should not be performed using multiple methodolo ginaun due to analytica l variation seen between test methodolo ginaun. FINAL Oziel angelo [facility] - [place], [address] [place] [id number] 0 Phone: () - 07/30 CMP Album in g/dL 3.2 5.2 4.3 FINAL Oziel angelo [facility] [place], [address] [facility] [id number] 0 Phone: () - 07/30 CMP Alkal ine phosp hatas e U/L 46.0 116.0 66 FINAL Oziel angelo [facility] [place], [address] [facility] [address] [facility] [id number] 0 Phone: () - 07/30 CMP ALT/S GPT U/L 7.0 40.0 15 FINAL Oziel angelo [facility] [address] [facility] [address] [facility] [id number] 0 Phone: () - 07/30 CMP AST/S GOT U/L 13.0 40.0 22 FINAL Oziel angelo [facility] [address] [facility] [address] [facility] [id number] 0 Phone: () - 07/30 CMP BUN mg/dL 9.0 23.0 18 FINAL Oziel angelo [place] [address] [address] [facility] [address] [facility] [id number] 0 Phone: () - 07/30 CMP Calci um mg/dL 8.7 10.4 9.7 FINAL Oziel angelo [place] [address] [address] [facility] [facility] [address] [id number] 0 Phone: () - 07/30 CMP Chlor vipin mmol/L 96.0 114.0 110 FINAL Oziel angelo [facility] [address] [facility] [address] [id number] 0 Phone: () - 07/30 CMP CO2 [...] the 96 hour stability window. FINAL Oziel angleo [facility] [place], [address] [facility] [id number] 0 Phone: () - 07/30 CMP Creat inine mg/dL 0.5 1.2 0.94 FINAL Oziel angelo [facility] [address] [id number] 0 Phone: () - 07/30 CMP GFR estim ate ml/min /1.73m ^2 64.3 GFR is calculate d using the CKD-EPI equation. FINAL Oziel angelo [place] [address] [id number] 0 Phone: () - 07/30 CMP Gluco se mg/dL 73.0 126.0 108 FINAL Oziel angelo [facility] [address] [id number] 0 Phone: () - 07/30 CMP Potas sium mmol/L 3.5 5.1 4.6 FINAL Oziel angelo [facility] [address] [id number] 0 Phone: () - 07/30 CMP Sodiu m mmol/L 136.0 145.0 143 FINAL Oziel angelo [place] [address] [id number] 0 Phone: () - 07/30 CMP Bilir ubin, total mg/dL 0.3 1.2 0.3 FINAL Oziel angelo [place] [address] [id number] 0 Phone: () - 07/30 CMP Total prote in g/dL 5.7 8.2 6.4 FINAL Oziel angelo [place] [address] [id number] 0 Phone: () - 07/30 Hepat itis C antib taylor panel HCV Ab, S Negativ e Signal-to -cutoff ratio is <1.00.Farrah t Performed by:[facility] [place] [address] [id number] Director: Kenneth Alvarenga M.D. Ph.D.; CLIA# [id number] FINAL Oziel Box 08/27 TSH w/ refle x to free T4 TSH uIU/ml 0.32 5.0 6.32 High Test performed at [facility] on a Phone Warrior Immunoass ay Analyzer that uses an immunoenz ymometric sandwich assay for analysis. Patient testing should not be performed using multiple kathi amador due to analytica l variation seen between test methodharley amador. FINAL Oziel angelo On[facility] - [place], [address] [place] [id number] 0 Phone: () - 08/27 CBC w/ auto diff WBC K/uL 3.0 8.9 4.4 FINAL Oziel angelo On[facility] - [place], [address] [place] [id number] 0 Phone: () - 08/27 CBC w/ auto diff HGB g/dL 11.3 15.2 10.5 Low FINAL Oziel angelo [facility] - [place], [address] [place] [id number] 0 Phone: () - 08/27 CBC w/ auto diff PLT K/uL 113.0 364.0 226 FINAL Oziel angelo [facility] - [place], [address] [place] [id number] 0 Phone: () - 08/27 CBC w/ auto diff Dave # (ANC) K/uL 1.6 6.6 2.5 FINAL Oziel angelo [facility] - [place], [address] [place] [id number] 0 Phone: () - 08/27 CBC w/ auto diff Dave % % 43.0 74.0 56.5 FINAL Oziel angelo [facility] - [place], [address] [place] [id number] 0 Phone: () - 08/27 CBC w/ auto diff IG % % 0.0 0.5 0.2 FINAL Oziel angelo [facility] - [place], [address] [place] [id number] 0 Phone: () - 08/27 CBC w/ auto diff IG # K/uL 0.0 0.03 0.01 FINAL Oziel angelo [facility] - [place], [address] [place] [id number] 0 Phone: () - 08/27 CBC w/ auto diff LY % % 14.0 41.0 29.6 FINAL Oziel angelo [facility] - [place], [address] [place] [id number] 0 Phone: () - 08/27 CBC w/ auto diff MO % % 6.0 15.0 9.3 FINAL Oziel angelo [facility] - [place], [address] [place] [id number] 0 Phone: () - 08/27 CBC w/ auto diff EO % % 0.0 7.0 3.9 FINAL Oziel angelo [facility] - [place], [address] [place] [id number] 0 Phone: () - 08/27 CBC w/ auto diff BA % % 0.0 2.0 0.5 FINAL Oziel angelo [facility] - [place], [address] [place] [id number] 0 Phone: () - 08/27 CBC w/ auto diff LY # K/uL 0.4 3.6 1.3 FINAL Oziel angelo [facility] - [place], [address] [place] [id number] 0 Phone: () - 08/27 CBC w/ auto diff MO # K/uL 0.2 1.3 0.4 FINAL Oziel angelo [facility] - [place], [address] [place] [id number] 0 Phone: () - 08/27 CBC w/ auto diff EO # K/uL 0.0 0.6 0.2 FINAL Oziel angelo [facility] - [place], [address] [place] [id number] 0 Phone: () - 08/27 CBC w/ auto diff BA # K/uL 0.0 0.2 0.0 FINAL Oziel Tilley[facility] a [facility] - [place], [address] [place] [id number] 0 Phone: () - 08/27 CBC w/ auto diff NRBC % #/100W BC 0.0 0.2 0.0 FINAL Oziel Tillyeot a [facility] - [place], [address] [place] [id number] 0 Phone: () - 08/27 CBC w/ auto diff RBC M/uL 3.9 5.1 3.17 Low FINAL Oziel T[facility]ley[facility] a [facility] - [place], [address] [place] [id number] 0 Phone: () - 08/27 CBC w/ auto diff HCT % 35.0 48.0 32.0 Low FINAL Oziel T[facility]ley[facility] a [facility] - [place], [address] [place] [id number] 0 Phone: () - 08/27 CBC w/ auto diff MCV fL 80.0 104.0 100.9 FINAL Oziel [facility] a [facility] - [place], [address] [place] [id number] 0 Phone: () - 08/27 CBC w/ auto diff MCH pg 26.0 35.0 33.1 FINAL Oziel [facility] a [facility] - [place], [address] [place] [id number] 0 Phone: () - 08/27 CBC w/ auto diff MCHC g/dL 30.0 35.0 32.8 FINAL Oziel [facility] a [facility] - [place], [address] [place] [id number] 0 Phone: () - 08/27 CBC w/ auto diff MPV fL 9.5 13.4 9.1 Low FINAL Oziel T[facility] a [facility] - [place], [address] [place] [id number] 0 Phone: () - 08/27 CBC w/ auto diff RDW % 11.4 16.1 13.80 FINAL Oziel [facility] a [facility] - [place], [address] [facility] [place] [id number] 0 Phone: () - 08/27 CMP Album in g/dL 3.2 5.2 4.0 FINAL Oziel angelo [facility] [place], [address] [place] [address] [id number] 0 Phone: () - 08/27 CMP Alkal ine phosp hatas e U/L 46.0 116.0 71 FINAL Oziel angelo [facility] [address] [place] [address] [id number] 0 Phone: () - 08/27 CMP ALT/S GPT U/L 7.0 40.0 11 FINAL Oziel angelo [place] [address] [address] [facility] [address] [id number] 0 Phone: () - 08/27 CMP AST/S GOT U/L 13.0 40.0 18 FINAL Oziel angelo [place] [address] [address] [facility] [address] [id number] 0 Phone: () - 08/27 CMP BUN mg/dL 9.0 23.0 16 FINAL Oziel angelo [facility] [address] [facility] [address] [id number] 0 Phone: () - 08/27 CMP Calci um mg/dL 8.7 10.4 9.5 FINAL Oziel angelo [facility] [address] [facility] [address] [id number] 0 Phone: () - 08/27 CMP Chlor vipin mmol/L 96.0 114.0 110 FINAL Oziel angelo [facility] [place], [address] [facility] [address] [id number] 0 Phone: () - 08/27 CMP CO2 [...] 96 hour stability window. FINAL Oziel angelo [facility] [place] [id number] 0 Phone: () - 08/27 CMP Creat inine mg/dL 0.5 1.2 0.84 FINAL Oziel angelo [address] [id number] 0 Phone: () - 08/27 CMP GFR estim ate ml/min /1.73m ^2 73.5 GFR is calculate d using the CKD-EPI equation. FINAL Oziel angelo [address] [id number] 0 Phone: () - 08/27 CMP Gluco se mg/dL 73.0 126.0 84 FINAL Oziel angelo [address] [id number] 0 Phone: () - 08/27 CMP Potas sium mmol/L 3.5 5.1 4.4 FINAL Oziel angelo [address] [id number] 0 Phone: () - 08/27 CMP Sodiu m mmol/L 136.0 145.0 142 FINAL Oziel angelo [address] [id number] 0 Phone: () - 08/27 CMP Bilir ubin, total mg/dL 0.3 1.2 0.3 FINAL Oziel angelo [address] [id number] 0 Phone: () - 08/27 CMP Total prote in g/dL 5.7 8.2 6.1 FINAL Oziel angelo [address] [id number] 0 Phone: () - 08/27 T4, free panel T4, free ng/dL 0.7 1.8 0.69 Low Test performed at [facility] on a Phone Warrior Immunoass ay Analyzer that uses an immunoenz ymometric sandwich assay for analysis. Patient testing should not be performed using multiple methodharley amador due to analytica l variation seen between test methodharley amador. FINAL Oziel angelo [place] [address] [place] [id number] 0 Phone: () - 09/26 TSH w/ refle x to free T4 TSH uIU/ml 0.32 5.0 1.33 Test performed at [facility] on a JP3 Measurement 2000 Immunoass ay Analyzer that uses an immunoenz ymometric sandwich assay for analysis. Patient testing should not be performed using multiple methodolo gies due to analytica l variation seen between test methodolo gies. FINAL Oziel angelo [address] [id number] 0 Phone: () - 09/26 CMP Album in g/dL 3.2 5.2 4.3 FINAL Oziel Tolbert [address] [id number] 0 Phone: () - 09/26 CMP Alkal ine phosp hatas e U/L 46.0 116.0 65 FINAL Oziel angelo [address] [id number] 0 Phone: () - 09/26 CMP ALT/S GPT U/L 7.0 40.0 8 FINAL Oziel angelo [place] [address] [id number] 0 Phone: () - 09/26 CMP AST/S GOT U/L 13.0 40.0 17 FINAL Oziel angelo [place] [address] [id number] 0 Phone: () - 09/26 CMP BUN mg/dL 9.0 23.0 21 FINAL Oziel angelo [place] [address] [address] [facility] [address] [id number] 0 Phone: () - 09/26 CMP Calci um mg/dL 8.7 10.4 9.2 FINAL Oziel angelo [place] [address] [id number] 0 Phone: () - 09/26 CMP Chlor vipin mmol/L 96.0 114.0 111 FINAL Oziel angelo [place] [address] [address] [facility] [address] [id number] 0 Phone: () - 09/26 CMP CO2 [...] 96 hour stability window. FINAL Oziel angelo [facility] [place], [address] [id number] 0 Phone: () - 09/26 CMP Creat inine mg/dL 0.5 1.2 0.79 FINAL Oziel angelo [place] [address] [id number] 0 Phone: () - 09/26 CMP GFR estim ate ml/min /1.73m ^2 79.1 GFR is calculate d using the CKD-EPI equation. FINAL Oziel angelo [place] [address] [id number] 0 Phone: () - 09/26 CMP Gluco se mg/dL 73.0 126.0 83 FINAL Oziel angelo [place] [address] [id number] 0 Phone: () - 09/26 CMP Potas sium mmol/L 3.5 5.1 4.4 FINAL Oziel angelo [place] [address] [id number] 0 Phone: () - 09/26 CMP Sodiu m mmol/L 136.0 145.0 143 FINAL Oziel angelo [facility] [address] [facility] [address] [phone] 0 Phone: () - 09/26 CMP Bilir ubin, total mg/dL 0.3 1.2 0.3 FINAL Oziel angelo [facility] [address] [id number] 0 Phone: () - 09/26 CMP Total prote in g/dL 5.7 8.2 6.3 FINAL Oziel angelo [facility] - [place], [address] [place] [phone] 0 Phone: () - 09/26 CBC w/ auto diff WBC K/uL 3.0 8.9 4.1 FINAL Oziel angelo [facility] - [place], [address] [place] [id number] 0 Phone: () - 09/26 CBC w/ auto diff HGB g/dL 11.3 15.2 11.3 FINAL Oziel angelo [facility] - [place], [address] [place] [id number] 0 Phone: () - 09/26 CBC w/ auto diff PLT K/uL 113.0 364.0 210 FINAL Oziel angelo [facility] - [place], [address] [place] [phone] 0 Phone: () - 09/26 CBC w/ auto diff Dave # (ANC) K/uL 1.6 6.6 2.4 FINAL Oziel angelo [facility] - [place], [address] [place] [phone] 0 Phone: () - 09/26 CBC w/ auto diff Dave % % 43.0 74.0 58.2 FINAL Oziel angelo [facility] - [place], [address] [place] [id number] 0 Phone: () - 09/26 CBC w/ auto diff IG % % 0.0 0.5 0.2 FINAL Oziel angelo [facility] - [place], [address] [place] [id number] 0 Phone: () - 09/26 CBC w/ auto diff IG # K/uL 0.0 0.03 0.01 FINAL Oziel angelo [facility] - [place], [address] [place] [id number] 0 Phone: () - 09/26 CBC w/ auto diff LY % % 14.0 41.0 27.0 FINAL Oziel Tolbert a [facility] - [place], [address] [place] [id number] 0 Phone: () - 09/26 CBC w/ auto diff MO % % 6.0 15.0 10.5 FINAL Oziel Tilleyot a [facility] - [place], [address] [place] [id number] 0 Phone: () - 09/26 CBC w/ auto diff EO % % 0.0 7.0 3.6 FINAL Oziel Tilleyot a [facility] - [place], [address] [place] [id number] 0 Phone: () - 09/26 CBC w/ auto diff BA % % 0.0 2.0 0.5 FINAL Oziel Tilleyot a [facility] - [place], [address] [place] [id number] 0 Phone: () - 09/26 CBC w/ auto diff LY # K/uL 0.4 3.6 1.1 FINAL Oziel Tilleyot a [facility] - [place], [address] [place] [id number] 0 Phone: () - 09/26 CBC w/ auto diff MO # K/uL 0.2 1.3 0.4 FINAL Oziel Tilleyot a [facility] - [place], [address] [place] [id number] 0 Phone: () - 09/26 CBC w/ auto diff EO # K/uL 0.0 0.6 0.2 FINAL Oziel Tilleyot a [facility] - [place], [address] [place] [id number] 0 Phone: () - 09/26 CBC w/ auto diff BA # K/uL 0.0 0.2 0.0 FINAL Oziel Tilleyot a [facility] - [place], [address] [place] [id number] 0 Phone: () - 09/26 CBC w/ auto diff NRBC % #/100W BC 0.0 0.2 0.0 FINAL Oziel [place] a [facility] - [place], [address] [place] [id number] 0 Phone: () - 09/26 CBC w/ auto diff RBC M/uL 3.9 5.1 3.38 Low FINAL Ozeil Tolbert a On[facility] - [place], [address] [place] [id number] 0 Phone: () - 09/26 CBC w/ auto diff HCT % 35.0 48.0 34.3 Low FINAL Oziel Tolbert a [facility] - [place], [address] [place] [id number] 0 Phone: () - 09/26 CBC w/ auto diff MCV fL 80.0 104.0 101.5 FINAL Oziel angelo [facility] - [place], [address] [place] [id number] 0 Phone: () - 09/26 CBC w/ auto diff MCH pg 26.0 35.0 33.4 FINAL Oziel angelo [facility] - [place], [address] [place] [id number] 0 Phone: () - 09/26 CBC w/ auto diff MCHC g/dL 30.0 35.0 32.9 FINAL Oziel angelo [facility] - [place], [address] [place] [id number] 0 Phone: () - 09/26 CBC w/ auto diff MPV fL 9.5 13.4 8.9 Low FINAL Oziel angelo [facility] - [place], [address] [place] [id number] 0 Phone: () - 09/26 CBC w/ auto diff RDW % 11.4 16.1 12.60 FINAL Oziel Tolbert a [facility] - [place], [address] [place] [id number] 0 Phone: () - 10/24 T4, free panel T4, free ng/dL 0.7 1.8 1.62 Test performed at [facility] on a JP3 Measurement 2000 Immunoass ay Analyzer that uses an immunoenz ymometric sandwich assay for analysis. Patient testing should not be performed using multiple kathi amador due to analytica l variation seen between test kathi amador. FINAL [place] [address] [id number] 0 Phone: () - 10/24 CMP Album in g/dL 3.2 5.2 4.3 FINAL [place] [address] [id number] 0 Phone: () - 10/24 CMP Alkal ine phosp hatas e U/L 46.0 116.0 [address] [id number] 0 Phone: () - 10/24 CMP ALT/S GPT U/L 7.0 40.0 12 FINAL [place] [address] [id number] 0 Phone: () - 10/24 CMP AST/S GOT U/L 13.0 40.0 22 FINAL [place] [address] [id number] 0 Phone: () - 10/24 CMP BUN mg/dL 9.0 23.0 16 FINAL [place] [address] [id number] 0 Phone: () - 10/24 CMP Calci um mg/dL 8.7 10.4 9.7 FINAL [place] [address] [id number] 0 Phone: () - 10/24 CMP Chlor vipin mmol/L 96.0 114.0 110 FINAL [place] [address] [id number] 0 Phone: () - 10/24 CMP CO2 [...] 96 hour stability window. FINAL Lia Delgado [place] [address] [id number] 0 Phone: () - 10/24 CMP Creat inine mg/dL 0.5 1.2 0.83 FINAL Lia [address] [id number] 0 Phone: () - 10/24 CMP GFR estim ate ml/min /1.73m ^2 74.5 GFR is calculate d using the CKD-EPI equation. FINAL [address] [id number] 0 Phone: () - 10/24 CMP Gluco se mg/dL 73.0 126.0 [address] [id number] 0 Phone: () - 10/24 CMP Potas sium mmol/L 3.5 5.1 4.[address] [id number] 0 Phone: () - 10/24 CMP Sodiu m mmol/L 136.0 145.0 [address] [id number] 0 Phone: () - 10/24 CMP Bilir ubin, total mg/dL 0.3 1.2 0.[address] [id number] 0 Phone: () - 10/24 CMP Total prote in g/dL 5.7 8.2 6.4 FINAL [place] [address] [id number] 0 Phone: () - 10/24 TSH w/ refle x to free T4 TSH uIU/ml 0.32 5.0 0.05 Low Test performed at [facility] on a JP3 Measurement 2000 Immunoass ay Analyzer that uses an immunoenz ymometric sandwich assay for analysis. Patient testing should not be performed using multiple kathi amador due to analytica l variation seen between test kathi amador. FINAL Lia Tilley a [facility] - [place], [address] [place] [id number] 0 Phone: () - 10/24 CBC w/ auto diff WBC K/uL 3.0 8.9 5.5 FINAL Lia Delgado [facility] a On[facility] - [place], [address] [place] [id number] 0 Phone: () - 10/24 CBC w/ auto diff HGB g/dL 11.3 15.2 12.0 FINAL Lia Tilley a On[facility] - [place], [address] [place] [id number] 0 Phone: () - 10/24 CBC w/ auto diff PLT K/uL 113.0 364.0 211 FINAL Lia Tilley a [facility] - [place], [address] [place] [id number] 0 Phone: () - 10/24 CBC w/ auto diff Dave # (ANC) K/uL 1.6 6.6 3.4 FINAL [facility] [place], [address] [place] [id number] 0 Phone: () - 10/24 CBC w/ auto diff Dave % % 43.0 74.0 62.4 FINAL Lia Delgado [facility] a Oncology - [place], [address] [place] [id number] 0 Phone: () - 10/24 CBC w/ auto diff IG % % 0.0 0.5 1.1 High FINAL Lia Delgado [facility] a Oncology - [place], [address] [place] [id number] 0 Phone: () - 10/24 CBC w/ auto diff IG # K/uL 0.0 0.03 0.06 High FINAL Lia Tilleyot a On[facility] - [place], [address] [place] [id number] 0 Phone: () - 10/24 CBC w/ auto diff LY % % 14.0 41.0 22.2 FINAL Lia Tilleyot a [facility] - [place], [address] [place] [id number] 0 Phone: () - 10/24 CBC w/ auto diff MO % % 6.0 15.0 10.1 FINAL Lia Tilleyot a [facility] - [place], [address] [place] [id number] 0 Phone: () - 10/24 CBC w/ auto diff EO % % 0.0 7.0 3.8 FINAL Lia Tilleyot a [facility] - [place], [address] [place] [id number] 0 Phone: () - 10/24 CBC w/ auto diff BA % % 0.0 2.0 0.4 FINAL Lia Tilleyot a [facility] - [place], [address] [place] [id number] 0 Phone: () - 10/24 CBC w/ auto diff LY # K/uL 0.4 3.6 1.2 FINAL Lia Tilleyot a [facility] - [place], [address] [place] [id number] 0 Phone: () - 10/24 CBC w/ auto diff MO # K/uL 0.2 1.3 0.6 FINAL Lia Tilleyot a [facility] - [place], [address] [place] [id number] 0 Phone: () - 10/24 CBC w/ auto diff EO # K/uL 0.0 0.6 0.2 FINAL Lia Tilleyot a [facility] - [place], [address] [place] [id number] 0 Phone: () - 10/24 CBC w/ auto diff BA # K/uL 0.0 0.2 0.0 FINAL Lia Tilleyot a [facility] - [place], [address] [place] [id number] 0 Phone: () - 10/24 CBC w/ auto diff NRBC % #/100W BC 0.0 0.2 0.0 FINAL Lia Tilleyot gi On[facility] - [place], [address] [place] [id number] 0 Phone: () - 10/24 CBC w/ auto diff RBC M/uL 3.9 5.1 3.62 Low FINAL Lia Tolbert a On[facility] - [place], [address] [facility] [address] [place] [id number] 0 Phone: () - 10/24 CBC w/ auto diff HCT % 35.0 48.0 35.7 FINAL Lia angelo On[facility] - [place], [address] [facility] [address] [place] [id number] 0 Phone: () - 10/24 CBC w/ auto diff MCV fL 80.0 104.0 98.6 FINAL Lia angelo [facility] - [place], [address] [facility] [address] [place] [id number] 0 Phone: () - 10/24 CBC w/ auto diff MCH pg 26.0 35.0 33.1 FINAL Lia Tolbert a Oncology - [place], [address] [place] [id number] 0 Phone: () - 10/24 CBC w/ auto diff MCHC g/dL 30.0 35.0 33.6 FINAL Lia Tilleyot a On[facility] - [place], [address] [place] [id number] 0 Phone: () - 10/24 CBC w/ auto diff MPV fL 9.5 13.4 9.1 Low FINAL Lia Tilleyot a On[facility] - [place], [address] [place] [id number] 0 Phone: () - 10/24 CBC w/ auto diff RDW % 11.4 16.1 12.20 FINAL Lia angelo [facility] - [place], [address] [place] [id number] 0 Phone: () - 11/21 TSH w/ refle x to free T4 TSH uIU/ml 0.32 5.0 0.16 Low Test performed at [facility] on a Phone Warrior Immunoass ay Analyzer that uses an immunoenz ymometric sandwich assay for analysis. Patient testing should not be performed using multiple methodolo marjorie due to analytica l variation seen between test methodharley amador. FINAL Lia angelo [facility] - [place], [address] [facility] [address] [place] [id number] 0 Phone: () - 11/21 CBC w/ auto diff WBC K/uL 3.0 8.9 4.1 FINAL Lia angelo [facility] - [place], [address] [facility] [address] [place] [id number] 0 Phone: () - 11/21 CBC w/ auto diff HGB g/dL 11.3 15.2 11.8 FINAL Lia angelo [facility] - [place], [address] [facility] [address] [place] [id number] 0 Phone: () - 11/21 CBC w/ auto diff PLT K/uL 113.0 364.0 223 FINAL Lia angelo [facility] - [place], [address] [facility] [address] [place] [id number] 0 Phone: () - 11/21 CBC w/ auto diff Dave # (ANC) K/uL 1.6 6.6 2.3 FINAL Lia angelo [facility] - [place], [address] [place] [id number] 0 Phone: () - 11/21 CBC w/ auto diff Dave % % 43.0 74.0 56.3 FINAL Lia angelo On[facility] - [place], [address] [place] [id number] 0 Phone: () - 11/21 CBC w/ auto diff IG % % 0.0 0.5 0.2 FINAL Lia angelo On[facility] - [place], [address] [facility] [address] [place] [id number] 0 Phone: () - 11/21 CBC w/ auto diff IG # K/uL 0.0 0.03 0.01 FINAL Lia angelo [facility] - [place], [address] [facility] [address] [place] [id number] 0 Phone: () - 11/21 CBC w/ auto diff LY % % 14.0 41.0 29.0 FINAL Lia angelo [facility] - [place], [address] [facility] [address] [place] [id number] 0 Phone: () - 11/21 CBC w/ auto diff MO % % 6.0 15.0 10.4 FINAL Lia angelo [facility] - [place], [address] [facility] [address] [place] [id number] 0 Phone: () - 11/21 CBC w/ auto diff EO % % 0.0 7.0 3.9 FINAL Lia angelo On[facility] - [place], [address] [facility] [address] [place] [id number] 0 Phone: () - 11/21 CBC w/ auto diff BA % % 0.0 2.0 0.2 FINAL Lia angelo [facility] - [place], [address] [facility] [address] [place] [id number] 0 Phone: () - 11/21 CBC w/ auto diff LY # K/uL 0.4 3.6 1.2 FINAL Lia Tolbert a On[facility] - [place], [address] [facility] [address] [place] [id number] 0 Phone: () - 11/21 CBC w/ auto diff MO # K/uL 0.2 1.3 0.4 FINAL Lia Tolbert a On[facility] - [place], [address] [place] [id number] 0 Phone: () - 11/21 CBC w/ auto diff EO # K/uL 0.0 0.6 0.2 FINAL Lia Tolbert a On[facility] - [place], [address] [place] [id number] 0 Phone: () - 11/21 CBC w/ auto diff BA # K/uL 0.0 0.2 0.0 FINAL Lia Tolbert a On[facility] - [place], [address] [place] [id number] 0 Phone: () - 11/21 CBC w/ auto diff NRBC % #/100W BC 0.0 0.2 0.0 FINAL Lia Tolbert a On[facility] - [place], [address] [place] [id number] 0 Phone: () - 11/21 CBC w/ auto diff RBC M/uL 3.9 5.1 3.69 Low FINAL Lia Tolbert a On[facility] - [place], [address] [place] [id number] 0 Phone: () - 11/21 CBC w/ auto diff HCT % 35.0 48.0 35.6 FINAL Lia Tolbert a Oncology - [place], [address] [place] [id number] 0 Phone: () - 11/21 CBC w/ auto diff MCV fL 80.0 104.0 96.5 FINAL Lia Tolbert a On[facility] - [place], [address] [place] [id number] 0 Phone: () - 11/21 CBC w/ auto diff MCH pg 26.0 35.0 32.0 FINAL Lia Tolbert a On[facility] - [place], [address] [place] [id number] 0 Phone: () - 11/21 CBC w/ auto diff MCHC g/dL 30.0 35.0 33.1 FINAL Lia angelo [facility] - [place], [address] [facility] [address] [facility] [place] [id number] 0 Phone: () - 11/21 CBC w/ auto diff MPV fL 9.5 13.4 9.0 Low FINAL Lia angelo [facility] - [place], [address] [address] [facility] [place] [id number] 0 Phone: () - 11/21 CBC w/ auto diff RDW % 11.4 16.1 12.40 FINAL Lia angelo [facility] - [place], [address] [facility] [address] [facility] [place] [id number] 0 Phone: () - 11/21 T4, free panel T4, free ng/dL 0.7 1.8 1.13 Test performed at [facility] on a Phone Warrior Immunoass ay Analyzer that uses an immunoenz ymometric sandwich assay for analysis. Patient testing should not be performed using multiple methodharley amador due to analytica l variation seen between test methodharley amador. FINAL [facility] [address] [facility] [address] [place] [address] [id number] 0 Phone: () - 11/21 CMP Album in g/dL 3.2 5.2 4.1 FINAL [facility], [address] [place] [address] [place] [id number] 0 Phone: () - 11/21 CMP Alkal ine phosp hatas e U/L 46.0 116.0 52 FINAL Lia [facility], [facility] [address] [place] [address] [id number] 0 Phone: () - 11/21 CMP ALT/S GPT U/L 7.0 40.0 17 FINAL [facility] [address] [facility] [address] [place] [address] [id number] 0 Phone: () - 11/21 CMP AST/S GOT U/L 13.0 40.0 24 FINAL [facility], [address] [place] [address] [id number] 0 Phone: () - 11/21 CMP BUN mg/dL 9.0 23.0 14 FINAL Lia [facility] [address] [facility] 100 [facility] [id number] 0 Phone: () - 11/21 CMP Calci um mg/dL 8.7 10.4 9.3 FINAL Lia [facility] [address] [facility] 100 [facility] [id number] 0 Phone: () - 11/21 CMP Chlor vipin mmol/L 96.0 114.0 111 [place] [address] [address] [facility] 100 [facility] [id number] 0 Phone: () - 11/21 CMP CO2 [...] of the 96 hour stability window. FINAL [place] [address] [id number] 0 Phone: () - 11/21 CMP Creat inine mg/dL 0.5 1.2 0.79 [place] [address] [id number] 0 Phone: () - 11/21 CMP GFR estim ate ml/min /1.73m ^2 79.1 GFR is calculate d using the CKD-EPI equation. FINAL [facility], [facility] [address] [facility] [address] [id number] 0 Phone: () - 11/21 CMP Gluco se mg/dL 73.0 126.0 86 [place] [address] [address] [facility] [address] [id number] 0 Phone: () - 11/21 CMP Potas sium mmol/L 3.5 5.1 4.5 [place] [address] [address] [facility] [address] [id number] 0 Phone: () - 11/21 CMP Sodiu m mmol/L 136.0 145.0 144 FINAL Lia Tilley gi On[facility], [address] [facility] [id number] 0 Phone: () - 11/21 CMP Bilir ubin, total mg/dL 0.3 1.2 0.3 FINAL Lia Tilley gi Oncology [facility], [address] [facility] [id number] 0 Phone: () - 11/21 CMP Total prote in g/dL 5.7 8.2 6.2 FINAL Lia Tilley gi [facility] [place], [address] [facility] [id number] 0 Phone: () - 12/19 CBC w/ auto diff WBC K/uL 3.0 8.9 4.9 FINAL Oziel angelo [facility] - [place], [address] [facility] [id number] 0 Phone: () - 12/19 CBC w/ auto diff HGB g/dL 11.3 15.2 11.8 FINAL Oziel Tilleyot a On[facility] - [place], [address] [place] [id number] 0 Phone: () - 12/19 CBC w/ auto diff PLT K/uL 113.0 364.0 218 FINAL Oziel angelo [facility] - [place], [address] [place] [id number] 0 Phone: () - 12/19 CBC w/ auto diff Dave # (ANC) K/uL 1.6 6.6 2.7 FINAL Oziel Tilleyot a On[facility] - [place], [address] [place] [id number] 0 Phone: () - 12/19 CBC w/ auto diff Dave % % 43.0 74.0 55.3 FINAL Oziel Tilleyot a [facility] - [place], [address] [place] [id number] 0 Phone: () - 12/19 CBC w/ auto diff IG % % 0.0 0.5 0.2 FINAL Oziel Tilleyot a On[facility] - [place], [address] [place] [id number] 0 Phone: () - 12/19 CBC w/ auto diff IG # K/uL 0.0 0.03 0.01 FINAL Oziel Tilleyot a [facility] - [place], [address] [place] [id number] 0 Phone: () - 12/19 CBC w/ auto diff LY % % 14.0 41.0 30.6 FINAL Oziel Tilleyot a [facility] - [place], [address] [place] [id number] 0 Phone: () - 12/19 CBC w/ auto diff MO % % 6.0 15.0 9.3 FINAL Oziel Tilleyot a [facility] - [place], [address] [place] [id number] 0 Phone: () - 12/19 CBC w/ auto diff EO % % 0.0 7.0 4.0 FINAL Oziel Tilleyot a [facility] - [place], [address] [place] [id number] 0 Phone: () - 12/19 CBC w/ auto diff BA % % 0.0 2.0 0.6 FINAL Oziel Tilleyot a [facility] - [place], [address] [place] [id number] 0 Phone: () - 12/19 CBC w/ auto diff LY # K/uL 0.4 3.6 1.5 FINAL Oziel Tilleyot a [facility] - [place], [address] [place] [id number] 0 Phone: () - 12/19 CBC w/ auto diff MO # K/uL 0.2 1.3 0.5 FINAL Oziel Tilleyot a [facility] - [place], [address] [place] [id number] 0 Phone: () - 12/19 CBC w/ auto diff EO # K/uL 0.0 0.6 0.2 FINAL Oziel Tilleyot a [facility] - [place], [address] [place] [id number] 0 Phone: () - 12/19 CBC w/ auto diff BA # K/uL 0.0 0.2 0.0 FINAL Oziel Tilleyot a [facility] - [place], [address] [place] [id number] 0 Phone: () - 12/19 CBC w/ auto diff NRBC % #/100W BC 0.0 0.2 0.0 FINAL Oziel Tilleyot gi [facility] - [place], [address] [place] [id number] 0 Phone: () - 12/19 CBC w/ auto diff RBC M/uL 3.9 5.1 3.68 Low FINAL Oziel Tilleyot gi [facility] - [place], [address] [place] [id number] 0 Phone: () - 12/19 CBC w/ auto diff HCT % 35.0 48.0 35.3 FINAL Oziel angelo [facility] - [place], [address] [place] [id number] 0 Phone: () - 12/19 CBC w/ auto diff MCV fL 80.0 104.0 95.9 FINAL Oziel angelo [facility] - [place], [address] [place] [id number] 0 Phone: () - 12/19 CBC w/ auto diff MCH pg 26.0 35.0 32.1 FINAL Oziel Tilleyot gi [facility] - [place], [address] [place] [id number] 0 Phone: () - 12/19 CBC w/ auto diff MCHC g/dL 30.0 35.0 33.4 FINAL Oziel Tilleyot a [facility] - [place], [address] [place] [id number] 0 Phone: () - 12/19 CBC w/ auto diff MPV fL 9.5 13.4 9.1 Low FINAL Oziel angelo [facility], [address] [facility] [address] [facility] [id number] 0 Phone: () - 12/19 CBC w/ auto diff RDW % 11.4 16.1 13.30 FINAL Oziel angelo On[facility] - [facility], [address] [facility] [address] [facility] [id number] 0 Phone: () - 12/19 TSH w/ refle x to free T4 TSH uIU/ml 0.32 5.0 2.75 Test performed at [facility] on a Phone Warrior Immunoass ay Analyzer that uses an immunoenz ymometric sandwich assay for analysis. Patient testing should not be performed using multiple methodolo gies due to analytica l variation seen between test methodolo gies. FINAL Oziel angelo [place] [address] [address] [facility] [address] [place] [address] [id number] 0 Phone: () - 12/19 CMP Album in g/dL 3.2 5.2 4.0 FINAL Oziel angelo [place] [address] [address] [facility] [address] [id number] 0 Phone: () - 12/19 CMP Alkal ine phosp hatas e U/L 46.0 116.0 58 FINAL Oziel angelo [place] [address] [address] [facility] [address] [id number] 0 Phone: () - 12/19 CMP ALT/S GPT U/L 7.0 40.0 13 FINAL Oziel angelo [place] [address] [place] [address] [id number] 0 Phone: () - 12/19 CMP AST/S GOT U/L 13.0 40.0 24 FINAL Oziel angelo [place] [address] [place] [address] [id number] 0 Phone: () - 12/19 CMP BUN mg/dL 9.0 23.0 18 FINAL Oziel angelo [place] [address] [place] [address] [id number] 0 Phone: () - 12/19 CMP Calci um mg/dL 8.7 10.4 9.7 FINAL Oziel angelo [place] [address] [id number] 0 Phone: () - 12/19 CMP Chlor vipin mmol/L 96.0 114.0 111 FINAL Oziel angelo [place] [address] [id number] 0 Phone: () - 12/19 CMP CO2 [...] 96 hour stability window. FINAL Oziel angelo [place] [address] [phone] Phone: () - 12/19 CMP Creat inine mg/dL 0.5 1.2 0.82 FINAL Oziel angelo [place] [address] [phone] Phone: () - 12/19 CMP GFR estim ate ml/min /1.73m ^2 75.6 GFR is calculate d using the CKD-EPI equation. FINAL Oziel angelo [place] [address] [phone] 0 Phone: () - 12/19 CMP Gluco se mg/dL 73.0 126.0 81 FINAL Oziel angel[place] [address] [address] [facility] [address] [phone] Phone: () - 12/19 CMP Potas sium mmol/L 3.5 5.1 4.4 FINAL Oziel angelo [facility] [address] [facility] [address] [phone] 0 Phone: () - 12/19 CMP Sodiu m mmol/L 136.0 145.0 144 FINAL Oziel angelo [place] [address] [id number] 0 Phone: () - 12/19 CMP Bilir ubin, total mg/dL 0.3 1.2 0.4 FINAL Oziel angelo [facility] - [place], [address] [facility] [address] [place] [id number] 0 Phone: () - 12/19 CMP Total prote in g/dL 5.7 8.2 6.3 FINAL Oziel angelo [facility] - [place], [address] [facility] [address] [place] [id number] 0 Phone: () - 01/12 [facility] other lab See chief controller d 01/16 CBC w/ auto diff WBC K/uL 3.0 8.9 4.4 FINAL Oziel angelo [facility] - [place], [address] [facility] [address] [place] [phone] 0 Phone: () - 01/16 CBC w/ auto diff HGB g/dL 11.3 15.2 11.9 FINAL Oziel angelo [facility] - [place], [address] [facility] [address] [place] [id number] 0 Phone: () - 01/16 CBC w/ auto diff PLT K/uL 113.0 364.0 231 FINAL Oziel angelo [facility] - [place], [address] [facility] [address] [place] [phone] 0 Phone: () - 01/16 CBC w/ auto diff Dave # (ANC) K/uL 1.6 6.6 2.4 FINAL Oziel angelo [facility] - [place], [address] [place] [id number] 0 Phone: () - 01/16 CBC w/ auto diff Dave % % 43.0 74.0 54.7 FINAL Oziel angelo [facility] - [place], [address] [place] [id number] 0 Phone: () - 01/16 CBC w/ auto diff IG % % 0.0 0.5 0.2 FINAL Oziel angelo [facility] - [place], [address] [place] [phone] 0 Phone: () - 01/16 CBC w/ auto diff IG # K/uL 0.0 0.03 0.01 FINAL Oziel Tilleyot a [facility] - [place], [address] [place] [id number] 0 Phone: () - 01/16 CBC w/ auto diff LY % % 14.0 41.0 31.8 FINAL Oziel Tilleyot a [facility] - [place], [address] [place] [id number] 0 Phone: () - 01/16 CBC w/ auto diff MO % % 6.0 15.0 8.9 FINAL Oziel Tilleyot a [facility] - [place], [address] [place] [id number] 0 Phone: () - 01/16 CBC w/ auto diff EO % % 0.0 7.0 3.9 FINAL Oziel Tilleyot a [facility] - [place], [address] [place] [phone] 0 Phone: () - 01/16 CBC w/ auto diff BA % % 0.0 2.0 0.5 FINAL Oziel Tilleyot a [facility] - [place], [address] [place] [id number] 0 Phone: () - 01/16 CBC w/ auto diff LY # K/uL 0.4 3.6 1.4 FINAL Oziel Tilleyot a [facility] - [place], [address] [place] [id number] 0 Phone: () - 01/16 CBC w/ auto diff MO # K/uL 0.2 1.3 0.4 FINAL Oziel Tilleyot a [facility] - [place], [address] [place] [id number] 0 Phone: () - 01/16 CBC w/ auto diff EO # K/uL 0.0 0.6 0.2 FINAL Oziel Tilleyot a [facility] - [place], [address] [place] [id number] 0 Phone: () - 01/16 CBC w/ auto diff BA # K/uL 0.0 0.2 0.0 FINAL Oziel Tilleyot a [facility] - [place], [address] [place] [id number] 0 Phone: () - 01/16 CBC w/ auto diff NRBC % #/100W BC 0.0 0.2 0.0 FINAL Oziel Tilleyot a [facility] - [place], [address] [place] [id number] 0 Phone: () - 01/16 CBC w/ auto diff RBC M/uL 3.9 5.1 3.69 Low FINAL Oziel Tilleyot a [facility] - [place], [address] [place] [id number] 0 Phone: () - 01/16 CBC w/ auto diff HCT % 35.0 48.0 35.0 FINAL Oziel Tilleyot a [facility] - [place], [address] [place] [id number] 0 Phone: () - 01/16 CBC w/ auto diff MCV fL 80.0 104.0 94.9 FINAL Oziel Tilleyot a [facility] - [place], [address] [place] [id number] 0 Phone: () - 01/16 CBC w/ auto diff MCH pg 26.0 35.0 32.2 FINAL Oziel Tilleyot a [facility] - [place], [address] [place] [id number] 0 Phone: () - 01/16 CBC w/ auto diff MCHC g/dL 30.0 35.0 34.0 FINAL Oziel Tilleyot a [facility] - [place], [address] [place] [id number] 0 Phone: () - 01/16 CBC w/ auto diff MPV fL 9.5 13.4 8.8 Low FINAL Oziel Tilleyot a [facility] - [place], [address] [facility] [id number] 0 Phone: () - 01/16 CBC w/ auto diff RDW % 11.4 16.1 13.90 FINAL Oziel angelo Oncology [facility], [address] [facility] [address] [facility] [id number] 0 Phone: () - 01/16 CMP Album in g/dL 3.2 5.2 4.3 FINAL Oziel angelo [place] [address] [place] [address] [id number] 0 Phone: () - 01/16 CMP Alkal ine phosp hatas e U/L 46.0 116.0 64 FINAL Oziel angelo [place] [address] [facility] [address] [place] [address] [id number] 0 Phone: () - 01/16 CMP ALT/S GPT U/L 7.0 40.0 12 FINAL Oziel angelo [place] [address] [facility] [address] [place] [address] [id number] 0 Phone: () - 01/16 CMP AST/S GOT U/L 13.0 40.0 23 FINAL Oziel angelo [place] [address] [id number] 0 Phone: () - 01/16 CMP BUN mg/dL 9.0 23.0 17 FINAL Oziel angelo [place] [address] [id number] 0 Phone: () - 01/16 CMP Calci um mg/dL 8.7 10.4 9.4 FINAL Oziel angelo [place] [address] [facility] [address] [place] [address] [id number] 0 Phone: () - 01/16 CMP Chlor vipin mmol/L 96.0 114.0 108 FINAL Oziel angelo [place] [address] [facility] [address] [id number] [phone] Phone: () - 01/16 CMP CO2 [...] 96 hour stability window. FINAL Oziel angelo [place] [address] [id number] 0 Phone: () - 01/16 CMP Creat inine mg/dL 0.5 1.2 1.07 FINAL Oziel angelo [address] [id number] 0 Phone: () - 01/16 CMP GFR estim ate ml/min /1.73m ^2 54.9 Low GFR is calculate d using the CKD-EPI equation. FINAL Oziel angelo [address] [id number] 0 Phone: () - 01/16 CMP Gluco se mg/dL 73.0 126.0 84 FINAL Oziel angelo [address] [id number] 0 Phone: () - 01/16 CMP Potas sium mmol/L 3.5 5.1 4.4 FINAL Oziel angelo [address] [id number] 0 Phone: () - 01/16 CMP Sodiu m mmol/L 136.0 145.0 141 FINAL Oziel angelo [address] [id number] 0 Phone: () - 01/16 CMP Bilir ubin, total mg/dL 0.3 1.2 0.4 FINAL Oziel angelo [address] [id number] 0 Phone: () - 01/16 CMP Total prote in g/dL 5.7 8.2 6.6 FINAL Oziel angelo [place] [address] [id number] 0 Phone: () - 01/16 TSH w/ refle x to free T4 TSH uIU/ml 0.32 5.0 14.74 High Provider Alert. Notified Vicki by Lynne Flannery on 01/19/2022 at 2:55 PM.Test performed at [facility] on a Tosoh 2000 Immunoass ay Analyzer that uses an immunoenz ymometric sandwich assay for analysis. Patient testing should not be performed using multiple methodolo gies due to analytica l variation seen between test methodolo gies. FINAL Oziel Tolbert a [facility] - [place] [address] [facility] [address] [place] [address] [id number] 0 Phone: () - 01/16 T4, free panel T4, free ng/dL 0.7 1.8 0.75 Test performed at [facility] on a [employer] Display System 2000 Immunoass ay Analyzer that uses an immunoenz ymometric sandwich assay for analysis. Patient testing should not be performed using multiple methodolo gies due to analytica l variation seen between test methodolo gies. FINAL Oziel angelo Oncology - [facility] [address] [facility] [address] [place] [address] [phone] 0 Phone: () - 02/20 TSH w/ refle x to free T4 TSH uIU/ml 0.32 5.0 Sent to [facility] ce Lab. Hard copy results availab le only. Test performed at [facility] on a [employer]osoh 2000 Immunoass ay Analyzer that uses an immunoenz ymometric sandwich assay for analysis. Patient testing should not be performed using multiple methodolo gies due to analytica l variation seen between test methodolo gies. FINAL Oziel angelo [facility] - [place] [address] [facility] [address] [place] [address] [phone] 0 Phone: () - 02/20 T4, free panel T4, free ng/dL 0.7 1.8 1.01 Test Performed by:[facility] [facility] [address] - [facility], [place] [address]Usvd e [phone] FINAL Oziel Box 02/20 TSH uIU/mL 0.35 4.94 8.74 High In Adults, TSH values between 5.00 and 10.00 uIU/ml do notnecess arily indicate the presence of Hypothyro idism.Cor relation with clinical findings such as presence of goiterand /or Thyropero xidase (TPO) Antibody may be helpful. Formore informati on please refer to MAYELA 2004; 291: 228-238.T est Performed by:[facility] [facility] [address] - [place] [address]Imip e [phone] FINAL Oziel Box 05/08 CMP Album in g/dL 3.2 5.2 4.0 FINAL Oziel angelo [facility] [place], [address] [facility] [address] [place] [address] [id number] 0 Phone: () - 05/08 CMP Alkal ine phosp hatas e U/L 46.0 116.0 56 FINAL Oziel angelo [facility] [address] [place] [address] [id number] 0 Phone: () - 05/08 CMP ALT/S GPT U/L 7.0 40.0 17 FINAL Oziel angelo [facility] [address] [place] [address] [id number] 0 Phone: () - 05/08 CMP AST/S GOT U/L 13.0 40.0 21 FINAL Oziel angelo [facility] [place], [address] [facility] [id number] 0 Phone: () - 05/08 CMP BUN mg/dL 9.0 23.0 22 FINAL Oziel angelo [facility] [place], [address] [facility] [address] [place] [address] [id number] 0 Phone: () - 05/08 CMP Calci um mg/dL 8.7 10.4 9.3 FINAL Oziel angelo [facility] [address] [facility] [address] [place] [address] [id number] 0 Phone: () - 05/08 CMP Chlor vipin mmol/L 96.0 114.0 112 FINAL Oziel angelo [facility] [address] [place] [address] [id number] 0 Phone: () - 05/08 CMP CO2 [...] 96 hour stability window. FINAL Oziel angelo [place] [address] [facility] [address] [id number] 0 Phone: () - 05/08 CMP Creat inine mg/dL 0.5 1.2 0.86 FINAL Oziel angelo [place] [address] [facility] [address] [id number] 0 Phone: () - 05/08 CMP GFR estim ate ml/min /1.73m ^2 71.2 GFR is calculate d using the CKD-EPI equation. FINAL Oziel angelo [place] [address] [id number] 0 Phone: () - 05/08 CMP Gluco se mg/dL 73.0 126.0 77 FINAL Oziel angelo [place] [address] [id number] 0 Phone: () - 05/08 CMP Potas sium mmol/L 3.5 5.1 3.9 FINAL Oziel angelo [place] [address] [facility] [address] [id number] 0 Phone: () - 05/08 CMP Sodiu m mmol/L 136.0 145.0 148 High FINAL Oziel angelo [facility] [address] [facility] [address] [id number] 0 Phone: () - 05/08 CMP Bilir ubin, total mg/dL 0.3 1.2 0.4 FINAL Oziel angelo [place] [address] [facility] [address] [id number] 0 Phone: () - 05/08 CMP Total prote in g/dL 5.7 8.2 6.1 FINAL Oziel angelo [place] [address] [facility] [address] [id number] 0 Phone: () - 05/08 CBC w/ auto diff WBC K/uL 3.0 8.9 7.3 FINAL Oziel angelo [facility], [address] [facility] [id number] 0 Phone: () - 05/08 CBC w/ auto diff HGB g/dL 11.3 15.2 11.0 Low FINAL Oziel Tilleyot gi [facility] - [place], [address] [place] [id number] 0 Phone: () - 05/08 CBC w/ auto diff PLT K/uL 113.0 364.0 210 FINAL Oziel Tilleyot gi [facility] - [place], [address] [place] [id number] 0 Phone: () - 05/08 CBC w/ auto diff Dave # (ANC) K/uL 1.6 6.6 3.7 FINAL Oziel angelo [facility] - [place], [address] [place] [id number] 0 Phone: () - 05/08 CBC w/ auto diff Dave % % 43.0 74.0 51.1 FINAL Oziel angelo [facility] - [place], [address] [place] [id number] 0 Phone: () - 05/08 CBC w/ auto diff IG % % 0.0 0.5 0.3 FINAL Oziel angelo [facility] - [place], [address] [place] [id number] 0 Phone: () - 05/08 CBC w/ auto diff IG # K/uL 0.0 0.03 0.02 FINAL Oziel angelo [facility] - [place], [address] [place] [id number] 0 Phone: () - 05/08 CBC w/ auto diff LY % % 14.0 41.0 37.9 FINAL Oziel Tilleyot a [facility] - [place], [address] [place] [id number] 0 Phone: () - 05/08 CBC w/ auto diff MO % % 6.0 15.0 9.2 FINAL Oziel Tilleyot a [facility] - [place], [address] [place] [id number] 0 Phone: () - 05/08 CBC w/ auto diff EO % % 0.0 7.0 1.2 FINAL Oziel Tilleyot a [facility] - [place], [address] [place] [id number] 0 Phone: () - 05/08 CBC w/ auto diff BA % % 0.0 2.0 0.3 FINAL Oziel Tilleyot gi [facility] - [place], [address] [place] [id number] 0 Phone: () - 05/08 CBC w/ auto diff LY # K/uL 0.4 3.6 2.8 FINAL Oziel Tilleyot gi [facility] - [place], [address] [place] [id number] 0 Phone: () - 05/08 CBC w/ auto diff MO # K/uL 0.2 1.3 0.7 FINAL Oziel Tilleyot gi [facility] - [place], [address] [place] [id number] 0 Phone: () - 05/08 CBC w/ auto diff EO # K/uL 0.0 0.6 0.1 FINAL Oziel angelo [facility] - [place], [address] [place] [id number] 0 Phone: () - 05/08 CBC w/ auto diff BA # K/uL 0.0 0.2 0.0 FINAL Oziel angelo [facility] - [place], [address] [place] [id number] 0 Phone: () - 05/08 CBC w/ auto diff NRBC % #/100W BC 0.0 0.2 0.0 FINAL Oziel angelo [facility] - [place], [address] [place] [id number] 0 Phone: () - 05/08 CBC w/ auto diff RBC M/uL 3.9 5.1 3.27 Low FINAL Oziel Tolbert a [facility] - [place], [address] [place] [id number] 0 Phone: () - 05/08 CBC w/ auto diff HCT % 35.0 48.0 32.1 Low FINAL Oziel angelo [facility] - [place], [address] [facility] [address] [place] [id number] 0 Phone: () - 05/08 CBC w/ auto diff MCV fL 80.0 104.0 98.2 FINAL Oziel angelo [facility] - [place], [address] [facility] [address] [place] [id number] 0 Phone: () - 05/08 CBC w/ auto diff MCH pg 26.0 35.0 33.6 FINAL Oziel angelo [facility] - [place], [address] [facility] [address] [place] [id number] 0 Phone: () - 05/08 CBC w/ auto diff MCHC g/dL 30.0 35.0 34.3 FINAL Oziel angelo [facility] - [place], [address] [facility] [address] [place] [id number] 0 Phone: () - 05/08 CBC w/ auto diff MPV fL 9.5 13.4 9.4 Low FINAL Oziel angelo [facility] - [place], [address] [facility] [address] [place] [id number] 0 Phone: () - 05/08 CBC w/ auto diff RDW % 11.4 16.1 13.10 FINAL Oziel angelo [facility] - [place], [address] [place] [address] d [address] [place] [id number] 0 Phone: () - 05/08 TSH w/ refle x to free T4 TSH uIU/ml 0.32 5.0 1.36 Test performed at [facility] on a [employer] Warrior Immunoass ay Analyzer that uses an immunoenz ymometric sandwich assay for analysis. Patient testing should not be performed using multiple methodharley amador due to analytica l variation seen between test methodharley amador. FINAL Oziel angelo [facility] - [place], [address] [facility] [id number] 0 Phone: () - 07/23 Misc other lab See chief controller d 07/23 Misc other lab See chief controller d 11/03 CMP Album in g/dL 3.2 5.2 4.1 FINAL Oziel angelo [place] [address] [facility] 100 [facility] [id number] 0 Phone: () - 11/03 CMP Alkal ine phosp hatas e U/L 46.0 116.0 59 FINAL Oziel angelo [place] [address] [facility] 100 [facility] [id number] 0 Phone: () - 11/03 CMP ALT/S GPT U/L 7.0 40.0 <7 FINAL Oziel angelo [place] [address] [facility] 100 [facility] [id number] 0 Phone: () - 11/03 CMP AST/S GOT U/L 13.0 40.0 24 FINAL Oziel angelo [place] [address] [address] [facility] [address] [id number] 0 Phone: () - 11/03 CMP BUN mg/dL 9.0 23.0 16.0 FINAL Oziel angelo [place] [address] [id number] 0 Phone: () - 11/03 CMP Calci um mg/dL 8.7 10.4 9.1 FINAL Oziel angelo [place] [address] [address] [facility] [address] [id number] 0 Phone: () - 11/03 CMP Chlor ivpin mmol/L 96.0 114.0 105 FINAL Oziel angelo [place] [address] [id number] 0 Phone: () - 11/03 CMP CO2 [...] 96 hour stability window. FINAL Oziel angelo [facility] [place], [address] [facility] 100 [facility] [id number] 0 Phone: () - 11/03 CMP Creat inine mg/dL 0.5 1.2 0.88 FINAL Oziel angelo [place] [address] [id number] 0 Phone: () - 11/03 CMP GFR estim ate ml/min /1.73m ^2 69.0 GFR is calculate d using the CKD-EPI equation. FINAL Oziel angelo [place] [address] [id number] 0 Phone: () - 11/03 CMP Gluco se mg/dL 73.0 126.0 105 FINAL Oziel angelo [place] [address] [id number] 0 Phone: () - 11/03 CMP Potas sium mmol/L 3.5 5.1 4.4 FINAL Oziel angelo [place] [address] [id number] 0 Phone: () - 11/03 CMP Sodiu m mmol/L 136.0 145.0 139 FINAL Oziel angelo [place] [address] [id number] 0 Phone: () - 11/03 CMP Bilir ubin, total mg/dL 0.3 1.2 0.6 FINAL Oziel angelo [place] [address] [id number] 0 Phone: () - 11/03 CMP Total prote in g/dL 5.7 8.2 6.6 FINAL Oziel angelo [place] [address] [facility] [address] [id number] 0 Phone: () - 11/03 CBC w/ auto diff WBC K/uL 3.0 8.9 4.7 FINAL Oziel angelo [facility], [address] [facility] [id number] 0 Phone: () - 08/22 /2023 CBC w/ auto diff HGB g/dL 11.3 15.2 11.6 FINAL Oziel Tilleyot a [facility] - [place], [address] [place] [id number] 0 Phone: () - 11/03 CBC w/ auto diff PLT K/uL 113.0 364.0 248 FINAL Oziel Tilleyot a [facility] - [place], [address] [place] [id number] 0 Phone: () - 11/03 CBC w/ auto diff Dave # (ANC) K/uL 1.6 6.6 2.9 FINAL Oziel Tilleyot a [facility] - [place], [address] [place] [id number] 0 Phone: () - 11/03 CBC w/ auto diff Dave % % 43.0 74.0 60.9 FINAL Oziel Tilleyot a [facility] - [place], [address] [place] [id number] 0 Phone: () - 11/03 CBC w/ auto diff IG % % 0.0 0.5 0.4 FINAL Oziel Tilleyot a [facility] - [place], [address] [place] [id number] 0 Phone: () - 11/03 CBC w/ auto diff IG # K/uL 0.0 0.03 0.02 FINAL Oziel Tilleyot a [facility] - [place], [address] [place] [id number] 0 Phone: () - 11/03 CBC w/ auto diff LY % % 14.0 41.0 26.8 FINAL Oziel Tilleyot a [facility] - [place], [address] [place] [id number] 0 Phone: () - 11/03 CBC w/ auto diff MO % % 6.0 15.0 8.5 FINAL Oziel Tilleyot a [facility] - [place], [address] [place] [id number] 0 Phone: () - 11/03 CBC w/ auto diff EO % % 0.0 7.0 3.0 FINAL Oziel Tilelyot a [facility] - [place], [address] [place] [id number] 0 Phone: () - 11/03 CBC w/ auto diff BA % % 0.0 2.0 0.4 FINAL Oziel Tilleyot a [facility] - [place], [address] [place] [id number] 0 Phone: () - 11/03 CBC w/ auto diff LY # K/uL 0.4 3.6 1.3 FINAL Oziel Tilleyot a [facility] - [place], [address] [place] [id number] 0 Phone: () - 11/03 CBC w/ auto diff MO # K/uL 0.2 1.3 0.4 FINAL Oziel Tilleyot a [facility] - [place], [address] [place] [id number] 0 Phone: () - 11/03 CBC w/ auto diff EO # K/uL 0.0 0.6 0.1 FINAL Oziel Tilleyot a [facility] - [place], [address] [place] [id number] 0 Phone: () - 11/03 CBC w/ auto diff BA # K/uL 0.0 0.2 0.0 FINAL Oziel [facility] - [place], [address] [place] [id number] 0 Phone: () - 11/03 CBC w/ auto diff NRBC % #/100W BC 0.0 0.2 0.0 FINAL Oziel Tilley[facility] - [place], [address] [place] [id number] 0 Phone: () - 11/03 CBC w/ auto diff RBC M/uL 3.9 5.1 3.52 Low FINAL Oziel Tilleyot [facility] - [place], [address] [place] [id number] 0 Phone: () - 11/03 CBC w/ auto diff HCT % 35.0 48.0 34.2 Low FINAL Oziel angelo [facility] - [place], [facility] [address] [place] [id number] 0 Phone: () - 11/03 CBC w/ auto diff MCV fL 80.0 104.0 97.2 FINAL Oziel angelo [facility] - [place], [facility] [address] [place] [id number] 0 Phone: () - 11/03 CBC w/ auto diff MCH pg 26.0 35.0 33.0 FINAL Oziel [facility] - [place], [facility] [address] [place] [id number] 0 Phone: () - 11/03 CBC w/ auto diff MCHC g/dL 30.0 35.0 33.9 FINAL Oziel angelo [facility] - [place], [facility] [address] [address] [place] [id number] 0 Phone: () - 11/03 CBC w/ auto diff MPV fL 9.5 13.4 8.7 Low FINAL Oziel angelo [facility] - [place], [facility] [address] [address] [place] [id number] 0 Phone: () - 11/03 CBC w/ auto diff RDW % 11.4 16.1 14.40 FINAL Oziel angelo [facility] - [place], [facility] [address] [address] [place] [id number] 0 Phone: () - 02/08 CMP Album in g/dL 3.2 5.2 4.0 FINAL [facility] - [place], [address] [place] [id number] 0 Phone: () - 02/08 CMP Alkal ine phosp hatas e U/L 46.0 116.0 83 FINAL Oziel [facility] - [place], [address] [place] [id number] 0 Phone: () - 02/08 CMP ALT/S GPT U/L 7.0 40.0 <7 FINAL Oziel angelo [facility] [place], [address] [facility] 100 [facility] [id number] 0 Phone: () - 02/08 CMP AST/S GOT U/L 13.0 40.0 23 FINAL Oziel angelo [facility] [address] [facility] 100 [facility] [id number] 0 Phone: () - 02/08 CMP BUN mg/dL 9.0 23.0 17.0 FINAL Oziel angelo [place] [address] [id number] 0 Phone: () - 02/08 CMP Calci um mg/dL 8.7 10.4 8.8 FINAL Oziel angelo [place] [address] [id number] 0 Phone: () - 02/08 CMP Chlor vipin mmol/L 96.0 114.0 109 FINAL Oziel angelo [place] [address] [id number] 0 Phone: () - 02/08 CMP CO2 [...] 96 hour stability window. FINAL Oziel angelo [place] [address] [id number] 0 Phone: () - 02/08 CMP Creat inine mg/dL 0.5 1.2 0.86 FINAL Oziel angelo [place] [address] [id number] 0 Phone: () - 02/08 CMP GFR estim ate ml/min /1.73m ^2 70.9 GFR is calculate d using the CKD-EPI equation. FINAL Oziel angelo [place] [address] [id number] 0 Phone: () - 02/08 CMP Gluco se mg/dL 73.0 126.0 84 FINAL Oziel angelo [facility] [place], [address] [facility] [id number] 0 Phone: () - 02/08 CMP Potas sium mmol/L 3.5 5.1 4.5 FINAL Oziel angelo [facility] [place], [address] [facility] [id number] 0 Phone: () - 02/08 CMP Sodiu m mmol/L 136.0 145.0 141 FINAL Oziel angelo [facility] [address] [facility] [id number] 0 Phone: () - 02/08 CMP Bilir ubin, total mg/dL 0.3 1.2 0.3 FINAL Oziel angelo [facility] [address] [facility] [id number] 0 Phone: () - 02/08 CMP Total prote in g/dL 5.7 8.2 6.1 FINAL Oziel angelo [facility] [place], [address] [facility] [id number] Phone: () - 02/08 TSH w/ refle x to free T4 TSH uIU/ml 0.32 5.0 3.61 Test performed at [facility] on a Phone Warrior Immunoass ay Analyzer that uses an immunoenz ymometric sandwich assay for analysis. Patient testing should not be performed using multiple methodharley amador due to analytica l variation seen between test methodharley amador. FINAL Oziel angelo [facility] [place], [address] [facility] [id number] 0 Phone: () - 02/08 CBC w/ auto diff WBC K/uL 3.0 8.9 4.7 FINAL Oziel angelo [facility] - [place], [address] [facility] [address] [place] [id number] 0 Phone: () - 02/08 CBC w/ auto diff HGB g/dL 11.3 15.2 11.0 Low FINAL Oziel angelo [facility] - [place], [address] [place] [id number] 0 Phone: () - 02/08 CBC w/ auto diff PLT K/uL 113.0 364.0 194 FINAL Oziel Tilleyot gi [facility] - [place], [address] [place] [id number] 0 Phone: () - 02/08 CBC w/ auto diff Dave # (ANC) K/uL 1.6 6.6 2.7 FINAL Oziel Tilleyot a [facility] - [place], [address] [place] [id number] 0 Phone: () - 02/08 CBC w/ auto diff Dave % % 43.0 74.0 57.2 FINAL Oziel Tilleyot a [facility] - [place], [address] [place] [id number] 0 Phone: () - 02/08 CBC w/ auto diff IG % % 0.0 0.5 0.4 FINAL Oziel angelo [facility] - [place], [address] [place] [id number] 0 Phone: () - 02/08 CBC w/ auto diff IG # K/uL 0.0 0.03 0.02 FINAL Oziel Tilleyot a [facility] - [place], [address] [place] [id number] 0 Phone: () - 02/08 CBC w/ auto diff LY % % 14.0 41.0 31.6 FINAL Oziel Tilleyot gi [facility] - [place], [address] [place] [id number] 0 Phone: () - 02/08 CBC w/ auto diff MO % % 6.0 15.0 8.0 FINAL Oziel Tilleyot gi [facility] - [place], [address] [place] [id number] 0 Phone: () - 02/08 CBC w/ auto diff EO % % 0.0 7.0 2.2 FINAL Oziel Tilleyot a [facility] - [place], [address] [place] [id number] 0 Phone: () - 02/08 CBC w/ auto diff BA % % 0.0 2.0 0.6 FINAL Oziel angelo [facility] - [place], [address] [place] [id number] 0 Phone: () - 02/08 CBC w/ auto diff LY # K/uL 0.4 3.6 1.5 FINAL Oziel angelo [facility] - [place], [address] [place] [id number] 0 Phone: () - 02/08 CBC w/ auto diff MO # K/uL 0.2 1.3 0.4 FINAL Oziel angelo [facility] - [place], [address] [place] [id number] 0 Phone: () - 02/08 CBC w/ auto diff EO # K/uL 0.0 0.6 0.1 FINAL Oziel angelo [facility] - [place], [address] [place] [id number] 0 Phone: () - 02/08 CBC w/ auto diff BA # K/uL 0.0 0.2 0.0 FINAL Oziel angelo [facility] - [place], [address] [place] [id number] 0 Phone: () - 02/08 CBC w/ auto diff NRBC % #/100W BC 0.0 0.2 0.0 FINAL Oziel angelo [facility] - [place], [address] [place] [id number] 0 Phone: () - 02/08 CBC w/ auto diff RBC M/uL 3.9 5.1 3.26 Low FINAL Oziel angelo [facility] - [place], [address] [place] [id number] 0 Phone: () - 02/08 CBC w/ auto diff HCT % 35.0 48.0 32.9 Low FINAL Oziel angelo [facility] - [place], [address] [place] [id number] 0 Phone: () - 02/08 CBC w/ auto diff MCV fL 80.0 104.0 100.9 FINAL Oziel Tilleyot a [facility] - [place], [address] [place] [id number] 0 Phone: () - 02/08 CBC w/ auto diff MCH pg 26.0 35.0 33.7 FINAL Oziel Tilleyot a [facility] - [place], [address] [place] [id number] 0 Phone: () - 02/08 CBC w/ auto diff MCHC g/dL 30.0 35.0 33.4 FINAL Oziel Tilleyot a [facility] - [place], [address] [place] [id number] 0 Phone: () - 02/08 CBC w/ auto diff MPV fL 9.5 13.4 9.0 Low FINAL Oziel Tolbert a [facility] - [place], [address] [place] [id number] 0 Phone: () - 02/08 CBC w/ auto diff RDW % 11.4 16.1 13.70 FINAL Oziel Tolbert a [facility] - [place], [address] [place] [id number] 0 Phone: () - 06/06 [facility] other lab See chief controller d 08/09 CMP Album in g/dL 3.5 5.0 4.1 FINAL Oziel Box Stephie Tilleyot a [facility] - [place], [address] [facility] [place] [id number] 0 08/09 CMP Alkal ine phosp hatas e U/L 36.0 125.0 66 FINAL Oziel Box * [facility] - [place], [address] [place] [id number] 0 08/09 CMP ALT/S GPT U/L 0.0 34.0 6 FINAL Oziel Tilleyot [facility], [address] [facility] [id number] 0 08/09 CMP AST/S GOT U/L 14.0 36.0 28 FINAL Oziel Tilleyot a [facility] [place], [address] [facility] [id number] 0 08/09 CMP BUN mg/dL 7.0 17.0 17.0 [facility] [address] [facility] [id number] 0 08/09 CMP Calci um mg/dL 8.4 10.2 9.4 [facility] [address] [id number] 0 08/09 CMP Chlor vipin mmol/L 96.0 107.0 106 [facility] [address] [facility] [id number] 0 08/09 CMP CO2 mmol/L 22.0 30.0 [...] the 96 hour stability window. [facility] [address] [facility] [id number] 0 08/09 CMP Creat inine mg/dL 0.66 1.25 0.70 FINAL Oziel Tilleyot [facility], [address] [facility] [id number] 0 08/09 CMP GFR estim ate ml/min /1.73m ^2 90.4 GFR is calculate d using the CKD-EPI equation. FINAL Oziel Box * [facility], [address] [facility] [address] [id number] 0 08/09 CMP Gluco se mg/dL 74.0 100.0 87 FINAL Oziel Box * [facility] [place], [facility] [address] [id number] 0 08/09 CMP Potas sium mmol/L 3.5 5.1 4.2 FINAL Oziel Box * [facility] [place], [facility] [address] [place] [address] [id number] 0 08/09 CMP Sodiu m mmol/L 137.0 145.0 139 FINAL Oziel Tilleyot a [facility] [place], [address] [facility] [address] [id number] 0 08/09 CMP Bilir ubin, total mg/dL 0.2 1.3 0.3 FINAL Oziel Tilleyot a [facility] [place], [address] [facility] [address] [place] [address] [id number] 0 08/09 CMP Total prote in g/dL 6.3 8.2 6.7 FINAL Oziel Tilleyot a [facility], [address] [facility] [address] [id number] 0 08/09 CBC w/ auto diff WBC K/uL 3.0 8.9 3.5 FINAL Oziel Tilleyot a [facility] - [place], [address] [place] [id number] 0 Phone: ( 08/09 CBC w/ auto diff HGB g/dL 11.3 15.2 11.7 FINAL Oziel Tilleyot a [facility] - [place], [address] [place] [id number] 0 Phone: () - 08/09 CBC w/ auto diff PLT K/uL 113.0 364.0 196 FINAL Oziel Tilleyot gi [facility] - [place], [address] [place] [id number] 0 Phone: () - 08/09 CBC w/ auto diff Dave # (ANC) K/uL 1.6 6.6 1.9 FINAL Oziel Tolbert a [facility] - [place], [address] [place] [id number] 0 Phone: () - 08/09 CBC w/ auto diff Dave % % 43.0 74.0 52.2 FINAL Oziel angelo [facility] - [place], [address] [place] [id number] 0 Phone: () - 08/09 CBC w/ auto diff IG % % 0.0 0.5 0.3 FINAL Oziel angelo [facility] - [place], [address] [place] [id number] 0 Phone: () - 08/09 CBC w/ auto diff IG # K/uL 0.0 0.03 0.01 FINAL Oziel angelo [facility] - [place], [address] [place] [id number] 0 Phone: () - 08/09 CBC w/ auto diff LY % % 14.0 41.0 35.0 FINAL Oziel angelo [facility] - [place], [address] [place] [id number] 0 Phone: () - 08/09 CBC w/ auto diff MO % % 6.0 15.0 9.6 FINAL Oziel angelo [facility] - [place], [address] [place] [id number] 0 Phone: () - 08/09 CBC w/ auto diff EO % % 0.0 7.0 2.3 FINAL Oziel Tilleyot a [facility] - [place], [address] [place] [id number] 0 Phone: () - 08/09 CBC w/ auto diff BA % % 0.0 2.0 0.6 FINAL Oziel Tilleyot a [facility] - [place], [address] [place] [id number] 0 Phone: () - 08/09 CBC w/ auto diff LY # K/uL 0.4 3.6 1.2 FINAL Oziel Tilleyot a [facility] - [place], [address] [place] [id number] 0 Phone: () - 08/09 CBC w/ auto diff MO # K/uL 0.2 1.3 0.3 FINAL Oziel Tilleyot a [facility] - [place], [address] [place] [id number] 0 Phone: () - 08/09 CBC w/ auto diff EO # K/uL 0.0 0.6 0.1 FINAL Oziel Tilleyot gi [facility] - [place], [address] [place] [id number] 0 Phone: () - 08/09 CBC w/ auto diff BA # K/uL 0.0 0.2 0.0 FINAL Oziel Tilleyot gi [facility] - [place], [address] [place] [id number] 0 Phone: () - 08/09 CBC w/ auto diff NRBC % #/100W BC 0.0 0.2 0.0 FINAL Oziel Tilleyot a [facility] - [place], [address] [place] [id number] 0 Phone: () - 08/09 CBC w/ auto diff RBC M/uL 3.9 5.1 3.51 Low FINAL Oziel Tilleyot a [facility] - [place], [address] [place] [id number] 0 Phone: () - 08/09 CBC w/ auto diff HCT % 35.0 48.0 35.6 FINAL Oziel Tilleyot a [facility] - [place], [address] [place] [id number] 0 Phone: () - 08/09 CBC w/ auto diff MCV fL 80.0 104.0 101.4 FINAL Oziel Tilleyot a [facility] - [place], [address] [place] [id number] 0 Phone: () - 08/09 CBC w/ auto diff MCH pg 26.0 35.0 33.3 FINAL Oziel Tilleyot a [facility] - [place], [address] [place] [id number] 0 Phone: () - 08/09 CBC w/ auto diff MCHC g/dL 30.0 35.0 32.9 FINAL Oziel Tilleyot a [facility] - [place], [address] [place] [id number] 0 Phone: () - 08/09 CBC w/ auto diff MPV fL 9.5 13.4 9.3 Low FINAL Oziel Tilleyot a [facility] - [place], [address] [place] [id number] 0 Phone: () - 08/09 CBC w/ auto diff RDW % 11.4 16.1 13.20 FINAL Oziel Tilleyot a [facility] - [place], [address] [place] [id number] 0 Phone: () - 08/09 TSH w/ refle x to free T4 TSHR- v mIU/ml 0.47 4.68 0.74 FINAL Oziel Box * [facility] - [place], [address] [facility] [place] [id number] 0 02/13 CBC w/ auto diff WBC K/uL 3.0 8.9 4.7 FINAL Oziel Box [place] [facility] - [place], [address] [place] [id number] 0 02/13 CBC w/ auto diff HGB g/dL 11.3 15.2 10.4 Low FINAL Oziel FREEMAN [facility] - [place], [address] [place] [id number] 0 02/13 CBC w/ auto diff PLT K/uL 113.0 364.0 252 FINAL Oziel FREEMAN [facility] - [place], [address] [place] [id number] 0 02/13 CBC w/ auto diff Dave # (ANC) K/uL 1.6 6.6 2.4 FINAL Oziel FREEMAN [facility] - [place], [address] [place] [id number] 0 02/13 CBC w/ auto diff Dave % % 43.0 74.0 51.3 FINAL Oziel FREEMAN [facility] - [place], [address] [place] [id number] 0 02/13 CBC w/ auto diff IG % % 0.0 0.5 0.2 FINAL Oziel FREEMAN [facility] - [place], [address] [place] [id number] 0 02/13 CBC w/ auto diff IG # K/uL 0.0 0.03 0.01 FINAL Oziel FREEMAN [facility] - [place], [address] [place] [id number] 0 02/13 CBC w/ auto diff LY % % 14.0 41.0 33.5 FINAL Oziel FREEMAN [facility] - [place], [address] [place] [id number] 0 02/13 CBC w/ auto diff MO % % 6.0 15.0 8.8 FINAL Oziel FREEMAN [facility] - [place], [address] [place] [id number] 0 02/13 CBC w/ auto diff EO % % 0.0 7.0 5.6 FINAL Oziel FREEMAN [facility] - [place], [address] [place] [id number] 0 02/13 CBC w/ auto diff BA % % 0.0 2.0 0.6 FINAL Oziel FREEMAN [facility] - [place], [address] [place] [id number] 0 02/13 CBC w/ auto diff LY # K/uL 0.4 3.6 1.6 FINAL Oziel FREEMAN [facility] - [place], [address] [place] [id number] 0 02/13 CBC w/ auto diff MO # K/uL 0.2 1.3 0.4 FINAL Oziel FREEMAN [facility] - [place], [address] [place] [id number] 0 02/13 CBC w/ auto diff EO # K/uL 0.0 0.6 0.3 FINAL Oziel FREEMAN [facility] - [place], [address] [place] [id number] 0 02/13 CBC w/ auto diff BA # K/uL 0.0 0.2 0.0 FINAL Oziel FREEMAN [facility] - [place], [address] [place] [id number] 0 02/13 CBC w/ auto diff NRBC % #/100W BC 0.0 0.2 0.0 FINAL Oziel FREEMAN [facility] - [place], [address] [place] [id number] 0 02/13 CBC w/ auto diff RBC M/uL 3.9 5.1 3.24 Low FINAL Oziel FREEMAN [facility] - [place], [address] [place] [id number] 0 02/13 CBC w/ auto diff HCT % 35.0 48.0 32.3 Low FINAL Oziel FREEMAN [facility] - [place], [address] [place] [id number] 0 02/13 CBC w/ auto diff MCV fL 80.0 104.0 99.7 FINAL Oziel FREEMAN [facility] - [place], [address] [place] [id number] 0 02/13 CBC w/ auto diff MCH pg 26.0 35.0 32.1 FINAL Oziel FREEMAN [facility] - [place], [address] [place] [id number] 0 02/13 CBC w/ auto diff MCHC g/dL 30.0 35.0 32.2 FINAL Oziel FREEMAN [facility] - [place], [address] [place] [id number] 0 02/13 CBC w/ auto diff MPV fL 9.5 13.4 9.1 Low FINAL Oziel FREEMAN [facility] - [place], [address] [place] [id number] 0 02/13 CBC w/ auto diff RDW % 11.4 16.1 13.70 FINAL Oziel FREEMAN [facility] - [place], [address] [place] [id number] 0 02/13 CMP Album in g/dL 3.5 5.0 3.5 FINAL Oziel Box * [place] [facility] [place], [address] [place] [id number] 0 02/13 CMP Alkal ine phosp hatas e U/L 36.0 125.0 75 FINAL Oziel Box * [place] [facility] [place], [address] [facility] [id number] 0 02/13 CMP ALT/S GPT U/L 0.0 34.0 <4 Repeate d FINAL Oziel Box * [place] [facility] [place], [address] [facility] [id number] 0 02/13 CMP AST/S GOT U/L 14.0 36.0 17 FINAL Oziel Box * [place] [facility], [address] [facility] [id number] 0 02/13 CMP BUN mg/dL 7.0 17.0 18.0 High FINAL Oziel Card [place] [facility], [address] [facility] [id number] 0 02/13 CMP Calci um mg/dL 8.4 10.2 9.2 FINAL Oziel Card [place] [facility], [address] [facility] [id number] 0 02/13 CMP Chlor vipin mmol/L 96.0 107.0 109 High FINAL Oziel Card [place] [facility], [address] [facility] [id number] 0 02/13 CMP CO2 mmol/L 22.0 30.0 [...] 96 hour stability window. FINAL Oziel Card [place] [facility], [address] [facility] [id number] 0 02/13 CMP Creat inine mg/dL 0.66 1.25 0.80 FINAL Oziel Box * [place] [facility], [address] [facility] [id number] 0 02/13 CMP GFR estim ate ml/min /1.73m ^2 76.8 GFR is calculate d using the CKD-EPI equation. FINAL Oziel Box * [place] [facility], [address] [facility] [id number] 0 02/13 CMP Gluco se mg/dL 74.0 100.0 84 FINAL Oziel Box * [facility], [address] [id number] 0 02/13 CMP Potas sium mmol/L 3.5 5.1 4.4 FINAL Oziel Box * [facility], [address] [id number] 0 02/13 CMP Sodiu m mmol/L 137.0 145.0 137 FINAL Oziel Box * [place] [facility], [address] [id number] 0 02/13 CMP Bilir ubin, total mg/dL 0.2 1.3 0.5 FINAL Oziel Box * [place] [facility], [address] [id number] 0 02/13 CMP Total prote in g/dL 6.3 8.2 6.2 Low FINAL Oziel Box * [facility], [address] [id number] 0 04/03 Misc other lab See chief controller d 08/14 CMP Album in g/dL 3.5 5.0 3.7 FINAL Oziel Box * [place] [facility] [place] [facility] , [address] [facility] [id number] 0 08/14 CMP Alkal ine phosp hatas e U/L 36.0 125.0 68 FINAL Oziel Box * [facility] , [address] [facility] [id number] 0 08/14 CMP ALT/S GPT U/L 0.0 34.0 10 FINAL Oziel Box * [facility] , [address] [facility] [id number] 0 08/14 CMP AST/S GOT U/L 14.0 36.0 28 FINAL Oziel Box * [facility] , [address] [facility] [address] [id number] 08/14 CMP BUN mg/dL 7.0 17.0 25.0 High FINAL Oziel Box * [facility] , [address] [facility] [id number] 0 08/14 CMP Calci um mg/dL 8.4 10.2 8.7 FINAL Oziel Box * [facility] , [address] [facility] [id number] 0 08/14 CMP Chlor vipin mmol/L 96.0 107.0 109 High FINAL Oziel Box * [facility] , [address] [facility] [id number] 0 08/14 CMP CO2 mmol/L 22.0 30.0 [...] hour stability window. FINAL Oziel Box * [facility] , [facility] [address] [facility] [id number] 0 08/14 CMP Creat inine mg/dL 0.66 1.25 0.90 FINAL Oziel Box * [facility] , [address] [facility] [address] [id number] 0 08/14 CMP GFR estim ate ml/min /1.73m ^2 66.5 GFR is calculate d using the CKD-EPI equation. FINAL Oziel Box * [facility] , [address] [facility] [address] [id number] 0 08/14 CMP Gluco se mg/dL 74.0 100.0 95 FINAL Oziel Box * [facility] , [facility] [address] [id number] 0 08/14 CMP Potas sium mmol/L 3.5 5.1 4.5 FINAL Oziel Box * [facility] , [address] [facility] [address] [id number] 0 08/14 CMP Sodiu m mmol/L 137.0 145.0 137 FINAL Oziel Box * [facility] , [address] [facility] [address] [id number] 0 08/14 CMP Bilir ubin, total mg/dL 0.2 1.3 0.8 FINAL Oziel Box * [facility] , [address] [facility] [address] [id number] 0 08/14 CMP Total prote in g/dL 6.3 8.2 6.5 FINAL Oziel Bxo * [facility] , [address] [facility] [address] [id number] 0 08/14 CBC w/ auto diff WBC K/uL 3.0 8.9 4.7 FINAL [facility] , [address] [place] [id number] 0 08/14 CBC w/ auto diff HGB g/dL 11.3 15.2 11.5 FINAL Oziel Box [place] [facility] , [address] [place] [id number] 0 08/14 CBC w/ auto diff PLT K/uL 113.0 364.0 211 FINAL Oziel Box [place] [facility] [place] [facility] , [address] [place] [id number] 0 08/14 CBC w/ auto diff Dave # (ANC) K/uL 1.6 6.6 2.9 FINAL Oziel Box [place] [facility] [place] [facility] , [address] [place] [id number] 0 08/14 CBC w/ auto diff Dave % % 43.0 74.0 61.3 FINAL Oziel Box [place] [facility] , [address] [place] [id number] 0 08/14 CBC w/ auto diff IG % % 0.0 0.5 0.2 FINAL Oziel Box [place] [facility] , [address] [place] [id number] 0 08/14 CBC w/ auto diff IG # K/uL 0.0 0.03 0.01 FINAL Oziel Box [place] [facility] [place] [facility] , [address] [place] [id number] 0 08/14 CBC w/ auto diff LY % % 14.0 41.0 25.6 FINAL Oziel Box [place] [facility] [place] [facility] , [address] [place] [id number] 0 06/02 /2025 CBC w/ auto diff MO % % 6.0 15.0 8.7 FINAL Oziel Box [place] [facility] [place] [facility] , [address] [place] [id number] 0 08/14 CBC w/ auto diff EO % % 0.0 7.0 3.8 FINAL Oziel Box [place] [facility] , [address] [place] [id number] 0 08/14 CBC w/ auto diff BA % % 0.0 2.0 0.4 FINAL Oziel Box [place] [facility] , [address] [place] [id number] 0 08/14 CBC w/ auto diff LY # K/uL 0.4 3.6 1.2 FINAL Oziel Box [place] [facility] [place] [facility] , [address] [place] [id number] 0 08/14 CBC w/ auto diff MO # K/uL 0.2 1.3 0.4 FINAL Oziel Box [place] [facility] [place] [facility] , [address] [place] [id number] 0 08/14 CBC w/ auto diff EO # K/uL 0.0 0.6 0.2 FINAL Oziel Box [place] [facility] [place] [facility] , [address] [place] [id number] 0 08/14 CBC w/ auto diff BA # K/uL 0.0 0.2 0.0 FINAL Oziel Box [place] [facility] [place] [facility] , [address] [place] [id number] 0 08/14 CBC w/ auto diff NRBC % #/100W BC 0.0 0.2 0.0 FINAL Oziel Box [place] [facility] [place] [facility] , [address] [place] [id number] 0 08/14 CBC w/ auto diff RBC M/uL 3.9 5.1 3.60 Low FINAL [facility] [place] [facility] , [address] [place] [id number] 0 08/14 CBC w/ auto diff HCT % 35.0 48.0 35.2 FINAL [facility] [place] [facility] , [address] [place] [phone] 0 08/14 CBC w/ auto diff MCV fL 80.0 104.0 97.8 FINAL [facility] [place] [facility] , [address] [place] [id number] 0 08/14 CBC w/ auto diff MCH pg 26.0 35.0 31.9 FINAL [facility] [place] [facility] , [address] [place] [id number] 0 08/14 CBC w/ auto diff MCHC g/dL 30.0 35.0 32.7 FINAL [facility] [place] [facility] , [address] [place] [id number] 0 08/14 CBC w/ auto diff MPV fL 9.5 13.4 9.0 Low FINAL [facility] [place] [facility] , [address] [place] [phone] 0 08/14 CBC w/ auto diff RDW % 11.4 16.1 13.60 FINAL [facility] [place] [facility] , [address] [place] [phone] Medications Date Name Route Dose Frequency Instructions Start Date End Date Status Baclofen Oral daily act charles Vitamin V52-Vpvom Acid Oral 500 mcg-400 mcg daily active [...] concentration must be 0.3-1.2 mg/mL.Administ er using [id number] ining equipment and through an in-line 0.22 [...]
--- OUTSIDE RECORDS SUMMARY | 2024-09-18 08:43 | XMS_ITS ---
Author Name Interface, [id number] lity Address [address] [address] [facility] Address [address] [facility] [address] [address] Allergies and Adverse Reactions Medication/Group Name Reaction [...] 20 MIN 05/13/2022 APPOINTMENT CHART CHECK 5 UT N 05/08/2022 APPOINTMENT OV 20 MIN 05/08/2022 [...] 15 MIN 02/20/2022 APPOINTMENT CHART CHECK 5 UT N 01/16/2022 APPOINTMENT PORT DRAW 15 MIN [...] 30 MIN 10/02/2021 APPOINTMENT CHART CHECK 5 UT N 10/01/2021 APPOINTMENT OUTSIDE TEST 5 M IN 09/26/2021 APPOINTMENT TREATMENT 2 HR 09/26/2021 APPOINTMENT PORT DRAW 15 MIN 09/26/2021 APPOINTMENT OV 30 MIN 09/26/2021 LABORDER CMP 09/26/2021 LABORDER CBC w/ [...] Visit OV 20 MIN Encounters Date Name 09/26/2021 Anemia 09/26/2021 [...] uIU/ml 0.32 5.0 1.33 Test performed at [facility] on a [employer] Immunoass ay Analyzer that uses an immunoenz ymometric sandwich assay for analysis. Patient testing should not be performed using multiple methodharley amador due to analytica l variation seen between test methodharley amador. FINAL Oziel Tilley a [facility] - [place], [address] [facility] [id number] [phone] Phone: () - 07/15 /2022 CBC w/ auto diff WBC K/uL 3.0 8.9 4.1 FINAL Oziel Tilleyot [facility] - [place], [address] [place] [phone] 0 Phone: () - 09/26 CBC w/ auto diff HGB g/dL 11.3 15.2 11.3 FINAL [facility] - [place], [address] [place] [id number] 0 Phone: () - 09/26 CBC w/ auto diff PLT K/uL 113.0 364.0 210 FINAL Oziel [facility] - [place], [address] [place] [phone] 0 Phone: () - 09/26 CBC w/ auto diff Dave # (ANC) K/uL 1.6 6.6 2.4 FINAL [facility] - [place], [address] [place] [id number] 0 Phone: () - 09/26 CBC w/ auto diff Dave % % 43.0 74.0 58.2 FINAL Oziel iTlleyot gi [facility] - [place], [address] [place] [phone] 0 Phone: () - 09/26 CBC w/ auto diff IG % % 0.0 0.5 0.2 FINAL [facility] - [place], [address] [place] [id number] 0 Phone: () - 09/26 CBC w/ auto diff IG # K/uL 0.0 0.03 0.01 FINAL [facility] - [place], [address] [place] [id number] 0 Phone: () - 09/26 CBC w/ auto diff LY % % 14.0 41.0 27.0 FINAL [facility] - [place], [address] [place] [id number] 0 Phone: () - 09/26 CBC w/ auto diff MO % % 6.0 15.0 10.5 FINAL [facility] - [place], [address] [place] [id number] 0 Phone: () - 09/26 CBC w/ auto diff EO % % 0.0 7.0 3.6 FINAL [facility] - [place], [address] [place] [id number] 0 Phone: () - 09/26 CBC w/ auto diff BA % % 0.0 2.0 0.5 FINAL [facility] - [place], [address] [place] [id number] 0 Phone: () - 09/26 CBC w/ auto diff LY # K/uL 0.4 3.6 1.1 FINAL [facility] - [place], [address] [place] [id number] 0 Phone: () - 09/26 CBC w/ auto diff MO # K/uL 0.2 1.3 0.4 FINAL [facility] - [place], [address] [place] [id number] 0 Phone: () - 09/26 CBC w/ auto diff EO # K/uL 0.0 0.6 0.2 FINAL [facility] - [place], [address] [place] [id number] 0 Phone: () - 09/26 CBC w/ auto diff BA # K/uL 0.0 0.2 0.0 FINAL [facility] - [place], [address] [place] [id number] 0 Phone: () - 09/26 CBC w/ auto diff NRBC % #/100W BC 0.0 0.2 0.0 FINAL [facility] - [place], [address] [place] [id number] 0 Phone: () - 09/26 CBC w/ auto diff RBC M/uL 3.9 5.1 3.38 Low FINAL [facility] - [place], [address] [place] [id number] 0 Phone: () - 09/26 CBC w/ auto diff HCT % 35.0 48.0 34.3 Low FINAL [facility] - [place], [address] [place] [id number] 0 Phone: () - 09/26 CBC w/ auto diff MCV fL 80.0 104.0 101.5 FINAL [facility] - [place], [address] [place] [id number] 0 Phone: () - 09/26 CBC w/ auto diff MCH pg 26.0 35.0 33.4 FINAL [facility] - [place], [address] [place] [id number] 0 Phone: () - 09/26 CBC w/ auto diff MCHC g/dL 30.0 35.0 32.9 FINAL [facility] - [place], [address] [place] [id number] 0 Phone: () - 09/26 CBC w/ auto diff MPV fL 9.5 13.4 8.9 Low FINAL [facility] - [place], [address] [place] [id number] 0 Phone: () - 09/26 CBC w/ auto diff RDW % 11.4 16.1 12.60 FINAL [facility] - [place], [address] [place] [id number] 0 Phone: () - 09/26 CMP Album in g/dL 3.2 5.2 4.3 FINAL [facility] - [place], [address] [place] [id number] 0 Phone: () - 09/26 CMP Alkal ine phosp hatas e U/L 46.0 116.0 65 FINAL Oziel angelo [place] [address] [address] [facility] [address] [phone] 0 Phone: () - 09/26 CMP ALT/S GPT U/L 7.0 40.0 8 FINAL Oziel angelo [facility] [address] [facility] [address] [id number] 0 Phone: () - 09/26 CMP AST/S GOT U/L 13.0 40.0 17 FINAL Oziel angelo [place] [address] [address] [facility] [address] [phone] 0 Phone: () - 09/26 CMP BUN mg/dL 9.0 23.0 21 FINAL Oziel angelo [place] [address] [address] [facility] [address] [phone] 0 Phone: () - 09/26 CMP Calci um mg/dL 8.7 10.4 9.2 FINAL Oziel angelo [place] [address] [address] [facility] [address] [id number] 0 Phone: () - 09/26 CMP Chlor vipin mmol/L 96.0 114.0 111 FINAL Oziel angelo [place] [address] [id number] 0 Phone: () - 09/26 CMP CO2 [...] 96 hour stability window. FINAL Oziel angelo [facility], [facility] [address] [facility] [address] [phone] 0 Phone: () - 09/26 CMP Creat inine mg/dL 0.5 1.2 0.79 FINAL Oziel angelo [place] [address] [address] [facility] [address] [id number] 0 Phone: () - 09/26 CMP GFR estim ate ml/min /1.73m ^2 79.1 GFR is calculate d using the CKD-EPI equation. FINAL [place] [address] [phone] 0 Phone: () - 09/26 CMP Gluco se mg/dL 73.0 126.0 83 FINAL Oziel Box [place] [address] [id number] 0 Phone: () - 09/26 CMP Potas sium mmol/L 3.5 5.1 4.4 FINAL Oziel Box [place] [address] [id number] 0 Phone: () - 09/26 CMP Sodiu m mmol/L 136.0 145.0 143 FINAL [place] [address] [id number] 0 Phone: () - 09/26 CMP Bilir ubin, total mg/dL 0.3 1.2 0.3 FINAL [place] [address] [id number] 0 Phone: () - 09/26 CMP Total prote in g/dL 5.7 8.2 6.3 FINAL [place] [address] [id number] 0 Phone: () - 10/24 T4, free panel T4, free ng/dL 0.7 1.8 1.62 Test performed at [facility] on a [employer] Immunoass ay Analyzer that uses an immunoenz ymometric sandwich assay for analysis. Patient testing should not be performed using multiple methodharley amador due to analytica l variation seen between test methodharley amador. FINAL Lia Delgado [place] [address] [phone] 0 Phone: () - 10/24 CMP Album in g/dL 3.2 5.2 4.3 FINAL Lia [place] [address] [id number] 0 Phone: () - 10/24 CMP Alkal ine phosp hatas e U/L 46.0 116.0 59 FINAL Lia [facility], [facility] [address] [facility] [address] [facility] [id number] 0 Phone: () - 10/24 CMP ALT/S GPT U/L 7.0 40.0 12 FINAL Lia [facility] [address] [facility] [address] [id number] 0 Phone: () - 10/24 CMP AST/S GOT U/L 13.0 40.0 22 FINAL Lia [place] [address] [address] [facility] [address] [id number] 0 Phone: () - 10/24 CMP BUN mg/dL 9.0 23.0 16 FINAL [place] [address] [address] [facility] [address] [id number] 0 Phone: () - 10/24 CMP Calci um mg/dL 8.7 10.4 9.7 FINAL [place] [address] [address] [facility] [address] [phone] 0 Phone: () - 10/24 CMP Chlor vipin mmol/L 96.0 114.0 110 FINAL [place] [address] [phone] 0 Phone: () - 10/24 CMP CO2 [...] the 96 hour stability window. FINAL Lia [facility], [facility] [address] [facility] [address] [phone] 0 Phone: () - 10/24 CMP Creat inine mg/dL 0.5 1.2 0.83 FINAL [place] [address] [id number] 0 Phone: () - 10/24 CMP GFR estim ate ml/min /1.73m ^2 74.5 GFR is calculate d using the CKD-EPI equation. FINAL [place] [address] [address] [facility] [address] [place] [phone] 0 Phone: () - 10/24 CMP Gluco se mg/dL 73.0 126.0 87 FINAL [place] [address] [address] [facility] [address] [facility] [id number] 0 Phone: () - 10/24 CMP Potas sium mmol/L 3.5 5.1 4.4 FINAL [place] [address] [address] [facility] [address] [facility] [id number] 0 Phone: () - 10/24 CMP Sodiu m mmol/L 136.0 145.0 145 FINAL [facility] [address] [facility] [address] [facility] [id number] 0 Phone: () - 10/24 CMP Bilir ubin, total mg/dL 0.3 1.2 0.4 FINAL [facility] [address] [facility] [address] [facility] [id number] 0 Phone: () - 10/24 CMP Total prote in g/dL 5.7 8.2 6.4 [place] [address] [address] [facility] [address] [place] [phone] 0 Phone: () - 10/24 TSH w/ refle x to free T4 TSH uIU/ml 0.32 5.0 0.05 Low Test performed at [facility] on a [employer] 2000 Immunoass ay Analyzer that uses an immunoenz ymometric sandwich assay for analysis. Patient testing should not be performed using multiple kathi amador due to analytica l variation seen between test kathi amador. FINAL [facility], [facility] [address] [facility] [id number] 0 Phone: () - 10/24 CBC w/ auto diff WBC K/uL 3.0 8.9 5.5 [facility], [address] [place] [phone] 0 Phone: () - 10/24 CBC w/ auto diff HGB g/dL 11.3 15.2 12.0 FINAL Lia Tolbert a [facility] - [place], [address] [place] [id number] 0 Phone: () - 10/24 CBC w/ auto diff PLT K/uL 113.0 364.0 211 FINAL Lia Tilleyot a [facility] - [place], [address] [place] [id number] 0 Phone: () - 10/24 CBC w/ auto diff Dave # (ANC) K/uL 1.6 6.6 3.4 FINAL Lia Tolbert a [facility] - [place], [address] [place] [id number] 0 Phone: () - 10/24 CBC w/ auto diff Dave % % 43.0 74.0 62.4 FINAL Lia Tolbert a [facility] - [place], [address] [place] [id number] 0 Phone: () - 10/24 CBC w/ auto diff IG % % 0.0 0.5 1.1 High FINAL Lia Tolbert a [facility] - [place], [address] [place] [id number] 0 Phone: () - 10/24 CBC w/ auto diff IG # K/uL 0.0 0.03 0.06 High FINAL Lia Tolbert a [facility] - [place], [address] [place] [id number] 0 Phone: () - 10/24 CBC w/ auto diff LY % % 14.0 41.0 22.2 FINAL Lia Tilleyot a [facility] - [place], [address] [place] [id number] 0 Phone: () - 10/24 CBC w/ auto diff MO % % 6.0 15.0 10.1 FINAL Lia [facility]leyot a [facility] - [place], [address] [place] [id number] 0 Phone: () - 10/24 CBC w/ auto diff EO % % 0.0 7.0 3.8 FINAL Lia [facility] - [place], [address] [place] [id number] 0 Phone: () - 10/24 CBC w/ auto diff BA % % 0.0 2.0 0.4 FINAL Lia [facility] - [place], [address] [place] [id number] 0 Phone: () - 10/24 CBC w/ auto diff LY # K/uL 0.4 3.6 1.2 FINAL Lia [facility]ley[facility] - [place], [address] [place] [id number] 0 Phone: () - 10/24 CBC w/ auto diff MO # K/uL 0.2 1.3 0.6 FINAL Lia Tolbert a [facility] - [place], [address] [place] [id number] 0 Phone: () - 10/24 CBC w/ auto diff EO # K/uL 0.0 0.6 0.2 FINAL Lia [facility]ley[facility] - [place], [address] [place] [id number] 0 Phone: () - 10/24 CBC w/ auto diff BA # K/uL 0.0 0.2 0.0 FINAL Lia [facility] - [place], [address] [place] [id number] 0 Phone: () - 10/24 CBC w/ auto diff NRBC % #/100W BC 0.0 0.2 0.0 FINAL Lia T[facility]ley[facility] a [facility] - [place], [address] [place] [id number] 0 Phone: () - 10/24 CBC w/ auto diff RBC M/uL 3.9 5.1 3.62 Low FINAL Lia Tilleyot a [facility] - [place], [address] [place] [id number] 0 Phone: () - 10/24 CBC w/ auto diff HCT % 35.0 48.0 35.7 FINAL Lia Tilleyot a [facility] - [place], [address] [place] [id number] 0 Phone: () - 10/24 CBC w/ auto diff MCV fL 80.0 104.0 98.6 FINAL Lia Tilley[facility] a [facility] - [place], [address] [place] [id number] 0 Phone: () - 10/24 CBC w/ auto diff MCH pg 26.0 35.0 33.1 FINAL Lia Tilleyot a [facility] - [place], [address] [place] [id number] 0 Phone: () - 10/24 CBC w/ auto diff MCHC g/dL 30.0 35.0 33.6 FINAL Lia Tilley[facility] a [facility] - [place], [address] [place] [id number] 0 Phone: () - 10/24 CBC w/ auto diff MPV fL 9.5 13.4 9.1 Low FINAL Lia Tilleyot a [facility] - [place], [address] [place] [id number] 0 Phone: () - 10/24 CBC w/ auto diff RDW % 11.4 16.1 12.20 FINAL Lia Tilleyot a [facility] - [place], [address] [place] [id number] 0 Phone: () - 11/21 CMP Album in g/dL 3.2 5.2 4.1 FINAL Lia Tilleyot a [facility] - [place], [address] [place] [id number] 0 Phone: () - 11/21 CMP Alkal ine phosp hatas e U/L 46.0 116.0 52 FINAL [facility], [address] [facility] [id number] 0 Phone: () - 11/21 CMP ALT/S GPT U/L 7.0 40.0 17 FINAL [facility] [address] [id number] 0 Phone: () - 11/21 CMP AST/S GOT U/L 13.0 40.0 24 FINAL [place] [address] [id number] 0 Phone: () - 11/21 CMP BUN mg/dL 9.0 23.0 14 FINAL [place] [address] [address] [facility] [address] [facility] [phone] 0 Phone: () - 11/21 CMP Calci um mg/dL 8.7 10.4 9.3 FINAL [place] [address] [address] [facility] [address] [id number] 0 Phone: () - 11/21 CMP Chlor vipin mmol/L 96.0 114.0 111 FINAL [place] [address] [address] [facility] [address] [id number] 0 Phone: () - 11/21 CMP CO2 [...] of the 96 hour stability window. FINAL [facility], [facility] N [facility] [address] [phone] 0 Phone: () - 11/21 CMP Creat inine mg/dL 0.5 1.2 0.79 FINAL [place] [address] [id number] 0 Phone: () - 11/21 CMP GFR estim ate ml/min /1.73m ^2 79.1 GFR is calculate d using the CKD-EPI equation. FINAL [place] [address] [phone] 0 Phone: () - 11/21 CMP Gluco se mg/dL 73.0 126.0 86 FINAL [place] [address] [id number] 0 Phone: () - 11/21 CMP Potas sium mmol/L 3.5 5.1 4.5 FINAL [place] [address] [address] [facility] [address] [id number] 0 Phone: () - 11/21 CMP Sodiu m mmol/L 136.0 145.0 144 FINAL [place] [address] [id number] 0 Phone: () - 11/21 CMP Bilir ubin, total mg/dL 0.3 1.2 0.3 FINAL [place] [address] [phone] 0 Phone: () - 11/21 CMP Total prote in g/dL 5.7 8.2 6.2 [place] [address] [id number] 0 Phone: () - 11/21 T4, free panel T4, free ng/dL 0.7 1.8 1.13 Test performed at [facility] on a [employer] Immunoass ay Analyzer that uses an immunoenz ymometric sandwich assay for analysis. Patient testing should not be performed using multiple methodolo ginaun due to analytica l variation seen between test methodharley amador. FINAL [place] [address] [id number] 0 Phone: () - 11/21 TSH w/ refle x to free T4 TSH uIU/ml 0.32 5.0 0.16 Low Test performed at [facility] on a [employer] Immunoass ay Analyzer that uses an immunoenz ymometric sandwich assay for analysis. Patient testing should not be performed using multiple methodolo ginaun due to analytica l variation seen between test methodolo ginaun. FINAL Lia angelo [facility] - [place], [address] [place] [id number] 0 Phone: () - 11/21 CBC w/ auto diff WBC K/uL 3.0 8.9 4.1 FINAL Lia angelo [facility] - [place], [address] [place] [id number] 0 Phone: () - 11/21 CBC w/ auto diff HGB g/dL 11.3 15.2 11.8 FINAL Lia angelo [facility] - [place], [address] [place] [id number] 0 Phone: () - 11/21 CBC w/ auto diff PLT K/uL 113.0 364.0 223 FINAL Lia angelo [facility] - [place], [address] [place] [id number] 0 Phone: () - 11/21 CBC w/ auto diff Dave # (ANC) K/uL 1.6 6.6 2.3 FINAL Lia angelo [facility] - [place], [address] [place] [id number] 0 Phone: () - 11/21 CBC w/ auto diff Dave % % 43.0 74.0 56.3 FINAL Lia angelo [facility] - [place], [address] [place] [id number] 0 Phone: () - 11/21 CBC w/ auto diff IG % % 0.0 0.5 0.2 FINAL Lia Tolbert a [facility] - [place], [address] [place] [id number] 0 Phone: () - 11/21 CBC w/ auto diff IG # K/uL 0.0 0.03 0.01 FINAL Lia Tolbert a [facility] - [place], [address] [place] [id number] 0 Phone: () - 11/21 CBC w/ auto diff LY % % 14.0 41.0 29.0 FINAL Lia angelo [facility] - [place], [address] [facility] [address] [place] [id number] 0 Phone: () - 11/21 CBC w/ auto diff MO % % 6.0 15.0 10.4 FINAL Lia angelo [facility] - [place], [address] [place] [id number] 0 Phone: () - 11/21 CBC w/ auto diff EO % % 0.0 7.0 3.9 FINAL Lia angelo [facility] - [place], [address] [facility] [address] [place] [id number] 0 Phone: () - 11/21 CBC w/ auto diff BA % % 0.0 2.0 0.2 FINAL Lia angelo [facility] - [place], [address] [facility] [address] [place] [id number] 0 Phone: () - 11/21 CBC w/ auto diff LY # K/uL 0.4 3.6 1.2 FINAL Lia angelo [facility] - [place], [address] [facility] [address] [place] [id number] 0 Phone: () - 11/21 CBC w/ auto diff MO # K/uL 0.2 1.3 0.4 FINAL Lia Tolbert a [facility] - [place], [address] [facility] [address] [place] [id number] 0 Phone: () - 11/21 CBC w/ auto diff EO # K/uL 0.0 0.6 0.2 FINAL Lia Tolbert a [facility] - [place], [address] [facility] [address] [place] [id number] 0 Phone: () - 11/21 CBC w/ auto diff BA # K/uL 0.0 0.2 0.0 FINAL Lia Tolbert a [facility] - [place], [address] [place] [id number] 0 Phone: () - 11/21 CBC w/ auto diff NRBC % #/100W BC 0.0 0.2 0.0 FINAL Lia Tolbert [facility] - [place], [address] [place] [id number] 0 Phone: () - 11/21 CBC w/ auto diff RBC M/uL 3.9 5.1 3.69 Low FINAL Lia Tolbert a [facility] - [place], [address] [place] [id number] 0 Phone: () - 11/21 CBC w/ auto diff HCT % 35.0 48.0 35.6 FINAL Lia Tolbert [facility] - [place], [address] [place] [id number] 0 Phone: () - 11/21 CBC w/ auto diff MCV fL 80.0 104.0 96.5 FINAL Lia angelo [facility] - [place], [address] [place] [id number] 0 Phone: () - 11/21 CBC w/ auto diff MCH pg 26.0 35.0 32.0 FINAL Lia Tolbert a [facility] - [place], [address] [place] [phone] 0 Phone: () - 11/21 CBC w/ auto diff MCHC g/dL 30.0 35.0 33.1 FINAL Lia Tolbert [facility] - [place], [address] [place] [id number] 0 Phone: () - 11/21 CBC w/ auto diff MPV fL 9.5 13.4 9.0 Low FINAL Lia angelo [facility] - [place], [address] [place] [id number] 0 Phone: () - 11/21 CBC w/ auto diff RDW % 11.4 16.1 12.40 FINAL Lia [place] [facility] [place], [address] [place] [id number] 0 Phone: () - 12/19 CBC w/ auto diff WBC K/uL 3.0 8.9 4.9 FINAL Oziel Tilleyot a [facility] - [place], [address] [place] [id number] 0 Phone: () - 12/19 CBC w/ auto diff HGB g/dL 11.3 15.2 11.8 FINAL Oziel Tilleyot [facility] - [place], [address] [place] [id number] 0 Phone: () - 12/19 CBC w/ auto diff PLT K/uL 113.0 364.0 218 FINAL Oziel Tilleyot [facility] - [place], [address] [place] [id number] 0 Phone: () - 12/19 CBC w/ auto diff Dave # (ANC) K/uL 1.6 6.6 2.7 FINAL Oziel Tilleyot gi [facility] - [place], [address] [place] [id number] 0 Phone: () - 12/19 CBC w/ auto diff Dave % % 43.0 74.0 55.3 FINAL Oziel angelo [facility] - [place], [address] [place] [id number] 0 Phone: () - 12/19 CBC w/ auto diff IG % % 0.0 0.5 0.2 FINAL Oziel Tilleyot [facility] - [place], [address] [place] [id number] 0 Phone: () - 12/19 CBC w/ auto diff IG # K/uL 0.0 0.03 0.01 FINAL Oziel [facility] - [place], [address] [place] [id number] 0 Phone: () - 12/19 CBC w/ auto diff LY % % 14.0 41.0 30.6 FINAL Oziel Tolbert a [facility] - [place], [address] [place] [id number] 0 Phone: () - 12/19 CBC w/ auto diff MO % % 6.0 15.0 9.3 FINAL Oziel T[facility]leyot [facility] - [place], [address] [place] [id number] 0 Phone: () - 12/19 CBC w/ auto diff EO % % 0.0 7.0 4.0 FINAL Oziel [facility] - [place], [address] [place] [id number] 0 Phone: () - 12/19 CBC w/ auto diff BA % % 0.0 2.0 0.6 FINAL Oziel T[facility]ot [facility] - [place], [address] [place] [id number] 0 Phone: () - 12/19 CBC w/ auto diff LY # K/uL 0.4 3.6 1.5 FINAL Oziel angelo [facility] - [place], [address] [place] [id number] 0 Phone: () - 12/19 CBC w/ auto diff MO # K/uL 0.2 1.3 0.5 FINAL Oziel angelo [facility] - [place], [address] [place] [id number] 0 Phone: () - 12/19 CBC w/ auto diff EO # K/uL 0.0 0.6 0.2 FINAL Oziel angelo [facility] - [place], [address] [place] [id number] 0 Phone: () - 12/19 CBC w/ auto diff BA # K/uL 0.0 0.2 0.0 FINAL Ozile Tilleyot a [facility] - [place], [address] [place] [id number] 0 Phone: () - 12/19 CBC w/ auto diff NRBC % #/100W BC 0.0 0.2 0.0 FINAL [facility] [place], [address] [place] [id number] 0 Phone: () - 12/19 CBC w/ auto diff RBC M/uL 3.9 5.1 3.68 Low FINAL [facility] [place], [address] [place] [id number] 0 Phone: () - 12/19 CBC w/ auto diff HCT % 35.0 48.0 35.3 FINAL [facility] [place], [address] [place] [id number] 0 Phone: () - 12/19 CBC w/ auto diff MCV fL 80.0 104.0 95.9 FINAL [facility] [place], [address] [place] [id number] 0 Phone: () - 12/19 CBC w/ auto diff MCH pg 26.0 35.0 32.1 FINAL [facility] [place], [address] [place] [id number] 0 Phone: () - 12/19 CBC w/ auto diff MCHC g/dL 30.0 35.0 33.4 FINAL [facility] [place], [address] [place] [id number] 0 Phone: () - 12/19 CBC w/ auto diff MPV fL 9.5 13.4 9.1 Low FINAL [facility] [place], [address] [place] [id number] 0 Phone: () - 12/19 CBC w/ auto diff RDW % 11.4 16.1 13.30 FINAL [facility] [place], [address] [place] [id number] 0 Phone: () - 12/19 CMP Album in g/dL 3.2 5.2 4.0 FINAL [facility], [address] [place] [id number] 0 Phone: () - 12/19 CMP Alkal ine phosp hatas e U/L 46.0 116.0 58 FINAL [facility], [address] [facility] [id number] 0 Phone: () - 12/19 CMP ALT/S GPT U/L 7.0 40.0 13 FINAL Oziel angel[facility] [address] [id number] 0 Phone: () - 12/19 CMP AST/S GOT U/L 13.0 40.0 24 FINAL [facility] [address] [facility] [address] [id number] 0 Phone: () - 12/19 CMP BUN mg/dL 9.0 23.0 18 FINAL [facility] [place] [address] [address] [facility] [address] [id number] 0 Phone: () - 12/19 CMP Calci um mg/dL 8.7 10.4 9.7 FINAL Oziel angelo [place] [address] [id number] 0 Phone: () - 12/19 CMP Chlor vipin mmol/L 96.0 114.0 111 FINAL [facility] angelo [place] [address] [address] [facility] [address] [id number] 0 Phone: () - 12/19 CMP CO2 [...] 96 hour stability window. FINAL [facility], [address] [place] [address] [id number] 0 Phone: () - 12/19 CMP Creat inine mg/dL 0.5 1.2 0.82 FINAL [facility]iel angel[facility] [address] [facility] [address] [id number] 0 Phone: () - 12/19 CMP GFR estim ate ml/min /1.73m ^2 75.6 GFR is calculate d using the CKD-EPI equation. FINAL [facility] angelo [place] [address] [id number] 0 Phone: () - 12/19 CMP Gluco se mg/dL 73.0 126.0 81 FINAL [facility] angelo [place] [address] [id number] 0 Phone: () - 12/19 CMP Potas sium mmol/L 3.5 5.1 4.4 FINAL Oziel angelo [place] [address] [id number] 0 Phone: () - 12/19 CMP Sodiu m mmol/L 136.0 145.0 144 FINAL Oziel angelo [place] [address] [id number] 0 Phone: () - 12/19 CMP Bilir ubin, total mg/dL 0.3 1.2 0.4 FINAL Oziel angelo [place] [address] [id number] 0 Phone: () - 12/19 CMP Total prote in g/dL 5.7 8.2 6.3 FINAL [facility] angelo [place] [address] [id number] 0 Phone: () - 12/19 TSH w/ refle x to free T4 TSH uIU/ml 0.32 5.0 2.75 Test performed at [facility] on a [employer] 2000 Immunoass ay Analyzer that uses an immunoenz ymometric sandwich assay for analysis. Patient testing should not be performed using multiple kathi amador due to analytica l variation seen between test kathi amador. FINAL [facility] angelo [place] [address] [id number] 0 Phone: () - 01/12 [facility] other lab See fellmongery worker d 01/16 CMP Album in g/dL 3.2 5.2 4.3 FINAL [facility], [address] [facility] [address] [id number] 0 Phone: () - 01/16 CMP Alkal ine phosp hatas e U/L 46.0 116.0 64 FINAL [facility] angel[facility] [address] [facility] [address] [id number] 0 Phone: () - 01/16 CMP ALT/S GPT U/L 7.0 40.0 12 FINAL Oziel angelo [place] [address] [id number] 0 Phone: () - 01/16 CMP AST/S GOT U/L 13.0 40.0 23 FINAL Oziel angelo [place] [address] [address] [facility] [address] [id number] 0 Phone: () - 01/16 CMP BUN mg/dL 9.0 23.0 17 FINAL Oziel angelo [place] [address] [address] [facility] [address] [id number] 0 Phone: () - 01/16 CMP Calci um mg/dL 8.7 10.4 9.4 FINAL Oziel angelo [place] [address] [address] [facility] [address] [id number] 0 Phone: () - 01/16 CMP Chlor vipin mmol/L 96.0 114.0 108 FINAL [facility]iel angelo [place] [address] [address] [facility] [address] [id number] 0 Phone: () - 01/16 CMP CO2 [...] 96 hour stability window. FINAL [facility], [address] [facility] [address] [id number] 0 Phone: () - 01/16 CMP Creat inine mg/dL 0.5 1.2 1.07 FINAL Oziel angelo [place] [address] [id number] 0 Phone: () - 01/16 CMP GFR estim ate ml/min /1.73m ^2 54.9 Low GFR is calculate d using the CKD-EPI equation. FINAL Oziel angelo [address] [id number] 0 Phone: () - 01/16 CMP Gluco se mg/dL 73.0 126.0 84 FINAL Oziel angelo [address] [id number] 0 Phone: () - 01/16 CMP Potas sium mmol/L 3.5 5.1 4.4 FINAL [facility] angelo [place] [address] [address] [facility] [address] [id number] 0 Phone: () - 01/16 CMP Sodiu m mmol/L 136.0 145.0 141 FINAL [facility] [place] [address] [address] [facility] [address] [id number] 0 Phone: () - 01/16 CMP Bilir ubin, total mg/dL 0.3 1.2 0.4 FINAL [facility] angel[facility] [place] [address] [id number] 0 Phone: () - 01/16 CMP Total prote in g/dL 5.7 8.2 6.6 FINAL [facility] angelo [place] [address] [address] [facility] [address] [id number] 0 Phone: () - 01/16 TSH w/ refle x to free T4 TSH uIU/ml 0.32 5.0 14.74 High Provider Alert. Notified Vicki by Lynne Flannery on 01/19/2022 at 2:55 PM.Test performed at [facility] on a [employer] Immunoass ay Analyzer that uses an immunoenz ymometric sandwich assay for analysis. Patient testing should not be performed using multiple methodharley amador due to analytica l variation seen between test methodharley amador. FINAL Oziel angelo [facility] [place], [address] [facility] [address] [place] [id number] 0 Phone: () - 01/16 T4, free panel T4, free ng/dL 0.7 1.8 0.75 Test performed at [facility] on a [employer] Immunoass ay Analyzer that uses an immunoenz ymometric sandwich assay for analysis. Patient testing should not be performed using multiple methodharley amador due to analytica l variation seen between test methodharley amador. FINAL [facility] [place], [address] [facility] [address] [place] [id number] 0 Phone: () - 01/16 CBC w/ auto diff WBC K/uL 3.0 8.9 4.4 FINAL [facility] [place], [address] [place] [address] [address] [facility] [place] [id number] 0 Phone: () - 01/16 CBC w/ auto diff HGB g/dL 11.3 15.2 11.9 FINAL [facility] [place], [address] [place] [address] d [address] [facility] [place] [id number] 0 Phone: () - 01/16 CBC w/ auto diff PLT K/uL 113.0 364.0 231 FINAL [facility] [place], [address] [place] [address] [address] [facility] [place] [id number] 0 Phone: () - 01/16 CBC w/ auto diff Dave # (ANC) K/uL 1.6 6.6 2.4 FINAL [facility] [place], [address] [place], [place] [address]et [facility] [address] [place] [id number] 0 Phone: () - 01/16 CBC w/ auto diff Dave % % 43.0 74.0 54.7 FINAL [facility] [place], [address] [place] [address] d [address] [place] [id number] 0 Phone: () - 01/16 CBC w/ auto diff IG % % 0.0 0.5 0.2 FINAL [facility] [place], [address] [place], [place] [address] [place] [id number] 0 Phone: () - 01/16 CBC w/ auto diff IG # K/uL 0.0 0.03 0.01 FINAL [facility] [place], [address] [place] [id number] 0 Phone: () - 01/16 CBC w/ auto diff LY % % 14.0 41.0 31.8 FINAL [facility] [place], [address] [place] [id number] 0 Phone: () - 01/16 CBC w/ auto diff MO % % 6.0 15.0 8.9 FINAL [facility] [place], [address] [place] [id number] 0 Phone: () - 01/16 CBC w/ auto diff EO % % 0.0 7.0 3.9 FINAL [facility] [place], [address] [place] [id number] 0 Phone: () - 01/16 CBC w/ auto diff BA % % 0.0 2.0 0.5 FINAL [facility] [place], [address] [place] [id number] 0 Phone: () - 01/16 CBC w/ auto diff LY # K/uL 0.4 3.6 1.4 FINAL [facility] [place], [address] [place] [id number] 0 Phone: () - 01/16 CBC w/ auto diff MO # K/uL 0.2 1.3 0.4 FINAL [facility] [place], [address] [place] [id number] 0 Phone: () - 01/16 CBC w/ auto diff EO # K/uL 0.0 0.6 0.2 FINAL [facility] [place], [address] [place] [id number] 0 Phone: () - 01/16 CBC w/ auto diff BA # K/uL 0.0 0.2 0.0 FINAL [facility] [place], [address] [place] [id number] 0 Phone: () - 01/16 CBC w/ auto diff NRBC % #/100W BC 0.0 0.2 0.0 FINAL [facility] [place], [address] [place] [id number] 0 Phone: () - 01/16 CBC w/ auto diff RBC M/uL 3.9 5.1 3.69 Low FINAL [facility] [place], [address] [place] [id number] 0 Phone: () - 01/16 CBC w/ auto diff HCT % 35.0 48.0 35.0 FINAL [facility] [place], [address] [place] [id number] 0 Phone: () - 01/16 CBC w/ auto diff MCV fL 80.0 104.0 94.9 FINAL [facility] [place], [address] [place] [id number] 0 Phone: () - 01/16 CBC w/ auto diff MCH pg 26.0 35.0 32.2 FINAL [facility] [place], [address] [place] [id number] 0 Phone: () - 01/16 CBC w/ auto diff MCHC g/dL 30.0 35.0 34.0 FINAL [facility] [place], [address] [place] [id number] 0 Phone: () - 01/16 CBC w/ auto diff MPV fL 9.5 13.4 8.8 Low FINAL [facility] [place], [address] [place] [id number] 0 Phone: () - 01/16 CBC w/ auto diff RDW % 11.4 16.1 13.90 FINAL [facility] [place], [address] [facility] [address] [place] [id number] 0 Phone: () - 02/20 TSH w/ refle x to free T4 TSH uIU/ml 0.32 5.0 Sent to Referen ce Lab. Hard copy results availab le only. Test performed at [facility] on a [employer] 2000 Immunoass ay Analyzer that uses an immunoenz ymometric sandwich assay for analysis. Patient testing should not be performed using multiple methodharley amador due to analytica l variation seen between test methodharley amador. FINAL [facility] [place], [address] [facility] [id number] 0 Phone: () - 02/20 TSH uIU/mL 0.35 4.94 8.74 High In Adults, TSH values between 5.00 and 10.00 uIU/ml do notnecess arily indicate the presence of Hypothyro idism.Cor relation with clinical findings such as presence of goiterand /or Thyropero xidase (TPO) Antibody may be helpful. Formore informati on please refer to MAYELA 2004; 291: 228-238.T est Performed by:[facility] [address] - [place], [place] [address]Rmbv e [phone] FINAL [facility]iel Box 02/20 T4, free panel T4, free ng/dL 0.7 1.8 1.01 Test Performed by:[facility] [address] - [facility], [place] [address]Nrhv e : FINAL Oziel Box 05/08 CBC w/ auto diff WBC K/uL 3.0 8.9 7.3 FINAL [facility] [place], [address] [facility] [address] [facility] [id number] 0 Phone: () - 05/08 CBC w/ auto diff HGB g/dL 11.3 15.2 11.0 Low FINAL [facility] [place], [address] [place] [id number] 0 Phone: () - 05/08 CBC w/ auto diff PLT K/uL 113.0 364.0 210 FINAL [facility] [place], [address] [place] [id number] 0 Phone: () - 05/08 CBC w/ auto diff Dave # (ANC) K/uL 1.6 6.6 3.7 FINAL [facility] [place], [address] [place] [id number] 0 Phone: () - 05/08 CBC w/ auto diff Dave % % 43.0 74.0 51.1 FINAL [facility] [place], [address] [place] [id number] 0 Phone: () - 05/08 CBC w/ auto diff IG % % 0.0 0.5 0.3 FINAL [facility] [place], [address] [place] [id number] 0 Phone: () - 05/08 CBC w/ auto diff IG # K/uL 0.0 0.03 0.02 FINAL [facility] [place], [address] [place] [id number] 0 Phone: () - 05/08 CBC w/ auto diff LY % % 14.0 41.0 37.9 FINAL [facility] [place], [address] [place] [id number] 0 Phone: () - 05/08 CBC w/ auto diff MO % % 6.0 15.0 9.2 FINAL [facility] [place], [address] [place] [id number] 0 Phone: () - 05/08 CBC w/ auto diff EO % % 0.0 7.0 1.2 FINAL [facility] [place], [address] [place] [id number] 0 Phone: () - 05/08 CBC w/ auto diff BA % % 0.0 2.0 0.3 FINAL [facility] [place], [address] [place] [id number] 0 Phone: () - 05/08 CBC w/ auto diff LY # K/uL 0.4 3.6 2.8 FINAL [facility] [place], [address] [place] [id number] 0 Phone: () - 05/08 CBC w/ auto diff MO # K/uL 0.2 1.3 0.7 FINAL [facility] [place], [address] [place] [id number] 0 Phone: () - 05/08 CBC w/ auto diff EO # K/uL 0.0 0.6 0.1 FINAL [facility] [place], [address] [place] [id number] 0 Phone: () - 05/08 CBC w/ auto diff BA # K/uL 0.0 0.2 0.0 FINAL [facility] [place], [address] [place] [id number] 0 Phone: () - 05/08 CBC w/ auto diff NRBC % #/100W BC 0.0 0.2 0.0 FINAL [facility] [place], [address] [place] [id number] 0 Phone: () - 05/08 CBC w/ auto diff RBC M/uL 3.9 5.1 3.27 Low FINAL [facility] [place], [address] [place] [id number] 0 Phone: () - 05/08 CBC w/ auto diff HCT % 35.0 48.0 32.1 Low FINAL [facility] [place], [address] [place] [id number] 0 Phone: () - 05/08 CBC w/ auto diff MCV fL 80.0 104.0 98.2 FINAL [facility] [place], [address] [place] [id number] 0 Phone: () - 05/08 CBC w/ auto diff MCH pg 26.0 35.0 33.6 FINAL [facility] [place], [address] [place] [id number] 0 Phone: () - 05/08 CBC w/ auto diff MCHC g/dL 30.0 35.0 34.3 FINAL [facility] [place], [address] [place] [id number] 0 Phone: () - 05/08 CBC w/ auto diff MPV fL 9.5 13.4 9.4 Low FINAL [facility] [place], [address] [place] [id number] 0 Phone: () - 05/08 CBC w/ auto diff RDW % 11.4 16.1 13.10 FINAL [facility] [place], [address] [place] [id number] 0 Phone: () - 05/08 CMP Album in g/dL 3.2 5.2 4.0 FINAL [facility] [place], [address] [place] [id number] 0 Phone: () - 05/08 CMP Alkal ine phosp hatas e U/L 46.0 116.0 56 FINAL [facility] [place], [address] [place] [id number] 0 Phone: () - 05/08 CMP ALT/S GPT U/L 7.0 40.0 17 FINAL [facility] angel[facility], [address] [facility] [address] [id number] 0 Phone: () - 05/08 CMP AST/S GOT U/L 13.0 40.0 21 FINAL Oziel angelo [facility] [address] [facility] [address] [facility] [id number] 0 Phone: () - 05/08 CMP BUN mg/dL 9.0 23.0 22 FINAL Oziel angelo [place] [address] [id number] 0 Phone: () - 05/08 CMP Calci um mg/dL 8.7 10.4 9.3 FINAL Oziel angelo [place] [address] [id number] 0 Phone: () - 05/08 CMP Chlor vipin mmol/L 96.0 114.0 112 FINAL Oziel angelo [place] [address] [id number] 0 Phone: () - 05/08 CMP CO2 [...] stability window. FINAL Oziel angelo [place] [address] [id number] 0 Phone: () - 05/08 CMP Creat inine mg/dL 0.5 1.2 0.86 FINAL Oziel angelo [place] [address] [id number] 0 Phone: () - 05/08 CMP GFR estim ate ml/min /1.73m ^2 71.2 GFR is calculate d using the CKD-EPI equation. FINAL Oziel angel[facility], [facility] [address] [id number] 0 Phone: () - 05/08 CMP Gluco se mg/dL 73.0 126.0 77 FINAL [facility] angel[facility], [address] [facility] [address] [facility] [id number] 0 Phone: () - 05/08 CMP Potas sium mmol/L 3.5 5.1 3.9 FINAL [facility], [address] [facility] [address] [facility] [id number] 0 Phone: () - 05/08 CMP Sodiu m mmol/L 136.0 145.0 148 High FINAL Oziel angelo [facility] [address] [facility] [address] [facility] [id number] 0 Phone: () - 05/08 CMP Bilir ubin, total mg/dL 0.3 1.2 0.4 FINAL Oziel angelo [facility] [address] [facility] [address] [facility] [id number] 0 Phone: () - 05/08 CMP Total prote in g/dL 5.7 8.2 6.1 FINAL Oziel angelo [facility] [address] [facility] [address] [facility] [id number] 0 Phone: () - 05/08 TSH w/ refle x to free T4 TSH uIU/ml 0.32 5.0 1.36 Test performed at [facility] on a [employer] Immunoass ay Analyzer that uses an immunoenz ymometric sandwich assay for analysis. Patient testing should not be performed using multiple methodolo gies due to analytica l variation seen between test methodolo gies. FINAL Oziel angelo [facility], [address] [facility] [address] [facility] [id number] 0 Phone: () - 07/23 [facility] other lab See fellmongery worker d 07/23 [facility] other lab See fellmongery worker d 11/03 CBC w/ auto diff WBC K/uL 3.0 8.9 4.7 FINAL [facility] [place], [address] [facility] [id number] 0 Phone: () - 11/03 CBC w/ auto diff HGB g/dL 11.3 15.2 11.6 FINAL [facility] [place], [address] [place] [id number] 0 Phone: () - 11/03 CBC w/ auto diff PLT K/uL 113.0 364.0 248 FINAL [facility] [place], [address] [place] [id number] 0 Phone: () - 11/03 CBC w/ auto diff Dave # (ANC) K/uL 1.6 6.6 2.9 FINAL [facility] [place], [address] [place] [id number] 0 Phone: () - 11/03 CBC w/ auto diff Dave % % 43.0 74.0 60.9 FINAL [facility] [place], [address] [place] [id number] 0 Phone: () - 11/03 CBC w/ auto diff IG % % 0.0 0.5 0.4 FINAL [facility] [place], [address] [place] [id number] 0 Phone: () - 11/03 CBC w/ auto diff IG # K/uL 0.0 0.03 0.02 FINAL [facility] [place], [address] [place] [id number] 0 Phone: () - 11/03 CBC w/ auto diff LY % % 14.0 41.0 26.8 FINAL [facility] [place], [address] [place] [id number] 0 Phone: () - 11/03 CBC w/ auto diff MO % % 6.0 15.0 8.5 FINAL [facility] [place], [address] [place] [id number] 0 Phone: () - 11/03 CBC w/ auto diff EO % % 0.0 7.0 3.0 FINAL [facility] [place], [address] [place] [id number] 0 Phone: () - 11/03 CBC w/ auto diff BA % % 0.0 2.0 0.4 FINAL [facility] [place], [address] [place] [id number] 0 Phone: () - 11/03 CBC w/ auto diff LY # K/uL 0.4 3.6 1.3 FINAL [facility] [place], [address] [place] [id number] 0 Phone: () - 11/03 CBC w/ auto diff MO # K/uL 0.2 1.3 0.4 FINAL [facility] [place], [address] [place] [id number] 0 Phone: () - 11/03 CBC w/ auto diff EO # K/uL 0.0 0.6 0.1 FINAL [facility] [place], [address] [place] [id number] 0 Phone: () - 11/03 CBC w/ auto diff BA # K/uL 0.0 0.2 0.0 FINAL [facility] [place], [address] [place] [id number] 0 Phone: () - 11/03 CBC w/ auto diff NRBC % #/100W BC 0.0 0.2 0.0 FINAL [facility] [place], [address] [place] [id number] 0 Phone: () - 11/03 CBC w/ auto diff RBC M/uL 3.9 5.1 3.52 Low FINAL [facility] [place], [address] [place] [id number] 0 Phone: () - 11/03 CBC w/ auto diff HCT % 35.0 48.0 34.2 Low FINAL [facility] [place] [facility] [place], [address] [place] [id number] 0 Phone: () - 11/03 CBC w/ auto diff MCV fL 80.0 104.0 97.2 FINAL [facility] [place], [address] [place] [id number] 0 Phone: () - 11/03 CBC w/ auto diff MCH pg 26.0 35.0 33.0 FINAL [facility] [place], [address] [place] [id number] 0 Phone: () - 11/03 CBC w/ auto diff MCHC g/dL 30.0 35.0 33.9 FINAL [facility] [place], [address] [place] [id number] 0 Phone: () - 11/03 CBC w/ auto diff MPV fL 9.5 13.4 8.7 Low FINAL [facility] [place], [address] [place] [id number] 0 Phone: () - 11/03 CBC w/ auto diff RDW % 11.4 16.1 14.40 FINAL [facility] [place], [address] [place] [id number] 0 Phone: () - 11/03 CMP Album in g/dL 3.2 5.2 4.1 FINAL [facility] [place], [address] [place] [id number] 0 Phone: () - 11/03 CMP Alkal ine phosp hatas e U/L 46.0 116.0 59 FINAL [facility] [place], [address] [place] [id number] 0 Phone: () - 11/03 CMP ALT/S GPT U/L 7.0 40.0 <7 FINAL [facility] [place], [address] [place] [id number] 0 Phone: () - 11/03 CMP AST/S GOT U/L 13.0 40.0 24 FINAL Oziel angelo [place] [address] [id number] 0 Phone: () - 11/03 CMP BUN mg/dL 9.0 23.0 16.0 FINAL Oziel [place] [address] [address] [facility] [address] [id number] 0 Phone: () - 11/03 CMP Calci um mg/dL 8.7 10.4 9.1 FINAL Oziel angelo [place] [address] [id number] 0 Phone: () - 11/03 CMP Chlor vipin mmol/L 96.0 114.0 105 FINAL Oziel angelo [place] [address] [id number] 0 Phone: () - 11/03 CMP CO2 [...] stability window. FINAL Oziel angelo [place] [address] [id number] 0 Phone: () - 11/03 CMP Creat inine mg/dL 0.5 1.2 0.88 FINAL Oziel angelo [place] [address] [id number] 0 Phone: () - 11/03 CMP GFR estim ate ml/min /1.73m ^2 69.0 GFR is calculate d using the CKD-EPI equation. FINAL Oziel angelo [place] [address] [id number] 0 Phone: () - 11/03 CMP Gluco se mg/dL 73.0 126.0 105 FINAL Oziel angelo [place] [address] [address] [facility] [address] [facility] [id number] 0 Phone: () - 11/03 CMP Potas sium mmol/L 3.5 5.1 4.4 FINAL Oziel angelo [facility], [address] [facility] [id number] 0 Phone: () - 11/03 CMP Sodiu m mmol/L 136.0 145.0 139 FINAL Oziel angelo [facility], [address] [facility] [id number] 0 Phone: () - 11/03 CMP Bilir ubin, total mg/dL 0.3 1.2 0.6 FINAL Oziel angelo [facility], [address] [facility] [id number] 0 Phone: () - 11/03 CMP Total prote in g/dL 5.7 8.2 6.6 FINAL Oziel angelo [facility], [address] [facility] [id number] 0 Phone: () - 02/08 CBC w/ auto diff WBC K/uL 3.0 8.9 4.7 FINAL Oziel angelo [facility] - [place], [address] [facility] [id number] 0 Phone: () - 02/08 CBC w/ auto diff HGB g/dL 11.3 15.2 11.0 Low FINAL Oziel angelo [facility] - [place], [address] [facility] [id number] 0 Phone: () - 02/08 CBC w/ auto diff PLT K/uL 113.0 364.0 194 FINAL Oziel angelo [facility] - [place], [address] [facility] [place] [id number] 0 Phone: () - 02/08 CBC w/ auto diff Dave # (ANC) K/uL 1.6 6.6 2.7 FINAL Oziel angelo [facility] - [place], [address] [facility] [place] [id number] 0 Phone: () - 02/08 CBC w/ auto diff Dave % % 43.0 74.0 57.2 FINAL Oziel Tilleyot a [facility] - [place], [address] [place] [id number] 0 Phone: () - 02/08 CBC w/ auto diff IG % % 0.0 0.5 0.4 FINAL Oziel Tilleyot a [facility] - [place], [address] [place] [id number] 0 Phone: () - 02/08 CBC w/ auto diff IG # K/uL 0.0 0.03 0.02 FINAL Oziel Tilleyot a [facility] - [place], [address] [place] [id number] 0 Phone: () - 02/08 CBC w/ auto diff LY % % 14.0 41.0 31.6 FINAL Oziel Tilleyot a [facility] - [place], [address] [place] [id number] 0 Phone: () - 02/08 CBC w/ auto diff MO % % 6.0 15.0 8.0 FINAL Oziel Tilleyot a [facility] - [place], [address] [place] [id number] 0 Phone: () - 02/08 CBC w/ auto diff EO % % 0.0 7.0 2.2 FINAL Oziel Tilleyot a [facility] - [place], [address] [place] [id number] 0 Phone: () - 02/08 CBC w/ auto diff BA % % 0.0 2.0 0.6 FINAL Oziel Tilleyot a [facility] - [place], [address] [place] [id number] 0 Phone: () - 02/08 CBC w/ auto diff LY # K/uL 0.4 3.6 1.5 FINAL Oziel Tilleyot a [facility] - [place], [address] [place] [id number] 0 Phone: () - 02/08 CBC w/ auto diff MO # K/uL 0.2 1.3 0.4 FINAL Oziel Tilleyot a [facility] - [place], [address] [place] [id number] 0 Phone: () - 02/08 CBC w/ auto diff EO # K/uL 0.0 0.6 0.1 FINAL Oziel Tilleyot a [facility] - [place], [address] [place] [id number] 0 Phone: () - 02/08 CBC w/ auto diff BA # K/uL 0.0 0.2 0.0 FINAL Oziel Tilleyot a [facility] - [place], [address] [place] [id number] 0 Phone: () - 02/08 CBC w/ auto diff NRBC % #/100W BC 0.0 0.2 0.0 FINAL Oziel Tilleyot gi [facility] - [place], [address] [place] [id number] 0 Phone: () - 02/08 CBC w/ auto diff RBC M/uL 3.9 5.1 3.26 Low FINAL Oziel angelo [facility] - [place], [address] [place] [id number] 0 Phone: () - 02/08 CBC w/ auto diff HCT % 35.0 48.0 32.9 Low FINAL Oziel Tilleyot gi [facility] - [place], [address] [place] [id number] 0 Phone: () - 02/08 CBC w/ auto diff MCV fL 80.0 104.0 100.9 FINAL Oziel Tilleyot a [facility] - [place], [address] [place] [id number] 0 Phone: () - 02/08 CBC w/ auto diff MCH pg 26.0 35.0 33.7 FINAL Oziel Tilleyot a [facility] - [place], [address] [place] [id number] 0 Phone: () - 02/08 CBC w/ auto diff MCHC g/dL 30.0 35.0 33.4 FINAL Oziel angelo [facility], [address] [facility] [address] [facility] [place] [id number] 0 Phone: () - 02/08 CBC w/ auto diff MPV fL 9.5 13.4 9.0 Low FINAL Oziel angelo [facility], [address] [facility] [place] [id number] 0 Phone: () - 02/08 CBC w/ auto diff RDW % 11.4 16.1 13.70 FINAL Oziel angelo [facility] - [facility], [address] [place] [address] d [address] [facility] [place] [id number] 0 Phone: () - 02/08 TSH w/ refle x to free T4 TSH uIU/ml 0.32 5.0 3.61 Test performed at [facility] on a [employer] Immunoass ay Analyzer that uses an immunoenz ymometric sandwich assay for analysis. Patient testing should not be performed using multiple methodolo ginaun due to analytica l variation seen between test methodharley amador. FINAL Oziel angelo [facility], [address] [place] [address] [id number] 0 Phone: () - 02/08 CMP Album in g/dL 3.2 5.2 4.0 FINAL Oziel angelo [facility], [address] [place] [address] [id number] 0 Phone: () - 02/08 CMP Alkal ine phosp hatas e U/L 46.0 116.0 83 FINAL Oziel angelo [facility], [address] [facility] [id number] 0 Phone: () - 02/08 CMP ALT/S GPT U/L 7.0 40.0 <7 FINAL Oziel angelo [facility], [address] [facility] [id number] 0 Phone: () - 02/08 CMP AST/S GOT U/L 13.0 40.0 23 FINAL Oziel angelo [facility], [address] [facility] [id number] 0 Phone: () - 02/08 CMP BUN mg/dL 9.0 23.0 17.0 FINAL Oziel [place] [address] [address] [facility] [address] [facility] [id number] 0 Phone: () - 02/08 CMP Calci um mg/dL 8.7 10.4 8.8 FINAL Oziel angel[place] [address] [id number] 0 Phone: () - 02/08 CMP Chlor vipin mmol/L 96.0 114.0 109 FINAL Oziel angelo [place] [address] [id number] 0 Phone: () - 02/08 CMP CO2 [...] stability window. FINAL Oziel angel[place] [address] [id number] 0 Phone: () - 02/08 CMP Creat inine mg/dL 0.5 1.2 0.86 FINAL Oziel angel[place] [address] [id number] 0 Phone: () - 02/08 CMP GFR estim ate ml/min /1.73m ^2 70.9 GFR is calculate d using the CKD-EPI equation. FINAL Oziel angel[place] [address] [id number] 0 Phone: () - 02/08 CMP Gluco se mg/dL 73.0 126.0 84 FINAL Oziel angelo [place] [address] [id number] 0 Phone: () - 02/08 CMP Potas sium mmol/L 3.5 5.1 4.5 FINAL Oziel angelo [facility], [address] [facility] [address] [facility] [id number] 0 Phone: () - 02/08 CMP Sodiu m mmol/L 136.0 145.0 141 FINAL Oziel Tolbert a [facility], [address] [facility] [address] [facility] [id number] 0 Phone: () - 02/08 CMP Bilir ubin, total mg/dL 0.3 1.2 0.3 FINAL Oziel Tolbert a [facility], [address] [facility] [address] [facility] [id number] 0 Phone: () - 02/08 CMP Total prote in g/dL 5.7 8.2 6.1 FINAL Oziel angelo [facility], [address] [facility] [address] [facility] [id number] 0 Phone: () - 06/06 Misc other lab See fellmongery worker d 08/09 CMP Album in g/dL 3.5 5.0 4.1 FINAL Oziel Tilleyot [facility], [address] [id number] 0 08/09 CMP Alkal ine phosp hatas e U/L 36.0 125.0 66 FINAL Oziel Tilleyot [facility], [address] [facility] [id number] 0 08/09 CMP ALT/S GPT U/L 0.0 34.0 6 FINAL Oziel Tilleyot [facility], [address] [facility] [id number] 0 08/09 CMP AST/S GOT U/L 14.0 36.0 28 FINAL [facility], [address] [facility] [id number] 0 08/09 CMP BUN mg/dL 7.0 17.0 17.0 FINAL Oziel Tilleyot [facility], [address] [facility] [id number] 0 08/09 CMP Calci um mg/dL 8.4 10.2 9.4 FINAL Oziel Tilleyot [facility], [address] [id number] 0 08/09 CMP Chlor vipin mmol/L 96.0 107.0 106 [facility] [address] [id number] 0 08/09 CMP CO2 mmol/L 22.0 30.0 [...] the 96 hour stability window. FINAL [facility], [address] [id number] 0 08/09 CMP Creat inine mg/dL 0.66 1.25 0.70 FINAL Oziel angelo [facility], [address] [facility] [address] [id number] 0 08/09 CMP GFR estim ate ml/min /1.73m ^2 90.4 GFR is calculate d using the CKD-EPI equation. FINAL [facility], [address] [id number] 0 08/09 CMP Gluco se mg/dL 74.0 100.0 87 FINAL Oziel Tilleyot a [facility], [address] [facility] [id number] 0 08/09 CMP Potas sium mmol/L 3.5 5.1 4.2 FINAL Oziel Box * [place] [facility] [place], [address] [facility] [id number] 0 08/09 CMP Sodiu m mmol/L 137.0 145.0 139 FINAL Oziel Box * [place] [facility] [place], [address] [facility] [id number] 0 08/09 CMP Bilir ubin, total mg/dL 0.2 1.3 0.3 FINAL Oziel Box * [place] [facility], [address] [facility] [id number] 0 08/09 CMP Total prote in g/dL 6.3 8.2 6.7 FINAL Oziel Box * [place] [facility], [address] [facility] [id number] 0 08/09 CBC w/ auto diff WBC K/uL 3.0 8.9 3.5 FINAL Oziel Tilleyot a [facility] - [place], [address] [place] [facility] [id number] 0 Phone: () - 08/09 CBC w/ auto diff HGB g/dL 11.3 15.2 11.7 FINAL Oziel Tilleyot a [facility] - [place], [address] [place] [id number] 0 Phone: () - 08/09 CBC w/ auto diff PLT K/uL 113.0 364.0 196 FINAL Oziel Tilleyot a [facility] - [place], [address] [place] [id number] 0 Phone: () - 08/09 CBC w/ auto diff Dave # (ANC) K/uL 1.6 6.6 1.9 FINAL Oziel Tilleyot a [facility] - [place], [address] [place] [id number] 0 Phone: () - 08/09 CBC w/ auto diff Dave % % 43.0 74.0 52.2 FINAL Oziel Tilleyot a [facility] - [place], [address] [place] [id number] 0 Phone: () - 08/09 CBC w/ auto diff IG % % 0.0 0.5 0.3 FINAL Oziel Tilleyot a [facility] - [place], [address] [place] [id number] 0 Phone: () - 08/09 CBC w/ auto diff IG # K/uL 0.0 0.03 0.01 FINAL Oziel Tilleyot a [facility] - [place], [address] [place] [id number] 0 Phone: () - 08/09 CBC w/ auto diff LY % % 14.0 41.0 35.0 FINAL Oziel Tilleyot a [facility] - [place], [address] [place] [id number] 0 Phone: () - 08/09 CBC w/ auto diff MO % % 6.0 15.0 9.6 FINAL Oziel Tilleyot a [facility] - [place], [address] [place] [id number] 0 Phone: () - 08/09 CBC w/ auto diff EO % % 0.0 7.0 2.3 FINAL Oziel Tilleyot a [facility] - [place], [address] [place] [id number] 0 Phone: () - 08/09 CBC w/ auto diff BA % % 0.0 2.0 0.6 FINAL Oziel Tilleyot a [facility] - [place], [address] [place] [id number] 0 Phone: () - 08/09 CBC w/ auto diff LY # K/uL 0.4 3.6 1.2 FINAL Oziel Tilleyot a [facility] - [place], [address] [place] [id number] 0 Phone: () - 08/09 CBC w/ auto diff MO # K/uL 0.2 1.3 0.3 FINAL Oziel angelo [facility] - [place], [address] [place] [id number] 0 Phone: () - 08/09 CBC w/ auto diff EO # K/uL 0.0 0.6 0.1 FINAL Oziel Tilleyot gi [facility] - [place], [address] [place] [id number] 0 Phone: () - 08/09 CBC w/ auto diff BA # K/uL 0.0 0.2 0.0 FINAL Oziel Tilleyot a [facility] - [place], [address] [place] [id number] 0 Phone: () - 08/09 CBC w/ auto diff NRBC % #/100W BC 0.0 0.2 0.0 FINAL Oziel angelo [facility] - [place], [address] [place] [id number] 0 Phone: () - 08/09 CBC w/ auto diff RBC M/uL 3.9 5.1 3.51 Low FINAL Oziel angelo [facility] - [place], [address] [place] [id number] 0 Phone: () - 08/09 CBC w/ auto diff HCT % 35.0 48.0 35.6 FINAL Oziel angelo [facility] - [place], [address] [place] [id number] 0 Phone: () - 08/09 CBC w/ auto diff MCV fL 80.0 104.0 101.4 FINAL Oziel Tilleyot a [facility] - [place], [address] [place] [id number] 0 Phone: () - 08/09 CBC w/ auto diff MCH pg 26.0 35.0 33.3 FINAL Oziel Tilleyot a [facility] - [place], [address] [place] [id number] 0 Phone: () - 08/09 CBC w/ auto diff MCHC g/dL 30.0 35.0 32.9 FINAL Oziel Tilleyot a [facility] - [place], [address] [place] [id number] 0 Phone: () - 08/09 CBC w/ auto diff MPV fL 9.5 13.4 9.3 Low FINAL Oziel Tilleyot a [facility] - [place], [address] [place] [id number] 0 Phone: () - 08/09 CBC w/ auto diff RDW % 11.4 16.1 13.20 FINAL Oziel Tilleyot a [facility] - [place], [address] [place] [id number] 0 Phone: () - 08/09 TSH w/ refle x to free T4 TSHR- v mIU/ml 0.47 4.68 0.74 FINAL Oziel Box * [place] [facility] [place], [address] [facility] [place] [id number] 0 02/13 CBC w/ auto diff WBC K/uL 3.0 8.9 4.7 FINAL Oziel FREEMAN [facility] - [place], [address] [place] [id number] 0 02/13 CBC w/ auto diff HGB g/dL 11.3 15.2 10.4 Low FINAL Oziel FREEMAN [facility] - [place], [address] [place] [id number] 0 02/13 CBC w/ auto diff PLT K/uL 113.0 364.0 252 FINAL Oziel FREEMAN [facility] - [place], [address] [place] [id number] 0 02/13 CBC w/ auto diff Dave # (ANC) K/uL 1.6 6.6 2.4 FINAL Oziel [facility] - [place], [address] [place] [id number] 0 02/13 CBC w/ auto diff Dave % % 43.0 74.0 51.3 FINAL Oziel FREEMAN [facility] - [place], [address] [place] [id number] 0 02/13 CBC w/ auto diff IG % % 0.0 0.5 0.2 FINAL Oziel FRE[facility] - [place], [address] [place] [id number] 0 02/13 CBC w/ auto diff IG # K/uL 0.0 0.03 0.01 FINAL Oziel FRE[facility] - [place], [address] [place] [id number] 0 02/13 CBC w/ auto diff LY % % 14.0 41.0 33.5 FINAL Oziel FREEM[facility] - [place], [address] [place] [id number] 0 02/13 CBC w/ auto diff MO % % 6.0 15.0 8.8 FINAL Oziel F[facility] - [place], [address] [place] [id number] 0 02/13 CBC w/ auto diff EO % % 0.0 7.0 5.6 FINAL Oziel FRE[facility] - [place], [address] [place] [id number] 0 02/13 CBC w/ auto diff BA % % 0.0 2.0 0.6 FINAL Oziel FRE[facility] - [place], [address] [place] [id number] 0 02/13 CBC w/ auto diff LY # K/uL 0.4 3.6 1.6 FINAL Oziel F[facility] - [place], [address] [place] [id number] 0 02/13 CBC w/ auto diff MO # K/uL 0.2 1.3 0.4 FINAL Oziel [facility] - [place], [address] [place] [id number] 0 02/13 CBC w/ auto diff EO # K/uL 0.0 0.6 0.3 FINAL Oziel [facility] - [place], [address] [place] [id number] 0 02/13 CBC w/ auto diff BA # K/uL 0.0 0.2 0.0 FINAL Oziel F[facility] - [place], [address] [place] [id number] 0 02/13 CBC w/ auto diff NRBC % #/100W BC 0.0 0.2 0.0 FINAL Oziel F[facility] - [place], [address] [place] [id number] 0 02/13 CBC w/ auto diff RBC M/uL 3.9 5.1 3.24 Low FINAL Oziel [facility] - [place], [address] [place] [id number] 0 02/13 CBC w/ auto diff HCT % 35.0 48.0 32.3 Low FINAL Oziel [facility] - [place], [address] [place] [id number] 0 02/13 CBC w/ auto diff MCV fL 80.0 104.0 99.7 FINAL Oziel [facility] - [place], [address] [place] [id number] 0 02/13 CBC w/ auto diff MCH pg 26.0 35.0 32.1 FINAL Oziel [facility] - [place], [address] [place] [id number] 0 02/13 CBC w/ auto diff MCHC g/dL 30.0 35.0 32.2 FINAL Oziel [facility] - [place], [address] [place] [id number] 0 02/13 CBC w/ auto diff MPV fL 9.5 13.4 9.1 Low FINAL Oziel [facility] - [place], [address] [place] [id number] 0 02/13 CBC w/ auto diff RDW % 11.4 16.1 13.70 FINAL Oziel [facility] - [place], [address] [place] [id number] 0 02/13 CMP Album in g/dL 3.5 5.0 3.5 FINAL Oziel Box * [place] [facility] [place], [address] [facility] [id number] 0 02/13 CMP Alkal ine phosp hatas e U/L 36.0 125.0 75 FINAL Oziel Box * [place] [facility] [place], [address] [facility] [id number] 02/13 CMP ALT/S GPT U/L 0.0 34.0 <4 Repeate d FINAL Oziel Box * [place] [facility] [place], [address] [facility] [id number] 0 02/13 CMP AST/S GOT U/L 14.0 36.0 17 FINAL Oizel Card [place] [facility] [place], [address] [facility] [id number] 0 02/13 CMP BUN mg/dL 7.0 17.0 18.0 High FINAL Oziel Card [place] [facility], [address] [facility] [id number] 0 02/13 CMP Calci um mg/dL 8.4 10.2 9.2 FINAL [place]iel Card [place] [facility], [address] [facility] [id number] 0 02/13 CMP Chlor vipin mmol/L 96.0 107.0 109 High FINAL Oziel Card [place] [facility], [address] [facility] [id number] 0 02/13 CMP CO2 mmol/L 22.0 30.0 [...] 96 hour stability window. FINAL Oziel Card [place] [facility], [address] [facility] [id number] 0 02/13 CMP Creat inine mg/dL 0.66 1.25 0.80 FINAL [place]iel Card [place] [facility], [address] [facility] [id number] 0 02/13 CMP GFR estim ate ml/min /1.73m ^2 76.8 GFR is calculate d using the CKD-EPI equation. FINAL [place]iel Card [place] [facility], [address] [facility] [id number] 0 02/13 CMP Gluco se mg/dL 74.0 100.0 84 FINAL Oziel Box * [place] [facility] [place], [address] [facility] [id number] 0 02/13 CMP Potas sium mmol/L 3.5 5.1 4.4 FINAL Oziel Box * [place] [facility] [place], [address] [facility] [id number] 0 02/13 CMP Sodiu m mmol/L 137.0 145.0 137 FINAL Oziel Box * [place] [facility] [place], [address] [facility] [id number] 0 02/13 CMP Bilir ubin, total mg/dL 0.2 1.3 0.5 FINAL Oizel Box * [place] [facility] [place], [address] [facility] [id number] 0 02/13 CMP Total prote in g/dL 6.3 8.2 6.2 Low FINAL Oziel Box * [place] [facility] [place], [address] [facility] [id number] 0 04/03 [facility] other lab See fellmongery worker d 08/14 CMP Album in g/dL 3.5 5.0 3.7 FINAL Oziel Box * [place] [facility] [place] [facility] , [address] [facility] [id number] 0 08/14 CMP Alkal ine phosp hatas e U/L 36.0 125.0 68 FINAL Oziel Box * [place] [facility] [place] [facility] , [address] [facility] [id number] 0 08/14 CMP ALT/S GPT U/L 0.0 34.0 10 FINAL Oziel Box * [place] [facility] [place] [facility] , [address] [facility] [id number] 0 08/14 CMP AST/S GOT U/L 14.0 36.0 28 FINAL Oziel Box * [facility] , [address] [facility] [address] [facility] [id number] 0 08/14 CMP BUN mg/dL 7.0 17.0 25.0 High FINAL Oziel Box * [facility] , [address] [facility] [id number] 0 08/14 CMP Calci um mg/dL 8.4 10.2 8.7 FINAL Oziel Box * [facility] , [address] [facility] [address] [id number] 0 08/14 CMP Chlor vipin mmol/L 96.0 107.0 109 High FINAL Oziel Box * [facility] , [address] [facility] [address] [facility] [id number] 0 08/14 CMP CO2 mmol/L 22.0 30.0 [...] hour stability window. FINAL Oziel Box * [facility] , [address] [facility] [id number] 0 08/14 CMP Creat inine mg/dL 0.66 1.25 0.90 FINAL Oziel Box * [facility] , [address] [facility] [id number] 0 08/14 CMP GFR estim ate ml/min /1.73m ^2 66.5 GFR is calculate d using the CKD-EPI equation. FINAL Oziel Box * [facility] , [address] [facility] [address] [id number] 0 08/14 CMP Gluco se mg/dL 74.0 100.0 95 FINAL Oziel Box * [facility] On[facility] , [address] [facility] [id number] 0 08/14 CMP Potas sium mmol/L 3.5 5.1 4.5 FINAL Oziel Box * [facility] , [address] [facility] [id number] 0 08/14 CMP Sodiu m mmol/L 137.0 145.0 137 FINAL Oziel Box * [facility] , [address] [facility] [id number] 08/14 CMP Bilir ubin, total mg/dL 0.2 1.3 0.8 FINAL Oziel Box * [facility] , [address] [facility] [id number] 0 08/14 CMP Total prote in g/dL 6.3 8.2 6.5 FINAL Oziel Box * [facility] , [address] [facility] [id number] 0 08/14 CBC w/ auto diff WBC K/uL 3.0 8.9 4.7 FINAL [facility] [place] [facility] , [address] [place] [facility] [id number] 0 08/14 CBC w/ auto diff HGB g/dL 11.3 15.2 11.5 FINAL [facility] [place] [facility] , [address] [place] [facility] [id number] 0 08/14 CBC w/ auto diff PLT K/uL 113.0 364.0 211 FINAL [facility] [place] [facility] , [address] [place] [facility] [id number] 0 08/14 CBC w/ auto diff Dave # (ANC) K/uL 1.6 6.6 2.9 FINAL Oziel Box [place] [facility] , [address] [place] [id number] 0 08/14 CBC w/ auto diff Dave % % 43.0 74.0 61.3 FINAL Oziel Box [place] [facility] , [address] [place] [id number] 0 08/14 CBC w/ auto diff IG % % 0.0 0.5 0.2 FINAL Oziel Box [place] [facility] , [address] [place] [id number] 0 08/14 CBC w/ auto diff IG # K/uL 0.0 0.03 0.01 FINAL Oziel Box [place] [facility] , [address] [place] [id number] 0 08/14 CBC w/ auto diff LY % % 14.0 41.0 25.6 FINAL Oziel Box [place] [facility] , [address] [place] [id number] 0 08/14 CBC w/ auto diff MO % % 6.0 15.0 8.7 FINAL Oziel Box [place] [facility] , [address] [place] [id number] 0 08/14 CBC w/ auto diff EO % % 0.0 7.0 3.8 FINAL Oziel Box [place] [facility] , [address] [place] [id number] 0 08/14 CBC w/ auto diff BA % % 0.0 2.0 0.4 FINAL Oziel Box [place] [facility] , [address] [place] [id number] 0 08/14 CBC w/ auto diff LY # K/uL 0.4 3.6 1.2 FINAL Oziel Box [place] [facility] , [address] [place] [id number] 0 08/14 CBC w/ auto diff MO # K/uL 0.2 1.3 0.4 FINAL Oziel Box [place] [facility] , [address] [place] [id number] 0 08/14 CBC w/ auto diff EO # K/uL 0.0 0.6 0.2 FINAL Oziel Box [place] [facility] , [address] [place] [id number] 0 08/14 CBC w/ auto diff BA # K/uL 0.0 0.2 0.0 FINAL Oziel Box [place] [facility] , [address] [place] [id number] 0 08/14 CBC w/ auto diff NRBC % #/100W BC 0.0 0.2 0.0 FINAL Oziel Box [place] [facility] , [address] [place] [id number] 0 08/14 CBC w/ auto diff RBC M/uL 3.9 5.1 3.60 Low FINAL Oziel Box [place] [facility] , [address] [place] [id number] 0 08/14 CBC w/ auto diff HCT % 35.0 48.0 35.2 FINAL Oziel Box [place] [facility] , [address] [place] [id number] 0 08/14 CBC w/ auto diff MCV fL 80.0 104.0 97.8 [facility]AL [facility] , [address] [place] [id number] 0 08/14 CBC w/ auto diff MCH pg 26.0 35.0 31.9 FINAL [facility] , [address] [facility] [id number] 0 08/14 CBC w/ auto diff MCHC g/dL 30.0 35.0 32.7 FINAL [facility] , [address] [facility] [id number] 0 08/14 CBC w/ auto diff MPV fL 9.5 13.4 9.0 Low FINAL [facility] , [address] [facility] [id number] 0 08/14 CBC w/ auto diff RDW % 11.4 16.1 13.60 FINAL [facility] , [address] [facility] [id number] Medications Date Name Route Dose Frequency Instructions Start Date End Date Status Baclofen Oral daily act charles Vitamin R61-[id number] Acid Oral 500 mcg-400 mcg daily active [...] concentration must be 0.3-1.2 mg/mL.Administ er using [employer]-bco[employer] ining equipment and through an in-line 0.22 [...] Temperature 96.40 02/12/2023 Heart Beat 70.00 08/16/2023 BSA 1.98 08/16/2023 BMI 33.28 08/16/2023 Height 65.00 08/16/2023 Weight 200.00 08/16/2023 Body Temperature 98.00 08/16/2023 Intravascular Systolic 110 08/16/2023 Intravascular Diastolic 70 08/16/2023 Oxygen Saturation 99.00 08/16/2023 Respiratory Rate 16.00 08/16/2023 Heart Beat 82.00 08/16/2023 Pain Scale 5.00 02/18/2024 Body Temperature 96.60 02/18/2024 BSA 1.95 02/18/2024 Heart Beat 81.00 02/18/2024 Respiratory Rate 16.00 02/18/2024 Oxygen Saturation 98.00 02/18/2024 Intravascular Systolic 134 02/18/2024 Intravascular Diastolic 82 02/18/2024 Pain Scale 0.00 02/18/2024 Weight 194.00 02/18/2024 Height 65.00 02/18/2024 BMI 32.28 09/04/2024 Body Temperature 98.70 09/04/2024 Heart Beat 64.00 09/04/2024 Respiratory Rate 16.00 09/04/2024 Oxygen Saturation 98.00 09/04/2024 Intravascular Systolic 132 09/04/2024 Intravascular Diastolic 70 09/04/2024 Weight 219.70 09/04/2024 Height 65.00 09/04/2024 BMI 36.56 09/04/2024 BSA 2.06 09/04/2024 Pain Scale 0.00
--- OUTSIDE RECORDS SUMMARY | 2024-09-18 08:43 | XMS_ITS ---
Author Name Interface, [id number] lity Address [address] [address] [facility] Address [address] [facility] [address] [address] Allergies and Adverse Reactions Medication/Group Name Reaction [...] 30 MIN 10/02/2021 APPOINTMENT CHART CHECK 5 MD N 10/01/2021 APPOINTMENT OUTSIDE TEST 5 M [...] Test performed at [facility] on a DNAtriX Immunoass ay Analyzer that uses an immunoenz ymometric sandwich assay for analysis. Patient testing should not be performed using multiple methodharley amador due to analytica l variation seen between test methodharley amador. FINAL [facility]iel [facility] - [place], [address] [facility] [id number] Phone: () - 07/15 /2022 CBC w/ auto diff WBC K/uL 3.0 8.9 4.1 FINAL [facility] - [place], [address] [place] [id number] 0 Phone: () - 09/26 CBC w/ auto diff HGB g/dL 11.3 15.2 11.3 FINAL [facility] - [place], [address] [place] [id number] 0 Phone: () - 09/26 CBC w/ auto diff PLT K/uL 113.0 364.0 210 FINAL [facility] - [place], [address] [place] [id number] 0 Phone: () - 09/26 CBC w/ auto diff Dave # (ANC) K/uL 1.6 6.6 2.4 FINAL [facility] - [place], [address] [place] [id number] 0 Phone: () - 09/26 CBC w/ auto diff Dave % % 43.0 74.0 58.2 FINAL Oziel [facility] - [place], [address] [place] [id number] 0 Phone: () - 09/26 CBC w/ auto diff IG % % 0.0 0.5 0.2 FINAL [facility] - [place], [address] [place] [id number] 0 Phone: () - 09/26 CBC w/ auto diff IG # K/uL 0.0 0.03 0.01 FINAL [facility] - [place], [address] [place] [id number] 0 Phone: () - 09/26 CBC w/ auto diff LY % % 14.0 41.0 27.0 FINAL [facility] - [place], [address] [place] [id number] 0 Phone: () - 09/26 CBC w/ auto diff MO % % 6.0 15.0 10.5 FINAL [facility] - [place], [address] [place] [id number] 0 Phone: () - 09/26 CBC w/ auto diff EO % % 0.0 7.0 3.6 FINAL [facility] - [place], [address] [place] [id number] 0 Phone: () - 09/26 CBC w/ auto diff BA % % 0.0 2.0 0.5 FINAL [facility] - [place], [address] [place] [id number] 0 Phone: () - 09/26 CBC w/ auto diff LY # K/uL 0.4 3.6 1.1 FINAL [facility] - [place], [address] [place] [id number] 0 Phone: () - 09/26 CBC w/ auto diff MO # K/uL 0.2 1.3 0.4 FINAL [facility] - [place], [address] [place] [id number] 0 Phone: () - 09/26 CBC w/ auto diff EO # K/uL 0.0 0.6 0.2 FINAL [facility] - [place], [address] [place] [id number] 0 Phone: () - 09/26 CBC w/ auto diff BA # K/uL 0.0 0.2 0.0 FINAL [facility] - [place], [address] [place] [id number] 0 Phone: () - 09/26 CBC w/ auto diff NRBC % #/100W BC 0.0 0.2 0.0 FINAL [facility] - [place], [address] [place] [id number] 0 Phone: () - 09/26 CBC w/ auto diff RBC M/uL 3.9 5.1 3.38 Low FINAL [facility] - [place], [address] [place] [id number] 0 Phone: () - 09/26 CBC w/ auto diff HCT % 35.0 48.0 34.3 Low FINAL [facility] - [place], [facility] [address] [place] [id number] 0 Phone: () - 09/26 CBC w/ auto diff MCV fL 80.0 104.0 101.5 FINAL [facility] - [place], [facility] [address] [place] [id number] 0 Phone: () - 09/26 CBC w/ auto diff MCH pg 26.0 35.0 33.4 FINAL [facility] - [place], [facility] [address] [place] [id number] 0 Phone: () - 09/26 CBC w/ auto diff MCHC g/dL 30.0 35.0 32.9 FINAL [facility] - [place], [facility] [address] [place] [id number] 0 Phone: () - 09/26 CBC w/ auto diff MPV fL 9.5 13.4 8.9 Low FINAL [facility] - [place], [facility] [address] [place] [id number] 0 Phone: () - 09/26 CBC w/ auto diff RDW % 11.4 16.1 12.60 FINAL [facility] - [place], [facility] [address] [place] [id number] 0 Phone: () - 09/26 CMP Album in g/dL 3.2 5.2 4.3 FINAL [facility] - [place], [address] [place] [id number] 0 Phone: () - 09/26 CMP Alkal ine phosp hatas e U/L 46.0 116.0 65 FINAL Oziel angelo [place] [address] [address] [facility] [address] [id number] 0 Phone: () - 09/26 CMP ALT/S GPT U/L 7.0 40.0 8 FINAL Oziel angelo [facility] [address] [facility] [address] [id number] 0 Phone: () - 09/26 CMP AST/S GOT U/L 13.0 40.0 17 FINAL Oziel angelo [place] [address] [address] [facility] [address] [id number] 0 Phone: () - 09/26 CMP BUN mg/dL 9.0 23.0 21 FINAL Oziel angelo [place] [address] [address] [facility] [address] [id number] 0 Phone: () - 09/26 CMP Calci um mg/dL 8.7 10.4 9.2 FINAL Oziel angelo [place] [address] [address] [facility] [address] [id number] 0 Phone: () - 09/26 CMP Chlor vipin mmol/L 96.0 114.0 111 FINAL Oziel angelo [place] [address] [id number] 0 Phone: () - 09/26 CMP CO2 [...] 96 hour stability window. FINAL Oziel angelo [facility], [facility] [address] [facility] [address] [id number] 0 Phone: () - 09/26 CMP Creat inine mg/dL 0.5 1.2 0.79 FINAL Oziel angelo [place] [address] [address] [facility] [address] [id number] 0 Phone: () - 09/26 CMP GFR estim ate ml/min /1.73m ^2 79.1 GFR is calculate d using the CKD-EPI equation. FINAL [place] [address] [id number] 0 Phone: () - 09/26 CMP Gluco se mg/dL 73.0 126.0 83 FINAL Oziel Box [place] [address] [id number] 0 Phone: () - 09/26 CMP Potas sium mmol/L 3.5 5.1 4.4 FINAL Oziel Box [place] [address] [id number] 0 Phone: () - 09/26 CMP Sodiu m mmol/L 136.0 145.0 143 FINAL [place] [address] [id number] 0 Phone: () - 09/26 CMP Bilir ubin, total mg/dL 0.3 1.2 0.3 FINAL [place] [address] [id number] 0 Phone: () - 09/26 CMP Total prote in g/dL 5.7 8.2 6.3 FINAL [place] [address] [id number] 0 Phone: () - 10/24 T4, free panel T4, free ng/dL 0.7 1.8 1.62 Test performed at [facility] on a DNAtriX Immunoass ay Analyzer that uses an immunoenz ymometric sandwich assay for analysis. Patient testing should not be performed using multiple methodharley amador due to analytica l variation seen between test methodharley amador. FINAL Lia Delgado [place] [address] [id number] 0 Phone: () - 10/24 CMP Album in g/dL 3.2 5.2 4.3 FINAL Lia [place] [address] [id number] 0 Phone: () - 10/24 CMP Alkal ine phosp hatas e U/L 46.0 116.0 59 FINAL Lia [facility], [facility] [address] [facility] [address] [facility] [id number] 0 Phone: () - 10/24 CMP ALT/S GPT U/L 7.0 40.0 12 FINAL Lia [facility] [address] [facility] [address] [id number] 0 Phone: () - 10/24 CMP AST/S GOT U/L 13.0 40.0 22 FINAL Lia [place] [address] [address] [facility] [address] [id number] 0 Phone: () - 10/24 CMP BUN mg/dL 9.0 23.0 16 FINAL [place] [address] [address] [facility] [address] [id number] 0 Phone: () - 10/24 CMP Calci um mg/dL 8.7 10.4 9.7 FINAL [place] [address] [address] [facility] [address] [id number] 0 Phone: () - 10/24 CMP Chlor vipin mmol/L 96.0 114.0 110 FINAL [place] [address] [id number] 0 Phone: () - 10/24 CMP CO2 [...] the 96 hour stability window. FINAL Lia [facility], [facility] [address] [facility] [address] [id number] 0 Phone: () - 10/24 CMP Creat inine mg/dL 0.5 1.2 0.83 FINAL [place] [address] [id number] 0 Phone: () - 10/24 CMP GFR estim ate ml/min /1.73m ^2 74.5 GFR is calculate d using the CKD-EPI equation. FINAL [place] [address] [address] [facility] [address] [place] [address] [id number] 0 Phone: () - 10/24 CMP Gluco se mg/dL 73.0 126.0 87 FINAL [place] [address] [address] [facility] [address] [facility] [id number] 0 Phone: () - 10/24 CMP Potas sium mmol/L 3.5 5.1 4.4 FINAL [place] [address] [address] [facility] [address] [facility] [id number] 0 Phone: () - 10/24 CMP Sodiu m mmol/L 136.0 145.0 145 FINAL [facility] [address] [facility] [address] [facility] [id number] 0 Phone: () - 10/24 CMP Bilir ubin, total mg/dL 0.3 1.2 0.4 FINAL [facility] [address] [facility] [address] [facility] [id number] 0 Phone: () - 10/24 CMP Total prote in g/dL 5.7 8.2 6.4 [place] [address] [address] [facility] [address] [place] [address] [id number] 0 Phone: () - 10/24 TSH w/ refle x to free T4 TSH uIU/ml 0.32 5.0 0.05 Low Test performed at [facility] on a [employer]emaz 2000 Immunoass ay Analyzer that uses an immunoenz ymometric sandwich assay for analysis. Patient testing should not be performed using multiple kathi amador due to analytica l variation seen between test kathi amador. FINAL [facility], [facility] [address] [facility] [id number] 0 Phone: () - 10/24 CBC w/ auto diff WBC K/uL [address] [facility], [address] [place] [id number] 0 Phone: () - 10/24 CBC w/ auto diff HGB g/dL 11.3 15.2 12.0 FINAL Lia Tolbert a [facility] - [place], [address] [place] [id number] 0 Phone: () - 10/24 CBC w/ auto diff PLT K/uL 113.0 364.0 211 FINAL Lia [facility] - [place], [address] [place] [id number] 0 Phone: () - 10/24 CBC w/ auto diff Dave # (ANC) K/uL 1.6 6.6 3.4 FINAL Lia Tolbert [facility] - [place], [address] [place] [id number] 0 Phone: () - 10/24 CBC w/ auto diff Dave % % 43.0 74.0 62.4 FINAL Lia [facility] - [place], [address] [place] [id number] 0 Phone: () - 10/24 CBC w/ auto diff IG % % 0.0 0.5 1.1 High FINAL Lia [facility] - [place], [address] [place] [id number] 0 Phone: () - 10/24 CBC w/ auto diff IG # K/uL 0.0 0.03 0.06 High FINAL Lia Tolbert [facility] - [place], [address] [place] [id number] 0 Phone: () - 10/24 CBC w/ auto diff LY % % 14.0 41.0 22.2 FINAL Lia [facility] - [place], [address] [place] [id number] 0 Phone: () - 10/24 CBC w/ auto diff MO % % 6.0 15.0 10.1 FINAL [facility] - [place], [address] [place] [id number] 0 Phone: () - 10/24 CBC w/ auto diff EO % % 0.0 7.0 3.8 FINAL [facility] - [place], [address] [place] [id number] 0 Phone: () - 10/24 CBC w/ auto diff BA % % 0.0 2.0 0.4 FINAL [facility] - [place], [address] [place] [id number] 0 Phone: () - 10/24 CBC w/ auto diff LY # K/uL 0.4 3.6 1.2 FINAL [facility] - [place], [address] [place] [id number] 0 Phone: () - 10/24 CBC w/ auto diff MO # K/uL 0.2 1.3 0.6 FINAL Lia Tolbert [facility] - [place], [address] [place] [id number] 0 Phone: () - 10/24 CBC w/ auto diff EO # K/uL 0.0 0.6 0.2 FINAL Lia [facility] - [place], [address] [place] [id number] 0 Phone: () - 10/24 CBC w/ auto diff BA # K/uL 0.0 0.2 0.0 FINAL Lia [facility] - [place], [address] [place] [id number] 0 Phone: () - 10/24 CBC w/ auto diff NRBC % #/100W BC 0.0 0.2 0.0 FINAL Lia [facility] - [place], [address] [place] [id number] 0 Phone: () - 10/24 CBC w/ auto diff RBC M/uL 3.9 5.1 3.62 Low FINAL Lia [facility] - [place], [address] [place] [id number] 0 Phone: () - 10/24 CBC w/ auto diff HCT % 35.0 48.0 35.7 FINAL Lia [facility] - [place], [address] [place] [id number] 0 Phone: () - 10/24 CBC w/ auto diff MCV fL 80.0 104.0 98.6 FINAL Lia [facility] - [place], [address] [place] [id number] 0 Phone: () - 10/24 CBC w/ auto diff MCH pg 26.0 35.0 33.1 FINAL Lia [facility] - [place], [address] [place] [id number] 0 Phone: () - 10/24 CBC w/ auto diff MCHC g/dL 30.0 35.0 33.6 FINAL Lia [facility] - [place], [address] [place] [id number] 0 Phone: () - 10/24 CBC w/ auto diff MPV fL 9.5 13.4 9.1 Low FINAL Lia [facility] - [place], [address] [place] [id number] 0 Phone: () - 10/24 CBC w/ auto diff RDW % 11.4 16.1 12.20 FINAL Lia [facility] - [place], [address] [place] [id number] 0 Phone: () - 11/21 CMP Album in g/dL 3.2 5.2 4.1 FINAL Lia [facility] - [place], [address] [place] [id number] 0 Phone: () - 11/21 CMP Alkal ine phosp hatas e U/L 46.0 116.0 52 FINAL [facility], [address] [facility] [id number] 0 Phone: () - 11/21 CMP ALT/S GPT U/L 7.0 40.0 17 FINAL [facility] [address] [id number] 0 Phone: () - 11/21 CMP AST/S GOT U/L 13.0 40.0 24 FINAL [place] [address] [id number] 0 Phone: () - 11/21 CMP BUN mg/dL 9.0 23.0 14 FINAL [place] [address] [address] [facility] [address] [facility] [id number] 0 Phone: () - 11/21 CMP Calci um mg/dL 8.7 10.4 9.3 FINAL [place] [address] [address] [facility] [address] [id number] 0 Phone: () - 11/21 CMP Chlor vipin mmol/L 96.0 114.0 111 FINAL [place] [address] [address] [facility] [address] [id number] 0 Phone: () - 11/21 CMP CO2 [...] of the 96 hour stability window. FINAL [facility], [facility] [address] [facility] [address] [id number] 0 Phone: () - 11/21 CMP Creat inine mg/dL 0.5 1.2 0.79 FINAL [place] [address] [id number] 0 Phone: () - 11/21 CMP GFR estim ate ml/min /1.73m ^2 79.1 GFR is calculate d using the CKD-EPI equation. FINAL [place] [address] [id number] 0 Phone: () - 11/21 CMP Gluco se mg/dL 73.0 126.0 86 FINAL [place] [address] [id number] 0 Phone: () - 11/21 CMP Potas sium mmol/L 3.5 5.1 4.5 FINAL [place] [address] [address] [facility] [address] [id number] 0 Phone: () - 11/21 CMP Sodiu m mmol/L 136.0 145.0 144 FINAL [place] [address] [id number] 0 Phone: () - 11/21 CMP Bilir ubin, total mg/dL 0.3 1.2 0.3 FINAL [place] [address] [id number] 0 Phone: () - 11/21 CMP Total prote in g/dL 5.7 8.2 6.2 [place] [address] [id number] 0 Phone: () - 11/21 T4, free panel T4, free ng/dL 0.7 1.8 1.13 Test performed at [facility] on a DNAtriX Immunoass ay Analyzer that uses an immunoenz ymometric sandwich assay for analysis. Patient testing should not be performed using multiple methodolo ginaun due to analytica l variation seen between test methodharley amador. FINAL [place] [address] [id number] 0 Phone: () - 11/21 TSH w/ refle x to free T4 TSH uIU/ml 0.32 5.0 0.16 Low Test performed at [facility] on a DNAtriX Immunoass ay Analyzer that uses an immunoenz ymometric sandwich assay for analysis. Patient testing should not be performed using multiple methodolo ginaun due to analytica l variation seen between test methodolo ginaun. FINAL Lia angelo [facility] - [place], [address] [place] [id number] 0 Phone: () - 11/21 CBC w/ auto diff WBC K/uL 3.0 8.9 4.1 FINAL Lia angelo [facility] - [place], [address] [place] [id number] 0 Phone: () - 11/21 CBC w/ auto diff HGB g/dL 11.3 15.2 11.8 FINAL Lia angelo [facility] - [place], [address] [place] [id number] 0 Phone: () - 11/21 CBC w/ auto diff PLT K/uL 113.0 364.0 223 FINAL Lia angelo [facility] - [place], [address] [place] [id number] 0 Phone: () - 11/21 CBC w/ auto diff Dave # (ANC) K/uL 1.6 6.6 2.3 FINAL Lia angelo [facility] - [place], [address] [place] [id number] 0 Phone: () - 11/21 CBC w/ auto diff Dave % % 43.0 74.0 56.3 FINAL Lia angelo [facility] - [place], [address] [place] [id number] 0 Phone: () - 11/21 CBC w/ auto diff IG % % 0.0 0.5 0.2 FINAL Lia Tolbert [facility] - [place], [address] [place] [id number] 0 Phone: () - 11/21 CBC w/ auto diff IG # K/uL 0.0 0.03 0.01 FINAL Lia [facility] - [place], [address] [place] [id number] 0 Phone: () - 11/21 CBC w/ auto diff LY % % 14.0 41.0 29.0 FINAL Lia angelo [facility] - [place], [address] [facility] [address] [place] [id number] 0 Phone: () - 11/21 CBC w/ auto diff MO % % 6.0 15.0 10.4 FINAL Lia angelo [facility] - [place], [address] [facility] [address] [place] [id number] 0 Phone: () - 11/21 CBC w/ auto diff EO % % 0.0 7.0 3.9 FINAL Lia angelo [facility] - [place], [address] [facility] [address] [place] [id number] 0 Phone: () - 11/21 CBC w/ auto diff BA % % 0.0 2.0 0.2 FINAL Lia angelo [facility] - [place], [address] [facility] [address] [place] [id number] 0 Phone: () - 11/21 CBC w/ auto diff LY # K/uL 0.4 3.6 1.2 FINAL Lia angelo [facility] - [place], [address] [facility] [address] [place] [id number] 0 Phone: () - 11/21 CBC w/ auto diff MO # K/uL 0.2 1.3 0.4 FINAL Lia [facility]bert [facility] - [place], [address] [facility] [address] [place] [id number] 0 Phone: () - 11/21 CBC w/ auto diff EO # K/uL 0.0 0.6 0.2 FINAL Lia Tolbert [facility] - [place], [address] [facility] [address] [place] [id number] 0 Phone: () - 11/21 CBC w/ auto diff BA # K/uL 0.0 0.2 0.0 FINAL Lia Tolbert [facility] - [place], [address] [place] [id number] 0 Phone: () - 11/21 CBC w/ auto diff NRBC % #/100W BC 0.0 0.2 0.0 FINAL Lia [facility] - [place], [address] [place] [id number] 0 Phone: () - 11/21 CBC w/ auto diff RBC M/uL 3.9 5.1 3.69 Low FINAL Lai Tolbert [facility] - [place], [address] [place] [id number] 0 Phone: () - 11/21 CBC w/ auto diff HCT % 35.0 48.0 35.6 FINAL Lia Tolbert [facility] - [place], [address] [place] [id number] 0 Phone: () - 11/21 CBC w/ auto diff MCV fL 80.0 104.0 96.5 FINAL Lia angelo [facility] - [place], [address] [place] [id number] 0 Phone: () - 11/21 CBC w/ auto diff MCH pg 26.0 35.0 32.0 FINAL Lia Tolbert [facility] - [place], [address] [place] [id number] 0 Phone: () - 11/21 CBC w/ auto diff MCHC g/dL 30.0 35.0 33.1 FINAL Lia Tolbert [facility] - [place], [address] [place] [id number] 0 Phone: () - 11/21 CBC w/ auto diff MPV fL 9.5 13.4 9.0 Low FINAL Lia angelo [facility] - [place], [address] [place] [id number] 0 Phone: () - 11/21 CBC w/ auto diff RDW % 11.4 16.1 12.40 FINAL Lia [place] [facility] [place], [address] [place] [id number] 0 Phone: () - 12/19 CBC w/ auto diff WBC K/uL 3.0 8.9 4.9 FINAL Oziel Tilleyot a [facility] - [place], [address] [place] [id number] 0 Phone: () - 12/19 CBC w/ auto diff HGB g/dL 11.3 15.2 11.8 FINAL Oziel [facility] - [place], [address] [place] [id number] 0 Phone: () - 12/19 CBC w/ auto diff PLT K/uL 113.0 364.0 218 FINAL Oziel [facility] - [place], [address] [place] [id number] 0 Phone: () - 12/19 CBC w/ auto diff Dave # (ANC) K/uL 1.6 6.6 2.7 FINAL Oziel Tilleyot gi [facility] - [place], [address] [place] [id number] 0 Phone: () - 12/19 CBC w/ auto diff Dave % % 43.0 74.0 55.3 FINAL Oziel angelo [facility] - [place], [address] [place] [id number] 0 Phone: () - 12/19 CBC w/ auto diff IG % % 0.0 0.5 0.2 FINAL Oziel [facility] - [place], [address] [place] [id number] 0 Phone: () - 12/19 CBC w/ auto diff IG # K/uL 0.0 0.03 0.01 FINAL Oziel [facility] - [place], [address] [place] [id number] 0 Phone: () - 12/19 CBC w/ auto diff LY % % 14.0 41.0 30.6 FINAL Oziel Tolbert [facility] - [place], [address] [place] [id number] 0 Phone: () - 12/19 CBC w/ auto diff MO % % 6.0 15.0 9.3 FINAL Oziel [facility] - [place], [address] [place] [id number] 0 Phone: () - 12/19 CBC w/ auto diff EO % % 0.0 7.0 4.0 FINAL Oziel [facility] - [place], [address] [place] [id number] 0 Phone: () - 12/19 CBC w/ auto diff BA % % 0.0 2.0 0.6 FINAL Oziel [facility] - [place], [address] [place] [id number] 0 Phone: () - 12/19 CBC w/ auto diff LY # K/uL 0.4 3.6 1.5 FINAL Oziel angelo [facility] - [place], [address] [place] [id number] 0 Phone: () - 12/19 CBC w/ auto diff MO # K/uL 0.2 1.3 0.5 FINAL Oziel angel[facility] - [place], [address] [place] [id number] 0 Phone: () - 12/19 CBC w/ auto diff EO # K/uL 0.0 0.6 0.2 FINAL Oziel angelo [facility] - [place], [address] [place] [id number] 0 Phone: () - 12/19 CBC w/ auto diff BA # K/uL 0.0 0.2 0.0 FINAL Oziel [facility] - [place], [address] [place] [id number] 0 Phone: () - 12/19 CBC w/ auto diff NRBC % #/100W BC 0.0 0.2 0.0 FINAL Oziel [facility] - [place], [address] [place] [id number] 0 Phone: () - 12/19 CBC w/ auto diff RBC M/uL 3.9 5.1 3.68 Low FINAL Oziel [facility] - [place], [address] [place] [id number] 0 Phone: () - 12/19 CBC w/ auto diff HCT % 35.0 48.0 35.3 FINAL Oziel [facility] - [place], [address] [place] [id number] 0 Phone: () - 12/19 CBC w/ auto diff MCV fL 80.0 104.0 95.9 FINAL [facility] - [place], [address] [place] [id number] 0 Phone: () - 12/19 CBC w/ auto diff MCH pg 26.0 35.0 32.1 FINAL Oziel [facility] - [place], [address] [place] [id number] 0 Phone: () - 12/19 CBC w/ auto diff MCHC g/dL 30.0 35.0 33.4 FINAL [facility] - [place], [address] [place] [id number] 0 Phone: () - 12/19 CBC w/ auto diff MPV fL 9.5 13.4 9.1 Low FINAL [facility] - [place], [address] [place] [id number] 0 Phone: () - 12/19 CBC w/ auto diff RDW % 11.4 16.1 13.30 FINAL [facility] [place], [address] [place] [id number] 0 Phone: () - 12/19 CMP Album in g/dL 3.2 5.2 4.0 FINAL Oziel angelo [facility], [address] [place] [address] [id number] 0 Phone: () - 12/19 CMP Alkal ine phosp hatas e U/L 46.0 116.0 58 FINAL Oziel angelo [facility], [address] [facility] 100 [facility] [id number] 0 Phone: () - 12/19 CMP ALT/S GPT U/L 7.0 40.0 13 FINAL Oziel angelo [facility] [address] [id number] 0 Phone: () - 12/19 CMP AST/S GOT U/L 13.0 40.0 24 FINAL Oziel angelo [facility] [address] [facility] [address] [id number] 0 Phone: () - 12/19 CMP BUN mg/dL 9.0 23.0 18 FINAL Oziel angelo [place] [address] [address] [facility] [address] [id number] 0 Phone: () - 12/19 CMP Calci um mg/dL 8.7 10.4 9.7 FINAL Oziel angelo [place] [address] [id number] 0 Phone: () - 12/19 CMP Chlor vipin mmol/L 96.0 114.0 111 FINAL Oziel angelo [place] [address] [address] [facility] [address] [phone] 0 Phone: () - 12/19 CMP CO2 [...] 96 hour stability window. FINAL Oziel angelo [facility], [address] [place] [address] [id number] 0 Phone: () - 12/19 CMP Creat inine mg/dL 0.5 1.2 0.82 FINAL Oziel angelo [facility] [address] [facility] [address] [id number] 0 Phone: () - 12/19 CMP GFR estim ate ml/min /1.73m ^2 75.6 GFR is calculate d using the CKD-EPI equation. FINAL Oziel angelo [place] [address] [id number] 0 Phone: () - 12/19 CMP Gluco se mg/dL 73.0 126.0 81 FINAL Oziel angelo [place] [address] [id number] 0 Phone: () - 12/19 CMP Potas sium mmol/L 3.5 5.1 4.4 FINAL Oziel angelo [place] [address] [id number] 0 Phone: () - 12/19 CMP Sodiu m mmol/L 136.0 145.0 144 FINAL Oziel angelo [place] [address] [id number] 0 Phone: () - 12/19 CMP Bilir ubin, total mg/dL 0.3 1.2 0.4 FINAL Ozeil angelo [place] [address] [id number] 0 Phone: () - 12/19 CMP Total prote in g/dL 5.7 8.2 6.3 FINAL Oziel angelo [place] [address] [id number] 0 Phone: () - 12/19 TSH w/ refle x to free T4 TSH uIU/ml 0.32 5.0 2.75 Test performed at [facility] on a Skemaz 2000 Immunoass ay Analyzer that uses an immunoenz ymometric sandwich assay for analysis. Patient testing should not be performed using multiple kathi amador due to analytica l variation seen between test kathi amador. FINAL Oziel angelo [place] [address] [id number] 0 Phone: () - 01/12 [facility] other lab See exterior work helper d 01/16 CMP Album in g/dL 3.2 5.2 4.3 FINAL Oziel angelo [facility], [address] [facility] [address] [id number] 0 Phone: () - 01/16 CMP Alkal ine phosp hatas e U/L 46.0 116.0 64 FINAL Oziel angelo [facility] [address] [facility] [address] [id number] 0 Phone: () - 01/16 CMP ALT/S GPT U/L 7.0 40.0 12 FINAL Oziel angelo [place] [address] [id number] 0 Phone: () - 01/16 CMP AST/S GOT U/L 13.0 40.0 23 FINAL Oziel angelo [place] [address] [address] [facility] [address] [id number] 0 Phone: () - 01/16 CMP BUN mg/dL 9.0 23.0 17 FINAL Oziel angelo [place] [address] [address] [facility] [address] [id number] 0 Phone: () - 01/16 CMP Calci um mg/dL 8.7 10.4 9.4 FINAL Oziel angelo [place] [address] [address] [facility] [address] [id number] 0 Phone: () - 01/16 CMP Chlor vipin mmol/L 96.0 114.0 108 FINAL Oziel angelo [place] [address] [address] [facility] [address] [id number] 0 Phone: () - 01/16 CMP CO2 [...] 96 hour stability window. FINAL Oziel angelo [facility], [address] [facility] [address] [id number] 0 Phone: () - 01/16 CMP Creat inine mg/dL 0.5 1.2 1.07 FINAL Oziel angelo [place] [address] [id number] 0 Phone: () - 01/16 CMP GFR estim ate ml/min /1.73m ^2 54.9 Low GFR is calculate d using the CKD-EPI equation. FINAL Oziel angelo [address] [phone] 0 Phone: () - 01/16 CMP Gluco se mg/dL 73.0 126.0 84 FINAL Oziel angelo [address] [id number] 0 Phone: () - 01/16 CMP Potas sium mmol/L 3.5 5.1 4.4 FINAL Oziel angelo [place] [address] [address] [facility] [address] [id number] 0 Phone: () - 01/16 CMP Sodiu m mmol/L 136.0 145.0 141 FINAL Oziel angelo [place] [address] [address] [facility] [address] [id number] 0 Phone: () - 01/16 CMP Bilir ubin, total mg/dL 0.3 1.2 0.4 FINAL Oziel angelo [place] [address] [id number] 0 Phone: () - 01/16 CMP Total prote in g/dL 5.7 8.2 6.6 FINAL Oziel angelo [place] [address] [address] [facility] [address] [id number] 0 Phone: () - 01/16 TSH w/ refle x to free T4 TSH uIU/ml 0.32 5.0 14.74 High Provider Alert. Notified Vicki by Lynne Flannery on 01/19/2022 at 2:55 PM.Test performed at [facility] on a DNAtriX Immunoass ay Analyzer that uses an immunoenz ymometric sandwich assay for analysis. Patient testing should not be performed using multiple methodharley amador due to analytica l variation seen between test methodharley amador. FINAL Oziel angelo [facility] [place], [address] [facility] [address] [place] [id number] 0 Phone: () - 01/16 T4, free panel T4, free ng/dL 0.7 1.8 0.75 Test performed at [facility] on a DNAtriX Immunoass ay Analyzer that uses an immunoenz ymometric sandwich assay for analysis. Patient testing should not be performed using multiple methodharley amador due to analytica l variation seen between test methodharley amador. FINAL [facility]iel angel[facility] - [place], [address] [facility] [address] [place] [id number] 0 Phone: () - 01/16 CBC w/ auto diff WBC K/uL 3.0 8.9 4.4 FINAL Oziel angel[facility] - [place], [address] [place] [address] [address] [facility] [place] [id number] 0 Phone: () - 01/16 CBC w/ auto diff HGB g/dL 11.3 15.2 11.9 FINAL [facility] - [place], [address] [place] [address] d [address] [facility] [place] [id number] 0 Phone: () - 01/16 CBC w/ auto diff PLT K/uL 113.0 364.0 231 FINAL [facility]iel [facility] - [place], [address] [place] [address] d [address] [facility] [place] [id number] 0 Phone: () - 01/16 CBC w/ auto diff Dave # (ANC) K/uL 1.6 6.6 2.4 FINAL [facility]iel [facility] - [place], [address] [place], [place] [address]et [facility] [address] [place] [id number] 0 Phone: () - 01/16 CBC w/ auto diff Dave % % 43.0 74.0 54.7 FINAL Oziel angel[facility] - [place], [address] [place] [address] d [address] [place] [id number] 0 Phone: () - 01/16 CBC w/ auto diff IG % % 0.0 0.5 0.2 FINAL [facility]iel [facility] - [place], [address] [place], [place] [address] [place] [id number] 0 Phone: () - 01/16 CBC w/ auto diff IG # K/uL 0.0 0.03 0.01 FINAL [facility] - [place], [address] [place] [id number] 0 Phone: () - 01/16 CBC w/ auto diff LY % % 14.0 41.0 31.8 FINAL [facility] [place], [address] [place] [id number] 0 Phone: () - 01/16 CBC w/ auto diff MO % % 6.0 15.0 8.9 FINAL [facility] [place], [address] [place] [id number] 0 Phone: () - 01/16 CBC w/ auto diff EO % % 0.0 7.0 3.9 FINAL [facility] [place], [address] [place] [id number] 0 Phone: () - 01/16 CBC w/ auto diff BA % % 0.0 2.0 0.5 FINAL [facility]iel [facility] - [place], [address] [place] [id number] 0 Phone: () - 01/16 CBC w/ auto diff LY # K/uL 0.4 3.6 1.4 FINAL [facility] - [place], [address] [place] [id number] 0 Phone: () - 01/16 CBC w/ auto diff MO # K/uL 0.2 1.3 0.4 FINAL [facility] - [place], [address] [place] [id number] 0 Phone: () - 01/16 CBC w/ auto diff EO # K/uL 0.0 0.6 0.2 FINAL [facility] - [place], [address] [place] [id number] 0 Phone: () - 01/16 CBC w/ auto diff BA # K/uL 0.0 0.2 0.0 FINAL [facility] - [place], [address] [place] [id number] 0 Phone: () - 01/16 CBC w/ auto diff NRBC % #/100W BC 0.0 0.2 0.0 FINAL [facility] - [place], [address] [place] [id number] 0 Phone: () - 01/16 CBC w/ auto diff RBC M/uL 3.9 5.1 3.69 Low FINAL Oziel [facility] - [place], [address] [place] [id number] 0 Phone: () - 01/16 CBC w/ auto diff HCT % 35.0 48.0 35.0 FINAL [facility] - [place], [address] [place] [id number] 0 Phone: () - 01/16 CBC w/ auto diff MCV fL 80.0 104.0 94.9 FINAL Oziel angel[facility] - [place], [address] [place] [id number] 0 Phone: () - 01/16 CBC w/ auto diff MCH pg 26.0 35.0 32.2 FINAL [facility] - [place], [address] [place] [id number] 0 Phone: () - 01/16 CBC w/ auto diff MCHC g/dL 30.0 35.0 34.0 FINAL [facility] - [place], [address] [place] [id number] 0 Phone: () - 01/16 CBC w/ auto diff MPV fL 9.5 13.4 8.8 Low FINAL [facility] - [place], [address] [place] [id number] 0 Phone: () - 01/16 CBC w/ auto diff RDW % 11.4 16.1 13.90 FINAL Oziel angel[facility] - [place], [address] [facility] [address] [place] [id number] 0 Phone: () - 02/20 TSH w/ refle x to free T4 TSH uIU/ml 0.32 5.0 Sent to Referen ce Lab. Hard copy results availab le only. Test performed at [facility] on a Skemaz 2000 Immunoass ay Analyzer that uses an immunoenz ymometric sandwich assay for analysis. Patient testing should not be performed using multiple methodharley amador due to analytica l variation seen between test methodharley amador. FINAL Oziel angelo [facility] - [place], [address] [facility] [id number] 0 Phone: () - 02/20 TSH uIU/mL 0.35 4.94 8.74 High In Adults, TSH values between 5.00 and 10.00 uIU/ml do notnecess arily indicate the presence of Hypothyro idism.Cor relation with clinical findings such as presence of goiterand /or Thyropero xidase (TPO) Antibody may be helpful. Formore informati on please refer to MAYELA 2004; 291: 228-238.T est Performed by:[facility] [address] - [place], [place] [address]Luxp e : FINAL Oziel Box 02/20 T4, free panel T4, free ng/dL 0.7 1.8 1.01 Test Performed by:[facility] [address] - [facility] [address]Lvca e [phone] FINAL Oziel Box 05/08 CBC w/ auto diff WBC K/uL 3.0 8.9 7.3 FINAL Oziel angel[facility] - [place], [address] [facility] [address] [facility] [id number] 0 Phone: () - 05/08 CBC w/ auto diff HGB g/dL 11.3 15.2 11.0 Low FINAL [facility] - [place], [address] [place] [id number] 0 Phone: () - 05/08 CBC w/ auto diff PLT K/uL 113.0 364.0 210 FINAL [facility] - [place], [address] [place] [id number] 0 Phone: () - 05/08 CBC w/ auto diff Dave # (ANC) K/uL 1.6 6.6 3.7 FINAL [facility] - [place], [address] [place] [id number] 0 Phone: () - 05/08 CBC w/ auto diff Dave % % 43.0 74.0 51.1 FINAL [facility] - [place], [address] [place] [id number] 0 Phone: () - 05/08 CBC w/ auto diff IG % % 0.0 0.5 0.3 FINAL [facility] - [place], [address] [place] [id number] 0 Phone: () - 05/08 CBC w/ auto diff IG # K/uL 0.0 0.03 0.02 FINAL [facility] - [place], [address] [place] [id number] 0 Phone: () - 05/08 CBC w/ auto diff LY % % 14.0 41.0 37.9 FINAL [facility] - [place], [address] [place] [id number] 0 Phone: () - 05/08 CBC w/ auto diff MO % % 6.0 15.0 9.2 FINAL [facility] - [place], [address] [place] [id number] 0 Phone: () - 05/08 CBC w/ auto diff EO % % 0.0 7.0 1.2 FINAL [facility] - [place], [address] [place] [id number] 0 Phone: () - 05/08 CBC w/ auto diff BA % % 0.0 2.0 0.3 FINAL [facility] - [place], [address] [place] [id number] 0 Phone: () - 05/08 CBC w/ auto diff LY # K/uL 0.4 3.6 2.8 FINAL [facility] - [place], [address] [place] [id number] 0 Phone: () - 05/08 CBC w/ auto diff MO # K/uL 0.2 1.3 0.7 FINAL [facility] - [place], [address] [place] [id number] 0 Phone: () - 05/08 CBC w/ auto diff EO # K/uL 0.0 0.6 0.1 FINAL [facility] - [place], [address] [place] [id number] 0 Phone: () - 05/08 CBC w/ auto diff BA # K/uL 0.0 0.2 0.0 FINAL [facility] - [place], [address] [place] [id number] 0 Phone: () - 05/08 CBC w/ auto diff NRBC % #/100W BC 0.0 0.2 0.0 FINAL [facility] - [place], [address] [place] [id number] 0 Phone: () - 05/08 CBC w/ auto diff RBC M/uL 3.9 5.1 3.27 Low FINAL [facility] - [place], [address] [place] [id number] 0 Phone: () - 05/08 CBC w/ auto diff HCT % 35.0 48.0 32.1 Low FINAL [facility] - [place], [address] [place] [id number] 0 Phone: () - 05/08 CBC w/ auto diff MCV fL 80.0 104.0 98.2 FINAL Oziel angelo [facility] - [place], [address] [place] [id number] 0 Phone: () - 05/08 CBC w/ auto diff MCH pg 26.0 35.0 33.6 FINAL Oziel angelo [facility] - [place], [address] [place] [id number] 0 Phone: () - 05/08 CBC w/ auto diff MCHC g/dL 30.0 35.0 34.3 FINAL Oziel angel[facility] - [place], [address] [place] [id number] 0 Phone: () - 05/08 CBC w/ auto diff MPV fL 9.5 13.4 9.4 Low FINAL Oziel angel[facility] - [place], [address] [place] [id number] 0 Phone: () - 05/08 CBC w/ auto diff RDW % 11.4 16.1 13.10 FINAL Oziel angelo [facility] - [place], [address] [place] [id number] 0 Phone: () - 05/08 CMP Album in g/dL 3.2 5.2 4.0 FINAL Oziel angelo [facility] - [place], [address] [place] [id number] 0 Phone: () - 05/08 CMP Alkal ine phosp hatas e U/L 46.0 116.0 56 FINAL Oziel angelo [facility] - [place], [address] [place] [id number] 0 Phone: () - 05/08 CMP ALT/S GPT U/L 7.0 40.0 17 FINAL Oziel angelo [facility], [address] [facility] [address] [id number] 0 Phone: () - 05/08 CMP AST/S GOT U/L 13.0 40.0 21 FINAL Oziel angelo [facility] [address] [facility] 100 [facility] [id number] 0 Phone: () - 05/08 CMP BUN mg/dL 9.0 23.0 22 FINAL Oziel angelo [place] [address] [id number] 0 Phone: () - 05/08 CMP Calci um mg/dL 8.7 10.4 9.3 FINAL Oziel angelo [place] [address] [id number] 0 Phone: () - 05/08 CMP Chlor vipin mmol/L 96.0 114.0 112 FINAL Oziel angelo [place] [address] [id number] 0 Phone: () - 05/08 CMP CO2 [...] 96 hour stability window. FINAL Oziel angelo [place] [address] [id number] 0 Phone: () - 05/08 CMP Creat inine mg/dL 0.5 1.2 0.86 FINAL Oziel angelo [place] [address] [id number] 0 Phone: () - 05/08 CMP GFR estim ate ml/min /1.73m ^2 71.2 GFR is calculate d using the CKD-EPI equation. FINAL Oziel angelo [facility], [facility] [address] [id number] 0 Phone: () - 05/08 CMP Gluco se mg/dL 73.0 126.0 77 FINAL Oziel angelo [facility], [address] [facility] 100 [facility] [id number] 0 Phone: () - 05/08 CMP Potas sium mmol/L 3.5 5.1 3.9 FINAL Oziel angelo [facility], [address] [facility] 100 [facility] [id number] 0 Phone: () - 05/08 CMP Sodiu m mmol/L 136.0 145.0 148 High FINAL Oziel angelo [facility] [address] [facility] 100 [facility] [id number] 0 Phone: () - 05/08 CMP Bilir ubin, total mg/dL 0.3 1.2 0.4 FINAL Oziel angelo [facility] [address] [facility] 100 [facility] [id number] 0 Phone: () - 05/08 CMP Total prote in g/dL 5.7 8.2 6.1 FINAL Oziel angelo [facility] [address] [facility] 100 [facility] [id number] 0 Phone: () - 05/08 TSH w/ refle x to free T4 TSH uIU/ml 0.32 5.0 1.36 Test performed at [facility] on a DNAtriX Immunoass ay Analyzer that uses an immunoenz ymometric sandwich assay for analysis. Patient testing should not be performed using multiple methodolo gies due to analytica l variation seen between test methodolo gies. FINAL Oziel angelo [facility], [address] [facility] 100 [facility] [id number] 0 Phone: () - 07/23 [facility] other lab See exterior work helper d 07/23 [facility] other lab See exterior work helper d 11/03 CBC w/ auto diff WBC K/uL 3.0 8.9 4.7 FINAL Oziel angelo [facility] [place], [address] [facility] [id number] 0 Phone: () - 11/03 CBC w/ auto diff HGB g/dL 11.3 15.2 11.6 FINAL Oziel angelo [facility] - [place], [address] [place] [id number] 0 Phone: () - 11/03 CBC w/ auto diff PLT K/uL 113.0 364.0 248 FINAL [facility]iel [facility] - [place], [address] [place] [id number] 0 Phone: () - 11/03 CBC w/ auto diff Dave # (ANC) K/uL 1.6 6.6 2.9 FINAL [facility] - [place], [address] [place] [id number] 0 Phone: () - 11/03 CBC w/ auto diff Dave % % 43.0 74.0 60.9 FINAL Oziel Tolbert [facility] - [place], [address] [place] [id number] 0 Phone: () - 11/03 CBC w/ auto diff IG % % 0.0 0.5 0.4 FINAL Oziel [facility] - [place], [address] [place] [id number] 0 Phone: () - 11/03 CBC w/ auto diff IG # K/uL 0.0 0.03 0.02 FINAL [facility] - [place], [address] [place] [id number] 0 Phone: () - 11/03 CBC w/ auto diff LY % % 14.0 41.0 26.8 FINAL [facility] - [place], [address] [place] [id number] 0 Phone: () - 11/03 CBC w/ auto diff MO % % 6.0 15.0 8.5 FINAL [facility] - [place], [address] [place] [id number] 0 Phone: () - 11/03 CBC w/ auto diff EO % % 0.0 7.0 3.0 FINAL [facility] - [place], [address] [place] [id number] 0 Phone: () - 11/03 CBC w/ auto diff BA % % 0.0 2.0 0.4 FINAL Oziel [facility] - [place], [address] [place] [id number] 0 Phone: () - 11/03 CBC w/ auto diff LY # K/uL 0.4 3.6 1.3 FINAL Oziel Tolbert [facility] - [place], [address] [place] [id number] 0 Phone: () - 11/03 CBC w/ auto diff MO # K/uL 0.2 1.3 0.4 FINAL Oziel [facility] - [place], [address] [place] [id number] 0 Phone: () - 11/03 CBC w/ auto diff EO # K/uL 0.0 0.6 0.1 FINAL Oziel angelo [facility] - [place], [address] [place] [id number] 0 Phone: () - 11/03 CBC w/ auto diff BA # K/uL 0.0 0.2 0.0 FINAL Oziel angelo [facility] - [place], [address] [place] [id number] 0 Phone: () - 11/03 CBC w/ auto diff NRBC % #/100W BC 0.0 0.2 0.0 FINAL Oziel [facility] - [place], [address] [place] [id number] 0 Phone: () - 11/03 CBC w/ auto diff RBC M/uL 3.9 5.1 3.52 Low FINAL Oziel Tolbert [facility] - [place], [address] [place] [id number] 0 Phone: () - 11/03 CBC w/ auto diff HCT % 35.0 48.0 34.2 Low FINAL Oziel [facility] [place] [facility] - [place], [address] [place] [id number] 0 Phone: () - 11/03 CBC w/ auto diff MCV fL 80.0 104.0 97.2 FINAL Oziel angelo [facility] - [place], [address] [place] [id number] 0 Phone: () - 11/03 CBC w/ auto diff MCH pg 26.0 35.0 33.0 FINAL Oziel angelo [facility] - [place], [address] [place] [id number] 0 Phone: () - 11/03 CBC w/ auto diff MCHC g/dL 30.0 35.0 33.9 FINAL Oziel angelo [facility] - [place], [address] [place] [id number] 0 Phone: () - 11/03 CBC w/ auto diff MPV fL 9.5 13.4 8.7 Low FINAL Oziel angelo [facility] - [place], [address] [place] [id number] 0 Phone: () - 11/03 CBC w/ auto diff RDW % 11.4 16.1 14.40 FINAL Oziel angelo [facility] - [place], [address] [place] [id number] 0 Phone: () - 11/03 CMP Album in g/dL 3.2 5.2 4.1 FINAL Oziel angelo [facility] - [place], [address] [place] [id number] 0 Phone: () - 11/03 CMP Alkal ine phosp hatas e U/L 46.0 116.0 59 FINAL Oziel angelo [facility] - [place], [address] [place] [id number] 0 Phone: () - 11/03 CMP ALT/S GPT U/L 7.0 40.0 <7 FINAL Oziel angelo [facility] [place], [address] [place] [id number] 0 Phone: () - 11/03 CMP AST/S GOT U/L 13.0 40.0 24 FINAL Oziel angelo [place] [address] [id number] 0 Phone: () - 11/03 CMP BUN mg/dL 9.0 23.0 16.0 FINAL Oziel angelo [place] [address] [address] [facility] [address] [id number] 0 Phone: () - 11/03 CMP Calci um mg/dL 8.7 10.4 9.1 FINAL Oziel angelo [place] [address] [id number] 0 Phone: () - 11/03 CMP Chlor vipin mmol/L 96.0 114.0 105 FINAL Oziel angelo [place] [address] [id number] 0 Phone: () - 11/03 CMP CO2 [...] 96 hour stability window. FINAL Oziel angelo [place] [address] [id number] 0 Phone: () - 11/03 CMP Creat inine mg/dL 0.5 1.2 0.88 FINAL Oziel angelo [place] [address] [id number] 0 Phone: () - 11/03 CMP GFR estim ate ml/min /1.73m ^2 69.0 GFR is calculate d using the CKD-EPI equation. FINAL Oziel angelo [place] [address] [id number] 0 Phone: () - 11/03 CMP Gluco se mg/dL 73.0 126.0 105 FINAL Oziel angelo [place] [address] [address] [facility] 100 [facility] [id number] 0 Phone: () - 11/03 CMP Potas sium mmol/L 3.5 5.1 4.4 FINAL Oziel angelo On[facility], [address] [facility] [id number] 0 Phone: () - 11/03 CMP Sodiu m mmol/L 136.0 145.0 139 FINAL Oziel angelo On[facility], [address] [facility] [id number] 0 Phone: () - 11/03 CMP Bilir ubin, total mg/dL 0.3 1.2 0.6 FINAL Oziel angelo [facility], [address] [facility] [id number] 0 Phone: () - 11/03 CMP Total prote in g/dL 5.7 8.2 6.6 FINAL Oziel angelo Oncology [facility], [address] [facility] [id number] 0 Phone: () - 02/08 CBC w/ auto diff WBC K/uL 3.0 8.9 4.7 FINAL Oziel angelo Oncology - [place], [address] [facility] [id number] 0 Phone: () - 02/08 CBC w/ auto diff HGB g/dL 11.3 15.2 11.0 Low FINAL Oziel angelo Oncology - [place], [address] [facility] [id number] 0 Phone: () - 02/08 CBC w/ auto diff PLT K/uL 113.0 364.0 194 FINAL Oziel angelo Oncology - [place], [address] [facility] [place] [id number] 0 Phone: () - 02/08 CBC w/ auto diff Dave # (ANC) K/uL 1.6 6.6 2.7 FINAL Oziel angelo Oncology - [place], [address] [facility] [place] [id number] 0 Phone: () - 02/08 CBC w/ auto diff Dave % % 43.0 74.0 57.2 FINAL Oziel Tilleyot a On[facility] - [place], [address] [place] [id number] 0 Phone: () - 02/08 CBC w/ auto diff IG % % 0.0 0.5 0.4 FINAL Oziel Tilleyot a Oncology - [place], [address] [place] [id number] 0 Phone: () - 02/08 CBC w/ auto diff IG # K/uL 0.0 0.03 0.02 FINAL Oziel Tilleyot a On[facility] - [place], [address] [place] [id number] 0 Phone: () - 02/08 CBC w/ auto diff LY % % 14.0 41.0 31.6 FINAL Oziel Tilleyot a On[facility] - [place], [address] [place] [id number] 0 Phone: () - 02/08 CBC w/ auto diff MO % % 6.0 15.0 8.0 FINAL Oziel Tilleyot a On[facility] - [place], [address] [place] [id number] 0 Phone: () - 02/08 CBC w/ auto diff EO % % 0.0 7.0 2.2 FINAL Oziel Tilleyot a On[facility] - [place], [address] [place] [id number] 0 Phone: () - 02/08 CBC w/ auto diff BA % % 0.0 2.0 0.6 FINAL Oziel Tilleyot a [facility] - [place], [address] [place] [id number] 0 Phone: () - 02/08 CBC w/ auto diff LY # K/uL 0.4 3.6 1.5 FINAL Oziel Tilleyot a On[facility] - [place], [address] [place] [id number] 0 Phone: () - 02/08 CBC w/ auto diff MO # K/uL 0.2 1.3 0.4 FINAL Oziel Tilleyot a [facility] - [place], [address] [place] [id number] 0 Phone: () - 02/08 CBC w/ auto diff EO # K/uL 0.0 0.6 0.1 FINAL Oziel Tilleyot a On[facility] - [place], [address] [place] [id number] 0 Phone: () - 02/08 CBC w/ auto diff BA # K/uL 0.0 0.2 0.0 FINAL Oziel Tilleyot a On[facility] - [place], [address] [place] [id number] 0 Phone: () - 02/08 CBC w/ auto diff NRBC % #/100W BC 0.0 0.2 0.0 FINAL Oziel Tilleyot gi Oncology - [place], [address] [place] [id number] 0 Phone: () - 02/08 CBC w/ auto diff RBC M/uL 3.9 5.1 3.26 Low FINAL Oziel angelo Oncology - [place], [address] [place] [id number] 0 Phone: () - 02/08 CBC w/ auto diff HCT % 35.0 48.0 32.9 Low FINAL Oziel Tilleyot gi Oncology - [place], [address] [place] [id number] 0 Phone: () - 02/08 CBC w/ auto diff MCV fL 80.0 104.0 100.9 FINAL Oziel Tilleyot a On[facility] - [place], [address] [place] [id number] 0 Phone: () - 02/08 CBC w/ auto diff MCH pg 26.0 35.0 33.7 FINAL Oziel Tilleyot a Oncology - [place], [address] [place] [id number] 0 Phone: () - 02/08 CBC w/ auto diff MCHC g/dL 30.0 35.0 33.4 FINAL [facility] [address] [facility] [address] [facility] [place] [id number] 0 Phone: () - 02/08 CBC w/ auto diff MPV fL 9.5 13.4 9.0 Low FINAL [facility]iel [facility], [address] [facility] [place] [id number] 0 Phone: () - 02/08 CBC w/ auto diff RDW % 11.4 16.1 13.70 FINAL Oziel angelo [facility] [address] [place] [address] d [address] [facility] [place] [id number] 0 Phone: () - 02/08 TSH w/ refle x to free T4 TSH uIU/ml 0.32 5.0 3.61 Test performed at [facility] on a DNAtriX Immunoass ay Analyzer that uses an immunoenz ymometric sandwich assay for analysis. Patient testing should not be performed using multiple methodolo ginaun due to analytica l variation seen between test methodharley amador. FINAL Oziel angelo [facility], [address] [place] [address] [id number] 0 Phone: () - 02/08 CMP Album in g/dL 3.2 5.2 4.0 FINAL Oziel angelo [facility], [address] [place] [address] [id number] 0 Phone: () - 02/08 CMP Alkal ine phosp hatas e U/L 46.0 116.0 83 FINAL Oziel angelo [facility], [address] [facility] [id number] 0 Phone: () - 02/08 CMP ALT/S GPT U/L 7.0 40.0 <7 FINAL Oziel angelo [facility], [address] [facility] [id number] 0 Phone: () - 02/08 CMP AST/S GOT U/L 13.0 40.0 23 FINAL Oziel angelo [facility], [address] [facility] [id number] 0 Phone: () - 02/08 CMP BUN mg/dL 9.0 23.0 17.0 FINAL Oziel angelo [place] [address] [address] [facility] 100 [facility] [id number] 0 Phone: () - 02/08 CMP Calci um mg/dL 8.7 10.4 8.8 FINAL Oziel angelo [place] [address] [id number] 0 Phone: () - 02/08 CMP Chlor vipin mmol/L 96.0 114.0 109 FINAL Oziel angelo [place] [address] [id number] 0 Phone: () - 02/08 CMP CO2 [...] 96 hour stability window. FINAL Oziel angelo [place] [address] [id number] 0 Phone: () - 02/08 CMP Creat inine mg/dL 0.5 1.2 0.86 FINAL Oziel angelo [place] [address] [id number] 0 Phone: () - 02/08 CMP GFR estim ate ml/min /1.73m ^2 70.9 GFR is calculate d using the CKD-EPI equation. FINAL Oziel angelo [place] [address] [id number] 0 Phone: () - 02/08 CMP Gluco se mg/dL 73.0 126.0 84 FINAL Oziel angelo [place] [address] [id number] 0 Phone: () - 02/08 CMP Potas sium mmol/L 3.5 5.1 4.5 FINAL Oziel angelo [facility], [address] [facility] [id number] 0 Phone: () - 02/08 CMP Sodiu m mmol/L 136.0 145.0 141 FINAL Oziel Tolbert a [facility], [address] [facility] [id number] 0 Phone: () - 02/08 CMP Bilir ubin, total mg/dL 0.3 1.2 0.3 FINAL Oziel Tolbert a [facility], [address] [facility] [id number] 0 Phone: () - 02/08 CMP Total prote in g/dL 5.7 8.2 6.1 FINAL Oziel angelo [facility], [address] [facility] [id number] 0 Phone: () - 06/06 Misc other lab See exterior work helper d 08/09 CMP Album in g/dL 3.5 5.0 4.1 FINAL Oziel Tilleyot [facility], [address] [id number] 0 08/09 CMP Alkal ine phosp hatas e U/L 36.0 125.0 66 FINAL Oziel Tilleyot [facility], [address] [facility] [id number] 0 08/09 CMP ALT/S GPT U/L 0.0 34.0 6 FINAL Oziel Tilleyot [facility], [address] [facility] [id number] 0 08/09 CMP AST/S GOT U/L 14.0 36.0 28 FINAL [facility], [address] [facility] [id number] 0 08/09 CMP BUN mg/dL 7.0 17.0 17.0 FINAL Oziel Tilleyot [facility], [address] [facility] [id number] 0 08/09 CMP Calci um mg/dL 8.4 10.2 9.4 FINAL Oziel Tilleyot [facility], [address] [id number] 0 08/09 CMP Chlor vipin mmol/L 96.0 107.0 106 FINAL [facility] [address] [id number] 0 08/09 CMP CO2 mmol/L 22.0 30.0 [...] the 96 hour stability window. FINAL [facility], [address] [id number] 0 08/09 CMP Creat inine mg/dL 0.66 1.25 0.70 FINAL Oziel angelo [facility], [address] [facility] [address] [id number] 0 08/09 CMP GFR estim ate ml/min /1.73m ^2 90.4 GFR is calculate d using the CKD-EPI equation. FINAL [facility], [address] [id number] 0 08/09 CMP Gluco se mg/dL 74.0 100.0 87 FINAL Oziel Tilleyot a [facility], [address] [facility] [id number] 0 08/09 CMP Potas sium mmol/L 3.5 5.1 4.2 FINAL Oziel Box * [place] [facility] [place], [address] [facility] [id number] 0 08/09 CMP Sodiu m mmol/L 137.0 145.0 139 FINAL Oziel Box * [place] [facility] [place], [address] [facility] [id number] 0 08/09 CMP Bilir ubin, total mg/dL 0.2 1.3 0.3 FINAL Oziel Box * [place] [facility], [address] [facility] [id number] 0 08/09 CMP Total prote in g/dL 6.3 8.2 6.7 FINAL Oziel Box * [place] [facility], [address] [facility] [id number] 0 08/09 CBC w/ auto diff WBC K/uL 3.0 8.9 3.5 FINAL Oziel Tilleyot a On[facility] - [place], [address] [place] [facility] [id number] 0 Phone: () - 08/09 CBC w/ auto diff HGB g/dL 11.3 15.2 11.7 FINAL Oziel Tilleyot a On[facility] - [place], [address] [place] [id number] 0 Phone: () - 08/09 CBC w/ auto diff PLT K/uL 113.0 364.0 196 FINAL Oziel Tilleyot a [facility] - [place], [address] [place] [id number] 0 Phone: () - 08/09 CBC w/ auto diff Dave # (ANC) K/uL 1.6 6.6 1.9 FINAL Oziel Tilleyot a On[facility] - [place], [address] [place] [id number] 0 Phone: () - 08/09 CBC w/ auto diff Dave % % 43.0 74.0 52.2 FINAL Oziel Tilleyot a [facility] - [place], [address] [place] [id number] 0 Phone: () - 08/09 CBC w/ auto diff IG % % 0.0 0.5 0.3 FINAL Oziel Tilleyot a [facility] - [place], [address] [place] [id number] 0 Phone: () - 08/09 CBC w/ auto diff IG # K/uL 0.0 0.03 0.01 FINAL Oziel Tilleyot a On[facility] - [place], [address] [place] [id number] 0 Phone: () - 08/09 CBC w/ auto diff LY % % 14.0 41.0 35.0 FINAL Oziel Tilleyot a [facility] - [place], [address] [place] [id number] 0 Phone: () - 08/09 CBC w/ auto diff MO % % 6.0 15.0 9.6 FINAL Oziel Tilleyot a [facility] - [place], [address] [place] [id number] 0 Phone: () - 08/09 CBC w/ auto diff EO % % 0.0 7.0 2.3 FINAL Oziel Tilleyot a [facility] - [place], [address] [place] [id number] 0 Phone: () - 08/09 CBC w/ auto diff BA % % 0.0 2.0 0.6 FINAL Oziel Tilleyot a [facility] - [place], [address] [place] [id number] 0 Phone: () - 08/09 CBC w/ auto diff LY # K/uL 0.4 3.6 1.2 FINAL Oziel Tilleyot a [facility] - [place], [address] [place] [id number] 0 Phone: () - 08/09 CBC w/ auto diff MO # K/uL 0.2 1.3 0.3 FINAL Oziel angelo Oncology - [place], [address] [place] [id number] 0 Phone: () - 08/09 CBC w/ auto diff EO # K/uL 0.0 0.6 0.1 FINAL Oziel Tilleyot gi Oncology - [place], [address] [place] [id number] 0 Phone: () - 08/09 CBC w/ auto diff BA # K/uL 0.0 0.2 0.0 FINAL Oziel Tilleyot a [facility] - [place], [address] [place] [id number] 0 Phone: () - 08/09 CBC w/ auto diff NRBC % #/100W BC 0.0 0.2 0.0 FINAL Oziel angelo On[facility] - [place], [address] [place] [id number] 0 Phone: () - 08/09 CBC w/ auto diff RBC M/uL 3.9 5.1 3.51 Low FINAL Oziel angelo Oncology - [place], [address] [place] [id number] 0 Phone: () - 08/09 CBC w/ auto diff HCT % 35.0 48.0 35.6 FINAL Oziel angelo On[facility] - [place], [address] [place] [id number] 0 Phone: () - 08/09 CBC w/ auto diff MCV fL 80.0 104.0 101.4 FINAL Oziel Tilleyot a [facility] - [place], [address] [place] [id number] 0 Phone: () - 08/09 CBC w/ auto diff MCH pg 26.0 35.0 33.3 FINAL Oziel Tilleyot a [facility] - [place], [address] [place] [id number] 0 Phone: () - 08/09 CBC w/ auto diff MCHC g/dL 30.0 35.0 32.9 FINAL Oziel Tilleyot a [facility] - [place], [address] [place] [id number] 0 Phone: () - 08/09 CBC w/ auto diff MPV fL 9.5 13.4 9.3 Low FINAL Oziel Tilleyot a [facility] - [place], [address] [place] [id number] 0 Phone: () - 08/09 CBC w/ auto diff RDW % 11.4 16.1 13.20 FINAL Oziel Tilleyot a On[facility] - [place], [address] [place] [id number] 0 Phone: () - 08/09 TSH w/ refle x to free T4 TSHR- v mIU/ml 0.47 4.68 0.74 FINAL Oziel Box * [place] [facility] [place], [address] [facility] [place] [id number] 0 02/13 CBC w/ auto diff WBC K/uL 3.0 8.9 4.7 FINAL Oziel FREEMAN On[facility] - [place], [address] [place] [id number] 0 02/13 CBC w/ auto diff HGB g/dL 11.3 15.2 10.4 Low FINAL Oziel FREEMAN [facility] - [place], [address] [place] [id number] 0 02/13 CBC w/ auto diff PLT K/uL 113.0 364.0 252 FINAL Oziel FREEMAN [facility] - [place], [address] [place] [id number] 0 02/13 CBC w/ auto diff Dave # (ANC) K/uL 1.6 6.6 2.4 FINAL Oziel FREEMAN [facility] - [place], [address] [place] [id number] 0 02/13 CBC w/ auto diff Dave % % 43.0 74.0 51.3 FINAL Oziel FREEMAN On[facility] - [place], [address] [place] [id number] 0 02/13 CBC w/ auto diff IG % % 0.0 0.5 0.2 FINAL Oziel FREEMAN [facility] - [place], [address] [place] [id number] 0 02/13 CBC w/ auto diff IG # K/uL 0.0 0.03 0.01 FINAL Oziel FREEMAN On[facility] - [place], [address] [place] [id number] 0 02/13 CBC w/ auto diff LY % % 14.0 41.0 33.5 FINAL Oziel FREEMAN On[facility] - [place], [address] [place] [id number] 0 02/13 CBC w/ auto diff MO % % 6.0 15.0 8.8 FINAL Oziel FREEMAN [facility] - [place], [address] [place] [id number] 0 02/13 CBC w/ auto diff EO % % 0.0 7.0 5.6 FINAL Oziel FREEMAN [facility] - [place], [address] [place] [id number] 0 02/13 CBC w/ auto diff BA % % 0.0 2.0 0.6 FINAL Oziel FREEMAN On[facility] - [place], [address] [place] [id number] 0 02/13 CBC w/ auto diff LY # K/uL 0.4 3.6 1.6 FINAL Oziel FREEMAN [facility] - [place], [address] [place] [id number] 0 02/13 CBC w/ auto diff MO # K/uL 0.2 1.3 0.4 FINAL Oziel FREEMAN [facility] - [place], [address] [place] [id number] 0 02/13 CBC w/ auto diff EO # K/uL 0.0 0.6 0.3 FINAL Oziel FREEMAN [facility] - [place], [address] [place] [id number] 0 02/13 CBC w/ auto diff BA # K/uL 0.0 0.2 0.0 FINAL Oziel FREEMAN [facility] - [place], [address] [place] [id number] 0 02/13 CBC w/ auto diff NRBC % #/100W BC 0.0 0.2 0.0 FINAL Oziel FREEMAN [facility] - [place], [address] [place] [id number] 0 02/13 CBC w/ auto diff RBC M/uL 3.9 5.1 3.24 Low FINAL Oziel FREEMAN [facility] - [place], [address] [place] [id number] 0 02/13 CBC w/ auto diff HCT % 35.0 48.0 32.3 Low FINAL Oziel FREEMAN [facility] - [place], [address] [place] [id number] 0 02/13 CBC w/ auto diff MCV fL 80.0 104.0 99.7 FINAL Oziel FREEMAN [facility] - [place], [address] [place] [id number] 0 02/13 CBC w/ auto diff MCH pg 26.0 35.0 32.1 FINAL Oziel FREEMAN [facility] - [place], [address] [place] [id number] 0 02/13 CBC w/ auto diff MCHC g/dL 30.0 35.0 32.2 FINAL Oziel FREEMAN [facility] - [place], [address] [place] [id number] 0 02/13 CBC w/ auto diff MPV fL 9.5 13.4 9.1 Low FINAL Oziel FREEMAN On[facility] - [place], [address] [place] [id number] 0 02/13 CBC w/ auto diff RDW % 11.4 16.1 13.70 FINAL Oziel FREEMAN [facility] - [place], [address] [place] [id number] 0 02/13 CMP Album in g/dL 3.5 5.0 3.5 FINAL Oziel Box * [place] [facility] [place], [address] [facility] [id number] 0 02/13 CMP Alkal ine phosp hatas e U/L 36.0 125.0 75 FINAL Oziel Box * [place] [facility] [place], [address] [facility] [id number] 0 02/13 CMP ALT/S GPT U/L 0.0 34.0 <4 Repeate d FINAL Oziel Box * [place] [facility] [place], [address] [facility] [id number] 0 02/13 CMP AST/S GOT U/L 14.0 36.0 17 FINAL Oziel Card [place] [facility] [place], [address] [facility] [id number] 0 02/13 CMP BUN mg/dL 7.0 17.0 18.0 High FINAL Oziel Card [place] [facility], [address] [facility] [id number] 0 02/13 CMP Calci um mg/dL 8.4 10.2 9.2 FINAL [place] Card [place] [facility], [address] [facility] [id number] 0 02/13 CMP Chlor vipin mmol/L 96.0 107.0 109 High FINAL [place] Card [place] [facility], [address] [facility] [id number] 0 02/13 CMP CO2 mmol/L 22.0 30.0 [...] 96 hour stability window. FINAL [place] Card [place] [facility], [address] [facility] [id number] 0 02/13 CMP Creat inine mg/dL 0.66 1.25 0.80 FINAL [place] Card [place] [facility], [address] [facility] [id number] 0 02/13 CMP GFR estim ate ml/min /1.73m ^2 76.8 GFR is calculate d using the CKD-EPI equation. FINAL [place] Card [place] [facility], [address] [facility] [id number] 0 02/13 CMP Gluco se mg/dL 74.0 100.0 84 FINAL Oziel Box * [place] [facility] [place], [address] [facility] [id number] 0 02/13 CMP Potas sium mmol/L 3.5 5.1 4.4 FINAL Oziel Box * [place] [facility] [place], [address] [facility] [id number] 0 02/13 CMP Sodiu m mmol/L 137.0 145.0 137 FINAL Oziel Box * [place] [facility] [place], [address] [facility] [id number] 0 02/13 CMP Bilir ubin, total mg/dL 0.2 1.3 0.5 FINAL Oziel Box * [place] [facility] [place], [address] [facility] [id number] 0 02/13 CMP Total prote in g/dL 6.3 8.2 6.2 Low FINAL Oziel Box * [place] [facility] [place], [address] [facility] [id number] 0 04/03 [facility] other lab See exterior work helper d 08/14 CMP Album in g/dL 3.5 5.0 3.7 FINAL Oziel Box * [place] [facility] [place] [facility] , [address] [facility] [id number] 0 08/14 CMP Alkal ine phosp hatas e U/L 36.0 125.0 68 FINAL Oziel Box * [place] [facility] [place] [facility] , [address] [facility] [id number] 0 08/14 CMP ALT/S GPT U/L 0.0 34.0 10 FINAL Oziel Box * [place] [facility] , [address] [facility] [id number] 0 08/14 CMP AST/S GOT U/L 14.0 36.0 28 FINAL Oziel Box * [facility] , [address] [facility] [address] [facility] [id number] 0 08/14 CMP BUN mg/dL 7.0 17.0 25.0 High FINAL Oziel Box * [facility] , [address] [facility] [id number] 0 08/14 CMP Calci um mg/dL 8.4 10.2 8.7 FINAL Oziel Box * [facility] , [address] [id number] 0 08/14 CMP Chlor vipin mmol/L 96.0 107.0 109 High FINAL Oziel Box * [facility] , [address] [facility] [facility] [id number] 0 08/14 CMP CO2 mmol/L 22.0 30.0 [...] hour stability window. FINAL Oziel Box * [facility] , [address] [facility] [id number] 0 08/14 CMP Creat inine mg/dL 0.66 1.25 0.90 FINAL Oziel Box * [facility] , [address] [facility] [id number] 0 08/14 CMP GFR estim ate ml/min /1.73m ^2 66.5 GFR is calculate d using the CKD-EPI equation. FINAL Oziel Box * [facility] , [address] [facility] [address] [id number] 0 08/14 CMP Gluco se mg/dL 74.0 100.0 95 FINAL Oziel Box * [facility] , [address] [facility] [id number] 0 08/14 CMP Potas sium mmol/L 3.5 5.1 4.5 FINAL Oziel Box * [facility] , [address] [facility] [id number] 0 08/14 CMP Sodiu m mmol/L 137.0 145.0 137 FINAL Oziel Box * [facility] , [address] [facility] [id number] 0 08/14 CMP Bilir ubin, total mg/dL 0.2 1.3 0.8 FINAL Oziel Box * [facility] , [address] [facility] [id number] 0 08/14 CMP Total prote in g/dL 6.3 8.2 6.5 FINAL Oziel Box * [facility] , [address] [facility] [id number] 0 08/14 CBC w/ auto diff WBC K/uL 3.0 8.9 4.7 FINAL [facility] [place] [facility] , [address] [place] [facility] [id number] 0 08/14 CBC w/ auto diff HGB g/dL 11.3 15.2 11.5 FINAL [facility] Box [facility] [place] [facility] , [address] [place] [facility] [id number] 0 08/14 CBC w/ auto diff PLT K/uL 113.0 364.0 211 FINAL [facility] [place] [facility] , [address] [place] [facility] [id number] 0 08/14 CBC w/ auto diff Dave # (ANC) K/uL 1.6 6.6 2.9 FINAL [facility] [place] [facility] [place] [facility] , [address] [place] [id number] 08/14 CBC w/ auto diff Dave % % 43.0 74.0 61.3 FINAL [facility] [place] [facility] [place] [facility] , [address] [place] [id number] 0 08/14 CBC w/ auto diff IG % % 0.0 0.5 0.2 FINAL [facility] [place] [facility] [place] [facility] , [address] [place] [id number] 0 08/14 CBC w/ auto diff IG # K/uL 0.0 0.03 0.01 FINAL [facility]iel [facility] [place] [facility] [place] [facility] , [address] [place] [id number] 0 08/14 CBC w/ auto diff LY % % 14.0 41.0 25.6 FINAL [facility] [place] [facility] , [address] [place] [id number] 0 08/14 CBC w/ auto diff MO % % 6.0 15.0 8.7 FINAL [facility] [place] [facility] , [address] [place] [id number] 0 08/14 CBC w/ auto diff EO % % 0.0 7.0 3.8 FINAL [facility] [place] [facility] , [address] [place] [id number] 0 08/14 CBC w/ auto diff BA % % 0.0 2.0 0.4 FINAL [facility] [place] [facility] , [address] [place] [id number] 0 08/14 CBC w/ auto diff LY # K/uL 0.4 3.6 1.2 FINAL [facility] [place] [facility] , [address] [place] [id number] 0 08/14 CBC w/ auto diff MO # K/uL 0.2 1.3 0.4 FINAL [facility] [place] [facility] , [address] [place] [id number] 0 08/14 CBC w/ auto diff EO # K/uL 0.0 0.6 0.2 FINAL [facility] [place] [facility] , [address] [place] [id number] 0 08/14 CBC w/ auto diff BA # K/uL 0.0 0.2 0.0 FINAL [facility] [place] [facility] , [address] [place] [id number] 0 08/14 CBC w/ auto diff NRBC % #/100W BC 0.0 0.2 0.0 FINAL [facility] [place] [facility] , [address] [place] [id number] 0 08/14 CBC w/ auto diff RBC M/uL 3.9 5.1 3.60 Low FINAL [facility] [place] [facility] , [address] [place] [id number] 0 08/14 CBC w/ auto diff HCT % 35.0 48.0 35.2 FINAL [facility] [place] [facility] [place] [facility] , [address] [place] [id number] 0 08/14 CBC w/ auto diff MCV fL 80.0 104.0 97.8 [facility] , [address] [place] [id number] 0 08/14 CBC w/ auto diff MCH pg 26.0 35.0 31.9 [facility] , [address] [facility] [id number] 0 08/14 CBC w/ auto diff MCHC g/dL 30.0 35.0 32.7 [facility] , [address] [facility] [id number] 0 08/14 CBC w/ auto diff MPV fL 9.5 13.4 9.0 Low [facility] , [address] [facility] [id number] 0 08/14 CBC w/ auto diff RDW % 11.4 16.1 13.60 [facility] , [address] [facility] [id number] Medications Date Name Route Dose Frequency Instructions Start Date End Date Status Baclofen Oral daily act charles Vitamin [id number] Acid Oral 500 mcg-400 mcg daily active [...] concentration must be 0.3-1.2 mg/mL.Administ er using [id number] ining equipment and through an in-line 0.22 [...]
--- OUTSIDE RECORDS SUMMARY | 2024-09-18 08:44 | XMS_ITS ---
Author Name Interface, V8Clgaurm lity Address [address] [facility] [address] [address] [facility] Address [address] [facility] [address] [address] Allergies and Adverse Reactions Medication/Group Name Reaction [...] 20 MIN 05/13/2022 APPOINTMENT CHART CHECK 5 WI N 05/08/2022 APPOINTMENT OV 20 MIN 05/08/2022 [...] 15 MIN 02/20/2022 APPOINTMENT CHART CHECK 5 WI N 01/16/2022 APPOINTMENT PORT DRAW 15 MIN [...] K/uL 3.0 8.9 5.5 FINAL [facility] [place], [address] [facility] [address] [place] [facility] [id number] 0 Phone: () - 10/24 CBC w/ auto diff HGB g/dL 11.3 15.2 12.0 FINAL [facility] [place], [address] [facility] [address] [place] [facility] [id number] 0 Phone: () - 10/24 CBC w/ auto diff PLT K/uL 113.0 364.0 211 FINAL [facility] [place], [address] [place] [facility] [id number] 0 Phone: () - 10/24 CBC w/ auto diff Dave # (ANC) K/uL 1.6 6.6 3.4 FINAL [facility] [place], [address] [facility] [address] [place] [id number] 0 Phone: () - 10/24 CBC w/ auto diff Dave % % 43.0 74.0 62.4 FINAL Lia Tolbert [facility] - [place], [address] [facility] [address] [place] [id number] 0 Phone: () - 10/24 CBC w/ auto diff IG % % 0.0 0.5 1.1 High FINAL Lia T[facility]leyot a [facility] - [place], [address] [facility] [address] [place] [id number] 0 Phone: () - 10/24 CBC w/ auto diff IG # K/uL 0.0 0.03 0.06 High FINAL Lia Tolbert a [facility] - [place], [address] [facility] [address] [place] [id number] 0 Phone: () - 10/24 CBC w/ auto diff LY % % 14.0 41.0 22.2 FINAL Lia Tolbert a [facility] - [place], [address] [facility] [address] [place] [id number] 0 Phone: () - 10/24 CBC w/ auto diff MO % % 6.0 15.0 10.1 FINAL Lia Tolbert a [facility] - [place], [address] [facility] [address] [place] [id number] 0 Phone: () - 10/24 CBC w/ auto diff EO % % 0.0 7.0 3.8 FINAL Lia Tolbert a [facility] - [place], [address] [facility] [address] [place] [id number] 0 Phone: () - 10/24 CBC w/ auto diff BA % % 0.0 2.0 0.4 FINAL Lia Tilleyot a [facility] - [place], [address] [facility] [address] [place] [id number] 0 Phone: () - 10/24 CBC w/ auto diff LY # K/uL 0.4 3.6 1.2 FINAL Lia Tilleyot a [facility] - [place], [address] [place] [id number] 0 Phone: () - 10/24 CBC w/ auto diff MO # K/uL 0.2 1.3 0.6 FINAL Lia Tilleyot a [facility] - [place], [address] [place] [id number] 0 Phone: () - 10/24 CBC w/ auto diff EO # K/uL 0.0 0.6 0.2 FINAL Lia Tilleyot a [facility] - [place], [address] [place] [id number] 0 Phone: () - 10/24 CBC w/ auto diff BA # K/uL 0.0 0.2 0.0 FINAL Lia Tilleyot a [facility] - [place], [address] [place] [id number] 0 Phone: () - 10/24 CBC w/ auto diff NRBC % #/100W BC 0.0 0.2 0.0 FINAL Lia Tolbert a [facility] - [place], [address] [place] [id number] 0 Phone: () - 10/24 CBC w/ auto diff RBC M/uL 3.9 5.1 3.62 Low FINAL Lia Tolbert a [facility] - [place], [address] [place] [id number] 0 Phone: () - 10/24 CBC w/ auto diff HCT % 35.0 48.0 35.7 FINAL Lia Tolbert a [facility] - [place], [address] [place] [id number] 0 Phone: () - 10/24 CBC w/ auto diff MCV fL 80.0 104.0 98.6 FINAL Lia Tilleyot a [facility] - [place], [address] [place] [id number] 0 Phone: () - 10/24 CBC w/ auto diff MCH pg 26.0 35.0 33.1 FINAL Lia Tilley gi [facility] - [place], [address] [facility] [address] [place] [id number] 0 Phone: () - 10/24 CBC w/ auto diff MCHC g/dL 30.0 35.0 33.6 FINAL Lia Tilley gi [facility] - [place], [address] [place] [id number] 0 Phone: () - 10/24 CBC w/ auto diff MPV fL 9.5 13.4 9.1 Low FINAL Lia Tilley gi [facility] - [place], [address] [place] [id number] 0 Phone: () - 10/24 CBC w/ auto diff RDW % 11.4 16.1 12.20 FINAL Lia Tilley gi [facility] - [place], [address] [facility] [address] [place] [id number] 0 Phone: () - 10/24 TSH w/ refle x to free T4 TSH uIU/ml 0.32 5.0 0.05 Low Test performed at [facility] on a [facility] & Away 2000 Immunoass ay Analyzer that uses an immunoenz ymometric sandwich assay for analysis. Patient testing should not be performed using multiple methodharley amador due to analytica l variation seen between test methodharley amador. FINAL Lia Delgado [facility], [address] [place] [address] [place] [phone] 0 Phone: () - 10/24 CMP Album in g/dL 3.2 5.2 4.3 FINAL Liagi Delgado [facility], [address] [place] [id number] 0 Phone: () - 10/24 CMP Alkal ine phosp hatas e U/L 46.0 116.0 59 FINAL [facility], [address] [place] [id number] 0 Phone: () - 10/24 CMP ALT/S GPT U/L 7.0 40.0 12 FINAL [facility], [address] [facility] [id number] 0 Phone: () - 10/24 CMP AST/S GOT U/L 13.0 40.0 22 FINAL [facility], [address] [facility] [address] [facility] [id number] 0 Phone: () - 10/24 CMP BUN mg/dL 9.0 23.0 16 FINAL [place] [address] [address] [facility] [address] [facility] [id number] 0 Phone: () - 10/24 CMP Calci um mg/dL 8.7 10.4 9.7 FINAL [place] [address] [address] [facility] [address] [facility] [id number] 0 Phone: () - 10/24 CMP Chlor vipin mmol/L 96.0 114.0 110 [place] [address] [id number] 0 Phone: () - 10/24 CMP CO2 [...] of the 96 hour stability window. FINAL [facility], [facility] [address] [id number] 0 Phone: () - 10/24 CMP Creat inine mg/dL 0.5 1.2 0.83 FINAL [facility], [facility] N [address] [id number] 0 Phone: () - 10/24 CMP GFR estim ate ml/min /1.73m ^2 74.5 GFR is calculate d using the CKD-EPI equation. [facility], [facility] N [facility] 100 [facility] [phone] 0 Phone: () - 10/24 CMP Gluco se mg/dL 73.0 126.0 87 [facility] [place], [address] [id number] 0 Phone: () - 10/24 CMP Potas sium mmol/L 3.5 5.1 4.4 FINAL [facility] [address] [id number] 0 Phone: () - 10/24 CMP Sodiu m mmol/L 136.0 145.0 145 FINAL [facility] [address] [id number] 0 Phone: () - 10/24 CMP Bilir ubin, total mg/dL 0.3 1.2 0.4 [place] [address] [id number] 0 Phone: () - 10/24 CMP Total prote in g/dL 5.7 8.2 6.4 FINAL [place] [address] [id number] 0 Phone: () - 10/24 T4, free panel T4, free ng/dL 0.7 1.8 1.62 Test performed at [facility] on a [place] & Away 2000 Immunoass ay Analyzer that uses an immunoenz ymometric sandwich assay for analysis. Patient testing should not be performed using multiple methodolo gies due to analytica l variation seen between test methodolo gies. FINAL [place] [address] [id number] 0 Phone: () - 11/21 TSH w/ refle x to free T4 TSH uIU/ml 0.32 5.0 0.16 Low Test performed at [facility] on a [employer] & Away 2000 Immunoass ay Analyzer that uses an immunoenz ymometric sandwich assay for analysis. Patient testing should not be performed using multiple methodolo gies due to analytica l variation seen between test methodolo gies. FINAL [facility] [address] [id number] 0 Phone: () - 11/21 CBC w/ auto diff WBC K/uL 3.0 8.9 4.1 FINAL [facility]ia [facility] [place], [address] [place] [id number] 0 Phone: () - 11/21 CBC w/ auto diff HGB g/dL 11.3 15.2 11.8 FINAL Lia Tilleyot a [facility] - [place], [address] [place] [id number] 0 Phone: () - 11/21 CBC w/ auto diff PLT K/uL 113.0 364.0 223 FINAL Lia Tilleyot a [facility] - [place], [address] [place] [id number] 0 Phone: () - 11/21 CBC w/ auto diff Dave # (ANC) K/uL 1.6 6.6 2.3 FINAL Lia Tolbert a [facility] - [place], [address] [place] [id number] 0 Phone: () - 11/21 CBC w/ auto diff Dave % % 43.0 74.0 56.3 FINAL Lia Tolbert a [facility] - [place], [address] [place] [id number] 0 Phone: () - 11/21 CBC w/ auto diff IG % % 0.0 0.5 0.2 FINAL Lia Tolbert a [facility] - [place], [address] [place] [id number] 0 Phone: () - 11/21 CBC w/ auto diff IG # K/uL 0.0 0.03 0.01 FINAL Lia Tilleyot a [facility] - [place], [address] [place] [id number] 0 Phone: () - 11/21 CBC w/ auto diff LY % % 14.0 41.0 29.0 FINAL Lia Tilleyot a [facility] - [place], [address] [place] [id number] 0 Phone: () - 11/21 CBC w/ auto diff MO % % 6.0 15.0 10.4 FINAL Lia Tilleyot a [facility] - [place], [address] [place] [id number] 0 Phone: () - 11/21 CBC w/ auto diff EO % % 0.0 7.0 3.9 FINAL Lia Tilleyot a [facility] - [place], [address] [place] [id number] 0 Phone: () - 11/21 CBC w/ auto diff BA % % 0.0 2.0 0.2 FINAL Lia Tilleyot a [facility] - [place], [address] [place] [id number] 0 Phone: () - 11/21 CBC w/ auto diff LY # K/uL 0.4 3.6 1.2 FINAL Lia Tilleyot a [facility] - [place], [address] [place] [id number] 0 Phone: () - 11/21 CBC w/ auto diff MO # K/uL 0.2 1.3 0.4 FINAL Lia Tilleyot a [facility] - [place], [address] [place] [id number] 0 Phone: () - 11/21 CBC w/ auto diff EO # K/uL 0.0 0.6 0.2 FINAL Lia Tilleyot a [facility] - [place], [address] [place] [id number] 0 Phone: () - 11/21 CBC w/ auto diff BA # K/uL 0.0 0.2 0.0 FINAL Lia Tilleyot a [facility] - [place], [address] [place] [id number] 0 Phone: () - 11/21 CBC w/ auto diff NRBC % #/100W BC 0.0 0.2 0.0 FINAL Lia Tilleyot a [facility] - [place], [address] [place] [id number] 0 Phone: () - 11/21 CBC w/ auto diff RBC M/uL 3.9 5.1 3.69 Low FINAL Lia Tilleyot a [facility] - [place], [address] [facility] [address] [place] [id number] 0 Phone: () - 11/21 CBC w/ auto diff HCT % 35.0 48.0 35.6 FINAL Lia Tilleyot gi [facility] - [place], [address] [facility] [address] [place] [id number] 0 Phone: () - 11/21 CBC w/ auto diff MCV fL 80.0 104.0 96.5 FINAL Lia Tilleyot a [facility] - [place], [address] [place] [address] d [address] [place] [id number] 0 Phone: () - 11/21 CBC w/ auto diff MCH pg 26.0 35.0 32.0 FINAL Lia angelo [facility] - [place], [address] [facility] [address] [place] [id number] 0 Phone: () - 11/21 CBC w/ auto diff MCHC g/dL 30.0 35.0 33.1 FINAL Lia angelo [facility] - [place], [address] [facility] [address] [place] [id number] 0 Phone: () - 11/21 CBC w/ auto diff MPV fL 9.5 13.4 9.0 Low FINAL Lia angelo [facility] - [place], [address] [facility] [address] [place] [id number] 0 Phone: () - 11/21 CBC w/ auto diff RDW % 11.4 16.1 12.40 FINAL Lia Tolbert a [facility] - [place], [facility] [address] [facility] [address] [place] [id number] 0 Phone: () - 11/21 CMP Album in g/dL 3.2 5.2 4.1 FINAL Lia Tilley a [facility] - [place], [address] [place] [id number] 0 Phone: () - 11/21 CMP Alkal ine phosp hatas e U/L 46.0 116.0 52 FINAL [facility], [address] [facility] Areae [address] [id number] 0 Phone: () - 11/21 CMP ALT/S GPT U/L 7.0 40.0 17 FINAL [place] [address] [address] [facility] Are[facility] [address] [id number] 0 Phone: () - 11/21 CMP AST/S GOT U/L 13.0 40.0 24 FINAL [place] [address] [id number] 0 Phone: () - 11/21 CMP BUN mg/dL 9.0 23.0 14 FINAL [place] [address] [address] [facility] Are[facility] [address] [id number] 0 Phone: () - 11/21 CMP Calci um mg/dL 8.7 10.4 9.3 FINAL [place] [address] [address] [facility] [address] [id number] 0 Phone: () - 11/21 CMP Chlor vipin mmol/L 96.0 114.0 111 FINAL [place] [address] [address] [facility] [address] [id number] 0 Phone: () - 11/21 CMP CO2 [...] of the 96 hour stability window. FINAL [facility], [facility] N [facility] Areae [address] [place] [address] [id number] 0 Phone: () - 11/21 CMP Creat inine mg/dL 0.5 1.2 0.79 FINAL [place] [address] [id number] 0 Phone: () - 11/21 CMP GFR estim ate ml/min /1.73m ^2 79.1 GFR is calculate d using the CKD-EPI equation. FINAL [place] [address] [id number] 0 Phone: () - 11/21 CMP Gluco se mg/dL 73.0 126.0 86 FINAL [place] [address] [id number] 0 Phone: () - 11/21 CMP Potas sium mmol/L 3.5 5.1 4.[address] [id number] 0 Phone: () - 11/21 CMP Sodiu m mmol/L 136.0 145.0 144 FINAL [place] [address] [id number] 0 Phone: () - 11/21 CMP Bilir ubin, total mg/dL 0.3 1.2 0.3 FINAL [place] [address] [id number] 0 Phone: () - 11/21 CMP Total prote in g/dL 5.7 8.2 6.2 FINAL [place] [address] [id number] 0 Phone: () - 11/21 T4, free panel T4, free ng/dL 0.7 1.8 1.13 Test performed at [facility] on a [employer] & Away 2000 Immunoass ay Analyzer that uses an immunoenz ymometric sandwich assay for analysis. Patient testing should not be performed using multiple kathi amador due to analytica l variation seen between test kathi amador. FINAL [place] [address] [id number] 0 Phone: () - 12/19 CBC w/ auto diff WBC K/uL 3.0 8.9 4.9 FINAL [facility] [facility] [place], [address] [place] [id number] 0 Phone: () - 12/19 CBC w/ auto diff HGB g/dL 11.3 15.2 11.8 FINAL Oziel Tilleyot a [facility] - [place], [address] [place] [id number] 0 Phone: () - 12/19 CBC w/ auto diff PLT K/uL 113.0 364.0 218 FINAL Oziel Tilleyot a [facility] - [place], [address] [place] [id number] 0 Phone: () - 12/19 CBC w/ auto diff Dave # (ANC) K/uL 1.6 6.6 2.7 FINAL Oziel T[facility]leyot a [facility] - [place], [address] [place] [id number] 0 Phone: () - 12/19 CBC w/ auto diff Dave % % 43.0 74.0 55.3 FINAL Oziel T[facility]leyot a [facility] - [place], [address] [place] [id number] 0 Phone: () - 12/19 CBC w/ auto diff IG % % 0.0 0.5 0.2 FINAL Oziel Tilleyot a [facility] - [place], [address] [place] [id number] 0 Phone: () - 12/19 CBC w/ auto diff IG # K/uL 0.0 0.03 0.01 FINAL Oziel T[facility]ley[facility] a [facility] - [place], [address] [place] [id number] 0 Phone: () - 12/19 CBC w/ auto diff LY % % 14.0 41.0 30.6 FINAL Oziel T[facility]leyot a [facility] - [place], [address] [place] [id number] 0 Phone: () - 12/19 CBC w/ auto diff MO % % 6.0 15.0 9.3 FINAL Oziel T[facility]leyot a [facility] - [place], [address] [place] [id number] 0 Phone: () - 12/19 CBC w/ auto diff EO % % 0.0 7.0 4.0 FINAL Oziel Tolbert a [facility] - [place], [address] [place] [id number] 0 Phone: () - 12/19 CBC w/ auto diff BA % % 0.0 2.0 0.6 FINAL Oziel Tolbert a [facility] - [place], [address] [place] [id number] 0 Phone: () - 12/19 CBC w/ auto diff LY # K/uL 0.4 3.6 1.5 FINAL Oziel T[facility]ley[facility] a [facility] - [place], [address] [place] [id number] 0 Phone: () - 12/19 CBC w/ auto diff MO # K/uL 0.2 1.3 0.5 FINAL Oziel angelo [facility] - [place], [address] [place] [id number] 0 Phone: () - 12/19 CBC w/ auto diff EO # K/uL 0.0 0.6 0.2 FINAL Oziel angelo [facility] - [place], [address] [place] [id number] 0 Phone: () - 12/19 CBC w/ auto diff BA # K/uL 0.0 0.2 0.0 FINAL Oziel angelo [facility] - [place], [address] [place] [id number] 0 Phone: () - 12/19 CBC w/ auto diff NRBC % #/100W BC 0.0 0.2 0.0 FINAL Oziel Tolbert a [facility] - [place], [address] [place] [id number] 0 Phone: () - 12/19 CBC w/ auto diff RBC M/uL 3.9 5.1 3.68 Low FINAL Oziel angelo [facility] - [place], [address] [place] [id number] 0 Phone: () - 12/19 CBC w/ auto diff HCT % 35.0 48.0 35.3 FINAL Oziel angelo [facility] - [place], [address] [place] [id number] 0 Phone: () - 12/19 CBC w/ auto diff MCV fL 80.0 104.0 95.9 FINAL Oziel angelo [facility] - [place], [address] [place] [id number] 0 Phone: () - 12/19 CBC w/ auto diff MCH pg 26.0 35.0 32.1 FINAL Oziel angelo [facility] - [place], [address] [place] [id number] 0 Phone: () - 12/19 CBC w/ auto diff MCHC g/dL 30.0 35.0 33.4 FINAL Oziel angelo [facility] - [place], [address] [place] [id number] 0 Phone: () - 12/19 CBC w/ auto diff MPV fL 9.5 13.4 9.1 Low FINAL Oziel angelo [facility] - [place], [address] [place] [id number] 0 Phone: () - 12/19 CBC w/ auto diff RDW % 11.4 16.1 13.30 FINAL Oziel angelo [facility] - [place], [address] [place] [id number] 0 Phone: () - 12/19 CMP Album in g/dL 3.2 5.2 4.0 FINAL Oziel angelo [facility] - [place], [address] [place] [id number] 0 Phone: () - 12/19 CMP Alkal ine phosp hatas e U/L 46.0 116.0 58 FINAL Oziel angelo [facility], [address] [facility] 100 [facility] [id number] 0 Phone: () - 12/19 CMP ALT/S GPT U/L 7.0 40.0 13 FINAL Oziel angelo [facility] [address] [facility] [address] [facility] 100 [facility] [id number] 0 Phone: () - 12/19 CMP AST/S GOT U/L 13.0 40.0 24 FINAL Oziel angelo [place] [address] [address] [facility] [address] [id number] 0 Phone: () - 12/19 CMP BUN mg/dL 9.0 23.0 18 FINAL Oziel angelo [place] [address] [id number] 0 Phone: () - 12/19 CMP Calci um mg/dL 8.7 10.4 9.7 FINAL Oziel angelo [place] [address] [id number] 0 Phone: () - 12/19 CMP Chlor vipin mmol/L 96.0 114.0 111 FINAL Oziel angelo [facility] [address] [id number] 0 Phone: () - 12/19 CMP CO2 [...] 96 hour stability window. FINAL Oziel angelo [facility], [facility] N [facility] [address] [id number] 0 Phone: () - 12/19 CMP Creat inine mg/dL 0.5 1.2 0.82 FINAL Oziel angelo [place] [address] [address] [facility] [address] [id number] 0 Phone: () - 12/19 CMP GFR estim ate ml/min /1.73m ^2 75.6 GFR is calculate d using the CKD-EPI equation. FINAL Oziel angelo [facility], [address] [facility] [address] [facility] 100 [facility] [id number] 0 Phone: () - 12/19 CMP Gluco se mg/dL 73.0 126.0 81 FINAL Oziel angelo [facility] [address] [facility] [address] [facility] 100 [facility] [id number] 0 Phone: () - 12/19 CMP Potas sium mmol/L 3.5 5.1 4.4 FINAL Oziel angelo [facility] [address] [facility] [address] [facility] 100 [facility] [id number] 0 Phone: () - 12/19 CMP Sodiu m mmol/L 136.0 145.0 144 FINAL Oziel angelo [place] [address] [id number] 0 Phone: () - 12/19 CMP Bilir ubin, total mg/dL 0.3 1.2 0.4 FINAL Oziel angelo [place] [address] [address] [facility] [address] [id number] 0 Phone: () - 12/19 CMP Total prote in g/dL 5.7 8.2 6.3 FINAL Oziel angelo [place] [address] [id number] 0 Phone: () - 12/19 TSH w/ refle x to free T4 TSH uIU/ml 0.32 5.0 2.75 Test performed at [facility] on a Off & Away 2000 Immunoass ay Analyzer that uses an immunoenz ymometric sandwich assay for analysis. Patient testing should not be performed using multiple methodharley amador due to analytica l variation seen between test kathi amador. FINAL Oziel angelo [facility], [address] [facility] [address] [facility] 100 [facility] [id number] 0 Phone: () - 01/12 [facility] lab See all around patternmaker d 01/16 CMP Album in g/dL 3.2 5.2 4.3 FINAL Oziel angelo [facility] [address] [facility] [address] [facility] 100 [facility] [id number] 0 Phone: () - 01/16 CMP Alkal ine phosp hatas e U/L 46.0 116.0 64 FINAL Oziel angelo [facility], [address] [facility] [address] [facility] 100 [facility] [id number] 0 Phone: () - 01/16 CMP ALT/S GPT U/L 7.0 40.0 12 FINAL Oziel angelo [facility] [address] [facility] [address] [facility] 100 [facility] [id number] 0 Phone: () - 01/16 CMP AST/S GOT U/L 13.0 40.0 23 FINAL Oziel angelo [place] [address] [address] [facility] [address] [id number] 0 Phone: () - 01/16 CMP BUN mg/dL 9.0 23.0 17 FINAL Oziel angelo [place] [address] [id number] 0 Phone: () - 01/16 CMP Calci um mg/dL 8.7 10.4 9.4 FINAL Oziel angelo [place] [address] [id number] 0 Phone: () - 01/16 CMP Chlor vipin mmol/L 96.0 114.0 108 FINAL Oziel angelo [place] [address] [id number] 0 Phone: () - 01/16 CMP CO2 [...] 96 hour stability window. FINAL Oziel angelo [place] [address] [address] [facility] [address] [id number] 0 Phone: () - 01/16 CMP Creat inine mg/dL 0.5 1.2 1.07 FINAL Oziel angelo [facility] [address] [facility] [address] [facility] 100 [facility] [id number] 0 Phone: () - 01/16 CMP GFR estim ate ml/min /1.73m ^2 54.9 Low GFR is calculate d using the CKD-EPI equation. FINAL Oziel angelo [place] [address] [id number] 0 Phone: () - 01/16 CMP Gluco se mg/dL 73.0 126.0 84 FINAL Oziel angelo [place] [address] [address] [facility] [address] [id number] 0 Phone: () - 01/16 CMP Potas sium mmol/L 3.5 5.1 4.4 FINAL Oziel angelo [place] [address] [id number] 0 Phone: () - 01/16 CMP Sodiu m mmol/L 136.0 145.0 141 FINAL Oziel angelo [place] [address] [id number] 0 Phone: () - 01/16 CMP Bilir ubin, total mg/dL 0.3 1.2 0.4 FINAL Oziel angelo [place] [address] [id number] 0 Phone: () - 01/16 CMP Total prote in g/dL 5.7 8.2 6.6 FINAL Oziel angelo [place] [address] [id number] 0 Phone: () - 01/16 TSH w/ refle x to free T4 TSH uIU/ml 0.32 5.0 14.74 High Provider Alert. Notified Vicki by Lynne Flannery on 01/19/2022 at 2:55 PM.Test performed at [facility] on a [employer] 2000 Immunoass ay Analyzer that uses an immunoenz ymometric sandwich assay for analysis. Patient testing should not be performed using multiple kathi amador due to analytica l variation seen between test kathi amador. FINAL Oziel angelo [place] [address] [address] [facility] [address] [phone] 0 Phone: () - 01/16 CBC w/ auto diff WBC K/uL 3.0 8.9 4.4 FINAL Oziel angelo [facility], [address] [place] [id number] 0 Phone: () - 01/16 CBC w/ auto diff HGB g/dL 11.3 15.2 11.9 FINAL Oziel [facility] - [place], [address] [place] [id number] 0 Phone: () - 01/16 CBC w/ auto diff PLT K/uL 113.0 364.0 231 FINAL Oziel [facility] - [place], [address] [place] [id number] 0 Phone: () - 01/16 CBC w/ auto diff Dave # (ANC) K/uL 1.6 6.6 2.4 FINAL Oziel angelo [facility] - [place], [address] [place] [id number] 0 Phone: () - 01/16 CBC w/ auto diff Dave % % 43.0 74.0 54.7 FINAL Oziel Tolbert a [facility] - [place], [address] [place] [id number] 0 Phone: () - 01/16 CBC w/ auto diff IG % % 0.0 0.5 0.2 FINAL Oziel [facility] [place], [address] [place] [id number] 0 Phone: () - 01/16 CBC w/ auto diff IG # K/uL 0.0 0.03 0.01 FINAL Oziel [facility] - [place], [address] [place] [id number] 0 Phone: () - 01/16 CBC w/ auto diff LY % % 14.0 41.0 31.8 FINAL Oziel [facility] [place], [address] [place] [id number] 0 Phone: () - 01/16 CBC w/ auto diff MO % % 6.0 15.0 8.9 FINAL Oziel [facility] [place], [address] [place] [id number] 0 Phone: () - 01/16 CBC w/ auto diff EO % % 0.0 7.0 3.9 FINAL Oziel [facility] [place], [address] [place] [id number] 0 Phone: () - 01/16 CBC w/ auto diff BA % % 0.0 2.0 0.5 FINAL Oziel [facility] [place], [address] [place] [id number] 0 Phone: () - 01/16 CBC w/ auto diff LY # K/uL 0.4 3.6 1.4 FINAL Oziel Tolbert a [facility] - [place], [address] [place] [id number] 0 Phone: () - 01/16 CBC w/ auto diff MO # K/uL 0.2 1.3 0.4 FINAL Oziel [facility] [place], [address] [place] [id number] 0 Phone: () - 01/16 CBC w/ auto diff EO # K/uL 0.0 0.6 0.2 FINAL Oziel [facility] [place], [address] [place] [id number] 0 Phone: () - 01/16 CBC w/ auto diff BA # K/uL 0.0 0.2 0.0 FINAL Oziel [facility] [place], [address] [place] [id number] 0 Phone: () - 01/16 CBC w/ auto diff NRBC % #/100W BC 0.0 0.2 0.0 FINAL Oziel [facility] [place], [address] [place] [id number] 0 Phone: () - 01/16 CBC w/ auto diff RBC M/uL 3.9 5.1 3.69 Low FINAL Oziel [facility] [place] [facility] [place], [address] [place] [id number] 0 Phone: () - 01/16 CBC w/ auto diff HCT % 35.0 48.0 35.0 FINAL Oziel angelo [facility] - [place], [address] [place] [id number] 0 Phone: () - 01/16 CBC w/ auto diff MCV fL 80.0 104.0 94.9 FINAL Oziel angelo [facility] - [place], [address] [place] [id number] 0 Phone: () - 01/16 CBC w/ auto diff MCH pg 26.0 35.0 32.2 FINAL Oziel angelo [facility] - [place], [address] [place] [id number] 0 Phone: () - 01/16 CBC w/ auto diff MCHC g/dL 30.0 35.0 34.0 FINAL Oziel angelo [facility] - [place], [address] [place] [id number] 0 Phone: () - 01/16 CBC w/ auto diff MPV fL 9.5 13.4 8.8 Low FINAL Oziel angelo [facility] - [place], [address] [place] [id number] 0 Phone: () - 01/16 CBC w/ auto diff RDW % 11.4 16.1 13.90 FINAL Oziel angelo [facility] [place], [address] [place] [id number] 0 Phone: () - 01/16 T4, free panel T4, free ng/dL 0.7 1.8 0.75 Test performed at [facility] on a TriOvizass ay Analyzer that uses an immunoenz ymometric sandwich assay for analysis. Patient testing should not be performed using multiple methodharley amador due to analytica l variation seen between test methodharley amador. FINAL Oziel Tolbert a [facility] - [place], [address] [place] [id number] 0 Phone: () - 02/20 TSH w/ refle x to free T4 TSH uIU/ml 0.32 5.0 Sent to Refer ce Lab. Hard copy results availab le only. Test performed at [facility] on a [employer] Immunoass ay Analyzer that uses an immunoenz ymometric sandwich assay for analysis. Patient testing should not be performed using multiple methodolo marjorie due to analytica l variation seen between test methodolo ginaun. FINAL Oziel angelo On[facility], [address] [facility] [address] [facility] [id number] 0 Phone: () - 02/20 TSH uIU/mL 0.35 4.94 8.74 High In Adults, TSH values between 5.00 and 10.00 uIU/ml do notnecess arily indicate the presence of Hypothyro idism.Cor relation with clinical findings such as presence of goiterand /or Thyropero xidase (TPO) Antibody may be helpful. Formore informati on please refer to MAYELA 2004; 291: 228-238.T est Performed by:[facility] [address] - [place], [place] [id number] e : FINAL Oziel Box 02/20 T4, free panel T4, free ng/dL 0.7 1.8 1.01 Test Performed by:[facility] [address] - [place], [place] [id number] e : FINAL Oziel Box 05/08 CBC w/ auto diff WBC K/uL 3.0 8.9 7.3 FINAL Oziel angelo [facility] [place], [address] [facility] [address] [facility] [place] [id number] 0 Phone: () - 05/08 CBC w/ auto diff HGB g/dL 11.3 15.2 11.0 Low FINAL Oziel angelo [facility] [place], [address] [facility] [address] [place] [id number] 0 Phone: () - 05/08 CBC w/ auto diff PLT K/uL 113.0 364.0 210 FINAL Oziel [facility] [place] [facility] [place], [address] [place] [id number] 0 Phone: () - 05/08 CBC w/ auto diff Dave # (ANC) K/uL 1.6 6.6 3.7 FINAL Oziel [facility] [place], [address] [place] [id number] 0 Phone: () - 05/08 CBC w/ auto diff Dave % % 43.0 74.0 51.1 FINAL Oziel [facility] [place], [address] [place] [id number] 0 Phone: () - 05/08 CBC w/ auto diff IG % % 0.0 0.5 0.3 FINAL Oziel [facility] [place], [address] [place] [id number] 0 Phone: () - 05/08 CBC w/ auto diff IG # K/uL 0.0 0.03 0.02 FINAL Oziel [facility] [place], [address] [place] [id number] 0 Phone: () - 05/08 CBC w/ auto diff LY % % 14.0 41.0 37.9 FINAL Oziel Tolbert [facility] [place], [address] [place] [id number] 0 Phone: () - 05/08 CBC w/ auto diff MO % % 6.0 15.0 9.2 FINAL Oziel [facility] [place], [address] [place] [id number] 0 Phone: () - 05/08 CBC w/ auto diff EO % % 0.0 7.0 1.2 FINAL Oziel [facility] [place], [address] [place] [id number] 0 Phone: () - 05/08 CBC w/ auto diff BA % % 0.0 2.0 0.3 FINAL Oziel [facility] [place], [address] [place] [id number] 0 Phone: () - 05/08 CBC w/ auto diff LY # K/uL 0.4 3.6 2.8 FINAL Oziel [facility] [place], [address] [place] [id number] 0 Phone: () - 05/08 CBC w/ auto diff MO # K/uL 0.2 1.3 0.7 FINAL Oziel [facility] [place], [address] [place] [id number] 0 Phone: () - 05/08 CBC w/ auto diff EO # K/uL 0.0 0.6 0.1 FINAL Oziel [facility] [place], [address] [place] [id number] 0 Phone: () - 05/08 CBC w/ auto diff BA # K/uL 0.0 0.2 0.0 FINAL Oziel Tolbert [facility] - [place], [address] [place] [id number] 0 Phone: () - 05/08 CBC w/ auto diff NRBC % #/100W BC 0.0 0.2 0.0 FINAL Oziel [facility] [place], [address] [place] [id number] 0 Phone: () - 05/08 CBC w/ auto diff RBC M/uL 3.9 5.1 3.27 Low FINAL Oziel [facility] [place], [address] [place] [id number] 0 Phone: () - 05/08 CBC w/ auto diff HCT % 35.0 48.0 32.1 Low FINAL Oziel [facility] [place], [address] [place] [id number] 0 Phone: () - 05/08 CBC w/ auto diff MCV fL 80.0 104.0 98.2 FINAL Oziel angelo [facility] [place], [address] [place] [id number] 0 Phone: () - 05/08 CBC w/ auto diff MCH pg 26.0 35.0 33.6 FINAL Oziel angelo [facility] [place], [address] [place] [id number] 0 Phone: () - 05/08 CBC w/ auto diff MCHC g/dL 30.0 35.0 34.3 FINAL Oziel angelo [facility] - [place], [address] [place] [id number] 0 Phone: () - 05/08 CBC w/ auto diff MPV fL 9.5 13.4 9.4 Low FINAL Oziel angelo [facility] - [place], [address] [place] [id number] 0 Phone: () - 05/08 CBC w/ auto diff RDW % 11.4 16.1 13.10 FINAL Oziel angelo [facility] - [place], [address] [place] [id number] 0 Phone: () - 05/08 CMP Album in g/dL 3.2 5.2 4.0 FINAL Oziel angelo [facility], [address] [place] [address] [place] [id number] 0 Phone: () - 05/08 CMP Alkal ine phosp hatas e U/L 46.0 116.0 56 FINAL Oziel angelo [facility], [address] [place] [id number] 0 Phone: () - 05/08 CMP ALT/S GPT U/L 7.0 40.0 17 FINAL Oziel angelo [facility], [address] [place] [id number] 0 Phone: () - 05/08 CMP AST/S GOT U/L 13.0 40.0 21 FINAL Oziel angelo [facility], [address] [place] [id number] 0 Phone: () - 05/08 CMP BUN mg/dL 9.0 23.0 22 FINAL Oziel angelo [place] [address] [id number] 0 Phone: () - 05/08 CMP Calci um mg/dL 8.7 10.4 9.3 FINAL Oziel angelo [place] [address] [id number] 0 Phone: () - 05/08 CMP Chlor vipin mmol/L 96.0 114.0 112 FINAL Oziel angelo [place] [address] [id number] 0 Phone: () - 05/08 CMP CO2 [...] 96 hour stability window. FINAL Oziel angelo [place] [address] [id number] 0 Phone: () - 05/08 CMP Creat inine mg/dL 0.5 1.2 0.86 FINAL Oziel angelo [place] [address] [id number] 0 Phone: () - 05/08 CMP GFR estim ate ml/min /1.73m ^2 71.2 GFR is calculate d using the CKD-EPI equation. FINAL Oziel angelo [place] [address] [id number] 0 Phone: () - 05/08 CMP Gluco se mg/dL 73.0 126.0 77 FINAL Oziel angelo [place] [address] [id number] 0 Phone: () - 05/08 CMP Potas sium mmol/L 3.5 5.1 3.9 FINAL Oziel angelo [place] [address] [place] [id number] 0 Phone: () - 05/08 CMP Sodiu m mmol/L 136.0 145.0 148 High FINAL Oziel angelo [facility] [address] [facility] [address] [facility] [id number] 0 Phone: () - 05/08 CMP Bilir ubin, total mg/dL 0.3 1.2 0.4 FINAL Oziel angelo [facility] [address] [facility] [address] [facility] [address] [facility] [id number] 0 Phone: () - 05/08 CMP Total prote in g/dL 5.7 8.2 6.1 FINAL Oziel angelo [facility] [address] [facility] [address] [facility] [id number] 0 Phone: () - 05/08 TSH w/ refle x to free T4 TSH uIU/ml 0.32 5.0 1.36 Test performed at [facility] on a [employer] Immunoass ay Analyzer that uses an immunoenz ymometric sandwich assay for analysis. Patient testing should not be performed using multiple methodharley amador due to analytica l variation seen between test methodharley amador. FINAL Oziel angelo [facility] [address] [id number] 0 Phone: () - 07/23 [facility] [place] See all around patternmaker d 07/23 [facility] [place] See all around patternmaker d 11/03 CMP Album in g/dL 3.2 5.2 4.1 FINAL Oziel angelo [place] [address] [address] [facility] [address] [facility] [id number] 0 Phone: () - 11/03 CMP Alkal ine phosp hatas e U/L 46.0 116.0 59 FINAL Oziel angelo [place] [address] [address] [facility] [address] [facility] [id number] 0 Phone: () - 11/03 CMP ALT/S GPT U/L 7.0 40.0 <7 FINAL Oziel angelo [facility] [address] [facility] [address] [facility] 100 [facility] [id number] 0 Phone: () - 11/03 CMP AST/S GOT U/L 13.0 40.0 24 FINAL Oziel angelo [facility], [address] [facility] [address] [facility] [id number] 0 Phone: () - 11/03 CMP BUN mg/dL 9.0 23.0 16.0 FINAL Oziel angelo [facility] [address] [facility] [address] [facility] [id number] 0 Phone: () - 11/03 CMP Calci um mg/dL 8.7 10.4 9.1 FINAL Oziel angelo [place] [address] [id number] 0 Phone: () - 11/03 CMP Chlor vipin mmol/L 96.0 114.0 105 FINAL Oziel angelo [place] [address] [id number] 0 Phone: () - 11/03 CMP CO2 [...] 96 hour stability window. FINAL Oziel angelo [facility], [facility] [address] [id number] 0 Phone: () - 11/03 CMP Creat inine mg/dL 0.5 1.2 0.88 FINAL Oziel angelo [place] [address] [id number] 0 Phone: () - 11/03 CMP GFR estim ate ml/min /1.73m ^2 69.0 GFR is calculate d using the CKD-EPI equation. FINAL Oziel angelo [place] [address] [id number] 0 Phone: () - 11/03 CMP Gluco se mg/dL 73.0 126.0 105 FINAL Oziel angelo [place] [address] [id number] 0 Phone: () - 11/03 CMP Potas sium mmol/L 3.5 5.1 4.4 FINAL Oziel angelo [facility] - [place], [address] [place] [id number] 0 Phone: () - 11/03 CMP Sodiu m mmol/L 136.0 145.0 139 FINAL Oziel angelo [facility], [address] [place] [id number] 0 Phone: () - 11/03 CMP Bilir ubin, total mg/dL 0.3 1.2 0.6 FINAL Oziel angelo [facility], [address] [place] [id number] 0 Phone: () - 11/03 CMP Total prote in g/dL 5.7 8.2 6.6 FINAL Oziel angelo [facility], [address] [place] [id number] 0 Phone: () - 11/03 CBC w/ auto diff WBC K/uL 3.0 8.9 4.7 FINAL Oziel angelo [facility] - [place] , [address] [facility] [facility] [address] [facility] [place] [id number] 0 Phone: () - 11/03 CBC w/ auto diff HGB g/dL 11.3 15.2 11.6 FINAL Oziel angelo [facility] - [place] , [address] [facility] [address] [facility] [place] [id number] 0 Phone: () - 11/03 CBC w/ auto diff PLT K/uL 113.0 364.0 248 FINAL Oziel angelo [facility] - [place], [address] [facility] [place] [id number] 0 Phone: () - 11/03 CBC w/ auto diff Dave # (ANC) K/uL 1.6 6.6 2.9 FINAL Oziel angelo [facility] - [place], [address] [place] [address] [address] [facility] [place] [id number] 0 Phone: () - 11/03 CBC w/ auto diff Dave % % 43.0 74.0 60.9 FINAL Oziel [facility] [place] [facility] [place], [address] [place] [id number] 0 Phone: () - 11/03 CBC w/ auto diff IG % % 0.0 0.5 0.4 FINAL Oziel [facility] [place], [address] [place] [id number] 0 Phone: () - 11/03 CBC w/ auto diff IG # K/uL 0.0 0.03 0.02 FINAL Oziel [facility] [place], [address] [place] [id number] 0 Phone: () - 11/03 CBC w/ auto diff LY % % 14.0 41.0 26.8 FINAL Oziel [facility] [place], [address] [place] [id number] 0 Phone: () - 11/03 CBC w/ auto diff MO % % 6.0 15.0 8.5 FINAL Oziel [facility] [place], [address] [place] [id number] 0 Phone: () - 11/03 CBC w/ auto diff EO % % 0.0 7.0 3.0 FINAL Oziel [facility] [place], [address] [place] [id number] 0 Phone: () - 11/03 CBC w/ auto diff BA % % 0.0 2.0 0.4 FINAL Oziel [facility] [place], [address] [place] [id number] 0 Phone: () - 11/03 CBC w/ auto diff LY # K/uL 0.4 3.6 1.3 FINAL Oziel [facility] [place], [address] [place] [id number] 0 Phone: () - 11/03 CBC w/ auto diff MO # K/uL 0.2 1.3 0.4 FINAL Oziel [facility] [place], [address] [place] [id number] 0 Phone: () - 11/03 CBC w/ auto diff EO # K/uL 0.0 0.6 0.1 FINAL Oziel Tolbert a [facility] - [place], [address] [place] [id number] 0 Phone: () - 11/03 CBC w/ auto diff BA # K/uL 0.0 0.2 0.0 FINAL Oziel Tolbert a [facility] - [place], [address] [place] [id number] 0 Phone: () - 11/03 CBC w/ auto diff NRBC % #/100W BC 0.0 0.2 0.0 FINAL Oziel Tolbert a [facility] - [place], [address] [place] [id number] 0 Phone: () - 11/03 CBC w/ auto diff RBC M/uL 3.9 5.1 3.52 Low FINAL Oziel angelo [facility] - [place], [address] [place] [id number] 0 Phone: () - 11/03 CBC w/ auto diff HCT % 35.0 48.0 34.2 Low FINAL Oziel angelo [facility] - [place], [address] [place] [id number] 0 Phone: () - 11/03 CBC w/ auto diff MCV fL 80.0 104.0 97.2 FINAL Oziel angelo [facility] - [place], [address] [place] [id number] 0 Phone: () - 11/03 CBC w/ auto diff MCH pg 26.0 35.0 33.0 FINAL Oziel Tolbert a [facility] - [place], [address] [place] [id number] 0 Phone: () - 11/03 CBC w/ auto diff MCHC g/dL 30.0 35.0 33.9 FINAL Oziel angelo [facility] - [place], [address] [place] [id number] 0 Phone: () - 11/03 CBC w/ auto diff MPV fL 9.5 13.4 8.7 Low FINAL Oziel angelo [facility] - [place], [address] [place] [id number] 0 Phone: () - 11/03 CBC w/ auto diff RDW % 11.4 16.1 14.40 FINAL Oziel angelo [facility] - [place], [address] [place] [id number] 0 Phone: () - 02/08 TSH w/ refle x to free T4 TSH uIU/ml 0.32 5.0 3.61 Test performed at [facility] on a [employer] Immunoass ay Analyzer that uses an immunoenz ymometric sandwich assay for analysis. Patient testing should not be performed using multiple methodharley amador due to analytica l variation seen between test methodharley amador. FINAL Oziel angelo [facility] - [place], [address] [place] [id number] 0 Phone: () - 02/08 CBC w/ auto diff WBC K/uL 3.0 8.9 4.7 FINAL Oziel angelo [facility] - [place], [address] [place] [id number] 0 Phone: () - 02/08 CBC w/ auto diff HGB g/dL 11.3 15.2 11.0 Low FINAL Oziel angelo [facility] - [place], [address] [place] [id number] 0 Phone: () - 02/08 CBC w/ auto diff PLT K/uL 113.0 364.0 194 FINAL Oziel angelo [facility] - [place], [address] [place] [id number] 0 Phone: () - 02/08 CBC w/ auto diff Dave # (ANC) K/uL 1.6 6.6 2.7 FINAL [facility] [place] [facility] [place], [address] [place] [id number] 0 Phone: () - 02/08 CBC w/ auto diff Dave % % 43.0 74.0 57.2 FINAL Oziel [facility] - [place], [address] [place] [id number] 0 Phone: () - 02/08 CBC w/ auto diff IG % % 0.0 0.5 0.4 FINAL Oziel [facility] [place], [address] [place] [id number] 0 Phone: () - 02/08 CBC w/ auto diff IG # K/uL 0.0 0.03 0.02 FINAL Oizel [facility] - [place], [address] [place] [id number] 0 Phone: () - 02/08 CBC w/ auto diff LY % % 14.0 41.0 31.6 FINAL Oziel [facility] [place], [address] [place] [id number] 0 Phone: () - 02/08 CBC w/ auto diff MO % % 6.0 15.0 8.0 FINAL Oziel [facility] [place], [address] [place] [id number] 0 Phone: () - 02/08 CBC w/ auto diff EO % % 0.0 7.0 2.2 FINAL Oziel [facility] [place], [address] [place] [id number] 0 Phone: () - 02/08 CBC w/ auto diff BA % % 0.0 2.0 0.6 FINAL Oziel [facility] [place], [address] [place] [id number] 0 Phone: () - 02/08 CBC w/ auto diff LY # K/uL 0.4 3.6 1.5 FINAL Oziel [facility] [place], [address] [place] [id number] 0 Phone: () - 02/08 CBC w/ auto diff MO # K/uL 0.2 1.3 0.4 FINAL Oziel [facility] [place], [address] [place] [id number] 0 Phone: () - 02/08 CBC w/ auto diff EO # K/uL 0.0 0.6 0.1 FINAL Oziel [facility] [place], [address] [place] [id number] 0 Phone: () - 02/08 CBC w/ auto diff BA # K/uL 0.0 0.2 0.0 FINAL Oziel [facility] [place], [address] [place] [id number] 0 Phone: () - 02/08 CBC w/ auto diff NRBC % #/100W BC 0.0 0.2 0.0 FINAL Oziel [facility] - [place], [address] [place] [id number] 0 Phone: () - 02/08 CBC w/ auto diff RBC M/uL 3.9 5.1 3.26 Low FINAL Oziel [facility] [place], [address] [place] [id number] 0 Phone: () - 02/08 CBC w/ auto diff HCT % 35.0 48.0 32.9 Low FINAL Oziel [facility] [place], [address] [place] [id number] 0 Phone: () - 02/08 CBC w/ auto diff MCV fL 80.0 104.0 100.9 FINAL Oziel [facility] - [place], [address] [place] [id number] 0 Phone: () - 02/08 CBC w/ auto diff MCH pg 26.0 35.0 33.7 FINAL Oziel angelo [facility] - [place], [address] [place] [id number] 0 Phone: () - 02/08 CBC w/ auto diff MCHC g/dL 30.0 35.0 33.4 FINAL Oziel angelo [facility] - [place], [address] [place] [id number] 0 Phone: () - 02/08 CBC w/ auto diff MPV fL 9.5 13.4 9.0 Low FINAL Oziel angelo [facility] - [place], [address] [place] [id number] 0 Phone: () - 02/08 CBC w/ auto diff RDW % 11.4 16.1 13.70 FINAL Oziel angelo [facility] - [place], [address] [facility] [address] [place] [id number] 0 Phone: () - 02/08 CMP Album in g/dL 3.2 5.2 4.0 FINAL Oziel angelo [facility], [address] [facility] [id number] 0 Phone: () - 02/08 CMP Alkal ine phosp hatas e U/L 46.0 116.0 83 FINAL Oziel angelo [facility], [address] [place] [id number] 0 Phone: () - 02/08 CMP ALT/S GPT U/L 7.0 40.0 <7 FINAL Oziel angelo [facility], [address] [place] [id number] 0 Phone: () - 02/08 CMP AST/S GOT U/L 13.0 40.0 23 FINAL Oziel angelo [facility], [address] [place] [id number] 0 Phone: () - 02/08 CMP BUN mg/dL 9.0 23.0 17.0 FINAL Oziel angelo On[facility], [address] [place] [id number] 0 Phone: () - 02/08 CMP Calci um mg/dL 8.7 10.4 8.8 FINAL Oziel angelo [place] [address] [id number] 0 Phone: () - 02/08 CMP Chlor vipin mmol/L 96.0 114.0 109 FINAL Oziel angelo [place] [address] [id number] 0 Phone: () - 02/08 CMP CO2 [...] 96 hour stability window. FINAL Oziel angelo [place] [address] [id number] 0 Phone: () - 02/08 CMP Creat inine mg/dL 0.5 1.2 0.86 FINAL Oziel angelo [place] [address] [id number] 0 Phone: () - 02/08 CMP GFR estim ate ml/min /1.73m ^2 70.9 GFR is calculate d using the CKD-EPI equation. FINAL Oziel angelo [place] [address] [id number] 0 Phone: () - 02/08 CMP Gluco se mg/dL 73.0 126.0 84 FINAL Oziel angelo [place] [address] [address] [facility] [address] [id number] 0 Phone: () - 02/08 CMP Potas sium mmol/L 3.5 5.1 4.5 FINAL Oziel angelo [place] [address] [id number] 0 Phone: () - 02/08 CMP Sodiu m mmol/L 136.0 145.0 141 FINAL Oziel angelo [place] [address] [address] [facility] [address] [id number] 0 Phone: () - 02/08 CMP Bilir ubin, total mg/dL 0.3 1.2 0.3 FINAL Oziel angelo [facility] - [place], [address] [place] [id number] 0 Phone: () - 02/08 CMP Total prote in g/dL 5.7 8.2 6.1 FINAL Oziel angelo [facility] - [place], [address] [place] [id number] 0 Phone: () - 06/06 [facility] [place] See all around patternmaker d 08/09 CBC w/ auto diff WBC K/uL 3.0 8.9 3.5 FINAL Oziel angelo [facility] - [place], [address] [facility] [address] [place] [id number] 0 Phone: () - 08/09 CBC w/ auto diff HGB g/dL 11.3 15.2 11.7 FINAL Oziel angelo [facility] - [place], [address] [facility] [address] [place] [id number] 0 Phone: () - 08/09 CBC w/ auto diff PLT K/uL 113.0 364.0 196 FINAL Oziel angelo On[facility] - [place], [address] [place] [id number] 0 Phone: () - 08/09 CBC w/ auto diff Dave # (ANC) K/uL 1.6 6.6 1.9 FINAL Oziel angelo [facility] - [place], [address] [place] [id number] 0 Phone: () - 08/09 CBC w/ auto diff Dave % % 43.0 74.0 52.2 FINAL Oziel angelo On[facility] - [place], [address] [place] [id number] 0 Phone: () - 08/09 CBC w/ auto diff IG % % 0.0 0.5 0.3 FINAL Oziel angelo On[facility] - [place], [address] [place] [id number] 0 Phone: () - 08/09 CBC w/ auto diff IG # K/uL 0.0 0.03 0.01 FINAL Oziel angelo Oncology - [place], [address] [place] [id number] 0 Phone: () - 08/09 CBC w/ auto diff LY % % 14.0 41.0 35.0 FINAL Oziel angelo On[facility] - [place], [address] [place] [id number] 0 Phone: () - 08/09 CBC w/ auto diff MO % % 6.0 15.0 9.6 FINAL Oziel angelo On[facility] - [place], [address] [place] [id number] 0 Phone: () - 08/09 CBC w/ auto diff EO % % 0.0 7.0 2.3 FINAL Oziel angelo Oncology - [place], [address] [place] [id number] 0 Phone: () - 08/09 CBC w/ auto diff BA % % 0.0 2.0 0.6 FINAL Oziel angelo On[facility] - [place], [address] [place] [id number] 0 Phone: () - 08/09 CBC w/ auto diff LY # K/uL 0.4 3.6 1.2 FINAL Oziel angelo On[facility] - [place], [address] [place] [id number] 0 Phone: () - 08/09 CBC w/ auto diff MO # K/uL 0.2 1.3 0.3 FINAL Oziel angelo On[facility] - [place], [address] [place] [id number] 0 Phone: () - 08/09 CBC w/ auto diff EO # K/uL 0.0 0.6 0.1 FINAL Oziel angelo On[facility] - [place], [address] [place] [id number] 0 Phone: () - 08/09 CBC w/ auto diff BA # K/uL 0.0 0.2 0.0 FINAL Oziel angelo [facility] - [place], [address] [place] [id number] 0 Phone: () - 08/09 CBC w/ auto diff NRBC % #/100W BC 0.0 0.2 0.0 FINAL Oziel angelo On[facility] - [place], [address] [place] [id number] 0 Phone: () - 08/09 CBC w/ auto diff RBC M/uL 3.9 5.1 3.51 Low FINAL Oziel angelo [facility] - [place], [address] [place] [id number] 0 Phone: () - 08/09 CBC w/ auto diff HCT % 35.0 48.0 35.6 FINAL Oziel angelo [facility] - [place], [address] [place] [id number] 0 Phone: () - 08/09 CBC w/ auto diff MCV fL 80.0 104.0 101.4 FINAL Oziel angelo [facility] - [place], [address] [place] [id number] 0 Phone: () - 08/09 CBC w/ auto diff MCH pg 26.0 35.0 33.3 FINAL Oziel angelo [facility] - [place], [address] [place] [id number] 0 Phone: () - 08/09 CBC w/ auto diff MCHC g/dL 30.0 35.0 32.9 FINAL Oziel angelo On[facility] - [place], [address] [place] [id number] 0 Phone: () - 08/09 CBC w/ auto diff MPV fL 9.5 13.4 9.3 Low FINAL Oziel Tilleyot a On[facility] - [place], [address] [facility] [facility] [address] [place] [id number] 0 Phone: () - 08/09 CBC w/ auto diff RDW % 11.4 16.1 13.20 FINAL Oziel Tilleyot a [facility] - [place], [address] [facility] [address] [place] [id number] 0 Phone: () - 08/09 CMP Album in g/dL 3.5 5.0 4.1 FINAL Oziel Box * [place] [facility], [address] [facility] [id number] 0 08/09 CMP Alkal ine phosp hatas e U/L 36.0 125.0 66 FINAL Oziel Box * [place] [facility], [address] [facility] [id number] 0 08/09 CMP ALT/S GPT U/L 0.0 34.0 6 FINAL Oziel Box * [place] [facility], [address] [facility] [id number] 0 08/09 CMP AST/S GOT U/L 14.0 36.0 28 FINAL Oziel Box * [place] [facility], [address] [facility] [id number] 0 08/09 CMP BUN mg/dL 7.0 17.0 17.0 FINAL Oziel Box * [place] [facility], [address] [facility] [id number] 0 08/09 CMP Calci um mg/dL 8.4 10.2 9.4 FINAL Oziel Box * [facility], [address] [facility] [id number] 0 08/09 CMP Chlor vipin mmol/L 96.0 107.0 106 FINAL Oziel Box * [facility], [address] [facility] [id number] 0 08/09 CMP CO2 mmol/L 22.0 30.0 [...] window. [facility]AL [facility] [address] [facility] [id number] 0 08/09 CMP Creat inine mg/dL 0.66 1.25 0.70 FINAL [facility] [address] [id number] 0 08/09 CMP GFR estim ate ml/min /1.73m ^2 90.4 GFR is calculate d using the CKD-EPI equation. FINAL [facility], [address] [id number] 0 08/09 CMP Gluco se mg/dL 74.0 100.0 87 FINAL Oziel Tilleyot a [facility], [address] [facility] [id number] 0 08/09 CMP Potas sium mmol/L 3.5 5.1 4.2 FINAL Oziel Tilleyot [facility], [address] [facility] [id number] 0 08/09 CMP Sodiu m mmol/L 137.0 145.0 139 FINAL Oziel Tilleyot [facility], [address] [id number] 0 08/09 CMP Bilir ubin, total mg/dL 0.2 1.3 0.3 FINAL Oziel Box * [place] [facility] [place], [address] [facility] [id number] 0 08/09 CMP Total prote in g/dL 6.3 8.2 6.7 FINAL Oziel Box * [place] [facility] [place], [address] [facility] [id number] 0 08/09 TSH w/ refle x to free T4 TSHR- v mIU/ml 0.47 4.68 0.74 FINAL Oziel Box * [place] [facility], [address] [facility] [id number] 0 02/13 CBC w/ auto diff WBC K/uL 3.0 8.9 4.7 FINAL Oziel FREEMAN On[facility] - [place], [address] [place] [id number] 0 02/13 CBC w/ auto diff HGB g/dL 11.3 15.2 10.4 Low FINAL Oziel FREEMAN [facility] - [place], [address] [place] [id number] 0 02/13 CBC w/ auto diff PLT K/uL 113.0 364.0 252 FINAL Oziel FREEMAN [facility] - [place], [address] [place] [id number] 0 02/13 CBC w/ auto diff Dave # (ANC) K/uL 1.6 6.6 2.4 FINAL Oziel FREEMAN [facility] - [place], [address] [place] [id number] 0 02/13 CBC w/ auto diff Dave % % 43.0 74.0 51.3 FINAL Oziel FREEMAN [facility] - [place], [address] [place] [id number] 0 02/13 CBC w/ auto diff IG % % 0.0 0.5 0.2 FINAL Oziel FREEMAN [facility] - [place], [address] [place] [id number] 0 02/13 CBC w/ auto diff IG # K/uL 0.0 0.03 0.01 FINAL Oziel FREEMAN [facility] - [place], [address] [place] [id number] 0 02/13 CBC w/ auto diff LY % % 14.0 41.0 33.5 FINAL Oziel FREEMAN [facility] - [place], [address] [place] [id number] 0 02/13 CBC w/ auto diff MO % % 6.0 15.0 8.8 FINAL Oziel FREEMAN [facility] - [place], [address] [place] [id number] 0 02/13 CBC w/ auto diff EO % % 0.0 7.0 5.6 FINAL Oziel FREEMAN [facility] - [place], [address] [place] [id number] 0 02/13 CBC w/ auto diff BA % % 0.0 2.0 0.6 FINAL Oziel FREEMAN [facility] - [place], [address] [place] [id number] 0 02/13 CBC w/ auto diff LY # K/uL 0.4 3.6 1.6 FINAL Oziel FREEMAN [facility] - [place], [address] [place] [id number] 0 02/13 CBC w/ auto diff MO # K/uL 0.2 1.3 0.4 FINAL Oziel FREEMAN [facility] - [place], [address] [place] [id number] 0 02/13 CBC w/ auto diff EO # K/uL 0.0 0.6 0.3 FINAL Oziel FREEMAN [facility] - [place], [address] [place] [id number] 0 02/13 CBC w/ auto diff BA # K/uL 0.0 0.2 0.0 FINAL Oziel FREEMAN [facility] - [place], [address] [place] [id number] 0 02/13 CBC w/ auto diff NRBC % #/100W BC 0.0 0.2 0.0 FINAL Oziel FREEMAN [facility] - [place], [address] [place] [id number] 0 02/13 CBC w/ auto diff RBC M/uL 3.9 5.1 3.24 Low FINAL Oziel FREEMAN [facility] - [place], [address] [place] [id number] 0 02/13 CBC w/ auto diff HCT % 35.0 48.0 32.3 Low FINAL Oziel FREEMAN [facility] - [place], [address] [place] [id number] 0 02/13 CBC w/ auto diff MCV fL 80.0 104.0 99.7 FINAL Oziel FREEMAN [facility] - [place], [address] [place] [id number] 0 02/13 CBC w/ auto diff MCH pg 26.0 35.0 32.1 FINAL Oziel FREEMAN [facility] - [place], [address] [place] [id number] 0 02/13 CBC w/ auto diff MCHC g/dL 30.0 35.0 32.2 FINAL Oziel FREEMAN [facility] - [place], [address] [place] [id number] 0 02/13 CBC w/ auto diff MPV fL 9.5 13.4 9.1 Low FINAL Oziel FREEMAN [facility] - [place], [address] [place] [id number] 0 02/13 CBC w/ auto diff RDW % 11.4 16.1 13.70 FINAL Oziel RFEEMAN Oncology - [place], [address] [place] [id number] 0 02/13 CMP Album in g/dL 3.5 5.0 3.5 FINAL Oziel Box * [place] [facility], [address] [facility] [id number] 0 02/13 CMP Alkal ine phosp hatas e U/L 36.0 125.0 75 FINAL Oziel Box * [place] [facility], [address] [facility] [id number] 0 02/13 CMP ALT/S GPT U/L 0.0 34.0 <4 Repeate d FINAL Oziel Box * [place] [facility] - [place], [address] [facility] [id number] 0 02/13 CMP AST/S GOT U/L 14.0 36.0 17 FINAL Oziel Box * [place] [facility] [place], [address] [facility] [id number] 0 02/13 CMP BUN mg/dL 7.0 17.0 18.0 High FINAL Oziel Card [place] [facility], [address] [facility] [id number] 0 02/13 CMP Calci um mg/dL 8.4 10.2 9.2 FINAL Oziel Card [place] [facility], [address] [facility] [id number] 0 02/13 CMP Chlor vipin mmol/L 96.0 107.0 109 High FINAL Oziel Card [place] [facility], [address] [facility] [id number] 0 02/13 CMP CO2 mmol/L 22.0 30.0 [...] hour stability window. FINAL Oziel FREEMAN On[facility], [address] [facility] [id number] 0 02/13 CMP Creat inine mg/dL 0.66 1.25 0.80 FINAL Oziel Card [place] [facility], [address] [facility] [id number] 0 02/13 CMP GFR estim ate ml/min /1.73m ^2 76.8 GFR is calculate d using the CKD-EPI equation. FINAL Oziel Card [place] [facility], [address] [facility] [id number] 0 02/13 CMP Gluco se mg/dL 74.0 100.0 84 FINAL Oziel Card [place] [facility], [address] [facility] [id number] 0 02/13 CMP Potas sium mmol/L 3.5 5.1 4.4 FINAL Oziel Box * [place] [facility] - [place], [address] [facility] [id number] 0 02/13 CMP Sodiu m mmol/L 137.0 145.0 137 FINAL Oziel Box * [place] [facility] [place], [address] [facility] [id number] 0 02/13 CMP Bilir ubin, total mg/dL 0.2 1.3 0.5 FINAL Oziel Box * [place] [facility] [place], [address] [facility] [id number] 0 02/13 CMP Total prote in g/dL 6.3 8.2 6.2 Low FINAL Oziel Box * [place] [facility] [place], [address] [facility] [id number] 0 04/03 [facility] [place] See all around patternmaker d 08/14 CMP Album in g/dL 3.5 5.0 3.7 FINAL Oziel Box * [facility] , [address] [facility] [id number] 0 08/14 CMP Alkal ine phosp hatas e U/L 36.0 125.0 68 FINAL Oziel Box * [place] [facility] , [address] [facility] [id number] 0 08/14 CMP ALT/S GPT U/L 0.0 34.0 10 FINAL Oziel Box * [place] [facility] , [address] [facility] [id number] 0 08/14 CMP AST/S GOT U/L 14.0 36.0 28 FINAL Oziel Box * [facility] , [address] [facility] [id number] 0 08/14 CMP BUN mg/dL 7.0 17.0 25.0 High FINAL Oziel Box * [facility] , [address] [facility] [id number] 0 08/14 CMP Calci um mg/dL 8.4 10.2 8.7 FINAL Oziel Box * [facility] , [address] [facility] [id number] 0 08/14 CMP Chlor vipin mmol/L 96.0 107.0 109 High FINAL Oziel Box * [facility] , [address] [facility] [address] [facility] [id number] 0 08/14 CMP CO2 mmol/L 22.0 30.0 [...] hour stability window. FINAL Oziel Box * [facility] , [address] [facility] [address] [facility] [id number] 0 08/14 CMP Creat inine mg/dL 0.66 1.25 0.90 FINAL Oziel Box * [facility] , [address] [facility] [id number] 0 08/14 CMP GFR estim ate ml/min /1.73m ^2 66.5 GFR is calculate d using the CKD-EPI equation. FINAL Oziel Box * [facility] , [address] [id number] 0 08/14 CMP Gluco se mg/dL 74.0 100.0 95 FINAL Oziel Box * [facility] , [address] [facility] [id number] 0 08/14 CMP Potas sium mmol/L 3.5 5.1 4.5 FINAL Oziel Box * [facility] , [address] [facility] [id number] 0 08/14 CMP Sodiu m mmol/L 137.0 145.0 137 FINAL Oziel Box * [facility] , [address] [facility] [id number] 0 08/14 CMP Bilir ubin, total mg/dL 0.2 1.3 0.8 FINAL Oziel Box * [facility] , [address] [facility] [id number] 0 08/14 CMP Total prote in g/dL 6.3 8.2 6.5 FINAL Oziel Box * [facility] , [address] [facility] [id number] 0 08/14 CBC w/ auto diff WBC K/uL 3.0 8.9 4.7 FINAL Oziel Box [place] [facility] , [address] [place] [id number] 0 08/14 CBC w/ auto diff HGB g/dL 11.3 15.2 11.5 FINAL Oziel Box [place] [facility] , [address] [place] [id number] 0 08/14 CBC w/ auto diff PLT K/uL 113.0 364.0 211 FINAL Oziel Box [place] [facility] , [address] [place] [id number] 0 08/14 CBC w/ auto diff Dave # (ANC) K/uL 1.6 6.6 2.9 FINAL Oziel Box [place] [facility] , [address] [place] [id number] 0 08/14 CBC w/ auto diff Dave % % 43.0 74.0 61.3 FINAL Oziel Box [place] [facility] , [address] [place] [id number] 0 08/14 CBC w/ auto diff IG % % 0.0 0.5 0.2 FINAL Oziel Box [place] [facility] , [address] [place] [id number] 0 08/14 CBC w/ auto diff IG # K/uL 0.0 0.03 0.01 FINAL Oziel Box [place] [facility] , [address] [place] [id number] 0 08/14 CBC w/ auto diff LY % % 14.0 41.0 25.6 FINAL Oziel Box [place] [facility] , [address] [place] [id number] 0 08/14 CBC w/ auto diff MO % % 6.0 15.0 8.7 FINAL Oziel Box [place] [facility] , [address] [place] [id number] 0 08/14 CBC w/ auto diff EO % % 0.0 7.0 3.8 FINAL Oziel Box [place] [facility] , [address] [place] [id number] 0 08/14 CBC w/ auto diff BA % % 0.0 2.0 0.4 FINAL Oziel Box [place] [facility] , [address] [place] [id number] 0 08/14 CBC w/ auto diff LY # K/uL 0.4 3.6 1.2 FINAL Oziel Box [place] [facility] , [address] [place] [id number] 0 08/14 CBC w/ auto diff MO # K/uL 0.2 1.3 0.4 FINAL Oziel Box [place] [facility] , [address] [place] [id number] 0 08/14 CBC w/ auto diff EO # K/uL 0.0 0.6 0.2 FINAL Oziel Box [place] [facility] , [address] [place] [id number] 0 08/14 CBC w/ auto diff BA # K/uL 0.0 0.2 0.0 FINAL Oziel Bxo [place] [facility] , [address] [place] [id number] 0 08/14 CBC w/ auto diff NRBC % #/100W BC 0.0 0.2 0.0 FINAL Oziel Box [place] [facility] , [address] [place] [id number] 0 08/14 CBC w/ auto diff RBC M/uL 3.9 5.1 3.60 Low FINAL Oziel Box [place] [facility] , [address] [place] [id number] 0 08/14 CBC w/ auto diff HCT % 35.0 48.0 35.2 FINAL Oziel Box [place] [facility] , [address] [place] [id number] 0 08/14 CBC w/ auto diff MCV fL 80.0 104.0 97.8 FINAL Oziel Box [place] [facility] , [address] [place] [id number] 0 08/14 CBC w/ auto diff MCH pg 26.0 35.0 31.9 [facility] , [address] [facility] [address] [facility] [id number] 0 08/14 CBC w/ auto diff MCHC g/dL 30.0 35.0 32.7 [facility]AL [facility] , [address] [facility] [address] [facility] [id number] 0 08/14 CBC w/ auto diff MPV fL 9.5 13.4 9.0 Low [facility] , [address] [facility] [address] [facility] [id number] 0 08/14 CBC w/ auto diff RDW % 11.4 16.1 13.60 FINAL [facility] , [address] [facility] [address] [facility] [id number] 0 Medications Date Name Route Dose Frequency Instructions Start Date End Date Status Baclofen Oral daily act charles Vitamin T24-Uriks Acid Oral 500 mcg-400 mcg daily active [...] concentration must be 0.3-1.2 mg/mL.Administ er using [id number] ining equipment and through an in-line 0.22 [...]
--- NOTE | 2024-09-18 09:30 | ED.GENADULT ---
HPI - General Adult General Chief complaint: Dental/Oral/Mouth Injury/Pain Stated complaint: something white inside of her mouth. Time Seen by Provider: 09/18/24 08:55 Source: patient and family Mode of arrival: ambulatory Limitations: no limitations History of Present Illness HPI narrative: 74-year-old female coming in today with concerns about a lesion inside her mouth. She noticed it there yesterday. She states that it is painful. She also noticed some swelling around her chin yesterday. She denies fevers or other systemic symptoms. No difficulty breathing or swallowing. Appetite is unchanged. No pain on the outside of the face. Related Data Home Medications ?Medication ?Instructions ?Recorded ?Confirmed carbidopa 25 mg-levodopa 100 mg tab PO 06/07/23 09/14/24 tablet carbidopa ER 50 mg-levodopa 200 mg 1 tab PO QPM 06/07/23 09/18/24 tablet,extended release calcium gluconate 60 mg calcium 60 mg PO QDAY 04/27/24 09/18/24 (650 mg) tablet gabapentin 300 mg capsule 300 mg PO QDAY 04/27/24 09/18/24 magnesium 1 tab PO DAILY 04/27/24 09/18/24 mecobalamin (vitamin B12) 1 tab PO DAILY 04/27/24 09/18/24 baclofen 10 mg tablet 10 mg PO DAILY 09/14/24 09/18/24 escitalopram oxalate 10 mg tablet 10 mg PO DAILY 09/14/24 09/18/24 Previous Rx's ?Medication ?Instructions ?Recorded levothyroxine 75 mcg tablet 75 mcg PO DAILY #90 tabs 06/06/24 Allergies Allergy/AdvReac Type Severity Reaction Status Date / Time amoxicillin Allergy Severe Hives Verified 09/18/24 08:44 ciprofloxacin Allergy Mild Hives Verified 09/18/24 08:44 nitrofurantoin Allergy Mild Hives Verified 09/18/24 08:44 penicillin V Allergy Mild Unknown Verified 09/18/24 08:44 Review of Systems Status of ROS: Reports: 6 or more systems reviewed and unremarkable except as noted in History and below [facility] Medical History History of lung cancer ?Z85.118 - Personal history of other malignant neoplasm of bronchus and lung (ICD-10) History of esophageal stricture ?Z87.19 - Personal history of other diseases of the digestive system (ICD-10) History of parotitis ?Z87.19 - Personal history of other diseases of the digestive system (ICD-10) Surgical History History of arthroscopy of right knee (10/29/95) ?Z98.890 - Other specified postprocedural states (ICD-10) 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) ?Z96.651 - Presence of right artificial knee joint (ICD-10) History of phacoemulsification of cataract of both eyes with intraocular lens implantation ?Z98.41 - Cataract extraction status, right eye (ICD-10) ?Z98.42 - Cataract extraction status, left eye (ICD-10) ?Z96.1 - Presence of intraocular lens (ICD-10) History of YAG laser capsulotomy of lens of right eye ?Z98.41 - Cataract extraction status, right eye (ICD-10) History of tonsillectomy (1960) ?Z90.89 - Acquired absence of other organs (ICD-10) History of bilateral cataract extraction (2008) ?Z98.41 - Cataract extraction status, right eye (ICD-10) ?Z98.42 - Cataract extraction status, left eye (ICD-10) History of cholecystectomy ?Z90.49 - Acquired absence of other specified parts of digestive tract (ICD-10) H/O right breast biopsy ?Z98.890 - Other specified postprocedural states (ICD-10) History of appendectomy ?Z90.49 - Acquired absence of other specified parts of digestive tract (ICD-10) Social History What is your current living situation?: I presently have a place to live Problems where you live: no known problems In the past 12 months, utilities in danger of being shut off: no In past 12 months, lack of transportation kept you from medical appts, meetings, work, or getting things needed for daily living: no In the past 12 mos, have been you worried that your food would run out before you had money to buy more?: never true In the past 12 mos, the food you bought just didn't last and you didn't have money to buy more?: never true Smoking Status: Current some day smoker Do you use any of these nicotine containing products: Vaping Products Second hand tobacco smoke exposure: No How often do you have a drink containing alcohol: never How often do you have six or more drinks on one occasion: Never AUDIT-C Alcohol total score: 0 Non-prescribed substance use: denies use How often does anyone, including family, friends and others, physically hurt you: never How often does anyone, including family, friends and others, insult or talk down to you: never How often does anyone, including family, friends and others, threaten you with harm: never How often does anyone, including family, friends and others, scream or curse at you: never service: No Exam Narrative: Exam Narrative: Well-nourished well-developed patient in no acute distress. Patient is cooperative and answers questions appropriately. She does appear to be slightly forgetful, has slight difficulty processing information. HEENT: Normocephalic atraumatic. Pupils are equally round reactive to light. Extraocular muscles are intact. Conjunctivae are moist without any icterus noted. Moist mucous membranes. Posterior pharynx is normal. Neck is soft without any lymphadenopathy. Patient has a canker sore on the buccal mucosa at the site where she has discomfort. She has some slight erythema and irritation of the skin around the mouth and on the chin. The area is not hot. There are no crusted lesions. Const: Vital Signs, click to edit/add: Vital Signs - 24 hr 09/18/24 08:39 Temperature 96.5 F L Pulse Rate [Right Pulse Oximeter] 57 L Respiratory Rate 18 Blood Pressure [Ri ght Forearm] 138/75 Pulse Oximetry 100 Oxygen Delivery Me thod Room Air Course Vital Signs Vital signs: Initial Vital Signs Temperature 96.5 F L 09/18/24 08:39 Temperature Source Temporal Artery Scan 09/18/24 08:39 Pulse Rate 57 L 09/18/24 08:39 Pulse Rhythm Regular 09/18/24 08:39 Pulse Strength 3+ Normal 09/18/24 08:39 Respiratory Rate 18 09/18/24 08:39 Blood Pressure 138/75 09/18/24 08:39 Blood Pressure Mean 96 09/18/24 08:39 Blood Pressure Position Sitting 09/18/24 08:39 Pulse Oximetry 100 09/18/24 08:39 Oxygen Delivery Method Room Air 09/18/24 08:39 Vital Signs Temperature 96.5 F L 09/18/24 08:39 Pulse Rate 57 L 09/18/24 08:39 Respiratory Rate 18 09/18/24 08:39 Blood Pressure 138/75 09/18/24 08:39 Pulse Oximetry 100 09/18/24 08:39 Oxygen Delivery Method Room Air 09/18/24 08:39 Temperature 96.5 F L 09/18/24 08:39 Pulse Rate 57 L 09/18/24 08:39 Respiratory Rate 18 09/18/24 08:39 Blood Pressure 138/75 09/18/24 08:39 Pulse Oximetry 100 09/18/24 08:39 Oxygen Delivery Method Room Air 09/18/24 08:39 Medical Decision Making MDM Narrative Medical decision making narrative: 74-year-old female with perioral dermatitis with irritated skin around the mouth and chin, canker sore. We discussed steroid cream to the chin and and thus all cream to the inside of the mouth. Discharge Plan Discharge Clinical Impression: Canker sore, Dermatitis, perioral Patient Disposition: Home, Self-Care Condition: Stable Additional Instructions: Use cream that was given to you today around the mouth and chin 2 times per day for the next 7 days. Also recommend using rysn-luy-vcxktef cortisone 10 cream around the chin area for the next 3-5 days. For the canker sore inside the mouth you can use Anbesol [id number]-[id number] ointment. If the rash around the mouth is getting worse over the next 48 hours, follow-up with your primary care provider. Prescriptions: No Action baclofen 10 mg tablet 10 mg PO DAILY escitalopram oxalate 10 mg tablet 10 mg PO DAILY calcium gluconate 60 mg calcium (650 mg) tablet 60 mg PO QDAY mecobalamin (vitamin B12) 1 tab PO DAILY gabapentin 300 mg capsule 300 mg PO QDAY magnesium 1 tab PO DAILY carbidopa-levodopa 50-200 mg tablet extended release 1 tab PO QPM carbidopa-levodopa 25-100 mg tablet PO levothyroxine 75 mcg tablet 75 mcg PO DAILY Qty: 90 3RF Follow Up/Referrals: Annie Worthington MD [Primary Care Provider, Internal Medicine] Stand Alone Forms: [facility] Info Instructions
--- OUTSIDE RECORDS SUMMARY | 2024-09-18 09:48 | XMS_ITS | CCD ---
Author Name Interface, V1Vehrbof lity Address [address] [address] [facility] Address [address] [address] Care Team Providers [facility] Ambassador Name Role Phone Oziel Box MD Unavailable [...] Ordered By Specimen Source Lab Address 04/03 [facility] [place] See wood heel attacher d 08/14 CBC w/ auto diff Dave # (ANC) K/uL 1.6 6.6 2.9 [facility]AL [facility] , [address] [place] [address] d [address] [place] [id number] 0 08/14 CBC w/ auto diff IG % % 0.0 0.5 0.2 FINAL [facility] , [address] [facility] [address] [place] [id number] 0 08/14 CBC w/ auto diff MO # K/uL 0.2 1.3 0.4 FINAL Oziel Box [facility] , [address] [facility] [address] [place] [id number] 0 08/14 CBC w/ auto diff MCV fL 80.0 104.0 97.8 FINAL [facility] , [facility] [address] [facility] [address] [place] [id number] 0 08/14 CBC w/ auto diff IG # K/uL 0.0 0.03 0.01 FINAL Oziel Box [place] [facility] , [address] [place] [id number] 0 08/14 CBC w/ auto diff MO % % 6.0 15.0 8.7 FINAL Oziel Box [place] [facility] , [address] [place] [id number] 0 08/14 CBC w/ auto diff EO # K/uL 0.0 0.6 0.2 FINAL Oziel Box [place] [facility] , [address] [place] [id number] 0 08/14 CBC w/ auto diff EO % % 0.0 7.0 3.8 FINAL Ozeil Box [place] [facility] , [address] [place] [id number] 0 08/14 CBC w/ auto diff RBC M/uL 3.9 5.1 3.60 Low FINAL Oziel Box [place] [facility] , [address] [place] [id number] 0 08/14 CBC w/ auto diff MPV fL 9.5 13.4 9.0 Low FINAL Oziel Box [place] [facility] , [address] [place] [id number] 0 08/14 CBC w/ auto diff WBC K/uL 3.0 8.9 4.7 FINAL Oziel Box [place] [facility] , [address] [place] [id number] 0 08/14 CBC w/ auto diff PLT K/uL 113.0 364.0 211 FINAL Oziel Box [place] [facility] , [address] [place] [id number] 0 08/14 CBC w/ auto diff BA % % 0.0 2.0 0.4 FINAL Oziel Box [place] [facility] , [address] [place] [id number] 0 08/14 CBC w/ auto diff BA # K/uL 0.0 0.2 0.0 FINAL Oziel Box [place] [facility] , [address] [place] [id number] 0 08/14 CBC w/ auto diff HGB g/dL 11.3 15.2 11.5 FINAL Oziel Box [place] [facility] , [address] [place] [id number] 0 08/14 CBC w/ auto diff RDW % 11.4 16.1 13.60 FINAL Oziel Box [place] [facility] , [address] [place] [id number] 0 08/14 CBC w/ auto diff LY % % 14.0 41.0 25.6 FINAL Oziel Box [place] [facility] , [address] [place] [id number] 0 08/14 CBC w/ auto diff LY # K/uL 0.4 3.6 1.2 FINAL Oziel Box [place] [facility] , [address] [place] [id number] 0 08/14 CBC w/ auto diff MCH pg 26.0 35.0 31.9 FINAL Oziel Box [place] [facility] , [address] [place] [id number] 0 08/14 CBC w/ auto diff MCHC g/dL 30.0 35.0 32.7 FINAL Oziel Box [facility] , [address] [facility] [address] [facility] [id number] 0 08/14 CBC w/ auto diff NRBC % #/100W BC 0.0 0.2 0.0 FINAL Oziel Box [facility] , [address] [facility] [address] [facility] [address] [facility] [id number] 0 08/14 CBC w/ auto diff HCT % 35.0 48.0 35.2 FINAL Oziel Box [facility] , [address] [facility] [address] [facility] [id number] 0 08/14 CBC w/ auto diff Dave % % 43.0 74.0 61.3 FINAL Oziel Box [facility] , [address] [facility] [address] [facility] [id number] 0 08/14 CMP Alkal ine phosp hatas e U/L 36.0 125.0 68 FINAL Oziel Box * [facility] , [address] [id number] 0 08/14 CMP ALT/S GPT U/L 0.0 34.0 10 FINAL Oziel Box * [facility] , [address] [facility] [address] [facility] [id number] 0 08/14 CMP Calci um mg/dL 8.4 10.2 8.7 FINAL Ozile Box * [facility] , [address] [facility] [address] [id number] 0 08/14 CMP GFR estim ate ml/min /1.73m ^2 66.5 GFR is calculate d using the CKD-EPI equation. FINAL Oziel Box * [facility] , [address] [facility] [address] [facility] [id number] 0 08/14 CMP CO2 mmol/L 22.0 30.0 [...] hour stability window. FINAL Oziel Box * [facility] , [facility] [address] [facility] [id number] 0 08/14 CMP Gluco se mg/dL 74.0 100.0 95 FINAL Oziel Box * [facility] , [facility] [address] [id number] 0 08/14 CMP Chlor vipin mmol/L 96.0 107.0 109 High FINAL Oziel Box * [facility] , [address] [facility] [address] [id number] 0 08/14 CMP Total prote in g/dL 6.3 8.2 6.5 FINAL Oziel Box * [facility] , [address] [facility] [address] [id number] 0 08/14 CMP BUN mg/dL 7.0 17.0 25.0 High FINAL Oziel Box * [facility] , [address] [facility] [address] [id number] 0 08/14 CMP Creat inine mg/dL 0.66 1.25 0.90 FINAL Oziel Box * [facility] , [address] [facility] [address] [id number] 0 08/14 CMP AST/S GOT U/L 14.0 36.0 28 FINAL Oziel Box * [facility] , [facility] [address] [id number] 0 08/14 CMP Album in g/dL 3.5 5.0 3.7 FINAL Oziel Box * [facility] , [address] [facility] [address] [id number] 0 08/14 CMP Bilir ubin, total mg/dL 0.2 1.3 0.8 FINAL Oziel Box * [facility] , [facility] [address] [id number] 0 08/14 CMP Sodiu m mmol/L 137.0 145.0 137 FINAL Oziel Box * [facility] , [facility] [address] [id number] 0 08/14 CMP Potas sium mmol/L 3.5 5.1 4.5 FINAL Oziel Box * [facility] , [facility] [address] [id number] 0 Medications Date Name Route Dose Frequency Instructions Start Date End Date Status Cephalexin Oral Star ting for 10 days for UTI inactive Zinc Oral po 1.0 daily inactiv e Sennosides Oral orally 1.0 tablet daily inactive Vitamin Z45-Ucmsb Acid Oral 500 mcg-400 mcg daily active Docusate Sodium Oral QD inactive Gabapentin Oral QD a ctive Calcium Carbonate Oral QD active Baclofen Oral daily act charles Clindamycin Oral BID inactive Multivitamins Oral Tablet daily inactive Prednisone Oral daily 40mg daily stopped Probiotics Oral daily i nactive Magnesium Oxide Oral daily stopped Ascorbic Acid Oral 1.0 daily inactive Carbidopa-Levodop a Oral 25 mg-100 mg PO 1.5 tablet TID active Cholecalciferol Oral QD active Omeprazole Oral Delayed Release Capsule po daily stopped Cholecalciferol Oral 50.0 christos;ly inactive Duloxetine Oral Delayed Release PO 1.0 capsule,d elayed release(D R/EC) daily inactive Nicotine Transdermal Patch 21 mg/24 hr inactive Multivitamins Oral Tablet inactive Magnesium Citrate Oral 800.0 mg daily [...] & w /o contrast metastatic lung cancer, [employer]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
--- OUTSIDE RECORDS SUMMARY | 2024-09-18 09:48 | XMS_ITS ---
Author Name Interface, [id number] l[employer] Address [address] [address] [facility] Address [address] [address] Allergies and Adverse Reactions Medication/Group Name Reaction [...] 20 MIN 05/13/2022 APPOINTMENT CHART CHECK 5 TX N 05/08/2022 APPOINTMENT OV 20 MIN 05/08/2022 [...] 15 MIN 02/20/2022 APPOINTMENT CHART CHECK 5 TX N 01/16/2022 APPOINTMENT PORT DRAW 15 MIN [...] 30 MIN 10/02/2021 APPOINTMENT CHART CHECK 5 TX N 10/01/2021 APPOINTMENT OUTSIDE TEST 5 M [...] uIU/ml 0.32 5.0 1.33 Test performed at [facility] on a Hers Immunoass ay Analyzer that uses an immunoenz ymometric sandwich assay for analysis. Patient testing should not be performed using multiple methodharley amador due to analytica l variation seen between test methodharley amador. FINAL [facility]iel Tilley [facility] - [place], [address] [facility] [phone] 0 Phone: () - 07/15 /2022 CBC w/ auto diff WBC K/uL 3.0 8.9 4.1 FINAL [facility]iel [facility] - [place], [address] [place] [id number] 0 Phone: () - 09/26 CBC w/ auto diff HGB g/dL 11.3 15.2 11.3 FINAL [facility] [place], [address] [place] [phone] 0 Phone: () - 09/26 CBC w/ auto diff PLT K/uL 113.0 364.0 210 FINAL [facility] - [place], [address] [place] [phone] 0 Phone: () - 09/26 CBC w/ auto diff Dave # (ANC) K/uL 1.6 6.6 2.4 FINAL [facility] - [place], [address] [place] [id number] 0 Phone: () - 09/26 CBC w/ auto diff Dave % % 43.0 74.0 58.2 FINAL [facility]iel [facility] - [place], [address] [place] [id number] 0 Phone: () - 09/26 CBC w/ auto diff IG % % 0.0 0.5 0.2 FINAL [facility] - [place], [address] [place] [id number] 0 Phone: () - 09/26 CBC w/ auto diff IG # K/uL 0.0 0.03 0.01 FINAL [facility] - [place], [address] [place] [id number] 0 Phone: () - 09/26 CBC w/ auto diff LY % % 14.0 41.0 27.0 FINAL [facility] - [place], [address] [place] [id number] 0 Phone: () - 09/26 CBC w/ auto diff MO % % 6.0 15.0 10.5 FINAL [facility] - [place], [address] [place] [id number] 0 Phone: () - 09/26 CBC w/ auto diff EO % % 0.0 7.0 3.6 FINAL [facility] - [place], [address] [place] [id number] 0 Phone: () - 09/26 CBC w/ auto diff BA % % 0.0 2.0 0.5 FINAL [facility] - [place], [address] [place] [id number] 0 Phone: () - 09/26 CBC w/ auto diff LY # K/uL 0.4 3.6 1.1 FINAL [facility] - [place], [address] [place] [id number] 0 Phone: () - 09/26 CBC w/ auto diff MO # K/uL 0.2 1.3 0.4 FINAL [facility] - [place], [address] [place] [id number] 0 Phone: () - 09/26 CBC w/ auto diff EO # K/uL 0.0 0.6 0.2 FINAL [facility] - [place], [address] [place] [id number] 0 Phone: () - 09/26 CBC w/ auto diff BA # K/uL 0.0 0.2 0.0 FINAL [facility] - [place], [address] [place] [id number] 0 Phone: () - 09/26 CBC w/ auto diff NRBC % #/100W BC 0.0 0.2 0.0 FINAL [facility] - [place], [address] [place] [id number] 0 Phone: () - 09/26 CBC w/ auto diff RBC M/uL 3.9 5.1 3.38 Low FINAL [facility] - [place], [address] [place] [id number] 0 Phone: () - 09/26 CBC w/ auto diff HCT % 35.0 48.0 34.3 Low FINAL [facility] - [place], [facility] [address] [place] [id number] 0 Phone: () - 09/26 CBC w/ auto diff MCV fL 80.0 104.0 101.5 FINAL [facility] - [place], [facility] [address] [place] [id number] 0 Phone: () - 09/26 CBC w/ auto diff MCH pg 26.0 35.0 33.4 FINAL [facility] - [place], [facility] [address] [place] [id number] 0 Phone: () - 09/26 CBC w/ auto diff MCHC g/dL 30.0 35.0 32.9 FINAL [facility] - [place], [facility] [address] [place] [id number] 0 Phone: () - 09/26 CBC w/ auto diff MPV fL 9.5 13.4 8.9 Low FINAL [facility] - [place], [facility] [address] [place] [id number] 0 Phone: () - 09/26 CBC w/ auto diff RDW % 11.4 16.1 12.60 FINAL [facility] - [place], [facility] [address] [place] [id number] 0 Phone: () - 09/26 CMP Album in g/dL 3.2 5.2 4.3 FINAL [facility] - [place], [address] [place] [id number] 0 Phone: () - 09/26 CMP Alkal ine phosp hatas e U/L 46.0 116.0 65 FINAL Oziel angelo [place] [address] [address] [facility] [address] [id number] 0 Phone: () - 09/26 CMP ALT/S GPT U/L 7.0 40.0 8 FINAL Oziel angelo [facility] [address] [facility] [address] [id number] 0 Phone: () - 09/26 CMP AST/S GOT U/L 13.0 40.0 17 FINAL Oziel angelo [place] [address] [address] [facility] [address] [id number] 0 Phone: () - 09/26 CMP BUN mg/dL 9.0 23.0 21 FINAL Oziel angelo [place] [address] [address] [facility] [address] [id number] 0 Phone: () - 09/26 CMP Calci um mg/dL 8.7 10.4 9.2 FINAL Oziel angelo [place] [address] [address] [facility] [address] [id number] 0 Phone: () - 09/26 CMP Chlor vipin mmol/L 96.0 114.0 111 FINAL Oziel angelo [place] [address] [id number] 0 Phone: () - 09/26 CMP CO2 [...] 96 hour stability window. FINAL Oziel angelo [facility], [facility] [address] [facility] [address] [id number] 0 Phone: () - 09/26 CMP Creat inine mg/dL 0.5 1.2 0.79 FINAL Oziel angelo [place] [address] [address] [facility] [address] [id number] 0 Phone: () - 09/26 CMP GFR estim ate ml/min /1.73m ^2 79.1 GFR is calculate d using the CKD-EPI equation. FINAL [place] [address] [phone] 0 Phone: () - 09/26 CMP Gluco se mg/dL 73.0 126.0 83 FINAL Oziel Box [place] [address] [id number] 0 Phone: () - 09/26 CMP Potas sium mmol/L 3.5 5.1 4.4 FINAL Oziel Box [place] [address] [id number] 0 Phone: () - 09/26 CMP Sodiu m mmol/L 136.0 145.0 143 FINAL [place] [address] [id number] 0 Phone: () - 09/26 CMP Bilir ubin, total mg/dL 0.3 1.2 0.3 FINAL [place] [address] [id number] 0 Phone: () - 09/26 CMP Total prote in g/dL 5.7 8.2 6.3 FINAL [place] [address] [id number] 0 Phone: () - 10/24 T4, free panel T4, free ng/dL 0.7 1.8 1.62 Test performed at [facility] on a Hers Immunoass ay Analyzer that uses an immunoenz ymometric sandwich assay for analysis. Patient testing should not be performed using multiple methodharley amador due to analytica l variation seen between test methodharley amador. FINAL Lia Delgado [place] [address] [id number] 0 Phone: () - 10/24 CMP Album in g/dL 3.2 5.2 4.3 FINAL Lia [place] [address] [id number] 0 Phone: () - 10/24 CMP Alkal ine phosp hatas e U/L 46.0 116.0 59 FINAL Lia [facility], [facility] [address] [facility] [id number] 0 Phone: () - 10/24 CMP ALT/S GPT U/L 7.0 40.0 12 FINAL Lia [facility] [address] [facility] [address] [id number] 0 Phone: () - 10/24 CMP AST/S GOT U/L 13.0 40.0 22 FINAL Lia [place] [address] [address] [facility] [address] [phone] 0 Phone: () - 10/24 CMP BUN mg/dL 9.0 23.0 16 FINAL [place] [address] [address] [facility] [address] [id number] 0 Phone: () - 10/24 CMP Calci um mg/dL 8.7 10.4 9.7 FINAL [place] [address] [address] [facility] [address] [phone] 0 Phone: () - 10/24 CMP Chlor vipin mmol/L 96.0 114.0 110 FINAL [place] [address] [id number] 0 Phone: () - 10/24 CMP CO2 [...] the 96 hour stability window. FINAL Lia [facility], [facility] [address] [facility] [address] [id number] 0 Phone: () - 10/24 CMP Creat inine mg/dL 0.5 1.2 0.83 FINAL [place] [address] [id number] 0 Phone: () - 10/24 CMP GFR estim ate ml/min /1.73m ^2 74.5 GFR is calculate d using the CKD-EPI equation. FINAL [place] [address] [address] [facility] [address] [place] [address] [phone] 0 Phone: () - 10/24 CMP Gluco se mg/dL 73.0 126.0 87 FINAL [place] [address] [address] [facility] [address] [facility] [id number] 0 Phone: () - 10/24 CMP Potas sium mmol/L 3.5 5.1 4.4 FINAL [place] [address] [address] [facility] [address] [facility] [id number] 0 Phone: () - 10/24 CMP Sodiu m mmol/L 136.0 145.0 145 FINAL [facility] [address] [facility] [address] [facility] [phone] 0 Phone: () - 10/24 CMP Bilir ubin, total mg/dL 0.3 1.2 0.4 FINAL [facility] [address] [facility] [address] [facility] [id number] 0 Phone: () - 10/24 CMP Total prote in g/dL 5.7 8.2 6.4 [place] [address] [address] [facility] [address] [place] [address] [phone] 0 Phone: () - 10/24 TSH w/ refle x to free T4 TSH uIU/ml 0.32 5.0 0.05 Low Test performed at [facility] on a [employer] 2000 Immunoass ay Analyzer that uses an immunoenz ymometric sandwich assay for analysis. Patient testing should not be performed using multiple kathi amador due to analytica l variation seen between test kathi amador. FINAL [facility], [facility] [address] [facility] [id number] 0 Phone: () - 10/24 CBC w/ auto diff WBC K/uL 3.0 8.9 5.5 [facility], [address] [place] [id number] 0 Phone: () - 10/24 CBC w/ auto diff HGB g/dL 11.3 15.2 12.0 FINAL Lia Tolbert a [facility] - [place], [address] [place] [id number] 0 Phone: () - 10/24 CBC w/ auto diff PLT K/uL 113.0 364.0 211 FINAL Lia [facility] - [place], [address] [place] [id number] 0 Phone: () - 10/24 CBC w/ auto diff Dave # (ANC) K/uL 1.6 6.6 3.4 FINAL Lia Tolbert [facility] - [place], [address] [place] [id number] 0 Phone: () - 10/24 CBC w/ auto diff Dave % % 43.0 74.0 62.4 FINAL Lia Tolbert [facility] - [place], [address] [place] [id number] 0 Phone: () - 10/24 CBC w/ auto diff IG % % 0.0 0.5 1.1 High FINAL Lia Tolbert a [facility] - [place], [address] [place] [id number] 0 Phone: () - 10/24 CBC w/ auto diff IG # K/uL 0.0 0.03 0.06 High FINAL Lia Tolbert a [facility] - [place], [address] [place] [id number] 0 Phone: () - 10/24 CBC w/ auto diff LY % % 14.0 41.0 22.2 FINAL Lia [facility] - [place], [address] [place] [id number] 0 Phone: () - 10/24 CBC w/ auto diff MO % % 6.0 15.0 10.1 FINAL Lia [facility] - [place], [address] [place] [id number] 0 Phone: () - 10/24 CBC w/ auto diff EO % % 0.0 7.0 3.8 FINAL [facility] - [place], [address] [place] [id number] 0 Phone: () - 10/24 CBC w/ auto diff BA % % 0.0 2.0 0.4 FINAL [facility] - [place], [address] [place] [id number] 0 Phone: () - 10/24 CBC w/ auto diff LY # K/uL 0.4 3.6 1.2 FINAL L[facility] - [place], [address] [place] [id number] 0 Phone: () - 10/24 CBC w/ auto diff MO # K/uL 0.2 1.3 0.6 FINAL Lia Tolbert a [facility] - [place], [address] [place] [id number] 0 Phone: () - 10/24 CBC w/ auto diff EO # K/uL 0.0 0.6 0.2 FINAL L[facility] - [place], [address] [place] [id number] 0 Phone: () - 10/24 CBC w/ auto diff BA # K/uL 0.0 0.2 0.0 FINAL Lia [facility] - [place], [address] [place] [id number] 0 Phone: () - 10/24 CBC w/ auto diff NRBC % #/100W BC 0.0 0.2 0.0 FINAL Lia [facility] - [place], [address] [place] [id number] 0 Phone: () - 10/24 CBC w/ auto diff RBC M/uL 3.9 5.1 3.62 Low FINAL Lia [facility] - [place], [address] [place] [id number] 0 Phone: () - 10/24 CBC w/ auto diff HCT % 35.0 48.0 35.7 FINAL L[facility] - [place], [address] [place] [id number] 0 Phone: () - 10/24 CBC w/ auto diff MCV fL 80.0 104.0 98.6 FINAL Lia [facility] - [place], [address] [place] [id number] 0 Phone: () - 10/24 CBC w/ auto diff MCH pg 26.0 35.0 33.1 FINAL Lia [facility] - [place], [address] [place] [id number] 0 Phone: () - 10/24 CBC w/ auto diff MCHC g/dL 30.0 35.0 33.6 FINAL Lia [facility] - [place], [address] [place] [id number] 0 Phone: () - 10/24 CBC w/ auto diff MPV fL 9.5 13.4 9.1 Low FINAL Lia [facility] - [place], [address] [place] [id number] 0 Phone: () - 10/24 CBC w/ auto diff RDW % 11.4 16.1 12.20 FINAL Lia [facility] - [place], [address] [place] [id number] 0 Phone: () - 11/21 CMP Album in g/dL 3.2 5.2 4.1 FINAL Lia [facility] - [place], [address] [place] [id number] 0 Phone: () - 11/21 CMP Alkal ine phosp hatas e U/L 46.0 116.0 52 FINAL [facility], [address] [facility] [id number] 0 Phone: () - 11/21 CMP ALT/S GPT U/L 7.0 40.0 17 FINAL [facility] [address] [id number] 0 Phone: () - 11/21 CMP AST/S GOT U/L 13.0 40.0 24 FINAL [place] [address] [id number] 0 Phone: () - 11/21 CMP BUN mg/dL 9.0 23.0 14 FINAL [place] [address] [address] [facility] [address] [facility] [phone] 0 Phone: () - 11/21 CMP Calci um mg/dL 8.7 10.4 9.3 FINAL [place] [address] [address] [facility] [address] [id number] 0 Phone: () - 11/21 CMP Chlor vipin mmol/L 96.0 114.0 111 FINAL [place] [address] [address] [facility] [address] [id number] 0 Phone: () - 11/21 CMP CO2 [...] of the 96 hour stability window. FINAL [facility], [facility] [address] [facility] [address] [id number] 0 Phone: () - 11/21 CMP Creat inine mg/dL 0.5 1.2 0.79 FINAL [place] [address] [id number] 0 Phone: () - 11/21 CMP GFR estim ate ml/min /1.73m ^2 79.1 GFR is calculate d using the CKD-EPI equation. FINAL [place] [address] [id number] 0 Phone: () - 11/21 CMP Gluco se mg/dL 73.0 126.0 86 FINAL [place] [address] [id number] 0 Phone: () - 11/21 CMP Potas sium mmol/L 3.5 5.1 4.5 FINAL [place] [address] [address] [facility] [address] [id number] 0 Phone: () - 11/21 CMP Sodiu m mmol/L 136.0 145.0 144 FINAL [place] [address] [id number] 0 Phone: () - 11/21 CMP Bilir ubin, total mg/dL 0.3 1.2 0.3 FINAL [place] [address] [id number] 0 Phone: () - 11/21 CMP Total prote in g/dL 5.7 8.2 6.2 [place] [address] [id number] 0 Phone: () - 11/21 T4, free panel T4, free ng/dL 0.7 1.8 1.13 Test performed at [facility] on a Hers Immunoass ay Analyzer that uses an immunoenz ymometric sandwich assay for analysis. Patient testing should not be performed using multiple methodolo ginaun due to analytica l variation seen between test methodharley amador. FINAL [place] [address] [phone] 0 Phone: () - 11/21 TSH w/ refle x to free T4 TSH uIU/ml 0.32 5.0 0.16 Low Test performed at [facility] on a [employer] Immunoass ay Analyzer that uses an immunoenz ymometric sandwich assay for analysis. Patient testing should not be performed using multiple methodolo ginaun due to analytica l variation seen between test methodolo ginaun. FINAL Lia angelo [facility] - [place], [address] [place] [id number] 0 Phone: () - 11/21 CBC w/ auto diff WBC K/uL 3.0 8.9 4.1 FINAL Lia angelo [facility] - [place], [address] [place] [id number] 0 Phone: () - 11/21 CBC w/ auto diff HGB g/dL 11.3 15.2 11.8 FINAL Lia angelo [facility] - [place], [address] [place] [id number] 0 Phone: () - 11/21 CBC w/ auto diff PLT K/uL 113.0 364.0 223 FINAL Lia angelo [facility] - [place], [address] [place] [id number] 0 Phone: () - 11/21 CBC w/ auto diff Dave # (ANC) K/uL 1.6 6.6 2.3 FINAL Lia angelo [facility] - [place], [address] [place] [id number] 0 Phone: () - 11/21 CBC w/ auto diff Dave % % 43.0 74.0 56.3 FINAL Lia angelo [facility] - [place], [address] [place] [id number] 0 Phone: () - 11/21 CBC w/ auto diff IG % % 0.0 0.5 0.2 FINAL Lia Tolbert a [facility] - [place], [address] [place] [id number] 0 Phone: () - 11/21 CBC w/ auto diff IG # K/uL 0.0 0.03 0.01 FINAL Lia Tolbert [facility] - [place], [address] [place] [id number] 0 Phone: () - 11/21 CBC w/ auto diff LY % % 14.0 41.0 29.0 FINAL Lia angelo [facility] - [place], [address] [facility] [address] [place] [id number] 0 Phone: () - 11/21 CBC w/ auto diff MO % % 6.0 15.0 10.4 FINAL Lia angelo [facility] - [place], [address] [facility] [address] [place] [id number] 0 Phone: () - 11/21 CBC w/ auto diff EO % % 0.0 7.0 3.9 FINAL Lia angelo [facility] - [place], [address] [facility] [address] [place] [id number] 0 Phone: () - 11/21 CBC w/ auto diff BA % % 0.0 2.0 0.2 FINAL Lia angelo [facility] - [place], [address] [facility] [address] [place] [id number] 0 Phone: () - 11/21 CBC w/ auto diff LY # K/uL 0.4 3.6 1.2 FINAL Lia angelo [facility] - [place], [address] [facility] [address] [place] [id number] 0 Phone: () - 11/21 CBC w/ auto diff MO # K/uL 0.2 1.3 0.4 FINAL Lia Tolbert a [facility] - [place], [address] [facility] [address] [place] [id number] 0 Phone: () - 11/21 CBC w/ auto diff EO # K/uL 0.0 0.6 0.2 FINAL Lia Tolbert [facility] - [place], [address] [facility] [address] [place] [id number] 0 Phone: () - 11/21 CBC w/ auto diff BA # K/uL 0.0 0.2 0.0 FINAL Lia Tolbert [facility] - [place], [address] [place] [id number] 0 Phone: () - 11/21 CBC w/ auto diff NRBC % #/100W BC 0.0 0.2 0.0 FINAL Lia Tolbert [facility] - [place], [address] [place] [id number] 0 Phone: () - 11/21 CBC w/ auto diff RBC M/uL 3.9 5.1 3.69 Low FINAL Lia Tolbert a [facility] - [place], [address] [place] [id number] 0 Phone: () - 11/21 CBC w/ auto diff HCT % 35.0 48.0 35.6 FINAL Lia Tolbert a [facility] - [place], [address] [place] [id number] 0 Phone: () - 11/21 CBC w/ auto diff MCV fL 80.0 104.0 96.5 FINAL Lia angelo [facility] - [place], [address] [place] [id number] 0 Phone: () - 11/21 CBC w/ auto diff MCH pg 26.0 35.0 32.0 FINAL Lia Tolbert a [facility] - [place], [address] [place] [id number] 0 Phone: () - 11/21 CBC w/ auto diff MCHC g/dL 30.0 35.0 33.1 FINAL Lia Tolbert a [facility] - [place], [address] [place] [id number] 0 Phone: () - 11/21 CBC w/ auto diff MPV fL 9.5 13.4 9.0 Low FINAL Lia angelo [facility] - [place], [address] [place] [id number] 0 Phone: () - 11/21 CBC w/ auto diff RDW % 11.4 16.1 12.40 FINAL Lia [facility] [place] [facility] [place], [address] [place] [id number] 0 Phone: () - 12/19 CBC w/ auto diff WBC K/uL 3.0 8.9 4.9 FINAL Oziel Tilleyot a [facility] - [place], [address] [place] [id number] 0 Phone: () - 12/19 CBC w/ auto diff HGB g/dL 11.3 15.2 11.8 FINAL Oziel Tilleyot [facility] - [place], [address] [place] [id number] 0 Phone: () - 12/19 CBC w/ auto diff PLT K/uL 113.0 364.0 218 FINAL Oziel Tilleyot [facility] - [place], [address] [place] [id number] 0 Phone: () - 12/19 CBC w/ auto diff Dave # (ANC) K/uL 1.6 6.6 2.7 FINAL Oziel Tilleyot gi [facility] - [place], [address] [place] [id number] 0 Phone: () - 12/19 CBC w/ auto diff Dave % % 43.0 74.0 55.3 FINAL Oziel angelo [facility] - [place], [address] [place] [id number] 0 Phone: () - 12/19 CBC w/ auto diff IG % % 0.0 0.5 0.2 FINAL Oziel [facility]ot [facility] - [place], [address] [place] [id number] 0 Phone: () - 12/19 CBC w/ auto diff IG # K/uL 0.0 0.03 0.01 FINAL Oziel T[facility] - [place], [address] [place] [id number] 0 Phone: () - 12/19 CBC w/ auto diff LY % % 14.0 41.0 30.6 FINAL Oziel Tolbert a [facility] - [place], [address] [place] [id number] 0 Phone: () - 12/19 CBC w/ auto diff MO % % 6.0 15.0 9.3 FINAL Oziel T[facility]ot [facility] - [place], [address] [place] [id number] 0 Phone: () - 12/19 CBC w/ auto diff EO % % 0.0 7.0 4.0 FINAL Oziel [facility]ot [facility] - [place], [address] [place] [id number] 0 Phone: () - 12/19 CBC w/ auto diff BA % % 0.0 2.0 0.6 FINAL Oziel T[facility]leyot [facility] - [place], [address] [place] [id number] 0 Phone: () - 12/19 CBC w/ auto diff LY # K/uL 0.4 3.6 1.5 FINAL Oziel angelo [facility] - [place], [address] [place] [id number] 0 Phone: () - 12/19 CBC w/ auto diff MO # K/uL 0.2 1.3 0.5 FINAL Oziel angelo [facility] - [place], [address] [place] [id number] 0 Phone: () - 12/19 CBC w/ auto diff EO # K/uL 0.0 0.6 0.2 FINAL Oziel angelo [facility] - [place], [address] [place] [id number] 0 Phone: () - 12/19 CBC w/ auto diff BA # K/uL 0.0 0.2 0.0 FINAL Oziel [facility] - [place], [address] [place] [id number] 0 Phone: () - 12/19 CBC w/ auto diff NRBC % #/100W BC 0.0 0.2 0.0 FINAL Oziel [facility] - [place], [address] [place] [id number] 0 Phone: () - 12/19 CBC w/ auto diff RBC M/uL 3.9 5.1 3.68 Low FINAL [facility] [place], [address] [place] [phone] [phone] Phone: () - 12/19 CBC w/ auto diff HCT % 35.0 48.0 35.3 [facility] [place], [address] [place] [id number] 0 Phone: () - 12/19 CBC w/ auto diff MCV fL 80.0 104.0 95.9 [facility] [place], [address] [place] [phone] 0 Phone: () - 12/19 CBC w/ auto diff MCH pg 26.0 35.0 32.1 [facility] [place], [address] [place] [phone] 0 Phone: () - 12/19 CBC w/ auto diff MCHC g/dL 30.0 35.0 33.4 FINAL [facility] [place], [address] [place] [phone] 0 Phone: () - 12/19 CBC w/ auto diff MPV fL 9.5 13.4 9.1 Low FINAL [facility] [place], [address] [place] [id number] 0 Phone: () - 12/19 CBC w/ auto diff RDW % 11.4 16.1 13.30 FINAL [facility] [place], [address] [place] [phone] 0 Phone: () - 12/19 CMP Album in g/dL 3.2 5.2 4.0 FINAL Oziel angelo [facility], [address] [place] [address] [phone] 0 Phone: () - 12/19 CMP Alkal ine phosp hatas e U/L 46.0 116.0 58 FINAL Oziel angelo [facility], [address] [facility] 100 [facility] [id number] 0 Phone: () - 12/19 CMP ALT/S GPT U/L 7.0 40.0 13 FINAL Oziel angelo [facility] [address] [id number] 0 Phone: () - 12/19 CMP AST/S GOT U/L 13.0 40.0 24 FINAL Oziel angleo [facility] [address] [facility] [address] [id number] 0 Phone: () - 12/19 CMP BUN mg/dL 9.0 23.0 18 FINAL Oziel angelo [place] [address] [address] [facility] [address] [id number] 0 Phone: () - 12/19 CMP Calci um mg/dL 8.7 10.4 9.7 FINAL Oziel angelo [place] [address] [id number] 0 Phone: () - 12/19 CMP Chlor vipin mmol/L 96.0 114.0 111 FINAL Oziel angelo [place] [address] [address] [facility] [address] [id number] 0 Phone: () - 12/19 CMP CO2 [...] 96 hour stability window. FINAL Oziel angelo [facility], [address] [place] [address] [phone] 0 Phone: () - 12/19 CMP Creat inine mg/dL 0.5 1.2 0.82 FINAL Oziel angelo [facility] [address] [facility] [address] [id number] 0 Phone: () - 12/19 CMP GFR estim ate ml/min /1.73m ^2 75.6 GFR is calculate d using the CKD-EPI equation. FINAL Oziel angelo [place] [address] [id number] 0 Phone: () - 12/19 CMP Gluco se mg/dL 73.0 126.0 81 FINAL Oziel angelo [place] [address] [id number] 0 Phone: () - 12/19 CMP Potas sium mmol/L 3.5 5.1 4.4 FINAL Oziel angelo [place] [address] [id number] 0 Phone: () - 12/19 CMP Sodiu m mmol/L 136.0 145.0 144 FINAL Oziel angelo [place] [address] [id number] 0 Phone: () - 12/19 CMP Bilir ubin, total mg/dL 0.3 1.2 0.4 FINAL Oziel angelo [place] [address] [id number] 0 Phone: () - 12/19 CMP Total prote in g/dL 5.7 8.2 6.3 FINAL Oziel angelo [place] [address] [id number] 0 Phone: () - 12/19 TSH w/ refle x to free T4 TSH uIU/ml 0.32 5.0 2.75 Test performed at [facility] on a [employer] 2000 Immunoass ay Analyzer that uses an immunoenz ymometric sandwich assay for analysis. Patient testing should not be performed using multiple kathi amador due to analytica l variation seen between test kathi amador. FINAL Oziel angelo [place] [address] [id number] 0 Phone: () - 01/12 [facility] other lab See diagnostic radiologic technologist d 01/16 CMP Album in g/dL 3.2 5.2 4.3 FINAL Oziel angelo [facility], [address] [facility] [address] [id number] 0 Phone: () - 01/16 CMP Alkal ine phosp hatas e U/L 46.0 116.0 64 FINAL Oziel angelo [facility] [address] [facility] [address] [id number] 0 Phone: () - 01/16 CMP ALT/S GPT U/L 7.0 40.0 12 FINAL Oziel angelo [place] [address] [id number] 0 Phone: () - 01/16 CMP AST/S GOT U/L 13.0 40.0 23 FINAL Oziel angelo [place] [address] [address] [facility] [address] [id number] 0 Phone: () - 01/16 CMP BUN mg/dL 9.0 23.0 17 FINAL Oziel angelo [place] [address] [address] [facility] [address] [id number] 0 Phone: () - 01/16 CMP Calci um mg/dL 8.7 10.4 9.4 FINAL Oziel angelo [place] [address] [address] [facility] [address] [id number] 0 Phone: () - 01/16 CMP Chlor vipin mmol/L 96.0 114.0 108 FINAL Oziel angelo [place] [address] [address] [facility] [address] [id number] 0 Phone: () - 01/16 CMP CO2 [...] 96 hour stability window. FINAL Oziel angelo [facility], [address] [facility] [address] [id number] 0 Phone: () - 01/16 CMP Creat inine mg/dL 0.5 1.2 1.07 FINAL Oziel angelo [place] [address] [id number] 0 Phone: () - 01/16 CMP GFR estim ate ml/min /1.73m ^2 54.9 Low GFR is calculate d using the CKD-EPI equation. FINAL Oziel angelo [address] [id number] 0 Phone: () - 01/16 CMP Gluco se mg/dL 73.0 126.0 84 FINAL Oziel angelo [address] [id number] 0 Phone: () - 01/16 CMP Potas sium mmol/L 3.5 5.1 4.4 FINAL Oziel angelo [place] [address] [address] [facility] [address] [id number] 0 Phone: () - 01/16 CMP Sodiu m mmol/L 136.0 145.0 141 FINAL Oziel angelo [place] [address] [address] [facility] [address] [id number] 0 Phone: () - 01/16 CMP Bilir ubin, total mg/dL 0.3 1.2 0.4 FINAL Oziel angelo [place] [address] [id number] 0 Phone: () - 01/16 CMP Total prote in g/dL 5.7 8.2 6.6 FINAL Oziel angelo [place] [address] [address] [facility] [address] [id number] 0 Phone: () - 01/16 TSH w/ refle x to free T4 TSH uIU/ml 0.32 5.0 14.74 High Provider Alert. Notified Vicki by Lynne Flannery on 01/19/2022 at 2:55 PM.Test performed at [facility] on a [employer] Immuno[employer] ay Analyzer that uses an immunoenz ymometric sandwich assay for analysis. Patient testing should not be performed using multiple methodharley amador due to analytica l variation seen between test methodharley amador. FINAL Oziel angelo [facility] [place], [address] [facility] [address] [place] [phone] 0 Phone: () - 01/16 T4, free panel T4, free ng/dL 0.7 1.8 0.75 Test performed at [facility] on a [employer] Immun[employer] ay Analyzer that uses an immunoenz ymometric sandwich assay for analysis. Patient testing should not be performed using multiple methodharley amador due to analytica l variation seen between test methodharely amador. FINAL [facility] angel[facility] [place], [address] [facility] [address] [place] [id number] 0 Phone: () - 01/16 CBC w/ auto diff WBC K/uL 3.0 8.9 4.4 FINAL [facility] angel[facility] [place], [address] [place] [address] [address] [facility] [place] [id number] 0 Phone: () - 01/16 CBC w/ auto diff HGB g/dL 11.3 15.2 11.9 FINAL [facility] [place], [address] [place] [address] d [address] [facility] [place] [id number] 0 Phone: () - 01/16 CBC w/ auto diff PLT K/uL 113.0 364.0 231 FINAL [facility] [place], [address] [place] [address] d [address] [facility] [place] [id number] 0 Phone: () - 01/16 CBC w/ auto diff Dave # (ANC) K/uL 1.6 6.6 2.4 FINAL [facility] [place], [address] [place], [place] [address]et [facility] [address] [place] [id number] 0 Phone: () - 01/16 CBC w/ auto diff Dave % % 43.0 74.0 54.7 FINAL [facility] [place], [address] [place] [address] d [address] [place] [id number] 0 Phone: () - 01/16 CBC w/ auto diff IG % % 0.0 0.5 0.2 FINAL [facility] [place], [address] [place], [place] [address] [place] [id number] 0 Phone: () - 01/16 CBC w/ auto diff IG # K/uL 0.0 0.03 0.01 FINAL [facility] [place], [address] [place] [id number] 0 Phone: () - 01/16 CBC w/ auto diff LY % % 14.0 41.0 31.8 FINAL [facility] [place], [address] [place] [id number] 0 Phone: () - 01/16 CBC w/ auto diff MO % % 6.0 15.0 8.9 FINAL [facility] [place], [address] [place] [id number] 0 Phone: () - 01/16 CBC w/ auto diff EO % % 0.0 7.0 3.9 FINAL [facility] [place], [address] [place] [id number] 0 Phone: () - 01/16 CBC w/ auto diff BA % % 0.0 2.0 0.5 FINAL Oziel Tolbert [facility] [place], [address] [place] [id number] 0 Phone: () - 01/16 CBC w/ auto diff LY # K/uL 0.4 3.6 1.4 FINAL [facility] [place], [address] [place] [id number] 0 Phone: () - 01/16 CBC w/ auto diff MO # K/uL 0.2 1.3 0.4 FINAL [facility] [place], [address] [place] [id number] 0 Phone: () - 01/16 CBC w/ auto diff EO # K/uL 0.0 0.6 0.2 FINAL [facility] [place], [address] [place] [id number] 0 Phone: () - 01/16 CBC w/ auto diff BA # K/uL 0.0 0.2 0.0 FINAL [facility] [place], [address] [place] [id number] 0 Phone: () - 01/16 CBC w/ auto diff NRBC % #/100W BC 0.0 0.2 0.0 FINAL [facility] [place], [address] [place] [id number] 0 Phone: () - 01/16 CBC w/ auto diff RBC M/uL 3.9 5.1 3.69 Low FINAL [facility] [place], [address] [place] [id number] 0 Phone: () - 01/16 CBC w/ auto diff HCT % 35.0 48.0 35.0 FINAL [facility] [place], [address] [place] [id number] 0 Phone: () - 01/16 CBC w/ auto diff MCV fL 80.0 104.0 94.9 FINAL [facility] angel[facility] [place], [address] [place] [id number] 0 Phone: () - 01/16 CBC w/ auto diff MCH pg 26.0 35.0 32.2 FINAL [facility] [place], [address] [place] [id number] 0 Phone: () - 01/16 CBC w/ auto diff MCHC g/dL 30.0 35.0 34.0 FINAL [facility] [place], [address] [place] [id number] 0 Phone: () - 01/16 CBC w/ auto diff MPV fL 9.5 13.4 8.8 Low FINAL [facility] [place], [address] [place] [id number] 0 Phone: () - 01/16 CBC w/ auto diff RDW % 11.4 16.1 13.90 FINAL [facility] angel[facility] [place], [address] [facility] [address] [place] [id number] 0 Phone: () - 02/20 TSH w/ refle x to free T4 TSH uIU/ml 0.32 5.0 Sent to Referen ce Lab. Hard copy results availab le only. Test performed at [facility] on a [employer] 2000 Immunoass ay Analyzer that uses an immunoenz ymometric sandwich assay for analysis. Patient testing should not be performed using multiple methodharley amador due to analytica l variation seen between test methodharley amador. FINAL [facility] [place], [address] [facility] [id number] 0 Phone: () - 02/20 TSH uIU/mL 0.35 4.94 8.74 High In Adults, TSH values between 5.00 and 10.00 uIU/ml do notnecess arily indicate the presence of Hypothyro idism.Cor relation with clinical findings such as presence of goiterand /or Thyropero xidase (TPO) Antibody may be helpful. Formore informati on please refer to MAYELA 2004; 291: 228-238.T est Performed by:[facility] [address] - [place], [place] [address]Jmcd e : FINAL Oziel Box 02/20 T4, free panel T4, free ng/dL 0.7 1.8 1.01 Test Performed by:[facility] [address] - [facility], [place] [address]Gqol e : FINAL Oziel Box 05/08 CBC w/ auto diff WBC K/uL 3.0 8.9 7.3 FINAL [facility] [place], [address] [facility] [address] [facility] [id number] 0 Phone: () - 05/08 CBC w/ auto diff HGB g/dL 11.3 15.2 11.0 Low FINAL [facility] [place], [address] [place] [id number] 0 Phone: () - 05/08 CBC w/ auto diff PLT K/uL 113.0 364.0 210 FINAL [facility] [place], [address] [place] [id number] 0 Phone: () - 05/08 CBC w/ auto diff Dave # (ANC) K/uL 1.6 6.6 3.7 FINAL [facility] [place], [address] [place] [id number] 0 Phone: () - 05/08 CBC w/ auto diff Dave % % 43.0 74.0 51.1 FINAL [facility] [place], [address] [place] [id number] 0 Phone: () - 05/08 CBC w/ auto diff IG % % 0.0 0.5 0.3 FINAL [facility] [place], [address] [place] [id number] 0 Phone: () - 05/08 CBC w/ auto diff IG # K/uL 0.0 0.03 0.02 FINAL [facility] [place], [address] [place] [id number] 0 Phone: () - 05/08 CBC w/ auto diff LY % % 14.0 41.0 37.9 FINAL [facility] [place], [address] [place] [id number] 0 Phone: () - 05/08 CBC w/ auto diff MO % % 6.0 15.0 9.2 FINAL [facility] [place], [address] [place] [id number] 0 Phone: () - 05/08 CBC w/ auto diff EO % % 0.0 7.0 1.2 FINAL [facility] [place], [address] [place] [id number] 0 Phone: () - 05/08 CBC w/ auto diff BA % % 0.0 2.0 0.3 FINAL [facility] [place], [address] [place] [id number] 0 Phone: () - 05/08 CBC w/ auto diff LY # K/uL 0.4 3.6 2.8 FINAL [facility] [place], [address] [place] [id number] 0 Phone: () - 05/08 CBC w/ auto diff MO # K/uL 0.2 1.3 0.7 FINAL [facility] [place], [address] [place] [id number] 0 Phone: () - 05/08 CBC w/ auto diff EO # K/uL 0.0 0.6 0.1 FINAL [facility] [place], [address] [place] [id number] 0 Phone: () - 05/08 CBC w/ auto diff BA # K/uL 0.0 0.2 0.0 FINAL [facility] [place], [address] [place] [id number] 0 Phone: () - 05/08 CBC w/ auto diff NRBC % #/100W BC 0.0 0.2 0.0 FINAL [facility] [place], [address] [place] [id number] 0 Phone: () - 05/08 CBC w/ auto diff RBC M/uL 3.9 5.1 3.27 Low FINAL [facility] [place], [address] [place] [id number] 0 Phone: () - 05/08 CBC w/ auto diff HCT % 35.0 48.0 32.1 Low FINAL [facility] [place], [address] [place] [id number] 0 Phone: () - 05/08 CBC w/ auto diff MCV fL 80.0 104.0 98.2 FINAL [facility] angel[facility] [place], [address] [place] [id number] 0 Phone: () - 05/08 CBC w/ auto diff MCH pg 26.0 35.0 33.6 FINAL Oz[facility] angel[facility] [place], [address] [place] [id number] 0 Phone: () - 05/08 CBC w/ auto diff MCHC g/dL 30.0 35.0 34.3 FINAL [facility] [place], [address] [place] [id number] 0 Phone: () - 05/08 CBC w/ auto diff MPV fL 9.5 13.4 9.4 Low FINAL [facility] [place], [address] [place] [id number] 0 Phone: () - 05/08 CBC w/ auto diff RDW % 11.4 16.1 13.10 FINAL [facility] [place], [address] [place] [id number] 0 Phone: () - 05/08 CMP Album in g/dL 3.2 5.2 4.0 FINAL Oziel angel[facility] [place], [address] [place] [id number] 0 Phone: () - 05/08 CMP Alkal ine phosp hatas e U/L 46.0 116.0 56 FINAL Oz[facility] angel[facility] [place], [address] [place] [id number] 0 Phone: () - 05/08 CMP ALT/S GPT U/L 7.0 40.0 17 FINAL Oziel angelo [facility], [address] [facility] [address] [id number] 0 Phone: () - 05/08 CMP AST/S GOT U/L 13.0 40.0 21 FINAL Oziel angelo [facility] [address] [facility] [address] [facility] [id number] 0 Phone: () - 05/08 CMP BUN mg/dL 9.0 23.0 22 FINAL Oziel angelo [place] [address] [id number] 0 Phone: () - 05/08 CMP Calci um mg/dL 8.7 10.4 9.3 FINAL Oziel angelo [place] [address] [id number] 0 Phone: () - 05/08 CMP Chlor vipin mmol/L 96.0 114.0 112 FINAL Oziel angelo [place] [address] [id number] 0 Phone: () - 05/08 CMP CO2 [...] 96 hour stability window. FINAL Oziel angelo [place] [address] [id number] 0 Phone: () - 05/08 CMP Creat inine mg/dL 0.5 1.2 0.86 FINAL Oziel angelo [place] [address] [id number] 0 Phone: () - 05/08 CMP GFR estim ate ml/min /1.73m ^2 71.2 GFR is calculate d using the CKD-EPI equation. FINAL Oziel angelo [facility], [facility] N [address] [id number] 0 Phone: () - 05/08 CMP Gluco se mg/dL 73.0 126.0 77 FINAL Oziel angelo [facility], [address] [facility] [address] [facility] [id number] 0 Phone: () - 05/08 CMP Potas sium mmol/L 3.5 5.1 3.9 FINAL Oziel angelo [facility], [address] [facility] [address] [facility] [id number] 0 Phone: () - 05/08 CMP Sodiu m mmol/L 136.0 145.0 148 High FINAL Oziel angelo [facility] [address] [facility] [address] [facility] [id number] 0 Phone: () - 05/08 CMP Bilir ubin, total mg/dL 0.3 1.2 0.4 FINAL Oziel aneglo [facility] [address] [facility] [address] [facility] [id number] 0 Phone: () - 05/08 CMP Total prote in g/dL 5.7 8.2 6.1 FINAL Oziel angelo [facility] [address] [facility] 100 [facility] [id number] 0 Phone: () - 05/08 TSH w/ refle x to free T4 TSH uIU/ml 0.32 5.0 1.36 Test performed at [facility] on a [employer] Immun[employer] ay Analyzer that uses an immunoenz ymometric sandwich assay for analysis. Patient testing should not be performed using multiple methodolo gies due to analytica l variation seen between test methodolo gies. FINAL Oziel angelo [facility], [address] [facility] [address] [facility] [id number] 0 Phone: () - 07/23 [facility] other lab See diagnostic radiologic technologist d 07/23 [facility] other lab See diagnostic radiologic technologist d 11/03 CBC w/ auto diff WBC K/uL 3.0 8.9 4.7 FINAL Oziel angelo [facility] [place], [address] [facility] [id number] 0 Phone: () - 11/03 CBC w/ auto diff HGB g/dL 11.3 15.2 11.6 FINAL Oziel angelo [facility] [place], [address] [place] [id number] 0 Phone: () - 11/03 CBC w/ auto diff PLT K/uL 113.0 364.0 248 FINAL [facility] [place], [address] [place] [id number] 0 Phone: () - 11/03 CBC w/ auto diff Dave # (ANC) K/uL 1.6 6.6 2.9 FINAL [facility] [place], [address] [place] [id number] 0 Phone: () - 11/03 CBC w/ auto diff Dave % % 43.0 74.0 60.9 FINAL Oziel Tolbert [facility] [place], [address] [place] [id number] 0 Phone: () - 11/03 CBC w/ auto diff IG % % 0.0 0.5 0.4 FINAL Oziel Tolbert [facility] [place], [address] [place] [id number] 0 Phone: () - 11/03 CBC w/ auto diff IG # K/uL 0.0 0.03 0.02 FINAL [facility] [place], [address] [place] [id number] 0 Phone: () - 11/03 CBC w/ auto diff LY % % 14.0 41.0 26.8 FINAL [facility] [place], [address] [place] [id number] 0 Phone: () - 11/03 CBC w/ auto diff MO % % 6.0 15.0 8.5 FINAL [facility] [place], [address] [place] [id number] 0 Phone: () - 11/03 CBC w/ auto diff EO % % 0.0 7.0 3.0 FINAL [facility] [place], [address] [place] [id number] 0 Phone: () - 11/03 CBC w/ auto diff BA % % 0.0 2.0 0.4 FINAL Oz[facility] [place], [address] [place] [id number] 0 Phone: () - 11/03 CBC w/ auto diff LY # K/uL 0.4 3.6 1.3 FINAL Oziel [facility] [place], [address] [place] [id number] 0 Phone: () - 11/03 CBC w/ auto diff MO # K/uL 0.2 1.3 0.4 FINAL Oziel [facility] [place], [address] [place] [id number] 0 Phone: () - 11/03 CBC w/ auto diff EO # K/uL 0.0 0.6 0.1 FINAL Oziel angelo [facility] [place], [address] [place] [id number] 0 Phone: () - 11/03 CBC w/ auto diff BA # K/uL 0.0 0.2 0.0 FINAL Oziel angelo [facility] [place], [address] [place] [id number] 0 Phone: () - 11/03 CBC w/ auto diff NRBC % #/100W BC 0.0 0.2 0.0 FINAL Oziel Tolbert [facility] [place], [address] [place] [id number] 0 Phone: () - 11/03 CBC w/ auto diff RBC M/uL 3.9 5.1 3.52 Low FINAL Oziel Tolbert [facility] [place], [address] [place] [id number] 0 Phone: () - 11/03 CBC w/ auto diff HCT % 35.0 48.0 34.2 Low FINAL Oziel Box [place] [facility] [place], [address] [place] [id number] 0 Phone: () - 11/03 CBC w/ auto diff MCV fL 80.0 104.0 97.2 FINAL Oziel angelo [facility] [place], [address] [place] [id number] 0 Phone: () - 11/03 CBC w/ auto diff MCH pg 26.0 35.0 33.0 FINAL Oziel angelo [facility] [place], [address] [place] [id number] 0 Phone: () - 11/03 CBC w/ auto diff MCHC g/dL 30.0 35.0 33.9 FINAL Oziel angelo [facility] [place], [address] [place] [id number] 0 Phone: () - 11/03 CBC w/ auto diff MPV fL 9.5 13.4 8.7 Low FINAL Oziel angelo [facility] [place], [address] [place] [id number] 0 Phone: () - 11/03 CBC w/ auto diff RDW % 11.4 16.1 14.40 FINAL Ozile angelo [facility] [place], [address] [place] [id number] 0 Phone: () - 11/03 CMP Album in g/dL 3.2 5.2 4.1 FINAL Oziel angelo [facility] [place], [address] [place] [id number] 0 Phone: () - 11/03 CMP Alkal ine phosp hatas e U/L 46.0 116.0 59 FINAL Oziel angelo [facility] [place], [address] [place] [id number] 0 Phone: () - 11/03 CMP ALT/S GPT U/L 7.0 40.0 <7 FINAL Oziel angel[facility] [place], [address] [place] [id number] 0 Phone: () - 11/03 CMP AST/S GOT U/L 13.0 40.0 24 FINAL Oziel angelo [place] [address] [id number] 0 Phone: () - 11/03 CMP BUN mg/dL 9.0 23.0 16.0 FINAL Oziel angelo [place] [address] [address] [facility] [address] [id number] 0 Phone: () - 11/03 CMP Calci um mg/dL 8.7 10.4 9.1 FINAL Oziel angelo [place] [address] [id number] 0 Phone: () - 11/03 CMP Chlor vipin mmol/L 96.0 114.0 105 FINAL Oziel angelo [place] [address] [id number] 0 Phone: () - 11/03 CMP CO2 [...] 96 hour stability window. FINAL Oziel angelo [place] [address] [id number] 0 Phone: () - 11/03 CMP Creat inine mg/dL 0.5 1.2 0.88 FINAL Oziel angelo [place] [address] [id number] 0 Phone: () - 11/03 CMP GFR estim ate ml/min /1.73m ^2 69.0 GFR is calculate d using the CKD-EPI equation. FINAL Oziel angelo [place] [address] [id number] 0 Phone: () - 11/03 CMP Gluco se mg/dL 73.0 126.0 105 FINAL Oziel angelo [place] [address] [address] [facility] 100 [facility] [id number] 0 Phone: () - 11/03 CMP Potas sium mmol/L 3.5 5.1 4.4 FINAL Oziel angelo On[facility], [address] [facility] [id number] 0 Phone: () - 11/03 CMP Sodiu m mmol/L 136.0 145.0 139 FINAL Oziel angelo On[facility], [address] [facility] [id number] 0 Phone: () - 11/03 CMP Bilir ubin, total mg/dL 0.3 1.2 0.6 FINAL Oziel angelo [facility], [address] [facility] [id number] 0 Phone: () - 11/03 CMP Total prote in g/dL 5.7 8.2 6.6 FINAL Oziel angelo On[facility], [address] [facility] [id number] 0 Phone: () - 02/08 CBC w/ auto diff WBC K/uL 3.0 8.9 4.7 FINAL Oziel angelo [facility] - [place], [address] [facility] [id number] 0 Phone: () - 02/08 CBC w/ auto diff HGB g/dL 11.3 15.2 11.0 Low FINAL Oziel angelo [facility] - [place], [address] [facility] [id number] 0 Phone: () - 02/08 CBC w/ auto diff PLT K/uL 113.0 364.0 194 FINAL Oziel angelo [facility] - [place], [address] [facility] [place] [id number] 0 Phone: () - 02/08 CBC w/ auto diff Dave # (ANC) K/uL 1.6 6.6 2.7 FINAL Oziel angelo [facility] - [place], [address] [facility] [place] [id number] 0 Phone: () - 02/08 CBC w/ auto diff Dave % % 43.0 74.0 57.2 FINAL Oziel Tilleyot a [facility] - [place], [address] [place] [id number] 0 Phone: () - 02/08 CBC w/ auto diff IG % % 0.0 0.5 0.4 FINAL Oziel Tilleyot a [facility] - [place], [address] [place] [id number] 0 Phone: () - 02/08 CBC w/ auto diff IG # K/uL 0.0 0.03 0.02 FINAL Oziel Tilleyot a [facility] - [place], [address] [place] [id number] 0 Phone: () - 02/08 CBC w/ auto diff LY % % 14.0 41.0 31.6 FINAL Oziel Tilleyot a [facility] - [place], [address] [place] [id number] 0 Phone: () - 02/08 CBC w/ auto diff MO % % 6.0 15.0 8.0 FINAL Oziel Tilleyot a [facility] - [place], [address] [place] [id number] 0 Phone: () - 02/08 CBC w/ auto diff EO % % 0.0 7.0 2.2 FINAL Oziel Tilleyot a [facility] - [place], [address] [place] [id number] 0 Phone: () - 02/08 CBC w/ auto diff BA % % 0.0 2.0 0.6 FINAL Oziel Tilleyot a [facility] - [place], [address] [place] [id number] 0 Phone: () - 02/08 CBC w/ auto diff LY # K/uL 0.4 3.6 1.5 FINAL Oziel Tilleyot a [facility] - [place], [address] [place] [id number] 0 Phone: () - 02/08 CBC w/ auto diff MO # K/uL 0.2 1.3 0.4 FINAL Oziel Tilleyot a [facility] - [place], [address] [place] [id number] 0 Phone: () - 02/08 CBC w/ auto diff EO # K/uL 0.0 0.6 0.1 FINAL Oziel Tilleyot a [facility] - [place], [address] [place] [id number] 0 Phone: () - 02/08 CBC w/ auto diff BA # K/uL 0.0 0.2 0.0 FINAL Oziel Tilleyot a [facility] - [place], [address] [place] [id number] 0 Phone: () - 02/08 CBC w/ auto diff NRBC % #/100W BC 0.0 0.2 0.0 FINAL Oziel Tilleyot gi [facility] - [place], [address] [place] [id number] 0 Phone: () - 02/08 CBC w/ auto diff RBC M/uL 3.9 5.1 3.26 Low FINAL Oziel angelo [facility] - [place], [address] [place] [id number] 0 Phone: () - 02/08 CBC w/ auto diff HCT % 35.0 48.0 32.9 Low FINAL Oziel Tilleyot gi [facility] - [place], [address] [place] [id number] 0 Phone: () - 02/08 CBC w/ auto diff MCV fL 80.0 104.0 100.9 FINAL Oziel Tilleyot a [facility] - [place], [address] [place] [id number] 0 Phone: () - 02/08 CBC w/ auto diff MCH pg 26.0 35.0 33.7 FINAL Oziel Tilleyot a [facility] - [place], [address] [place] [id number] 0 Phone: () - 02/08 CBC w/ auto diff MCHC g/dL 30.0 35.0 33.4 FINAL Oziel angelo [facility], [address] [facility] [place] [id number] 0 Phone: () - 02/08 CBC w/ auto diff MPV fL 9.5 13.4 9.0 Low FINAL Oziel angelo [facility], [address] [facility] [place] [id number] 0 Phone: () - 02/08 CBC w/ auto diff RDW % 11.4 16.1 13.70 FINAL Oziel angelo [facility], [address] [place] [address] d [address] [facility] [place] [id number] 0 Phone: () - 02/08 TSH w/ refle x to free T4 TSH uIU/ml 0.32 5.0 3.61 Test performed at [facility] on a Hers Immunoass ay Analyzer that uses an immunoenz ymometric sandwich assay for analysis. Patient testing should not be performed using multiple methodolo ginaun due to analytica l variation seen between test methodharley amador. FINAL Oziel angelo [facility], [address] [place] [address] [id number] 0 Phone: () - 02/08 CMP Album in g/dL 3.2 5.2 4.0 FINAL Oziel angelo [facility], [address] [place] [address] [id number] 0 Phone: () - 02/08 CMP Alkal ine phosp hatas e U/L 46.0 116.0 83 FINAL Oziel angelo [facility], [address] [facility] [id number] 0 Phone: () - 02/08 CMP ALT/S GPT U/L 7.0 40.0 <7 FINAL Oziel angelo [facility], [address] [facility] [id number] 0 Phone: () - 02/08 CMP AST/S GOT U/L 13.0 40.0 23 FINAL Oziel angelo [facility], [address] [facility] [id number] 0 Phone: () - 02/08 CMP BUN mg/dL 9.0 23.0 17.0 FINAL Oziel angelo [place] [address] [address] [facility] [address] [facility] [id number] 0 Phone: () - 02/08 CMP Calci um mg/dL 8.7 10.4 8.8 FINAL Oizel angelo [place] [address] [id number] 0 Phone: () - 02/08 CMP Chlor vipin mmol/L 96.0 114.0 109 FINAL Oziel angelo [place] [address] [id number] 0 Phone: () - 02/08 CMP CO2 [...] 96 hour stability window. FINAL Oziel angelo [place] [address] [id number] 0 Phone: () - 02/08 CMP Creat inine mg/dL 0.5 1.2 0.86 FINAL Oziel angelo [place] [address] [id number] 0 Phone: () - 02/08 CMP GFR estim ate ml/min /1.73m ^2 70.9 GFR is calculate d using the CKD-EPI equation. FINAL Oziel angelo [place] [address] [id number] 0 Phone: () - 02/08 CMP Gluco se mg/dL 73.0 126.0 84 FINAL Oziel angelo [place] [address] [id number] 0 Phone: () - 02/08 CMP Potas sium mmol/L 3.5 5.1 4.5 FINAL Oziel angelo [facility], [address] [facility] [id number] 0 Phone: () - 02/08 CMP Sodiu m mmol/L 136.0 145.0 141 FINAL Oziel Tolbert a [facility], [address] [facility] [id number] 0 Phone: () - 02/08 CMP Bilir ubin, total mg/dL 0.3 1.2 0.3 FINAL Oziel Tolbert a [facility], [address] [facility] [id number] 0 Phone: () - 02/08 CMP Total prote in g/dL 5.7 8.2 6.1 FINAL Oziel angelo [facility], [address] [facility] [id number] 0 Phone: () - 06/06 Misc other lab See diagnostic radiologic technologist d 08/09 CMP Album in g/dL 3.5 5.0 4.1 FINAL Oziel Tilleyot [facility], [address] [id number] 0 08/09 CMP Alkal ine phosp hatas e U/L 36.0 125.0 66 FINAL Oziel Tilleyot [facility], [address] [facility] [id number] 0 08/09 CMP ALT/S GPT U/L 0.0 34.0 6 FINAL Oziel Tilleyot [facility], [address] [facility] [id number] 0 08/09 CMP AST/S GOT U/L 14.0 36.0 28 FINAL [facility], [address] [facility] [id number] 0 08/09 CMP BUN mg/dL 7.0 17.0 17.0 FINAL Oziel Tilleyot [facility], [address] [facility] [id number] 0 08/09 CMP Calci um mg/dL 8.4 10.2 9.4 FINAL Oziel Tilleyot [facility], [address] [id number] 0 08/09 CMP Chlor vipin mmol/L 96.0 107.0 106 [facility] [address] [id number] 0 08/09 CMP CO2 mmol/L 22.0 30.0 [...] [facility], [address] [id number] 0 08/09 CMP Creat inine mg/dL 0.66 1.25 0.70 FINAL Oziel angelo [facility], [address] [facility] [address] [id number] 0 08/09 CMP GFR estim ate ml/min /1.73m ^2 90.4 GFR is calculate d using the CKD-EPI equation. [facility]AL [facility], [address] [id number] 0 08/09 CMP Gluco se mg/dL 74.0 100.0 87 FINAL Oziel Tilleyot a [facility], [address] [facility] [id number] 0 08/09 CMP Potas sium mmol/L 3.5 5.1 4.2 FINAL Oziel Box * [place] [facility] [place], [address] [facility] [id number] 0 08/09 CMP Sodiu m mmol/L 137.0 145.0 139 FINAL Oziel Box * [place] [facility] [place], [address] [facility] [id number] 0 08/09 CMP Bilir ubin, total mg/dL 0.2 1.3 0.3 FINAL Oziel Box * [place] [facility], [address] [facility] [id number] 0 08/09 CMP Total prote in g/dL 6.3 8.2 6.7 FINAL Oziel Box * [place] [facility], [address] [facility] [id number] 0 08/09 CBC w/ auto diff WBC K/uL 3.0 8.9 3.5 FINAL Oziel Tilleyot a [facility] - [place], [address] [place] [facility] [id number] 0 Phone: () - 08/09 CBC w/ auto diff HGB g/dL 11.3 15.2 11.7 FINAL Oziel Tilleyot a [facility] - [place], [address] [place] [id number] 0 Phone: () - 08/09 CBC w/ auto diff PLT K/uL 113.0 364.0 196 FINAL Oziel Tilleyot a [facility] - [place], [address] [place] [id number] 0 Phone: () - 08/09 CBC w/ auto diff Dave # (ANC) K/uL 1.6 6.6 1.9 FINAL Oziel Tilleyot a [facility] - [place], [address] [place] [id number] 0 Phone: () - 08/09 CBC w/ auto diff Dave % % 43.0 74.0 52.2 FINAL Oziel Tilleyot a [facility] - [place], [address] [place] [id number] 0 Phone: () - 08/09 CBC w/ auto diff IG % % 0.0 0.5 0.3 FINAL Oziel Tilleyot a [facility] - [place], [address] [place] [id number] 0 Phone: () - 08/09 CBC w/ auto diff IG # K/uL 0.0 0.03 0.01 FINAL Oziel Tilleyot a [facility] - [place], [address] [place] [id number] 0 Phone: () - 08/09 CBC w/ auto diff LY % % 14.0 41.0 35.0 FINAL Oziel Tilleyot a [facility] - [place], [address] [place] [id number] 0 Phone: () - 08/09 CBC w/ auto diff MO % % 6.0 15.0 9.6 FINAL Oziel Tilleyot a [facility] - [place], [address] [place] [id number] 0 Phone: () - 08/09 CBC w/ auto diff EO % % 0.0 7.0 2.3 FINAL Oziel Tilleyot a [facility] - [place], [address] [place] [id number] 0 Phone: () - 08/09 CBC w/ auto diff BA % % 0.0 2.0 0.6 FINAL Oziel Tilleyot a [facility] - [place], [address] [place] [id number] 0 Phone: () - 08/09 CBC w/ auto diff LY # K/uL 0.4 3.6 1.2 FINAL Oziel Tilleyot a [facility] - [place], [address] [place] [id number] 0 Phone: () - 08/09 CBC w/ auto diff MO # K/uL 0.2 1.3 0.3 FINAL Oziel angelo [facility] - [place], [address] [place] [id number] 0 Phone: () - 08/09 CBC w/ auto diff EO # K/uL 0.0 0.6 0.1 FINAL Oziel Tilleyot gi [facility] - [place], [address] [place] [id number] 0 Phone: () - 08/09 CBC w/ auto diff BA # K/uL 0.0 0.2 0.0 FINAL Oziel Tilleyot a [facility] - [place], [address] [place] [id number] 0 Phone: () - 08/09 CBC w/ auto diff NRBC % #/100W BC 0.0 0.2 0.0 FINAL Oziel angelo [facility] - [place], [address] [place] [id number] 0 Phone: () - 08/09 CBC w/ auto diff RBC M/uL 3.9 5.1 3.51 Low FINAL Oziel angelo [facility] - [place], [address] [place] [id number] 0 Phone: () - 08/09 CBC w/ auto diff HCT % 35.0 48.0 35.6 FINAL Oziel angelo [facility] - [place], [address] [place] [id number] 0 Phone: () - 08/09 CBC w/ auto diff MCV fL 80.0 104.0 101.4 FINAL Oziel Tilleyot a [facility] - [place], [address] [place] [id number] 0 Phone: () - 08/09 CBC w/ auto diff MCH pg 26.0 35.0 33.3 FINAL Oziel Tilleyot a [facility] - [place], [address] [place] [id number] 0 Phone: () - 08/09 CBC w/ auto diff MCHC g/dL 30.0 35.0 32.9 FINAL Oziel Tilleyot a [facility] - [place], [address] [place] [id number] 0 Phone: () - 08/09 CBC w/ auto diff MPV fL 9.5 13.4 9.3 Low FINAL Oziel Tilleyot a [facility] - [place], [address] [place] [id number] 0 Phone: () - 08/09 CBC w/ auto diff RDW % 11.4 16.1 13.20 FINAL Oziel Tilleyot a [facility] - [place], [address] [place] [id number] 0 Phone: () - 08/09 TSH w/ refle x to free T4 TSHR- v mIU/ml 0.47 4.68 0.74 FINAL Oziel Box * [place] [facility] [place], [address] [facility] [place] [id number] 0 02/13 CBC w/ auto diff WBC K/uL 3.0 8.9 4.7 FINAL Oziel FREEMAN [facility] - [place], [address] [place] [id number] 0 02/13 CBC w/ auto diff HGB g/dL 11.3 15.2 10.4 Low FINAL Oziel FREEMAN [facility] - [place], [address] [place] [id number] 0 02/13 CBC w/ auto diff PLT K/uL 113.0 364.0 252 FINAL Oziel FREEMAN [facility] - [place], [address] [place] [id number] 0 02/13 CBC w/ auto diff Dave # (ANC) K/uL 1.6 6.6 2.4 FINAL Oziel FREEMAN [facility] - [place], [address] [place] [id number] 0 02/13 CBC w/ auto diff Dave % % 43.0 74.0 51.3 FINAL Oziel FREEMAN [facility] - [place], [address] [place] [id number] 0 02/13 CBC w/ auto diff IG % % 0.0 0.5 0.2 FINAL Oziel FREEMAN [facility] - [place], [address] [place] [id number] 0 02/13 CBC w/ auto diff IG # K/uL 0.0 0.03 0.01 FINAL Oziel FREEMAN [facility] - [place], [address] [place] [id number] 0 02/13 CBC w/ auto diff LY % % 14.0 41.0 33.5 FINAL Oziel FREEMAN [facility] - [place], [address] [place] [id number] 0 02/13 CBC w/ auto diff MO % % 6.0 15.0 8.8 FINAL Oziel FREEMAN [facility] - [place], [address] [place] [id number] 0 02/13 CBC w/ auto diff EO % % 0.0 7.0 5.6 FINAL Oziel FREEMAN [facility] - [place], [address] [place] [id number] 0 02/13 CBC w/ auto diff BA % % 0.0 2.0 0.6 FINAL Oziel FREEMAN [facility] - [place], [address] [place] [id number] 0 02/13 CBC w/ auto diff LY # K/uL 0.4 3.6 1.6 FINAL Oziel FREEMAN [facility] - [place], [address] [place] [id number] 0 02/13 CBC w/ auto diff MO # K/uL 0.2 1.3 0.4 FINAL Oziel FREEMAN [facility] - [place], [address] [place] [id number] 0 02/13 CBC w/ auto diff EO # K/uL 0.0 0.6 0.3 FINAL Oziel FREEMAN [facility] - [place], [address] [place] [id number] 0 02/13 CBC w/ auto diff BA # K/uL 0.0 0.2 0.0 FINAL Oziel FREEMAN [facility] - [place], [address] [place] [id number] 0 02/13 CBC w/ auto diff NRBC % #/100W BC 0.0 0.2 0.0 FINAL Oziel FREEMAN [facility] - [place], [address] [place] [id number] 0 02/13 CBC w/ auto diff RBC M/uL 3.9 5.1 3.24 Low FINAL Oziel FREEMAN [facility] - [place], [address] [place] [id number] 0 02/13 CBC w/ auto diff HCT % 35.0 48.0 32.3 Low FINAL Oziel FREEMAN [facility] - [place], [address] [place] [id number] 0 02/13 CBC w/ auto diff MCV fL 80.0 104.0 99.7 FINAL Oziel FREEMAN [facility] - [place], [address] [place] [id number] 0 02/13 CBC w/ auto diff MCH pg 26.0 35.0 32.1 FINAL Oziel FREEMAN [facility] - [place], [address] [place] [id number] 0 02/13 CBC w/ auto diff MCHC g/dL 30.0 35.0 32.2 FINAL Oziel FREEMAN [facility] - [place], [address] [place] [id number] 0 02/13 CBC w/ auto diff MPV fL 9.5 13.4 9.1 Low FINAL Oziel FREEMAN [facility] - [place], [address] [place] [id number] 0 02/13 CBC w/ auto diff RDW % 11.4 16.1 13.70 FINAL Oziel FREEMAN [facility] - [place], [address] [place] [id number] 0 02/13 CMP Album in g/dL 3.5 5.0 3.5 FINAL Oziel Box * [place] [facility] [place], [address] [facility] [id number] 0 02/13 CMP Alkal ine phosp hatas e U/L 36.0 125.0 75 FINAL Oziel Box * [place] [facility] [place], [address] [facility] [id number] 0 02/13 CMP ALT/S GPT U/L 0.0 34.0 <4 Repeate d FINAL Oziel Box * [place] [facility] [place], [address] [facility] [id number] 0 02/13 CMP AST/S GOT U/L 14.0 36.0 17 FINAL Oziel Card [place] [facility] [place], [address] [facility] [id number] 0 02/13 CMP BUN mg/dL 7.0 17.0 18.0 High FINAL Oziel Card [place] [facility], [address] [facility] [id number] 0 02/13 CMP Calci um mg/dL 8.4 10.2 9.2 FINAL Oziel Card [place] [facility], [address] [facility] [id number] 0 02/13 CMP Chlor vipin mmol/L 96.0 107.0 109 High FINAL Oziel Card [place] [facility], [address] [facility] [id number] 0 02/13 CMP CO2 mmol/L 22.0 30.0 [...] 96 hour stability window. FINAL Oziel Card [place] [facility], [address] [facility] [id number] 0 02/13 CMP Creat inine mg/dL 0.66 1.25 0.80 FINAL Oziel Card [place] [facility], [address] [facility] [id number] 0 02/13 CMP GFR estim ate ml/min /1.73m ^2 76.8 GFR is calculate d using the CKD-EPI equation. FINAL Oziel Card [place] [facility], [address] [facility] [id number] 0 02/13 CMP Gluco se mg/dL 74.0 100.0 84 FINAL Oziel Box * [place] [facility] [place], [address] [facility] [id number] 0 02/13 CMP Potas sium mmol/L 3.5 5.1 4.4 FINAL Oziel Box * [place] [facility] [place], [address] [facility] [id number] 0 02/13 CMP Sodiu m mmol/L 137.0 145.0 137 FINAL Oziel Box * [place] [facility] [place], [address] [facility] [id number] 0 02/13 CMP Bilir ubin, total mg/dL 0.2 1.3 0.5 FINAL Oziel Box * [place] [facility] [place], [address] [facility] [id number] 02/13 CMP Total prote in g/dL 6.3 8.2 6.2 Low FINAL Oziel Box * [place] [facility] [place], [address] [facility] [id number] 0 04/03 [facility] other lab See diagnostic radiologic technologist d 08/14 CMP Album in g/dL 3.5 5.0 3.7 FINAL Oziel Box * [place] [facility] [place] [facility] , [address] [facility] [id number] 0 08/14 CMP Alkal ine phosp hatas e U/L 36.0 125.0 68 FINAL Oziel Box * [place] [facility] [place] [facility] , [address] [facility] [id number] 0 08/14 CMP ALT/S GPT U/L 0.0 34.0 10 FINAL Oziel Box * [place] [facility] [place] [facility] , [address] [facility] [id number] 0 08/14 CMP AST/S GOT U/L 14.0 36.0 28 FINAL Oziel Box * [facility] , [address] [facility] [address] [facility] [id number] 0 08/14 CMP BUN mg/dL 7.0 17.0 25.0 High FINAL Oziel Box * [facility] , [address] [facility] [id number] 0 08/14 CMP Calci um mg/dL 8.4 10.2 8.7 FINAL Oziel Box * [facility] , [address] [facility] [facility] [address] [id number] 0 08/14 CMP Chlor vipin mmol/L 96.0 107.0 109 High FINAL Oziel Box * [facility] , [address] [facility] [facility] [address] [facility] [id number] 0 08/14 CMP CO2 mmol/L 22.0 30.0 [...] hour stability window. FINAL Oziel Box * [facility] , [address] [facility] [id number] 0 08/14 CMP Creat inine mg/dL 0.66 1.25 0.90 FINAL Oziel Box * [facility] , [address] [facility] [id number] 0 08/14 CMP GFR estim ate ml/min /1.73m ^2 66.5 GFR is calculate d using the CKD-EPI equation. FINAL Oziel Box * [facility] , [address] [facility] [facility] [address] [id number] 0 08/14 CMP Gluco se mg/dL 74.0 100.0 95 FINAL Oziel Box * [facility] , [address] [facility] [id number] 0 08/14 CMP Potas sium mmol/L 3.5 5.1 4.5 FINAL Oziel Box * [facility] , [address] [facility] [id number] 0 08/14 CMP Sodiu m mmol/L 137.0 145.0 137 FINAL Oziel Box * [facility] , [address] [facility] [id number] 0 08/14 CMP Bilir ubin, total mg/dL 0.2 1.3 0.8 FINAL Oziel Box * [facility] , [address] [facility] [id number] 0 08/14 CMP Total prote in g/dL 6.3 8.2 6.5 FINAL Oziel Box * [facility] , [address] [facility] [id number] 08/14 CBC w/ auto diff WBC K/uL 3.0 8.9 4.7 [facility]AL [facility] [place] [facility] , [address] [place] [facility] [id number] 0 08/14 CBC w/ auto diff HGB g/dL 11.3 15.2 11.5 FINAL [facility] [place] [facility] , [address] [place] [facility] [id number] 0 08/14 CBC w/ auto diff PLT K/uL 113.0 364.0 211 [facility]AL [facility] [place] [facility] , [address] [place] [facility] [id number] 0 08/14 CBC w/ auto diff Dave # (ANC) K/uL 1.6 6.6 2.9 FINAL Oziel Box [place] [facility] , [address] [place] [id number] 0 08/14 CBC w/ auto diff Dave % % 43.0 74.0 61.3 FINAL Oziel Box [place] [facility] [place] [facility] , [address] [place] [id number] 0 08/14 CBC w/ auto diff IG % % 0.0 0.5 0.2 FINAL Oziel Box [place] [facility] [place] [facility] , [address] [place] [id number] 0 08/14 CBC w/ auto diff IG # K/uL 0.0 0.03 0.01 FINAL Oziel Box [place] [facility] [place] [facility] , [address] [place] [place] [id number] 0 08/14 CBC w/ auto diff LY % % 14.0 41.0 25.6 FINAL Oziel Box [place] [facility] [place] [facility] , [address] [place] [id number] 0 08/14 CBC w/ auto diff MO % % 6.0 15.0 8.7 FINAL Oziel Box [place] [facility] , [address] [place] [id number] 0 08/14 CBC w/ auto diff EO % % 0.0 7.0 3.8 FINAL Oziel Box [place] [facility] , [address] [place] [id number] 0 08/14 CBC w/ auto diff BA % % 0.0 2.0 0.4 FINAL Oziel Box [place] [facility] , [address] [place] [id number] 0 08/14 CBC w/ auto diff LY # K/uL 0.4 3.6 1.2 FINAL Oziel Box [place] [facility] , [address] [place] [id number] 0 08/14 CBC w/ auto diff MO # K/uL 0.2 1.3 0.4 FINAL Oziel Box [place] [facility] , [address] [place] [id number] 0 08/14 CBC w/ auto diff EO # K/uL 0.0 0.6 0.2 FINAL Oziel Box [place] [facility] , [address] [place] [id number] 0 08/14 CBC w/ auto diff BA # K/uL 0.0 0.2 0.0 FINAL Oziel Box [place] [facility] , [address] [place] [id number] 0 08/14 CBC w/ auto diff NRBC % #/100W BC 0.0 0.2 0.0 FINAL Oziel Box [place] [facility] , [address] [place] [id number] 0 08/14 CBC w/ auto diff RBC M/uL 3.9 5.1 3.60 Low FINAL Oziel Box [place] [facility] , [address] [place] [id number] 0 08/14 CBC w/ auto diff HCT % 35.0 48.0 35.2 FINAL Oziel Box [place] [facility] , [address] [place] [id number] 0 08/14 CBC w/ auto diff MCV fL 80.0 104.0 97.8 [facility]AL [facility] , [address] [facility] [address] [place] [id number] 0 08/14 CBC w/ auto diff MCH pg 26.0 35.0 31.9 [facility]AL [facility] , [address] [facility] [address] [facility] [id number] 0 08/14 CBC w/ auto diff MCHC g/dL 30.0 35.0 32.7 FINAL [facility] , [address] [facility] [address] [facility] [id number] 0 08/14 CBC w/ auto diff MPV fL 9.5 13.4 9.0 Low FINAL [facility] , [address] [facility] [address] [facility] [id number] 0 08/14 CBC w/ auto diff RDW % 11.4 16.1 13.60 FINAL [facility] , [address] [facility] [address] [facility] [id number] 0 Medications Date Name Route Dose Frequency Instructions Start Date End Date Status Baclofen Oral daily act charles Vitamin V03-Ryjnc Acid Oral 500 mcg-400 mcg daily active [...] concentration must be 0.3-1.2 mg/mL.Administ er using Bxz-PCQE-evnec ining equipment and through an in-line 0.22 [...]
--- OUTSIDE RECORDS SUMMARY | 2024-09-18 09:48 | XMS_ITS ---
Author Name Interface, [id number] lity Address [address] [facility] [address] [address] [facility] Oncology Address [address] [facility] [address] [address] Allergies and Adverse Reactions Medication/Group Name Reaction [...] Status Baclofen Oral daily act charles Vitamin D16-Golsh Acid Oral 500 mcg-400 mcg daily active [...] concentration must be 0.3-1.2 mg/mL.Administ er using Fld-ZRDZ-gdzmv ining equipment and through an in-line 0.22 [...] Date Vitamin D3 (Cholecalciferol Oral) 2023 Vitamin J20-Emfxu Acid Oral 500 mcg-400 mcg 11/13/2022 Gabapentin [...] (L) 9.1 (L) 9.3 (L) 9.0 (L) Daev % 61.3 51.3 52.2 57.2 LY % [...]
--- OUTSIDE RECORDS SUMMARY | 2024-09-18 09:48 | XMS_ITS | CCD ---
Author Name Interface, [id number] lity Address [address] [facility] [address] [address] [facility] Oncology Address [address] [facility] [address] [address] Care Team Providers Care Gas Fitter Helper Name Role Phone Oziel Box MD Unavailable [...] Ordered By Specimen Source Lab Address [place]03 [facility] [place] See special assemblies supervisor d 08/14 CBC w/ auto diff Dave # (ANC) K/uL 1.6 6.6 2.9 FINAL [facility] , [address] [place] [address] d [address] [place] [id number] 0 08/14 CBC w/ auto diff IG % % 0.0 0.5 0.2 FINAL [facility] , [address] [facility] [address] [place] [id number] 0 08/14 CBC w/ auto diff MO # K/uL 0.2 1.3 0.4 FINAL Oziel Box [facility] Oncology , [address] [facility] [address] [place] [id number] 0 08/14 CBC w/ auto diff MCV fL 80.0 104.0 97.8 FINAL [facility] , [facility] [address] [facility] [address] [place] [id number] 0 08/14 CBC w/ auto diff IG # K/uL 0.0 0.03 0.01 FINAL Oziel Box [place] [facility] , [address] [place] [id number] 0 08/14 CBC w/ auto diff MO % % 6.0 15.0 8.7 FINAL Oziel Box [place] [facility] , [address] [place] [id number] 0 08/14 CBC w/ auto diff EO # K/uL 0.0 0.6 0.2 FINAL Oziel Box [place] [facility] , [address] [place] [id number] 0 08/14 CBC w/ auto diff EO % % 0.0 7.0 3.8 FINAL Oziel Box [place] [facility] , [address] [place] [id number] 0 08/14 CBC w/ auto diff RBC M/uL 3.9 5.1 3.60 Low FINAL Oziel Box [place] [facility] , [address] [place] [id number] 0 08/14 CBC w/ auto diff MPV fL 9.5 13.4 9.0 Low FINAL Oziel Box [place] [facility] , [address] [place] [id number] 0 08/14 CBC w/ auto diff WBC K/uL 3.0 8.9 4.7 FINAL Oziel Box [place] [facility] , [address] [place] [id number] 0 08/14 CBC w/ auto diff PLT K/uL 113.0 364.0 211 FINAL Oziel Box [place] [facility] , [address] [place] [id number] 0 08/14 CBC w/ auto diff BA % % 0.0 2.0 0.4 FINAL Oziel Box [place] [facility] , [address] [place] [id number] 0 08/14 CBC w/ auto diff BA # K/uL 0.0 0.2 0.0 FINAL Oziel Box [place] [facility] , [address] [place] [id number] 0 08/14 CBC w/ auto diff HGB g/dL 11.3 15.2 11.5 FINAL Oziel Box [place] [facility] , [address] [place] [id number] 0 08/14 CBC w/ auto diff RDW % 11.4 16.1 13.60 FINAL Oziel Box [place] [facility] , [address] [place] [id number] 0 08/14 CBC w/ auto diff LY % % 14.0 41.0 25.6 FINAL Oziel Box [place] [facility] , [address] [place] [id number] 0 08/14 CBC w/ auto diff LY # K/uL 0.4 3.6 1.2 FINAL Oziel Box [place] [facility] , [address] [place] [id number] 0 08/14 CBC w/ auto diff MCH pg 26.0 35.0 31.9 FINAL Oziel Box [place] [facility] , [address] [place] [id number] 0 08/14 CBC w/ auto diff MCHC g/dL 30.0 35.0 32.7 FINAL Oziel Box [facility] Oncology , [address] [facility] [address] [facility] [id number] 0 08/14 CBC w/ auto diff NRBC % #/100W BC 0.0 0.2 0.0 FINAL Oziel Box [facility] Oncology , [address] [facility] [address] [facility] [id number] 0 08/14 CBC w/ auto diff HCT % 35.0 48.0 35.2 FINAL Oziel Box [facility] Oncology , [address] [facility] [address] [facility] [id number] 0 08/14 CBC w/ auto diff Dave % % 43.0 74.0 61.3 FINAL Oziel Box [facility] Oncology , [address] [facility] [address] [facility] [id number] 0 08/14 CMP Alkal ine phosp hatas e U/L 36.0 125.0 68 FINAL Oziel Box * [facility] Oncology , [address] [facility] [id number] 0 08/14 CMP ALT/S GPT U/L 0.0 34.0 10 FINAL Oziel Box * [facility] Oncology , [address] [facility] [address] [facility] [id number] 0 08/14 CMP Calci um mg/dL 8.4 10.2 8.7 FINAL Oziel Box * [facility] Oncology , [address] [facility] [address] [id number] 0 08/14 CMP GFR estim ate ml/min /1.73m ^2 66.5 GFR is calculate d using the CKD-EPI equation. FINAL Oziel Box * [facility] Oncology , [address] [facility] [address] [facility] [id number] 0 08/14 CMP CO2 mmol/L 22.0 30.0 [...] hour stability window. FINAL Oziel Box * [facility] Oncology , [facility] [address] [facility] [id number] 0 08/14 CMP Gluco se mg/dL 74.0 100.0 95 FINAL Oziel Box * [facility] Oncology , [facility] [address] [id number] 0 08/14 CMP Chlor vipin mmol/L 96.0 107.0 109 High FINAL Oziel Box * [facility] Oncology , [address] [facility] [address] [id number] 0 08/14 CMP Total prote in g/dL 6.3 8.2 6.5 FINAL Oziel Box * [facility] Oncology , [address] [facility] [address] [id number] 0 08/14 CMP BUN mg/dL 7.0 17.0 25.0 High FINAL Oziel Box * [facility] Oncology , [address] [facility] [address] [id number] 0 08/14 CMP Creat inine mg/dL 0.66 1.25 0.90 FINAL Oziel Box * [facility] Oncology , [address] [facility] [address] [id number] 0 08/14 CMP AST/S GOT U/L 14.0 36.0 28 FINAL Oziel Box * [facility] Oncology , [facility] [address] [id number] 0 08/14 CMP Album in g/dL 3.5 5.0 3.7 FINAL Oziel Box * [facility] Oncology , [address] [facility] [address] [id number] 0 08/14 CMP Bilir ubin, total mg/dL 0.2 1.3 0.8 FINAL Oziel Box * [facility] Oncology , [facility] [address] [id number] 0 08/14 CMP Sodiu m mmol/L 137.0 145.0 137 FINAL Oziel Box * [facility] Oncology , [facility] [address] [id number] 0 08/14 CMP Potas sium mmol/L 3.5 5.1 4.5 FINAL Oziel Box * [facility] Oncology , [facility] [address] [id number] Medications Date Name Route Dose Frequency Instructions Start Date End Date Status Gabapentin Oral QD a ctive Sennosides Oral orally 1.0 tablet daily inactive Zinc Oral po 1.0 daily inactiv e Vitamin V01-Hiohs Acid Oral 500 mcg-400 mcg daily active [...] inactive Turmeric (Curcumin) Oral 1000.0 inac tive Probiotics Oral i nactive Trazodone Oral 100.0 mg daily @HS inactive Omeprazole Oral Delayed Release Tablet po 1.0 daily 40mg. inactive Acetaminophen Oral capsule Q8H prn stopped Ibuprofen Oral po prn st opped Escitalopram Oral daily active Diphenhydramine Oral PRN inactive 2023 levothyroxine sodium [...] & w /o contrast metastatic lung cancer, PEDIATRIC DENTAL ASSISTANT surveillance Ordered 08/18/2024 Physician Order RTC Ordered [...] Date Vitamin D3 (Cholecalciferol Oral) 2023 Vitamin H83-Uwxun Acid Oral 500 mcg-400 mcg 11/13/2022 Gabapentin [...] Onc Follow-up Note (Amended) Patient Name: MARISELA HANANH Date Of : 1950 Today's Provider:?Oziel Box [...] Oral 02/18/2024 Docusate Sodium Oral 02/18/2024 Vitamin M06-Vwvlc Acid Oral 500 mcg-400 mcg 11/13/2022 Levothyroxine [...] (L) 9.3 (L) 9.0 (L) 8.7 (L) Adve % 51.3 52.2 57.2 60.9 LY % [...] signed by Oziel Box MD 02/21/2024 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
--- OUTSIDE RECORDS SUMMARY | 2024-09-18 09:49 | XMS_ITS ---
Author Name Interface, [id number] lity Address [address] [facility] [address] [address] [facility] Oncology Address [address] [facility] [address] [address] Allergies and Adverse Reactions Medication/Group Name Reaction [...] Status Baclofen Oral daily act charles Vitamin Q73-Ehdib Acid Oral 500 mcg-400 mcg daily active [...] concentration must be 0.3-1.2 mg/mL.Administ er using Ozf-[id number]-uaayq ining equipment and through an in-line 0.22 [...] Date Vitamin D3 (Cholecalciferol Oral) 2023 Vitamin K72-Qftag Acid Oral 500 mcg-400 mcg 11/13/2022 Gabapentin [...]
--- OUTSIDE RECORDS SUMMARY | 2024-09-18 09:50 | XMS_ITS ---
Author Name Interface, [id number] lity Address [address] [facility] [address] [address] [facility] Oncology Address [address] [facility] [address] [place] [address] Allergies and Adverse Reactions Medication/Group Name Reaction [...] Lab Address 04/03 Misc other lab See facilities maintenance assistant d 08/14 CMP Album in g/dL 3.5 5.0 3.7 FINAL Oziel Box * [facility] Oncology , [address] [facility] [id number] 0 08/14 CMP Alkal ine phosp hatas e U/L 36.0 125.0 68 FINAL Oziel Box * [facility] Oncology , [address] [facility] [id number] 0 08/14 CMP ALT/S GPT U/L 0.0 34.0 10 FINAL Oziel Box * [facility] Oncology , [address] [facility] [id number] 0 08/14 CMP AST/S GOT U/L 14.0 36.0 28 FINAL Oziel Box * [facility] Oncology , [address] [facility] [id number] 0 08/14 CMP BUN mg/dL 7.0 17.0 25.0 High FINAL Oziel Box * [facility] Oncology , [address] [facility] [id number] 0 08/14 CMP Calci um mg/dL 8.4 10.2 8.7 FINAL Oziel Box * [facility] Oncology , [address] [facility] [id number] 0 08/14 CMP Chlor vipin mmol/L 96.0 107.0 109 High FINAL Oziel Box * [facility] Oncology , [address] [facility] [id number] 0 08/14 CMP CO2 mmol/L 22.0 30.0 [...] hour stability window. FINAL Oziel Box * [facility] Oncology , [address] [facility] [id number] 0 08/14 CMP Creat inine mg/dL 0.66 1.25 0.90 FINAL Oziel Box * [facility] Oncology , [address] [facility] [id number] 0 08/14 CMP GFR estim ate ml/min /1.73m ^2 66.5 GFR is calculate d using the CKD-EPI equation. FINAL Oziel Box * [facility] Oncology , [address] [facility] [id number] 0 08/14 CMP Gluco se mg/dL 74.0 100.0 95 FINAL Oziel Box * [facility] Oncology , [address] [facility] [id number] 0 08/14 CMP Potas sium mmol/L 3.5 5.1 4.5 FINAL Oziel Box * [facility] Oncology , [address] [facility] [id number] 0 08/14 CMP Sodiu m mmol/L 137.0 145.0 137 FINAL Oziel Box * [facility] Oncology , [address] [facility] [id number] 0 08/14 CMP Bilir ubin, total mg/dL 0.2 1.3 0.8 FINAL Oziel Box * [facility] Oncology , [address] [facility] [id number] 0 08/14 CMP Total prote in g/dL 6.3 8.2 6.5 FINAL Oziel Box * [facility] Oncology , [address] [facility] [id number] 0 08/14 CBC w/ auto diff WBC K/uL 3.0 8.9 4.7 FINAL Oziel Box [place] [facility] , [address] [place] [id number] 0 08/14 CBC w/ auto diff HGB g/dL 11.3 15.2 11.5 FINAL Oziel Box [place] [facility] , [address] [place] [id number] 0 08/14 CBC w/ auto diff PLT K/uL 113.0 364.0 211 FINAL Oziel Box [place] [facility] , [address] [place] [id number] 0 08/14 CBC w/ auto diff Dave # (ANC) K/uL 1.6 6.6 2.9 FINAL Oziel Box [place] [facility] , [address] [place] [id number] 0 08/14 CBC w/ auto diff Dave % % 43.0 74.0 61.3 FINAL Oziel Box [place] [facility] , [address] [place] [id number] 0 08/14 CBC w/ auto diff IG % % 0.0 0.5 0.2 FINAL Oziel Box [place] [facility] , [address] [place] [id number] 0 08/14 CBC w/ auto diff IG # K/uL 0.0 0.03 0.01 FINAL Oziel Box [place] [facility] , [address] [place] [id number] 0 08/14 CBC w/ auto diff LY % % 14.0 41.0 25.6 FINAL Oziel Box [place] [facility] , [address] [place] [id number] 0 08/14 CBC w/ auto diff MO % % 6.0 15.0 8.7 FINAL Oziel Box [place] [facility] , [address] [place] [id number] 0 08/14 CBC w/ auto diff EO % % 0.0 7.0 3.8 FINAL Oziel Box [place] [facility] , [address] [place] [id number] 0 08/14 CBC w/ auto diff BA % % 0.0 2.0 0.4 FINAL Oziel Box [place] [facility] , [address] [place] [id number] 0 08/14 CBC w/ auto diff LY # K/uL 0.4 3.6 1.2 FINAL Oziel Box [place] [facility] , [address] [place] [id number] 0 08/14 CBC w/ auto diff MO # K/uL 0.2 1.3 0.4 FINAL Oziel Box [place] [facility] , [address] [place] [id number] 0 08/14 CBC w/ auto diff EO # K/uL 0.0 0.6 0.2 FINAL Oziel Box [place] [facility] , [address] [place] [id number] 0 08/14 CBC w/ auto diff BA # K/uL 0.0 0.2 0.0 FINAL Oziel Box [place] [facility] , [address] [place] [id number] 0 08/14 CBC w/ auto diff NRBC % #/100W BC 0.0 0.2 0.0 FINAL Oziel Box [place] [facility] , [address] [place] [id number] 0 08/14 CBC w/ auto diff RBC M/uL 3.9 5.1 3.60 Low FINAL Oziel Box [place] [facility] , [address] [place] [id number] 0 08/14 CBC w/ auto diff HCT % 35.0 48.0 35.2 FINAL Oziel Box [place] [facility] , [address] [place] [id number] 0 08/14 CBC w/ auto diff MCV fL 80.0 104.0 97.8 FINAL Oziel Box [place] [facility] , [address] [place] [id number] 0 08/14 CBC w/ auto diff MCH pg 26.0 35.0 31.9 FINAL Oziel Box [place] [facility] , [address] [place] [id number] 0 08/14 CBC w/ auto diff MCHC g/dL 30.0 35.0 32.7 FINAL Oziel Box [place] [facility] , [address] [place] [id number] 0 08/14 CBC w/ auto diff MPV fL 9.5 13.4 9.0 Low FINAL Oziel Box [place] [facility] , [address] [place] [id number] 0 08/14 CBC w/ auto diff RDW % 11.4 16.1 13.60 FINAL Oziel Box [place] [facility] , [address] [place] [id number] 0 Medications Date Name Route Dose Frequency Instructions Start Date End Date Status Baclofen Oral daily act charles Vitamin S54-Zcqnv Acid Oral 500 mcg-400 mcg daily active [...] concentration must be 0.3-1.2 mg/mL.Administ er using Fdv-[id number]-tjpzt ining equipment and through an in-line 0.22 [...] Date Vitamin D3 (Cholecalciferol Oral) 2023 Vitamin S45-Fqoeu Acid Oral 500 mcg-400 mcg 11/13/2022 Gabapentin [...] BSA: 2.06, BMI: 36.56 kg/m2 Covid-19 vaccine ([employer]) (12/18/2020), Elsewhere; Covid-19 vaccine ([employer]) (10/09/2020), Elsewhere; Covid-19 vaccine ([employer]) (04/14/2021), Elsewhere; Flu vaccine - Adult (02/18/2024), [...] Oral 02/18/2024 Docusate Sodium Oral 02/18/2024 Vitamin C15-Xmsbm Acid Oral 500 mcg-400 mcg 11/13/2022 Levothyroxine [...] by Oziel Box MD 02/21/2024 11:02 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
--- OUTSIDE RECORDS SUMMARY | 2024-09-18 09:50 | XMS_ITS ---
Author Name Interface, [id number] lity Address [address] [address] [facility] Address [address] [facility] [address] [address] Allergies and Adverse Reactions Medication/Group Name Reaction [...] 20 MIN 05/13/2022 APPOINTMENT CHART CHECK 5 [place] N 05/08/2022 APPOINTMENT OV 20 MIN 05/08/2022 [...] 15 MIN 02/20/2022 APPOINTMENT CHART CHECK 5 [place] N 01/16/2022 APPOINTMENT PORT DRAW 15 MIN [...] K/uL 3.0 8.9 5.5 FINAL [facility] Delgado [facility] [place], [address] [facility] [address] [place] [facility] [id number] [phone] Phone: () - 10/24 CBC w/ auto diff HGB g/dL 11.3 15.2 12.0 FINAL Lia Delgado [facility] [place], [address] [facility] [address] [place] [facility] [id number] 0 Phone: () - 10/24 CBC w/ auto diff PLT K/uL 113.0 364.0 211 FINAL Lia Delgado [facility] [place], [address] [place] [facility] [id number] 0 Phone: () - 10/24 CBC w/ auto diff Dave # (ANC) K/uL 1.6 6.6 3.4 FINAL Lia Danny [facility] [place], [address] [facility] [address] [place] [id number] 0 Phone: () - 10/24 CBC w/ auto diff Dave % % 43.0 74.0 62.4 FINAL Lia Tolbert a [facility] - [place], [address] [facility] [address] [place] [id number] 0 Phone: () - 10/24 CBC w/ auto diff IG % % 0.0 0.5 1.1 High FINAL Lia T[facility]leyot a [facility] - [place], [address] [facility] [address] [place] [id number] 0 Phone: () - 10/24 CBC w/ auto diff IG # K/uL 0.0 0.03 0.06 High FINAL Lia Tolbert a [facility] - [place], [address] [facility] [address] [place] [id number] 0 Phone: () - 10/24 CBC w/ auto diff LY % % 14.0 41.0 22.2 FINAL Lia Tolbert a [facility] - [place], [address] [facility] [address] [place] [id number] 0 Phone: () - 10/24 CBC w/ auto diff MO % % 6.0 15.0 10.1 FINAL Lia Tolbert a [facility] - [place], [address] [facility] [address] [place] [id number] 0 Phone: () - 10/24 CBC w/ auto diff EO % % 0.0 7.0 3.8 FINAL Lia Tolbert [facility] - [place], [address] [facility] [address] [place] [id number] 0 Phone: () - 10/24 CBC w/ auto diff BA % % 0.0 2.0 0.4 FINAL Lia Tilleyot a [facility] - [place], [address] [facility] [address] [place] [id number] 0 Phone: () - 10/24 CBC w/ auto diff LY # K/uL 0.4 3.6 1.2 FINAL Lai Tilleyot a [facility] - [place], [address] [place] [id number] 0 Phone: () - 10/24 CBC w/ auto diff MO # K/uL 0.2 1.3 0.6 FINAL Lia Tilleyot a [facility] - [place], [address] [place] [id number] 0 Phone: () - 10/24 CBC w/ auto diff EO # K/uL 0.0 0.6 0.2 FINAL Lia Tilleyot a [facility] - [place], [address] [place] [id number] 0 Phone: () - 10/24 CBC w/ auto diff BA # K/uL 0.0 0.2 0.0 FINAL Lia Tilleyot a [facility] - [place], [address] [place] [id number] 0 Phone: () - 10/24 CBC w/ auto diff NRBC % #/100W BC 0.0 0.2 0.0 FINAL Lia Tolbert a [facility] - [place], [address] [place] [id number] 0 Phone: () - 10/24 CBC w/ auto diff RBC M/uL 3.9 5.1 3.62 Low FINAL Lia Tolbert a [facility] - [place], [address] [place] [id number] 0 Phone: () - 10/24 CBC w/ auto diff HCT % 35.0 48.0 35.7 FINAL Lia Tolbert a [facility] - [place], [address] [place] [id number] 0 Phone: () - 10/24 CBC w/ auto diff MCV fL 80.0 104.0 98.6 FINAL Lia Tilleyot a [facility] - [place], [address] [place] [id number] 0 Phone: () - 10/24 CBC w/ auto diff MCH pg 26.0 35.0 33.1 FINAL Lia Tilley gi [facility] - [place], [address] [facility] [facility] [address] [place] [id number] 0 Phone: () - 10/24 CBC w/ auto diff MCHC g/dL 30.0 35.0 33.6 FINAL Lia Tilley gi [facility] - [place], [address] [place] [id number] 0 Phone: () - 10/24 CBC w/ auto diff MPV fL 9.5 13.4 9.1 Low FINAL Lia Tilley gi [facility] - [place], [address] [place] [id number] 0 Phone: () - 10/24 CBC w/ auto diff RDW % 11.4 16.1 12.20 FINAL Lia Tilley gi [facility] - [place], [address] [facility] [address] [place] [id number] 0 Phone: () - 10/24 TSH w/ refle x to free T4 TSH uIU/ml 0.32 5.0 0.05 Low Test performed at [facility] [place] [address] Immunoass ay Analyzer that uses an immunoenz ymometric sandwich assay for analysis. Patient testing should not be performed using multiple methodharley amador due to analytica l variation seen between test methodharley amador. FINAL Lia Delgado [facility], [address] [place] [address] [place] [id number] 0 Phone: () - 10/24 CMP Album in g/dL 3.2 5.2 4.3 FINAL Liagi Delgado [facility], [address] [place] [id number] 0 Phone: () - 10/24 CMP Alkal ine phosp hatas e U/L 46.0 116.0 59 FINAL [facility], [address] [place] [id number] 0 Phone: () - 10/24 CMP ALT/S GPT U/L 7.0 40.0 12 FINAL [facility], [address] [facility] [id number] 0 Phone: () - 10/24 CMP AST/S GOT U/L 13.0 40.0 22 FINAL [facility], [address] [facility] 100 [facility] [id number] 0 Phone: () - 10/24 CMP BUN mg/dL 9.0 23.0 16 FINAL [place] [address] [address] [facility] 100 [facility] [id number] 0 Phone: () - 10/24 CMP Calci um mg/dL 8.7 10.4 9.7 FINAL [place] [address] [address] [facility] 100 [facility] [id number] 0 Phone: () - 10/24 CMP Chlor vipin mmol/L 96.0 114.0 110 [place] [address] [id number] 0 Phone: () - 10/24 CMP CO2 [...] window. FINAL [facility], [facility] [address] [id number] 0 Phone: () - 10/24 CMP Creat inine mg/dL 0.5 1.2 0.83 FINAL [facility], [facility] N [address] [id number] 0 Phone: () - 10/24 CMP GFR estim ate ml/min /1.73m ^2 74.5 GFR is calculate d using the CKD-EPI equation. [facility], [facility] N [facility] 100 [facility] [id number] 0 Phone: () - 10/24 CMP Gluco se mg/dL 73.0 126.0 87 [facility], [address] [id number] 0 Phone: () - 10/24 CMP Potas sium mmol/L 3.5 5.1 4.4 FINAL [facility] [address] [id number] 0 Phone: () - 10/24 CMP Sodiu m mmol/L 136.0 145.0 145 FINAL [facility] [address] [id number] 0 Phone: () - 10/24 CMP Bilir ubin, total mg/dL 0.3 1.2 0.4 [place] [address] [id number] 0 Phone: () - 10/24 CMP Total prote in g/dL 5.7 8.2 6.4 FINAL [place] [address] [id number] 0 Phone: () - 10/24 T4, free panel T4, free ng/dL 0.7 1.8 1.62 Test performed at [facility] [place] 2000 Immunoass ay Analyzer that uses an immunoenz ymometric sandwich assay for analysis. Patient testing should not be performed using multiple methodolo gies due to analytica l variation seen between test methodolo gies. FINAL [place] [address] [id number] 0 Phone: () - 11/21 TSH w/ refle x to free T4 TSH uIU/ml 0.32 5.0 0.16 Low Test performed at [facility] [place] 2000 Immunoass ay Analyzer that uses an immunoenz ymometric sandwich assay for analysis. Patient testing should not be performed using multiple methodolo gies due to analytica l variation seen between test methodolo gies. FINAL [facility] [address] [id number] 0 Phone: () - 11/21 CBC w/ auto diff WBC K/uL 3.0 8.9 4.1 FINAL Lia [facility] [place], [address] [place] [id number] 0 Phone: () - 11/21 CBC w/ auto diff HGB g/dL 11.3 15.2 11.8 FINAL Lia Tilleyot a [facility] - [place], [address] [place] [id number] 0 Phone: () - 11/21 CBC w/ auto diff PLT K/uL 113.0 364.0 223 FINAL Lia Tilleyot a [facility] - [place], [address] [place] [id number] 0 Phone: () - 11/21 CBC w/ auto diff Dave # (ANC) K/uL 1.6 6.6 2.3 FINAL Lia Tolbert a [facility] - [place], [address] [place] [id number] 0 Phone: () - 11/21 CBC w/ auto diff Dave % % 43.0 74.0 56.3 FINAL Lia Tolbert a [facility] - [place], [address] [place] [id number] 0 Phone: () - 11/21 CBC w/ auto diff IG % % 0.0 0.5 0.2 FINAL Lia Tolbert a [facility] - [place], [address] [place] [id number] 0 Phone: () - 11/21 CBC w/ auto diff IG # K/uL 0.0 0.03 0.01 FINAL Lia Tilleyot a [facility] - [place], [address] [place] [id number] 0 Phone: () - 11/21 CBC w/ auto diff LY % % 14.0 41.0 29.0 FINAL Lia Tilleyot a [facility] - [place], [address] [place] [id number] 0 Phone: () - 11/21 CBC w/ auto diff MO % % 6.0 15.0 10.4 FINAL Lia Tilleyot a [facility] - [place], [address] [place] [id number] 0 Phone: () - 11/21 CBC w/ auto diff EO % % 0.0 7.0 3.9 FINAL Lia Tilleyot a [facility] - [place], [address] [place] [id number] 0 Phone: () - 11/21 CBC w/ auto diff BA % % 0.0 2.0 0.2 FINAL Lia Tilleyot a [facility] - [place], [address] [place] [id number] 0 Phone: () - 11/21 CBC w/ auto diff LY # K/uL 0.4 3.6 1.2 FINAL Lia Tilleyot a [facility] - [place], [address] [place] [id number] 0 Phone: () - 11/21 CBC w/ auto diff MO # K/uL 0.2 1.3 0.4 FINAL Lia Tilleyot a [facility] - [place], [address] [place] [id number] 0 Phone: () - 11/21 CBC w/ auto diff EO # K/uL 0.0 0.6 0.2 FINAL Lia Tilleyot a [facility] - [place], [address] [place] [id number] 0 Phone: () - 11/21 CBC w/ auto diff BA # K/uL 0.0 0.2 0.0 FINAL Lia Tilleyot a [facility] - [place], [address] [place] [id number] 0 Phone: () - 11/21 CBC w/ auto diff NRBC % #/100W BC 0.0 0.2 0.0 FINAL Lia Tilleyot a [facility] - [place], [address] [place] [id number] 0 Phone: () - 11/21 CBC w/ auto diff RBC M/uL 3.9 5.1 3.69 Low FINAL Lia Tilleyot a [facility] - [place], [address] [facility] [address] [place] [id number] 0 Phone: () - 11/21 CBC w/ auto diff HCT % 35.0 48.0 35.6 FINAL Lia Tilleyot gi [facility] - [place], [address] [facility] [address] [place] [id number] 0 Phone: () - 11/21 CBC w/ auto diff MCV fL 80.0 104.0 96.5 FINAL Lia Tilleyot a [facility] - [place], [address] [place] [address] d [address] [place] [id number] 0 Phone: () - 11/21 CBC w/ auto diff MCH pg 26.0 35.0 32.0 FINAL Lia angelo [facility] - [place], [address] [facility] [address] [place] [id number] 0 Phone: () - 11/21 CBC w/ auto diff MCHC g/dL 30.0 35.0 33.1 FINAL Lia angelo [facility] - [place], [address] [facility] [address] [place] [id number] 0 Phone: () - 11/21 CBC w/ auto diff MPV fL 9.5 13.4 9.0 Low FINAL Lia angelo [facility] - [place], [address] [facility] [address] [place] [id number] 0 Phone: () - 11/21 CBC w/ auto diff RDW % 11.4 16.1 12.40 FINAL Lia Tolbert a [facility] - [place], [facility] [place] [facility] [address] [place] [id number] 0 Phone: () - 11/21 CMP Album in g/dL 3.2 5.2 4.1 FINAL Lia Tilley a [facility] - [place], [address] [place] [id number] 0 Phone: () - 11/21 CMP Alkal ine phosp hatas e U/L 46.0 116.0 52 FINAL [facility], [address] [facility] [address] [id number] 0 Phone: () - 11/21 CMP ALT/S GPT U/L 7.0 40.0 17 FINAL [place] [address] [address] [facility] [address] [id number] 0 Phone: () - 11/21 CMP AST/S GOT U/L 13.0 40.0 24 FINAL [place] [address] [id number] 0 Phone: () - 11/21 CMP BUN mg/dL 9.0 23.0 14 FINAL [place] [address] [address] [facility] [address] [id number] 0 Phone: () - 11/21 CMP Calci um mg/dL 8.7 10.4 9.3 FINAL [place] [address] [address] [facility] [address] [id number] 0 Phone: () - 11/21 CMP Chlor vipin mmol/L 96.0 114.0 111 FINAL [place] [address] [address] [facility] [address] [id number] 0 Phone: () - 11/21 CMP CO2 [...] window. FINAL [facility], [facility] [address] [facility] [address] [place] [address] [id number] 0 Phone: () - 11/21 CMP Creat inine mg/dL 0.5 1.2 0.79 FINAL [place] [address] [id number] 0 Phone: () - 11/21 CMP GFR estim ate ml/min /1.73m ^2 79.1 GFR is calculate d using the CKD-EPI equation. FINAL [place] [address] [id number] 0 Phone: () - 11/21 CMP Gluco se mg/dL 73.0 126.0 86 FINAL [place] [address] [id number] 0 Phone: () - 11/21 CMP Potas sium mmol/L 3.5 5.1 4.[address] [id number] 0 Phone: () - 11/21 CMP Sodiu m mmol/L 136.0 145.0 144 FINAL [place] [address] [id number] 0 Phone: () - 11/21 CMP Bilir ubin, total mg/dL 0.3 1.2 0.3 FINAL [place] [address] [id number] 0 Phone: () - 11/21 CMP Total prote in g/dL 5.7 8.2 6.2 FINAL [place] [address] [id number] 0 Phone: () - 11/21 T4, free panel T4, free ng/dL 0.7 1.8 1.13 Test performed at [facility] [place] 2000 Immunoass ay Analyzer that uses an immunoenz ymometric sandwich assay for analysis. Patient testing should not be performed using multiple kathi amador due to analytica l variation seen between test kathi amador. FINAL [place] [address] [id number] 0 Phone: () - 12/19 CBC w/ auto diff WBC K/uL 3.0 8.9 4.9 FINAL [facility] [place] [facility] [place], [address] [place] [id number] 0 Phone: () - 12/19 CBC w/ auto diff HGB g/dL 11.3 15.2 11.8 FINAL Oziel Tilleyot a [facility] - [place], [address] [place] [id number] 0 Phone: () - 12/19 CBC w/ auto diff PLT K/uL 113.0 364.0 218 FINAL Oziel Tilleyot a [facility] - [place], [address] [place] [id number] 0 Phone: () - 12/19 CBC w/ auto diff Dave # (ANC) K/uL 1.6 6.6 2.7 FINAL Oziel Tilleyot a [facility] - [place], [address] [place] [id number] 0 Phone: () - 12/19 CBC w/ auto diff Dave % % 43.0 74.0 55.3 FINAL Oziel Tilleyot a [facility] - [place], [address] [place] [id number] 0 Phone: () - 12/19 CBC w/ auto diff IG % % 0.0 0.5 0.2 FINAL Oziel Tilleyot a [facility] - [place], [address] [place] [id number] 0 Phone: () - 12/19 CBC w/ auto diff IG # K/uL 0.0 0.03 0.01 FINAL Oziel T[facility]ley[facility] a [facility] - [place], [address] [place] [id number] 0 Phone: () - 12/19 CBC w/ auto diff LY % % 14.0 41.0 30.6 FINAL Oziel T[facility]ley[facility] a [facility] - [place], [address] [place] [id number] 0 Phone: () - 12/19 CBC w/ auto diff MO % % 6.0 15.0 9.3 FINAL Oziel T[facility]ley[facility] a [facility] - [place], [address] [place] [id number] 0 Phone: () - 12/19 CBC w/ auto diff EO % % 0.0 7.0 4.0 FINAL Oziel Tolbert a [facility] - [place], [address] [place] [id number] 0 Phone: () - 12/19 CBC w/ auto diff BA % % 0.0 2.0 0.6 FINAL Oziel Tolbert a [facility] - [place], [address] [place] [id number] 0 Phone: () - 12/19 CBC w/ auto diff LY # K/uL 0.4 3.6 1.5 FINAL Oziel T[facility]ley[facility] a [facility] - [place], [address] [place] [id number] 0 Phone: () - 12/19 CBC w/ auto diff MO # K/uL 0.2 1.3 0.5 FINAL Oziel angelo [facility] - [place], [address] [place] [id number] 0 Phone: () - 12/19 CBC w/ auto diff EO # K/uL 0.0 0.6 0.2 FINAL Oziel angelo [facility] - [place], [address] [place] [id number] 0 Phone: () - 12/19 CBC w/ auto diff BA # K/uL 0.0 0.2 0.0 FINAL Oziel angelo [facility] - [place], [address] [place] [id number] 0 Phone: () - 12/19 CBC w/ auto diff NRBC % #/100W BC 0.0 0.2 0.0 FINAL Oziel Tolbert a [facility] - [place], [address] [place] [id number] 0 Phone: () - 12/19 CBC w/ auto diff RBC M/uL 3.9 5.1 3.68 Low FINAL Oziel angelo [facility] - [place], [address] [place] [id number] 0 Phone: () - 12/19 CBC w/ auto diff HCT % 35.0 48.0 35.3 FINAL Oziel angelo [facility] - [place], [address] [place] [id number] 0 Phone: () - 12/19 CBC w/ auto diff MCV fL 80.0 104.0 95.9 FINAL Oziel angelo [facility] - [place], [address] [place] [id number] 0 Phone: () - 12/19 CBC w/ auto diff MCH pg 26.0 35.0 32.1 FINAL Oziel angelo [facility] - [place], [address] [place] [id number] 0 Phone: () - 12/19 CBC w/ auto diff MCHC g/dL 30.0 35.0 33.4 FINAL Oziel angelo [facility] - [place], [address] [place] [id number] 0 Phone: () - 12/19 CBC w/ auto diff MPV fL 9.5 13.4 9.1 Low FINAL Oziel angelo [facility] - [place], [address] [place] [id number] 0 Phone: () - 12/19 CBC w/ auto diff RDW % 11.4 16.1 13.30 FINAL Oziel angelo [facility] - [place], [address] [place] [id number] 0 Phone: () - 12/19 CMP Album in g/dL 3.2 5.2 4.0 FINAL Oziel angelo [facility] - [place], [address] [place] [id number] 0 Phone: () - 12/19 CMP Alkal ine phosp hatas e U/L 46.0 116.0 58 FINAL Oziel angelo [facility], [address] [facility] 100 [facility] [id number] 0 Phone: () - 12/19 CMP ALT/S GPT U/L 7.0 40.0 13 FINAL Oziel angelo [facility] [address] [facility] 100 [facility] [id number] 0 Phone: () - 12/19 CMP AST/S GOT U/L 13.0 40.0 24 FINAL Oziel angelo [place] [address] [address] [facility] [address] [id number] 0 Phone: () - 12/19 CMP BUN mg/dL 9.0 23.0 18 FINAL Oziel angelo [place] [address] [id number] 0 Phone: () - 12/19 CMP Calci um mg/dL 8.7 10.4 9.7 FINAL Oziel angelo [place] [address] [id number] 0 Phone: () - 12/19 CMP Chlor vipin mmol/L 96.0 114.0 111 FINAL Oziel angelo [facility] [address] [id number] 0 Phone: () - 12/19 CMP CO2 [...] 96 hour stability window. FINAL Oziel angelo [facility], [facility] [address] [facility] [address] [id number] 0 Phone: () - 12/19 CMP Creat inine mg/dL 0.5 1.2 0.82 FINAL Oziel angelo [place] [address] [address] [facility] [address] [id number] 0 Phone: () - 12/19 CMP GFR estim ate ml/min /1.73m ^2 75.6 GFR is calculate d using the CKD-EPI equation. FINAL Oziel angelo [facility], [address] [facility] 100 [facility] [id number] 0 Phone: () - 12/19 CMP Gluco se mg/dL 73.0 126.0 81 FINAL Oziel angelo [facility] [address] [facility] 100 [facility] [id number] 0 Phone: () - 12/19 CMP Potas sium mmol/L 3.5 5.1 4.4 FINAL Oziel angelo [facility] [address] [facility] 100 [facility] [id number] 0 Phone: () - 12/19 CMP Sodiu m mmol/L 136.0 145.0 144 FINAL Oziel angelo [place] [address] [id number] 0 Phone: () - 12/19 CMP Bilir ubin, total mg/dL 0.3 1.2 0.4 FINAL Oziel angelo [place] [address] [address] [facility] [address] [id number] 0 Phone: () - 12/19 CMP Total prote in g/dL 5.7 8.2 6.3 FINAL zOiel angelo [place] [address] [id number] 0 Phone: () - 12/19 TSH w/ refle x to free T4 TSH uIU/ml 0.32 5.0 2.75 Test performed at [facility] [place] [address] Immunoass ay Analyzer that uses an immunoenz ymometric sandwich assay for analysis. Patient testing should not be performed using multiple methodharley amador due to analytica l variation seen between test kathi amador. FINAL Oziel angelo [facility], [address] [facility] 100 [facility] [id number] 0 Phone: () - 01/12 [facility] other lab See hospice educator d 01/16 CMP Album in g/dL 3.2 5.2 4.3 FINAL Oziel angelo [facility] [address] [facility] 100 [facility] [id number] 0 Phone: () - 01/16 CMP Alkal ine phosp hatas e U/L 46.0 116.0 64 FINAL Oziel angelo [facility], [address] [facility] 100 [facility] [id number] 0 Phone: () - 01/16 CMP ALT/S GPT U/L 7.0 40.0 12 FINAL Oziel angelo [facility] [address] [facility] 100 [facility] [id number] 0 Phone: () - 01/16 CMP AST/S GOT U/L 13.0 40.0 23 FINAL Oziel angelo [place] [address] [address] [facility] [address] [id number] 0 Phone: () - 01/16 CMP BUN mg/dL 9.0 23.0 17 FINAL Oziel angelo [place] [address] [id number] 0 Phone: () - 01/16 CMP Calci um mg/dL 8.7 10.4 9.4 FINAL Oziel angelo [place] [address] [id number] 0 Phone: () - 01/16 CMP Chlor vipin mmol/L 96.0 114.0 108 FINAL Oziel angelo [place] [address] [id number] 0 Phone: () - 01/16 CMP CO2 [...] 96 hour stability window. FINAL Oziel angelo [place] [address] [address] [facility] [address] [id number] 0 Phone: () - 01/16 CMP Creat inine mg/dL 0.5 1.2 1.07 FINAL Oziel angelo [facility] [address] [facility] 100 [facility] [id number] 0 Phone: () - 01/16 CMP GFR estim ate ml/min /1.73m ^2 54.9 Low GFR is calculate d using the CKD-EPI equation. FINAL Oziel angelo [place] [address] [id number] 0 Phone: () - 01/16 CMP Gluco se mg/dL 73.0 126.0 84 FINAL Oziel angelo [place] [address] [address] [facility] [address] [id number] 0 Phone: () - 01/16 CMP Potas sium mmol/L 3.5 5.1 4.4 FINAL Oziel angelo [place] [address] [id number] 0 Phone: () - 01/16 CMP Sodiu m mmol/L 136.0 145.0 141 FINAL Oziel angelo [place] [address] [id number] 0 Phone: () - 01/16 CMP Bilir ubin, total mg/dL 0.3 1.2 0.4 FINAL Oziel angelo [place] [address] [id number] 0 Phone: () - 01/16 CMP Total prote in g/dL 5.7 8.2 6.6 FINAL Oziel angelo [place] [address] [id number] 0 Phone: () - 01/16 TSH w/ refle x to free T4 TSH uIU/ml 0.32 5.0 14.74 High Provider Alert. Notified Vicki by Lynne Flannery on 01/19/2022 at 2:55 PM.Test performed at [facility] [place] 2000 Immunoass ay Analyzer that uses an immunoenz ymometric sandwich assay for analysis. Patient testing should not be performed using multiple kathi amador due to analytica l variation seen between test kathi amador. FINAL Oziel angelo [place] [address] [address] [facility] [address] [id number] 0 Phone: () - 01/16 CBC w/ auto diff WBC K/uL 3.0 8.9 4.4 FINAL Oziel angelo [facility], [address] [place] [id number] 0 Phone: () - 01/16 CBC w/ auto diff HGB g/dL 11.3 15.2 11.9 FINAL Oziel T[facility] - [place], [address] [place] [id number] 0 Phone: () - 01/16 CBC w/ auto diff PLT K/uL 113.0 364.0 231 FINAL Oziel [facility] - [place], [address] [place] [id number] 0 Phone: () - 01/16 CBC w/ auto diff Dave # (ANC) K/uL 1.6 6.6 2.4 FINAL Oziel angelo [facility] - [place], [address] [place] [id number] 0 Phone: () - 01/16 CBC w/ auto diff Dave % % 43.0 74.0 54.7 FINAL Oziel Tolbert a [facility] - [place], [address] [place] [id number] 0 Phone: () - 01/16 CBC w/ auto diff IG % % 0.0 0.5 0.2 FINAL Oziel [facility] - [place], [address] [place] [id number] 0 Phone: () - 01/16 CBC w/ auto diff IG # K/uL 0.0 0.03 0.01 FINAL Oziel [facility] - [place], [address] [place] [id number] 0 Phone: () - 01/16 CBC w/ auto diff LY % % 14.0 41.0 31.8 FINAL Oziel [facility] - [place], [address] [place] [id number] 0 Phone: () - 01/16 CBC w/ auto diff MO % % 6.0 15.0 8.9 FINAL Oziel [facility] [place], [address] [place] [id number] 0 Phone: () - 01/16 CBC w/ auto diff EO % % 0.0 7.0 3.9 FINAL Oziel [facility] - [place], [address] [place] [id number] 0 Phone: () - 01/16 CBC w/ auto diff BA % % 0.0 2.0 0.5 FINAL Oziel [facility] [place], [address] [place] [id number] 0 Phone: () - 01/16 CBC w/ auto diff LY # K/uL 0.4 3.6 1.4 FINAL Oziel Tolbert a [facility] - [place], [address] [place] [id number] 0 Phone: () - 01/16 CBC w/ auto diff MO # K/uL 0.2 1.3 0.4 FINAL Oziel [facility] - [place], [address] [place] [id number] 0 Phone: () - 01/16 CBC w/ auto diff EO # K/uL 0.0 0.6 0.2 FINAL Oziel [facility] [place], [address] [place] [id number] 0 Phone: () - 01/16 CBC w/ auto diff BA # K/uL 0.0 0.2 0.0 FINAL Oziel [facility] [place], [address] [place] [id number] 0 Phone: () - 01/16 CBC w/ auto diff NRBC % #/100W BC 0.0 0.2 0.0 FINAL Oziel [facility] - [place], [address] [place] [id number] 0 Phone: () - 01/16 CBC w/ auto diff RBC M/uL 3.9 5.1 3.69 Low FINAL Oziel [facility] [place] [facility] [place], [address] [place] [id number] 0 Phone: () - 01/16 CBC w/ auto diff HCT % 35.0 48.0 35.0 FINAL Oziel angelo [facility] [place], [address] [place] [id number] 0 Phone: () - 01/16 CBC w/ auto diff MCV fL 80.0 104.0 94.9 FINAL Oziel angelo [facility] - [place], [address] [place] [id number] 0 Phone: () - 01/16 CBC w/ auto diff MCH pg 26.0 35.0 32.2 FINAL Oziel angelo [facility] - [place], [address] [place] [id number] 0 Phone: () - 01/16 CBC w/ auto diff MCHC g/dL 30.0 35.0 34.0 FINAL Oziel angelo [facility] - [place], [address] [place] [id number] 0 Phone: () - 01/16 CBC w/ auto diff MPV fL 9.5 13.4 8.8 Low FINAL Oziel angelo [facility] - [place], [address] [place] [id number] 0 Phone: () - 01/16 CBC w/ auto diff RDW % 11.4 16.1 13.90 FINAL Oziel angelo [facility] [place], [address] [place] [id number] 0 Phone: () - 01/16 T4, free panel T4, free ng/dL 0.7 1.8 0.75 Test performed at [facility] on a [employer] ay Analyzer that uses an immunoenz ymometric sandwich assay for analysis. Patient testing should not be performed using multiple methodharley amador due to analytica l variation seen between test methodharley amador. FINAL Oziel Tolbert a [facility] - [place], [address] [place] [id number] 0 Phone: () - 02/20 TSH w/ refle x to free T4 TSH uIU/ml 0.32 5.0 Sent to Refer ce Lab. Hard copy results availab le only. Test performed at [facility] on a [employer] Immuno[employer] ay Analyzer that uses an immunoenz ymometric sandwich assay for analysis. Patient testing should not be performed using multiple methodolo marjorie due to analytica l variation seen between test methodolo ginaun. FINAL Oziel angelo On[facility], [address] [facility] [id number] 0 Phone: () - 02/20 TSH uIU/mL 0.35 4.94 8.74 High In Adults, TSH values between 5.00 and 10.00 uIU/ml do notnecess arily indicate the presence of Hypothyro idism.Cor relation with clinical findings such as presence of goiterand /or Thyropero xidase (TPO) Antibody may be helpful. Formore informati on please refer to MAYELA 2004; 291: 228-238.T est Performed by:[facility] [address] - [place], [place] [address]Gfig e : FINAL Oziel Box 02/20 T4, free panel T4, free ng/dL 0.7 1.8 1.01 Test Performed by:[facility] [address] - [place], [place] [address]Ttin e [phone] FINAL Oziel Box 05/08 CBC w/ auto diff WBC K/uL 3.0 8.9 7.3 FINAL Oziel angelo [facility] [place], [address] [facility] [place] [id number] 0 Phone: () - 05/08 CBC w/ auto diff HGB g/dL 11.3 15.2 11.0 Low FINAL Oziel angelo [facility] - [place], [address] [place] [id number] 0 Phone: () - 05/08 CBC w/ auto diff PLT K/uL 113.0 364.0 210 FINAL Oziel [facility] [place] [facility] [place], [address] [place] [id number] 0 Phone: () - 05/08 CBC w/ auto diff Dave # (ANC) K/uL 1.6 6.6 3.7 FINAL Oziel [facility] - [place], [address] [place] [id number] 0 Phone: () - 05/08 CBC w/ auto diff Dave % % 43.0 74.0 51.1 FINAL Oziel [facility] [place], [address] [place] [id number] 0 Phone: () - 05/08 CBC w/ auto diff IG % % 0.0 0.5 0.3 FINAL Oziel [facility] - [place], [address] [place] [id number] 0 Phone: () - 05/08 CBC w/ auto diff IG # K/uL 0.0 0.03 0.02 FINAL Oziel [facility] [place], [address] [place] [id number] 0 Phone: () - 05/08 CBC w/ auto diff LY % % 14.0 41.0 37.9 FINAL Oziel Tolbert a [facility] - [place], [address] [place] [id number] 0 Phone: () - 05/08 CBC w/ auto diff MO % % 6.0 15.0 9.2 FINAL Oziel Tilley[facility] - [place], [address] [place] [id number] 0 Phone: () - 05/08 CBC w/ auto diff EO % % 0.0 7.0 1.2 FINAL Oziel [facility] [place], [address] [place] [id number] 0 Phone: () - 05/08 CBC w/ auto diff BA % % 0.0 2.0 0.3 FINAL Oziel [facility] [place], [address] [place] [id number] 0 Phone: () - 05/08 CBC w/ auto diff LY # K/uL 0.4 3.6 2.8 FINAL Oziel [facility] [place], [address] [place] [id number] 0 Phone: () - 05/08 CBC w/ auto diff MO # K/uL 0.2 1.3 0.7 FINAL Oziel [facility] [place], [address] [place] [id number] 0 Phone: () - 05/08 CBC w/ auto diff EO # K/uL 0.0 0.6 0.1 FINAL Oziel [facility] [place], [address] [place] [id number] 0 Phone: () - 05/08 CBC w/ auto diff BA # K/uL 0.0 0.2 0.0 FINAL Oziel Tolbert a [facility] - [place], [address] [place] [id number] 0 Phone: () - 05/08 CBC w/ auto diff NRBC % #/100W BC 0.0 0.2 0.0 FINAL Oziel [facility] - [place], [address] [place] [id number] 0 Phone: () - 05/08 CBC w/ auto diff RBC M/uL 3.9 5.1 3.27 Low FINAL Oziel [facility] [place], [address] [place] [id number] 0 Phone: () - 05/08 CBC w/ auto diff HCT % 35.0 48.0 32.1 Low FINAL Oziel [facility] - [place], [address] [place] [id number] 0 Phone: () - 05/08 CBC w/ auto diff MCV fL 80.0 104.0 98.2 FINAL Oziel angelo [facility] [place], [address] [place] [id number] 0 Phone: () - 05/08 CBC w/ auto diff MCH pg 26.0 35.0 33.6 FINAL Oziel angelo [facility] - [place], [address] [place] [id number] 0 Phone: () - 05/08 CBC w/ auto diff MCHC g/dL 30.0 35.0 34.3 FINAL Oziel angelo [facility] - [place], [address] [place] [id number] 0 Phone: () - 05/08 CBC w/ auto diff MPV fL 9.5 13.4 9.4 Low FINAL Oziel angelo [facility] - [place], [address] [place] [id number] 0 Phone: () - 05/08 CBC w/ auto diff RDW % 11.4 16.1 13.10 FINAL Oziel angelo [facility] - [place], [address] [place] [id number] 0 Phone: () - 05/08 CMP Album in g/dL 3.2 5.2 4.0 FINAL Oziel angelo On[facility], [address] [place] [address] [place] [id number] 0 Phone: () - 05/08 CMP Alkal ine phosp hatas e U/L 46.0 116.0 56 FINAL Oziel angelo [facility], [address] [place] [id number] 0 Phone: () - 05/08 CMP ALT/S GPT U/L 7.0 40.0 17 FINAL Oziel angelo On[facility], [address] [place] [id number] 0 Phone: () - 05/08 CMP AST/S GOT U/L 13.0 40.0 21 FINAL Oziel angelo [facility], [address] [place] [id number] 0 Phone: () - 05/08 CMP BUN mg/dL 9.0 23.0 22 FINAL Oziel angelo [place] [address] [id number] 0 Phone: () - 05/08 CMP Calci um mg/dL 8.7 10.4 9.3 FINAL Oziel angelo [place] [address] [id number] 0 Phone: () - 05/08 CMP Chlor vipin mmol/L 96.0 114.0 112 FINAL Oziel angelo [place] [address] [id number] 0 Phone: () - 05/08 CMP CO2 [...] 96 hour stability window. FINAL Oziel angelo [place] [address] [id number] 0 Phone: () - 05/08 CMP Creat inine mg/dL 0.5 1.2 0.86 FINAL Oziel angelo [place] [address] [id number] 0 Phone: () - 05/08 CMP GFR estim ate ml/min /1.73m ^2 71.2 GFR is calculate d using the CKD-EPI equation. FINAL Oziel angelo [place] [address] [id number] 0 Phone: () - 05/08 CMP Gluco se mg/dL 73.0 126.0 77 FINAL Ozile angelo [place] [address] [id number] 0 Phone: () - 05/08 CMP Potas sium mmol/L 3.5 5.1 3.9 FINAL Oziel angelo [place] [address] [place] [id number] 0 Phone: () - 05/08 CMP Sodiu m mmol/L 136.0 145.0 148 High FINAL Oziel angelo [facility] [address] [facility] 100 [facility] [id number] 0 Phone: () - 05/08 CMP Bilir ubin, total mg/dL 0.3 1.2 0.4 FINAL Oziel angelo [facility] [address] [facility] 100 [facility] [id number] 0 Phone: () - 05/08 CMP Total prote in g/dL 5.7 8.2 6.1 FINAL Oziel angelo [facility] [address] [facility] 100 [facility] [id number] 0 Phone: () - 05/08 TSH w/ refle x to free T4 TSH uIU/ml 0.32 5.0 1.36 Test performed at [facility] on a [employer] Immun[employer] ay Analyzer that uses an immunoenz ymometric sandwich assay for analysis. Patient testing should not be performed using multiple methodharley amador due to analytica l variation seen between test methodharley amador. FINAL Oziel angelo [facility] [address] [id number] 0 Phone: () - 07/23 [facility] other lab See hospice educator d 07/23 [facility] other lab See hospice educator d 11/03 CMP Album in g/dL 3.2 5.2 4.1 FINAL Oziel angelo [place] [address] [address] [facility] 100 [facility] [id number] 0 Phone: () - 11/03 CMP Alkal ine phosp hatas e U/L 46.0 116.0 59 FINAL Oziel angelo [place] [address] [address] [facility] 100 [facility] [id number] 0 Phone: () - 11/03 CMP ALT/S GPT U/L 7.0 40.0 <7 FINAL Oziel angelo [facility] [address] [facility] 100 [facility] [id number] 0 Phone: () - 11/03 CMP AST/S GOT U/L 13.0 40.0 24 FINAL Oziel angelo [facility], [address] [facility] 100 [facility] [id number] 0 Phone: () - 11/03 CMP BUN mg/dL 9.0 23.0 16.0 FINAL Oziel angelo [facility] [address] [facility] 100 [facility] [id number] 0 Phone: () - 11/03 CMP Calci um mg/dL 8.7 10.4 9.1 FINAL Oziel angelo [place] [address] [id number] 0 Phone: () - 11/03 CMP Chlor vipin mmol/L 96.0 114.0 105 FINAL Oziel angelo [place] [address] [id number] 0 Phone: () - 11/03 CMP CO2 [...] 96 hour stability window. FINAL Oziel angelo [facility], [facility] [address] [id number] 0 Phone: () - 11/03 CMP Creat inine mg/dL 0.5 1.2 0.88 FINAL Oziel angelo [place] [address] [id number] 0 Phone: () - 11/03 CMP GFR estim ate ml/min /1.73m ^2 69.0 GFR is calculate d using the CKD-EPI equation. FINAL Oziel angelo [place] [address] [id number] 0 Phone: () - 11/03 CMP Gluco se mg/dL 73.0 126.0 105 FINAL Oziel angelo [place] [address] [id number] 0 Phone: () - 11/03 CMP Potas sium mmol/L 3.5 5.1 4.4 FINAL Oziel angelo [facility] - [place], [address] [place] [id number] 0 Phone: () - 11/03 CMP Sodiu m mmol/L 136.0 145.0 139 FINAL Oziel angelo [facility], [address] [place] [id number] 0 Phone: () - 11/03 CMP Bilir ubin, total mg/dL 0.3 1.2 0.6 FINAL Oziel angelo [facility], [address] [place] [id number] 0 Phone: () - 11/03 CMP Total prote in g/dL 5.7 8.2 6.6 FINAL Oziel angelo [facility], [address] [place] [id number] 0 Phone: () - 11/03 CBC w/ auto diff WBC K/uL 3.0 8.9 4.7 FINAL Oziel angelo [facility] - [place] , [address] [facility] [place] [id number] 0 Phone: () - 11/03 CBC w/ auto diff HGB g/dL 11.3 15.2 11.6 FINAL Oziel angelo [facility] - [place] , [address] [facility] [facility] [place] [id number] 0 Phone: () - 11/03 CBC w/ auto diff PLT K/uL 113.0 364.0 248 FINAL Oziel angelo [facility] [place], [address] [facility] [place] [id number] 0 Phone: () - 11/03 CBC w/ auto diff Dave # (ANC) K/uL 1.6 6.6 2.9 FINAL Oziel angelo [facility] [place], [address] [place] [address] [address] [facility] [place] [id number] 0 Phone: () - 11/03 CBC w/ auto diff Dave % % 43.0 74.0 60.9 FINAL [facility] [place] [facility] [place], [address] [place] [id number] 0 Phone: () - 11/03 CBC w/ auto diff IG % % 0.0 0.5 0.4 FINAL Oziel [facility]ley[facility] - [place], [address] [place] [id number] 0 Phone: () - 11/03 CBC w/ auto diff IG # K/uL 0.0 0.03 0.02 FINAL Oziel [facility] [place], [address] [place] [id number] 0 Phone: () - 11/03 CBC w/ auto diff LY % % 14.0 41.0 26.8 FINAL Oziel [facility] [place], [address] [place] [id number] 0 Phone: () - 11/03 CBC w/ auto diff MO % % 6.0 15.0 8.5 FINAL Oziel [facility] [place], [address] [place] [id number] 0 Phone: () - 11/03 CBC w/ auto diff EO % % 0.0 7.0 3.0 FINAL Oziel [facility] [place], [address] [place] [id number] 0 Phone: () - 11/03 CBC w/ auto diff BA % % 0.0 2.0 0.4 FINAL Oziel [facility] [place], [address] [place] [id number] 0 Phone: () - 11/03 CBC w/ auto diff LY # K/uL 0.4 3.6 1.3 FINAL Oziel [facility] [place], [address] [place] [id number] 0 Phone: () - 11/03 CBC w/ auto diff MO # K/uL 0.2 1.3 0.4 FINAL Oziel [facility] [place], [address] [place] [id number] 0 Phone: () - 11/03 CBC w/ auto diff EO # K/uL 0.0 0.6 0.1 FINAL Oziel Tolbert a [facility] - [place], [address] [place] [id number] 0 Phone: () - 11/03 CBC w/ auto diff BA # K/uL 0.0 0.2 0.0 FINAL Oziel Tolbert a [facility] - [place], [address] [place] [id number] 0 Phone: () - 11/03 CBC w/ auto diff NRBC % #/100W BC 0.0 0.2 0.0 FINAL Oziel Tolbert a [facility] - [place], [address] [place] [id number] 0 Phone: () - 11/03 CBC w/ auto diff RBC M/uL 3.9 5.1 3.52 Low FINAL Oziel angelo [facility] [place], [address] [place] [id number] 0 Phone: () - 11/03 CBC w/ auto diff HCT % 35.0 48.0 34.2 Low FINAL Oziel angelo [facility] [place], [address] [place] [id number] 0 Phone: () - 11/03 CBC w/ auto diff MCV fL 80.0 104.0 97.2 FINAL Oziel angelo [facility] [place], [address] [place] [id number] 0 Phone: () - 11/03 CBC w/ auto diff MCH pg 26.0 35.0 33.0 FINAL Oziel Tolbert [facility] - [place], [address] [place] [id number] 0 Phone: () - 11/03 CBC w/ auto diff MCHC g/dL 30.0 35.0 33.9 FINAL Oziel angelo [facility] [place], [address] [place] [id number] 0 Phone: () - 11/03 CBC w/ auto diff MPV fL 9.5 13.4 8.7 Low FINAL Oziel angelo [facility] [place], [address] [place] [id number] 0 Phone: () - 11/03 CBC w/ auto diff RDW % 11.4 16.1 14.40 FINAL Oziel angelo [facility] [place], [address] [place] [id number] 0 Phone: () - 02/08 TSH w/ refle x to free T4 TSH uIU/ml 0.32 5.0 3.61 Test performed at [facility] on a [employer] Immun[employer] ay Analyzer that uses an immunoenz ymometric sandwich assay for analysis. Patient testing should not be performed using multiple methodharley amador due to analytica l variation seen between test methodharley amador. FINAL Oziel angelo [facility] - [place], [address] [place] [id number] 0 Phone: () - 02/08 CBC w/ auto diff WBC K/uL 3.0 8.9 4.7 FINAL Oziel angelo [facility] - [place], [address] [place] [id number] 0 Phone: () - 02/08 CBC w/ auto diff HGB g/dL 11.3 15.2 11.0 Low FINAL Oziel angelo [facility] [place], [address] [place] [id number] 0 Phone: () - 02/08 CBC w/ auto diff PLT K/uL 113.0 364.0 194 FINAL Oziel angelo [facility] [place], [address] [place] [id number] 0 Phone: () - 02/08 CBC w/ auto diff Dave # (ANC) K/uL 1.6 6.6 2.7 FINAL [facility] [place] [facility] [place], [address] [place] [id number] 0 Phone: () - 02/08 CBC w/ auto diff Dave % % 43.0 74.0 57.2 FINAL Oziel [facility] [place], [address] [place] [id number] 0 Phone: () - 02/08 CBC w/ auto diff IG % % 0.0 0.5 0.4 FINAL Oziel [facility] [place], [address] [place] [id number] 0 Phone: () - 02/08 CBC w/ auto diff IG # K/uL 0.0 0.03 0.02 FINAL Oziel [facility] [place], [address] [place] [id number] 0 Phone: () - 02/08 CBC w/ auto diff LY % % 14.0 41.0 31.6 FINAL Oziel [facility] [place], [address] [place] [id number] 0 Phone: () - 02/08 CBC w/ auto diff MO % % 6.0 15.0 8.0 FINAL Oziel [facility] [place], [address] [place] [id number] 0 Phone: () - 02/08 CBC w/ auto diff EO % % 0.0 7.0 2.2 FINAL Oziel [facility] [place], [address] [place] [id number] 0 Phone: () - 02/08 CBC w/ auto diff BA % % 0.0 2.0 0.6 FINAL Oziel [facility] [place], [address] [place] [id number] 0 Phone: () - 02/08 CBC w/ auto diff LY # K/uL 0.4 3.6 1.5 FINAL Oziel [facility] [place], [address] [place] [id number] 0 Phone: () - 02/08 CBC w/ auto diff MO # K/uL 0.2 1.3 0.4 FINAL Oziel [facility] [place], [address] [place] [id number] 0 Phone: () - 02/08 CBC w/ auto diff EO # K/uL 0.0 0.6 0.1 FINAL Oziel [facility] [place], [address] [place] [id number] 0 Phone: () - 02/08 CBC w/ auto diff BA # K/uL 0.0 0.2 0.0 FINAL Oziel [facility] [place], [address] [place] [id number] 0 Phone: () - 02/08 CBC w/ auto diff NRBC % #/100W BC 0.0 0.2 0.0 FINAL Oziel [facility] [place], [address] [place] [id number] 0 Phone: () - 02/08 CBC w/ auto diff RBC M/uL 3.9 5.1 3.26 Low FINAL Oziel [facility] [place], [address] [place] [id number] 0 Phone: () - 02/08 CBC w/ auto diff HCT % 35.0 48.0 32.9 Low FINAL Oziel [facility] [place], [address] [place] [id number] 0 Phone: () - 02/08 CBC w/ auto diff MCV fL 80.0 104.0 100.9 FINAL Oziel [facility]ley[facility] - [place], [address] [place] [id number] 0 Phone: () - 02/08 CBC w/ auto diff MCH pg 26.0 35.0 33.7 FINAL Oziel angelo [facility] - [place], [address] [place] [id number] 0 Phone: () - 02/08 CBC w/ auto diff MCHC g/dL 30.0 35.0 33.4 FINAL Oziel angelo [facility] - [place], [address] [place] [id number] 0 Phone: () - 02/08 CBC w/ auto diff MPV fL 9.5 13.4 9.0 Low FINAL Oziel angelo [facility] - [place], [address] [place] [id number] 0 Phone: () - 02/08 CBC w/ auto diff RDW % 11.4 16.1 13.70 FINAL Oziel angelo [facility] - [place], [address] [place] [id number] 0 Phone: () - 02/08 CMP Album in g/dL 3.2 5.2 4.0 FINAL Oziel angelo [facility], [address] [facility] [id number] 0 Phone: () - 02/08 CMP Alkal ine phosp hatas e U/L 46.0 116.0 83 FINAL Oziel angelo [facility], [address] [place] [id number] 0 Phone: () - 02/08 CMP ALT/S GPT U/L 7.0 40.0 <7 FINAL Oziel angelo [facility], [address] [place] [id number] 0 Phone: () - 02/08 CMP AST/S GOT U/L 13.0 40.0 23 FINAL Oziel angelo [facility], [address] [place] [id number] 0 Phone: () - 02/08 CMP BUN mg/dL 9.0 23.0 17.0 FINAL Oziel angelo [facility], [address] [place] [id number] 0 Phone: () - 02/08 CMP Calci um mg/dL 8.7 10.4 8.8 FINAL Oziel angelo [place] [address] [id number] 0 Phone: () - 02/08 CMP Chlor vipin mmol/L 96.0 114.0 109 FINAL Oziel angelo [place] [address] [id number] 0 Phone: () - 02/08 CMP CO2 [...] 96 hour stability window. FINAL Oziel angelo [place] [address] [id number] 0 Phone: () - 02/08 CMP Creat inine mg/dL 0.5 1.2 0.86 FINAL Oziel angelo [place] [address] [id number] 0 Phone: () - 02/08 CMP GFR estim ate ml/min /1.73m ^2 70.9 GFR is calculate d using the CKD-EPI equation. FINAL Oziel angelo [place] [address] [id number] 0 Phone: () - 02/08 CMP Gluco se mg/dL 73.0 126.0 84 FINAL Oziel angelo [place] [address] [address] [facility] [address] [id number] 0 Phone: () - 02/08 CMP Potas sium mmol/L 3.5 5.1 4.5 FINAL Oziel angelo [place] [address] [id number] 0 Phone: () - 02/08 CMP Sodiu m mmol/L 136.0 145.0 141 FINAL Oziel angelo [place] [address] [address] [facility] [address] [phone] 0 Phone: () - 02/08 CMP Bilir ubin, total mg/dL 0.3 1.2 0.3 FINAL Oziel angelo [facility] - [place], [address] [place] [id number] 0 Phone: () - 02/08 CMP Total prote in g/dL 5.7 8.2 6.1 FINAL Oziel angelo [facility] - [place], [address] [place] [id number] 0 Phone: () - 06/06 [facility] [place] [facility] [place] See hospice educator d 08/09 CBC w/ auto diff WBC K/uL 3.0 8.9 3.5 FINAL Oziel angelo [facility] - [place], [address] [facility] [address] [place] [id number] 0 Phone: () - 08/09 CBC w/ auto diff HGB g/dL 11.3 15.2 11.7 FINAL Oziel angelo [facility] - [place], [address] [facility] [address] [place] [id number] 0 Phone: () - 08/09 CBC w/ auto diff PLT K/uL 113.0 364.0 196 FINAL Oziel angelo [facility] - [place], [address] [place] [id number] 0 Phone: () - 08/09 CBC w/ auto diff Dave # (ANC) K/uL 1.6 6.6 1.9 FINAL Oziel angelo [facility] - [place], [address] [place] [id number] 0 Phone: () - 08/09 CBC w/ auto diff Dave % % 43.0 74.0 52.2 FINAL Oziel angelo On[facility] - [place], [address] [place] [id number] 0 Phone: () - 08/09 CBC w/ auto diff IG % % 0.0 0.5 0.3 FINAL Oziel angelo [facility] - [place], [address] [place] [id number] 0 Phone: () - 08/09 CBC w/ auto diff IG # K/uL 0.0 0.03 0.01 FINAL Oziel angelo On[facility] - [place], [address] [place] [id number] 0 Phone: () - 08/09 CBC w/ auto diff LY % % 14.0 41.0 35.0 FINAL Oziel angelo [facility] - [place], [address] [place] [id number] 0 Phone: () - 08/09 CBC w/ auto diff MO % % 6.0 15.0 9.6 FINAL Oziel angelo On[facility] - [place], [address] [place] [id number] 0 Phone: () - 08/09 CBC w/ auto diff EO % % 0.0 7.0 2.3 FINAL Oziel angelo On[facility] - [place], [address] [place] [id number] 0 Phone: () - 08/09 CBC w/ auto diff BA % % 0.0 2.0 0.6 FINAL Oziel angelo On[facility] - [place], [address] [place] [id number] 0 Phone: () - 08/09 CBC w/ auto diff LY # K/uL 0.4 3.6 1.2 FINAL Oziel angelo On[facility] - [place], [address] [place] [id number] 0 Phone: () - 08/09 CBC w/ auto diff MO # K/uL 0.2 1.3 0.3 FINAL Oziel angelo On[facility] - [place], [address] [place] [id number] 0 Phone: () - 08/09 CBC w/ auto diff EO # K/uL 0.0 0.6 0.1 FINAL Oziel angelo [facility] - [place], [address] [place] [id number] 0 Phone: () - 08/09 CBC w/ auto diff BA # K/uL 0.0 0.2 0.0 FINAL Oziel angelo [facility] - [place], [address] [place] [id number] 0 Phone: () - 08/09 CBC w/ auto diff NRBC % #/100W BC 0.0 0.2 0.0 FINAL Oziel angelo [facility] - [place], [address] [place] [id number] 0 Phone: () - 08/09 CBC w/ auto diff RBC M/uL 3.9 5.1 3.51 Low FINAL Oziel angelo [facility] - [place], [address] [place] [id number] 0 Phone: () - 08/09 CBC w/ auto diff HCT % 35.0 48.0 35.6 FINAL Oziel angelo [facility] - [place], [address] [place] [id number] 0 Phone: () - 08/09 CBC w/ auto diff MCV fL 80.0 104.0 101.4 FINAL Oziel angelo [facility] - [place], [address] [place] [id number] 0 Phone: () - 08/09 CBC w/ auto diff MCH pg 26.0 35.0 33.3 FINAL Oziel angelo [facility] - [place], [address] [place] [id number] 0 Phone: () - 08/09 CBC w/ auto diff MCHC g/dL 30.0 35.0 32.9 FINAL Oziel angelo [facility] - [place], [address] [place] [id number] 0 Phone: () - 08/09 CBC w/ auto diff MPV fL 9.5 13.4 9.3 Low FINAL Oziel Tilleyot a [facility] - [place], [address] [facility] [address] [place] [id number] 0 Phone: () - 08/09 CBC w/ auto diff RDW % 11.4 16.1 13.20 FINAL Oziel Tilleyot a [facility] - [place], [address] [facility] [address] [place] [id number] 0 Phone: () - 08/09 CMP Album in g/dL 3.5 5.0 4.1 FINAL Oziel Box * [place] [facility], [address] [facility] [id number] 0 08/09 CMP Alkal ine phosp hatas e U/L 36.0 125.0 66 FINAL Oziel Box * [place] [facility], [address] [facility] [id number] 0 08/09 CMP ALT/S GPT U/L 0.0 34.0 6 FINAL Oziel Box * [place] [facility], [address] [facility] [id number] 0 08/09 CMP AST/S GOT U/L 14.0 36.0 28 FINAL Oziel Box * [place] [facility], [address] [facility] [id number] 0 08/09 CMP BUN mg/dL 7.0 17.0 17.0 FINAL Oziel Box * [place] [facility], [address] [facility] [id number] 0 08/09 CMP Calci um mg/dL 8.4 10.2 9.4 FINAL Oziel Box * [facility], [address] [facility] [id number] 0 08/09 CMP Chlor vipin mmol/L 96.0 107.0 106 FINAL Oziel Box * [facility], [address] [facility] [id number] 0 08/09 CMP CO2 mmol/L 22.0 30.0 [...] FINAL [facility], [address] [facility] [id number] 0 08/09 CMP Creat inine mg/dL 0.66 1.25 0.70 [facility]AL [facility], [address] [id number] 0 08/09 CMP GFR estim ate ml/min /1.73m ^2 90.4 GFR is calculate d using the CKD-EPI equation. FINAL [facility], [address] [id number] 0 08/09 CMP Gluco se mg/dL 74.0 100.0 87 FINAL Oziel Tilleyot a [facility], [address] [facility] [id number] 0 08/09 CMP Potas sium mmol/L 3.5 5.1 4.2 FINAL Oziel Tilleyot [facility], [address] [facility] [id number] 0 08/09 CMP Sodiu m mmol/L 137.0 145.0 139 FINAL Oziel Tilleyot [facility], [address] [id number] 0 08/09 CMP Bilir ubin, total mg/dL 0.2 1.3 0.3 FINAL Oziel Box * [place] [facility] [place], [address] [facility] [id number] 0 08/09 CMP Total prote in g/dL 6.3 8.2 6.7 FINAL Oziel Box * [place] [facility] [place], [address] [facility] [id number] 0 08/09 TSH w/ refle x to free T4 TSHR- v mIU/ml 0.47 4.68 0.74 FINAL Oziel Box * [place] [facility], [address] [facility] [id number] 0 02/13 CBC w/ auto diff WBC K/uL 3.0 8.9 4.7 FINAL Oziel FREEMAN [facility] - [place], [address] [place] [id number] 0 02/13 CBC w/ auto diff HGB g/dL 11.3 15.2 10.4 Low FINAL Oziel FREEMAN [facility] - [place], [address] [place] [id number] 0 02/13 CBC w/ auto diff PLT K/uL 113.0 364.0 252 FINAL Oziel FREEMAN [facility] - [place], [address] [place] [id number] 0 02/13 CBC w/ auto diff Dave # (ANC) K/uL 1.6 6.6 2.4 FINAL Oziel FREEMAN [facility] - [place], [address] [place] [id number] 0 02/13 CBC w/ auto diff Dave % % 43.0 74.0 51.3 FINAL Oziel FREEMAN [facility] - [place], [address] [place] [id number] 0 02/13 CBC w/ auto diff IG % % 0.0 0.5 0.2 FINAL Oziel FREEMAN [facility] - [place], [address] [place] [id number] 0 02/13 CBC w/ auto diff IG # K/uL 0.0 0.03 0.01 FINAL Oziel FREEMAN [facility] - [place], [address] [place] [id number] 0 02/13 CBC w/ auto diff LY % % 14.0 41.0 33.5 FINAL Oziel FREEMAN [facility] - [place], [address] [place] [id number] 0 02/13 CBC w/ auto diff MO % % 6.0 15.0 8.8 FINAL Oziel FREEMAN [facility] - [place], [address] [place] [id number] 0 02/13 CBC w/ auto diff EO % % 0.0 7.0 5.6 FINAL Oziel FREEMAN [facility] - [place], [address] [place] [id number] 0 02/13 CBC w/ auto diff BA % % 0.0 2.0 0.6 FINAL Oziel FREEMAN [facility] - [place], [address] [place] [id number] 0 02/13 CBC w/ auto diff LY # K/uL 0.4 3.6 1.6 FINAL Oziel FREEMAN [facility] - [place], [address] [place] [id number] 0 02/13 CBC w/ auto diff MO # K/uL 0.2 1.3 0.4 FINAL Oziel FREEMAN [facility] - [place], [address] [place] [id number] 0 02/13 CBC w/ auto diff EO # K/uL 0.0 0.6 0.3 FINAL Oziel FREEMAN [facility] - [place], [address] [place] [id number] 0 02/13 CBC w/ auto diff BA # K/uL 0.0 0.2 0.0 FINAL Oziel FREEMAN [facility] - [place], [address] [place] [id number] 0 02/13 CBC w/ auto diff NRBC % #/100W BC 0.0 0.2 0.0 FINAL Oziel FREEMAN [facility] - [place], [address] [place] [id number] 0 02/13 CBC w/ auto diff RBC M/uL 3.9 5.1 3.24 Low FINAL Oziel FREEMAN [facility] - [place], [address] [place] [id number] 0 02/13 CBC w/ auto diff HCT % 35.0 48.0 32.3 Low FINAL Oziel FREEMAN [facility] - [place], [address] [place] [id number] 0 02/13 CBC w/ auto diff MCV fL 80.0 104.0 99.7 FINAL Oziel FREEMAN [facility] - [place], [address] [place] [id number] 0 02/13 CBC w/ auto diff MCH pg 26.0 35.0 32.1 FINAL Oziel FREEMAN [facility] - [place], [address] [place] [id number] 0 02/13 CBC w/ auto diff MCHC g/dL 30.0 35.0 32.2 FINAL Oziel FREEMAN [facility] - [place], [address] [place] [id number] 0 02/13 CBC w/ auto diff MPV fL 9.5 13.4 9.1 Low FINAL Oziel FREEMAN [facility] - [place], [address] [place] [id number] 0 02/13 CBC w/ auto diff RDW % 11.4 16.1 13.70 FINAL Oziel FREEMAN [facility] - [place], [address] [place] [id number] 0 02/13 CMP Album in g/dL 3.5 5.0 3.5 FINAL Oziel Box * [place] [facility], [address] [facility] [id number] 0 02/13 CMP Alkal ine phosp hatas e U/L 36.0 125.0 75 FINAL Oziel Box * [place] [facility], [address] [facility] [id number] 0 02/13 CMP ALT/S GPT U/L 0.0 34.0 <4 Repeate d FINAL Oziel Box * [place] [facility] [place], [address] [facility] [id number] 0 02/13 CMP AST/S GOT U/L 14.0 36.0 17 FINAL Oziel Box * [place] [facility] [place], [address] [facility] [id number] 0 02/13 CMP BUN mg/dL 7.0 17.0 18.0 High FINAL Oziel Card [place] [facility], [address] [facility] [id number] 0 02/13 CMP Calci um mg/dL 8.4 10.2 9.2 FINAL Oziel Card [place] [facility], [address] [facility] [id number] 0 02/13 CMP Chlor vipin mmol/L 96.0 107.0 109 High FINAL Oziel Card [place] [facility], [address] [facility] [id number] 0 02/13 CMP CO2 mmol/L 22.0 30.0 [...] hour stability window. FINAL Oziel FREEMAN [facility], [address] [facility] [id number] 0 02/13 CMP Creat inine mg/dL 0.66 1.25 0.80 FINAL [place]iel Card [place] [facility], [address] [facility] [id number] 0 02/13 CMP GFR estim ate ml/min /1.73m ^2 76.8 GFR is calculate d using the CKD-EPI equation. FINAL Oziel Card [place] [facility], [address] [facility] [id number] 0 02/13 CMP Gluco se mg/dL 74.0 100.0 84 FINAL Oziel Card [place] [facility], [address] [facility] [id number] 0 02/13 CMP Potas sium mmol/L 3.5 5.1 4.4 FINAL Oziel Box * [place] [facility] [place], [address] [facility] [id number] 0 02/13 CMP Sodiu m mmol/L 137.0 145.0 137 FINAL Oziel Box * [place] [facility] - [place], [address] [facility] [id number] 0 02/13 CMP Bilir ubin, total mg/dL 0.2 1.3 0.5 FINAL Oziel Box * [place] [facility] [place], [address] [facility] [id number] 0 02/13 CMP Total prote in g/dL 6.3 8.2 6.2 Low FINAL Oziel Box * [place] [facility] [place], [address] [facility] [id number] 0 04/03 [facility] [place] other lab See hospice educator d 08/14 CMP Album in g/dL 3.5 5.0 3.7 FINAL Oziel Box * [facility] , [address] [facility] [id number] 0 08/14 CMP Alkal ine phosp hatas e U/L 36.0 125.0 68 FINAL Oziel Box * [place] [facility] , [address] [facility] [id number] 0 08/14 CMP ALT/S GPT U/L 0.0 34.0 10 FINAL Oziel Box * [place] [facility] , [address] [facility] [id number] 0 08/14 CMP AST/S GOT U/L 14.0 36.0 28 FINAL Oziel Box * [facility] , [address] [facility] [id number] 0 08/14 CMP BUN mg/dL 7.0 17.0 25.0 High FINAL Oziel Box * [facility] , [address] [facility] [id number] 0 08/14 CMP Calci um mg/dL 8.4 10.2 8.7 FINAL Oziel Box * [facility] , [address] [facility] [id number] 0 08/14 CMP Chlor vipin mmol/L 96.0 107.0 109 High FINAL Oziel Box * [facility] , [address] [facility] [address] [facility] [id number] 0 08/14 CMP CO2 mmol/L 22.0 30.0 [...] hour stability window. FINAL Oziel Box * [facility] , [address] [facility] [address] [facility] [id number] 0 08/14 CMP Creat inine mg/dL 0.66 1.25 0.90 FINAL Oziel Box * [facility] , [address] [facility] [id number] 0 08/14 CMP GFR estim ate ml/min /1.73m ^2 66.5 GFR is calculate d using the CKD-EPI equation. FINAL Oziel Box * [facility] , [address] [id number] 0 08/14 CMP Gluco se mg/dL 74.0 100.0 95 FINAL Oziel Box * [facility] , [address] [facility] [id number] 0 08/14 CMP Potas sium mmol/L 3.5 5.1 4.5 FINAL Oziel Box * [facility] , [address] [facility] [id number] 0 08/14 CMP Sodiu m mmol/L 137.0 145.0 137 FINAL Oziel Box * [facility] , [address] [facility] [id number] 0 08/14 CMP Bilir ubin, total mg/dL 0.2 1.3 0.8 FINAL Oziel Box * [facility] , [address] [facility] [id number] 0 08/14 CMP Total prote in g/dL 6.3 8.2 6.5 FINAL Oziel Box * [facility] , [address] [facility] [id number] 0 08/14 CBC w/ auto diff WBC K/uL 3.0 8.9 4.7 FINAL Oziel Box [place] [facility] , [address] [place] [id number] 0 08/14 CBC w/ auto diff HGB g/dL 11.3 15.2 11.5 FINAL Oziel Box [place] [facility] , [address] [place] [id number] 0 08/14 CBC w/ auto diff PLT K/uL 113.0 364.0 211 FINAL Oziel Box [place] [facility] , [address] [place] [id number] 0 08/14 CBC w/ auto diff Dave # (ANC) K/uL 1.6 6.6 2.9 FINAL Oziel Box [place] [facility] , [address] [place] [id number] 0 08/14 CBC w/ auto diff Dave % % 43.0 74.0 61.3 FINAL Oziel Box [place] [facility] , [address] [place] [id number] 0 08/14 CBC w/ auto diff IG % % 0.0 0.5 0.2 FINAL Oziel Box [place] [facility] , [address] [place] [id number] 0 08/14 CBC w/ auto diff IG # K/uL 0.0 0.03 0.01 FINAL Oziel Box [place] [facility] , [address] [place] [id number] 0 08/14 CBC w/ auto diff LY % % 14.0 41.0 25.6 FINAL Oziel Box [place] [facility] , [address] [place] [id number] 0 08/14 CBC w/ auto diff MO % % 6.0 15.0 8.7 FINAL Oziel Box [place] [facility] , [address] [place] [id number] 0 08/14 CBC w/ auto diff EO % % 0.0 7.0 3.8 FINAL Oziel Box [place] [facility] , [address] [place] [id number] 0 08/14 CBC w/ auto diff BA % % 0.0 2.0 0.4 FINAL Oziel Box [place] [facility] , [address] [place] [id number] 0 08/14 CBC w/ auto diff LY # K/uL 0.4 3.6 1.2 FINAL Oziel Box [place] [facility] , [address] [place] [id number] 0 08/14 CBC w/ auto diff MO # K/uL 0.2 1.3 0.4 FINAL Oziel Box [place] [facility] , [address] [place] [id number] 0 08/14 CBC w/ auto diff EO # K/uL 0.0 0.6 0.2 FINAL Oziel Box [place] [facility] , [address] [place] [id number] 0 08/14 CBC w/ auto diff BA # K/uL 0.0 0.2 0.0 FINAL Oziel Box [place] [facility] , [address] [place] [id number] 0 08/14 CBC w/ auto diff NRBC % #/100W BC 0.0 0.2 0.0 FINAL Oziel Box [place] [facility] , [address] [place] [id number] 0 08/14 CBC w/ auto diff RBC M/uL 3.9 5.1 3.60 Low FINAL Oziel Box [place] [facility] , [address] [place] [id number] 0 08/14 CBC w/ auto diff HCT % 35.0 48.0 35.2 FINAL Oziel Box [place] [facility] , [address] [place] [id number] 0 08/14 CBC w/ auto diff MCV fL 80.0 104.0 97.8 FINAL Oziel Box [place] [facility] , [address] [place] [id number] 0 08/14 CBC w/ auto diff MCH pg 26.0 35.0 31.9 [facility] , [address] [facility] [address] [facility] [id number] 0 08/14 CBC w/ auto diff MCHC g/dL 30.0 35.0 32.7 [facility] , [address] [facility] [address] [facility] [id number] 0 08/14 CBC w/ auto diff MPV fL 9.5 13.4 9.0 Low [facility] , [address] [facility] [address] [facility] [id number] 0 08/14 CBC w/ auto diff RDW % 11.4 16.1 13.60 [facility] , [address] [facility] [address] [facility] [id number] 0 Medications Date Name Route Dose Frequency Instructions Start Date End Date Status Baclofen Oral daily act charles Vitamin [id number] Acid Oral 500 mcg-400 mcg daily active [...] concentration must be 0.3-1.2 mg/mL.Administ er using [id number] ining equipment and through an in-line 0.22 [...]
--- OUTSIDE RECORDS SUMMARY | 2024-09-18 09:51 | XMS_ITS ---
Author Name Interface, P4Sdolzkr lity Address [address] [facility] [address] [address] [facility] Oncology Address [address] [facility] [address] [address] Allergies and Adverse Reactions Medication/Group Name Reaction [...] 20 MIN 05/13/2022 APPOINTMENT CHART CHECK 5 SD N 05/08/2022 APPOINTMENT OV 20 MIN 05/08/2022 [...] 15 MIN 02/20/2022 APPOINTMENT CHART CHECK 5 SD N 01/16/2022 APPOINTMENT PORT DRAW 15 MIN [...] 30 MIN 10/02/2021 APPOINTMENT CHART CHECK 5 SD N 10/01/2021 APPOINTMENT OUTSIDE TEST 5 M [...] 15 MIN 04/08/2021 APPOINTMENT CHART CHECK 5 SD N 04/07/2021 APPOINTMENT OUTSIDE TEST 5 M [...] 1.3 0.7 FINAL Oziel angelo Oncology [facility], [address] [place] [address] [place] [address] [phone] Phone: () - 12/24 iSTAT creat inine panel GFR estim ate ml/min /1.73m ^2 86.7 GFR is calculate d using the CKD-EPI equation. FINAL Oziel angelo Oncology [facility], [address] [place] [address] [place] [address] [phone] Phone: () - 12/24 CMP Album in g/dL 3.2 5.2 4.3 FINAL Oziel angelo Oncology [facility], [facility] [address] [place] [address] [phone] Phone: () - 12/24 CMP Alkal ine phosp hatas e U/L 46.0 116.0 68 FINAL Oziel Tolbert a Oncology [facility], [address] [facility] [address] [place] [address] [phone] Phone: () - 12/24 CMP ALT/S GPT U/L 7.0 40.0 12 FINAL Oziel angelo [place] [address] [address] [facility] [address] [facility] [phone] 0 Phone: () - 12/24 CMP AST/S GOT U/L 13.0 40.0 19 FINAL Oziel angelo [place] [address] [address] [facility] [address] [phone] Phone: () - 12/24 CMP BUN mg/dL 9.0 23.0 17 FINAL Oziel angelo [place] [address] [address] [facility] [address] [phone] 0 Phone: () - 12/24 CMP Calci um mg/dL 8.7 10.4 10.0 FINAL Oziel angelo [place] [address] [phone] 0 Phone: () - 12/24 CMP Chlor vipin mmol/L 96.0 114.0 107 FINAL Oziel angelo [place] [address] [phone] 0 Phone: () - 12/24 CMP CO2 [...] 96 hour stability window. FINAL Oziel angelo [facility], [facility] [address] [facility] [address] [phone] 0 Phone: () - 12/24 CMP Creat inine mg/dL 0.5 1.2 0.85 FINAL Oziel angelo [place] [address] [phone] 0 Phone: () - 12/24 CMP GFR estim ate ml/min /1.73m ^2 68.5 GFR is calculate d using the CKD-EPI equation. FINAL Oziel angelo [place] [address] [address] [facility] [address] [phone] 0 Phone: () - 12/24 CMP Gluco se mg/dL 73.0 126.0 207 High FINAL Oziel angelo [facility], [address] [facility] [phone] 0 Phone: () - 12/24 CMP Potas sium mmol/L 3.5 5.1 4.3 FINAL Oziel angelo [facility], [address] [facility] [id number] 0 Phone: () - 12/24 CMP Sodiu m mmol/L 136.0 145.0 139 FINAL Oziel angelo [facility], [address] [facility] [phone] 0 Phone: () - 12/24 CMP Bilir ubin, total mg/dL 0.3 1.2 0.2 Low FINAL Oziel angelo [facility], [address] [place] [address] [phone] Phone: () - 12/24 CMP Total prote in g/dL 5.7 8.2 7.1 FINAL Oziel angelo [facility], [address] [place] [address] [phone] 0 Phone: () - 12/24 CBC w/ auto diff WBC K/uL 3.0 8.9 5.3 FINAL Oziel angelo Oncology [place] [facility], [address] [facility] [address] [facility] [id number] 0 Phone: () - 12/24 CBC w/ auto diff HGB g/dL 11.3 15.2 12.5 FINAL Oziel angelo Oncology - [place] , [facility] [address] [facility] [address] [facility] [place] [phone] 0 Phone: () - 12/24 CBC w/ auto diff PLT K/uL 113.0 364.0 212 FINAL Oziel angelo Oncology [place] [facility], [address] [place], [place] [address]et [facility] [address] [facility] [id number] 0 Phone: () - 12/24 CBC w/ auto diff Dave # (ANC) K/uL 1.6 6.6 4.7 FINAL Oziel Box [place] On[facility] - [place], [address] [place] [phone] 0 Phone: () - 12/24 CBC w/ auto diff Dave % % 43.0 74.0 88.2 High FINAL Oziel Tilleyot a Oncology - [place], [address] [place] [id number] 0 Phone: () - 12/24 CBC w/ auto diff IG % % 0.0 0.5 0.8 High FINAL Oziel Tilleyot a Oncology - [place], [address] [place] [phone] 0 Phone: () - 12/24 CBC w/ auto diff IG # K/uL 0.0 0.03 0.04 High FINAL Oziel Tilleyot a Oncology - [place], [address] [place] [id number] 0 Phone: () - 12/24 CBC w/ auto diff LY % % 14.0 41.0 10.0 Low FINAL Oziel Tilleyot a Oncology - [place], [address] [place] [phone] 0 Phone: () - 12/24 CBC w/ auto diff MO % % 6.0 15.0 0.8 Low FINAL Oziel Tilleyot gi Oncology - [place], [address] [place] [phone] 0 Phone: () - 12/24 CBC w/ auto diff EO % % 0.0 7.0 0.0 FINAL Oziel Tilleyot a Oncology - [place], [address] [place] [phone] 0 Phone: () - 12/24 CBC w/ auto diff BA % % 0.0 2.0 0.2 FINAL Oziel Tilleyot a Oncology - [place], [address] [place] [phone] 0 Phone: () - 12/24 CBC w/ auto diff LY # K/uL 0.4 3.6 0.5 FINAL Oziel Tilleyot a Oncology - [place], [address] [place] [id number] 0 Phone: () - 12/24 CBC w/ auto diff MO # K/uL 0.2 1.3 0.0 Low FINAL Oziel Tilleyot a Oncology - [place], [address] [place] [phone] 0 Phone: () - 12/24 CBC w/ auto diff EO # K/uL 0.0 0.6 0.0 FINAL Oziel Tilleyot a Oncology - [place], [address] [place] [id number] 0 Phone: () - 12/24 CBC w/ auto diff BA # K/uL 0.0 0.2 0.0 FINAL Oziel Tilleyot a Oncology - [place], [address] [place] [phone] 0 Phone: () - 12/24 CBC w/ auto diff NRBC % #/100W BC 0.0 0.2 0.0 FINAL Oziel Tilleyot a Oncology - [place], [address] [place] [phone] 0 Phone: () - 12/24 CBC w/ auto diff RBC M/uL 3.9 5.1 3.82 Low FINAL Oziel Tilleyot a Oncology - [place], [address] [place] [id number] 0 Phone: () - 12/24 CBC w/ auto diff HCT % 35.0 48.0 36.9 FINAL Oziel Tilleyot a Oncology - [place], [address] [place] [phone] 0 Phone: () - 12/24 CBC w/ auto diff MCV fL 80.0 104.0 96.6 FINAL Oziel Tilleyot a Oncology - [place], [address] [place] [phone] 0 Phone: () - 12/24 CBC w/ auto diff MCH pg 26.0 35.0 32.7 FINAL Oziel Tilleyot a Oncology - [place], [address] [place] [id number] 0 Phone: () - 12/24 CBC w/ auto diff MCHC g/dL 30.0 35.0 33.9 FINAL Oziel Tilleyot a Oncology - [place], [address] [place] [id number] 0 Phone: () - 12/24 CBC w/ auto diff MPV fL 9.5 13.4 9.6 FINAL Oziel Tilleyot a Oncology - [place], [address] [place] [id number] 0 Phone: () - 12/24 CBC w/ auto diff RDW % 11.4 16.1 12.90 FINAL Oziel Tilleyot a Oncology - [place], [address] [place] [phone] 0 Phone: () - 01/02 CBC w/ auto diff WBC K/uL 3.0 8.9 4.4 FINAL Lia Tilleyot a Oncology - [place], [address] [place] [phone] 0 Phone: () - 01/02 CBC w/ auto diff HGB g/dL 11.3 15.2 11.7 FINAL Lia Tilleyot a Oncology - [place], [address] [place] [id number] 0 Phone: () - 01/02 CBC w/ auto diff PLT K/uL 113.0 364.0 209 FINAL Lia Tilleyot a Oncology - [place], [address] [place] [id number] 0 Phone: () - 01/02 CBC w/ auto diff Dave # (ANC) K/uL 1.6 6.6 4.0 FINAL Lia Tilleyot a Oncology - [place], [address] [place] [id number] 0 Phone: () - 01/02 CBC w/ auto diff Dave % % 43.0 74.0 91.7 High FINAL Lia Tilleyot a Oncology - [place], [address] [place] [phone] 0 Phone: () - 01/02 CBC w/ auto diff IG % % 0.0 0.5 0.7 High FINAL Lia Tilleyot a Oncology - [place], [address] [place] [id number] 0 Phone: () - 01/02 CBC w/ auto diff IG # K/uL 0.0 0.03 0.03 FINAL Lia Tilleyot a Oncology - [place], [address] [facility] [address] [place] [phone] 0 Phone: () - 01/02 CBC w/ auto diff LY % % 14.0 41.0 6.7 Low FINAL Lia Tilleyot a Oncology - [place], [address] [facility] [address] [place] [phone] 0 Phone: () - 01/02 CBC w/ auto diff MO % % 6.0 15.0 0.7 Low FINAL Lia Tilleyot a Oncology - [place], [address] [facility] [address] [place] [phone] 0 Phone: () - 01/02 CBC w/ auto diff EO % % 0.0 7.0 0.0 FINAL Lia Tilleyot a Oncology - [place], [address] [place] [id number] 0 Phone: () - 01/02 CBC w/ auto diff BA % % 0.0 2.0 0.2 FINAL Lia Tilleyot a Oncology - [place], [address] [place] [id number] 0 Phone: () - 01/02 CBC w/ auto diff LY # K/uL 0.4 3.6 0.3 Low FINAL Lia Tilleyot a Oncology - [place], [address] [place] [id number] 0 Phone: () - 01/02 CBC w/ auto diff MO # K/uL 0.2 1.3 0.0 Low FINAL Lia Tolbert a Oncology - [place], [address] [facility] [address] [place] [id number] 0 Phone: () - 01/02 CBC w/ auto diff EO # K/uL 0.0 0.6 0.0 FINAL Lia Tolbert a Oncology - [place], [address] [facility] [address] [place] [id number] 0 Phone: () - 01/02 CBC w/ auto diff BA # K/uL 0.0 0.2 0.0 FINAL Lia Tilleyot a Oncology - [place], [address] [facility] [address] [place] [id number] 0 Phone: () - 01/02 CBC w/ auto diff NRBC % #/100W BC 0.0 0.2 0.0 FINAL Lia angelo Oncology - [place], [address] [facility] [address] [place] [id number] 0 Phone: () - 01/02 CBC w/ auto diff RBC M/uL 3.9 5.1 3.56 Low FINAL Lia Tolbert a Oncology - [place], [address] [facility] [address] [place] [id number] 0 Phone: () - 01/02 CBC w/ auto diff HCT % 35.0 48.0 34.2 Low FINAL Lia Tilleyot a Oncology - [place], [address] [facility] [address] [place] [id number] 0 Phone: () - 01/02 CBC w/ auto diff MCV fL 80.0 104.0 96.1 FINAL Lia Tilleyot a Oncology - [place], [address] [facility] [address] [place] [id number] 0 Phone: () - 01/02 CBC w/ auto diff MCH pg 26.0 35.0 32.9 FINAL Lia Tilleyot a Oncology - [place], [address] [place] [id number] 0 Phone: () - 01/02 CBC w/ auto diff MCHC g/dL 30.0 35.0 34.2 FINAL Lia angelo Oncology - [place], [address] [facility] [address] [place] [id number] 0 Phone: () - 01/02 CBC w/ auto diff MPV fL 9.5 13.4 9.5 FINAL Lia angelo Oncology - [place], [address] [facility] [address] [place] [id number] 0 Phone: () - 01/02 CBC w/ auto diff RDW % 11.4 16.1 12.80 FINAL Lia angelo Oncology - [place], [address] [facility] [address] [place] [id number] 0 Phone: () - 01/02 iSTAT creat inine panel Creat inine , iSTAT mg/dl 0.6 1.3 0.8 FINAL Lia angelo Oncology - [place], [address] [facility] [address] [place] [id number] 0 Phone: () - 01/02 iSTAT creat inine panel GFR estim ate ml/min /1.73m ^2 73.7 GFR is calculate d using the CKD-EPI equation. FINAL Lia angelo Oncology - [place], [address] [facility] [address] [place] [id number] 0 Phone: () - 01/02 CMP Album in g/dL 3.2 5.2 4.2 FINAL Lia angelo Oncology [facility], [address] [place] [id number] 0 Phone: () - 01/02 CMP Alkal ine phosp hatas e U/L 46.0 116.0 58 FINAL Lia angelo Oncology [facility], [address] [place] [id number] 0 Phone: () - 01/02 CMP ALT/S GPT U/L 7.0 40.0 13 FINAL [facility] [address] [facility] 100 [facility] [id number] 0 Phone: () - 01/02 CMP AST/S GOT U/L 13.0 40.0 20 FINAL [facility] [address] [facility] [address] [id number] 0 Phone: () - 01/02 CMP BUN mg/dL 9.0 23.0 17 FINAL [place] [address] [address] [facility] [address] [id number] 0 Phone: () - 01/02 CMP Calci um mg/dL 8.7 10.4 10.7 High FINAL [place] [address] [id number] 0 Phone: () - 01/02 CMP Chlor vipin mmol/L 96.0 114.0 109 FINAL [place] [address] [id number] 0 Phone: () - 01/02 CMP CO2 [...] of the 96 hour stability window. FINAL [place] [address] [phone] 0 Phone: () - 01/02 CMP Creat inine mg/dL 0.5 1.2 0.76 FINAL [place] [address] [id number] 0 Phone: () - 01/02 CMP GFR estim ate ml/min /1.73m ^2 78.4 GFR is calculate d using the CKD-EPI equation. FINAL [place] [address] [id number] 0 Phone: () - 01/02 CMP Gluco se mg/dL 73.0 126.0 122 [facility], [address] [facility] [id number] 0 Phone: () - 01/02 CMP Potas sium mmol/L 3.5 5.1 4.4 [facility]AL [facility], [address] [facility] [id number] 0 Phone: () - 01/02 CMP Sodiu m mmol/L 136.0 145.0 140 [facility], [address] [facility] [id number] 0 Phone: () - 01/02 CMP Bilir ubin, total mg/dL 0.3 1.2 0.3 FINAL Lia Delgado [facility], [address] [facility] [id number] 0 Phone: () - 01/02 CMP Total prote in g/dL 5.7 8.2 6.8 FINAL Liagi Delgado [facility], [address] [facility] [id number] 0 Phone: () - 01/09 Smear revie w panel CBC Smear revie w comme nts Consist ent with reporte d results FINAL Lia Delgado [facility] Oncology - [place] , [address] [facility] [address] [facility] [id number] 0 Phone: () - 01/09 CBC w/ auto diff WBC K/uL 3.0 8.9 4.8 FINAL [facility] [place], [address] [facility] [place] [id number] 0 Phone: () - 01/09 CBC w/ auto diff HGB g/dL 11.3 15.2 11.8 FINAL Lia Delgado [facility] Oncology - [place], [address] [place], [place] [address] [facility] [place] [id number] 0 Phone: () - 01/09 CBC w/ auto diff PLT K/uL 113.0 364.0 165 FINAL Liagi Tilleyot a Oncology - [place], [address] [place] [id number] 0 Phone: () - 01/09 CBC w/ auto diff Dave # (ANC) K/uL 1.6 6.6 4.4 FINAL Lia Tilleyot a Oncology - [place], [address] [place] [id number] 0 Phone: () - 01/09 CBC w/ auto diff Dave % % 43.0 74.0 91.5 High FINAL Lia Tilleyot a Oncology - [place], [address] [place] [id number] 0 Phone: () - 01/09 CBC w/ auto diff IG % % 0.0 0.5 1.5 High FINAL Lia Tilleyot a Oncology - [place], [address] [place] [id number] 0 Phone: () - 01/09 CBC w/ auto diff IG # K/uL 0.0 0.03 0.07 High FINAL Lia Tilleyot a Oncology - [place], [address] [place] [id number] 0 Phone: () - 01/09 CBC w/ auto diff LY % % 14.0 41.0 5.5 Low FINAL Lia Tilleyot a Oncology - [place], [address] [place] [id number] 0 Phone: () - 01/09 CBC w/ auto diff MO % % 6.0 15.0 1.3 Low FINAL Lia Tilleyot a Oncology - [place], [address] [place] [id number] 0 Phone: () - 01/09 CBC w/ auto diff EO % % 0.0 7.0 0.0 FINAL Lia Tilleyot a Oncology - [place], [address] [place] [id number] 0 Phone: () - 01/09 CBC w/ auto diff BA % % 0.0 2.0 0.2 FINAL Lia Tilleyot a Oncology - [place], [address] [place] [id number] 0 Phone: () - 01/09 CBC w/ auto diff LY # K/uL 0.4 3.6 0.3 Low FINAL Lia Tilleyot a Oncology - [place], [address] [place] [id number] 0 Phone: () - 01/09 CBC w/ auto diff MO # K/uL 0.2 1.3 0.1 Low FINAL Lia Tilleyot a Oncology - [place], [address] [place] [id number] 0 Phone: () - 01/09 CBC w/ auto diff EO # K/uL 0.0 0.6 0.0 FINAL Lia Tilleyot a Oncology - [place], [address] [place] [id number] 0 Phone: () - 01/09 CBC w/ auto diff BA # K/uL 0.0 0.2 0.0 FINAL Lia Tilleyot a Oncology - [place], [address] [place] [id number] 0 Phone: () - 01/09 CBC w/ auto diff NRBC % #/100W BC 0.0 0.2 0.0 FINAL Lia Tilleyot a Oncology - [place], [address] [place] [id number] 0 Phone: () - 01/09 CBC w/ auto diff RBC M/uL 3.9 5.1 3.56 Low FINAL Lia Tilleyot a Oncology - [place], [address] [place] [id number] 0 Phone: () - 01/09 CBC w/ auto diff HCT % 35.0 48.0 34.2 Low FINAL Lia Tilleyot a Oncology - [place], [address] [place] [id number] 0 Phone: () - 01/09 CBC w/ auto diff MCV fL 80.0 104.0 96.1 FINAL Lia Tilleyot a Oncology - [place], [address] [facility] [address] [place] [id number] 0 Phone: () - 01/09 CBC w/ auto diff MCH pg 26.0 35.0 33.1 FINAL Lia angelo Oncology - [place], [address] [facility] [address] [place] [id number] 0 Phone: () - 01/09 CBC w/ auto diff MCHC g/dL 30.0 35.0 34.5 FINAL Lia Tilleyot a Oncology - [place], [address] [facility] [address] [place] [id number] 0 Phone: () - 01/09 CBC w/ auto diff MPV fL 9.5 13.4 9.4 Low FINAL Lia angelo Oncology - [place], [address] [facility] [address] [place] [id number] 0 Phone: () - 01/09 CBC w/ auto diff RDW % 11.4 16.1 12.90 FINAL Lia angelo Oncology - [place], [address] [facility] [address] [place] [id number] 0 Phone: () - 01/09 CBC w/ auto diff Auto CBC comme nts Slide review to follow FINAL Lia Tolbert a Oncology - [place], [address] [facility] [address] [place] [id number] 0 Phone: () - 01/09 CMP Album in g/dL 3.2 5.2 4.2 FINAL Lia Tilley a Oncology [facility], [address] [facility] [address] [place] [id number] 0 Phone: () - 01/09 CMP Alkal ine phosp hatas e U/L 46.0 116.0 65 FINAL Lia Tilley a Oncology [facility], [address] [place] [id number] 0 Phone: () - 01/09 CMP ALT/S GPT U/L 7.0 40.0 16 FINAL [place] [address] [address] [facility] 100 [facility] [id number] 0 Phone: () - 01/09 CMP AST/S GOT U/L 13.0 40.0 19 FINAL [facility] [address] [facility] [address] [id number] 0 Phone: () - 01/09 CMP BUN mg/dL 9.0 23.0 19 FINAL [place] [address] [address] [facility] [address] [id number] 0 Phone: () - 01/09 CMP Calci um mg/dL 8.7 10.4 10.4 FINAL [place] [address] [address] [facility] [address] [id number] 0 Phone: () - 01/09 CMP Chlor vipin mmol/L 96.0 114.0 106 FINAL [place] [address] [address] [facility] [address] [id number] 0 Phone: () - 01/09 CMP CO2 [...] the 96 hour stability window. FINAL [facility], [facility] N [address] [id number] 0 Phone: () - 01/09 CMP Creat inine mg/dL 0.5 1.2 0.78 FINAL [place] [address] [id number] 0 Phone: () - 01/09 CMP GFR estim ate ml/min /1.73m ^2 76.0 GFR is calculate d using the CKD-EPI equation. FINAL [place] [address] [address] [facility] [address] [phone] 0 Phone: () - 01/09 CMP Gluco se mg/dL 73.0 126.0 129 High FINAL Lia [facility], [address] [place] [address] [id number] 0 Phone: () - 01/09 CMP Potas sium mmol/L 3.5 5.1 4.5 FINAL [facility], [address] [place] [address] [id number] 0 Phone: () - 01/09 CMP Sodiu m mmol/L 136.0 145.0 139 FINAL [facility], [address] [place] [address] [id number] 0 Phone: () - 01/09 CMP Bilir ubin, total mg/dL 0.3 1.2 0.4 FINAL [facility], [address] [facility] [address] [place] [address] [id number] 0 Phone: () - 01/09 CMP Total prote in g/dL 5.7 8.2 6.7 FINAL [facility], [address] [place] [address] [phone] 0 Phone: () - 01/09 iSTAT creat inine panel Creat inine , iSTAT mg/dl 0.6 1.3 0.7 FINAL Liagi Delgado [facility], [address] [facility] [address] [place] [address] [phone] 0 Phone: () - 01/09 iSTAT creat inine panel GFR estim ate ml/min /1.73m ^2 86.6 GFR is calculate d using the CKD-EPI equation. FINAL [facility], [address] [place] [address] [place] [address] [id number] 0 Phone: () - 01/16 iSTAT creat inine panel Creat inine , iSTAT mg/dl 0.6 1.3 0.8 FINAL [facility], [address] [place] [address] [place] [phone] 0 Phone: () - 01/16 iSTAT creat inine panel GFR estim ate ml/min /1.73m ^2 73.7 GFR is calculate d using the CKD-EPI equation. FINAL Lia Tolbert a Oncology - [place], [address] [place] [id number] 0 Phone: () - 01/16 Smear revie w panel CBC Smear revie w comme nts Consist ent with reporte d results FINAL Lia Tolbert a Oncology - [place], [address] [place] [id number] 0 Phone: () - 01/16 CBC w/ auto diff LY % % 14.0 41.0 4.0 Low FINAL Lia Tolbert a Oncology - [place], [address] [place] [id number] 0 Phone: () - 01/16 CBC w/ auto diff MO % % 6.0 15.0 1.6 Low FINAL Lia Tolbert a Oncology - [place], [address] [place] [id number] 0 Phone: () - 01/16 CBC w/ auto diff EO % % 0.0 7.0 0.0 FINAL Lia angelo Oncology - [place], [address] [place] [id number] 0 Phone: () - 01/16 CBC w/ auto diff BA % % 0.0 2.0 0.2 FINAL Lia Tolbert a Oncology - [place], [address] [place] [id number] 0 Phone: () - 01/16 CBC w/ auto diff LY # K/uL 0.4 3.6 0.2 Low FINAL Lia Tolbert a Oncology - [place], [address] [place] [id number] 0 Phone: () - 01/16 CBC w/ auto diff MO # K/uL 0.2 1.3 0.1 Low FINAL Lia Tilleyot a Oncology - [place], [address] [place] [id number] 0 Phone: () - 01/16 CBC w/ auto diff EO # K/uL 0.0 0.6 0.0 FINAL Lia Tilleyot a On[facility] - [place], [address] [place] [id number] 0 Phone: () - 01/16 CBC w/ auto diff BA # K/uL 0.0 0.2 0.0 FINAL Lia Tilleyot a [facility] - [place], [address] [place] [id number] 0 Phone: () - 01/16 CBC w/ auto diff NRBC % #/100W BC 0.0 0.2 0.0 FINAL Lia Tilleyot a [facility] - [place], [address] [place] [id number] 0 Phone: () - 01/16 CBC w/ auto diff RBC M/uL 3.9 5.1 3.30 Low FINAL Lia Tilleyot a On[facility] - [place], [address] [place] [id number] 0 Phone: () - 01/16 CBC w/ auto diff HCT % 35.0 48.0 32.8 Low FINAL Lia Tilleyot a On[facility] - [place], [address] [place] [id number] 0 Phone: () - 01/16 CBC w/ auto diff MCV fL 80.0 104.0 99.4 FINAL Lia Tilleyot a On[facility] - [place], [address] [place] [place] [id number] 0 Phone: () - 01/16 CBC w/ auto diff MCH pg 26.0 35.0 33.3 FINAL [facility] - [place], [address] [place] [id number] 0 Phone: () - 01/16 CBC w/ auto diff MCHC g/dL 30.0 35.0 33.5 FINAL [facility] [place], [address] [place] [id number] 0 Phone: () - 01/16 CBC w/ auto diff MPV fL 9.5 13.4 9.2 Low FINAL [facility] [place], [address] [place] [id number] 0 Phone: () - 01/16 CBC w/ auto diff RDW % 11.4 16.1 13.90 FINAL [facility] - [place], [address] [place] [id number] 0 Phone: () - 01/16 CBC w/ auto diff Auto CBC comme nts Slide review to follow FINAL [facility] [place], [address] [facility] [address] [place] [id number] 0 Phone: () - 01/16 CBC w/ auto diff HGB g/dL 11.3 15.2 11.0 Low FINAL [facility] [place], [address] [facility] [address] [place] [id number] 0 Phone: () - 01/16 CBC w/ auto diff PLT K/uL 113.0 364.0 144 FINAL [facility] [place], [address] [place] [id number] 0 Phone: () - 01/16 CBC w/ auto diff Dave # (ANC) K/uL 1.6 6.6 4.2 FINAL [facility] - [place], [address] [place] [id number] 0 Phone: () - 01/16 CBC w/ auto diff Dave % % 43.0 74.0 92.4 High FINAL [facility] - [place], [address] [place] [id number] 0 Phone: () - 01/16 CBC w/ auto diff IG % % 0.0 0.5 1.8 High FINAL [facility], [address] [facility] [address] [facility] [place] [id number] 0 Phone: () - 01/16 CBC w/ auto diff IG # K/uL 0.0 0.03 0.08 High FINAL [facility], [address] [facility] [address] [facility] [place] [id number] 0 Phone: () - 01/16 CBC w/ auto diff WBC K/uL 3.0 8.9 4.5 FINAL Lia angelo [facility], [address] [facility] [address] [facility] [id number] 0 Phone: () - 01/16 CMP Album in g/dL 3.2 5.2 3.9 FINAL [place] [address] [address] [facility] [address] [place] [address] [id number] 0 Phone: () - 01/16 CMP Alkal ine phosp hatas e U/L 46.0 116.0 62 FINAL Lia Delgado [place] [address] [id number] 0 Phone: () - 01/16 CMP ALT/S GPT U/L 7.0 40.0 19 FINAL Lia Delgado [place] [address] [id number] 0 Phone: () - 01/16 CMP AST/S GOT U/L 13.0 40.0 18 FINAL [place] [address] [address] [facility] [address] [id number] 0 Phone: () - 01/16 CMP BUN mg/dL 9.0 23.0 21 FINAL [place] [address] [address] [facility] [address] [place] [address] [id number] 0 Phone: () - 01/16 CMP Calci um mg/dL 8.7 10.4 10.3 FINAL [place]ia [place] [address] [id number] 0 Phone: () - 01/16 CMP Chlor vipin mmol/L 96.0 114.0 108 FINAL Lia [place] [address] [id number] 0 Phone: () - 01/16 CMP CO2 [...] of the 96 hour stability window. FINAL [place] [address] [id number] 0 Phone: () - 01/16 CMP Creat inine mg/dL 0.5 1.2 0.78 FINAL [place] [address] [id number] 0 Phone: () - 01/16 CMP GFR estim ate ml/min /1.73m ^2 76.0 GFR is calculate d using the CKD-EPI equation. FINAL [place] [address] [id number] 0 Phone: () - 01/16 CMP Gluco se mg/dL 73.0 126.0 138 High FINAL [place] [address] [id number] 0 Phone: () - 01/16 CMP Potas sium mmol/L 3.5 5.1 4.2 FINAL [place] [address] [id number] 0 Phone: () - 01/16 CMP Sodiu m mmol/L 136.0 145.0 140 FINAL [place] [address] [id number] 0 Phone: () - 01/16 CMP Bilir ubin, total mg/dL 0.3 1.2 0.3 FINAL Lia angelo [facility] [place], [address] [place] [id number] 0 Phone: () - 01/16 CMP Total prote in g/dL 5.7 8.2 6.3 FINAL Lia angelo [facility] - [place], [address] [place] [id number] 0 Phone: () - 01/23 Smear revie w panel CBC Smear revie w comme nts Consist ent with reporte d results FINAL Lia angelo [facility] - [place], [address] [place] [id number] 0 Phone: () - 01/23 iSTAT creat inine panel Creat inine , iSTAT mg/dl 0.6 1.3 0.8 FINAL Lia angelo [facility] - [place], [address] [place] [id number] 0 Phone: () - 01/23 iSTAT creat inine panel GFR estim ate ml/min /1.73m ^2 73.7 GFR is calculate d using the CKD-EPI equation. FINAL Lia angelo [facility] - [place], [address] [place] [id number] 0 Phone: () - 01/23 CBC w/ auto diff WBC K/uL 3.0 8.9 2.4 Low FINAL Lia angelo [facility] - [place], [address] [place] [id number] 0 Phone: () - 01/23 CBC w/ auto diff HGB g/dL 11.3 15.2 10.4 Low FINAL Lia angelo [facility] - [place], [address] [place] [id number] 0 Phone: () - 01/23 CBC w/ auto diff PLT K/uL 113.0 364.0 109 Low FINAL Lia angelo [facility] - [place], [address] [place] [id number] 0 Phone: () - 01/23 CBC w/ auto diff Dave # (ANC) K/uL 1.6 6.6 2.2 FINAL [facility] - [place], [address] [place] [id number] 0 Phone: () - 01/23 CBC w/ auto diff Dave % % 43.0 74.0 90.0 High FINAL [facility] - [place], [address] [place] [id number] 0 Phone: () - 01/23 CBC w/ auto diff IG % % 0.0 0.5 0.8 High FINAL [facility] - [place], [address] [place] [id number] 0 Phone: () - 01/23 CBC w/ auto diff IG # K/uL 0.0 0.03 0.02 FINAL [facility] [place], [address] [place] [id number] 0 Phone: () - 01/23 CBC w/ auto diff LY % % 14.0 41.0 7.1 Low FINAL [facility] - [place], [address] [place] [id number] 0 Phone: () - 01/23 CBC w/ auto diff MO % % 6.0 15.0 2.1 Low FINAL [facility] - [place], [address] [place] [id number] 0 Phone: () - 01/23 CBC w/ auto diff EO % % 0.0 7.0 0.0 FINAL [facility] [place], [address] [place] [id number] 0 Phone: () - 01/23 CBC w/ auto diff BA % % 0.0 2.0 0.0 FINAL [facility]ia [place] [facility] [place], [address] [place] [id number] 0 Phone: () - 01/23 CBC w/ auto diff LY # K/uL 0.4 3.6 0.2 Low FINAL [facility] - [place], [address] [place] [id number] 0 Phone: () - 01/23 CBC w/ auto diff MO # K/uL 0.2 1.3 0.1 Low FINAL [facility] - [place], [address] [place] [id number] 0 Phone: () - 01/23 CBC w/ auto diff EO # K/uL 0.0 0.6 0.0 FINAL [facility] - [place], [address] [place] [id number] 0 Phone: () - 01/23 CBC w/ auto diff BA # K/uL 0.0 0.2 0.0 FINAL [facility] - [place], [address] [place] [id number] 0 Phone: () - 01/23 CBC w/ auto diff NRBC % #/100W BC 0.0 0.2 0.0 FINAL [facility] [place], [address] [place] [id number] 0 Phone: () - 01/23 CBC w/ auto diff RBC M/uL 3.9 5.1 3.14 Low FINAL [facility] [place], [address] [place] [id number] 0 Phone: () - 01/23 CBC w/ auto diff HCT % 35.0 48.0 31.4 Low FINAL [facility] - [place], [address] [place] [id number] 0 Phone: () - 01/23 CBC w/ auto diff MCV fL 80.0 104.0 100.0 FINAL [facility] - [place], [address] [facility] [address] [place] [id number] 0 Phone: () - 01/23 CBC w/ auto diff MCH pg 26.0 35.0 33.1 FINAL [facility] - [place], [address] [facility] [address] [place] [id number] 0 Phone: () - 01/23 CBC w/ auto diff MCHC g/dL 30.0 35.0 33.1 FINAL [facility] - [place], [address] [facility] [address] [place] [id number] 0 Phone: () - 01/23 CBC w/ auto diff MPV fL 9.5 13.4 8.7 Low FINAL [facility] - [place], [address] [facility] [address] [place] [id number] 0 Phone: () - 01/23 CBC w/ auto diff RDW % 11.4 16.1 15.00 FINAL [facility] - [place], [address] [facility] [address] [place] [id number] 0 Phone: () - 01/23 CBC w/ auto diff Auto CBC comme nts Slide review to follow FINAL [facility] - [place], [address] [facility] [address] [place] [id number] 0 Phone: () - 01/23 CMP Album in g/dL 3.2 5.2 3.8 FINAL [facility] - [place], [address] [place] [id number] 0 Phone: () - 01/23 CMP Alkal ine phosp hatas e U/L 46.0 116.0 61 FINAL [facility] - [place], [address] [place] [id number] 0 Phone: () - 01/23 CMP ALT/S GPT U/L 7.0 40.0 24 FINAL [facility], [address] [facility] [address] [facility] [id number] 0 Phone: () - 01/23 CMP AST/S GOT U/L 13.0 40.0 21 FINAL [facility] [address] [facility] [address] [id number] 0 Phone: () - 01/23 CMP BUN mg/dL 9.0 23.0 22 FINAL [place] [address] [address] [facility] [address] [id number] 0 Phone: () - 01/23 CMP Calci um mg/dL 8.7 10.4 9.1 FINAL [place] [address] [id number] 0 Phone: () - 01/23 CMP Chlor vipin mmol/L 96.0 114.0 110 FINAL [place] [address] [id number] 0 Phone: () - 01/23 CMP CO2 [...] of the 96 hour stability window. FINAL [place] [address] [id number] 0 Phone: () - 01/23 CMP Creat inine mg/dL 0.5 1.2 0.74 FINAL [place] [address] [id number] 0 Phone: () - 01/23 CMP GFR estim ate ml/min /1.73m ^2 81.0 GFR is calculate d using the CKD-EPI equation. FINAL [place] [address] [address] [facility] [address] [id number] 0 Phone: () - 01/23 CMP Gluco se mg/dL 73.0 126.0 148 High FINAL [facility], [address] [place] [address] [id number] 0 Phone: () - 01/23 CMP Potas sium mmol/L 3.5 5.1 4.4 FINAL [facility] [address] [place] [address] [id number] 0 Phone: () - 01/23 CMP Sodiu m mmol/L 136.0 145.0 141 FINAL [facility] [address] [place] [address] [id number] 0 Phone: () - 01/23 CMP Bilir ubin, total mg/dL 0.3 1.2 0.3 FINAL [facility] [address] [place] [address] [id number] 0 Phone: () - 01/23 CMP Total prote in g/dL 5.7 8.2 6.1 FINAL [facility] [address] [place] [address] [id number] 0 Phone: () - 01/30 CMP Album in g/dL 3.2 5.2 4.1 FINAL [facility] [address] [place] [address] [id number] 0 Phone: () - 01/30 CMP Alkal ine phosp hatas e U/L 46.0 116.0 63 FINAL [facility], [address] [place] [address] [id number] 0 Phone: () - 01/30 CMP ALT/S GPT U/L 7.0 40.0 19 FINAL [place] [address] [place] [address] [id number] 0 Phone: () - 01/30 CMP AST/S GOT U/L 13.0 40.0 22 FINAL [place] [address] [place] [address] [id number] 0 Phone: () - 01/30 CMP BUN mg/dL 9.0 23.0 22 FINAL [place] [address] [address] [facility] [address] [place] [address] [id number] 0 Phone: () - 01/30 CMP Calci um mg/dL 8.7 10.4 9.8 FINAL [facility] [address] [facility] 100 [facility] [id number] 0 Phone: () - 01/30 CMP Chlor vipin mmol/L 96.0 114.0 111 FINAL [place] [address] [address] [facility] [address] [id number] 0 Phone: () - 01/30 CMP CO2 [...] of the 96 hour stability window. FINAL [place] [address] [address] [facility] [address] [id number] 0 Phone: () - 01/30 CMP Creat inine mg/dL 0.5 1.2 0.73 [place] [address] [address] [facility] [address] [id number] 0 Phone: () - 01/30 CMP GFR estim ate ml/min /1.73m ^2 82.3 GFR is calculate d using the CKD-EPI equation. FINAL [place] [address] [address] [facility] [address] [id number] 0 Phone: () - 01/30 CMP Gluco se mg/dL 73.0 126.0 122 FINAL [facility] [address] [facility] [address] [facility] [id number] 0 Phone: () - 01/30 CMP Potas sium mmol/L 3.5 5.1 4.8 [place] [address] [place] [address] [id number] 0 Phone: () - 01/30 CMP Sodiu m mmol/L 136.0 145.0 140 FINAL [facility] a [facility], [address] [facility] [address] [facility] [id number] 0 Phone: () - 01/30 CMP Bilir ubin, total mg/dL 0.3 1.2 0.3 FINAL [facility] a [facility], [address] [facility] [id number] 0 Phone: () - 01/30 CMP Total prote in g/dL 5.7 8.2 6.7 FINAL Lia Tilleyot a [facility], [address] [facility] [address] [facility] [id number] 0 Phone: () - 01/30 CBC w/ auto diff WBC K/uL 3.0 8.9 2.3 Low FINAL [facility] [place], [address] [place] [address] d [address] [place] [facility] [id number] 0 Phone: () - 01/30 CBC w/ auto diff HGB g/dL 11.3 15.2 11.0 Low FINAL [facility] [place], [address] [place] [address] d [address] [place] [facility] [id number] 0 Phone: () - 01/30 CBC w/ auto diff PLT K/uL 113.0 364.0 103 Low FINAL [facility] [place], [address] [place] [address] [facility] [address] [place] [id number] 0 Phone: () - 01/30 CBC w/ auto diff Dave # (ANC) K/uL 1.6 6.6 2.1 FINAL [facility] - [place], [address] [place] [address] d [address] [place] [id number] 0 Phone: () - 01/30 CBC w/ auto diff Dave % % 43.0 74.0 89.6 High FINAL [facility] - [place], [address] [place] [address] [facility] [address] [place] [id number] 0 Phone: () - 01/30 CBC w/ auto diff IG % % 0.0 0.5 0.9 High FINAL [facility] - [place], [address] [place] [id number] 0 Phone: () - 01/30 CBC w/ auto diff IG # K/uL 0.0 0.03 0.02 FINAL [facility] - [place], [address] [facility] [address] [place] [id number] 0 Phone: () - 01/30 CBC w/ auto diff LY % % 14.0 41.0 7.3 Low FINAL [facility] [place], [address] [facility] [address] [place] [id number] 0 Phone: () - 01/30 CBC w/ auto diff MO % % 6.0 15.0 2.2 Low FINAL [facility] - [place], [address] [facility] [address] [place] [id number] 0 Phone: () - 01/30 CBC w/ auto diff EO % % 0.0 7.0 0.0 FINAL [facility] - [place], [address] [facility] [address] [place] [id number] 0 Phone: () - 01/30 CBC w/ auto diff BA % % 0.0 2.0 0.0 FINAL [facility] - [place], [address] [facility] [address] [place] [id number] 0 Phone: () - 01/30 CBC w/ auto diff LY # K/uL 0.4 3.6 0.2 Low FINAL [facility] - [place], [address] [facility] [address] [place] [id number] 0 Phone: () - 01/30 CBC w/ auto diff MO # K/uL 0.2 1.3 0.1 Low FINAL Lia T[facility] - [place], [address] [place] [id number] 0 Phone: () - 01/30 CBC w/ auto diff EO # K/uL 0.0 0.6 0.0 FINAL [facility] - [place], [address] [place] [id number] 0 Phone: () - 01/30 CBC w/ auto diff BA # K/uL 0.0 0.2 0.0 FINAL Lia Tolbert a [facility] - [place], [address] [place] [id number] 0 Phone: () - 01/30 CBC w/ auto diff NRBC % #/100W BC 0.0 0.2 0.0 FINAL [facility] - [place], [address] [place] [id number] 0 Phone: () - 01/30 CBC w/ auto diff RBC M/uL 3.9 5.1 3.23 Low FINAL Lia Tolbert a [facility] - [place], [address] [place] [id number] 0 Phone: () - 01/30 CBC w/ auto diff HCT % 35.0 48.0 32.4 Low FINAL Lia Tolbert a [facility] - [place], [address] [place] [id number] 0 Phone: () - 01/30 CBC w/ auto diff MCV fL 80.0 104.0 100.3 FINAL Lia Tolbert a [facility] - [place], [address] [place] [id number] 0 Phone: () - 01/30 CBC w/ auto diff MCH pg 26.0 35.0 34.1 FINAL Lia T[facility] - [place], [address] [place] [id number] 0 Phone: () - 01/30 CBC w/ auto diff MCHC g/dL 30.0 35.0 34.0 FINAL Lia angelo [facility] - [place], [address] [place] [id number] 0 Phone: () - 01/30 CBC w/ auto diff MPV fL 9.5 13.4 9.2 Low FINAL Lia angelo [facility] - [place], [address] [place] [id number] 0 Phone: () - 01/30 CBC w/ auto diff RDW % 11.4 16.1 14.80 FINAL Lia angelo [facility] - [place], [address] [place] [id number] 0 Phone: () - 01/30 CBC w/ auto diff Auto CBC comme nts Slide review to follow FINAL Lia angelo [facility] - [place], [address] [place] [id number] 0 Phone: () - 01/30 Smear revie w panel CBC Smear revie w comme nts Consist ent with reporte d results FINAL Lia angelo [facility] - [place], [address] [place] [id number] 0 Phone: () - 01/30 iSTAT creat inine panel Creat inine , iSTAT mg/dl 0.6 1.3 0.7 FINAL Lia angelo [facility] - [place], [address] [place] [id number] 0 Phone: () - 01/30 iSTAT creat inine panel GFR estim ate ml/min /1.73m ^2 86.6 GFR is calculate d using the CKD-EPI equation. FINAL Lia angelo [facility] - [place], [address] [place] [id number] 0 Phone: () - 02/17 CMP Album in g/dL 3.2 5.2 3.9 FINAL Oziel Tolbert a [facility] - [place], [address] [place] [id number] 0 Phone: () - 02/17 CMP Alkal ine phosp hatas e U/L 46.0 116.0 57 FINAL Oziel angelo [place] [address] [address] [facility] [address] [id number] 0 Phone: () - 02/17 CMP ALT/S GPT U/L 7.0 40.0 13 FINAL Oziel angelo [place] [address] [id number] 0 Phone: () - 02/17 CMP AST/S GOT U/L 13.0 40.0 19 FINAL Oziel angelo [place] [address] [address] [facility] [address] [id number] 0 Phone: () - 02/17 CMP BUN mg/dL 9.0 23.0 13 FINAL Oziel angelo [place] [address] [id number] 0 Phone: () - 02/17 CMP Calci um mg/dL 8.7 10.4 9.3 FINAL Oziel angelo [place] [address] [address] [facility] [address] [id number] 0 Phone: () - 02/17 CMP Chlor vipin mmol/L 96.0 114.0 111 FINAL Oziel angelo [place] [address] [id number] 0 Phone: () - 02/17 CMP CO2 [...] 96 hour stability window. FINAL Oziel angelo [facility], [facility] [address] [facility] [address] [id number] 0 Phone: () - 02/17 CMP Creat inine mg/dL 0.5 1.2 0.88 FINAL Oziel angelo [place] [address] [address] [facility] [address] [id number] 0 Phone: () - 02/17 CMP GFR estim ate ml/min /1.73m ^2 65.6 GFR is calculate d using the CKD-EPI equation. FINAL Oziel angelo [facility], [facility] N [address] [id number] 0 Phone: () - 02/17 CMP Gluco se mg/dL 73.0 126.0 63 Low FINAL Oziel angelo [place] [address] [id number] 0 Phone: () - 02/17 CMP Potas sium mmol/L 3.5 5.1 4.2 FINAL Oziel angelo [place] [address] [id number] 0 Phone: () - 02/17 CMP Sodiu m mmol/L 136.0 145.0 143 FINAL Oziel angelo [place] [address] [id number] 0 Phone: () - 02/17 CMP Bilir ubin, total mg/dL 0.3 1.2 0.3 FINAL Oziel angelo [place] [address] [id number] 0 Phone: () - 02/17 CMP Total prote in g/dL 5.7 8.2 6.4 FINAL Oziel angelo [place] [address] [id number] 0 Phone: () - 02/17 TSH w/ refle x to free T4 TSH uIU/ml 0.32 5.0 3.46 Test performed at [facility] on a Delivered Immunoass ay Analyzer that uses an immunoenz ymometric sandwich assay for analysis. Patient testing should not be performed using multiple kathi amador due to analytica l variation seen between test kathi amador. FINAL Oziel angelo [place] [address] [id number] 0 Phone: () - 02/17 CBC w/ auto diff WBC K/uL 3.0 8.9 3.7 FINAL Oziel angelo [facility], [address] [facility] [id number] 0 Phone: () - 02/17 CBC w/ auto diff HGB g/dL 11.3 15.2 10.2 Low FINAL Oziel angelo [facility] [place], [address] [place] [id number] 0 Phone: () - 02/17 CBC w/ auto diff PLT K/uL 113.0 364.0 213 FINAL Oziel angelo [facility] - [place], [address] [place] [id number] 0 Phone: () - 02/17 CBC w/ auto diff Dave # (ANC) K/uL 1.6 6.6 2.1 FINAL Oz[facility] angel[facility] - [place], [address] [facility] [address] [place] [id number] 0 Phone: () - 02/17 CBC w/ auto diff Dave % % 43.0 74.0 57.4 FINAL Oziel angelo [facility] - [place], [address] [facility] [address] [place] [id number] 0 Phone: () - 02/17 CBC w/ auto diff IG % % 0.0 0.5 0.8 High FINAL Oziel angel[facility] - [place], [address] [place] [id number] 0 Phone: () - 02/17 CBC w/ auto diff IG # K/uL 0.0 0.03 0.03 FINAL Oziel angelo [facility] - [place], [address] [place] [id number] 0 Phone: () - 02/17 CBC w/ auto diff LY % % 14.0 41.0 21.7 FINAL Oziel angelo [facility] - [place], [address] [place] [id number] 0 Phone: () - 02/17 CBC w/ auto diff MO % % 6.0 15.0 18.5 High FINAL Oziel Tilleyot gi [facility] - [place], [address] [place] [id number] 0 Phone: () - 02/17 CBC w/ auto diff EO % % 0.0 7.0 1.1 FINAL Oziel angel[facility] - [place], [address] [facility] [address] [place] [id number] 0 Phone: () - 02/17 CBC w/ auto diff BA % % 0.0 2.0 0.5 FINAL Oziel angelo [facility] - [place], [address] [facility] [address] [place] [id number] 0 Phone: () - 02/17 CBC w/ auto diff LY # K/uL 0.4 3.6 0.8 FINAL Oziel angelo [facility] - [place], [address] [facility] [address] [place] [id number] 0 Phone: () - 02/17 CBC w/ auto diff MO # K/uL 0.2 1.3 0.7 FINAL Oziel angelo [facility] - [place], [address] [facility] [address] [place] [id number] 0 Phone: () - 02/17 CBC w/ auto diff EO # K/uL 0.0 0.6 0.0 FINAL Oziel angel[facility] - [place], [address] [facility] [address] [place] [id number] 0 Phone: () - 02/17 CBC w/ auto diff BA # K/uL 0.0 0.2 0.0 FINAL Oziel angelo [facility] - [place], [address] [facility] [address] [place] [id number] 0 Phone: () - 02/17 CBC w/ auto diff NRBC % #/100W BC 0.0 0.2 0.0 FINAL Oziel angelo [facility] - [place], [address] [facility] [address] [place] [id number] 0 Phone: () - 02/17 CBC w/ auto diff RBC M/uL 3.9 5.1 2.96 Low FINAL Oziel Tolbert a [facility] - [place], [address] [place] [id number] 0 Phone: () - 02/17 CBC w/ auto diff HCT % 35.0 48.0 30.3 Low FINAL Oziel [facility] - [place], [address] [place] [id number] 0 Phone: () - 02/17 CBC w/ auto diff MCV fL 80.0 104.0 102.4 FINAL Oziel [facility] - [place], [address] [address] [place] [id number] 0 Phone: () - 02/17 CBC w/ auto diff MCH pg 26.0 35.0 34.5 FINAL [facility] [place], [address] [place] [id number] 0 Phone: () - 02/17 CBC w/ auto diff MCHC g/dL 30.0 35.0 33.7 FINAL [facility] - [place], [address] [place] [id number] 0 Phone: () - 02/17 CBC w/ auto diff MPV fL 9.5 13.4 8.5 Low FINAL [facility] - [place], [address] [place] [id number] 0 Phone: () - 02/17 CBC w/ auto diff RDW % 11.4 16.1 17.40 High FINAL [facility] - [place], [address] [place] [id number] 0 Phone: () - 03/17 CBC w/ auto diff WBC K/uL 3.0 8.9 4.5 FINAL [facility] - [place], [address] [place] [id number] 0 Phone: () - 03/17 CBC w/ auto diff HGB g/dL 11.3 15.2 11.6 FINAL [facility] - [place], [address] [place] [id number] 0 Phone: () - 03/17 CBC w/ auto diff PLT K/uL 113.0 364.0 213 FINAL [facility] - [place], [address] [place] [id number] 0 Phone: () - 03/17 CBC w/ auto diff Dave # (ANC) K/uL 1.6 6.6 2.6 FINAL [facility] - [place], [address] [place] [id number] 0 Phone: () - 03/17 CBC w/ auto diff Dave % % 43.0 74.0 57.9 FINAL [facility] - [place], [address] [place] [id number] 0 Phone: () - 03/17 CBC w/ auto diff IG % % 0.0 0.5 0.4 FINAL [facility] - [place], [address] [place] [id number] 0 Phone: () - 03/17 CBC w/ auto diff IG # K/uL 0.0 0.03 0.02 FINAL [facility] - [place], [address] [place] [id number] 0 Phone: () - 03/17 CBC w/ auto diff LY % % 14.0 41.0 22.1 FINAL [facility] - [place], [address] [place] [id number] 0 Phone: () - 03/17 CBC w/ auto diff MO % % 6.0 15.0 12.9 FINAL [facility] - [place], [address] [place] [id number] 0 Phone: () - 03/17 CBC w/ auto diff EO % % 0.0 7.0 5.8 FINAL [facility] - [place], [address] [place] [id number] 0 Phone: () - 03/17 CBC w/ auto diff BA % % 0.0 2.0 0.9 FINAL [facility] - [place], [address] [place] [id number] 0 Phone: () - 03/17 CBC w/ auto diff LY # K/uL 0.4 3.6 1.0 FINAL [facility] - [place], [address] [place] [id number] 0 Phone: () - 03/17 CBC w/ auto diff MO # K/uL 0.2 1.3 0.6 FINAL [facility] - [place], [address] [place] [id number] 0 Phone: () - 03/17 CBC w/ auto diff EO # K/uL 0.0 0.6 0.3 FINAL [facility] - [place], [address] [place] [id number] 0 Phone: () - 03/17 CBC w/ auto diff BA # K/uL 0.0 0.2 0.0 FINAL [facility] - [place], [address] [place] [id number] 0 Phone: () - 03/17 CBC w/ auto diff NRBC % #/100W BC 0.0 0.2 0.0 FINAL [facility] - [place], [address] [place] [id number] 0 Phone: () - 03/17 CBC w/ auto diff RBC M/uL 3.9 5.1 3.26 Low FINAL [facility] - [place], [address] [place] [id number] 0 Phone: () - 03/17 CBC w/ auto diff HCT % 35.0 48.0 34.1 Low FINAL [facility] - [place], [address] [place] [id number] 0 Phone: () - 03/17 CBC w/ auto diff MCV fL 80.0 104.0 104.6 High FINAL [facility] - [place], [address] [place] [id number] 0 Phone: () - 03/17 CBC w/ auto diff MCH pg 26.0 35.0 35.6 High FINAL [facility] - [place], [address] [place] [id number] 0 Phone: () - 03/17 CBC w/ auto diff MCHC g/dL 30.0 35.0 34.0 FINAL [facility] - [place], [address] [place] [id number] 0 Phone: () - 03/17 CBC w/ auto diff MPV fL 9.5 13.4 8.6 Low FINAL [facility] - [place], [address] [place] [id number] 0 Phone: () - 03/17 CBC w/ auto diff RDW % 11.4 16.1 15.20 FINAL [facility] - [place], [address] [place] [id number] 0 Phone: () - 03/17 CMP Album in g/dL 3.2 5.2 4.1 FINAL [facility] - [place], [address] [place] [id number] 0 Phone: () - 03/17 CMP Alkal ine phosp hatas e U/L 46.0 116.0 54 FINAL [facility] - [place], [address] [place] [id number] 0 Phone: () - 03/17 CMP ALT/S GPT U/L 7.0 40.0 12 FINAL [facility] - [place], [address] [facility] [id number] 0 Phone: () - 03/17 CMP AST/S GOT U/L 13.0 40.0 20 FINAL Oziel angelo [place] [address] [address] [facility] 100 [facility] [id number] 0 Phone: () - 03/17 CMP BUN mg/dL 9.0 23.0 20 FINAL Oziel angelo [place] [address] [address] [facility] 100 [facility] [id number] 0 Phone: () - 03/17 CMP Calci um mg/dL 8.7 10.4 9.8 FINAL Oziel angelo [place] [address] [id number] 0 Phone: () - 03/17 CMP Chlor vipin mmol/L 96.0 114.0 109 FINAL Oziel angelo [place] [address] [id number] 0 Phone: () - 03/17 CMP CO2 [...] 96 hour stability window. FINAL [facility]iel angelo [place] [address] [id number] 0 Phone: () - 03/17 CMP Creat inine mg/dL 0.5 1.2 0.90 FINAL [facility] angelo [place] [address] [id number] 0 Phone: () - 03/17 CMP GFR estim ate ml/min /1.73m ^2 63.8 GFR is calculate d using the CKD-EPI equation. FINAL Oziel angelo [place] [address] [id number] 0 Phone: () - 03/17 CMP Gluco se mg/dL 73.0 126.0 87 FINAL [facility] [address] [facility] [address] [id number] 0 Phone: () - 03/17 CMP Potas sium mmol/L 3.5 5.1 4.4 FINAL [facility] angel[facility] [address] [facility] 100 [facility] [id number] 0 Phone: () - 03/17 CMP Sodiu m mmol/L 136.0 145.0 142 FINAL [facility]iel angelo [place] [address] [address] [facility] [address] [id number] 0 Phone: () - 03/17 CMP Bilir ubin, total mg/dL 0.3 1.2 0.5 FINAL Oziel angelo [place] [address] [id number] 0 Phone: () - 03/17 CMP Total prote in g/dL 5.7 8.2 6.7 FINAL Oziel angelo [place] [address] [id number] 0 Phone: () - 03/17 TSH w/ refle x to free T4 TSH uIU/ml 0.32 5.0 3.06 Test performed at [facility] on a Delivered Immunoass ay Analyzer that uses an immunoenz ymometric sandwich assay for analysis. Patient testing should not be performed using multiple methodolo gies due to analytica l variation seen between test methodolo ginaun. FINAL Oziel angelo [place] [address] [id number] 0 Phone: () - 04/14 CMP Album in g/dL 3.2 5.2 4.3 FINAL [facility] [place] [address] [address] [facility] [address] [id number] 0 Phone: () - 04/14 CMP Alkal ine phosp hatas e U/L 46.0 116.0 58 FINAL [facility]iel angelo [place] [address] [address] [facility] [address] [id number] 0 Phone: () - 04/14 CMP ALT/S GPT U/L 7.0 40.0 10 FINAL Oziel angelo [place] [address] [address] [facility] 100 [facility] [id number] 0 Phone: () - 04/14 CMP AST/S GOT U/L 13.0 40.0 21 FINAL Oziel angelo [place] [address] [address] [facility] 100 [facility] [id number] 0 Phone: () - 04/14 CMP BUN mg/dL 9.0 23.0 16 FINAL Oziel angelo [place] [address] [id number] 0 Phone: () - 04/14 CMP Calci um mg/dL 8.7 10.4 10.0 FINAL Oziel angelo [place] [address] [id number] 0 Phone: () - 04/14 CMP Chlor vipin mmol/L 96.0 114.0 109 FINAL Oziel angelo [place] [address] [id number] 0 Phone: () - 04/14 CMP CO2 [...] 96 hour stability window. FINAL Oziel angelo [place] [address] [id number] 0 Phone: () - 04/14 CMP Creat inine mg/dL 0.5 1.2 0.88 FINAL Oziel angelo [place] [address] [id number] 0 Phone: () - 04/14 CMP GFR estim ate ml/min /1.73m ^2 65.6 GFR is calculate d using the CKD-EPI equation. FINAL [facility]iel angelo [place] [address] [id number] 0 Phone: () - 04/14 CMP Gluco se mg/dL 73.0 126.0 92 FINAL Oziel angelo [place] [address] [facility] [id number] 0 Phone: () - 04/14 CMP Potas sium mmol/L 3.5 5.1 4.4 FINAL Oziel angelo [facility], [address] [facility] [id number] 0 Phone: () - 04/14 CMP Sodiu m mmol/L 136.0 145.0 142 FINAL Oziel angelo [facility], [address] [facility] [id number] 0 Phone: () - 04/14 CMP Bilir ubin, total mg/dL 0.3 1.2 0.5 FINAL Oziel angelo [facility], [address] [facility] [address] [facility] [id number] 0 Phone: () - 04/14 CMP Total prote in g/dL 5.7 8.2 6.9 FINAL Oziel angelo [facility], [address] [facility] [address] [facility] [id number] 0 Phone: () - 04/14 CBC w/ auto diff WBC K/uL 3.0 8.9 5.0 FINAL [facility] - [place], [address] [facility] [id number] 0 Phone: () - 04/14 CBC w/ auto diff HGB g/dL 11.3 15.2 12.4 FINAL [facility] - [place], [address] [facility] [id number] 0 Phone: () - 04/14 CBC w/ auto diff PLT K/uL 113.0 364.0 202 FINAL [facility] - [place], [address] [facility] [place] [id number] 0 Phone: () - 04/14 CBC w/ auto diff Dave # (ANC) K/uL 1.6 6.6 3.4 FINAL [facility] - [place], [address] [facility] [id number] 0 Phone: () - 04/14 CBC w/ auto diff Dave % % 43.0 74.0 67.0 FINAL [facility] - [place], [address] [place] [id number] 0 Phone: () - 04/14 CBC w/ auto diff IG % % 0.0 0.5 0.2 FINAL [facility] - [place], [address] [place] [id number] 0 Phone: () - 04/14 CBC w/ auto diff IG # K/uL 0.0 0.03 0.01 FINAL [facility] - [place], [address] [place] [id number] 0 Phone: () - 04/14 CBC w/ auto diff LY % % 14.0 41.0 22.0 FINAL [facility] - [place], [address] [place] [id number] 0 Phone: () - 04/14 CBC w/ auto diff MO % % 6.0 15.0 8.4 FINAL [facility] - [place], [address] [place] [id number] 0 Phone: () - 04/14 CBC w/ auto diff EO % % 0.0 7.0 2.0 FINAL [facility] - [place], [address] [place] [id number] 0 Phone: () - 04/14 CBC w/ auto diff BA % % 0.0 2.0 0.4 FINAL [facility] - [place], [address] [place] [id number] 0 Phone: () - 04/14 CBC w/ auto diff LY # K/uL 0.4 3.6 1.1 FINAL [facility] - [place], [address] [place] [id number] 0 Phone: () - 04/14 CBC w/ auto diff MO # K/uL 0.2 1.3 0.4 FINAL [facility] - [place], [address] [place] [id number] 0 Phone: () - 04/14 CBC w/ auto diff EO # K/uL 0.0 0.6 0.1 FINAL [facility] - [place], [address] [place] [id number] 0 Phone: () - 04/14 CBC w/ auto diff BA # K/uL 0.0 0.2 0.0 FINAL [facility] - [place], [address] [place] [id number] 0 Phone: () - 04/14 CBC w/ auto diff NRBC % #/100W BC 0.0 0.2 0.0 FINAL [facility] - [place], [address] [place] [id number] 0 Phone: () - 04/14 CBC w/ auto diff RBC M/uL 3.9 5.1 3.58 Low FINAL [facility] - [place], [address] [place] [id number] 0 Phone: () - 04/14 CBC w/ auto diff HCT % 35.0 48.0 36.8 FINAL [facility] - [place], [address] [place] [id number] 0 Phone: () - 04/14 CBC w/ auto diff MCV fL 80.0 104.0 102.8 FINAL [facility] - [place], [address] [place] [id number] 0 Phone: () - 04/14 CBC w/ auto diff MCH pg 26.0 35.0 34.6 FINAL [facility] - [place], [address] [place] [id number] 0 Phone: () - 04/14 CBC w/ auto diff MCHC g/dL 30.0 35.0 33.7 FINAL [facility] - [place], [facility] [address] [facility] [address] [place] [id number] 0 Phone: () - 04/14 CBC w/ auto diff MPV fL 9.5 13.4 9.4 Low FINAL [facility] - [place], [facility] [address] [facility] [address] [place] [id number] 0 Phone: () - 04/14 CBC w/ auto diff RDW % 11.4 16.1 12.10 FINAL [facility] - [place], [address] [place] [address] d [address] [place] [id number] 0 Phone: () - 04/14 TSH w/ refle x to free T4 TSH uIU/ml 0.32 5.0 0.79 Test performed at [facility] on a Delivered Immunoass ay Analyzer that uses an immunoenz ymometric sandwich assay for analysis. Patient testing should not be performed using multiple methodolo ginaun due to analytica l variation seen between test methodolo gies. 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 abrasive sandblaster d 04/30 UA Micro scopi c WBC (ua) 0.0 2.0 21-50 Abnor mal FINAL [facility] - [place], [address] [place] [address] d [address] [place] [id number] 0 Phone: () - 04/30 UA Micro scopi c RBC (ua) 0.0 2.0 3-5 Abnor mal FINAL [facility] - [place], [facility] [address] [facility] [address] [place] [id number] 0 Phone: () - 04/30 UA Micro scopi c Epith elial cells (ua) Moderat e 6-10 Abnor mal FINAL [facility] - [place], [facility] [address] [place] [id number] 0 Phone: () - 04/30 UA Micro scopi c Bacte aniya (ua) Few Abnor mal FINAL [facility] - [place], [address] [place] [id number] 0 Phone: () - 04/30 UA Micro scopi c Mucus (ua) Negativ e FINAL [facility] - [place], [address] [place] [id number] 0 Phone: () - 04/30 UA Micro scopi c Casts , urine None FINAL [facility] - [place], [address] [place] [id number] 0 Phone: () - 04/30 UA Micro scopi c Cryst als (ua) None FINAL [facility] - [place], [address] [place] [id number] 0 Phone: () - 04/30 UA Micro scopi c UA comme nt 1 Micro Positiv e-Cultu re Ordered Microsc opic perform ed on un-spun urine FINAL [facility] - [place], [address] [place] [id number] 0 Phone: () - 04/30 Color (ua) Yellow FINAL [facility] - [place], [address] [place] [id number] 0 Phone: () - 04/30 Appea serena (ua) Cloudy Abnor mal FINAL [facility] - [place], [address] [place] [id number] 0 Phone: () - 04/30 Gluco se (ua), qual Negativ e FINAL [facility] - [place], [address] [place] [id number] 0 Phone: () - 04/30 Bilir ubin (ua) Negativ e FINAL [facility] - [place], [address] [place] [id number] 0 Phone: () - 04/30 Urina lysis , aceto ne or keton e rodriguez s measu remen t Negativ e FINAL [facility] - [place], [address] [place] [id number] 0 Phone: () - 04/30 Speci fic gravi ty (ua) 1.005 1.02 1.020 FINAL [facility] - [place], [address] [place] [id number] 0 Phone: () - 04/30 Blood (ua) 3+-Larg e Abnor mal FINAL [facility] - [place], [address] [place] [id number] 0 Phone: () - 04/30 pH (ua) 5.0 8.0 6.0 FINAL [facility] - [place], [address] [place] [id number] 0 Phone: () - 04/30 Prote in (ua) 1+ Abnor mal FINAL [facility] - [place], [address] [place] [id number] 0 Phone: () - 04/30 Urobi linog en (ua) 0.2 1.0 0.2 FINAL [facility] - [place], [address] [place] [id number] 0 Phone: () - 04/30 Nitri te (ua) Negativ e FINAL [facility] - [place], [address] [place] [id number] 0 Phone: () - 04/30 Leuko cyte peter ase (ua), qual 2+-Mode rate Abnor mal FINAL [facility] - [place], [address] [place] [id number] 0 Phone: () - 04/30 UA comme nt 1 Dipstic k Positiv e-Micro Ordered FINAL [facility] - [place], [address] [place] [id number] 0 Phone: () - 04/30 Urine cultu re panel Final repor t, urine cultu re SEE RESULTS BELOW SOURCE: Urine VoidBacte aniya Identific ation in Isolate by Culture:5 0,000-100 ,000 CFU/mL of multiple organisms , probable contamina ntsTest Performed by:[facility] [address] - [facility] [place], [place] [address]Llnp e : FINAL Oziel Box 05/28 CBC w/ auto diff WBC K/uL 3.0 8.9 6.9 FINAL Oziel angelo [facility] - [place], [address] [place] [id number] 0 Phone: () - 05/28 CBC w/ auto diff HGB g/dL 11.3 15.2 13.0 FINAL [facility] - [place], [address] [place] [id number] 0 Phone: () - 05/28 CBC w/ auto diff PLT K/uL 113.0 364.0 183 FINAL [facility] angel[facility] - [place], [address] [place] [id number] 0 Phone: () - 05/28 CBC w/ auto diff Dave # (ANC) K/uL 1.6 6.6 6.0 FINAL [facility] - [place], [address] [place] [id number] 0 Phone: () - 05/28 CBC w/ auto diff Dave % % 43.0 74.0 86.6 High FINAL [facility] - [place], [address] [place] [id number] 0 Phone: () - 05/28 CBC w/ auto diff IG % % 0.0 0.5 0.4 FINAL [facility] - [place], [address] [place] [id number] 0 Phone: () - 05/28 CBC w/ auto diff IG # K/uL 0.0 0.03 0.03 FINAL [facility] - [place], [address] [place] [id number] 0 Phone: () - 05/28 CBC w/ auto diff LY % % 14.0 41.0 9.1 Low FINAL [facility] - [place], [address] [place] [id number] 0 Phone: () - 05/28 CBC w/ auto diff MO % % 6.0 15.0 3.5 Low FINAL [facility] - [place], [address] [place] [id number] 0 Phone: () - 05/28 CBC w/ auto diff EO % % 0.0 7.0 0.1 FINAL [facility] - [place], [address] [place] [id number] 0 Phone: () - 05/28 CBC w/ auto diff BA % % 0.0 2.0 0.3 FINAL [facility] - [place], [address] [place] [id number] 0 Phone: () - 05/28 CBC w/ auto diff LY # K/uL 0.4 3.6 0.6 FINAL [facility] - [place], [address] [place] [id number] 0 Phone: () - 05/28 CBC w/ auto diff MO # K/uL 0.2 1.3 0.2 FINAL [facility] - [place], [address] [place] [id number] 0 Phone: () - 05/28 CBC w/ auto diff EO # K/uL 0.0 0.6 0.0 FINAL [facility] angel[facility] - [place], [address] [place] [id number] 0 Phone: () - 05/28 CBC w/ auto diff BA # K/uL 0.0 0.2 0.0 FINAL [facility] angel[facility] - [place], [address] [place] [id number] 0 Phone: () - 05/28 CBC w/ auto diff NRBC % #/100W BC 0.0 0.2 0.0 FINAL [facility] angel[facility] - [place], [address] [place] [id number] 0 Phone: () - 05/28 CBC w/ auto diff RBC M/uL 3.9 5.1 3.83 Low FINAL [facility] - [place], [address] [place] [id number] 0 Phone: () - 05/28 CBC w/ auto diff HCT % 35.0 48.0 38.6 FINAL [facility] - [place], [address] [place] [id number] 0 Phone: () - 05/28 CBC w/ auto diff MCV fL 80.0 104.0 100.8 FINAL [facility] angel[facility] - [place], [address] [place] [id number] 0 Phone: () - 05/28 CBC w/ auto diff MCH pg 26.0 35.0 33.9 FINAL [facility] angel[facility] - [place], [address] [place] [id number] 0 Phone: () - 05/28 CBC w/ auto diff MCHC g/dL 30.0 35.0 33.7 FINAL [facility] - [place], [address] [place] [id number] 0 Phone: () - 05/28 CBC w/ auto diff MPV fL 9.5 13.4 9.0 Low FINAL [facility] [address] [facility] [address] [facility] [place] [id number] 0 Phone: () - 05/28 CBC w/ auto diff RDW % 11.4 16.1 12.10 FINAL [facility] [address] [facility] [address] [facility] [id number] 0 Phone: () - 05/28 CMP Alkal ine phosp hatas e U/L 46.0 116.0 45 Low FINAL Oizel angelo [place] [address] [place] [id number] 0 Phone: () - 05/28 CMP ALT/S GPT U/L 7.0 40.0 26 FINAL Oziel angelo [place] [address] [place] [address] [id number] 0 Phone: () - 05/28 CMP AST/S GOT U/L 13.0 40.0 24 FINAL Oziel angelo [place] [address] [address] [facility] [address] [id number] 0 Phone: () - 05/28 CMP BUN mg/dL 9.0 23.0 18 FINAL Oziel angelo [place] [address] [address] [facility] [address] [id number] 0 Phone: () - 05/28 CMP Calci um mg/dL 8.7 10.4 9.8 FINAL Oziel angelo [place] [address] [address] [facility] [address] [id number] 0 Phone: () - 05/28 CMP Chlor vipin mmol/L 96.0 114.0 108 FINAL Oziel angelo [place] [address] [address] [facility] [address] [id number] 0 Phone: () - 05/28 CMP CO2 [...] 96 hour stability window. FINAL Oziel angelo [place] [address] [id number] 0 Phone: () - 05/28 CMP Creat inine mg/dL 0.5 1.2 0.98 FINAL Oziel angelo [address] [id number] 0 Phone: () - 05/28 CMP GFR estim ate ml/min /1.73m ^2 61.2 GFR is calculate d using the CKD-EPI equation. FINAL Oziel angelo [address] [id number] 0 Phone: () - 05/28 CMP Gluco se mg/dL 73.0 126.0 111 FINAL Oziel angelo [address] [id number] 0 Phone: () - 05/28 CMP Potas sium mmol/L 3.5 5.1 4.5 FINAL Oziel angelo [address] [id number] 0 Phone: () - 05/28 CMP Sodiu m mmol/L 136.0 145.0 144 FINAL Oziel angelo [address] [id number] 0 Phone: () - 05/28 CMP Bilir ubin, total mg/dL 0.3 1.2 0.4 FINAL Oziel angelo [address] [id number] 0 Phone: () - 05/28 CMP Total prote in g/dL 5.7 8.2 6.3 FINAL Oziel angelo [place] [address] [id number] 0 Phone: () - 05/28 CMP Album in g/dL 3.2 5.2 4.2 FINAL Oziel angelo [address] [facility] [id number] 0 Phone: () - 05/28 TSH w/ refle x to free T4 TSH uIU/ml 0.32 5.0 1.08 Test performed at [facility] on a [place] [employer] 2000 Immunoass ay Analyzer that uses an immunoenz ymometric sandwich assay for analysis. Patient testing should not be performed using multiple methodolo ginaun due to analytica l variation seen between test methodolo ginaun. FINAL Oziel angelo [facility] [address] [facility] [address] [facility] [id number] 0 Phone: () - 05/28 Speci men Sourc e Oral FINAL Oziel Box 05/28 HSV 1, PCR Negativ e FINAL Oziel Box 05/28 HSV 2, PCR Negativ e --------- --------- -ADDITION AL INFORMATI ON------- --------- ---This test was developed and its performan ce character isticsdet ermined by [facility] in a manner consisten t with CLIAranderson sanatoriumi rements. This test has not been cleared or approved bythe U.S. Food and Drug Administr ation.Farrah t Performed by:[facility] [place] [id number] Director: Kenneth Alvarenga M.D. Ph.D.; CLIA# [id number] FINAL Oziel Box 05/30 [facility] other lab See attache hughes 07/02 CMP Album in g/dL 3.2 5.2 4.2 FINAL Oziel angelo [place] [address] [address] [facility] [address] [place] [address] [id number] 0 Phone: () - 07/02 CMP Alkal ine phosp hatas e U/L 46.0 116.0 52 FINAL Oziel angelo [facility] [address] [facility] [address] [address] [facility] [id number] 0 Phone: () - 07/02 CMP ALT/S GPT U/L 7.0 40.0 18 FINAL Oziel angelo [facility] [address] [facility] [address] [facility] [id number] 0 Phone: () - 07/02 CMP AST/S GOT U/L 13.0 40.0 22 FINAL Oziel angelo [facility] [address] [id number] 0 Phone: () - 07/02 CMP BUN mg/dL 9.0 23.0 23 FINAL Oziel angelo [place] [address] [id number] 0 Phone: () - 07/02 CMP Calci um mg/dL 8.7 10.4 9.9 FINAL Oziel angelo [place] [address] [address] [facility] [address] [id number] 0 Phone: () - 07/02 CMP Chlor vipin mmol/L 96.0 114.0 110 FINAL Oziel angelo [place] [address] [id number] 0 Phone: () - 07/02 CMP CO2 [...] 96 hour stability window. FINAL Oziel angelo [place] [address] [id number] 0 Phone: () - 07/02 CMP Creat inine mg/dL 0.5 1.2 1.02 FINAL Oziel angelo [place] [address] [address] [facility] [address] [id number] 0 Phone: () - 07/02 CMP GFR estim ate ml/min /1.73m ^2 58.3 Low GFR is calculate d using the CKD-EPI equation. FINAL Oziel angelo [place] [address] [id number] 0 Phone: () - 07/02 CMP Gluco se mg/dL 73.0 126.0 72 Low FINAL Oziel angelo [place] [address] [address] [facility] 100 [facility] [id number] 0 Phone: () - 07/02 CMP Potas sium mmol/L 3.5 5.1 4.2 FINAL Oziel angelo On[facility], [address] [facility] [id number] 0 Phone: () - 07/02 CMP Sodiu m mmol/L 136.0 145.0 145 FINAL Oziel angelo On[facility], [address] [facility] [id number] 0 Phone: () - 07/02 CMP Bilir ubin, total mg/dL 0.3 1.2 0.5 FINAL Oziel angelo [facility], [address] [facility] [address] [facility] [id number] 0 Phone: () - 07/02 CMP Total prote in g/dL 5.7 8.2 6.5 FINAL Oziel angelo [facility], [address] [facility] [address] [facility] [id number] 0 Phone: () - 07/02 CBC w/ auto diff WBC K/uL 3.0 8.9 5.0 FINAL Oziel angelo [facility] - [place], [address] [facility] [id number] 0 Phone: () - 07/02 CBC w/ auto diff HGB g/dL 11.3 15.2 12.6 FINAL Oziel angelo [facility] - [place], [address] [facility] [id number] 0 Phone: () - 07/02 CBC w/ auto diff PLT K/uL 113.0 364.0 232 FINAL Oziel angelo [facility] - [place], [address] [facility] [place] [id number] 0 Phone: () - 07/02 CBC w/ auto diff Dave # (ANC) K/uL 1.6 6.6 3.2 FINAL Oziel angelo [facility] - [place], [address] [facility] [place] [id number] 0 Phone: () - 07/02 CBC w/ auto diff Dave % % 43.0 74.0 63.5 FINAL Oziel Tilley[facility] a [facility] - [place], [address] [place] [id number] 0 Phone: () - 07/02 CBC w/ auto diff IG % % 0.0 0.5 0.2 FINAL Oziel [facility] - [place], [address] [place] [id number] 0 Phone: () - 07/02 CBC w/ auto diff IG # K/uL 0.0 0.03 0.01 FINAL Oziel Tilley[facility] a [facility] - [place], [address] [place] [id number] 0 Phone: () - 07/02 CBC w/ auto diff LY % % 14.0 41.0 24.1 FINAL Oziel [facility] a [facility] - [place], [address] [place] [id number] 0 Phone: () - 07/02 CBC w/ auto diff MO % % 6.0 15.0 9.4 FINAL Oziel [facility] a [facility] - [place], [address] [place] [id number] 0 Phone: () - 07/02 CBC w/ auto diff EO % % 0.0 7.0 2.2 FINAL Oziel [facility] - [place], [address] [place] [id number] 0 Phone: () - 07/02 CBC w/ auto diff BA % % 0.0 2.0 0.6 FINAL Oziel [facility] - [place], [address] [place] [id number] 0 Phone: () - 07/02 CBC w/ auto diff LY # K/uL 0.4 3.6 1.2 FINAL Oziel [facility] - [place], [address] [place] [id number] 0 Phone: () - 07/02 CBC w/ auto diff MO # K/uL 0.2 1.3 0.5 FINAL Oziel [facility] - [place], [address] [place] [id number] 0 Phone: () - 07/02 CBC w/ auto diff EO # K/uL 0.0 0.6 0.1 FINAL Oziel [facility] - [place], [address] [place] [id number] 0 Phone: () - 07/02 CBC w/ auto diff BA # K/uL 0.0 0.2 0.0 FINAL Oziel [facility] - [place], [address] [place] [id number] 0 Phone: () - 07/02 CBC w/ auto diff NRBC % #/100W BC 0.0 0.2 0.0 FINAL Oziel [facility]ley[facility] - [place], [address] [place] [id number] 0 Phone: () - 07/02 CBC w/ auto diff RBC M/uL 3.9 5.1 3.86 Low FINAL Oziel Tilleyot gi [facility] - [place], [address] [place] [id number] 0 Phone: () - 07/02 CBC w/ auto diff HCT % 35.0 48.0 37.7 FINAL Oziel T[facility]ley[facility] a [facility] - [place], [address] [place] [id number] 0 Phone: () - 07/02 CBC w/ auto diff MCV fL 80.0 104.0 97.7 FINAL Oziel [facility] - [place], [address] [place] [id number] 0 Phone: () - 07/02 CBC w/ auto diff MCH pg 26.0 35.0 32.6 FINAL Oziel Tilley[facility] a [facility] - [place], [address] [place] [id number] 0 Phone: () - 07/02 CBC w/ auto diff MCHC g/dL 30.0 35.0 33.4 FINAL Oziel angelo [facility] - [place], [address] [facility] [address] [facility] [place] [id number] 0 Phone: () - 07/02 CBC w/ auto diff MPV fL 9.5 13.4 9.0 Low FINAL Oziel angelo [facility] - [place], [address] [facility] [address] [facility] [place] [id number] 0 Phone: () - 07/02 CBC w/ auto diff RDW % 11.4 16.1 13.10 FINAL Oziel angelo [facility] - [place], [address] [facility] [address] [facility] [place] [id number] 0 Phone: () - 07/02 T4, free panel T4, free ng/dL 0.7 1.8 0.86 Test performed at [facility] on a [place] Depollution 2000 Immunoass ay Analyzer that uses an immunoenz ymometric sandwich assay for analysis. Patient testing should not be performed using multiple methodolo gies due to analytica l variation seen between test methodolo gies. FINAL Oziel angelo [facility], [address] [facility] [address] [facility] [id number] 0 Phone: () - 07/02 TSH w/ refle x to free T4 TSH uIU/ml 0.32 5.0 6.12 High Test performed at [facility] on a Delivered Immunoass ay Analyzer that uses an immunoenz ymometric sandwich assay for analysis. Patient testing should not be performed using multiple methodolo gies due to analytica l variation seen between test methodolo gies. FINAL Oziel angelo [facility], [address] [facility] [id number] 0 Phone: () - 07/30 CBC w/ auto diff WBC K/uL 3.0 8.9 6.0 FINAL Oziel angelo [facility] - [place], [address] [facility] [address] [facility] [place] [id number] 0 Phone: () - 07/30 CBC w/ auto diff HGB g/dL 11.3 15.2 11.2 Low FINAL Oziel Box [place] [facility] [place], [address] [place] [id number] 0 Phone: () - 07/30 CBC w/ auto diff PLT K/uL 113.0 364.0 220 FINAL Oziel Tilleyot a [facility] - [place], [address] [place] [id number] 0 Phone: () - 07/30 CBC w/ auto diff Dave # (ANC) K/uL 1.6 6.6 5.0 FINAL Oziel [facility]illey[facility] - [place], [address] [place] [id number] 0 Phone: () - 07/30 CBC w/ auto diff Dave % % 43.0 74.0 84.4 High FINAL Oziel [facility] - [place], [address] [place] [id number] 0 Phone: () - 07/30 CBC w/ auto diff IG % % 0.0 0.5 0.2 FINAL Oziel [facility] - [place], [address] [place] [id number] 0 Phone: () - 07/30 CBC w/ auto diff IG # K/uL 0.0 0.03 0.01 FINAL Oziel T[facility] - [place], [address] [place] [id number] 0 Phone: () - 07/30 CBC w/ auto diff LY % % 14.0 41.0 10.4 Low FINAL Oziel [facility] - [place], [address] [place] [id number] 0 Phone: () - 07/30 CBC w/ auto diff MO % % 6.0 15.0 4.4 Low FINAL Oziel [facility] - [place], [address] [place] [id number] 0 Phone: () - 07/30 CBC w/ auto diff EO % % 0.0 7.0 0.3 FINAL Oziel [facility] - [place], [address] [place] [id number] 0 Phone: () - 07/30 CBC w/ auto diff BA % % 0.0 2.0 0.3 FINAL Oziel [facility] - [place], [address] [place] [id number] 0 Phone: () - 07/30 CBC w/ auto diff LY # K/uL 0.4 3.6 0.6 FINAL Oziel [facility] - [place], [address] [place] [id number] 0 Phone: () - 07/30 CBC w/ auto diff MO # K/uL 0.2 1.3 0.3 FINAL Oziel [facility] - [place], [address] [place] [id number] 0 Phone: () - 07/30 CBC w/ auto diff EO # K/uL 0.0 0.6 0.0 FINAL Oziel [facility] - [place], [address] [place] [id number] 0 Phone: () - 07/30 CBC w/ auto diff BA # K/uL 0.0 0.2 0.0 FINAL Oziel [facility]ley[facility] - [place], [address] [place] [id number] 0 Phone: () - 07/30 CBC w/ auto diff NRBC % #/100W BC 0.0 0.2 0.0 FINAL Oziel [facility] - [place], [address] [place] [id number] 0 Phone: () - 07/30 CBC w/ auto diff RBC M/uL 3.9 5.1 3.39 Low FINAL Oziel Tilley[facility] - [place], [address] [place] [id number] 0 Phone: () - 07/30 CBC w/ auto diff HCT % 35.0 48.0 34.0 Low FINAL Oziel angelo [facility] - [place], [address] [place] [id number] 0 Phone: () - 07/30 CBC w/ auto diff MCV fL 80.0 104.0 100.3 FINAL Oziel angelo [facility] - [place], [address] [place] [id number] 0 Phone: () - 07/30 CBC w/ auto diff MCH pg 26.0 35.0 33.0 FINAL Oziel angelo [facility] - [place], [address] [place] [id number] 0 Phone: () - 07/30 CBC w/ auto diff MCHC g/dL 30.0 35.0 32.9 FINAL Oziel angelo [facility] - [place], [address] [place] [id number] 0 Phone: () - 07/30 CBC w/ auto diff MPV fL 9.5 13.4 9.0 Low FINAL Oziel angelo [facility] - [place], [address] [place] [id number] 0 Phone: () - 07/30 CBC w/ auto diff RDW % 11.4 16.1 14.60 FINAL Oziel angelo [facility] - [place], [address] [place] [id number] 0 Phone: () - 07/30 TSH w/ refle x to free T4 TSH uIU/ml 0.32 5.0 4.12 Test performed at [facility] on a [place] [employer]oll[employer] 2000 Immunoass ay Analyzer that uses an immunoenz ymometric sandwich assay for analysis. Patient testing should not be performed using multiple methodolo ginaun due to analytica l variation seen between test methodolo ginaun. FINAL Oziel angelo [facility] - [place], [address] [place] [id number] 0 Phone: () - 07/30 CMP Album in g/dL 3.2 5.2 4.3 FINAL Oziel angelo [facility], [address] [facility] [id number] 0 Phone: () - 07/30 CMP Alkal ine phosp hatas e U/L 46.0 116.0 66 FINAL Oziel angelo [facility], [address] [facility] 100 [facility] [id number] 0 Phone: () - 07/30 CMP ALT/S GPT U/L 7.0 40.0 15 FINAL Oziel angelo [facility] [address] [facility] 100 [facility] [id number] 0 Phone: () - 07/30 CMP AST/S GOT U/L 13.0 40.0 22 FINAL Oziel angelo [facility] [address] [facility] 100 [facility] [id number] 0 Phone: () - 07/30 CMP BUN mg/dL 9.0 23.0 18 FINAL Oziel angelo [place] [address] [address] [facility] 100 [facility] [id number] 0 Phone: () - 07/30 CMP Calci um mg/dL 8.7 10.4 9.7 FINAL Oziel angelo [place] [address] [address] [facility] [address] [id number] 0 Phone: () - 07/30 CMP Chlor vipin mmol/L 96.0 114.0 110 FINAL Oziel angelo [facility] [address] [facility] [address] [id number] 0 Phone: () - 07/30 CMP CO2 [...] 96 hour stability window. FINAL Oziel angelo [facility], [address] [facility] [id number] 0 Phone: () - 07/30 CMP Creat inine mg/dL 0.5 1.2 0.94 FINAL Oziel angelo [facility] [address] [id number] 0 Phone: () - 07/30 CMP GFR estim ate ml/min /1.73m ^2 64.3 GFR is calculate d using the CKD-EPI equation. FINAL Oziel angelo [place] [address] [id number] 0 Phone: () - 07/30 CMP Gluco se mg/dL 73.0 126.0 108 FINAL Oziel angelo [facility] [address] [id number] 0 Phone: () - 07/30 CMP Potas sium mmol/L 3.5 5.1 4.6 FINAL Oziel angelo [facility] [address] [id number] 0 Phone: () - 07/30 CMP Sodiu m mmol/L 136.0 145.0 143 FINAL Oziel angelo [place] [address] [id number] 0 Phone: () - 07/30 CMP Bilir ubin, total mg/dL 0.3 1.2 0.3 FINAL Oziel angelo [place] [address] [id number] 0 Phone: () - 07/30 CMP Total prote in g/dL 5.7 8.2 6.4 FINAL Oziel angelo [place] [address] [id number] 0 Phone: () - 07/30 Hepat itis C antib taylor panel HCV Ab, S Negativ e Signal-to -cutoff ratio is <1.00.Farrah t Performed by:[facility] [place] [address] [id number] Director: Kenneth Alvarenga M.D. Ph.D.; CLIA# [id number] FINAL Oziel Box 08/27 TSH w/ refle x to free T4 TSH uIU/ml 0.32 5.0 6.32 High Test performed at [facility] on a Delivered Immunoass ay Analyzer that uses an immunoenz ymometric sandwich assay for analysis. Patient testing should not be performed using multiple kathi amador due to analytica l variation seen between test methodharley amador. FINAL Oziel angelo [facility] - [place], [address] [place] [id number] 0 Phone: () - 08/27 CBC w/ auto diff WBC K/uL 3.0 8.9 4.4 FINAL Oziel angelo [facility] - [place], [address] [place] [id number] 0 Phone: () - 08/27 CBC w/ auto diff HGB g/dL 11.3 15.2 10.5 Low FINAL Oziel angelo [facility] - [place], [address] [place] [id number] 0 Phone: () - 08/27 CBC w/ auto diff PLT K/uL 113.0 364.0 226 FINAL Oziel angelo [facility] - [place], [address] [place] [id number] 0 Phone: () - 08/27 CBC w/ auto diff Dave # (ANC) K/uL 1.6 6.6 2.5 FINAL Oziel angelo [facility] - [place], [address] [place] [id number] 0 Phone: () - 08/27 CBC w/ auto diff Dave % % 43.0 74.0 56.5 FINAL Oziel angelo [facility] - [place], [address] [place] [id number] 0 Phone: () - 08/27 CBC w/ auto diff IG % % 0.0 0.5 0.2 FINAL Oziel angelo [facility] - [place], [address] [place] [id number] 0 Phone: () - 08/27 CBC w/ auto diff IG # K/uL 0.0 0.03 0.01 FINAL Oziel angelo [facility] - [place], [address] [place] [id number] 0 Phone: () - 08/27 CBC w/ auto diff LY % % 14.0 41.0 29.6 FINAL Oziel angelo [facility] - [place], [address] [place] [id number] 0 Phone: () - 08/27 CBC w/ auto diff MO % % 6.0 15.0 9.3 FINAL Oziel angelo [facility] - [place], [address] [place] [id number] 0 Phone: () - 08/27 CBC w/ auto diff EO % % 0.0 7.0 3.9 FINAL Oziel angelo [facility] - [place], [address] [place] [id number] 0 Phone: () - 08/27 CBC w/ auto diff BA % % 0.0 2.0 0.5 FINAL Oziel angelo [facility] - [place], [address] [place] [id number] 0 Phone: () - 08/27 CBC w/ auto diff LY # K/uL 0.4 3.6 1.3 FINAL Oziel angelo [facility] - [place], [address] [place] [id number] 0 Phone: () - 08/27 CBC w/ auto diff MO # K/uL 0.2 1.3 0.4 FINAL Oziel angelo [facility] - [place], [address] [place] [id number] 0 Phone: () - 08/27 CBC w/ auto diff EO # K/uL 0.0 0.6 0.2 FINAL Oziel angelo [facility] - [place], [address] [place] [id number] 0 Phone: () - 08/27 CBC w/ auto diff BA # K/uL 0.0 0.2 0.0 FINAL Oziel [facility] - [place], [address] [place] [id number] 0 Phone: () - 08/27 CBC w/ auto diff NRBC % #/100W BC 0.0 0.2 0.0 FINAL Oziel [facility] - [place], [address] [place] [id number] 0 Phone: () - 08/27 CBC w/ auto diff RBC M/uL 3.9 5.1 3.17 Low FINAL Oziel [facility] - [place], [address] [place] [id number] 0 Phone: () - 08/27 CBC w/ auto diff HCT % 35.0 48.0 32.0 Low FINAL Oziel [facility] - [place], [address] [place] [id number] 0 Phone: () - 08/27 CBC w/ auto diff MCV fL 80.0 104.0 100.9 FINAL Oziel [facility] - [place], [address] [place] [id number] 0 Phone: () - 08/27 CBC w/ auto diff MCH pg 26.0 35.0 33.1 FINAL Oziel [facility] - [place], [address] [place] [id number] 0 Phone: () - 08/27 CBC w/ auto diff MCHC g/dL 30.0 35.0 32.8 FINAL Oziel [facility] - [place], [address] [place] [id number] 0 Phone: () - 08/27 CBC w/ auto diff MPV fL 9.5 13.4 9.1 Low FINAL Oziel [facility] - [place], [address] [place] [id number] 0 Phone: () - 08/27 CBC w/ auto diff RDW % 11.4 16.1 13.80 FINAL Oziel [facility] - [place], [address] [facility] [place] [id number] 0 Phone: () - 08/27 CMP Album in g/dL 3.2 5.2 4.0 FINAL Oziel angelo [facility], [address] [place] [address] [id number] 0 Phone: () - 08/27 CMP Alkal ine phosp hatas e U/L 46.0 116.0 71 FINAL Oziel angelo [facility] [address] [place] [address] [id number] 0 Phone: () - 08/27 CMP ALT/S GPT U/L 7.0 40.0 11 FINAL Oziel angelo [place] [address] [address] [facility] [address] [id number] 0 Phone: () - 08/27 CMP AST/S GOT U/L 13.0 40.0 18 FINAL Oziel angelo [place] [address] [address] [facility] [address] [id number] 0 Phone: () - 08/27 CMP BUN mg/dL 9.0 23.0 16 FINAL Oziel angelo [facility] [address] [facility] [address] [id number] 0 Phone: () - 08/27 CMP Calci um mg/dL 8.7 10.4 9.5 FINAL Oziel angelo [facility] [address] [facility] [address] [id number] 0 Phone: () - 08/27 CMP Chlor vipin mmol/L 96.0 114.0 110 FINAL Oziel angelo [facility], [address] [facility] [address] [id number] 0 Phone: () - 08/27 CMP CO2 [...] 96 hour stability window. FINAL Oziel angelo [facility] [id number] 0 Phone: () - 08/27 CMP Creat inine mg/dL 0.5 1.2 0.84 FINAL Oziel angelo [address] [id number] 0 Phone: () - 08/27 CMP GFR estim ate ml/min /1.73m ^2 73.5 GFR is calculate d using the CKD-EPI equation. FINAL Oziel angelo [address] [id number] 0 Phone: () - 08/27 CMP Gluco se mg/dL 73.0 126.0 84 FINAL Oziel angelo [address] [id number] 0 Phone: () - 08/27 CMP Potas sium mmol/L 3.5 5.1 4.4 FINAL Oziel angelo [address] [id number] 0 Phone: () - 08/27 CMP Sodiu m mmol/L 136.0 145.0 142 FINAL Oziel angelo [address] [id number] 0 Phone: () - 08/27 CMP Bilir ubin, total mg/dL 0.3 1.2 0.3 FINAL Oziel angelo [address] [id number] 0 Phone: () - 08/27 CMP Total prote in g/dL 5.7 8.2 6.1 FINAL Oziel angelo [address] [id number] 0 Phone: () - 08/27 T4, free panel T4, free ng/dL 0.7 1.8 0.69 Low Test performed at [facility] on a Delivered Immunoass ay Analyzer that uses an immunoenz ymometric sandwich assay for analysis. Patient testing should not be performed using multiple methodharley amador due to analytica l variation seen between test methodharley amador. FINAL Oziel angelo [place] [address] [place] [id number] 0 Phone: () - 09/26 TSH w/ refle x to free T4 TSH uIU/ml 0.32 5.0 1.33 Test performed at [facility] on a [place] Depollution 2000 Immunoass ay Analyzer that uses an immunoenz ymometric sandwich assay for analysis. Patient testing should not be performed using multiple methodolo gies due to analytica l variation seen between test methodolo gies. FINAL Oziel angelo [address] [id number] 0 Phone: () - 09/26 CMP Album in g/dL 3.2 5.2 4.3 FINAL Oziel Tolbert [address] [id number] 0 Phone: () - 09/26 CMP Alkal ine phosp hatas e U/L 46.0 116.0 65 FINAL Oziel angelo [address] [id number] 0 Phone: () - 09/26 CMP ALT/S GPT U/L 7.0 40.0 8 FINAL Oziel angelo [place] [address] [id number] 0 Phone: () - 09/26 CMP AST/S GOT U/L 13.0 40.0 17 FINAL Oziel angelo [place] [address] [id number] 0 Phone: () - 09/26 CMP BUN mg/dL 9.0 23.0 21 FINAL Oziel angelo [place] [address] [address] [facility] [address] [id number] 0 Phone: () - 09/26 CMP Calci um mg/dL 8.7 10.4 9.2 FINAL Oziel angelo [place] [address] [id number] 0 Phone: () - 09/26 CMP Chlor vipin mmol/L 96.0 114.0 111 FINAL Oziel angelo [place] [address] [address] [facility] [address] [id number] 0 Phone: () - 09/26 CMP CO2 [...] 96 hour stability window. FINAL Oziel angelo [facility], [address] [id number] 0 Phone: () - 09/26 CMP Creat inine mg/dL 0.5 1.2 0.79 FINAL Oziel angelo [place] [address] [id number] 0 Phone: () - 09/26 CMP GFR estim ate ml/min /1.73m ^2 79.1 GFR is calculate d using the CKD-EPI equation. FINAL Oziel angelo [place] [address] [id number] 0 Phone: () - 09/26 CMP Gluco se mg/dL 73.0 126.0 83 FINAL Oziel angelo [place] [address] [id number] 0 Phone: () - 09/26 CMP Potas sium mmol/L 3.5 5.1 4.4 FINAL Oziel angelo [place] [address] [id number] 0 Phone: () - 09/26 CMP Sodiu m mmol/L 136.0 145.0 143 FINAL Oziel angelo [facility] [address] [facility] [address] [id number] 0 Phone: () - 09/26 CMP Bilir ubin, total mg/dL 0.3 1.2 0.3 FINAL Oziel angelo [facility] [address] [id number] 0 Phone: () - 09/26 CMP Total prote in g/dL 5.7 8.2 6.3 FINAL Oziel angelo [facility] [place], [address] [place] [id number] 0 Phone: () - 09/26 CBC w/ auto diff WBC K/uL 3.0 8.9 4.1 FINAL Oziel angelo [facility] - [place], [address] [place] [id number] 0 Phone: () - 09/26 CBC w/ auto diff HGB g/dL 11.3 15.2 11.3 FINAL Oziel angelo [facility] - [place], [address] [place] [id number] 0 Phone: () - 09/26 CBC w/ auto diff PLT K/uL 113.0 364.0 210 FINAL [facility] [place], [address] [place] [id number] 0 Phone: () - 09/26 CBC w/ auto diff Dave # (ANC) K/uL 1.6 6.6 2.4 FINAL [facility] [place], [address] [place] [id number] 0 Phone: () - 09/26 CBC w/ auto diff Dave % % 43.0 74.0 58.2 FINAL [facility] [place], [address] [place] [id number] 0 Phone: () - 09/26 CBC w/ auto diff IG % % 0.0 0.5 0.2 FINAL [facility] [place], [address] [place] [id number] 0 Phone: () - 09/26 CBC w/ auto diff IG # K/uL 0.0 0.03 0.01 FINAL [facility] [place], [address] [place] [id number] 0 Phone: () - 09/26 CBC w/ auto diff LY % % 14.0 41.0 27.0 FINAL [facility] Tolbert [facility] - [place], [address] [place] [id number] 0 Phone: () - 09/26 CBC w/ auto diff MO % % 6.0 15.0 10.5 FINAL [facility] - [place], [address] [place] [id number] 0 Phone: () - 09/26 CBC w/ auto diff EO % % 0.0 7.0 3.6 FINAL [facility] - [place], [address] [place] [id number] 0 Phone: () - 09/26 CBC w/ auto diff BA % % 0.0 2.0 0.5 FINAL [facility] - [place], [address] [place] [id number] 0 Phone: () - 09/26 CBC w/ auto diff LY # K/uL 0.4 3.6 1.1 FINAL [facility] [place], [address] [place] [id number] 0 Phone: () - 09/26 CBC w/ auto diff MO # K/uL 0.2 1.3 0.4 FINAL [facility] - [place], [address] [place] [id number] 0 Phone: () - 09/26 CBC w/ auto diff EO # K/uL 0.0 0.6 0.2 FINAL [facility] - [place], [address] [place] [id number] 0 Phone: () - 09/26 CBC w/ auto diff BA # K/uL 0.0 0.2 0.0 FINAL [facility] [place], [address] [place] [id number] 0 Phone: () - 09/26 CBC w/ auto diff NRBC % #/100W BC 0.0 0.2 0.0 FINAL [facility] [place] [facility] [place], [address] [place] [id number] 0 Phone: () - 09/26 CBC w/ auto diff RBC M/uL 3.9 5.1 3.38 Low FINAL [facility] Tolbert [facility] - [place], [address] [place] [id number] 0 Phone: () - 09/26 CBC w/ auto diff HCT % 35.0 48.0 34.3 Low FINAL [facility] Tolbert [facility] - [place], [address] [place] [id number] 0 Phone: () - 09/26 CBC w/ auto diff MCV fL 80.0 104.0 101.5 FINAL [facility] [place], [address] [place] [id number] 0 Phone: () - 09/26 CBC w/ auto diff MCH pg 26.0 35.0 33.4 FINAL [facility] [place], [address] [place] [id number] 0 Phone: () - 09/26 CBC w/ auto diff MCHC g/dL 30.0 35.0 32.9 FINAL [facility] [place], [address] [place] [id number] 0 Phone: () - 09/26 CBC w/ auto diff MPV fL 9.5 13.4 8.9 Low FINAL [facility] [place], [address] [place] [id number] 0 Phone: () - 09/26 CBC w/ auto diff RDW % 11.4 16.1 12.60 FINAL [facility] - [place], [address] [place] [id number] 0 Phone: () - 10/24 T4, free panel T4, free ng/dL 0.7 1.8 1.62 Test performed at [facility] on a [place] [employer] 2000 Immunoass ay Analyzer that uses an immunoenz ymometric sandwich assay for analysis. Patient testing should not be performed using multiple kathi amador due to analytica l variation seen between test kathi amador. FINAL [place] [address] [id number] 0 Phone: () - 10/24 CMP Album in g/dL 3.2 5.2 4.3 FINAL [place] [address] [id number] 0 Phone: () - 10/24 CMP Alkal ine phosp hatas e U/L 46.0 116.0 [address] [id number] 0 Phone: () - 10/24 CMP ALT/S GPT U/L 7.0 40.0 12 FINAL [place] [address] [id number] 0 Phone: () - 10/24 CMP AST/S GOT U/L 13.0 40.0 22 FINAL [place] [address] [id number] 0 Phone: () - 10/24 CMP BUN mg/dL 9.0 23.0 16 FINAL [place] [address] [id number] 0 Phone: () - 10/24 CMP Calci um mg/dL 8.7 10.4 9.7 FINAL [place] [address] [id number] 0 Phone: () - 10/24 CMP Chlor vipin mmol/L 96.0 114.0 110 FINAL [place] [address] [id number] 0 Phone: () - 10/24 CMP CO2 [...] 96 hour stability window. FINAL Lia Delgado [place] [address] [id number] 0 Phone: () - 10/24 CMP Creat inine mg/dL 0.5 1.2 0.83 FINAL Lia [address] [id number] 0 Phone: () - 10/24 CMP GFR estim ate ml/min /1.73m ^2 74.5 GFR is calculate d using the CKD-EPI equation. FINAL [address] [id number] 0 Phone: () - 10/24 CMP Gluco se mg/dL 73.0 126.0 [address] [id number] 0 Phone: () - 10/24 CMP Potas sium mmol/L 3.5 5.1 4.[address] [id number] 0 Phone: () - 10/24 CMP Sodiu m mmol/L 136.0 145.0 [address] [id number] 0 Phone: () - 10/24 CMP Bilir ubin, total mg/dL 0.3 1.2 0.[address] [id number] 0 Phone: () - 10/24 CMP Total prote in g/dL 5.7 8.2 6.4 FINAL [place] [address] [id number] 0 Phone: () - 10/24 TSH w/ refle x to free T4 TSH uIU/ml 0.32 5.0 0.05 Low Test performed at [facility] on a [place] [employer] 2000 Immunoass ay Analyzer that uses an immunoenz ymometric sandwich assay for analysis. Patient testing should not be performed using multiple kathi amador due to analytica l variation seen between test kathi amador. FINAL [facility] Tilley [facility] - [place], [address] [place] [id number] 0 Phone: () - 10/24 CBC w/ auto diff WBC K/uL 3.0 8.9 5.5 FINAL Lia Delgado [facility] a [facility] - [place], [address] [place] [id number] 0 Phone: () - 10/24 CBC w/ auto diff HGB g/dL 11.3 15.2 12.0 FINAL Lia Tilley [facility] - [place], [address] [place] [id number] 0 Phone: () - 10/24 CBC w/ auto diff PLT K/uL 113.0 364.0 211 FINAL Lia T[facility]ley [facility] - [place], [address] [place] [id number] 0 Phone: () - 10/24 CBC w/ auto diff Dave # (ANC) K/uL 1.6 6.6 3.4 FINAL [facility] [place], [address] [place] [id number] 0 Phone: () - 10/24 CBC w/ auto diff Dave % % 43.0 74.0 62.4 FINAL Lia Delgado [facility] a [facility] - [place], [address] [place] [id number] 0 Phone: () - 10/24 CBC w/ auto diff IG % % 0.0 0.5 1.1 High FINAL Lia Delgado [facility] a [facility] - [place], [address] [place] [id number] 0 Phone: () - 10/24 CBC w/ auto diff IG # K/uL 0.0 0.03 0.06 High FINAL Lia [facility] - [place], [address] [place] [id number] 0 Phone: () - 10/24 CBC w/ auto diff LY % % 14.0 41.0 22.2 FINAL L[facility] - [place], [address] [place] [id number] 0 Phone: () - 10/24 CBC w/ auto diff MO % % 6.0 15.0 10.1 FINAL L[facility] - [place], [address] [place] [id number] 0 Phone: () - 10/24 CBC w/ auto diff EO % % 0.0 7.0 3.8 FINAL Lia [facility] - [place], [address] [place] [id number] 0 Phone: () - 10/24 CBC w/ auto diff BA % % 0.0 2.0 0.4 FINAL Lia [facility] - [place], [address] [place] [id number] 0 Phone: () - 10/24 CBC w/ auto diff LY # K/uL 0.4 3.6 1.2 FINAL [facility] - [place], [address] [place] [id number] 0 Phone: () - 10/24 CBC w/ auto diff MO # K/uL 0.2 1.3 0.6 FINAL L[facility] - [place], [address] [place] [id number] 0 Phone: () - 10/24 CBC w/ auto diff EO # K/uL 0.0 0.6 0.2 FINAL L[facility] - [place], [address] [place] [id number] 0 Phone: () - 10/24 CBC w/ auto diff BA # K/uL 0.0 0.2 0.0 FINAL L[facility] - [place], [address] [place] [id number] 0 Phone: () - 10/24 CBC w/ auto diff NRBC % #/100W BC 0.0 0.2 0.0 FINAL Lia Tilleyot gi [facility] - [place], [address] [place] [id number] 0 Phone: () - 10/24 CBC w/ auto diff RBC M/uL 3.9 5.1 3.62 Low FINAL Lia Tolbert a [facility] - [place], [address] [facility] [address] [place] [id number] 0 Phone: () - 10/24 CBC w/ auto diff HCT % 35.0 48.0 35.7 FINAL [facility] - [place], [address] [facility] [address] [place] [id number] 0 Phone: () - 10/24 CBC w/ auto diff MCV fL 80.0 104.0 98.6 FINAL [facility] - [place], [address] [facility] [address] [place] [id number] 0 Phone: () - 10/24 CBC w/ auto diff MCH pg 26.0 35.0 33.1 FINAL Lia Tolbert a [facility] - [place], [address] [place] [id number] 0 Phone: () - 10/24 CBC w/ auto diff MCHC g/dL 30.0 35.0 33.6 FINAL Lia [facility] - [place], [address] [place] [id number] 0 Phone: () - 10/24 CBC w/ auto diff MPV fL 9.5 13.4 9.1 Low FINAL Lia [facility] - [place], [address] [place] [id number] 0 Phone: () - 10/24 CBC w/ auto diff RDW % 11.4 16.1 12.20 FINAL [facility] - [place], [address] [place] [id number] 0 Phone: () - 11/21 TSH w/ refle x to free T4 TSH uIU/ml 0.32 5.0 0.16 Low Test performed at [facility] on a Delivered Immunoass ay Analyzer that uses an immunoenz ymometric sandwich assay for analysis. Patient testing should not be performed using multiple methodolo marjorie due to analytica l variation seen between test methodharley amador. FINAL [facility] - [place], [address] [place] [id number] 0 Phone: () - 11/21 CBC w/ auto diff WBC K/uL 3.0 8.9 4.1 FINAL [facility] - [place], [address] [facility] [address] [place] [id number] 0 Phone: () - 11/21 CBC w/ auto diff HGB g/dL 11.3 15.2 11.8 FINAL [facility] - [place], [address] [facility] [address] [place] [id number] 0 Phone: () - 11/21 CBC w/ auto diff PLT K/uL 113.0 364.0 223 FINAL [facility] - [place], [address] [address] [place] [id number] 0 Phone: () - 11/21 CBC w/ auto diff Dave # (ANC) K/uL 1.6 6.6 2.3 FINAL [facility] - [place], [address] [place] [id number] 0 Phone: () - 11/21 CBC w/ auto diff Dave % % 43.0 74.0 56.3 FINAL [facility] - [place], [address] [place] [id number] 0 Phone: () - 11/21 CBC w/ auto diff IG % % 0.0 0.5 0.2 FINAL [facility] - [place], [address] [facility] [address] [place] [id number] 0 Phone: () - 11/21 CBC w/ auto diff IG # K/uL 0.0 0.03 0.01 FINAL [facility] - [place], [address] [address] [place] [id number] 0 Phone: () - 11/21 CBC w/ auto diff LY % % 14.0 41.0 29.0 FINAL [facility] - [place], [address] [facility] [address] [place] [id number] 0 Phone: () - 11/21 CBC w/ auto diff MO % % 6.0 15.0 10.4 FINAL [facility] - [place], [address] [facility] [address] [place] [id number] 0 Phone: () - 11/21 CBC w/ auto diff EO % % 0.0 7.0 3.9 FINAL [facility] - [place], [address] [facility] [address] [place] [id number] 0 Phone: () - 11/21 CBC w/ auto diff BA % % 0.0 2.0 0.2 FINAL [facility] - [place], [address] [facility] [address] [place] [id number] 0 Phone: () - 11/21 CBC w/ auto diff LY # K/uL 0.4 3.6 1.2 FINAL Lia Tolbert a [facility] - [place], [address] [address] [place] [id number] 0 Phone: () - 11/21 CBC w/ auto diff MO # K/uL 0.2 1.3 0.4 FINAL Lia Tolbert a [facility] - [place], [address] [place] [id number] 0 Phone: () - 11/21 CBC w/ auto diff EO # K/uL 0.0 0.6 0.2 FINAL Lia Tolbert [facility] - [place], [address] [place] [id number] 0 Phone: () - 11/21 CBC w/ auto diff BA # K/uL 0.0 0.2 0.0 FINAL Lia Tolbert a [facility] - [place], [address] [place] [id number] 0 Phone: () - 11/21 CBC w/ auto diff NRBC % #/100W BC 0.0 0.2 0.0 FINAL Lia Tolbert [facility] - [place], [address] [place] [id number] 0 Phone: () - 11/21 CBC w/ auto diff RBC M/uL 3.9 5.1 3.69 Low FINAL Lia Tolbert a [facility] - [place], [address] [place] [id number] 0 Phone: () - 11/21 CBC w/ auto diff HCT % 35.0 48.0 35.6 FINAL Lia Tolbert a [facility] - [place], [address] [place] [id number] 0 Phone: () - 11/21 CBC w/ auto diff MCV fL 80.0 104.0 96.5 FINAL Lia Tolbert a [facility] - [place], [address] [place] [id number] 0 Phone: () - 11/21 CBC w/ auto diff MCH pg 26.0 35.0 32.0 FINAL Lia Tolbert a [facility] - [place], [address] [place] [id number] 0 Phone: () - 11/21 CBC w/ auto diff MCHC g/dL 30.0 35.0 33.1 FINAL Lia angel[facility] - [place], [address] [facility] [address] [facility] [facility] [place] [id number] 0 Phone: () - 11/21 CBC w/ auto diff MPV fL 9.5 13.4 9.0 Low FINAL Lia angel[facility] - [place], [address] [facility] [address] [facility] [place] [id number] 0 Phone: () - 11/21 CBC w/ auto diff RDW % 11.4 16.1 12.40 FINAL [facility] - [place], [address] [facility] [address] [facility] [place] [id number] 0 Phone: () - 11/21 T4, free panel T4, free ng/dL 0.7 1.8 1.13 Test performed at [facility] on a Delivered Immunoass ay Analyzer that uses an immunoenz ymometric sandwich assay for analysis. Patient testing should not be performed using multiple methodharley amador due to analytica l variation seen between test methodharley amador. FINAL [facility] [address] [facility] [place] [id number] 0 Phone: () - 11/21 CMP Album in g/dL 3.2 5.2 4.1 FINAL [facility], [address] [place] [address] [place] [id number] 0 Phone: () - 11/21 CMP Alkal ine phosp hatas e U/L 46.0 116.0 52 FINAL Lia [facility], [facility] [address] [place] [id number] 0 Phone: () - 11/21 CMP ALT/S GPT U/L 7.0 40.0 17 FINAL [facility] [address] [address] [place] [id number] 0 Phone: () - 11/21 CMP AST/S GOT U/L 13.0 40.0 24 FINAL [facility], [address] [place] [id number] 0 Phone: () - 11/21 CMP BUN mg/dL 9.0 23.0 14 FINAL Lia [facility] [address] [facility] [facility] [address] [facility] [id number] 0 Phone: () - 11/21 CMP Calci um mg/dL 8.7 10.4 9.3 FINAL Lia [facility] [address] [facility] 100 [facility] [id number] 0 Phone: () - 11/21 CMP Chlor vipin mmol/L 96.0 114.0 111 [place] [address] [address] [facility] [facility] 100 [facility] [id number] 0 Phone: () - 11/21 CMP CO2 [...] of the 96 hour stability window. FINAL [place] [address] [id number] 0 Phone: () - 11/21 CMP Creat inine mg/dL 0.5 1.2 0.79 [place] [address] [id number] 0 Phone: () - 11/21 CMP GFR estim ate ml/min /1.73m ^2 79.1 GFR is calculate d using the CKD-EPI equation. FINAL [facility], [facility] [address] [facility] [address] [id number] 0 Phone: () - 11/21 CMP Gluco se mg/dL 73.0 126.0 86 [place] [address] [address] [facility] [address] [id number] 0 Phone: () - 11/21 CMP Potas sium mmol/L 3.5 5.1 4.5 [place] [address] [address] [facility] [address] [id number] 0 Phone: () - 11/21 CMP Sodiu m mmol/L 136.0 145.0 144 FINAL Lia Tilley gi Oncology [facility], [address] [facility] [id number] 0 Phone: () - 11/21 CMP Bilir ubin, total mg/dL 0.3 1.2 0.3 FINAL Lia Tilley gi Oncology [facility], [address] [facility] [id number] 0 Phone: () - 11/21 CMP Total prote in g/dL 5.7 8.2 6.2 FINAL Lia Tilley gi [facility], [address] [facility] [id number] 0 Phone: () - 12/19 CBC w/ auto diff WBC K/uL 3.0 8.9 4.9 FINAL [facility] - [place], [address] [facility] [id number] 0 Phone: () - 12/19 CBC w/ auto diff HGB g/dL 11.3 15.2 11.8 FINAL Oziel Tilleyot a [facility] - [place], [address] [place] [id number] 0 Phone: () - 12/19 CBC w/ auto diff PLT K/uL 113.0 364.0 218 FINAL Oz[facility] angel[facility] - [place], [address] [place] [id number] 0 Phone: () - 12/19 CBC w/ auto diff Dave # (ANC) K/uL 1.6 6.6 2.7 FINAL Oziel T[facility]leyot a [facility] - [place], [address] [place] [id number] 0 Phone: () - 12/19 CBC w/ auto diff Dave % % 43.0 74.0 55.3 FINAL Oziel Tilleyot a [facility] - [place], [address] [place] [id number] 0 Phone: () - 12/19 CBC w/ auto diff IG % % 0.0 0.5 0.2 FINAL Oziel Tilleyot a [facility] - [place], [address] [place] [id number] 0 Phone: () - 12/19 CBC w/ auto diff IG # K/uL 0.0 0.03 0.01 FINAL Oziel T[facility] a [facility] - [place], [address] [place] [id number] 0 Phone: () - 12/19 CBC w/ auto diff LY % % 14.0 41.0 30.6 FINAL Oziel Tilleyot a [facility] - [place], [address] [place] [id number] 0 Phone: () - 12/19 CBC w/ auto diff MO % % 6.0 15.0 9.3 FINAL Oziel Tilleyot a [facility] - [place], [address] [place] [id number] 0 Phone: () - 12/19 CBC w/ auto diff EO % % 0.0 7.0 4.0 FINAL Oziel T[facility] a [facility] - [place], [address] [place] [id number] 0 Phone: () - 12/19 CBC w/ auto diff BA % % 0.0 2.0 0.6 FINAL Oziel Tilleyot a [facility] - [place], [address] [place] [id number] 0 Phone: () - 12/19 CBC w/ auto diff LY # K/uL 0.4 3.6 1.5 FINAL Oziel T[facility] a [facility] - [place], [address] [place] [id number] 0 Phone: () - 12/19 CBC w/ auto diff MO # K/uL 0.2 1.3 0.5 FINAL Oziel T[facility]ley[facility] a [facility] - [place], [address] [place] [id number] 0 Phone: () - 12/19 CBC w/ auto diff EO # K/uL 0.0 0.6 0.2 FINAL Oziel T[facility]ley[facility] a [facility] - [place], [address] [place] [id number] 0 Phone: () - 12/19 CBC w/ auto diff BA # K/uL 0.0 0.2 0.0 FINAL Oziel T[facility]leyot a [facility] - [place], [address] [place] [id number] 0 Phone: () - 12/19 CBC w/ auto diff NRBC % #/100W BC 0.0 0.2 0.0 FINAL Oziel Tilleyot gi [facility] - [place], [address] [place] [id number] 0 Phone: () - 12/19 CBC w/ auto diff RBC M/uL 3.9 5.1 3.68 Low FINAL Oziel Tilleyot gi [facility] - [place], [address] [place] [id number] 0 Phone: () - 12/19 CBC w/ auto diff HCT % 35.0 48.0 35.3 FINAL Oziel angelo [facility] - [place], [address] [place] [id number] 0 Phone: () - 12/19 CBC w/ auto diff MCV fL 80.0 104.0 95.9 FINAL Oziel angelo [facility] - [place], [address] [place] [id number] 0 Phone: () - 12/19 CBC w/ auto diff MCH pg 26.0 35.0 32.1 FINAL Oziel Tilleyot gi [facility] - [place], [address] [place] [id number] 0 Phone: () - 12/19 CBC w/ auto diff MCHC g/dL 30.0 35.0 33.4 FINAL Oziel Tilleyot a [facility] - [place], [address] [place] [id number] 0 Phone: () - 12/19 CBC w/ auto diff MPV fL 9.5 13.4 9.1 Low FINAL [facility], [address] [facility] [address] [facility] [id number] 0 Phone: () - 12/19 CBC w/ auto diff RDW % 11.4 16.1 13.30 FINAL Oziel angelo [facility] - [facility] [place], [address] [facility] [address] [facility] [id number] 0 Phone: () - 12/19 TSH w/ refle x to free T4 TSH uIU/ml 0.32 5.0 2.75 Test performed at [facility] on a Delivered Immunoass ay Analyzer that uses an immunoenz ymometric sandwich assay for analysis. Patient testing should not be performed using multiple methodolo gies due to analytica l variation seen between test methodolo gies. FINAL Oziel angelo [place] [address] [address] [facility] [address] [address] [place] [address] [id number] 0 Phone: () - 12/19 CMP Album in g/dL 3.2 5.2 4.0 FINAL Oziel angelo [place] [address] [address] [facility] [address] [id number] 0 Phone: () - 12/19 CMP Alkal ine phosp hatas e U/L 46.0 116.0 58 FINAL Oziel angelo [place] [address] [address] [facility] [address] [id number] 0 Phone: () - 12/19 CMP ALT/S GPT U/L 7.0 40.0 13 FINAL Oziel angelo [place] [address] [place] [address] [id number] 0 Phone: () - 12/19 CMP AST/S GOT U/L 13.0 40.0 24 FINAL Oziel angelo [place] [address] [place] [address] [id number] 0 Phone: () - 12/19 CMP BUN mg/dL 9.0 23.0 18 FINAL Oziel angelo [place] [address] [place] [address] [id number] 0 Phone: () - 12/19 CMP Calci um mg/dL 8.7 10.4 9.7 FINAL Oziel angelo [place] [address] [id number] 0 Phone: () - 12/19 CMP Chlor vipin mmol/L 96.0 114.0 111 FINAL Oziel angelo [place] [address] [id number] 0 Phone: () - 12/19 CMP CO2 [...] 96 hour stability window. FINAL Oziel angelo [place] [address] [id number] 0 Phone: () - 12/19 CMP Creat inine mg/dL 0.5 1.2 0.82 FINAL Oziel angelo [place] [address] [id number] 0 Phone: () - 12/19 CMP GFR estim ate ml/min /1.73m ^2 75.6 GFR is calculate d using the CKD-EPI equation. FINAL Oziel angelo [place] [address] [id number] 0 Phone: () - 12/19 CMP Gluco se mg/dL 73.0 126.0 81 FINAL Oziel angelo [place] [address] [address] [facility] [address] [id number] 0 Phone: () - 12/19 CMP Potas sium mmol/L 3.5 5.1 4.4 FINAL Oziel angelo [facility] [address] [facility] [id number] 0 Phone: () - 12/19 CMP Sodiu m mmol/L 136.0 145.0 144 FINAL Oziel angelo [place] [address] [id number] 0 Phone: () - 12/19 CMP Bilir ubin, total mg/dL 0.3 1.2 0.4 FINAL Oziel angelo [facility] - [place], [address] [facility] [address] [place] [id number] 0 Phone: () - 12/19 CMP Total prote in g/dL 5.7 8.2 6.3 FINAL Oziel angel[facility] - [place], [address] [place] [id number] 0 Phone: () - 01/12 [facility] other lab See cabinet abrasive sandblaster d 01/16 CBC w/ auto diff WBC K/uL 3.0 8.9 4.4 FINAL Oziel angelo [facility] - [place], [address] [facility] [address] [place] [id number] 0 Phone: () - 01/16 CBC w/ auto diff HGB g/dL 11.3 15.2 11.9 FINAL Oziel angel[facility] - [place], [address] [facility] [address] [place] [id number] Phone: () - 01/16 CBC w/ auto diff PLT K/uL 113.0 364.0 231 FINAL Oziel angel[facility] [place], [address] [address] [place] [id number] 0 Phone: () - 01/16 CBC w/ auto diff Dave # (ANC) K/uL 1.6 6.6 2.4 FINAL [facility] - [place], [address] [place] [id number] 0 Phone: () - 01/16 CBC w/ auto diff Dave % % 43.0 74.0 54.7 FINAL [facility] angel[facility] - [place], [address] [place] [id number] 0 Phone: () - 01/16 CBC w/ auto diff IG % % 0.0 0.5 0.2 FINAL [facility] - [place], [address] [place] [id number] 0 Phone: () - 01/16 CBC w/ auto diff IG # K/uL 0.0 0.03 0.01 FINAL [facility] - [place], [address] [place] [id number] 0 Phone: () - 01/16 CBC w/ auto diff LY % % 14.0 41.0 31.8 FINAL [facility] - [place], [address] [place] [id number] 0 Phone: () - 01/16 CBC w/ auto diff MO % % 6.0 15.0 8.9 FINAL [facility] - [place], [address] [place] [id number] 0 Phone: () - 01/16 CBC w/ auto diff EO % % 0.0 7.0 3.9 FINAL [facility] - [place], [address] [place] [id number] 0 Phone: () - 01/16 CBC w/ auto diff BA % % 0.0 2.0 0.5 FINAL [facility] - [place], [address] [place] [id number] 0 Phone: () - 01/16 CBC w/ auto diff LY # K/uL 0.4 3.6 1.4 FINAL [facility] - [place], [address] [place] [id number] 0 Phone: () - 01/16 CBC w/ auto diff MO # K/uL 0.2 1.3 0.4 FINAL [facility] - [place], [address] [place] [id number] 0 Phone: () - 01/16 CBC w/ auto diff EO # K/uL 0.0 0.6 0.2 FINAL [facility] - [place], [address] [place] [id number] 0 Phone: () - 01/16 CBC w/ auto diff BA # K/uL 0.0 0.2 0.0 FINAL [facility] - [place], [address] [place] [id number] 0 Phone: () - 01/16 CBC w/ auto diff NRBC % #/100W BC 0.0 0.2 0.0 FINAL [facility] - [place], [address] [place] [id number] 0 Phone: () - 01/16 CBC w/ auto diff RBC M/uL 3.9 5.1 3.69 Low FINAL [facility] - [place], [address] [place] [id number] 0 Phone: () - 01/16 CBC w/ auto diff HCT % 35.0 48.0 35.0 FINAL [facility] - [place], [address] [place] [id number] 0 Phone: () - 01/16 CBC w/ auto diff MCV fL 80.0 104.0 94.9 FINAL [facility] - [place], [address] [place] [id number] 0 Phone: () - 01/16 CBC w/ auto diff MCH pg 26.0 35.0 32.2 FINAL [facility] - [place], [address] [place] [id number] 0 Phone: () - 01/16 CBC w/ auto diff MCHC g/dL 30.0 35.0 34.0 FINAL [facility] - [place], [address] [place] [id number] 0 Phone: () - 01/16 CBC w/ auto diff MPV fL 9.5 13.4 8.8 Low FINAL [facility] - [place], [address] [facility] [id number] 0 Phone: () - 01/16 CBC w/ auto diff RDW % 11.4 16.1 13.90 FINAL [facility] angel[facility] [place], [address] [facility] [address] [facility] [id number] 0 Phone: () - 01/16 CMP Album in g/dL 3.2 5.2 4.3 FINAL Oziel angelo [place] [address] [place] [address] [id number] 0 Phone: () - 01/16 CMP Alkal ine phosp hatas e U/L 46.0 116.0 64 FINAL Oziel angelo [place] [address] [facility] [address] [place] [address] [id number] 0 Phone: () - 01/16 CMP ALT/S GPT U/L 7.0 40.0 12 FINAL Oziel angelo [place] [address] [facility] [address] [place] [address] [id number] 0 Phone: () - 01/16 CMP AST/S GOT U/L 13.0 40.0 23 FINAL Oziel angelo [place] [address] [id number] 0 Phone: () - 01/16 CMP BUN mg/dL 9.0 23.0 17 FINAL Oziel angelo [place] [address] [id number] 0 Phone: () - 01/16 CMP Calci um mg/dL 8.7 10.4 9.4 FINAL Oziel angelo [place] [address] [facility] [address] [place] [address] [id number] 0 Phone: () - 01/16 CMP Chlor vipin mmol/L 96.0 114.0 108 FINAL Oziel angelo [place] [address] [address] [facility] [address] [id number] 0 Phone: () - 01/16 CMP CO2 [...] 96 hour stability window. FINAL Oziel angelo [place] [address] [id number] 0 Phone: () - 01/16 CMP Creat inine mg/dL 0.5 1.2 1.07 FINAL Oziel angelo [address] [id number] 0 Phone: () - 01/16 CMP GFR estim ate ml/min /1.73m ^2 54.9 Low GFR is calculate d using the CKD-EPI equation. FINAL Oziel angelo [address] [id number] 0 Phone: () - 01/16 CMP Gluco se mg/dL 73.0 126.0 84 FINAL Oziel angelo [address] [id number] 0 Phone: () - 01/16 CMP Potas sium mmol/L 3.5 5.1 4.4 FINAL Oziel angelo [address] [id number] 0 Phone: () - 01/16 CMP Sodiu m mmol/L 136.0 145.0 141 FINAL Oziel angelo [address] [id number] 0 Phone: () - 01/16 CMP Bilir ubin, total mg/dL 0.3 1.2 0.4 FINAL Oziel angelo [address] [id number] 0 Phone: () - 01/16 CMP Total prote in g/dL 5.7 8.2 6.6 FINAL Oziel angelo [place] [address] [id number] 0 Phone: () - 01/16 TSH w/ [...] gies. FINAL Oziel Tolbert a [facility] - [place] [address] [facility] [address] [place] [address] [id number] 0 Phone: () - 01/16 T4, free panel T4, free ng/dL 0.7 1.8 0.75 Test performed at [facility] on a [employer] 2000 Immunoass ay Analyzer that uses an immunoenz ymometric sandwich assay for analysis. Patient testing should not be performed using multiple methodolo gies due to analytica l variation seen between test methodolo gies. FINAL Oziel angelo [facility] - [facility] [address] [facility] [address] [place] [address] [id number] 0 Phone: () - 02/20 TSH w/ refle x to free T4 TSH uIU/ml 0.32 5.0 Sent to [facility] ce Lab. Hard copy results availab le only. Test performed at [facility] on a [employer] 2000 Immunoass ay Analyzer that uses an immunoenz ymometric sandwich assay for analysis. Patient testing should not be performed using multiple methodolo gies due to analytica l variation seen between test methodolo gies. FINAL [facility] angel[facility] - [place] [address] [address] [facility] [address] [place] [address] [id number] 0 Phone: () - 02/20 T4, free panel T4, free ng/dL 0.7 1.8 1.01 Test Performed by:[facility] [address] - [facility], [place] [address]Mlqz e [phone] FINAL Oziel Box 02/20 TSH uIU/mL 0.35 4.94 8.74 High In Adults, TSH values between 5.00 and 10.00 uIU/ml do notnecess arily indicate the presence of Hypothyro idism.Cor relation with clinical findings such as presence of goiterand /or Thyropero xidase (TPO) Antibody may be helpful. Formore informati on please refer to MAYELA 2004; 291: 228-238.T est Performed by:[facility] [address] - [place] [address]Skva e : FINAL Oziel Box 05/08 CMP Album in g/dL 3.2 5.2 4.0 FINAL Oziel angelo [facility], [address] [facility] [address] [place] [address] [id number] 0 Phone: () - 05/08 CMP Alkal ine phosp hatas e U/L 46.0 116.0 56 FINAL Oziel angelo [facility] [address] [place] [address] [id number] 0 Phone: () - 05/08 CMP ALT/S GPT U/L 7.0 40.0 17 FINAL Oziel angelo [facility] [address] [place] [address] [id number] 0 Phone: () - 05/08 CMP AST/S GOT U/L 13.0 40.0 21 FINAL Oziel angelo [facility], [address] [facility] [id number] 0 Phone: () - 05/08 CMP BUN mg/dL 9.0 23.0 22 FINAL Oziel angelo [facility], [address] [facility] [address] [place] [address] [id number] 0 Phone: () - 05/08 CMP Calci um mg/dL 8.7 10.4 9.3 FINAL Oziel angelo [facility] [address] [facility] [address] [place] [address] [id number] 0 Phone: () - 05/08 CMP Chlor vipin mmol/L 96.0 114.0 112 FINAL Oziel angelo [facility] [address] [place] [address] [id number] 0 Phone: () - 05/08 CMP CO2 [...] 96 hour stability window. FINAL Oziel angelo [place] [address] [address] [facility] [address] [id number] 0 Phone: () - 05/08 CMP Creat inine mg/dL 0.5 1.2 0.86 FINAL Oziel angelo [place] [address] [address] [facility] [address] [id number] 0 Phone: () - 05/08 CMP GFR estim ate ml/min /1.73m ^2 71.2 GFR is calculate d using the CKD-EPI equation. FINAL Oziel angelo [place] [address] [id number] 0 Phone: () - 05/08 CMP Gluco se mg/dL 73.0 126.0 77 FINAL Oziel angelo [place] [address] [id number] 0 Phone: () - 05/08 CMP Potas sium mmol/L 3.5 5.1 3.9 FINAL Oziel angelo [place] [address] [address] [facility] [address] [id number] 0 Phone: () - 05/08 CMP Sodiu m mmol/L 136.0 145.0 148 High FINAL Oziel angelo [facility] [address] [facility] [address] [id number] 0 Phone: () - 05/08 CMP Bilir ubin, total mg/dL 0.3 1.2 0.4 FINAL Oziel angelo [place] [address] [address] [facility] [address] [id number] 0 Phone: () - 05/08 CMP Total prote in g/dL 5.7 8.2 6.1 FINAL Oziel angelo [place] [address] [address] [facility] [address] [id number] 0 Phone: () - 05/08 CBC w/ auto diff WBC K/uL 3.0 8.9 7.3 FINAL Oziel angel[facility], [address] [facility] [id number] 0 Phone: () - 05/08 CBC w/ auto diff HGB g/dL 11.3 15.2 11.0 Low FINAL Oziel Tilley[facility] gi [facility] - [place], [address] [place] [id number] 0 Phone: () - 05/08 CBC w/ auto diff PLT K/uL 113.0 364.0 210 FINAL [facility] - [place], [address] [place] [id number] 0 Phone: () - 05/08 CBC w/ auto diff Dave # (ANC) K/uL 1.6 6.6 3.7 FINAL [facility] angel[facility] - [place], [address] [place] [id number] 0 Phone: () - 05/08 CBC w/ auto diff Dave % % 43.0 74.0 51.1 FINAL [facility] angel[facility] - [place], [address] [place] [id number] 0 Phone: () - 05/08 CBC w/ auto diff IG % % 0.0 0.5 0.3 FINAL [facility] angel[facility] - [place], [address] [place] [id number] 0 Phone: () - 05/08 CBC w/ auto diff IG # K/uL 0.0 0.03 0.02 FINAL Oziel angel[facility] - [place], [address] [place] [id number] 0 Phone: () - 05/08 CBC w/ auto diff LY % % 14.0 41.0 37.9 FINAL Oziel Tilleyot a [facility] - [place], [address] [place] [id number] 0 Phone: () - 05/08 CBC w/ auto diff MO % % 6.0 15.0 9.2 FINAL Oziel Tilley[facility] - [place], [address] [place] [id number] 0 Phone: () - 05/08 CBC w/ auto diff EO % % 0.0 7.0 1.2 FINAL Oz[facility] Tilley[facility] - [place], [address] [place] [id number] 0 Phone: () - 05/08 CBC w/ auto diff BA % % 0.0 2.0 0.3 FINAL [facility]illey[facility] - [place], [address] [place] [id number] 0 Phone: () - 05/08 CBC w/ auto diff LY # K/uL 0.4 3.6 2.8 FINAL Oziel Tilley[facility] - [place], [address] [place] [id number] 0 Phone: () - 05/08 CBC w/ auto diff MO # K/uL 0.2 1.3 0.7 FINAL Oziel Tilley[facility] - [place], [address] [place] [id number] 0 Phone: () - 05/08 CBC w/ auto diff EO # K/uL 0.0 0.6 0.1 FINAL Oziel angel[facility] - [place], [address] [place] [id number] 0 Phone: () - 05/08 CBC w/ auto diff BA # K/uL 0.0 0.2 0.0 FINAL Oz[facility] angel[facility] - [place], [address] [place] [id number] 0 Phone: () - 05/08 CBC w/ auto diff NRBC % #/100W BC 0.0 0.2 0.0 FINAL Oz[facility] angel[facility] - [place], [address] [place] [id number] 0 Phone: () - 05/08 CBC w/ auto diff RBC M/uL 3.9 5.1 3.27 Low FINAL Oziel Tolbert a [facility] - [place], [address] [place] [id number] 0 Phone: () - 05/08 CBC w/ auto diff HCT % 35.0 48.0 32.1 Low FINAL Oz[facility] angel[facility] - [place], [address] [facility] [address] [place] [id number] 0 Phone: () - 05/08 CBC w/ auto diff MCV fL 80.0 104.0 98.2 FINAL Oz[facility] angel[facility] - [place], [address] [facility] [place] [id number] 0 Phone: () - 05/08 CBC w/ auto diff MCH pg 26.0 35.0 33.6 FINAL Oziel angelo [facility] - [place], [address] [facility] [address] [place] [id number] 0 Phone: () - 05/08 CBC w/ auto diff MCHC g/dL 30.0 35.0 34.3 FINAL Oziel angel[facility] - [place], [address] [facility] [address] [place] [id number] 0 Phone: () - 05/08 CBC w/ auto diff MPV fL 9.5 13.4 9.4 Low FINAL Oz[facility] angel[facility] - [place], [address] [facility] [address] [place] [id number] 0 Phone: () - 05/08 CBC w/ auto diff RDW % 11.4 16.1 13.10 FINAL [facility]iel angel[facility] - [place], [address] [place] [address] d [address] [place] [id number] 0 Phone: () - 05/08 TSH w/ refle x to free T4 TSH uIU/ml 0.32 5.0 1.36 Test performed at [facility] on a [employer] Immuno[employer] ay Analyzer that uses an immunoenz ymometric sandwich assay for analysis. Patient testing should not be performed using multiple methodharley amador due to analytica l variation seen between test methodharley amador. FINAL Oziel angelo [facility] - [place], [address] [facility] [id number] 0 Phone: () - 07/23 Misc other lab See cabinet abrasive sandblaster d 07/23 Misc other lab See cabinet abrasive sandblaster d 11/03 CMP Album in g/dL 3.2 5.2 4.1 FINAL Oziel angelo [place] [address] [address] [facility] [address] [facility] [id number] 0 Phone: () - 11/03 CMP Alkal ine phosp hatas e U/L 46.0 116.0 59 FINAL Oziel angelo [place] [address] [address] [facility] 100 [facility] [id number] 0 Phone: () - 11/03 CMP ALT/S GPT U/L 7.0 40.0 <7 FINAL Oziel angelo [place] [address] [address] [facility] [address] [facility] [id number] 0 Phone: () - 11/03 CMP AST/S GOT U/L 13.0 40.0 24 FINAL Oziel angelo [place] [address] [address] [facility] [address] [id number] 0 Phone: () - 11/03 CMP BUN mg/dL 9.0 23.0 16.0 FINAL Oziel angelo [place] [address] [id number] 0 Phone: () - 11/03 CMP Calci um mg/dL 8.7 10.4 9.1 FINAL Oziel angelo [place] [address] [address] [facility] [address] [id number] 0 Phone: () - 11/03 CMP Chlor vipin mmol/L 96.0 114.0 105 FINAL Oziel angelo [place] [address] [id number] 0 Phone: () - 11/03 CMP CO2 [...] 96 hour stability window. FINAL Oziel angelo [facility], [address] [facility] [address] [facility] [id number] 0 Phone: () - 11/03 CMP Creat inine mg/dL 0.5 1.2 0.88 FINAL Oziel angelo [place] [address] [id number] 0 Phone: () - 11/03 CMP GFR estim ate ml/min /1.73m ^2 69.0 GFR is calculate d using the CKD-EPI equation. FINAL Oziel angelo [place] [address] [id number] 0 Phone: () - 11/03 CMP Gluco se mg/dL 73.0 126.0 105 FINAL Oziel angelo [place] [address] [id number] 0 Phone: () - 11/03 CMP Potas sium mmol/L 3.5 5.1 4.4 FINAL Oziel angelo [place] [address] [id number] 0 Phone: () - 11/03 CMP Sodiu m mmol/L 136.0 145.0 139 FINAL Oziel angelo [place] [address] [id number] 0 Phone: () - 11/03 CMP Bilir ubin, total mg/dL 0.3 1.2 0.6 FINAL Oziel angelo [place] [address] [id number] 0 Phone: () - 11/03 CMP Total prote in g/dL 5.7 8.2 6.6 FINAL Oziel angelo [place] [address] [address] [facility] [address] [id number] 0 Phone: () - 11/03 CBC w/ auto diff WBC K/uL 3.0 8.9 4.7 FINAL Oziel angelo [facility], [address] [facility] [id number] 0 Phone: () - 08/22 /2023 CBC w/ auto diff HGB g/dL 11.3 15.2 11.6 FINAL Oziel Tilleyot a [facility] - [place], [address] [place] [id number] 0 Phone: () - 11/03 CBC w/ auto diff PLT K/uL 113.0 364.0 248 FINAL Oziel Tilleyot [facility] - [place], [address] [place] [id number] 0 Phone: () - 11/03 CBC w/ auto diff Dave # (ANC) K/uL 1.6 6.6 2.9 FINAL Oz[facility] Tilley[facility] - [place], [address] [place] [id number] 0 Phone: () - 11/03 CBC w/ auto diff Dave % % 43.0 74.0 60.9 FINAL Oz[facility] - [place], [address] [place] [id number] 0 Phone: () - 11/03 CBC w/ auto diff IG % % 0.0 0.5 0.4 FINAL Oz[facility] T[facility] - [place], [address] [place] [id number] 0 Phone: () - 11/03 CBC w/ auto diff IG # K/uL 0.0 0.03 0.02 FINAL Oziel Tilley[facility] - [place], [address] [place] [id number] 0 Phone: () - 11/03 CBC w/ auto diff LY % % 14.0 41.0 26.8 FINAL Oz[facility]il[facility] - [place], [address] [place] [id number] 0 Phone: () - 11/03 CBC w/ auto diff MO % % 6.0 15.0 8.5 FINAL [facility] - [place], [address] [place] [id number] 0 Phone: () - 11/03 CBC w/ auto diff EO % % 0.0 7.0 3.0 FINAL Oz[facility] T[facility]ley[facility] - [place], [address] [place] [id number] 0 Phone: () - 11/03 CBC w/ auto diff BA % % 0.0 2.0 0.4 FINAL [facility] - [place], [address] [place] [id number] 0 Phone: () - 11/03 CBC w/ auto diff LY # K/uL 0.4 3.6 1.3 FINAL [facility] - [place], [address] [place] [id number] 0 Phone: () - 11/03 CBC w/ auto diff MO # K/uL 0.2 1.3 0.4 FINAL [facility] - [place], [address] [place] [id number] 0 Phone: () - 11/03 CBC w/ auto diff EO # K/uL 0.0 0.6 0.1 FINAL [facility] - [place], [address] [place] [id number] 0 Phone: () - 11/03 CBC w/ auto diff BA # K/uL 0.0 0.2 0.0 FINAL [facility] - [place], [address] [place] [id number] 0 Phone: () - 11/03 CBC w/ auto diff NRBC % #/100W BC 0.0 0.2 0.0 FINAL [facility] - [place], [address] [place] [id number] 0 Phone: () - 11/03 CBC w/ auto diff RBC M/uL 3.9 5.1 3.52 Low FINAL [facility] - [place], [address] [place] [id number] 0 Phone: () - 11/03 CBC w/ auto diff HCT % 35.0 48.0 34.2 Low FINAL Oziel angelo [facility] - [place], [facility] [address] [place] [id number] 0 Phone: () - 11/03 CBC w/ auto diff MCV fL 80.0 104.0 97.2 FINAL Oziel angelo [facility] - [place], [facility] [address] [place] [id number] 0 Phone: () - 11/03 CBC w/ auto diff MCH pg 26.0 35.0 33.0 FINAL [facility] - [place], [facility] [address] [place] [id number] 0 Phone: () - 11/03 CBC w/ auto diff MCHC g/dL 30.0 35.0 33.9 FINAL Oziel angelo [facility] - [place], [facility] [address] [facility] [address] [place] [id number] 0 Phone: () - 11/03 CBC w/ auto diff MPV fL 9.5 13.4 8.7 Low FINAL Oziel angelo [facility] - [place], [facility] [address] [facility] [address] [place] [id number] 0 Phone: () - 11/03 CBC w/ auto diff RDW % 11.4 16.1 14.40 FINAL Oziel angelo [facility] - [place], [facility] [address] [facility] [address] [place] [id number] 0 Phone: () - 02/08 CMP Album in g/dL 3.2 5.2 4.0 FINAL Oziel [facility] - [place], [address] [place] [id number] 0 Phone: () - 02/08 CMP Alkal ine phosp hatas e U/L 46.0 116.0 83 FINAL Oziel T[facility] - [place], [address] [place] [id number] 0 Phone: () - 02/08 CMP ALT/S GPT U/L 7.0 40.0 <7 FINAL Oziel angelo [facility], [address] [facility] 100 [facility] [id number] 0 Phone: () - 02/08 CMP AST/S GOT U/L 13.0 40.0 23 FINAL Oziel angelo [facility] [address] [facility] 100 [facility] [id number] 0 Phone: () - 02/08 CMP BUN mg/dL 9.0 23.0 17.0 FINAL Oziel angelo [place] [address] [id number] 0 Phone: () - 02/08 CMP Calci um mg/dL 8.7 10.4 8.8 FINAL Oziel angelo [place] [address] [id number] 0 Phone: () - 02/08 CMP Chlor vipin mmol/L 96.0 114.0 109 FINAL Oziel angelo [place] [address] [id number] 0 Phone: () - 02/08 CMP CO2 [...] 96 hour stability window. FINAL Oziel angelo [place] [address] [id number] 0 Phone: () - 02/08 CMP Creat inine mg/dL 0.5 1.2 0.86 FINAL Oziel angelo [place] [address] [id number] 0 Phone: () - 02/08 CMP GFR estim ate ml/min /1.73m ^2 70.9 GFR is calculate d using the CKD-EPI equation. FINAL Oziel angelo [place] [address] [id number] 0 Phone: () - 02/08 CMP Gluco se mg/dL 73.0 126.0 84 FINAL Oziel angelo [facility], [address] [facility] [id number] 0 Phone: () - 02/08 CMP Potas sium mmol/L 3.5 5.1 4.5 FINAL Oziel angelo [facility], [address] [facility] [id number] 0 Phone: () - 02/08 CMP Sodiu m mmol/L 136.0 145.0 141 FINAL Oziel angelo [facility] [address] [facility] [id number] 0 Phone: () - 02/08 CMP Bilir ubin, total mg/dL 0.3 1.2 0.3 FINAL Oziel angelo [facility] [address] [facility] [id number] 0 Phone: () - 02/08 CMP Total prote in g/dL 5.7 8.2 6.1 FINAL Oziel angelo [facility], [address] [facility] [id number] 0 Phone: () - 02/08 TSH w/ refle x to free T4 TSH uIU/ml 0.32 5.0 3.61 Test performed at [facility] on a Delivered Immunoass ay Analyzer that uses an immunoenz ymometric sandwich assay for analysis. Patient testing should not be performed using multiple methodharley amador due to analytica l variation seen between test methodharley amador. FINAL Oziel angelo [facility], [address] [facility] [id number] 0 Phone: () - 02/08 CBC w/ auto diff WBC K/uL 3.0 8.9 4.7 FINAL Oziel angelo [facility] - [place], [address] [facility] [address] [place] [id number] 0 Phone: () - 02/08 CBC w/ auto diff HGB g/dL 11.3 15.2 11.0 Low FINAL Oz[facility] angel[facility] - [place], [address] [place] [id number] 0 Phone: () - 02/08 CBC w/ auto diff PLT K/uL 113.0 364.0 194 FINAL [facility] - [place], [address] [place] [id number] 0 Phone: () - 02/08 CBC w/ auto diff Dave # (ANC) K/uL 1.6 6.6 2.7 FINAL [facility] - [place], [address] [place] [id number] 0 Phone: () - 02/08 CBC w/ auto diff Dave % % 43.0 74.0 57.2 FINAL Oziel [facility] - [place], [address] [place] [id number] 0 Phone: () - 02/08 CBC w/ auto diff IG % % 0.0 0.5 0.4 FINAL [facility] - [place], [address] [place] [id number] 0 Phone: () - 02/08 CBC w/ auto diff IG # K/uL 0.0 0.03 0.02 FINAL [facility]iel Tilleyot [facility] - [place], [address] [place] [id number] 0 Phone: () - 02/08 CBC w/ auto diff LY % % 14.0 41.0 31.6 FINAL Oziel Tilleyot gi [facility] - [place], [address] [place] [id number] 0 Phone: () - 02/08 CBC w/ auto diff MO % % 6.0 15.0 8.0 FINAL Oziel Tilleyot gi [facility] - [place], [address] [place] [id number] 0 Phone: () - 02/08 CBC w/ auto diff EO % % 0.0 7.0 2.2 FINAL Oziel Tilleyot a [facility] - [place], [address] [place] [id number] 0 Phone: () - 02/08 CBC w/ auto diff BA % % 0.0 2.0 0.6 FINAL [facility] - [place], [address] [place] [id number] 0 Phone: () - 02/08 CBC w/ auto diff LY # K/uL 0.4 3.6 1.5 FINAL [facility] - [place], [address] [place] [id number] 0 Phone: () - 02/08 CBC w/ auto diff MO # K/uL 0.2 1.3 0.4 FINAL [facility] - [place], [address] [place] [id number] 0 Phone: () - 02/08 CBC w/ auto diff EO # K/uL 0.0 0.6 0.1 FINAL [facility] - [place], [address] [place] [id number] 0 Phone: () - 02/08 CBC w/ auto diff BA # K/uL 0.0 0.2 0.0 FINAL [facility] - [place], [address] [place] [id number] 0 Phone: () - 02/08 CBC w/ auto diff NRBC % #/100W BC 0.0 0.2 0.0 FINAL [facility] - [place], [address] [place] [id number] 0 Phone: () - 02/08 CBC w/ auto diff RBC M/uL 3.9 5.1 3.26 Low FINAL [facility] - [place], [address] [place] [id number] 0 Phone: () - 02/08 CBC w/ auto diff HCT % 35.0 48.0 32.9 Low FINAL [facility] - [place], [address] [place] [id number] 0 Phone: () - 02/08 CBC w/ auto diff MCV fL 80.0 104.0 100.9 FINAL [facility] - [place], [address] [place] [id number] 0 Phone: () - 02/08 CBC w/ auto diff MCH pg 26.0 35.0 33.7 FINAL [facility] - [place], [address] [place] [id number] 0 Phone: () - 02/08 CBC w/ auto diff MCHC g/dL 30.0 35.0 33.4 FINAL [facility] - [place], [address] [place] [id number] 0 Phone: () - 02/08 CBC w/ auto diff MPV fL 9.5 13.4 9.0 Low FINAL Oziel Tolbert a [facility] - [place], [address] [place] [id number] 0 Phone: () - 02/08 CBC w/ auto diff RDW % 11.4 16.1 13.70 FINAL Oziel Tolbert a [facility] - [place], [address] [place] [id number] 0 Phone: () - 06/06 [facility] other lab See cabinet abrasive sandblaster d 08/09 CMP Album in g/dL 3.5 5.0 4.1 FINAL Oziel Box Stephie [facility] - [place], [address] [facility] [place] [id number] 0 08/09 CMP Alkal ine phosp hatas e U/L 36.0 125.0 66 FINAL Oziel Box * [facility] - [place], [address] [place] [id number] 0 08/09 CMP ALT/S GPT U/L 0.0 34.0 6 FINAL Oziel Tilleyot [employer], [address] [facility] [place] [id number] 0 08/09 CMP AST/S GOT U/L 14.0 36.0 28 FINAL Oziel Tilleyot a [facility], [address] [facility] [place] [id number] 0 08/09 CMP BUN mg/dL 7.0 17.0 17.0 [facility], [address] [facility] [place] [id number] 0 08/09 CMP Calci um mg/dL 8.4 10.2 9.4 [facility], [address] [id number] 0 08/09 CMP Chlor vipin mmol/L 96.0 107.0 106 [facility], [address] [facility] [place] [id number] 0 08/09 CMP CO2 mmol/L 22.0 30.0 [...] the 96 hour stability window. [facility], [address] [facility] [place] [id number] 0 08/09 CMP Creat inine mg/dL 0.66 1.25 0.70 FINAL Oziel Tilleyot [employer], [address] [facility] [place] [id number] 0 08/09 CMP GFR estim ate ml/min /1.73m ^2 90.4 GFR is calculate d using the CKD-EPI equation. FINAL Oziel Box * [facility], [address] [facility] [address] [id number] 0 08/09 CMP Gluco se mg/dL 74.0 100.0 87 FINAL Oziel Box * [facility], [facility] [address] [id number] 0 08/09 CMP Potas sium mmol/L 3.5 5.1 4.2 FINAL Oziel Box * [facility], [facility] [address] [place] [id number] 0 08/09 CMP Sodiu m mmol/L 137.0 145.0 139 FINAL Oziel Tilleyot a [facility], [address] [facility] [address] [id number] 0 08/09 CMP Bilir ubin, total mg/dL 0.2 1.3 0.3 FINAL Oziel Tilleyot a [facility], [address] [facility] [address] [place] [address] [id number] 0 08/09 CMP Total prote in g/dL 6.3 8.2 6.7 FINAL Oziel Tilleyot a [facility], [address] [id number] 0 08/09 CBC w/ auto diff WBC K/uL 3.0 8.9 3.5 FINAL Oziel Tilleyot a [facility] - [place], [address] [place] [id number] 0 Phone: ( 08/09 CBC w/ auto diff HGB g/dL 11.3 15.2 11.7 FINAL Oziel Tilleyot a [facility] - [place], [address] [place] [id number] 0 Phone: () - 08/09 CBC w/ auto diff PLT K/uL 113.0 364.0 196 FINAL Oziel Tilleyot gi [facility] - [place], [address] [place] [id number] 0 Phone: () - 08/09 CBC w/ auto diff Dave # (ANC) K/uL 1.6 6.6 1.9 FINAL Oziel Tolbert a [facility] - [place], [address] [place] [id number] 0 Phone: () - 08/09 CBC w/ auto diff Dave % % 43.0 74.0 52.2 FINAL [facility] angel[facility] - [place], [address] [place] [id number] 0 Phone: () - 08/09 CBC w/ auto diff IG % % 0.0 0.5 0.3 FINAL [facility] - [place], [address] [place] [id number] 0 Phone: () - 08/09 CBC w/ auto diff IG # K/uL 0.0 0.03 0.01 FINAL [facility] angel[facility] - [place], [address] [place] [id number] 0 Phone: () - 08/09 CBC w/ auto diff LY % % 14.0 41.0 35.0 FINAL [facility] angel[facility] - [place], [address] [place] [id number] 0 Phone: () - 08/09 CBC w/ auto diff MO % % 6.0 15.0 9.6 FINAL [facility] angel[facility] - [place], [address] [place] [id number] 0 Phone: () - 08/09 CBC w/ auto diff EO % % 0.0 7.0 2.3 FINAL Oziel Tilleyot a [facility] - [place], [address] [place] [id number] 0 Phone: () - 08/09 CBC w/ auto diff BA % % 0.0 2.0 0.6 FINAL Oziel Tilleyot a [facility] - [place], [address] [place] [id number] 0 Phone: () - 08/09 CBC w/ auto diff LY # K/uL 0.4 3.6 1.2 FINAL Oziel Tilleyot a [facility] - [place], [address] [place] [id number] 0 Phone: () - 08/09 CBC w/ auto diff MO # K/uL 0.2 1.3 0.3 FINAL Oziel Tilleyot a [facility] - [place], [address] [place] [id number] 0 Phone: () - 08/09 CBC w/ auto diff EO # K/uL 0.0 0.6 0.1 FINAL Oziel Tilleyot gi [facility] - [place], [address] [place] [id number] 0 Phone: () - 08/09 CBC w/ auto diff BA # K/uL 0.0 0.2 0.0 FINAL Oziel Tilleyot gi [facility] - [place], [address] [place] [id number] 0 Phone: () - 08/09 CBC w/ auto diff NRBC % #/100W BC 0.0 0.2 0.0 FINAL Oziel Tilleyot a [facility] - [place], [address] [place] [id number] 0 Phone: () - 08/09 CBC w/ auto diff RBC M/uL 3.9 5.1 3.51 Low FINAL Oziel Tilleyot a [facility] - [place], [address] [place] [id number] 0 Phone: () - 08/09 CBC w/ auto diff HCT % 35.0 48.0 35.6 FINAL Oziel Tilleyot a [facility] - [place], [address] [place] [id number] 0 Phone: () - 08/09 CBC w/ auto diff MCV fL 80.0 104.0 101.4 FINAL Oziel Tilleyot a [facility] - [place], [address] [place] [id number] 0 Phone: () - 08/09 CBC w/ auto diff MCH pg 26.0 35.0 33.3 FINAL Oziel Tilleyot a [facility] - [place], [address] [place] [id number] 0 Phone: () - 08/09 CBC w/ auto diff MCHC g/dL 30.0 35.0 32.9 FINAL Oziel Tilleyot a [facility] - [place], [address] [place] [id number] 0 Phone: () - 08/09 CBC w/ auto diff MPV fL 9.5 13.4 9.3 Low FINAL Oziel Tilleyot a [facility] - [place], [address] [place] [id number] 0 Phone: () - 08/09 CBC w/ auto diff RDW % 11.4 16.1 13.20 FINAL Oziel Tilleyot a [facility] - [place], [address] [place] [id number] 0 Phone: () - 08/09 TSH w/ refle x to free T4 TSHR- v mIU/ml 0.47 4.68 0.74 FINAL Oziel Box * [facility] - [place], [address] [facility] [place] [id number] 0 02/13 CBC w/ auto diff WBC K/uL 3.0 8.9 4.7 FINAL Oziel Box [place] [facility] - [place], [address] [place] [id number] 0 02/13 CBC w/ auto diff HGB g/dL 11.3 15.2 10.4 Low FINAL Oziel FREEMAN [facility] - [place], [address] [place] [id number] 0 02/13 CBC w/ auto diff PLT K/uL 113.0 364.0 252 FINAL Oziel FREEMAN [facility] - [place], [address] [place] [id number] 0 02/13 CBC w/ auto diff Dave # (ANC) K/uL 1.6 6.6 2.4 FINAL Oziel FREEMAN [facility] - [place], [address] [place] [id number] 0 02/13 CBC w/ auto diff Dave % % 43.0 74.0 51.3 FINAL Oziel FREEMAN [facility] - [place], [address] [place] [id number] 0 02/13 CBC w/ auto diff IG % % 0.0 0.5 0.2 FINAL Oziel FREEMAN [facility] - [place], [address] [place] [id number] 0 02/13 CBC w/ auto diff IG # K/uL 0.0 0.03 0.01 FINAL Oziel FREEMAN [facility] - [place], [address] [place] [id number] 0 02/13 CBC w/ auto diff LY % % 14.0 41.0 33.5 FINAL Oziel FREEM[facility] - [place], [address] [place] [id number] 0 02/13 CBC w/ auto diff MO % % 6.0 15.0 8.8 FINAL Oziel FRE[facility] - [place], [address] [place] [id number] 0 02/13 CBC w/ auto diff EO % % 0.0 7.0 5.6 FINAL Oziel F[facility] - [place], [address] [place] [id number] 0 02/13 CBC w/ auto diff BA % % 0.0 2.0 0.6 FINAL Oziel FRE[facility] - [place], [address] [place] [id number] 0 02/13 CBC w/ auto diff LY # K/uL 0.4 3.6 1.6 FINAL Oziel FRE[facility] - [place], [address] [place] [id number] 0 02/13 CBC w/ auto diff MO # K/uL 0.2 1.3 0.4 FINAL Oziel FRE[facility] - [place], [address] [place] [id number] 0 02/13 CBC w/ auto diff EO # K/uL 0.0 0.6 0.3 FINAL Oziel FREEMAN [facility] - [place], [address] [place] [id number] 0 02/13 CBC w/ auto diff BA # K/uL 0.0 0.2 0.0 FINAL Oziel FREEM[facility] - [place], [address] [place] [id number] 0 02/13 CBC w/ auto diff NRBC % #/100W BC 0.0 0.2 0.0 FINAL Oziel FRE[facility] - [place], [address] [place] [id number] 0 02/13 CBC w/ auto diff RBC M/uL 3.9 5.1 3.24 Low FINAL Oziel FRE[facility] - [place], [address] [place] [id number] 0 02/13 CBC w/ auto diff HCT % 35.0 48.0 32.3 Low FINAL Oziel FREEMAN [facility] - [place], [address] [place] [id number] 0 02/13 CBC w/ auto diff MCV fL 80.0 104.0 99.7 FINAL Oziel FREEMAN [facility] - [place], [address] [place] [id number] 0 02/13 CBC w/ auto diff MCH pg 26.0 35.0 32.1 FINAL Oziel FREEMAN [facility] - [place], [address] [place] [id number] 0 02/13 CBC w/ auto diff MCHC g/dL 30.0 35.0 32.2 FINAL Oziel FREEMAN [facility] - [place], [address] [place] [id number] 0 02/13 CBC w/ auto diff MPV fL 9.5 13.4 9.1 Low FINAL Oziel FREEMAN [facility] - [place], [address] [place] [id number] 0 02/13 CBC w/ auto diff RDW % 11.4 16.1 13.70 FINAL Oziel FREEMAN [facility] - [place], [address] [place] [id number] 0 02/13 CMP Album in g/dL 3.5 5.0 3.5 FINAL Oziel Box * [place] [facility] - [place], [address] [place] [id number] 0 02/13 CMP Alkal ine phosp hatas e U/L 36.0 125.0 75 FINAL Oziel Box * [place] [facility] - [place], [address] [facility] [id number] 0 02/13 CMP ALT/S GPT U/L 0.0 34.0 <4 Repeate d FINAL Oziel Box * [place] [facility] [place], [address] [facility] [id number] 0 02/13 CMP AST/S GOT U/L 14.0 36.0 17 FINAL Oziel Box * [place] [facility], [address] [facility] [id number] 0 02/13 CMP BUN mg/dL 7.0 17.0 18.0 High FINAL Oziel Card [place] [facility], [address] [facility] [id number] 0 02/13 CMP Calci um mg/dL 8.4 10.2 9.2 FINAL Oziel Card [place] [facility], [address] [facility] [id number] 0 02/13 CMP Chlor vipin mmol/L 96.0 107.0 109 High FINAL Oziel Card [place] [facility], [address] [facility] [id number] 0 02/13 CMP CO2 mmol/L 22.0 30.0 [...] 96 hour stability window. FINAL Oziel Card [place] [facility], [address] [facility] [id number] 0 02/13 CMP Creat inine mg/dL 0.66 1.25 0.80 FINAL Oziel Box * [place] [facility], [address] [facility] [place] [id number] 0 02/13 CMP GFR estim ate ml/min /1.73m ^2 76.8 GFR is calculate d using the CKD-EPI equation. FINAL Oziel Box * [place] [facility], [address] [facility] [place] [id number] 0 02/13 CMP Gluco se mg/dL 74.0 100.0 84 FINAL Oziel Box * [facility], [address] [id number] 0 02/13 CMP Potas sium mmol/L 3.5 5.1 4.4 FINAL Oziel Box * [facility], [address] [id number] 0 02/13 CMP Sodiu m mmol/L 137.0 145.0 137 FINAL Oziel Box * [place] [facility], [address] [id number] 0 02/13 CMP Bilir ubin, total mg/dL 0.2 1.3 0.5 FINAL Oziel Box * [place] [facility], [address] [id number] 0 02/13 CMP Total prote in g/dL 6.3 8.2 6.2 Low FINAL Oziel Box * [facility], [address] [id number] 0 04/03 Misc other lab See cabinet abrasive sandblaster d 08/14 CMP Album in g/dL 3.5 5.0 3.7 FINAL Oziel Box * [place] [facility] [place] [facility] , [address] [facility] [id number] 0 08/14 CMP Alkal ine phosp hatas e U/L 36.0 125.0 68 FINAL Oziel Box * [facility] , [address] [facility] [id number] 0 08/14 CMP ALT/S GPT U/L 0.0 34.0 10 FINAL Oziel Box * [facility] , [address] [facility] [id number] 0 08/14 CMP AST/S GOT U/L 14.0 36.0 28 FINAL Oziel Box * [facility] , [address] [facility] [address] [id number] 0 08/14 CMP BUN mg/dL 7.0 17.0 25.0 High FINAL Oziel Box * [facility] , [address] [facility] [id number] 0 08/14 CMP Calci um mg/dL 8.4 10.2 8.7 FINAL Oziel Box * [facility] , [address] [facility] [id number] 0 08/14 CMP Chlor vipin mmol/L 96.0 107.0 109 High FINAL Oziel Box * [facility] , [address] [facility] [id number] 0 08/14 CMP CO2 mmol/L 22.0 30.0 [...] hour stability window. FINAL Oziel Box * [facility] , [facility] [address] [facility] [id number] 0 08/14 CMP Creat inine mg/dL 0.66 1.25 0.90 FINAL Oziel Box * [facility] , [address] [facility] [address] [id number] 0 08/14 CMP GFR estim ate ml/min /1.73m ^2 66.5 GFR is calculate d using the CKD-EPI equation. FINAL Oziel Box * [facility] , [address] [facility] [address] [id number] 0 08/14 CMP Gluco se mg/dL 74.0 100.0 95 FINAL Oziel Box * [facility] , [facility] [address] [id number] 0 08/14 CMP Potas sium mmol/L 3.5 5.1 4.5 FINAL Oziel Box * [facility] , [address] [facility] [address] [id number] 0 08/14 CMP Sodiu m mmol/L 137.0 145.0 137 FINAL Oziel Box * [facility] , [address] [facility] [address] [id number] 0 08/14 CMP Bilir ubin, total mg/dL 0.2 1.3 0.8 FINAL Oziel Box * [facility] , [address] [facility] [address] [id number] 0 08/14 CMP Total prote in g/dL 6.3 8.2 6.5 FINAL Oziel Box * [facility] , [address] [facility] [address] [id number] 0 08/14 CBC w/ auto diff WBC K/uL 3.0 8.9 4.7 FINAL [facility] , [address] [place] [id number] 0 08/14 CBC w/ auto diff HGB g/dL 11.3 15.2 11.5 FINAL Oziel Box [place] [facility] , [address] [place] [id number] 0 08/14 CBC w/ auto diff PLT K/uL 113.0 364.0 211 FINAL Oziel Box [place] [facility] , [address] [place] [id number] 0 08/14 CBC w/ auto diff Dave # (ANC) K/uL 1.6 6.6 2.9 FINAL Oziel Box [place] [facility] [place] [facility] , [address] [place] [id number] 0 08/14 CBC w/ auto diff Dave % % 43.0 74.0 61.3 FINAL Oziel Box [place] [facility] , [address] [place] [id number] 0 08/14 CBC w/ auto diff IG % % 0.0 0.5 0.2 FINAL Oziel Box [place] [facility] , [address] [place] [id number] 0 08/14 CBC w/ auto diff IG # K/uL 0.0 0.03 0.01 FINAL Oziel Box [place] [facility] , [address] [place] [id number] 0 08/14 CBC w/ auto diff LY % % 14.0 41.0 25.6 FINAL Oziel Box [place] [facility] , [address] [place] [id number] 0 06/02 /2025 CBC w/ auto diff MO % % 6.0 15.0 8.7 FINAL Oziel Box [place] [facility] [place] [facility] , [address] [place] [id number] 0 08/14 CBC w/ auto diff EO % % 0.0 7.0 3.8 FINAL Oziel Box [place] [facility] , [address] [place] [id number] 0 08/14 CBC w/ auto diff BA % % 0.0 2.0 0.4 FINAL Oziel Box [place] [facility] [place] [facility] , [address] [place] [id number] 0 08/14 CBC w/ auto diff LY # K/uL 0.4 3.6 1.2 FINAL Oziel Box [place] [facility] [place] [facility] , [address] [place] [id number] 0 08/14 CBC w/ auto diff MO # K/uL 0.2 1.3 0.4 FINAL Oziel Box [place] [facility] [place] [facility] , [address] [place] [id number] 0 08/14 CBC w/ auto diff EO # K/uL 0.0 0.6 0.2 FINAL Oziel Box [place] [facility] [place] [facility] , [address] [place] [id number] 0 08/14 CBC w/ auto diff BA # K/uL 0.0 0.2 0.0 FINAL Oziel Box [place] [facility] [place] [facility] , [address] [place] [id number] 0 08/14 CBC w/ auto diff NRBC % #/100W BC 0.0 0.2 0.0 FINAL Oziel Box [place] [facility] [place] [facility] , [address] [place] [id number] 0 08/14 CBC w/ auto diff RBC M/uL 3.9 5.1 3.60 Low FINAL Oziel Box [place] [facility] [place] [facility] , [address] [place] [id number] 0 08/14 CBC w/ auto diff HCT % 35.0 48.0 35.2 FINAL Oziel Box [place] [facility] [place] [facility] , [address] [place] [id number] 0 08/14 CBC w/ auto diff MCV fL 80.0 104.0 97.8 FINAL Oziel Box [place] [facility] [place] [facility] , [address] [place] [id number] 0 08/14 CBC w/ auto diff MCH pg 26.0 35.0 31.9 FINAL Oziel Box [place] [facility] [place] [facility] , [address] [place] [id number] 0 08/14 CBC w/ auto diff MCHC g/dL 30.0 35.0 32.7 FINAL Oziel Box [place] [facility] [place] [facility] , [address] [place] [id number] 0 08/14 CBC w/ auto diff MPV fL 9.5 13.4 9.0 Low FINAL Oziel Box [place] [facility] , [address] [place] [id number] 0 08/14 CBC w/ auto diff RDW % 11.4 16.1 13.60 FINAL Oziel Box [place] [facility] [place] [facility] , [address] [place] [id number] 0 Medications Date Name Route Dose Frequency Instructions Start Date End Date Status Baclofen Oral daily act charles Vitamin [id number] Acid Oral 500 mcg-400 mcg daily active [...] concentration must be 0.3-1.2 mg/mL.Administ er using [id number] ining equipment and through an in-line 0.22 [...]
--- OUTSIDE RECORDS SUMMARY | 2024-09-18 09:52 | XMS_ITS ---
Author Name Interface, T7Zgyyliv lity Address [address] [facility] [address] [address] [facility] Address [address] [facility] [address] [address] Allergies and Adverse Reactions Medication/Group Name Reaction [...] uIU/ml 0.32 5.0 1.33 Test performed at [facility] on a AdorStyle Immunoass ay Analyzer that uses an immunoenz ymometric sandwich assay for analysis. Patient testing should not be performed using multiple methodharley amador due to analytica l variation seen between test methodharley amador. FINAL [facility] - [place], [address] [facility] [phone] 0 Phone: () - 07/15 /2022 CBC w/ auto diff WBC K/uL 3.0 8.9 4.1 FINAL [facility] - [place], [address] [place] [id number] 0 Phone: () - 09/26 CBC w/ auto diff HGB g/dL 11.3 15.2 11.3 FINAL [facility] - [place], [address] [place] [id number] 0 Phone: () - 09/26 CBC w/ auto diff PLT K/uL 113.0 364.0 210 FINAL [facility] - [place], [address] [place] [id number] 0 Phone: () - 09/26 CBC w/ auto diff Dave # (ANC) K/uL 1.6 6.6 2.4 FINAL [facility] - [place], [address] [place] [id number] 0 Phone: () - 09/26 CBC w/ auto diff Dave % % 43.0 74.0 58.2 FINAL [facility] - [place], [address] [place] [id number] 0 Phone: () - 09/26 CBC w/ auto diff IG % % 0.0 0.5 0.2 FINAL [facility] - [place], [address] [place] [id number] 0 Phone: () - 09/26 CBC w/ auto diff IG # K/uL 0.0 0.03 0.01 FINAL [facility] - [place], [address] [place] [id number] 0 Phone: () - 09/26 CBC w/ auto diff LY % % 14.0 41.0 27.0 FINAL [facility] - [place], [address] [place] [id number] 0 Phone: () - 09/26 CBC w/ auto diff MO % % 6.0 15.0 10.5 FINAL [facility] - [place], [address] [place] [id number] 0 Phone: () - 09/26 CBC w/ auto diff EO % % 0.0 7.0 3.6 FINAL [facility] - [place], [address] [place] [id number] 0 Phone: () - 09/26 CBC w/ auto diff BA % % 0.0 2.0 0.5 FINAL [facility] - [place], [address] [place] [id number] 0 Phone: () - 09/26 CBC w/ auto diff LY # K/uL 0.4 3.6 1.1 FINAL [facility] - [place], [address] [place] [id number] 0 Phone: () - 09/26 CBC w/ auto diff MO # K/uL 0.2 1.3 0.4 FINAL [facility] - [place], [address] [place] [id number] 0 Phone: () - 09/26 CBC w/ auto diff EO # K/uL 0.0 0.6 0.2 FINAL [facility] - [place], [address] [place] [id number] 0 Phone: () - 09/26 CBC w/ auto diff BA # K/uL 0.0 0.2 0.0 FINAL [facility] - [place], [address] [place] [id number] 0 Phone: () - 09/26 CBC w/ auto diff NRBC % #/100W BC 0.0 0.2 0.0 FINAL [facility] - [place], [address] [place] [id number] 0 Phone: () - 09/26 CBC w/ auto diff RBC M/uL 3.9 5.1 3.38 Low FINAL [facility] - [place], [address] [place] [id number] 0 Phone: () - 09/26 CBC w/ auto diff HCT % 35.0 48.0 34.3 Low FINAL [facility] - [place], [facility] [address] [place] [id number] 0 Phone: () - 09/26 CBC w/ auto diff MCV fL 80.0 104.0 101.5 FINAL [facility] - [place], [facility] [address] [place] [id number] 0 Phone: () - 09/26 CBC w/ auto diff MCH pg 26.0 35.0 33.4 FINAL [facility] - [place], [facility] [address] [place] [id number] 0 Phone: () - 09/26 CBC w/ auto diff MCHC g/dL 30.0 35.0 32.9 FINAL [facility] - [place], [facility] [address] [place] [id number] 0 Phone: () - 09/26 CBC w/ auto diff MPV fL 9.5 13.4 8.9 Low FINAL [facility] - [place], [facility] [address] [place] [id number] 0 Phone: () - 09/26 CBC w/ auto diff RDW % 11.4 16.1 12.60 FINAL [facility] - [place], [facility] [address] [place] [id number] 0 Phone: () - 09/26 CMP Album in g/dL 3.2 5.2 4.3 FINAL [facility] - [place], [address] [place] [id number] 0 Phone: () - 09/26 CMP Alkal ine phosp hatas e U/L 46.0 116.0 65 FINAL Oziel angelo [place] [address] [address] [facility] [address] [id number] 0 Phone: () - 09/26 CMP ALT/S GPT U/L 7.0 40.0 8 FINAL Oziel angelo [facility] [address] [facility] [address] [id number] 0 Phone: () - 09/26 CMP AST/S GOT U/L 13.0 40.0 17 FINAL Oziel angelo [place] [address] [address] [facility] [address] [id number] 0 Phone: () - 09/26 CMP BUN mg/dL 9.0 23.0 21 FINAL Oziel angelo [place] [address] [address] [facility] [address] [id number] 0 Phone: () - 09/26 CMP Calci um mg/dL 8.7 10.4 9.2 FINAL Oziel angelo [place] [address] [address] [facility] [address] [id number] 0 Phone: () - 09/26 CMP Chlor vipin mmol/L 96.0 114.0 111 FINAL Oziel angelo [place] [address] [id number] 0 Phone: () - 09/26 CMP CO2 [...] 96 hour stability window. FINAL Oziel angelo [facility], [facility] [address] [facility] [address] [id number] 0 Phone: () - 09/26 CMP Creat inine mg/dL 0.5 1.2 0.79 FINAL Oziel angelo [place] [address] [address] [facility] [address] [id number] 0 Phone: () - 09/26 CMP GFR estim ate ml/min /1.73m ^2 79.1 GFR is calculate d using the CKD-EPI equation. FINAL [place] [address] [id number] 0 Phone: () - 09/26 CMP Gluco se mg/dL 73.0 126.0 83 FINAL Oziel Box [place] [address] [id number] 0 Phone: () - 09/26 CMP Potas sium mmol/L 3.5 5.1 4.4 FINAL Oziel Box [place] [address] [id number] 0 Phone: () - 09/26 CMP Sodiu m mmol/L 136.0 145.0 143 FINAL [place] [address] [id number] 0 Phone: () - 09/26 CMP Bilir ubin, total mg/dL 0.3 1.2 0.3 FINAL [place] [address] [id number] 0 Phone: () - 09/26 CMP Total prote in g/dL 5.7 8.2 6.3 FINAL [place] [address] [id number] 0 Phone: () - 10/24 T4, free panel T4, free ng/dL 0.7 1.8 1.62 Test performed at [facility] on a AdorStyle Immunoass ay Analyzer that uses an immunoenz ymometric sandwich assay for analysis. Patient testing should not be performed using multiple methodharley amador due to analytica l variation seen between test methodharley amador. FINAL Lia Delgado [place] [address] [id number] 0 Phone: () - 10/24 CMP Album in g/dL 3.2 5.2 4.3 FINAL Lia [place] [address] [id number] 0 Phone: () - 10/24 CMP Alkal ine phosp hatas e U/L 46.0 116.0 59 FINAL Lia [facility], [facility] [address] [facility] [address] [facility] [id number] 0 Phone: () - 10/24 CMP ALT/S GPT U/L 7.0 40.0 12 FINAL Lia [facility] [address] [facility] [id number] 0 Phone: () - 10/24 CMP AST/S GOT U/L 13.0 40.0 22 FINAL Lia [place] [address] [address] [facility] [address] [id number] 0 Phone: () - 10/24 CMP BUN mg/dL 9.0 23.0 16 FINAL [place] [address] [address] [facility] [address] [id number] 0 Phone: () - 10/24 CMP Calci um mg/dL 8.7 10.4 9.7 FINAL [place] [address] [address] [facility] [address] [id number] 0 Phone: () - 10/24 CMP Chlor vipin mmol/L 96.0 114.0 110 FINAL [place] [address] [id number] 0 Phone: () - 10/24 CMP CO2 [...] the 96 hour stability window. FINAL Lia [facility], [facility] [address] [facility] [address] [id number] 0 Phone: () - 10/24 CMP Creat inine mg/dL 0.5 1.2 0.83 FINAL [place] [address] [id number] 0 Phone: () - 10/24 CMP GFR estim ate ml/min /1.73m ^2 74.5 GFR is calculate d using the CKD-EPI equation. FINAL [place] [address] [address] [facility] [address] [place] [address] [phone] 0 Phone: () - 10/24 CMP Gluco se mg/dL 73.0 126.0 87 FINAL [place] [address] [address] [facility] [facility] [address] [facility] [id number] 0 Phone: () - 10/24 CMP Potas sium mmol/L 3.5 5.1 4.4 FINAL [place] [address] [address] [facility] [facility] [address] [facility] [id number] 0 Phone: () - 10/24 CMP Sodiu m mmol/L 136.0 145.0 145 FINAL [facility] [address] [facility] [address] [facility] [id number] 0 Phone: () - 10/24 CMP Bilir ubin, total mg/dL 0.3 1.2 0.4 FINAL [facility] [address] [facility] [address] [facility] [id number] 0 Phone: () - 10/24 CMP Total prote in g/dL 5.7 8.2 6.4 [place] [address] [address] [facility] [address] [place] [address] [id number] 0 Phone: () - 10/24 TSH w/ refle x to free T4 TSH uIU/ml 0.32 5.0 0.05 Low Test performed at [facility] on a Dynis 2000 Immunoass ay Analyzer that uses an immunoenz ymometric sandwich assay for analysis. Patient testing should not be performed using multiple kathi amador due to analytica l variation seen between test kathi amador. FINAL [facility], [facility] [address] [facility] [id number] 0 Phone: () - 10/24 CBC w/ auto diff WBC K/uL 3.0 8.9 5.5 [facility] le, [address] [place] [id number] 0 Phone: () - 10/24 CBC w/ auto diff HGB g/dL 11.3 15.2 12.0 FINAL Lia Tolbert [facility] - [place], [address] [place] [id number] 0 Phone: () - 10/24 CBC w/ auto diff PLT K/uL 113.0 364.0 211 FINAL [facility] - [place], [address] [place] [id number] 0 Phone: () - 10/24 CBC w/ auto diff Dave # (ANC) K/uL 1.6 6.6 3.4 FINAL Lia Tolbert [facility] - [place], [address] [place] [id number] 0 Phone: () - 10/24 CBC w/ auto diff Dave % % 43.0 74.0 62.4 FINAL Lia [facility] - [place], [address] [place] [id number] 0 Phone: () - 10/24 CBC w/ auto diff IG % % 0.0 0.5 1.1 High FINAL Lia [facility] - [place], [address] [place] [id number] 0 Phone: () - 10/24 CBC w/ auto diff IG # K/uL 0.0 0.03 0.06 High FINAL Lia Tolbert [facility] - [place], [address] [place] [id number] 0 Phone: () - 10/24 CBC w/ auto diff LY % % 14.0 41.0 22.2 FINAL [facility] - [place], [address] [place] [id number] 0 Phone: () - 10/24 CBC w/ auto diff MO % % 6.0 15.0 10.1 FINAL [facility] - [place], [address] [place] [id number] 0 Phone: () - 10/24 CBC w/ auto diff EO % % 0.0 7.0 3.8 FINAL [facility] - [place], [address] [place] [id number] 0 Phone: () - 10/24 CBC w/ auto diff BA % % 0.0 2.0 0.4 FINAL [facility] - [place], [address] [place] [id number] 0 Phone: () - 10/24 CBC w/ auto diff LY # K/uL 0.4 3.6 1.2 FINAL [facility] - [place], [address] [place] [id number] 0 Phone: () - 10/24 CBC w/ auto diff MO # K/uL 0.2 1.3 0.6 FINAL Lia Tolbert [facility] - [place], [address] [place] [id number] 0 Phone: () - 10/24 CBC w/ auto diff EO # K/uL 0.0 0.6 0.2 FINAL L[facility] - [place], [address] [place] [id number] 0 Phone: () - 10/24 CBC w/ auto diff BA # K/uL 0.0 0.2 0.0 FINAL Lia [facility] - [place], [address] [place] [id number] 0 Phone: () - 10/24 CBC w/ auto diff NRBC % #/100W BC 0.0 0.2 0.0 FINAL Lia [facility] - [place], [address] [place] [id number] 0 Phone: () - 10/24 CBC w/ auto diff RBC M/uL 3.9 5.1 3.62 Low FINAL Lia [facility] - [place], [address] [place] [id number] 0 Phone: () - 10/24 CBC w/ auto diff HCT % 35.0 48.0 35.7 FINAL L[facility] - [place], [address] [place] [id number] 0 Phone: () - 10/24 CBC w/ auto diff MCV fL 80.0 104.0 98.6 FINAL Lia [facility] - [place], [address] [place] [id number] 0 Phone: () - 10/24 CBC w/ auto diff MCH pg 26.0 35.0 33.1 FINAL Lia [facility] - [place], [address] [place] [id number] 0 Phone: () - 10/24 CBC w/ auto diff MCHC g/dL 30.0 35.0 33.6 FINAL Lia [facility] - [place], [address] [place] [id number] 0 Phone: () - 10/24 CBC w/ auto diff MPV fL 9.5 13.4 9.1 Low FINAL L[facility] - [place], [address] [place] [id number] 0 Phone: () - 10/24 CBC w/ auto diff RDW % 11.4 16.1 12.20 FINAL Lia [facility] - [place], [address] [place] [id number] 0 Phone: () - 11/21 CMP Album in g/dL 3.2 5.2 4.1 FINAL [facility] - [place], [address] [place] [id number] 0 Phone: () - 11/21 CMP Alkal ine phosp hatas e U/L 46.0 116.0 52 FINAL [facility], [address] [facility] [id number] 0 Phone: () - 11/21 CMP ALT/S GPT U/L 7.0 40.0 17 FINAL [facility] [address] [id number] 0 Phone: () - 11/21 CMP AST/S GOT U/L 13.0 40.0 24 FINAL [place] [address] [id number] 0 Phone: () - 11/21 CMP BUN mg/dL 9.0 23.0 14 FINAL [place] [address] [address] [facility] [address] [facility] [id number] 0 Phone: () - 11/21 CMP Calci um mg/dL 8.7 10.4 9.3 FINAL [place] [address] [address] [facility] [address] [id number] 0 Phone: () - 11/21 CMP Chlor vipin mmol/L 96.0 114.0 111 FINAL [place] [address] [address] [facility] [address] [id number] 0 Phone: () - 11/21 CMP CO2 [...] of the 96 hour stability window. FINAL [facility], [facility] [address] [id number] 0 Phone: () - 11/21 CMP Creat inine mg/dL 0.5 1.2 0.79 FINAL [place] [address] [id number] 0 Phone: () - 11/21 CMP GFR estim ate ml/min /1.73m ^2 79.1 GFR is calculate d using the CKD-EPI equation. FINAL [place] [address] [id number] 0 Phone: () - 11/21 CMP Gluco se mg/dL 73.0 126.0 86 FINAL [place] [address] [id number] 0 Phone: () - 11/21 CMP Potas sium mmol/L 3.5 5.1 4.5 FINAL [place] [address] [address] [facility] [address] [id number] 0 Phone: () - 11/21 CMP Sodiu m mmol/L 136.0 145.0 144 FINAL [place] [address] [id number] 0 Phone: () - 11/21 CMP Bilir ubin, total mg/dL 0.3 1.2 0.3 FINAL [place] [address] [id number] 0 Phone: () - 11/21 CMP Total prote in g/dL 5.7 8.2 6.2 [place] [address] [id number] 0 Phone: () - 11/21 T4, free panel T4, free ng/dL 0.7 1.8 1.13 Test performed at [facility] on a AdorStyle Immunoass ay Analyzer that uses an immunoenz ymometric sandwich assay for analysis. Patient testing should not be performed using multiple methodolo ginaun due to analytica l variation seen between test methodharley amador. FINAL [place] [address] [id number] 0 Phone: () - 11/21 TSH w/ refle x to free T4 TSH uIU/ml 0.32 5.0 0.16 Low Test performed at [facility] on a AdorStyle Immunoass ay Analyzer that uses an immunoenz ymometric sandwich assay for analysis. Patient testing should not be performed using multiple methodolo ginaun due to analytica l variation seen between test methodolo ginaun. FINAL Lia angelo [facility] - [place], [address] [place] [id number] 0 Phone: () - 11/21 CBC w/ auto diff WBC K/uL 3.0 8.9 4.1 FINAL Lia angelo [facility] - [place], [address] [place] [id number] 0 Phone: () - 11/21 CBC w/ auto diff HGB g/dL 11.3 15.2 11.8 FINAL Lia angelo [facility] - [place], [address] [place] [id number] 0 Phone: () - 11/21 CBC w/ auto diff PLT K/uL 113.0 364.0 223 FINAL Lia angelo [facility] - [place], [address] [place] [id number] 0 Phone: () - 11/21 CBC w/ auto diff Dave # (ANC) K/uL 1.6 6.6 2.3 FINAL Lia angelo [facility] - [place], [address] [place] [id number] 0 Phone: () - 11/21 CBC w/ auto diff Dave % % 43.0 74.0 56.3 FINAL Lia angelo [facility] - [place], [address] [place] [id number] 0 Phone: () - 11/21 CBC w/ auto diff IG % % 0.0 0.5 0.2 FINAL Lia Tolbert a [facility] - [place], [address] [place] [id number] 0 Phone: () - 11/21 CBC w/ auto diff IG # K/uL 0.0 0.03 0.01 FINAL Lia Tolbert [facility] - [place], [address] [place] [id number] 0 Phone: () - 11/21 CBC w/ auto diff LY % % 14.0 41.0 29.0 FINAL Lia angelo [facility] - [place], [address] [facility] [address] [place] [id number] 0 Phone: () - 11/21 CBC w/ auto diff MO % % 6.0 15.0 10.4 FINAL Lia angelo [facility] - [place], [address] [facility] [address] [place] [id number] 0 Phone: () - 11/21 CBC w/ auto diff EO % % 0.0 7.0 3.9 FINAL Lia angelo [facility] - [place], [address] [facility] [address] [place] [id number] 0 Phone: () - 11/21 CBC w/ auto diff BA % % 0.0 2.0 0.2 FINAL Lia angelo [facility] - [place], [address] [facility] [address] [place] [id number] 0 Phone: () - 11/21 CBC w/ auto diff LY # K/uL 0.4 3.6 1.2 FINAL Lia angelo [facility] - [place], [address] [facility] [address] [place] [id number] 0 Phone: () - 11/21 CBC w/ auto diff MO # K/uL 0.2 1.3 0.4 FINAL Lia Tolbert [facility] - [place], [address] [facility] [address] [place] [id number] 0 Phone: () - 11/21 CBC w/ auto diff EO # K/uL 0.0 0.6 0.2 FINAL Lia Tolbert [facility] - [place], [address] [facility] [address] [place] [id number] 0 Phone: () - 11/21 CBC w/ auto diff BA # K/uL 0.0 0.2 0.0 FINAL Lia Tolbert [facility] - [place], [address] [place] [id number] 0 Phone: () - 11/21 CBC w/ auto diff NRBC % #/100W BC 0.0 0.2 0.0 FINAL Lia Tolbert [facility] - [place], [address] [place] [id number] 0 Phone: () - 11/21 CBC w/ auto diff RBC M/uL 3.9 5.1 3.69 Low FINAL Lia Tolbert [facility] - [place], [address] [place] [id number] 0 Phone: () - 11/21 CBC w/ auto diff HCT % 35.0 48.0 35.6 FINAL Lia Tolbert [facility] - [place], [address] [place] [id number] 0 Phone: () - 11/21 CBC w/ auto diff MCV fL 80.0 104.0 96.5 FINAL Lia angelo [facility] - [place], [address] [place] [id number] 0 Phone: () - 11/21 CBC w/ auto diff MCH pg 26.0 35.0 32.0 FINAL Lia Tolbert [facility] - [place], [address] [place] [id number] 0 Phone: () - 11/21 CBC w/ auto diff MCHC g/dL 30.0 35.0 33.1 FINAL Lia Tolbert [facility] - [place], [address] [place] [id number] 0 Phone: () - 11/21 CBC w/ auto diff MPV fL 9.5 13.4 9.0 Low FINAL Lia angelo [facility] - [place], [address] [place] [id number] 0 Phone: () - 11/21 CBC w/ auto diff RDW % 11.4 16.1 12.40 FINAL Lia [facility] [place] [facility] [place], [address] [place] [id number] 0 Phone: () - 12/19 CBC w/ auto diff WBC K/uL 3.0 8.9 4.9 FINAL Oziel Tilleyot a [facility] - [place], [address] [place] [id number] 0 Phone: () - 12/19 CBC w/ auto diff HGB g/dL 11.3 15.2 11.8 FINAL Oziel Tilleyot [facility] - [place], [address] [place] [id number] 0 Phone: () - 12/19 CBC w/ auto diff PLT K/uL 113.0 364.0 218 FINAL Oziel Tilleyot [facility] - [place], [address] [place] [id number] 0 Phone: () - 12/19 CBC w/ auto diff Dave # (ANC) K/uL 1.6 6.6 2.7 FINAL Oziel Tilleyot gi [facility] - [place], [address] [place] [id number] 0 Phone: () - 12/19 CBC w/ auto diff Dave % % 43.0 74.0 55.3 FINAL Oziel angelo [facility] - [place], [address] [place] [id number] 0 Phone: () - 12/19 CBC w/ auto diff IG % % 0.0 0.5 0.2 FINAL Oziel [facility] - [place], [address] [place] [id number] 0 Phone: () - 12/19 CBC w/ auto diff IG # K/uL 0.0 0.03 0.01 FINAL Oziel Til[facility]ot [facility] - [place], [address] [place] [id number] 0 Phone: () - 12/19 CBC w/ auto diff LY % % 14.0 41.0 30.6 FINAL Oziel Tolbert [facility] - [place], [address] [place] [id number] 0 Phone: () - 12/19 CBC w/ auto diff MO % % 6.0 15.0 9.3 FINAL Oziel Tilleyot [facility] - [place], [address] [place] [id number] 0 Phone: () - 12/19 CBC w/ auto diff EO % % 0.0 7.0 4.0 FINAL Oziel Tilleyot [facility] - [place], [address] [place] [id number] 0 Phone: () - 12/19 CBC w/ auto diff BA % % 0.0 2.0 0.6 FINAL Oziel Tilleyot [facility] - [place], [address] [place] [id number] 0 Phone: () - 12/19 CBC w/ auto diff LY # K/uL 0.4 3.6 1.5 FINAL Oziel angelo [facility] - [place], [address] [place] [id number] 0 Phone: () - 12/19 CBC w/ auto diff MO # K/uL 0.2 1.3 0.5 FINAL Oziel angelo [facility] - [place], [address] [place] [id number] 0 Phone: () - 12/19 CBC w/ auto diff EO # K/uL 0.0 0.6 0.2 FINAL Oziel angelo [facility] - [place], [address] [place] [id number] 0 Phone: () - 12/19 CBC w/ auto diff BA # K/uL 0.0 0.2 0.0 FINAL Oziel T[facility]leyot [facility] - [place], [address] [place] [id number] 0 Phone: () - 12/19 CBC w/ auto diff NRBC % #/100W BC 0.0 0.2 0.0 FINAL Oziel T[facility] - [place], [address] [place] [id number] 0 Phone: () - 12/19 CBC w/ auto diff RBC M/uL 3.9 5.1 3.68 Low FINAL Oziel T[facility] - [place], [address] [place] [id number] 0 Phone: () - 12/19 CBC w/ auto diff HCT % 35.0 48.0 35.3 FINAL [facility] [place], [address] [place] [id number] 0 Phone: () - 12/19 CBC w/ auto diff MCV fL 80.0 104.0 95.9 FINAL [facility] [place], [address] [place] [id number] 0 Phone: () - 12/19 CBC w/ auto diff MCH pg 26.0 35.0 32.1 FINAL [facility] [place], [address] [place] [id number] 0 Phone: () - 12/19 CBC w/ auto diff MCHC g/dL 30.0 35.0 33.4 FINAL [facility] [place], [address] [place] [id number] 0 Phone: () - 12/19 CBC w/ auto diff MPV fL 9.5 13.4 9.1 Low FINAL [facility] [place], [address] [place] [id number] 0 Phone: () - 12/19 CBC w/ auto diff RDW % 11.4 16.1 13.30 FINAL [facility] [place], [address] [place] [id number] 0 Phone: () - 12/19 CMP Album in g/dL 3.2 5.2 4.0 FINAL Oziel angelo [facility], [address] [place] [address] [id number] 0 Phone: () - 12/19 CMP Alkal ine phosp hatas e U/L 46.0 116.0 58 FINAL Oziel angelo [facility], [address] [facility] 100 [facility] [id number] 0 Phone: () - 12/19 CMP ALT/S GPT U/L 7.0 40.0 13 FINAL Oziel angelo [facility] [address] [id number] 0 Phone: () - 12/19 CMP AST/S GOT U/L 13.0 40.0 24 FINAL Oziel angelo [facility] [address] [id number] 0 Phone: () - 12/19 CMP BUN mg/dL 9.0 23.0 18 FINAL Oziel angelo [place] [address] [address] [id number] 0 Phone: () - 12/19 CMP Calci um mg/dL 8.7 10.4 9.7 FINAL Oziel angelo [place] [address] [id number] 0 Phone: () - 12/19 CMP Chlor vipin mmol/L 96.0 114.0 111 FINAL Oziel angelo [place] [address] [address] [id number] 0 Phone: () - 12/19 CMP CO2 [...] 96 hour stability window. FINAL Oziel angelo [facility], [address] [place] [address] [id number] 0 Phone: () - 12/19 CMP Creat inine mg/dL 0.5 1.2 0.82 FINAL Oziel angelo [facility] [address] [id number] 0 Phone: () - 12/19 CMP GFR estim ate ml/min /1.73m ^2 75.6 GFR is calculate d using the CKD-EPI equation. FINAL Oziel angelo [place] [address] [id number] 0 Phone: () - 12/19 CMP Gluco se mg/dL 73.0 126.0 81 FINAL Oziel angelo [place] [address] [id number] 0 Phone: () - 12/19 CMP Potas sium mmol/L 3.5 5.1 4.4 FINAL Oziel angelo [place] [address] [id number] 0 Phone: () - 12/19 CMP Sodiu m mmol/L 136.0 145.0 144 FINAL Oziel angelo [place] [address] [id number] 0 Phone: () - 12/19 CMP Bilir ubin, total mg/dL 0.3 1.2 0.4 FINAL Oziel angelo [place] [address] [id number] 0 Phone: () - 12/19 CMP Total prote in g/dL 5.7 8.2 6.3 FINAL Oziel angelo [place] [address] [id number] 0 Phone: () - 12/19 TSH w/ refle x to free T4 TSH uIU/ml 0.32 5.0 2.75 Test performed at [facility] on a Dynis 2000 Immunoass ay Analyzer that uses an immunoenz ymometric sandwich assay for analysis. Patient testing should not be performed using multiple kathi amador due to analytica l variation seen between test kathi amador. 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 01/16 CMP Album in g/dL 3.2 5.2 4.3 FINAL Oziel angelo [facility], [address] [id number] 0 Phone: () - 01/16 CMP Alkal ine phosp hatas e U/L 46.0 116.0 64 FINAL Oziel angelo [facility] [address] [id number] 0 Phone: () - 01/16 CMP ALT/S GPT U/L 7.0 40.0 12 FINAL Oziel angelo [place] [address] [id number] 0 Phone: () - 01/16 CMP AST/S GOT U/L 13.0 40.0 23 FINAL Oziel angelo [place] [address] [address] [id number] 0 Phone: () - 01/16 CMP BUN mg/dL 9.0 23.0 17 FINAL Oziel angelo [place] [address] [address] [id number] 0 Phone: () - 01/16 CMP Calci um mg/dL 8.7 10.4 9.4 FINAL Ozeil angelo [place] [address] [address] [id number] 0 Phone: () - 01/16 CMP Chlor vipin mmol/L 96.0 114.0 108 FINAL Oziel angelo [place] [address] [address] [id number] 0 Phone: () - 01/16 CMP CO2 [...] 96 hour stability window. FINAL Oziel angelo [facility], [address] [id number] 0 Phone: () - 01/16 CMP Creat inine mg/dL 0.5 1.2 1.07 FINAL Oziel angelo [place] [address] [id number] 0 Phone: () - 01/16 CMP GFR estim ate ml/min /1.73m ^2 54.9 Low GFR is calculate d using the CKD-EPI equation. FINAL Oziel angelo [address] [id number] 0 Phone: () - 01/16 CMP Gluco se mg/dL 73.0 126.0 84 FINAL Oziel angelo [address] [id number] 0 Phone: () - 01/16 CMP Potas sium mmol/L 3.5 5.1 4.4 FINAL Oziel angelo [place] [address] [address] [id number] 0 Phone: () - 01/16 CMP Sodiu m mmol/L 136.0 145.0 141 FINAL Oziel angelo [place] [address] [address] [id number] 0 Phone: () - 01/16 CMP Bilir ubin, total mg/dL 0.3 1.2 0.4 FINAL Oziel angelo [place] [address] [id number] 0 Phone: () - 01/16 CMP Total prote in g/dL 5.7 8.2 6.6 FINAL Oziel angelo [place] [address] [address] [id number] 0 Phone: () - 01/16 TSH w/ refle x to free T4 TSH uIU/ml 0.32 5.0 14.74 High Provider Alert. Notified Vicki by Lynne Flannery on 01/19/2022 at 2:55 PM.Test performed at [facility] on a AdorStyle Immunoass ay Analyzer that uses an immunoenz ymometric sandwich assay for analysis. Patient testing should not be performed using multiple methodharley amador due to analytica l variation seen between test methodharley amador. FINAL Oizel angelo [facility] [place], [address] [place] [id number] 0 Phone: () - 01/16 T4, free panel T4, free ng/dL 0.7 1.8 0.75 Test performed at [facility] on a AdorStyle Immunoass ay Analyzer that uses an immunoenz ymometric sandwich assay for analysis. Patient testing should not be performed using multiple methodharley amador due to analytica l variation seen between test methodharley amador. FINAL [facility] [place], [address] [facility] [address] [place] [id number] 0 Phone: () - 01/16 CBC w/ auto diff WBC K/uL 3.0 8.9 4.4 FINAL [facility] [place], [address] [place] [address] [address] [facility] [place] [id number] 0 Phone: () - 01/16 CBC w/ auto diff HGB g/dL 11.3 15.2 11.9 FINAL [facility] [place], [address] [place] [address] d [address] [facility] [place] [id number] 0 Phone: () - 01/16 CBC w/ auto diff PLT K/uL 113.0 364.0 231 FINAL [facility] [place], [address] [place] [address] d [address] [facility] [place] [id number] 0 Phone: () - 01/16 CBC w/ auto diff Dave # (ANC) K/uL 1.6 6.6 2.4 FINAL [facility] [place], [address] [place], [place] [address]et [facility] [address] [place] [id number] 0 Phone: () - 01/16 CBC w/ auto diff Dave % % 43.0 74.0 54.7 FINAL [facility] [place], [address] [place] [address] d [address] [place] [id number] 0 Phone: () - 01/16 CBC w/ auto diff IG % % 0.0 0.5 0.2 FINAL [facility] [place], [address] [place], [place] [address] [place] [id number] 0 Phone: () - 01/16 CBC w/ auto diff IG # K/uL 0.0 0.03 0.01 FINAL [facility] [place], [address] [place] [id number] 0 Phone: () - 01/16 CBC w/ auto diff LY % % 14.0 41.0 31.8 FINAL [facility] [place], [address] [place] [id number] 0 Phone: () - 01/16 CBC w/ auto diff MO % % 6.0 15.0 8.9 FINAL [facility] [place], [address] [place] [id number] 0 Phone: () - 01/16 CBC w/ auto diff EO % % 0.0 7.0 3.9 FINAL [facility] [place], [address] [place] [id number] 0 Phone: () - 01/16 CBC w/ auto diff BA % % 0.0 2.0 0.5 FINAL [facility] - [place], [address] [place] [id number] 0 Phone: () - 01/16 CBC w/ auto diff LY # K/uL 0.4 3.6 1.4 FINAL [facility] [place], [address] [place] [id number] 0 Phone: () - 01/16 CBC w/ auto diff MO # K/uL 0.2 1.3 0.4 FINAL [facility] [place], [address] [place] [id number] 0 Phone: () - 01/16 CBC w/ auto diff EO # K/uL 0.0 0.6 0.2 FINAL [facility] [place], [address] [place] [id number] 0 Phone: () - 01/16 CBC w/ auto diff BA # K/uL 0.0 0.2 0.0 FINAL [facility] [place], [address] [place] [id number] 0 Phone: () - 01/16 CBC w/ auto diff NRBC % #/100W BC 0.0 0.2 0.0 FINAL [facility] [place], [address] [place] [id number] 0 Phone: () - 01/16 CBC w/ auto diff RBC M/uL 3.9 5.1 3.69 Low FINAL [facility] [place], [address] [place] [id number] 0 Phone: () - 01/16 CBC w/ auto diff HCT % 35.0 48.0 35.0 FINAL [facility] [place], [address] [place] [id number] 0 Phone: () - 01/16 CBC w/ auto diff MCV fL 80.0 104.0 94.9 FINAL [facility] - [place], [address] [place] [id number] 0 Phone: () - 01/16 CBC w/ auto diff MCH pg 26.0 35.0 32.2 FINAL [facility] [place], [address] [place] [id number] 0 Phone: () - 01/16 CBC w/ auto diff MCHC g/dL 30.0 35.0 34.0 FINAL [facility] [place], [address] [place] [id number] 0 Phone: () - 01/16 CBC w/ auto diff MPV fL 9.5 13.4 8.8 Low FINAL [facility] [place], [address] [place] [id number] 0 Phone: () - 01/16 CBC w/ auto diff RDW % 11.4 16.1 13.90 FINAL [facility] [place], [address] [facility] [address] [place] [id number] 0 Phone: () - 02/20 TSH w/ refle x to free T4 TSH uIU/ml 0.32 5.0 Sent to Referen ce Lab. Hard copy results availab le only. Test performed at [facility] on a Dynis 2000 Immunoass ay Analyzer that uses an immunoenz ymometric sandwich assay for analysis. Patient testing should not be performed using multiple methodharley amador due to analytica l variation seen between test methodharley amador. FINAL [facility] - [place], [address] [facility] [id number] 0 Phone: () - 02/20 TSH uIU/mL 0.35 4.94 8.74 High In Adults, TSH values between 5.00 and 10.00 uIU/ml do notnecess arily indicate the presence of Hypothyro idism.Cor relation with clinical findings such as presence of goiterand /or Thyropero xidase (TPO) Antibody may be helpful. Formore informati on please refer to MAYELA 2004; 291: 228-238.T est Performed by:[facility] [address] - [place], [place] [address]Wwsw e : FINAL Oziel Box 02/20 T4, free panel T4, free ng/dL 0.7 1.8 1.01 Test Performed by:[facility] [address] - [facility] [address]Bsqu e : FINAL Oziel Box 05/08 CBC w/ auto diff WBC K/uL 3.0 8.9 7.3 FINAL [facility] [place], [address] [facility] [address] [facility] [id number] 0 Phone: () - 05/08 CBC w/ auto diff HGB g/dL 11.3 15.2 11.0 Low FINAL [facility] [place], [address] [place] [id number] 0 Phone: () - 05/08 CBC w/ auto diff PLT K/uL 113.0 364.0 210 FINAL [facility] [place], [address] [place] [id number] 0 Phone: () - 05/08 CBC w/ auto diff Dave # (ANC) K/uL 1.6 6.6 3.7 FINAL [facility] [place], [address] [place] [id number] 0 Phone: () - 05/08 CBC w/ auto diff Dave % % 43.0 74.0 51.1 FINAL [facility] [place], [address] [place] [id number] 0 Phone: () - 05/08 CBC w/ auto diff IG % % 0.0 0.5 0.3 FINAL [facility] [place], [address] [place] [id number] 0 Phone: () - 05/08 CBC w/ auto diff IG # K/uL 0.0 0.03 0.02 FINAL [facility] [place], [address] [place] [id number] 0 Phone: () - 05/08 CBC w/ auto diff LY % % 14.0 41.0 37.9 FINAL [facility] [place], [address] [place] [id number] 0 Phone: () - 05/08 CBC w/ auto diff MO % % 6.0 15.0 9.2 FINAL [facility] [place], [address] [place] [id number] 0 Phone: () - 05/08 CBC w/ auto diff EO % % 0.0 7.0 1.2 FINAL [facility] [place], [address] [place] [id number] 0 Phone: () - 05/08 CBC w/ auto diff BA % % 0.0 2.0 0.3 FINAL [facility] [place], [address] [place] [id number] 0 Phone: () - 05/08 CBC w/ auto diff LY # K/uL 0.4 3.6 2.8 FINAL [facility] [place], [address] [place] [id number] 0 Phone: () - 05/08 CBC w/ auto diff MO # K/uL 0.2 1.3 0.7 FINAL [facility] [place], [address] [place] [id number] 0 Phone: () - 05/08 CBC w/ auto diff EO # K/uL 0.0 0.6 0.1 FINAL [facility] [place], [address] [place] [id number] 0 Phone: () - 05/08 CBC w/ auto diff BA # K/uL 0.0 0.2 0.0 FINAL [facility] [place], [address] [place] [id number] 0 Phone: () - 05/08 CBC w/ auto diff NRBC % #/100W BC 0.0 0.2 0.0 FINAL [facility] [place], [address] [place] [id number] 0 Phone: () - 05/08 CBC w/ auto diff RBC M/uL 3.9 5.1 3.27 Low FINAL [facility] [place], [address] [place] [id number] 0 Phone: () - 05/08 CBC w/ auto diff HCT % 35.0 48.0 32.1 Low FINAL [facility] [place], [address] [place] [id number] 0 Phone: () - 05/08 CBC w/ auto diff MCV fL 80.0 104.0 98.2 FINAL [facility] angel[facility] - [place], [address] [place] [id number] 0 Phone: () - 05/08 CBC w/ auto diff MCH pg 26.0 35.0 33.6 FINAL [facility] [place], [address] [place] [id number] 0 Phone: () - 05/08 CBC w/ auto diff MCHC g/dL 30.0 35.0 34.3 FINAL [facility] - [place], [address] [place] [id number] 0 Phone: () - 05/08 CBC w/ auto diff MPV fL 9.5 13.4 9.4 Low FINAL [facility] [place], [address] [place] [id number] 0 Phone: () - 05/08 CBC w/ auto diff RDW % 11.4 16.1 13.10 FINAL [facility] - [place], [address] [place] [id number] 0 Phone: () - 05/08 CMP Album in g/dL 3.2 5.2 4.0 FINAL [facility] [place], [address] [place] [id number] 0 Phone: () - 05/08 CMP Alkal ine phosp hatas e U/L 46.0 116.0 56 FINAL [facility] [place], [address] [place] [id number] 0 Phone: () - 05/08 CMP ALT/S GPT U/L 7.0 40.0 17 FINAL Oziel angelo [facility], [address] [id number] 0 Phone: () - 05/08 CMP AST/S GOT U/L 13.0 40.0 21 FINAL Oziel angelo [facility] [address] [facility] [address] [facility] [id number] 0 Phone: () - 05/08 CMP BUN mg/dL 9.0 23.0 22 FINAL Oziel angelo [place] [address] [id number] 0 Phone: () - 05/08 CMP Calci um mg/dL 8.7 10.4 9.3 FINAL Oziel angelo [place] [address] [id number] 0 Phone: () - 05/08 CMP Chlor vipin mmol/L 96.0 114.0 112 FINAL Oziel angelo [place] [address] [id number] 0 Phone: () - 05/08 CMP CO2 [...] 96 hour stability window. FINAL Oziel angelo [place] [address] [id number] 0 Phone: () - 05/08 CMP Creat inine mg/dL 0.5 1.2 0.86 FINAL Oziel angelo [place] [address] [id number] 0 Phone: () - 05/08 CMP GFR estim ate ml/min /1.73m ^2 71.2 GFR is calculate d using the CKD-EPI equation. FINAL Oziel angelo [facility], [facility] [address] [id number] 0 Phone: () - 05/08 CMP Gluco se mg/dL 73.0 126.0 77 FINAL Oziel angelo [facility], [address] [facility] 100 [facility] [id number] 0 Phone: () - 05/08 CMP Potas sium mmol/L 3.5 5.1 3.9 FINAL Oziel angelo [facility], [address] [facility] 100 [facility] [id number] 0 Phone: () - 05/08 CMP Sodiu m mmol/L 136.0 145.0 148 High FINAL Oziel angelo [facility] [address] [facility] 100 [facility] [id number] 0 Phone: () - 05/08 CMP Bilir ubin, total mg/dL 0.3 1.2 0.4 FINAL Oziel angelo [facility] [address] [facility] 100 [facility] [id number] 0 Phone: () - 05/08 CMP Total prote in g/dL 5.7 8.2 6.1 FINAL Oziel angelo [facility] [address] [facility] 100 [facility] [id number] 0 Phone: () - 05/08 TSH w/ refle x to free T4 TSH uIU/ml 0.32 5.0 1.36 Test performed at [facility] on a AdorStyle Immunoass ay Analyzer that uses an immunoenz ymometric sandwich assay for analysis. Patient testing should not be performed using multiple methodolo gies due to analytica l variation seen between test methodolo gies. 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 11/03 CBC w/ auto diff WBC K/uL 3.0 8.9 4.7 FINAL Oziel angel[facility] - [place], [address] [facility] [id number] 0 Phone: () - 11/03 CBC w/ auto diff HGB g/dL 11.3 15.2 11.6 FINAL Oziel angel[facility] [place], [address] [place] [id number] 0 Phone: () - 11/03 CBC w/ auto diff PLT K/uL 113.0 364.0 248 FINAL [facility] [place], [address] [place] [id number] 0 Phone: () - 11/03 CBC w/ auto diff Dave # (ANC) K/uL 1.6 6.6 2.9 FINAL [facility] [place], [address] [place] [id number] 0 Phone: () - 11/03 CBC w/ auto diff Dave % % 43.0 74.0 60.9 FINAL Oziel Tol[facility] - [place], [address] [place] [id number] 0 Phone: () - 11/03 CBC w/ auto diff IG % % 0.0 0.5 0.4 FINAL Oz[facility] [place], [address] [place] [id number] 0 Phone: () - 11/03 CBC w/ auto diff IG # K/uL 0.0 0.03 0.02 FINAL [facility] [place], [address] [place] [id number] 0 Phone: () - 11/03 CBC w/ auto diff LY % % 14.0 41.0 26.8 FINAL [facility] - [place], [address] [place] [id number] 0 Phone: () - 11/03 CBC w/ auto diff MO % % 6.0 15.0 8.5 FINAL [facility] [place], [address] [place] [id number] 0 Phone: () - 11/03 CBC w/ auto diff EO % % 0.0 7.0 3.0 FINAL [facility] [place], [address] [place] [id number] 0 Phone: () - 11/03 CBC w/ auto diff BA % % 0.0 2.0 0.4 FINAL [facility] [place], [address] [place] [id number] 0 Phone: () - 11/03 CBC w/ auto diff LY # K/uL 0.4 3.6 1.3 FINAL Oz[facility] - [place], [address] [place] [id number] 0 Phone: () - 11/03 CBC w/ auto diff MO # K/uL 0.2 1.3 0.4 FINAL Oz[facility] [place], [address] [place] [id number] 0 Phone: () - 11/03 CBC w/ auto diff EO # K/uL 0.0 0.6 0.1 FINAL Oziel angel[facility] - [place], [address] [place] [id number] 0 Phone: () - 11/03 CBC w/ auto diff BA # K/uL 0.0 0.2 0.0 FINAL Oziel angel[facility] - [place], [address] [place] [id number] 0 Phone: () - 11/03 CBC w/ auto diff NRBC % #/100W BC 0.0 0.2 0.0 FINAL Oziel [facility] - [place], [address] [place] [id number] 0 Phone: () - 11/03 CBC w/ auto diff RBC M/uL 3.9 5.1 3.52 Low FINAL Oziel [facility] - [place], [address] [place] [id number] 0 Phone: () - 11/03 CBC w/ auto diff HCT % 35.0 48.0 34.2 Low FINAL Oziel [facility] [place] [facility] [place], [address] [place] [id number] 0 Phone: () - 11/03 CBC w/ auto diff MCV fL 80.0 104.0 97.2 FINAL Oziel angel[facility] - [place], [address] [place] [id number] 0 Phone: () - 11/03 CBC w/ auto diff MCH pg 26.0 35.0 33.0 FINAL [facility] angel[facility] - [place], [address] [place] [id number] 0 Phone: () - 11/03 CBC w/ auto diff MCHC g/dL 30.0 35.0 33.9 FINAL [facility] - [place], [address] [place] [id number] 0 Phone: () - 11/03 CBC w/ auto diff MPV fL 9.5 13.4 8.7 Low FINAL [facility] - [place], [address] [place] [id number] 0 Phone: () - 11/03 CBC w/ auto diff RDW % 11.4 16.1 14.40 FINAL [facility] - [place], [address] [place] [id number] 0 Phone: () - 11/03 CMP Album in g/dL 3.2 5.2 4.1 FINAL [facility] [place], [address] [place] [id number] 0 Phone: () - 11/03 CMP Alkal ine phosp hatas e U/L 46.0 116.0 59 FINAL [facility] [place], [address] [place] [id number] 0 Phone: () - 11/03 CMP ALT/S GPT U/L 7.0 40.0 <7 FINAL [facility] [place], [address] [place] [id number] 0 Phone: () - 11/03 CMP AST/S GOT U/L 13.0 40.0 24 FINAL Oziel angelo [place] [address] [id number] 0 Phone: () - 11/03 CMP BUN mg/dL 9.0 23.0 16.0 FINAL Oziel angelo [place] [address] [address] [id number] 0 Phone: () - 11/03 CMP Calci um mg/dL 8.7 10.4 9.1 FINAL Oziel angelo [place] [address] [id number] 0 Phone: () - 11/03 CMP Chlor vipin mmol/L 96.0 114.0 105 FINAL Oziel angelo [place] [place] [address] [id number] 0 Phone: () - 11/03 CMP CO2 [...] 96 hour stability window. FINAL Oziel angelo [place] [address] [id number] 0 Phone: () - 11/03 CMP Creat inine mg/dL 0.5 1.2 0.88 FINAL Oziel angelo [place] [address] [id number] 0 Phone: () - 11/03 CMP GFR estim ate ml/min /1.73m ^2 69.0 GFR is calculate d using the CKD-EPI equation. FINAL Oziel angelo [place] [address] [id number] 0 Phone: () - 11/03 CMP Gluco se mg/dL 73.0 126.0 105 FINAL Oziel angelo [place] [address] [address] [facility] 100 [facility] [id number] 0 Phone: () - 11/03 CMP Potas sium mmol/L 3.5 5.1 4.4 FINAL Oziel angelo Oncology [facility], [address] [facility] [id number] 0 Phone: () - 11/03 CMP Sodiu m mmol/L 136.0 145.0 139 FINAL Oziel angelo Oncology [facility], [address] [facility] [id number] 0 Phone: () - 11/03 CMP Bilir ubin, total mg/dL 0.3 1.2 0.6 FINAL Oziel angelo [facility], [address] [facility] [id number] 0 Phone: () - 11/03 CMP Total prote in g/dL 5.7 8.2 6.6 FINAL Oziel angelo Oncology [facility], [address] [facility] [id number] 0 Phone: () - 02/08 CBC w/ auto diff WBC K/uL 3.0 8.9 4.7 FINAL Oziel angelo On[facility] - [place], [address] [facility] [id number] 0 Phone: () - 02/08 CBC w/ auto diff HGB g/dL 11.3 15.2 11.0 Low FINAL Oziel angelo Oncology - [place], [address] [facility] [id number] 0 Phone: () - 02/08 CBC w/ auto diff PLT K/uL 113.0 364.0 194 FINAL Oziel angelo Oncology - [place], [address] [facility] [place] [id number] 0 Phone: () - 02/08 CBC w/ auto diff Dave # (ANC) K/uL 1.6 6.6 2.7 FINAL Oziel angelo Oncology - [place], [address] [facility] [place] [id number] 0 Phone: () - 02/08 CBC w/ auto diff Dave % % 43.0 74.0 57.2 FINAL Oziel Tilleyot a [facility] - [place], [address] [place] [id number] 0 Phone: () - 02/08 CBC w/ auto diff IG % % 0.0 0.5 0.4 FINAL Oziel Tilleyot a [facility] - [place], [address] [place] [id number] 0 Phone: () - 02/08 CBC w/ auto diff IG # K/uL 0.0 0.03 0.02 FINAL Oziel Tilleyot a [facility] - [place], [address] [place] [id number] 0 Phone: () - 02/08 CBC w/ auto diff LY % % 14.0 41.0 31.6 FINAL Oziel Tilleyot a [facility] - [place], [address] [place] [id number] 0 Phone: () - 02/08 CBC w/ auto diff MO % % 6.0 15.0 8.0 FINAL Oziel Tilleyot a [facility] - [place], [address] [place] [id number] 0 Phone: () - 02/08 CBC w/ auto diff EO % % 0.0 7.0 2.2 FINAL Oziel Tilleyot a [facility] - [place], [address] [place] [id number] 0 Phone: () - 02/08 CBC w/ auto diff BA % % 0.0 2.0 0.6 FINAL Oziel Tilleyot a [facility] - [place], [address] [place] [id number] 0 Phone: () - 02/08 CBC w/ auto diff LY # K/uL 0.4 3.6 1.5 FINAL Oziel Tilleyot a [facility] - [place], [address] [place] [id number] 0 Phone: () - 02/08 CBC w/ auto diff MO # K/uL 0.2 1.3 0.4 FINAL Oziel Tilleyot a [facility] - [place], [address] [place] [id number] 0 Phone: () - 02/08 CBC w/ auto diff EO # K/uL 0.0 0.6 0.1 FINAL Oziel Tilleyot a [facility] - [place], [address] [place] [id number] 0 Phone: () - 02/08 CBC w/ auto diff BA # K/uL 0.0 0.2 0.0 FINAL Oziel Tilleyot a [facility] - [place], [address] [place] [id number] 0 Phone: () - 02/08 CBC w/ auto diff NRBC % #/100W BC 0.0 0.2 0.0 FINAL Oziel Tilleyot gi Oncology - [place], [address] [place] [id number] 0 Phone: () - 02/08 CBC w/ auto diff RBC M/uL 3.9 5.1 3.26 Low FINAL Oziel angelo Oncology - [place], [address] [place] [id number] 0 Phone: () - 02/08 CBC w/ auto diff HCT % 35.0 48.0 32.9 Low FINAL Oziel Tilleyot gi Oncology - [place], [address] [place] [id number] 0 Phone: () - 02/08 CBC w/ auto diff MCV fL 80.0 104.0 100.9 FINAL Oziel Tilleyot a [facility] - [place], [address] [place] [id number] 0 Phone: () - 02/08 CBC w/ auto diff MCH pg 26.0 35.0 33.7 FINAL Oziel Tilleyot a Oncology - [place], [address] [place] [id number] 0 Phone: () - 02/08 CBC w/ auto diff MCHC g/dL 30.0 35.0 33.4 FINAL [facility], [address] [facility] [address] [facility] [place] [id number] 0 Phone: () - 02/08 CBC w/ auto diff MPV fL 9.5 13.4 9.0 Low FINAL Oziel angelo [facility], [address] [facility] [place] [id number] 0 Phone: () - 02/08 CBC w/ auto diff RDW % 11.4 16.1 13.70 FINAL Oziel angelo [facility], [address] [place] [address] d [address] [facility] [place] [id number] 0 Phone: () - 02/08 TSH w/ refle x to free T4 TSH uIU/ml 0.32 5.0 3.61 Test performed at [facility] on a [employer] Immunoass ay Analyzer that uses an immunoenz ymometric sandwich assay for analysis. Patient testing should not be performed using multiple methodolo ginaun due to analytica l variation seen between test methodharley amador. FINAL Oziel angelo [facility], [address] [place] [address] [id number] 0 Phone: () - 02/08 CMP Album in g/dL 3.2 5.2 4.0 FINAL Oziel angelo [facility], [address] [place] [address] [id number] 0 Phone: () - 02/08 CMP Alkal ine phosp hatas e U/L 46.0 116.0 83 FINAL Oziel angelo [facility], [address] [facility] [id number] 0 Phone: () - 02/08 CMP ALT/S GPT U/L 7.0 40.0 <7 FINAL Oziel angelo [facility], [address] [facility] [id number] 0 Phone: () - 02/08 CMP AST/S GOT U/L 13.0 40.0 23 FINAL Oziel angelo [facility], [address] [facility] [id number] 0 Phone: () - 02/08 CMP BUN mg/dL 9.0 23.0 17.0 FINAL Oziel angelo [place] [address] [address] [facility] 100 [facility] [id number] 0 Phone: () - 02/08 CMP Calci um mg/dL 8.7 10.4 8.8 FINAL Oziel angelo [place] [address] [id number] 0 Phone: () - 02/08 CMP Chlor vipin mmol/L 96.0 114.0 109 FINAL Oziel angelo [place] [address] [id number] 0 Phone: () - 02/08 CMP CO2 [...] 96 hour stability window. FINAL Oziel angelo [place] [address] [id number] 0 Phone: () - 02/08 CMP Creat inine mg/dL 0.5 1.2 0.86 FINAL Oziel angelo [place] [address] [id number] 0 Phone: () - 02/08 CMP GFR estim ate ml/min /1.73m ^2 70.9 GFR is calculate d using the CKD-EPI equation. FINAL Oziel angelo [place] [address] [id number] 0 Phone: () - 02/08 CMP Gluco se mg/dL 73.0 126.0 84 FINAL Oziel angelo [place] [address] [id number] 0 Phone: () - 02/08 CMP Potas sium mmol/L 3.5 5.1 4.5 FINAL Oziel angelo [facility], [address] [facility] [id number] 0 Phone: () - 02/08 CMP Sodiu m mmol/L 136.0 145.0 141 FINAL Oziel Tolbert a [facility], [address] [facility] [id number] 0 Phone: () - 02/08 CMP Bilir ubin, total mg/dL 0.3 1.2 0.3 FINAL Oziel Tolbert a [facility], [address] [facility] [id number] 0 Phone: () - 02/08 CMP Total prote in g/dL 5.7 8.2 6.1 FINAL Oziel angelo [facility], [address] [facility] [id number] 0 Phone: () - 06/06 Misc 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 08/09 CMP Album in g/dL 3.5 5.0 4.1 FINAL Oziel Tilleyot [facility], [address] [id number] 0 08/09 CMP Alkal ine phosp hatas e U/L 36.0 125.0 66 FINAL Oziel Tilleyot [facility], [address] [facility] [id number] 0 08/09 CMP ALT/S GPT U/L 0.0 34.0 6 FINAL Oziel Tilleyot [facility], [address] [facility] [id number] 0 08/09 CMP AST/S GOT U/L 14.0 36.0 28 FINAL [facility] Card [facility], [address] [facility] [id number] 0 08/09 CMP BUN mg/dL 7.0 17.0 17.0 FINAL Oziel Tilleyot [facility], [address] [facility] [id number] 0 08/09 CMP Calci um mg/dL 8.4 10.2 9.4 FINAL Oziel Tilleyot [facility], [address] [facility] [address] [id number] 0 08/09 CMP Chlor vipin mmol/L 96.0 107.0 106 [facility], [address] [facility] [address] [id number] 0 08/09 CMP CO2 mmol/L 22.0 30.0 [...] the 96 hour stability window. [facility], [address] [facility] [address] [id number] 0 08/09 CMP Creat inine mg/dL 0.66 1.25 0.70 FINAL Oziel angelo [facility], [address] [facility] [address] [id number] 0 08/09 CMP GFR estim ate ml/min /1.73m ^2 90.4 GFR is calculate d using the CKD-EPI equation. [facility], [address] [facility] [address] [id number] 0 08/09 CMP Gluco se mg/dL 74.0 100.0 87 FINAL Oziel Tilleyot a [facility], [address] [facility] [address] [facility] [id number] 0 08/09 CMP Potas sium mmol/L 3.5 5.1 4.2 FINAL Oziel Box * [place] [facility] [place], [address] [facility] [id number] 0 08/09 CMP Sodiu m mmol/L 137.0 145.0 139 FINAL Oziel Box * [place] [facility] [place], [address] [facility] [id number] 0 08/09 CMP Bilir ubin, total mg/dL 0.2 1.3 0.3 FINAL Oziel Box * [place] [facility], [address] [facility] [id number] 0 08/09 CMP Total prote in g/dL 6.3 8.2 6.7 FINAL Oziel Box * [place] [facility], [address] [facility] [id number] 0 08/09 CBC w/ auto diff WBC K/uL 3.0 8.9 3.5 FINAL Oziel Tilleyot a [facility] - [place], [address] [place] [facility] [id number] 0 Phone: () - 08/09 CBC w/ auto diff HGB g/dL 11.3 15.2 11.7 FINAL Oziel Tilleyot a [facility] - [place], [address] [place] [id number] 0 Phone: () - 08/09 CBC w/ auto diff PLT K/uL 113.0 364.0 196 FINAL Oziel Tilleyot a [facility] - [place], [address] [place] [id number] 0 Phone: () - 08/09 CBC w/ auto diff Dave # (ANC) K/uL 1.6 6.6 1.9 FINAL Oziel Tilleyot a [facility] - [place], [address] [place] [id number] 0 Phone: () - 08/09 CBC w/ auto diff Dave % % 43.0 74.0 52.2 FINAL Oziel Tilleyot a [facility] - [place], [address] [place] [id number] 0 Phone: () - 08/09 CBC w/ auto diff IG % % 0.0 0.5 0.3 FINAL Oziel Tilleyot a [facility] - [place], [address] [place] [id number] 0 Phone: () - 08/09 CBC w/ auto diff IG # K/uL 0.0 0.03 0.01 FINAL Oziel Tilleyot a On[facility] - [place], [address] [place] [id number] 0 Phone: () - 08/09 CBC w/ auto diff LY % % 14.0 41.0 35.0 FINAL Oziel Tilleyot a [facility] - [place], [address] [place] [id number] 0 Phone: () - 08/09 CBC w/ auto diff MO % % 6.0 15.0 9.6 FINAL Oziel Tilleyot a [facility] - [place], [address] [place] [id number] 0 Phone: () - 08/09 CBC w/ auto diff EO % % 0.0 7.0 2.3 FINAL Oziel Tilleyot a [facility] - [place], [address] [place] [id number] 0 Phone: () - 08/09 CBC w/ auto diff BA % % 0.0 2.0 0.6 FINAL Oziel Tilleyot a [facility] - [place], [address] [place] [id number] 0 Phone: () - 08/09 CBC w/ auto diff LY # K/uL 0.4 3.6 1.2 FINAL Oziel Tilleyot a [facility] - [place], [address] [place] [id number] 0 Phone: () - 08/09 CBC w/ auto diff MO # K/uL 0.2 1.3 0.3 FINAL Oziel angelo Oncology - [place], [address] [place] [id number] 0 Phone: () - 08/09 CBC w/ auto diff EO # K/uL 0.0 0.6 0.1 FINAL Oziel Tilleyot gi On[facility] - [place], [address] [place] [id number] 0 Phone: () - 08/09 CBC w/ auto diff BA # K/uL 0.0 0.2 0.0 FINAL Oziel Tilleyot a [facility] - [place], [address] [place] [id number] 0 Phone: () - 08/09 CBC w/ auto diff NRBC % #/100W BC 0.0 0.2 0.0 FINAL Oziel angelo On[facility] - [place], [address] [place] [id number] 0 Phone: () - 08/09 CBC w/ auto diff RBC M/uL 3.9 5.1 3.51 Low FINAL Oziel angelo On[facility] - [place], [address] [place] [id number] 0 Phone: () - 08/09 CBC w/ auto diff HCT % 35.0 48.0 35.6 FINAL Oziel angelo On[facility] - [place], [address] [place] [id number] 0 Phone: () - 08/09 CBC w/ auto diff MCV fL 80.0 104.0 101.4 FINAL Oziel Tilleyot a [facility] - [place], [address] [place] [id number] 0 Phone: () - 08/09 CBC w/ auto diff MCH pg 26.0 35.0 33.3 FINAL Oziel Tilleyot a [facility] - [place], [address] [place] [id number] 0 Phone: () - 08/09 CBC w/ auto diff MCHC g/dL 30.0 35.0 32.9 FINAL Oziel Tilleyot a [facility] - [place], [address] [place] [id number] 0 Phone: () - 08/09 CBC w/ auto diff MPV fL 9.5 13.4 9.3 Low FINAL Oziel Tilleyot a [facility] - [place], [address] [place] [id number] 0 Phone: () - 08/09 CBC w/ auto diff RDW % 11.4 16.1 13.20 FINAL Oziel Tilleyot a [facility] - [place], [address] [place] [id number] 0 Phone: () - 08/09 TSH w/ refle x to free T4 TSHR- v mIU/ml 0.47 4.68 0.74 FINAL Oziel Box * [place] [facility] [place], [address] [facility] [place] [id number] 0 02/13 CBC w/ auto diff WBC K/uL 3.0 8.9 4.7 FINAL Oziel FREEMAN [facility] - [place], [address] [place] [id number] 0 02/13 CBC w/ auto diff HGB g/dL 11.3 15.2 10.4 Low FINAL Oziel FREEMAN [facility] - [place], [address] [place] [id number] 0 02/13 CBC w/ auto diff PLT K/uL 113.0 364.0 252 FINAL Oziel FREEMAN [facility] - [place], [address] [place] [id number] 0 02/13 CBC w/ auto diff Dave # (ANC) K/uL 1.6 6.6 2.4 FINAL Oziel FREEMAN [facility] - [place], [address] [place] [id number] 0 02/13 CBC w/ auto diff Dave % % 43.0 74.0 51.3 FINAL Oziel FREEMAN [facility] - [place], [address] [place] [id number] 0 02/13 CBC w/ auto diff IG % % 0.0 0.5 0.2 FINAL Oziel FREEMAN [facility] - [place], [address] [place] [id number] 0 02/13 CBC w/ auto diff IG # K/uL 0.0 0.03 0.01 FINAL Oziel FREEMAN [facility] - [place], [address] [place] [id number] 0 02/13 CBC w/ auto diff LY % % 14.0 41.0 33.5 FINAL Oziel FREEMAN [facility] - [place], [address] [place] [id number] 0 02/13 CBC w/ auto diff MO % % 6.0 15.0 8.8 FINAL Oziel FREEMAN [facility] - [place], [address] [place] [id number] 0 02/13 CBC w/ auto diff EO % % 0.0 7.0 5.6 FINAL Oziel FREEMAN [facility] - [place], [address] [place] [id number] 0 02/13 CBC w/ auto diff BA % % 0.0 2.0 0.6 FINAL Oziel FREEMAN [facility] - [place], [address] [place] [id number] 0 02/13 CBC w/ auto diff LY # K/uL 0.4 3.6 1.6 FINAL Oziel FREEMAN [facility] - [place], [address] [place] [id number] 0 02/13 CBC w/ auto diff MO # K/uL 0.2 1.3 0.4 FINAL Oziel FREEMAN [facility] - [place], [address] [place] [id number] 0 02/13 CBC w/ auto diff EO # K/uL 0.0 0.6 0.3 FINAL Oziel FREEMAN [facility] - [place], [address] [place] [id number] 0 02/13 CBC w/ auto diff BA # K/uL 0.0 0.2 0.0 FINAL Oziel FREEMAN [facility] - [place], [address] [place] [id number] 0 02/13 CBC w/ auto diff NRBC % #/100W BC 0.0 0.2 0.0 FINAL Oziel FREEMAN [facility] - [place], [address] [place] [id number] 0 02/13 CBC w/ auto diff RBC M/uL 3.9 5.1 3.24 Low FINAL Oziel FREEMAN [facility] - [place], [address] [place] [id number] 0 02/13 CBC w/ auto diff HCT % 35.0 48.0 32.3 Low FINAL Oziel FREEMAN [facility] - [place], [address] [place] [id number] 0 02/13 CBC w/ auto diff MCV fL 80.0 104.0 99.7 FINAL Oziel FREEMAN [facility] - [place], [address] [place] [id number] 0 02/13 CBC w/ auto diff MCH pg 26.0 35.0 32.1 FINAL Oziel FREEMAN [facility] - [place], [address] [place] [id number] 0 02/13 CBC w/ auto diff MCHC g/dL 30.0 35.0 32.2 FINAL Oziel FREEMAN [facility] - [place], [address] [place] [id number] 0 02/13 CBC w/ auto diff MPV fL 9.5 13.4 9.1 Low FINAL Oziel FREEMAN [facility] - [place], [address] [place] [id number] 0 02/13 CBC w/ auto diff RDW % 11.4 16.1 13.70 FINAL Oziel FREEMAN [facility] - [place], [address] [place] [id number] 0 02/13 CMP Album in g/dL 3.5 5.0 3.5 FINAL Oziel Box * [place] [facility], [address] [facility] [id number] 0 02/13 CMP Alkal ine phosp hatas e U/L 36.0 125.0 75 FINAL Oziel Box * [place] [facility], [address] [facility] [id number] 0 02/13 CMP ALT/S GPT U/L 0.0 34.0 <4 Repeate d FINAL Oziel Box * [place] [facility], [address] [facility] [id number] 0 02/13 CMP AST/S GOT U/L 14.0 36.0 17 FINAL Oziel Card [place] [facility], [address] [facility] [id number] 0 02/13 CMP BUN mg/dL 7.0 17.0 18.0 High FINAL Oziel Card [place] [facility], [address] [facility] [id number] 0 02/13 CMP Calci um mg/dL 8.4 10.2 9.2 FINAL [place]iel Card [place] [facility], [address] [facility] [id number] 0 02/13 CMP Chlor vipin mmol/L 96.0 107.0 109 High FINAL Oziel Card [place] [facility], [address] [facility] [id number] 0 02/13 CMP CO2 mmol/L 22.0 30.0 [...] 96 hour stability window. FINAL Oziel Card [place] [facility], [address] [facility] [id number] 0 02/13 CMP Creat inine mg/dL 0.66 1.25 0.80 FINAL [place]iel Card [place] [facility], [address] [facility] [id number] 0 02/13 CMP GFR estim ate ml/min /1.73m ^2 76.8 GFR is calculate d using the CKD-EPI equation. FINAL Oziel Card [place] [facility], [address] [facility] [id number] 0 02/13 CMP Gluco se mg/dL 74.0 100.0 84 FINAL Oziel Box * [place] [facility], [address] [facility] [id number] 0 02/13 CMP Potas sium mmol/L 3.5 5.1 4.4 FINAL Oziel Box * [place] [facility], [address] [facility] [id number] 0 02/13 CMP Sodiu m mmol/L 137.0 145.0 137 FINAL Oziel Box * [place] [facility], [address] [facility] [id number] 0 02/13 CMP Bilir ubin, total mg/dL 0.2 1.3 0.5 FINAL Oziel Box * [place] [facility], [address] [facility] [id number] 0 02/13 CMP Total prote in g/dL 6.3 8.2 6.2 Low FINAL Oziel Box * [place] [facility], [address] [facility] [id number] 0 04/03 [facility] 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 08/14 CMP Album in g/dL 3.5 5.0 3.7 FINAL Oziel Box * [facility] [place] [facility] , [address] [facility] [id number] 0 08/14 CMP Alkal ine phosp hatas e U/L 36.0 125.0 68 FINAL Oziel Box * [facility] [place] [facility] , [address] [facility] [id number] 0 08/14 CMP ALT/S GPT U/L 0.0 34.0 10 FINAL Oziel Box * [facility] [place] [facility] , [address] [facility] [id number] 0 08/14 CMP AST/S GOT U/L 14.0 36.0 28 FINAL Oziel Box * [facility] , [address] [facility] [address] [facility] [id number] 0 08/14 CMP BUN mg/dL 7.0 17.0 25.0 High FINAL Oziel Box * [facility] , [address] [facility] [address] [facility] [id number] 0 08/14 CMP Calci um mg/dL 8.4 10.2 8.7 FINAL Oziel Box * [facility] , [address] [facility] [address] [id number] 0 08/14 CMP Chlor vipin mmol/L 96.0 107.0 109 High FINAL Oziel Box * [facility] , [address] [facility] [address] [facility] [id number] 0 08/14 CMP CO2 mmol/L 22.0 30.0 [...] hour stability window. FINAL Oziel Box * [facility] , [address] [facility] [address] [facility] [id number] 0 08/14 CMP Creat inine mg/dL 0.66 1.25 0.90 FINAL Oziel Box * [facility] , [address] [facility] [address] [facility] [id number] 0 08/14 CMP GFR estim ate ml/min /1.73m ^2 66.5 GFR is calculate d using the CKD-EPI equation. FINAL Oziel Box * [facility] , [address] [facility] [address] [id number] 0 08/14 CMP Gluco se mg/dL 74.0 100.0 95 FINAL Oziel Box * [facility] , [address] [facility] [id number] 0 08/14 CMP Potas sium mmol/L 3.5 5.1 4.5 FINAL Oziel Box * [facility] , [address] [facility] [id number] 0 08/14 CMP Sodiu m mmol/L 137.0 145.0 137 FINAL Oziel Box * [facility] , [address] [facility] [id number] 0 08/14 CMP Bilir ubin, total mg/dL 0.2 1.3 0.8 FINAL Oziel Box * [facility] , [address] [facility] [id number] 0 08/14 CMP Total prote in g/dL 6.3 8.2 6.5 FINAL Oziel Box * [facility] , [address] [facility] [id number] 08/14 CBC w/ auto diff WBC K/uL 3.0 8.9 4.7 FINAL [facility] [place] [facility] , [address] [place] [facility] [id number] 0 08/14 CBC w/ auto diff HGB g/dL 11.3 15.2 11.5 FINAL Oziel [facility] [place] [facility] , [address] [place] [facility] [id number] 0 08/14 CBC w/ auto diff PLT K/uL 113.0 364.0 211 FINAL [facility] [place] [facility] , [address] [place] [facility] [id number] 0 08/14 CBC w/ auto diff Dave # (ANC) K/uL 1.6 6.6 2.9 FINAL Oziel Box [place] [facility] , [address] [place] [id number] 0 08/14 CBC w/ auto diff Dave % % 43.0 74.0 61.3 FINAL Oziel Box [place] [facility] , [address] [place] [id number] 0 08/14 CBC w/ auto diff IG % % 0.0 0.5 0.2 FINAL Oziel Box [place] [facility] , [address] [place] [id number] 0 08/14 CBC w/ auto diff IG # K/uL 0.0 0.03 0.01 FINAL Oziel Box [place] [facility] , [address] [place] [id number] 0 08/14 CBC w/ auto diff LY % % 14.0 41.0 25.6 FINAL Oziel Box [place] [facility] , [address] [place] [id number] 0 08/14 CBC w/ auto diff MO % % 6.0 15.0 8.7 FINAL Oziel Box [place] [facility] , [address] [place] [id number] 0 08/14 CBC w/ auto diff EO % % 0.0 7.0 3.8 FINAL Oziel Box [place] [facility] , [address] [place] [id number] 0 08/14 CBC w/ auto diff BA % % 0.0 2.0 0.4 FINAL Oziel Box [place] [facility] , [address] [place] [id number] 0 08/14 CBC w/ auto diff LY # K/uL 0.4 3.6 1.2 FINAL Oziel Box [place] [facility] , [address] [place] [id number] 0 08/14 CBC w/ auto diff MO # K/uL 0.2 1.3 0.4 FINAL Oziel Box [place] [facility] , [address] [place] [id number] 0 08/14 CBC w/ auto diff EO # K/uL 0.0 0.6 0.2 FINAL Oziel Box [place] [facility] , [address] [place] [id number] 0 08/14 CBC w/ auto diff BA # K/uL 0.0 0.2 0.0 FINAL Oziel Box [place] [facility] , [address] [place] [id number] 0 08/14 CBC w/ auto diff NRBC % #/100W BC 0.0 0.2 0.0 FINAL Oziel Box [place] [facility] , [address] [place] [id number] 0 08/14 CBC w/ auto diff RBC M/uL 3.9 5.1 3.60 Low FINAL Oziel Box [place] [facility] , [address] [place] [id number] 0 08/14 CBC w/ auto diff HCT % 35.0 48.0 35.2 FINAL Oziel Box [place] [facility] , [address] [place] [id number] 0 08/14 CBC w/ auto diff MCV fL 80.0 104.0 97.8 FINAL [facility] , [address] [place] [id number] 0 08/14 CBC w/ auto diff MCH pg 26.0 35.0 31.9 FINAL [facility] , [address] [facility] [id number] 0 08/14 CBC w/ auto diff MCHC g/dL 30.0 35.0 32.7 FINAL [facility] , [address] [facility] [id number] 0 08/14 CBC w/ auto diff MPV fL 9.5 13.4 9.0 Low FINAL [facility] , [address] [facility] [id number] 0 08/14 CBC w/ auto diff RDW % 11.4 16.1 13.60 FINAL [facility]iel [facility] , [address] [facility] [id number] 0 Medications Date Name Route Dose Frequency Instructions Start Date End Date Status Baclofen Oral daily act charles Vitamin A36-Sapuu Acid Oral 500 mcg-400 mcg daily active [...] concentration must be 0.3-1.2 mg/mL.Administ er using [id number] ining equipment and through an in-line 0.22 [...]
--- OUTSIDE RECORDS SUMMARY | 2024-09-18 09:52 | XMS_ITS ---
Author Name Interface, T5Byofcau lity Address [address] [facility] [address] [address] [facility] Address [address] [facility] [address] [address] Allergies and Adverse Reactions Medication/Group Name Reaction [...] 15 MIN 04/08/2021 APPOINTMENT CHART CHECK 5 IA N 04/07/2021 APPOINTMENT OUTSIDE TEST 5 M [...] 0.6 1.3 0.7 FINAL Oziel angelo Oncology [facility], [address] [place] [address] [place] [address] [phone] Phone: () - 12/24 iSTAT creat inine panel GFR estim ate ml/min /1.73m ^2 86.7 GFR is calculate d using the CKD-EPI equation. FINAL Oziel angelo Oncology [facility], [address] [place] [address] [place] [address] [phone] Phone: () - 12/24 CMP Album in g/dL 3.2 5.2 4.3 FINAL Oziel angelo Oncology [facility], [facility] [address] [place] [address] [id number] [phone] Phone: () - 12/24 CMP Alkal ine phosp hatas e U/L 46.0 116.0 68 FINAL Oziel Tolbert a Oncology [facility], [address] [facility] [address] [place] [address] [phone] Phone: () - 12/24 CMP ALT/S GPT U/L 7.0 40.0 12 FINAL Oziel angelo [place] [address] [address] [facility] 100 [facility] [id number] 0 Phone: () - 12/24 CMP AST/S GOT U/L 13.0 40.0 19 FINAL Oziel angelo [place] [address] [address] [facility] [address] [phone] Phone: () - 12/24 CMP BUN mg/dL 9.0 23.0 17 FINAL Oziel angelo [place] [address] [address] [facility] [address] [phone] Phone: () - 12/24 CMP Calci um mg/dL 8.7 10.4 10.0 FINAL Oziel angelo [place] [address] [phone] 0 Phone: () - 12/24 CMP Chlor vipin mmol/L 96.0 114.0 107 FINAL Oziel angelo [place] [address] [phone] 0 Phone: () - 12/24 CMP CO2 [...] 96 hour stability window. FINAL Oziel angelo [facility], [facility] [address] [facility] [address] [phone] 0 Phone: () - 12/24 CMP Creat inine mg/dL 0.5 1.2 0.85 FINAL Oziel angelo [place] [address] [id number] 0 Phone: () - 12/24 CMP GFR estim ate ml/min /1.73m ^2 68.5 GFR is calculate d using the CKD-EPI equation. FINAL Oziel angelo [place] [address] [address] [facility] [address] [phone] Phone: () - 12/24 CMP Gluco se mg/dL 73.0 126.0 207 High FINAL Oziel angelo [facility], [address] [facility] [id number] 0 Phone: () - 12/24 CMP Potas sium mmol/L 3.5 5.1 4.3 FINAL Oziel angelo [facility], [address] [facility] [phone] 0 Phone: () - 12/24 CMP Sodiu m mmol/L 136.0 145.0 139 FINAL Oziel angelo [facility], [address] [facility] [id number] 0 Phone: () - 12/24 CMP Bilir ubin, total mg/dL 0.3 1.2 0.2 Low FINAL Oziel angelo [facility], [address] [place] [address] [phone] 0 Phone: () - 12/24 CMP Total prote in g/dL 5.7 8.2 7.1 FINAL Oziel angelo [facility], [address] [place] [address] [id number] [phone] Phone: () - 12/24 CBC w/ auto diff WBC K/uL 3.0 8.9 5.3 FINAL [facility], [address] [facility] d [address] [place] [id number] 0 Phone: () - 12/24 CBC w/ auto diff HGB g/dL 11.3 15.2 12.5 FINAL Oziel angelo Oncology - [place] , [facility] [address] [facility] [address] [facility] [place] [phone] 0 Phone: () - 12/24 CBC w/ auto diff PLT K/uL 113.0 364.0 212 FINAL [facility], [address] [place], [place] [address]et [facility] [address] [place] [phone] 0 Phone: () - 12/24 CBC w/ auto diff Dave # (ANC) K/uL 1.6 6.6 4.7 FINAL Oziel Box [place] [facility] - [place], [address] [place] [phone] 0 Phone: () - 12/24 CBC w/ auto diff Dave % % 43.0 74.0 88.2 High FINAL Oziel Tilleyot a Oncology - [place], [address] [place] [phone] 0 Phone: () - 12/24 CBC w/ auto diff IG % % 0.0 0.5 0.8 High FINAL Oziel Tilleyot a On[facility] - [place], [address] [place] [id number] 0 Phone: () - 12/24 CBC w/ auto diff IG # K/uL 0.0 0.03 0.04 High FINAL Oziel Tilleyot a [facility] - [place], [address] [place] [phone] 0 Phone: () - 12/24 CBC w/ auto diff LY % % 14.0 41.0 10.0 Low FINAL Oziel Tilleyot a On[facility] - [place], [address] [place] [id number] 0 Phone: () - 12/24 CBC w/ auto diff MO % % 6.0 15.0 0.8 Low FINAL Oziel Tilleyot gi Oncology - [place], [address] [place] [id number] 0 Phone: () - 12/24 CBC w/ auto diff EO % % 0.0 7.0 0.0 FINAL Oziel Tilleyot a [facility] - [place], [address] [place] [id number] 0 Phone: () - 12/24 CBC w/ auto diff BA % % 0.0 2.0 0.2 FINAL Oziel Tilleyot a On[facility] - [place], [address] [place] [id number] 0 Phone: () - 12/24 CBC w/ auto diff LY # K/uL 0.4 3.6 0.5 FINAL Oziel Tilleyot a On[facility] - [place], [address] [place] [id number] 0 Phone: () - 12/24 CBC w/ auto diff MO # K/uL 0.2 1.3 0.0 Low FINAL Oziel Tilleyot a [facility] - [place], [address] [place] [id number] 0 Phone: () - 12/24 CBC w/ auto diff EO # K/uL 0.0 0.6 0.0 FINAL Oziel Tilleyot a Oncology - [place], [address] [place] [id number] 0 Phone: () - 12/24 CBC w/ auto diff BA # K/uL 0.0 0.2 0.0 FINAL Oziel Tilleyot a Oncology - [place], [address] [place] [id number] 0 Phone: () - 12/24 CBC w/ auto diff NRBC % #/100W BC 0.0 0.2 0.0 FINAL Oziel Tilleyot a On[facility] - [place], [address] [place] [id number] 0 Phone: () - 12/24 CBC w/ auto diff RBC M/uL 3.9 5.1 3.82 Low FINAL Oziel Tilleyot a On[facility] - [place], [address] [place] [id number] 0 Phone: () - 12/24 CBC w/ auto diff HCT % 35.0 48.0 36.9 FINAL Oziel Tilleyot a On[facility] - [place], [address] [place] [id number] 0 Phone: () - 12/24 CBC w/ auto diff MCV fL 80.0 104.0 96.6 FINAL Oziel Tilleyot a On[facility] - [place], [address] [place] [id number] 0 Phone: () - 12/24 CBC w/ auto diff MCH pg 26.0 35.0 32.7 FINAL Oziel Tilleyot a Oncology - [place], [address] [place] [phone] 0 Phone: () - 12/24 CBC w/ auto diff MCHC g/dL 30.0 35.0 33.9 FINAL Oziel Tilleyot a Oncology - [place], [address] [place] [id number] 0 Phone: () - 12/24 CBC w/ auto diff MPV fL 9.5 13.4 9.6 FINAL Oziel Tilleyot a On[facility] - [place], [address] [place] [id number] 0 Phone: () - 12/24 CBC w/ auto diff RDW % 11.4 16.1 12.90 FINAL Oziel Tilleyot a Oncology - [place], [address] [place] [id number] 0 Phone: () - 01/02 CBC w/ auto diff WBC K/uL 3.0 8.9 4.4 FINAL Lia Tilleyot a Oncology - [place], [address] [place] [id number] 0 Phone: () - 01/02 CBC w/ auto diff HGB g/dL 11.3 15.2 11.7 FINAL Lia Tilleyot a Oncology - [place], [address] [place] [id number] 0 Phone: () - 01/02 CBC w/ auto diff PLT K/uL 113.0 364.0 209 FINAL Lia Tilleyot a Oncology - [place], [address] [place] [phone] 0 Phone: () - 01/02 CBC w/ auto diff Dave # (ANC) K/uL 1.6 6.6 4.0 FINAL Lia Tilleyot a Oncology - [place], [address] [place] [id number] 0 Phone: () - 01/02 CBC w/ auto diff Dave % % 43.0 74.0 91.7 High FINAL Lia Tilleyot a Oncology - [place], [address] [place] [phone] 0 Phone: () - 01/02 CBC w/ auto diff IG % % 0.0 0.5 0.7 High FINAL Lia Tilleyot a Oncology - [place], [address] [place] [id number] 0 Phone: () - 01/02 CBC w/ auto diff IG # K/uL 0.0 0.03 0.03 FINAL Lia Tilleyot a Oncology - [place], [address] [facility] [address] [place] [phone] 0 Phone: () - 01/02 CBC w/ auto diff LY % % 14.0 41.0 6.7 Low FINAL Lia Tilleyot a On[facility] - [place], [address] [facility] [address] [place] [id number] 0 Phone: () - 01/02 CBC w/ auto diff MO % % 6.0 15.0 0.7 Low FINAL Lia Tilleyot a Oncology - [place], [address] [facility] [address] [place] [id number] 0 Phone: () - 01/02 CBC w/ auto diff EO % % 0.0 7.0 0.0 FINAL Lia Tilleyot a Oncology - [place], [address] [place] [id number] 0 Phone: () - 01/02 CBC w/ auto diff BA % % 0.0 2.0 0.2 FINAL Lia Tilleyot a Oncology - [place], [address] [place] [id number] 0 Phone: () - 01/02 CBC w/ auto diff LY # K/uL 0.4 3.6 0.3 Low FINAL Lia Tilleyot a Oncology - [place], [address] [place] [id number] 0 Phone: () - 01/02 CBC w/ auto diff MO # K/uL 0.2 1.3 0.0 Low FINAL Lia Tolbert a Oncology - [place], [address] [facility] [address] [place] [id number] 0 Phone: () - 01/02 CBC w/ auto diff EO # K/uL 0.0 0.6 0.0 FINAL Lia Tolbert a Oncology - [place], [address] [facility] [address] [place] [id number] 0 Phone: () - 01/02 CBC w/ auto diff BA # K/uL 0.0 0.2 0.0 FINAL Lia Tilleyot a Oncology - [place], [address] [facility] [address] [place] [id number] 0 Phone: () - 01/02 CBC w/ auto diff NRBC % #/100W BC 0.0 0.2 0.0 FINAL Lia angelo Oncology - [place], [address] [facility] [address] [place] [id number] 0 Phone: () - 01/02 CBC w/ auto diff RBC M/uL 3.9 5.1 3.56 Low FINAL Lia Tolbert a Oncology - [place], [address] [facility] [address] [place] [id number] 0 Phone: () - 01/02 CBC w/ auto diff HCT % 35.0 48.0 34.2 Low FINAL Lia Tilleyot a Oncology - [place], [address] [facility] [address] [place] [id number] 0 Phone: () - 01/02 CBC w/ auto diff MCV fL 80.0 104.0 96.1 FINAL Lia Tilleyot a Oncology - [place], [address] [facility] [address] [place] [id number] 0 Phone: () - 01/02 CBC w/ auto diff MCH pg 26.0 35.0 32.9 FINAL Lia Tilleyot a Oncology - [place], [address] [place] [id number] 0 Phone: () - 01/02 CBC w/ auto diff MCHC g/dL 30.0 35.0 34.2 FINAL Lia angelo Oncology - [place], [address] [facility] [address] [place] [id number] 0 Phone: () - 01/02 CBC w/ auto diff MPV fL 9.5 13.4 9.5 FINAL Lia angelo Oncology - [place], [address] [facility] [address] [place] [id number] 0 Phone: () - 01/02 CBC w/ auto diff RDW % 11.4 16.1 12.80 FINAL Lia angelo Oncology - [place], [address] [facility] [address] [place] [id number] 0 Phone: () - 01/02 iSTAT creat inine panel Creat inine , iSTAT mg/dl 0.6 1.3 0.8 FINAL Lia angelo Oncology - [place], [address] [facility] [address] [place] [id number] 0 Phone: () - 01/02 iSTAT creat inine panel GFR estim ate ml/min /1.73m ^2 73.7 GFR is calculate d using the CKD-EPI equation. FINAL Lia angelo Oncology - [place], [address] [facility] [address] [place] [id number] 0 Phone: () - 01/02 CMP Album in g/dL 3.2 5.2 4.2 FINAL Lia angelo Oncology [facility], [address] [place] [id number] 0 Phone: () - 01/02 CMP Alkal ine phosp hatas e U/L 46.0 116.0 58 FINAL Lia angelo Oncology [facility], [address] [place] [id number] 0 Phone: () - 01/02 CMP ALT/S GPT U/L 7.0 40.0 13 FINAL [facility] [address] [facility] 100 [facility] [id number] 0 Phone: () - 01/02 CMP AST/S GOT U/L 13.0 40.0 20 FINAL [facility] [address] [facility] [address] [phone] Phone: () - 01/02 CMP BUN mg/dL 9.0 23.0 17 FINAL [place] [address] [address] [facility] [address] [id number] 0 Phone: () - 01/02 CMP Calci um mg/dL 8.7 10.4 10.7 High FINAL [place] [address] [id number] 0 Phone: () - 01/02 CMP Chlor vipin mmol/L 96.0 114.0 109 FINAL [place] [address] [id number] [phone] Phone: () - 01/02 CMP CO2 [...] of the 96 hour stability window. FINAL [place] [address] [id number] 0 Phone: () - 01/02 CMP Creat inine mg/dL 0.5 1.2 0.76 FINAL [place] [address] [id number] 0 Phone: () - 01/02 CMP GFR estim ate ml/min /1.73m ^2 78.4 GFR is calculate d using the CKD-EPI equation. FINAL [place] [address] [phone] 0 Phone: () - 01/02 CMP Gluco se mg/dL 73.0 126.0 122 [facility], [address] [facility] [id number] 0 Phone: () - 01/02 CMP Potas sium mmol/L 3.5 5.1 4.4 [facility], [address] [facility] [id number] 0 Phone: () - 01/02 CMP Sodiu m mmol/L 136.0 145.0 140 [facility], [address] [facility] [id number] 0 Phone: () - 01/02 CMP Bilir ubin, total mg/dL 0.3 1.2 0.3 FINAL Lia Delgado [facility], [address] [facility] [id number] 0 Phone: () - 01/02 CMP Total prote in g/dL 5.7 8.2 6.8 FINAL Liagi Delgado [facility], [address] [facility] [id number] 0 Phone: () - 01/09 Smear revie w panel CBC Smear revie w comme nts Consist ent with reporte d results FINAL Lia Delgado [facility] On[facility] - [place] , [address] [facility] [address] [place] [id number] 0 Phone: () - 01/09 CBC w/ auto diff WBC K/uL 3.0 8.9 4.8 FINAL [facility] [place], [address] [facility] [place] [id number] 0 Phone: () - 01/09 CBC w/ auto diff HGB g/dL 11.3 15.2 11.8 FINAL Lia Delgado [facility] Oncology - [place], [address] [place], [place] [address] [facility] [place] [id number] 0 Phone: () - 01/09 CBC w/ auto diff PLT K/uL 113.0 364.0 165 FINAL Liagi Tilleyot a Oncology - [place], [address] [place] [id number] 0 Phone: () - 01/09 CBC w/ auto diff Dave # (ANC) K/uL 1.6 6.6 4.4 FINAL Lia Tilleyot a Oncology - [place], [address] [place] [id number] 0 Phone: () - 01/09 CBC w/ auto diff Dave % % 43.0 74.0 91.5 High FINAL Lia Tilleyot a Oncology - [place], [address] [place] [id number] 0 Phone: () - 01/09 CBC w/ auto diff IG % % 0.0 0.5 1.5 High FINAL Lia Tilleyot a Oncology - [place], [address] [place] [id number] 0 Phone: () - 01/09 CBC w/ auto diff IG # K/uL 0.0 0.03 0.07 High FINAL Lia Tilleyot a Oncology - [place], [address] [place] [id number] 0 Phone: () - 01/09 CBC w/ auto diff LY % % 14.0 41.0 5.5 Low FINAL Lia Tilleyot a Oncology - [place], [address] [place] [id number] 0 Phone: () - 01/09 CBC w/ auto diff MO % % 6.0 15.0 1.3 Low FINAL Lia Tilleyot a Oncology - [place], [address] [place] [id number] 0 Phone: () - 01/09 CBC w/ auto diff EO % % 0.0 7.0 0.0 FINAL Lia Tilleyot a Oncology - [place], [address] [place] [id number] 0 Phone: () - 01/09 CBC w/ auto diff BA % % 0.0 2.0 0.2 FINAL Lia Tilleyot a Oncology - [place], [address] [place] [id number] 0 Phone: () - 01/09 CBC w/ auto diff LY # K/uL 0.4 3.6 0.3 Low FINAL Lia Tilleyot a Oncology - [place], [address] [place] [id number] 0 Phone: () - 01/09 CBC w/ auto diff MO # K/uL 0.2 1.3 0.1 Low FINAL Lia Tilleyot a Oncology - [place], [address] [place] [id number] 0 Phone: () - 01/09 CBC w/ auto diff EO # K/uL 0.0 0.6 0.0 FINAL Lia Tilleyot a Oncology - [place], [address] [place] [id number] 0 Phone: () - 01/09 CBC w/ auto diff BA # K/uL 0.0 0.2 0.0 FINAL Lia Tilleyot a Oncology - [place], [address] [place] [id number] 0 Phone: () - 01/09 CBC w/ auto diff NRBC % #/100W BC 0.0 0.2 0.0 FINAL Lia Tilleyot a Oncology - [place], [address] [place] [id number] 0 Phone: () - 01/09 CBC w/ auto diff RBC M/uL 3.9 5.1 3.56 Low FINAL Lia Tilleyot a Oncology - [place], [address] [place] [id number] 0 Phone: () - 01/09 CBC w/ auto diff HCT % 35.0 48.0 34.2 Low FINAL Lia Tilleyot a Oncology - [place], [address] [place] [id number] 0 Phone: () - 01/09 CBC w/ auto diff MCV fL 80.0 104.0 96.1 FINAL Lia Tilleyot a Oncology - [place], [address] [facility] [address] [place] [id number] 0 Phone: () - 01/09 CBC w/ auto diff MCH pg 26.0 35.0 33.1 FINAL Lia angelo Oncology - [place], [address] [facility] [address] [place] [id number] 0 Phone: () - 01/09 CBC w/ auto diff MCHC g/dL 30.0 35.0 34.5 FINAL Lia Tilleyot a Oncology - [place], [address] [facility] [address] [place] [id number] 0 Phone: () - 01/09 CBC w/ auto diff MPV fL 9.5 13.4 9.4 Low FINAL Lia angelo Oncology - [place], [address] [facility] [address] [place] [id number] 0 Phone: () - 01/09 CBC w/ auto diff RDW % 11.4 16.1 12.90 FINAL Lia angelo Oncology - [place], [address] [facility] [address] [place] [id number] 0 Phone: () - 01/09 CBC w/ auto diff Auto CBC comme nts Slide review to follow FINAL Lia Tolbert a Oncology - [place], [address] [facility] [address] [place] [id number] 0 Phone: () - 01/09 CMP Album in g/dL 3.2 5.2 4.2 FINAL Lia Tilley a Oncology [facility], [address] [facility] [place] [id number] 0 Phone: () - 01/09 CMP Alkal ine phosp hatas e U/L 46.0 116.0 65 FINAL Lia Tilley a Oncology [facility], [address] [place] [id number] 0 Phone: () - 01/09 CMP ALT/S GPT U/L 7.0 40.0 16 FINAL [place] [address] [address] [facility] 100 [facility] [id number] 0 Phone: () - 01/09 CMP AST/S GOT U/L 13.0 40.0 19 FINAL [facility] [address] [facility] [address] [phone] 0 Phone: () - 01/09 CMP BUN mg/dL 9.0 23.0 19 FINAL [place] [address] [address] [facility] [address] [phone] 0 Phone: () - 01/09 CMP Calci um mg/dL 8.7 10.4 10.4 FINAL [place] [address] [address] [facility] [address] [id number] 0 Phone: () - 01/09 CMP Chlor vipin mmol/L 96.0 114.0 106 FINAL [place] [address] [address] [facility] [address] [id number] 0 Phone: () - 01/09 CMP CO2 [...] 96 hour stability window. FINAL [facility], [facility] N [address] [id number] 0 Phone: () - 01/09 CMP Creat inine mg/dL 0.5 1.2 0.78 FINAL [place] [address] [id number] 0 Phone: () - 01/09 CMP GFR estim ate ml/min /1.73m ^2 76.0 GFR is calculate d using the CKD-EPI equation. FINAL [place] [address] [address] [facility] [address] [phone] 0 Phone: () - 01/09 CMP Gluco se mg/dL 73.0 126.0 129 High FINAL Lia [facility], [address] [place] [address] [id number] 0 Phone: () - 01/09 CMP Potas sium mmol/L 3.5 5.1 4.5 FINAL [facility], [address] [place] [address] [id number] 0 Phone: () - 01/09 CMP Sodiu m mmol/L 136.0 145.0 139 FINAL [facility], [address] [place] [address] [id number] 0 Phone: () - 01/09 CMP Bilir ubin, total mg/dL 0.3 1.2 0.4 FINAL [facility], [address] [facility] [address] [place] [address] [id number] 0 Phone: () - 01/09 CMP Total prote in g/dL 5.7 8.2 6.7 FINAL [facility], [address] [place] [address] [phone] 0 Phone: () - 01/09 iSTAT creat inine panel Creat inine , iSTAT mg/dl 0.6 1.3 0.7 FINAL Liagi Delgado [facility], [address] [facility] [address] [place] [address] [id number] 0 Phone: () - 01/09 iSTAT creat inine panel GFR estim ate ml/min /1.73m ^2 86.6 GFR is calculate d using the CKD-EPI equation. FINAL [facility], [address] [place] [address] [place] [address] [id number] 0 Phone: () - 01/16 iSTAT creat inine panel Creat inine , iSTAT mg/dl 0.6 1.3 0.8 FINAL [facility], [address] [place] [address] [place] [phone] 0 Phone: () - 01/16 iSTAT creat inine panel GFR estim ate ml/min /1.73m ^2 73.7 GFR is calculate d using the CKD-EPI equation. FINAL Lia Tolbert a Oncology - [place], [address] [place] [id number] 0 Phone: () - 01/16 Smear revie w panel CBC Smear revie w comme nts Consist ent with reporte d results FINAL Lia Tolbert a [facility] - [place], [address] [place] [id number] 0 Phone: () - 01/16 CBC w/ auto diff LY % % 14.0 41.0 4.0 Low FINAL Lia Tolbert a Oncology - [place], [address] [place] [id number] 0 Phone: () - 01/16 CBC w/ auto diff MO % % 6.0 15.0 1.6 Low FINAL Lia Tolbert a Oncology - [place], [address] [place] [id number] 0 Phone: () - 01/16 CBC w/ auto diff EO % % 0.0 7.0 0.0 FINAL Lia angelo Oncology - [place], [address] [place] [id number] 0 Phone: () - 01/16 CBC w/ auto diff BA % % 0.0 2.0 0.2 FINAL Lia Tolbert a [facility] - [place], [address] [place] [id number] 0 Phone: () - 01/16 CBC w/ auto diff LY # K/uL 0.4 3.6 0.2 Low FINAL Lia Tolbert a On[facility] - [place], [address] [place] [phone] 0 Phone: () - 01/16 CBC w/ auto diff MO # K/uL 0.2 1.3 0.1 Low FINAL Lai Tilleyot a [facility] - [place], [address] [place] [id number] 0 Phone: () - 01/16 CBC w/ auto diff EO # K/uL 0.0 0.6 0.0 FINAL Lia T[facility]leyot a [facility] - [place], [address] [place] [id number] 0 Phone: () - 01/16 CBC w/ auto diff BA # K/uL 0.0 0.2 0.0 FINAL Lia Tilleyot a [facility] - [place], [address] [place] [id number] 0 Phone: () - 01/16 CBC w/ auto diff NRBC % #/100W BC 0.0 0.2 0.0 FINAL Lia Tilleyot a [facility] - [place], [address] [place] [id number] 0 Phone: () - 01/16 CBC w/ auto diff RBC M/uL 3.9 5.1 3.30 Low FINAL Lia T[facility]leyot a [facility] - [place], [address] [place] [id number] 0 Phone: () - 01/16 CBC w/ auto diff HCT % 35.0 48.0 32.8 Low FINAL Lia Tilley[facility] a [facility] - [place], [address] [place] [phone] 0 Phone: () - 01/16 CBC w/ auto diff MCV fL 80.0 104.0 99.4 FINAL Lia T[facility]leyot a [facility] - [place], [address] [place] [phone] 0 Phone: () - 01/16 CBC w/ auto diff MCH pg 26.0 35.0 33.3 FINAL Lia [facility] a [facility] - [place], [address] [place] [id number] 0 Phone: () - 01/16 CBC w/ auto diff MCHC g/dL 30.0 35.0 33.5 FINAL Lia Tilleyot a [facility] - [place], [address] [place] [id number] 0 Phone: () - 01/16 CBC w/ auto diff MPV fL 9.5 13.4 9.2 Low FINAL [facility] - [place], [address] [place] [id number] 0 Phone: () - 01/16 CBC w/ auto diff RDW % 11.4 16.1 13.90 FINAL [facility] [place], [address] [place] [id number] 0 Phone: () - 01/16 CBC w/ auto diff Auto CBC comme nts Slide review to follow FINAL [facility] [place], [address] [facility] [address] [place] [id number] 0 Phone: () - 01/16 CBC w/ auto diff HGB g/dL 11.3 15.2 11.0 Low FINAL [facility] [place], [address] [facility] [address] [place] [id number] 0 Phone: () - 01/16 CBC w/ auto diff PLT K/uL 113.0 364.0 144 FINAL [facility] [place], [address] [place] [id number] 0 Phone: () - 01/16 CBC w/ auto diff Dave # (ANC) K/uL 1.6 6.6 4.2 FINAL [facility] [place], [address] [place] [id number] 0 Phone: () - 01/16 CBC w/ auto diff Dave % % 43.0 74.0 92.4 High FINAL [facility] [place], [address] [place] [id number] 0 Phone: () - 01/16 CBC w/ auto diff IG % % 0.0 0.5 1.8 High FINAL [facility], [address] [facility] [address] [facility] [place] [id number] 0 Phone: () - 01/16 CBC w/ auto diff IG # K/uL 0.0 0.03 0.08 High FINAL [facility], [address] [facility] [address] [facility] [place] [phone] 0 Phone: () - 01/16 CBC w/ auto diff WBC K/uL 3.0 8.9 4.5 FINAL Lia angelo [facility], [address] [facility] [address] [place] [id number] 0 Phone: () - 01/16 CMP Album in g/dL 3.2 5.2 3.9 FINAL [place] [address] [address] [facility] [address] [place] [address] [id number] 0 Phone: () - 01/16 CMP Alkal ine phosp hatas e U/L 46.0 116.0 62 FINAL Lia Delgado [place] [address] [id number] 0 Phone: () - 01/16 CMP ALT/S GPT U/L 7.0 40.0 19 FINAL Lia Delgado [place] [address] [id number] 0 Phone: () - 01/16 CMP AST/S GOT U/L 13.0 40.0 18 FINAL [place] [address] [address] [facility] [address] [phone] 0 Phone: () - 01/16 CMP BUN mg/dL 9.0 23.0 21 FINAL [place] [address] [address] [facility] [address] [place] [address] [id number] 0 Phone: () - 01/16 CMP Calci um mg/dL 8.7 10.4 10.3 FINAL [place] [address] [id number] 0 Phone: () - 01/16 CMP Chlor vipin mmol/L 96.0 114.0 108 FINAL Lia [place] [address] [id number] 0 Phone: () - 01/16 CMP CO2 [...] of the 96 hour stability window. FINAL [place] [address] [id number] 0 Phone: () - 01/16 CMP Creat inine mg/dL 0.5 1.2 0.78 FINAL [place] [address] [id number] 0 Phone: () - 01/16 CMP GFR estim ate ml/min /1.73m ^2 76.0 GFR is calculate d using the CKD-EPI equation. FINAL [place] [address] [id number] 0 Phone: () - 01/16 CMP Gluco se mg/dL 73.0 126.0 138 High FINAL [place] [address] [id number] 0 Phone: () - 01/16 CMP Potas sium mmol/L 3.5 5.1 4.2 FINAL [place] [address] [id number] 0 Phone: () - 01/16 CMP Sodiu m mmol/L 136.0 145.0 140 FINAL [place] [address] [id number] 0 Phone: () - 01/16 CMP Bilir ubin, total mg/dL 0.3 1.2 0.3 FINAL Lia angelo [facility] - [place], [address] [place] [id number] 0 Phone: () - 01/16 CMP Total prote in g/dL 5.7 8.2 6.3 FINAL Lia angelo [facility] - [place], [address] [place] [id number] 0 Phone: () - 01/23 Smear revie w panel CBC Smear revie w comme nts Consist ent with reporte d results FINAL Lia angelo [facility] - [place], [address] [place] [id number] 0 Phone: () - 01/23 iSTAT creat inine panel Creat inine , iSTAT mg/dl 0.6 1.3 0.8 FINAL Lia angelo [facility] - [place], [address] [place] [id number] 0 Phone: () - 01/23 iSTAT creat inine panel GFR estim ate ml/min /1.73m ^2 73.7 GFR is calculate d using the CKD-EPI equation. FINAL Lia angelo [facility] - [place], [address] [place] [id number] 0 Phone: () - 01/23 CBC w/ auto diff WBC K/uL 3.0 8.9 2.4 Low FINAL Lia angelo [facility] - [place], [address] [place] [id number] 0 Phone: () - 01/23 CBC w/ auto diff HGB g/dL 11.3 15.2 10.4 Low FINAL Lia angelo [facility] - [place], [address] [place] [id number] 0 Phone: () - 01/23 CBC w/ auto diff PLT K/uL 113.0 364.0 109 Low FINAL Lia angelo [facility] - [place], [address] [place] [id number] 0 Phone: () - 01/23 CBC w/ auto diff Dave # (ANC) K/uL 1.6 6.6 2.2 FINAL [facility] - [place], [address] [place] [id number] 0 Phone: () - 01/23 CBC w/ auto diff Dave % % 43.0 74.0 90.0 High FINAL [facility] [place], [address] [place] [id number] 0 Phone: () - 01/23 CBC w/ auto diff IG % % 0.0 0.5 0.8 High FINAL [facility] [place], [address] [place] [id number] 0 Phone: () - 01/23 CBC w/ auto diff IG # K/uL 0.0 0.03 0.02 FINAL [facility] [place], [address] [place] [id number] 0 Phone: () - 01/23 CBC w/ auto diff LY % % 14.0 41.0 7.1 Low FINAL [facility] [place], [address] [place] [id number] 0 Phone: () - 01/23 CBC w/ auto diff MO % % 6.0 15.0 2.1 Low FINAL [facility] [place], [address] [place] [id number] 0 Phone: () - 01/23 CBC w/ auto diff EO % % 0.0 7.0 0.0 FINAL [facility] [place], [address] [place] [id number] 0 Phone: () - 01/23 CBC w/ auto diff BA % % 0.0 2.0 0.0 FINAL [facility]ia [place] [facility] - [place], [address] [place] [id number] 0 Phone: () - 01/23 CBC w/ auto diff LY # K/uL 0.4 3.6 0.2 Low FINAL [facility] - [place], [address] [place] [id number] 0 Phone: () - 01/23 CBC w/ auto diff MO # K/uL 0.2 1.3 0.1 Low FINAL [facility] [place], [address] [place] [id number] 0 Phone: () - 01/23 CBC w/ auto diff EO # K/uL 0.0 0.6 0.0 FINAL [facility] [place], [address] [place] [id number] 0 Phone: () - 01/23 CBC w/ auto diff BA # K/uL 0.0 0.2 0.0 FINAL [facility] - [place], [address] [place] [id number] 0 Phone: () - 01/23 CBC w/ auto diff NRBC % #/100W BC 0.0 0.2 0.0 FINAL [facility] - [place], [address] [place] [id number] 0 Phone: () - 01/23 CBC w/ auto diff RBC M/uL 3.9 5.1 3.14 Low FINAL [facility] [place], [address] [place] [id number] 0 Phone: () - 01/23 CBC w/ auto diff HCT % 35.0 48.0 31.4 Low FINAL [facility] - [place], [address] [place] [id number] 0 Phone: () - 01/23 CBC w/ auto diff MCV fL 80.0 104.0 100.0 FINAL [facility] - [place], [address] [facility] d [address] [place] [id number] 0 Phone: () - 01/23 CBC w/ auto diff MCH pg 26.0 35.0 33.1 FINAL [facility] - [place], [address] [facility] [address] [place] [id number] 0 Phone: () - 01/23 CBC w/ auto diff MCHC g/dL 30.0 35.0 33.1 FINAL [facility] [place], [address] [facility] [address] [place] [id number] 0 Phone: () - 01/23 CBC w/ auto diff MPV fL 9.5 13.4 8.7 Low FINAL [facility] [place], [address] [facility] [address] [place] [id number] 0 Phone: () - 01/23 CBC w/ auto diff RDW % 11.4 16.1 15.00 FINAL [facility] - [place], [address] [facility] [address] [place] [id number] 0 Phone: () - 01/23 CBC w/ auto diff Auto CBC comme nts Slide review to follow FINAL [facility] [place], [address] [facility] [address] [place] [id number] 0 Phone: () - 01/23 CMP Album in g/dL 3.2 5.2 3.8 FINAL [facility] - [place], [address] [place] [id number] 0 Phone: () - 01/23 CMP Alkal ine phosp hatas e U/L 46.0 116.0 61 FINAL [facility] - [place], [address] [place] [id number] 0 Phone: () - 01/23 CMP ALT/S GPT U/L 7.0 40.0 24 FINAL [facility], [address] [facility] 100 [facility] [id number] 0 Phone: () - 01/23 CMP AST/S GOT U/L 13.0 40.0 21 FINAL [facility] [address] [facility] [address] [id number] 0 Phone: () - 01/23 CMP BUN mg/dL 9.0 23.0 22 FINAL [place] [address] [address] [facility] [address] [id number] 0 Phone: () - 01/23 CMP Calci um mg/dL 8.7 10.4 9.1 FINAL [place] [address] [id number] 0 Phone: () - 01/23 CMP Chlor vipin mmol/L 96.0 114.0 110 FINAL [place] [address] [id number] 0 Phone: () - 01/23 CMP CO2 [...] of the 96 hour stability window. FINAL [place] [address] [id number] 0 Phone: () - 01/23 CMP Creat inine mg/dL 0.5 1.2 0.74 FINAL [place] [address] [id number] 0 Phone: () - 01/23 CMP GFR estim ate ml/min /1.73m ^2 81.0 GFR is calculate d using the CKD-EPI equation. FINAL [place] [address] [address] [facility] [address] [id number] 0 Phone: () - 01/23 CMP Gluco se mg/dL 73.0 126.0 148 High FINAL [facility], [address] [place] [address] [id number] 0 Phone: () - 01/23 CMP Potas sium mmol/L 3.5 5.1 4.4 FINAL [facility] [address] [place] [address] [id number] 0 Phone: () - 01/23 CMP Sodiu m mmol/L 136.0 145.0 141 FINAL [facility] [address] [place] [address] [id number] 0 Phone: () - 01/23 CMP Bilir ubin, total mg/dL 0.3 1.2 0.3 FINAL [facility] [address] [place] [address] [id number] 0 Phone: () - 01/23 CMP Total prote in g/dL 5.7 8.2 6.1 FINAL [facility] [address] [place] [address] [id number] 0 Phone: () - 01/30 CMP Album in g/dL 3.2 5.2 4.1 FINAL [facility] [address] [place] [address] [id number] 0 Phone: () - 01/30 CMP Alkal ine phosp hatas e U/L 46.0 116.0 63 FINAL [facility], [address] [place] [address] [id number] 0 Phone: () - 01/30 CMP ALT/S GPT U/L 7.0 40.0 19 FINAL [place] [address] [place] [address] [id number] 0 Phone: () - 01/30 CMP AST/S GOT U/L 13.0 40.0 22 FINAL [place] [address] [place] [address] [id number] 0 Phone: () - 01/30 CMP BUN mg/dL 9.0 23.0 22 FINAL [place] [address] [address] [facility] [address] [place] [address] [id number] 0 Phone: () - 01/30 CMP Calci um mg/dL 8.7 10.4 9.8 FINAL [facility] [address] [facility] 100 [facility] [id number] 0 Phone: () - 01/30 CMP Chlor vipin mmol/L 96.0 114.0 111 FINAL [place] [address] [address] [facility] [address] [phone] 0 Phone: () - 01/30 CMP CO2 [...] of the 96 hour stability window. FINAL [place] [address] [address] [facility] [address] [id number] 0 Phone: () - 01/30 CMP Creat inine mg/dL 0.5 1.2 0.73 [place] [address] [address] [facility] [address] [phone] 0 Phone: () - 01/30 CMP GFR estim ate ml/min /1.73m ^2 82.3 GFR is calculate d using the CKD-EPI equation. FINAL [place] [address] [address] [facility] [address] [phone] 0 Phone: () - 01/30 CMP Gluco se mg/dL 73.0 126.0 122 FINAL [facility] [address] [facility] [address] [facility] [id number] 0 Phone: () - 01/30 CMP Potas sium mmol/L 3.5 5.1 4.8 [place] [address] [place] [address] [id number] 0 Phone: () - 01/30 CMP Sodiu m mmol/L 136.0 145.0 140 FINAL [facility], [address] [facility] [address] [facility] [id number] 0 Phone: () - 01/30 CMP Bilir ubin, total mg/dL 0.3 1.2 0.3 FINAL [facility]ia [facility], [address] [facility] [id number] 0 Phone: () - 01/30 CMP Total prote in g/dL 5.7 8.2 6.7 FINAL Lia Tilleyot a [facility], [address] [facility] [address] [facility] [id number] 0 Phone: () - 01/30 CBC w/ auto diff WBC K/uL 3.0 8.9 2.3 Low FINAL [facility] [place], [address] [place] [address] d [address] [place] [facility] [id number] 0 Phone: () - 01/30 CBC w/ auto diff HGB g/dL 11.3 15.2 11.0 Low FINAL [facility] [place], [address] [place] [address] d [address] [place] [facility] [id number] 0 Phone: () - 01/30 CBC w/ auto diff PLT K/uL 113.0 364.0 103 Low FINAL [facility] [place], [address] [place] [address] [facility] [address] [place] [id number] 0 Phone: () - 01/30 CBC w/ auto diff Dave # (ANC) K/uL 1.6 6.6 2.1 FINAL [facility] - [place], [address] [place] [address] d [address] [place] [id number] 0 Phone: () - 01/30 CBC w/ auto diff Dave % % 43.0 74.0 89.6 High FINAL [facility] - [place], [address] [place] [address] [facility] [address] [place] [id number] 0 Phone: () - 01/30 CBC w/ auto diff IG % % 0.0 0.5 0.9 High FINAL [facility] - [place], [address] [place] [id number] 0 Phone: () - 01/30 CBC w/ auto diff IG # K/uL 0.0 0.03 0.02 FINAL [facility] - [place], [address] [facility] [address] [place] [id number] 0 Phone: () - 01/30 CBC w/ auto diff LY % % 14.0 41.0 7.3 Low FINAL [facility] [place], [address] [facility] [address] [place] [id number] 0 Phone: () - 01/30 CBC w/ auto diff MO % % 6.0 15.0 2.2 Low FINAL [facility] - [place], [address] [facility] [address] [place] [id number] 0 Phone: () - 01/30 CBC w/ auto diff EO % % 0.0 7.0 0.0 FINAL [facility] - [place], [address] [facility] [address] [place] [id number] 0 Phone: () - 01/30 CBC w/ auto diff BA % % 0.0 2.0 0.0 FINAL [facility] - [place], [address] [facility] [address] [place] [id number] 0 Phone: () - 01/30 CBC w/ auto diff LY # K/uL 0.4 3.6 0.2 Low FINAL [facility] - [place], [address] [facility] [address] [place] [id number] 0 Phone: () - 01/30 CBC w/ auto diff MO # K/uL 0.2 1.3 0.1 Low FINAL [facility] - [place], [address] [place] [id number] 0 Phone: () - 01/30 CBC w/ auto diff EO # K/uL 0.0 0.6 0.0 FINAL [facility] - [place], [address] [place] [id number] 0 Phone: () - 01/30 CBC w/ auto diff BA # K/uL 0.0 0.2 0.0 FINAL Lia Tolbert a [facility] - [place], [address] [place] [id number] 0 Phone: () - 01/30 CBC w/ auto diff NRBC % #/100W BC 0.0 0.2 0.0 FINAL [facility] - [place], [address] [place] [id number] 0 Phone: () - 01/30 CBC w/ auto diff RBC M/uL 3.9 5.1 3.23 Low FINAL Lia Tolbert a [facility] - [place], [address] [place] [id number] 0 Phone: () - 01/30 CBC w/ auto diff HCT % 35.0 48.0 32.4 Low FINAL Lia Tolbert a [facility] - [place], [address] [place] [id number] 0 Phone: () - 01/30 CBC w/ auto diff MCV fL 80.0 104.0 100.3 FINAL Lia Tolbert a [facility] - [place], [address] [place] [id number] 0 Phone: () - 01/30 CBC w/ auto diff MCH pg 26.0 35.0 34.1 FINAL [facility] - [place], [address] [place] [id number] 0 Phone: () - 01/30 CBC w/ auto diff MCHC g/dL 30.0 35.0 34.0 FINAL Lia angelo [facility] - [place], [address] [place] [id number] 0 Phone: () - 01/30 CBC w/ auto diff MPV fL 9.5 13.4 9.2 Low FINAL Lia angelo [facility] - [place], [address] [place] [id number] 0 Phone: () - 01/30 CBC w/ auto diff RDW % 11.4 16.1 14.80 FINAL Lia angelo [facility] - [place], [address] [place] [id number] 0 Phone: () - 01/30 CBC w/ auto diff Auto CBC comme nts Slide review to follow FINAL Lia angelo [facility] - [place], [address] [place] [id number] 0 Phone: () - 01/30 Smear revie w panel CBC Smear revie w comme nts Consist ent with reporte d results FINAL Lia angelo [facility] - [place], [address] [place] [id number] 0 Phone: () - 01/30 iSTAT creat inine panel Creat inine , iSTAT mg/dl 0.6 1.3 0.7 FINAL Lia angelo [facility] - [place], [address] [place] [id number] 0 Phone: () - 01/30 iSTAT creat inine panel GFR estim ate ml/min /1.73m ^2 86.6 GFR is calculate d using the CKD-EPI equation. FINAL Lia angelo [facility] - [place], [address] [place] [id number] 0 Phone: () - 02/17 CMP Album in g/dL 3.2 5.2 3.9 FINAL Oziel Tolbert a [facility] - [place], [address] [place] [id number] 0 Phone: () - 02/17 CMP Alkal ine phosp hatas e U/L 46.0 116.0 57 FINAL Oziel angelo [place] [address] [address] [facility] [address] [phone] 0 Phone: () - 02/17 CMP ALT/S GPT U/L 7.0 40.0 13 FINAL Oziel angelo [place] [address] [id number] 0 Phone: () - 02/17 CMP AST/S GOT U/L 13.0 40.0 19 FINAL Oziel angelo [place] [address] [address] [facility] [address] [phone] 0 Phone: () - 02/17 CMP BUN mg/dL 9.0 23.0 13 FINAL Oziel angelo [place] [address] [id number] 0 Phone: () - 02/17 CMP Calci um mg/dL 8.7 10.4 9.3 FINAL Oziel angelo [place] [address] [address] [facility] [address] [phone] 0 Phone: () - 02/17 CMP Chlor vipin mmol/L 96.0 114.0 111 FINAL Oziel angelo [place] [address] [id number] 0 Phone: () - 02/17 CMP CO2 [...] 96 hour stability window. FINAL Oziel angelo [facility], [facility] [address] [facility] [address] [phone] 0 Phone: () - 02/17 CMP Creat inine mg/dL 0.5 1.2 0.88 FINAL Oziel angelo [place] [address] [address] [facility] [address] [id number] 0 Phone: () - 02/17 CMP GFR estim ate ml/min /1.73m ^2 65.6 GFR is calculate d using the CKD-EPI equation. FINAL Oziel angelo [facility], [facility] [address] [id number] 0 Phone: () - 02/17 CMP Gluco se mg/dL 73.0 126.0 63 Low FINAL Oziel angelo [place] [address] [id number] 0 Phone: () - 02/17 CMP Potas sium mmol/L 3.5 5.1 4.2 FINAL Oziel angelo [place] [address] [id number] 0 Phone: () - 02/17 CMP Sodiu m mmol/L 136.0 145.0 143 FINAL Oziel angelo [place] [address] [id number] 0 Phone: () - 02/17 CMP Bilir ubin, total mg/dL 0.3 1.2 0.3 FINAL Oziel angelo [place] [address] [id number] 0 Phone: () - 02/17 CMP Total prote in g/dL 5.7 8.2 6.4 FINAL Oziel angelo [place] [address] [id number] 0 Phone: () - 02/17 TSH w/ refle x to free T4 TSH uIU/ml 0.32 5.0 3.46 Test performed at [facility] on a [email or web address] Immunoass ay Analyzer that uses an immunoenz ymometric sandwich assay for analysis. Patient testing should not be performed using multiple kathi amador due to analytica l variation seen between test kathi amador. FINAL Oziel angelo [place] [address] [id number] 0 Phone: () - 02/17 CBC w/ auto diff WBC K/uL 3.0 8.9 3.7 FINAL Oziel angelo [facility], [address] [place] [id number] 0 Phone: () - 02/17 CBC w/ auto diff HGB g/dL 11.3 15.2 10.2 Low FINAL Oziel angelo [facility] - [place], [address] [place] [id number] 0 Phone: () - 02/17 CBC w/ auto diff PLT K/uL 113.0 364.0 213 FINAL Oziel angelo [facility] - [place], [address] [place] [id number] 0 Phone: () - 02/17 CBC w/ auto diff Dave # (ANC) K/uL 1.6 6.6 2.1 FINAL Oziel angelo [facility] - [place], [address] [facility] [address] [place] [id number] 0 Phone: () - 02/17 CBC w/ auto diff Dave % % 43.0 74.0 57.4 FINAL Oziel angelo [facility] - [place], [address] [facility] [address] [place] [id number] 0 Phone: () - 02/17 CBC w/ auto diff IG % % 0.0 0.5 0.8 High FINAL Oziel angelo [facility] - [place], [address] [place] [id number] 0 Phone: () - 02/17 CBC w/ auto diff IG # K/uL 0.0 0.03 0.03 FINAL Oziel angelo [facility] - [place], [address] [place] [id number] 0 Phone: () - 02/17 CBC w/ auto diff LY % % 14.0 41.0 21.7 FINAL Oziel angelo [facility] - [place], [address] [place] [id number] 0 Phone: () - 02/17 CBC w/ auto diff MO % % 6.0 15.0 18.5 High FINAL Oziel Tilleyot gi [facility] - [place], [address] [place] [id number] 0 Phone: () - 02/17 CBC w/ auto diff EO % % 0.0 7.0 1.1 FINAL Oziel angelo [facility] - [place], [address] [facility] [address] [place] [id number] 0 Phone: () - 02/17 CBC w/ auto diff BA % % 0.0 2.0 0.5 FINAL Oziel angelo [facility] - [place], [address] [facility] [address] [place] [id number] 0 Phone: () - 02/17 CBC w/ auto diff LY # K/uL 0.4 3.6 0.8 FINAL Oziel angelo [facility] - [place], [address] [facility] [address] [place] [id number] 0 Phone: () - 02/17 CBC w/ auto diff MO # K/uL 0.2 1.3 0.7 FINAL Oziel angel[facility] - [place], [address] [facility] [address] [place] [id number] 0 Phone: () - 02/17 CBC w/ auto diff EO # K/uL 0.0 0.6 0.0 FINAL Oziel angel[facility] - [place], [address] [facility] [address] [place] [id number] 0 Phone: () - 02/17 CBC w/ auto diff BA # K/uL 0.0 0.2 0.0 FINAL Oziel angel[facility] - [place], [address] [facility] [address] [place] [id number] 0 Phone: () - 02/17 CBC w/ auto diff NRBC % #/100W BC 0.0 0.2 0.0 FINAL Oziel angelo [facility] - [place], [address] [facility] [address] [place] [id number] 0 Phone: () - 02/17 CBC w/ auto diff RBC M/uL 3.9 5.1 2.96 Low FINAL Oizel Tolbert a [facility] - [place], [address] [place] [id number] 0 Phone: () - 02/17 CBC w/ auto diff HCT % 35.0 48.0 30.3 Low FINAL Oziel [facility] - [place], [address] [place] [id number] 0 Phone: () - 02/17 CBC w/ auto diff MCV fL 80.0 104.0 102.4 FINAL [facility] - [place], [address] [place] [id number] 0 Phone: () - 02/17 CBC w/ auto diff MCH pg 26.0 35.0 34.5 FINAL [facility] - [place], [address] [place] [id number] Phone: () - 02/17 CBC w/ auto diff MCHC g/dL 30.0 35.0 33.7 FINAL [facility] [place], [address] [place] [id number] 0 Phone: () - 02/17 CBC w/ auto diff MPV fL 9.5 13.4 8.5 Low FINAL [facility] [place], [address] [place] [id number] 0 Phone: () - 02/17 CBC w/ auto diff RDW % 11.4 16.1 17.40 High FINAL [facility] [place], [address] [place] [id number] 0 Phone: () - 03/17 CBC w/ auto diff WBC K/uL 3.0 8.9 4.5 FINAL [facility] [place], [address] [place] [id number] 0 Phone: () - 03/17 CBC w/ auto diff HGB g/dL 11.3 15.2 11.6 FINAL [facility] [place], [address] [place] [id number] 0 Phone: () - 03/17 CBC w/ auto diff PLT K/uL 113.0 364.0 213 FINAL [facility] [place], [address] [place] [id number] 0 Phone: () - 03/17 CBC w/ auto diff Dave # (ANC) K/uL 1.6 6.6 2.6 FINAL [facility] [place], [address] [place] [id number] 0 Phone: () - 03/17 CBC w/ auto diff Dave % % 43.0 74.0 57.9 FINAL [facility] [place], [address] [place] [id number] 0 Phone: () - 03/17 CBC w/ auto diff IG % % 0.0 0.5 0.4 FINAL [facility] - [place], [address] [place] [id number] 0 Phone: () - 03/17 CBC w/ auto diff IG # K/uL 0.0 0.03 0.02 FINAL [facility] [place], [address] [place] [id number] 0 Phone: () - 03/17 CBC w/ auto diff LY % % 14.0 41.0 22.1 FINAL [facility] - [place], [address] [place] [id number] 0 Phone: () - 03/17 CBC w/ auto diff MO % % 6.0 15.0 12.9 FINAL [facility] [place], [address] [place] [id number] 0 Phone: () - 03/17 CBC w/ auto diff EO % % 0.0 7.0 5.8 FINAL [facility] [place], [address] [place] [id number] 0 Phone: () - 03/17 CBC w/ auto diff BA % % 0.0 2.0 0.9 FINAL [facility] [place], [address] [place] [id number] 0 Phone: () - 03/17 CBC w/ auto diff LY # K/uL 0.4 3.6 1.0 FINAL [facility] [place], [address] [place] [id number] 0 Phone: () - 03/17 CBC w/ auto diff MO # K/uL 0.2 1.3 0.6 FINAL [facility] - [place], [address] [place] [id number] 0 Phone: () - 03/17 CBC w/ auto diff EO # K/uL 0.0 0.6 0.3 FINAL [facility] - [place], [address] [place] [id number] 0 Phone: () - 03/17 CBC w/ auto diff BA # K/uL 0.0 0.2 0.0 FINAL [facility] [place], [address] [place] [id number] 0 Phone: () - 03/17 CBC w/ auto diff NRBC % #/100W BC 0.0 0.2 0.0 FINAL [facility] [place], [address] [place] [id number] 0 Phone: () - 03/17 CBC w/ auto diff RBC M/uL 3.9 5.1 3.26 Low FINAL [facility] [place], [address] [place] [id number] 0 Phone: () - 03/17 CBC w/ auto diff HCT % 35.0 48.0 34.1 Low FINAL [facility] - [place], [address] [place] [id number] 0 Phone: () - 03/17 CBC w/ auto diff MCV fL 80.0 104.0 104.6 High FINAL [facility] - [place], [address] [place] [id number] 0 Phone: () - 03/17 CBC w/ auto diff MCH pg 26.0 35.0 35.6 High FINAL [facility] - [place], [address] [place] [id number] 0 Phone: () - 03/17 CBC w/ auto diff MCHC g/dL 30.0 35.0 34.0 FINAL [facility] - [place], [address] [place] [id number] 0 Phone: () - 03/17 CBC w/ auto diff MPV fL 9.5 13.4 8.6 Low FINAL [facility] - [place], [address] [place] [id number] 0 Phone: () - 03/17 CBC w/ auto diff RDW % 11.4 16.1 15.20 FINAL [facility] - [place], [address] [place] [id number] 0 Phone: () - 03/17 CMP Album in g/dL 3.2 5.2 4.1 FINAL [facility] - [place], [address] [place] [id number] 0 Phone: () - 03/17 CMP Alkal ine phosp hatas e U/L 46.0 116.0 54 FINAL [facility] - [place], [address] [place] [id number] 0 Phone: () - 03/17 CMP ALT/S GPT U/L 7.0 40.0 12 FINAL [facility] - [place], [address] [facility] [id number] 0 Phone: () - 03/17 CMP AST/S GOT U/L 13.0 40.0 20 FINAL Oziel angelo [place] [address] [address] [facility] 100 [facility] [id number] 0 Phone: () - 03/17 CMP BUN mg/dL 9.0 23.0 20 FINAL Oziel angelo [place] [address] [address] [facility] 100 [facility] [id number] 0 Phone: () - 03/17 CMP Calci um mg/dL 8.7 10.4 9.8 FINAL Oziel angelo [place] [address] [id number] 0 Phone: () - 03/17 CMP Chlor vipin mmol/L 96.0 114.0 109 FINAL [facility]iel angelo [place] [address] [id number] 0 Phone: () - 03/17 CMP CO2 [...] stability window. FINAL [facility]iel angelo [place] [address] [id number] 0 Phone: () - 03/17 CMP Creat inine mg/dL 0.5 1.2 0.90 FINAL [facility]iel angelo [place] [address] [id number] 0 Phone: () - 03/17 CMP GFR estim ate ml/min /1.73m ^2 63.8 GFR is calculate d using the CKD-EPI equation. FINAL [facility]iel angelo [place] [address] [id number] 0 Phone: () - 03/17 CMP Gluco se mg/dL 73.0 126.0 87 FINAL [facility] [address] [facility] [address] [id number] 0 Phone: () - 03/17 CMP Potas sium mmol/L 3.5 5.1 4.4 FINAL [facility] angel[facility] [address] [facility] 100 [facility] [id number] 0 Phone: () - 03/17 CMP Sodiu m mmol/L 136.0 145.0 142 FINAL [facility]iel angelo [place] [address] [address] [facility] [address] [id number] 0 Phone: () - 03/17 CMP Bilir ubin, total mg/dL 0.3 1.2 0.5 FINAL Oziel angelo [place] [address] [id number] 0 Phone: () - 03/17 CMP Total prote in g/dL 5.7 8.2 6.7 FINAL Oziel angelo [place] [address] [id number] 0 Phone: () - 03/17 TSH w/ refle x to free T4 TSH uIU/ml 0.32 5.0 3.06 Test performed at [facility] on a [email or web address] Immunoass ay Analyzer that uses an immunoenz ymometric sandwich assay for analysis. Patient testing should not be performed using multiple methodolo gies due to analytica l variation seen between test methodolo ginaun. FINAL Oziel angelo [place] [address] [id number] 0 Phone: () - 04/14 CMP Album in g/dL 3.2 5.2 4.3 FINAL [facility] angelo [place] [address] [address] [facility] [address] [id number] 0 Phone: () - 04/14 CMP Alkal ine phosp hatas e U/L 46.0 116.0 58 FINAL [facility] angelo [place] [address] [address] [facility] [address] [id number] 0 Phone: () - 04/14 CMP ALT/S GPT U/L 7.0 40.0 10 FINAL Oziel angelo [place] [address] [address] [facility] 100 [facility] [id number] 0 Phone: () - 04/14 CMP AST/S GOT U/L 13.0 40.0 21 FINAL Oziel angelo [place] [address] [address] [facility] 100 [facility] [id number] 0 Phone: () - 04/14 CMP BUN mg/dL 9.0 23.0 16 FINAL Oziel angelo [place] [address] [id number] 0 Phone: () - 04/14 CMP Calci um mg/dL 8.7 10.4 10.0 FINAL Oziel angelo [place] [address] [id number] 0 Phone: () - 04/14 CMP Chlor vipin mmol/L 96.0 114.0 109 FINAL Oziel angelo [place] [address] [id number] 0 Phone: () - 04/14 CMP CO2 [...] stability window. FINAL Oziel angelo [place] [address] [id number] 0 Phone: () - 04/14 CMP Creat inine mg/dL 0.5 1.2 0.88 FINAL Ozeil angelo [place] [address] [id number] 0 Phone: () - 04/14 CMP GFR estim ate ml/min /1.73m ^2 65.6 GFR is calculate d using the CKD-EPI equation. FINAL Oziel angelo [place] [address] [id number] 0 Phone: () - 04/14 CMP Gluco se mg/dL 73.0 126.0 92 FINAL Oziel angelo [place] [address] [facility] [id number] 0 Phone: () - 04/14 CMP Potas sium mmol/L 3.5 5.1 4.4 FINAL Oziel angelo [facility], [address] [facility] [id number] 0 Phone: () - 04/14 CMP Sodiu m mmol/L 136.0 145.0 142 FINAL Oziel angelo [facility], [address] [facility] [id number] 0 Phone: () - 04/14 CMP Bilir ubin, total mg/dL 0.3 1.2 0.5 FINAL Oziel angelo [facility], [address] [facility] [address] [facility] [id number] 0 Phone: () - 04/14 CMP Total prote in g/dL 5.7 8.2 6.9 FINAL [facility]iel angelo [facility], [address] [facility] [address] [facility] [id number] 0 Phone: () - 04/14 CBC w/ auto diff WBC K/uL 3.0 8.9 5.0 FINAL [facility] [place], [address] [facility] [id number] 0 Phone: () - 04/14 CBC w/ auto diff HGB g/dL 11.3 15.2 12.4 FINAL [facility] - [place], [address] [facility] [id number] 0 Phone: () - 04/14 CBC w/ auto diff PLT K/uL 113.0 364.0 202 FINAL [facility] - [place], [address] [facility] [place] [place] [id number] 0 Phone: () - 04/14 CBC w/ auto diff Dave # (ANC) K/uL 1.6 6.6 3.4 FINAL [facility] - [place], [address] [facility] [id number] 0 Phone: () - 04/14 CBC w/ auto diff Dave % % 43.0 74.0 67.0 FINAL [facility] [place], [address] [place] [id number] 0 Phone: () - 04/14 CBC w/ auto diff IG % % 0.0 0.5 0.2 FINAL [facility] [place], [address] [place] [id number] 0 Phone: () - 04/14 CBC w/ auto diff IG # K/uL 0.0 0.03 0.01 FINAL [facility] [place], [address] [place] [id number] 0 Phone: () - 04/14 CBC w/ auto diff LY % % 14.0 41.0 22.0 FINAL [facility] [place], [address] [place] [id number] 0 Phone: () - 04/14 CBC w/ auto diff MO % % 6.0 15.0 8.4 FINAL [facility] [place], [address] [place] [id number] 0 Phone: () - 04/14 CBC w/ auto diff EO % % 0.0 7.0 2.0 FINAL [facility] - [place], [address] [place] [id number] 0 Phone: () - 04/14 CBC w/ auto diff BA % % 0.0 2.0 0.4 FINAL [facility] [place], [address] [place] [id number] 0 Phone: () - 04/14 CBC w/ auto diff LY # K/uL 0.4 3.6 1.1 FINAL [facility] [place], [address] [place] [id number] 0 Phone: () - 04/14 CBC w/ auto diff MO # K/uL 0.2 1.3 0.4 FINAL [facility] - [place], [address] [place] [id number] 0 Phone: () - 04/14 CBC w/ auto diff EO # K/uL 0.0 0.6 0.1 FINAL [facility] - [place], [address] [place] [id number] 0 Phone: () - 04/14 CBC w/ auto diff BA # K/uL 0.0 0.2 0.0 FINAL [facility] - [place], [address] [place] [id number] 0 Phone: () - 04/14 CBC w/ auto diff NRBC % #/100W BC 0.0 0.2 0.0 FINAL [facility] - [place], [address] [place] [id number] 0 Phone: () - 04/14 CBC w/ auto diff RBC M/uL 3.9 5.1 3.58 Low FINAL [facility] - [place], [address] [place] [id number] 0 Phone: () - 04/14 CBC w/ auto diff HCT % 35.0 48.0 36.8 FINAL [facility] - [place], [address] [place] [id number] 0 Phone: () - 04/14 CBC w/ auto diff MCV fL 80.0 104.0 102.8 FINAL [facility] - [place], [address] [place] [id number] 0 Phone: () - 04/14 CBC w/ auto diff MCH pg 26.0 35.0 34.6 FINAL [facility] - [place], [address] [place] [id number] 0 Phone: () - 04/14 CBC w/ auto diff MCHC g/dL 30.0 35.0 33.7 FINAL [facility] - [place], [facility] [address] [facility] [address] [place] [id number] 0 Phone: () - 04/14 CBC w/ auto diff MPV fL 9.5 13.4 9.4 Low FINAL [facility] [place], [facility] [address] [facility] [address] [place] [id number] 0 Phone: () - 04/14 CBC w/ auto diff RDW % 11.4 16.1 12.10 FINAL [facility] - [place], [address] [place] [address] d [address] [place] [id number] 0 Phone: () - 04/14 TSH w/ refle x to free T4 TSH uIU/ml 0.32 5.0 0.79 Test performed at [facility] on a [email or web address] Immunoass ay Analyzer that uses an immunoenz ymometric sandwich assay for analysis. Patient testing should not be performed using multiple methodolo ginaun due to analytica l variation seen between test methodolo gies. FINAL [facility] - [place], [address] [place] [id number] 0 Phone: () - 04/14 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 04/30 UA Micro scopi c WBC (ua) 0.0 2.0 21-50 Abnor mal FINAL [facility] - [place], [address] [place] [address] d [address] [place] [id number] 0 Phone: () - 04/30 UA Micro scopi c RBC (ua) 0.0 2.0 3-5 Abnor mal FINAL [facility] [place], [facility] [address] [facility] [address] [place] [id number] 0 Phone: () - 04/30 UA Micro scopi c Epith elial cells (ua) Moderat e 6-10 Abnor mal FINAL [facility] [place], [facility] [address] [place] [id number] 0 Phone: () - 04/30 UA Micro scopi c Bacte aniya (ua) Few Abnor mal FINAL [facility] - [place], [address] [place] [id number] 0 Phone: () - 04/30 UA Micro scopi c Mucus (ua) Negativ e FINAL [facility] [place], [address] [place] [id number] 0 Phone: () - 04/30 UA Micro scopi c Casts , urine None FINAL [facility] [place], [address] [place] [id number] 0 Phone: () - 04/30 UA Micro scopi c Cryst als (ua) None FINAL [facility] [place], [address] [place] [id number] 0 Phone: () - 04/30 UA Micro scopi c UA comme nt 1 Micro Positiv e-Cultu re Ordered Microsc opic perform ed on un-spun urine FINAL [facility] [place], [address] [place] [id number] 0 Phone: () - 04/30 Color (ua) Yellow FINAL [facility] [place], [address] [place] [id number] 0 Phone: () - 04/30 Appea serena (ua) Cloudy Abnor mal FINAL [facility] [place], [address] [place] [id number] 0 Phone: () - 04/30 Gluco se (ua), qual Negativ e FINAL [facility] [place], [address] [place] [id number] 0 Phone: () - 04/30 Bilir ubin (ua) Negativ e FINAL [facility] [place], [address] [place] [id number] 0 Phone: () - 04/30 Urina lysis , aceto ne or keton e rodriguez s measu remen t Negativ e FINAL [facility] [place], [address] [place] [id number] 0 Phone: () - 04/30 Speci fic gravi ty (ua) 1.005 1.02 1.020 FINAL [facility] [place], [address] [place] [id number] 0 Phone: () - 04/30 Blood (ua) 3+-Larg e Abnor mal FINAL [facility] [place], [address] [place] [id number] 0 Phone: () - 04/30 pH (ua) 5.0 8.0 6.0 FINAL [facility] - [place], [address] [place] [id number] 0 Phone: () - 04/30 Prote in (ua) 1+ Abnor mal FINAL [facility] [place], [address] [place] [id number] 0 Phone: () - 04/30 Urobi linog en (ua) 0.2 1.0 0.2 FINAL [facility] - [place], [address] [place] [id number] 0 Phone: () - 04/30 Nitri te (ua) Negativ e FINAL [facility] [place], [address] [place] [id number] 0 Phone: () - 04/30 Leuko cyte peter ase (ua), qual 2+-Mode rate Abnor mal FINAL [facility] [place], [address] [place] [id number] 0 Phone: () - 04/30 UA comme nt 1 Dipstic k Positiv e-Micro Ordered FINAL [facility] - [place], [address] [place] [id number] 0 Phone: () - 04/30 Urine cultu re panel Final repor t, urine cultu re SEE RESULTS BELOW SOURCE: Urine VoidBacte aniya Identific ation in Isolate by Culture:5 0,000-100 ,000 CFU/mL of multiple organisms , probable contamina ntsTest Performed by:[facility] [address] - [facility] [place], [place] [address]Uzhh e : FINAL Oziel Box 05/28 CBC w/ auto diff WBC K/uL 3.0 8.9 6.9 FINAL [facility] angel[facility] - [place], [address] [place] [id number] 0 Phone: () - 05/28 CBC w/ auto diff HGB g/dL 11.3 15.2 13.0 FINAL [facility] - [place], [address] [place] [id number] 0 Phone: () - 05/28 CBC w/ auto diff PLT K/uL 113.0 364.0 183 FINAL [facility] angel[facility] - [place], [address] [place] [id number] 0 Phone: () - 05/28 CBC w/ auto diff Dave # (ANC) K/uL 1.6 6.6 6.0 FINAL [facility] angel[facility] - [place], [address] [place] [id number] 0 Phone: () - 05/28 CBC w/ auto diff Dave % % 43.0 74.0 86.6 High FINAL [facility] - [place], [address] [place] [id number] 0 Phone: () - 05/28 CBC w/ auto diff IG % % 0.0 0.5 0.4 FINAL [facility] - [place], [address] [place] [id number] 0 Phone: () - 05/28 CBC w/ auto diff IG # K/uL 0.0 0.03 0.03 FINAL [facility] - [place], [address] [place] [id number] 0 Phone: () - 05/28 CBC w/ auto diff LY % % 14.0 41.0 9.1 Low FINAL [facility] - [place], [address] [place] [id number] 0 Phone: () - 05/28 CBC w/ auto diff MO % % 6.0 15.0 3.5 Low FINAL [facility] - [place], [address] [place] [id number] 0 Phone: () - 05/28 CBC w/ auto diff EO % % 0.0 7.0 0.1 FINAL [facility] - [place], [address] [place] [id number] 0 Phone: () - 05/28 CBC w/ auto diff BA % % 0.0 2.0 0.3 FINAL [facility] - [place], [address] [place] [id number] 0 Phone: () - 05/28 CBC w/ auto diff LY # K/uL 0.4 3.6 0.6 FINAL [facility] - [place], [address] [place] [id number] 0 Phone: () - 05/28 CBC w/ auto diff MO # K/uL 0.2 1.3 0.2 FINAL [facility] - [place], [address] [place] [id number] 0 Phone: () - 05/28 CBC w/ auto diff EO # K/uL 0.0 0.6 0.0 FINAL [facility] angel[facility] - [place], [address] [place] [id number] 0 Phone: () - 05/28 CBC w/ auto diff BA # K/uL 0.0 0.2 0.0 FINAL [facility] angel[facility] - [place], [address] [place] [id number] 0 Phone: () - 05/28 CBC w/ auto diff NRBC % #/100W BC 0.0 0.2 0.0 FINAL [facility] angel[facility] - [place], [address] [place] [id number] 0 Phone: () - 05/28 CBC w/ auto diff RBC M/uL 3.9 5.1 3.83 Low FINAL [facility] angel[facility] - [place], [address] [place] [id number] 0 Phone: () - 05/28 CBC w/ auto diff HCT % 35.0 48.0 38.6 FINAL [facility] angel[facility] - [place], [address] [place] [id number] 0 Phone: () - 05/28 CBC w/ auto diff MCV fL 80.0 104.0 100.8 FINAL [facility] angel[facility] - [place], [address] [place] [id number] 0 Phone: () - 05/28 CBC w/ auto diff MCH pg 26.0 35.0 33.9 FINAL [facility] angel[facility] - [place], [address] [place] [id number] 0 Phone: () - 05/28 CBC w/ auto diff MCHC g/dL 30.0 35.0 33.7 FINAL [facility] - [place], [address] [place] [id number] 0 Phone: () - 05/28 CBC w/ auto diff MPV fL 9.5 13.4 9.0 Low FINAL [facility] [address] [facility] [address] [facility] [place] [id number] 0 Phone: () - 05/28 CBC w/ auto diff RDW % 11.4 16.1 12.10 FINAL [facility] [address] [facility] [address] [facility] [id number] 0 Phone: () - 05/28 CMP Alkal ine phosp hatas e U/L 46.0 116.0 45 Low FINAL Oziel angelo [place] [address] [place] [id number] 0 Phone: () - 05/28 CMP ALT/S GPT U/L 7.0 40.0 26 FINAL Oziel angelo [place] [address] [place] [address] [id number] 0 Phone: () - 05/28 CMP AST/S GOT U/L 13.0 40.0 24 FINAL Oziel angelo [place] [address] [address] [facility] [address] [id number] 0 Phone: () - 05/28 CMP BUN mg/dL 9.0 23.0 18 FINAL Oziel angelo [place] [address] [address] [facility] [address] [id number] 0 Phone: () - 05/28 CMP Calci um mg/dL 8.7 10.4 9.8 FINAL Oziel angelo [place] [address] [facility] [address] [id number] 0 Phone: () - 05/28 CMP Chlor vipin mmol/L 96.0 114.0 108 FINAL Oziel angelo [place] [address] [facility] [address] [id number] 0 Phone: () - 05/28 CMP CO2 [...] stability window. FINAL Oziel angelo [place] [address] [id number] 0 Phone: () - 05/28 CMP Creat inine mg/dL 0.5 1.2 0.98 FINAL Oziel angelo [address] [id number] 0 Phone: () - 05/28 CMP GFR estim ate ml/min /1.73m ^2 61.2 GFR is calculate d using the CKD-EPI equation. FINAL Oziel angelo [address] [id number] 0 Phone: () - 05/28 CMP Gluco se mg/dL 73.0 126.0 111 FINAL Oziel angelo [address] [id number] 0 Phone: () - 05/28 CMP Potas sium mmol/L 3.5 5.1 4.5 FINAL Oziel angelo [address] [id number] 0 Phone: () - 05/28 CMP Sodiu m mmol/L 136.0 145.0 144 FINAL Oziel angelo [address] [id number] 0 Phone: () - 05/28 CMP Bilir ubin, total mg/dL 0.3 1.2 0.4 FINAL Oziel angelo [address] [id number] 0 Phone: () - 05/28 CMP Total prote in g/dL 5.7 8.2 6.3 FINAL Oziel angelo [place] [address] [id number] 0 Phone: () - 05/28 CMP Album in g/dL 3.2 5.2 4.2 FINAL Oziel angelo [address] [facility] [id number] 0 Phone: () - 05/28 TSH w/ refle x to free T4 TSH uIU/ml 0.32 5.0 1.08 Test performed at [facility] on a [employer] 2000 Immunoass ay Analyzer that uses an immunoenz ymometric sandwich assay for analysis. Patient testing should not be performed using multiple methodolo ginaun due to analytica l variation seen between test methodolo ginaun. FINAL Oziel angelo On[facility] [address] [facility] [id number] 0 Phone: () - 05/28 Speci men Sourc e Oral FINAL Oziel Box 05/28 HSV 1, PCR Negativ e FINAL Oziel Box 05/28 HSV 2, PCR Negativ e --------- --------- -ADDITION AL INFORMATI ON------- --------- ---This test was developed and its performan ce character isticsdet ermined by [facility] in a manner consisten t with CLIAratascadero state hospitali rements. This test has not been cleared or approved bythe U.S. Food and Drug Administr ation.Farrah t Performed by:[facility] Laborator [facility] [place] [id number] Director: Kenneth Alvarenga M.D. Ph.D.; CLIA# [id number] 2 FINAL Oziel Box 05/30 [facility] [place] See attache hughes 07/02 CMP Album in g/dL 3.2 5.2 4.2 FINAL Oziel angelo [place] [address] [address] [facility] [address] [place] [address] [id number] [phone] Phone: () - 07/02 CMP Alkal ine phosp hatas e U/L 46.0 116.0 52 FINAL Oziel angelo [facility] [address] [facility] [id number] 0 Phone: () - 07/02 CMP ALT/S GPT U/L 7.0 40.0 18 FINAL Oziel angelo Oncology [facility] [address] [facility] [id number] 0 Phone: () - 07/02 CMP AST/S GOT U/L 13.0 40.0 22 FINAL Oziel agnelo [facility] [address] [id number] 0 Phone: () - 07/02 CMP BUN mg/dL 9.0 23.0 23 FINAL Oziel angelo [place] [address] [id number] 0 Phone: () - 07/02 CMP Calci um mg/dL 8.7 10.4 9.9 FINAL Oziel angelo [place] [address] [address] [facility] [address] [id number] 0 Phone: () - 07/02 CMP Chlor vipin mmol/L 96.0 114.0 110 FINAL Oziel angelo [place] [address] [id number] 0 Phone: () - 07/02 CMP CO2 [...] stability window. FINAL Oziel angelo [place] [address] [id number] 0 Phone: () - 07/02 CMP Creat inine mg/dL 0.5 1.2 1.02 FINAL Oziel angelo [place] [address] [address] [facility] [address] [id number] 0 Phone: () - 07/02 CMP GFR estim ate ml/min /1.73m ^2 58.3 Low GFR is calculate d using the CKD-EPI equation. FINAL Oziel angelo [place] [address] [id number] 0 Phone: () - 07/02 CMP Gluco se mg/dL 73.0 126.0 72 Low FINAL Oziel angelo [place] [address] [address] [facility] [address] [facility] [id number] 0 Phone: () - 07/02 CMP Potas sium mmol/L 3.5 5.1 4.2 FINAL Oziel angelo Oncology [facility], [address] [facility] [id number] 0 Phone: () - 07/02 CMP Sodiu m mmol/L 136.0 145.0 145 FINAL Oziel angelo On[facility], [address] [facility] [id number] 0 Phone: () - 07/02 CMP Bilir ubin, total mg/dL 0.3 1.2 0.5 FINAL Oziel angelo [facility], [address] [facility] [address] [facility] [id number] 0 Phone: () - 07/02 CMP Total prote in g/dL 5.7 8.2 6.5 FINAL Oziel angelo [facility], [address] [facility] [id number] 0 Phone: () - 07/02 CBC w/ auto diff WBC K/uL 3.0 8.9 5.0 FINAL Oziel angelo [facility] - [place], [address] [facility] [id number] 0 Phone: () - 07/02 CBC w/ auto diff HGB g/dL 11.3 15.2 12.6 FINAL Oziel angelo [facility] - [place], [address] [facility] [id number] 0 Phone: () - 07/02 CBC w/ auto diff PLT K/uL 113.0 364.0 232 FINAL Oziel angelo [facility] - [place], [address] [facility] [place] [id number] 0 Phone: () - 07/02 CBC w/ auto diff Dave # (ANC) K/uL 1.6 6.6 3.2 FINAL Oziel angelo [facility] - [place], [address] [facility] [place] [id number] 0 Phone: () - 07/02 CBC w/ auto diff Dave % % 43.0 74.0 63.5 FINAL Oziel Tilleyot a [facility] - [place], [address] [place] [id number] 0 Phone: () - 07/02 CBC w/ auto diff IG % % 0.0 0.5 0.2 FINAL Oziel Tilleyot a [facility] - [place], [address] [place] [id number] 0 Phone: () - 07/02 CBC w/ auto diff IG # K/uL 0.0 0.03 0.01 FINAL Oziel Tilleyot a [facility] - [place], [address] [place] [id number] 0 Phone: () - 07/02 CBC w/ auto diff LY % % 14.0 41.0 24.1 FINAL Oziel Tilleyot a [facility] - [place], [address] [place] [id number] 0 Phone: () - 07/02 CBC w/ auto diff MO % % 6.0 15.0 9.4 FINAL Oziel Tilleyot a [facility] - [place], [address] [place] [id number] 0 Phone: () - 07/02 CBC w/ auto diff EO % % 0.0 7.0 2.2 FINAL Oziel Tilleyot a [facility] - [place], [address] [place] [id number] 0 Phone: () - 07/02 CBC w/ auto diff BA % % 0.0 2.0 0.6 FINAL Oziel Tilleyot a [facility] - [place], [address] [place] [id number] 0 Phone: () - 07/02 CBC w/ auto diff LY # K/uL 0.4 3.6 1.2 FINAL Oziel Tilleyot a [facility] - [place], [address] [place] [id number] 0 Phone: () - 07/02 CBC w/ auto diff MO # K/uL 0.2 1.3 0.5 FINAL Oziel Tilleyot a [facility] - [place], [address] [place] [id number] 0 Phone: () - 07/02 CBC w/ auto diff EO # K/uL 0.0 0.6 0.1 FINAL Oziel Tilleyot a [facility] - [place], [address] [place] [id number] 0 Phone: () - 07/02 CBC w/ auto diff BA # K/uL 0.0 0.2 0.0 FINAL Oziel Tilleyot a [facility] - [place], [address] [place] [id number] 0 Phone: () - 07/02 CBC w/ auto diff NRBC % #/100W BC 0.0 0.2 0.0 FINAL Oziel Tilleyot a [facility] - [place], [address] [place] [id number] 0 Phone: () - 07/02 CBC w/ auto diff RBC M/uL 3.9 5.1 3.86 Low FINAL Oziel Tilleyot gi [facility] - [place], [address] [place] [id number] 0 Phone: () - 07/02 CBC w/ auto diff HCT % 35.0 48.0 37.7 FINAL Oziel Tilleyot a [facility] - [place], [address] [place] [id number] 0 Phone: () - 07/02 CBC w/ auto diff MCV fL 80.0 104.0 97.7 FINAL Oziel Tilleyot a [facility] - [place], [address] [place] [id number] 0 Phone: () - 07/02 CBC w/ auto diff MCH pg 26.0 35.0 32.6 FINAL Oziel Tilleyot a [facility] - [place], [address] [place] [id number] 0 Phone: () - 07/02 CBC w/ auto diff MCHC g/dL 30.0 35.0 33.4 FINAL Oziel angelo [facility] - [place], [address] [facility] [address] [facility] [place] [id number] 0 Phone: () - 07/02 CBC w/ auto diff MPV fL 9.5 13.4 9.0 Low FINAL Oziel angelo [facility] - [place], [address] [facility] [address] [facility] [place] [id number] 0 Phone: () - 07/02 CBC w/ auto diff RDW % 11.4 16.1 13.10 FINAL Oziel angelo [facility] - [place], [address] [facility] [address] [facility] [place] [id number] 0 Phone: () - 07/02 T4, free panel T4, free ng/dL 0.7 1.8 0.86 Test performed at [facility] on a [employer] 2000 Immunoass ay Analyzer that uses an immunoenz ymometric sandwich assay for analysis. Patient testing should not be performed using multiple methodolo gies due to analytica l variation seen between test methodolo gies. FINAL Oziel angelo Oncology [facility], [address] [facility] [address] [facility] [id number] 0 Phone: () - 07/02 TSH w/ refle x to free T4 TSH uIU/ml 0.32 5.0 6.12 High Test performed at [facility] on a [email or web address] Immunoass ay Analyzer that uses an immunoenz ymometric sandwich assay for analysis. Patient testing should not be performed using multiple methodolo gies due to analytica l variation seen between test methodolo gies. FINAL Oziel angelo Oncology [facility], [address] [facility] [id number] 0 Phone: () - 07/30 CBC w/ auto diff WBC K/uL 3.0 8.9 6.0 FINAL Oziel angelo [facility] - [place], [address] [facility] [address] [facility] [place] [id number] 0 Phone: () - 07/30 CBC w/ auto diff HGB g/dL 11.3 15.2 11.2 Low FINAL Oziel Box [place] [facility] - [place], [address] [place] [id number] 0 Phone: () - 07/30 CBC w/ auto diff PLT K/uL 113.0 364.0 220 FINAL Oziel Tilleyot a [facility] - [place], [address] [place] [id number] 0 Phone: () - 07/30 CBC w/ auto diff Dave # (ANC) K/uL 1.6 6.6 5.0 FINAL Oziel Tilleyot a [facility] - [place], [address] [place] [id number] 0 Phone: () - 07/30 CBC w/ auto diff Dave % % 43.0 74.0 84.4 High FINAL Oziel Tilleyot a [facility] - [place], [address] [place] [id number] 0 Phone: () - 07/30 CBC w/ auto diff IG % % 0.0 0.5 0.2 FINAL Oziel Tilleyot a [facility] - [place], [address] [place] [id number] 0 Phone: () - 07/30 CBC w/ auto diff IG # K/uL 0.0 0.03 0.01 FINAL Oziel Tilleyot a [facility] - [place], [address] [place] [id number] 0 Phone: () - 07/30 CBC w/ auto diff LY % % 14.0 41.0 10.4 Low FINAL Oziel Tilleyot a [facility] - [place], [address] [place] [id number] 0 Phone: () - 07/30 CBC w/ auto diff MO % % 6.0 15.0 4.4 Low FINAL Oziel Tilleyot a [facility] - [place], [address] [place] [id number] 0 Phone: () - 07/30 CBC w/ auto diff EO % % 0.0 7.0 0.3 FINAL Oziel Tilleyot a [facility] - [place], [address] [place] [id number] 0 Phone: () - 07/30 CBC w/ auto diff BA % % 0.0 2.0 0.3 FINAL Oziel Tilleyot a [facility] - [place], [address] [place] [id number] 0 Phone: () - 07/30 CBC w/ auto diff LY # K/uL 0.4 3.6 0.6 FINAL Oziel Tilleyot a [facility] - [place], [address] [place] [id number] 0 Phone: () - 07/30 CBC w/ auto diff MO # K/uL 0.2 1.3 0.3 FINAL Oziel Tilleyot a [facility] - [place], [address] [place] [id number] 0 Phone: () - 07/30 CBC w/ auto diff EO # K/uL 0.0 0.6 0.0 FINAL Oziel Tilleyot a [facility] - [place], [address] [place] [id number] 0 Phone: () - 07/30 CBC w/ auto diff BA # K/uL 0.0 0.2 0.0 FINAL Oziel Tilleyot a [facility] - [place], [address] [place] [id number] 0 Phone: () - 07/30 CBC w/ auto diff NRBC % #/100W BC 0.0 0.2 0.0 FINAL Oziel Tilleyot a [facility] - [place], [address] [place] [id number] 0 Phone: () - 07/30 CBC w/ auto diff RBC M/uL 3.9 5.1 3.39 Low FINAL Oziel Tilleyot a [facility] - [place], [address] [place] [id number] 0 Phone: () - 07/30 CBC w/ auto diff HCT % 35.0 48.0 34.0 Low FINAL Oziel angelo [facility] - [place], [address] [place] [id number] 0 Phone: () - 07/30 CBC w/ auto diff MCV fL 80.0 104.0 100.3 FINAL Oziel angelo [facility] - [place], [address] [place] [id number] 0 Phone: () - 07/30 CBC w/ auto diff MCH pg 26.0 35.0 33.0 FINAL Oziel angelo [facility] - [place], [address] [place] [id number] 0 Phone: () - 07/30 CBC w/ auto diff MCHC g/dL 30.0 35.0 32.9 FINAL Oziel angelo [facility] - [place], [address] [place] [id number] 0 Phone: () - 07/30 CBC w/ auto diff MPV fL 9.5 13.4 9.0 Low FINAL Oziel angelo [facility] - [place], [address] [place] [id number] 0 Phone: () - 07/30 CBC w/ auto diff RDW % 11.4 16.1 14.60 FINAL Oziel angelo [facility] - [place], [address] [place] [id number] 0 Phone: () - 07/30 TSH w/ refle x to free T4 TSH uIU/ml 0.32 5.0 4.12 Test performed at [facility] on a [employer] 2000 Immunoass ay Analyzer that uses an immunoenz ymometric sandwich assay for analysis. Patient testing should not be performed using multiple methodolo ginaun due to analytica l variation seen between test methodolo ginaun. FINAL Oziel angelo [facility] - [place], [address] [place] [id number] 0 Phone: () - 07/30 CMP Album in g/dL 3.2 5.2 4.3 FINAL Oziel angelo [facility], [address] [facility] [id number] 0 Phone: () - 07/30 CMP Alkal ine phosp hatas e U/L 46.0 116.0 66 FINAL Oziel angelo [facility], [address] [facility] 100 [facility] [id number] 0 Phone: () - 07/30 CMP ALT/S GPT U/L 7.0 40.0 15 FINAL Oziel angelo [facility] [address] [facility] 100 [facility] [id number] 0 Phone: () - 07/30 CMP AST/S GOT U/L 13.0 40.0 22 FINAL Oziel angelo [facility] [address] [facility] 100 [facility] [id number] 0 Phone: () - 07/30 CMP BUN mg/dL 9.0 23.0 18 FINAL Oziel angelo [place] [address] [address] [facility] 100 [facility] [id number] 0 Phone: () - 07/30 CMP Calci um mg/dL 8.7 10.4 9.7 FINAL Oziel angelo [place] [address] [address] [facility] [address] [id number] 0 Phone: () - 07/30 CMP Chlor vipin mmol/L 96.0 114.0 110 FINAL Oziel angelo [facility] [address] [facility] [address] [id number] 0 Phone: () - 07/30 CMP CO2 [...] 96 hour stability window. FINAL Oziel angelo [facility], [address] [facility] [id number] 0 Phone: () - 07/30 CMP Creat inine mg/dL 0.5 1.2 0.94 FINAL Oziel angelo [facility] [address] [id number] 0 Phone: () - 07/30 CMP GFR estim ate ml/min /1.73m ^2 64.3 GFR is calculate d using the CKD-EPI equation. FINAL Oziel angelo [place] [address] [id number] 0 Phone: () - 07/30 CMP Gluco se mg/dL 73.0 126.0 108 FINAL Oziel angelo [facility] [address] [id number] 0 Phone: () - 07/30 CMP Potas sium mmol/L 3.5 5.1 4.6 FINAL Oziel angelo [facility] [address] [id number] 0 Phone: () - 07/30 CMP Sodiu m mmol/L 136.0 145.0 143 FINAL Oziel angelo [place] [address] [id number] 0 Phone: () - 07/30 CMP Bilir ubin, total mg/dL 0.3 1.2 0.3 FINAL Oziel angelo [place] [address] [id number] 0 Phone: () - 07/30 CMP Total prote in g/dL 5.7 8.2 6.4 FINAL Oziel angelo [place] [address] [id number] 0 Phone: () - 07/30 Hepat itis C antib taylor panel HCV Ab, S Negativ e Signal-to -cutoff ratio is <1.00.Farrah t Performed by:[facility] [place] [address] [id number] Director: Kenneth Alvarenga M.D. Ph.D.; CLIA# [id number] FINAL Oziel Box 08/27 TSH w/ refle x to free T4 TSH uIU/ml 0.32 5.0 6.32 High Test performed at [facility] on a [email or web address] Immunoass ay Analyzer that uses an immunoenz ymometric sandwich assay for analysis. Patient testing should not be performed using multiple kathi amador due to analytica l variation seen between test methodharley amador. FINAL Oizel angelo [facility] - [place], [address] [place] [id number] 0 Phone: () - 08/27 CBC w/ auto diff WBC K/uL 3.0 8.9 4.4 FINAL Oziel angelo [facility] - [place], [address] [place] [id number] 0 Phone: () - 08/27 CBC w/ auto diff HGB g/dL 11.3 15.2 10.5 Low FINAL Oziel angelo [facility] - [place], [address] [place] [id number] 0 Phone: () - 08/27 CBC w/ auto diff PLT K/uL 113.0 364.0 226 FINAL Oziel angelo [facility] - [place], [address] [place] [id number] 0 Phone: () - 08/27 CBC w/ auto diff Dave # (ANC) K/uL 1.6 6.6 2.5 FINAL Oziel angelo [facility] - [place], [address] [place] [id number] 0 Phone: () - 08/27 CBC w/ auto diff Dave % % 43.0 74.0 56.5 FINAL Oziel angelo [facility] - [place], [address] [place] [id number] 0 Phone: () - 08/27 CBC w/ auto diff IG % % 0.0 0.5 0.2 FINAL Oziel angelo [facility] - [place], [address] [place] [id number] 0 Phone: () - 08/27 CBC w/ auto diff IG # K/uL 0.0 0.03 0.01 FINAL Oziel angelo [facility] - [place], [address] [place] [id number] 0 Phone: () - 08/27 CBC w/ auto diff LY % % 14.0 41.0 29.6 FINAL Oziel angelo [facility] - [place], [address] [place] [id number] 0 Phone: () - 08/27 CBC w/ auto diff MO % % 6.0 15.0 9.3 FINAL Oziel angelo [facility] - [place], [address] [place] [id number] 0 Phone: () - 08/27 CBC w/ auto diff EO % % 0.0 7.0 3.9 FINAL Oziel angelo [facility] - [place], [address] [place] [id number] 0 Phone: () - 08/27 CBC w/ auto diff BA % % 0.0 2.0 0.5 FINAL Oziel angelo [facility] - [place], [address] [place] [id number] 0 Phone: () - 08/27 CBC w/ auto diff LY # K/uL 0.4 3.6 1.3 FINAL Oziel angelo [facility] - [place], [address] [place] [id number] 0 Phone: () - 08/27 CBC w/ auto diff MO # K/uL 0.2 1.3 0.4 FINAL Oziel angelo [facility] - [place], [address] [place] [id number] 0 Phone: () - 08/27 CBC w/ auto diff EO # K/uL 0.0 0.6 0.2 FINAL Oziel angelo [facility] - [place], [address] [place] [id number] 0 Phone: () - 08/27 CBC w/ auto diff BA # K/uL 0.0 0.2 0.0 FINAL Oziel Tilleyot a [facility] - [place], [address] [place] [id number] 0 Phone: () - 08/27 CBC w/ auto diff NRBC % #/100W BC 0.0 0.2 0.0 FINAL Oziel Tilley[facility] a [facility] - [place], [address] [place] [id number] 0 Phone: () - 08/27 CBC w/ auto diff RBC M/uL 3.9 5.1 3.17 Low FINAL Oziel T[facility]ley[place] a [facility] - [place], [address] [place] [id number] 0 Phone: () - 08/27 CBC w/ auto diff HCT % 35.0 48.0 32.0 Low FINAL Oziel Tilley[facility] a [facility] - [place], [address] [place] [id number] 0 Phone: () - 08/27 CBC w/ auto diff MCV fL 80.0 104.0 100.9 FINAL Oziel Tilley[facility] a [facility] - [place], [address] [place] [id number] 0 Phone: () - 08/27 CBC w/ auto diff MCH pg 26.0 35.0 33.1 FINAL Oziel T[facility]ley[place] a [facility] - [place], [address] [place] [id number] 0 Phone: () - 08/27 CBC w/ auto diff MCHC g/dL 30.0 35.0 32.8 FINAL Oziel T[facility]ley[place] a [facility] - [place], [address] [place] [id number] 0 Phone: () - 08/27 CBC w/ auto diff MPV fL 9.5 13.4 9.1 Low FINAL Oziel T[facility]ley[facility] a [facility] - [place], [address] [place] [id number] 0 Phone: () - 08/27 CBC w/ auto diff RDW % 11.4 16.1 13.80 FINAL Oziel Tilleyot a [facility] - [place], [address] [facility] [place] [id number] 0 Phone: () - 08/27 CMP Album in g/dL 3.2 5.2 4.0 FINAL Oziel angelo [facility], [address] [place] [address] [id number] 0 Phone: () - 08/27 CMP Alkal ine phosp hatas e U/L 46.0 116.0 71 FINAL Oziel angelo [facility] [address] [place] [address] [id number] 0 Phone: () - 08/27 CMP ALT/S GPT U/L 7.0 40.0 11 FINAL Oziel angelo [place] [address] [address] [facility] [address] [id number] 0 Phone: () - 08/27 CMP AST/S GOT U/L 13.0 40.0 18 FINAL Oziel angelo [place] [address] [address] [facility] [address] [id number] 0 Phone: () - 08/27 CMP BUN mg/dL 9.0 23.0 16 FINAL Oziel angelo [facility] [address] [facility] [address] [id number] 0 Phone: () - 08/27 CMP Calci um mg/dL 8.7 10.4 9.5 FINAL Oziel angelo [facility] [address] [facility] [address] [id number] 0 Phone: () - 08/27 CMP Chlor vipin mmol/L 96.0 114.0 110 FINAL Oziel angelo [facility], [address] [facility] [address] [address] [phone] 0 Phone: () - 08/27 CMP CO2 [...] 96 hour stability window. FINAL Oziel angelo [facility] [id number] 0 Phone: () - 08/27 CMP Creat inine mg/dL 0.5 1.2 0.84 FINAL Oziel angelo [address] [id number] 0 Phone: () - 08/27 CMP GFR estim ate ml/min /1.73m ^2 73.5 GFR is calculate d using the CKD-EPI equation. FINAL Oziel angelo [address] [id number] 0 Phone: () - 08/27 CMP Gluco se mg/dL 73.0 126.0 84 FINAL Oziel angelo [address] [id number] 0 Phone: () - 08/27 CMP Potas sium mmol/L 3.5 5.1 4.4 FINAL Oziel angelo [address] [id number] 0 Phone: () - 08/27 CMP Sodiu m mmol/L 136.0 145.0 142 FINAL Oziel angelo [address] [id number] 0 Phone: () - 08/27 CMP Bilir ubin, total mg/dL 0.3 1.2 0.3 FINAL Oziel angelo [address] [id number] 0 Phone: () - 08/27 CMP Total prote in g/dL 5.7 8.2 6.1 FINAL Oziel angelo [address] [id number] 0 Phone: () - 08/27 T4, free panel T4, free ng/dL 0.7 1.8 0.69 Low Test performed at [facility] on a [email or web address] Immuno[employer] ay Analyzer that uses an immunoenz ymometric sandwich assay for analysis. Patient testing should not be performed using multiple methodharley amador due to analytica l variation seen between test methodharley amador. FINAL Oziel angelo [place] [address] [place] [id number] 0 Phone: () - 09/26 TSH w/ refle x to free T4 TSH uIU/ml 0.32 5.0 1.33 Test performed at [facility] on a [employer] 2000 Immunoass ay Analyzer that uses an immunoenz ymometric sandwich assay for analysis. Patient testing should not be performed using multiple methodolo gies due to analytica l variation seen between test methodolo gies. FINAL Oziel angelo [address] [id number] 0 Phone: () - 09/26 CMP Album in g/dL 3.2 5.2 4.3 FINAL Oziel Tolbert [address] [id number] 0 Phone: () - 09/26 CMP Alkal ine phosp hatas e U/L 46.0 116.0 65 FINAL Oziel angelo [address] [id number] 0 Phone: () - 09/26 CMP ALT/S GPT U/L 7.0 40.0 8 FINAL Oziel angelo [place] [address] [id number] 0 Phone: () - 09/26 CMP AST/S GOT U/L 13.0 40.0 17 FINAL Ozile angelo [place] [address] [id number] 0 Phone: () - 09/26 CMP BUN mg/dL 9.0 23.0 21 FINAL Oziel angelo [place] [address] [address] [facility] [address] [id number] 0 Phone: () - 09/26 CMP Calci um mg/dL 8.7 10.4 9.2 FINAL Oziel angelo [place] [address] [id number] 0 Phone: () - 09/26 CMP Chlor vipin mmol/L 96.0 114.0 111 FINAL Oziel angelo [place] [address] [address] [facility] [address] [id number] 0 Phone: () - 09/26 CMP CO2 [...] 96 hour stability window. FINAL Oziel angelo [facility], [address] [id number] 0 Phone: () - 09/26 CMP Creat inine mg/dL 0.5 1.2 0.79 FINAL Oziel angelo [place] [address] [id number] 0 Phone: () - 09/26 CMP GFR estim ate ml/min /1.73m ^2 79.1 GFR is calculate d using the CKD-EPI equation. FINAL Oziel angelo [place] [address] [id number] 0 Phone: () - 09/26 CMP Gluco se mg/dL 73.0 126.0 83 FINAL Oziel angelo [place] [address] [id number] 0 Phone: () - 09/26 CMP Potas sium mmol/L 3.5 5.1 4.4 FINAL Oziel angelo [place] [address] [id number] 0 Phone: () - 09/26 CMP Sodiu m mmol/L 136.0 145.0 143 FINAL Oziel angelo [facility] [address] [facility] [address] [id number] 0 Phone: () - 09/26 CMP Bilir ubin, total mg/dL 0.3 1.2 0.3 FINAL Oziel angelo [facility] [address] [id number] 0 Phone: () - 09/26 CMP Total prote in g/dL 5.7 8.2 6.3 FINAL Oziel angelo [facility] [place], [address] [place] [id number] 0 Phone: () - 09/26 CBC w/ auto diff WBC K/uL 3.0 8.9 4.1 FINAL Oziel angelo [facility] - [place], [address] [place] [id number] 0 Phone: () - 09/26 CBC w/ auto diff HGB g/dL 11.3 15.2 11.3 FINAL Oziel angelo [facility] - [place], [address] [place] [id number] 0 Phone: () - 09/26 CBC w/ auto diff PLT K/uL 113.0 364.0 210 FINAL Oziel angel[facility] - [place], [address] [place] [id number] 0 Phone: () - 09/26 CBC w/ auto diff Dave # (ANC) K/uL 1.6 6.6 2.4 FINAL Oziel angelo [facility] - [place], [address] [place] [id number] 0 Phone: () - 09/26 CBC w/ auto diff Dave % % 43.0 74.0 58.2 FINAL Oziel angelo [facility] - [place], [address] [place] [id number] 0 Phone: () - 09/26 CBC w/ auto diff IG % % 0.0 0.5 0.2 FINAL Oziel angelo [facility] - [place], [address] [place] [id number] 0 Phone: () - 09/26 CBC w/ auto diff IG # K/uL 0.0 0.03 0.01 FINAL Oziel angelo [facility] - [place], [address] [place] [id number] 0 Phone: () - 09/26 CBC w/ auto diff LY % % 14.0 41.0 27.0 FINAL Oziel Tolbert a [facility] - [place], [address] [place] [id number] 0 Phone: () - 09/26 CBC w/ auto diff MO % % 6.0 15.0 10.5 FINAL Oziel Tilleyot a [facility] - [place], [address] [place] [id number] 0 Phone: () - 09/26 CBC w/ auto diff EO % % 0.0 7.0 3.6 FINAL Oziel Tilleyot a [facility] - [place], [address] [place] [id number] 0 Phone: () - 09/26 CBC w/ auto diff BA % % 0.0 2.0 0.5 FINAL Oziel Tilleyot a [facility] - [place], [address] [place] [id number] 0 Phone: () - 09/26 CBC w/ auto diff LY # K/uL 0.4 3.6 1.1 FINAL Oziel Tilleyot a [facility] - [place], [address] [place] [id number] 0 Phone: () - 09/26 CBC w/ auto diff MO # K/uL 0.2 1.3 0.4 FINAL Oziel Tilleyot a [facility] - [place], [address] [place] [id number] 0 Phone: () - 09/26 CBC w/ auto diff EO # K/uL 0.0 0.6 0.2 FINAL Oziel Tilleyot a [facility] - [place], [address] [place] [id number] 0 Phone: () - 09/26 CBC w/ auto diff BA # K/uL 0.0 0.2 0.0 FINAL Oziel Tilleyot a [facility] - [place], [address] [place] [id number] 0 Phone: () - 09/26 CBC w/ auto diff NRBC % #/100W BC 0.0 0.2 0.0 FINAL Oziel [place] [facility] - [place], [address] [place] [id number] 0 Phone: () - 09/26 CBC w/ auto diff RBC M/uL 3.9 5.1 3.38 Low FINAL Oziel Tolbert a [facility] - [place], [address] [place] [id number] 0 Phone: () - 09/26 CBC w/ auto diff HCT % 35.0 48.0 34.3 Low FINAL Oziel Tolbert a [facility] - [place], [address] [place] [id number] 0 Phone: () - 09/26 CBC w/ auto diff MCV fL 80.0 104.0 101.5 FINAL Oziel angel[facility] - [place], [address] [place] [id number] 0 Phone: () - 09/26 CBC w/ auto diff MCH pg 26.0 35.0 33.4 FINAL Oziel angelo [facility] - [place], [address] [place] [id number] 0 Phone: () - 09/26 CBC w/ auto diff MCHC g/dL 30.0 35.0 32.9 FINAL Oziel angel[facility] - [place], [address] [place] [id number] 0 Phone: () - 09/26 CBC w/ auto diff MPV fL 9.5 13.4 8.9 Low FINAL Oziel angel[facility] - [place], [address] [place] [id number] 0 Phone: () - 09/26 CBC w/ auto diff RDW % 11.4 16.1 12.60 FINAL Oziel Tolbert a [facility] - [place], [address] [place] [id number] 0 Phone: () - 10/24 T4, free panel T4, free ng/dL 0.7 1.8 1.62 Test performed at [facility] on a [employer] 2000 Immunoass ay Analyzer that uses an immunoenz ymometric sandwich assay for analysis. Patient testing should not be performed using multiple kathi amador due to analytica l variation seen between test kathi amador. FINAL [place] [address] [id number] 0 Phone: () - 10/24 CMP Album in g/dL 3.2 5.2 4.3 FINAL [place] [address] [id number] 0 Phone: () - 10/24 CMP Alkal ine phosp hatas e U/L 46.0 116.0 [address] [id number] 0 Phone: () - 10/24 CMP ALT/S GPT U/L 7.0 40.0 12 FINAL [place] [address] [id number] 0 Phone: () - 10/24 CMP AST/S GOT U/L 13.0 40.0 22 FINAL [place] [address] [id number] 0 Phone: () - 10/24 CMP BUN mg/dL 9.0 23.0 16 FINAL [place] [address] [id number] 0 Phone: () - 10/24 CMP Calci um mg/dL 8.7 10.4 9.7 FINAL [place] [address] [id number] 0 Phone: () - 10/24 CMP Chlor vipin mmol/L 96.0 114.0 110 FINAL [place] [address] [id number] 0 Phone: () - 10/24 CMP CO2 [...] 96 hour stability window. FINAL Lia Delgado [place] [address] [id number] 0 Phone: () - 10/24 CMP Creat inine mg/dL 0.5 1.2 0.83 FINAL Lia [address] [id number] 0 Phone: () - 10/24 CMP GFR estim ate ml/min /1.73m ^2 74.5 GFR is calculate d using the CKD-EPI equation. FINAL [address] [id number] 0 Phone: () - 10/24 CMP Gluco se mg/dL 73.0 126.0 [address] [id number] 0 Phone: () - 10/24 CMP Potas sium mmol/L 3.5 5.1 4.[address] [id number] 0 Phone: () - 10/24 CMP Sodiu m mmol/L 136.0 145.0 [address] [id number] 0 Phone: () - 10/24 CMP Bilir ubin, total mg/dL 0.3 1.2 0.[address] [id number] 0 Phone: () - 10/24 CMP Total prote in g/dL 5.7 8.2 6.4 FINAL [place] [address] [id number] 0 Phone: () - 10/24 TSH w/ refle x to free T4 TSH uIU/ml 0.32 5.0 0.05 Low Test performed at [facility] on a [employer] 2000 Immunoass ay Analyzer that uses an immunoenz ymometric sandwich assay for analysis. Patient testing should not be performed using multiple kathi amador due to analytica l variation seen between test kathi amador. FINAL Lia Tilley a [facility] - [place], [address] [place] [id number] 0 Phone: () - 10/24 CBC w/ auto diff WBC K/uL 3.0 8.9 5.5 FINAL Lia Delgado [facility] - [place], [address] [place] [id number] 0 Phone: () - 10/24 CBC w/ auto diff HGB g/dL 11.3 15.2 12.0 FINAL Lia Tilley a [facility] - [place], [address] [place] [id number] 0 Phone: () - 10/24 CBC w/ auto diff PLT K/uL 113.0 364.0 211 FINAL Lia Tilley a [facility] - [place], [address] [place] [id number] 0 Phone: () - 10/24 CBC w/ auto diff Dave # (ANC) K/uL 1.6 6.6 3.4 FINAL [facility] [place], [address] [place] [id number] 0 Phone: () - 10/24 CBC w/ auto diff Dave % % 43.0 74.0 62.4 FINAL Lia Delgado [facility] - [place], [address] [place] [id number] 0 Phone: () - 10/24 CBC w/ auto diff IG % % 0.0 0.5 1.1 High FINAL Lia Delgado [facility] - [place], [address] [place] [id number] 0 Phone: () - 10/24 CBC w/ auto diff IG # K/uL 0.0 0.03 0.06 High FINAL Lia Tilleyot a [facility] - [place], [address] [place] [id number] 0 Phone: () - 10/24 CBC w/ auto diff LY % % 14.0 41.0 22.2 FINAL Lia Tilleyot a [facility] - [place], [address] [place] [id number] 0 Phone: () - 10/24 CBC w/ auto diff MO % % 6.0 15.0 10.1 FINAL iLa Tilleyot a [facility] - [place], [address] [place] [id number] 0 Phone: () - 10/24 CBC w/ auto diff EO % % 0.0 7.0 3.8 FINAL Lia Tilleyot a [facility] - [place], [address] [place] [id number] 0 Phone: () - 10/24 CBC w/ auto diff BA % % 0.0 2.0 0.4 FINAL Lia Tilleyot a [facility] - [place], [address] [place] [id number] 0 Phone: () - 10/24 CBC w/ auto diff LY # K/uL 0.4 3.6 1.2 FINAL Lia Tilley[facility] a [facility] - [place], [address] [place] [id number] 0 Phone: () - 10/24 CBC w/ auto diff MO # K/uL 0.2 1.3 0.6 FINAL Lia T[facility]leyot a [facility] - [place], [address] [place] [id number] 0 Phone: () - 10/24 CBC w/ auto diff EO # K/uL 0.0 0.6 0.2 FINAL Lia Tilleyot a [facility] - [place], [address] [place] [id number] 0 Phone: () - 10/24 CBC w/ auto diff BA # K/uL 0.0 0.2 0.0 FINAL Lia Tilleyot a [facility] - [place], [address] [place] [id number] 0 Phone: () - 10/24 CBC w/ auto diff NRBC % #/100W BC 0.0 0.2 0.0 FINAL Lia Tilleyot gi [facility] - [place], [address] [place] [id number] 0 Phone: () - 10/24 CBC w/ auto diff RBC M/uL 3.9 5.1 3.62 Low FINAL Lia Tolbert a [facility] - [place], [address] [facility] [address] [place] [id number] 0 Phone: () - 10/24 CBC w/ auto diff HCT % 35.0 48.0 35.7 FINAL Lia angelo [facility] - [place], [address] [facility] [address] [place] [id number] 0 Phone: () - 10/24 CBC w/ auto diff MCV fL 80.0 104.0 98.6 FINAL Lia angelo [facility] - [place], [address] [facility] [address] [place] [id number] 0 Phone: () - 10/24 CBC w/ auto diff MCH pg 26.0 35.0 33.1 FINAL Lia Tolbert a [facility] - [place], [address] [place] [id number] 0 Phone: () - 10/24 CBC w/ auto diff MCHC g/dL 30.0 35.0 33.6 FINAL Lia Tilleyot a [facility] - [place], [address] [place] [id number] 0 Phone: () - 10/24 CBC w/ auto diff MPV fL 9.5 13.4 9.1 Low FINAL Lia Tilleyot a [facility] - [place], [address] [place] [id number] 0 Phone: () - 10/24 CBC w/ auto diff RDW % 11.4 16.1 12.20 FINAL Lia angelo [facility] - [place], [address] [place] [id number] 0 Phone: () - 11/21 TSH w/ refle x to free T4 TSH uIU/ml 0.32 5.0 0.16 Low Test performed at [facility] on a [email or web address] Immunoass ay Analyzer that uses an immunoenz ymometric sandwich assay for analysis. Patient testing should not be performed using multiple methodolo marjorie due to analytica l variation seen between test methodharley amador. FINAL Lia angelo [facility] - [place], [address] [place] [id number] 0 Phone: () - 11/21 CBC w/ auto diff WBC K/uL 3.0 8.9 4.1 FINAL Lia angelo [facility] - [place], [address] [facility] [address] [place] [id number] 0 Phone: () - 11/21 CBC w/ auto diff HGB g/dL 11.3 15.2 11.8 FINAL Lia angelo [facility] - [place], [address] [facility] [address] [place] [id number] 0 Phone: () - 11/21 CBC w/ auto diff PLT K/uL 113.0 364.0 223 FINAL Lia angelo [facility] - [place], [address] [facility] [address] [place] [id number] 0 Phone: () - 11/21 CBC w/ auto diff Dave # (ANC) K/uL 1.6 6.6 2.3 FINAL Lia angelo [facility] - [place], [address] [place] [id number] 0 Phone: () - 11/21 CBC w/ auto diff Dave % % 43.0 74.0 56.3 FINAL Lia angelo [facility] - [place], [address] [place] [id number] 0 Phone: () - 11/21 CBC w/ auto diff IG % % 0.0 0.5 0.2 FINAL Lia angelo [facility] - [place], [address] [facility] [address] [place] [id number] 0 Phone: () - 11/21 CBC w/ auto diff IG # K/uL 0.0 0.03 0.01 FINAL Lia angelo [facility] - [place], [address] [address] [facility] [address] [place] [id number] 0 Phone: () - 11/21 CBC w/ auto diff LY % % 14.0 41.0 29.0 FINAL Lia angelo [facility] - [place], [address] [facility] [address] [place] [id number] 0 Phone: () - 11/21 CBC w/ auto diff MO % % 6.0 15.0 10.4 FINAL Lia angelo [facility] - [place], [address] [facility] [address] [place] [id number] 0 Phone: () - 11/21 CBC w/ auto diff EO % % 0.0 7.0 3.9 FINAL Lia angelo [facility] - [place], [address] [facility] [address] [place] [id number] 0 Phone: () - 11/21 CBC w/ auto diff BA % % 0.0 2.0 0.2 FINAL Lia angelo [facility] - [place], [address] [facility] [address] [place] [id number] 0 Phone: () - 11/21 CBC w/ auto diff LY # K/uL 0.4 3.6 1.2 FINAL Lia Tolbert a [facility] - [place], [address] [facility] [address] [place] [id number] 0 Phone: () - 11/21 CBC w/ auto diff MO # K/uL 0.2 1.3 0.4 FINAL Lia Tolbert a [facility] - [place], [address] [place] [id number] 0 Phone: () - 11/21 CBC w/ auto diff EO # K/uL 0.0 0.6 0.2 FINAL Lia Tolbert a [facility] - [place], [address] [place] [id number] 0 Phone: () - 11/21 CBC w/ auto diff BA # K/uL 0.0 0.2 0.0 FINAL Lia Tolbert a [facility] - [place], [address] [place] [id number] 0 Phone: () - 11/21 CBC w/ auto diff NRBC % #/100W BC 0.0 0.2 0.0 FINAL Lia Tolbert a [facility] - [place], [address] [place] [id number] 0 Phone: () - 11/21 CBC w/ auto diff RBC M/uL 3.9 5.1 3.69 Low FINAL Lia Tolbert a [facility] - [place], [address] [place] [id number] 0 Phone: () - 11/21 CBC w/ auto diff HCT % 35.0 48.0 35.6 FINAL Lia Tolbert a [facility] - [place], [address] [place] [id number] 0 Phone: () - 11/21 CBC w/ auto diff MCV fL 80.0 104.0 96.5 FINAL Lia Tolbert a [facility] - [place], [address] [place] [id number] 0 Phone: () - 11/21 CBC w/ auto diff MCH pg 26.0 35.0 32.0 FINAL Lia Tolbert a [facility] - [place], [address] [place] [id number] 0 Phone: () - 11/21 CBC w/ auto diff MCHC g/dL 30.0 35.0 33.1 FINAL Lia angelo [facility] - [place], [address] [facility] [address] [facility] [place] [id number] 0 Phone: () - 11/21 CBC w/ auto diff MPV fL 9.5 13.4 9.0 Low FINAL Lia angelo [facility] - [place], [address] [facility] [address] [facility] [place] [id number] 0 Phone: () - 11/21 CBC w/ auto diff RDW % 11.4 16.1 12.40 FINAL Lia angelo [facility] - [place], [address] [facility] [address] [facility] [place] [id number] 0 Phone: () - 11/21 T4, free panel T4, free ng/dL 0.7 1.8 1.13 Test performed at [facility] on a [email or web address] Immunoass ay Analyzer that uses an immunoenz ymometric sandwich assay for analysis. Patient testing should not be performed using multiple methodharley amador due to analytica l variation seen between test methodhalrey amador. [facility]AL [facility] [address] [facility] [address] [facility] [place] [address] [id number] 0 Phone: () - 11/21 CMP Album in g/dL 3.2 5.2 4.1 [facility]AL [facility], [address] [place] [address] [place] [id number] 0 Phone: () - 11/21 CMP Alkal ine phosp hatas e U/L 46.0 116.0 52 FINAL Lia [facility], [facility] [address] [place] [address] [id number] 0 Phone: () - 11/21 CMP ALT/S GPT U/L 7.0 40.0 17 FINAL [facility] [address] [place] [address] [id number] 0 Phone: () - 11/21 CMP AST/S GOT U/L 13.0 40.0 24 FINAL [facility], [address] [place] [address] [id number] 0 Phone: () - 11/21 CMP BUN mg/dL 9.0 23.0 14 FINAL Lia [facility] [address] [facility] 100 [facility] [id number] 0 Phone: () - 11/21 CMP Calci um mg/dL 8.7 10.4 9.3 FINAL Lia [facility] [address] [facility] 100 [facility] [id number] 0 Phone: () - 11/21 CMP Chlor vipin mmol/L 96.0 114.0 111 [place] [address] [address] 100 [facility] [id number] 0 Phone: () - 11/21 CMP CO2 [...] of the 96 hour stability window. FINAL [place] [address] [id number] 0 Phone: () - 11/21 CMP Creat inine mg/dL 0.5 1.2 0.79 [place] [address] [id number] 0 Phone: () - 11/21 CMP GFR estim ate ml/min /1.73m ^2 79.1 GFR is calculate d using the CKD-EPI equation. FINAL [facility], [facility] [address] [facility] [id number] 0 Phone: () - 11/21 CMP Gluco se mg/dL 73.0 126.0 86 [place] [address] [address] [facility] [address] [facility] [id number] 0 Phone: () - 11/21 CMP Potas sium mmol/L 3.5 5.1 4.5 [place] [address] [address] [facility] [address] [id number] 0 Phone: () - 11/21 CMP Sodiu m mmol/L 136.0 145.0 144 FINAL Lia Tilley gi Oncology [facility], [address] [facility] [id number] 0 Phone: () - 11/21 CMP Bilir ubin, total mg/dL 0.3 1.2 0.3 FINAL Lia Tilley gi Oncology [facility], [address] [facility] [id number] 0 Phone: () - 11/21 CMP Total prote in g/dL 5.7 8.2 6.2 FINAL Lia Tilley gi [facility], [address] [facility] [id number] 0 Phone: () - 12/19 CBC w/ auto diff WBC K/uL 3.0 8.9 4.9 FINAL Oziel angelo [facility] - [place], [address] [facility] [id number] 0 Phone: () - 12/19 CBC w/ auto diff HGB g/dL 11.3 15.2 11.8 FINAL Oziel Tilleyot a [facility] - [place], [address] [place] [id number] 0 Phone: () - 12/19 CBC w/ auto diff PLT K/uL 113.0 364.0 218 FINAL Oziel angelo [facility] - [place], [address] [place] [id number] 0 Phone: () - 12/19 CBC w/ auto diff Dave # (ANC) K/uL 1.6 6.6 2.7 FINAL Oziel Tilleyot a [facility] - [place], [address] [place] [id number] 0 Phone: () - 12/19 CBC w/ auto diff Dave % % 43.0 74.0 55.3 FINAL Oziel Tilleyot a [facility] - [place], [address] [place] [id number] 0 Phone: () - 12/19 CBC w/ auto diff IG % % 0.0 0.5 0.2 FINAL Oziel Tilleyot a [facility] - [place], [address] [place] [id number] 0 Phone: () - 12/19 CBC w/ auto diff IG # K/uL 0.0 0.03 0.01 FINAL Oziel Tilleyot a [facility] - [place], [address] [place] [id number] 0 Phone: () - 12/19 CBC w/ auto diff LY % % 14.0 41.0 30.6 FINAL Oziel Tilleyot a [facility] - [place], [address] [place] [id number] 0 Phone: () - 12/19 CBC w/ auto diff MO % % 6.0 15.0 9.3 FINAL Oziel Tilleyot a [facility] - [place], [address] [place] [id number] 0 Phone: () - 12/19 CBC w/ auto diff EO % % 0.0 7.0 4.0 FINAL Oziel Tilleyot a [facility] - [place], [address] [place] [id number] 0 Phone: () - 12/19 CBC w/ auto diff BA % % 0.0 2.0 0.6 FINAL Oziel Tillyeot a [facility] - [place], [address] [place] [id number] 0 Phone: () - 12/19 CBC w/ auto diff LY # K/uL 0.4 3.6 1.5 FINAL Oziel Tilleyot a [facility] - [place], [address] [place] [id number] 0 Phone: () - 12/19 CBC w/ auto diff MO # K/uL 0.2 1.3 0.5 FINAL Oziel Tilleyot a [facility] - [place], [address] [place] [id number] 0 Phone: () - 12/19 CBC w/ auto diff EO # K/uL 0.0 0.6 0.2 FINAL Oziel Tilleyot a [facility] - [place], [address] [place] [id number] 0 Phone: () - 12/19 CBC w/ auto diff BA # K/uL 0.0 0.2 0.0 FINAL Oziel Tilleyot a [facility] - [place], [address] [place] [id number] 0 Phone: () - 12/19 CBC w/ auto diff NRBC % #/100W BC 0.0 0.2 0.0 FINAL Oziel Tilleyot gi [facility] - [place], [address] [place] [id number] 0 Phone: () - 12/19 CBC w/ auto diff RBC M/uL 3.9 5.1 3.68 Low FINAL Oziel Tilleyot gi [facility] - [place], [address] [place] [id number] 0 Phone: () - 12/19 CBC w/ auto diff HCT % 35.0 48.0 35.3 FINAL Oziel angelo [facility] - [place], [address] [place] [id number] 0 Phone: () - 12/19 CBC w/ auto diff MCV fL 80.0 104.0 95.9 FINAL Oziel angelo [facility] - [place], [address] [place] [id number] 0 Phone: () - 12/19 CBC w/ auto diff MCH pg 26.0 35.0 32.1 FINAL Oziel Tilleyot gi [facility] - [place], [address] [place] [id number] 0 Phone: () - 12/19 CBC w/ auto diff MCHC g/dL 30.0 35.0 33.4 FINAL Oziel Tilleyot a [facility] - [place], [address] [place] [id number] 0 Phone: () - 12/19 CBC w/ auto diff MPV fL 9.5 13.4 9.1 Low FINAL [facility] [place], [address] [facility] [address] [place] [id number] 0 Phone: () - 12/19 CBC w/ auto diff RDW % 11.4 16.1 13.30 FINAL Oziel angelo [facility] - [facility] [place], [address] [facility] [address] [place] [id number] 0 Phone: () - 12/19 TSH w/ refle x to free T4 TSH uIU/ml 0.32 5.0 2.75 Test performed at [facility] on a [email or web address] Immunoass ay Analyzer that uses an immunoenz ymometric sandwich assay for analysis. Patient testing should not be performed using multiple methodolo gies due to analytica l variation seen between test methodolo gies. FINAL Oziel angelo [place] [address] [address] [place] [address] [id number] 0 Phone: () - 12/19 CMP Album in g/dL 3.2 5.2 4.0 FINAL Oziel angelo [place] [address] [address] [facility] [id number] 0 Phone: () - 12/19 CMP Alkal ine phosp hatas e U/L 46.0 116.0 58 FINAL Oziel angelo [place] [address] [address] [facility] [address] [facility] [address] [facility] [id number] 0 Phone: () - 12/19 CMP ALT/S GPT U/L 7.0 40.0 13 FINAL Oziel angelo [place] [address] [place] [address] [id number] 0 Phone: () - 12/19 CMP AST/S GOT U/L 13.0 40.0 24 FINAL Oziel angelo [place] [address] [place] [address] [id number] 0 Phone: () - 12/19 CMP BUN mg/dL 9.0 23.0 18 FINAL Oziel angelo [place] [address] [place] [address] [id number] 0 Phone: () - 12/19 CMP Calci um mg/dL 8.7 10.4 9.7 FINAL Oziel angelo [place] [address] [id number] 0 Phone: () - 12/19 CMP Chlor vipin mmol/L 96.0 114.0 111 FINAL Oziel angelo [place] [address] [id number] 0 Phone: () - 12/19 CMP CO2 [...] stability window. FINAL Oziel angelo [place] [address] [id number] 0 Phone: () - 12/19 CMP Creat inine mg/dL 0.5 1.2 0.82 FINAL Oziel angelo [place] [address] [id number] 0 Phone: () - 12/19 CMP GFR estim ate ml/min /1.73m ^2 75.6 GFR is calculate d using the CKD-EPI equation. FINAL Oziel angelo [place] [address] [id number] 0 Phone: () - 12/19 CMP Gluco se mg/dL 73.0 126.0 81 FINAL Oziel angelo [place] [address] [address] [facility] [address] [phone] 0 Phone: () - 12/19 CMP Potas sium mmol/L 3.5 5.1 4.4 FINAL Oziel angelo [facility] [address] [id number] 0 Phone: () - 12/19 CMP Sodiu m mmol/L 136.0 145.0 144 FINAL Oziel angelo [place] [address] [id number] 0 Phone: () - 12/19 CMP Bilir ubin, total mg/dL 0.3 1.2 0.4 FINAL Oziel angelo [facility] - [place], [address] [place] [id number] 0 Phone: () - 12/19 CMP Total prote in g/dL 5.7 8.2 6.3 FINAL Oziel angelo [facility] - [place], [address] [place] [id number] 0 Phone: () - 01/12 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 01/16 CBC w/ auto diff WBC K/uL 3.0 8.9 4.4 FINAL Oziel angelo [facility] - [place], [address] [facility] [address] [place] [id number] 0 Phone: () - 01/16 CBC w/ auto diff HGB g/dL 11.3 15.2 11.9 FINAL Oziel angelo Oncology - [place], [address] [facility] [address] [place] [id number] 0 Phone: () - 01/16 CBC w/ auto diff PLT K/uL 113.0 364.0 231 FINAL Oziel angelo On[facility] - [place], [address] [facility] [address] [place] [id number] 0 Phone: () - 01/16 CBC w/ auto diff Dave # (ANC) K/uL 1.6 6.6 2.4 FINAL Oziel angelo Oncology - [place], [address] [place] [id number] 0 Phone: () - 01/16 CBC w/ auto diff Dave % % 43.0 74.0 54.7 FINAL Oziel angelo Oncology - [place], [address] [place] [id number] 0 Phone: () - 01/16 CBC w/ auto diff IG % % 0.0 0.5 0.2 FINAL Oziel angelo Oncology - [place], [address] [place] [id number] 0 Phone: () - 01/16 CBC w/ auto diff IG # K/uL 0.0 0.03 0.01 FINAL Oziel Tilleyot a On[facility] - [place], [address] [place] [id number] 0 Phone: () - 01/16 CBC w/ auto diff LY % % 14.0 41.0 31.8 FINAL Oziel Tilleyot a [facility] - [place], [address] [place] [id number] 0 Phone: () - 01/16 CBC w/ auto diff MO % % 6.0 15.0 8.9 FINAL Oziel Tilleyot a [facility] - [place], [address] [place] [id number] 0 Phone: () - 01/16 CBC w/ auto diff EO % % 0.0 7.0 3.9 FINAL Oziel Tilleyot a [facility] - [place], [address] [place] [id number] 0 Phone: () - 01/16 CBC w/ auto diff BA % % 0.0 2.0 0.5 FINAL Oziel Tilleyot a [facility] - [place], [address] [place] [id number] 0 Phone: () - 01/16 CBC w/ auto diff LY # K/uL 0.4 3.6 1.4 FINAL Oziel Tilleyot a [facility] - [place], [address] [place] [id number] 0 Phone: () - 01/16 CBC w/ auto diff MO # K/uL 0.2 1.3 0.4 FINAL Oziel Tilleyot a On[facility] - [place], [address] [place] [id number] 0 Phone: () - 01/16 CBC w/ auto diff EO # K/uL 0.0 0.6 0.2 FINAL Oziel Tilleyot a [facility] - [place], [address] [place] [id number] 0 Phone: () - 01/16 CBC w/ auto diff BA # K/uL 0.0 0.2 0.0 FINAL Oziel Tilleyot a [facility] - [place], [address] [place] [id number] 0 Phone: () - 01/16 CBC w/ auto diff NRBC % #/100W BC 0.0 0.2 0.0 FINAL Oziel Tilleyot a [facility] - [place], [address] [place] [id number] 0 Phone: () - 01/16 CBC w/ auto diff RBC M/uL 3.9 5.1 3.69 Low FINAL Oziel Tilleyot a [facility] - [place], [address] [place] [id number] 0 Phone: () - 01/16 CBC w/ auto diff HCT % 35.0 48.0 35.0 FINAL Oziel Tilleyot a [facility] - [place], [address] [place] [id number] 0 Phone: () - 01/16 CBC w/ auto diff MCV fL 80.0 104.0 94.9 FINAL Oziel Tilleyot a [facility] - [place], [address] [place] [id number] 0 Phone: () - 01/16 CBC w/ auto diff MCH pg 26.0 35.0 32.2 FINAL Oziel Tilleyot a [facility] - [place], [address] [place] [id number] 0 Phone: () - 01/16 CBC w/ auto diff MCHC g/dL 30.0 35.0 34.0 FINAL Oziel Tilleyot a On[facility] - [place], [address] [place] [id number] 0 Phone: () - 01/16 CBC w/ auto diff MPV fL 9.5 13.4 8.8 Low FINAL Oziel Tilleyot a On[facility] - [place], [address] [place] [id number] 0 Phone: () - 01/16 CBC w/ auto diff RDW % 11.4 16.1 13.90 FINAL Oziel angelo Oncology [facility] [place], [address] [facility] [address] [place] [id number] 0 Phone: () - 01/16 CMP Album in g/dL 3.2 5.2 4.3 FINAL Oziel angelo [place] [address] [place] [address] [id number] 0 Phone: () - 01/16 CMP Alkal ine phosp hatas e U/L 46.0 116.0 64 FINAL Oziel angelo [place] [address] [facility] [address] [place] [address] [id number] 0 Phone: () - 01/16 CMP ALT/S GPT U/L 7.0 40.0 12 FINAL Oziel angelo [place] [address] [facility] [address] [place] [address] [id number] 0 Phone: () - 01/16 CMP AST/S GOT U/L 13.0 40.0 23 FINAL Oziel angelo [place] [address] [id number] 0 Phone: () - 01/16 CMP BUN mg/dL 9.0 23.0 17 FINAL Oziel angelo [place] [address] [id number] 0 Phone: () - 01/16 CMP Calci um mg/dL 8.7 10.4 9.4 FINAL Oziel angelo [place] [address] [facility] [address] [place] [address] [id number] 0 Phone: () - 01/16 CMP Chlor vipin mmol/L 96.0 114.0 108 FINAL Oziel angelo [place] [address] [facility] [address] [id number] 0 Phone: () - 01/16 CMP CO2 [...] stability window. FINAL Oziel angelo [place] [address] [id number] 0 Phone: () - 01/16 CMP Creat inine mg/dL 0.5 1.2 1.07 FINAL Oziel angelo [address] [id number] 0 Phone: () - 01/16 CMP GFR estim ate ml/min /1.73m ^2 54.9 Low GFR is calculate d using the CKD-EPI equation. FINAL Oziel angelo [address] [id number] 0 Phone: () - 01/16 CMP Gluco se mg/dL 73.0 126.0 84 FINAL Oziel angelo [address] [id number] 0 Phone: () - 01/16 CMP Potas sium mmol/L 3.5 5.1 4.4 FINAL Oziel angelo [address] [id number] 0 Phone: () - 01/16 CMP Sodiu m mmol/L 136.0 145.0 141 FINAL Oziel angelo [address] [id number] 0 Phone: () - 01/16 CMP Bilir ubin, total mg/dL 0.3 1.2 0.4 FINAL Oziel angelo [address] [id number] 0 Phone: () - 01/16 CMP Total prote in g/dL 5.7 8.2 6.6 FINAL Oziel angelo [place] [address] [id number] 0 Phone: () - 01/16 TSH w/ refle x to free T4 TSH uIU/ml 0.32 5.0 14.74 High Provider Alert. Notified Vicki by Lynne Flannery on 01/19/2022 at 2:55 PM.Test performed at [facility] on a Tosoh 2000 Immunoass ay Analyzer that uses an immunoenz ymometric sandwich assay for analysis. Patient testing should not be performed using multiple methodolo gies due to analytica l variation seen between test methodolo gies. FINAL Oziel Tolbert a Oncology - [place] [address] [facility] [address] [place] [address] [id number] 0 Phone: () - 01/16 T4, free panel T4, free ng/dL 0.7 1.8 0.75 Test performed at [facility] on a TosRevisu 2000 Immunoass ay Analyzer that uses an immunoenz ymometric sandwich assay for analysis. Patient testing should not be performed using multiple methodolo gies due to analytica l variation seen between test methodolo gies. FINAL Oziel angelo Oncology - [facility] [address] [facility] [address] [place] [address] [id number] 0 Phone: () - 02/20 TSH w/ refle x to free T4 TSH uIU/ml 0.32 5.0 Sent to [facility] Lab. Hard copy results availab le only. Test performed at [facility] on a Tosoh 2000 Immunoass ay Analyzer that uses an immunoenz ymometric sandwich assay for analysis. Patient testing should not be performed using multiple methodolo gies due to analytica l variation seen between test methodolo gies. FINAL Oziel angelo Oncology - [place] [address] [facility] [address] [place] [address] [id number] 0 Phone: () - 02/20 T4, free panel T4, free ng/dL 0.7 1.8 1.01 Test Performed by:[facility] [address] - [facility], [place] [address]Nagt e : FINAL Oziel Box 02/20 TSH uIU/mL 0.35 4.94 8.74 High In Adults, TSH values between 5.00 and 10.00 uIU/ml do notnecess arily indicate the presence of Hypothyro idism.Cor relation with clinical findings such as presence of goiterand /or Thyropero xidase (TPO) Antibody may be helpful. Formore informati on please refer to MAYELA 2004; 291: 228-238.T est Performed by:[facility] [address] - [place] [address]Yaca e : FINAL Oziel Box 05/08 CMP Album in g/dL 3.2 5.2 4.0 FINAL Oziel angelo [facility], [address] [facility] [address] [place] [address] [id number] 0 Phone: () - 05/08 CMP Alkal ine phosp hatas e U/L 46.0 116.0 56 FINAL Oziel angelo [facility] [address] [place] [address] [id number] 0 Phone: () - 05/08 CMP ALT/S GPT U/L 7.0 40.0 17 FINAL Oziel angelo [facility] [address] [place] [address] [id number] 0 Phone: () - 05/08 CMP AST/S GOT U/L 13.0 40.0 21 FINAL Oziel angelo [facility], [address] [facility] [id number] 0 Phone: () - 05/08 CMP BUN mg/dL 9.0 23.0 22 FINAL Oziel angelo [facility], [address] [facility] [address] [place] [address] [id number] 0 Phone: () - 05/08 CMP Calci um mg/dL 8.7 10.4 9.3 FINAL Oziel angelo [facility] [address] [facility] [address] [place] [address] [id number] 0 Phone: () - 05/08 CMP Chlor vipin mmol/L 96.0 114.0 112 FINAL Oziel angelo [facility] [address] [place] [address] [id number] 0 Phone: () - 05/08 CMP CO2 [...] stability window. FINAL Oziel angelo [place] [address] [address] [facility] [address] [id number] 0 Phone: () - 05/08 CMP Creat inine mg/dL 0.5 1.2 0.86 FINAL Oziel angelo [place] [address] [facility] [address] [id number] 0 Phone: () - 05/08 CMP GFR estim ate ml/min /1.73m ^2 71.2 GFR is calculate d using the CKD-EPI equation. FINAL Oziel angelo [place] [address] [id number] 0 Phone: () - 05/08 CMP Gluco se mg/dL 73.0 126.0 77 FINAL Oziel angelo [place] [address] [id number] 0 Phone: () - 05/08 CMP Potas sium mmol/L 3.5 5.1 3.9 FINAL Oziel angelo [place] [address] [facility] [address] [id number] 0 Phone: () - 05/08 CMP Sodiu m mmol/L 136.0 145.0 148 High FINAL Oziel angelo [facility] [address] [facility] [address] [id number] 0 Phone: () - 05/08 CMP Bilir ubin, total mg/dL 0.3 1.2 0.4 FINAL Oziel angelo [place] [address] [facility] [address] [id number] 0 Phone: () - 05/08 CMP Total prote in g/dL 5.7 8.2 6.1 FINAL Oziel angelo [place] [address] [facility] [address] [id number] 0 Phone: () - 05/08 CBC w/ auto diff WBC K/uL 3.0 8.9 7.3 FINAL Oziel angelo [facility], [address] [place] [id number] 0 Phone: () - 05/08 CBC w/ auto diff HGB g/dL 11.3 15.2 11.0 Low FINAL Oziel Tilleyot gi Oncology - [place], [address] [place] [id number] 0 Phone: () - 05/08 CBC w/ auto diff PLT K/uL 113.0 364.0 210 FINAL Oziel Tilleyot gi Oncology - [place], [address] [place] [id number] 0 Phone: () - 05/08 CBC w/ auto diff Dave # (ANC) K/uL 1.6 6.6 3.7 FINAL Oziel angelo Oncology - [place], [address] [place] [id number] 0 Phone: () - 05/08 CBC w/ auto diff Dave % % 43.0 74.0 51.1 FINAL Oziel angelo Oncology - [place], [address] [place] [id number] 0 Phone: () - 05/08 CBC w/ auto diff IG % % 0.0 0.5 0.3 FINAL Oziel angelo Oncology - [place], [address] [place] [id number] 0 Phone: () - 05/08 CBC w/ auto diff IG # K/uL 0.0 0.03 0.02 FINAL Oziel angelo Oncology - [place], [address] [place] [id number] 0 Phone: () - 05/08 CBC w/ auto diff LY % % 14.0 41.0 37.9 FINAL Oziel Tilleyot a Oncology - [place], [address] [place] [id number] 0 Phone: () - 05/08 CBC w/ auto diff MO % % 6.0 15.0 9.2 FINAL Oziel Tilleyot a Oncology - [place], [address] [place] [id number] 0 Phone: () - 05/08 CBC w/ auto diff EO % % 0.0 7.0 1.2 FINAL Oziel Tilleyot a Oncology - [place], [address] [place] [id number] 0 Phone: () - 05/08 CBC w/ auto diff BA % % 0.0 2.0 0.3 FINAL Oziel Tilleyot gi Oncology - [place], [address] [place] [id number] 0 Phone: () - 05/08 CBC w/ auto diff LY # K/uL 0.4 3.6 2.8 FINAL Oziel Tilleyot gi Oncology - [place], [address] [place] [id number] 0 Phone: () - 05/08 CBC w/ auto diff MO # K/uL 0.2 1.3 0.7 FINAL Oziel Tilleyot gi Oncology - [place], [address] [place] [id number] 0 Phone: () - 05/08 CBC w/ auto diff EO # K/uL 0.0 0.6 0.1 FINAL Oziel angelo Oncology - [place], [address] [place] [id number] 0 Phone: () - 05/08 CBC w/ auto diff BA # K/uL 0.0 0.2 0.0 FINAL Oziel angelo Oncology - [place], [address] [place] [id number] 0 Phone: () - 05/08 CBC w/ auto diff NRBC % #/100W BC 0.0 0.2 0.0 FINAL Oziel angelo Oncology - [place], [address] [place] [id number] 0 Phone: () - 05/08 CBC w/ auto diff RBC M/uL 3.9 5.1 3.27 Low FINAL Oziel Tolbert a Oncology - [place], [address] [place] [id number] 0 Phone: () - 05/08 CBC w/ auto diff HCT % 35.0 48.0 32.1 Low FINAL Oziel angleo Oncology - [place], [address] [facility] [address] [place] [id number] 0 Phone: () - 05/08 CBC w/ auto diff MCV fL 80.0 104.0 98.2 FINAL Oziel angelo Oncology - [place], [address] [facility] [address] [place] [id number] 0 Phone: () - 05/08 CBC w/ auto diff MCH pg 26.0 35.0 33.6 FINAL Oziel angelo Oncology - [place], [address] [facility] [address] [place] [id number] 0 Phone: () - 05/08 CBC w/ auto diff MCHC g/dL 30.0 35.0 34.3 FINAL Oziel angelo Oncology - [place], [address] [facility] [address] [place] [id number] 0 Phone: () - 05/08 CBC w/ auto diff MPV fL 9.5 13.4 9.4 Low FINAL Oziel angelo Oncology - [place], [address] [facility] [address] [place] [id number] 0 Phone: () - 05/08 CBC w/ auto diff RDW % 11.4 16.1 13.10 FINAL Oziel angelo Oncology - [place], [address] [place] [address] d [address] [place] [id number] 0 Phone: () - 05/08 TSH w/ refle x to free T4 TSH uIU/ml 0.32 5.0 1.36 Test performed at [facility] on a [employer] Immunoass ay Analyzer that uses an immunoenz ymometric sandwich assay for analysis. Patient testing should not be performed using multiple methodharley amador due to analytica l variation seen between test methodharley amador. FINAL Oziel angelo Oncology - [place], [address] [facility] [id number] 0 Phone: () - 07/23 Misc other lab 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 07/23 Misc other lab 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 11/03 CMP Album in g/dL 3.2 5.2 4.1 FINAL Oziel angelo [place] [address] [facility] [address] [facility] [id number] 0 Phone: () - 11/03 CMP Alkal ine phosp hatas e U/L 46.0 116.0 59 FINAL Oziel angelo [place] [address] [facility] 100 [facility] [id number] 0 Phone: () - 11/03 CMP ALT/S GPT U/L 7.0 40.0 <7 FINAL Oziel angelo [place] [address] [facility] 100 [facility] [id number] 0 Phone: () - 11/03 CMP AST/S GOT U/L 13.0 40.0 24 FINAL Oziel angelo [place] [address] [facility] [address] [id number] 0 Phone: () - 11/03 CMP BUN mg/dL 9.0 23.0 16.0 FINAL Oziel angelo [place] [address] [id number] 0 Phone: () - 11/03 CMP Calci um mg/dL 8.7 10.4 9.1 FINAL Oziel angelo [place] [address] [facility] [address] [id number] 0 Phone: () - 11/03 CMP Chlor vipin mmol/L 96.0 114.0 105 FINAL Oziel angelo [place] [address] [id number] 0 Phone: () - 11/03 CMP CO2 [...] 96 hour stability window. FINAL Oziel angelo [facility], [address] [facility] 100 [facility] [id number] 0 Phone: () - 11/03 CMP Creat inine mg/dL 0.5 1.2 0.88 FINAL Oziel angelo [place] [address] [id number] 0 Phone: () - 11/03 CMP GFR estim ate ml/min /1.73m ^2 69.0 GFR is calculate d using the CKD-EPI equation. FINAL Oziel angelo [place] [address] [id number] 0 Phone: () - 11/03 CMP Gluco se mg/dL 73.0 126.0 105 FINAL Oziel angelo [place] [address] [id number] 0 Phone: () - 11/03 CMP Potas sium mmol/L 3.5 5.1 4.4 FINAL Oziel angelo [place] [address] [id number] 0 Phone: () - 11/03 CMP Sodiu m mmol/L 136.0 145.0 139 FINAL Oziel angelo [place] [address] [id number] 0 Phone: () - 11/03 CMP Bilir ubin, total mg/dL 0.3 1.2 0.6 FINAL Oziel angelo [place] [address] [id number] 0 Phone: () - 11/03 CMP Total prote in g/dL 5.7 8.2 6.6 FINAL Oziel angelo [place] [address] [facility] [address] [id number] 0 Phone: () - 11/03 CBC w/ auto diff WBC K/uL 3.0 8.9 4.7 FINAL Oziel angelo [facility], [address] [place] [id number] 0 Phone: () - 08/22 /2023 CBC w/ auto diff HGB g/dL 11.3 15.2 11.6 FINAL Oziel Tilleyot a On[facility] - [place], [address] [place] [id number] 0 Phone: () - 11/03 CBC w/ auto diff PLT K/uL 113.0 364.0 248 FINAL Oziel Tilleyot a On[facility] - [place], [address] [place] [id number] 0 Phone: () - 11/03 CBC w/ auto diff Dave # (ANC) K/uL 1.6 6.6 2.9 FINAL Oziel Tilleyot a On[facility] - [place], [address] [place] [id number] 0 Phone: () - 11/03 CBC w/ auto diff Dave % % 43.0 74.0 60.9 FINAL Oziel Tilleyot a [facility] - [place], [address] [place] [id number] 0 Phone: () - 11/03 CBC w/ auto diff IG % % 0.0 0.5 0.4 FINAL Oziel Tilleyot a [facility] - [place], [address] [place] [id number] 0 Phone: () - 11/03 CBC w/ auto diff IG # K/uL 0.0 0.03 0.02 FINAL Oziel Tilleyot a [facility] - [place], [address] [place] [id number] 0 Phone: () - 11/03 CBC w/ auto diff LY % % 14.0 41.0 26.8 FINAL Oziel Tilleyot a [facility] - [place], [address] [place] [id number] 0 Phone: () - 11/03 CBC w/ auto diff MO % % 6.0 15.0 8.5 FINAL Oziel Tilleyot a [facility] - [place], [address] [place] [id number] 0 Phone: () - 11/03 CBC w/ auto diff EO % % 0.0 7.0 3.0 FINAL Oziel Tilleyot a [facility] - [place], [address] [place] [id number] 0 Phone: () - 11/03 CBC w/ auto diff BA % % 0.0 2.0 0.4 FINAL Oziel Tilleyot a [facility] - [place], [address] [place] [id number] 0 Phone: () - 11/03 CBC w/ auto diff LY # K/uL 0.4 3.6 1.3 FINAL Oziel Tilleyot a [facility] - [place], [address] [place] [id number] 0 Phone: () - 11/03 CBC w/ auto diff MO # K/uL 0.2 1.3 0.4 FINAL Oziel Tilleyot a On[facility] - [place], [address] [place] [id number] 0 Phone: () - 11/03 CBC w/ auto diff EO # K/uL 0.0 0.6 0.1 FINAL Oziel Tilleyot a [facility] - [place], [address] [place] [id number] 0 Phone: () - 11/03 CBC w/ auto diff BA # K/uL 0.0 0.2 0.0 FINAL Oziel Tilleyot gi [facility] - [place], [address] [place] [id number] 0 Phone: () - 11/03 CBC w/ auto diff NRBC % #/100W BC 0.0 0.2 0.0 FINAL Oziel Tilleyot a [facility] - [place], [address] [place] [id number] 0 Phone: () - 11/03 CBC w/ auto diff RBC M/uL 3.9 5.1 3.52 Low FINAL Oziel Tilleyot a [facility] - [place], [address] [place] [id number] 0 Phone: () - 11/03 CBC w/ auto diff HCT % 35.0 48.0 34.2 Low FINAL Oziel angelo Oncology - [place], [facility] [address] [place] [id number] 0 Phone: () - 11/03 CBC w/ auto diff MCV fL 80.0 104.0 97.2 FINAL Oziel angelo Oncology - [place], [facility] [address] [place] [id number] 0 Phone: () - 11/03 CBC w/ auto diff MCH pg 26.0 35.0 33.0 FINAL Oziel Tilleyot gi On[facility] - [place], [facility] [address] [place] [id number] 0 Phone: () - 11/03 CBC w/ auto diff MCHC g/dL 30.0 35.0 33.9 FINAL Oziel angelo Oncology - [place], [facility] [address] [facility] [address] [place] [id number] 0 Phone: () - 11/03 CBC w/ auto diff MPV fL 9.5 13.4 8.7 Low FINAL Oziel angelo Oncology - [place], [facility] [address] [facility] [address] [place] [id number] 0 Phone: () - 11/03 CBC w/ auto diff RDW % 11.4 16.1 14.40 FINAL Oziel angelo Oncology - [place], [facility] [address] [facility] [address] [place] [id number] 0 Phone: () - 02/08 CMP Album in g/dL 3.2 5.2 4.0 FINAL Oziel Tilleyot gi [facility] - [place], [address] [place] [id number] 0 Phone: () - 02/08 CMP Alkal ine phosp hatas e U/L 46.0 116.0 83 FINAL Oziel Tilleyot a [facility] - [place], [address] [place] [id number] 0 Phone: () - 02/08 CMP ALT/S GPT U/L 7.0 40.0 <7 FINAL Oziel angelo [facility], [address] [facility] 100 [facility] [id number] 0 Phone: () - 02/08 CMP AST/S GOT U/L 13.0 40.0 23 FINAL Oziel angelo [facility] [address] [facility] 100 [facility] [id number] 0 Phone: () - 02/08 CMP BUN mg/dL 9.0 23.0 17.0 FINAL Oziel angelo [place] [address] [id number] 0 Phone: () - 02/08 CMP Calci um mg/dL 8.7 10.4 8.8 FINAL Oziel angelo [place] [address] [id number] 0 Phone: () - 02/08 CMP Chlor vipin mmol/L 96.0 114.0 109 FINAL Oziel angelo [place] [address] [id number] 0 Phone: () - 02/08 CMP CO2 [...] stability window. FINAL Oziel angelo [place] [address] [id number] 0 Phone: () - 02/08 CMP Creat inine mg/dL 0.5 1.2 0.86 FINAL Oziel angelo [place] [address] [id number] 0 Phone: () - 02/08 CMP GFR estim ate ml/min /1.73m ^2 70.9 GFR is calculate d using the CKD-EPI equation. FINAL Oziel angelo [place] [address] [id number] 0 Phone: () - 02/08 CMP Gluco se mg/dL 73.0 126.0 84 FINAL Oziel angelo [facility], [address] [facility] [id number] 0 Phone: () - 02/08 CMP Potas sium mmol/L 3.5 5.1 4.5 FINAL Oziel angelo [facility], [address] [facility] [id number] 0 Phone: () - 02/08 CMP Sodiu m mmol/L 136.0 145.0 141 FINAL Oziel angelo [facility] [address] [facility] [id number] 0 Phone: () - 02/08 CMP Bilir ubin, total mg/dL 0.3 1.2 0.3 FINAL Oziel angelo [facility] [address] [facility] [id number] 0 Phone: () - 02/08 CMP Total prote in g/dL 5.7 8.2 6.1 FINAL Oziel angelo [facility], [address] [facility] [id number] 0 Phone: () - 02/08 TSH w/ refle x to free T4 TSH uIU/ml 0.32 5.0 3.61 Test performed at [facility] on a [employer] Immunoass ay Analyzer that uses an immunoenz ymometric sandwich assay for analysis. Patient testing should not be performed using multiple methodharley amador due to analytica l variation seen between test methodharley amador. FINAL Oziel angelo [facility], [address] [facility] [id number] 0 Phone: () - 02/08 CBC w/ auto diff WBC K/uL 3.0 8.9 4.7 FINAL Oziel angelo [facility] - [place], [address] [facility] [address] [place] [id number] 0 Phone: () - 02/08 CBC w/ auto diff HGB g/dL 11.3 15.2 11.0 Low FINAL Oziel angelo [facility] - [place], [address] [place] [id number] 0 Phone: () - 02/08 CBC w/ auto diff PLT K/uL 113.0 364.0 194 FINAL Oziel Tilleyot gi [facility] - [place], [address] [place] [id number] 0 Phone: () - 02/08 CBC w/ auto diff Dave # (ANC) K/uL 1.6 6.6 2.7 FINAL Oziel Tilleyot a [facility] - [place], [address] [place] [id number] 0 Phone: () - 02/08 CBC w/ auto diff Dave % % 43.0 74.0 57.2 FINAL Oziel Tlileyot a On[facility] - [place], [address] [place] [id number] 0 Phone: () - 02/08 CBC w/ auto diff IG % % 0.0 0.5 0.4 FINAL Oziel angelo On[facility] - [place], [address] [place] [id number] 0 Phone: () - 02/08 CBC w/ auto diff IG # K/uL 0.0 0.03 0.02 FINAL Oziel Tilleyot a [facility] - [place], [address] [place] [id number] 0 Phone: () - 02/08 CBC w/ auto diff LY % % 14.0 41.0 31.6 FINAL Oziel Tilleyot gi [facility] - [place], [address] [place] [id number] 0 Phone: () - 02/08 CBC w/ auto diff MO % % 6.0 15.0 8.0 FINAL Oziel Tilleyot gi [facility] - [place], [address] [place] [id number] 0 Phone: () - 02/08 CBC w/ auto diff EO % % 0.0 7.0 2.2 FINAL Oziel Tilleyot a [facility] - [place], [address] [place] [id number] 0 Phone: () - 02/08 CBC w/ auto diff BA % % 0.0 2.0 0.6 FINAL Oziel angelo On[facility] - [place], [address] [place] [id number] 0 Phone: () - 02/08 CBC w/ auto diff LY # K/uL 0.4 3.6 1.5 FINAL Oziel angelo On[facility] - [place], [address] [place] [id number] 0 Phone: () - 02/08 CBC w/ auto diff MO # K/uL 0.2 1.3 0.4 FINAL Oziel angelo On[facility] - [place], [address] [place] [id number] 0 Phone: () - 02/08 CBC w/ auto diff EO # K/uL 0.0 0.6 0.1 FINAL Oziel angelo On[facility] - [place], [address] [place] [id number] 0 Phone: () - 02/08 CBC w/ auto diff BA # K/uL 0.0 0.2 0.0 FINAL Oziel angelo On[facility] - [place], [address] [place] [id number] 0 Phone: () - 02/08 CBC w/ auto diff NRBC % #/100W BC 0.0 0.2 0.0 FINAL Oziel angelo [facility] - [place], [address] [place] [id number] 0 Phone: () - 02/08 CBC w/ auto diff RBC M/uL 3.9 5.1 3.26 Low FINAL Oziel angelo On[facility] - [place], [address] [place] [id number] 0 Phone: () - 02/08 CBC w/ auto diff HCT % 35.0 48.0 32.9 Low FINAL Oziel angelo On[facility] - [place], [address] [place] [id number] 0 Phone: () - 02/08 CBC w/ auto diff MCV fL 80.0 104.0 100.9 FINAL Oziel Tilleyot a [facility] - [place], [address] [place] [id number] 0 Phone: () - 02/08 CBC w/ auto diff MCH pg 26.0 35.0 33.7 FINAL Oziel Tilleyot a [facility] - [place], [address] [place] [id number] 0 Phone: () - 02/08 CBC w/ auto diff MCHC g/dL 30.0 35.0 33.4 FINAL Oziel Tilleyot a [facility] - [place], [address] [place] [id number] 0 Phone: () - 02/08 CBC w/ auto diff MPV fL 9.5 13.4 9.0 Low FINAL Oziel Tolbert a [facility] - [place], [address] [place] [id number] 0 Phone: () - 02/08 CBC w/ auto diff RDW % 11.4 16.1 13.70 FINAL Oziel Tolbert a [facility] - [place], [address] [place] [id number] 0 Phone: () - 06/06 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 08/09 CMP Album in g/dL 3.5 5.0 4.1 FINAL Oziel Box Stephie Tilleyot a On[facility] - [place], [address] [facility] [place] [id number] 0 08/09 CMP Alkal ine phosp hatas e U/L 36.0 125.0 66 FINAL Oziel Box * [facility] - [place], [address] [place] [id number] 0 08/09 CMP ALT/S GPT U/L 0.0 34.0 6 FINAL Oziel Tilleyot [facility], [address] [facility] [id number] 0 08/09 CMP AST/S GOT U/L 14.0 36.0 28 FINAL Oziel Tilleyot a [facility], [address] [facility] [id number] 0 08/09 CMP BUN mg/dL 7.0 17.0 17.0 [facility] [address] [facility] [id number] 0 08/09 CMP Calci um mg/dL 8.4 10.2 9.4 [facility], [address] [id number] 0 08/09 CMP Chlor vipin mmol/L 96.0 107.0 106 [facility], [address] [facility] [id number] 0 08/09 CMP CO2 mmol/L 22.0 30.0 [...] the 96 hour stability window. [facility], [address] [facility] [id number] 0 08/09 CMP Creat inine mg/dL 0.66 1.25 0.70 FINAL Oziel Tilleyot [facility], [address] [facility] [id number] 0 08/09 CMP GFR estim ate ml/min /1.73m ^2 90.4 GFR is calculate d using the CKD-EPI equation. FINAL Oziel Box * [facility], [address] [facility] [address] [id number] 0 08/09 CMP Gluco se mg/dL 74.0 100.0 87 FINAL Oziel Box * [facility], [facility] [address] [id number] 0 08/09 CMP Potas sium mmol/L 3.5 5.1 4.2 FINAL Oziel Box * [facility], [facility]0 [facility] [address] [place] [address] [id number] 0 08/09 CMP Sodiu m mmol/L 137.0 145.0 139 FINAL Oziel Tilleyot a [facility], [address] [facility] [address] [id number] 0 08/09 CMP Bilir ubin, total mg/dL 0.2 1.3 0.3 FINAL Oziel Tilleyot a [facility], [address] [facility] [address] [place] [address] [id number] 0 08/09 CMP Total prote in g/dL 6.3 8.2 6.7 FINAL Oziel Tilleyot a [facility], [address] [id number] 0 08/09 CBC w/ auto diff WBC K/uL 3.0 8.9 3.5 FINAL Oziel Tilleyot a [facility] - [place], [address] [place] [id number] 0 Phone: ( 08/09 CBC w/ auto diff HGB g/dL 11.3 15.2 11.7 FINAL Oziel Tilleyot a [facility] - [place], [address] [place] [id number] 0 Phone: () - 08/09 CBC w/ auto diff PLT K/uL 113.0 364.0 196 FINAL Oziel Tilleyot gi [facility] - [place], [address] [place] [id number] 0 Phone: () - 08/09 CBC w/ auto diff Dave # (ANC) K/uL 1.6 6.6 1.9 FINAL Oziel Tolbert a On[facility] - [place], [address] [place] [id number] 0 Phone: () - 08/09 CBC w/ auto diff Dave % % 43.0 74.0 52.2 FINAL Oziel angelo On[facility] - [place], [address] [place] [id number] 0 Phone: () - 08/09 CBC w/ auto diff IG % % 0.0 0.5 0.3 FINAL Oziel angelo On[facility] - [place], [address] [place] [id number] 0 Phone: () - 08/09 CBC w/ auto diff IG # K/uL 0.0 0.03 0.01 FINAL Oziel angelo On[facility] - [place], [address] [place] [id number] 0 Phone: () - 08/09 CBC w/ auto diff LY % % 14.0 41.0 35.0 FINAL Oziel angelo On[facility] - [place], [address] [place] [id number] 0 Phone: () - 08/09 CBC w/ auto diff MO % % 6.0 15.0 9.6 FINAL Oziel angelo On[facility] - [place], [address] [place] [id number] 0 Phone: () - 08/09 CBC w/ auto diff EO % % 0.0 7.0 2.3 FINAL Oziel Tilleyot a [facility] - [place], [address] [place] [id number] 0 Phone: () - 08/09 CBC w/ auto diff BA % % 0.0 2.0 0.6 FINAL Oziel Tilleyot a [facility] - [place], [address] [place] [id number] 0 Phone: () - 08/09 CBC w/ auto diff LY # K/uL 0.4 3.6 1.2 FINAL Oziel Tilleyot a [facility] - [place], [address] [place] [id number] 0 Phone: () - 08/09 CBC w/ auto diff MO # K/uL 0.2 1.3 0.3 FINAL Oziel Tilleyot a [facility] - [place], [address] [place] [id number] 0 Phone: () - 08/09 CBC w/ auto diff EO # K/uL 0.0 0.6 0.1 FINAL Oziel Tilleyot gi On[facility] - [place], [address] [place] [id number] 0 Phone: () - 08/09 CBC w/ auto diff BA # K/uL 0.0 0.2 0.0 FINAL Oziel Tilleyot gi [facility] - [place], [address] [place] [id number] 0 Phone: () - 08/09 CBC w/ auto diff NRBC % #/100W BC 0.0 0.2 0.0 FINAL Oziel Tilleyot a [facility] - [place], [address] [place] [id number] 0 Phone: () - 08/09 CBC w/ auto diff RBC M/uL 3.9 5.1 3.51 Low FINAL Oziel Tilleyot a [facility] - [place], [address] [place] [id number] 0 Phone: () - 08/09 CBC w/ auto diff HCT % 35.0 48.0 35.6 FINAL Oziel Tilleyot a [facility] - [place], [address] [place] [id number] 0 Phone: () - 08/09 CBC w/ auto diff MCV fL 80.0 104.0 101.4 FINAL Oziel Tilleyot a [facility] - [place], [address] [place] [id number] 0 Phone: () - 08/09 CBC w/ auto diff MCH pg 26.0 35.0 33.3 FINAL Oziel Tilleyot a [facility] - [place], [address] [place] [id number] 0 Phone: () - 08/09 CBC w/ auto diff MCHC g/dL 30.0 35.0 32.9 FINAL Oziel Tilleyot a [facility] - [place], [address] [place] [id number] 0 Phone: () - 08/09 CBC w/ auto diff MPV fL 9.5 13.4 9.3 Low FINAL Oziel Tilleyot a [facility] - [place], [address] [place] [id number] 0 Phone: () - 08/09 CBC w/ auto diff RDW % 11.4 16.1 13.20 FINAL Oziel Tilleyot a [facility] - [place], [address] [place] [id number] 0 Phone: () - 08/09 TSH w/ refle x to free T4 TSHR- v mIU/ml 0.47 4.68 0.74 FINAL Oziel Box * [facility] - [place], [address] [facility] [place] [id number] 0 02/13 CBC w/ auto diff WBC K/uL 3.0 8.9 4.7 FINAL Oziel Box [place] [facility] - [place], [address] [place] [id number] 0 02/13 CBC w/ auto diff HGB g/dL 11.3 15.2 10.4 Low FINAL Oziel FREEMAN On[facility] - [place], [address] [place] [id number] 0 02/13 CBC w/ auto diff PLT K/uL 113.0 364.0 252 FINAL Oziel FREEMAN On[facility] - [place], [address] [place] [id number] 0 02/13 CBC w/ auto diff Dave # (ANC) K/uL 1.6 6.6 2.4 FINAL Oziel FREEMAN [facility] - [place], [address] [place] [id number] 0 02/13 CBC w/ auto diff Dave % % 43.0 74.0 51.3 FINAL Oziel FREEMAN [facility] - [place], [address] [place] [id number] 0 02/13 CBC w/ auto diff IG % % 0.0 0.5 0.2 FINAL Oziel FREEMAN [facility] - [place], [address] [place] [id number] 0 02/13 CBC w/ auto diff IG # K/uL 0.0 0.03 0.01 FINAL Oziel FREEMAN [facility] - [place], [address] [place] [id number] 0 02/13 CBC w/ auto diff LY % % 14.0 41.0 33.5 FINAL Oziel RFEEMAN On[facility] - [place], [address] [place] [id number] 0 02/13 CBC w/ auto diff MO % % 6.0 15.0 8.8 FINAL Oziel FREEMAN [facility] - [place], [address] [place] [id number] 0 02/13 CBC w/ auto diff EO % % 0.0 7.0 5.6 FINAL Oziel FREEMAN [facility] - [place], [address] [place] [id number] 0 02/13 CBC w/ auto diff BA % % 0.0 2.0 0.6 FINAL Oziel FREEMAN [facility] - [place], [address] [place] [id number] 0 02/13 CBC w/ auto diff LY # K/uL 0.4 3.6 1.6 FINAL Oziel FREEMAN [facility] - [place], [address] [place] [id number] 0 02/13 CBC w/ auto diff MO # K/uL 0.2 1.3 0.4 FINAL Oziel FREEMAN [facility] - [place], [address] [place] [id number] 0 02/13 CBC w/ auto diff EO # K/uL 0.0 0.6 0.3 FINAL Oziel FREEMAN [facility] - [place], [address] [place] [id number] 0 02/13 CBC w/ auto diff BA # K/uL 0.0 0.2 0.0 FINAL Oziel FREEMAN [facility] - [place], [address] [place] [id number] 0 02/13 CBC w/ auto diff NRBC % #/100W BC 0.0 0.2 0.0 FINAL Oziel FREEMAN [facility] - [place], [address] [place] [id number] 0 02/13 CBC w/ auto diff RBC M/uL 3.9 5.1 3.24 Low FINAL Oziel FREEMAN [facility] - [place], [address] [place] [id number] 0 02/13 CBC w/ auto diff HCT % 35.0 48.0 32.3 Low FINAL Oziel FREEMAN [facility] - [place], [address] [place] [id number] 0 02/13 CBC w/ auto diff MCV fL 80.0 104.0 99.7 FINAL Oziel FREEMAN [facility] - [place], [address] [place] [id number] 0 02/13 CBC w/ auto diff MCH pg 26.0 35.0 32.1 FINAL Oziel FREEMAN [facility] - [place], [address] [place] [id number] 0 02/13 CBC w/ auto diff MCHC g/dL 30.0 35.0 32.2 FINAL Oziel FREEMAN [facility] - [place], [address] [place] [id number] 0 02/13 CBC w/ auto diff MPV fL 9.5 13.4 9.1 Low FINAL Oziel FREEMAN [facility] - [place], [address] [place] [id number] 0 02/13 CBC w/ auto diff RDW % 11.4 16.1 13.70 FINAL Oziel FREEMAN [facility] - [place], [address] [place] [id number] 0 02/13 CMP Album in g/dL 3.5 5.0 3.5 FINAL Oziel Box * [place] [facility] [place], [address] [place] [id number] 0 02/13 CMP Alkal ine phosp hatas e U/L 36.0 125.0 75 FINAL Oziel Box * [place] [facility] [place], [address] [facility] [id number] 0 02/13 CMP ALT/S GPT U/L 0.0 34.0 <4 Repeate d FINAL Oziel Box * [place] [facility] [place], [address] [facility] [id number] 0 02/13 CMP AST/S GOT U/L 14.0 36.0 17 FINAL Oziel Box * [place] [facility], [address] [facility] [id number] 0 02/13 CMP BUN mg/dL 7.0 17.0 18.0 High FINAL Oziel Card [place] [facility], [address] [facility] [id number] 0 02/13 CMP Calci um mg/dL 8.4 10.2 9.2 FINAL Oziel Card [place] [facility], [address] [facility] [id number] 0 02/13 CMP Chlor vipin mmol/L 96.0 107.0 109 High FINAL Oziel Card [place] [facility], [address] [facility] [id number] 0 02/13 CMP CO2 mmol/L 22.0 30.0 [...] 96 hour stability window. FINAL Oziel Card [place] [facility], [address] [facility] [id number] 0 02/13 CMP Creat inine mg/dL 0.66 1.25 0.80 FINAL Oziel Box * [place] [facility], [address] [facility] [id number] 0 02/13 CMP GFR estim ate ml/min /1.73m ^2 76.8 GFR is calculate d using the CKD-EPI equation. FINAL Oziel Box * [place] [facility], [address] [facility] [id number] 0 02/13 CMP Gluco se mg/dL 74.0 100.0 84 FINAL Oziel Box * [facility], [address] [id number] 0 02/13 CMP Potas sium mmol/L 3.5 5.1 4.4 FINAL Oziel Box * [facility], [address] [id number] 0 02/13 CMP Sodiu m mmol/L 137.0 145.0 137 FINAL Oziel Box * [place] [facility], [address] [id number] 0 02/13 CMP Bilir ubin, total mg/dL 0.2 1.3 0.5 FINAL Oziel Box * [place] [facility], [address] [id number] 0 02/13 CMP Total prote in g/dL 6.3 8.2 6.2 Low FINAL Oziel Box * [facility], [address] [id number] 0 04/03 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 lab 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 08/14 CMP Album in g/dL 3.5 5.0 3.7 FINAL Oziel Box * [place] [facility] [place] [facility] , [address] [facility] [id number] 0 08/14 CMP Alkal ine phosp hatas e U/L 36.0 125.0 68 FINAL Oziel Box * [facility] , [address] [facility] [id number] 0 08/14 CMP ALT/S GPT U/L 0.0 34.0 10 FINAL Oziel Box * [facility] , [address] [facility] [id number] 0 08/14 CMP AST/S GOT U/L 14.0 36.0 28 FINAL Oziel Box * [facility] , [address] [facility] [address] [id number] 0 08/14 CMP BUN mg/dL 7.0 17.0 25.0 High FINAL Oziel Box * [facility] , [address] [facility] [id number] 0 08/14 CMP Calci um mg/dL 8.4 10.2 8.7 FINAL Oziel Box * [facility] , [address] [facility] [id number] 0 08/14 CMP Chlor vipin mmol/L 96.0 107.0 109 High FINAL Oziel Box * [facility] , [address] [facility] [id number] 0 08/14 CMP CO2 mmol/L 22.0 30.0 [...] hour stability window. FINAL Oziel Box * [facility] , [facility]0 [facility] [address] [facility] [id number] 0 08/14 CMP Creat inine mg/dL 0.66 1.25 0.90 FINAL Oziel Box * [facility] , [address] [facility] [address] [id number] 0 08/14 CMP GFR estim ate ml/min /1.73m ^2 66.5 GFR is calculate d using the CKD-EPI equation. FINAL Oziel Box * [facility] , [address] [facility] [address] [id number] 0 08/14 CMP Gluco se mg/dL 74.0 100.0 95 FINAL Oziel Box * [facility] , [facility]0 [facility] [address] [id number] 0 08/14 CMP Potas sium mmol/L 3.5 5.1 4.5 FINAL Oziel Box * [facility] , [address] [facility] [address] [id number] 0 08/14 CMP Sodiu m mmol/L 137.0 145.0 137 FINAL Oziel Box * [facility] , [address] [facility] [address] [id number] 0 08/14 CMP Bilir ubin, total mg/dL 0.2 1.3 0.8 FINAL Oziel Box * [facility] , [address] [facility] [address] [id number] 0 08/14 CMP Total prote in g/dL 6.3 8.2 6.5 FINAL Oziel Box * [facility] , [address] [facility] [address] [id number] 0 08/14 CBC w/ auto diff WBC K/uL 3.0 8.9 4.7 FINAL Oziel Box [facility] , [address] [place] [id number] 0 08/14 CBC w/ auto diff HGB g/dL 11.3 15.2 11.5 FINAL Oziel Box [place] [facility] , [address] [place] [id number] 0 08/14 CBC w/ auto diff PLT K/uL 113.0 364.0 211 FINAL Oziel Box [place] [facility] [place] [facility] , [address] [place] [id number] 0 08/14 CBC w/ auto diff Dave # (ANC) K/uL 1.6 6.6 2.9 FINAL Oziel Box [place] [facility] [place] [facility] , [address] [place] [id number] 0 08/14 CBC w/ auto diff Dvae % % 43.0 74.0 61.3 FINAL Oziel Box [place] [facility] [place] [facility] , [address] [place] [id number] 0 08/14 CBC w/ auto diff IG % % 0.0 0.5 0.2 FINAL Oziel Box [place] [facility] , [address] [place] [id number] 0 08/14 CBC w/ auto diff IG # K/uL 0.0 0.03 0.01 FINAL Oziel Box [place] [facility] [place] [facility] , [address] [place] [id number] 0 08/14 CBC w/ auto diff LY % % 14.0 41.0 25.6 FINAL Oziel Box [place] [facility] , [address] [place] [id number] 0 06/02 /2025 CBC w/ auto diff MO % % 6.0 15.0 8.7 FINAL Oziel Box [place] [facility] [place] [facility] , [address] [place] [id number] 0 08/14 CBC w/ auto diff EO % % 0.0 7.0 3.8 FINAL Oziel Box [place] [facility] [place] [facility] , [address] [place] [id number] 0 08/14 CBC w/ auto diff BA % % 0.0 2.0 0.4 FINAL Oziel Box [place] [facility] [place] [facility] , [address] [place] [id number] 0 08/14 CBC w/ auto diff LY # K/uL 0.4 3.6 1.2 FINAL Oziel Box [place] [facility] [place] [facility] , [address] [place] [id number] 0 08/14 CBC w/ auto diff MO # K/uL 0.2 1.3 0.4 FINAL Oziel Box [place] [facility] [place] [facility] , [address] [place] [id number] 0 08/14 CBC w/ auto diff EO # K/uL 0.0 0.6 0.2 FINAL Oziel Box [place] [facility] [place] [facility] , [address] [place] [id number] 0 08/14 CBC w/ auto diff BA # K/uL 0.0 0.2 0.0 FINAL Oziel Box [place] [facility] [place] [facility] , [address] [place] [id number] 0 08/14 CBC w/ auto diff NRBC % #/100W BC 0.0 0.2 0.0 FINAL Oziel Box [place] [facility] [place] [facility] , [address] [place] [id number] 0 08/14 CBC w/ auto diff RBC M/uL 3.9 5.1 3.60 Low FINAL Oziel Box [place] [facility] [place] [facility] , [address] [place] [id number] 0 08/14 CBC w/ auto diff HCT % 35.0 48.0 35.2 FINAL Oziel Box [place] [facility] [place] [facility] , [address] [place] [id number] 0 08/14 CBC w/ auto diff MCV fL 80.0 104.0 97.8 FINAL Oziel Box [place] [facility] [place] [facility] , [address] [place] [id number] 0 08/14 CBC w/ auto diff MCH pg 26.0 35.0 31.9 FINAL Oziel Box [place] [facility] [place] [facility] , [address] [place] [id number] 0 08/14 CBC w/ auto diff MCHC g/dL 30.0 35.0 32.7 FINAL Oziel Box [place] [facility] [place] [facility] , [address] [place] [id number] 0 08/14 CBC w/ auto diff MPV fL 9.5 13.4 9.0 Low FINAL Oziel Box [place] [facility] [place] [facility] , [address] [place] [id number] 0 08/14 CBC w/ auto diff RDW % 11.4 16.1 13.60 FINAL Oziel Box [place] [facility] [place] [facility] , [address] [place] [id number] 0 Medications Date Name Route Dose Frequency Instructions Start Date End Date Status Baclofen Oral daily act charles Vitamin I03-Bhskm Acid Oral 500 mcg-400 mcg daily active [...] concentration must be 0.3-1.2 mg/mL.Administ er using [id number] ining equipment and through an in-line 0.22 [...]
--- OUTSIDE RECORDS SUMMARY | 2024-09-18 09:53 | XMS_ITS ---
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 08/14 CMP Album in g/dL 3.5 5.0 3.7 FINAL Oziel Box * [facility] , [address] [facility] [id number] 0 08/14 CMP Alkal ine phosp hatas e U/L 36.0 125.0 68 FINAL Oziel Box * [facility] , [address] [facility] [id number] 08/14 CMP ALT/S GPT U/L 0.0 34.0 10 FINAL Oziel Box * [facility] , [address] [facility] [id number] 0 08/14 CMP AST/S GOT U/L 14.0 36.0 28 FINAL Oziel Box * [facility] , [address] [facility] [id number] 0 08/14 CMP BUN mg/dL 7.0 17.0 25.0 High FINAL Oziel Box * [facility] , [address] [facility] [id number] 0 08/14 CMP Calci um mg/dL 8.4 10.2 8.7 FINAL Oziel Box * [facility] , [address] [facility] [id number] 0 08/14 CMP Chlor vipin mmol/L 96.0 107.0 109 High FINAL Oziel Box * [facility] , [address] [facility] [id number] 0 08/14 CMP CO2 mmol/L 22.0 30.0 [...] hour stability window. FINAL Oziel Box * [facility] , [address] [facility] [id number] 0 08/14 CMP Creat inine mg/dL 0.66 1.25 0.90 FINAL Oziel Box * [facility] , [address] [facility] [id number] 0 08/14 CMP GFR estim ate ml/min /1.73m ^2 66.5 GFR is calculate d using the CKD-EPI equation. FINAL Oziel Box * [facility] , [address] [facility] [id number] 0 08/14 CMP Gluco se mg/dL 74.0 100.0 95 FINAL Oziel Box * [facility] , [address] [facility] [id number] 0 08/14 CMP Potas sium mmol/L 3.5 5.1 4.5 FINAL Oziel Box * [facility] , [address] [facility] [id number] 0 08/14 CMP Sodiu m mmol/L 137.0 145.0 137 FINAL Oziel Box * [facility] , [address] [facility] [id number] 0 08/14 CMP Bilir ubin, total mg/dL 0.2 1.3 0.8 FINAL Oziel Box * [facility] , [address] [facility] [id number] 0 08/14 CMP Total prote in g/dL 6.3 8.2 6.5 FINAL Oziel Box * [facility] , [address] [facility] [id number] 0 08/14 CBC w/ auto diff WBC K/uL 3.0 8.9 4.7 FINAL Oziel Box [place] [facility] [place] [facility] , [address] [place] [id number] 0 08/14 CBC w/ auto diff HGB g/dL 11.3 15.2 11.5 FINAL Oziel Box [place] [facility] [place] [facility] , [address] [place] [id number] 0 08/14 CBC w/ auto diff PLT K/uL 113.0 364.0 211 FINAL Oziel Box [place] [facility] [place] [facility] , [address] [place] [id number] 0 08/14 CBC w/ auto diff Dave # (ANC) K/uL 1.6 6.6 2.9 FINAL Oziel Box [place] [facility] [place] [facility] , [address] [place] [id number] 0 08/14 CBC w/ auto diff Dave % % 43.0 74.0 61.3 FINAL Oziel Box [place] [facility] [place] [facility] , [address] [place] [id number] 0 08/14 CBC w/ auto diff IG % % 0.0 0.5 0.2 FINAL Oziel Box [place] [facility] [place] [facility] , [address] [place] [id number] 0 08/14 CBC w/ auto diff IG # K/uL 0.0 0.03 0.01 FINAL Oziel Box [place] [facility] [place] [facility] , [address] [place] [id number] 0 08/14 CBC w/ auto diff LY % % 14.0 41.0 25.6 FINAL Oziel Box [place] [facility] [place] [facility] , [address] [place] [id number] 0 08/14 CBC w/ auto diff MO % % 6.0 15.0 8.7 FINAL Oziel Box [place] [facility] [place] [facility] , [address] [place] [id number] 0 08/14 CBC w/ auto diff EO % % 0.0 7.0 3.8 FINAL Oziel Box [place] [facility] [place] [facility] , [address] [place] [id number] 0 08/14 CBC w/ auto diff BA % % 0.0 2.0 0.4 FINAL Oziel Box [place] [facility] [place] [facility] , [address] [place] [id number] 0 08/14 CBC w/ auto diff LY # K/uL 0.4 3.6 1.2 FINAL Oziel Box [place] [facility] [place] [facility] , [address] [place] [id number] 0 08/14 CBC w/ auto diff MO # K/uL 0.2 1.3 0.4 FINAL Oziel Box [place] [facility] [place] [facility] , [address] [place] [id number] 0 08/14 CBC w/ auto diff EO # K/uL 0.0 0.6 0.2 FINAL Oziel Box [place] [facility] [place] [facility] , [address] [place] [id number] 0 08/14 CBC w/ auto diff BA # K/uL 0.0 0.2 0.0 FINAL Oziel Box [place] [facility] [place] [facility] , [address] [place] [id number] 0 08/14 CBC w/ auto diff NRBC % #/100W BC 0.0 0.2 0.0 FINAL Oziel Box [place] [facility] [place] [facility] , [address] [place] [id number] 0 08/14 CBC w/ auto diff RBC M/uL 3.9 5.1 3.60 Low FINAL Oziel Box [place] [facility] [place] [facility] , [address] [place] [id number] 0 08/14 CBC w/ auto diff HCT % 35.0 48.0 35.2 FINAL Oziel Box [place] [facility] [place] [facility] , [address] [place] [id number] 0 08/14 CBC w/ auto diff MCV fL 80.0 104.0 97.8 FINAL Oziel Box [place] [facility] [place] [facility] , [address] [place] [id number] 0 08/14 CBC w/ auto diff MCH pg 26.0 35.0 31.9 FINAL Oziel Box [place] [facility] [place] [facility] , [address] [place] [id number] 0 08/14 CBC w/ auto diff MCHC g/dL 30.0 35.0 32.7 FINAL Oziel Box [place] [facility] [place] [facility] , [address] [place] [id number] 0 08/14 CBC w/ auto diff MPV fL 9.5 13.4 9.0 Low FINAL Oziel Box [place] [facility] [place] [facility] , [address] [place] [id number] 0 08/14 CBC w/ auto diff RDW % 11.4 16.1 13.60 FINAL Oziel Box [place] [facility] [place] [facility] , [address] [place] [phone] 0 Medications Date Name Route Dose Frequency Instructions Start Date End Date Status Baclofen Oral daily act charles Vitamin O65-Kxuwv Acid Oral 500 mcg-400 mcg daily active [...] concentration must be 0.3-1.2 mg/mL.Administ er using [id number] ining equipment and through an in-line 0.22 [...] Date Vitamin D3 (Cholecalciferol Oral) 2023 Vitamin T99-Ucqqv Acid Oral 500 mcg-400 mcg 11/13/2022 Gabapentin [...] BSA: 2.06, BMI: 36.56 kg/m2 Covid-19 vaccine ([facility]) (12/18/2020), Elsewhere; Covid-19 vaccine ([employer]) (10/09/2020), Elsewhere; Covid-19 vaccine ([employer]) (04/14/2021), Elsewhere; Flu vaccine - Adult (02/18/2024), [...] Oral 02/18/2024 Docusate Sodium Oral 02/18/2024 Vitamin T53-Iymyw Acid Oral 500 mcg-400 mcg 11/13/2022 Levothyroxine [...] signed by Oziel Box MD 02/21/2024 11:02 [employer] OFF[employer]ER
--- OUTSIDE RECORDS SUMMARY | 2024-09-18 09:53 | XMS_ITS ---
Author Name Interface, [id number] lity Address [address] [facility] [address] [address] [facility] Address [address] [facility] [address] [address] Allergies and Adverse Reactions Medication/Group Name Reaction [...] 20 MIN 05/13/2022 APPOINTMENT CHART CHECK 5 RI N 05/08/2022 APPOINTMENT OV 20 MIN 05/08/2022 [...] 15 MIN 02/20/2022 APPOINTMENT CHART CHECK 5 RI N 01/16/2022 APPOINTMENT PORT DRAW 15 MIN [...] K/uL 3.0 8.9 5.5 FINAL [facility] [place], [address] [facility] [address] [place] [facility] [phone] Phone: () - 10/24 CBC w/ auto diff HGB g/dL 11.3 15.2 12.0 FINAL [facility] [place], [address] [facility] [address] [place] [facility] [id number] 0 Phone: () - 10/24 CBC w/ auto diff PLT K/uL 113.0 364.0 211 FINAL [facility] [place], [address] [place] [facility] [phone] 0 Phone: () - 10/24 CBC w/ auto diff Dave # (ANC) K/uL 1.6 6.6 3.4 FINAL [facility] [place], [address] [facility] [address] [place] [phone] 0 Phone: () - 10/24 CBC w/ auto diff Dave % % 43.0 74.0 62.4 FINAL Lia Tolbert a [facility] - [place], [address] [facility] [address] [place] [id number] 0 Phone: () - 10/24 CBC w/ auto diff IG % % 0.0 0.5 1.1 High FINAL Lia Tilleyot a [facility] - [place], [address] [facility] [address] [place] [id number] 0 Phone: () - 10/24 CBC w/ auto diff IG # K/uL 0.0 0.03 0.06 High FINAL Lia Tolbert a [facility] - [place], [address] [facility] [address] [place] [id number] 0 Phone: () - 10/24 CBC w/ auto diff LY % % 14.0 41.0 22.2 FINAL Lia Tolbert a [facility] - [place], [address] [facility] [address] [place] [id number] 0 Phone: () - 10/24 CBC w/ auto diff MO % % 6.0 15.0 10.1 FINAL Lia Tolbert a [facility] - [place], [address] [facility] [address] [place] [id number] 0 Phone: () - 10/24 CBC w/ auto diff EO % % 0.0 7.0 3.8 FINAL Lia Tolbert [facility] - [place], [address] [facility] [address] [place] [phone] 0 Phone: () - 10/24 CBC w/ auto diff BA % % 0.0 2.0 0.4 FINAL Lia Tilleyot a [facility] - [place], [address] [facility] [address] [place] [id number] 0 Phone: () - 10/24 CBC w/ auto diff LY # K/uL 0.4 3.6 1.2 FINAL Lia Tilleyot a [facility] - [place], [address] [place] [id number] 0 Phone: () - 10/24 CBC w/ auto diff MO # K/uL 0.2 1.3 0.6 FINAL Lia Tilleyot a [facility] - [place], [address] [place] [id number] 0 Phone: () - 10/24 CBC w/ auto diff EO # K/uL 0.0 0.6 0.2 FINAL Lia Tilleyot a [facility] - [place], [address] [place] [id number] 0 Phone: () - 10/24 CBC w/ auto diff BA # K/uL 0.0 0.2 0.0 FINAL Lia Tilleyot a [facility] - [place], [address] [place] [id number] 0 Phone: () - 10/24 CBC w/ auto diff NRBC % #/100W BC 0.0 0.2 0.0 FINAL Lia Tolbert a [facility] - [place], [address] [place] [id number] 0 Phone: () - 10/24 CBC w/ auto diff RBC M/uL 3.9 5.1 3.62 Low FINAL Lia Tolbert a [facility] - [place], [address] [place] [id number] 0 Phone: () - 10/24 CBC w/ auto diff HCT % 35.0 48.0 35.7 FINAL Lia Tolbert a [facility] - [place], [address] [place] [id number] 0 Phone: () - 10/24 CBC w/ auto diff MCV fL 80.0 104.0 98.6 FINAL Lia Tilleyot a [facility] - [place], [address] [place] [id number] 0 Phone: () - 10/24 CBC w/ auto diff MCH pg 26.0 35.0 33.1 FINAL Lia Tilley gi [facility] - [place], [address] [facility] [address] [place] [id number] 0 Phone: () - 10/24 CBC w/ auto diff MCHC g/dL 30.0 35.0 33.6 FINAL Lia Tilley gi [facility] - [place], [address] [place] [id number] 0 Phone: () - 10/24 CBC w/ auto diff MPV fL 9.5 13.4 9.1 Low FINAL Lia Tilley gi [facility] - [place], [address] [place] [id number] 0 Phone: () - 10/24 CBC w/ auto diff RDW % 11.4 16.1 12.20 FINAL Lia Tilley gi [facility] - [place], [address] [facility] [address] [place] [id number] 0 Phone: () - 10/24 TSH w/ refle x to free T4 TSH uIU/ml 0.32 5.0 0.05 Low Test performed at [facility] on a Gramco 2000 Immunoass ay Analyzer that uses an immunoenz ymometric sandwich assay for analysis. Patient testing should not be performed using multiple methodharley amador due to analytica l variation seen between test methodharley amador. FINAL Lia Delgado [facility], [address] [place] [address] [place] [id number] 0 Phone: () - 10/24 CMP Album in g/dL 3.2 5.2 4.3 FINAL Liagi Delgado [facility], [address] [place] [id number] 0 Phone: () - 10/24 CMP Alkal ine phosp hatas e U/L 46.0 116.0 59 FINAL [facility], [address] [place] [id number] 0 Phone: () - 10/24 CMP ALT/S GPT U/L 7.0 40.0 12 FINAL [facility], [address] [facility] [id number] 0 Phone: () - 10/24 CMP AST/S GOT U/L 13.0 40.0 22 FINAL [facility], [address] [facility] 100 [facility] [id number] 0 Phone: () - 10/24 CMP BUN mg/dL 9.0 23.0 16 FINAL [place] [address] [address] [facility] 100 [facility] [id number] 0 Phone: () - 10/24 CMP Calci um mg/dL 8.7 10.4 9.7 FINAL [place] [address] [address] [facility] 100 [facility] [id number] 0 Phone: () - 10/24 CMP Chlor vipin mmol/L 96.0 114.0 110 [place] [address] [id number] 0 Phone: () - 10/24 CMP CO2 [...] of the 96 hour stability window. FINAL [facility], [facility] [address] [id number] 0 Phone: () - 10/24 CMP Creat inine mg/dL 0.5 1.2 0.83 FINAL [facility], [facility] N [address] [id number] 0 Phone: () - 10/24 CMP GFR estim ate ml/min /1.73m ^2 74.5 GFR is calculate d using the CKD-EPI equation. [facility], [facility] N [facility] 100 [facility] [id number] 0 Phone: () - 10/24 CMP Gluco se mg/dL 73.0 126.0 87 [facility] [place], [address] [id number] 0 Phone: () - 10/24 CMP Potas sium mmol/L 3.5 5.1 4.4 FINAL [facility] [address] [id number] 0 Phone: () - 10/24 CMP Sodiu m mmol/L 136.0 145.0 145 FINAL [facility] [address] [id number] 0 Phone: () - 10/24 CMP Bilir ubin, total mg/dL 0.3 1.2 0.4 [place] [address] [id number] 0 Phone: () - 10/24 CMP Total prote in g/dL 5.7 8.2 6.4 FINAL [place] [address] [id number] 0 Phone: () - 10/24 T4, free panel T4, free ng/dL 0.7 1.8 1.62 Test performed at [facility] on a Gramco 2000 Immunoass ay Analyzer that uses an immunoenz ymometric sandwich assay for analysis. Patient testing should not be performed using multiple methodolo gies due to analytica l variation seen between test methodolo gies. FINAL [place] [address] [id number] 0 Phone: () - 11/21 TSH w/ refle x to free T4 TSH uIU/ml 0.32 5.0 0.16 Low Test performed at [facility] on a Gramco 2000 Immunoass ay Analyzer that uses an immunoenz ymometric sandwich assay for analysis. Patient testing should not be performed using multiple methodolo gies due to analytica l variation seen between test methodolo gies. FINAL [facility] [address] [id number] 0 Phone: () - 11/21 CBC w/ auto diff WBC K/uL 3.0 8.9 4.1 FINAL Lia [facility] [place] [facility] [place], [address] [place] [id number] 0 Phone: () - 11/21 CBC w/ auto diff HGB g/dL 11.3 15.2 11.8 FINAL Lia Tilleyot a [facility] - [place], [address] [place] [id number] 0 Phone: () - 11/21 CBC w/ auto diff PLT K/uL 113.0 364.0 223 FINAL Lia Tilleyot a [facility] - [place], [address] [place] [id number] 0 Phone: () - 11/21 CBC w/ auto diff Dave # (ANC) K/uL 1.6 6.6 2.3 FINAL Lia Tolbert a [facility] - [place], [address] [place] [id number] 0 Phone: () - 11/21 CBC w/ auto diff Dave % % 43.0 74.0 56.3 FINAL Lia Tolbert a [facility] - [place], [address] [place] [id number] 0 Phone: () - 11/21 CBC w/ auto diff IG % % 0.0 0.5 0.2 FINAL Lia Tolbert a [facility] - [place], [address] [place] [id number] 0 Phone: () - 11/21 CBC w/ auto diff IG # K/uL 0.0 0.03 0.01 FINAL Lia Tilleyot a [facility] - [place], [address] [place] [id number] 0 Phone: () - 11/21 CBC w/ auto diff LY % % 14.0 41.0 29.0 FINAL Lia Tilleyot a [facility] - [place], [address] [place] [id number] 0 Phone: () - 11/21 CBC w/ auto diff MO % % 6.0 15.0 10.4 FINAL Lia Tilleyot a [facility] - [place], [address] [place] [id number] 0 Phone: () - 11/21 CBC w/ auto diff EO % % 0.0 7.0 3.9 FINAL Lai Tilleyot a [facility] - [place], [address] [place] [id number] 0 Phone: () - 11/21 CBC w/ auto diff BA % % 0.0 2.0 0.2 FINAL Lia Tilleyot a [facility] - [place], [address] [place] [id number] 0 Phone: () - 11/21 CBC w/ auto diff LY # K/uL 0.4 3.6 1.2 FINAL Lia Tilleyot a [facility] - [place], [address] [place] [id number] 0 Phone: () - 11/21 CBC w/ auto diff MO # K/uL 0.2 1.3 0.4 FINAL Lia Tilleyot a [facility] - [place], [address] [place] [id number] 0 Phone: () - 11/21 CBC w/ auto diff EO # K/uL 0.0 0.6 0.2 FINAL Lia Tilleyot a [facility] - [place], [address] [place] [id number] 0 Phone: () - 11/21 CBC w/ auto diff BA # K/uL 0.0 0.2 0.0 FINAL Lia Tilleyot a [facility] - [place], [address] [place] [id number] 0 Phone: () - 11/21 CBC w/ auto diff NRBC % #/100W BC 0.0 0.2 0.0 FINAL Lia Tilleyot a [facility] - [place], [address] [place] [id number] 0 Phone: () - 11/21 CBC w/ auto diff RBC M/uL 3.9 5.1 3.69 Low FINAL Lia Tilleyot a [facility] - [place], [address] [facility] [address] [place] [id number] 0 Phone: () - 11/21 CBC w/ auto diff HCT % 35.0 48.0 35.6 FINAL Lia Tilleyot gi [facility] - [place], [address] [facility] [address] [place] [id number] 0 Phone: () - 11/21 CBC w/ auto diff MCV fL 80.0 104.0 96.5 FINAL Lia Tilleyot a [facility] - [place], [address] [place] [address] d [address] [place] [id number] 0 Phone: () - 11/21 CBC w/ auto diff MCH pg 26.0 35.0 32.0 FINAL Lia angelo [facility] - [place], [address] [facility] [address] [place] [id number] 0 Phone: () - 11/21 CBC w/ auto diff MCHC g/dL 30.0 35.0 33.1 FINAL Lia angelo [facility] - [place], [address] [facility] [address] [place] [id number] 0 Phone: () - 11/21 CBC w/ auto diff MPV fL 9.5 13.4 9.0 Low FINAL Lia angelo [facility] - [place], [address] [facility] [address] [place] [id number] 0 Phone: () - 11/21 CBC w/ auto diff RDW % 11.4 16.1 12.40 FINAL Lia Tolbert a [facility] - [place], [facility] [address] [facility] [address] [place] [id number] 0 Phone: () - 11/21 CMP Album in g/dL 3.2 5.2 4.1 FINAL Lia Tilley a [facility] - [place], [address] [place] [id number] 0 Phone: () - 11/21 CMP Alkal ine phosp hatas e U/L 46.0 116.0 52 FINAL [facility], [address] [facility] [address] [id number] 0 Phone: () - 11/21 CMP ALT/S GPT U/L 7.0 40.0 17 FINAL [place] [address] [address] [facility] [address] [id number] 0 Phone: () - 11/21 CMP AST/S GOT U/L 13.0 40.0 24 FINAL [place] [address] [id number] 0 Phone: () - 11/21 CMP BUN mg/dL 9.0 23.0 14 FINAL [place] [address] [address] [facility] [address] [id number] 0 Phone: () - 11/21 CMP Calci um mg/dL 8.7 10.4 9.3 FINAL [place] [address] [address] [facility] [address] [id number] 0 Phone: () - 11/21 CMP Chlor vipin mmol/L 96.0 114.0 111 FINAL [place] [address] [address] [facility] [address] [id number] 0 Phone: () - 11/21 CMP CO2 [...] of the 96 hour stability window. FINAL [facility], [facility] [address] [place] [address] [id number] 0 Phone: () - 11/21 CMP Creat inine mg/dL 0.5 1.2 0.79 FINAL [place] [address] [id number] 0 Phone: () - 11/21 CMP GFR estim ate ml/min /1.73m ^2 79.1 GFR is calculate d using the CKD-EPI equation. FINAL [place] [address] [id number] 0 Phone: () - 11/21 CMP Gluco se mg/dL 73.0 126.0 86 FINAL [place] [address] [id number] 0 Phone: () - 11/21 CMP Potas sium mmol/L 3.5 5.1 4.[address] [id number] 0 Phone: () - 11/21 CMP Sodiu m mmol/L 136.0 145.0 144 FINAL [place] [address] [id number] 0 Phone: () - 11/21 CMP Bilir ubin, total mg/dL 0.3 1.2 0.3 FINAL [place] [address] [id number] 0 Phone: () - 11/21 CMP Total prote in g/dL 5.7 8.2 6.2 FINAL [place] [address] [id number] 0 Phone: () - 11/21 T4, free panel T4, free ng/dL 0.7 1.8 1.13 Test performed at [facility] on a Gramco 2000 Immunoass ay Analyzer that uses an immunoenz ymometric sandwich assay for analysis. Patient testing should not be performed using multiple kathi amador due to analytica l variation seen between test kathi amador. FINAL [place] [address] [id number] 0 Phone: () - 12/19 CBC w/ auto diff WBC K/uL 3.0 8.9 4.9 FINAL [facility] [place] [facility] [place], [address] [place] [id number] 0 Phone: () - 12/19 CBC w/ auto diff HGB g/dL 11.3 15.2 11.8 FINAL Oziel T[facility]leyot a [facility] - [place], [address] [place] [id number] 0 Phone: () - 12/19 CBC w/ auto diff PLT K/uL 113.0 364.0 218 FINAL Oziel Tilleyot a [facility] - [place], [address] [place] [id number] 0 Phone: () - 12/19 CBC w/ auto diff Dave # (ANC) K/uL 1.6 6.6 2.7 FINAL Oziel Tilleyot a [facility] - [place], [address] [place] [id number] 0 Phone: () - 12/19 CBC w/ auto diff Dave % % 43.0 74.0 55.3 FINAL Oziel Tilleyot a [facility] - [place], [address] [place] [id number] 0 Phone: () - 12/19 CBC w/ auto diff IG % % 0.0 0.5 0.2 FINAL Oziel Tilleyot a [facility] - [place], [address] [place] [id number] 0 Phone: () - 12/19 CBC w/ auto diff IG # K/uL 0.0 0.03 0.01 FINAL Oziel Tilleyot a [facility] - [place], [address] [place] [id number] 0 Phone: () - 12/19 CBC w/ auto diff LY % % 14.0 41.0 30.6 FINAL Oziel Tilleyot a [facility] - [place], [address] [place] [id number] 0 Phone: () - 12/19 CBC w/ auto diff MO % % 6.0 15.0 9.3 FINAL Oziel Tilleyot a [facility] - [place], [address] [place] [id number] 0 Phone: () - 12/19 CBC w/ auto diff EO % % 0.0 7.0 4.0 FINAL Oziel Tolbert a [facility] - [place], [address] [place] [id number] 0 Phone: () - 12/19 CBC w/ auto diff BA % % 0.0 2.0 0.6 FINAL Oziel Tolbert a [facility] - [place], [address] [place] [id number] 0 Phone: () - 12/19 CBC w/ auto diff LY # K/uL 0.4 3.6 1.5 FINAL Oziel Tilleyot a [facility] - [place], [address] [place] [id number] 0 Phone: () - 12/19 CBC w/ auto diff MO # K/uL 0.2 1.3 0.5 FINAL Oziel angelo [facility] - [place], [address] [place] [id number] 0 Phone: () - 12/19 CBC w/ auto diff EO # K/uL 0.0 0.6 0.2 FINAL Oziel angelo [facility] - [place], [address] [place] [id number] 0 Phone: () - 12/19 CBC w/ auto diff BA # K/uL 0.0 0.2 0.0 FINAL Oziel angelo [facility] - [place], [address] [place] [id number] 0 Phone: () - 12/19 CBC w/ auto diff NRBC % #/100W BC 0.0 0.2 0.0 FINAL Oziel Tolbert a [facility] - [place], [address] [place] [id number] 0 Phone: () - 12/19 CBC w/ auto diff RBC M/uL 3.9 5.1 3.68 Low FINAL Oziel angelo [facility] - [place], [address] [place] [id number] 0 Phone: () - 12/19 CBC w/ auto diff HCT % 35.0 48.0 35.3 FINAL Oziel angelo [facility] - [place], [address] [place] [id number] 0 Phone: () - 12/19 CBC w/ auto diff MCV fL 80.0 104.0 95.9 FINAL Oziel angelo [facility] - [place], [address] [place] [id number] 0 Phone: () - 12/19 CBC w/ auto diff MCH pg 26.0 35.0 32.1 FINAL Oziel angelo [facility] - [place], [address] [place] [id number] 0 Phone: () - 12/19 CBC w/ auto diff MCHC g/dL 30.0 35.0 33.4 FINAL Oziel angelo [facility] - [place], [address] [place] [id number] 0 Phone: () - 12/19 CBC w/ auto diff MPV fL 9.5 13.4 9.1 Low FINAL Oziel angelo [facility] - [place], [address] [place] [id number] 0 Phone: () - 12/19 CBC w/ auto diff RDW % 11.4 16.1 13.30 FINAL Oziel angelo [facility] - [place], [address] [place] [id number] 0 Phone: () - 12/19 CMP Album in g/dL 3.2 5.2 4.0 FINAL Oziel angelo [facility] - [place], [address] [place] [id number] 0 Phone: () - 12/19 CMP Alkal ine phosp hatas e U/L 46.0 116.0 58 FINAL Oziel angelo [facility], [address] [facility] 100 [facility] [id number] 0 Phone: () - 12/19 CMP ALT/S GPT U/L 7.0 40.0 13 FINAL Oziel angelo [facility] [address] [facility] 100 [facility] [id number] 0 Phone: () - 12/19 CMP AST/S GOT U/L 13.0 40.0 24 FINAL Oziel agnelo [place] [address] [address] [facility] [address] [id number] 0 Phone: () - 12/19 CMP BUN mg/dL 9.0 23.0 18 FINAL Oziel angelo [place] [address] [id number] 0 Phone: () - 12/19 CMP Calci um mg/dL 8.7 10.4 9.7 FINAL Oziel angelo [place] [address] [id number] 0 Phone: () - 12/19 CMP Chlor vipin mmol/L 96.0 114.0 111 FINAL Oziel angelo [facility] [address] [id number] 0 Phone: () - 12/19 CMP CO2 [...] 96 hour stability window. FINAL Oziel angelo [facility], [facility] [address] [id number] 0 Phone: () - 12/19 CMP Creat inine mg/dL 0.5 1.2 0.82 FINAL Oziel angelo [place] [address] [address] [facility] [address] [id number] 0 Phone: () - 12/19 CMP GFR estim ate ml/min /1.73m ^2 75.6 GFR is calculate d using the CKD-EPI equation. FINAL Oziel angelo [facility], [address] [facility] 100 [facility] [id number] 0 Phone: () - 12/19 CMP Gluco se mg/dL 73.0 126.0 81 FINAL Oziel angelo [facility] [address] [facility] 100 [facility] [id number] 0 Phone: () - 12/19 CMP Potas sium mmol/L 3.5 5.1 4.4 FINAL Oziel angelo [facility] [address] [facility] 100 [facility] [id number] 0 Phone: () - 12/19 CMP Sodiu m mmol/L 136.0 145.0 144 FINAL Oziel angelo [place] [address] [id number] 0 Phone: () - 12/19 CMP Bilir ubin, total mg/dL 0.3 1.2 0.4 FINAL Oziel angelo [place] [address] [address] [facility] [address] [id number] 0 Phone: () - 12/19 CMP Total prote in g/dL 5.7 8.2 6.3 FINAL Oziel angelo [place] [address] [id number] 0 Phone: () - 12/19 TSH w/ refle x to free T4 TSH uIU/ml 0.32 5.0 2.75 Test performed at [facility] on a Gramco 2000 Immunoass ay Analyzer that uses an immunoenz ymometric sandwich assay for analysis. Patient testing should not be performed using multiple methodharley amador due to analytica l variation seen between test kathi amador. FINAL Oziel angelo [facility], [address] [facility] 100 [facility] [id number] 0 Phone: () - 01/12 [facility] [place] See ethylene oxide panelboard operator d 01/16 CMP Album in g/dL 3.2 5.2 4.3 FINAL Oziel angelo [facility] [address] [facility] 100 [facility] [id number] 0 Phone: () - 01/16 CMP Alkal ine phosp hatas e U/L 46.0 116.0 64 FINAL Oziel angelo [facility], [address] [facility] 100 [facility] [id number] 0 Phone: () - 01/16 CMP ALT/S GPT U/L 7.0 40.0 12 FINAL Oziel angelo [facility] [address] [facility] 100 [facility] [id number] 0 Phone: () - 01/16 CMP AST/S GOT U/L 13.0 40.0 23 FINAL Oziel angelo [place] [address] [address] [facility] [address] [id number] 0 Phone: () - 01/16 CMP BUN mg/dL 9.0 23.0 17 FINAL Oziel angelo [place] [address] [id number] 0 Phone: () - 01/16 CMP Calci um mg/dL 8.7 10.4 9.4 FINAL Oziel angelo [place] [address] [id number] 0 Phone: () - 01/16 CMP Chlor vipin mmol/L 96.0 114.0 108 FINAL Oziel angelo [place] [address] [id number] 0 Phone: () - 01/16 CMP CO2 [...] 96 hour stability window. FINAL Oziel angelo [place] [address] [address] [facility] [address] [id number] 0 Phone: () - 01/16 CMP Creat inine mg/dL 0.5 1.2 1.07 FINAL Oziel angelo [facility] [address] [facility] 100 [facility] [id number] 0 Phone: () - 01/16 CMP GFR estim ate ml/min /1.73m ^2 54.9 Low GFR is calculate d using the CKD-EPI equation. FINAL Oziel angelo [place] [address] [id number] 0 Phone: () - 01/16 CMP Gluco se mg/dL 73.0 126.0 84 FINAL Oziel angelo [place] [address] [address] [facility] [address] [id number] 0 Phone: () - 01/16 CMP Potas sium mmol/L 3.5 5.1 4.4 FINAL Oziel angelo [place] [address] [id number] 0 Phone: () - 01/16 CMP Sodiu m mmol/L 136.0 145.0 141 FINAL Oziel angelo [place] [address] [id number] 0 Phone: () - 01/16 CMP Bilir ubin, total mg/dL 0.3 1.2 0.4 FINAL Oziel angelo [place] [address] [id number] 0 Phone: () - 01/16 CMP Total prote in g/dL 5.7 8.2 6.6 FINAL Oziel angelo [place] [address] [id number] 0 Phone: () - 01/16 TSH w/ refle x to free T4 TSH uIU/ml 0.32 5.0 14.74 High Provider Alert. Notified Vicki by Lynne Flannery on 01/19/2022 at 2:55 PM.Test performed at [facility] on a Gramco 2000 Immunoass ay Analyzer that uses an immunoenz ymometric sandwich assay for analysis. Patient testing should not be performed using multiple kathi amador due to analytica l variation seen between test kathi amador. FINAL Oziel angelo [place] [address] [address] [facility] [address] [id number] 0 Phone: () - 01/16 CBC w/ auto diff WBC K/uL 3.0 8.9 4.4 FINAL Oziel angelo [facility], [address] [place] [id number] 0 Phone: () - 01/16 CBC w/ auto diff HGB g/dL 11.3 15.2 11.9 FINAL [facility]iel [facility] - [place], [address] [place] [id number] 0 Phone: () - 01/16 CBC w/ auto diff PLT K/uL 113.0 364.0 231 FINAL [facility]iel [facility] - [place], [address] [address] [place] [id number] 0 Phone: () - 01/16 CBC w/ auto diff Dave # (ANC) K/uL 1.6 6.6 2.4 FINAL [facility] [place], [address] [place] [id number] 0 Phone: () - 01/16 CBC w/ auto diff Dave % % 43.0 74.0 54.7 FINAL [facility] - [place], [address] [place] [id number] 0 Phone: () - 01/16 CBC w/ auto diff IG % % 0.0 0.5 0.2 FINAL [facility] - [place], [address] [place] [id number] 0 Phone: () - 01/16 CBC w/ auto diff IG # K/uL 0.0 0.03 0.01 FINAL [facility] [place], [address] [place] [id number] 0 Phone: () - 01/16 CBC w/ auto diff LY % % 14.0 41.0 31.8 FINAL [facility] [place], [address] [place] [id number] 0 Phone: () - 01/16 CBC w/ auto diff MO % % 6.0 15.0 8.9 FINAL [facility] [place], [address] [place] [id number] 0 Phone: () - 01/16 CBC w/ auto diff EO % % 0.0 7.0 3.9 FINAL [facility] [place], [address] [place] [id number] 0 Phone: () - 01/16 CBC w/ auto diff BA % % 0.0 2.0 0.5 FINAL [facility] - [place], [address] [place] [id number] 0 Phone: () - 01/16 CBC w/ auto diff LY # K/uL 0.4 3.6 1.4 FINAL [facility] - [place], [address] [place] [id number] 0 Phone: () - 01/16 CBC w/ auto diff MO # K/uL 0.2 1.3 0.4 FINAL [facility] [place], [address] [place] [id number] 0 Phone: () - 01/16 CBC w/ auto diff EO # K/uL 0.0 0.6 0.2 FINAL [facility] [place], [address] [place] [id number] 0 Phone: () - 01/16 CBC w/ auto diff BA # K/uL 0.0 0.2 0.0 FINAL [facility] - [place], [address] [place] [id number] 0 Phone: () - 01/16 CBC w/ auto diff NRBC % #/100W BC 0.0 0.2 0.0 FINAL [facility] [place], [address] [place] [id number] 0 Phone: () - 01/16 CBC w/ auto diff RBC M/uL 3.9 5.1 3.69 Low FINAL [facility] [place] [facility] [place], [address] [place] [id number] 0 Phone: () - 01/16 CBC w/ auto diff HCT % 35.0 48.0 35.0 FINAL [facility] [place], [address] [place] [id number] 0 Phone: () - 01/16 CBC w/ auto diff MCV fL 80.0 104.0 94.9 FINAL [facility] [place], [address] [place] [id number] 0 Phone: () - 01/16 CBC w/ auto diff MCH pg 26.0 35.0 32.2 FINAL [facility] [place], [address] [place] [id number] 0 Phone: () - 01/16 CBC w/ auto diff MCHC g/dL 30.0 35.0 34.0 FINAL [facility] [place], [address] [place] [id number] 0 Phone: () - 01/16 CBC w/ auto diff MPV fL 9.5 13.4 8.8 Low FINAL [facility] [place], [address] [place] [id number] 0 Phone: () - 01/16 CBC w/ auto diff RDW % 11.4 16.1 13.90 FINAL [facility] [place], [address] [place] [id number] 0 Phone: () - 01/16 T4, free panel T4, free ng/dL 0.7 1.8 0.75 Test performed at [facility] on a Ideal Powerass ay Analyzer that uses an immunoenz ymometric sandwich assay for analysis. Patient testing should not be performed using multiple methodharley amador due to analytica l variation seen between test methodharley amador. FINAL [facility] - [place], [address] [place] [id number] 0 Phone: () - 02/20 TSH w/ refle x to free T4 TSH uIU/ml 0.32 5.0 Sent to Refer ce Lab. Hard copy results availab le only. Test performed at [facility] on a Converser Immunoass ay Analyzer that uses an immunoenz ymometric sandwich assay for analysis. Patient testing should not be performed using multiple methodolo marjorie due to analytica l variation seen between test methodolo ginaun. FINAL [facility] angelo [facility], [address] [facility] [id number] 0 Phone: () - 02/20 TSH uIU/mL 0.35 4.94 8.74 High In Adults, TSH values between 5.00 and 10.00 uIU/ml do notnecess arily indicate the presence of Hypothyro idism.Cor relation with clinical findings such as presence of goiterand /or Thyropero xidase (TPO) Antibody may be helpful. Formore informati on please refer to MAYELA 2004; 291: 228-238.T est Performed by:31[facility] [address] - [place], [place] [id number] e [phone] FINAL [facility] 02/20 T4, free panel T4, free ng/dL 0.7 1.8 1.01 Test Performed by:31[facility] [address] - [place], [place] [address]Rldk e : FINAL [facility] 05/08 CBC w/ auto diff WBC K/uL 3.0 8.9 7.3 FINAL [facility] [place], [address] [facility] [address] [facility] [place] [id number] 0 Phone: () - 05/08 CBC w/ auto diff HGB g/dL 11.3 15.2 11.0 Low FINAL [facility] [place], [address] [facility] [address] [place] [id number] 0 Phone: () - 05/08 CBC w/ auto diff PLT K/uL 113.0 364.0 210 FINAL [facility] [place] [facility] [place], [address] [place] [id number] 0 Phone: () - 05/08 CBC w/ auto diff Dave # (ANC) K/uL 1.6 6.6 3.7 FINAL [facility] - [place], [address] [place] [id number] 0 Phone: () - 05/08 CBC w/ auto diff Dave % % 43.0 74.0 51.1 FINAL [facility] - [place], [address] [place] [id number] 0 Phone: () - 05/08 CBC w/ auto diff IG % % 0.0 0.5 0.3 FINAL [facility] - [place], [address] [place] [id number] 0 Phone: () - 05/08 CBC w/ auto diff IG # K/uL 0.0 0.03 0.02 FINAL [facility] - [place], [address] [place] [id number] 0 Phone: () - 05/08 CBC w/ auto diff LY % % 14.0 41.0 37.9 FINAL [facility] - [place], [address] [place] [id number] 0 Phone: () - 05/08 CBC w/ auto diff MO % % 6.0 15.0 9.2 FINAL [facility] - [place], [address] [place] [id number] 0 Phone: () - 05/08 CBC w/ auto diff EO % % 0.0 7.0 1.2 FINAL [facility] - [place], [address] [place] [id number] 0 Phone: () - 05/08 CBC w/ auto diff BA % % 0.0 2.0 0.3 FINAL [facility] - [place], [address] [place] [id number] 0 Phone: () - 05/08 CBC w/ auto diff LY # K/uL 0.4 3.6 2.8 FINAL [facility] - [place], [address] [place] [id number] 0 Phone: () - 05/08 CBC w/ auto diff MO # K/uL 0.2 1.3 0.7 FINAL [facility] - [place], [address] [place] [id number] 0 Phone: () - 05/08 CBC w/ auto diff EO # K/uL 0.0 0.6 0.1 FINAL [facility] - [place], [address] [place] [id number] 0 Phone: () - 05/08 CBC w/ auto diff BA # K/uL 0.0 0.2 0.0 FINAL [facility] - [place], [address] [place] [id number] 0 Phone: () - 05/08 CBC w/ auto diff NRBC % #/100W BC 0.0 0.2 0.0 FINAL [facility] - [place], [address] [place] [id number] 0 Phone: () - 05/08 CBC w/ auto diff RBC M/uL 3.9 5.1 3.27 Low FINAL [facility] - [place], [address] [place] [id number] 0 Phone: () - 05/08 CBC w/ auto diff HCT % 35.0 48.0 32.1 Low FINAL [facility] [place], [address] [place] [id number] 0 Phone: () - 05/08 CBC w/ auto diff MCV fL 80.0 104.0 98.2 FINAL [facility] [place], [address] [place] [id number] 0 Phone: () - 05/08 CBC w/ auto diff MCH pg 26.0 35.0 33.6 FINAL [facility] [place], [address] [place] [id number] 0 Phone: () - 05/08 CBC w/ auto diff MCHC g/dL 30.0 35.0 34.3 FINAL [facility] - [place], [address] [place] [id number] 0 Phone: () - 05/08 CBC w/ auto diff MPV fL 9.5 13.4 9.4 Low FINAL [facility] - [place], [address] [place] [id number] 0 Phone: () - 05/08 CBC w/ auto diff RDW % 11.4 16.1 13.10 FINAL [facility] - [place], [address] [place] [id number] 0 Phone: () - 05/08 CMP Album in g/dL 3.2 5.2 4.0 FINAL [facility], [address] [place] [address] [place] [id number] 0 Phone: () - 05/08 CMP Alkal ine phosp hatas e U/L 46.0 116.0 56 FINAL [facility], [address] [place] [id number] 0 Phone: () - 05/08 CMP ALT/S GPT U/L 7.0 40.0 17 FINAL [facility], [address] [place] [id number] 0 Phone: () - 05/08 CMP AST/S GOT U/L 13.0 40.0 21 FINAL [facility], [address] [place] [id number] 0 Phone: () - 05/08 CMP BUN mg/dL 9.0 23.0 22 FINAL [facility] [place] [address] [id number] 0 Phone: () - 05/08 CMP Calci um mg/dL 8.7 10.4 9.3 FINAL [facility] angel[facility] [place] [address] [id number] 0 Phone: () - 05/08 CMP Chlor vipin mmol/L 96.0 114.0 112 FINAL [facility] angelo [place] [address] [id number] 0 Phone: () - 05/08 CMP CO2 [...] 96 hour stability window. FINAL [facility] [place] [address] [id number] 0 Phone: () - 05/08 CMP Creat inine mg/dL 0.5 1.2 0.86 FINAL [facility] [place] [address] [id number] 0 Phone: () - 05/08 CMP GFR estim ate ml/min /1.73m ^2 71.2 GFR is calculate d using the CKD-EPI equation. FINAL [facility] [place] [address] [id number] 0 Phone: () - 05/08 CMP Gluco se mg/dL 73.0 126.0 77 FINAL [facility] [place] [address] [id number] 0 Phone: () - 05/08 CMP Potas sium mmol/L 3.5 5.1 3.9 FINAL [facility] [place] [address] [place] [id number] 0 Phone: () - 05/08 CMP Sodiu m mmol/L 136.0 145.0 148 High FINAL [facility] angel[facility] [address] [facility] 100 [facility] [id number] 0 Phone: () - 05/08 CMP Bilir ubin, total mg/dL 0.3 1.2 0.4 FINAL [facility] [address] [facility] 100 [facility] [id number] 0 Phone: () - 05/08 CMP Total prote in g/dL 5.7 8.2 6.1 FINAL [facility] angel[facility] [address] [facility] 100 [facility] [id number] 0 Phone: () - 05/08 TSH w/ refle x to free T4 TSH uIU/ml 0.32 5.0 1.36 Test performed at [facility] on a Converser Immunoass ay Analyzer that uses an immunoenz ymometric sandwich assay for analysis. Patient testing should not be performed using multiple methodharley amador due to analytica l variation seen between test methodharley amador. FINAL Oziel angelo [facility] [address] [id number] 0 Phone: () - 07/23 [facility] [place] See ethylene oxide panelboard operator d 07/23 [facility] [place] See ethylene oxide panelboard operator d 11/03 CMP Album in g/dL 3.2 5.2 4.1 FINAL [facility] [place] [address] [address] [facility] 100 [facility] [id number] 0 Phone: () - 11/03 CMP Alkal ine phosp hatas e U/L 46.0 116.0 59 FINAL [facility] angelo [place] [address] [address] [facility] 100 [facility] [id number] 0 Phone: () - 11/03 CMP ALT/S GPT U/L 7.0 40.0 <7 FINAL Oz[facility] angel[facility] [address] [facility] 100 [facility] [id number] 0 Phone: () - 11/03 CMP AST/S GOT U/L 13.0 40.0 24 FINAL Oziel angelo [facility], [address] [facility] 100 [facility] [id number] 0 Phone: () - 11/03 CMP BUN mg/dL 9.0 23.0 16.0 FINAL Oziel angel[facility] [address] [facility] 100 [facility] [id number] 0 Phone: () - 11/03 CMP Calci um mg/dL 8.7 10.4 9.1 FINAL [facility] angelo [place] [address] [id number] 0 Phone: () - 11/03 CMP Chlor vipin mmol/L 96.0 114.0 105 FINAL [facility] angelo [place] [address] [id number] 0 Phone: () - 11/03 CMP CO2 [...] 96 hour stability window. FINAL Oziel angelo [facility], [facility] [address] [id number] 0 Phone: () - 11/03 CMP Creat inine mg/dL 0.5 1.2 0.88 FINAL [facility] angelo [place] [address] [id number] 0 Phone: () - 11/03 CMP GFR estim ate ml/min /1.73m ^2 69.0 GFR is calculate d using the CKD-EPI equation. FINAL [facility] angel[facility] [place] [address] [id number] 0 Phone: () - 11/03 CMP Gluco se mg/dL 73.0 126.0 105 FINAL [facility] angelo [place] [address] [id number] 0 Phone: () - 11/03 CMP Potas sium mmol/L 3.5 5.1 4.4 FINAL [facility] [place], [address] [place] [id number] 0 Phone: () - 11/03 CMP Sodiu m mmol/L 136.0 145.0 139 FINAL [facility], [address] [place] [id number] 0 Phone: () - 11/03 CMP Bilir ubin, total mg/dL 0.3 1.2 0.6 FINAL [facility] angel[facility], [address] [place] [id number] 0 Phone: () - 11/03 CMP Total prote in g/dL 5.7 8.2 6.6 FINAL [facility] angel[facility], [address] [place] [id number] 0 Phone: () - 11/03 CBC w/ auto diff WBC K/uL 3.0 8.9 4.7 FINAL [facility] - [place] , [address] [facility] [address] [facility] [place] [id number] 0 Phone: () - 11/03 CBC w/ auto diff HGB g/dL 11.3 15.2 11.6 FINAL [facility] - [place] , [address] [facility] [address] [facility] [place] [id number] 0 Phone: () - 11/03 CBC w/ auto diff PLT K/uL 113.0 364.0 248 FINAL [facility] [place], [address] [facility] [place] [id number] 0 Phone: () - 11/03 CBC w/ auto diff Dave # (ANC) K/uL 1.6 6.6 2.9 FINAL [facility] - [place], [address] [place] [address] [address] [facility] [place] [id number] 0 Phone: () - 11/03 CBC w/ auto diff Dave % % 43.0 74.0 60.9 FINAL [facility] [place] [facility] [place], [address] [place] [id number] 0 Phone: () - 11/03 CBC w/ auto diff IG % % 0.0 0.5 0.4 FINAL [facility] - [place], [address] [place] [id number] 0 Phone: () - 11/03 CBC w/ auto diff IG # K/uL 0.0 0.03 0.02 FINAL [facility] - [place], [address] [place] [id number] 0 Phone: () - 11/03 CBC w/ auto diff LY % % 14.0 41.0 26.8 FINAL [facility] [place], [address] [place] [id number] 0 Phone: () - 11/03 CBC w/ auto diff MO % % 6.0 15.0 8.5 FINAL [facility] - [place], [address] [place] [id number] 0 Phone: () - 11/03 CBC w/ auto diff EO % % 0.0 7.0 3.0 FINAL [facility] - [place], [address] [place] [id number] 0 Phone: () - 11/03 CBC w/ auto diff BA % % 0.0 2.0 0.4 FINAL [facility] - [place], [address] [place] [id number] 0 Phone: () - 11/03 CBC w/ auto diff LY # K/uL 0.4 3.6 1.3 FINAL [facility] - [place], [address] [place] [id number] 0 Phone: () - 11/03 CBC w/ auto diff MO # K/uL 0.2 1.3 0.4 FINAL [facility] - [place], [address] [place] [id number] 0 Phone: () - 11/03 CBC w/ auto diff EO # K/uL 0.0 0.6 0.1 FINAL [facility] - [place], [address] [place] [id number] 0 Phone: () - 11/03 CBC w/ auto diff BA # K/uL 0.0 0.2 0.0 FINAL [facility] - [place], [address] [place] [id number] 0 Phone: () - 11/03 CBC w/ auto diff NRBC % #/100W BC 0.0 0.2 0.0 FINAL [facility] - [place], [address] [place] [id number] 0 Phone: () - 11/03 CBC w/ auto diff RBC M/uL 3.9 5.1 3.52 Low FINAL [facility] - [place], [address] [place] [id number] 0 Phone: () - 11/03 CBC w/ auto diff HCT % 35.0 48.0 34.2 Low FINAL [facility] - [place], [address] [place] [id number] 0 Phone: () - 11/03 CBC w/ auto diff MCV fL 80.0 104.0 97.2 FINAL [facility] - [place], [address] [place] [id number] 0 Phone: () - 11/03 CBC w/ auto diff MCH pg 26.0 35.0 33.0 FINAL [facility] - [place], [address] [place] [id number] 0 Phone: () - 11/03 CBC w/ auto diff MCHC g/dL 30.0 35.0 33.9 FINAL [facility] - [place], [address] [place] [id number] 0 Phone: () - 11/03 CBC w/ auto diff MPV fL 9.5 13.4 8.7 Low FINAL [facility] - [place], [address] [place] [id number] 0 Phone: () - 11/03 CBC w/ auto diff RDW % 11.4 16.1 14.40 FINAL [facility] - [place], [address] [place] [id number] 0 Phone: () - 02/08 TSH w/ refle x to free T4 TSH uIU/ml 0.32 5.0 3.61 Test performed at [facility] on a Converser Immunoass ay Analyzer that uses an immunoenz ymometric sandwich assay for analysis. Patient testing should not be performed using multiple methodharley amador due to analytica l variation seen between test methodharley amador. FINAL [facility] - [place], [address] [place] [id number] 0 Phone: () - 02/08 CBC w/ auto diff WBC K/uL 3.0 8.9 4.7 FINAL [facility] - [place], [address] [place] [id number] 0 Phone: () - 02/08 CBC w/ auto diff HGB g/dL 11.3 15.2 11.0 Low FINAL [facility] - [place], [address] [place] [id number] 0 Phone: () - 02/08 CBC w/ auto diff PLT K/uL 113.0 364.0 194 FINAL [facility] - [place], [address] [place] [id number] 0 Phone: () - 02/08 CBC w/ auto diff Dave # (ANC) K/uL 1.6 6.6 2.7 FINAL [facility] [place] [facility] [place], [address] [place] [id number] 0 Phone: () - 02/08 CBC w/ auto diff Dave % % 43.0 74.0 57.2 FINAL [facility] - [place], [address] [place] [id number] 0 Phone: () - 02/08 CBC w/ auto diff IG % % 0.0 0.5 0.4 FINAL [facility] - [place], [address] [place] [id number] 0 Phone: () - 02/08 CBC w/ auto diff IG # K/uL 0.0 0.03 0.02 FINAL [facility] - [place], [address] [place] [id number] 0 Phone: () - 02/08 CBC w/ auto diff LY % % 14.0 41.0 31.6 FINAL [facility] - [place], [address] [place] [id number] 0 Phone: () - 02/08 CBC w/ auto diff MO % % 6.0 15.0 8.0 FINAL [facility] - [place], [address] [place] [id number] 0 Phone: () - 02/08 CBC w/ auto diff EO % % 0.0 7.0 2.2 FINAL [facility] - [place], [address] [place] [id number] 0 Phone: () - 02/08 CBC w/ auto diff BA % % 0.0 2.0 0.6 FINAL [facility] - [place], [address] [place] [id number] 0 Phone: () - 02/08 CBC w/ auto diff LY # K/uL 0.4 3.6 1.5 FINAL [facility] - [place], [address] [place] [id number] 0 Phone: () - 02/08 CBC w/ auto diff MO # K/uL 0.2 1.3 0.4 FINAL [facility] - [place], [address] [place] [id number] 0 Phone: () - 02/08 CBC w/ auto diff EO # K/uL 0.0 0.6 0.1 FINAL [facility] - [place], [address] [place] [id number] 0 Phone: () - 02/08 CBC w/ auto diff BA # K/uL 0.0 0.2 0.0 FINAL [facility] - [place], [address] [place] [id number] 0 Phone: () - 02/08 CBC w/ auto diff NRBC % #/100W BC 0.0 0.2 0.0 FINAL [facility] - [place], [address] [place] [id number] 0 Phone: () - 02/08 CBC w/ auto diff RBC M/uL 3.9 5.1 3.26 Low FINAL [facility] - [place], [address] [place] [id number] 0 Phone: () - 02/08 CBC w/ auto diff HCT % 35.0 48.0 32.9 Low FINAL [facility] - [place], [address] [place] [id number] 0 Phone: () - 02/08 CBC w/ auto diff MCV fL 80.0 104.0 100.9 FINAL [facility] - [place], [address] [place] [id number] 0 Phone: () - 02/08 CBC w/ auto diff MCH pg 26.0 35.0 33.7 FINAL [facility] - [place], [address] [place] [id number] 0 Phone: () - 02/08 CBC w/ auto diff MCHC g/dL 30.0 35.0 33.4 FINAL [facility] - [place], [address] [place] [id number] 0 Phone: () - 02/08 CBC w/ auto diff MPV fL 9.5 13.4 9.0 Low FINAL [facility] - [place], [address] [place] [id number] 0 Phone: () - 02/08 CBC w/ auto diff RDW % 11.4 16.1 13.70 FINAL [facility] - [place], [address] [facility] [address] [place] [id number] 0 Phone: () - 02/08 CMP Album in g/dL 3.2 5.2 4.0 FINAL Oziel angelo [facility], [address] [facility] [id number] 0 Phone: () - 02/08 CMP Alkal ine phosp hatas e U/L 46.0 116.0 83 FINAL Oziel angelo [facility], [address] [place] [id number] 0 Phone: () - 02/08 CMP ALT/S GPT U/L 7.0 40.0 <7 FINAL Oziel angelo [facility], [address] [place] [id number] 0 Phone: () - 02/08 CMP AST/S GOT U/L 13.0 40.0 23 FINAL Oziel angelo [facility], [address] [place] [id number] 0 Phone: () - 02/08 CMP BUN mg/dL 9.0 23.0 17.0 FINAL Oziel angelo [facility], [address] [place] [id number] 0 Phone: () - 02/08 CMP Calci um mg/dL 8.7 10.4 8.8 FINAL Oziel angelo [place] [address] [id number] 0 Phone: () - 02/08 CMP Chlor vipin mmol/L 96.0 114.0 109 FINAL Oziel angelo [place] [address] [id number] 0 Phone: () - 02/08 CMP CO2 [...] 96 hour stability window. FINAL Oziel angelo [place] [address] [id number] 0 Phone: () - 02/08 CMP Creat inine mg/dL 0.5 1.2 0.86 FINAL Oziel angelo [place] [address] [id number] 0 Phone: () - 02/08 CMP GFR estim ate ml/min /1.73m ^2 70.9 GFR is calculate d using the CKD-EPI equation. FINAL Oziel angelo [place] [address] [id number] 0 Phone: () - 02/08 CMP Gluco se mg/dL 73.0 126.0 84 FINAL [facility] [place] [address] [address] [facility] [address] [id number] 0 Phone: () - 02/08 CMP Potas sium mmol/L 3.5 5.1 4.5 FINAL Oziel angelo [place] [address] [id number] 0 Phone: () - 02/08 CMP Sodiu m mmol/L 136.0 145.0 141 FINAL [facility] [place] [address] [address] [facility] [address] [id number] 0 Phone: () - 02/08 CMP Bilir ubin, total mg/dL 0.3 1.2 0.3 FINAL [facility] - [place], [address] [place] [id number] 0 Phone: () - 02/08 CMP Total prote in g/dL 5.7 8.2 6.1 FINAL [facility] - [place], [address] [place] [place] [id number] 0 Phone: () - 06/06 [facility] [place] See ethylene oxide panelboard operator d 08/09 CBC w/ auto diff WBC K/uL 3.0 8.9 3.5 FINAL [facility] - [place], [address] [facility] [address] [place] [id number] 0 Phone: () - 08/09 CBC w/ auto diff HGB g/dL 11.3 15.2 11.7 FINAL [facility] - [place], [address] [facility] [address] [place] [id number] 0 Phone: () - 08/09 CBC w/ auto diff PLT K/uL 113.0 364.0 196 FINAL [facility] - [place], [address] [place] [id number] 0 Phone: () - 08/09 CBC w/ auto diff Dave # (ANC) K/uL 1.6 6.6 1.9 FINAL [facility] - [place], [address] [place] [id number] 0 Phone: () - 08/09 CBC w/ auto diff Dave % % 43.0 74.0 52.2 FINAL [facility] - [place], [address] [place] [id number] 0 Phone: () - 08/09 CBC w/ auto diff IG % % 0.0 0.5 0.3 FINAL [facility] - [place], [address] [place] [id number] 0 Phone: () - 08/09 CBC w/ auto diff IG # K/uL 0.0 0.03 0.01 FINAL [facility] - [place], [address] [place] [id number] 0 Phone: () - 08/09 CBC w/ auto diff LY % % 14.0 41.0 35.0 FINAL [facility] - [place], [address] [place] [id number] 0 Phone: () - 08/09 CBC w/ auto diff MO % % 6.0 15.0 9.6 FINAL [facility] - [place], [address] [place] [id number] 0 Phone: () - 08/09 CBC w/ auto diff EO % % 0.0 7.0 2.3 FINAL [facility] - [place], [address] [place] [id number] 0 Phone: () - 08/09 CBC w/ auto diff BA % % 0.0 2.0 0.6 FINAL [facility] - [place], [address] [place] [id number] 0 Phone: () - 08/09 CBC w/ auto diff LY # K/uL 0.4 3.6 1.2 FINAL [facility] angel[facility] - [place], [address] [place] [id number] 0 Phone: () - 08/09 CBC w/ auto diff MO # K/uL 0.2 1.3 0.3 FINAL [facility] - [place], [address] [place] [id number] 0 Phone: () - 08/09 CBC w/ auto diff EO # K/uL 0.0 0.6 0.1 FINAL [facility] - [place], [address] [place] [id number] 0 Phone: () - 08/09 CBC w/ auto diff BA # K/uL 0.0 0.2 0.0 FINAL [facility] - [place], [address] [place] [id number] 0 Phone: () - 08/09 CBC w/ auto diff NRBC % #/100W BC 0.0 0.2 0.0 FINAL [facility] - [place], [address] [place] [id number] 0 Phone: () - 08/09 CBC w/ auto diff RBC M/uL 3.9 5.1 3.51 Low FINAL [facility] - [place], [address] [place] [id number] 0 Phone: () - 08/09 CBC w/ auto diff HCT % 35.0 48.0 35.6 FINAL [facility] - [place], [address] [place] [id number] 0 Phone: () - 08/09 CBC w/ auto diff MCV fL 80.0 104.0 101.4 FINAL [facility] - [place], [address] [place] [id number] 0 Phone: () - 08/09 CBC w/ auto diff MCH pg 26.0 35.0 33.3 FINAL [facility] - [place], [address] [place] [id number] 0 Phone: () - 08/09 CBC w/ auto diff MCHC g/dL 30.0 35.0 32.9 FINAL [facility] - [place], [address] [place] [id number] 0 Phone: () - 08/09 CBC w/ auto diff MPV fL 9.5 13.4 9.3 Low FINAL Oziel Tilley[facility] a [facility] - [place], [address] [facility] [address] [place] [id number] 0 Phone: () - 08/09 CBC w/ auto diff RDW % 11.4 16.1 13.20 FINAL [facility]iel [facility] - [place], [address] [facility] [address] [place] [id number] 0 Phone: () - 08/09 CMP Album in g/dL 3.5 5.0 4.1 FINAL [facility]iel Box * [place] [facility] [facility], [address] [facility] [id number] 0 08/09 CMP Alkal ine phosp hatas e U/L 36.0 125.0 66 FINAL Oziel Box * [place] [facility], [address] [facility] [id number] 0 08/09 CMP ALT/S GPT U/L 0.0 34.0 6 FINAL Oziel Box * [place] [facility] [facility], [address] [facility] [id number] 0 08/09 CMP AST/S GOT U/L 14.0 36.0 28 FINAL Oziel Box * [place] [facility] [facility], [address] [facility] [id number] 0 08/09 CMP BUN mg/dL 7.0 17.0 17.0 FINAL Oziel Box * [place] [facility] [facility], [address] [facility] [id number] 0 08/09 CMP Calci um mg/dL 8.4 10.2 9.4 FINAL Oziel Box * [facility], [address] [facility] [id number] 0 08/09 CMP Chlor vipin mmol/L 96.0 107.0 106 FINAL zOiel Box * [facility], [address] [facility] [id number] 0 08/09 CMP CO2 mmol/L 22.0 30.0 [...] the 96 hour stability window. [facility], [address] [facility] [id number] 0 08/09 CMP Creat inine mg/dL 0.66 1.25 0.70 [facility], [address] [id number] 0 08/09 CMP GFR estim ate ml/min /1.73m ^2 90.4 GFR is calculate d using the CKD-EPI equation. [facility], [address] [id number] 0 08/09 CMP Gluco se mg/dL 74.0 100.0 87 FINAL Oziel Tilleyot a [facility], [address] [facility] [id number] 0 08/09 CMP Potas sium mmol/L 3.5 5.1 4.2 FINAL Oziel [facility], [address] [facility] [id number] 0 08/09 CMP Sodiu m mmol/L 137.0 145.0 139 FINAL Oziel [facility]illeyot [facility], [address] [id number] 0 08/09 CMP Bilir ubin, total mg/dL 0.2 1.3 0.3 FINAL Oziel Box * [place] [facility] [place], [address] [facility] [id number] 0 08/09 CMP Total prote in g/dL 6.3 8.2 6.7 FINAL Oziel Box * [place] [facility] [place], [address] [facility] [id number] 0 08/09 TSH w/ refle x to free T4 TSHR- v mIU/ml 0.47 4.68 0.74 FINAL Oziel Box * [place] [facility], [address] [facility] [id number] 0 02/13 CBC w/ auto diff WBC K/uL 3.0 8.9 4.7 FINAL [facility]iel FRE[facility] - [place], [address] [place] [id number] 0 02/13 CBC w/ auto diff HGB g/dL 11.3 15.2 10.4 Low FINAL [facility] - [place], [address] [place] [id number] 0 02/13 CBC w/ auto diff PLT K/uL 113.0 364.0 252 FINAL [facility] - [place], [address] [place] [id number] 0 02/13 CBC w/ auto diff Dave # (ANC) K/uL 1.6 6.6 2.4 FINAL [facility] - [place], [address] [place] [id number] 0 02/13 CBC w/ auto diff Dave % % 43.0 74.0 51.3 FINAL [facility] - [place], [address] [place] [id number] 0 02/13 CBC w/ auto diff IG % % 0.0 0.5 0.2 FINAL [facility] - [place], [address] [place] [id number] 0 02/13 CBC w/ auto diff IG # K/uL 0.0 0.03 0.01 FINAL [facility] - [place], [address] [place] [id number] 0 02/13 CBC w/ auto diff LY % % 14.0 41.0 33.5 FINAL [facility]iel [facility] - [place], [address] [place] [id number] 0 02/13 CBC w/ auto diff MO % % 6.0 15.0 8.8 FINAL [facility] - [place], [address] [place] [id number] 0 02/13 CBC w/ auto diff EO % % 0.0 7.0 5.6 FINAL Oizel [facility]REEMAN [facility] - [place], [address] [place] [id number] 0 02/13 CBC w/ auto diff BA % % 0.0 2.0 0.6 FINAL Oziel [facility] - [place], [address] [place] [id number] 0 02/13 CBC w/ auto diff LY # K/uL 0.4 3.6 1.6 FINAL [facility] - [place], [address] [place] [id number] 0 02/13 CBC w/ auto diff MO # K/uL 0.2 1.3 0.4 FINAL [facility] - [place], [address] [place] [id number] 0 02/13 CBC w/ auto diff EO # K/uL 0.0 0.6 0.3 FINAL [facility] - [place], [address] [place] [id number] 0 02/13 CBC w/ auto diff BA # K/uL 0.0 0.2 0.0 FINAL [facility] - [place], [address] [place] [id number] 0 02/13 CBC w/ auto diff NRBC % #/100W BC 0.0 0.2 0.0 FINAL [facility] - [place], [address] [place] [id number] 0 02/13 CBC w/ auto diff RBC M/uL 3.9 5.1 3.24 Low FINAL Oziel [facility] - [place], [address] [place] [id number] 0 02/13 CBC w/ auto diff HCT % 35.0 48.0 32.3 Low FINAL Oziel [facility] - [place], [address] [place] [id number] 0 02/13 CBC w/ auto diff MCV fL 80.0 104.0 99.7 FINAL [facility]iel [facility] - [place], [address] [place] [id number] 0 02/13 CBC w/ auto diff MCH pg 26.0 35.0 32.1 FINAL Oziel [facility] - [place], [address] [place] [id number] 0 02/13 CBC w/ auto diff MCHC g/dL 30.0 35.0 32.2 FINAL Oziel FRE[facility] - [place], [address] [place] [id number] 0 02/13 CBC w/ auto diff MPV fL 9.5 13.4 9.1 Low FINAL Oziel FRE[facility] - [place], [address] [place] [id number] 0 02/13 CBC w/ auto diff RDW % 11.4 16.1 13.70 FINAL Oziel FREEM[facility] - [place], [address] [place] [id number] 0 02/13 CMP Album in g/dL 3.5 5.0 3.5 FINAL Oziel Box * [place] [facility], [address] [facility] [id number] 0 02/13 CMP Alkal ine phosp hatas e U/L 36.0 125.0 75 FINAL Oziel Box * [place] [facility], [address] [facility] [id number] 0 02/13 CMP ALT/S GPT U/L 0.0 34.0 <4 Repeate d FINAL Oziel Box * [place] [facility] [place], [address] [facility] [id number] 0 02/13 CMP AST/S GOT U/L 14.0 36.0 17 FINAL Oziel Box * [place] [facility] [place], [address] [facility] [id number] 0 02/13 CMP BUN mg/dL 7.0 17.0 18.0 High FINAL [place]iel Card [place] [facility], [address] [facility] [id number] 0 02/13 CMP Calci um mg/dL 8.4 10.2 9.2 FINAL [place]iel Card [place] [facility], [address] [facility] [id number] 0 02/13 CMP Chlor vipin mmol/L 96.0 107.0 109 High FINAL [place] Card [place] [facility], [address] [facility] [id number] 0 02/13 CMP CO2 mmol/L 22.0 30.0 [...] hour stability window. FINAL Oziel FREEMAN [facility], [address] [facility] [id number] 0 02/13 CMP Creat inine mg/dL 0.66 1.25 0.80 FINAL [place]iel Card [place] [facility], [address] [facility] [id number] 0 02/13 CMP GFR estim ate ml/min /1.73m ^2 76.8 GFR is calculate d using the CKD-EPI equation. FINAL [place] Card [place] [facility], [address] [facility] [id number] 0 02/13 CMP Gluco se mg/dL 74.0 100.0 84 FINAL [place]iel Card [place] [facility], [address] [facility] [id number] 0 02/13 CMP Potas sium mmol/L 3.5 5.1 4.4 FINAL Oziel Box * [place] [facility] [place], [address] [facility] [id number] 0 02/13 CMP Sodiu m mmol/L 137.0 145.0 137 FINAL Oziel Box * [place], [address] [facility] [id number] 0 02/13 CMP Bilir ubin, total mg/dL 0.2 1.3 0.5 FINAL Oziel Box * [place], [address] [facility] [id number] 0 02/13 CMP Total prote in g/dL 6.3 8.2 6.2 Low FINAL Oziel Box * [place], [address] [facility] [id number] 0 04/03 [facility] [place] See ethylene oxide panelboard operator d 08/14 CMP Album in g/dL 3.5 5.0 3.7 FINAL Oziel Box * [facility] , [address] [facility] [id number] 0 08/14 CMP Alkal ine phosp hatas e U/L 36.0 125.0 68 FINAL Oziel Box * [place] [facility] , [address] [facility] [id number] 0 08/14 CMP ALT/S GPT U/L 0.0 34.0 10 FINAL Oziel Box * [place] [facility] , [address] [facility] [id number] 0 08/14 CMP AST/S GOT U/L 14.0 36.0 28 FINAL Oziel Box * [facility] , [address] [facility] [id number] 0 08/14 CMP BUN mg/dL 7.0 17.0 25.0 High FINAL Oziel Box * [facility] , [address] [facility] [id number] 0 08/14 CMP Calci um mg/dL 8.4 10.2 8.7 FINAL Oziel Box * [facility] , [address] [facility] [id number] 0 08/14 CMP Chlor vipin mmol/L 96.0 107.0 109 High FINAL Oziel Box * [facility] , [address] [facility] [facility] [address] [facility] [id number] 0 08/14 CMP CO2 mmol/L 22.0 30.0 [...] hour stability window. FINAL Oziel Box * [facility] , [address] [facility] [facility] [address] [facility] [id number] 0 08/14 CMP Creat inine mg/dL 0.66 1.25 0.90 FINAL Oziel Box * [facility] , [address] [facility] [id number] 0 08/14 CMP GFR estim ate ml/min /1.73m ^2 66.5 GFR is calculate d using the CKD-EPI equation. FINAL Oziel Box * [facility] , [address] [id number] 0 08/14 CMP Gluco se mg/dL 74.0 100.0 95 FINAL Oziel Box * [facility] , [address] [facility] [id number] 0 08/14 CMP Potas sium mmol/L 3.5 5.1 4.5 FINAL Oziel Box * [facility] , [address] [facility] [id number] 0 08/14 CMP Sodiu m mmol/L 137.0 145.0 137 FINAL Oziel Box * [facility] , [address] [facility] [id number] 0 08/14 CMP Bilir ubin, total mg/dL 0.2 1.3 0.8 FINAL Oziel Box * [facility] , [address] [facility] [id number] 0 08/14 CMP Total prote in g/dL 6.3 8.2 6.5 FINAL Oziel Box * [facility] , [address] [facility] [id number] 0 08/14 CBC w/ auto diff WBC K/uL 3.0 8.9 4.7 FINAL Oziel Box [place] [facility] , [address] [place] [id number] 0 08/14 CBC w/ auto diff HGB g/dL 11.3 15.2 11.5 FINAL Oziel Box [place] [facility] , [address] [place] [id number] 0 08/14 CBC w/ auto diff PLT K/uL 113.0 364.0 211 FINAL Oziel Box [place] [facility] , [address] [place] [id number] 0 08/14 CBC w/ auto diff Dave # (ANC) K/uL 1.6 6.6 2.9 FINAL Oziel Box [place] [facility] , [address] [place] [id number] 0 08/14 CBC w/ auto diff Dave % % 43.0 74.0 61.3 FINAL Oziel Box [place] [facility] , [address] [place] [id number] 0 08/14 CBC w/ auto diff IG % % 0.0 0.5 0.2 FINAL Oziel Box [place] [facility] , [address] [place] [id number] 0 08/14 CBC w/ auto diff IG # K/uL 0.0 0.03 0.01 FINAL Oziel Box [place] [facility] , [address] [place] [id number] 0 08/14 CBC w/ auto diff LY % % 14.0 41.0 25.6 FINAL Oziel Box [place] , [address] [place] [id number] 0 08/14 CBC w/ auto diff MO % % 6.0 15.0 8.7 FINAL Oziel Box [place] [facility] , [address] [place] [id number] 0 08/14 CBC w/ auto diff EO % % 0.0 7.0 3.8 FINAL Oziel Box [place] [facility] , [address] [place] [id number] 0 08/14 CBC w/ auto diff BA % % 0.0 2.0 0.4 FINAL Oziel Box [place] , [address] [place] [id number] 0 08/14 CBC w/ auto diff LY # K/uL 0.4 3.6 1.2 FINAL Oziel Box [place] [facility] , [address] [place] [id number] 0 08/14 CBC w/ auto diff MO # K/uL 0.2 1.3 0.4 FINAL Oziel Box [place] [facility] , [address] [place] [id number] 0 08/14 CBC w/ auto diff EO # K/uL 0.0 0.6 0.2 FINAL Oziel Box [place] [facility] , [address] [place] [id number] 0 08/14 CBC w/ auto diff BA # K/uL 0.0 0.2 0.0 FINAL Oziel Box [place] [facility] , [address] [place] [id number] 0 08/14 CBC w/ auto diff NRBC % #/100W BC 0.0 0.2 0.0 FINAL Oziel Box [place] [facility] , [address] [place] [id number] 0 08/14 CBC w/ auto diff RBC M/uL 3.9 5.1 3.60 Low FINAL Oziel Box [place] [facility] , [address] [place] [id number] 0 08/14 CBC w/ auto diff HCT % 35.0 48.0 35.2 FINAL Oziel Box [place] [facility] , [address] [place] [id number] 0 08/14 CBC w/ auto diff MCV fL 80.0 104.0 97.8 FINAL Oziel Box [place] [facility] , [address] [place] [id number] 0 08/14 CBC w/ auto diff MCH pg 26.0 35.0 31.9 FINAL [facility] , [address] [facility] [address] [facility] [id number] 0 08/14 CBC w/ auto diff MCHC g/dL 30.0 35.0 32.7 FINAL [facility] , [address] [facility] [address] [facility] [id number] 0 08/14 CBC w/ auto diff MPV fL 9.5 13.4 9.0 Low FINAL [facility] , [address] [facility] [address] [facility] [id number] 0 08/14 CBC w/ auto diff RDW % 11.4 16.1 13.60 FINAL [facility] , [address] [facility] [address] [facility] [id number] Medications Date Name Route Dose Frequency Instructions Start Date End Date Status Baclofen Oral daily act charles Vitamin [id number] Acid Oral 500 mcg-400 mcg daily active [...] concentration must be 0.3-1.2 mg/mL.Administ er using [id number] ining equipment and through an in-line 0.22 [...]
== END 2024-09-18 09:52 | disposition home or self-care (01) ==
LOC: ED 09:45
PROVIDERS: Emergency Provider Family Medicine; PCP Internal Medicine
DX: K12.0 Recurrent oral aphthae (principal); L71.0 Perioral dermatitis
CPT/HCPCS: 99283

== ENCOUNTER 2024-11-28 09:24 | Outpatient (CLI) | payer MEDICARE, SELFPAY ==
--- NOTE | 2024-11-28 09:45 | CRLHL7_ITS ---
For Patients: As a result of the Century Cures Act, medical imaging exams and procedure reports are released immediately into your electronic medical record. You may view this report before your referring provider. If you have questions, please contact your health care provider. DIGITAL DIAGNOSTIC BILATERAL MAMMOGRAM USING TOMOSYNTHESIS AND COMPUTER-AIDED DETECTION BILATERAL BREAST ULTRASOUND CLINICAL HISTORY: BILATERAL breast pain. COMPARISON: 12/29/2017, 12/21/2017, 12/15/2017. TECHNIQUE: Digital BILATERAL mammogram in four projections with computer-aided detection. Tomosynthesis was used in this interpretation. Real-time ultrasound imaging of BILATERAL breast with imaging documentation. BREAST COMPOSITION: The breasts are almost entirely fatty. FINDINGS: 3D CC/MLO BILATERAL mammogram images submitted. Biopsy clip on the LEFT. Benign calcifications bilaterally. No suspicious masses or architectural distortion. Targeted RIGHT breast ultrasound performed in the retroareolar region and targeted LEFT breast ultrasound performed at 3 o`clock 6 cm from the nipple. Normal breast tissue is present. No suspicious mass or fibrocystic change. IMPRESSION: No evidence of malignancy. RECOMMENDATIONS: Routine screening mammography. A lay language report of this examination will be provided to the patient. BI-RADS Category 2: Benign Dictated by Melquiades Drake MD @ 11/28/2024 12:14:44 PM jj/Dictated by: Melquiades Drake MD @ 11/28/2024 12:14:00 PM (Electronically Signed)
--- NOTE | 2024-11-28 10:15 | CRLHL7_ITS ---
For Patients: As a result of the Cures Act, medical imaging exams and procedure reports are released immediately into your electronic medical record. You may view this report before your referring provider. If you have questions, please contact your health care provider. SEE DIGITAL DIAGNOSTIC BILATERAL MAMMOGRAM PERFORMED SAME DAY CRL:marc tran/Dictated by: Melquiades Drake MD @ 11/28/2024 12:12:00 PM (Electronically Signed)
== END 2024-11-28 09:25 | disposition home or self-care (01) ==
LOC: MAMMO 09:25
PROVIDERS: PCP Internal Medicine; Visit Provider Internal Medicine
DX: N64.4 Mastodynia (principal)
CPT/HCPCS: 76642; 77066; G0279

== ENCOUNTER 2025-03-13 07:36 | Outpatient (CLI) | payer MEDICARE, SELFPAY | END 2025-03-13 07:37 | disposition home or self-care (01) | LOC: NFLDREF 07:37 | PROVIDERS: PCP Internal Medicine; Visit Provider Family Medicine | DX: N30.00 Acute cystitis without hematuria (principal); B96.89 Other specified bacterial agents as the cause of diseases classified elsewhere | CPT/HCPCS: 87086 ==